=== PATIENT | female | born 1980 | race Caucasian/White ===

== ENCOUNTER 2017-10-10 15:44 | Emergency (ER) | payer MEDICAID, SELFPAY ==
[2017-10-10 15:44] VITALS: BP 142/87; PULSE 96; RESP 15; TEMP 36.3; O2SAT 99; BMI 31.6
--- NOTE | 2017-10-10 16:11 | CT_ITS ---
CT Head or Brain W/O Contrast INDICATION: MIGRAINE X2 WEEKS COMPARISON: None TECHNIQUE: Noncontrast axial CT examination of the brain. Radiation dose optimization applied. FINDINGS: The ventricular system is normal in size and symmetric. The cortical sulci, sylvian fissures, and basal cisterns are well seen. The crooks-white matter junction is distinct. There is no evidence of acute intracranial hemorrhage, mass effect, midline shift, or abnormal extra-axial collection. The calvarium is intact and the visualized paranasal sinuses and mastoid air cells are clear. CT/Brain/Head without Contrast IMPRESSION: No evidence of acute intracranial abnormality by noncontrast CT. at 1746 Reported and signed by: Марина Kirkland MD Electronically Signed: Марина Kirkland MD at 16:44 EST Tel , Service support ,
[2017-10-10] MEDS: 0.9% Normal Saline 1,000 ML 999 ML IV (16:36)
[2017-10-10] MEDS: Ketorolac 30 MG/ML Syringe IV (16:36)
--- NOTE | 2017-10-10 16:44 | ED.DCSUM_ITS ---
- ER Visit Summary Date of Service: 10/10/17 Chief Complaint: Headache History of Present Illness: The patient is a 36 F who goes to the [facility]. She reports that she has a headache began 2 weeks ago. Is gradually gotten worse. She describes a sharp, throbbing pain is diffuse over her entire head. Pain is 10 out of 10 at worst and 8 out of 10 currently. Is worsened by light or sound. It is relieved by being alone, sleep, and hot baths. When asked about recent trauma to her head patient relates that her cat jumped on her head approximately 1 week ago and she has a a scab on her scalp. Patient volunteers that she is dealing with a lot of stress. However, she denies any suicidal thoughts. On review of systems patient does complain of dysuria and frequency. Physical Examination: Vitals: Stable. Afebrile. Neck: Supple with no meningismus. Neuro: Cranial nerves II through XII are intact, 5 out of 5 strength throughout , normal sensation to light touch throughout. Normal gait. General: A&O x 3. NAD. Cardiovascular exam: Regular rate and rhythm, no murmur, rub or gallop. Respiratory exam: Clear to auscultation bilaterally. No wheezes or stridor. Abdominal exam: Soft, nontender, nondistended, normal bowel sounds. No peritoneal signs. Extremity: No clubbing, cyanosis, or edema. Test Results: Urinalysis was negative. test was negative. CT brain is normal. Emergency Department Course and Treatment: She had an IV placed. She was given a liter bolus of normal saline and Toradol IV. Her headache has improved, but not resolved. Treatment Plan: Patient will be discharged with Zofran. She already has Tylenol and naproxen at home. She is instructed to push fluids. Follow-up the [facility] in 1 week if not improving. Disposition: To home in improved and stable condition. Impression: 1. Cephalgia. This note was generated with [employer] dictation software. It may contain incorrect words, spelling, and punctuation that were not noted in review of the chart prior to signing ED Disposition - Plan for ED Patient: Chief Complaint: Headache Instructions: ED Cephalgia Unspecified Prescriptions: Ondansetron [Zofran Odt] 4 mg PO Q8H PRN PRN #10 tablet PRN Reason: Nausea Referrals: [facility],Daniela Alcazar [Primary Care Provider] - 1 Week if not improving
[2017-10-10 16:50] LABS: Bacteria 0 SEEN /hpf (None Seen); Mucous, Urine 0 SEEN /hpf (<or=2+); Red Blood Cells-Urine 0 SEEN /hpf (0-5); White Blood Cells 0 SEEN /hpf (0-5)
[2017-10-10 17:07] LABS: Color, Urine Yellow (Yellow); Glucose, Dipstick Normal (Normal); Ketone-Dipstick Negative (Negative); Leukocyte Esterase-Dipstick 25 /ul (Negative); Nitrite-Dipstick Negative (Negative); Occult Blood-Urine Negative /ul (Negative); Protein-Dipstick Negative (Negative); Urine Bilirubin Dipstick Negative (Negative); Urine Clarity Clear (Clear); Urine Urobilinogen Normal (Normal)
[2017-10-10 17:09] LABS: Internal QC Validated? YES +Cl - CLEAR BKGD; Pregnancy, Urine Negative Negative
[2017-10-10 17:16] LABS: Squamous Epithelial Cells - UA 0-5 SEEN /hpf (5-10)
[2017-10-10] MEDS: proCHLORPERazine 10 MG/2 ML Vial IV (17:37)
[2017-10-10] MEDS: DiphenhydrAMINE 50 MG/ML Syringe IV (17:37)
[2017-10-10 18:26] VITALS: PULSE 95; RESP 16; O2SAT 98
== END 2017-10-10 18:28 | disposition home or self-care (01) ==
LOC: ED 16:23
PROVIDERS: Emergency Provider Emergency Medicine
DX: R51 Headache (principal); R11.2 Nausea with vomiting, unspecified; R30.0 Dysuria; R05 Cough; R35.0 Frequency of micturition; F41.9 Anxiety disorder, unspecified; F32.9 Major depressive disorder, single episode, unspecified; F17.200 Nicotine dependence, unspecified, uncomplicated
CPT/HCPCS: 70450; 81001; 81025; 96361; 96374; 96375; 99283; J7030; A4216

== ENCOUNTER 2017-10-27 13:16 | Emergency (ER) | payer MEDICAID, SELFPAY ==
[2017-10-27 13:17] VITALS: BP 126/91; PULSE 69; RESP 14; TEMP 37.1; O2SAT 97; BMI 31.1
--- NOTE | 2017-10-27 13:31 | ED.RN ---
OTHER SYMPTOMS INCLUDE ACHY ABD PAIN, RUNNY NOSE, COUGH. 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 THINKS SYMPTOMS ARE RELATED. HAS BEEN TAKING ZOFRAN SINCE TUESDAY WHEN SYMPTOMS STARTED WITHOUT RELIEF.
--- NOTE | 2017-10-27 13:47 | ED.DCSUM_ITS ---
- ER Visit Summary Date of Service: 10/27/17 Chief Complaint: Nausea with bilateral flank pain and increased bowel movements but not diarrhea History of Present Illness: The patient is a 36 F history of depression and anxiety. Patient has never had any prior abdominal surgery. States that she has not felt well for last 4 days with a cough. Denies any shortness of breath. No hemoptysis. States that she is having bowel frequency but not diarrhea or melena. She denies any dysuria but thinks her urine may be cloudy. No vaginal bleeding or discharge. Her last menstrual period was within the last week. She denies any fever. She denies abdominal trauma. States that both flanks feeling comfortable. Physical Examination: Well-appearing young female. Vital signs are stable afebrile. Pulse ox 97% no hypoxia. She is in no acute distress. She does not look septic or toxic. H EENT exam unremarkable. Moist wheeze membranes. Posterior pharynx normal. Tympanic membranes normal. Neck nontender no lymphadenopathy. Trachea midline. Lungs clear to auscultation bilaterally. Heart is regular rate and rhythm no murmur. Abdomen is soft and nontender. Nondistended normal bowel sounds no peritoneal signs. The right upper right lower quadrants are unremarkable. No hernias or masses. Moving all 4 extremities. Neurovascularly intact. Calves without edema or cords. Neurologically awake alert without focal deficits. NIH is 0. Psychologically she seems depressed but not suicidal or homicidal. Test Results: Is normal no signs of infection or blood. Urine test negative. Emergency Department Course and Treatment: Patient looks well with very nondescript bilateral flank pain. Treatment Plan: Repeat exam the patient is doing very well at 1450 and will be discharged home. Patient did request a CAT scan which I explained to her she absolutely did not need it was not necessary. She can follow-up with her primary care physician. Disposition: Discharge Impression: Abdominal Pain uncertain etiology On chronic depression This note was generated with [employer] dictation software. It may contain incorrect words, spelling, and punctuation that were not noted in review of the chart prior to signing ED Disposition - Plan for ED Patient: Chief Complaint: Abd Pain Referrals: Katharina Baron,Daniela Alcazar [NON-STAFF] -
[2017-10-27 14:13] LABS: Bacteria 0 SEEN /hpf (None Seen); Mucous, Urine 0 SEEN /hpf (<or=2+); Red Blood Cells-Urine 0 SEEN /hpf (0-5); White Blood Cells 0 SEEN /hpf (0-5)
[2017-10-27] MEDS: Ondansetron ODT 4 MG Tablet PO (14:16)
[2017-10-27 14:17] LABS: Color, Urine Yellow (Yellow); Glucose, Dipstick Normal (Normal); Ketone-Dipstick Negative (Negative); Leukocyte Esterase-Dipstick Negative /ul (Negative); Nitrite-Dipstick Negative (Negative); Occult Blood-Urine Negative /ul (Negative); Protein-Dipstick Negative (Negative); Urine Bilirubin Dipstick Negative (Negative); Urine Clarity Clear (Clear); Urine Urobilinogen Normal (Normal)
[2017-10-27 14:24] LABS: Internal QC Validated? YES +Cl - CLEAR BKGD; Pregnancy, Urine Negative Negative
[2017-10-27 14:31] LABS: Squamous Epithelial Cells - UA 0-5 SEEN /hpf (5-10)
--- NOTE | 2017-10-27 14:52 | ED.DEP ---
ED Disposition - Plan for ED Patient: Disposition: Home or Assisted Living Chief Complaint: Abd Pain Instructions: ED Abdominal Pain Unkn Cause Referrals: Daniela Shields [NON-STAFF] - 3-5 Days if not improving Additional Instructions: Call and follow-up with your primary care physician.
== END 2017-10-27 15:02 | disposition home or self-care (01) ==
PROVIDERS: Emergency Provider Emergency Medicine; Family Provider Nurse Practitioner Family; PCP Nurse Practitioner Family
DX: R10.9 Unspecified abdominal pain (principal); K59.00 Constipation, unspecified; Z72.0 Tobacco use; F41.9 Anxiety disorder, unspecified
CPT/HCPCS: 81001; 81025; 99282

== ENCOUNTER 2017-12-14 15:30 | Emergency (ER) | payer MEDICAID, SELFPAY ==
[2017-12-14 15:31] VITALS: BP 127/82; PULSE 75; RESP 16; TEMP 36.8; O2SAT 97; BMI 30.6
[2017-12-14 17:17] LABS: Bacteria 0 SEEN /hpf (None Seen); Mucous, Urine 0 SEEN /hpf (<or=2+); Red Blood Cells-Urine 0 SEEN /hpf (0-5); White Blood Cells 0 SEEN /hpf (0-5)
[2017-12-14 17:22] LABS: Color, Urine Yellow (Yellow); Glucose, Dipstick Normal (Normal); Ketone-Dipstick Negative (Negative); Leukocyte Esterase-Dipstick Negative /ul (Negative); Nitrite-Dipstick Negative (Negative); Occult Blood-Urine Negative /ul (Negative); Protein-Dipstick Negative (Negative); Urine Bilirubin Dipstick Negative (Negative); Urine Clarity Sl. Cloudy (Clear); Urine Urobilinogen Normal (Normal)
--- NOTE | 2017-12-14 17:27 | CT_ITS ---
STUDY: CT MAXILLOFACIAL SINUSES REASON FOR EXAM: Female, 37 years old. Sinusitis. RADIATION DOSAGE (If Supplied By Facility): CTDIvol = ( 29.38 ) mGy, DLP = ( 385.84 ) mGycm TECHNIQUE: The patient was scanned in a multi detector CT scanner. High resolution axial imaging was performed without the administration of intravenous contrast material. Sagittal and coronal images were reconstructed. Individualized dose optimization techniques were used for this CT. COMPARISON: None. FINDINGS: FRONTAL SINUSES: Normal aeration, without mucosal inflammatory disease. ETHMOIDAL SINUSES: Normal aeration, without mucosal inflammatory disease. MAXILLARY SINUSES: Normal aeration, without mucosal inflammatory disease. SPHENOIDAL SINUSES: Normal aeration, without mucosal inflammatory disease. There is patency of the bilateral maxillary infundibuli with normal uncinate processes, ethmoid bullae, and hiatus semilunaris. Normal bilateral middle turbinates. There is hypertrophy of the bilateral inferior nasal turbinates. There is a right sided nasal septal deviation with a right sided nasal septal spur. There is narrowing of the bilateral nasal airways. The visualized osseous structures are normal. The visualized bilateral orbital contents are normal. There is enlargement of the tonsils and adenoids. CT/Sinus/Facial Bone IMPRESSION: The paranasal sinuses are clear. Mucosal hypertrophy of the turbinates. Nasal septal deviation. Narrowing of the nasal air passageway. Electronically Signed: Derrick James MD at 18:35 EDT , Service support ,
[2017-12-14 17:39] LABS: Squamous Epithelial Cells - UA 0-5 SEEN /hpf (5-10)
[2017-12-14] MEDS: Ketorolac 30 MG/ML Syringe IV (18:13)
[2017-12-14] MEDS: proCHLORPERazine 10 MG/2 ML Vial IV (18:13)
[2017-12-14] MEDS: DiphenhydrAMINE 50 MG/ML Syringe IV (18:13)
[2017-12-14] MEDS: 0.9% Normal Saline 1,000 ML 999 ML IV (18:14)
--- NOTE | 2017-12-14 18:54 | ED.DCSUM_ITS ---
- ER Visit Summary Date of Service: 12/14/17 Chief Complaint: Headache and nasal pain History of Present Illness: The patient is a 37 F who goes to the [facility]. Patient reports that she has pain to the bridge of her nose that began yesterday. Is a sharp, throbbing pain that has now spread over the frontal area of her head. Zeta 10 severity. Is worsened by touching it, light , or cold periods relieved by nothing. She denies any trauma. No fall or MVA. Patient reports that she is currently on Bactrim for a sinus infection. She began this after being seen at the urgent care on December 07. Physical Examination: Vitals: Stable. Afebrile. General: Well-nourished and well-developed. Head: Normocephalic atraumatic. Neck: Supple, no lymphadenopathy. No JVD. Nontender. Cardiovascular: Regular rate and rhythm. No murmurs. Respiratory: No respiratory distress. Clear to auscultation bilaterally. Abdominal: Soft, nontender, nondistended, normal bowel sounds. No guarding, rebound, or peritoneal signs. Back: Nontender. Extremities: Nontender, no edema. Skin: Normal color, no rash. Neurologic: Alert and oriented ?3. Cranial nerves II through XII are intact. Normal strength and sensation. Psych: Normal affect. Test Results: CT sinuses shows mucosal hypertrophy of the turbinates. Nasal septal deviation. Paranasal sinuses are clear. Emergency Department Course and Treatment: Patient had an IV placed. She is given a dose of Toradol, Compazine, and Benadryl IV. She is resting comfortably. Treatment Plan: I instructed the patient to stop her Bactrim as she does not have sinusitis. She will be placed on Flonase. Instructed to follow-up the [facility] in 1 week if not improving. Disposition: To home in improved and stable condition. Impression: 1. Cephalgia, acute. This note was generated with [employer] dictation software. It may contain incorrect words, spelling, and punctuation that were not noted in review of the chart prior to signing ED Disposition - Plan for ED Patient: Disposition: Home or Assisted Living Chief Complaint: Other, Pain/Inj Instructions: ED Cephalgia Unspecified Prescriptions: Fluticasone 0.05% [Flonase Nasal [place]] 1 spray NASAL DAILY #1 bottle Referrals: Mallorie Alexis, [employer] [Primary Care Provider] - 1 Week if not improving
[2017-12-14 19:18] VITALS: BP 142/66; PULSE 108; RESP 16; O2SAT 96
== END 2017-12-14 19:19 | disposition home or self-care (01) ==
PROVIDERS: Emergency Provider Emergency Medicine; Family Provider Nurse Practitioner Family; PCP Nurse Practitioner Family
DX: R51 Headache (principal); J34.3 Hypertrophy of nasal turbinates; J34.2 Deviated nasal septum; G47.33 Obstructive sleep apnea (adult) (pediatric); Z72.0 Tobacco use; R11.0 Nausea; J02.9 Acute pharyngitis, unspecified; R35.0 Frequency of micturition
CPT/HCPCS: 70486; 81001; 96361; 96374; 96375; 99283; J7030; A4216

== ENCOUNTER 2018-01-13 20:28 | Emergency (ER) | payer MEDICAID, SELFPAY ==
[2018-01-13 20:28] VITALS: BP 157/91; PULSE 98; RESP 20; TEMP 36.4; O2SAT 98; BMI 29.7
--- NOTE | 2018-01-13 21:18 | CT_ITS ---
STUDY: CT ABDOMEN AND PELVIS WITH CONTRAST REASON FOR EXAM: Female, 37 years old. Epigastric pain. Hiatal hernia. RADIATION DOSAGE (If Supplied By Facility): CTDIvol = ( 11.35 ) mGy, DLP = ( 936.02 ) mGycm TECHNIQUE: Transaxial images were obtained from the dome of the diaphragm to the symphysis pubis without oral contrast. 100 ml of Isovue 300 contrast was administered. Sagittal and coronal images were reconstructed. Individualized dose optimization techniques were used for this CT. COMPARISON: 10/25/2015. FINDINGS: The visualized lung bases are unremarkable. The visualized portions of the heart are within normal limits. There is decreased attenuation of the liver consistent with steatosis. There is hepatomegaly. Normal gallbladder and extrahepatic biliary system. Normal spleen. Normal pancreas. Normal bilateral adrenal glands. Normal right kidney. Normal left kidney. No definite renal or ureteral stones are seen. There is no hydronephrosis on either side. Evaluation of the GI tract is limited by absence of oral contrast. Cannot exclude stomach wall thickening. No dilated loops of bowel or evidence for obstruction. Cannot exclude segmental thickening of the gillette of the small or large bowel. Cannot exclude enteritis or colitis. Moderate diffuse fecal retention. Appendix within normal limits. Normal abdominal aorta. Normal inferior vena cava. Normal retroperitoneum. Normal urinary bladder. Normal visualized uterus. There is a 2.6 cm left ovarian cyst. Normal abdominal wall. Normal osseous structures. CT/Abdomen/Pelvis W IV Cont ONLY IMPRESSION: No definite acute abnormality. Electronically Signed: John Lincoln MD at 23:05 EDT , Service support ,
[2018-01-13 21:42] LABS: Absolute Lymphocyte Count 2.25 X10^3/ul (0.83-4.51); Absolute Neutrophil Count 5.5 X10^3/uL (2.0-7.7); Basophil# 0.03 X10^3/uL; Basophil% 0.3 % (0-1); Eosinophil# 0.24 X10^3/uL; Eosinophils% 2.8 % (0-5); Hematocrit 40.1 % (37-47); Hemoglobin 13.2 g/dl (12.0-15.0); Lymphocyte # 2.25 X10^3/ul (4.0); Mean Corp Hgb Conc 32.9 g/gl (32-36); Mean Corpuscular Hgb 28.6 pg (27.0-32.0); Mean Corpuscular Volume 86.8 fL (81-99); Mean Platelet Vol. 10.5 fl (6.2-12.0); Monocyte# 0.66 X10^3/uL; Monocyte% 7.6 % (0-10); Neutrophil # 5.48 X10^3/uL (2.7-7.7); Neutrophil % 63.2 % (47-70); Platelet Count 218 K/mm3 (150-450); RBC Distribution Width CV 12.8 % (11.6-14.6); Red Blood Count 4.62 M/mm3 (4.2-5.4); White Blood Count 8.7 K/mm3 (4.4-11.0)
[2018-01-13 21:45] LABS: POSITIVE COUNT NO; POSITIVE DIFFERENTIAL NO; POSITIVE MORPHOLOGY NO
[2018-01-13] MEDS: Ondansetron 4 MG/2 ML Vial IV (21:48)
[2018-01-13] MEDS: fentaNYL 100 MCG/2 ML Ampul 50 MCG IV (21:48)
[2018-01-13] MEDS: 0.9% Normal Saline 1,000 ML 1000 ML IV (21:48)
[2018-01-13 21:58] LABS: ALB/GLOB Ratio 1.2 RATIO (0.9-2.4); AST(SGOT) 21 U/L (15-37); Alanine Aminotransfer ALT/SGPT 26 U/L (13-56); Albumin, Serum 3.6 g/dL (3.2-5.0); Alkaline Phosphatase 63 U/L (45-117); Anion Gap 6 (5-15); BUN 15 mg/dL (7-18); BUN/Creat Ratio 20.2 RATIO (10-20); Calcium,Total 8.6 mg/dL (8.5-10.1); Chloride 111 mmol/L (98-107); Creatinine, Serum 0.74 mg/dL (0.55-1.02); EST Glomerular Filtration Rate 93 mL/min (>60); Est Glom Filt Rate - Afr Amer 112 mL/min (>60); Estimated Creatinine Clearance 99.26 ml/min; Globulin 3.1 g/dL (2.2-4.2); Glucose 77 mg/dL (74-106); Lipase 80 U/L (73-393); Potassium 3.5 mmol/L (3.5-5.1); Protein, Total 6.7 g/dL (6.4-8.2); Sodium Level 142 mmol/L (136-145)
[2018-01-13 22:13] LABS: Pregnancy, Serum, hCG Quali. NEGATIVE Negative (0-9 Nonpreg)
--- NOTE | 2018-01-13 23:10 | ED.DCSUM_ITS ---
- ER Visit Summary Date of Service: 01/13/18 Chief Complaint: [] Abdominal pain History of Present Illness: The patient is a 37 F [] complaining of abdominal pain in the epigastric area. Reports nausea denies vomiting denies loose stool. Patient has an unusual affect and has a slight delay in answering simple questions. Patient reports noncompliance with her psychiatric medications in the last 5 months. Patient reports she is being treated clinically for a hiatal hernia although she does not have a definitive diagnosis of this. Denies possibility of . Physical Examination: [] Afebrile, vital signs stable. 37-year-old female no acute distress. Cardiovascular exam is regular rate and rhythm. Lungs are clear to auscultation. Abdomen is soft with mild epigastric tenderness. No guarding or rebound. Remainder of exam is unremarkable. Test Results: [] CBC, BMP, LFTs within normal limits. Lipase normal. HCG serum negative. CT abdomen/pelvis with IV contrast was negative. Emergency Department Course and Treatment: [] Given intravenous Zofran, fentanyl, normal saline bolus. On serial exam patient had improvement of symptoms. Treatment Plan: [] Follow-up with PCP. Disposition: [] Discharge, stable. Impression: [] Abdominal pain, unknown etiology This note was generated with [employer] dictation software. It may contain incorrect words, spelling, and punctuation that were not noted in review of the chart prior to signing ED Disposition - Plan for ED Patient: Disposition: Home or Assisted Living Chief Complaint: Abd Pain Instructions: ED Abdominal Pain Unkn Cause Referrals: Katharina Baron,Daniela Alcazar [Primary Care Provider] -
--- NOTE | 2018-01-13 23:11 | ED.DEP ---
ED Disposition - Plan for ED Patient: Disposition: Home or Assisted Living Chief Complaint: Abd Pain Instructions: ED Abdominal Pain Unkn Cause Referrals: Daniela Shields [Primary Care Provider] -
[2018-01-13 23:23] VITALS: PULSE 102; RESP 16; O2SAT 99
== END 2018-01-13 23:34 | disposition home or self-care (01) ==
PROVIDERS: Emergency Provider Emergency Medicine
DX: R10.9 Unspecified abdominal pain (principal); R11.0 Nausea; F32.9 Major depressive disorder, single episode, unspecified; Z91.14 Patient's other noncompliance with medication regimen; Z72.0 Tobacco use
CPT/HCPCS: 74177; 80053; 83690; 84703; 85025; 96374; 96375; 99284; J7030; Q9967; A4216; J2405

== ENCOUNTER 2018-01-14 14:06 | Emergency (ER) | payer MEDICAID, SELFPAY ==
--- NOTE | 2018-01-14 14:07 | ED.RN ---
PT DEMANDED BATHROOM AND ADULT DIAPER BEFORE TRIAGE, ARRIVAL VIA EMS. ABD PAIN, SEEN HERE YESTERDAY, THINKS SHE'S CONSTIPATION. TOOK STOOL SOFTENER 1.5 HR AGO.
[2018-01-14 14:13] VITALS: BP 155/100; PULSE 72; RESP 16; TEMP 36.6; O2SAT 99; BMI 30.3
--- NOTE | 2018-01-14 14:46 | NURSING ---
DURING TRIAGE PT STATES I NEED A URINE SAMPLE AND A DIAPER PT ASSISTED TO THE BATHROOM, ADULT DIAPER GIVEN. PT INSISTS ON DOOR OPEN A TRASHCAN WIDTH WHILE USING BATHROOM. WHEN PT DONE IN BATHROOM, ASSISTED BACK TO HER ROOM BY JACKSON ONOFRE. TRIAGE CONTINUED. THROUGHOUT TRIAGE PT STATES I HAVE ANXIETY AND DEPRESSION AND AM EXTREMELY STRESSED PT REPEATED THAT STATEMENT MULTIPLE TIMES THROUGHOUT TRIAGE AND WHILE ATTEMPTING TO COMPLETE PT'S MEDICATION LIST. WHILE JACKSON ONOFRE IS CHECKING PT'S MEDICATION LIST, PT STATES I WENT OFF OF MY LEXAPRO COLD TURKEY 4 MONTHS AGO PT THEN ASKS TO GO TO THE BATHROOM. STATES WILL YOU STAND OUTSIDE OF THE DOOR THE WHOLE TIME I'M IN THERE JACKSON ONOFRE STATES YES PT THEN GOES TO THE BATHROOM, CONTINUES TO INSIST ON DOOR CRACKED WITH THE TRASHCAN. PT THEN WALKED BACK TO ROOM. UPON ENTERING THE ROOM, JACKSON ONOFRE STATES ARE YOU HAVING ANY THOUGHTS OR PLANS TO HURT YOURSELF OR ANYONE ELSE PT STATES CAN I BE HONEST? JACKSON ONOFRE STATES YES, PLEASE BE HONEST PT STATES YES, OTHER PEOPLE, I HAVE A LOT OF THOUGHTS, BUT I DON'T HAVE A PLAN JACKSON ONOFRE STATES WHY DID YOU TAKE YOURSELF OFF YOUR LEXAPRO? PT STATES I WAS GOING TO [facility]ENT[facility] TWICE A WEEK AND THOUGHT I COULD DO IT WITH GOD'S HELP
--- NOTE | 2018-01-14 15:13 | EKG12_ITS ---
Test Reason : ABDOMINAL PAIN Blood Pressure : / mmHG Vent. Rate : 073 BPM Atrial Rate : 073 BPM P-R Int : 140 ms QRS Dur : 082 ms QT Int : 400 ms P-R-T Axes : 059 043 -32 degrees QTc Int : 440 ms Normal sinus rhythm with sinus arrhythmia Nonspecific ST and T wave abnormality Abnormal ECG Confirmed by GABRIEL KHAN, KYM ([id number]), editor school photograph KIRBY BRAR ([id number]) on 01/17/2018 1:13:30 PM Referred By: CARY Confirmed By:KYM RIOS MD
[2018-01-14] MEDS: 0.9% Normal Saline 1,000 ML 1000 ML IV (15:44)
[2018-01-14] MEDS: Escitalopram Oxalate 20 MG Tablet PO (15:44)
[2018-01-14 15:52] VITALS: BP 152/79; BP 155/95; BP 164/102; PULSE 74; PULSE 78; PULSE 84
--- NOTE | 2018-01-14 15:56 | EKG12_ITS ---
Test Reason : ABDOMINAL PAIN Blood Pressure : / mmHG Vent. Rate : 098 BPM Atrial Rate : 098 BPM P-R Int : 140 ms QRS Dur : 084 ms QT Int : 372 ms P-R-T Axes : 049 022 013 degrees QTc Int : 474 ms Normal sinus rhythm with sinus arrhythmia Normal ECG Confirmed by GABRIEL KHAN, KYM ([id number]), editor & co founder KIRBY BRAR ([id number]) on 01/17/2018 1:13:45 PM Referred By: CARY Confirmed By:KYM RIOS MD
[2018-01-14 15:58] VITALS: PULSE 84
--- NOTE | 2018-01-14 16:04 | NURSING ---
dr levine aware that pt told this rn i walked in front of a semi the other day. I just dont care about the consequences. pt states that her mother yrs ago and mothers day is tomor. her dad 20 yrs ago this wk. pt states she is very stressed right now and is off meds. states he will consult crisis
[2018-01-14 16:11] LABS: Absolute Lymphocyte Count 1.43 X10^3/ul (0.83-4.51); Absolute Neutrophil Count 11.5 X10^3/uL (2.0-7.7); Basophil# 0.03 X10^3/uL; Basophil% 0.2 % (0-1); Eosinophil# 0.08 X10^3/uL; Eosinophils% 0.6 % (0-5); Hematocrit 42.2 % (37-47); Hemoglobin 13.9 g/dl (12.0-15.0); Lymphocyte # 1.43 X10^3/ul (4.0); Lymphocyte % 10.4 % (19-41); Mean Corp Hgb Conc 32.9 g/gl (32-36); Mean Corpuscular Hgb 28.6 pg (27.0-32.0); Mean Corpuscular Volume 86.8 fL (81-99); Monocyte# 0.66 X10^3/uL; Monocyte% 4.8 % (0-10); Neutrophil % 83.8 % (47-70); Platelet Count 259 K/mm3 (150-450); RBC Distribution Width CV 12.9 % (11.6-14.6); Red Blood Count 4.86 M/mm3 (4.2-5.4); White Blood Count 13.7 K/mm3 (4.4-11.0)
[2018-01-14 16:12] LABS: POSITIVE COUNT NO; POSITIVE DIFFERENTIAL NO; POSITIVE MORPHOLOGY NO
[2018-01-14 16:16] LABS: ALB/GLOB Ratio 1.2 RATIO (0.9-2.4); AST(SGOT) 23 U/L (15-37); Alanine Aminotransfer ALT/SGPT 32 U/L (13-56); Albumin, Serum 4.1 g/dL (3.2-5.0); Alkaline Phosphatase 71 U/L (45-117); Anion Gap 9 (5-15); BUN 8 mg/dL (7-18); BUN/Creat Ratio 10.4 RATIO (10-20); Chloride 108 mmol/L (98-107); Creatinine, Serum 0.77 mg/dL (0.55-1.02); EST Glomerular Filtration Rate 89 mL/min (>60); Est Glom Filt Rate - Afr Amer 107 mL/min (>60); Estimated Creatinine Clearance 95.39 ml/min; Globulin 3.5 g/dL (2.2-4.2); Glucose 89 mg/dL (74-106); Lipase 78 U/L (73-393); Potassium 3.8 mmol/L (3.5-5.1); Protein, Total 7.6 g/dL (6.4-8.2); Sodium Level 142 mmol/L (136-145)
[2018-01-14 16:23] LABS: Pregnancy, Serum, hCG Quali. NEGATIVE Negative (0-9 Nonpreg)
[2018-01-14 16:25] LABS: Bacteria 0 SEEN /hpf (None Seen); Color, Urine Yellow (Yellow); Glucose, Dipstick Normal (Normal); Ketone-Dipstick Negative (Negative); Leukocyte Esterase-Dipstick Negative /ul (Negative); Mucous, Urine 0 SEEN /hpf (<or=2+); Nitrite-Dipstick Negative (Negative); Occult Blood-Urine Negative /ul (Negative); Protein-Dipstick Negative (Negative); Red Blood Cells-Urine 0 SEEN /hpf (0-5); Specific Gravity, Urine 1.005 (1.002-1.030); Urine Bilirubin Dipstick Negative (Negative); Urine Clarity Clear (Clear); Urine Urobilinogen Normal (Normal); White Blood Cells 0 SEEN /hpf (0-5)
[2018-01-14 16:29] LABS: Amphetamine Urine VISTA NEGATIVE (<1000 ng/mL); Barbiturate Urine VISTA NEGATIVE (< 200 ng/mL); Benzodiazepine Urine VISTA NEGATIVE (< 200 ng/mL); Cocaine Urine VISTA NEGATIVE (< 300 ng/mL); Ecstacy Urine VISTA NEGATIVE (< 500 ng/mL); Methadone Urine VISTA NEGATIVE (< 300 ng/mL); PCP Urine VISTA NEGATIVE (< 25 ng/mL); THC Urine VISTA NEGATIVE (< 50 ng/mL); Vista UDS pH Range 5
[2018-01-14 16:32] LABS: Squamous Epithelial Cells - UA 0-5 SEEN /hpf (5-10)
[2018-01-14 16:44] LABS: Alcohol, Blood (Medical)-Serum < 3.0 mg/dL
[2018-01-14 17:02] VITALS: BP 143/80; PULSE 78; RESP 16; O2SAT 100
--- NOTE | 2018-01-14 17:30 | RAD_ITS ---
STUDY: X-RAY CHEST REASON FOR EXAM: Female, 37 years old. Abdominal pain. TECHNIQUE: Frontal and lateral views of the chest. COMPARISON: 06/26/2016. FINDINGS: The lungs are clear and expanded. There is no demonstrated pleural abnormality. Normal size heart. Normal mediastinum and jennifer. Normal visualized pulmonary arteries. Normal visualized aortic arch and descending thoracic aorta. Normal visualized thoracic spine. Normal visualized ribs, clavicles, and shoulders. There is no demonstrated abnormality of the visualized soft tissue structures of the upper abdomen. RAD/Chest PA and Lateral IMPRESSION: Normal x-ray examination of the chest. Electronically Signed: John Lincoln MD at 18:16 EDT , Service support ,
[2018-01-14] MEDS: Naproxen 500 MG Tablet PO (18:18)
--- NOTE | 2018-01-14 18:44 | ED.DCSUM_ITS ---
- ER Visit Summary Date of Service: 01/14/18 Chief Complaint: Lightheaded and dizzy History of Present Illness: The patient is a 37 F who presents with lightheadedness and dizziness. She was also seen yesterday for abdominal pain and nausea. She had laboratory studies and a CT at that time which were normal. History is difficult as the patient is very tangential. She also complains of significantly increased stress and anxiety and believes that this may be contributing to her symptoms. She complains of intermittent diarrhea and constipation. She notes that she is taking her Lexapro. She states that she was placed on treatment for a hiatal hernia recently. Physical Examination: Afebrile vitals are unremarkable Moist mucous membranes Heart regular rate and rhythm Lungs are clear Abdomen soft nondistended she has some mild diffuse tenderness Alert and oriented with no focal or lateralizing neurological deficits Patient has a bizarre affect Test Results: EKG shows sinus rhythm at a rate of 98. Chest x-ray is normal. CBC CMP lipase urinalysis notable only for white blood cell count 13.7. Alcohol negative. Drug screen negative. negative. Emergency Department Course and Treatment: Patient was exhibiting bizarre behavior. She asked for an adult diaper on arrival. When she went to the restroom with an open door to the hallway she would not allow the door to be closed completely and held this open with a trash can. She is very tangential in her history. I do believe there is a psychiatric component to her physical symptoms. The patient actually was in agreement with this and notes that she has been under significantly increased stress which she believes is contributing. She has been noncompliant with her Lexapro. She does have a leukocytosis today. However she is not febrile or tachycardic. Urinalysis was normal chest x-ray was normal. She has benign abdominal exam and had a CT of the abdomen yesterday. She also told the nurse that she was suicidal and a couple of days ago walked out in front of a semitruck. We will have crisis evaluate the patient. I do believe she will require transfer to a psychiatric facility. Treatment Plan: [] Disposition: Transfer pending crisis evaluation Impression: Dizziness Depression Suicidal ideation This note was generated with [employer] software. It may contain incorrect words, spelling, and punctuation that were not noted in review of the chart prior to signing ED Disposition - Plan for ED Patient: Chief Complaint: Abd Pain Referrals: Katharina Baron,Daniela Alcazar [Primary Care Provider] -
--- NOTE | 2018-01-14 19:00 | ED.RN ---
CALLED [facility], THE CONCRETE ANALYST STATED SHE WILL GIVE THE BOILERMAKER'S ASSISTANT STAFF A CALL.
--- NOTE | 2018-01-14 19:06 | ED.RN ---
DELLA FROM [facility] CALLED AND STATED HE WILL BE HERE SHORTLY.
--- NOTE | 2018-01-14 19:45 | ED.RN ---
CHERELLE FROM [facility] IS HERE.
--- NOTE | 2018-01-14 20:24 | ED.DEP ---
ED Disposition - Plan for ED Patient: Chief Complaint: Abd Pain Instructions: ED Depression, ED Stress React Referrals: [facility],Daniela Alcazar [Primary Care Provider] - Counseling,Center [GROUP OF PHYSICIANS] -
[2018-01-14 20:37] VITALS: BP 149/98; PULSE 77; RESP 16
== END 2018-01-14 20:38 | disposition home or self-care (01) ==
PROVIDERS: Emergency Provider Emergency Medicine
DX: R42 Dizziness and giddiness (principal); R45.851 Suicidal ideations; F32.9 Major depressive disorder, single episode, unspecified; F41.9 Anxiety disorder, unspecified; K59.00 Constipation, unspecified; R19.7 Diarrhea, unspecified; R11.0 Nausea; R10.9 Unspecified abdominal pain; Z72.0 Tobacco use; Z91.14 Patient's other noncompliance with medication regimen
CPT/HCPCS: 71046; 80053; 80307; 80320; 81001; 83690; 84703; 85025; 93005; 96360; 96361; 99285; J7030; G0480

== ENCOUNTER 2018-01-30 17:20 | Emergency (ER) | payer MEDICAID, SELFPAY ==
[2018-01-30 17:27] VITALS: BP 141/87; PULSE 91; RESP 14; TEMP 36.4; O2SAT 99; BMI 29.7
--- NOTE | 2018-01-30 17:52 | ED.VISSUMM ---
- ER Visit Summary Date of Service: 01/30/18 Chief Complaint: Heat Exhaustion History of Present Illness: The patient is a 37 F with concern for heat exhaustion. Patient states that her apartment is very very hot over the past 2 days. She states that she has been lightheaded and dizzy. She has had 3 episodes of diarrhea. She has also had some mild abdominal cramping. She does describe some mild nausea. She states she has never had symptoms like this before. She denies headache or visual change. She denies any recent change in medication. She denies any recent sick contacts. She has had no chest pain or trouble breathing. Physical Examination: Vital signs reviewed General: Well-nourished, well-developed Head: Normocephalic, atraumatic Eyes: Pupils equal and reactive, extraocular muscles intact Neck, supple, no lymphadenopathy Heart: Regular rate and rhythm Respiratory: No distress, clear bilaterally Abdomen: Soft, nontender, nondistended, no peritoneal signs Back: Nontender Extremities: Nontender, no edema, no cords Skin: Normal color no rash Neuro: Alert and oriented, no focal or lateralizing deficits Test Results: [] Emergency Department Course and Treatment: The patient had no mental status change. Patient was sent that she is not febrile here. She has a normal examination. I did obtain screening labs and she was hydrated. She declined antiemetics. Labs are unremarkable. The patient is improved after hydration. She will be discharged home. Treatment Plan: [] Disposition: Charge Impression: 1. Heat illness This note was generated with [employer] dictation software. It may contain incorrect words, spelling, and punctuation that were not noted in review of the chart prior to signing ED Disposition - Plan for ED Patient: Disposition: Home or Assisted Living Chief Complaint: Nausea/Vomiting/Diarrhea Instructions: ED Exhaustion Heat Referrals: Katharina Baron,Daniela Alcazar [NON-STAFF] -
[2018-01-30] MEDS: 0.9% Normal Saline 1,000 ML 1000 ML IV (18:24)
[2018-01-30 18:27] LABS: Absolute Lymphocyte Count 1.47 X10^3/ul (0.83-4.51); Absolute Neutrophil Count 8.1 X10^3/uL (2.0-7.7); Basophil# 0.03 X10^3/uL; Basophil% 0.3 % (0-1); Eosinophil# 0.19 X10^3/uL; Eosinophils% 1.8 % (0-5); Hematocrit 44.5 % (37-47); Lymphocyte # 1.47 X10^3/ul (4.0); Lymphocyte % 14.1 % (19-41); Mean Corp Hgb Conc 33.7 g/gl (32-36); Mean Corpuscular Hgb 29.2 pg (27.0-32.0); Mean Corpuscular Volume 86.7 fL (81-99); Monocyte# 0.59 X10^3/uL; Monocyte% 5.7 % (0-10); Neutrophil # 8.14 X10^3/uL (2.7-7.7); Platelet Count 222 K/mm3 (150-450); RBC Distribution Width SD 40.7 fl (35.1-43.9); Red Blood Count 5.13 M/mm3 (4.2-5.4); White Blood Count 10.4 K/mm3 (4.4-11.0)
[2018-01-30 18:28] LABS: POSITIVE COUNT NO; POSITIVE DIFFERENTIAL NO; POSITIVE MORPHOLOGY NO
[2018-01-30 18:45] LABS: Anion Gap 6 (5-15); BUN 9 mg/dL (7-18); BUN/Creat Ratio 10.5 RATIO (10-20); Calcium,Total 9.3 mg/dL (8.5-10.1); Chloride 107 mmol/L (98-107); Creatinine, Serum 0.85 mg/dL (0.55-1.02); EST Glomerular Filtration Rate 79 mL/min (>60); Est Glom Filt Rate - Afr Amer 95 mL/min (>60); Estimated Creatinine Clearance 86.41 ml/min; Glucose 92 mg/dL (74-106); Potassium 4.1 mmol/L (3.5-5.1); Sodium Level 138 mmol/L (136-145)
[2018-01-30 19:41] VITALS: PULSE 88; RESP 16
== END 2018-01-30 19:41 | disposition home or self-care (01) ==
LOC: ED 18:38
PROVIDERS: Emergency Provider Emergency Medicine; Family Provider Nurse Practitioner Family; PCP Nurse Practitioner Family
DX: T67.8XXA Other effects of heat and light, initial encounter (principal); Z72.0 Tobacco use; Z79.899 Other long term (current) drug therapy
CPT/HCPCS: 80048; 85025; 99285; J7030

== ENCOUNTER 2018-02-01 17:55 | Emergency (ER) | payer MEDICAID, SELFPAY ==
[2018-02-01 17:57] VITALS: BP 115/75; PULSE 83; RESP 14; TEMP 36.6; O2SAT 97; BMI 30.4
--- NOTE | 2018-02-01 18:26 | EKG12_ITS ---
Test Reason : SOB Blood Pressure : / mmHG Vent. Rate : 074 BPM Atrial Rate : 074 BPM P-R Int : 150 ms QRS Dur : 084 ms QT Int : 392 ms P-R-T Axes : 058 033 015 degrees QTc Int : 435 ms Normal sinus rhythm Normal ECG Confirmed by MESSI BELLO ([id number]), editor city KIRBY BRAR ([id number]) on 02/13/2018 5:34:34 PM Referred By: STEPHANIE Confirmed By:MESSI BELLO
--- NOTE | 2018-02-01 18:28 | ED.VISSUMM ---
- ER Visit Summary Date of Service: 02/01/18 Chief Complaint: Short of breath History of Present Illness: The patient is a 37 F with shortness of breath for several days. The patient says she also feels exhausted and lightheaded. She says she was in the ED 2 days ago for heat exhaustion and received IV fluids. She also says she stopped her antidepressants last week. She denies any suicidal or homicidal thoughts. Physical Examination: Afebrile and vital signs unremarkable. Patient has a depressed mood and blunted affect. Alert and oriented. Normal concentration and thought processes. Head and neck atraumatic. Cranial nerves grossly intact. No focal or lateralizing neurologic abnormalities grossly. Heart regular. Lungs show wheezing in all carballo. Abdomen soft. Skin appears normal. No rash. Test Results: EKG and chest x-ray pending. Emergency Department Course and Treatment: Patient had an inconsistent history and multiple complaints. She did have some wheezing and so I will check an EKG and chest x-ray. She was given a breathing treatment. I suspect that some of her symptoms may be from discontinuing her antidepressant treatment last week. She says she stopped this because she had a rash on her legs. That rash has resolved. Patient denies that her discontinuation is playing a role in her symptoms. I was subsequently notified that the patient had called the crisis counselor. They had recommended outpatient follow-up. She said that she did not want to wait for outpatient follow-up and told them that she was coming to the emergency department so that she could see someone today. She was told that this was not appropriate. I will thoroughly evaluate her, but I suspect that there is an aspect of secondary gain. EKG showed sinus rhythm at a rate of 74. No acute abnormalities. Chest x-ray showed no acute abnormalities. Patient will be treated with a course of Zyrtec for allergic rhinitis. I advised her to follow-up with her crisis counselor. Return for any suicidal or homicidal thoughts. Treatment Plan: As above Disposition: Discharge Impression: 1. Allergic rhinitis 2. Medication nonadherence This note was generated with [employer] software. It may contain incorrect words, spelling, and punctuation that were not noted in review of the chart prior to signing ED Disposition - Plan for ED Patient: Chief Complaint: Shortness of Breath Referrals: Mallorie Alexis NP-C [Primary Care Provider] -
--- NOTE | 2018-02-01 18:30 | RAD_ITS ---
STUDY: X-RAY CHEST REASON FOR EXAM: Female, 37 years old. Shortness of breath TECHNIQUE: Single frontal view COMPARISON: January 14, 2018 FINDINGS: The lungs are clear and expanded. There is no demonstrated pleural abnormality. Normal size heart. Normal mediastinum and jennifer. Normal visualized pulmonary arteries. Normal visualized aortic arch and descending thoracic aorta. Normal visualized thoracic spine. Normal visualized ribs, clavicles, and shoulders. There is no demonstrated abnormality of the visualized soft tissue structures of the upper abdomen. RAD/Chest 1 View (Portable) IMPRESSION: Normal x-ray examination of the chest. Electronically Signed: Tommie Hay DO at 19:26 EDT Tel [phone], Service support ,
[2018-02-01] MEDS: hydrOXYzine PAM 25 MG Capsule PO (18:40)
[2018-02-01 18:49] VITALS: PULSE 76; RESP 12
[2018-02-01] MEDS: Ipratropium/Albuterol Sulfate 3 ML AMPUL.NEB INHALATION (18:49)
--- NOTE | 2018-02-01 20:04 | ED.DEP ---
ED Disposition - Plan for ED Patient: Chief Complaint: Shortness of Breath Instructions: Allergy Medications Prescriptions: Cetirizine HCl [Zyrtec] 10 mg PO DAILY #30 tab Referrals: Mallorie Alexis NP-C [Primary Care Provider] - Additional Instructions: follow up with crisis counselor
[2018-02-01 20:24] VITALS: RESP 18
== END 2018-02-01 20:24 | disposition home or self-care (01) ==
LOC: ED 18:22
PROVIDERS: Emergency Provider Emergency Medicine; Family Provider Nurse Practitioner Family; PCP Nurse Practitioner Family
DX: J30.9 Allergic rhinitis, unspecified (principal); Z91.14 Patient's other noncompliance with medication regimen; F41.9 Anxiety disorder, unspecified; F32.9 Major depressive disorder, single episode, unspecified; Z72.0 Tobacco use
CPT/HCPCS: 71045; 93005; 94640; 99283

== ENCOUNTER 2018-02-03 16:22 | Emergency (ER) | payer MEDICAID, SELFPAY ==
[2018-02-03 16:23] VITALS: BP 150/92; PULSE 85; RESP 16; TEMP 36.7; O2SAT 98; BMI 31.2
--- NOTE | 2018-02-03 16:54 | EKG12_ITS ---
Test Reason : DIZZINESS Blood Pressure : / mmHG Vent. Rate : 076 BPM Atrial Rate : 076 BPM P-R Int : 156 ms QRS Dur : 084 ms QT Int : 386 ms P-R-T Axes : 059 022 004 degrees QTc Int : 434 ms Normal sinus rhythm with sinus arrhythmia Normal ECG Confirmed by MESSI BELLO ([id number]), video news editor KIRBY BRAR ([id number]) on 02/13/2018 6:13:20 PM Referred By: SHWETA Confirmed By:MESSI BELLO
[2018-02-03 17:08] LABS: Bacteria 0 SEEN /hpf (None Seen); Mucous, Urine 0 SEEN /hpf (<or=2+); White Blood Cells 0 SEEN /hpf (0-5)
[2018-02-03 17:11] LABS: Color, Urine Yellow (Yellow); Glucose, Dipstick Normal (Normal); Ketone-Dipstick Negative (Negative); Leukocyte Esterase-Dipstick Negative /ul (Negative); Nitrite-Dipstick Negative (Negative); Occult Blood-Urine 25 /ul (Negative); Protein-Dipstick Negative (Negative); Specific Gravity, Urine 1.005 (1.002-1.030); Urine Bilirubin Dipstick Negative (Negative); Urine Clarity Sl. Cloudy (Clear); Urine Urobilinogen Normal (Normal); Urine pH 6.5 (5.0 - 8.0)
[2018-02-03 17:17] VITALS: BP 118/76; BP 130/84; BP 131/88; PULSE 67; PULSE 71; PULSE 77; RESP 12; O2SAT 99
[2018-02-03] MEDS: 0.9% Normal Saline 1,000 ML 1000 ML IV (17:21)
[2018-02-03 17:22] LABS: Internal QC Validated? YES +Cl - CLEAR BKGD; Pregnancy, Urine Negative Negative
[2018-02-03 17:27] LABS: Bedside Glucose 82 mg/dL (70-110)
[2018-02-03 17:28] LABS: Red Blood Cells-Urine 0-5 SEEN /hpf (0-5); Squamous Epithelial Cells - UA 0-5 SEEN /hpf (5-10)
[2018-02-03 17:29] LABS: Amorphous Sediment 1+ URATE
[2018-02-03 17:32] LABS: Absolute Lymphocyte Count 1.66 X10^3/ul (0.83-4.51); Absolute Neutrophil Count 6.4 X10^3/uL (2.0-7.7); Basophil# 0.03 X10^3/uL; Basophil% 0.3 % (0-1); Eosinophil# 0.24 X10^3/uL; Eosinophils% 2.7 % (0-5); Hematocrit 42.1 % (37-47); Hemoglobin 13.9 g/dl (12.0-15.0); Lymphocyte # 1.66 X10^3/ul (4.0); Lymphocyte % 18.7 % (19-41); Mean Corpuscular Hgb 28.6 pg (27.0-32.0); Mean Corpuscular Volume 86.6 fL (81-99); Mean Platelet Vol. 10.7 fl (6.2-12.0); Monocyte# 0.58 X10^3/uL; Monocyte% 6.5 % (0-10); Neutrophil # 6.35 X10^3/uL (2.7-7.7); Neutrophil % 71.6 % (47-70); POSITIVE COUNT NO; POSITIVE DIFFERENTIAL NO; POSITIVE MORPHOLOGY NO; Platelet Count 222 K/mm3 (150-450); RBC Distribution Width CV 12.6 % (11.6-14.6); RBC Distribution Width SD 40.6 fl (35.1-43.9); Red Blood Count 4.86 M/mm3 (4.2-5.4); White Blood Count 8.9 K/mm3 (4.4-11.0)
[2018-02-03 17:54] LABS: AST(SGOT) 10 U/L (15-37); Alanine Aminotransfer ALT/SGPT 19 U/L (13-56); Albumin, Serum 3.8 g/dL (3.2-5.0); Alkaline Phosphatase 76 U/L (45-117); Anion Gap 8 (5-15); BUN 11 mg/dL (7-18); BUN/Creat Ratio 14.1 RATIO (10-20); Bilirubin, Direct 0.09 mg/dL (0.00-0.30); Calcium,Total 8.9 mg/dL (8.5-10.1); Chloride 108 mmol/L (98-107); Creatinine, Serum 0.78 mg/dL (0.55-1.02); EST Glomerular Filtration Rate 87 mL/min (>60); Est Glom Filt Rate - Afr Amer 105 mL/min (>60); Estimated Creatinine Clearance 94.17 ml/min; Globulin 3.5 g/dL (2.2-4.2); Glucose 83 mg/dL (74-106); Lipase 122 U/L (73-393); Potassium 3.8 mmol/L (3.5-5.1); Protein, Total 7.3 g/dL (6.4-8.2); Sodium Level 142 mmol/L (136-145)
[2018-02-03 18:54] LABS: Internal QC Validated? YES +Cl - CLEAR BKGD; Monotest Negative (Negative)
[2018-02-03 18:55] LABS: Record Kit Lot#, Mono 13171517
--- NOTE | 2018-02-03 18:58 | ED.VISSUMM ---
- ER Visit Summary Date of Service: 02/03/18 Chief Complaint: Lightheaded History of Present Illness: The patient is a 37 F who states she has been lightheaded for the past 5 days. He was initially thought to be secondary to the heat. Patient has been drinking more fluids without improvement. She is also complaining of upper abdominal pain and nausea. She has had a cough for the last 1 month with white sputum. Patient was also on Lexapro for approximately 10 days but then developed a rash. She stopped her medications 7 days ago. Patient has been seen in the ER twice in the last week with similar complaints. Laboratory evaluation was unremarkable. Physical Examination: Blood pressure is 150/92, otherwise vitals are normal. Patient is sitting upright in bed. She makes poor eye contact and has a flat affect. Heart is regular rate and rhythm. Lung sounds are clear. Abdomen is soft with focal tenderness in epigastric region. She is active bowel sounds throughout. There is no guarding or rebound. Neuro exam reveals no focal deficits with good strength and sensation on testing. Test Results: EKG is sinus at 76 with no sign of acute ischemia. CBC and chemistry studies are normal. LFTs and lipase are normal. Urine is normal. Patency test negative. Bourbon screen is negative. Emergency Department Course and Treatment: Patient was given fluids. Orthostatic vital signs were ordered. Nursing staff states that she felt lightheaded when standing, but her orthostatic vital signs are unremarkable. On repeat evaluation she is tolerating p.o. I explained to her that I am unable to explain why she is feeling lightheaded, but her vital signs and workup have been unremarkable. She is complaining of epigastric pain and states that the color of her stool has changed recently. She has been on Pepcid for quite some time. She will be treated with Prevacid instead to see if that helps her epigastric pain. She is encouraged to follow-up with her primary care physician. Treatment Plan: [] Disposition: Discharge Impression: Dizziness, uncertain etiology This note was generated with [employer] dictation software. It may contain incorrect words, spelling, and punctuation that were not noted in review of the chart prior to signing ED Disposition - Plan for ED Patient: Chief Complaint: General Illness Referrals: Mallorie Alexis NP-C [Primary Care Provider] -
--- NOTE | 2018-02-03 19:00 | ED.DEP ---
ED Disposition - Plan for ED Patient: Disposition: Home or Assisted Living Chief Complaint: General Illness Instructions: ED Dizziness [facility] Prescriptions: Lansoprazole [Prevacid] 15 mg PO DAILY #30 capsule Referrals: Mallorie Alexis NONFARM ANIMAL CARETAKER-C [Primary Care Provider] - As soon as possible
[2018-02-03 19:06] VITALS: BP 133/80; PULSE 78; RESP 16; O2SAT 100
== END 2018-02-03 19:11 | disposition home or self-care (01) ==
PROVIDERS: Emergency Provider Emergency Medicine; Family Provider Nurse Practitioner Family; PCP Nurse Practitioner Family
DX: R42 Dizziness and giddiness (principal); K21.9 Gastro-esophageal reflux disease without esophagitis; Z72.0 Tobacco use
CPT/HCPCS: 36415; 80048; 80076; 81001; 81025; 82962; 83690; 85025; 86308; 93005; 96360; 96361; 99285; J7030; A4216

== ENCOUNTER 2018-03-03 04:52 | Emergency (ER) | payer MEDICAID, SELFPAY ==
[2018-03-03 04:55] VITALS: O2SAT 98
[2018-03-03 04:56] VITALS: BP 138/85; PULSE 78; RESP 18; TEMP 36.6; O2SAT 98; BMI 32.1
--- NOTE | 2018-03-03 05:06 | RAD_ITS ---
STUDY: X-RAY CHEST REASON FOR EXAM: Female, 37 years old. Cough TECHNIQUE: Frontal and lateral views of the chest. COMPARISON: None. FINDINGS: The lungs are clear and expanded. There is no demonstrated pleural abnormality. Normal size heart. Normal mediastinum and jennifer. Normal visualized pulmonary arteries. Normal visualized aortic arch and descending thoracic aorta. Normal visualized thoracic spine. Normal visualized ribs, clavicles, and shoulders. There is no demonstrated abnormality of the visualized soft tissue structures of the upper abdomen. RAD/Chest PA and Lateral IMPRESSION: Normal x-ray examination of the chest. Electronically Signed: Cedric Hou MD at 6:44 EDT Tel , Service support ,
--- NOTE | 2018-03-03 05:11 | ED.VISSUMM ---
- ER Visit Summary Date of Service: 03/03/18 Chief Complaint: Cough History of Present Illness: The patient is a 37 F 2 week history of productive cough. No fevers. Denies sick contacts. Tobacco history. Wheezing. No history of asthma or COPD. Seasonal allergies that causes wheezing. Does have an inhaler. States symptoms not improving therefore get tired of it and came here. She is brought by EMS. Denies vomiting. This evening states drinks 3 beers earlier, around midnight took Tessalon Perles. States concern of the mixture. History of chronic back pain with sciatica. States takes naproxen. History of reflux on medications. Denies vomiting or melena. Patient ambulated into the ED from EMS. Physical Examination: General: Alert and oriented ?3, no acute distress HEENT: Normocephalic, atraumatic. Moist mucosa membranes Neck: supple, nontender. Cardiovascular: Regular rate and rhythm, no murmurs Respiratory: Mild expiratory wheeze on the right side, no distress, no rales or rhonchi. Abdomen: Soft, nontender, nondistended Extremities: Nontender, no edema, pulses intact ?4 Neuro: no focal neurological deficits. Test Results: Chest x-ray: No acute process Emergency Department Course and Treatment: Patient vitals stable. Mild wheeze on exam, DuoNeb treatment improved her symptoms. Chest x-ray negative. Discussed viral syndrome. Tobacco cessation discussed. Patient no respiratory depression on evaluation for concerns of her alcohol and Tessalon intake. She is reassured. Discussed with patient follow-up with her PCP for reevaluation. All questions were answered. Treatment Plan: [] Disposition: Discharge Impression: Viral upper respiratory infection This note was generated with [employer] dictation software. It may contain incorrect words, spelling, and punctuation that were not noted in review of the chart prior to signing ED Disposition - Plan for ED Patient: Disposition: Home or Assisted Living Chief Complaint: Cough Diagnosis: Viral upper respiratory tract infection with cough Instructions: ED Upper Resp Infec No Abx Tx Prescriptions: Albuterol Inhaler [Ventolin Hfa] 1 - 2 puff INHALATION Q4H PRN PRN #1 inhaler PRN Reason: Wheezing Referrals: Mallorie Alexis NP-C [Primary Care Provider] - 3-5 Days
[2018-03-03] MEDS: Ipratropium/Albuterol Sulfate 3 ML AMPUL.NEB INHALATION (05:13)
[2018-03-03 05:16] VITALS: PULSE 95; RESP 20
[2018-03-03 06:22] VITALS: RESP 18
== END 2018-03-03 06:23 | disposition home or self-care (01) ==
PROVIDERS: Emergency Provider Emergency Medicine; Family Provider Nurse Practitioner Family; PCP Nurse Practitioner Family
DX: J06.9 Acute upper respiratory infection, unspecified (principal); K21.9 Gastro-esophageal reflux disease without esophagitis; G47.33 Obstructive sleep apnea (adult) (pediatric); G89.29 Other chronic pain; M54.30 Sciatica, unspecified side; Z72.0 Tobacco use
CPT/HCPCS: 71046; 94640; 99284

== ENCOUNTER 2018-03-12 21:56 | Emergency (ER) | payer MEDICAID, SELFPAY ==
[2018-03-12 22:02] VITALS: BP 120/69; PULSE 75; RESP 14; TEMP 36.6; O2SAT 98; BMI 33.5
--- NOTE | 2018-03-12 22:30 | RAD_ITS ---
STUDY: X-RAY CHEST REASON FOR EXAM: Female, 37 years old. Shortness of breath TECHNIQUE: Frontal view of the chest COMPARISON: 03/03/2018 FINDINGS: The lungs are clear. There are no pleural effusions. There is no pneumothorax. The heart is normal in size. The visualized osseous structures are within normal limits. RAD/Chest 1 View (Portable) IMPRESSION: No acute thoracic pathology. Electronically Signed: Karson Vieira, at 22:39 EDT Tel , Service support ,
--- NOTE | 2018-03-12 22:45 | RAD_ITS ---
STUDY: X-RAY - PELVIS AND LEFT HIP REASON FOR EXAM: Female, 37 years old. Pain, no known injury TECHNIQUE: Radiological exam, hip, unilateral, with pelvis when performed; 2 or 3 views. COMPARISON: None. FINDINGS: There is a non-specific bowel gas pattern. Normal visualized soft tissue structures. Normal bilateral iliac wings, sacroiliac joints and visualized sacrum. Normal bilateral superior and inferior pubic rami. Normal pubic symphysis. Normal bilateral ischial tuberosities. Normal visualized femoral head. Normal acetabulum. Normal hip joint. RAD/Hip 2-3 Views with Pelvis IMPRESSION: Normal x-ray examination of the pelvis and hip. Electronically Signed: Job Cao MD at 23:23 EDT , Service support ,
[2018-03-12 22:50] VITALS: RESP 16; O2SAT 98
--- NOTE | 2018-03-12 22:54 | ED.RN ---
PT RETURNS TO WAITING ROOM FROM RADIOLOGY. PT GIVEN ICE PACK FOR HIP AND TISSUES REQUESTED. WILL CONTINUE TO MONITOR.
--- NOTE | 2018-03-13 00:15 | DCINST.ED_ITS ---
ED Disposition - Plan for ED Patient: Chief Complaint: Shortness of Breath Instructions: ED Sciatica Prescriptions: Benzonatate [Tessalon Perle] 200 mg PO TID PRN PRN #20 capsule PRN Reason: Cough Cyclobenzaprine [Flexeril] 10 mg PO TID PRN #20 tablet PRN Reason: Muscle Spasm Referrals: Mallorie Alexis, FILER METAL PATTERNS-C [Primary Care Provider] -
[2018-03-13 00:24] VITALS: BP 131/82; PULSE 75; RESP 16; O2SAT 99
--- NOTE | 2018-03-13 06:23 | ED.VISSUMM ---
- ER Visit Summary Date of Service: 03/13/18 Chief Complaint: Left hip pain History of Present Illness: The patient is a 37 F presenting with left hip pain. She states this has been ongoing for the past 2 weeks. She has seen a chiropractor and states that is not helping. She states her chiropractor told her that her hip was out of place. She has been taking naproxen at home. Pain is in her left lower back radiating to her left hip. She has had no bowel or bladder incontinence. No numbness or weakness. No fever. She states she has also had a cough for the past week. She states she is wheezing in the morning only. She has a history of seasonal allergies. She denies other complaints. Physical Examination: Vitals are stable. Patient is afebrile. Alert no acute distress. HEENT exam is unremarkable. Neck is supple. Lungs are clear and equal bilaterally. Heart is regular rate and rhythm. Extremities left lumbar paraspinal muscle tenderness, straight leg raise positive at 30? on the left Skin is warm and dry. No focal neurologic deficit. Normal strength and sensation Remainder of exam is unremarkable. Emergency Department Course and Treatment: Patient declined pain medication in the emergency department. X-ray of the chest and left hip show no acute process. She is given a prescription for Flexeril and advised to continue naproxen. She is given Tessalon. Advised to follow-up with her primary care physician. Advised return to ED if worsening complaints. Disposition: Discharge home Impression: Sciatica, viral syndrome This note was generated with [employer] dictation software. It may contain incorrect words, spelling, and punctuation that were not noted in review of the chart prior to signing ED Disposition - Plan for ED Patient: Disposition: Home or Assisted Living Chief Complaint: Shortness of Breath Instructions: ED Sciatica Prescriptions: Benzonatate [Tessalon Perle] 200 mg PO TID PRN PRN #20 capsule PRN Reason: Cough Cyclobenzaprine [Flexeril] 10 mg PO TID PRN #20 tablet PRN Reason: Muscle Spasm Referrals: Mallorie Alexis, CLERICAL WAREHOUSEMAN-C [Primary Care Provider] -
--- NOTE | 2018-03-13 06:26 | ED.DCSUM_ITS ---
- ER Visit Summary Date of Service: 03/13/18 Chief Complaint: Left hip pain History of Present Illness: The patient is a 37 F presenting with left hip pain. She states this has been ongoing for the past 2 weeks. She has seen a chiropractor and states that is not helping. She states her chiropractor told her that her hip was out of place. She has been taking naproxen at home. Pain is in her left lower back radiating to her left hip. She has had no bowel or bladder incontinence. No numbness or weakness. No fever. She states she has also had a cough for the past week. She states she is wheezing in the morning only. She has a history of seasonal allergies. She denies other complaints. Physical Examination: Vitals are stable. Patient is afebrile. Alert no acute distress. HEENT exam is unremarkable. Neck is supple. Lungs are clear and equal bilaterally. Heart is regular rate and rhythm. Extremities left lumbar paraspinal muscle tenderness, straight leg raise positive at 30? on the left Skin is warm and dry. No focal neurologic deficit. Normal strength and sensation Remainder of exam is unremarkable. Emergency Department Course and Treatment: Patient declined pain medication in the emergency department. X-ray of the chest and left hip show no acute process. She is given a prescription for Flexeril and advised to continue naproxen. She is given Tessalon. Advised to follow-up with her primary care physician. Advised return to ED if worsening complaints. Disposition: Discharge home Impression: Sciatica, viral syndrome This note was generated with [employer] dictation software. It may contain incorrect words, spelling, and punctuation that were not noted in review of the chart prior to signing ED Disposition - Plan for ED Patient: Disposition: Home or Assisted Living Chief Complaint: Shortness of Breath Instructions: ED Sciatica Prescriptions: Benzonatate [Tessalon Perle] 200 mg PO TID PRN PRN #20 capsule PRN Reason: Cough Cyclobenzaprine [Flexeril] 10 mg PO TID PRN #20 tablet PRN Reason: Muscle Spasm Referrals: Mallorie Alexis, DIRECTOR PROCESS ENGINEERING-C [Primary Care Provider] -
== END 2018-03-13 00:28 | disposition home or self-care (01) ==
LOC: ED 03-13 00:16
PROVIDERS: Emergency Provider Emergency Medicine; Family Provider Nurse Practitioner Family; PCP Nurse Practitioner Family
DX: M54.32 Sciatica, left side (principal); B34.9 Viral infection, unspecified; M41.9 Scoliosis, unspecified
CPT/HCPCS: 71045; 73502; 94760; 99282

== ENCOUNTER 2018-03-17 09:03 | Emergency (ER) | payer MEDICAID, SELFPAY ==
[2018-03-17 09:05] VITALS: BP 123/76; PULSE 79; RESP 14; TEMP 36.8; O2SAT 95; BMI 31.4
--- NOTE | 2018-03-17 09:23 | ED.VISSUMM ---
- ER Visit Summary Date of Service: 03/17/18 Chief Complaint: Lightheadedness, shortness of breath, dysuria History of Present Illness: The patient is a 37 F who presents with the above chief complaints that have been getting worse over the past 4 days. Patient states she feels like she is lightheaded when she stands up. Patient states he feels like she might pass out. Patient denies any spinning sensation. Patient denies any headaches. Patient denies any nausea or vomiting. Patient also admits to some shortness of breath. Patient admits to a cough with some clear sputum. Patient admits to subjective chills but denies any fevers. Patient denies any chest pain. Patient also admits to some dysuria. Patient states she went to an urgent care and had a urinalysis done which was normal. Patient admits to some bilateral flank pain. Physical Examination: Vital signs are stable. Patient is afebrile. Patient is in no acute distress. Oral mucosa is pink and moist. Neck is supple. Trachea is midline. There is no JVD noted. Heart was regular rate and rhythm. Lungs are clear and equal bilaterally. Abdomen is soft. There is some mild flank tenderness bilaterally. There is no CVA tenderness. There is no rebound or guarding noted. Cranial nerves II through XII are intact. There are no focal motor or sensory deficits noted. The remaining physical exam is within normal limits. Test Results: CBC, basic metabolic profile, urinalysis, and chest x-ray were obtained were all within normal limits. Emergency Department Course and Treatment: Orthostatic vital signs were within normal limits. Patient was instructed to follow-up with her [facility] physician in 5-7 days. Patient was instructed to continue her outpatient follow-up visits with her desktop publishing specialist as scheduled. Patient understood and was agreeable with the plan. All questions were answered. Disposition: Discharged home Impression: General weakness This note was generated with [employer] dictation software. It may contain incorrect words, spelling, and punctuation that were not noted in review of the chart prior to signing ED Disposition - Plan for ED Patient: Disposition: Home or Assisted Living Chief Complaint: General Illness Diagnosis: General weakness Instructions: ED Weakness [facility] Referrals: Mallorie Alexis NP-C [Primary Care Provider] -
--- NOTE | 2018-03-17 09:26 | ED.DCSUM_ITS ---
- ER Visit Summary Date of Service: 03/17/18 Chief Complaint: Lightheadedness, shortness of breath, dysuria History of Present Illness: The patient is a 37 F who presents with the above chief complaints that have been getting worse over the past 4 days. Patient states she feels like she is lightheaded when she stands up. Patient states he feels like she might pass out. Patient denies any spinning sensation. Patient denies any headaches. Patient denies any nausea or vomiting. Patient also admits to some shortness of breath. Patient admits to a cough with some clear sputum. Patient admits to subjective chills but denies any fevers. Patient denies any chest pain. Patient also admits to some dysuria. Patient states she went to an urgent care and had a urinalysis done which was normal. Patient admits to some bilateral flank pain. Physical Examination: Vital signs are stable. Patient is afebrile. Patient is in no acute distress. Oral mucosa is pink and moist. Neck is supple. Trachea is midline. There is no JVD noted. Heart was regular rate and rhythm. Lungs are clear and equal bilaterally. Abdomen is soft. There is some mild flank tenderness bilaterally. There is no CVA tenderness. There is no rebound or guarding noted. Cranial nerves II through XII are intact. There are no focal motor or sensory deficits noted. The remaining physical exam is within normal limits. Test Results: CBC, basic metabolic profile, urinalysis, and chest x-ray were obtained were all within normal limits. Emergency Department Course and Treatment: Orthostatic vital signs were within normal limits. Patient was instructed to follow-up with her [facility] physician in 5-7 days. Patient was instructed to continue her outpatient follow -up visits with her analytical manager as scheduled. Patient understood and was agreeable with the plan. All questions were answered. Disposition: Discharged home Impression: General weakness This note was generated with [employer] dictation software. It may contain incorrect words, spelling, and punctuation that were not noted in review of the chart prior to signing ED Disposition - Plan for ED Patient: Disposition: Home or Assisted Living Chief Complaint: General Illness Diagnosis: General weakness Instructions: ED Weakness [facility] Referrals: Mallorie Alexis NP-C [Primary Care Provider] -
[2018-03-17 09:39] VITALS: BP 128/60; BP 132/70; BP 135/68; PULSE 73; PULSE 74; PULSE 79
[2018-03-17] MEDS: 0.9% Normal Saline 1,000 ML 1000 ML IV (09:42)
--- NOTE | 2018-03-17 09:55 | RAD_ITS ---
STUDY: X-RAY CHEST REASON FOR EXAM: Female, 37 years old. Cough and shortness of breath. Back pain. TECHNIQUE: PA and lateral views of the chest. COMPARISON: Comparison is made with prior study dated March 12, 2018. FINDINGS: The lungs are clear and expanded. There is no demonstrated pleural abnormality. Normal size heart. Normal mediastinum and jennifer. Normal visualized pulmonary arteries. Normal visualized aortic arch and descending thoracic aorta. Normal visualized thoracic spine. Normal visualized ribs, clavicles, and shoulders. There is no demonstrated abnormality of the visualized soft tissue structures of the upper abdomen. RAD/Chest PA and Lateral IMPRESSION: Normal x-ray examination of the chest. Electronically Signed: Shree Das MD at 10:20 EDT Tel [phone], Service support ,
[2018-03-17 09:58] LABS: Absolute Lymphocyte Count 1.43 X10^3/ul (0.83-4.51); Basophil# 0.02 X10^3/uL; Basophil% 0.2 % (0-1); Eosinophil# 0.19 X10^3/uL; Eosinophils% 2.1 % (0-5); Hematocrit 42.7 % (37-47); Hemoglobin 14.3 g/dl (12.0-15.0); Lymphocyte # 1.43 X10^3/ul (4.0); Lymphocyte % 15.6 % (19-41); Mean Corp Hgb Conc 33.5 g/gl (32-36); Mean Corpuscular Hgb 28.7 pg (27.0-32.0); Mean Corpuscular Volume 85.6 fL (81-99); Mean Platelet Vol. 11.2 fl (6.2-12.0); Monocyte# 0.56 X10^3/uL; Monocyte% 6.1 % (0-10); Neutrophil # 6.98 X10^3/uL (2.7-7.7); Neutrophil % 75.9 % (47-70); POSITIVE COUNT NO; POSITIVE DIFFERENTIAL NO; POSITIVE MORPHOLOGY NO; Platelet Count 214 K/mm3 (150-450); RBC Distribution Width CV 12.9 % (11.6-14.6); RBC Distribution Width SD 39.7 fl (35.1-43.9); Red Blood Count 4.99 M/mm3 (4.2-5.4); White Blood Count 9.2 K/mm3 (4.4-11.0)
[2018-03-17 10:08] LABS: Anion Gap 8 (5-15); BUN 13 mg/dL (7-18); BUN/Creat Ratio 14.5 RATIO (10-20); Chloride 107 mmol/L (98-107); EST Glomerular Filtration Rate 74 mL/min (>60); Est Glom Filt Rate - Afr Amer 90 mL/min (>60); Estimated Creatinine Clearance 78.56 ml/min; Glucose 89 mg/dL (74-106); Potassium 3.6 mmol/L (3.5-5.1); Sodium Level 141 mmol/L (136-145)
[2018-03-17 10:43] LABS: Bacteria 0 SEEN /hpf (None Seen); Mucous, Urine 0 SEEN /hpf (<or=2+); Red Blood Cells-Urine 0 SEEN /hpf (0-5); White Blood Cells 0 SEEN /hpf (0-5)
[2018-03-17 10:47] LABS: Color, Urine Yellow (Yellow); Glucose, Dipstick Normal (Normal); Ketone-Dipstick 5 mg/dl (Negative); Leukocyte Esterase-Dipstick Negative /ul (Negative); Nitrite-Dipstick Negative (Negative); Occult Blood-Urine Negative /ul (Negative); Protein-Dipstick Negative (Negative); Specific Gravity, Urine 1.025 (1.002-1.030); Urine Bilirubin Dipstick Negative (Negative); Urine Clarity Sl. Cloudy (Clear); Urine Urobilinogen Normal (Normal)
[2018-03-17 10:48] LABS: Internal QC Validated? YES +Cl - CLEAR BKGD; Pregnancy, Urine Negative Negative
[2018-03-17 10:52] LABS: Squamous Epithelial Cells - UA 0-5 SEEN /hpf (5-10)
[2018-03-17 11:13] VITALS: BP 141/65; PULSE 76; RESP 18; O2SAT 99
[2018-03-17 12:23] VITALS: BP 139/72; PULSE 84; RESP 18; O2SAT 100
== END 2018-03-17 12:24 | disposition home or self-care (01) ==
PROVIDERS: Emergency Provider Emergency Medicine; Family Provider Nurse Practitioner Family; PCP Nurse Practitioner Family
DX: R53.1 Weakness (principal); M54.9 Dorsalgia, unspecified; R30.0 Dysuria; K59.00 Constipation, unspecified; R05 Cough; R06.00 Dyspnea, unspecified; Z87.891 Personal history of nicotine dependence
CPT/HCPCS: 71046; 80048; 81001; 81025; 85025; 96360; 99284; J7030

== ENCOUNTER 2018-03-19 05:50 | Emergency (ER) | payer MEDICAID, SELFPAY ==
[2018-03-19 05:52] VITALS: BP 127/69; PULSE 77; RESP 18; TEMP 36.6; O2SAT 96; BMI 30.4
[2018-03-19 05:58] VITALS: O2SAT 95
--- NOTE | 2018-03-19 06:26 | EKG12_ITS ---
Test Reason : Blood Pressure : / mmHG Vent. Rate : 088 BPM Atrial Rate : 088 BPM P-R Int : 140 ms QRS Dur : 082 ms QT Int : 386 ms P-R-T Axes : 057 023 -06 degrees QTc Int : 467 ms Normal sinus rhythm T wave abnormality, consider inferior ischemia Abnormal ECG Confirmed by GABRIEL KHAN, KYM ([id number]), city editor KIRBY BRAR ([id number]) on 03/21/2018 1:38:45 PM Referred By: MARELY Confirmed By:KYM RIOS MD
[2018-03-19] MEDS: Acetaminophen 500 MG Tablet 1000 MG PO (06:34)
[2018-03-19] MEDS: Ondansetron ODT 4 MG Tablet PO (06:34)
--- NOTE | 2018-03-19 06:45 | RAD_ITS ---
STUDY: X-RAY CHEST REASON FOR EXAM: Female, 37 years old. Shortness of breath, cough and diaphoresis. TECHNIQUE: Single AP portable view of the chest. COMPARISON: March 17, 2018. FINDINGS: There is hyperinflation of the lungs consistent with chronic obstructive lung disease (COPD). There is no demonstrated pleural abnormality. Normal size heart. Normal mediastinum and jennifer. Normal visualized pulmonary arteries. Normal visualized aortic arch and descending thoracic aorta. Normal visualized thoracic spine. Normal visualized ribs, clavicles, and shoulders. There is no demonstrated abnormality of the visualized soft tissue structures of the upper abdomen. RAD/Chest 1 View (Portable) IMPRESSION: No radiographic evidence of acute cardiopulmonary disease. Electronically Signed: Any Taylor MD at 8:10 EDT , Service support ,
--- NOTE | 2018-03-19 07:03 | ED.DCSUM_ITS ---
- ER Visit Summary Date of Service: 03/19/18 Chief Complaint: Cough and shortness of breath History of Present Illness: The patient is a 37 F who goes to the [facility]. She reports that an hour ago she was awakened by sleep from shortness of breath and a cough. She reports that was productive clear sputum without blood. Patient reports that she began clindamycin yesterday approximately 7 PM for bacterial vaginosis. She reports that she is having abdominal pain that is moderate at worst and mild currently. She has been nauseated without any vomiting. No diarrhea. Physical Examination: Vitals: Stable. Afebrile. General: Well-nourished and well-developed. Head: Normocephalic atraumatic. Neck: Supple, no lymphadenopathy. No JVD. Nontender. Cardiovascular: Regular rate and rhythm. No murmurs. Respiratory: No respiratory distress. Clear to auscultation bilaterally. Abdominal: Soft, nontender, nondistended, normal bowel sounds. No guarding, rebound, or peritoneal signs. Back: Nontender. Extremities: Nontender, no edema. Skin: Normal color, no rash. Neurologic: Alert and oriented ?3. Cranial nerves II through XII are intact. Normal strength and sensation. Psych: Normal affect. Test Results: EKG is sinus at 88 with no acute changes. Chest x-ray is normal. Emergency Department Course and Treatment: Patient treated Tylenol and Zofran p.o. She is resting comfortably. Treatment Plan: Had a prolonged discussion the patient that clindamycin does have GI side effects and I suspect this is the source of her discomfort. She will be discharged with Zofran. I have given a prescription for Flagyl suppositories. Instructed to follow-up the [facility] in 5 days not improving. Disposition: To home in improved and stable condition. Impression: 1. Adverse reaction to clindamycin. 2. URI. This note was generated with [employer] dictation software. It may contain incorrect words, spelling, and punctuation that were not noted in review of the chart prior to signing ED Disposition - Plan for ED Patient: Disposition: Home or Assisted Living Chief Complaint: Cough Instructions: ED Upper Resp Infec No Abx Tx Prescriptions: Ondansetron [Zofran Odt] 4 mg PO Q8H PRN PRN #10 tablet PRN Reason: Nausea Metronidazole 0.75% [Metrogel Vaginal] 0 applicatio VAGINAL QHS #5 tube Referrals: Mallorie Alexis, ENVIRONMENTAL HEALTH PHYSICIAN-C [Primary Care Provider] - 1 Week if not improving
[2018-03-19 07:24] VITALS: RESP 18
== END 2018-03-19 07:24 | disposition home or self-care (01) ==
PROVIDERS: Emergency Provider Emergency Medicine; Family Provider Nurse Practitioner Family; PCP Nurse Practitioner Family
DX: T88.7XXA Unspecified adverse effect of drug or medicament, initial encounter (principal); T36.8X5A Adverse effect of other systemic antibiotics, initial encounter; Y92.9 Unspecified place or not applicable; J06.9 Acute upper respiratory infection, unspecified; J45.909 Unspecified asthma, uncomplicated
CPT/HCPCS: 71045; 93005; 99285

== ENCOUNTER 2018-03-20 18:13 | Emergency (ER) | payer MEDICAID, SELFPAY ==
[2018-03-20 18:15] VITALS: BP 128/55; PULSE 83; RESP 16; TEMP 36.2; O2SAT 95; BMI 30.2
--- NOTE | 2018-03-20 18:54 | ED.DCSUM_ITS ---
- ER Visit Summary Date of Service: 03/20/18 Chief Complaint: Abdominal pain History of Present Illness: The patient is a 37 F patient has abdominal pain. She has been seen here multiple times for this recently. She was seen here 2 days ago and had a workup which was negative. She states that she has tried Emetrol, Zofran and Pepcid but is not helping. She denies fevers. She has not followed up with her primary care physician about this. Physical Examination: Vital signs reviewed. HEENT exam unremarkable. Heart is regular rate and rhythm without murmurs. Lungs are clear to auscultation. Abdomen is soft with diffuse tenderness. No guarding or rebound extremities reveal no edema. Skin exam normal. Neurologic exam normal. Test Results: None performed Emergency Department Course and Treatment: Patient has diffuse abdominal pain which is nonspecific. She was wondering about getting a CAT scan to check for ulcers. I told her that the only test indicated for ulcers is an upper GI endoscopy. I will give her Bentyl here and at home. She has had a workup many times for this. I do not feel labs or CAT scan are necessary at this time. She will follow-up with her PCP Treatment Plan: [] Disposition: Discharge Impression: Chronic abdominal pain This note was generated with [employer] dictation software. It may contain incorrect words, spelling, and punctuation that were not noted in review of the chart prior to signing ED Disposition - Plan for ED Patient: Chief Complaint: Abd Pain Referrals: Mallorie Alexis, WOLF-C [Primary Care Provider] -
--- NOTE | 2018-03-20 18:54 | ED.DEP ---
ED Disposition - Plan for ED Patient: Disposition: Home or Assisted Living Chief Complaint: Abd Pain Instructions: ED Abdominal Pain Unkn Cause Prescriptions: Dicyclomine HCl [Bentyl] 20 mg PO TIDAC #20 cap Referrals: Mallorie Alexis NP-C [Primary Care Provider] -
[2018-03-20] MEDS: Dicyclomine 10 MG Capsule 20 MG PO (18:59)
== END 2018-03-20 19:13 | disposition home or self-care (01) ==
LOC: ED 19:00
PROVIDERS: Emergency Provider Emergency Medicine; Family Provider Nurse Practitioner Family; PCP Nurse Practitioner Family
DX: G89.29 Other chronic pain (principal); R10.9 Unspecified abdominal pain
CPT/HCPCS: 99283

== ENCOUNTER 2018-03-24 14:53 | Emergency (ER) | payer MEDICAID, SELFPAY ==
[2018-03-24 14:54] VITALS: BP 124/83; PULSE 73; RESP 18; TEMP 36.9; O2SAT 98; BMI 29.7
--- NOTE | 2018-03-24 15:22 | ED.DCSUM_ITS ---
- ER Visit Summary Date of Service: 03/24/18 Chief Complaint: Constipation History of Present Illness: The patient is a 37 F past medical history of reflux. No prior abdominal surgery. States she had her last normal bowel movement was on Tuesday. She has had minimal hard stool since that time. Denies any diarrhea. No fever. Intermittent cramps. Denies dysuria. Currently is on her menstrual no fever. No vomiting. Mild nausea. No dysuria. Physical Examination: Well-appearing young female. Vital signs are stable. She is afebrile. She does not look septic or toxic. She is in no acute distress. H EENT exam is unremarkable. Moist wheeze membranes. Lungs clear to auscultation bilaterally. Heart regular rate and rhythm no murmur. Abdomen is soft. Nondistended normal bowel sounds no peritoneal signs. Really no significant tenderness. No hernias. No masses. No signs of obstruction. No right lower quadrant tenderness. Moving all 4 extremities. Neurovascular intact. Back nontender. Neurologically she is awake and alert with no focal motor deficits. Test Results: KUB was obtained showed increased stool consistent with constipation. No obstruction. No free air. Emergency Department Course and Treatment: Repeat exam patient is doing well at 1545 and will be discharged to home with magnesium citrate. Treatment Plan: Magnesium citrate. Fluids and fiber. Follow-up with her primary care provider at the clinic. Disposition: Discharge Impression: Acute constipation This note was generated with [employer] dictation software. It may contain incorrect words, spelling, and punctuation that were not noted in review of the chart prior to signing ED Disposition - Plan for ED Patient: Chief Complaint: Constipation Referrals: Mallorie Alexis NP-C [Primary Care Provider] -
--- NOTE | 2018-03-24 15:24 | RAD_ITS ---
STUDY: X-RAY - ABDOMEN/PELVIS REASON FOR EXAM: Female, 37 years old. Pain and distention TECHNIQUE: AP supine and upright views of the abdomen and pelvis. COMPARISON: None. FINDINGS: Normal visualized lung bases. There is a moderate amount of colonic fecal material. There is no demonstrated free abdominal air. The visualized liver, spleen and kidneys are grossly normal in size and morphology. Normal soft tissue structures. Normal visualized osseous structures. RAD/Abdomen Single View (Portable) IMPRESSION: No acute findings, retained stool Electronically Signed: Omar Almeida MD at 15:55 EDT , Service support ,
--- NOTE | 2018-03-24 15:45 | ED.DEP ---
ED Disposition - Plan for ED Patient: Disposition: Home or Assisted Living Chief Complaint: Constipation Instructions: ED Constipation Referrals: Mallorie Alexis, ECONOMETRICIAN-C [Primary Care Provider] - 3-5 Days if not improving
--- NOTE | 2018-03-24 15:46 | DCINST.ED_ITS ---
ED Disposition - Plan for ED Patient: Disposition: Home or Assisted Living Chief Complaint: Constipation Instructions: ED Constipation Referrals: Mallorie Alexis, NEWSPAPER COPY EDITOR-C [Primary Care Provider] - 3-5 Days if not improving
[2018-03-24] MEDS: Magnesium Citrate 300 ML PO (15:51)
[2018-03-24 15:53] VITALS: BP 108/67; PULSE 52; RESP 15; O2SAT 98
== END 2018-03-24 15:53 | disposition home or self-care (01) ==
LOC: ED 15:49
PROVIDERS: Emergency Provider Emergency Medicine; Family Provider Nurse Practitioner Family; PCP Nurse Practitioner Family
DX: K59.00 Constipation, unspecified (principal); K21.9 Gastro-esophageal reflux disease without esophagitis
CPT/HCPCS: 74018; 99283

== ENCOUNTER → 2018-05-01 13:10 | Outpatient (CLI) | payer MEDICAID, SELFPAY | DX: M54.5 Low back pain (principal) | CPT/HCPCS: 72100; 72220 ==

== ENCOUNTER 2018-05-12 14:11 | Emergency (ER) | payer MEDICAID, SELFPAY ==
[2018-05-12 14:11] VITALS: BP 124/75; PULSE 82; RESP 16; TEMP 36.7; O2SAT 95; BMI 29.7
[2018-05-12 14:35] LABS: Mucous, Urine 0 SEEN /hpf (<or=2+)
[2018-05-12 14:45] LABS: Color, Urine Red (Yellow); Glucose, Dipstick Normal (Normal); Ketone-Dipstick Negative (Negative); Leukocyte Esterase-Dipstick 25 /ul (Negative); Nitrite-Dipstick Negative (Negative); Occult Blood-Urine 250 /ul (Negative); Protein-Dipstick 100 mg/dl (Negative); Urine Bilirubin Dipstick Negative (Negative); Urine Clarity Sl. Cloudy (Clear); Urine Urobilinogen Normal (Normal)
[2018-05-12 14:59] LABS: White Blood Cells 0-5 SEEN /hpf (0-5)
[2018-05-12 15:00] LABS: Bacteria RARE /hpf (None Seen); Red Blood Cells-Urine 5-10 SEEN /hpf (0-5); Squamous Epithelial Cells - UA 0-5 SEEN /hpf (5-10)
[2018-05-12 15:38] VITALS: BP 113/74; PULSE 69; RESP 18; O2SAT 100
--- NOTE | 2018-05-12 15:51 | ED.DCSUM_ITS ---
- ER Visit Summary Date of Service: 05/12/18 Chief Complaint: Diarrhea History of Present Illness: The patient is a 37 F past medical history of reflux. Patient states the last week she has had intermittent episodes of diarrhea. Denies any melena. Denies any fever. Really no significant abdominal pain or some cramping with the diarrhea. She is currently on her menstrual cycle. She denies dysuria but states she is being more frequently. Denies any hematuria. Denies nausea or vomiting. Denies recent hospitalization. Physical Examination: Well-appearing middle-age female. Vital signs stable afebrile. H EENT exam driving his membranes. Neck nontender no lymphadenopathy. Lungs clear to auscultation bilaterally. Heart regular rhythm no murmur. Abdomen soft nondistended normal bowel sounds no peritoneal signs. No hernias or masses. No signs of obstruction. Pelvic girdle intact. Moving all 4 extremities. Neurovascular intact. Back nontender. Skin unremarkable. Neurologic exam no focal motor deficits. Test Results: CBC unremarkable. Electrolytes normal normal gap and creatinine. UA showed small amount of blood microscopic otherwise unremarkable no obvious signs of infection. Emergency Department Course and Treatment: Patient treated with a liter normal saline because clinically she looks dehydrated. Imodium for diarrhea. Treatment Plan: Repeat exam patient doing well at 1810. She will be discharged to home. Prescription for Imodium. Disposition: Discharge Impression: Diarrhea Mild clinical dehydration This note was generated with [employer] dictation software. It may contain incorrect words, spelling, and punctuation that were not noted in review of the chart prior to signing ED Disposition - Plan for ED Patient: Chief Complaint: Diarrhea Referrals: Daniela Shields [Primary Care Provider] -
[2018-05-12] MEDS: Loperamide 2 MG Capsule 4 MG PO (15:55)
[2018-05-12] MEDS: 0.9% Normal Saline 1,000 ML 1000 ML IV (15:55)
[2018-05-12 16:28] LABS: Absolute Lymphocyte Count 2.11 X10^3/ul (0.83-4.51); Basophil# 0.02 X10^3/uL; Basophil% 0.3 % (0-1); Eosinophil# 0.13 X10^3/uL; Eosinophils% 1.7 % (0-5); Hematocrit 46.4 % (37-47); Hemoglobin 15.4 g/dl (12.0-15.0); Lymphocyte # 2.11 X10^3/ul (4.0); Lymphocyte % 27.5 % (19-41); Mean Corp Hgb Conc 33.2 g/gl (32-36); Mean Corpuscular Hgb 28.7 pg (27.0-32.0); Mean Corpuscular Volume 86.4 fL (81-99); Mean Platelet Vol. 10.9 fl (6.2-12.0); Monocyte# 0.44 X10^3/uL; Monocyte% 5.7 % (0-10); Neutrophil # 4.96 X10^3/uL (2.7-7.7); Neutrophil % 64.8 % (47-70); Platelet Count 245 K/mm3 (150-450); RBC Distribution Width CV 12.9 % (11.6-14.6); RBC Distribution Width SD 40.9 fl (35.1-43.9); Red Blood Count 5.37 M/mm3 (4.2-5.4); White Blood Count 7.7 K/mm3 (4.4-11.0)
[2018-05-12 16:32] LABS: POSITIVE COUNT NO; POSITIVE DIFFERENTIAL NO; POSITIVE MORPHOLOGY NO
[2018-05-12 16:34] LABS: Anion Gap 8 (5-15); BUN 9 mg/dL (7-18); BUN/Creat Ratio 10.9 RATIO (10-20); Calcium,Total 9.5 mg/dL (8.5-10.1); Chloride 106 mmol/L (98-107); Creatinine, Serum 0.83 mg/dL (0.55-1.02); EST Glomerular Filtration Rate 82 mL/min (>60); Est Glom Filt Rate - Afr Amer 99 mL/min (>60); Estimated Creatinine Clearance 88.49 ml/min; Glucose 84 mg/dL (74-106); Potassium 3.9 mmol/L (3.5-5.1); Sodium Level 140 mmol/L (136-145)
[2018-05-12 17:30] VITALS: BP 119/81; PULSE 62; RESP 16; TEMP 36.8; O2SAT 100
--- NOTE | 2018-05-12 18:12 | ED.DEP ---
ED Disposition - Plan for ED Patient: Disposition: Home or Assisted Living Chief Complaint: Diarrhea Instructions: ED Diarrhea Viral Prescriptions: Loperamide [Imodium] 2 mg PO Q2H PRN PRN #10 cap PRN Reason: Diarrhea Referrals: Daniela Shields [Primary Care Provider] - 3-5 Days if not improving Additional Instructions: Imodium as needed for diarrhea. Plenty of fluids and rest. This should aggressively get better and resolve if not improving follow-up with your primary care physician.
== END 2018-05-12 18:33 | disposition home or self-care (01) ==
PROVIDERS: Emergency Provider Emergency Medicine
DX: R19.7 Diarrhea, unspecified (principal); E86.0 Dehydration; K21.9 Gastro-esophageal reflux disease without esophagitis; Z79.899 Other long term (current) drug therapy
CPT/HCPCS: 80048; 81001; 85025; 96360; 99284; J7030; A4216

== ENCOUNTER 2018-05-14 11:21 | Emergency (ER) | payer MEDICAID, SELFPAY ==
[2018-05-14 11:23] VITALS: BP 112/71; PULSE 91; RESP 18; TEMP 36.2; O2SAT 98; BMI 29.7
--- NOTE | 2018-05-14 12:33 | CT_ITS ---
STUDY: CT ABDOMEN AND PELVIS WITHOUT CONTRAST REASON FOR EXAM: Female, 37 years old. Flank and chest pain. RADIATION DOSAGE (If Supplied By Facility): CTDIvol = ( 13.88 ) mGy, DLP = ( 869.86 ) mGycm TECHNIQUE: Transaxial images were obtained from the dome of the diaphragm to the symphysis pubis without oral contrast, and without intravenous contrast. Sagittal and coronal images were reconstructed. Individualized dose optimization techniques were used for this CT. COMPARISON: None. FINDINGS: Evaluation of the abdominal viscera is limited in the absence of intravenous contrast. The visualized lung bases are clear. The visualized portions of the heart and pericardium are within normal limits. There are no calcified gallstones present. The liver demonstrates an unremarkable unenhanced appearance. The spleen is normal in size. The pancreas demonstrates an unremarkable unenhanced appearance. The adrenal glands are within normal limits. There are no renal or ureteral stones. There is no hydronephrosis. Normal visualized stomach. There is no bowel obstruction or inflammation. The appendix is visualized and appears normal. The aorta is normal in caliber. There is no abdominal or pelvic free air, free fluid, fluid collection or lymphadenopathy. There are no destructive osseous lesions. CT/Abdomen/Pelvis W IV Cont ONLY IMPRESSION: No acute abdominal or pelvic pathology demonstrated on this noncontrast CT. Electronically Signed: Karson Vieira, at 14:26 EDT Tel , Service support ,
--- NOTE | 2018-05-14 12:33 | EKG12_ITS ---
Test Reason : FLANK PAIN Blood Pressure : / mmHG Vent. Rate : 062 BPM Atrial Rate : 062 BPM P-R Int : 144 ms QRS Dur : 082 ms QT Int : 428 ms P-R-T Axes : 046 032 017 degrees QTc Int : 434 ms Normal sinus rhythm Normal ECG Confirmed by KYM RIOS MD ([id number]), slot editor KIRBY BRAR ([id number]) on 05/16/2018 1:31:40 PM Referred By: STEPHANIE Confirmed By:KYM RIOS MD
[2018-05-14 13:08] LABS: Bacteria 0 SEEN /hpf (None Seen); Mucous, Urine 0 SEEN /hpf (<or=2+); White Blood Cells 0 SEEN /hpf (0-5)
[2018-05-14 13:10] LABS: Color, Urine Amber (Yellow); Glucose, Dipstick Normal (Normal); Ketone-Dipstick 5 mg/dl (Negative); Leukocyte Esterase-Dipstick 25 /ul (Negative); Nitrite-Dipstick Negative (Negative); Occult Blood-Urine 250 /ul (Negative); Protein-Dipstick 30 mg/dl (Negative); Urine Bilirubin Dipstick Negative (Negative); Urine Clarity Cloudy (Clear); Urine Urobilinogen Normal (Normal); Urine pH 6.5 (5.0 - 8.0)
[2018-05-14 13:19] LABS: Absolute Lymphocyte Count 1.37 X10^3/ul (0.83-4.51); Absolute Neutrophil Count 5.8 X10^3/uL (2.0-7.7); Basophil# 0.02 X10^3/uL; Basophil% 0.3 % (0-1); Eosinophil# 0.09 X10^3/uL; Eosinophils% 1.2 % (0-5); Hematocrit 42.9 % (37-47); Hemoglobin 13.9 g/dl (12.0-15.0); Lymphocyte # 1.37 X10^3/ul (4.0); Lymphocyte % 17.8 % (19-41); Mean Corp Hgb Conc 32.4 g/gl (32-36); Mean Corpuscular Volume 86.3 fL (81-99); Mean Platelet Vol. 10.9 fl (6.2-12.0); Monocyte# 0.45 X10^3/uL; Monocyte% 5.8 % (0-10); Neutrophil # 5.77 X10^3/uL (2.7-7.7); Neutrophil % 74.9 % (47-70); POSITIVE COUNT NO; POSITIVE DIFFERENTIAL NO; POSITIVE MORPHOLOGY NO; Platelet Count 231 K/mm3 (150-450); RBC Distribution Width CV 12.9 % (11.6-14.6); RBC Distribution Width SD 40.8 fl (35.1-43.9); Red Blood Count 4.97 M/mm3 (4.2-5.4); White Blood Count 7.7 K/mm3 (4.4-11.0)
--- NOTE | 2018-05-14 13:19 | ED.RN ---
pt verbalizes feelings that someone may hurt her or she may accidentally eat something that will hurt her. denies feelings of intentional harm to self. high levels of anxiety and paranoia.
[2018-05-14 13:21] VITALS: BP 116/78; PULSE 76; RESP 16; O2SAT 99
[2018-05-14] MEDS: 0.9% Normal Saline 1,000 ML 1000 ML IV (13:21)
[2018-05-14 13:36] LABS: Amphetamine Urine VISTA NEGATIVE (<1000 ng/mL); Barbiturate Urine VISTA NEGATIVE (< 200 ng/mL); Benzodiazepine Urine VISTA NEGATIVE (< 200 ng/mL); Cocaine Urine VISTA NEGATIVE (< 300 ng/mL); Ecstacy Urine VISTA NEGATIVE (< 500 ng/mL); Methadone Urine VISTA NEGATIVE (< 300 ng/mL); PCP Urine VISTA NEGATIVE (< 25 ng/mL); THC Urine VISTA NEGATIVE (< 50 ng/mL); Vista UDS pH Range 6
[2018-05-14 13:38] LABS: ALB/GLOB Ratio 1.1 RATIO (0.9-2.4); AST(SGOT) 12 U/L (15-37); Alanine Aminotransfer ALT/SGPT 17 U/L (13-56); Albumin, Serum 3.7 g/dL (3.2-5.0); Alkaline Phosphatase 61 U/L (45-117); Anion Gap 10 (5-15); BUN 10 mg/dL (7-18); BUN/Creat Ratio 12.6 RATIO (10-20); Calcium,Total 8.8 mg/dL (8.5-10.1); Chloride 108 mmol/L (98-107); Creatinine, Serum 0.79 mg/dL (0.55-1.02); EST Glomerular Filtration Rate 86 mL/min (>60); Est Glom Filt Rate - Afr Amer 104 mL/min (>60); Estimated Creatinine Clearance 92.97 ml/min; Globulin 3.4 g/dL (2.2-4.2); Glucose 83 mg/dL (74-106); Lipase 102 U/L (73-393); Potassium 3.8 mmol/L (3.5-5.1); Protein, Total 7.1 g/dL (6.4-8.2); Sodium Level 144 mmol/L (136-145)
[2018-05-14 13:47] LABS: Pregnancy, Serum, hCG Quali. NEGATIVE Negative (0-9 Nonpreg)
[2018-05-14 14:01] LABS: Red Blood Cells-Urine > 100 SEEN /hpf (0-5); Squamous Epithelial Cells - UA 0-5 SEEN /hpf (5-10)
[2018-05-14 15:00] VITALS: RESP 16
--- NOTE | 2018-05-14 15:37 | ED.VISSUMM ---
- ER Visit Summary Date of Service: 05/14/18 Chief Complaint: Abdominal pain History of Present Illness: The patient is a 37 F with abdominal pain for several days. Pain is diffuse. Worse with eating. Associated with diarrhea. Patient also voices to me that she is unsure what she can eat. She feels like her food is harming her. She feels paranoid. She is not suicidal or homicidal, but she will not tell me that she feels safe at home. Denies drug use or alcohol use currently. Denies fevers. Denies any other associated symptoms. Denies any new or different medications. Physical Examination: Afebrile vital signs unremarkable. Patient alert and oriented. No acute distress. Mucous membranes moist. Heart regular rate and rhythm. Lungs clear. Abdomen soft and nontender. Skin appears normal. She is alert and oriented. Depressed mood and flat affect. Paranoid thoughts. Test Results: EKG showed sinus rhythm rate of 62. No sign of ischemia or infarction. CBC normal. CMP unremarkable. Lipase normal. Urinalysis unremarkable. Troponin normal. HCG negative. Alcohol and tox negative. CT abdomen showed no acute process. Emergency Department Course and Treatment: Patient had some medical complaints but also some associated psychological concerns. She was not overtly suicidal, but I did place precautions until evaluation was completed. Her medical workup was all unremarkable. She received morphine and Zofran and her symptoms improved. No new or different findings. Patient continues to have paranoid thoughts about what she is eating. She does not feel comfortable eating at home. I am concerned that she might not be able to take care of herself. She is not overtly suicidal or homicidal. I will have her evaluated by crisis. The oncoming doctor will follow up with their assessment. Treatment Plan: As above Disposition: Pending crisis evaluation Impression: 1. Abdominal pain 2. Psychosis This note was generated with [employer] software. It may contain incorrect words, spelling, and punctuation that were not noted in review of the chart prior to signing ED Disposition - Plan for ED Patient: Chief Complaint: Flank Pain Referrals: Katharina Baron,Daniela Alcazar [Primary Care Provider] -
--- NOTE | 2018-05-14 15:41 | ED.DCSUM_ITS ---
- ER Visit Summary Date of Service: 05/14/18 Chief Complaint: Abdominal pain History of Present Illness: The patient is a 37 F with abdominal pain for several days. Pain is diffuse. Worse with eating. Associated with diarrhea. Patient also voices to me that she is unsure what she can eat. She feels like her food is harming her. She feels paranoid. She is not suicidal or homicidal , but she will not tell me that she feels safe at home. Denies drug use or alcohol use currently. Denies fevers. Denies any other associated symptoms. Denies any new or different medications. Physical Examination: Afebrile vital signs unremarkable. Patient alert and oriented. No acute distress. Mucous membranes moist. Heart regular rate and rhythm. Lungs clear. Abdomen soft and nontender. Skin appears normal. She is alert and oriented. Depressed mood and flat affect. Paranoid thoughts. Test Results: EKG showed sinus rhythm rate of 62. No sign of ischemia or infarction. CBC normal. CMP unremarkable. Lipase normal. Urinalysis unremarkable. Troponin normal. HCG negative. Alcohol and tox negative. CT abdomen showed no acute process. Emergency Department Course and Treatment: Patient had some medical complaints but also some associated psychological concerns. She was not overtly suicidal, but I did place precautions until evaluation was completed. Her medical workup was all unremarkable. She received morphine and Zofran and her symptoms improved. No new or different findings. Patient continues to have paranoid thoughts about what she is eating. She does not feel comfortable eating at home. I am concerned that she might not be able to take care of herself. She is not overtly suicidal or homicidal. I will have her evaluated by crisis. The oncoming doctor will follow up with their assessment. Treatment Plan: As above Disposition: Pending crisis evaluation Impression: 1. Abdominal pain 2. Psychosis This note was generated with [employer] software. It may contain incorrect words, spelling, and punctuation that were not noted in review of the chart prior to signing ED Disposition - Plan for ED Patient: Chief Complaint: Flank Pain Referrals: Katharina Baron,Daniela Alcazar [Primary Care Provider] -
[2018-05-14 17:10] VITALS: BP 123/76; PULSE 91; RESP 16; O2SAT 98
--- NOTE | 2018-05-14 17:47 | ED.VISSUMM ---
- ER Visit Summary Date of Service: 05/14/18 Chief Complaint: [] History of Present Illness: The patient is a 37 F [] Physical Examination: [] Test Results: [] Emergency Department Course and Treatment: [] Treatment Plan: [] Disposition: [] Impression: [] This note was generated with [employer] dictation software. It may contain incorrect words, spelling, and punctuation that were not noted in review of the chart prior to signing ED Disposition - Plan for ED Patient: Disposition: Home or Assisted Living Chief Complaint: Flank Pain Diagnosis: Abdominal pain Instructions: ED Abdominal Pain Unkn Cause Referrals: Daniela Shields [Primary Care Provider] -
[2018-05-14 18:10] VITALS: RESP 16
--- NOTE | 2018-05-14 18:11 | ED.RN ---
REVIEWED D/C INSTRUCTIONS, FOLLOW UP CARE, AND S/S THAT WOULD WARRANT A RETURN TO THE ED WITH PT. PT VERBALIZED AN UNDERSTANDING AND DENIES FURTHER QUESTIONS FOR THIS RN. PT SKIN P/W/D, RESP EVEN AND UNLABORED, PT A&O X 3, NO DISTRESS NOTED. PT AMBULATED OUT OF ED, GAIT STEADY.
== END 2018-05-14 18:16 | disposition home or self-care (01) ==
PROVIDERS: Emergency Provider Emergency Medicine
DX: R10.9 Unspecified abdominal pain (principal); F29 Unspecified psychosis not due to a substance or known physiological condition; R19.7 Diarrhea, unspecified; F41.9 Anxiety disorder, unspecified; F32.9 Major depressive disorder, single episode, unspecified; Z79.899 Other long term (current) drug therapy
CPT/HCPCS: 74177; 80053; 80307; 80320; 81001; 83690; 84484; 84703; 85025; 93005; 96360; 96361; 99285; J7030; Q9967; A4216; G0480; J2405

== ENCOUNTER 2018-06-08 19:59 | Emergency (ER) | payer MEDICAID, SELFPAY ==
[2018-06-08 20:00] VITALS: BP 128/75; PULSE 69; RESP 20; TEMP 36.6; O2SAT 98; BMI 29.2
--- NOTE | 2018-06-08 20:24 | EKG12_ITS ---
Test Reason : GEN ILLNESS Blood Pressure : / mmHG Vent. Rate : 058 BPM Atrial Rate : 058 BPM P-R Int : 154 ms QRS Dur : 080 ms QT Int : 430 ms P-R-T Axes : 032 030 009 degrees QTc Int : 422 ms Sinus bradycardia Otherwise normal ECG Confirmed by GABRIEL KHAN, KYM ([id number]), electronic news gathering editor KIRBY BRAR ([id number]) on 06/12/2018 2:37:59 PM Referred By: Mallorie Alexis Confirmed By:KYM RIOS MD
[2018-06-08] MEDS: 0.9% Normal Saline 1,000 ML 1000 ML IV (20:38)
[2018-06-08 20:41] LABS: Bacteria 0 SEEN /hpf (None Seen); Mucous, Urine 0 SEEN /hpf (<or=2+); Red Blood Cells-Urine 0 SEEN /hpf (0-5); White Blood Cells 0 SEEN /hpf (0-5)
[2018-06-08 20:47] LABS: Absolute Lymphocyte Count 2.27 X10^3/ul (0.83-4.51); Absolute Neutrophil Count 5.4 X10^3/uL (2.0-7.7); Basophil# 0.02 X10^3/uL; Basophil% 0.2 % (0-1); Eosinophil# 0.17 X10^3/uL; Hematocrit 41.3 % (37-47); Hemoglobin 13.4 g/dl (12.0-15.0); Lymphocyte # 2.27 X10^3/ul (4.0); Lymphocyte % 26.8 % (19-41); Mean Corp Hgb Conc 32.4 g/gl (32-36); Mean Corpuscular Volume 86.4 fL (81-99); Mean Platelet Vol. 11.2 fl (6.2-12.0); Monocyte# 0.63 X10^3/uL; Monocyte% 7.4 % (0-10); Neutrophil # 5.38 X10^3/uL (2.7-7.7); Neutrophil % 63.5 % (47-70); Platelet Count 228 K/mm3 (150-450); RBC Distribution Width CV 13.2 % (11.6-14.6); Red Blood Count 4.78 M/mm3 (4.2-5.4); White Blood Count 8.5 K/mm3 (4.4-11.0)
[2018-06-08 20:48] LABS: POSITIVE COUNT NO; POSITIVE DIFFERENTIAL NO; POSITIVE MORPHOLOGY NO
[2018-06-08 20:49] LABS: Color, Urine Yellow (Yellow); Glucose, Dipstick Normal (Normal); Ketone-Dipstick Negative (Negative); Leukocyte Esterase-Dipstick Negative /ul (Negative); Nitrite-Dipstick Negative (Negative); Occult Blood-Urine Negative /ul (Negative); Protein-Dipstick Negative (Negative); Specific Gravity, Urine 1.005 (1.002-1.030); Urine Bilirubin Dipstick Negative (Negative); Urine Clarity Clear (Clear); Urine Urobilinogen Normal (Normal)
[2018-06-08 20:57] LABS: Anion Gap 7 (5-15); BUN 15 mg/dL (7-18); BUN/Creat Ratio 17.9 RATIO (10-20); Calcium,Total 8.7 mg/dL (8.5-10.1); Chloride 106 mmol/L (98-107); Creatinine, Serum 0.84 mg/dL (0.55-1.02); EST Glomerular Filtration Rate 80 mL/min (>60); Est Glom Filt Rate - Afr Amer 97 mL/min (>60); Estimated Creatinine Clearance 87.44 ml/min; Glucose 74 mg/dL (74-106); Potassium 3.4 mmol/L (3.5-5.1); Sodium Level 141 mmol/L (136-145)
[2018-06-08 21:04] LABS: Pregnancy, Serum, hCG Quali. NEGATIVE Negative (0-9 Nonpreg)
[2018-06-08 21:07] LABS: Squamous Epithelial Cells - UA 0-5 SEEN /hpf (5-10)
--- NOTE | 2018-06-08 21:57 | ED.DCSUM_ITS ---
- ER Visit Summary Date of Service: 06/08/18 Chief Complaint: Lightheaded, ringing in ear History of Present Illness: The patient is a 37 F who states he became lightheaded early this morning at work. Symptoms seem to improve, but then returned again this evening. She states she had ringing in her left ear earlier that was a very brief episode. That is resolved now. Patient denies vertigo symptoms. She states she had similar symptoms in the past with dehydration. She is also complaining of a rash to the perineal area that she thinks is from leaving a pad on for too long. Physical Examination: Vital signs unremarkable. Patient sitting upright in bed no acute distress. Head and neck examination normal. Heart is regular rate and rhythm. On lung sounds are clear. Abdomen is soft nontender. examination reveals mild skin erythema consistent with contact dermatitis. No blisters or lesions. Neuro exam is normal. Test Results: EKG is sinus bradycardia at 58 bpm with no sign of acute ischemia. CBC and chemistry studies results significant only for potassium of 3.4. Urinalysis is normal. Emergency Department Course and Treatment: Patient is given IV fluids. Repeat evaluation she does feel improved. She is up and ambulate in the ED without difficulty. She will be given 60 mg of potassium chloride here, but no prescription needed for home. She is to increase fluids over the next several days. Treatment Plan: [] Disposition: Discharge Impression: 1. Lightheadedness, improved This note was generated with [employer] dictation software. It may contain incorrect words, spelling, and punctuation that were not noted in review of the chart prior to signing ED Disposition - Plan for ED Patient: Chief Complaint: General Illness Referrals: Daniela Shields [Primary Care Provider] -
[2018-06-08 21:58] VITALS: BP 122/88; PULSE 66; RESP 16; O2SAT 100
--- NOTE | 2018-06-08 21:58 | ED.DEP ---
ED Disposition - Plan for ED Patient: Disposition: Home or Assisted Living Chief Complaint: General Illness Instructions: ED Dizziness UKO Referrals: Katharina Baron,Daniela Alcazar [Primary Care Provider] - As Needed
== END 2018-06-08 22:06 | disposition home or self-care (01) ==
PROVIDERS: Emergency Provider Emergency Medicine; Referring Provider Nurse Practitioner Family
DX: R42 Dizziness and giddiness (principal); J45.909 Unspecified asthma, uncomplicated; K21.9 Gastro-esophageal reflux disease without esophagitis; Z72.0 Tobacco use; R00.1 Bradycardia, unspecified
CPT/HCPCS: 80048; 81001; 84703; 85025; 93005; 99285; J7030

== ENCOUNTER 2018-06-10 10:49 | Emergency (ER) | payer MEDICAID, SELFPAY ==
[2018-06-10 10:50] VITALS: BP 131/77; PULSE 72; RESP 16; TEMP 36.7; O2SAT 99; BMI 29.4
--- NOTE | 2018-06-10 11:18 | ED.VISSUMM ---
- ER Visit Summary Date of Service: 06/10/18 Chief Complaint: [] Would like potassium blood test repeated History of Present Illness: The patient is a 37 F [] patient indicates she was here on in the emergency department, for nonspecific complaints of workup was unremarkable except potassium was 3.4, she was told to basically eat foods containing potassium follow with her physicians to have the potassium repeated as an outpatient, she indicates she sees outpatient providers but she went to the [facility] urgent care who she indicates refused to repeat her potassium level and told her if she wanted it done she is to come back to the emergency department Patient has no complaints other than feeling tired which is a chronic complaint for her there is no new issues no fever no cough chest pain no 6 paresthesias she is insisting that her potassium level be repeated, she does see physicians through outpatient management and through Daniela lee in clinic who are managing allergy type symptoms for her she is on no diuretics , she is not known to have any renal disease or any conditions that cause her to have a low potassium Physical Examination: [] General, no distress resting comfortably, vital signs are within normal range HEENT is generally unremarkable The neck is supple no adenopathy Cardiovascular, regular rate and rhythm Lungs, clear bilateral Abdomen, soft nontender Extremities, no clubbing cyanosis or edema Neurologic, awake alert answering questions appropriately moving all 4 extremities, she is completely in no distress again insisting that her potassium will be redrawn Test Results: [] Emergency Department Course and Treatment: [] I explained to the patient the potassium level 3.4 is typically treated with supplemental foods high in potassium she is having normal general health condition with no changes of any kind she has outpatient providers who can see her and manage his condition but she is overly concerned about the potassium and wants it repeated, she wants nothing else done Treatment Plan: [] A Chem-7 panel is obtained is unremarkable potassium 4.1 patient will follow up with her family physicians for further management of the above Disposition: [] Home stable Impression: [] Generalized fatigue, history of hypokalemia 3.4 This note was generated with [employer] software. It may contain incorrect words, spelling, and punctuation that were not noted in review of the chart prior to signing ED Disposition - Plan for ED Patient: Chief Complaint: General Illness Referrals: Daniela Shields [Primary Care Provider] -
[2018-06-10 11:44] LABS: Anion Gap 8 (5-15); BUN 9 mg/dL (7-18); BUN/Creat Ratio 11.8 RATIO (10-20); Calcium,Total 8.8 mg/dL (8.5-10.1); Chloride 107 mmol/L (98-107); Creatinine, Serum 0.76 mg/dL (0.55-1.02); EST Glomerular Filtration Rate 90 mL/min (>60); Est Glom Filt Rate - Afr Amer 108 mL/min (>60); Estimated Creatinine Clearance 96.64 ml/min; Glucose 83 mg/dL (74-106); Potassium 4.1 mmol/L (3.5-5.1); Sodium Level 141 mmol/L (136-145)
--- NOTE | 2018-06-10 11:48 | ED.DEP ---
ED Disposition - Plan for ED Patient: Chief Complaint: General Illness Instructions: ED Weakness UKO Referrals: Katharina Baron,Daniela Alcazar [Primary Care Provider] -
== END 2018-06-10 11:56 | disposition home or self-care (01) ==
LOC: ED 11:25
PROVIDERS: Emergency Provider Emergency Medicine
DX: R53.83 Other fatigue (principal)
CPT/HCPCS: 36415; 80048; 99282

== ENCOUNTER 2018-06-12 21:34 | Emergency (ER) | payer MEDICAID, SELFPAY ==
[2018-06-12 21:37] VITALS: BP 127/78; PULSE 66; RESP 18; TEMP 36.6; O2SAT 97; BMI 28.7
--- NOTE | 2018-06-12 22:29 | EKG12_ITS ---
Test Reason : CP Blood Pressure : / mmHG Vent. Rate : 077 BPM Atrial Rate : 077 BPM P-R Int : 162 ms QRS Dur : 076 ms QT Int : 382 ms P-R-T Axes : 065 039 022 degrees QTc Int : 432 ms Normal sinus rhythm Normal ECG Confirmed by CORY KHAN, THOMAS ([id number]), dictionary editor KIRBY BRAR ([id number]) on 06/15/2018 1:36:03 PM Referred By: JESIKA Confirmed By:THOMAS RAY MD
--- NOTE | 2018-06-12 22:30 | RAD_ITS ---
STUDY: X-RAY CHEST REASON FOR EXAM: Female, 37 years old. Chest pain with cough. TECHNIQUE: Portable chest. COMPARISON: 03/19/2018. FINDINGS: The lungs are clear and expanded. There is no demonstrated pleural abnormality. Normal size heart. Normal mediastinum and jennifer. Normal visualized pulmonary arteries. Normal visualized aortic arch and descending thoracic aorta. Normal visualized thoracic spine. Normal visualized ribs, clavicles, and shoulders. There is no demonstrated abnormality of the visualized soft tissue structures of the upper abdomen. RAD/Chest 1 View (Portable) IMPRESSION: Normal x-ray examination of the chest. Electronically Signed: Ayleen Edwards MD at 22:52 EDT Tel , Service support ,
--- NOTE | 2018-06-12 22:52 | ED.RN ---
attempted an IV unable to obtain IV access able to obtain blood sample. At this time patient refused further attempts and toradol medication. Discussion about different medications given at this time. Patient will be ordered motrin for pain and no further attempts at IV at this time
[2018-06-12 22:59] LABS: Absolute Lymphocyte Count 2.44 X10^3/ul (0.83-4.51); Basophil# 0.02 X10^3/uL; Basophil% 0.2 % (0-1); Eosinophil# 0.22 X10^3/uL; Eosinophils% 2.1 % (0-5); Hematocrit 40.5 % (37-47); Hemoglobin 13.4 g/dl (12.0-15.0); Lymphocyte # 2.44 X10^3/ul (4.0); Lymphocyte % 23.5 % (19-41); Mean Corp Hgb Conc 33.1 g/gl (32-36); Mean Corpuscular Hgb 28.5 pg (27.0-32.0); Mean Corpuscular Volume 86.2 fL (81-99); Monocyte% 6.8 % (0-10); Neutrophil # 6.97 X10^3/uL (2.7-7.7); Neutrophil % 67.2 % (47-70); Platelet Count 209 K/mm3 (150-450); RBC Distribution Width CV 13.1 % (11.6-14.6); RBC Distribution Width SD 41.5 fl (35.1-43.9); White Blood Count 10.4 K/mm3 (4.4-11.0)
[2018-06-12 23:01] LABS: Differential Indicated SCAN CRITERIA MET; POSITIVE COUNT NO; POSITIVE DIFFERENTIAL NO; POSITIVE MORPHOLOGY YES
[2018-06-12 23:03] LABS: Erythrocyte Sedimentation Rate 8 mm/hr (0-20)
[2018-06-12 23:09] LABS: D-Dimer Quantitative (DVT/PE) 0.29 FEU/ug/m (0.27-0.49)
[2018-06-12 23:10] LABS: Anion Gap 7 (5-15); BUN 18 mg/dL (7-18); BUN/Creat Ratio 20.3 RATIO (10-20); Calcium,Total 8.5 mg/dL (8.5-10.1); Chloride 107 mmol/L (98-107); Creatinine, Serum 0.89 mg/dL (0.55-1.02); EST Glomerular Filtration Rate 75 mL/min (>60); Est Glom Filt Rate - Afr Amer 91 mL/min (>60); Estimated Creatinine Clearance 82.53 ml/min; Glucose 82 mg/dL (74-106); Potassium 3.9 mmol/L (3.5-5.1); Sodium Level 140 mmol/L (136-145)
[2018-06-12 23:17] LABS: Platelet Estimate ADEQUATE (ADEQ); Red Cell Morphology NORM C+C NORMAL (NORM C&C)
[2018-06-12] MEDS: Ibuprofen 600 MG Tablet PO (23:18)
--- NOTE | 2018-06-13 | ED.VISSUMM ---
- ER Visit Summary Date of Service: 06/13/18 Chief Complaint: [Chest pain] History of Present Illness: The patient is a 37 F [presents to the emergency department complaint of chest pain that started around 9:10 PM. Patient states that she had gone to bed when she developed a sharp shooting pain in her left chest. Patient states that she is currently dealing with head cold but she has had no real cough. Patient denies recent travel or surgery. Patient denies nausea or vomiting. She denies shortness of breath. Patient rates her pain an 8 out of 10 currently. Patient not had any fever.] Physical Examination: [HEENT-PERRLA, EOMI. Cranial nerves II through XII grossly intact. TMs clear. Mucous membranes moist. No adenopathy. Cardiovascular-regular rate and rhythm without murmur or ectopy Lungs-clear to auscultation, chest wall stable without crepitus or subcu emphysema. Patient does have tenderness palpation over left anterior chest wall that seems to reproduce her pain. Abdomen-normoactive bowel sounds, soft, nontender, no rebound or rigidity, no peritoneal signs. Extremities-intact ?4, normal range of motion, normal pulses, atraumatic] Test Results: [EKG obtained arrival shows sinus rhythm with no acute ST segment changes. CBC with differential is normal. Chemistries were normal. Troponin is less than 0.015. D-dimer is normal at 0.29.] Emergency Department Course and Treatment: [Patient initially was ordered Toradol which she refused and then she asked for Tylenol which she was given p.o.] Treatment Plan: [Patient will be given a prescription for naproxen as long as there is no allergy for such. Patient advised to follow-up with primary care physician within next 3-5 days.] Disposition: [Discharged home in stable condition] Impression: [Chest wall pain] This note was generated with [employer] dictation software. It may contain incorrect words, spelling, and punctuation that were not noted in review of the chart prior to signing ED Disposition - Plan for ED Patient: Chief Complaint: Chest Pain Referrals: Daniela Shields [Primary Care Provider] -
--- NOTE | 2018-06-13 00:03 | ED.DCSUM_ITS ---
- ER Visit Summary Date of Service: 06/13/18 Chief Complaint: [Chest pain] History of Present Illness: The patient is a 37 F [presents to the emergency department complaint of chest pain that started around 9:10 PM. Patient states that she had gone to bed when she developed a sharp shooting pain in her left chest. Patient states that she is currently dealing with head cold but she has had no real cough. Patient denies recent travel or surgery. Patient denies nausea or vomiting. She denies shortness of breath. Patient rates her pain an 8 out of 10 currently. Patient not had any fever.] Physical Examination: [HEENT-PERRLA, EOMI. Cranial nerves II through XII grossly intact. TMs clear. Mucous membranes moist. No adenopathy. Cardiovascular-regular rate and rhythm without murmur or ectopy Lungs-clear to auscultation, chest wall stable without crepitus or subcu emphy sema. Patient does have tenderness palpation over left anterior chest wall that seems to reproduce her pain. Abdomen-normoactive bowel sounds, soft, nontender, no rebound or rigidity, no peritoneal signs. Extremities-intact ?4, normal range of motion, normal pulses, atraumatic] Test Results: [EKG obtained arrival shows sinus rhythm with no acute ST segment changes. CBC with differential is normal. Chemistries were normal. Troponin is less than 0.015. D-dimer is normal at 0.29.] Emergency Department Course and Treatment: [Patient initially was ordered Toradol which she refused and then she asked for Tylenol which she was given p.o.] Treatment Plan: [Patient will be given a prescription for naproxen as long as there is no allergy for such. Patient advised to follow-up with primary care physician within next 3-5 days.] Disposition: [Discharged home in stable condition] Impression: [Chest wall pain] This note was generated with [employer] dictation software. It may contain incorrect words, spelling, and punctuation that were not noted in review of the chart prior to signing ED Disposition - Plan for ED Patient: Chief Complaint: Chest Pain Referrals: Daniela Shields [Primary Care Provider] -
--- NOTE | 2018-06-13 00:03 | ED.DEP ---
ED Disposition - Plan for ED Patient: Chief Complaint: Chest Pain Instructions: ED Chest Pain [facility], ED Chest Pain Costochondritis Prescriptions: Naproxen [Naprosyn] 500 mg PO BID PRN #20 tab Referrals: Daniela Shields [Primary Care Provider] - 3-5 Days
[2018-06-13 00:15] VITALS: BP 114/64; PULSE 64; RESP 18; O2SAT 99
== END 2018-06-13 00:16 | disposition home or self-care (01) ==
PROVIDERS: Emergency Provider Emergency Medicine
DX: R07.89 Other chest pain (principal); J45.909 Unspecified asthma, uncomplicated
CPT/HCPCS: 71045; 80048; 84484; 85025; 85379; 85652; 93005; 96361; 96374; 99285; A4216

== ENCOUNTER 2018-06-17 09:20 | Emergency (ER) | payer MEDICAID, SELFPAY ==
[2018-06-17 09:21] VITALS: BP 121/85; PULSE 90; RESP 18; TEMP 36.6; O2SAT 98; BMI 28.8
--- NOTE | 2018-06-17 09:47 | ED.VISSUMM ---
- ER Visit Summary Date of Service: 06/17/18 Chief Complaint: Insomnia and abdominal pain History of Present Illness: The patient is a 37 F who presents for 24 hours of insomnia and abdominal pain today. Patient states her chief complaint is the insomnia. She has not slept since yesterday morning at 7:30 AM. She has had some stress in her life and thinks this is contributing. She did not try any medications to help with sleep that she does not like to take medicine. She is also complaining of abdominal pain for the last several hours, and has had 4-6 normal to loose bowel movements. No overt diarrhea, nausea, vomiting. Abdominal pain is mid to lower. She denies . She is having dysuria and frequency. History of anxiety. Patient denies any medication use. Patient states she drinks hand soap around midnight last night. She was washing her hands and was thirsty, so she used her hands to cup water under the faucet and drank it. She states she tasted soap in her mouth. She is concerned that she has ingested the liquid soap. She denies intentionally drinking straight out of the bottle. Physical Examination: Vital signs: afebrile, hemodynamically stable, no hypoxia on room air General: well nourished, well developed, in no distress Skin: warm, dry, no rash, no pallor HEENT: normocephalic and atraumatic; PERRL, EOMI, moist mucous membranes, oropharynx is clear without lesions Cardiovascular: regular rate and rhythm without murmurs, no peripheral edema, 2+ pulses all distal extremities Respiratory: No increased work of breathing, lungs are clear to auscultation bilaterally, no rales, rhonchi or wheezing Abdominal: Abdomen is soft, nontender to deep palpation with normoactive bowel sounds, no guarding or rebound, no masses MSK: Moves all extremities, no deformities, normal strength Neuro: Awake and alert, oriented ?4. No facial droop, sensation and motor function intact and symmetric Test Results: Abnormal Lab Results 06/17/18 09:55 Urine Color Yellow Urine Clarity Clear Urine pH 6.0 Ur Specific [place] 1.015 Urine Protein Negative Urine Glucose (UA) Normal Urine Ketones Negative Urine Occult Blood 10 H Urine Nitrite Negative Urine Bilirubin Negative Urine Urobilinogen Normal Ur Leukocyte Esterase Negative Urine RBC 0 SEEN Urine WBC 0 SEEN Ur Squamous Epith Cells 0-5 SEEN Urine Bacteria RARE Urine Mucus 0 SEEN Urine Test Negative Emergency Department Course and Treatment: Patient's complaint of drinking hand soap is actually her drinking water out of freshly wash hands, and does not sound consistent with actual ingestion of hand soap. Patient was reassured that this is not dangerous. We discussed her insomnia, and I recommended she try Benadryl or another [id number] antihistamine. She stated that she did not like taking medications and thus did not want to try them. Urine was checked given the patient is complaining of lower abdominal pain and urinary symptoms. It was negative for infection. Patient was instructed to follow-up with her primary care doctor regarding the insomnia, especially if she does not want to take any medications, prescription or otherwise. Prior to discharge, patient began complaining that she has recently had a headache and neck pain, with a being the worst headache of her life yesterday but currently resolved. I encouraged patient to follow-up with her doctor regarding this, and that no further workup was necessary at this time as she is currently not having a headache or neck pain. Patient also was informed she can return to the emergency department immediately if she has the worst headache of her life. Discharged home. Treatment Plan: [] Disposition: [] Impression: Insomnia, nonspecific abdominal pain, multiple unrelated complaints This note was generated with [employer] dictation software. It may contain incorrect words, spelling, and punctuation that were not noted in review of the chart prior to signing ED Disposition - Plan for ED Patient: Disposition: Home or Assisted Living Chief Complaint: Abd Pain Instructions: ED Abdominal Pain Unkn Cause, ED Insomnia Referrals: Daniela Shields [Primary Care Provider] - As soon as possible Additional Instructions: Please follow-up with your doctor within the week to discuss your multiple complaints. Your urine was negative for infection. Please discuss your recurring neck pain and headaches with your doctor. Use [id number] pain medication as needed for aches and pains. You may try Benadryl to help you sleep. If you have any worsening of your condition or any new concerning symptoms, please return immediately to the emergency department for another evaluation.
[2018-06-17 10:09] LABS: Mucous, Urine 0 SEEN /hpf (<or=2+); Red Blood Cells-Urine 0 SEEN /hpf (0-5); White Blood Cells 0 SEEN /hpf (0-5)
[2018-06-17 10:12] LABS: Color, Urine Yellow (Yellow); Glucose, Dipstick Normal (Normal); Ketone-Dipstick Negative (Negative); Leukocyte Esterase-Dipstick Negative /ul (Negative); Nitrite-Dipstick Negative (Negative); Occult Blood-Urine 10 /ul (Negative); Protein-Dipstick Negative (Negative); Specific Gravity, Urine 1.015 (1.002-1.030); Urine Bilirubin Dipstick Negative (Negative); Urine Clarity Clear (Clear); Urine Urobilinogen Normal (Normal)
[2018-06-17 10:20] LABS: Bacteria RARE /hpf (None Seen); Internal QC Validated? YES +Cl - CLEAR BKGD; Pregnancy, Urine Negative Negative; Squamous Epithelial Cells - UA 0-5 SEEN /hpf (5-10)
--- NOTE | 2018-06-17 11:48 | DCINST.ED_ITS ---
ED Disposition - Plan for ED Patient: Disposition: Home or Assisted Living Chief Complaint: Abd Pain Instructions: ED Abdominal Pain Unkn Cause, ED Insomnia Referrals: Daniela Shields [Primary Care Provider] - As soon as possible Additional Instructions: Please follow-up with your doctor within the week to discuss your multiple complaints. Your urine was negative for infection. Please discuss your rec urring neck pain and headaches with your doctor. Use [id number]-[id number] pain medication as needed for aches and pains. You may try Benadryl to help you sleep. If you have any worsening of your condition or any new concerning symptoms, please return immediately to the emergency department for another evaluation.
[2018-06-17 12:32] VITALS: BP 135/86; PULSE 73; RESP 17
== END 2018-06-17 12:33 | disposition home or self-care (01) ==
PROVIDERS: Emergency Provider Emergency Medicine
DX: G47.00 Insomnia, unspecified (principal); R10.9 Unspecified abdominal pain; R30.0 Dysuria; R35.0 Frequency of micturition
CPT/HCPCS: 81001; 81025; 87086

== ENCOUNTER 2018-06-17 15:12 | Emergency (ER) | payer MEDICAID, SELFPAY ==
[2018-06-17 15:13] VITALS: BP 131/78; PULSE 80; RESP 18; TEMP 36.6; O2SAT 97; BMI 28.1
--- NOTE | 2018-06-17 16:35 | ED.DCSUM_ITS ---
- ER Visit Summary Date of Service: 06/17/18 Chief Complaint: [] History of Present Illness: The patient is a 37 F [anxiety presents the emergency department complaint of. 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 Patient currently on no medications for anxiety. Patient used to be on Lexapro but has been off of it for about 4 months because she did not like the way it made her feel. Patient states she has been more irritable and has had off-and-on headaches and has been hungry and thirsty for about 3 months. Patient denies feeling suicidal. Patient denies feeling homicidal. She denies any hallucinations.] Physical Examination: [HEENT-PERRLA, EOMI. Cranial nerves II through XII grossly intact. TMs clear. Mucous membranes moist. No adenopathy. Cardiovascular-regular rate and rhythm without murmur or ectopy Lungs-clear to auscultation, chest wall stable without crepitus or subcu emphysema Abdomen-normoactive bowel sounds, soft, nontender, no rebound or rigidity, no peritoneal signs. Extremities-intact ?4, normal range of motion, normal pulses, atraumatic] Test Results: [CBC with differential is normal. Chemistries were normal. Toxicology screen was negative. Alcohol was negative.] Emergency Department Course and Treatment: [Patient was seen by crisis at her request. Patient is not suicidal and does not meet any type of admission criteria. Patient refused Ativan in the emergency department. ] Treatment Plan: [Patient will be given a prescription for Vistaril] Disposition: [Discharged home in stable condition] Impression: [Anxiety Depression] This note was generated with [employer] dictation software. It may contain incorrect words, spelling, and punctuation that were not noted in review of the chart prior to signing ED Disposition - Plan for ED Patient: Chief Complaint: Anxiety Referrals: Daniela Shields [Primary Care Provider] -
[2018-06-17 17:37] LABS: Amphetamine Urine VISTA NEGATIVE (<1000 ng/mL); Barbiturate Urine VISTA NEGATIVE (< 200 ng/mL); Benzodiazepine Urine VISTA NEGATIVE (< 200 ng/mL); Cocaine Urine VISTA NEGATIVE (< 300 ng/mL); Ecstacy Urine VISTA NEGATIVE (< 500 ng/mL); Methadone Urine VISTA NEGATIVE (< 300 ng/mL); PCP Urine VISTA NEGATIVE (< 25 ng/mL); THC Urine VISTA NEGATIVE (< 50 ng/mL); Vista UDS pH Range 6
[2018-06-17 17:52] LABS: Absolute Lymphocyte Count 2.16 X10^3/ul (0.83-4.51); Absolute Neutrophil Count 5.7 X10^3/uL (2.0-7.7); Basophil# 0.01 X10^3/uL; Basophil% 0.1 % (0-1); Eosinophil# 0.11 X10^3/uL; Eosinophils% 1.3 % (0-5); Hematocrit 42.9 % (37-47); Hemoglobin 14.3 g/dl (12.0-15.0); Lymphocyte # 2.16 X10^3/ul (4.0); Lymphocyte % 25.1 % (19-41); Mean Corp Hgb Conc 33.3 g/gl (32-36); Mean Corpuscular Hgb 28.5 pg (27.0-32.0); Mean Corpuscular Volume 85.6 fL (81-99); Mean Platelet Vol. 11.2 fl (6.2-12.0); Monocyte# 0.61 X10^3/uL; Monocyte% 7.1 % (0-10); Neutrophil % 66.3 % (47-70); Platelet Count 231 K/mm3 (150-450); RBC Distribution Width CV 13.1 % (11.6-14.6); RBC Distribution Width SD 41.2 fl (35.1-43.9); Red Blood Count 5.01 M/mm3 (4.2-5.4); White Blood Count 8.6 K/mm3 (4.4-11.0)
[2018-06-17 17:56] LABS: POSITIVE COUNT NO; POSITIVE DIFFERENTIAL NO; POSITIVE MORPHOLOGY NO
[2018-06-17 18:05] LABS: Anion Gap 6 (5-15); BUN 10 mg/dL (7-18); BUN/Creat Ratio 12.8 RATIO (10-20); Chloride 108 mmol/L (98-107); Creatinine, Serum 0.78 mg/dL (0.55-1.02); EST Glomerular Filtration Rate 87 mL/min (>60); Est Glom Filt Rate - Afr Amer 105 mL/min (>60); Estimated Creatinine Clearance 94.17 ml/min; Glucose 84 mg/dL (74-106); Potassium 3.6 mmol/L (3.5-5.1); Sodium Level 140 mmol/L (136-145)
[2018-06-17 18:14] LABS: Alcohol, Blood (Medical)-Serum < 3.0 mg/dL
[2018-06-17 18:17] LABS: Pregnancy, Serum, hCG Quali. NEGATIVE Negative (0-9 Nonpreg)
--- NOTE | 2018-06-17 19:41 | ED.DEP ---
ED Disposition - Plan for ED Patient: Chief Complaint: Anxiety Instructions: ED Stress React, ED Depression Prescriptions: Hydroxyzine Pamoate [Vistaril] 50 mg PO TID PRN PRN #20 cap PRN Reason: Anxiety Referrals: Daniela Shields [Primary Care Provider] - 3-5 Days
--- NOTE | 2018-06-17 19:42 | ED.DEP ---
ED Disposition - Plan for ED Patient: Chief Complaint: Anxiety Instructions: ED Stress React, ED Depression, Treating Insomnia Prescriptions: Hydroxyzine Pamoate [Vistaril] 50 mg PO TID PRN PRN #20 cap PRN Reason: Anxiety Referrals: Daniela Shields [Primary Care Provider] - 3-5 Days
[2018-06-17 19:58] VITALS: BP 131/78; PULSE 80; RESP 15; O2SAT 97
== END 2018-06-17 20:10 | disposition home or self-care (01) ==
LOC: ED 17:41
PROVIDERS: Emergency Provider Emergency Medicine
DX: F41.9 Anxiety disorder, unspecified (principal); R10.9 Unspecified abdominal pain; Z72.0 Tobacco use
CPT/HCPCS: 80048; 80307; 80320; 81001; 81025; 84703; 85025; 87086; 99282; 99285; G0480

== ENCOUNTER 2018-06-19 07:15 | Emergency (ER) | payer MEDICAID, SELFPAY ==
[2018-06-19] VITALS (8 sets, daily range): BP systolic 122–135; BP diastolic 80–99; PULSE 71–78; RESP 12–16; TEMP 36.8; O2SAT 96–99; BMI 26.6
--- NOTE | 2018-06-19 07:28 | ED.DCSUM_ITS ---
- ER Visit Summary Date of Service: 06/19/18 Chief Complaint: Paranoia, insomnia History of Present Illness: The patient is a 37 F who states that she has been feeling paranoid over the past 3 months. She states that when I wake up in the morning and I put something in my hand I feel like I am not using it for its exact purpose. When asked her to clarify this for me she was unable to. She states that she was telling this to the counseling center staff on the phone and they told her to come in to get evaluated. She states that she has no suicidal ideation at this time but feels like if I am at home I could hurt myself. She says she does feel anxious. According to her records, the patient has been here multiple times this month for a variety of complaints including anxiety and insomnia. Physical Examination: Vital signs reviewed. HEENT exam unremarkable. Heart is regular rate and rhythm without murmurs. Lungs are clear to auscultation. Abdomen is soft and nontender. Extremities reveal no edema. Skin exam normal. Neurologic exam normal. The patient is a flat affect. She does voice some paranoid ideation. She has had some passive suicidal thoughts, but does not have any currently. She has poor judgment. She does not appear to be internally stimulated. Test Results: [] Emergency Department Course and Treatment: At this point, the patient does not voice any suicidal thoughts. Therefore, I do not feel she needs 1:1 close observation at this time. Screening labs were negative. Tox and alcohol are negative. Patient was evaluated by crisis and they feel she needs transfer to a facility. We are awaiting acceptance from a psychiatric facility. Treatment Plan: [] Disposition: Transfer Impression: Acute psychosis This note was generated with [employer] dictation software. It may contain incorrect words, spelling, and punctuation that were not noted in review of the chart prior to signing ED Disposition - Plan for ED Patient: Chief Complaint: Mental Health Referrals: Daniela Shields [Primary Care Provider] -
--- NOTE | 2018-06-19 07:54 | ED.RN ---
PT IS RUDE TO STAFF. REFUSES LABS AT THIS TIME.
--- NOTE | 2018-06-19 07:56 | ED.RN ---
DISCUSSED 1:[address] BRYAN DOES NOT FEEL THAT PT NEEDS TO HAVE 1:1 OBSERVATION AT THIS TIME.
[2018-06-19 08:31] LABS: Amphetamine Urine VISTA NEGATIVE (<1000 ng/mL); Barbiturate Urine VISTA NEGATIVE (< 200 ng/mL); Benzodiazepine Urine VISTA NEGATIVE (< 200 ng/mL); Cocaine Urine VISTA NEGATIVE (< 300 ng/mL); Ecstacy Urine VISTA NEGATIVE (< 500 ng/mL); Methadone Urine VISTA NEGATIVE (< 300 ng/mL); PCP Urine VISTA NEGATIVE (< 25 ng/mL); THC Urine VISTA NEGATIVE (< 50 ng/mL); Vista UDS pH Range 5
[2018-06-19 08:43] LABS: Absolute Lymphocyte Count 1.65 X10^3/ul (0.83-4.51); Absolute Neutrophil Count 4.8 X10^3/uL (2.0-7.7); Basophil# 0.02 X10^3/uL; Basophil% 0.3 % (0-1); Eosinophil# 0.12 X10^3/uL; Eosinophils% 1.7 % (0-5); Hematocrit 43.4 % (37-47); Hemoglobin 14.4 g/dl (12.0-15.0); Lymphocyte # 1.65 X10^3/ul (4.0); Mean Corp Hgb Conc 33.2 g/gl (32-36); Mean Corpuscular Hgb 28.5 pg (27.0-32.0); Mean Corpuscular Volume 85.8 fL (81-99); Mean Platelet Vol. 11.2 fl (6.2-12.0); Monocyte# 0.55 X10^3/uL; Monocyte% 7.7 % (0-10); Neutrophil # 4.83 X10^3/uL (2.7-7.7); Neutrophil % 67.2 % (47-70); POSITIVE COUNT NO; POSITIVE DIFFERENTIAL NO; POSITIVE MORPHOLOGY NO; Platelet Count 219 K/mm3 (150-450); RBC Distribution Width CV 13.2 % (11.6-14.6); Red Blood Count 5.06 M/mm3 (4.2-5.4); White Blood Count 7.2 K/mm3 (4.4-11.0)
--- NOTE | 2018-06-19 08:43 | ED.RN ---
PER PT REQUEST BEDDING CHANGED. PT HAD TO EXAMINE ALL LABS TUBES PRIOR TO LABS BEING DRAWN.
[2018-06-19 08:58] LABS: Anion Gap 8 (5-15); BUN 12 mg/dL (7-18); Calcium,Total 8.9 mg/dL (8.5-10.1); Chloride 105 mmol/L (98-107); EST Glomerular Filtration Rate 85 mL/min (>60); Est Glom Filt Rate - Afr Amer 103 mL/min (>60); Estimated Creatinine Clearance 91.81 ml/min; Glucose 86 mg/dL (74-106); Potassium 3.8 mmol/L (3.5-5.1); Sodium Level 139 mmol/L (136-145)
[2018-06-19 09:07] LABS: Pregnancy, Serum, hCG Quali. NEGATIVE Negative (0-9 Nonpreg)
[2018-06-19 09:08] LABS: Alcohol, Blood (Medical)-Serum < 3.0 mg/dL
--- NOTE | 2018-06-19 09:18 | ED.RN ---
CALLED [facility] TO HAVE THEM COME SEE PATIENT. DATE NIGHT SITTER STATED THAT SHE WOULD LET THEM KNOW.
--- NOTE | 2018-06-19 10:36 | ED.RN ---
[facility] WILL BE OVER TO EVALUATE PATIENT SOMETIME AFTER 11.
--- NOTE | 2018-06-19 11:12 | ED.RN ---
PT HAS COME TO RN DESK AND/OR CALLED NURSES INTO ROOM SEVERAL TIMES. PT REQUESTED SOMETHING ELSE TO EAT. HAM SANDWHICH PLAIN, WITH CONDIMENTS ON SIDE. PT REQUESTS SOMETHING TO DRINK, NOTHING BLUE OR PURPLE COLORED OR TEXTURE OF GRAPE JUICE. PT QUESTIONING IF BREAD IS ONLY WHEAT BREAD. PT REASSURED THAT IT WAS WHEAT BREAD ONLY REQUESTED.
--- NOTE | 2018-06-19 11:47 | ED.RN ---
BENY WILL BE HERE IN ABOUT 30 MINUTES TO SEE PATIENT.
--- NOTE | 2018-06-19 16:01 | ED.RN ---
PATIENT WAS ACCEPTED AT [facility]. ACCEPTING INFORMATION GIVEN. NURSE WILL CALL REPORT.
== END 2018-06-19 17:14 | disposition short-term general hospital (02) ==
LOC: ED 07:41
PROVIDERS: Emergency Provider Emergency Medicine
DX: F23 Brief psychotic disorder (principal); F41.9 Anxiety disorder, unspecified; Z72.0 Tobacco use
CPT/HCPCS: 36415; 80048; 80307; 80320; 84703; 85025; 99285; G0480

== ENCOUNTER 2018-07-13 00:31 | Emergency (ER) | payer MEDICAID, SELFPAY ==
[2018-07-13 00:33] VITALS: BP 139/90; PULSE 100; RESP 20; TEMP 36.8; O2SAT 97; BMI 29.9
--- NOTE | 2018-07-13 00:54 | ED.DCSUM_ITS ---
- ER Visit Summary Date of Service: 07/13/18 Chief Complaint: Cannot sleep History of Present Illness: The patient is a 37 F who cannot sleep. She called a cab to try to get to the emergency department since she was in her bed and could not sleep, however she could not get a cab therefore she called an amb ulance. She also claims she was cold but that is gone. No fevers. She is asking me why she was cold and chills. Physical Examination: Not appear in acute distress. Moist mucous membranes, no obvious facial deformity No C-spine tenderness supple neck. Regular rate and rhythm without any obvious murmurs Clear lungs bilaterally speaking in full sentences without any obvious respiratory distress Abdomen soft and nontender no guarding or rebound Moves all extremities without any difficulty or pain. Skin does not show any obvious rashes or lesions, no trauma. Alert oriented ?3 with no gross focal deficit Emergency Department Course and Treatment: I saw the patient at 1245, per hospital policy I am not able to give any sleep aids, I will give her Benadryl and she will take a cab back home. Again she asked me why she was having chills, she has a normal exam without fever I cannot answer that question. Regardless she is medically stable and based on my history and physical exam I do not see any signs of impending doom Disposition: Discharge stable condition Impression: Insomnia This note was generated with [employer] dictation software. It may contain incorrect words, spelling, and punctuation that were not noted in review of the chart prior to signing ED Disposition - Plan for ED Patient: Disposition: Home or Assisted Living Chief Complaint: General Illness Instructions: Treating Insomnia Referrals: Daniela Shields [Primary Care Provider] - 3-5 Days
[2018-07-13 01:09] VITALS: BP 139/90; PULSE 100; RESP 20; O2SAT 98
--- NOTE | 2018-07-13 01:14 | ED.RN ---
MD AWARE THAT THE PT CAN NOT TAKE BENADRYL BECAUSE SHE HAS ANXIETY,MD AWARE.
== END 2018-07-13 02:46 | disposition home or self-care (01) ==
LOC: ED 00:58
PROVIDERS: Emergency Provider Emergency Medicine
DX: G47.00 Insomnia, unspecified (principal)
CPT/HCPCS: 99284

== ENCOUNTER 2018-07-24 13:38 | Emergency (ER) | payer MEDICAID, SELFPAY ==
[2018-07-19 15:24] VITALS: BMI 31.6
[2018-07-24 13:40] VITALS: BP 120/76; PULSE 81; RESP 16; TEMP 36.8; O2SAT 97; BMI 29.9
--- NOTE | 2018-07-24 13:56 | ED.VISSUMM ---
- ER Visit Summary Date of Service: 07/24/18 Chief Complaint: Rash History of Present Illness: The patient is a 37 F presents to the emergency department with rash in her suprapubic area. The patient states that she has had it for almost a week. She states that [facility] She had negative testing for yeast and bacterial vaginosis. She states is involving mostly around the pubic hair. She does describe it is mildly itching. She has not taken anything for it. She denies any fevers or chills. She denies any vaginal discharge. Physical Examination: Exam is relatively unremarkable. 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 She does have an examination is consistent with folliculitis. There is no cellulitis or streaking. There is no abscess. Test Results: [] Emergency Department Course and Treatment: The patient does have allergy to clindamycin, but it is nausea and vomiting to the oral medication. She will be placed on topical clindamycin for folliculitis. She was counseled on local hygiene. She will be discharged home. Treatment Plan: [] Disposition: Discharge Impression: Folliculitis This note was generated with [employer] dictation software. It may contain incorrect words, spelling, and punctuation that were not noted in review of the chart prior to signing ED Disposition - Plan for ED Patient: Chief Complaint: Rash Instructions: ED Folliculitis Prescriptions: Clindamycin Phosphate [Cleocin T] 60 ml TP TID #1 lotion Referrals: [facility] Loraine,Daniela Alcazar [Primary Care Provider] -
[2018-07-24 14:25] VITALS: BP 124/67; PULSE 71; RESP 15; O2SAT 98
== END 2018-07-24 14:26 | disposition home or self-care (01) ==
LOC: ED 14:13
PROVIDERS: Emergency Provider Emergency Medicine
DX: L73.9 Follicular disorder, unspecified (principal)
CPT/HCPCS: 99282

== ENCOUNTER → 2018-07-24 14:26 | Outpatient (CLI) | payer MEDICAID, SELFPAY ==
[2018-07-19 15:24] VITALS: BMI 31.6
[2018-07-24 13:40] VITALS: BMI 29.9
--- NOTE | 2018-07-24 14:30 | CT_ITS ---
STUDY: CT MAXILLOFACIAL SINUSES REASON FOR EXAM: Female, 37 years old. Sinusitis RADIATION DOSAGE (If Supplied By Facility): CTDIvol = ( 33.45 ) mGy, DLP = ( 889.26 ) mGycm TECHNIQUE: The patient was scanned in a multi detector CT scanner. High resolution axial imaging was performed without the administration of intravenous contrast material. Sagittal and coronal images were reconstructed. Individualized dose optimization techniques were used for this CT. COMPARISON: December 14, 2017 FINDINGS: FRONTAL SINUSES: Normal aeration, without mucosal inflammatory disease. ETHMOIDAL SINUSES: Normal aeration, without mucosal inflammatory disease. MAXILLARY SINUSES: Normal aeration, without mucosal inflammatory disease. SPHENOIDAL SINUSES: Normal aeration, without mucosal inflammatory disease. There is patency of the bilateral maxillary infundibuli with normal uncinate processes, ethmoid bullae, and hiatus semilunaris. Normal bilateral middle turbinates. Normal bilateral inferior turbinates. There is a rightward nasal spur causing slight narrowing of the right-sided nasal canal the level of the right-sided middle turbinate. There is patency of the bilateral nasal airways. The visualized osseous structures are normal. The visualized bilateral orbital contents are normal. CT/Sinus/Facial Bone IMPRESSION: Normal CT examination of the maxillofacial sinuses. Electronically Signed: Danielle Camargo MD at 21:57 EST Tel , Service support ,
== END ==
PROVIDERS: Referring Provider Otolaryngology; Visit Provider Otolaryngology
DX: J32.9 Chronic sinusitis, unspecified (principal)
CPT/HCPCS: 70486

== ENCOUNTER 2018-07-24 19:29 | Emergency (ER) | payer MEDICAID, SELFPAY ==
[2018-07-24 13:40] VITALS: BMI 29.9
[2018-07-24 19:30] VITALS: BP 151/102; PULSE 102; RESP 16; TEMP 36.4; O2SAT 98; BMI 31.0
--- NOTE | 2018-07-24 19:39 | ED.VISSUMM ---
- ER Visit Summary Date of Service: 07/24/18 Chief Complaint: Anxiety History of Present Illness: The patient is a 37 F who states that for the past 2 hours she has been extremely anxious. She states that it has to do with life stressors but does not elaborate any further. Since being picked up by EMS and transported here she is feeling better. She denies any suicidal or homicidal ideation. The patient states that she is treated for a psychiatric condition with Wiggins and Trileptal but will not allow further. Physical Examination: Afebrile vital signs are stable Gen: Well-nourished well-developed Head: Normocephalic atraumatic Eyes: Perrl EOMI ENT: TMs clear no rhinorrhea moist mucous membranes Neck: Supple no lymphadenopathy no JVD nontender CVS: Regular rate rhythm no murmurs normal S1-S2 Respiratory: No distress clear to auscultation bilaterally chest nontender Abdomen: Soft nontender nondistended normal bowel sounds no masses Back: Nontender Extremity: Nontender no edema Skin: Normal color no rash Neuro: alert orientated ?3 CN II-XII intact normal strength sensation reflexes gait cerebellar Psych: Patient has a very flat affect. No suicidal homicidal ideation. The patient has a very monotone voice. She does not appear manic. Test Results: Not indicated Emergency Department Course and Treatment: Patient was seen earlier in the emergency department today. She returned again for an outpatient CT. Now she is back. She has no focal findings. Patient has been extremely demanding of staff requesting a wash cloth and then the washcloth was too warm and then to cold. I do not see any medical emergency here tonight that I assist the patient on. Impression: 1. Anxiety This note was generated with [employer] dictation software. It may contain incorrect words, spelling, and punctuation that were not noted in review of the chart prior to signing ED Disposition - Plan for ED Patient: Disposition: Home or Assisted Living Chief Complaint: Anxiety Instructions: ED Stress React Referrals: Daniela Shields [Primary Care Provider] - 1 Week
[2018-07-24 20:27] VITALS: BP 156/108
[2018-07-24] MEDS: hydrOXYzine PAM 25 MG Capsule PO (20:50)
[2018-07-24 21:25] VITALS: RESP 16
--- NOTE | 2018-07-24 21:38 | ED.RN ---
REVIEWED D/C INSTRUCTIONS, FOLLOW UP CARE, AND S/S THAT WOULD WARRANT A RETURN TO THE ED WITH PT. PT VERBALIZED AN UNDERSTANDING. PT SKIN P/W/D, RESP EVEN AND UNLABORED, PT A&O X 3, NO DISTRESS NOTED. PT AMBULATED OUT OF ED, GAIT STEADY.
== END 2018-07-24 21:39 | disposition home or self-care (01) ==
PROVIDERS: Emergency Provider Emergency Medicine
DX: F41.9 Anxiety disorder, unspecified (principal); J45.909 Unspecified asthma, uncomplicated; F32.9 Major depressive disorder, single episode, unspecified
CPT/HCPCS: 70486; 99282; 99284

== ENCOUNTER 2018-07-25 09:10 | Emergency (ER) | payer MEDICAID, SELFPAY ==
[2018-07-24 19:30] VITALS: BMI 31.0
[2018-07-25 09:11] VITALS: BP 128/79; BP 137/79; PULSE 80; PULSE 84; RESP 16; TEMP 36.4; O2SAT 95; O2SAT 98; BMI 29.6
--- NOTE | 2018-07-25 09:34 | ED.VISSUMM ---
- ER Visit Summary Date of Service: 07/25/18 Chief Complaint: Neck pain shoulder pain History of Present Illness: The patient is a 37 F awake and left-sided neck pain shoulder pain this morning. Symptoms worse with movement. No falls or injuries. No chest pains or shortness of breath. States she is out of her naproxen. No gastric ulcers. Reports numbness at the shoulder region. Patient unclear if she slept on her left side. Physical Examination: General: Alert and oriented ?3, no acute distress HEENT: Normocephalic, atraumatic. Moist mucosa membranes Neck: supple, no midline tenderness, reproducible tenderness left cervical with tension palpated. Cardiovascular: Regular rate and rhythm, no murmurs Respiratory: Normal breath sounds, symmetric, no distress Abdomen: Soft, nontender, nondistended Extremities: Left upper shoulder: Tender palpation proximal shoulder with no deformities. Active full range of motion. Sensation was intact. Pulses intact distally. Neuro: no focal neurological deficits. Test Results: [] Emergency Department Course and Treatment: Patient reproducible muscle tenderness. Did perform a facilitated positional release left side of the neck with some improvement of symptoms. Started on naproxen for which she is tolerated in the past. She is concerned of interactions with her Invega, however no interactions on medication evaluation. She has no chest pains, clinically stable, no concerns for ACS. Reported paresthesia, however sensation intact. She will continue naproxen's at this time and follow-up with her PCP. Patient requested neck exercises instructions which was printed. Treatment Plan: [] Disposition: Discharge Impression: 1. Muscle strain 2. Somatic dysfunction cervical spine This note was generated with [employer] dictation software. It may contain incorrect words, spelling, and punctuation that were not noted in review of the chart prior to signing ED Disposition - Plan for ED Patient: Disposition: Home or Assisted Living Chief Complaint: Upper Extremity Injury Diagnosis: Muscle strain, Cervical (neck) region somatic dysfunction Instructions: ED Strain Muscle Ext, ED Sprain Strain Neck, Neck Problems: Relieving Your Symptoms Prescriptions: Naproxen [Naprosyn] 500 mg PO BID #20 tablet Referrals: Katharina Baron,Daniela Alcazar [Primary Care Provider] - 3-5 Days
[2018-07-25] MEDS: Acetaminophen 325 MG Tablet 650 MG PO (09:47)
--- NOTE | 2018-07-26 09:20 | CM.ED ---
Social Work Note Placed call to Angelica Hickman (pronounced Vangie). Introduced self and role at [facility]. The pt reports that she has stable housing. Explain that she has had a significant number of visits to the ED for what appear to be chronic conditions that may be better served with a consistent physician to follow her care as the ED is not for the purpose of chronic concerns, but rather acute emergencies. She reports that she sees TYLER Gibbs, when she is available, but emphasizes that if she is not then she comes to the ED. Reemphasize that the ED is not the appropriate resource and recommend she establish care with a PCP and utilize other resources such as urgent care or the nurse's line through her insurance. She reports she does have a industrial trainer and has seen Dr. Ferrara in the past here at [facility]. States that she saw him a few weeks ago but is unable to clarify the date. Confirms a hx of anxiety/depression and stress which is consistent with her past records. She does see a counselor once/week at [facility] and reports to have a skilled nursing case manager, Darion. She went to counselor yesterday she states. She also claims to see a counselor, Yecenia, at [facility] and a psychiatrist 1x/month. She is prescribed medications and reports to presently be compliant with them. Also claims to have a skilled nursing case manager through [facility] named Alistair. She requests that PHYLLIS get someone who can come out to her apartment to talk to her. Inform that her pillowcase maker would likely be the best resource for this, but that SW will look into establishing a PCP. Understanding expressed, and inform that SW will be in contact within the next 5 business days. PLAN: Continue to monitor and review for EDCP. If visits continue after implementation of interventions EDCP will be presented to physicians for review. Shara Gasca, CUPROUS CHLORIDE HELPER, [facility]
== END 2018-07-25 09:55 | disposition home or self-care (01) ==
PROVIDERS: Emergency Provider Emergency Medicine
DX: S16.1XXA Strain of muscle, fascia and tendon at neck level, initial encounter (principal); M99.09 Segmental and somatic dysfunction of abdomen and other regions; X58.XXXA Exposure to other specified factors, initial encounter; Y93.9 Activity, unspecified; Y92.89 Other specified places as the place of occurrence of the external cause; Y99.9 Unspecified external cause status
CPT/HCPCS: 99284

== ENCOUNTER 2018-07-29 15:42 | Emergency (ER) | payer MEDICAID, SELFPAY ==
[2018-07-29 15:42] VITALS: BP 134/86; PULSE 91; RESP 16; TEMP 36.4; O2SAT 97; BMI 29.7
--- NOTE | 2018-07-29 16:02 | ED.RN ---
Pt repeating asking for food in waiting room. Explained to patient that I will get her a snack as soon as i can, as i am busy triaging other patients. PT states well i will give you my order then. I like ham not turkey, i don't do oranges, i like unsweetened apple sauce. or chip doone cookies.
--- NOTE | 2018-07-29 16:46 | ED.RN ---
WITHIN 5 MINUTES OF PATIENT BEING IN HER EXAM ROOM PATIENT PUT HER CALL LIGHT ON REQUESTING FOOD. PATIENT IS ALSO HE AND STATED SHE HAS NOT BEEN SLEEPING WELL BUT IS IN THE ROOM FALLING ASLEEP. CONSULT FOR CASE MANAGEMENT IS PUT IN BECAUSE OF THE 4 VISITS IN 5 DAYS. WHEN ASSESSING THE PATIENT SHE COULDN'T GIVE AN REASON FOR BEING SEEN SHE THEN STATED MOH I HAVE ONE! WHEN ASKED WHAT SHE HAD SHE STATED SHE HASN'T BEEN SLEEPING WELL, THAT'S WHAT SHE WANTED SEEN FOR
--- NOTE | 2018-07-29 17:07 | ED.VISSUMM ---
- ER Visit Summary Date of Service: 07/29/18 Chief Complaint: anxiety and left hip pain History of Present Illness: The patient is a 37 F who presents complaining of anxiety, insomnia and ongoing left hip pain. Patient has had multiple visits this month for similar complaints. Patient is on medications for anxiety, and is not followed up with her doctor regarding her continued complaint of ongoing anxiety. Her left hip pain is more chronic in nature, and she is not been taking any medication for it. She also complains of insomnia and continually asks if she looks tired. She has melatonin at home but is not been taking it either. Physical Examination: Vital signs: afebrile, hemodynamically stable, no hypoxia on room air General: well nourished, well developed, in no distress Skin: warm, dry, no rash, no pallor HEENT: normocephalic and atraumatic; PERRL, EOMI, moist mucous membranes Cardiovascular: regular rate and rhythm without murmurs, no peripheral edema, 2+ pulses all distal extremities Respiratory: No increased work of breathing, lungs are clear to auscultation bilaterally, no rales, rhonchi or wheezing Abdominal: Abdomen is soft, nontender with normoactive bowel sounds, no guarding or rebound, no masses MSK: Moves all extremities, no deformities, normal strength, gait is normal Neuro: Awake and alert, oriented ?4. No facial droop, sensation and motor function intact and symmetric Test Results: [] Emergency Department Course and Treatment: Patient presents with complaints for which she is already been evaluated. She is not taking any medication for her hip pain, and is walking without any difficulty. Thus no further workup for the hip was performed and she was told she needs to follow-up with her primary care doctor if it continues to bother her. Patient asked multiple times if she looked tired, and states her main issue is she cannot sleep. I encouraged her to take her melatonin. For her anxiety she is to continue medication follow-up with her doctor that prescribes it. Medical screening exam was completed and showed no emergent conditions that would require further workup. Patient was discharged home. Treatment Plan: [] Disposition: [] Impression: chronic anxiety, chronic left hip pain, insomnia This note was generated with [employer] software. It may contain incorrect words, spelling, and punctuation that were not noted in review of the chart prior to signing ED Disposition - Plan for ED Patient: Disposition: Home or Assisted Living Chief Complaint: Anxiety Instructions: ED Insomnia Referrals: Daniela Shields [Primary Care Provider] - Additional Instructions: You may use her melatonin to help with sleep. Use Tylenol or ibuprofen for your hip pain. Follow-up with your doctor who manages your anxiety medications as soon as possible to discuss whether you need any adjustments. Follow-up with your family doctor to discuss her ongoing left hip pain. If you have any worsening of your condition or any new concerning symptoms, please return immediately to the emergency department for another evaluation.
[2018-07-29 17:15] VITALS: BP 115/67; PULSE 72; RESP 15; O2SAT 97
[2018-07-29] MEDS: Acetaminophen 500 MG Tablet 1000 MG PO (17:16)
== END 2018-07-29 17:17 | disposition home or self-care (01) ==
PROVIDERS: Emergency Provider Emergency Medicine
DX: F41.9 Anxiety disorder, unspecified (principal); G89.29 Other chronic pain; M25.552 Pain in left hip; G47.00 Insomnia, unspecified
CPT/HCPCS: 99283

== ENCOUNTER 2018-07-29 20:55 | Emergency (ER) | payer MEDICAID, SELFPAY ==
[2018-07-29 15:42] VITALS: BMI 29.7
[2018-07-29 20:59] VITALS: BP 156/94; PULSE 111; RESP 16; TEMP 36.6; O2SAT 96; BMI 29.9
--- NOTE | 2018-07-29 21:19 | ED.RN ---
PT STATES SHE DOESN'T LIKE BEING ALONE AND THATS WHY SHE CAME IN. STATES SHE ALREADY TOOK HER NIGHT TIME MEDS AND IS GOING TO BE SLEEPY SOON. SHE ALSO STATED THAT THE SQUAD TOLD HER WE WOULD GIVE HER A CAB VOUCHER AND EXPLAINED THAT WAS NOT A OPTION ANYMORE. PT IS CALM AND NO DISTRESS NOTED. PT HAS NO VISIBLE SHAKING AT THIS TIME. PT IS ASSKING FOR FOOD AND 3 WARM BLANKETS. BLANKETS WERE GIVEN BUT EXPLAINED SHE COULD HAVE WATER AND THE DR WOULD BE IN SHORTLY.
--- NOTE | 2018-07-29 22:25 | ED.VISSUMM ---
- ER Visit Summary Date of Service: 07/29/18 Chief Complaint: Anxiety History of Present Illness: The patient is a 37 F who returns to the ED [facility] via EMS with complaint of anxiety. Patient was seen in the ED earlier today for the same. She is been in multiple times over the past week with similar complaints. Patient reports having increased stress about being alone at home. She denies suicidal ideation. She did take her evening medications prior to arrival. Patient states she is active with the counseling center but does not know when her next appointment is scheduled. Physical Examination: Blood pressure is 156/94, temperature 98, heart rate 111, respiratory rate 16, pulse ox 96% on room air. Patient is lying in bed with the lights turned down. She is staring at the ceiling. She speaks in a monotone voice. Head neck examination is unremarkable. Heart is regular rate and rhythm. Lung sounds are clear. Abdomen is soft and nontender. Patient does admit to feeling anxious. She denies suicidal or homicidal ideation. Test Results: [] Emergency Department Course and Treatment: Patient was discussed with Nancy from the counseling center. She will have someone make a call to her tomorrow and will try to arrange close follow-up next week. Treatment Plan: [] Disposition: Discharge Impression: Anxiety This note was generated with [employer] dictation software. It may contain incorrect words, spelling, and punctuation that were not noted in review of the chart prior to signing ED Disposition - Plan for ED Patient: Disposition: Home or Assisted Living Chief Complaint: Anxiety Instructions: ED Stress React Referrals: Counseling,Center [GROUP OF PHYSICIANS] - As soon as possible Additional Instructions: I will speak to staff from the Counseling [facility] to help arrange phone call checks and close follow-up.
[2018-07-29 22:35] VITALS: BP 129/64; PULSE 72; RESP 15; O2SAT 98
--- NOTE | 2018-07-29 22:36 | ED.RN ---
PT KEEPS REQUESTING COGENTIN. INFORMED SHE IS NOT PERSCRIBED IT AND WE WILL NOT BE GIVING IT TO HER. GIVEN DISCHARGE INSTRUCTIONS AND SHE KEEPS TURNING THE LIGHT OFF AND TRYING TO CLIMB BACK INTO THE BED. PT INFORMED SHE CAN WAIT FOR HER TAXI IN THE WAITING ROOM.
== END 2018-07-29 22:37 | disposition home or self-care (01) ==
PROVIDERS: Emergency Provider Emergency Medicine; Referring Provider Nurse Practitioner Family
DX: F41.9 Anxiety disorder, unspecified (principal); K21.9 Gastro-esophageal reflux disease without esophagitis; J45.909 Unspecified asthma, uncomplicated
CPT/HCPCS: 99282; 99283

== ENCOUNTER 2018-08-06 23:53 | Emergency (ER) | payer MEDICAID, SELFPAY ==
[2018-08-06 23:54] VITALS: BP 147/99; PULSE 100; RESP 17; TEMP 36.6; O2SAT 97
--- NOTE | 2018-08-07 00:31 | ED.VIS.GEN ---
History of Present Illness Chief Complaint: General Illness Informant: Patient Onset: Today Context: Gradual Onset Timing: Intermittent - x1, Lasts - 2 hrs Quality: chills Location: upper ext's Current Severity: gone Maximum Severity: Moderate Worsened by: nothing Relieved by: nothing - spontaneously resolved Associated Symptoms: tingling in both feet, also gone now. Narrative: Patient states this occurred about 45 minutes after taking her nighttime dose of Trileptal, she took 600 instead of her usual nightly 900 at the advice of a nurse when she called for advice on what to do. She has been on 600 mg every morning, and 900 mg nightly. She states earlier this morning, she was in anabaptist when she took her dose and is not sure if she took the 600 mg pill or the 300 mg pill. At this time she is asymptomatic. She takes the medication for mood stabilization, she has no history of seizures. - Past Medical History (1) Anxiety Status: Chronic (2) Asthma Status: Chronic Past Medical History - Allergies and Home Meds Allergies/Adverse Reactions: Allergies clindamycin Allergy (Verified 08/07/18 00:09) Nausea/Vom/Diarrhea influenza virus vaccine, specific [influenza virus vacc,specific] Allergy (Verified 08/07/18 00:09) Other Latex, Natural Rubber Allergy (Verified 08/07/18 00:09) Rash meloxicam Allergy (Verified 08/07/18 00:09) Other metronidazole [From Flagyl] Allergy (Verified 08/07/18 00:09) Hives montelukast [From Singulair] Allergy (Verified 08/07/18 00:09) Rash morphine Allergy (Verified 08/07/18 00:09) Other Penicillins [PCN] Allergy (Verified 08/07/18 00:09) Unknown prednisone Adverse Reaction (Verified 08/07/18 00:09) Other ANTIBACTERIAL SOAP Allergy (Uncoded 08/07/18 00:09) Hives HAND VICE PRESIDENT OF DEVELOPMENT Allergy (Uncoded 08/07/18 00:09) Hives SEASONAL ALLERGIES Allergy (Uncoded 08/07/18 00:09) Other Primary Care Physician: Daniela Shields [Primary Care Provider] - As Needed Smoking Status: Current some day smoker Review of Systems General: Reports: Chills - gone. Denies: Fever, Sweats Cardiovascular: Denies: Chest pain, Palpitations Respiratory: Reports: Cough - chronic, intermittent. Denies: Dyspnea, Dyspnea on exertion Gastrointestinal: Denies: Abdominal pain, Nausea, Vomiting, Diarrhea, Melena, Hematochezia Genitourinary: Denies: Dysuria, Hematuria, Frequency Skin: Denies: Rash Neurological: Reports: Parasthesia. Denies: Headache, Weakness Psych: Reports: Anxiety - better now Physical Exam Vital Signs/Narrative: Vital Signs Temp Pulse Resp BP Pulse Ox 08/06/18 23:54 98 F 100 17 147/99 H 97 Inital Vital Signs reviewed: Yes General: Well nourished, Well developed Head: Normocephalic, Atraumatic Eyes: Perrl, EOMI ENT: Moist mucous membranes, No rhinorrhea Neck: Supple, Nontender Cardiovascular: Regular rate, Regular rhythm, No murmurs Respiratory: No distress, CTA bilaterally, Chest nontender Abdomen: Soft, Nontender, Nondistended, Normal bowel sounds Back: Nontender, Normal Inspection Extremities: Nontender, No edema Skin: Normal color, No rash Neurological: Alert, Oriented x3, Cranial nerves II-XII grossly intact, Normal Strength, Normal Sensation Psychological: - - flat affect, a little anxious at times. Diagnostic/Tx/Re-eval - Medical Decision Making No further workup necessary. Patient is reassured. Her exam is unremarkable. She was advised to continue her wean as instructed tomorrow. Instead of the 600 mg every morning she is supposed to take 300. She wants to know if she should take the additional 300 tonight like she used to, before a nurse told her otherwise for this 1 dose. I told her it basically does not make a difference. She prefers to take it. She went back and forth about 5 times but in the and wanted us to give her a 300 mg pill from our pharmacy which we did. ED Disposition - Plan for ED Patient: Disposition: Home or Assisted Living Chief Complaint: General Illness Diagnosis: Anxiety, Paresthesias Instructions: ED Stress React Referrals: Daniela Shields [Primary Care Provider] - As Needed Additional Instructions: Continue your medication wean tomorrow as previously directed by your psychiatrist.
[2018-08-07] MEDS: OXcarbazepine 300 MG Tablet PO (00:38)
[2018-08-07 00:52] VITALS: BP 146/99; PULSE 115; RESP 16; O2SAT 96
--- OUTSIDE RECORDS SUMMARY | 2018-09-30 02:17 | XMS RPT_ITS ---
:1980 Author Organization OHIP Support Name Relationship Address Phone LINZ, Unavailable [address] + [place] [address] UE Unavailable Unavailable Unavailable LINZ, Unavailable [address] + [place] [address] UE Unavailable Unavailable Unavailable LINZ, Unavailable [address] + [place] [address] UE Unavailable Unavailable Unavailable LINZ, Unavailable [address] + [place] [address] UE Unavailable Unavailable Unavailable LINZ, Unavailable [address] + [place] [address] UE Unavailable Unavailable Unavailable LINZ, Unavailable [address] + [place] [address] UE Unavailable Unavailable Unavailable LINZ, Unavailable [address] + [place] [address] UE Unavailable Unavailable Unavailable LINZ, Unavailable [address] + [place] [address] UE Unavailable Unavailable Unavailable LINZ, Unavailable [address] + [place] [address] UE Unavailable Unavailable Unavailable LINZ, Unavailable [address] + [place] [address] UE Unavailable Unavailable Unavailable LINZ, Unavailable [address] + [place] [address] UE Unavailable Unavailable Unavailable LINZ, Unavailable [address] + [place] [address] UE Unavailable Unavailable Unavailable LINZ, Unavailable [address] + [place] [address] UE Unavailable Unavailable Unavailable LINZ, Unavailable [address] + [place] [address] UE Unavailable Unavailable Unavailable LINZ, Unavailable [address] + [place] [address] UE Unavailable Unavailable Unavailable LINZ, Unavailable [address] + [place] [address] UE Unavailable Unavailable Unavailable LINZ, Unavailable [address] + [place] [address] UE Unavailable Unavailable Unavailable LINZ, Unavailable [address] + [place] [address] UE Unavailable Unavailable Unavailable LINZ, Unavailable [address] + [place] [address] UE Unavailable Unavailable Unavailable LINZ, Unavailable [address] + [place] [address] UE Unavailable Unavailable Unavailable LINZ, Unavailable [address] + [place] [address] UE Unavailable Unavailable Unavailable LINZ, Unavailable [address] + [place] [address] UE Unavailable Unavailable Unavailable LINZ, BROKOE Unavailable [address] + [place] [address] UE Unavailable Unavailable Unavailable LINZ, Unavailable [address] + [place] [address] UE Unavailable Unavailable Unavailable LINZ, Unavailable [address] + [place] [address] UE Unavailable Unavailable Unavailable LINZ, Unavailable [address] + [place] [address] UE Unavailable Unavailable Unavailable LINZ, Unavailable [address] + [place] [address] UE Unavailable Unavailable Unavailable LINZ, Unavailable [address] + [place] [address] UE Unavailable Unavailable Unavailable LINZ, Unavailable [address] + [place] [address] UE Unavailable Unavailable Unavailable LINZ, Unavailable [address] + [place] [address] UE Unavailable Unavailable Unavailable LINZ, Unavailable [address] + [place] [address] UE Unavailable Unavailable Unavailable LINZ, Unavailable [address] + [place] [address] UE Unavailable Unavailable Unavailable LINZ, Unavailable [address] + [place] [address] UE Unavailable Unavailable Unavailable LINZ, Unavailable [address] + [place] [address] UE Unavailable Unavailable Unavailable LINZ, Unavailable [address] + [place] [address] UE Unavailable Unavailable Unavailable LINZ, Unavailable [address] + [place] [address] UE Unavailable Unavailable Unavailable Care Team Providers Name Role Phone WIN MEJIA Attending Unavailable PEDRO LUIS MOSER Attending Unavailable NANCIE DOVER Attending Unavailable PEDRO LUIS MOSER Referring Unavailable WIN MEJIA Referring Unavailable YOGI AMOS Attending Unavailable YOGI AMOS Attending Unavailable YOGI AMOS Referring Unavailable MAUREEN ZELAYA (PA) Attending Unavailable VERONICA GAMEZ (MOBILE EQUIPMENT SERVICER) Attending Unavailable VERONICA GAMEZ (MOBILE EQUIPMENT SERVICER) Attending Unavailable VERONICA GAMEZ (MOBILE EQUIPMENT SERVICER) Attending Unavailable VERONICA GAMEZ (MOBILE EQUIPMENT SERVICER) Referring Unavailable CHAYITO TAN (MOBILE EQUIPMENT SERVICER) Attending Unavailable PATRICIO KINGSTON (PT) Attending Unavailable DUNCAN NORTON Referring Unavailable FRANCISCA WEN Attending Unavailable FRANCISCA WEN Attending Unavailable Corin Harrison MD Attending Unavailable PHYSICIAN, NOT RECORDED Primary Care Unavailable [facility] Primary Care Unavailable Kasandra Cooper Attending Unavailable [facility] Primary Care Unavailable Jose G Iqbal Attending Unavailable [place] Attending Unavailable [place] POWER TRANSFORMER REPAIRER, Mallorie Primary Care Unavailable [place] POWER TRANSFORMER REPAIRER, Mallorie Primary Care Unavailable Jose G Iqbal Attending Unavailable Tameka Beckman Attending Unavailable [facility] Primary [facility] Primary Care Unavailable Raulito Muhammad Attending Unavailable Yariel Hilton Attending Unavailable [place] POWER TRANSFORMER REPAIRER, Mallorie Primary Care Unavailable [place] POWER TRANSFORMER REPAIRER, Mallorie Primary Care Unavailable Stephan Witt Attending Unavailable [place] POWER TRANSFORMER REPAIRER, Mallorie Primary Care Unavailable Juana Christopher Attending Unavailable [place] POWER TRANSFORMER REPAIRER, Mallorie Primary Care Unavailable Ronald Gonzalez Attending Unavailable [place] POWER TRANSFORMER REPAIRER, Mallorie Primary Care Unavailable Lucero Floyd Attending Unavailable [place] POWER TRANSFORMER REPAIRER, Mallorie Primary Care Unavailable Ho Kathleen Attending Unavailable [place] POWER TRANSFORMER REPAIRER, Mallorie Primary Care Unavailable Jose G Iqbal Attending Unavailable [place] POWER TRANSFORMER REPAIRER, Malolrie Primary Care Unavailable Blue Garcia Attending Unavailable [place] POWER TRANSFORMER REPAIRER, Mallorie Primary Care Unavailable [place] Attending Unavailable [facility] Attending Unavailable [place] POWER TRANSFORMER REPAIRER, Mallorie Referring Unavailable [facility] Primary Care Unavailable Hans Ramos Attending Unavailable [place] POWER TRANSFORMER REPAIRER, Mallorie Referring Unavailable [facility] Primary Care Unavailable [place] Attending Unavailable [facility] Primary Care Unavailable Stephan Witt Attending Unavailable [facility] Primary Care Unavailable Juana Christopher Attending Unavailable [place]art POWER TRANSFORMER REPAIRER, Mallorie Referring Unavailable [facility] Primary Care Unavailable Elvi Wick Attending Unavailable [facility] Primary Care Unavailable Ganga Chambers Attending Unavailable Vik Gibbons Attending Unavailable [facility] Referring Unavailable [facility] Primary Care Unavailable Kasandra Cooper Attending Unavailable [facility] Primary Care Unavailable Ganga Chambers Attending Unavailable [facility] Primary Care Unavailable Blue Garcia Attending Unavailable Hans Ramos Attending Unavailable [facility] Referring Unavailable [facility] Primary Care Unavailable Duncan Velásquez Attending Unavailable Frank Knight Attending Unavailable [facility] Primary Care Unavailable Frank Knight Referring Unavailable [facility] Primary Care Unavailable Yariel Hilton Attending Unavailable [facility] Primary Care Unavailable Stephan Madison Attending Unavailable [facility] Primary Care Unavailable Ronald Gonzalez Attending Unavailable [facility] Primary Care Unavailable Kasandra Cooper Attending Unavailable [facility] Primary Care Unavailable Juana Christopher Attending Unavailable Mallorie Juares Referring Unavailable [facility] Primary Care Unavailable DERRICK VALDERRAMA Attending Unavailable [facility] Primary Care Unavailable Elvi Wick Attending Unavailable PROBLEMS PROBLEMS DATE TYPE CONDITION / CODE ATTENDING STATUS SOURCE 07/12/2018 Unknown J45.909 - Hans Ramos Active [facility] Unspecified asthma, Community uncomplicated / Hospital J45.909(ICD-10) Repository 06/01/2018 Active Encounter for Active [facility] screening for [place] infections with a Repository predominantly sexual mode of transmission / Z11.3(ICD-10) 06/01/2018 Active High risk NA Active [facility] heterosexual [place] behavior / Repository Z72.51(ICD-10) 03/30/2018 Active Unknown / VERONICA GAMEZ Active [facility] UNK(Unknown) (MOBILE EQUIPMENT SERVICER) [place] Repository 05/03/2018 Unknown K59.00 - [place] Active [facility] Constipation, Community unspecified / Hospital K59.00(ICD-10) Repository 03/24/2018 Active Pain in left foot / NA Active [facility] M79.672(ICD-10) [place] Repository 05/03/2018 Unknown R10.9 - Unspecified Blue Garcia Active [facility] abdominal pain / Community R10.9(ICD-10) Hospital Repository 05/03/2018 Unknown M25.552 - Pain in [place], Active [facility] left hip / [place] Community M25.552(ICD-10) Hospital Repository 05/03/2018 Unknown R05 - Cough / Ronald Gonzalez Active [facility] R05(ICD-10) [facility] Hospital Repository 02/15/2018 Active Encounter for NA Active [facility] screening mammogram [place] for malignant Repository neoplasm of breast / Z12.31(ICD-10) 05/03/2018 Unknown R06.02 - Shortness Stephan Witt Active [facility] of breath / Community R06.02(ICD-10) Hospital Repository 05/03/2018 Unknown T67.5XXA - Yariel Mayberry Active [facility] exhaustion, Community unspecified, Hospital initial encounter / Repository T67.5XXA(ICD-10) 05/03/2018 Unknown R42 - Dizziness and Raulito Muhammad Active [facility] giddiness / Community R42(ICD-10) Hospital Repository 05/03/2018 Unknown R10.13 - Epigastric AhmedTameka Active [facility] pain / Community R10.13(ICD-10) Hospital Repository 05/03/2018 Unknown R51 - Headache / MarelyJose G Active [facility] R51(ICD-10) [facility] Hospital Repository PROCEDURES PROCEDURES No Procedure Records FoundRESULTS RESULTS PROGRESS Observed: 08/14/2018 Status: COMPLETED Source: [facility] 9:29 AM [facility] REPOSITORY HNO ID: [id number] Author: Shara Llamas Service: (none) Author Type: (none) Type: Progress Notes Filed: 08/14/2018 9:30 AM Note Text: Pap logged and normal pap letter sent to patient. Shara Llamas EMERGENCY DEPARTMENT Observed: 08/09/2018 Status: F Source: [facility] 11:33 PM [facility] [place] REPOSITORY [facility] Medical Records Department [address] [place] [address] Emergency Department Summary 08/09/18 1550 MR#: [id number] Acct: [id number] Name: ANGELICA ANDUJAR Rep #: [id number] : 1980 37 From: Elvi Wick MD PCP: SAMANTHA [facility] Status: DEP ER - ER Visit Summary Date of Service: 08/09/18 Chief Complaint: [] Would like a liter of IV fluid History of Present Illness: The patient is a 37 F [] reports she feels that she is dehydrated she is asked to be given 1 L of IV fluid,. She indicates she has had normal p.o. intake today she ate a full breakfast full lunch drink liquids had normal bowel and urinary habits no fever no cough no diarrhea no numbness weakness or paresthesias, she apparently had some dispute by staff with her boyfriend and then came to the emergency department. She has no complaints of suicidal homicidal ideation she cannot explained me why she would need IV fluids. She has no specific complaints sitting in the bed other than saying she feels slightly tired, she does have a history of psychological psychiatric disorders that include at least anxiety she takes she states she is taking all of her meds Physical Examination: [] Pressure is 140/80, heart rate is about 90 General, no distress resting comfortably HEENT is generally unremarkable very moist mucous membranes The neck is supple no adenopathy Cardiovascular, regular rate and rhythm rate about 90 Lungs, clear bilateral Abdomen, soft nontender Extremities, no clubbing cyanosis or edema Neurologic, awake alert answering questions appropriately moving all 4 extremities she is walking around the room in no distress clinically she looks well Test Results: [] Emergency Department Course and Treatment: [] Patient has no physical complaints other than possibly fatigue she has been eating and drinking well by her reports her bowel and urinary habits of normal given all the above she needs hydration it is better to hydrate her orally based on recommendations, will check urinalysis and proceed from there Treatment Plan: [] The patient's UA is unremarkable and in fact has a very dilute urine suggesting appropriate hydration of 1005, she will be instructed to continue all of her management all of her medications and follow-up with all of her outpatient providers Disposition: [] Stable home Impression: [] Concern for dehydration This note was generated with [employer] dictation software. It may contain incorrect words, spelling, and punctuation that were not noted in review of the chart prior to signing ED Disposition - Plan for ED Patient: Chief Complaint: General Illness Referrals: Samantha Shields [Primary Care Provider] - What to do if you have Problems For any increased pain, shortness of breath, bleeding, nausea or vomiting, chest pain, or any unexpected problems, contact your Primary Care Provider. Call [facility] ([phone]) or report to the closest Emergency Room. Call 911 if necessary. 08/09/18 5789 <Electronically signed by Elvi Wick MD> Date Elvi Wick MD Cosigner Signature (If Indicated): Date CC: [facility] DISCHARGE INSTRUCTION Observed: 08/09/2018 Status: F Source: [place] 5:38 PM [facility] REPOSITORY [facility] Medical Records Department [address] [place] [address] Discharge Instruction 08/09/18 1738 MR#: [id number] Acct: [id number] Name: ANGELICA ANDUJAR Rep #: [id number] : 1980 37 From: Elvi Wick MD PCP: SAMANTHA BEJARANO Status: REG ER ED Disposition - Plan for ED Patient: Chief Complaint: General Illness Instructions: Dehydration, ED Dehydration Referrals: Samantha Shields [Primary Care Provider] - Additional Instructions: Continue all of your medications and follow-up with all of your outpatient providers What to do if you have Problems For any increased pain, shortness of breath, bleeding, nausea or vomiting, chest pain, or any unexpected problems, contact your Primary Care Provider. Call [facility] ([phone]) or report to the closest Emergency Room. Call 911 if necessary. 08/09/188 <Electronically signed by Elvi Wick MD> Date Elvi Wick MD Cosigner Signature (If Indicated): Date CC: SAMANTHA BEJARANO URINALYSIS, COMPLETE Collected: 08/09/2018 Status: F Source: [place] 4:05 PM [facility] REPOSITORY Order Comment: Order Date: 08/09/18 How was Urine Obtained? DOOR CLOSER TO SPECIFY TYPE CODE TESTS RESULT OUT OF RANGE REFERENCE UNITS LAB L400.3000 Yellow COLOR Normal Yellow LAB L400.3050 Clear Normal CLARITY Clear LAB L400.3200 Normal mg/dl Normal GLUCOSE, UR Normal LAB L400.3300 Negative mg/dL Normal BILIRUBIN URINE Negative LAB L400.3400 Negative mg/dl Normal KETONE UR Negative LAB L400.3465 1.002-1.030 Normal SP.GR. DIPSTX 1.005 LAB L400.3550 5.0 - 8.0 pH UR Normal 7.0 LAB L400.3600 Negative mg/dl PROT Normal DIPSTX Negative LAB L400.3700 Normal mg/dl Normal UROBILI Normal LAB L400.3750 Negative Normal NITRITE UR Negative LAB L400.3780 Negative /ul Normal OCCULT BLOOD-UR Negative LAB L400.3800 Negative /ul LEUK Normal ESTERASE Negative LAB L400.4050 0-5 /hpf WBC 0 Normal SEEN LAB L400.4100 0-5 /hpf 0 Normal RBC-UA SEEN LAB L400.4150 5-10 /hpf SQUAM 0 Normal EPI SEEN LAB L400.4300 None Seen /hpf 0 Normal BACTERIA SEEN LAB L400.4350 <or=2+ /hpf 0 Normal MUCUS, URINE SEEN Performed By: #### L400.0001 #### [facility] [address] [facility] [place], [address] EMERGENCY DEPARTMENT Observed: 08/07/2018 Status: F Source: [place] SUMMARY 2:46 AM [facility] REPOSITORY [facility] Medical Records Department [address] [place] [address] Emergency Department Summary 08/07/18 0031 MR#: [id number] Acct: [id number] Name: ANGELICA ANDUJAR Rep #: [id number] : 1980 37 From: Derrick Valderrama MD PCP: [facility] Status: DEP ER History of Present Illness Chief Complaint: General Illness Informant: Patient Onset: Today Context: Gradual Onset Timing: Intermittent - x1, Lasts - 2 hrs Quality: chills Location: upper ext's Current Severity: gone Maximum Severity: Moderate Worsened by: nothing Relieved by: nothing - spontaneously resolved Associated Symptoms: tingling in both feet, also gone now. Narrative: Patient states this occurred about 45 minutes after taking her nighttime dose of Trileptal, she took 600 instead of her usual nightly 900 at the advice of a nurse when she called for advice on what to do. She has been on 600 mg every morning, and 900 mg nightly. She states earlier this morning, she was in [facility] when she took her dose and is not sure if she took the 600 mg pill or the 300 mg pill. At this time she is asymptomatic. She takes the medication for mood stabilization, she has no history of seizures. - Past Medical History (1) Anxiety Status: Chronic (2) Asthma Status: Chronic Past Medical History - Allergies and Home Meds Allergies/Adverse Reactions: Allergies clindamycin Allergy (Verified 08/07/18 00:09) Nausea/Vom/Diarrhea influenza virus vaccine, specific [influenza virus vacc,specific] Allergy (Verified 08/07/18 00:09) Other Latex, Natural Rubber Allergy (Verified 08/07/18 00:09) Rash meloxicam Allergy (Verified 08/07/18 00:09) Other metronidazole [From Flagyl] Allergy (Verified 08/07/18 00:09) Hives montelukast [From Singulair] Allergy (Verified 08/07/18 00:09) Rash morphine Allergy (Verified 08/07/18 00:09) Other Penicillins [PCN] Allergy (Verified 08/07/18 00:09) Unknown prednisone Adverse Reaction (Verified 08/07/18 00:09) Other ANTIBACTERIAL SOAP Allergy (Uncoded 08/07/18 00:09) Hives HAND LAWN CARE SPECIALIST Allergy (Uncoded 08/07/18 00:09) Hives SEASONAL ALLERGIES Allergy (Uncoded 08/07/18 00:09) Other Primary Care Physician: [facility] Samantha Bejarano [Primary Care Provider] - As Needed Smoking Status: Current some day smoker Review of Systems General: Reports: Chills - gone. Denies: Fever, Sweats Cardiovascular: Denies: Chest pain, Palpitations Respiratory: Reports: Cough - chronic, intermittent. Denies: Dyspnea, Dyspnea on exertion Gastrointestinal: Denies: Abdominal pain, Nausea, Vomiting, Diarrhea, Melena, Hematochezia Genitourinary: Denies: Dysuria, Hematuria, Frequency Skin: Denies: Rash Neurological: Reports: Parasthesia. Denies: Headache, Weakness Psych: Reports: Anxiety - better now Physical Exam Vital Signs/Narrative: Vital Signs 08/06/18 23:54 98 F 100 17 147/99 H 97 Inital Vital Signs reviewed: Yes General: Well nourished, Well developed Head: Normocephalic, Atraumatic Eyes: Perrl, EOMI ENT: Moist mucous membranes, No rhinorrhea Neck: Supple, Nontender Cardiovascular: Regular rate, Regular rhythm, No murmurs Respiratory: No distress, CTA bilaterally, Chest nontender Abdomen: Soft, Nontender, Nondistended, Normal bowel sounds Back: Nontender, Normal Inspection Extremities: Nontender, No edema Skin: Normal color, No rash Neurological: Alert, Oriented x3, Cranial nerves II-XII grossly intact, Normal Strength, Normal Sensation Psychological: - - flat affect, a little anxious at times. Diagnostic/Tx/Re-eval - Medical Decision Making No further workup necessary. Patient is reassured. Her exam is unremarkable. She was advised to continue her wean as instructed tomorrow. Instead of the 600 mg every morning she is supposed to take 300. She wants to know if she should take the additional 300 tonight like she used to, before a nurse told her otherwise for this 1 dose. I told her it basically does not make a difference. She prefers to take it. She went back and forth about 5 times but in the and wanted us to give her a 300 mg pill from our pharmacy which we did. ED Disposition - Plan for ED Patient: Disposition: Home or Assisted Living Chief Complaint: General Illness Diagnosis: Anxiety, Paresthesias Instructions: ED Stress React [facility]errals: [facility] [Primary Care Provider] - As Needed Additional Instructions: Continue your medication wean tomorrow as previously directed by your psychiatrist. What to do if you have Problems For any increased pain, shortness of breath, bleeding, nausea or vomiting, chest pain, or any unexpected problems, contact your Primary Care Provider. Call [facility] ([phone]) or report to the closest Emergency Room. Call 911 if necessary. 08/07/18 0246 <Electronically signed by Derrick Valderrama MD> Date Derrick Valderrama MD Cosigner Signature (If Indicated): Date CC: [facility] CNOV Observed: 08/04/2018 Status: COMPLETED Source: [place] 1:15 PM [facility] [place] REPOSITORY Office Visit (WOOB) ANGELICA ANDUJAR ([id number]) 1980 F Date Time Provider Department 08/04/18 1:15 PM FRANCISCA WEN During your visit today, we recorded the following information about you: Blood pressure Weight Height 94/66 87.8 kg 1.702 m Francisca Wen MD 08/04/2018 1:19 PM Signed Angelica Bermudez Andujar is a 37 year old who presents for her annual gynecologic exam with complaints, vaginal itching, vulvar irritation and vulvar discomfort. She states she is very anxious today, and has had a lot of stress in her life. Saw her counselor and psychiatrist this week. Menses: Regular, monthly cycles with bleeding for 3-5 days. LMP sometime in June. She is concerned that she has not had her period this month, but she is unsure of her cycles lengths and when she is supposed to be getting her period Contraception: none Last Pap: 2012 normal HPV: negative History of abnormal pap: No Last mammogram: 2017 normal Sexually active: No Patient concerns for STD exposure: No but does want tested Last sexual contact: 3 months Obstetric History T0 L0 SAB0 TAB1 Ectopic0 Multiple0 Live Births0 PAST MEDICAL HISTORY Diagnosis Date - 11/2009 - Anxiety - Asthma - Depression - Recurrent UTI - Seasonal allergies - STD (sexually transmitted disease) PAST SURGICAL HISTORY Procedure Laterality Date - COLONOSCOPY W/BX 03/02/11 - EGD W/O OR W/BRUSH/WASH 11/14/2012 EGD - MED INC ALL EX DRUG 11/2009 - PAST SURGICAL HISTORY OF WISDOM TEETH FAMILY HISTORY Problem Relation Age of Onset - Alcohol/Drug Mother - Arthritis Mother - Asthma Mother - Cancer Mother CANCER - Hypertension Mother - Stroke Mother - Cancer Father LUNG CANCER - Emphysema Father - Asthma Brother - Breast Cancer Maternal Aunt - Hypertension Brother SOCIAL HISTORY Social History Substance Use Topics - Smoking status: Former Smoker Years: 3.00 Types: Cigarettes Quit date: 03/03/2018 - Smokeless tobacco: Never Used Comment: 2 weeks no cigarettes - Alcohol use Yes Comment: Seldom REVIEW OF SYSTEMS Abdomen: No abdominal pain, nausea, vomiting, diarrhea, or constipation. Bladder: No dysuria, gross hematuria, urinary frequency, urinary urgency, or incontinence. Breast: No breast lumps, nipple d/c, overlying skin changes, redness or skin retraction. Allergies and current medication updated:Yes EXAM: BP 94/66 Ht 5' 7 (1.70m) Wt 193 lb 9.6 oz (87.8kg) BMI 30.31 kg/(m2). GENERAL: Flat affect, female in no apparent distress HEENT: Normocephalic and atraumatic NECK: Supple, full range of motion, no adenopathy and thyroid normal DERMATOLOGY: Normal and without lesions BREAST: soft, non-tender, symmetric, no dominant mass, normal nipple-areolar complex, no lymphadenopathy and no nipple discharge CHEST: Normal inspiratory effort ABDOMEN: soft, non-tender and no masses PELVIC: external genitalia normal, normal Bartholin's glands, urethra, Zoar's glands, no vulvar lesions, no cervical lesions, good vaginal support, physiologic discharge present, normal appearing perineal body and perianal region BIMANUAL: uterus normal size, shape and consistency, no adnexal masses and non-tender NEURO: exam grossly non-focal EXTREMITIES: normal ASSESSMENT/PLAN: 1) Health maintenance: Pap done with HPV. Mammogram starting age 40, discussed this with patient and order placed. Nutrition, exercise and routine health maintenance exams reviewed. 2) Contraception: none. Contraceptive options reviewed and information provided. 3) STD screening: Accepts full STD screeening including HIV, Syphilis and Hepatitis. 4) Unknown bleeding profile: Discussed with patient to track her cycles for the next 3 months and call if irregular. Urine preg test today negative 5) Chronic vulvovaginitis: Normal exam today. Discussed with her she can see a laboratory technical specialist for another option. Also discussed using 1/2 NS and 1/2 hydrogen peroxide, to spray over vulvar area prn after using restroom. Discussed oral medications for pruritis RTO 1 year for annual exam DO Francisca Salguero MD 08/04/2018 11:42 AM Signed MENSTRUAL FLOW CHART # of days from start of period to beginning of next Breast Exam Done Month 1 2 3 4 5 6 7 8 9 10 11 12 13 14 15 16 17 18 19 20 21 22 23 24 25 26 27 28 29 30 31 Sep. Oct. November. May. Jun. Jul. Aug. Don't forget to have this chart with you when you call or visit the doctor TYPE OF FLOW Normal = N Light = L Heavy = H Shara Llamas 08/14/2018 9:30 AM Signed Pap logged and normal pap letter sent to patient. Shara Llamas Referring Provider: SELF [[id number]] Allergies As of Date: 08/04/2018 Noted Allergy Reaction ANTI-BACTERIAL CLEANSING (BENZETH*10/26/2012 2 - Rash BEES 07/16/2010 16 - Unknown Comments: Listed on records from Samantha Ottoniel BENZALKONIUM CHLORIDE 09/08/2012 14 - Other: See Comments Comments: Skin irritations CLINDAMYCIN 03/27/2018 8 - GI Upset DOXYCYCLINE 12/13/2012 8 - GI Upset Comments: stomach cramps DUST MITES 04/26/2012 16 - Unknown Comments: Dust mites and cockroaches FLAGYL (METRONIDAZOLE HCL) 06/20/2012 4 - Hives HAND LAWN CARE SPECIALIST (ETHYL ALCOHOL (SK*11/04/2009 2 - Rash Comments: PT HAS SENSITIVE SKIN. O.K. FOR MEDICAL PROFESSIONAL TO USE HAND LAWN CARE SPECIALIST AND THEN TOUCH HER, BUT SHE HERSELF DOES NOT USE IT. IODINE 02/18/2011 2 - Rash LACTOSE INTOLERANCE (LACTASE) 11/04/2009 LATEX, NATURAL RUBBER 03/17/2018 2 - Rash SAUK-SUIATTLE 12/07/2017 10 - Anaphylaxis MELOXICAM 06/12/2018 16 - Unknown METRONIDAZOLE 04/11/2018 4 - Hives MOLD 04/26/2012 16 - Unknown MORPHINE 03/02/2011 9 - Itching PENICILLIN 06/18/2016 16 - Unknown pet dander [Other] 10/20/2011 16 - Unknown Comments: Cat, Dog, Horse PREDNISONE 08/26/2012 14 - Other: See Comments Comments: Moodiness, restlessness, states feels like crap all over. SEASONAL ALLERGIES 11/04/2009 16 - Unknown Comments: Trees, grasses, weeds, ragweed. SINGULAIR (MONTELUKAST) 12/07/2017 16 - Unknown Comments: Possible rash SODIUM LAURYL SULFATE 09/30/2010 2 - Rash Comments: Skin irritation to scalp TREES 05/11/2012 14 - Other: See Comments ZOFRAN (ONDANSETRON HCL (PF)) 03/02/2011 14 - Other: See Comments Comments: Zofran causes cramping and constipation Date Reviewed: 08/04/2018 Reviewed by: Francisca Wen - Fully Assessed Reason for Visit: Well Woman [1463] Primary Visit Diagnosis:Encounter for gynecological examination (general) (routine) without abnormal findings [Z01.419] Other Visit Diagnoses:Screening for cervical cancer [Z12.4] Encounter for screening for human papillomavirus (HPV) [Z11.51] Screening for STD (sexually transmitted disease) [Z11.3] Encounter for screening mammogram for malignant neoplasm of breast [Z12.31] Vulvovaginitis [N76.0] Order(s):PAP FLUID CERVICAL SCREENING [2834131] Order #: [id number] #[id number] GC/CHLAMYDIA DNA DET [SQGCCAMP] Order #: [id number]. #:[id number] HIV 1,2 COMBO (AG/AB) [SQHIV12] Order #: [id number] FUTURE HEP B SURF AG SCRN [SQHBSAG] Order #: [id number] FUTURE SYPHILIS IGG WITH CONF [SQSYPHGX] Order #: [id number] FUTURE HEP C AB IA W/CONF SCRN [HTYHSJ2O] Order #: [id number] FUTURE MARGUERITE SCREENING [1315945] Order #: [id number] FUTURE HCG QUAL UR B/O [1261292] Order #: [id number] sodium chloride 0.9 % IRRIGATIONCombine 5 mL of the irrigation with 5 mL of hydrogen peroxide. [place] over vulvar area as needed after using restroom.Disp: 500 mLRfl: 0 HPV W/GENOTYPE [SQHPVHRR] Order #: [id number]. #:[id number] Prescriptions as of 08/04/2018 Sig: BENZTROPINE 0.5 MG TABLET Take 0.5 mg by mouth twice da* BECLOMETHASONE DIPROPIONATE 8* Inhale 2 Puffs as instructed * OXCARBAZEPINE 600 MG TABLET Take 600 mg by mouth twice da* MELATONIN ORAL Take by mouth. 6mg PALIPERIDONE ER 9 MG TABLET,E* Take 9 mg by mouth once daily. SODIUM CHLORIDE 0.65 % NASAL * Use 1 [place] in the nose as ne* TYLENOL ORAL Take 325 mg by mouth. ALBUTEROL SULFATE HFA 90 MCG/* Inhale 2 Puffs as instructed * FAMOTIDINE 20 MG TABLET Take 1 tablet by mouth at bed* LORATADINE 10 MG TABLET Take 1 tablet by mouth once d* MULTIVITAMIN CAPSULE Take 1 capsule by mouth once * SODIUM CHLORIDE 0.9 % IRRIGAT* Combine 5 mL of the irrigatio* PSEUDOEPHEDRINE ER 120 MG TAB* Take 1 tablet by mouth every * Patient not taking: Reported on 07/19/2018 FLUTICASONE 50 MCG/ACTUATION * Use 2 Sprays in each nostril * Patient not taking: Reported on 07/19/2018 Problem List As Of Date 08/04/2018 Noted Resolved Frequency of urination [R35.0] INVALID FOR*10/20/2011 Pelvic pain in female [R10.2] INVALID FOR*10/20/2011 Microscopic hematuria [R31.29] INVALID FOR*09/15/2016 Other hammer toe (acquired) [M20.40] INVALID FOR*10/20/2011 Hallux valgus (acquired) [M20.10] INVALID FOR* Internal hemorrhoids without mention of complic*INVALID FOR*10/20/2011 Diarrhea [R19.7] INVALID FOR*10/20/2011 Abdominal pain, generalized [R10.84] INVALID FOR*10/20/2011 Low back pain [M54.5] INVALID FOR* Closed fracture of metatarsal bone(s) [S92.309A]INVALID FOR*09/15/2016 Tendonitis [M77.9] INVALID FOR*09/15/2016 Acne Vulgaris: Grade III Inflammatory and Comed*INVALID FOR*09/15/2016 Other seborrheic dermatitis [L21.8] INVALID FOR*09/15/2016 History of cold-induced urticaria [Z87.2] INVALID FOR* Seborrhea [L21.9] INVALID FOR*09/15/2016 Eczematous dermatitis [L30.9] INVALID FOR*09/15/2016 Xerosis cutis [L85.3] INVALID FOR*09/15/2016 Backache, unspecified [M54.9] INVALID FOR*09/15/2016 Asthma [J45.909] INVALID FOR* Attention-deficit hyperactivity disorder, predo*INVALID FOR* Pain disorder with psychological component [F45*INVALID FOR* Adjustment disorder with mixed anxiety and depr*INVALID FOR* Chronic midline low back pain without sciatica *INVALID FOR* Cervicalgia [M54.2] INVALID FOR* Degeneration of cervical intervertebral disc [M*INVALID FOR* Allergic rhinitis [J30.9] INVALID FOR* Other instructions from your clinician: MENSTRUAL FLOW CHART # of days from start of period to beginning of next Breast Exam Done Month 1 2 3 4 5 6 7 8 9 10 11 12 13 14 15 16 17 18 19 20 21 22 23 24 25 26 27 28 29 30 31 Sep. Oct. November. May. Jun. Jul. Aug. Don't forget to have this chart with you when you call or visit the doctor TYPE OF FLOW Normal = N Light = L Heavy = H Prescriptions ordered this encounter Disp Refills Start End SODIUM CHLORIDE 0.9 % IRRIGATION RAY* 500 * 0 08/04/2018 Sig: Combine 5 mL of the irrigation with 5 mL of hydrogen peroxide. [place] over vulvar area as needed after using restroom. Level of Service: WELLNESS EXAMS EST 18-39 YRS [08043] Disposition: Return in 1 year (on 08/04/2019) for Annual Exam. Follow-up and Disposition History Recorded Letter Text Francisca Wen DO [facility] [address], [place] [address] Angelica Andujar [facility] [address] [address] 08/14/2018 [facility]: [id number] Dear Angelica, We are pleased to inform you that your recent Pap Test was within normal limits. Because Pap tests are so effective in the early detection of cervical cancer, you are encouraged to continue having the test at regular intervals. You will be due for a 1 year Gynecological Exam after this date 08/04/2019. If you have any questions regarding the above information, do not hesitate to call our office at between the hours of 8:00 a.m. and 5:00 p.m. Sincerely, Francisca Wen DO Encounter Status:Closed by FRANCISCA WEN MD on 08/04/18 GC/CHLAMYDIA AMPLIF Collected: 08/04/2018 Status: F Source: [place] 12:00 [facility] REPOSITORY TYPE CODE TESTS RESULT OUT OF REFERENCE UNITS RANGE LAB GCCTSR GC/Chlam Amp Cervix Source LAB GCAMPL GC Negative Amplification for Neisseria gonorrhoeae by amplification. LAB CLAMPL Chlamydia Negative Amplif for Chlamydia trachomatis by amplification. Performed By: #### GCCT #### [facility] [address] [id number] HPV W/GENOTYPE Collected: 08/04/2018 Status: F Source: [place] 12:00 [facility] REPOSITORY TYPE CODE TESTS RESULT OUT OF REFERENCE UNITS RANGE LAB HPVT16 HPV HighRisk Negative for Type 16 HPV DNA high risk type 16 by PCR. LAB HPVT18 HPV HighRisk Negative for Type 18 HPV DNA high risk type 18 by PCR. LAB HPVHRO HPV HighRisk Negative for Other HPV DNA high risk types: 31,33,35,39,45 ,51,52,56,58,5 9,66,68 by PCR. Result Comment: This test was developed and its performance characteristics determined by [facility] Ashok Serrano [facility] [place] ([facility]). It has not been cleared or approved by the FDA. -[facility] is regulated under CLIA as qualified to perform high-complexity testing. This test is used for clinical purposes. It should not be regarded as inv estigational or for research. Performed By: #### HPVHRR #### [facility] [address] [place], [place] [address] CYTOLOGY Observed: 08/04/2018 Status: C Source: [place] 12:00 [facility] REPOSITORY ADDITIONAL PROCEDURES PRESENT Specimen originated from [facility] Specimen #: [id number] Submitting Physician: FRANCISCA WEN DO SPECIMEN SUBMITTED A: CERVICAL, SCREENING, FLUID FINAL DIAGNOSIS A. CERVICAL, SCREENING, FLUID Satisfactory for interpretation. Lack of menstrual history. Negative for intraepithelial lesion or malignancy. This specimen has been analyzed by the ThinPrep Imaging System, an automated imaging and review system, which assists the laboratory in evaluating cells on ThinPrep Pap tests. Following automated imaging, selected carballo from every slide are reviewed by a extension educator. FLOWER Tolliver(ASCP) (Electronic Signature) ADDITIONAL PROCEDURE(S) HUMAN PAPILLOMA VIRUS Date Ordered: 08/07/2018 Date Reported: 08/08/2018 Procedure Results and Interpretation Negative for HPV DNA high risk type 16 by PCR. Negative for HPV DNA high risk type 18 by PCR. Negative for HPV DNA high risk types: 31,33,35,39,45,51,52,56,58,59,66,68 by PCR. This test was developed and its performance characteristics determined by [facility] Ashok Serrano [facility] [place] ([facility]). It has not been cleared or approved by the FDA. [facility] is regulated under CLIA as qualified to perform high-complexity testing. This test is used for clinical purposes. It should not be regarded as investigational or for research. CLINICAL DATA ROUTINE EXAM, HPV Testing: Yes, automatic HPV patients over 30 Date of Last Menstrual Period: unknown STAINS A: CERVICAL, SCREENING, FLUID THIN PREP LINUX ENGINEER Juana Durán M.D., Manager Trading Date of Report: 08/11/2018 Date of Procedure: 08/04/2018 Date of Receipt: 08/07/2018 Submitted by: FRANCISCA WEN DO Location: [facility] Diagnostic interpretation performed at [facility], [address] [place] [address]. The Pap Smear is a screening test for cervical cancer. False negative results occur with all screening tests, emphasizing the need for rescreening at recommended intervals, and clinical correlation. PROGRESS Observed: 08/04/2018 Status: COMPLETED Source: [place] 11:26 AM [facility] REPOSITORY HNO ID: [id number] Author: Francisca Wen Service: (none) Author Type: Physician Type: Progress Notes Filed: 08/04/2018 1:19 PM Note Text: Angelica Andujar is a 37 year old who presents for her annual gynecologic exam with complaints, vaginal itching, vulvar irritation and vulvar discomfort. She states she is very anxious today, and has had a lot of stress in her life. Saw her counselor and psychiatrist this week. Menses: Regular, monthly cycles with bleeding for 3-5 days. LMP sometime in June. She is concerned that she has not had her period this month, but she is unsure of her cycles lengths and when she is supposed to be getting her period Contraception: none Last Pap: 2012 normal HPV: negative History of abnormal pap: No Last mammogram: 2017 normal Sexually active: No Patient concerns for STD exposure: No but does want tested Last sexual contact: 3 months Obstetric History T0 L0 SAB0 TAB1 Ectopic0 Multiple0 Live Births0 PAST MEDICAL HISTORY Diagnosis Date - 11/2009 - Anxiety - Asthma - Depression - Recurrent UTI - Seasonal allergies - STD (sexually transmitted disease) PAST SURGICAL HISTORY Procedure Laterality Date - COLONOSCOPY W/BX 03/02/11 - EGD W/O OR W/BRUSH/WASH 11/14/2012 EGD - MED INC ALL EX DRUG 11/2009 - PAST SURGICAL HISTORY OF WISDOM TEETH FAMILY HISTORY Problem Relation Age of Onset - Alcohol/Drug Mother - Arthritis Mother - Asthma Mother - Cancer Mother CANCER - Hypertension Mother - Stroke Mother - Cancer Father LUNG CANCER - Emphysema Father - Asthma Brother - Breast Cancer Maternal Aunt - Hypertension Brother SOCIAL HISTORY Social History Substance Use Topics - Smoking status: Former Smoker Years: 3.00 Types: Cigarettes Quit date: 03/03/2018 - Smokeless tobacco: Never Used Comment: 2 weeks no cigarettes - Alcohol use Yes Comment: Seldom REVIEW OF SYSTEMS Abdomen: No abdominal pain, nausea, vomiting, diarrhea, or constipation. Bladder: No dysuria, gross hematuria, urinary frequency, urinary urgency, or incontinence. Breast: No breast lumps, nipple d/c, overlying skin changes, redness or skin retraction. Allergies and current medication updated:Yes EXAM: BP 94/66 Ht 5' 7 (1.70m) Wt 193 lb 9.6 oz (87.8kg) BMI 30.31 kg/(m2). GENERAL: Flat affect, female in no apparent distress HEENT: Normocephalic and atraumatic NECK: Supple, full range of motion, no adenopathy and thyroid normal DERMATOLOGY: Normal and without lesions BREAST: soft, non-tender, symmetric, no dominant mass, normal nipple-areolar complex, no lymphadenopathy and no nipple discharge CHEST: Normal inspiratory effort ABDOMEN: soft, non-tender and no masses PELVIC: external genitalia normal, normal Bartholin's glands, urethra, Zoar's glands, no vulvar lesions, no cervical lesions, good vaginal support, physiologic discharge present, normal appearing perineal body and perianal region BIMANUAL: uterus normal size, shape and consistency, no adnexal masses and non-tender NEURO: exam grossly non-focal EXTREMITIES: normal ASSESSMENT/PLAN: 1) Health maintenance: Pap done with HPV. Mammogram starting age 40, discussed this with patient and order placed. Nutrition, exercise and routine health maintenance exams reviewed. 2) Contraception: none. Contraceptive options reviewed and information provided. 3) STD screening: Accepts full STD screeening including HIV, Syphilis and Hepatitis. 4) Unknown bleeding profile: Discussed with patient to track her cycles for the next 3 months and call if irregular. Urine preg test today negative 5) Chronic vulvovaginitis: Normal exam today. Discussed with her she can see a laboratory technical specialist for another option. Also discussed using 1/2 NS and 1/2 hydrogen peroxide, to spray over vulvar area prn after using restroom. Discussed oral medications for pruritis RTO 1 year for annual exam Francisca Wen DO EMERGENCY DEPARTMENT Observed: 07/30/2018 Status: F Source: [place] SUMMARY 2:14 AM [facility] REPOSITORY [facility] Medical Records Department [address] [place] [address] Emergency Department Summary 07/29/18 1707 MR#: [id number] Acct: [id number] Name: ANGELICA ANDUJAR Rep #: [id number] : 1980 37 From: Kasandra Cooper MD PCP: [facility] Status: DEP ER - ER Visit Summary Date of Service: 07/29/18 Chief Complaint: anxiety and left hip pain History of Present Illness: The patient is a 37 F who presents complaining of anxiety, insomnia and ongoing left hip pain. Patient has had multiple visits this month for similar complaints. Patient is on medications for anxiety, and is not followed up with her doctor regarding her continued complaint of ongoing anxiety. Her left hip pain is more chronic in nature, and she is not been taking any medication for it. She also complains of insomnia and continually asks if she looks tired. She has melatonin at home but is not been taking it either. Physical Examination: Vital signs: afebrile, hemodynamically stable, no hypoxia on room air General: well nourished, well developed, in no distress Skin: warm, dry, no rash, no pallor HEENT: normocephalic and atraumatic; PERRL, EOMI, moist mucous membranes Cardiovascular: regular rate and rhythm without murmurs, no peripheral edema, 2+ pulses all distal extremities Respiratory: No increased work of breathing, lungs are clear to auscultation bilaterally, no rales, rhonchi or wheezing Abdominal: Abdomen is soft, nontender with normoactive bowel sounds, no guarding or rebound, no masses MSK: Moves all extremities, no deformities, normal strength, gait is normal Neuro: Awake and alert, oriented 4. No facial droop, sensation and motor function intact and symmetric Test Results: [] Emergency Department Course and Treatment: Patient presents with complaints for which she is already been evaluated. She is not taking any medication for her hip pain, and is walking without any difficulty. Thus no further workup for the hip was performed and she was told she needs to follow-up with her primary care doctor if it continues to bother her. Patient asked multiple times if she looked tired, and states her main issue is she cannot sleep. I encouraged her to take her melatonin. For her anxiety she is to continue medication follow-up with her doctor that prescribes it. Medical screening exam was completed and showed no emergent conditions that would require further workup. Patient was discharged home. Treatment Plan: [] Disposition: [] Impression: chronic anxiety, chronic left hip pain, insomnia This note was generated with Bedloo dictation software. It may contain incorrect words, spelling, and punctuation that were not noted in review of the chart prior to signing ED Disposition - Plan for ED Patient: Disposition: Home or Assisted Living Chief Complaint: Anxiety Instructions: ED Insomnia Referrals: Katharina Bejarano,Samantha Hood [Primary Care Provider] - Additional Instructions: You may use her melatonin to help with sleep. Use Tylenol or ibuprofen for your hip pain. Follow-up with your doctor who manages your anxiety medications as soon as possible to discuss whether you need any adjustments. Follow-up with your family doctor to discuss her ongoing left hip pain. If you have any worsening of your condition or any new concerning symptoms, please return immediately to the emergency department for another evaluation. What to do if you have Problems For any increased pain, shortness of breath, bleeding, nausea or vomiting, chest pain, or any unexpected problems, contact your Primary Care Provider. Call [facility] ([phone]) or report to the closest Emergency Room. Call 911 if necessary. 07/30/18 0214 <Electronically signed by Kasandra Cooper MD> Date Kasandra Cooper MD Cosigner Signature (If Indicated): Date CC: [facility] Observed: 07/30/2018 Status: F Source: [place] SUMMARY 1:47 AM [facility] REPOSITORY [facility] Medical Records Department [address] [place] [address] Emergency Department Summary 07/29/18 2225 MR#: [id number] Acct: [id number] Name: ANGELICA ANDUJAR Rep #: [id number] : 1980 37 From: Juana Christopher MD PCP: SAMANTHA HOOD [facility] Status: DEP ER - ER Visit Summary Date of Service: 07/29/18 Chief Complaint: Anxiety History of Present Illness: The patient is a 37 F who returns to the ED tonight via EMS with complaint of anxiety. Patient was seen in the ED earlier today for the same. She is been in multiple times over the past week with similar complaints. Patient reports having increased stress about being alone at home. She denies suicidal ideation. She did take her evening medications prior to arrival. Patient states she is active with the counseling center but does not know when her next appointment is scheduled. Physical Examination: Blood pressure is 156/94, temperature 98, heart rate 111, respiratory rate 16, pulse ox 96% on room air. Patient is lying in bed with the lights turned down. She is staring at the ceiling. She speaks in a monotone voice. Head neck examination is unremarkable. Heart is regular rate and rhythm. Lung sounds are clear. Abdomen is soft and nontender. Patient does admit to feeling anxious. She denies suicidal or homicidal ideation. Test Results: [] Emergency Department Course and Treatment: Patient was discussed with Nancy from the counseling center. She will have someone make a call to her tomorrow and will try to arrange close follow-up next week. Treatment Plan: [] Disposition: Discharge Impression: Anxiety This note was generated with Bedloo dictation software. It may contain incorrect words, spelling, and punctuation that were not noted in review of the chart prior to signing ED Disposition - Plan for ED Patient: Disposition: Home or Assisted Living Chief Complaint: Anxiety Instructions: ED Stress React Referrals: Counseling,Center [GROUP OF PHYSICIANS] - As soon as possible Additional Instructions: I will speak to staff from the Counseling Center [facility] to help arrange phone call checks and close follow-up. What to do if you have Problems For any increased pain, shortness of breath, bleeding, nausea or vomiting, chest pain, or any unexpected problems, contact your Primary Care Provider. Call [facility] ([phone]) or report to the closest Emergency Room. Call 911 if necessary. 07/30/18 0147 <Electronically signed by Juana Christopher MD> Date Juana Christopher MD Cosigner Signature (If Indicated): Date CC: SAMANTHA MENON [facility] DISCHARGE INSTRUCTION Observed: 07/30/2018 Status: F Source: [place] 1:05 AM [facility] REPOSITORY [facility] Medical Records Department [address] [place] [id number] Discharge Instruction 07/29/18 1708 MR#: [id number] Acct: [id number] Name: ANGELICA ANDUJAR Rep #: [id number] : 1980 37 From: Kasandra Cooper MD PCP: SAMANTHA BEJARANO Status: [facility] ER ED Disposition - Plan for ED Patient: Disposition: Home or Assisted Living Chief Complaint: Anxiety Instructions: ED Insomnia Referrals: Samantha Shields [Primary Care Provider] - Additional Instructions: You may use her melatonin to help with sleep. Use Tylenol or ibuprofen for your hip pain. Follow-up with your doctor who manages your anxiety medications as soon as possible to discuss whether you need any adjustments. Follow-up with your family doctor to discuss her ongoing left hip pain. If you have any worsening of your condition or any new concerning symptoms, please return immediately to the emergency department for another evaluation. What to do if you have Problems For any increased pain, shortness of breath, bleeding, nausea or vomiting, chest pain, or any unexpected problems, contact your Primary Care Provider. Call [facility] ([phone]) or report to the closest Emergency Room. Call 911 if necessary. 07/30/185 <Electronically signed by Kasandra Cooper MD> Date Kasandra Campos Signature (If Indicated): Date CC: SAMANTHA HOOD [facility] DISCHARGE INSTRUCTION Observed: 07/29/2018 Status: F Source: [place] 10:26 PM [facility] REPOSITORY [facility] Medical Records Department [address] [place] [address] Discharge Instruction 07/29/182224 MR#: [id number] Acct: [id number] Name: ANGELICA ANDUJAR Rep #: [id number] : 1980 37 From: Juana Christopher MD PCP: [facility] Status: REG ER ED Disposition - Plan for ED Patient: Disposition: Home or Assisted Living Chief Complaint: Anxiety Instructions: ED Stress React Referrals: Counseling,Center [GROUP OF PHYSICIANS] - As soon as possible Additional Instructions: I will speak to staff from the Counseling Center [facility] to help arrange phone call checks and close follow-up. What to do if you have Problems For any increased pain, shortness of breath, bleeding, nausea or vomiting, chest pain, or any unexpected problems, contact your Primary Care Provider. Call [facility] ([phone]) or report to the closest Emergency Room. Call 911 if necessary. 07/29/182225 <Electronically signed by Juana Christopher MD> Date Juana Campos Signature (If Indicated): Date CC: [facility] EMERGENCY DEPARTMENT Observed: 07/26/2018 Status: F Source: [place] SUMMARY 6:51 AM [facility] REPOSITORY [facility] Medical Records Department [address] [place] [address] Emergency Department Summary 07/24/181938 MR#: [id number] Acct: [id number] Name: ANGELICA ANDUJAR Rep #: [id number] : 1980 37 From: Stephan Madison DO PCP: [facility] Status: DEP ER - ER Visit Summary Date of Service: 07/24/18 Chief Complaint: Anxiety History of Present Illness: The patient is a 37 F who states that for the past 2 hours she has been extremely anxious. She states that it has to do with life stressors but does not elaborate any further. Since being picked up by EMS and transported here she is feeling better. She denies any suicidal or homicidal ideation. The patient states that she is treated for a psychiatric condition with Wiggins and Trileptal but will not allow further. Physical Examination: Afebrile vital signs are stable Gen: Well-nourished well-developed Head: Normocephalic atraumatic Eyes: Perrl EOMI ENT: TMs clear no rhinorrhea moist mucous membranes Neck: Supple no lymphadenopathy no JVD nontender CVS: Regular rate rhythm no murmurs normal S1-S2 Respiratory: No distress clear to auscultation bilaterally chest nontender Abdomen: Soft nontender nondistended normal bowel sounds no masses Back: Nontender Extremity: Nontender no edema Skin: Normal color no rash Neuro: alert orientated 3 CN II-XII intact normal strength sensation reflexes gait cerebellar Psych: Patient has a very flat affect. No suicidal homicidal ideation. The patient has a very monotone voice. She does not appear manic. Test Results: Not indicated Emergency Department Course and Treatment: Patient was seen earlier in the emergency department today. She returned again for an outpatient CT. Now she is back. She has no focal findings. Patient has been extremely demanding of staff requesting a wash cloth and then the washcloth was too warm and then to cold. I do not see any medical emergency here tonight that I assist the patient on. Impression: 1. Anxiety This note was generated with Bedloo dictation software. It may contain incorrect words, spelling, and punctuation that were not noted in review of the chart prior to signing ED Disposition - Plan for ED Patient: Disposition: Home or Assisted Living Chief Complaint: Anxiety Instructions: ED Stress React Referrals: Samantha Shields [Primary Care Provider] - 1 Week What to do if you have Problems For any increased pain, shortness of breath, bleeding, nausea or vomiting, chest pain, or any unexpected problems, contact your Primary Care Provider. Call [facility] ([phone]) or report to the closest Emergency Room. Call 911 if necessary. 07/26/18 0651 <Electronically signed by Stephan Madison DO> Date Stephan Madison DO Cosigner Signature (If Indicated): Date CC: SAMANTHA [facility]ARANO EMERGENCY DEPARTMENT Observed: 07/25/2018 Status: F Source: [place] SUMMARY 9:40 AM [facility] REPOSITORY [facility] Medical Records Department [address] [place] [address] Emergency Department Summary 07/25/18 0934 MR#: [id number] Acct: [id number] Name: ANGELICA ANDUJAR Rep #: [id number] : 1980 37 From: Ronald Mcqueen PCP: SAMANTHA BEJARANO Status: REG ER - ER Visit Summary Date of Service: 07/25/18 Chief Complaint: Neck pain shoulder pain History of Present Illness: The patient is a 37 F awake and left-sided neck pain shoulder pain this morning. Symptoms worse with movement. No falls or injuries. No chest pains or shortness of breath. States she is out of her naproxen. No gastric ulcers. Reports numbness at the shoulder region. Patient unclear if she slept on her left side. Physical Examination: General: Alert and oriented 3, no acute distress HEENT: Normocephalic, atraumatic. Moist mucosa membranes Neck: supple, no midline tenderness, reproducible tenderness left cervical with tension palpated. Cardiovascular: Regular rate and rhythm, no murmurs Respiratory: Normal breath sounds, symmetric, no distress Abdomen: Soft, nontender, nondistended Extremities: Left upper shoulder: Tender palpation proximal shoulder with no deformities. Active full range of motion. Sensation was intact. Pulses intact distally. Neuro: no focal neurological deficits. Test Results: [] Emergency Department Course and Treatment: Patient reproducible muscle tenderness. Did perform a facilitated positional release left side of the neck with some improvement of symptoms. Started on naproxen for which she is tolerated in the past. She is concerned of interactions with her Invega, however no interactions on medication evaluation. She has no chest pains, clinically stable, no concerns for ACS. Reported paresthesia, however sensation intact. She will continue naproxen's at this time and follow-up with her PCP. Patient requested neck exercises instructions which was printed. Treatment Plan: [] Disposition: Discharge Impression: 1. Muscle strain 2. Somatic dysfunction cervical spine This note was generated with Bedloo dictation software. It may contain incorrect words, spelling, and punctuation that were not noted in review of the chart prior to signing ED Disposition - Plan for ED Patient: Disposition: Home or Assisted Living Chief Complaint: Upper Extremity Injury Diagnosis: Muscle strain, Cervical (neck) region somatic dysfunction Instructions: ED Strain Muscle Ext, ED Sprain Strain Neck, Neck Problems: Relieving Your Symptoms Prescriptions: Naproxen [Naprosyn] 500 mg PO BID #20 tablet Referrals: [facility],Samantha Hood [Primary Care Provider] - 3-5 Days What to do if you have Problems For any increased pain, shortness of breath, bleeding, nausea or vomiting, chest pain, or any unexpected problems, contact your Primary Care Provider. Call [facility] ([phone]) or report to the closest Emergency Room. Call 911 if necessary. 07/25/18 0940 <Electronically signed by Ronald Mcqueen> Date Ronald Mcqueen Cosigner Signature (If Indicated): Date CC: [facility] SINUS/FACIAL BONE Observed: 07/24/2018 Status: F Source: [place] 2:30 PM [facility] REPOSITORY [facility] Imaging Services [address] [address] Sinus/Facial Bone MR#: [id number] Acct: [id number] Name: ANGELICA ANDUJAR Rep #: [id number] : 1980 F 37 From: Danielle Camargo MD [facility] Status: REG CLI Study: Sinus/Facial Bone Date of Exam: 07/24/18 Exam# [id number] Ordering Dr: Frank Knight MD STUDY: CT MAXILLOFACIAL SINUSES REASON FOR EXAM: Female, 37 years old. Sinusitis RADIATION DOSAGE (If Supplied By Facility): CTDIvol = ( 33.45 ) mGy, DLP = ( 889.26 ) mGycm TECHNIQUE: The patient was scanned in a multi detector CT scanner. High resolution axial imaging was performed without the administration of intravenous contrast material. Sagittal and coronal images were reconstructed. Individualized dose optimization techniques were used for this CT. COMPARISON: December 14, 2017 FINDINGS: FRONTAL SINUSES: Normal aeration, without mucosal inflammatory disease. ETHMOIDAL SINUSES: Normal aeration, without mucosal inflammatory disease. MAXILLARY SINUSES: Normal aeration, without mucosal inflammatory disease. SPHENOIDAL SINUSES: Normal aeration, without mucosal inflammatory disease. There is patency of the bilateral maxillary infundibuli with normal uncinate processes, ethmoid bullae, and hiatus semilunaris. Normal bilateral middle turbinates. Normal bilateral inferior turbinates. There is a rightward nasal spur causing slight narrowing of the right-sided nasal canal the level of the right-sided middle turbinate. There is patency of the bilateral nasal airways. The visualized osseous structures are normal. The visualized bilateral orbital contents are normal. CT/Sinus/Facial Bone IMPRESSION: Normal CT examination of the maxillofacial sinuses. Electronically Signed: Danielle Camargo MD at 21:57 EST Tel , Service support , CC: Jose Carlos Knight MD; SAMANTHA BEJARANO Vault Mechanic: Signed EMERGENCY DEPARTMENT Observed: 07/24/2018 Status: F Source: [place] SUMMARY 2:22 PM [facility] REPOSITORY [facility] Medical Records Department [address] [place] [address] Emergency Department Summary 07/24/18 1356 MR#: [id number] Acct: [id number] Name: ANGELICA ANDUJAR Rep #: [id number] : 1980 37 From: Yariel Hilton MD PCP: SAMANTHA BE[facility]ARANO Status: REG ER - ER Visit Summary Date of Service: 07/24/18 Chief Complaint: Rash History of Present Illness: The patient is a 37 F presents to the emergency department with rash in her suprapubic area. The patient states that she has had it for almost a week. She states that [facility] She had negative testing for yeast and bacterial vaginosis. She states is involving mostly around the pubic hair. She does describe it is mildly itching. She has not taken anything for it. She denies any fevers or chills. She denies any vaginal discharge. Physical Examination: Exam is relatively unremarkable. Examination was done with female nurse audiometric technician. She does have an examination is consistent with folliculitis. There is no cellulitis or streaking. There is no abscess. Test Results: [] Emergency Department Course and Treatment: The patient does have allergy to clindamycin, but it is nausea and vomiting to the oral medication. She will be placed on topical clindamycin for folliculitis. She was counseled on local hygiene. She will be discharged home. Treatment Plan: [] Disposition: Discharge Impression: Folliculitis This note was generated with ImpactMediaation software. It may contain incorrect words, spelling, and punctuation that were not noted in review of the chart prior to signing ED Disposition - Plan for ED Patient: Chief Complaint: Rash Instructions: ED Folliculitis Prescriptions: Clindamycin Phosphate [Cleocin T] 60 ml TP TID #1 lotion Referrals: [facility],Samantha Hood [Primary Care Provider] - What to do if you have Problems For any increased pain, shortness of breath, bleeding, nausea or vomiting, chest pain, or any unexpected problems, contact your Primary Care Provider. Call [facility] ([phone]) or report to the closest Emergency Room. Call 911 if necessary. 07/24/18 1422 <Electronically signed by Yariel Hilton MD> Date Yariel Hilton MD Cosigner Signature (If Indicated): Date CC: [facility] PROGRESS Observed: 07/21/2018 Status: COMPLETED Source: [place] 10:31 AM [facility] REPOSITORY HNO ID: [id number] Author: Francisca Wen Service: (none) Author Type: Physician Type: Progress Notes Filed: 07/21/2018 10:31 AM Note Text: Can you let the patient know her culture was negative for a bacterial and yeast infection. She should continue perineal hygiene and care that was discussed at her visit. Thanks Observed: 07/19/2018 Status: F Source: [place] BACT/CAND VAG GR[facility] 2:25 PM [facility] REPOSITORY Sp. Request/Comment: - Swab Smear Result - BACTERIAL VAGINOSIS RESULT: Stain results consistent with normal vaginal keisha. No Yeast observed No Polymorphonuclear Leukocytes Performed By: #### BVCNSM #### [facility] [address] [address] PROGRESS Observed: 07/19/2018 Status: COMPLETED Source: [place] 2:17 PM [facility] REPOSITORY HNO ID: [id number] Author: Francisca Wen Service: (none) Author Type: Physician Type: Progress Notes Filed: 07/19/2018 2:59 PM Note Text: Angelica Andujar is a 37 year old female who presents for problem visit for vaginal pruritis, vaginal pain, urinary frequency. HPI: External and internal pruritis x 6 days. Shooting vaginal pain as well. No vaginal discharge. Using Nystatin cream for 3 days without relief. Feels similar to when she presented in April. No new soaps or laundry detergents. Using new pads, unscented, stopped using them 2 weeks. Denies fevers or vomiting. +Nausea. Last sexually active 2.5 months ago. No concern for STI's. PAST MEDICAL HISTORY Diagnosis Date - 11/2009 - Anxiety - Asthma - Depression - Recurrent UTI - Seasonal allergies - STD (sexually transmitted disease) Current Outpatient Prescriptions: beclomethasone (QVAR) 80 mcg/actuation inhaler Inhale 2 Puffs as instructed twice daily. OXcarbazepine (TRILEPTAL) 600 mg tablet Take 600 mg by mouth twice daily. Taking 900mg MELATONIN ORAL Take by mouth. 6mg paliperidone ER (INVEGA) 9 mg 24 hr tablet Take 9 mg by mouth once daily. sodium chloride (AYR, OCEAN) 0.65 % nasal spray Use 1 [place] in the nose as needed for Cold/Allergy Symptoms. albuterol HFA (PROAIR HFA) 90 mcg/actuation inhaler Inhale 2 Puffs as instructed every 4 hours as needed for Wheezing/Shortness of Breath. famotidine (PEPCID) 20 mg tablet Take 1 tablet by mouth at bedtime as needed. loratadine (CLARITIN) 10 mg tablet Take 1 tablet by mouth once daily. Multivitamin capsule Take 1 capsule by mouth once daily. Pseudoephedrine HCl (SUDAFED 12 HOUR) 120 mg TbER Take 1 tablet by mouth every 12 hours as needed. (Patient not taking: Reported on 07/19/2018 ) acetaminophen (TYLENOL ORAL) Take 325 mg by mouth. fluticasone (FLONASE) 50 mcg/actuation nasal spray Use 2 Sprays in each nostril once daily. (Patient not taking: Reported on 07/19/2018 ) No current facility-administered medications for this visit. Allergies As of Date: 07/19/2018 Allergen Noted Reaction ANTI-BACTERIAL CLEANSING [BENZETH*10/26/2012 Rash BEES 07/16/2010 Unknown BENZALKONIUM CHLORIDE 09/08/2012 Other: See Comments CLINDAMYCIN 03/27/2018 GI Upset DOXYCYCLINE 12/13/2012 GI Upset DUST MITES 04/26/2012 Unknown FLAGYL [METRONIDAZOLE HCL] 06/20/2012 Hives HAND LAWN CARE SPECIALIST [ETHYL ALCOHOL (SK*11/04/2009 Rash IODINE 02/18/2011 Rash LACTOSE INTOLERANCE [LACTASE] 11/04/2009 LATEX, NATURAL RUBBER 03/17/2018 Rash SAUK-SUIATTLE 12/07/2017 Anaphylaxis MELOXICAM 06/12/2018 Unknown METRONIDAZOLE 04/11/2018 Hives MOLD 04/26/2012 Unknown MORPHINE 03/02/2011 Itching PENICILLIN 06/18/2016 Unknown PET DANDER [OTHER] 10/20/2011 Unknown PREDNISONE 08/26/2012 Other: See Comments SEASONAL ALLERGIES 11/04/2009 Unknown SINGULAIR [MONTELUKAST] 12/07/2017 Unknown SODIUM LAURYL SULFATE 09/30/2010 Rash TREES 05/11/2012 Other: See Comments ZOFRAN [ONDANSETRON HCL (PF)] 03/02/2011 Other: See Comments Fully Assessed 07/19/2018 REVIEW OF SYSTEMS Abdomen: No abdominal pain, vomiting, diarrhea, or constipation. +Nausea Bladder: No dysuria, gross hematuria. +Urinary frequency. Expanded ROS: N/A Allergies and current medication updated:Yes EXAM: BP 120/80 Temp 98.2 Wt 194 lb 12.8 oz (88.4kg) GENERAL: pleasant, female in no apparent distress HEENT: Normocephalic and atraumatic NECK: full range of motion DERMATOLOGY: Normal and without lesions CHEST: Normal inspiratory effort ABDOMEN: soft, non-tender and no masses PELVIC: external genitalia normal, normal Bartholin's glands, urethra, Zoar's glands, no vulvar lesions, no cervical lesions, good vaginal support, physiologic discharge present, normal appearing perineal body and perianal region NEURO: alert and oriented x3,exam grossly non-focal EXTREMITIES: normal ASSESSMENT AND PLAN: Encounter Diagnosis ICD-10-CM 1. Vaginal itching N89.8 BACT/MISTY VAG GRAM STAIN 2. Vaginal pain R10.2 3. Urinary frequency R35.0 Vaginal burning and pain: ? Pt has no concern for STI's ? Vaginitis cx sent ? She is currently using Nystatin cream without relief ? Normal exam today ? Discussed perineal care and hygiene measures Urinary frequency: ? Urine dip negative for blood or signs on infection Francisca Wen DO CNJESÚS Observed: 07/19/2018 Status: COMPLETED Source: [place] 2:15 PM [facility] REPOSITORY Office Visit (WOOB) ANGELICA ANDUJAR ([id number]) 1980 F Date Time Provider Department 07/19/18 2:15 PM FRANCISCA WEN During your visit today, we recorded the following information about you: Temperature Blood pressure Weight 98.2 degrees 120/80 88.4 kg Francisca Wen MD 07/19/2018 2:59 PM Signed Angelica Andujar is a 37 year old female who presents for problem visit for vaginal pruritis, vaginal pain, urinary frequency. HPI: External and internal pruritis x 6 days. Shooting vaginal pain as well. No vaginal discharge. Using Nystatin cream for 3 days without relief. Feels similar to when she presented in April. No new soaps or laundry detergents. Using new pads, unscented, stopped using them 2 weeks. Denies fevers or vomiting. +Nausea. Last sexually active 2.5 months ago. No concern for STI's. PAST MEDICAL HISTORY Diagnosis Date - 11/2009 - Anxiety - Asthma - Depression - Recurrent UTI - Seasonal allergies - STD (sexually transmitted disease) Current Outpatient Prescriptions: beclomethasone (QVAR) 80 mcg/actuation inhaler Inhale 2 Puffs as instructed twice daily. OXcarbazepine (TRILEPTAL) 600 mg tablet Take 600 mg by mouth twice daily. Taking 900mg MELATONIN ORAL Take by mouth. 6mg paliperidone ER (INVEGA) 9 mg 24 hr tablet Take 9 mg by mouth once daily. sodium chloride (AYR, OCEAN) 0.65 % nasal spray Use 1 [place] in the nose as needed for Cold/Allergy Symptoms. albuterol HFA (PROAIR HFA) 90 mcg/actuation inhaler Inhale 2 Puffs as instructed every 4 hours as needed for Wheezing/Shortness of Breath. famotidine (PEPCID) 20 mg tablet Take 1 tablet by mouth at bedtime as needed. loratadine (CLARITIN) 10 mg tablet Take 1 tablet by mouth once daily. Multivitamin capsule Take 1 capsule by mouth once daily. Pseudoephedrine HCl (SUDAFED 12 HOUR) 120 mg TbER Take 1 tablet by mouth every 12 hours as needed. (Patient not taking: Reported on 07/19/2018 ) acetaminophen (TYLENOL ORAL) Take 325 mg by mouth. fluticasone (FLONASE) 50 mcg/actuation nasal spray Use 2 Sprays in each nostril once daily. (Patient not taking: Reported on 07/19/2018 ) No current facility-administered medications for this visit. Allergies As of Date: 07/19/2018 Allergen Noted Reaction ANTI-BACTERIAL CLEANSING [BENZETH*10/26/2012 Rash BEES 07/16/2010 Unknown BENZALKONIUM CHLORIDE 09/08/2012 Other: See Comments CLINDAMYCIN 03/27/2018 GI Upset DOXYCYCLINE 12/13/2012 GI Upset DUST MITES 04/26/2012 Unknown FLAGYL [METRONIDAZOLE HCL] 06/20/2012 Hives HAND LAWN CARE SPECIALIST [ETHYL ALCOHOL (SK*11/04/2009 Rash IODINE 02/18/2011 Rash LACTOSE INTOLERANCE [LACTASE] 11/04/2009 LATEX, NATURAL RUBBER 03/17/2018 Rash SAUK-SUIATTLE 12/07/2017 Anaphylaxis MELOXICAM 06/12/2018 Unknown METRONIDAZOLE 04/11/2018 Hives MOLD 04/26/2012 Unknown MORPHINE 03/02/2011 Itching PENICILLIN 06/18/2016 Unknown PET DANDER [OTHER] 10/20/2011 Unknown PREDNISONE 08/26/2012 Other: See Comments SEASONAL ALLERGIES 11/04/2009 Unknown SINGULAIR [MONTELUKAST] 12/07/2017 Unknown SODIUM LAURYL SULFATE 09/30/2010 Rash TREES 05/11/2012 Other: See Comments ZOFRAN [ONDANSETRON HCL (PF)] 03/02/2011 Other: See Comments Fully Assessed 07/19/2018 REVIEW OF SYSTEMS Abdomen: No abdominal pain, vomiting, diarrhea, or constipation. +Nausea Bladder: No dysuria, gross hematuria. +Urinary frequency. Expanded ROS: N/A Allergies and current medication updated:Yes EXAM: BP 120/80 Temp 98.2 Wt 194 lb 12.8 oz (88.4kg) GENERAL: pleasant, female in no apparent distress HEENT: Normocephalic and atraumatic NECK: full range of motion DERMATOLOGY: Normal and without lesions CHEST: Normal inspiratory effort ABDOMEN: soft, non-tender and no masses PELVIC: external genitalia normal, normal Bartholin's glands, urethra, Zoar's glands, no vulvar lesions, no cervical lesions, good vaginal support, physiologic discharge present, normal appearing perineal body and perianal region NEURO: alert and oriented x3,exam grossly non-focal EXTREMITIES: normal ASSESSMENT AND PLAN: Encounter Diagnosis ICD-10-CM 1. Vaginal itching N89.8 BACT/MISTY VAG GRAM STAIN 2. Vaginal pain R10.2 3. Urinary frequency R35.0 Vaginal burning and pain: ? Pt has no concern for STI's ? Vaginitis cx sent ? She is currently using Nystatin cream without relief ? Normal exam today ? Discussed perineal care and hygiene measures Urinary frequency: ? Urine dip negative for blood or signs on infection Francisca Wen, Referring Provider: SELF [200] Allergies As of Date: 07/19/2018 Noted Allergy Reaction ANTI-BACTERIAL CLEANSING (BENZETH*10/26/2012 2 - Rash BEES 07/16/2010 16 - Unknown Comments: [place] [facility] [place] BENZALKONIUM CHLORIDE 09/08/2012 14 - Other: See Comments Comments: Skin irritations CLINDAMYCIN 03/27/2018 8 - GI Upset DOXYCYCLINE 12/13/2012 8 - GI Upset Comments: stomach cramps DUST MITES 04/26/2012 16 - Unknown Comments: Dust mites and cockroaches FLAGYL (METRONIDAZOLE HCL) 06/20/2012 4 - Hives HAND LAWN CARE SPECIALIST (ETHYL ALCOHOL (SK*11/04/2009 2 - Rash Comments: PT HAS SENSITIVE SKIN. O.K. FOR MEDICAL PROFESSIONAL TO USE HAND LAWN CARE SPECIALIST AND THEN TOUCH HER, BUT SHE HERSELF DOES NOT USE IT. IODINE 02/18/2011 2 - Rash LACTOSE INTOLERANCE (LACTASE) 11/04/2009 LATEX, NATURAL RUBBER 03/17/2018 2 - Rash SAUK-SUIATTLE 12/07/2017 10 - Anaphylaxis MELOXICAM 06/12/2018 16 - Unknown METRONIDAZOLE 04/11/2018 4 - Hives MOLD 04/26/2012 16 - Unknown MORPHINE 03/02/2011 9 - Itching PENICILLIN 06/18/2016 16 - Unknown pet dander [Other] 10/20/2011 16 - Unknown Comments: Cat, Dog, Horse PREDNISONE 08/26/2012 14 - Other: See Comments Comments: Moodiness, restlessness, states feels like crap all over. SEASONAL ALLERGIES 11/04/2009 16 - Unknown Comments: Trees, grasses, weeds, ragweed. SINGULAIR (MONTELUKAST) 12/07/2017 16 - Unknown Comments: Possible rash SODIUM LAURYL SULFATE 09/30/2010 2 - Rash Comments: Skin irritation to scalp TREES 05/11/2012 14 - Other: See Comments ZOFRAN (ONDANSETRON HCL (PF)) 03/02/2011 14 - Other: See Comments Comments: Zofran causes cramping and constipation Date Reviewed: 07/19/2018 Reviewed by: Francisca Wen - Fully Assessed Reason for Visit: Vaginal Problem [117] Primary Visit Diagnosis:Vaginal itching [N89.8] Other Visit Diagnoses:Vaginal pain [R10.2] Urinary frequency [R35.0] Order(s):BACT/MISTY VAG GRAM STAIN [SQBVCNSM] Order #: [id number] UA DIP, URINE (POC) [[id number]] Order #: [id number]. #:[id number] Prescriptions as of 07/19/2018 Sig: BECLOMETHASONE DIPROPIONATE 8* Inhale 2 Puffs as instructed * OXCARBAZEPINE 600 MG TABLET Take 600 mg by mouth twice da* MELATONIN ORAL Take by mouth. 6mg PALIPERIDONE ER 9 MG TABLET,E* Take 9 mg by mouth once daily. SODIUM CHLORIDE 0.65 % NASAL * Use 1 [place] in the nose as ne* ALBUTEROL SULFATE HFA 90 MCG/* Inhale 2 Puffs as instructed * FAMOTIDINE 20 MG TABLET Take 1 tablet by mouth at bed* LORATADINE 10 MG TABLET Take 1 tablet by mouth once d* MULTIVITAMIN CAPSULE Take 1 capsule by mouth once * PSEUDOEPHEDRINE ER 120 MG TAB* Take 1 tablet by mouth every * Patient not taking: Reported on 07/19/2018 TYLENOL ORAL Take 325 mg by mouth. FLUTICASONE 50 MCG/ACTUATION * Use 2 Sprays in each nostril * Patient not taking: Reported on 07/19/2018 Problem List As Of Date 07/19/2018 Noted Resolved Frequency of urination [R35.0] INVALID FOR*10/20/2011 Pelvic pain in female [R10.2] INVALID FOR*10/20/2011 Microscopic hematuria [R31.29] INVALID FOR*09/15/2016 Other hammer toe (acquired) [M20.40] INVALID FOR*10/20/2011 Hallux valgus (acquired) [M20.10] INVALID FOR* Internal hemorrhoids without mention of complic*INVALID FOR*10/20/2011 Diarrhea [R19.7] INVALID FOR*10/20/2011 Abdominal pain, generalized [R10.84] INVALID FOR*10/20/2011 Low back pain [M54.5] INVALID FOR* Closed fracture of metatarsal bone(s) [S92.309A]INVALID FOR*09/15/2016 Tendonitis [M77.9] INVALID FOR*09/15/2016 Acne Vulgaris: Grade III Inflammatory and Comed*INVALID FOR*09/15/2016 Other seborrheic dermatitis [L21.8] INVALID FOR*09/15/2016 History of cold-induced urticaria [Z87.2] INVALID FOR* Seborrhea [L21.9] INVALID FOR*09/15/2016 Eczematous dermatitis [L30.9] INVALID FOR*09/15/2016 Xerosis cutis [L85.3] INVALID FOR*09/15/2016 Backache, unspecified [M54.9] INVALID FOR*09/15/2016 Asthma [J45.909] INVALID FOR* Attention-deficit hyperactivity disorder, predo*INVALID FOR* 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 Follow-up and Disposition History Recorded Encounter Status:Closed by FRANCISCA WEN MD on 07/19/18 PROGRESS Observed: 07/13/2018 Status: COMPLETED Source: [place] 8:39 AM [facility] REPOSITORY HNO ID: [id number] Author: Souleymane Mclaughlin (Pa) Service: (none) Author Type: Physician Cinder Pit Crane Operator Type: Progress Notes Filed: 07/13/2018 8:43 AM Note Text: Subjective HPI Patient presents with the chief complaint of chronic nasal congestion. She denies any sinus pressure or pain. She had been seen here about a month ago and also followed up with her PCP. She has been using antihistamines but would prefer not to use Flonase as she states she has an allergy to prednisone dose on a use an inhaled steroid. She denies fevers or chills. No significant cough. She does follow pulmonology for asthma. She is requesting a referral to ENT and some saline nasal spray. She does have some seasonal allergies as well. No animals in her home. Review of Systems Constitutional: Negative. HENT: Positive for congestion. Negative for ear pain, sinus pain and sore throat. Eyes: Negative. Respiratory: Negative. Negative for cough. Cardiovascular: Negative. All other systems reviewed and are negative. PAST MEDICAL HISTORY Diagnosis Date - 11/2009 - Anxiety - Asthma - Depression - Recurrent UTI - Seasonal allergies - STD (sexually transmitted disease) Current Outpatient Prescriptions: paliperidone ER (INVEGA) 9 mg 24 hr tablet Take 9 mg by mouth once daily. Disp: Rfl: sodium chloride (AYR, OCEAN) 0.65 % nasal spray Use 1 [place] in the nose as needed for Cold/Allergy Symptoms. Disp: 1 Bottle Rfl: 0 Pseudoephedrine HCl (SUDAFED 12 HOUR) 120 mg TbER Take 1 tablet by mouth every 12 hours as needed. Disp: 10 tablet Rfl: 0 acetaminophen (TYLENOL ORAL) Take 325 mg by mouth. Disp: Rfl: albuterol HFA (PROAIR HFA) 90 mcg/actuation inhaler Inhale 2 Puffs as instructed every 4 hours as needed for Wheezing/Shortness of Breath. Disp: 1 Inhaler Rfl: 0 famotidine (PEPCID) 20 mg tablet Take 1 tablet by mouth at bedtime as needed. Disp: Rfl: 0 fluticasone (FLONASE) 50 mcg/actuation nasal spray Use 2 Sprays in each nostril once daily. Disp: 1 Bottle Rfl: 11 loratadine (CLARITIN) 10 mg tablet Take 1 tablet by mouth once daily. Disp: 30 tablet Rfl: 11 Multivitamin capsule Take 1 capsule by mouth once daily. Disp: Rfl: No current facility-administered medications for this visit. PAST SURGICAL HISTORY Procedure Laterality Date - COLONOSCOPY W/BX 03/02/11 - EGD W/O OR W/BRUSH/WASH 11/14/2012 EGD - MED INC ALL EX DRUG 11/2009 - PAST SURGICAL HISTORY OF WISDOM TEETH FAMILY HISTORY Problem Relation Age of Onset - Alcohol/Drug Mother - Arthritis Mother - Asthma Mother - Cancer Mother CANCER - Hypertension Mother - Stroke Mother - Cancer Father LUNG CANCER - Emphysema Father - Asthma Brother - Breast Cancer Maternal Aunt - Hypertension Brother Social History Substance Use Topics - Smoking status: Former Smoker Years: 3.00 Types: Cigarettes Quit date: 03/03/2018 - Smokeless tobacco: Never Used Comment: 2 weeks no cigarettes - Alcohol use Yes Comment: Seldom BP 120/78 Pulse 97 Temp 37.2 ?C (98.9 ?F) (Tympanic) Wt 86.6 kg (191 lb) SpO2 97% BMI 29.91 kg/m? Objective Physical Exam Constitutional: She is oriented to person, place, and time and well-developed, well-nourished, and in no distress. HENT: Head: Normocephalic and atraumatic. Right Ear: Tympanic membrane, external ear and ear canal normal. Left Ear: Tympanic membrane, external ear and ear canal normal. Nose: Mucosal edema present. Mouth/Throat: Uvula is midline, oropharynx is clear and moist and mucous membranes are normal. Cardiovascular: Normal rate, regular rhythm and normal heart sounds. Pulmonary/Chest: Effort normal and breath sounds normal. Neurological: She is alert and oriented to person, place, and time. Skin: Skin is warm and dry. No rash noted. Psychiatric: Affect and judgment normal. Nursing note and vitals reviewed. ASSESSMENT/PLAN: 1. Chronic nasal congestion - ICD9: 478.19, ICD10: R09.81 I did give her some Ina saline nasal spray. Also to give her some Sudafed. She does not have this listed as an allergy. This is just for short-term over the next few days as needed. I did refer her to [facility] to Dr. Busch. Patient does not have any sinus pressure or pain or indication for antibiotic at this time. Likely allergy related. Instructed to continue the antihistamines as well. RAYMUNDO Yousif Observed: 07/13/2018 Status: COMPLETED Source: [place] 8:00 AM [facility] REPOSITORY Office Visit (WSTR) ANGELICA ANDUJAR ([id number]) 1980 F Date Time Provider Department 07/13/18 8:00 AM SOULEYMANE MCLAUGHLIN) [facility] During your visit today, we recorded the following information about you: Temperature Pulse Blood pressure Weight 98.9 degrees 97/minute 120/78 86.6 kg Souleymane Mclaughlin PA-C 07/13/2018 8:43 AM Signed Subjective HPI Patient presents with the chief complaint of chronic nasal congestion. She denies any sinus pressure or pain. She had been seen here about a month ago and also followed up with her PCP. She has been using antihistamines but would prefer not to use Flonase as she states she has an allergy to prednisone dose on a use an inhaled steroid. She denies fevers or chills. No significant cough. She does follow pulmonology for asthma. She is requesting a referral to ENT and some saline nasal spray. She does have some seasonal allergies as well. No animals in her home. Review of Systems Constitutional: Negative. HENT: Positive for congestion. Negative for ear pain, sinus pain and sore throat. Eyes: Negative. Respiratory: Negative. Negative for cough. Cardiovascular: Negative. All other systems reviewed and are negative. PAST MEDICAL HISTORY Diagnosis Date - 11/2009 - Anxiety - Asthma - Depression - Recurrent UTI - Seasonal allergies - STD (sexually transmitted disease) Current Outpatient Prescriptions: paliperidone ER (INVEGA) 9 mg 24 hr tablet Take 9 mg by mouth once daily. Disp: Rfl: sodium chloride (AYR, OCEAN) 0.65 % nasal spray Use 1 [place] in the nose as needed for Cold/Allergy Symptoms. Disp: 1 Bottle Rfl: 0 Pseudoephedrine HCl (SUDAFED 12 HOUR) 120 mg TbER Take 1 tablet by mouth every 12 hours as needed. Disp: 10 tablet Rfl: 0 acetaminophen (TYLENOL ORAL) Take 325 mg by mouth. Disp: Rfl: albuterol HFA (PROAIR HFA) 90 mcg/actuation inhaler Inhale 2 Puffs as instructed every 4 hours as needed for Wheezing/Shortness of Breath. Disp: 1 Inhaler Rfl: 0 famotidine (PEPCID) 20 mg tablet Take 1 tablet by mouth at bedtime as needed. Disp: Rfl: 0 fluticasone (FLONASE) 50 mcg/actuation nasal spray Use 2 Sprays in each nostril once daily. Disp: 1 Bottle Rfl: 11 loratadine (CLARITIN) 10 mg tablet Take 1 tablet by mouth once daily. Disp: 30 tablet Rfl: 11 Multivitamin capsule Take 1 capsule by mouth once daily. Disp: Rfl: No current facility-administered medications for this visit. PAST SURGICAL HISTORY Procedure Laterality Date - COLONOSCOPY W/BX 03/02/11 - EGD W/O OR W/BRUSH/WASH 11/14/2012 EGD - MED INC ALL EX DRUG 11/2009 - PAST SURGICAL HISTORY OF WISDOM TEETH FAMILY HISTORY Problem Relation Age of Onset - Alcohol/Drug Mother - Arthritis Mother - Asthma Mother - Cancer Mother CANCER - Hypertension Mother - Stroke Mother - Cancer Father LUNG CANCER - Emphysema Father - Asthma Brother - Breast Cancer Maternal Aunt - Hypertension Brother Social History Substance Use Topics - Smoking status: Former Smoker Years: 3.00 Types: Cigarettes Quit date: 03/03/2018 - Smokeless tobacco: Never Used Comment: 2 weeks no cigarettes - Alcohol use Yes Comment: Seldom BP 120/78 Pulse 97 Temp 37.2 ?C (98.9 ?F) (Tympanic) Wt 86.6 kg (191 lb) SpO2 97% BMI 29.91 kg/m? Objective Physical Exam Constitutional: She is oriented to person, place, and time and well-developed, well-nourished, and in no distress. HENT: Head: Normocephalic and atraumatic. Right Ear: Tympanic membrane, external ear and ear canal normal. Left Ear: Tympanic membrane, external ear and ear canal normal. Nose: Mucosal edema present. Mouth/Throat: Uvula is midline, oropharynx is clear and moist and mucous membranes are normal. Cardiovascular: Normal rate, regular rhythm and normal heart sounds. Pulmonary/Chest: Effort normal and breath sounds normal. Neurological: She is alert and oriented to person, place, and time. Skin: Skin is warm and dry. No rash noted. Psychiatric: Affect and judgment normal. Nursing note and vitals reviewed. ASSESSMENT/PLAN: 1. Chronic nasal congestion - ICD9: 478.19, ICD10: R09.81 I did give her some Ina saline nasal spray. Also to give her some Sudafed. She does not have this listed as an allergy. This is just for short-term over the next few days as needed. I did refer her to [facility] to Dr. Busch. Patient does not have any sinus pressure or pain or indication for antibiotic at this time. Likely allergy related. Instructed to continue the antihistamines as well. Souleymane Mclaughlin PA-C Referring Provider: SELF [200] Allergies As of Date: 07/13/2018 Noted Allergy Reaction ANTI-BACTERIAL CLEANSING (BENZETH*10/26/2012 2 - Rash BEES 07/16/2010 16 - Unknown Comments: Listed on records from Samantha Hood BENZALKONIUM CHLORIDE 09/08/2012 14 - Other: See Comments Comments: Skin irritations CLINDAMYCIN 03/27/2018 8 - GI Upset DOXYCYCLINE 12/13/2012 8 - GI Upset Comments: stomach cramps DUST MITES 04/26/2012 16 - Unknown Comments: Dust mites and cockroaches FLAGYL (METRONIDAZOLE HCL) 06/20/2012 4 - Hives HAND LAWN CARE SPECIALIST (ETHYL ALCOHOL (SK*11/04/2009 2 - Rash Comments: PT HAS SENSITIVE SKIN. O.K. FOR MEDICAL PROFESSIONAL TO USE HAND LAWN CARE SPECIALIST AND THEN TOUCH HER, BUT SHE HERSELF DOES NOT USE IT. IODINE 02/18/2011 2 - Rash LACTOSE INTOLERANCE (LACTASE) 11/04/2009 LATEX, NATURAL RUBBER 03/17/2018 2 - Rash SAUK-SUIATTLE 12/07/2017 10 - Anaphylaxis MELOXICAM 06/12/2018 16 - Unknown METRONIDAZOLE 04/11/2018 4 - Hives MOLD 04/26/2012 16 - Unknown MORPHINE 03/02/2011 9 - Itching PENICILLIN 06/18/2016 16 - Unknown pet dander [Other] 10/20/2011 16 - Unknown Comments: Cat, Dog, Horse PREDNISONE 08/26/2012 14 - Other: See Comments Comments: Moodiness, restlessness, states feels like crap all over. SEASONAL ALLERGIES 11/04/2009 16 - Unknown Comments: Trees, grasses, weeds, ragweed. SINGULAIR (MONTELUKAST) 12/07/2017 16 - Unknown Comments: Possible rash SODIUM LAURYL SULFATE 09/30/2010 2 - Rash Comments: Skin irritation to scalp TREES 05/11/2012 14 - Other: See Comments ZOFRAN (ONDANSETRON HCL (PF)) 03/02/2011 14 - Other: See Comments Comments: Zofran causes cramping and constipation Date Reviewed: 07/13/2018 Reviewed by: Ena Conn Ma - Fully Assessed Reason for Visit: Nasal Congestion [235] Cmt: x2 months Sinus Problem [99] Cmt: x2 months Primary Visit Diagnosis:Chronic nasal congestion [R09.81] Order(s):sodium chloride (AYR, OCEAN) 0.65 % nasal sprayUse 1 [place] in the nose as needed for Cold/Allergy Symptoms.Disp: 1 BottleRfl: 0 Pseudoephedrine HCl (SUDAFED 12 HOUR) 120 mg TbERTake 1 tablet by mouth every 12 hours as needed.Disp: 10 tabletRfl: 0 Prescriptions as of 07/13/2018 Sig: PALIPERIDONE ER 9 MG TABLET,E* Take 9 mg by mouth once daily. SODIUM CHLORIDE 0.65 % NASAL * Use 1 [place] in the nose as ne* PSEUDOEPHEDRINE ER 120 MG TAB* Take 1 tablet by mouth every * TYLENOL ORAL Take 325 mg by mouth. ALBUTEROL SULFATE HFA 90 MCG/* Inhale 2 Puffs as instructed * FAMOTIDINE 20 MG TABLET Take 1 tablet by mouth at bed* FLUTICASONE 50 MCG/ACTUATION * Use 2 Sprays in each nostril * LORATADINE 10 MG TABLET Take 1 tablet by mouth once d* MULTIVITAMIN CAPSULE Take 1 capsule by mouth once * Problem List As Of Date 07/13/2018 Noted Resolved Frequency of urination [R35.0] INVALID FOR*10/20/2011 Pelvic pain in female [R10.2] INVALID FOR*10/20/2011 Microscopic hematuria [R31.29] INVALID FOR*09/15/2016 Other hammer toe (acquired) [M20.40] INVALID FOR*10/20/2011 Hallux valgus (acquired) [M20.10] INVALID FOR* Internal hemorrhoids without mention of complic*INVALID FOR*10/20/2011 Diarrhea [R19.7] INVALID FOR*10/20/2011 Abdominal pain, generalized [R10.84] INVALID FOR*10/20/2011 Low back pain [M54.5] INVALID FOR* Closed fracture of metatarsal bone(s) [S92.309A]INVALID FOR*09/15/2016 Tendonitis [M77.9] INVALID FOR*09/15/2016 Acne Vulgaris: Grade III Inflammatory and Comed*INVALID FOR*09/15/2016 Other seborrheic dermatitis [L21.8] INVALID FOR*09/15/2016 History of cold-induced urticaria [Z87.2] INVALID FOR* Seborrhea [L21.9] INVALID FOR*09/15/2016 Eczematous dermatitis [L30.9] INVALID FOR*09/15/2016 Xerosis cutis [L85.3] INVALID FOR*09/15/2016 Backache, unspecified [M54.9] INVALID FOR*09/15/2016 Asthma [J45.909] INVALID FOR* Attention-deficit hyperactivity disorder, predo*INVALID FOR* Pain disorder with psychological component [F45*INVALID FOR* Adjustment disorder with mixed anxiety and depr*INVALID FOR* Chronic midline low back pain without sciatica *INVALID FOR* Cervicalgia [M54.2] INVALID FOR* Degeneration of cervical intervertebral disc [M*INVALID FOR* Allergic rhinitis [J30.9] INVALID FOR* Prescriptions ordered this encounter Disp Refills Start End SODIUM CHLORIDE 0.65 % NASAL SPRAY A* 1 Diogenes* 0 07/13/2018 Route: NASAL Sig: Use 1 [place] in the nose as needed for Cold/Allergy Symptoms. PSEUDOEPHEDRINE ER 120 MG TABLET,EXT* 10 t* 0 07/13/2018 Route: ORAL Sig: Take 1 tablet by mouth every 12 hours as needed. Encounter Status:Closed by SOULEYMANE MCLAUGHLIN PA-C on 07/13/18 EMERGENCY DEPARTMENT Observed: 07/13/2018 Status: F Source: [place] SUMMARY 12:54 AM [facility] REPOSITORY [facility] Medical Records Department [address] [place] [address] Emergency Department Summary 07/13/18 0052 MR#: [id number] Acct: [id number] Name: ANGELICA ANDUJAR C Rep #: [id number] : 1980 37 From: Duncan Velásquez MD PCP: SAMANTHA HOOD [facility] Status: PRE ER - ER Visit Summary Date of Service: 07/13/18 Chief Complaint: Cannot sleep History of Present Illness: The patient is a 37 F who cannot sleep. She called a cab to try to get to the emergency department since she was in her bed and could not sleep, however she could not get a cab therefore she called an ambulance. She also claims she was cold but that is gone. No fevers. She is asking me why she was cold and chills. Physical Examination: Not appear in acute distress. Moist mucous membranes, no obvious facial deformity No C-spine tenderness supple neck. Regular rate and rhythm without any obvious murmurs Clear lungs bilaterally speaking in full sentences without any obvious respiratory distress Abdomen soft and nontender no guarding or rebound Moves all extremities without any difficulty or pain. Skin does not show any obvious rashes or lesions, no trauma. Alert oriented 3 with no gross focal deficit Emergency Department Course and Treatment: I saw the patient at 1245, per hospital policy I am not able to give any sleep aids, I will give her Benadryl and she will take a cab back home. Again she asked me why she was having chills, she has a normal exam without fever I cannot answer that question. Regardless she is medically stable and based on my history and physical exam I do not see any signs of impending doom Disposition: Discharge stable condition Impression: Insomnia This note was generated with [employer] dictation software. It may contain incorrect words, spelling, and punctuation that were not noted in review of the chart prior to signing ED Disposition - Plan for ED Patient: Disposition: Home or Assisted Living Chief Complaint: General Illness Instructions: Treating Insomnia Referrals: Samantha Shields [Primary Care Provider] - 3-5 Days What to do if you have Problems For any increased pain, shortness of breath, bleeding, nausea or vomiting, chest pain, or any unexpected problems, contact your Primary Care Provider. Call [facility] ([phone]) or report to the closest Emergency Room. Call 911 if necessary. 07/13/18 0054 <Electronically signed by Duncan Velásquez MD> Date Duncan Velásquez MD Cosigner Signature (If Indicated): Date CC: [facility] PULMONARY VISIT REPORT Observed: 07/12/2018 Status: F Source: [place] 2:11 PM [facility] REPOSITORY [facility] [address] [place] [address] OFFICE VISIT Date of Service: 07/12/18 MR#: [id number] Acct: [id number] Name: ANGELICA ANDUJAR Rep #: [id number] : 1980 Provider: Hans Ramos MD Age/Sex: 37/F Location: [facility] Status: Signed Assessment AND Plan Problems 1. Moderate persistent asthma without complication J45.40 Plan Patient with a reported history of asthma. At least in patient's current mental status, performing pulmonary function tests for verification would be very difficult. Doubt patient would be able to tolerate plethysmography. However, if patient has asthma, the use of albuterol is excessive and would indicate uncontrolled asthma. Will attempt to increase/step up patient's therapy to a combination inhaler. Signs and symptoms of exacerbation were reviewed in detail. Sick policy was reviewed. Patient voiced understanding. Discontinue Qvar. Add Symbicort. Potential pulmonary function test in the future Medications New: albuterol sulfate HFA 90 mcg/actuation (Vent2 puffs Inhalation Q4H PRN ashwin HFA) budesonide-formoterol 160-4.5 mcg/actuation 2 puffs Inhalation BID 10.2 grams 5RF J45.909 (Symbicort) Discontinued: beclomethasone dipropionate 80 mcg/actuation Discontinued Reason: OInhalation 0RF rder Changed HPI Evaluation of Asthma : Chief Complaint: Shortness of breath, multiple ER visits Details: Patient is a 37-year-old female, currently under the care of the [facility], who presents as a new consultation secondary to reported asthma. Patient reports that she has had multiple ER visits in the past secondary to shortness of breath. Patient is currently on Qvar therapy and reports that she is been using her albuterol twice a day recently. Patient states that she has very bad seasonal allergies, but management is highly difficult secondary to previous allergies. Patient is on Claritin therapy. Patient reports she gets her rest of Singulair therapy. Patient has had Flonase in the past, but reports burning limits her compliance. Patient is not able to provide much information on her trigger symptoms. Patient was very restless during the office visit and spent most of the time staring out the window. Patient denies any pain. Patient reports that she was recently hospitalized for 3 weeks, but did not go into any detail. Patient reports she has had pulmonary function tests in the past that she states was normal. Documentation personally reviewed 8 pages of documentation were reviewed from patient's primary care physician. Patient with multiple allergies listed including prednisone therapy, but is currently on Qvar and Ventolin for reported asthma. Patient does smoke 2-3 cigarettes/day per documentation. Patient has presented to the ER complaining of back pain that she is associated with uncontrolled cough. HPI Comments Details: Please note patients behavior during intake is very manic like. Patient asked to moved rooms twice. Intake Vital Signs07/12/18 Height 5 ft 7 in 07/12/18 Weight: 86.636 kg Intake Visit Reasons: Evaluation of Asthma Accompanied by: Self Allergies clindamycin Allergy (Verified 07/12/18 13:36) Nausea/Vom/Diarrhea influenza virus vaccine, specific [influenza virus vacc,specific] Allergy (Verified 07/12/18 13:36) Other Latex, Natural Rubber Allergy (Verified 07/12/18 13:36) Rash meloxicam Allergy (Verified 07/12/18 13:36) Other metronidazole [From Flagyl] Allergy (Verified 07/12/18 13:36) Hives montelukast [From Singulair] Allergy (Verified 07/12/18 13:36) Rash morphine Allergy (Verified 07/12/18 13:36) Other Penicillins [PCN] Allergy (Verified 07/12/18 13:36) Unknown prednisone Adverse Reaction (Verified 07/12/18 13:36) Other ANTIBACTERIAL SOAP Allergy (Uncoded 07/12/18 13:36) Hives HAND LAWN CARE SPECIALIST Allergy (Uncoded 07/12/18 13:36) Hives SEASONAL ALLERGIES Allergy (Uncoded 07/12/18 13:36) Other Medications Loratadine 10 mg PO DAILY 05/12/18 [History Confirmed 07/12/18] Cholecalciferol (Vitamin D3) [Vitamin D3] 1,000 unit PO DAILY 06/10/18 [History Confirmed 07/12/18] Famotidine [Pepcid] 20 mg PO DAILY 06/10/18 [History Confirmed 07/12/18] Naproxen [Naprosyn] 500 mg PO BID PRN #20 tab 06/13/18 [Rx Confirmed 07/12/18] Hydroxyzine Pamoate [Vistaril] 50 mg PO TID PRN PRN #20 cap 06/17/18 [Rx Confirmed 07/12/18] albuterol sulfate HFA 90 mcg/actuation aerosol inhaler 2 puff INHALATION Q4H PRN g 07/12/18 [History Confirmed 07/12/18] budesonide-formoterol HFA 160 mcg-4.5 mcg/actuation aerosol inhaler 2 puff INHALATION BID #10.2 g 07/12/18 [Rx Confirmed 07/12/18] PFSH Medical History Chronic cough (Chronic) ASTHMA (Acute) Anemia (Acute) Anxiety (Acute) Arthritis (Acute) Chest pain (Acute) Depression (Acute) Difficulty balancing (Acute) Fatigue (Acute) NECK/BACK PAIN (Acute) Severe headache (Acute) Shoulder pain (Acute) Stomach ulcer (Acute) Social History Smoking Status: Former smoker how long ago did patient quit smokin second hand exposure: Yes alcohol intake: never Review of Systems Const CONSTITUTIONAL: Negative anorexia, body ache, chills, daytime sleepiness, fever(s), night sweats, oral thrush, stops breathing during sleep, weight loss, sleeping in chair, fatigue, weight loss, weight gain, frequent colds, seasonal allergies, other, headache(s) or orthopnea EETM Ear Nose Throat Mouth: Positive hearing normal, nasal congestion and nasal discharge; negative hard of hearing, hoarseness, dry mouth in morning, change in vision, itchy eyes, eye pain, swallowing Difficulty, ear pain, nose bleed, headache(s), mouth pain, post nasal drip, sinus pain, sinus pressure, sore throat or other Cardio Cardiovascular: Negative chest pain, chest pain at rest, chest pain with activity, irregular heart rhythm, edema, shortness of breath when lying down, palpitations, murmur or other Resp Respiratory: Positive as per HPI, wheezing, cough cough: Positive non-productive and inhalers; negative shortness of breath, pain with cough, chest congestion, chest tightness, pain on inspiration, increase use of rescue inhalers, snoring, apnea or other Gastro Gastrointestional: Negative bloody stools, change in appetite, difficulty swallowing, reflux, hematemesis, melena stool, loose stool, constipation or other Genitourinary: Negative blood in urine, nocturia, pain with urination or other Musc Musculoskeletal: Negative body pain, back pain, neck pain or other Skin/Breast Skin/Breast: Negative dry skin, itching, rash, unusual bruising, breast lump or other Neuro Neurological: Negative restless legs, confusion, weakness or other Psych Psychocological: Negative abnormal sleep pattern, anxiety, thoughts of hurting self/others, hopelessness or other Lymph Lymphatic: Negative easy bleeding, easy bruising, swollen lymph nodes or other Exam Const Constitutional: Positive conversant, cooperative, in no acute respiratory distress, healthy appearing, well developed, well nourished, good hygiene, appears older than stated age and obese Head Head: Positive normocephalic and atraumatic; negative cyanosis of lips/distal nose, frontal sinus tenderness or maxillary sinus tenderness Eyes Eye: Positive clear conjunctiva; negative nystagmus, scleral abnormality or cataract present Ears Ear: Positive hearing normal and external ears normal; negative hard of hearing Nose Nose: Positive external nose normal, septum normal and no nasal discharge; negative epistaxis or nasal polyp Mouth Mouth: Positive oral mucosae normal, no lesions, poor dentition and posterior oropharynx is adequate; negative post nasal drip, malodorous breath or oral thrush present Mallampati Score: II: Mallampati Score Neck Neck: Positive normal visual inspection, full ROM and trachea midline; negative lymphadenopathy or JVD Chest Wall Chest: Positive normal inspection of the chest and symmetric chest movement; negative crepitus or tenderness Resp lung sounds: Positive clear to auscultation, good air exchange, normal expiratory time and normal respiratory effort; negative wheezes, rhonchi, rales, use of accessory muscles, wheeze present on forced exhalation or dullness to percussion Cardio Cardiac: Positive regular rate, S1 normal, regular rhythm and S2 normal; negative murmur, rub or gallop GI GI: Positive normal to inspection, normal bowel sounds and obese; negative distended, ascites or epigastric tenderness Genitourinary: Positive deferred Musc Musculoskeletal: Positive steady gait; negative using an assistive device for ambulation, kyphosis or scoliosis Skin Pulmonary Skin Exam: Positive intact; negative rash, lesion, ulcers, erythema or dermal atrophy Pulses Pulse: Yes radial pulses present Extremities Extremities: Yes capillary refill normal, No clubbing, No cyanosis, No edema Neuro Neurologic: Yes conversant, Yes no focal neuro deficits, Yes normal concentration, Yes understands questions, Yes cooperative, Yes normal cognition, Yes normal coordination Lymph Lymphatic: No lymphadenopathy Psych Appearance: Positive disheveled; negative grossly normal or eye contact Mental Status: Positive other (Manic) Mood: Positive paranoid and manic mood Affect: Positive blunted and anxious affect Coding Level of Care Code Off vis,new,level 3 Diagnoses Moderate persistent asthma without complication J45.40 Asthma severity: moderate Asthma persistence: persistent Asthma complication type: uncomplicated 07/12/18 1411 <Electronically signed by Hans Ramos MD> Date Hans Ramos MD Cosigner Signature: Date (if applicable) CC: [facility] EMERGENCY DEPARTMENT Observed: 06/19/2018 Status: F Source: [place] SUMMARY 2:41 PM [facility] REPOSITORY [facility] Medical Records Department [address] [place] [address] Emergency Department Summary 06/19/18 0726 MR#: [id number] Acct: [id number] Name: ANGELICA ANDUJAR Rep #: [id number] : 1980 37 From: Blue Garcia MD PCP: SAMANTHA BEJARANO Status: REG ER - ER Visit Summary Date of Service: 06/19/18 Chief Complaint: Paranoia, insomnia History of Present Illness: The patient is a 37 F who states that she has been feeling paranoid over the past 3 months. She states that when I wake up in the morning and I put something in my hand I feel like I am not using it for its exact purpose. When asked her to clarify this for me she was unable to. She states that she was telling this to the counseling center staff on the phone and they told her to come in to get evaluated. She states that she has no suicidal ideation at this time but feels like if I am at home I could hurt myself. She says she does feel anxious. According to her records, the patient has been here multiple times this month for a variety of complaints including anxiety and insomnia. Physical Examination: Vital signs reviewed. HEENT exam unremarkable. Heart is regular rate and rhythm without murmurs. Lungs are clear to auscultation. Abdomen is soft and nontender. Extremities reveal no edema. Skin exam normal. Neurologic exam normal. The patient is a flat affect. She does voice some paranoid ideation. She has had some passive suicidal thoughts, but does not have any currently. She has poor judgment. She does not appear to be internally stimulated. Test Results: [] Emergency Department Course and Treatment: At this point, the patient does not voice any suicidal thoughts. Therefore, I do not feel she needs 1:1 close observation at this time. Screening labs were negative. Tox and alcohol are negative. Patient was evaluated by crisis and they feel she needs transfer to a facility. We are awaiting acceptance from a psychiatric facility. Treatment Plan: [] Disposition: Transfer Impression: Acute psychosis This note was generated with Bedloo dictation software. It may contain incorrect words, spelling, and punctuation that were not noted in review of the chart prior to signing ED Disposition - Plan for ED Patient: Chief Complaint: Mental Health Referrals: Samantha Shields [Primary Care Provider] - What to do if you have Problems For any increased pain, shortness of breath, bleeding, nausea or vomiting, chest pain, or any unexpected problems, contact your Primary Care Provider. Call [facility] ([phone]) or report to the closest Emergency Room. Call 911 if necessary. 06/19/18 1441 <Electronically signed by Blue Garcia MD> Date Blue Garcia MD Cosigner Signature (If Indicated): Date CC: [facility] CBC W/DIFF, AUTOMATED Collected: 06/19/2018 Status: F Source: [place] 8:35 AM [facility] REPOSITORY TYPE CODE TESTS RESULT OUT OF RANGE REFERENCE UNITS LAB L100.1000 4.4-11.0 K/mm3 Normal WBC 7.2 LAB L100.1200 4.2-5.4 M/mm3 Normal RBC 5.06 LAB L100.1300 12.0-15.0 g/dl Normal HGB 14.4 LAB L100.1400 37-47 % Normal HCT 43.4 LAB L100.1500 81-99 fL Normal MCV 85.8 LAB L100.1600 27.0-32.0 pg Normal MCH 28.5 LAB L100.1700 32-36 g/gl Normal MCHC 33.2 LAB L100.1810 11.6-14.6 % Normal RDW CV 13.2 LAB L100.1820 35.1-43.9 fl Normal RDW SD 41.0 LAB L100.1900 150-450 K/mm3 Normal PLT 219 LAB L100.2000 6.2-12.0 fl Normal MPV 11.2 LAB L100.2100 47-70 % Normal NEUT% 67.2 LAB L100.2200 19-41 % Normal LY% 23.0 LAB L100.2300 0-10 % Normal MONO% 7.7 LAB L100.2400 0-5 % Normal EO% 1.7 LAB L100.2500 0-1 % Normal BASO% 0.3 LAB L100.2550 0.0-0.9 % Normal IM GRAN % 0.100 Result Comment: IG% - Immature Granulocytes (promyelocytes, myelocytes and metamyelocytes) > 1% indicates that a LEFT SHIFT is Present. LAB L100.2620 2.0-7.7 X10 3/uL Normal Absolute Neut 4.8 LAB L100.2720 0.83-4.51 X10 3/ul Normal Absolute Lymph 1.65 Performed By: #### L100.0100 #### [facility] [address] [facility]. [place], [place], [id number] BASIC METABOLIC Collected: 06/19/2018 Status: F Source: [place] PROFILE (BMP) 8:35 AM [facility] REPOSITORY TYPE CODE TESTS RESULT OUT OF RANGE REFERENCE UNITS LAB L501.0100 74-106 mg/dL Normal GLU 86 Result Comment: Please note revised GLUCOSE reference range effective 2017. LAB L501.1000 7-18 mg/dL Normal BUN 12 LAB L501.1100 0.55-1.02 mg/dL Normal CREAT,SERUM 0.80 Result Comment: The validity of the calculated GFR AND GFRAA in patients over 70 years has not been determined. Clinical correlation is essential. LAB L501.1110 >60 mL/min Normal EST GFR 85 Result Comment: Non- GFR Calc LAB L501.1115 >60 mL/min Normal EST GFR - AA 103 Result Comment: GFR Calc LAB L501.1255 ml/min Normal Estimated CRCL 91.81 LAB L501.1300 10-20 RATIO Normal BUN/CRE 15.0 LAB L501.2200 8.5-10 mg/dL Normal .1 CA 8.9 LAB L501.5300 136-14 mmol/L Normal 5 NA 139 LAB L501.5600 3.5-5. mmol/L Normal 1 K 3.8 LAB L501.5900 98-107 mmol/L Normal CL 105 LAB L501.6100 21.0-3 mmol/L Normal 2.0 CO2 26.0 LAB L501.6200 5-15 Normal GAP 8 Performed By: #### L500.2500 #### [facility] [address] [facility] [place], [address] ,SERUM,HCG QUALI. Collected: Status: F Source: [place] 06/19/2018 8:35 AM [facility] REPOSITORY TYPE CODE TESTS RESULT OUT OF REFERENCE UNITS RANGE LAB L700.6700 =>Qualitative mIU/mL Normal HCG Qual < 1 triggr LAB L700.7000 0-9 Nonpreg Negative Normal HCGSQUAL NEGATIVE Performed By: #### L700.6800 #### [facility] [address] [facility] [place], [address] ALCOHOL, BLOOD Collected: 06/19/2018 Status: F Source: [place] (MEDICAL)-SERUM 8:35 AM [facility] REPOSITORY TYPE CODE TESTS RESULT OUT OF RANGE REFERENCE UNITS LAB L501.9100 mg/dL Normal SERUM < 3.0 ETOH Result Comment: The serum:whole blood ethanol ratio is approximately 1.14 and varies slightly with hematocrit. Medical Alcohol reference interval and critical value in non-tolerant individuals; 50 - 100 Impairment 100 Intoxication 100 - 250 Severe Poisoning 250 - 400 Deep/possible fatal coma Performed By: #### L501.9100 #### [facility] [address] [facility] [facility] [place], [address] URINE DRUG SCREEN Collected: 06/19/2018 Status: F Source: [place] (VISTA) 8:08 AM [facility] REPOSITORY TYPE CODE TESTS RESULT OUT OF RANGE REFERENCE UNITS LAB L505.0075 TO BE Normal CONFIRMED Result Comment: CONFIRMATORY TESTING FOR ALL POSITIVE URINE DRUG SCREEN RESULTS WILL ONLY BE SENT OUT UPON PHYSICIAN ORDER. VISTA Urine Drug Screen methods provide only preliminary analytical test results. A more specific alternate chemical method must be used in order to obtain a confirmed analytical result. Gas chromatography/mass spectrometery (GC/MS) is the preferred confirmatory method. Clinical consideration and professional judgement should be applied to any drug of abuse test result, particularly when preliminary positive results are used. URINE TCA TESTING MUST BE ORDERED SEPARATELY. USE TEST MNEMONIC: [facility] LAB L505.5005 VISTA UDS PH 5 Normal LAB L505.5015 <1000 ng/mL AMPHETAMINES Normal NEGATIVE LAB L505.5025 < 200 ng/mL BARBITIURATES Normal NEGATIVE LAB L505.5035 < 200 ng/mL BENZODIAZIPINE Normal NEGATIVE LAB L505.5045 < 300 ng/mL COCAINE Normal NEGATIVE LAB L505.5055 < 500 ng/mL ECSTACY Normal NEGATIVE LAB L505.5065 < 300 ng/mL METHADONE Normal NEGATIVE LAB L505.5075 < 300 ng/mL OPIATES Normal NEGATIVE LAB L505.5085 < 25 ng/mL PCP Normal NEGATIVE LAB L505.5095 < 50 ng/mL THC Normal NEGATIVE Performed By: #### L505.5000 #### [facility] [address] [place], [address] EMERGENCY DEPARTMENT Observed: 06/18/2018 Status: F Source: [place] SUMMARY 3:20 PM [facility] REPOSITORY [facility] Medical Records Department [address] [place] [address] Emergency Department Summary 06/17/18 1634 MR#: [id number] Acct: [id number] Name: ANGELICA ANDUJAR Rep #: [id number] : 1980 37 From: Ganga Chambers DO PCP: [facility]THA [facility] Status: DEP ER - ER Visit Summary Date of Service: 06/17/18 Chief Complaint: [] History of Present Illness: The patient is a 37 F [anxiety presents the emergency department complaint of. 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 Patient currently on no medications for anxiety. Patient used to be on Lexapro but has been off of it for about 4 months because she did not like the way it made her feel. Patient states she has been more irritable and has had off-and-on headaches and has been hungry and thirsty for about 3 months. Patient denies feeling suicidal. Patient denies feeling homicidal. She denies any hallucinations.] Physical Examination: [HEENT-PERRLA, EOMI. Cranial nerves II through XII grossly intact. TMs clear. Mucous membranes moist. No adenopathy. Cardiovascular-regular rate and rhythm without murmur or ectopy Lungs-clear to auscultation, chest wall stable without crepitus or subcu emphysema Abdomen-normoactive bowel sounds, soft, nontender, no rebound or rigidity, no peritoneal signs. Extremities-intact 4, normal range of motion, normal pulses, atraumatic] Test Results: [CBC with differential is normal. Chemistries were normal. Toxicology screen was negative. Alcohol was negative.] Emergency Department Course and Treatment: [Patient was seen by crisis at her request. Patient is not suicidal and does not meet any type of admission criteria. Patient refused Ativan in the emergency department. ] Treatment Plan: [Patient will be given a prescription for Vistaril] Disposition: [Discharged home in stable condition] Impression: [Anxiety Depression] This note was generated with ImpactMediaation software. It may contain incorrect words, spelling, and punctuation that were not noted in review of the chart prior to signing ED Disposition - Plan for ED Patient: Chief Complaint: Anxiety Referrals: Samantha Shields [Primary Care Provider] - What to do if you have Problems For any increased pain, shortness of breath, bleeding, nausea or vomiting, chest pain, or any unexpected problems, contact your Primary Care Provider. Call [facility] ([phone]) or report to the closest Emergency Room. Call 911 if necessary. 06/18/18 1520 <Electronically signed by Ganga Chambers DO> Date Ganga Chambers DO Cosigner Signature (If Indicated): Date CC: [facility] DISCHARGE INSTRUCTION Observed: 06/17/2018 Status: F Source: [place] 7:43 PM [facility] REPOSITORY [facility] Medical Records Department [address] [place] [address] Discharge Instruction 06/17/181941 MR#: [id number] Acct: [id number] Name: ANGELICA ANDUJAR Rep #: [id number] : 1980 37 From: Ganga Chambers DO PCP: SAMANTHA BEJARANO Status: REG ER ED Disposition - Plan for ED Patient: Chief Complaint: Anxiety Instructions: ED Stress React, ED Depression, Treating Insomnia Prescriptions: Hydroxyzine Pamoate [Vistaril] 50 mg PO TID PRN PRN #20 cap PRN Reason: Anxiety Referrals: Samantha Shields [Primary Care Provider] - 3-5 Days What to do if you have Problems For any increased pain, shortness of breath, bleeding, nausea or vomiting, chest pain, or any unexpected problems, contact your Primary Care Provider. Call [facility] ([phone]) or report to the closest Emergency Room. Call 911 if necessary. 06/17/181942 <Electronically signed by Ganga Chambers DO> Date Ganga Chambers DO Cosigner Signature (If Indicated): Date CC: [facility] DISCHARGE INSTRUCTION Observed: 06/17/2018 Status: F Source: [place] 7:42 PM [facility] REPOSITORY [facility] Medical Records Department [address] [place] [address] Discharge Instruction 06/17/181940 MR#: [id number] Acct: [id number] Name: ANGELICA ANDUJAR C Rep #: [id number] : 1980 37 From: Ganga Chambers DO PCP: [facility]THA [facility] Status: REG ER ED Disposition - Plan for ED Patient: Chief Complaint: Anxiety Instructions: ED Stress React, ED Depression Prescriptions: Hydroxyzine Pamoate [Vistaril] 50 mg PO TID PRN PRN #20 cap PRN Reason: Anxiety Referrals: Katharina Bejarano,Samantha Hood [Primary Care Provider] - 3-5 Days What to do if you have Problems For any increased pain, shortness of breath, bleeding, nausea or vomiting, chest pain, or any unexpected problems, contact your Primary Care Provider. Call [facility] ([phone]) or report to the closest Emergency Room. Call 911 if necessary. 06/17/181941 <Electronically signed by Ganga Chambers DO> Date Ganga Chambers DO Cosigner Signature (If Indicated): Date CC: [facility] Observed: 06/17/2018 Status: F Source: [place] SUMMARY 6:21 PM [facility] REPOSITORY [facility] Medical Records Department [address] [place] [address] Emergency Department Summary 06/17/18 0947 MR#: [id number] Acct: [id number] Name: ANGELICA ANDUJAR Rep #: [id number] : 1980 37 From: Kasandra Cooper MD [facility] Status: DEP ER - ER Visit Summary Date of Service: 06/17/18 Chief Complaint: Insomnia and abdominal pain History of Present Illness: The patient is a 37 F who presents for 24 hours of insomnia and abdominal pain today. Patient states her chief complaint is the insomnia. She has not slept since yesterday morning at 7:30 AM. She has had some stress in her life and thinks this is contributing. She did not try any medications to help with sleep that she does not like to take medicine. She is also complaining of abdominal pain for the last several hours, and has had 4-6 normal to loose bowel movements. No overt diarrhea, nausea, vomiting. Abdominal pain is mid to lower. She denies . She is having dysuria and frequency. History of anxiety. Patient denies any medication use. Patient states she drinks hand soap around midnight last night. She was washing her hands and was thirsty, so she used her hands to cup water under the faucet and drank it. She states she tasted soap in her mouth. She is concerned that she has ingested the liquid soap. She denies intentionally drinking straight out of the bottle. Physical Examination: Vital signs: afebrile, hemodynamically stable, no hypoxia on room air General: well nourished, well developed, in no distress Skin: warm, dry, no rash, no pallor HEENT: normocephalic and atraumatic; PERRL, EOMI, moist mucous membranes, oropharynx is clear without lesions Cardiovascular: regular rate and rhythm without murmurs, no peripheral edema, 2+ pulses all distal extremities Respiratory: No increased work of breathing, lungs are clear to auscultation bilaterally, no rales, rhonchi or wheezing Abdominal: Abdomen is soft, nontender to deep palpation with normoactive bowel sounds, no guarding or rebound, no masses MSK: Moves all extremities, no deformities, normal strength Neuro: Awake and alert, oriented 4. No facial droop, sensation and motor function intact and symmetric Test Results: Abnormal Lab Results Urine Color Yellow Urine Clarity Clear Urine pH 6.0 Ur Specific Cotton 1.015 Emergency Department Course and Treatment: Patient's complaint of drinking hand soap is actually her drinking water out of freshly wash hands, and does not sound consistent with actual ingestion of hand soap. Patient was reassured that this is not dangerous. We discussed her insomnia, and I recommended she try Benadryl or another dddk-vmz-klouoau antihistamine. She stated that she did not like taking medications and thus did not want to try them. Urine was checked given the patient is complaining of lower abdominal pain and urinary symptoms. It was negative for infection. Patient was instructed to follow- up with her primary care doctor regarding the insomnia, especially if she does not want to take any medications, prescription or otherwise. Prior to discharge, patient began complaining that she has recently had a headache and neck pain, with a being the worst headache of her life yesterday but currently resolved. I encouraged patient to follow-up with her doctor regarding this, and that no further workup was necessary at this time as she is currently not having a headache or neck pain. Patient also was informed she can return to the emergency department immediately if she has the worst headache of her life. Discharged home. Treatment Plan: [] Disposition: [] Impression: Insomnia, nonspecific abdominal pain, multiple unrelated complaints This note was generated with Bedloo dictation software. It may contain incorrect words, spelling, and punctuation that were not noted in review of the chart prior to signing ED Disposition - Plan for ED Patient: Disposition: Home or Assisted Living Chief Complaint: Abd Pain Instructions: ED Abdominal Pain Unkn Cause, ED Insomnia Referrals: Samantha Shields [Primary Care Provider] - As soon as possible Additional Instructions: Please follow-up with your doctor within the week to discuss your multiple complaints. Your urine was negative for infection. Please discuss your recurring neck pain and headaches with your doctor. Use jogx-upo-peztrim pain medication as needed for aches and pains. You may try Benadryl to help you sleep. If you have any worsening of your condition or any new concerning symptoms, please return immediately to the emergency department for another evaluation. What to do if you have Problems For any increased pain, shortness of breath, bleeding, nausea or vomiting, chest pain, or any unexpected problems, contact your Primary Care Provider. Call [facility] ([phone]) or report to the closest Emergency Room. Call 911 if necessary. 06/17/18 1821 <Electronically signed by Kasandra Cooper MD> Date Kasandra Cooper MD Cosigner Signature (If Indicated): Date CC: SAMANTHA BEJARANO DISCHARGE INSTRUCTION Observed: 06/17/2018 Status: F Source: [place] 5:52 PM [facility] REPOSITORY [facility] Medical Records Department [address] [place] [address] Discharge Instruction 06/17/18 1146 MR#: [id number] Acct: [id number] Name: ANGELICA ANDUJAR C Rep #: [id number] : 1980 37 From: Kasandra Cooper MD PCP: SAMANTHA BEJARANO Status: DEP ER ED Disposition - Plan for ED Patient: Disposition: Home or Assisted Living Chief Complaint: Abd Pain Instructions: ED Abdominal Pain Unkn Cause, ED Insomnia Referrals: Samantha Shields [Primary Care Provider] - As soon as possible Additional Instructions: Please follow-up with your doctor within the week to discuss your multiple complaints. Your urine was negative for infection. Please discuss your recurring neck pain and headaches with your doctor. Use [id number]-qznmxvh pain medication as needed for aches and pains. You may try Benadryl to help you sleep. If you have any worsening of your condition or any new concerning symptoms, please return immediately to the emergency department for another evaluation. What to do if you have Problems For any increased pain, shortness of breath, bleeding, nausea or vomiting, chest pain, or any unexpected problems, contact your Primary Care Provider. Call [facility] ([phone]) or report to the closest Emergency Room. Call 911 if necessary. 06/17/18 1752 <Electronically signed by Kasandra Cooper MD> Date Kasandra Cooper MD Cosigner Signature (If Indicated): Date CC: [facility] CBC W/DIFF, AUTOMATED Collected: 06/17/2018 Status: F Source: [place] 5:30 PM [facility] REPOSITORY TYPE CODE TESTS RESULT OUT OF RANGE REFERENCE UNITS LAB L100.1000 4.4-11.0 K/mm3 Normal WBC 8.6 LAB L100.1200 4.2-5.4 M/mm3 Normal RBC 5.01 LAB L100.1300 12.0-15.0 g/dl Normal HGB 14.3 LAB L100.1400 37-47 % Normal HCT 42.9 LAB L100.1500 81-99 fL Normal MCV 85.6 LAB L100.1600 27.0-32.0 pg Normal MCH 28.5 LAB L100.1700 32-36 g/gl Normal MCHC 33.3 LAB L100.1810 11.6-14.6 % Normal RDW CV 13.1 LAB L100.1820 35.1-43.9 fl Normal RDW SD 41.2 LAB L100.1900 150-450 K/mm3 Normal PLT 231 LAB L100.2000 6.2-12.0 fl Normal MPV 11.2 LAB L100.2100 47-70 % Normal NEUT% 66.3 LAB L100.2200 19-41 % Normal LY% 25.1 LAB L100.2300 0-10 % Normal MONO% 7.1 LAB L100.2400 0-5 % Normal EO% 1.3 LAB L100.2500 0-1 % Normal BASO% 0.1 LAB L100.2550 0.0-0.9 % Normal IM GRAN % 0.100 Result Comment: IG% - Immature Granulocytes (promyelocytes, myelocytes and metamyelocytes) > 1% indicates that a LEFT SHIFT is Present. LAB L100.2620 2.0-7.7 X10 3/uL Normal Absolute Neut 5.7 LAB L100.2720 0.83-4.51 X10 3/ul Normal Absolute Lymph 2.16 Performed By: #### L100.0100 #### [facility] [address] [place], [place], [address] BASIC METABOLIC Collected: 06/17/2018 Status: F Source: [place] PROFILE (BMP) 5:30 PM [facility] REPOSITORY TYPE CODE TESTS RESULT OUT OF RANGE REFERENCE UNITS LAB L501.0100 74-106 mg/dL Normal GLU 84 Result Comment: Please note revised GLUCOSE reference range effective 2017. LAB L501.1000 7-18 mg/dL Normal BUN 10 LAB L501.1100 0.55-1.02 mg/dL Normal CREAT,SERUM 0.78 Result Comment: The validity of the calculated GFR AND GFRAA in patients over 70 years has not been determined. Clinical correlation is essential. LAB L501.1110 >60 mL/min Normal EST GFR 87 Result Comment: Non- GFR Calc LAB L501.1115 >60 mL/min Normal EST GFR - AA 105 Result Comment: GFR Calc LAB L501.1255 ml/min Normal Estimated CRCL 94.17 LAB L501.1300 10-20 RATIO Normal BUN/CRE 12.8 LAB L501.2200 8.5-10 mg/dL Normal .1 CA 9.0 LAB L501.5300 136-14 mmol/L Normal 5 NA 140 LAB L501.5600 3.5-5. mmol/L Normal 1 K 3.6 LAB L501.5900 98-107 mmol/L High CL 108 LAB L501.6100 21.0-3 mmol/L Normal 2.0 CO2 26.0 LAB L501.6200 5-15 Normal GAP 6 Performed By: #### L500.2500 #### [facility] [address] [place], [address] ALCOHOL, BLOOD Collected: 06/17/2018 Status: F Source: LANI (MEDICAL)-SERUM 5:30 PM [facility] REPOSITORY TYPE CODE TESTS RESULT OUT OF RANGE REFERENCE UNITS LAB L501.9100 mg/dL Normal SERUM < 3.0 ETOH Result Comment: The serum:whole blood ethanol ratio is approximately 1.14 and varies slightly with hematocrit. Medical Alcohol reference interval and critical value in non-tolerant individuals; 50 - 100 Impairment 100 Intoxication 100 - 250 Severe Poisoning 250 - 400 Deep/possible fatal coma Performed By: #### L501.9100 #### [facility] [address] [place], [address] ,SERUM,HCG QUALI. Collected: Status: F Source: [place] 06/17/2018 5:30 PM [facility] REPOSITORY TYPE CODE TESTS RESULT OUT OF REFERENCE UNITS RANGE LAB L700.6700 =>Qualitative mIU/mL Normal HCG Qual < 1 triggr LAB L700.7000 0-9 Nonpreg Negative Normal HCGSQUAL NEGATIVE Performed By: #### L700.6800 #### [facility] [address] [place], [address] URINE DRUG SCREEN Collected: 06/17/2018 Status: F Source: LANI (VISTA) 5:00 PM [facility] REPOSITORY TYPE CODE TESTS RESULT OUT OF RANGE REFERENCE UNITS LAB L505.0075 TO BE Normal CONFIRMED Result Comment: CONFIRMATORY TESTING FOR ALL POSITIVE URINE DRUG SCREEN RESULTS WILL ONLY BE SENT OUT UPON PHYSICIAN ORDER. VISTA Urine Drug Screen methods provide only preliminary analytical test results. A more specific alternate chemical method must be used in order to obtain a confirmed analytical result. Gas chromatography/mass spectrometery (GC/MS) is the preferred confirmatory method. Clinical consideration and professional judgement should be applied to any drug of abuse test result, particularly when preliminary positive results are used. URINE TCA TESTING MUST BE ORDERED SEPARATELY. USE TEST MNEMONIC: [facility] LAB L505.5005 VISTA UDS PH 6 Normal LAB L505.5015 <1000 ng/mL AMPHETAMINES Normal NEGATIVE LAB L505.5025 < 200 ng/mL BARBITIURATES Normal NEGATIVE LAB L505.5035 < 200 ng/mL BENZODIAZIPINE Normal NEGATIVE LAB L505.5045 < 300 ng/mL COCAINE Normal NEGATIVE LAB L505.5055 < 500 ng/mL ECSTACY Normal NEGATIVE LAB L505.5065 < 300 ng/mL METHADONE Normal NEGATIVE LAB L505.5075 < 300 ng/mL OPIATES Normal NEGATIVE LAB L505.5085 < 25 ng/mL PCP Normal NEGATIVE LAB L505.5095 < 50 ng/mL THC Normal NEGATIVE Performed By: #### L505.5000 #### [facility] [address] [place], [place], [address] URINALYSIS, COMPLETE Collected: 06/17/2018 Status: F Source: [place] 9:55 AM [facility] REPOSITORY Order Comment: Order Date: 06/17/18 Has pt arrived? Y Order Date: 06/17/18 Has pt arrived? Y How was Urine Obtained? DOOR CLOSER TO SPECIFY TYPE CODE TESTS RESULT OUT OF RANGE REFERENCE UNITS LAB L400.3000 Yellow COLOR Normal Yellow LAB L400.3050 Clear Normal CLARITY Clear LAB L400.3200 Normal mg/dl Normal GLUCOSE, UR Normal LAB L400.3300 Negative mg/dL Normal BILIRUBIN URINE Negative LAB L400.3400 Negative mg/dl Normal KETONE UR Negative LAB L400.3465 1.002-1.030 Normal SP.GR. DIPSTX 1.015 LAB L400.3550 5.0 - 8.0 pH UR Normal 6.0 LAB L400.3600 Negative mg/dl PROT Normal DIPSTX Negative LAB L400.3700 Normal mg/dl Normal UROBILI Normal LAB L400.3750 Negative Normal NITRITE UR Negative LAB L400.3780 Negative /ul High 10 OCCULT BLOOD-UR LAB L400.3800 Negative /ul LEUK Normal ESTERASE Negative LAB L400.4050 0-5 /hpf WBC 0 Normal SEEN LAB L400.4100 0-5 /hpf 0 Normal RBC-UA SEEN LAB L400.4150 5-10 /hpf SQUAM Normal EPI 0-5 SEEN LAB L400.4300 None Seen /hpf Normal BACTERIA RARE LAB L400.4350 <or=2+ /hpf 0 Normal MUCUS, URINE SEEN Performed By: #### L400.0001, L400.7600 #### [facility] [address] [place], [address] ,URINE Collected: 06/17/2018 Status: F Source: [place] 9:55 AM [facility] REPOSITORY Order Comment: Order Date: 06/17/18 Has pt arrived? Y Order Date: 06/17/18 Has pt arrived? Y How was Urine Obtained? DOOR CLOSER TO SPECIFY TYPE CODE TESTS RESULT OUT OF REFERENCE UNITS RANGE LAB L400.8000 Negative Normal HCGUQUAL Negative Result Comment: Very dilute urine specimens, as indicated by a low specific gravity, may not contain credit and collections representative levels of hCG. If is still suspected, a first morning urine specimen should be collected 48 hours later and tested. Performed By: #### L400.0001, L400.7600 #### [facility] [address] [place], [address] Observed: 06/17/2018 Status: F Source: LANI CULTURE, URINE 9:55 AM [facility] REPOSITORY Order Date: 06/17/18 Has pt arrived? Y Urine Culture Culture exhibits no growth. Performed By: #### M100.0650 #### [facility] [address] [place], [address] 12 LEAD ELECTROCARDIOGRAM Observed: 06/15/2018 Status: F Source: LANI 1:36 PM [facility] REPOSITORY [facility] Cardiovascular Services [address] [place] [address] 12 Lead EKG 06/12/18 2143 MR#: [id number] Acct: [id number] Name: ANGELICA ANDUJAR Rep #: [id number] : 1980 37 From: Duncan Rubi MD Attending Dr: Status: DEP ER Ordering Dr: Ganga Chambers DO Date: 06/12/18 Location: ED Sex: F C Admitted: Test Reason : CP Blood Pressure : / mmHG Vent. Rate : 077 BPM Atrial Rate : 077 BPM P-R Int : 162 ms QRS Dur : 076 ms QT Int : 382 ms P-R-T Axes : 065 039 022 degrees QTc Int : 432 ms Normal sinus rhythm Normal ECG Confirmed by CORY KHAN, DUNACN ([id number]), editor & co founder МАРИНА BRAR ([id number]) on 06/15/2018 1:36:03 PM Referred By: JESIKA Confirmed By:DUNCAN RUBI MD 06/15/18 1334 Date Duncan Rubi MD CC: Ganga Chambers DO; SAMANTHA HOOD [facility] Signed Observed: 06/14/2018 Status: F Source: [place] THROAT CULT/ROUTINE 2:30 PM [facility] REPOSITORY Sp. Request/Comment: - Swab Culture Result - No beta hemolytic streptococci isolated. Performed By: #### THRCUL #### [facility] [address] [place], [place] [address] PROGRESS Observed: 06/14/2018 Status: COMPLETED Source: [place] 1:01 PM [facility] REPOSITORY HNO ID: [id number] Author: Chayito Huffman) Podlogar Service: (none) Author Type: Nurse Practitioner Type: Progress Notes Filed: 06/14/2018 2:31 PM Note Text: 06/14/2018 Patient presents with: Sinus Problem: 6 days now,, chills no fever .Fatigue. headaches and pressure. SUBJECTIVE: This is a 37 year old that is here today for Above Complaints. Seen in on 06/10/2018 for fatigue and again on 06/12/2018 for nasal congestion was instructed to continue Flonase and restart Claritin. Returns to office today for six days of fatigue, chills, headaches, sinus pressure, cough, nasal congestion with green boogers, and nausea.Denies known sick contacts, skin rashes, weight loss, fevers, headaches, ear pain, SOB, dyspnea, wheezing, chest pain, palpitations, abdominal pain, vomiting or diarrhea. Has used Flonase, humidifier, warm and cold compresses, motrin, and tyelonl with minimal relief. Has not restarted Claritin as recommended. PAST MEDICAL HISTORY Diagnosis Date - 11/2009 - Anxiety - Asthma - Depression - Recurrent UTI - Seasonal allergies - STD (sexually transmitted disease) ALLERGIES Anti-Bacterial Cleansing [Benzethonium Chloride]; Bees; Benzalkonium Chloride; Clindamycin; Doxycycline; Dust Mites; Flagyl [Metronidazole Hcl]; Hand Loan Servicing Officer [Ethyl Alcohol (Skin Cleanser)]; Iodine; Lactose Intolerance [Lactase]; Latex, Natural Rubber; Nisqually; Meloxicam; Metronidazole; Mold; Morphine; Penicillin; Pet Dander [Other]; Prednisone; Seasonal Allergies; Singulair [Montelukast]; Sodium Lauryl Sulfate; Trees; Zofran [Ondansetron Hcl (Pf)] MEDICATIONS Current Outpatient Prescriptions: acetaminophen (TYLENOL ORAL) Take 325 mg by mouth. nystatin (MYCOSTATIN) cream Apply 1 application to affected area twice daily. triamcinolone acetonide (KENALOG) 0.1 % cream Apply 1 application to affected area three times daily. Apply sparingly to area for rash/itching. lactobacillus rhamnosus (CULTURELLE) 10 billion cell capsule Take 1 capsule by mouth once daily. (Patient not taking: Reported on 04/11/2018 ) methylcellulose, with sugar, (CITRUCEL, SUCROSE,) oral powder Mix 1 heaping teaspoon into 8 ox of water and take by mouth once a day (Patient not taking: Reported on 04/08/2018 ) naproxen (NAPROSYN) 500 mg tablet Take 1 tablet by mouth twice daily with meals. FOR PAIN. TAKE WITH FOOD. (Patient not taking: Reported on 04/08/2018 ) folic acid 400 mcg tablet Take 400 mcg by mouth once daily. benzonatate (TESSALON PERLE) 100 mg capsule Take 1 capsule by mouth every 8 hours as needed for Cough. (Patient not taking: Reported on 03/16/2018 ) albuterol HFA (PROAIR HFA) 90 mcg/actuation inhaler Inhale 2 Puffs as instructed every 4 hours as needed for Wheezing/Shortness of Breath. CALCIUM CARBONATE/VITAMIN D3 (VITAMIN D-3 ORAL) Take by mouth. VITAMIN D-3 2,000 unit cap beclomethasone (QVAR) 80 mcg/actuation inhaler Inhale 2 Puffs as instructed twice daily. famotidine (PEPCID) 20 mg tablet Take 1 tablet by mouth at bedtime as needed. naproxen (NAPROSYN) 500 mg tablet Take 1 tablet by mouth twice daily as needed (for pain/inflammation). Take with food. (Patient not taking: Reported on 04/08/2018 ) ketotifen fumarate (ZADITOR) 0.025 % (0.035 %) ophthalmic solution Use 1 Drop in both eyes twice daily. As needed. (Patient not taking: Reported on 04/08/2018 ) escitalopram oxalate (LEXAPRO) 20 mg tablet Take 1 tablet by mouth once daily. (Patient not taking: Reported on 03/16/2018 ) fluticasone (FLONASE) 50 mcg/actuation nasal spray Use 2 Sprays in each nostril once daily. loratadine (CLARITIN) 10 mg tablet Take 1 tablet by mouth once daily. Hydrocortisone Acetate 1 % crea Apply 1 application to affected area twice daily. (Patient not taking: Reported on 04/11/2018 ) Multivitamin capsule Take 1 capsule by mouth once daily. No current facility-administered medications for this visit. Medications and allergies reviewed by this provider. SOCIAL HISTORY Social History Marital status: Single Spouse name: Years of education: GED Number of children: 0 Occupational History Occupation Employer Comment Unemployed Social History Main Topics Smoking status: Former Smoker Packs/day: 0.00 Years: 3.00 Types: Cigarettes Quit date: 03/03/2018 Smokeless tobacco: Never Used Comment: 2 weeks no cigarettes Alcohol use: Yes Comment: Seldom Drug use: No Sexual activity: Yes Partners with: Male control/protection: None REVIEW OF SYSTEMS All other reviewed and negative other than HPI. OBJECTIVE: BP 110/60 (BP Site: Right Arm, BP Position: Sitting, BP Cuff Size: Regular Adult) Pulse 74 Temp 37.1 ?C (98.8 ?F) Resp 18 Wt 84.4 kg (186 lb 0.6 oz) SpO2 97% BMI 29.14 kg/m? . Vital signs reviewed by this provider. APPEARANCE Well appearing, alert, in no acute distress, well-hydrated, well nourished. EARS External ears normal, canals clear NOSE/SINUS Nares normal. Septum midline. Mucosa reddened. Small area to left lateral nares of dried blood. No drainage or sinus tenderness., positive findings: sinus tenderness frontal bilateral, maxillary bilateral THROAT normal, no erythema NECK Supple, no adenopathy; thyroid symmetric, normal size, no bruits HEART RRR with normal S1 and S2, no murmurs, no gallops, no JVD appreciated LUNG clear to auscultation SKIN Skin color, texture, turgor normal, no suspicious rashes or lesions ASSESSMENT/PLAN: 1. Sore throat - ICD9: 462, ICD10: J02.9 (primary diagnosis) - suspect viral - Discussed supportive care treatment with fluids, rest and analgesia. - The patient may also use OTC cough and cold meds as needed, warm salt water gargles, throat lozenges and/or OTC throat spray as needed and nasal saline gtts and suction prn. - The patient should follow up in 3-5 days if symptoms persist or worsen - Call back if drooling, increased temperature, symptoms of dehydration and/or still sick in one week - RAPID STREP TEST B/O 2. Sinus pressure - ICD9: 478.19, ICD10: J34.89 - patient reports has Zithromax at home she was [facility]- - discussed watchful waiting for a couple more days before starting zihtromax - Supportive care with plenty of fluids, rest, and analgesia prn. - Follow up in 3-5 days if symptoms persist or worsen. 3. URI, acute - ICD9: 465.9, ICD10: J06.9 - Discussed viral etiology and rationale for treatment. - Rapid strep negative in office today - Symptomatic treatment with prn analgesia - Supportive care with fluids and rest - The patient may also use OTC cough and cold meds as needed, warm salt water gargles, throat lozenges and/or OTC throat spray as needed and nasal saline gtts and suction prn. - Follow up in 3-5 days if symptoms persist or sooner if worsening of symptoms Chayito Tan, LEGAL RECRUITER.MOBILE EQUIPMENT SERVICER Prescription instructions reviewed with patient as applicable. Patient advised if symptoms do not improve or if symptoms worsen sooner, to contact their primary care physician. Potential red flag symptoms discussed with the patient. Reviewed appropriate action plan to take if red flag symptoms occur. Patient agreeable to treatment plan. CNOV Observed: 06/14/2018 Status: COMPLETED Source: [place] 1:00 PM [facility] REPOSITORY Office Visit (FAMPWS) ANGELICA ANDUJAR ([id number]) 1980 F Date Time Provider Department 06/14/18 1:00 PM CHAYITO TAN CNP During your visit today, we recorded the following information about you: Temperature Pulse Respiration Blood pressure 98.8 degrees 74/minute 18/minute 110/60 Weight 84.4 kg Chayito Tan APRN.CNP 06/14/2018 2:31 PM Signed 06/14/2018 Patient presents with: Sinus Problem: 6 days now,, chills no fever .Fatigue. headaches and pressure. SUBJECTIVE: This is a 37 year old that is here today for Above Complaints. Seen in on 06/10/2018 for fatigue and again on 06/12/2018 for nasal congestion was instructed to continue Flonase and restart Claritin. Returns to office today for six days of fatigue, chills, headaches, sinus pressure, cough, nasal congestion with green boogers, and nausea.Denies known sick contacts, skin rashes, weight loss, fevers, headaches, ear pain, SOB, dyspnea, wheezing, chest pain, palpitations, abdominal pain, vomiting or diarrhea. Has used Flonase, humidifier, warm and cold compresses, motrin, and tyelonl with minimal relief. Has not restarted Claritin as recommended. PAST MEDICAL HISTORY Diagnosis Date - 11/2009 - Anxiety - Asthma - Depression - Recurrent UTI - Seasonal allergies - STD (sexually transmitted disease) ALLERGIES Anti-Bacterial Cleansing [Benzethonium Chloride]; Bees; Benzalkonium Chloride; Clindamycin; Doxycycline; Dust Mites; Flagyl [Metronidazole Hcl]; Hand Loan Servicing Officer [Ethyl Alcohol (Skin Cleanser)]; Iodine; Lactose Intolerance [Lactase]; Latex, Natural Rubber; Nisqually; Meloxicam; Metronidazole; Mold; Morphine; Penicillin; Pet Dander [Other]; Prednisone; Seasonal Allergies; Singulair [Montelukast]; Sodium Lauryl Sulfate; Trees; Zofran [Ondansetron Hcl (Pf)] MEDICATIONS Current Outpatient Prescriptions: acetaminophen (TYLENOL ORAL) Take 325 mg by mouth. nystatin (MYCOSTATIN) cream Apply 1 application to affected area twice daily. triamcinolone acetonide (KENALOG) 0.1 % cream Apply 1 application to affected area three times daily. Apply sparingly to area for rash/itching. lactobacillus rhamnosus (CULTURELLE) 10 billion cell capsule Take 1 capsule by mouth once daily. (Patient not taking: Reported on 04/11/2018 ) methylcellulose, with sugar, (CITRUCEL, SUCROSE,) oral powder Mix 1 heaping teaspoon into 8 ox of water and take by mouth once a day (Patient not taking: Reported on 04/08/2018 ) naproxen (NAPROSYN) 500 mg tablet Take 1 tablet by mouth twice daily with meals. FOR PAIN. TAKE WITH FOOD. (Patient not taking: Reported on 04/08/2018 ) folic acid 400 mcg tablet Take 400 mcg by mouth once daily. benzonatate (TESSALON PERLE) 100 mg capsule Take 1 capsule by mouth every 8 hours as needed for Cough. (Patient not taking: Reported on 03/16/2018 ) albuterol HFA (PROAIR HFA) 90 mcg/actuation inhaler Inhale 2 Puffs as instructed every 4 hours as needed for Wheezing/Shortness of Breath. CALCIUM CARBONATE/VITAMIN D3 (VITAMIN D-3 ORAL) Take by mouth. VITAMIN D-3 2,000 unit cap beclomethasone (QVAR) 80 mcg/actuation inhaler Inhale 2 Puffs as instructed twice daily. famotidine (PEPCID) 20 mg tablet Take 1 tablet by mouth at bedtime as needed. naproxen (NAPROSYN) 500 mg tablet Take 1 tablet by mouth twice daily as needed (for pain/inflammation). Take with food. (Patient not taking: Reported on 04/08/2018 ) ketotifen fumarate (ZADITOR) 0.025 % (0.035 %) ophthalmic solution Use 1 Drop in both eyes twice daily. As needed. (Patient not taking: Reported on 04/08/2018 ) escitalopram oxalate (LEXAPRO) 20 mg tablet Take 1 tablet by mouth once daily. (Patient not taking: Reported on 03/16/2018 ) fluticasone (FLONASE) 50 mcg/actuation nasal spray Use 2 Sprays in each nostril once daily. loratadine (CLARITIN) 10 mg tablet Take 1 tablet by mouth once daily. Hydrocortisone Acetate 1 % crea Apply 1 application to affected area twice daily. (Patient not taking: Reported on 04/11/2018 ) Multivitamin capsule Take 1 capsule by mouth once daily. No current facility-administered medications for this visit. Medications and allergies reviewed by this provider. SOCIAL HISTORY Social History Marital status: Single Spouse name: Years of education: GED Number of children: 0 Occupational History Occupation Employer Comment Unemployed Social History Main Topics Smoking status: Former Smoker Packs/day: 0.00 Years: 3.00 Types: Cigarettes Quit date: 03/03/2018 Smokeless tobacco: Never Used Comment: 2 weeks no cigarettes Alcohol use: Yes Comment: Seldom Drug use: No Sexual activity: Yes Partners with: Male control/protection: None REVIEW OF SYSTEMS All other reviewed and negative other than HPI. OBJECTIVE: BP 110/60 (BP Site: Right Arm, BP Position: Sitting, BP Cuff Size: Regular Adult) Pulse 74 Temp 37.1 ?C (98.8 ?F) Resp 18 Wt 84.4 kg (186 lb 0.6 oz) SpO2 97% BMI 29.14 kg/m? . Vital signs reviewed by this provider. APPEARANCE Well appearing, alert, in no acute distress, well- hydrated, well nourished. EARS External ears normal, canals clear NOSE/SINUS Nares normal. Septum midline. Mucosa reddened. Small area to left lateral nares of dried blood. No drainage or sinus tenderness., positive findings: sinus tenderness frontal bilateral, maxillary bilateral THROAT normal, no erythema NECK Supple, no adenopathy; thyroid symmetric, normal size, no bruits HEART RRR with normal S1 and S2, no murmurs, no gallops, no JVD appreciated LUNG clear to auscultation SKIN Skin color, texture, turgor normal, no suspicious rashes or lesions ASSESSMENT/PLAN: 1. Sore throat - ICD9: 462, ICD10: J02.9 (primary diagnosis) - suspect viral - Discussed supportive care treatment with fluids, rest and analgesia. - The patient may also use OTC cough and cold meds as needed, warm salt water gargles, throat lozenges and/or OTC throat spray as needed and nasal saline gtts and suction prn. - The patient should follow up in 3-5 days if symptoms persist or worsen - Call back if drooling, increased temperature, symptoms of dehydration and/or still sick in one week - RAPID STREP TEST B/O 2. Sinus pressure - ICD9: 478.19, ICD10: J34.89 - patient reports has Zithromax at home she was [facility]- - discussed watchful waiting for a couple more days before starting zihtromax - Supportive care with plenty of fluids, rest, and analgesia prn. - Follow up in 3-5 days if symptoms persist or worsen. 3. URI, acute - ICD9: 465.9, ICD10: J06.9 - Discussed viral etiology and rationale for treatment. - Rapid strep negative in office today - Symptomatic treatment with prn analgesia - Supportive care with fluids and rest - The patient may also use OTC cough and cold meds as needed, warm salt water gargles, throat lozenges and/or OTC throat spray as needed and nasal saline gtts and suction prn. - Follow up in 3-5 days if symptoms persist or sooner if worsening of symptoms Chayito Podlogar, LEGAL RECRUITER.MOBILE EQUIPMENT SERVICER Prescription instructions reviewed with patient as applicable. Patient advised if symptoms do not improve or if symptoms worsen sooner, to contact their primary care physician. Potential red flag symptoms discussed with the patient. Reviewed appropriate action plan to take if red flag symptoms occur. Patient agreeable to treatment plan. Chayito Cadelogronal, OSVALDO 06/14/2018 1:47 PM Signed If you develop fevers, vomiting, unable to keep fluids or food down, severe abdominal pain, or worst headache of your life. Referring Provider: SELF [[id number]] Allergies As of Date: 06/14/2018 Noted Allergy Reaction ANTI-BACTERIAL CLEANSING (BENZETH*10/26/2012 2 - Rash BEES 07/16/2010 16 - Unknown Comments: Listed on records from [facility] BENZALKONIUM CHLORIDE 09/08/2012 14 - Other: See Comments Comments: Skin irritations CLINDAMYCIN 03/27/2018 8 - GI Upset DOXYCYCLINE 12/13/2012 8 - GI Upset Comments: stomach cramps DUST MITES 04/26/2012 16 - Unknown Comments: Dust mites and cockroaches FLAGYL (METRONIDAZOLE HCL) 06/20/2012 4 - Hives HAND LAWN CARE SPECIALIST (ETHYL ALCOHOL (SK*11/04/2009 2 - Rash Comments: PT HAS SENSITIVE SKIN. O.K. FOR MEDICAL PROFESSIONAL TO USE HAND LAWN CARE SPECIALIST AND THEN TOUCH HER, BUT SHE HERSELF DOES NOT USE IT. IODINE 02/18/2011 2 - Rash LACTOSE INTOLERANCE (LACTASE) 11/04/2009 LATEX, NATURAL RUBBER 03/17/2018 2 - Rash SAUK-SUIATTLE 12/07/2017 10 - Anaphylaxis MELOXICAM 06/12/2018 16 - Unknown METRONIDAZOLE 04/11/2018 4 - Hives MOLD 04/26/2012 16 - Unknown MORPHINE 03/02/2011 9 - Itching PENICILLIN 06/18/2016 16 - Unknown pet dander [Other] 10/20/2011 16 - Unknown Comments: Cat, Dog, Horse PREDNISONE 08/26/2012 14 - Other: See Comments Comments: Moodiness, restlessness, states feels like crap all over. SEASONAL ALLERGIES 11/04/2009 16 - Unknown Comments: Trees, grasses, weeds, ragweed. SINGULAIR ([place]) 12/07/2017 16 - Unknown Comments: Possible rash SODIUM LAURYL SULFATE 09/30/2010 2 - Rash Comments: Skin irritation to scalp TREES 05/11/2012 14 - Other: See Comments ZOFRAN (ONDANSETRON HCL (PF)) 03/02/2011 14 - Other: See Comments Comments: Zofran causes cramping and constipation Date Reviewed: 06/14/2018 Reviewed by: Lacy Caicedo ([facility]) GABRIELLA Wilder - Fully Assessed Reason for Visit: Sinus Problem [99] Cmt: 6 days now,, chills no fever .Fatigue. headaches and pressure. Primary Visit Diagnosis:Sore throat [J02.9] Other Visit Diagnoses:Sinus pressure [J34.89] URI, acute [J06.9] Order(s):RAPID STREP TEST B/O [1551478] Order #: [id number] THROAT CULTURE [SQTHRCUL] Order #: [id number] Prescriptions as of 06/14/2018 Sig: TYLENOL ORAL Take 325 mg by mouth. ALBUTEROL SULFATE HFA 90 MCG/* Inhale 2 Puffs as instructed * FAMOTIDINE 20 MG TABLET Take 1 tablet by mouth at bed* FLUTICASONE 50 MCG/ACTUATION * Use 2 Sprays in each nostril * LORATADINE 10 MG TABLET Take 1 tablet by mouth once d* MULTIVITAMIN CAPSULE Take 1 capsule by mouth once * Problem List As Of Date 06/14/2018 Noted Resolved Frequency of urination [R35.0] INVALID FOR*10/20/2011 Pelvic pain in female [R10.2] INVALID FOR*10/20/2011 Microscopic hematuria [R31.29] INVALID FOR*09/15/2016 Other hammer toe (acquired) [M20.40] INVALID FOR*10/20/2011 Hallux valgus (acquired) [M20.10] INVALID FOR* Internal hemorrhoids without mention of complic*INVALID FOR*10/20/2011 Diarrhea [R19.7] INVALID FOR*10/20/2011 Abdominal pain, generalized [R10.84] INVALID FOR*10/20/2011 Low back pain [M54.5] INVALID FOR* Closed fracture of metatarsal bone(s) [S92.309A]INVALID FOR*09/15/2016 Tendonitis [M77.9] INVALID FOR*09/15/2016 Acne Vulgaris: Grade III Inflammatory and Comed*INVALID FOR*09/15/2016 Other seborrheic dermatitis [L21.8] INVALID FOR*09/15/2016 History of cold-induced urticaria [Z87.2] INVALID FOR* Seborrhea [L21.9] INVALID FOR*09/15/2016 Eczematous dermatitis [L30.9] INVALID FOR*09/15/2016 Xerosis cutis [L85.3] INVALID FOR*09/15/2016 Backache, unspecified [M54.9] INVALID FOR*09/15/2016 Asthma [J45.909] INVALID FOR* Attention-deficit hyperactivity disorder, predo*INVALID FOR* Pain disorder with psychological component [F45*INVALID FOR* Adjustment disorder with mixed anxiety and depr*INVALID FOR* Chronic midline low back pain without sciatica *INVALID FOR* Cervicalgia [M54.2] INVALID FOR* Degeneration of cervical intervertebral disc [M*INVALID FOR* Allergic rhinitis [J30.9] INVALID FOR* Other instructions from your clinician: If you develop fevers, vomiting, unable to keep fluids or food down, severe abdominal pain, or worst headache of your life. Medications Discontinued During This Encounter Hydrocortisone Acetate 1 % crea 30 g 2 12/17/2014 06/14/2018 Route: TOPICAL Sig: Apply 1 application to affected area twice daily. Patient not taking: Reported on 04/11/2018 Disc: Discontinued by Patient escitalopram oxalate (LEXAPRO) 20 mg* 0 09/15/2016 06/14/2018 Class: Med Update Route: ORAL Sig: Take 1 tablet by mouth once daily. Patient not taking: Reported on 03/16/2018 Disc: Discontinued by Patient ketotifen fumarate (ZADITOR) 0.025 %* 1 Diogenes* 5 10/06/2016 06/14/2018 Route: BOTH EYES Sig: Use 1 Drop in both eyes twice daily. As needed. Patient not taking: Reported on 04/08/2018 Disc: Discontinued by Patient naproxen (NAPROSYN) 500 mg tablet 60 t* 1 10/29/2016 06/14/2018 Route: ORAL Sig: Take 1 tablet by mouth twice daily as needed (for pain/inflammation). Take with food. Patient not taking: Reported on 04/08/2018 Disc: Discontinued by Patient beclomethasone (QVAR) 80 mcg/actuati* 1 In* 0 12/22/2016 06/14/2018 Route: INHALATION Sig: Inhale 2 Puffs as instructed twice daily. Disc: Discontinued by Patient VITAMIN D-3 2,000 unit cap 0 03/11/2017 06/14/2018 Class: Historical Med Sig: Disc: Discontinued by Patient CALCIUM CARBONATE/VITAMIN D3 (VITAMI* 06/14/2018 Class: Historical Med Route: ORAL Sig: Take by mouth. Disc: Discontinued by Patient benzonatate (TESSALON PERLE) 100 mg * 30 c* 0 01/19/2018 06/14/2018 Route: ORAL Sig: Take 1 capsule by mouth every 8 hours as needed for Cough. Patient not taking: Reported on 03/16/2018 Disc: Discontinued by Patient folic acid 400 mcg tablet 06/14/2018 Class: Historical Med Route: ORAL Sig: Take 400 mcg by mouth once daily. Disc: Discontinued by Patient naproxen (NAPROSYN) 500 mg tablet 30 t* 0 02/21/2018 06/14/2018 Route: ORAL Sig: Take 1 tablet by mouth twice daily with meals. FOR PAIN. TAKE WITH FOOD. Patient not taking: Reported on 04/08/2018 Disc: Course of therapy completed methylcellulose, with sugar, (CITRUC* 454 g 0 03/27/2018 06/14/2018 Sig: Mix 1 heaping teaspoon into 8 ox of water and take by mouth once a day Patient not taking: Reported on 04/08/2018 Disc: Discontinued by Patient lactobacillus rhamnosus (CULTURELLE)* 30 c* 0 03/27/2018 06/14/2018 Route: ORAL Sig: Take 1 capsule by mouth once daily. Patient not taking: Reported on 04/11/2018 Disc: Discontinued by Patient nystatin (MYCOSTATIN) cream 1 Tu* 1 05/05/2018 06/14/2018 Route: TOPICAL Sig: Apply 1 application to affected area twice daily. Disc: Course of therapy completed triamcinolone acetonide (KENALOG) 0.* 80 g 1 04/05/2018 06/14/2018 Route: TOPICAL Sig: Apply 1 application to affected area three times daily. Apply sparingly to area for rash/itching. Disc: Discontinued by Patient Letter Text Department of Internal Medicine [address] [address] 06/14/2018 Angelica Andujar [facility]# [id number] [address] [facility] [address] [address] TO WHOM IT MAY CONCERN: This is to certify that Ms. Angelica Andujar has been under my care for illness and was unable to work today on 06/14/2018. Sincerely yours, Chayito Tan APRN.CNP Encounter Status:Closed by CHAYITO TAN CNP on 06/14/18 URGENT CARE VISIT Observed: 06/13/2018 Status: F Source: [place] REPORT 1:28 PM [facility] REPOSITORY [facility] [address] [place] [address] OFFICE VISIT Date of Service: 06/13/18 MR#: [id number] Acct: [id number] Name: ANGELICA ANDUJAR Rep #: [id number] : 1980 Provider: Vik CARRILLO Age/Sex: 37/F Location: [facility] Status: Signed Intake Vital Signs06/13/18 Height 5 ft 7 in 06/13/18 Weight: 183 lb 06/13/18 Body Mass Index (BMI) 28.6 06/13/18 Blood Pressure 126/82 H Intake Visit Reasons: SINUS ISSUES, TROUBLE SLEEPING Machine Hostler Required: No Accompanied by: SELF Is patient in pain?: No Allergies clindamycin Allergy (Verified 06/13/18 13:08) Nausea/Vom/Diarrhea influenza virus vaccine, specific [influenza virus vacc,specific] Allergy (Verified 06/13/18 13:08) Other Latex, Natural Rubber Allergy (Verified 06/13/18 13:08) Rash metronidazole [From Flagyl] Allergy (Verified 06/13/18 13:08) Hives montelukast [From Singulair] Allergy (Verified 06/13/18 13:08) Rash morphine Allergy (Verified 06/13/18 13:08) Other Penicillins [PCN] Allergy (Verified 06/13/18 13:08) Unknown prednisone Adverse Reaction (Verified 06/13/18 13:08) Other ANTIBACTERIAL SOAP Allergy (Uncoded 06/13/18 13:08) Hives HAND LAWN CARE SPECIALIST Allergy (Uncoded 06/13/18 13:08) Hives SEASONAL ALLERGIES Allergy (Uncoded 06/13/18 13:08) Other Medications Loratadine 10 mg PO DAILY 05/12/18 [History Confirmed 06/13/18] Cholecalciferol (Vitamin D3) [Vitamin D3] 1,000 unit PO DAILY 06/10/18 [History Confirmed 06/13/18] Famotidine [Pepcid] 20 mg PO DAILY 06/10/18 [History Confirmed 06/13/18] Naproxen [Naprosyn] 500 mg PO BID PRN #20 tab 06/13/18 [Rx Confirmed 06/13/18] azithromycin 250 mg tablet See Rx Instructions PO .COMPLEX #6 tab 06/13/18 [Rx Confirmed 06/13/18] PFSH Medical History Chronic cough (Chronic) ASTHMA (Acute) Anemia (Acute) Anxiety (Acute) Arthritis (Acute) Chest pain (Acute) Depression (Acute) Difficulty balancing (Acute) Fatigue (Acute) NECK/BACK PAIN (Acute) Severe headache (Acute) Shoulder pain (Acute) Stomach ulcer (Acute) Social History Smoking Status: Former smoker second hand exposure: Yes alcohol intake: never HPI HPI Details: ANGELICA ANDUJAR, is a 37 F who presents to the office today for complaint of nasal congestion and sinus pressure/pain for the past 7 days. Patient states she has had increasing sinus pressure and headache over the past 4-5 days made slightly better with ibuprofen and naproxen. Patient denies any fever, chills, sweats. No nausea, vomiting, diarrhea. No other associated symptoms or alleviating/aggravating factors. ROS Const Constitutional: Positive for headache(s); no fever(s), chills, night sweats or abnormal sleep pattern ENT ENT: Positive for headache(s), nasal congestion, sinus pressure, sinus pain and nasal discharge; no ear pain Resp Respiratory: No cough or shortness of breath Cardio Cardiology: No shortness of breath, irregular heart rhythm or fast heart rate Neuro Neurology: Positive for headache(s); no confusion Psych Psychiatric: No abnormal sleep pattern, No confusion Exam Const General: cooperative, healthy appearing HENMT Head: normal to inspection Ears: hearing grossly normal bilaterally, TM's normal bilaterally, EAC's normal Nose: nasal discharge purulent Face and sinus: sinus tenderness frontal and maxillary Mouth: oral mucosae normal Throat: abnormal tonsil bilaterally, postnasal drainage Resp Effort AND Inspection: normal respiratory effort Auscultation: Bilateral: Clear to Auscultation Cardio Palpation: normal PMI Rate: regular rate Rhythm: regular rhythm Neuro General: alert, CN's II-XI intact bilaterally Psych Appearance: grossly normal Mental Status: mental status grossly normal Assessment AND Plan Problems 1. Acute non-recurrent pansinusitis J01.40 Status Acute Plan Azithromycin as prescribed today. Encouraged to get plenty of rest, drink lots of clear liquids, and use Tylenol or Ibuprofen (unless contraindicated) for fever and comfort. Patient also educated on other symptomatic management techniques. To be seen in 7-10 days if no improvement; sooner if worsening of symptoms. Patient advised of potential red flags and when appropriate report to the ED. Patient verbalized understanding of all the above. Medications New: Coding Level of Care Code Off vis,est,level 3 Diagnoses Acute non-recurrent pansinusitis J01.40 Sinusitis location: pansinusitis Recurrence: non-recurrent 06/13/18 1328 <Electronically signed by Vik CARRILLO> Date Vik CARRILLO Cosigner Signature: Date (if applicable) CC: DISCHARGE INSTRUCTION Observed: 06/13/2018 Status: F Source: [place] 12:05 AM [facility] REPOSITORY [facility] Medical Records Department [address] [place] [address] [place] [address] Discharge Instruction 06/13/18 0003 MR#: [id number] Acct: [id number] Name: ANGELICA ANDUJAR Rep #: [id number] : 1980 37 From: Ganga Chambers DO PCP: SAMANTHA BEJARANO Status: REG ER ED Disposition - Plan for ED Patient: Chief Complaint: Chest Pain Instructions: ED Chest Pain UKO Ch, ED Chest Pain Costochondritis Prescriptions: Naproxen [Naprosyn] 500 mg PO BID PRN #20 tab Referrals: Samantha Shields [Primary Care Provider] - 3-5 Days What to do if you have Problems For any increased pain, shortness of breath, bleeding, nausea or vomiting, chest pain, or any unexpected problems, contact your Primary Care Provider. Call [facility] ([phone]) or report to the closest Emergency Room. Call 911 if necessary. 06/13/18 0005 <Electronically signed by Ganga Chambers DO> Date Ganga Chambers DO Cosigner Signature (If Indicated): Date CC: SAMANTHA BEJARANO EMERGENCY DEPARTMENT Observed: 06/13/2018 Status: F Source: [place] SUMMARY 12:03 AM [facility] REPOSITORY [facility] Medical Records Department [address] [place] [address] Emergency Department Summary 06/13/18 0000 MR#: [id number] Acct: [id number] Name: ANGELICA ANDUJAR Rep #: [id number] : 1980 37 From: Ganga Chambers DO PCP: SAMANTHA BEJARANO Status: REG ER - ER Visit Summary Date of Service: 06/13/18 Chief Complaint: [Chest pain] History of Present Illness: The patient is a 37 F [presents to the emergency department complaint of chest pain that started around 9:10 PM. Patient states that she had gone to bed when she developed a sharp shooting pain in her left chest. Patient states that she is currently dealing with head cold but she has had no real cough. Patient denies recent travel or surgery. Patient denies nausea or vomiting. She denies shortness of breath. Patient rates her pain an 8 out of 10 currently. Patient not had any fever.] Physical Examination: [HEENT-PERRLA, EOMI. Cranial nerves II through XII grossly intact. TMs clear. Mucous membranes moist. No adenopathy. Cardiovascular-regular rate and rhythm without murmur or ectopy Lungs-clear to auscultation, chest wall stable without crepitus or subcu emphysema. Patient does have tenderness palpation over left anterior chest wall that seems to reproduce her pain. Abdomen-normoactive bowel sounds, soft, nontender, no rebound or rigidity, no peritoneal signs. Extremities-intact 4, normal range of motion, normal pulses, atraumatic] Test Results: [EKG obtained arrival shows sinus rhythm with no acute ST segment changes. CBC with differential is normal. Chemistries were normal. Troponin is less than 0.015. D-dimer is normal at 0.29.] Emergency Department Course and Treatment: [Patient initially was ordered Toradol which she refused and then she asked for Tylenol which she was given p.o.] Treatment Plan: [Patient will be given a prescription for naproxen as long as there is no allergy for such. Patient advised to follow-up with primary care physician within next 3-5 days.] Disposition: [Discharged home in stable condition] Impression: [Chest wall pain] This note was generated with [employer] dictation software. It may contain incorrect words, spelling, and punctuation that were not noted in review of the chart prior to signing ED Disposition - Plan for ED Patient: Chief Complaint: Chest Pain Referrals: Samantha Shields [Primary Care Provider] - What to do if you have Problems For any increased pain, shortness of breath, bleeding, nausea or vomiting, chest pain, or any unexpected problems, contact your Primary Care Provider. Call [facility] ([phone]) or report to the closest Emergency Room. Call 911 if necessary. 06/13/18 0003 <Electronically signed by Ganga Chambers DO> Date Remus Ungur DO Cosigner Signature (If Indicated): Date CC: SAMANTHA [facility] CBC W/DIFF, AUTOMATED Collected: 06/12/2018 Status: F Source: [place] 10:44 PM [facility] REPOSITORY TYPE CODE TESTS RESULT OUT OF RANGE REFERENCE UNITS LAB L100.1000 4.4-11.0 K/mm3 Normal WBC 10.4 LAB L100.1200 4.2-5.4 M/mm3 Normal RBC 4.70 LAB L100.1300 12.0-15.0 g/dl Normal HGB 13.4 LAB L100.1400 37-47 % Normal HCT 40.5 LAB L100.1500 81-99 fL Normal MCV 86.2 LAB L100.1600 27.0-32.0 pg Normal MCH 28.5 LAB L100.1700 32-36 g/gl Normal MCHC 33.1 LAB L100.1810 11.6-14.6 % Normal RDW CV 13.1 LAB L100.1820 35.1-43.9 fl Normal RDW SD 41.5 LAB L100.1900 150-450 K/mm3 Normal PLT 209 LAB L100.2000 6.2-12.0 fl Normal MPV 11.0 LAB L100.2100 47-70 % Normal NEUT% 67.2 LAB L100.2200 19-41 % Normal LY% 23.5 LAB L100.2300 0-10 % Normal MONO% 6.8 LAB L100.2400 0-5 % Normal EO% 2.1 LAB L100.2500 0-1 % Normal BASO% 0.2 LAB L100.2550 0.0-0.9 % Normal IM GRAN % 0.200 Result Comment: IG% - Immature Granulocytes (promyelocytes, myelocytes and metamyelocytes) > 1% indicates that a LEFT SHIFT is Present. LAB L100.2620 2.0-7.7 X10 3/uL Normal Absolute Neut 7.0 LAB L100.2720 0.83-4.51 X10 3/ul Normal Absolute Lymph 2.44 LAB L100.5500 ADEQ Normal PLT EST ADEQUATE LAB L100.7000 NORM C AND C NORMAL Normal RED CELL MORPH NORM C+C Performed By: #### L100.0100, L101.9900 #### [facility] [address] [place], [address] ERYTHROCYTE SED RATE Collected: 06/12/2018 Status: F Source: [place] 10:44 PM [facility] REPOSITORY TYPE CODE TESTS RESULT OUT OF RANGE REFERENCE UNITS LAB L102.0000 0-20 mm/hr Normal SED RATE 8 Performed By: #### L100.0100, L101.9900 #### [facility] [address] [place], [address] D-DIMER QUANTITATIVE Collected: 06/12/2018 Status: F Source: [place] (DVT/PE) 10:44 PM [facility] REPOSITORY TYPE CODE TESTS RESULT OUT OF RANGE REFERENCE UNITS LAB L300.8000 0.27-0.49 FEU/ug/m Normal D-DIMER 0.29 QUANT Result Comment: NORMAL D-Dimer level (<0.50) indicates no DVT or PE. Performed By: #### L300.8000 #### [facility] [address] [facility] [place], [place], [address] BASIC METABOLIC Collected: 06/12/2018 Status: F Source: [place] PROFILE (BMP) 10:44 PM [facility] REPOSITORY TYPE CODE TESTS RESULT OUT OF RANGE REFERENCE UNITS LAB L501.0100 74-106 mg/dL Normal GLU 82 Result Comment: Please note revised GLUCOSE reference range effective 2017. LAB L501.1000 7-18 mg/dL Normal BUN 18 LAB L501.1100 0.55-1.02 mg/dL Normal CREAT,SERUM 0.89 Result Comment: The validity of the calculated GFR AND GFRAA in patients over 70 years has not been determined. Clinical correlation is essential. LAB L501.1110 >60 mL/min Normal EST GFR 75 Result Comment: Non- GFR Calc LAB L501.1115 >60 mL/min Normal EST GFR - AA 91 Result Comment: GFR Calc LAB L501.1255 ml/min Normal Estimated CRCL 82.53 LAB L501.1300 10-20 RATIO High BUN/CRE 20.3 LAB L501.2200 8.5-10 mg/dL Normal .1 CA 8.5 LAB L501.5300 136-14 mmol/L Normal 5 NA 140 LAB L501.5600 3.5-5. mmol/L Normal 1 K 3.9 LAB L501.5900 98-107 mmol/L Normal CL 107 LAB L501.6100 21.0-3 mmol/L Normal 2.0 CO2 26.0 LAB L501.6200 5-15 Normal GAP 7 Performed By: #### L500.2500, L501.4010 #### [facility] [address] [facility] [place], [address] TROPONIN-I Collected: 06/12/2018 Status: F Source: [place] 10:44 PM [facility] REPOSITORY TYPE CODE TESTS RESULT OUT OF RANGE REFERENCE UNITS LAB L501.4010 <0.045 ng/mL Normal < 0.015 TROPONIN-I Result Comment: TROPONIN-I EXPECTED VALUES <0.045 Negative 0.045 - 0.590 Consistent with Cardiac Damage > OR = 0.600 Critical Value Not every elevated troponin is indicative of VT. These values should be used with clinical judgement in examining the patient's clinical picture for diagnosis. To establish a diagnosis of VT versus myocardial injury, there must be a demonstrated rise and/or fall in the troponin values, in addition to ischemic symptoms, EKG changes, new regional wall motion abnormality, and/or angiographical evidence. PLEASE NOTE: REFERENCE RANGES EDITED 18 Performed By: #### L500.2500, L501.4010 #### [facility] [address] [place], [address] CHEST 1 VIEW Observed: 06/12/2018 Status: F Source: [place] (PORTABLE) 10:31 PM [facility] REPOSITORY [facility] Imaging Services [address] [place] [address] Chest 1 View (Portable) MR#: [id number] Acct: [id number] Name: ANGELICA ANDUJAR Rep #: [id number] : 1980 F 37 From: Ayleen Edwards MD PCP: SAMANTHA [facility]OD [facility] Status: PRE ER Study: Chest 1 View (Portable) Date of Exam: 06/12/18 Exam# [id number] Ordering Dr: Ganga Chambers DO STUDY: X-RAY CHEST REASON FOR EXAM: Female, 37 years old. Chest pain with cough. TECHNIQUE: Portable chest. COMPARISON: 03/19/2018. FINDINGS: The lungs are clear and expanded. There is no demonstrated pleural abnormality. Normal size heart. Normal mediastinum and jennifer. Normal visualized pulmonary arteries. Normal visualized aortic arch and descending thoracic aorta. Normal visualized thoracic spine. Normal visualized ribs, clavicles, and shoulders. There is no demonstrated abnormality of the visualized soft tissue structures of the upper abdomen. RAD/Chest 1 View (Portable) IMPRESSION: Normal x-ray examination of the chest. Electronically Signed: Ayleen Edwards MD at 22:52 EDT Tel , Service support , CC: Ganga Chamebrs DO; SAMANTHA [facility] Vault Mechanic: Signed 12 LEAD ELECTROCARDIOGRAM Observed: 06/12/2018 Status: F Source: [place] 2:38 PM [facility] REPOSITORY [facility] Cardiovascular Services [address] [place] [address] 12 Lead EKG 06/08/182035 MR#: [id number] Acct: [id number] Name: ANGELICA ANDUJAR Rep #: [id number] : 1980 37 From: Vidal Lepe MD Attending Dr: Status: DEP ER Ordering Dr: Juana Christopher MD Date: 06/08/18 Location: ED Sex: F C Admitted: Test Reason : GEN ILLNESS Blood Pressure : / mmHG Vent. Rate : 058 BPM Atrial Rate : 058 BPM P-R Int : 154 ms QRS Dur : 080 ms QT Int : 430 ms P-R-T Axes : 032 030 009 degrees QTc Int : 422 ms Sinus bradycardia Otherwise normal ECG Confirmed by VIDAL LEPE MD ([id number]), editor & co founder МАРИНА BRAR ([id number]) on 06/12/2018 2:37:59 PM Referred By: Mallorie Alexis Confirmed By:VIDAL LEPE MD 06/12/18 1438 Date Vidal Lepe MD CC: Juana Christopher MD; Mallorie DE LA TORRE; SAMANTHA [facility] Signed PROGRESS Observed: 06/12/2018 Status: COMPLETED Source: [place] 12:16 PM [facility] REPOSITORY HNO ID: [id number] Author: Ian Ying Service: (none) Author Type: Physician Type: Progress Notes Filed: 06/12/2018 12:32 PM Note Text: Patient presents with: Sinus Problem: sinus pressure and green drainage x 5 days HPI: Feeling sick for ~5 days. Seen 2 days ago for fatigue. She has also been to the ER for fatigue. VS clinic is closed today. Positive symptoms: Sinus pressure between the eyes, Rhinorrhea, Nasal Congestion, Post nasal drainage, unrelenting hunger for a couple months, Chills Negative symptoms: Fever, OTC: flonase, hot shower. Not taking loratidine MEDICATIONS: Current Outpatient Prescriptions: acetaminophen (TYLENOL ORAL) Take 325 mg by mouth. albuterol HFA (PROAIR HFA) 90 mcg/actuation inhaler Inhale 2 Puffs as instructed every 4 hours as needed for Wheezing/Shortness of Breath. VITAMIN D-3 2,000 unit cap beclomethasone (QVAR) 80 mcg/actuation inhaler Inhale 2 Puffs as instructed twice daily. famotidine (PEPCID) 20 mg tablet Take 1 tablet by mouth at bedtime as needed. fluticasone (FLONASE) 50 mcg/actuation nasal spray Use 2 Sprays in each nostril once daily. loratadine (CLARITIN) 10 mg tablet Take 1 tablet by mouth once daily. Multivitamin capsule Take 1 capsule by mouth once daily. nystatin (MYCOSTATIN) cream Apply 1 application to affected area twice daily. (Patient not taking: Reported on 06/12/2018 ) triamcinolone acetonide (KENALOG) 0.1 % cream Apply 1 application to affected area three times daily. Apply sparingly to area for rash/itching. (Patient not taking: Reported on 04/11/2018 ) lactobacillus rhamnosus (CULTURELLE) 10 billion cell capsule Take 1 capsule by mouth once daily. (Patient not taking: Reported on 04/11/2018 ) methylcellulose, with sugar, (CITRUCEL, SUCROSE,) oral powder Mix 1 heaping teaspoon into 8 ox of water and take by mouth once a day (Patient not taking: Reported on 04/08/2018 ) naproxen (NAPROSYN) 500 mg tablet Take 1 tablet by mouth twice daily with meals. FOR PAIN. TAKE WITH FOOD. (Patient not taking: Reported on 04/08/2018 ) folic acid 400 mcg tablet Take 400 mcg by mouth once daily. benzonatate (TESSALON PERLE) 100 mg capsule Take 1 capsule by mouth every 8 hours as needed for Cough. (Patient not taking: Reported on 03/16/2018 ) CALCIUM CARBONATE/VITAMIN D3 (VITAMIN D-3 ORAL) Take by mouth. naproxen (NAPROSYN) 500 mg tablet Take 1 tablet by mouth twice daily as needed (for pain/inflammation). Take with food. (Patient not taking: Reported on 04/08/2018 ) ketotifen fumarate (ZADITOR) 0.025 % (0.035 %) ophthalmic solution Use 1 Drop in both eyes twice daily. As needed. (Patient not taking: Reported on 04/08/2018 ) escitalopram oxalate (LEXAPRO) 20 mg tablet Take 1 tablet by mouth once daily. (Patient not taking: Reported on 03/16/2018 ) Hydrocortisone Acetate 1 % crea Apply 1 application to affected area twice daily. (Patient not taking: Reported on 04/11/2018 ) No current facility-administered medications for this visit. ALLERGIES: ALLERGIES Allergen Reactions - Anti-Bacterial Jennifer* Rash - Bees Unknown Listed on records from [facility] - Benzalkonium Chlori* Other: See Comments Skin irritations - Clindamycin GI Upset - Doxycycline GI Upset stomach cramps - Dust Mites Unknown Dust mites and cockroaches - Flagyl [Metronidazo* Hives - Hand Loan Servicing Officer [Eth* Rash PT HAS SENSITIVE SKIN. O.K. FOR MEDICAL PROFESSIONAL TO USE HAND LAWN CARE SPECIALIST AND THEN TOUCH HER, BUT SHE HERSELF DOES NOT USE IT. - Iodine Rash - Lactose Intolerance* - Latex, Natural Rubb* Rash - Nisqually Anaphylaxis - Meloxicam Unknown - Metronidazole Hives - Mold Unknown - Morphine Itching - Penicillin Unknown - Pet Dander [Other] Unknown Cat, Dog, Horse - Prednisone Other: See Comments Moodiness, restlessness, states feels like crap all over. - Seasonal Allergies Unknown Trees, grasses, weeds, ragweed. - Singulair [Monteluk* Unknown Possible rash - Sodium Lauryl Sulfa* Rash Skin irritation to scalp - Trees Other: See Comments - Zofran [Ondansetron* Other: See Comments Zofran causes cramping and constipation VITALS: BP 122/72 Pulse 74 Temp 36.3 ?C (97.4 ?F) (Tympanic) Resp 16 Wt 85.3 kg (188 lb) BMI 29.44 kg/m? PHYSICAL EXAM: GEN: mildly ill appearing HEENT: PERRL, EOMI, conjunctiva clear Ears: canals clear, TMs with remote scars but without erythema, bulge, or effusion Sinuses: non-tender frontal sinus, non-tender maxillary sinuses (points to between the eyes as location of discomfort) Throat: moist mucous membranes, mild erythema, no exudate Neck: supple, no thyromegaly, no lymphadenopathy HEART: regular rate and rhythm, no murmurs LUNGS: clear to auscultation, no wheezes or crackles, no increased WOB ASSESSMENT/PLAN: 1. Nasal congestion - ICD9: 478.19, ICD10: R09.81 Acute URI vs allergies. Continue flonase. Add claritin. Planning primary care f/u for fatigue and ER lab review. Ian Ying MD CNOV Observed: 06/12/2018 Status: COMPLETED Source: [place] 11:45 AM [facility] REPOSITORY Office Visit (WSTR) ANGEILCA ANDUJAR ([id number]) 1980 F Date Time Provider Department 06/12/18 11:45 AM IAN YING During your visit today, we recorded the following information about you: Temperature Pulse Respiration Blood pressure 97.4 degrees 74/minute 16/minute 122/72 Weight 85.3 kg Ian Ying MD 06/12/2018 12:32 PM Signed Patient presents with: Sinus Problem: sinus pressure and green drainage x 5 days HPI: Feeling sick for ~5 days. Seen 2 days ago for fatigue. She has also been to the ER for fatigue. VS clinic is closed today. Positive symptoms: Sinus pressure between the eyes, Rhinorrhea, Nasal Congestion, Post nasal drainage, unrelenting hunger for a couple months, Chills Negative symptoms: Fever, OTC: flonase, hot shower. Not taking loratidine MEDICATIONS: Current Outpatient Prescriptions: acetaminophen (TYLENOL ORAL) Take 325 mg by mouth. albuterol HFA (PROAIR HFA) 90 mcg/actuation inhaler Inhale 2 Puffs as instructed every 4 hours as needed for Wheezing/Shortness of Breath. VITAMIN D-3 2,000 unit cap beclomethasone (QVAR) 80 mcg/actuation inhaler Inhale 2 Puffs as instructed twice daily. famotidine (PEPCID) 20 mg tablet Take 1 tablet by mouth at bedtime as needed. fluticasone (FLONASE) 50 mcg/actuation nasal spray Use 2 Sprays in each nostril once daily. loratadine (CLARITIN) 10 mg tablet Take 1 tablet by mouth once daily. Multivitamin capsule Take 1 capsule by mouth once daily. nystatin (MYCOSTATIN) cream Apply 1 application to affected area twice daily. (Patient not taking: Reported on 06/12/2018 ) triamcinolone acetonide (KENALOG) 0.1 % cream Apply 1 application to affected area three times daily. Apply sparingly to area for rash/itching. (Patient not taking: Reported on 04/11/2018 ) lactobacillus rhamnosus (CULTURELLE) 10 billion cell capsule Take 1 capsule by mouth once daily. (Patient not taking: Reported on 04/11/2018 ) methylcellulose, with sugar, (CITRUCEL, SUCROSE,) oral powder Mix 1 heaping teaspoon into 8 ox of water and take by mouth once a day (Patient not taking: Reported on 04/08/2018 ) naproxen (NAPROSYN) 500 mg tablet Take 1 tablet by mouth twice daily with meals. FOR PAIN. TAKE WITH FOOD. (Patient not taking: Reported on 04/08/2018 ) folic acid 400 mcg tablet Take 400 mcg by mouth once daily. benzonatate (TESSALON PERLE) 100 mg capsule Take 1 capsule by mouth every 8 hours as needed for Cough. (Patient not taking: Reported on 03/16/2018 ) CALCIUM CARBONATE/VITAMIN D3 (VITAMIN D-3 ORAL) Take by mouth. naproxen (NAPROSYN) 500 mg tablet Take 1 tablet by mouth twice daily as needed (for pain/inflammation). Take with food. (Patient not taking: Reported on 04/08/2018 ) ketotifen fumarate (ZADITOR) 0.025 % (0.035 %) ophthalmic solution Use 1 Drop in both eyes twice daily. As needed. (Patient not taking: Reported on 04/08/2018 ) escitalopram oxalate (LEXAPRO) 20 mg tablet Take 1 tablet by mouth once daily. (Patient not taking: Reported on 03/16/2018 ) Hydrocortisone Acetate 1 % crea Apply 1 application to affected area twice daily. (Patient not taking: Reported on 04/11/2018 ) No current facility-administered medications for this visit. ALLERGIES: ALLERGIES Allergen Reactions - Anti-Bacterial Jennifer* Rash - Bees Unknown Listed on records from [facility] - Benzalkonium Chlori* Other: See Comments Skin irritations - Clindamycin GI Upset - Doxycycline GI Upset stomach cramps - Dust Mites Unknown Dust mites and cockroaches - Flagyl [Metronidazo* Hives - Hand Loan Servicing Officer [Eth* Rash PT HAS SENSITIVE SKIN. O.K. FOR MEDICAL PROFESSIONAL TO USE HAND LAWN CARE SPECIALIST AND THEN TOUCH HER, BUT SHE HERSELF DOES NOT USE IT. - Iodine Rash - Lactose Intolerance* - Latex, Natural Rubb* Rash - Nisqually Anaphylaxis - Meloxicam Unknown - Metronidazole Hives - Mold Unknown - Morphine Itching - Penicillin Unknown - Pet Dander [Other] Unknown Cat, Dog, Horse - Prednisone Other: See Comments Moodiness, restlessness, states feels like crap all over. - Seasonal Allergies Unknown Trees, grasses, weeds, ragweed. - Singulair [Monteluk* Unknown Possible rash - Sodium Lauryl Sulfa* Rash Skin irritation to scalp - Trees Other: See Comments - Zofran [Ondansetron* Other: See Comments Zofran causes cramping and constipation VITALS: BP 122/72 Pulse 74 Temp 36.3 ?C (97.4 ?F) (Tympanic) Resp 16 Wt 85.3 kg (188 lb) BMI 29.44 kg/m? PHYSICAL EXAM: GEN: mildly ill appearing HEENT: PERRL, EOMI, conjunctiva clear Ears: canals clear, TMs with remote scars but without erythema, bulge, or effusion Sinuses: non-tender frontal sinus, non-tender maxillary sinuses (points to between the eyes as location of discomfort) Throat: moist mucous membranes, mild erythema, no exudate Neck: supple, no thyromegaly, no lymphadenopathy HEART: regular rate and rhythm, no murmurs LUNGS: clear to auscultation, no wheezes or crackles, no increased WOB ASSESSMENT/PLAN: 1. Nasal congestion - ICD9: 478.19, ICD10: R09.81 Acute URI vs allergies. Continue flonase. Add claritin. Planning primary care f/u for fatigue and ER lab review. Ian Ying MD Referring Provider: SELF [200] Allergies As of Date: 06/12/2018 Noted Allergy Reaction ANTI-BACTERIAL CLEANSING (BENZETH*10/26/2012 2 - Rash BEES 07/16/2010 16 - Unknown Comments: [facility] BENZALKONIUM CHLORIDE 09/08/2012 14 - Other: See Comments Comments: Skin irritations CLINDAMYCIN 03/27/2018 8 - GI Upset DOXYCYCLINE 12/13/2012 8 - GI Upset Comments: stomach cramps DUST MITES 04/26/2012 16 - Unknown Comments: Dust mites and cockroaches FLAGYL (METRONIDAZOLE HCL) 06/20/2012 4 - Hives HAND LAWN CARE SPECIALIST (ETHYL ALCOHOL (SK*11/04/2009 2 - Rash Comments: PT HAS SENSITIVE SKIN. O.K. FOR MEDICAL PROFESSIONAL TO USE HAND LAWN CARE SPECIALIST AND THEN TOUCH HER, BUT SHE HERSELF DOES NOT USE IT. IODINE 02/18/2011 2 - Rash LACTOSE INTOLERANCE (LACTASE) 11/04/2009 LATEX, NATURAL RUBBER 03/17/2018 2 - Rash SAUK-SUIATTLE 12/07/2017 10 - Anaphylaxis MELOXICAM 06/12/2018 16 - Unknown METRONIDAZOLE 04/11/2018 4 - Hives MOLD 04/26/2012 16 - Unknown MORPHINE 03/02/2011 9 - Itching PENICILLIN 06/18/2016 16 - Unknown pet dander [Other] 10/20/2011 16 - Unknown Comments: Cat, Dog, Horse PREDNISONE 08/26/2012 14 - Other: See Comments Comments: Moodiness, restlessness, states feels like crap all over. SEASONAL ALLERGIES 11/04/2009 16 - Unknown Comments: Trees, grasses, weeds, ragweed. SINGULAIR (MONTELUKAST) 12/07/2017 16 - Unknown Comments: Possible rash SODIUM LAURYL SULFATE 09/30/2010 2 - Rash Comments: Skin irritation to scalp TREES 05/11/2012 14 - Other: See Comments ZOFRAN (ONDANSETRON HCL (PF)) 03/02/2011 14 - Other: See Comments Comments: Zofran causes cramping and constipation Date Reviewed: 06/12/2018 Reviewed by: Bernadine Reeves Ma - Fully Assessed Reason for Visit: Sinus Problem [99] Cmt: sinus pressure and green drainage x 5 days Reason For Visit History Recorded Primary Visit Diagnosis:Nasal congestion [R09.81] Prescriptions as of 06/12/2018 Sig: TYLENOL ORAL Take 325 mg by mouth. ALBUTEROL SULFATE HFA 90 MCG/* Inhale 2 Puffs as instructed * VITAMIN D3 2,000 UNIT CAPSULE BECLOMETHASONE DIPROPIONATE 8* Inhale 2 Puffs as instructed * FAMOTIDINE 20 MG TABLET Take 1 tablet by mouth at bed* FLUTICASONE 50 MCG/ACTUATION * Use 2 Sprays in each nostril * LORATADINE 10 MG TABLET Take 1 tablet by mouth once d* MULTIVITAMIN CAPSULE Take 1 capsule by mouth once * NYSTATIN 100,000 UNIT/GRAM TO* Apply 1 application to affect* Patient not taking: Reported on 06/12/2018 TRIAMCINOLONE ACETONIDE 0.1 %* Apply 1 application to affect* Patient not taking: Reported on 04/11/2018 LACTOBACILLUS RHAMNOSUS GG 10* Take 1 capsule by mouth once * Patient not taking: Reported on 04/11/2018 METHYLCELLULOSE (WITH SUGAR) * Mix 1 heaping teaspoon into 8* Patient not taking: Reported on 04/08/2018 NAPROXEN 500 MG TABLET Take 1 tablet by mouth twice * Patient not taking: Reported on 04/08/2018 FOLIC ACID 400 MCG TABLET Take 400 mcg by mouth once da* BENZONATATE 100 MG CAPSULE Take 1 capsule by mouth every* Patient not taking: Reported on 03/16/2018 VITAMIN D-3 ORAL Take by mouth. NAPROXEN 500 MG TABLET Take 1 tablet by mouth twice * Patient not taking: Reported on 04/08/2018 KETOTIFEN 0.025 % (0.035 %) E* Use 1 Drop in both eyes twice* Patient not taking: Reported on 04/08/2018 ESCITALOPRAM 20 MG TABLET Take 1 tablet by mouth once d* Patient not taking: Reported on 03/16/2018 HYDROCORTISONE ACETATE 1 % TO* Apply 1 application to affect* Patient not taking: Reported on 04/11/2018 Problem List As Of Date 06/12/2018 Noted Resolved Frequency of urination [R35.0] INVALID FOR*10/20/2011 Pelvic pain in female [R10.2] INVALID FOR*10/20/2011 Microscopic hematuria [R31.29] INVALID FOR*09/15/2016 Other hammer toe (acquired) [M20.40] INVALID FOR*10/20/2011 Hallux valgus (acquired) [M20.10] INVALID FOR* Internal hemorrhoids without mention of complic*INVALID FOR*10/20/2011 Diarrhea [R19.7] INVALID FOR*10/20/2011 Abdominal pain, generalized [R10.84] INVALID FOR*10/20/2011 Low back pain [M54.5] INVALID FOR* Closed fracture of metatarsal bone(s) [S92.309A]INVALID FOR*09/15/2016 Tendonitis [M77.9] INVALID FOR*09/15/2016 Acne Vulgaris: Grade III Inflammatory and Comed*INVALID FOR*09/15/2016 Other seborrheic dermatitis [L21.8] INVALID FOR*09/15/2016 History of cold-induced urticaria [Z87.2] INVALID FOR* Seborrhea [L21.9] INVALID FOR*09/15/2016 Eczematous dermatitis [L30.9] INVALID FOR*09/15/2016 Xerosis cutis [L85.3] INVALID FOR*09/15/2016 Backache, unspecified [M54.9] INVALID FOR*09/15/2016 Asthma [J45.909] INVALID FOR* Attention-deficit hyperactivity disorder, predo*INVALID FOR* Pain disorder with psychological component [F45*INVALID FOR* Adjustment disorder with mixed anxiety and depr*INVALID FOR* Chronic midline low back pain without sciatica *INVALID FOR* Cervicalgia [M54.2] INVALID FOR* Degeneration of cervical intervertebral disc [M*INVALID FOR* Allergic rhinitis [J30.9] INVALID FOR* Letter Text . [place] [facility] [address], [place] [address] 06/12/2018 Angelica Andujar C[facility]# [id number] [address] [address] TO WHOM IT MAY CONCERN: This is to confirm that Angelica Andujar had an appointment and was seen at the [facility] in the Department of Urgent Care by Ian Ying MD on 06/12/2018 for illness. Sincerely , Ian Ying MD Encounter Status:Closed by IAN YING MD on 06/12/18 EMERGENCY DEPARTMENT Observed: 06/10/2018 Status: F Source: [place] SUMMARY 4:01 PM [facility] REPOSITORY [facility] Medical Records Department [address] [place] [address] Emergency Department Summary 06/10/18 1118 MR#: [id number] Acct: [id number] Name: ANGELICA ANDUJAR Rep #: [id number] : 1980 37 From: Elvi Wick MD PCP: SAMANTHA HOOD [facility] Status: DEP ER - ER Visit Summary Date of Service: 06/10/18 Chief Complaint: [] Would like potassium blood test repeated History of Present Illness: The patient is a 37 F [] patient indicates she was here on in the emergency department, for nonspecific complaints of workup was unremarkable except potassium was 3.4, she was told to basically eat foods containing potassium follow with her physicians to have the potassium repeated as an outpatient, she indicates she sees outpatient providers but she went to the [facility] urgent care who she indicates refused to repeat her potassium level and told her if she wanted it done she is to come back to the emergency department Patient has no complaints other than feeling tired which is a chronic complaint for her there is no new issues no fever no cough chest pain no 6 paresthesias she is insisting that her potassium level be repeated, she does see physicians through outpatient management and through Samantha lee in clinic who are managing allergy type symptoms for her she is on no diuretics , she is not known to have any renal disease or any conditions that cause her to have a low potassium Physical Examination: [] General, no distress resting comfortably, vital signs are within normal range HEENT is generally unremarkable The neck is supple no adenopathy Cardiovascular, regular rate and rhythm Lungs, clear bilateral Abdomen, soft nontender Extremities, no clubbing cyanosis or edema Neurologic, awake alert answering questions appropriately moving all 4 extremities, she is completely in no distress again insisting that her potassium will be redrawn Test Results: [] Emergency Department Course and Treatment: [] I explained to the patient the potassium level 3.4 is typically treated with supplemental foods high in potassium she is having normal general health condition with no changes of any kind she has outpatient providers who can see her and manage his condition but she is overly concerned about the potassium and wants it repeated, she wants nothing else done Treatment Plan: [] A Chem-7 panel is obtained is unremarkable potassium 4.1 patient will follow up with her family physicians for further management of the above Disposition: [] Home stable Impression: [] Generalized fatigue, history of hypokalemia 3.4 This note was generated with [employer] dictation software. It may contain incorrect words, spelling, and punctuation that were not noted in review of the chart prior to signing ED Disposition - Plan for ED Patient: Chief Complaint: General Illness Referrals: Katharina Bejarano,Samantha Hood [Primary Care Provider] - What to do if you have Problems For any increased pain, shortness of breath, bleeding, nausea or vomiting, chest pain, or any unexpected problems, contact your Primary Care Provider. Call [facility] ([phone]) or report to the closest Emergency Room. Call 911 if necessary. 06/10/18 1601 <Electronically signed by Elvi Wick MD> Date Elvi Wick MD Cosigner Signature (If Indicated): Date CC: [facility] DISCHARGE INSTRUCTION Observed: 06/10/2018 Status: F Source: [place] 11:49 AM [facility] REPOSITORY [facility] Medical Records Department [address] [place] [address] Discharge Instruction 06/10/18 1148 MR#: [id number] Acct: [id number] Name: ANGELICA ANDUJAR Rep #: [id number] : 1980 37 From: Elvi Wick MD PCP: SAMANTHA BEJARANO Status: REG ER ED Disposition - Plan for ED Patient: Chief Complaint: General Illness Instructions: ED Weakness [facility] Referrals: Katharina Bejarano,Samantha Hood [Primary Care Provider] - What to do if you have Problems For any increased pain, shortness of breath, bleeding, nausea or vomiting, chest pain, or any unexpected problems, contact your Primary Care Provider. Call [facility] ([phone]) or report to the closest Emergency Room. Call 911 if necessary. 06/10/18 1149 <Electronically signed by Elvi Wick MD> Date Elvi Reyeser Signature (If Indicated): Date CC: SAMANTHA BEJARANO BASIC METABOLIC Collected: 06/10/2018 Status: F Source: [place] PROFILE (BMP) 11:20 AM [facility] REPOSITORY TYPE CODE TESTS RESULT OUT OF RANGE REFERENCE UNITS LAB L501.0100 74-106 mg/dL Normal GLU 83 Result Comment: Please note revised GLUCOSE reference range effective 2017. LAB L501.1000 7-18 mg/dL Normal BUN 9 LAB L501.1100 0.55-1.02 mg/dL Normal CREAT,SERUM 0.76 Result Comment: The validity of the calculated GFR AND GFRAA in patients over 70 years has not been determined. Clinical correlation is essential. LAB L501.1110 >60 mL/min Normal EST GFR 90 Result Comment: Non- GFR Calc LAB L501.1115 >60 mL/min Normal EST GFR - AA 108 Result Comment: GFR Calc LAB L501.1255 ml/min Normal Estimated CRCL 96.64 LAB L501.1300 10-20 RATIO Normal BUN/CRE 11.8 LAB L501.2200 8.5-10 mg/dL Normal .1 CA 8.8 LAB L501.5300 136-14 mmol/L Normal 5 NA 141 LAB L501.5600 3.5-5. mmol/L Normal 1 K 4.1 LAB L501.5900 98-107 mmol/L Normal CL 107 LAB L501.6100 21.0-3 mmol/L Normal 2.0 CO2 26.0 LAB L501.6200 5-15 Normal GAP 8 Performed By: #### L500.2500 #### [facility] [address] [place], [address] PROGRESS Observed: 06/10/2018 Status: COMPLETED Source: [place] 9:46 AM [facility] REPOSITORY [facility] ID: [id number] Author: Lennox Belcher Service: (none) Author Type: Physician Cinder Pit Crane Operator Type: Progress Notes Filed: 06/10/2018 10:49 AM Note Text: 06/10/2018 Patient presents with: Fatigue SUBJECTIVE: This is a 37 year old that is here today for Complaint(s) of fatigue and overall feeling weak. hse was seen in ER 2 days ago and dx with mild hypokalemia, prescribed outpatient potassium supplements but did not start yet. She was having some ringing int he left ear and some right ear pain, intermittent. She missed work today and needs an excuse today. Denies fever/chills, diarrhea, vomiting, abdominal pain, muscle spasms, chest pain, SOB, URI sx. PAST MEDICAL HISTORY Diagnosis Date - 11/2009 - Anxiety - Asthma - Depression - Recurrent UTI - Seasonal allergies - STD (sexually transmitted disease) ALLERGIES Anti-Bacterial Cleansing [Benzethonium Chloride]; Bees; Benzalkonium Chloride; Clindamycin; Doxycycline; Dust Mites; Flagyl [Metronidazole Hcl]; Hand Loan Servicing Officer [Ethyl Alcohol (Skin Cleanser)]; Iodine; Lactose Intolerance [Lactase]; Latex, Natural Rubber; Nisqually; Metronidazole; Mold; Morphine; Penicillin; Pet Dander [Other]; Prednisone; Seasonal Allergies; Singulair [Montelukast]; Sodium Lauryl Sulfate; Trees; Zofran [Ondansetron Hcl (Pf)] MEDICATIONS Current Outpatient Prescriptions: nystatin (MYCOSTATIN) cream Apply 1 application to affected area twice daily. triamcinolone acetonide (KENALOG) 0.1 % cream Apply 1 application to affected area three times daily. Apply sparingly to area for rash/itching. (Patient not taking: Reported on 04/11/2018 ) lactobacillus rhamnosus (CULTURELLE) 10 billion cell capsule Take 1 capsule by mouth once daily. (Patient not taking: Reported on 04/11/2018 ) methylcellulose, with sugar, (CITRUCEL, SUCROSE,) oral powder Mix 1 heaping teaspoon into 8 ox of water and take by mouth once a day (Patient not taking: Reported on 04/08/2018 ) naproxen (NAPROSYN) 500 mg tablet Take 1 tablet by mouth twice daily with meals. FOR PAIN. TAKE WITH FOOD. (Patient not taking: Reported on 04/08/2018 ) folic acid 400 mcg tablet Take 400 mcg by mouth once daily. benzonatate (TESSALON PERLE) 100 mg capsule Take 1 capsule by mouth every 8 hours as needed for Cough. (Patient not taking: Reported on 03/16/2018 ) albuterol HFA (PROAIR HFA) 90 mcg/actuation inhaler Inhale 2 Puffs as instructed every 4 hours as needed for Wheezing/Shortness of Breath. CALCIUM CARBONATE/VITAMIN D3 (VITAMIN D-3 ORAL) Take by mouth. VITAMIN D-3 2,000 unit cap beclomethasone (QVAR) 80 mcg/actuation inhaler Inhale 2 Puffs as instructed twice daily. famotidine (PEPCID) 20 mg tablet Take 1 tablet by mouth at bedtime as needed. (Patient not taking: Reported on 05/05/2018 ) naproxen (NAPROSYN) 500 mg tablet Take 1 tablet by mouth twice daily as needed (for pain/inflammation). Take with food. (Patient not taking: Reported on 04/08/2018 ) ketotifen fumarate (ZADITOR) 0.025 % (0.035 %) ophthalmic solution Use 1 Drop in both eyes twice daily. As needed. (Patient not taking: Reported on 04/08/2018 ) escitalopram oxalate (LEXAPRO) 20 mg tablet Take 1 tablet by mouth once daily. (Patient not taking: Reported on 03/16/2018 ) fluticasone (FLONASE) 50 mcg/actuation nasal spray Use 2 Sprays in each nostril once daily. loratadine (CLARITIN) 10 mg tablet Take 1 tablet by mouth once daily. Hydrocortisone Acetate 1 % crea Apply 1 application to affected area twice daily. (Patient not taking: Reported on 04/11/2018 ) Multivitamin capsule Take 1 capsule by mouth once daily. No current facility-administered medications for this visit. SOCIAL HISTORY Social History Marital status: Single Spouse name: Years of education: GED Number of children: 0 Occupational History Occupation Employer Comment Unemployed Social History Main Topics Smoking status: Former Smoker Packs/day: 0.00 Years: 3.00 Types: Cigarettes Quit date: 03/03/2018 Smokeless tobacco: Never Used Comment: 2 weeks no cigarettes Alcohol use: Yes Comment: Seldom Drug use: No Sexual activity: Yes Partners with: Male control/protection: None REVIEW OF SYSTEMS All other reviewed and negative other than HPI. OBJECTIVE: BP 120/80 Pulse 78 Temp 37.1 ?C (98.7 ?F) (Left Tympanic) Resp 16 Wt 86.6 kg (191 lb) BMI 29.91 kg/m? APPEARANCE Well appearing, alert, in no acute distress, well-hydrated, well nourished. EYES PERRLA, conjunctiva and sclera normal. EARS External ears normal, canals clear NOSE/SINUS Nares normal. Septum midline. Mucosa normal. No drainage or sinus tenderness. THROAT normal, no erythema NECK Supple, no adenopathy; thyroid symmetric, normal size, no bruits HEART RRR with normal S1 and S2, no murmurs, no gallops, no JVD appreciated LUNG clear to auscultation ABDOMEN bowel sounds normoactive, no bruits, soft, non-tender, non-distended, without organomegaly or palpable masses, no tenderness to palpation ASSESSMENT/PLAN: 1. Fatigue, unspecified type - ICD9: 780.79, ICD10: R53.83 Advise picking up potassium prescription and following instructions from ER discharge Reviewed red flags and when to seek care sooner in ER F/u with PCP as scheduled The patient indicates understanding of these issues and agrees with the plan. Reviewed red flags and when to seek care sooner. Lennox Belcher PA-C CNOV Observed: 06/10/2018 Status: COMPLETED Source: [place] 9:45 AM [facility] REPOSITORY Office Visit (WSTR) ANGELICA ANDUJAR ([id number]) 1980 F Date Time Provider Department 06/10/18 9:45 AM [facility] During your visit today, we recorded the following information about you: Temperature Pulse Respiration Blood pressure 98.7 degrees 78/minute 16/minute 120/80 Weight 86.6 kg Lennox Belcher PA-C 06/10/2018 10:49 AM Signed 06/10/2018 Patient presents with: Fatigue SUBJECTIVE: This is a 37 year old that is here today for Complaint(s) of fatigue and overall feeling weak. hse was seen in ER 2 days ago and dx with mild hypokalemia, prescribed outpatient potassium supplements but did not start yet. She was having some ringing int he left ear and some right ear pain, intermittent. She missed work today and needs an excuse today. Denies fever/chills, diarrhea, vomiting, abdominal pain, muscle spasms, chest pain, SOB, URI sx. PAST MEDICAL HISTORY Diagnosis Date - 11/2009 - Anxiety - Asthma - Depression - Recurrent UTI - Seasonal allergies - STD (sexually transmitted disease) ALLERGIES Anti-Bacterial Cleansing [Benzethonium Chloride]; Bees; Benzalkonium Chloride; Clindamycin; Doxycycline; Dust Mites; Flagyl [Metronidazole Hcl]; Hand Loan Servicing Officer [Ethyl Alcohol (Skin Cleanser)]; Iodine; Lactose Intolerance [Lactase]; Latex, Natural Rubber; Nisqually; Metronidazole; Mold; Morphine; Penicillin; Pet Dander [Other]; Prednisone; Seasonal Allergies; Singulair [Montelukast]; Sodium Lauryl Sulfate; Trees; Zofran [Ondansetron Hcl (Pf)] MEDICATIONS Current Outpatient Prescriptions: nystatin (MYCOSTATIN) cream Apply 1 application to affected area twice daily. triamcinolone acetonide (KENALOG) 0.1 % cream Apply 1 application to affected area three times daily. Apply sparingly to area for rash/itching. (Patient not taking: Reported on 04/11/2018 ) lactobacillus rhamnosus (CULTURELLE) 10 billion cell capsule Take 1 capsule by mouth once daily. (Patient not taking: Reported on 04/11/2018 ) methylcellulose, with sugar, (CITRUCEL, SUCROSE,) oral powder Mix 1 heaping teaspoon into 8 ox of water and take by mouth once a day (Patient not taking: Reported on 04/08/2018 ) naproxen (NAPROSYN) 500 mg tablet Take 1 tablet by mouth twice daily with meals. FOR PAIN. TAKE WITH FOOD. (Patient not taking: Reported on 04/08/2018 ) folic acid 400 mcg tablet Take 400 mcg by mouth once daily. benzonatate (TESSALON PERLE) 100 mg capsule Take 1 capsule by mouth every 8 hours as needed for Cough. (Patient not taking: Reported on 03/16/2018 ) albuterol HFA (PROAIR HFA) 90 mcg/actuation inhaler Inhale 2 Puffs as instructed every 4 hours as needed for Wheezing/Shortness of Breath. CALCIUM CARBONATE/VITAMIN D3 (VITAMIN D-3 ORAL) Take by mouth. VITAMIN D-3 2,000 unit cap beclomethasone (QVAR) 80 mcg/actuation inhaler Inhale 2 Puffs as instructed twice daily. famotidine (PEPCID) 20 mg tablet Take 1 tablet by mouth at bedtime as needed. (Patient not taking: Reported on 05/05/2018 ) naproxen (NAPROSYN) 500 mg tablet Take 1 tablet by mouth twice daily as needed (for pain/inflammation). Take with food. (Patient not taking: Reported on 04/08/2018 ) ketotifen fumarate (ZADITOR) 0.025 % (0.035 %) ophthalmic solution Use 1 Drop in both eyes twice daily. As needed. (Patient not taking: Reported on 04/08/2018 ) escitalopram oxalate (LEXAPRO) 20 mg tablet Take 1 tablet by mouth once daily. (Patient not taking: Reported on 03/16/2018 ) fluticasone (FLONASE) 50 mcg/actuation nasal spray Use 2 Sprays in each nostril once daily. loratadine (CLARITIN) 10 mg tablet Take 1 tablet by mouth once daily. Hydrocortisone Acetate 1 % crea Apply 1 application to affected area twice daily. (Patient not taking: Reported on 04/11/2018 ) Multivitamin capsule Take 1 capsule by mouth once daily. No current facility-administered medications for this visit. SOCIAL HISTORY Social History Marital status: Single Spouse name: Years of education: GED Number of children: 0 Occupational History Occupation Employer Comment Unemployed Social History Main Topics Smoking status: Former Smoker Packs/day: 0.00 Years: 3.00 Types: Cigarettes Quit date: 03/03/2018 Smokeless tobacco: Never Used Comment: 2 weeks no cigarettes Alcohol use: Yes Comment: Seldom Drug use: No Sexual activity: Yes Partners with: Male control/protection: None REVIEW OF SYSTEMS All other reviewed and negative other than HPI. OBJECTIVE: BP 120/80 Pulse 78 Temp 37.1 ?C (98.7 ?F) (Left Tympanic) Resp 16 Wt 86.6 kg (191 lb) BMI 29.91 kg/m? APPEARANCE Well appearing, alert, in no acute distress, well- hydrated, well nourished. EYES PERRLA, conjunctiva and sclera normal. EARS External ears normal, canals clear NOSE/SINUS Nares normal. Septum midline. Mucosa normal. No drainage or sinus tenderness. THROAT normal, no erythema NECK Supple, no adenopathy; thyroid symmetric, normal size, no bruits HEART RRR with normal S1 and S2, no murmurs, no gallops, no JVD appreciated LUNG clear to auscultation ABDOMEN bowel sounds normoactive, no bruits, soft, non-tender, non-distended, without organomegaly or palpable masses, no tenderness to palpation ASSESSMENT/PLAN: 1. Fatigue, unspecified type - ICD9: 780.79, ICD10: R53.83 Advise picking up potassium prescription and following instructions from ER discharge Reviewed red flags and when to seek care sooner in ER F/u with PCP as scheduled The patient indicates understanding of these issues and agrees with the plan. Reviewed red flags and when to seek care sooner. Lennox Belcher PA-C Referring Provider: SELF [[id number]] Allergies As of Date: 06/10/2018 Noted Allergy Reaction ANTI-BACTERIAL CLEANSING (BENZETH*10/26/2012 2 - Rash BEES 07/16/2010 16 - Unknown Comments: Listed on records from Samantha Hood BENZALKONIUM CHLORIDE 09/08/2012 14 - Other: See Comments Comments: Skin irritations CLINDAMYCIN 03/27/2018 8 - GI Upset DOXYCYCLINE 12/13/2012 8 - GI Upset Comments: stomach cramps DUST MITES 04/26/2012 16 - Unknown Comments: Dust mites and cockroaches FLAGYL (METRONIDAZOLE HCL) 06/20/2012 4 - Hives HAND LAWN CARE SPECIALIST (ETHYL ALCOHOL (SK*11/04/2009 2 - Rash Comments: PT HAS SENSITIVE SKIN. O.K. FOR MEDICAL PROFESSIONAL TO USE HAND LAWN CARE SPECIALIST AND THEN TOUCH HER, BUT SHE HERSELF DOES NOT USE IT. IODINE 02/18/2011 2 - Rash LACTOSE INTOLERANCE (LACTASE) 11/04/2009 LATEX, NATURAL RUBBER 03/17/2018 2 - Rash SAUK-SUIATTLE 12/07/2017 10 - Anaphylaxis METRONIDAZOLE 04/11/2018 4 - Hives MOLD 04/26/2012 16 - Unknown MORPHINE 03/02/2011 9 - Itching PENICILLIN 06/18/2016 16 - Unknown pet dander [Other] 10/20/2011 16 - Unknown Comments: Cat, Dog, Horse PREDNISONE 08/26/2012 14 - Other: See Comments Comments: Moodiness, restlessness, states feels like crap all over. SEASONAL ALLERGIES 11/04/2009 16 - Unknown Comments: Trees, grasses, weeds, ragweed. SINGULAIR (MONTELUKAST) 12/07/2017 16 - Unknown Comments: Possible rash SODIUM LAURYL SULFATE 09/30/2010 2 - Rash Comments: Skin irritation to scalp TREES 05/11/2012 14 - Other: See Comments ZOFRAN (ONDANSETRON HCL (PF)) 03/02/2011 14 - Other: See Comments Comments: Zofran causes cramping and constipation Date Reviewed: 06/10/2018 Reviewed by: Geni Swift Ma - Fully Assessed Reason for Visit: Fatigue [46] Reason For Visit History Recorded Primary Visit Diagnosis:Fatigue, unspecified type [R53.83] Prescriptions as of 06/10/2018 Sig: NYSTATIN 100,000 UNIT/GRAM TO* Apply 1 application to affect* TRIAMCINOLONE ACETONIDE 0.1 %* Apply 1 application to affect* Patient not taking: Reported on 04/11/2018 LACTOBACILLUS RHAMNOSUS GG 10* Take 1 capsule by mouth once * Patient not taking: Reported on 04/11/2018 METHYLCELLULOSE (WITH SUGAR) * Mix 1 heaping teaspoon into 8* Patient not taking: Reported on 04/08/2018 NAPROXEN 500 MG TABLET Take 1 tablet by mouth twice * Patient not taking: Reported on 04/08/2018 FOLIC ACID 400 MCG TABLET Take 400 mcg by mouth once da* BENZONATATE 100 MG CAPSULE Take 1 capsule by mouth every* Patient not taking: Reported on 03/16/2018 ALBUTEROL SULFATE HFA 90 MCG/* Inhale 2 Puffs as instructed * VITAMIN D-3 ORAL Take by mouth. VITAMIN D3 2,000 UNIT CAPSULE BECLOMETHASONE DIPROPIONATE 8* Inhale 2 Puffs as instructed * FAMOTIDINE 20 MG TABLET Take 1 tablet by mouth at bed* Patient not taking: Reported on 05/05/2018 NAPROXEN 500 MG TABLET Take 1 tablet by mouth twice * Patient not taking: Reported on 04/08/2018 KETOTIFEN 0.025 % (0.035 %) E* Use 1 Drop in both eyes twice* Patient not taking: Reported on 04/08/2018 ESCITALOPRAM 20 MG TABLET Take 1 tablet by mouth once d* Patient not taking: Reported on 03/16/2018 FLUTICASONE 50 MCG/ACTUATION * Use 2 Sprays in each nostril * LORATADINE 10 MG TABLET Take 1 tablet by mouth once d* HYDROCORTISONE ACETATE 1 % TO* Apply 1 application to affect* Patient not taking: Reported on 04/11/2018 MULTIVITAMIN CAPSULE Take 1 capsule by mouth once * Problem List As Of Date 06/10/2018 Noted Resolved Frequency of urination [R35.0] INVALID FOR*10/20/2011 Pelvic pain in female [R10.2] INVALID FOR*10/20/2011 Microscopic hematuria [R31.29] INVALID FOR*09/15/2016 Other hammer toe (acquired) [M20.40] INVALID FOR*10/20/2011 Hallux valgus (acquired) [M20.10] INVALID FOR* Internal hemorrhoids without mention of complic*INVALID FOR*10/20/2011 Diarrhea [R19.7] INVALID FOR*10/20/2011 Abdominal pain, generalized [R10.84] INVALID FOR*10/20/2011 Low back pain [M54.5] INVALID FOR* Closed fracture of metatarsal bone(s) [S92.309A]INVALID FOR*09/15/2016 Tendonitis [M77.9] INVALID FOR*09/15/2016 Acne Vulgaris: Grade III Inflammatory and Comed*INVALID FOR*09/15/2016 Other seborrheic dermatitis [L21.8] INVALID FOR*09/15/2016 History of cold-induced urticaria [Z87.2] INVALID FOR* Seborrhea [L21.9] INVALID FOR*09/15/2016 Eczematous dermatitis [L30.9] INVALID FOR*09/15/2016 Xerosis cutis [L85.3] INVALID FOR*09/15/2016 Backache, unspecified [M54.9] INVALID FOR*09/15/2016 Asthma [J45.909] INVALID FOR* Attention-deficit hyperactivity disorder, predo*INVALID FOR* Pain disorder with psychological component [F45*INVALID FOR* Adjustment disorder with mixed anxiety and depr*INVALID FOR* Chronic midline low back pain without sciatica *INVALID FOR* Cervicalgia [M54.2] INVALID FOR* Degeneration of cervical intervertebral disc [M*INVALID FOR* Allergic rhinitis [J30.9] INVALID FOR* Letter Text Lennox Belcher PA-C Urgent Care [address] [facility] [address] Dept: [phone] 06/10/2018 Angelica Andujar [address] [facility] [address] [facility] [address] To Whom it May Concern: This is to certify that Angelica Andujar was seen at our office for medical care. If you have any questions please feel free to call. Sincerely: Lennox Belcher PA-C Encounter Status:Closed by LENNOX BELCHER PA-C on 06/10/18 EMERGENCY DEPARTMENT Observed: 06/08/2018 Status: F Source: [place] SUMMARY 11:38 PM [facility] REPOSITORY [facility] Medical Records Department [address] [place] [address] Emergency Department Summary 06/08/18 2156 MR#: [id number] Acct: [id number] Name: ANGELICA ANDUJAR Rep #: [id number] : 1980 37 From: Juana Christopher MD PCP: SAMANTHA MENON [facility] Status: DEP ER - ER Visit Summary Date of Service: 06/08/18 Chief Complaint: Lightheaded, ringing in ear History of Present Illness: The patient is a 37 F who states he became lightheaded early this morning at work. Symptoms seem to improve, but then returned again this evening. She states she had ringing in her left ear earlier that was a very brief episode. That is resolved now. Patient denies vertigo symptoms. She states she had similar symptoms in the past with dehydration. She is also complaining of a rash to the perineal area that she thinks is from leaving a pad on for too long. Physical Examination: Vital signs unremarkable. Patient sitting upright in bed no acute distress. Head and neck examination normal. Heart is regular rate and rhythm. On lung sounds are clear. Abdomen is soft nontender. examination reveals mild skin erythema consistent with contact dermatitis. No blisters or lesions. Neuro exam is normal. Test Results: EKG is sinus bradycardia at 58 bpm with no sign of acute ischemia. CBC and chemistry studies results significant only for potassium of 3.4. Urinalysis is normal. Emergency Department Course and Treatment: Patient is given IV fluids. Repeat evaluation she does feel improved. She is up and ambulate in the ED without difficulty. She will be given 60 mg of potassium chloride here, but no prescription needed for home. She is to increase fluids over the next several days. Treatment Plan: [] Disposition: Discharge Impression: 1. Lightheadedness, improved This note was generated with [employer] dictation software. It may contain incorrect words, spelling, and punctuation that were not noted in review of the chart prior to signing ED Disposition - Plan for ED Patient: Chief Complaint: General Illness Referrals: Katharina Bejarano,Samantha Hood [Primary Care Provider] - What to do if you have Problems For any increased pain, shortness of breath, bleeding, nausea or vomiting, chest pain, or any unexpected problems, contact your Primary Care Provider. Call [facility] ([phone]) or report to the closest Emergency Room. Call 911 if necessary. 06/08/182337 <Electronically signed by Juana Christopher MD> Date Juana Christopher MD Cosigner Signature (If Indicated): Date CC: SAMANTHA BEJARANO DISCHARGE INSTRUCTION Observed: 06/08/2018 Status: F Source: [place] 9:58 PM [facility] REPOSITORY [facility] Medical Records Department [address] [place] [address] Discharge Instruction 06/08/182157 MR#: [id number] Acct: [id number] Name: ANGELICA ANDUJAR Rep #: [id number] : 1980 37 From: Juana Christopher MD PCP: SAMANTHA BEJARANO Status: REG ER ED Disposition - Plan for ED Patient: Disposition: Home or Assisted Living Chief Complaint: General Illness Instructions: ED Dizziness [facility] Referrals: Katharina Bejarano,Samantha Hood [Primary Care Provider] - As Needed What to do if you have Problems For any increased pain, shortness of breath, bleeding, nausea or vomiting, chest pain, or any unexpected problems, contact your Primary Care Provider. Call [facility] ([phone]) or report to the closest Emergency Room. Call 911 if necessary. 06/08/182157 <Electronically signed by Juana Christopher MD> Date Juana Christopher MD Cosigner Signature (If Indicated): Date CC: SAMANTHA HOOD [facility] CBC W/DIFF, AUTOMATED Collected: 06/08/2018 Status: F Source: [place] 8:34 PM [facility] REPOSITORY TYPE CODE TESTS RESULT OUT OF RANGE REFERENCE UNITS LAB L100.1000 4.4-11.0 K/mm3 Normal WBC 8.5 LAB L100.1200 4.2-5.4 M/mm3 Normal RBC 4.78 LAB L100.1300 12.0-15.0 g/dl Normal HGB 13.4 LAB L100.1400 37-47 % Normal HCT 41.3 LAB L100.1500 81-99 fL Normal MCV 86.4 LAB L100.1600 27.0-32.0 pg Normal MCH 28.0 LAB L100.1700 32-36 g/gl Normal MCHC 32.4 LAB L100.1810 11.6-14.6 % Normal RDW CV 13.2 LAB L100.1820 35.1-43.9 fl Normal RDW SD 42.0 LAB L100.1900 150-450 K/mm3 Normal PLT 228 LAB L100.2000 6.2-12.0 fl Normal MPV 11.2 LAB L100.2100 47-70 % Normal NEUT% 63.5 LAB L100.2200 19-41 % Normal LY% 26.8 LAB L100.2300 0-10 % Normal MONO% 7.4 LAB L100.2400 0-5 % Normal EO% 2.0 LAB L100.2500 0-1 % Normal BASO% 0.2 LAB L100.2550 0.0-0.9 % Normal IM GRAN % 0.100 Result Comment: IG% - Immature Granulocytes (promyelocytes, myelocytes and metamyelocytes) > 1% indicates that a LEFT SHIFT is Present. LAB L100.2620 2.0-7.7 X10 3/uL Normal Absolute Neut 5.4 LAB L100.2720 0.83-4.51 X10 3/ul Normal Absolute Lymph 2.27 Performed By: #### L100.0100 #### [facility] [place], [address] BASIC METABOLIC Collected: 06/08/2018 Status: F Source: ALNI PROFILE (BMP) 8:34 PM [facility] REPOSITORY TYPE CODE TESTS RESULT OUT OF RANGE REFERENCE UNITS LAB L501.0100 74-106 mg/dL Normal GLU 74 Result Comment: Please note revised GLUCOSE reference range effective 2017. LAB L501.1000 7-18 mg/dL Normal BUN 15 LAB L501.1100 0.55-1.02 mg/dL Normal CREAT,SERUM 0.84 Result Comment: The validity of the calculated GFR AND GFRAA in patients over 70 years has not been determined. Clinical correlation is essential. LAB L501.1110 >60 mL/min Normal EST GFR 80 Result Comment: Non- GFR Calc LAB L501.1115 >60 mL/min Normal EST GFR - AA 97 Result Comment: GFR Calc LAB L501.1255 ml/min Normal Estimated CRCL 87.44 LAB L501.1300 10-20 RATIO Normal BUN/CRE 17.9 LAB L501.2200 8.5-10 mg/dL Normal .1 CA 8.7 LAB L501.5300 136-14 mmol/L Normal 5 NA 141 LAB L501.5600 3.5-5. mmol/L Low 1 K 3.4 LAB L501.5900 98-107 mmol/L Normal CL 106 LAB L501.6100 21.0-3 mmol/L Normal 2.0 CO2 28.0 LAB L501.6200 5-15 Normal GAP 7 Performed By: #### L500.2500 #### [facility] [address] [place], [place], [id number] ,SERUM,HCG QUALI. Collected: Status: F Source: [place]I 06/08/2018 8:34 PM [facility] REPOSITORY TYPE CODE TESTS RESULT OUT OF REFERENCE UNITS RANGE LAB L700.6700 =>Qualitative mIU/mL Normal HCG Qual < 1 triggr LAB L700.7000 0-9 Nonpreg Negative Normal HCGSQUAL NEGATIVE Performed By: #### L700.6800 #### [facility] [address] [place], [place], [address] URINALYSIS, COMPLETE Collected: 06/08/2018 Status: F Source: [place]I 8:05 PM [facility] REPOSITORY Order Comment: Order Date: 10/04/18 How was Urine Obtained? CLEAN CATCH TYPE CODE TESTS RESULT OUT OF RANGE REFERENCE UNITS LAB L400.3000 Yellow COLOR Normal Yellow LAB L400.3050 Clear Normal CLARITY Clear LAB L400.3200 Normal mg/dl Normal GLUCOSE, UR Normal LAB L400.3300 Negative mg/dL Normal BILIRUBIN URINE Negative LAB L400.3400 Negative mg/dl Normal KETONE UR Negative LAB L400.3465 1.002-1.030 Normal SP.GR. DIPSTX 1.005 LAB L400.3550 5.0 - 8.0 pH UR Normal 7.0 LAB L400.3600 Negative mg/dl PROT Normal DIPSTX Negative LAB L400.3700 Normal mg/dl Normal UROBILI Normal LAB L400.3750 Negative Normal NITRITE UR Negative LAB L400.3780 Negative /ul Normal OCCULT BLOOD-UR Negative LAB L400.3800 Negative /ul LEUK Normal ESTERASE Negative LAB L400.4050 0-5 /hpf WBC 0 Normal SEEN LAB L400.4100 0-5 /hpf 0 Normal RBC-UA SEEN LAB L400.4150 5-10 /hpf SQUAM Normal EPI 0-5 SEEN LAB L400.4300 None Seen /hpf 0 Normal BACTERIA SEEN LAB L400.4350 <or=2+ /hpf 0 Normal MUCUS, URINE SEEN Performed By: #### L400.0001 #### [facility] [address] [facility] [facility] [place], [address] SYPHILIS IGG WITH Collected: 06/01/2018 Status: F Source: [facility] 12:10 PM [facility] REPOSITORY TYPE CODE TESTS RESULT OUT OF REFERENCE UNITS RANGE LAB SYPHQL Nonreactive Syphilis IgG, Nonreactive Qual Result Comment: No serological evidence of infection with T. pallidum. LAB SYPHLG AI Syphilis IgG <0.2 Result Comment: Antibody index is interpreted as follows: Non reactive SPECIMENS <=0.8 Weak reactive SPECIMENS 0.9 to 5.9 Reactive SPECIMENS >=6.0 Performed By: #### SYPHGX, HBSAG, HIV12C, HCQPCR #### [facility] [address] [place], [place] [address] HEPATITIS B SURF. AG Collected: 06/01/2018 Status: F Source: [place] 12:10 PM [facility] REPOSITORY TYPE CODE TESTS RESULT OUT OF REFERENCE UNITS RANGE LAB HBSAG Negative Hepatitis B Negative Surf. Ag Performed By: #### SYPHGX, HBSAG, HIV12C, HCQPCR #### [place] [address] [place] [address] HIV 12 COMBO (AG/AB) Collected: 06/01/2018 Status: F Source: [place] 12:10 PM [facility] REPOSITORY TYPE CODE TESTS RESULT OUT OF REFERENCE UNITS RANGE LAB HVAGAB Non Reactive HIV Non Reactive 12 Ag/Ab Result Comment: (NOTE) HIV Information: [place] Rev. Code 3701.243(E): This information has been disclosed to you from confidential records protected from disclosure by state law. You shall make no further disclosure of this information without the specific, written, and informed release of the individual to whom it pertains, or as otherwise permitted by state law. A general authorization for the release of medical or other information is not sufficient for the purpose of the release of HIV test results or diagnoses. Performed By: #### SYPHGX, HBSAG, HIV12C, HCQPCR #### [place] [address] [place] [address] HEPATITIS C RNA Collected: 06/01/2018 Status: F Source: [place] 12:10 [facility] REPOSITORY TYPE CODE TESTS RESULT OUT OF REFERENCE UNITS RANGE LAB HCQPCR IU/mL Hepatitis C RNA HCV RNA not detected by PCR. Result Comment: Reference Range: Negative for HCV RNA The Linear Range of this assay is 15 IU/mL to 100,000,000 IU/mL. 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 She has had some vaginal discharge as well. Pt has chronic vaginitis. She has intermittent abdominal cramping. LMP sometime in may she isn't sure. She doesn't think she is . Review of Systems Genitourinary: Positive for dysuria and frequency. All other systems reviewed and are negative. PAST MEDICAL HISTORY Diagnosis Date - 11/2009 - Anxiety - Asthma - Depression - Recurrent UTI - Seasonal allergies - STD (sexually transmitted disease) Current Outpatient Prescriptions: nystatin (MYCOSTATIN) cream Apply 1 application to affected area twice daily. Disp: 1 Tube Rfl: 1 VITAMIN D-3 2,000 unit cap Disp: Rfl: 0 fluticasone (FLONASE) 50 mcg/actuation nasal spray Use 2 Sprays in each nostril once daily. Disp: 1 Bottle Rfl: 11 Multivitamin capsule Take 1 capsule by mouth once daily. Disp: Rfl: triamcinolone acetonide (KENALOG) 0.1 % cream Apply 1 application to affected area three times daily. Apply sparingly to area for rash/itching. (Patient not taking: Reported on 04/11/2018 ) Disp: 80 g Rfl: 1 lactobacillus rhamnosus (CULTURELLE) 10 billion cell capsule Take 1 capsule by mouth once daily. (Patient not taking: Reported on 04/11/2018 ) Disp: 30 capsule Rfl: 0 methylcellulose, with sugar, (CITRUCEL, SUCROSE,) oral powder Mix 1 heaping teaspoon into 8 ox of water and take by mouth once a day (Patient not taking: Reported on 04/08/2018 ) Disp: 454 g Rfl: 0 naproxen (NAPROSYN) 500 mg tablet Take 1 tablet by mouth twice daily with meals. FOR PAIN. TAKE WITH FOOD. (Patient not taking: Reported on 04/08/2018 ) Disp: 30 tablet Rfl: 0 folic acid 400 mcg tablet Take 400 mcg by mouth once daily. Disp: Rfl: benzonatate (TESSALON PERLE) 100 mg capsule Take 1 capsule by mouth every 8 hours as needed for Cough. (Patient not taking: Reported on 03/16/2018 ) Disp: 30 capsule Rfl: 0 albuterol HFA (PROAIR HFA) 90 mcg/actuation inhaler Inhale 2 Puffs as instructed every 4 hours as needed for Wheezing/Shortness of Breath. Disp: 1 Inhaler Rfl: 0 CALCIUM CARBONATE/VITAMIN D3 (VITAMIN D-3 ORAL) Take by mouth. Disp: Rfl: beclomethasone (QVAR) 80 mcg/actuation inhaler Inhale 2 Puffs as instructed twice daily. Disp: 1 Inhaler Rfl: 0 famotidine (PEPCID) 20 mg tablet Take 1 tablet by mouth at bedtime as needed. (Patient not taking: Reported on 05/05/2018 ) Disp: Rfl: 0 naproxen (NAPROSYN) 500 mg tablet Take 1 tablet by mouth twice daily as needed (for pain/inflammation). Take with food. (Patient not taking: Reported on 04/08/2018 ) Disp: 60 tablet Rfl: 1 ketotifen fumarate (ZADITOR) 0.025 % (0.035 %) ophthalmic solution Use 1 Drop in both eyes twice daily. As needed. (Patient not taking: Reported on 04/08/2018 ) Disp: 1 Bottle Rfl: 5 escitalopram oxalate (LEXAPRO) 20 mg tablet Take 1 tablet by mouth once daily. (Patient not taking: Reported on 03/16/2018 ) Disp: Rfl: 0 loratadine (CLARITIN) 10 mg tablet Take 1 tablet by mouth once daily. Disp: 30 tablet Rfl: 11 Hydrocortisone Acetate 1 % crea Apply 1 application to affected area twice daily. (Patient not taking: Reported on 04/11/2018 ) Disp: 30 g Rfl: 2 No current facility-administered medications for this visit. PAST SURGICAL HISTORY Procedure Laterality Date - COLONOSCOPY W/BX 03/02/11 - EGD W/O OR W/BRUSH/WASH 11/14/2012 EGD - MED INC ALL EX DRUG 11/2009 - PAST SURGICAL HISTORY OF WISDOM TEETH FAMILY HISTORY Problem Relation Age of Onset - Alcohol/Drug Mother - Arthritis Mother - Asthma Mother - Cancer Mother CANCER - Hypertension Mother - Stroke Mother - Cancer Father LUNG CANCER - Emphysema Father - Asthma Brother - Breast Cancer Maternal Aunt - Hypertension Brother Social History Substance Use Topics - Smoking status: Former Smoker Years: 3.00 Types: Cigarettes Quit date: 03/03/2018 - Smokeless tobacco: Never Used Comment: 2 weeks no cigarettes - Alcohol use Yes Comment: Seldom BP 108/80 Pulse 80 Temp 36.9 ?C (98.5 ?F) (Left Tympanic) Resp 16 Wt 84.9 kg (187 lb 3.2 oz) SpO2 98% BMI 29.32 kg/m? Objective Physical Exam Constitutional: She is oriented to person, place, and time and well-developed, well-nourished, and in no distress. HENT: Head: Normocephalic and atraumatic. Cardiovascular: Normal rate, regular rhythm and normal heart sounds. Pulmonary/Chest: Effort normal and breath sounds normal. Genitourinary: Vagina normal, uterus normal, cervix normal, right adnexa normal, left adnexa normal and vulva normal. Vagina exhibits normal mucosa, no exudate and no lesion. No vaginal discharge found. Neurological: She is alert and oriented to person, place, and time. Skin: Skin is warm and dry. Psychiatric: Affect normal. Nursing note and vitals reviewed. ASSESSMENT/PLAN: 1. Dysuria - ICD9: 788.1, ICD10: R30.0 Urine dip negative. Pt requested a pelvic exam. I told her that everytime she comes to urgent care she does request a pelvic exam, which should be done by her obgyn since this is a chronic issue for her. I did do one today but told her she should not have chronic pelvic exams done here. Normal exam, will wait for cultures. - UA DIP, URINE (POC) - URINE CULTURE - VAGINAL PATHOGENS DNA PROBES - GC/CHLAMYDIA DNA DET Souleymane Mclaughlin PA-C VAG PATHOGENS DNA Collected: 05/25/2018 Status: F Source: [place] 6:58 PM [facility] REPOSITORY TYPE CODE TESTS RESULT OUT OF REFERENCE UNITS RANGE LAB TVDNA Negative for Trichomonas Negative vaginalis by DNA Trich vag for Trichomonas Probe DNA Probe vaginalis by DNA Probe LAB GVDNA Negative for Gardnerella Negative vaginalis by DNA Gigi vag for Gardnerella Probe DNA Probe vaginalis by DNA Probe LAB CANDNA Negative for Misty species Negative by DNA Probe Misty for Misty sp DNA Probe species by DNA Probe Performed By: #### VAGDNA #### [facility] [address] [place], [place] [address] Observed: 05/25/2018 Status: F Source: [place] URINE CULTURE 6:58 PM [facility] REPOSITORY Sp. Request/Comment: - Specimen received in preservative Culture Result - <10,000 CFU/ml Normal urogenital keisha Performed By: #### URCUL #### [facility] [address] [place], [place] [address] GC/CHLAMYDIA AMPLIF Collected: 05/25/2018 Status: F Source: [place] 6:58 PM [facility] REPOSITORY TYPE CODE TESTS RESULT OUT OF REFERENCE UNITS RANGE LAB GCCTSR GC/Chlam Amp Cervix Source LAB GCAMPL GC Negative Amplification for Neisseria gonorrhoeae by amplification. LAB CLAMPL Chlamydia Negative Amplif for Chlamydia trachomatis by amplification. Performed By: #### GCCT #### [facility] [address] [place], [place] [address] CNOV Observed: 05/25/2018 Status: COMPLETED Source: [place] 6:30 PM [facility] REPOSITORY Office Visit (WSTR) ANGELICA ANDUJAR ([id number]) 1980 F Date Time Provider Department 05/25/18 6:30 PM SOULEYMANE MCLAUGHLIN) WSTR During your visit today, we recorded the following information about you: Temperature Pulse Respiration Blood pressure 98.5 degrees 80/minute 16/minute 108/80 Weight 84.9 kg Souleymane Mclaughlin PA-C 05/25/2018 7:21 PM Signed Subjective HPI Pt presents with urinary frequency and burning for 2 days. She has had some vaginal discharge as well. Pt has chronic vaginitis. She has intermittent abdominal cramping. LMP sometime in may she isn't sure. She doesn't think she is . Review of Systems Genitourinary: Positive for dysuria and frequency. All other systems reviewed and are negative. PAST MEDICAL HISTORY Diagnosis Date - 11/2009 - Anxiety - Asthma - Depression - Recurrent UTI - Seasonal allergies - STD (sexually transmitted disease) Current Outpatient Prescriptions: nystatin (MYCOSTATIN) cream Apply 1 application to affected area twice daily. Disp: 1 Tube Rfl: 1 VITAMIN D-3 2,000 unit cap Disp: Rfl: 0 fluticasone (FLONASE) 50 mcg/actuation nasal spray Use 2 Sprays in each nostril once daily. Disp: 1 Bottle Rfl: 11 Multivitamin capsule Take 1 capsule by mouth once daily. Disp: Rfl: triamcinolone acetonide (KENALOG) 0.1 % cream Apply 1 application to affected area three times daily. Apply sparingly to area for rash/itching. (Patient not taking: Reported on 04/11/2018 ) Disp: 80 g Rfl: 1 lactobacillus rhamnosus (CULTURELLE) 10 billion cell capsule Take 1 capsule by mouth once daily. (Patient not taking: Reported on 04/11/2018 ) Disp: 30 capsule Rfl: 0 methylcellulose, with sugar, (CITRUCEL, SUCROSE,) oral powder Mix 1 heaping teaspoon into 8 ox of water and take by mouth once a day (Patient not taking: Reported on 04/08/2018 ) Disp: 454 g Rfl: 0 naproxen (NAPROSYN) 500 mg tablet Take 1 tablet by mouth twice daily with meals. FOR PAIN. TAKE WITH FOOD. (Patient not taking: Reported on 04/08/2018 ) Disp: 30 tablet Rfl: 0 folic acid 400 mcg tablet Take 400 mcg by mouth once daily. Disp: Rfl: benzonatate (TESSALON PERLE) 100 mg capsule Take 1 capsule by mouth every 8 hours as needed for Cough. (Patient not taking: Reported on 03/16/2018 ) Disp: 30 capsule Rfl: 0 albuterol HFA (PROAIR HFA) 90 mcg/actuation inhaler Inhale 2 Puffs as instructed every 4 hours as needed for Wheezing/Shortness of Breath. Disp: 1 Inhaler Rfl: 0 CALCIUM CARBONATE/VITAMIN D3 (VITAMIN D-3 ORAL) Take by mouth. Disp: Rfl: beclomethasone (QVAR) 80 mcg/actuation inhaler Inhale 2 Puffs as instructed twice daily. Disp: 1 Inhaler Rfl: 0 famotidine (PEPCID) 20 mg tablet Take 1 tablet by mouth at bedtime as needed. (Patient not taking: Reported on 05/05/2018 ) Disp: Rfl: 0 naproxen (NAPROSYN) 500 mg tablet Take 1 tablet by mouth twice daily as needed (for pain/inflammation). Take with food. (Patient not taking: Reported on 04/08/2018 ) Disp: 60 tablet Rfl: 1 ketotifen fumarate (ZADITOR) 0.025 % (0.035 %) ophthalmic solution Use 1 Drop in both eyes twice daily. As needed. (Patient not taking: Reported on 04/08/2018 ) Disp: 1 Bottle Rfl: 5 escitalopram oxalate (LEXAPRO) 20 mg tablet Take 1 tablet by mouth once daily. (Patient not taking: Reported on 03/16/2018 ) Disp: Rfl: 0 loratadine (CLARITIN) 10 mg tablet Take 1 tablet by mouth once daily. Disp: 30 tablet Rfl: 11 Hydrocortisone Acetate 1 % crea Apply 1 application to affected area twice daily. (Patient not taking: Reported on 04/11/2018 ) Disp: 30 g Rfl: 2 No current facility-administered medications for this visit. PAST SURGICAL HISTORY Procedure Laterality Date - COLONOSCOPY W/BX 03/02/11 - EGD W/O OR W/BRUSH/WASH 11/14/2012 EGD - MED INC ALL EX DRUG 11/2009 - PAST SURGICAL HISTORY OF WISDOM TEETH FAMILY HISTORY Problem Relation Age of Onset - Alcohol/Drug Mother - Arthritis Mother - Asthma Mother - Cancer Mother CANCER - Hypertension Mother - Stroke Mother - Cancer Father LUNG CANCER - Emphysema Father - Asthma Brother - Breast Cancer Maternal Aunt - Hypertension Brother Social History Substance Use Topics - Smoking status: Former Smoker Years: 3.00 Types: Cigarettes Quit date: 03/03/2018 - Smokeless tobacco: Never Used Comment: 2 weeks no cigarettes - Alcohol use Yes Comment: Seldom BP 108/80 Pulse 80 Temp 36.9 ?C (98.5 ?F) (Left Tympanic) Resp 16 Wt 84.9 kg (187 lb 3.2 oz) SpO2 98% BMI 29.32 kg/m? Objective Physical Exam Constitutional: She is oriented to person, place, and time and well-developed, well-nourished, and in no distress. HENT: Head: Normocephalic and atraumatic. Cardiovascular: Normal rate, regular rhythm and normal heart sounds. Pulmonary/Chest: Effort normal and breath sounds normal. Genitourinary: Vagina normal, uterus normal, cervix normal, right adnexa normal, left adnexa normal and vulva normal. Vagina exhibits normal mucosa, no exudate and no lesion. No vaginal discharge found. Neurological: She is alert and oriented to person, place, and time. Skin: Skin is warm and dry. Psychiatric: Affect normal. Nursing note and vitals reviewed. ASSESSMENT/PLAN: 1. Dysuria - ICD9: 788.1, ICD10: R30.0 Urine dip negative. Pt requested a pelvic exam. I told her that everytime she comes to urgent care she does request a pelvic exam, which should be done by her obgyn since this is a chronic issue for her. I did do one today but told her she should not have chronic pelvic exams done here. Normal exam, will wait for cultures. - UA DIP, URINE (POC) - URINE CULTURE - VAGINAL PATHOGENS DNA PROBES - GC/CHLAMYDIA DNA DET Souleymane Mclaughlin PA-C Referring Provider: SELF [[id number]] Allergies As of Date: 05/25/2018 Noted Allergy Reaction ANTI-BACTERIAL CLEANSING (BENZETH*10/26/2012 2 - Rash BEES 07/16/2010 16 - Unknown Comments: Listed on records from Samantha Hood BENZALKONIUM CHLORIDE 09/08/2012 14 - Other: See Comments Comments: Skin irritations CLINDAMYCIN 03/27/2018 8 - GI Upset DOXYCYCLINE 12/13/2012 8 - GI Upset Comments: stomach cramps DUST MITES 04/26/2012 16 - Unknown Comments: Dust mites and cockroaches FLAGYL (METRONIDAZOLE HCL) 06/20/2012 4 - Hives HAND LAWN CARE SPECIALIST (ETHYL ALCOHOL (SK*11/04/2009 2 - Rash Comments: PT HAS SENSITIVE SKIN. O.K. FOR MEDICAL PROFESSIONAL TO USE HAND LAWN CARE SPECIALIST AND THEN TOUCH HER, BUT SHE HERSELF DOES NOT USE IT. IODINE 02/18/2011 2 - Rash LACTOSE INTOLERANCE (LACTASE) 11/04/2009 LATEX, NATURAL RUBBER 03/17/2018 2 - Rash SAUK-SUIATTLE 12/07/2017 10 - Anaphylaxis METRONIDAZOLE 04/11/2018 4 - Hives MOLD 04/26/2012 16 - Unknown MORPHINE 03/02/2011 9 - Itching PENICILLIN 06/18/2016 16 - Unknown pet dander [Other] 10/20/2011 16 - Unknown Comments: Cat, Dog, Horse PREDNISONE 08/26/2012 14 - Other: See Comments Comments: Moodiness, restlessness, states feels like crap all over. SEASONAL ALLERGIES 11/04/2009 16 - Unknown Comments: Trees, grasses, weeds, ragweed. SINGULAIR (MONTELUKAST) 12/07/2017 16 - Unknown Comments: Possible rash SODIUM LAURYL SULFATE 09/30/2010 2 - Rash Comments: Skin irritation to scalp TREES 05/11/2012 14 - Other: See Comments ZOFRAN (ONDANSETRON HCL (PF)) 03/02/2011 14 - Other: See Comments Comments: Zofran causes cramping and constipation Date Reviewed: 05/25/2018 Reviewed by: Geni Swift Ma - Fully Assessed Reason for Visit: UTI [116] Primary Visit Diagnosis:Dysuria [R30.0] Order(s):UA DIP, URINE (POC) [2105138] Order #: [id number] #:[id number] URINE CULTURE [SQURCUL] Order #: [id number] VAGINAL PATHOGENS DNA PROBES [SQVAGDNA] Order #: [id number] GC/CHLAMYDIA DNA DET [SQGCCAMP] Order #: [id number] Prescriptions as of 05/25/2018 Sig: NYSTATIN 100,000 UNIT/GRAM TO* Apply 1 application to affect* VITAMIN D3 2,000 UNIT CAPSULE FLUTICASONE 50 MCG/ACTUATION * Use 2 Sprays in each nostril * MULTIVITAMIN CAPSULE Take 1 capsule by mouth once * TRIAMCINOLONE ACETONIDE 0.1 %* Apply 1 application to affect* Patient not taking: Reported on 04/11/2018 LACTOBACILLUS RHAMNOSUS GG 10* Take 1 capsule by mouth once * Patient not taking: Reported on 04/11/2018 METHYLCELLULOSE (WITH SUGAR) * Mix 1 heaping teaspoon into 8* Patient not taking: Reported on 04/08/2018 NAPROXEN 500 MG TABLET Take 1 tablet by mouth twice * Patient not taking: Reported on 04/08/2018 FOLIC ACID 400 MCG TABLET Take 400 mcg by mouth once da* BENZONATATE 100 MG CAPSULE Take 1 capsule by mouth every* Patient not taking: Reported on 03/16/2018 ALBUTEROL SULFATE HFA 90 MCG/* Inhale 2 Puffs as instructed * VITAMIN D-3 ORAL Take by mouth. BECLOMETHASONE DIPROPIONATE 8* Inhale 2 Puffs as instructed * FAMOTIDINE 20 MG TABLET Take 1 tablet by mouth at bed* Patient not taking: Reported on 05/05/2018 NAPROXEN 500 MG TABLET Take 1 tablet by mouth twice * Patient not taking: Reported on 04/08/2018 KETOTIFEN 0.025 % (0.035 %) E* Use 1 Drop in both eyes twice* Patient not taking: Reported on 04/08/2018 ESCITALOPRAM 20 MG TABLET Take 1 tablet by mouth once d* Patient not taking: Reported on 03/16/2018 LORATADINE 10 MG TABLET Take 1 tablet by mouth once d* HYDROCORTISONE ACETATE 1 % TO* Apply 1 application to affect* Patient not taking: Reported on 04/11/2018 Problem List As Of Date 05/25/2018 Noted Resolved Frequency of urination [R35.0] INVALID FOR*10/20/2011 Pelvic pain in female [R10.2] INVALID FOR*10/20/2011 Microscopic hematuria [R31.29] INVALID FOR*09/15/2016 Other hammer toe (acquired) [M20.40] INVALID FOR*10/20/2011 Hallux valgus (acquired) [M20.10] INVALID FOR* Internal hemorrhoids without mention of complic*INVALID FOR*10/20/2011 Diarrhea [R19.7] INVALID FOR*10/20/2011 Abdominal pain, generalized [R10.84] INVALID FOR*10/20/2011 Low back pain [M54.5] INVALID FOR* Closed fracture of metatarsal bone(s) [S92.309A]INVALID FOR*09/15/2016 Tendonitis [M77.9] INVALID FOR*09/15/2016 Acne Vulgaris: Grade III Inflammatory and Comed*INVALID FOR*09/15/2016 Other seborrheic dermatitis [L21.8] INVALID FOR*09/15/2016 History of cold-induced urticaria [Z87.2] INVALID FOR* Seborrhea [L21.9] INVALID FOR*09/15/2016 Eczematous dermatitis [L30.9] INVALID FOR*09/15/2016 Xerosis cutis [L85.3] INVALID FOR*09/15/2016 Backache, unspecified [M54.9] INVALID FOR*09/15/2016 Asthma [J45.909] INVALID FOR* Attention-deficit hyperactivity disorder, predo*INVALID FOR* Pain disorder with psychological component [F45*INVALID FOR* Adjustment disorder with mixed anxiety and depr*INVALID FOR* Chronic midline low back pain without sciatica *INVALID FOR* Cervicalgia [M54.2] INVALID FOR* Degeneration of cervical intervertebral disc [M*INVALID FOR* Allergic rhinitis [J30.9] INVALID FOR* Encounter Status:Closed by SOULEYMANE MCLAUGHLIN PA-C on 05/25/18 12 LEAD ELECTROCARDIOGRAM Observed: 05/16/2018 Status: F Source: [place] 1:31 PM [facility] Cardiovascular Services [address] [place] [address] 12 Lead EKG 05/14/18 1302 MR#: [id number] Acct: [id number] Name: ANGELICA ANDUJAR Rep #: [id number] : 1980 37 From: Vidal Lepe MD Attending Dr: Status: DEP ER Ordering Dr: Stephan Witt MD Date: 05/14/18 Location: ED Sex: F C Admitted: Test Reason : FLANK PAIN Blood Pressure : / mmHG Vent. Rate : 062 BPM Atrial Rate : 062 BPM P-R Int : 144 ms QRS Dur : 082 ms QT Int : 428 ms P-R-T Axes : 046 032 017 degrees QTc Int : 434 ms Normal sinus rhythm Normal ECG Confirmed by VIDAL LEPE MD ([id number]), editor & co founder МАРИНА BRAR ([id number]) on 05/16/2018 1:31:40 PM Referred By: STEPHANIE Confirmed By:VIDAL LEPE MD 05/16/18 1331 Date Vidal Lepe MD CC: Stephan Witt MD; SAMANTHA HOOD [facility] Signed EMERGENCY DEPARTMENT Observed: 05/14/2018 Status: F Source: [place] SUMMARY 5:54 PM [facility] REPOSITORY [facility] Medical Records Department [address] [place] [address] Emergency Department Summary 05/14/18 1747 MR#: [id number] Acct: [id number] Name: ANGELICA ANDUJAR Rep #: [id number] : 1980 37 From: Ho Kathleen DO PCP: SAMANTHA HOOD [facility] Status: REG ER - ER Visit Summary Date of Service: 05/14/18 Chief Complaint: [] History of Present Illness: The patient is a 37 F [] Physical Examination: [] Test Results: [] Emergency Department Course and Treatment: [] Treatment Plan: [] Disposition: [] Impression: [] This note was generated with Bedloo dictation software. It may contain incorrect words, spelling, and punctuation that were not noted in review of the chart prior to signing ED Disposition - Plan for ED Patient: Disposition: Home or Assisted Living Chief Complaint: Flank Pain Diagnosis: Abdominal pain Instructions: ED Abdominal Pain Unkn Cause Referrals: Katharina Bejarano,Samantha Hood [Primary Care Provider] - What to do if you have Problems For any increased pain, shortness of breath, bleeding, nausea or vomiting, chest pain, or any unexpected problems, contact your Primary Care Provider. Call [facility] ([phone]) or report to the closest Emergency Room. Call 911 if necessary. 05/14/18 1754 <Electronically signed by Ho Kathleen DO> Date Ho Kathleen DO Cosigner Signature (If Indicated): Date CC: [facility] EMERGENCY DEPARTMENT Observed: 05/14/2018 Status: F Source: [place] SUMMARY 4:04 PM [facility] REPOSITORY [facility] Medical Records Department [address] [facility] [facility] [place] [address] Emergency Department Summary 05/14/18 1537 MR#: [id number] Acct: [id number] Name: ANGELICA ANDUJAR Rep #: [id number] : 1980 37 From: Stephan Witt MD PCP: SAMANTHA BEJARANO Status: REG ER - ER Visit Summary Date of Service: 05/14/18 Chief Complaint: Abdominal pain History of Present Illness: The patient is a 37 F with abdominal pain for several days. Pain is diffuse. Worse with eating. Associated with diarrhea. Patient also voices to me that she is unsure what she can eat. She feels like her food is harming her. She feels paranoid. She is not suicidal or homicidal, but she will not tell me that she feels safe at home. Denies drug use or alcohol use currently. Denies fevers. Denies any other associated symptoms. Denies any new or different medications. Physical Examination: Afebrile vital signs unremarkable. Patient alert and oriented. No acute distress. Mucous membranes moist. Heart regular rate and rhythm. Lungs clear. Abdomen soft and nontender. Skin appears normal. She is alert and oriented. Depressed mood and flat affect. Paranoid thoughts. Test Results: EKG showed sinus rhythm rate of 62. No sign of ischemia or infarction. CBC normal. CMP unremarkable. Lipase normal. Urinalysis unremarkable. Troponin normal. HCG negative. Alcohol and tox negative. CT abdomen showed no acute process. Emergency Department Course and Treatment: Patient had some medical complaints but also some associated psychological concerns. She was not overtly suicidal, but I did place precautions until evaluation was completed. Her medical workup was all unremarkable. She received morphine and Zofran and her symptoms improved. No new or different findings. Patient continues to have paranoid thoughts about what she is eating. She does not feel comfortable eating at home. I am concerned that she might not be able to take care of herself. She is not overtly suicidal or homicidal. I will have her evaluated by crisis. The oncoming doctor will follow up with their assessment. Treatment Plan: As above Disposition: Pending crisis evaluation Impression: 1. Abdominal pain 2. Psychosis This note was generated with Bedloo dictation software. It may contain incorrect words, spelling, and punctuation that were not noted in review of the chart prior to signing ED Disposition - Plan for ED Patient: Chief Complaint: Flank Pain Referrals: Katharina Bejarano,Samantha Hood [Primary Care Provider] - What to do if you have Problems For any increased pain, shortness of breath, bleeding, nausea or vomiting, chest pain, or any unexpected problems, contact your Primary Care Provider. Call [facility] ([phone]) or report to the closest Emergency Room. Call 911 if necessary. 05/14/18 1604 <Electronically signed by Stephan Witt MD> Date Stephan Witt MD Cosigner Signature (If Indicated): Date CC: [facility] CBC W/DIFF, AUTOMATED Collected: 05/14/2018 Status: F Source: [place] 1:10 PM [facility] REPOSITORY TYPE CODE TESTS RESULT OUT OF RANGE REFERENCE UNITS LAB L100.1000 4.4-11.0 K/mm3 Normal WBC 7.7 LAB L100.1200 4.2-5.4 M/mm3 Normal RBC 4.97 LAB L100.1300 12.0-15.0 g/dl Normal HGB 13.9 LAB L100.1400 37-47 % Normal HCT 42.9 LAB L100.1500 81-99 fL Normal MCV 86.3 LAB L100.1600 27.0-32.0 pg Normal MCH 28.0 LAB L100.1700 32-36 g/gl Normal MCHC 32.4 LAB L100.1810 11.6-14.6 % Normal RDW CV 12.9 LAB L100.1820 35.1-43.9 fl Normal RDW SD 40.8 LAB L100.1900 150-450 K/mm3 Normal PLT 231 LAB L100.2000 6.2-12.0 fl Normal MPV 10.9 LAB L100.2100 47-70 % High NEUT% 74.9 LAB L100.2200 19-41 % Low LY% 17.8 LAB L100.2300 0-10 % Normal MONO% 5.8 LAB L100.2400 0-5 % Normal EO% 1.2 LAB L100.2500 0-1 % Normal BASO% 0.3 LAB L100.2550 0.0-0.9 % Normal IM GRAN % 0.000 Result Comment: IG% - Immature Granulocytes (promyelocytes, myelocytes and metamyelocytes) > 1% indicates that a LEFT SHIFT is Present. LAB L100.2620 2.0-7.7 X10 3/uL Normal Absolute Neut 5.8 LAB L100.2720 0.83-4.51 X10 3/ul Normal Absolute Lymph 1.37 Performed By: #### L100.0100 #### [facility] [address] [place], [address] COMPREHENSIVE METABOLIC Collected: 05/14/2018 Status: F Source: [place] 1:10 PM [facility] REPOSITORY TYPE CODE TESTS RESULT OUT OF RANGE REFERENCE UNITS LAB L501.0100 74-106 mg/dL Normal GLU 83 Result Comment: Please note revised GLUCOSE reference range effective 2017. LAB L501.1000 7-18 mg/dL Normal BUN 10 LAB L501.1100 0.55-1.02 mg/dL Normal CREAT,SERUM 0.79 Result Comment: The validity of the calculated GFR AND GFRAA in patients over 70 years has not been determined. Clinical correlation is essential. LAB L501.1110 >60 mL/min Normal EST GFR 86 Result Comment: Non- GFR Calc LAB L501.1115 >60 mL/min Normal EST GFR - AA 104 Result Comment: GFR Calc LAB L501.1255 ml/min Normal Estimated CRCL 92.97 LAB L501.1300 10-20 RATIO Normal BUN/CRE 12.6 LAB L501.1500 6.4-8. g/dL Normal 2 T PROT 7.1 LAB L501.1800 3.2-5. g/dL Normal 0 ALB 3.7 LAB L501.1950 2.2-4. g/dL Normal 2 GLOB 3.4 LAB L501.2000 0.9-2. RATIO Normal 4 A/G 1.1 LAB L501.2200 8.5-10 mg/dL Normal .1 CA 8.8 LAB L501.4100 15-37 U/L Low AST 12 LAB L501.4305 45-117 U/L Normal ALK P 61 LAB L501.4405 13-56 U/L Normal ALT 17 LAB L501.4600 0.20-1 mg/dL Normal .00 T BILI 0.50 LAB L501.5300 136-14 mmol/L Normal 5 NA 144 LAB L501.5600 3.5-5. mmol/L Normal 1 K 3.8 LAB L501.5900 98-107 mmol/L High CL 108 LAB L501.6100 21.0-3 mmol/L Normal 2.0 CO2 26.0 LAB L501.6200 5-15 Normal GAP 10 Performed By: #### L500.4050, L501.2450, L501.4010 #### [facility] [address] [place], [address] LIPASE Collected: 05/14/2018 Status: F Source: [place] 1:10 PM [facility] REPOSITORY TYPE CODE TESTS RESULT OUT OF RANGE REFERENCE UNITS LAB L501.2450 73-393 U/L Normal LIPASE 102 Performed By: #### L500.4050, L501.2450, L501.4010 #### [facility] [address] [place], [address] TROPONIN-I Collected: 05/14/2018 Status: F Source: [place] 1:10 PM [facility] REPOSITORY TYPE CODE TESTS RESULT OUT OF RANGE REFERENCE UNITS LAB L501.4010 <0.045 ng/mL Normal < 0.015 TROPONIN-I Result Comment: TROPONIN-I EXPECTED VALUES <0.045 Negative 0.045 - 0.590 Consistent with Cardiac Damage > OR = 0.600 Critical Value Not every elevated troponin is indicative of VT. These values should be used with clinical judgement in examining the patient's clinical picture for diagnosis. To establish a diagnosis of VT versus myocardial injury, there must be a demonstrated rise and/or fall in the troponin values, in addition to ischemic symptoms, EKG changes, new regional wall motion abnormality, and/or angiographical evidence. PLEASE NOTE: REFERENCE RANGES EDITED 18 Performed By: #### L500.4050, L501.2450, L501.4010 #### [facility] [address] [place], [address] ,SERUM,HCG QUALI. Collected: Status: F Source: [place] 05/14/2018 1:10 PM [facility] REPOSITORY TYPE CODE TESTS RESULT OUT OF REFERENCE UNITS RANGE LAB L700.7000 0-9 Nonpreg Negative Normal HCGSQUAL NEGATIVE LAB L700.6700 =>Qualitative mIU/mL Normal HCG Qual < 1 triggr Performed By: #### L700.6800 #### [facility] [facility] [address] [place], [address] ALCOHOL, BLOOD Collected: 05/14/2018 Status: F Source: [place] (MEDICAL)-SERUM 1:10 PM [facility] REPOSITORY TYPE CODE TESTS RESULT OUT OF RANGE REFERENCE UNITS LAB L501.9100 mg/dL Normal SERUM 3.0 ETOH Result Comment: The serum:whole blood ethanol ratio is approximately 1.14 and varies slightly with hematocrit. Medical Alcohol reference interval and critical value in non-tolerant individuals; 50 - 100 Impairment 100 Intoxication 100 - 250 Severe Poisoning 250 - 400 Deep/possible fatal coma Performed By: #### L501.9100 #### [facility] [address] [place], [place], [id number] URINE DRUG SCREEN Collected: 05/14/2018 Status: F Source: LANI (VISTA) 1:00 PM [facility] REPOSITORY TYPE CODE TESTS RESULT OUT OF RANGE REFERENCE UNITS LAB L505.0075 TO BE Normal CONFIRMED Result Comment: CONFIRMATORY TESTING FOR ALL POSITIVE URINE DRUG SCREEN RESULTS WILL ONLY BE SENT OUT UPON PHYSICIAN ORDER. VISTA Urine Drug Screen methods provide only preliminary analytical test results. A more specific alternate chemical method must be used in order to obtain a confirmed analytical result. Gas chromatography/mass spectrometery (GC/MS) is the preferred confirmatory method. Clinical consideration and professional judgement should be applied to any drug of abuse test result, particularly when preliminary positive results are used. URINE TCA TESTING MUST BE ORDERED SEPARATELY. USE TEST MNEMONIC: UTCA LAB L505.5005 VISTA UDS PH 6 Normal LAB L505.5015 <1000 ng/mL AMPHETAMINES Normal NEGATIVE LAB L505.5025 < 200 ng/mL BARBITIURATES Normal NEGATIVE LAB L505.5035 < 200 ng/mL BENZODIAZIPINE Normal NEGATIVE LAB L505.5045 < 300 ng/mL COCAINE Normal NEGATIVE LAB L505.5055 < 500 ng/mL ECSTACY Normal NEGATIVE LAB L505.5065 < 300 ng/mL METHADONE Normal NEGATIVE LAB L505.5075 < 300 ng/mL OPIATES Normal NEGATIVE LAB L505.5085 < 25 ng/mL PCP Normal NEGATIVE LAB L505.5095 < 50 ng/mL THC Normal NEGATIVE Performed By: #### L505.5000 #### [facility] [address] [place], [place], [address] URINALYSIS, COMPLETE Collected: 05/14/2018 Status: F Source: LANI 1:00 PM [facility] REPOSITORY Order Comment: Order Date: 05/14/18 COLOR OF URINE MAY AFFECT DIPSTICK RESULTS. How was Urine Obtained? CLEAN CATCH TYPE CODE TESTS RESULT OUT OF RANGE REFERENCE UNITS LAB L400.3000 Yellow COLOR Normal Roxy LAB L400.3050 Clear Normal CLARITY Cloudy LAB L400.3200 Normal mg/dl Normal GLUCOSE, UR Normal LAB L400.3300 Negative mg/dL Normal BILIRUBIN URINE Negative LAB L400.3400 Negative mg/dl High 5 KETONE UR LAB L400.3465 1.002-1.030 Normal SP.GR. DIPSTX 1.010 LAB L400.3550 5.0 - 8.0 pH UR Normal 6.5 LAB L400.3600 Negative mg/dl High PROT 30 DIPSTX LAB L400.3700 Normal mg/dl Normal UROBILI Normal LAB L400.3750 Negative Normal NITRITE UR Negative LAB L400.3780 Negative /ul High OCCULT BLOOD-UR 250 LAB L400.3800 Negative /ul High LEUK 25 ESTERASE LAB L400.4050 0-5 /hpf WBC 0 Normal SEEN LAB L400.4100 0-5 /hpf > Normal RBC-UA 100 SEEN LAB L400.4150 5-10 /hpf SQUAM Normal EPI 0-5 SEEN LAB L400.4300 None Seen /hpf 0 Normal BACTERIA SEEN LAB L400.4350 <or=2+ /hpf 0 Normal MUCUS, URINE SEEN Performed By: #### L400.0001 #### [facility] [address] [facility] [place], [address] ABDOMEN/PELVIS W IV CONT Observed: 05/14/2018 Status: F Source: LANI ONLY 12:34 PM [facility] REPOSITORY [facility] Imaging Services [address] [place] [address] Abdomen/Pelvis W IV Cont ONLY MR#: [id number] Acct: [id number] Name: ANGELICA ANDUJAR C Rep #: [id number] : 1980 F 37 From: Karson Vieira MD PCP: SAMANTHA HOOD [facility] Status: REG ER Study: Abdomen/Pelvis W IV Cont ONLY Date of Exam: 05/14/18 Exam# [id number] Ordering Dr: Stephan Witt MD ADDENDUM by Karson Vieira MD on 05/14/[address]/Abdomen/Pelvis W IV Cont ONLY 05/14/18 1730 Date cc: Stephan Witt MD; [facility] * Signed ADDENDUM by Karson Vieira MD on 05/14/18 at 1723 ADDENDUM Correction: The study was performed with intravenous contrast. 100 cc of Isovue-300 was administered. Electronically Signed: Karson Vieira, at 17:23 EDT Tel , Service support , 05/14/18 1723 Date cc: Stephan Witt MD; [facility] * Signed STUDY: CT ABDOMEN AND PELVIS WITHOUT CONTRAST REASON FOR EXAM: Female, 37 years old. Flank and chest pain. RADIATION DOSAGE (If Supplied By Facility): CTDIvol = ( 13.88 ) mGy, DLP = ( 869.86 ) mGycm TECHNIQUE: Transaxial images were obtained from the dome of the diaphragm to the symphysis pubis without oral contrast, and without intravenous contrast. Sagittal and coronal images were reconstructed. Individualized dose optimization techniques were used for this CT. COMPARISON: None. FINDINGS: Evaluation of the abdominal viscera is limited in the absence of intravenous contrast. The visualized lung bases are clear. The visualized portions of the heart and pericardium are within normal limits. There are no calcified gallstones present. The liver demonstrates an unremarkable unenhanced appearance. The spleen is normal in size. The pancreas demonstrates an unremarkable unenhanced appearance. The adrenal glands are within normal limits. There are no renal or ureteral stones. There is no hydronephrosis. Normal visualized stomach. There is no bowel obstruction or inflammation. The appendix is visualized and appears normal. The aorta is normal in caliber. There is no abdominal or pelvic free air, free fluid, fluid collection or lymphadenopathy. There are no destructive osseous lesions. CT/Abdomen/Pelvis W IV Cont ONLY IMPRESSION: No acute abdominal or pelvic pathology demonstrated on this noncontrast CT. Electronically Signed: Karson Vieira, at 14:26 EDT Tel , Service support , CC: Stephan Witt MD; SAMANTHA BEJARANO Vault Mechanic: Signed EMERGENCY DEPARTMENT Observed: 05/13/2018 Status: F Source: [place] SUMMARY 12:28 AM [facility] REPOSITORY [facility] Medical Records Department [address] [place] [address] Emergency Department Summary 05/12/18 1549 MR#: [id number] Acct: [id number] Name: ANGELICA ANDUJAR Rep #: [id number] : 1980 37 From: Main Bledsoe MD PCP: SAMANTHA BEJARANO Status: DEP ER - ER Visit Summary Date of Service: 05/12/18 Chief Complaint: Diarrhea History of Present Illness: The patient is a 37 F past medical history of reflux. Patient states the last week she has had intermittent episodes of diarrhea. Denies any melena. Denies any fever. Really no significant abdominal pain or some cramping with the diarrhea. She is currently on her menstrual cycle. She denies dysuria but states she is being more frequently. Denies any hematuria. Denies nausea or vomiting. Denies recent hospitalization. Physical Examination: Well-appearing middle-age female. Vital signs stable afebrile. H EENT exam driving his membranes. Neck nontender no lymphadenopathy. Lungs clear to auscultation bilaterally. Heart regular rhythm no murmur. Abdomen soft nondistended normal bowel sounds no peritoneal signs. No hernias or masses. No signs of obstruction. Pelvic girdle intact. Moving all 4 extremities. Neurovascular intact. Back nontender. Skin unremarkable. Neurologic exam no focal motor deficits. Test Results: CBC unremarkable. Electrolytes normal normal gap and creatinine. UA showed small amount of blood microscopic otherwise unremarkable no obvious signs of infection. Emergency Department Course and Treatment: Patient treated with a liter normal saline because clinically she looks dehydrated. Imodium for diarrhea. Treatment Plan: Repeat exam patient doing well at 1810. She will be discharged to home. Prescription for Imodium. Disposition: Discharge Impression: Diarrhea Mild clinical dehydration This note was generated with Bedloo dictation software. It may contain incorrect words, spelling, and punctuation that were not noted in review of the chart prior to signing ED Disposition - Plan for ED Patient: Chief Complaint: Diarrhea Referrals: Katharina Bejarano,Samantha Hood [Primary Care Provider] - What to do if you have Problems For any increased pain, shortness of breath, bleeding, nausea or vomiting, chest pain, or any unexpected problems, contact your Primary Care Provider. Call [facility] ([phone]) or report to the closest Emergency Room. Call 911 if necessary. 05/13/18 0028 <Electronically signed by Main lBedsoe MD> Date Main Bledsoe MD Cosigner Signature (If Indicated): Date CC: SAMANTHA [facility] DISCHARGE INSTRUCTION Observed: 05/13/2018 Status: F Source: [place] 12:28 AM [facility] REPOSITORY [facility] Medical Records Department [address] [place] [address] Discharge Instruction 05/12/18 181 MR#: [id number] Acct: [id number] Name: ANGELICA ANDUJAR Rep #: [id number] : 1980 37 From: Main Bledsoe MD PCP: SAM[facility]A [facility] Status: DEP ER ED Disposition - Plan for ED Patient: Disposition: Home or Assisted Living Chief Complaint: Diarrhea Instructions: ED Diarrhea Viral Prescriptions: Loperamide [Imodium] 2 mg PO Q2H PRN PRN #10 cap PRN Reason: Diarrhea Referrals: Katharina Bejarano,Samantha Hood [Primary Care Provider] - 3-5 Days if not improving Additional Instructions: Imodium as needed for diarrhea. Plenty of fluids and rest. This should aggressively get better and resolve if not improving follow-up with your primary care physician. What to do if you have Problems For any increased pain, shortness of breath, bleeding, nausea or vomiting, chest pain, or any unexpected problems, contact your Primary Care Provider. Call [facility] ([phone]) or report to the closest Emergency Room. Call 911 if necessary. 05/13/18 0028 <Electronically signed by Main Bledsoe MD> Date Main Bledsoe MD Cosigner Signature (If Indicated): Date CC: [facility] CBC W/DIFF, AUTOMATED Collected: 05/12/2018 Status: F Source: [place] 4:10 PM [facility] REPOSITORY TYPE CODE TESTS RESULT OUT OF RANGE REFERENCE UNITS LAB L100.1000 4.4-11.0 K/mm3 Normal WBC 7.7 LAB L100.1200 4.2-5.4 M/mm3 Normal RBC 5.37 LAB L100.1300 12.0-15.0 g/dl High HGB 15.4 LAB L100.1400 37-47 % Normal HCT 46.4 LAB L100.1500 81-99 fL Normal MCV 86.4 LAB L100.1600 27.0-32.0 pg Normal MCH 28.7 LAB L100.1700 32-36 g/gl Normal MCHC 33.2 LAB L100.1810 11.6-14.6 % Normal RDW CV 12.9 LAB L100.1820 35.1-43.9 fl Normal RDW SD 40.9 LAB L100.1900 150-450 K/mm3 Normal PLT 245 LAB L100.2000 6.2-12.0 fl Normal MPV 10.9 LAB L100.2100 47-70 % Normal NEUT% 64.8 LAB L100.2200 19-41 % Normal LY% 27.5 LAB L100.2300 0-10 % Normal MONO% 5.7 LAB L100.2400 0-5 % Normal EO% 1.7 LAB L100.2500 0-1 % Normal BASO% 0.3 LAB L100.2550 0.0-0.9 % Normal IM GRAN % 0.000 Result Comment: IG% - Immature Granulocytes (promyelocytes, myelocytes and metamyelocytes) > 1% indicates that a LEFT SHIFT is Present. LAB L100.2620 2.0-7.7 X10 3/uL Normal Absolute Neut 5.0 LAB L100.2720 0.83-4.51 X10 3/ul Normal Absolute Lymph 2.11 Performed By: #### L100.0100 #### [facility] [address] [place], [address] BASIC METABOLIC Collected: 05/12/2018 Status: F Source: [place] PROFILE ([facility]) 4:10 PM [facility] REPOSITORY TYPE CODE TESTS RESULT OUT OF RANGE REFERENCE UNITS LAB L501.0100 74-106 mg/dL Normal GLU 84 Result Comment: Please note revised GLUCOSE reference range effective 2017. LAB L501.1000 7-18 mg/dL Normal BUN 9 LAB L501.1100 0.55-1.02 mg/dL Normal CREAT,SERUM 0.83 Result Comment: The validity of the calculated GFR AND GFRAA in patients over 70 years has not been determined. Clinical correlation is essential. LAB L501.1110 >60 mL/min Normal EST GFR 82 Result Comment: Non- GFR Calc LAB L501.1115 >60 mL/min Normal EST GFR - AA 99 Result Comment: GFR Calc LAB L501.1255 ml/min Normal Estimated CRCL 88.49 LAB L501.1300 10-20 RATIO Normal BUN/CRE 10.9 LAB L501.2200 8.5-10 mg/dL Normal .1 CA 9.5 LAB L501.5300 136-14 mmol/L Normal 5 NA 140 LAB L501.5600 3.5-5. mmol/L Normal 1 K 3.9 LAB L501.5900 98-107 mmol/L Normal CL 106 LAB L501.6100 21.0-3 mmol/L Normal 2.0 CO2 26.0 LAB L501.6200 5-15 Normal GAP 8 Performed By: #### L500.2500 #### [facility] [address] [facility] [place], [address] URINALYSIS, COMPLETE Collected: 05/12/2018 Status: F Source: [place] 2:30 PM [facility] REPOSITORY Order Comment: Order Date: 05/12/18 COLOR OF URINE MAY AFFECT DIPSTICK RESULTS. Comments: PT ON MENSES How was Urine Obtained? CLEAN CATCH TYPE CODE TESTS RESULT OUT OF RANGE REFERENCE UNITS LAB L400.3000 Yellow COLOR Normal Red LAB L400.3050 Clear Normal CLARITY Sl. Cloudy LAB L400.3200 Normal mg/dl Normal GLUCOSE, UR Normal LAB L400.3300 Negative mg/dL Normal BILIRUBIN URINE Negative LAB L400.3400 Negative mg/dl Normal KETONE UR Negative LAB L400.3465 1.002-1.030 Normal SP.GR. DIPSTX 1.010 LAB L400.3550 5.0 - 8.0 pH UR Normal 7.0 LAB L400.3600 Negative mg/dl High PROT DIPSTX 100 LAB L400.3700 Normal mg/dl Normal UROBILI Normal LAB L400.3750 Negative Normal NITRITE UR Negative LAB L400.3780 Negative /ul High OCCULT BLOOD-UR 250 LAB L400.3800 Negative /ul High LEUK 25 ESTERASE LAB L400.4050 0-5 /hpf WBC Normal 0-5 SEEN LAB L400.4100 0-5 /hpf Normal RBC-UA 5-10 SEEN LAB L400.4150 5-10 /hpf SQUAM Normal EPI 0-5 SEEN LAB L400.4300 None Seen /hpf Normal BACTERIA RARE LAB L400.4350 <or=2+ /hpf 0 Normal MUCUS, URINE SEEN Performed By: #### L400.0001 #### [facility] [address] [facility] [place], [address] Observed: 05/05/2018 Status: F Source: [place] BACT/CAND VAG [facility] 11:03 [facility] REPOSITORY Sp. Request/Comment: - Swab Smear Result - BACTERIAL VAGINOSIS RESULT: Stain results indicate mixed morphotypes consistent with transition from normal vaginal keisha. Rare Polymorphonuclear leukocytes Moderate Epithelial cells No Yeast observed Performed By: #### BVCNSM #### [place] [address] Observed: 05/05/2018 Status: F Source: [place] TRICHOMONAS PREP 11:03 AM [facility] REPOSITORY Sp. Request/Comment: - Swab Smear Result - Negative for Trichomonas vaginalis antigen This test was developed and its performance characteristics determined by [facility] [place] ([facility] It has not been cleared or approved by the FDA. [facility] is regulated under CLIA as qualified to perform high-complexity testing. This test is used for clinical purposes. It should not be regarded as investigational or for research. Performed By: #### TRICHO #### [place] [address] GC/CHLAMYDIA AMPLIF Collected: 05/05/2018 Status: F Source: [place] 11:01 [facility] REPOSITORY TYPE CODE TESTS RESULT OUT OF REFERENCE UNITS RANGE LAB GCCTSR GC/Chlam Amp [facility] Source LAB GCAMPL GC Negative Amplification for Neisseria gonorrhoeae by amplification. LAB CLAMPL Chlamydia Negative Amplif for Chlamydia trachomatis by amplification. Performed By: #### GCCT #### [place] [address] PROGRESS Observed: 05/05/2018 Status: COMPLETED Source: [place] 10:36 AM [facility] REPOSITORY HNO ID: [id number] Author: Veronica Gamez Service: (none) Author Type: Nurse Practitioner Type: Progress Notes Filed: 05/05/2018 11:07 AM Note Text: Angelica Andujar is a 37 year old female who presents for vaginal itching on the outside and cramping. Nystatin cream used few weeks ago. Concerned that she has a vaginal infection of some sort. Vaginal discharge: white discharge in the toilet, has not noticed any on toilet paper. Noticed over the past few days. Itching: YES Dyspareunia: No Fever/chills: No Abdominal pain: No but has cramping Bladder: Negative for dysuria or frequency Bowel: No blood in stool, pain with BM, tarry stool, persistent diarrhea or constipation Any new sexual partners or concern for STD exposure: Yes: one new partner within the past month Any history of STDs:chlamydia 2005, trichomonas 2010 Does your partner have any new complaints: No Are you currently taking any medications to treat vaginitis: Yes, nystatin cream Do you use feminine sprays, douches or deodorants: No Contraception: none Past medical, surgical, social history, medications and allergies reviewed and updated. OBJECTIVE: Wt 190 lb 12.8 oz (86.5kg) LMP 04/21/2018 GENERAL: Well developed, well nourished in no apparent distress ABDOMEN: soft, non-tender and no masses PELVIC: external genitalia normal, normal Bartholin's glands, urethra, Zoar's glands, no vulvar lesions, no cervical lesions, good vaginal support, normal appearing perineal body and perianal region, abnormal discharge thick white adherent BIMANUAL: uterus normal size, shape and consistency, no adnexal masses and non-tender. ASSESSMENT/PLAN: 1. Acute vaginitis - ICD9: 616.10, ICD10: N76.0 (primary diagnosis) - Suspect vaginal yeast - GC/CHLAMYDIA DNA DET - TRICHOMONAS PREP - BACT/MISTY VAG GRAM STAIN - FLUCONAZOLE 150 MG TABLET - 2 doses 3 days apart - NYSTATIN 100,000 UNIT/GRAM TOPICAL CREAM 2. High risk sexual behavior, unspecified type - ICD9: V69.2, ICD10: Z72.51 - HEP B SURF AG SCRN - HCV QUANT RNA BY PCR - HIV 1,2 COMBO (AG/AB) - GC/CHLAMYDIA DNA DET - SYPHILIS IGG WITH CONF - TRICHOMONAS PREP 3. Screen for STD (sexually transmitted disease) - ICD9: V74.5, ICD10: Z11.3 - HEP B SURF AG SCRN - HCV QUANT RNA BY PCR - HIV 1,2 COMBO (AG/AB) - GC/CHLAMYDIA DNA DET - SYPHILIS IGG WITH CONF - TRICHOMONAS PREP Any new medications given to the patient have been explained as to directions, reasons for prescribing and side effects. Perineal hygeine and safe sex were discussed with the patient. Will notify of lab results. Follow-up as needed. Veronica Gamez APRN.JOSE [place] CNOV Observed: 05/05/2018 Status: COMPLETED Source: [place] 9:45 AM [facility] REPOSITORY Office Visit (WOOB) ANGELICA ANDUJAR ([id number]) 1980 F Date Time Provider Department 05/05/18 9:45 AM VERONICA GAMEZ (MOBILE EQUIPMENT SERVICER) WOOB During your visit today, we recorded the following information about you: Blood pressure Weight Last Period 100/58 86.5 kg 04/21/18 Veronica Gamez APRN.MOBILE EQUIPMENT SERVICER 05/05/2018 11:07 AM Signed Angelica Bermudez Andujar is a 37 year old female who presents for vaginal itching on the outside and cramping. Nystatin cream used few weeks ago. Concerned that she has a vaginal infection of some sort. Vaginal discharge: white discharge in the toilet, has not noticed any on toilet paper. Noticed over the past few days. Itching: YES Dyspareunia: No Fever/chills: No Abdominal pain: No but has cramping Bladder: Negative for dysuria or frequency Bowel: No blood in stool, pain with BM, tarry stool, persistent diarrhea or constipation Any new sexual partners or concern for STD exposure: Yes: one new partner within the past month Any history of STDs:chlamydia 2005, trichomonas 2010 Does your partner have any new complaints: No Are you currently taking any medications to treat vaginitis: Yes, nystatin cream Do you use feminine sprays, douches or deodorants: No Contraception: none Past medical, surgical, social history, medications and allergies reviewed and updated. OBJECTIVE: Wt 190 lb 12.8 oz (86.5kg) LMP 04/21/2018 GENERAL: Well developed, well nourished in no apparent distress ABDOMEN: soft, non-tender and no masses PELVIC: external genitalia normal, normal Bartholin's glands, urethra, Zoar's glands, no vulvar lesions, no cervical lesions, good vaginal support, normal appearing perineal body and perianal region, abnormal discharge thick white adherent BIMANUAL: uterus normal size, shape and consistency, no adnexal masses and non-tender. ASSESSMENT/PLAN: 1. Acute vaginitis - ICD9: 616.10, ICD10: N76.0 (primary diagnosis) - Suspect vaginal yeast - GC/CHLAMYDIA DNA DET - TRICHOMONAS PREP - BACT/MISTY VAG GRAM STAIN - FLUCONAZOLE 150 MG TABLET - 2 doses 3 days apart - NYSTATIN 100,000 UNIT/GRAM TOPICAL CREAM 2. High risk sexual behavior, unspecified type - ICD9: V69.2, ICD10: Z72.51 - HEP B SURF AG SCRN - HCV QUANT RNA BY PCR - HIV 1,2 COMBO (AG/AB) - GC/CHLAMYDIA DNA DET - SYPHILIS IGG WITH CONF - TRICHOMONAS PREP 3. Screen for STD (sexually transmitted disease) - ICD9: V74.5, ICD10: Z11.3 - HEP B SURF AG SCRN - HCV QUANT RNA BY PCR - HIV 1,2 COMBO (AG/AB) - GC/CHLAMYDIA DNA DET - SYPHILIS IGG WITH CONF - TRICHOMONAS PREP Any new medications given to the patient have been explained as to directions, reasons for prescribing and side effects. Perineal hygeine and safe sex were discussed with the patient. Will notify of lab results. Follow-up as needed. Veronica Gamez, LEGAL RECRUITER.MOBILE EQUIPMENT SERVICER Referring Provider: SELF [[id number]] Allergies As of Date: 05/05/2018 Noted Allergy Reaction ANTI-BACTERIAL CLEANSING (BENZETH*10/26/2012 2 - Rash BEES 07/16/2010 16 - Unknown Comments: Listed on records from Samantha Hood BENZALKONIUM CHLORIDE 09/08/2012 14 - Other: See Comments Comments: Skin irritations CLINDAMYCIN 03/27/2018 8 - GI Upset DOXYCYCLINE 12/13/2012 8 - GI Upset Comments: stomach cramps DUST MITES 04/26/2012 16 - Unknown Comments: Dust mites and cockroaches FLAGYL (METRONIDAZOLE HCL) 06/20/2012 4 - Hives HAND LAWN CARE SPECIALIST (ETHYL ALCOHOL (SK*11/04/2009 2 - Rash Comments: PT HAS SENSITIVE SKIN. O.K. FOR MEDICAL PROFESSIONAL TO USE HAND LAWN CARE SPECIALIST AND THEN TOUCH HER, BUT SHE HERSELF DOES NOT USE IT. IODINE 02/18/2011 2 - Rash LACTOSE INTOLERANCE (LACTASE) 11/04/2009 LATEX, NATURAL RUBBER 03/17/2018 2 - Rash SAUK-SUIATTLE 12/07/2017 10 - Anaphylaxis METRONIDAZOLE 04/11/2018 4 - Hives MOLD 04/26/2012 16 - Unknown MORPHINE 03/02/2011 9 - Itching PENICILLIN 06/18/2016 16 - Unknown pet dander [Other] 10/20/2011 16 - Unknown Comments: Cat, Dog, Horse PREDNISONE 08/26/2012 14 - Other: See Comments Comments: Moodiness, restlessness, states feels like crap all over. SEASONAL ALLERGIES 11/04/2009 16 - Unknown Comments: Trees, grasses, weeds, ragweed. SINGULAIR (MONTELUKAST) 12/07/2017 16 - Unknown Comments: Possible rash SODIUM LAURYL SULFATE 09/30/2010 2 - Rash Comments: Skin irritation to scalp TREES 05/11/2012 14 - Other: See Comments ZOFRAN (ONDANSETRON HCL (PF)) 03/02/2011 14 - Other: See Comments Comments: Zofran causes cramping and constipation Date Reviewed: 05/05/2018 Reviewed by: Veronica [facility] Hospital[facility]arlyn Gamez - Fully Assessed Reason for Visit: follow up yeast infection [Other] Cmt: STD testing Primary Visit Diagnosis:Acute vaginitis [N76.0] Other Visit Diagnoses:High risk sexual behavior, unspecified type [Z72.51] Screen for STD (sexually transmitted disease) [Z11.3] Order(s):HEP B SURF AG SCRN [SQHBSAG] Order #: [id number] FUTURE HCV QUANT RNA BY PCR [SQHCQPCR] Order #: [id number] FUTURE HIV 1,2 COMBO (AG/AB) [SQHIV12] Order #: [id number] FUTURE GC/CHLAMYDIA DNA DET [SQGCCAMP] Order #: [id number] SYPHILIS IGG WITH CONF [SQSYPHGX] Order #: [id number] FUTURE TRICHOMONAS PREP [SQTRICHO] Order #: [id number] BACT/MISTY VAG GRAM STAIN [SQBVCNSM] Order #: [id number] FUTURE fluconazole (DIFLUCAN) 150 mg tabletTake 1 tablet by mouth one time only for 1 dose. Take second dose 3 days after first dose.Disp: 2 tabletRfl: 0 nystatin (MYCOSTATIN) creamApply 1 application to affected area twice daily.Disp: 1 TubeRfl: 1 Prescriptions as of 05/05/2018 Sig: FLUCONAZOLE 150 MG TABLET Take 1 tablet by mouth one ti* NYSTATIN 100,000 UNIT/GRAM TO* Apply 1 application to affect* TRIAMCINOLONE ACETONIDE 0.1 %* Apply 1 application to affect* Patient not taking: Reported on 04/11/2018 LACTOBACILLUS RHAMNOSUS GG 10* Take 1 capsule by mouth once * Patient not taking: Reported on 04/11/2018 METHYLCELLULOSE (WITH SUGAR) * Mix 1 heaping teaspoon into 8* Patient not taking: Reported on 04/08/2018 NAPROXEN 500 MG TABLET Take 1 tablet by mouth twice * Patient not taking: Reported on 04/08/2018 FOLIC ACID 400 MCG TABLET Take 400 mcg by mouth once da* BENZONATATE 100 MG CAPSULE Take 1 capsule by mouth every* Patient not taking: Reported on 03/16/2018 ALBUTEROL SULFATE HFA 90 MCG/* Inhale 2 Puffs as instructed * VITAMIN D-3 ORAL Take by mouth. VITAMIN D3 2,000 UNIT CAPSULE BECLOMETHASONE DIPROPIONATE 8* Inhale 2 Puffs as instructed * FAMOTIDINE 20 MG TABLET Take 1 tablet by mouth at bed* Patient not taking: Reported on 05/05/2018 NAPROXEN 500 MG TABLET Take 1 tablet by mouth twice * Patient not taking: Reported on 04/08/2018 KETOTIFEN 0.025 % (0.035 %) E* Use 1 Drop in both eyes twice* Patient not taking: Reported on 04/08/2018 ESCITALOPRAM 20 MG TABLET Take 1 tablet by mouth once d* Patient not taking: Reported on 03/16/2018 FLUTICASONE 50 MCG/ACTUATION * Use 2 Sprays in each nostril * LORATADINE 10 MG TABLET Take 1 tablet by mouth once d* HYDROCORTISONE ACETATE 1 % TO* Apply 1 application to affect* Patient not taking: Reported on 04/11/2018 MULTIVITAMIN CAPSULE Take 1 capsule by mouth once * Problem List As Of Date 05/05/2018 Noted Resolved Frequency of urination [R35.0] INVALID FOR*10/20/2011 Pelvic pain in female [R10.2] INVALID FOR*10/20/2011 Microscopic hematuria [R31.29] INVALID FOR*09/15/2016 Other hammer toe (acquired) [M20.40] INVALID FOR*10/20/2011 Hallux valgus (acquired) [M20.10] INVALID FOR* Internal hemorrhoids without mention of complic*INVALID FOR*10/20/2011 Diarrhea [R19.7] INVALID FOR*10/20/2011 Abdominal pain, generalized [R10.84] INVALID FOR*10/20/2011 Low back pain [M54.5] INVALID FOR* Closed fracture of metatarsal bone(s) [S92.309A]INVALID FOR*09/15/2016 Tendonitis [M77.9] INVALID FOR*09/15/2016 Acne Vulgaris: Grade III Inflammatory and Comed*INVALID FOR*09/15/2016 Other seborrheic dermatitis [L21.8] INVALID FOR*09/15/2016 History of cold-induced urticaria [Z87.2] INVALID FOR* Seborrhea [L21.9] INVALID FOR*09/15/2016 Eczematous dermatitis [L30.9] INVALID FOR*09/15/2016 Xerosis cutis [L85.3] INVALID FOR*09/15/2016 Backache, unspecified [M54.9] INVALID FOR*09/15/2016 Asthma [J45.909] INVALID FOR* Attention-deficit hyperactivity disorder, predo*INVALID FOR* 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 Take second dose 3 days after first dose. NYSTATIN 100,000 UNIT/GRAM TOPICAL C* 1 Tu* 1 05/05/2018 Route: TOPICAL Sig: Apply 1 application to affected area twice daily. Medications Discontinued During This Encounter nystatin (MYCOSTATIN) cream 1 Tu* 1 04/11/2018 05/05/2018 Route: TOPICAL Sig: Apply 1 application to affected area twice daily. Disc: Reason for discontinue is not on file. Encounter Status:Closed by VERONICA GAMEZ on 05/05/18 SACRUM-COCCYX MIN 2 VIEWS Observed: 05/01/2018 Status: F Source: [facility] 1:14 PM [facility] REPOSITORY [facility] Imaging Services [address] [place] [address] Sacrum-Coccyx min 2 Views MR#: [id number] Acct: [id number] Name: ANGELICA ANDUJAR Rep #: [id number] : 1980 F 37 From: Khoi Middleton MD PCP: SAMANTHA BEJARANO Status: REG CLI Study: Sacrum-Coccyx min 2 Views Date of Exam: 05/01/18 Exam# [id number] Ordering Dr: Samantha Shields STUDY: X-RAY - SACRUM/COCCYX REASON FOR EXAM: Female, 37 years old. Pain. TECHNIQUE: 3 view(s) of the sacrum and coccyx were obtained on 4 films. COMPARISON: CT abdomen and pelvis January 13, 2018 FINDINGS: Normal bilateral sacroiliac joints. Normal visualized sacral ala and fused sacral bodies. Normal sacrococcygeal junction with a normal angulation. Normal coccygeal segments. The presacral soft tissue structures are unremarkable. There is no demonstrated destructive osseous process. There is no demonstrated fracture. RAD/Sacrum-Coccyx min 2 Views IMPRESSION: Normal x-rays of the sacrum and coccyx. Electronically Signed: Yeny Middleton MD at 14:01 EDT , Service support , CC: SAMANTHA BEJARANO Vault Mechanic: Signed LUMBAR SPINE 2 OR 3 Observed: 05/01/2018 Status: F Source: LANI VIEWS 1:14 PM [facility] REPOSITORY [facility] Imaging Services [address] [place] [address] Lumbar Spine 2 or 3 Views MR#: [id number] Acct: [id number] Name: ANGELICA ANDUJAR Rep #: [id number] : 1980 F 37 From: Khoi Middleton MD PCP: SAMANTHA HOOD [facility] Status: REG CLI Study: Lumbar Spine 2 or 3 Views Date of Exam: 05/01/18 Exam# [id number] Ordering Dr: Samantha Shields STUDY: X-RAY - LUMBAR SPINE REASON FOR EXAM: Female, 37 years old. Pain. TECHNIQUE: 3 view(s) of the lumbar spine were obtained. COMPARISON: 3 views of the lumbar spine as well as CT abdomen and pelvis October 25, 2015 FINDINGS: Normal lumbar lordosis. There is no substantial scoliosis. There is a normal alignment of the vertebrae. There is early degenerative anterior endplate spurring at L4-5. Moderate narrowing of the L4-5 intervertebral disc height. There is no demonstrated osseous destructive lesion or fracture. Degenerative arthroses suggested in the L4-5 and L5-S1 facet articulations. There are also early degenerative changes of the bilateral sacroiliac joints. The soft tissue structures are unremarkable. RAD/Lumbar Spine 2 or 3 Views IMPRESSION: Degenerative changes at L4-5, as noted, which have progressed since October 2015. Electronically Signed: Yeny Middleton MD at 15:55 EDT , Service support , CC: SAMANTHA HOOD [facility] Vault Mechanic: Signed Observed: 04/12/2018 Status: F Source: [place] TRICHOMONAS PREP 12:06 PM [facility] REPOSITORY Smear Result - Negative for Trichomonas vaginalis antigen This test was developed and its performance characteristics determined by [facility] Ashok Serrano [facility] [place] [facility] It has not been cleared or approved by the FDA. -[facility] is regulated under CLIA as qualified to perform high-complexity testing. This test is used for clinical purposes. It should not be regarded as investigational or for research. Performed By: #### TRICHO #### [place] [address] [place] [address] Observed: 04/12/2018 Status: F Source: [place] BACT/CAND VAG GRM ST 12:06 PM [facility] REPOSITORY Smear Result - BACTERIAL VAGINOSIS RESULT: Stain results consistent with normal vaginal keisha. Many --> ABNORMAL ALERT Yeast --> ABNORMAL ALERT Many Polymorphonuclear leukocytes Performed By: #### BVCNSM #### [place] [address] GC/CHLAMYDIA AMPLIF Collected: 04/11/2018 Status: F Source: [place] 12:06 PM [facility] REPOSITORY TYPE CODE TESTS RESULT OUT OF REFERENCE UNITS RANGE LAB GCCTSR GC/Chlam Amp Cervix Source LAB GCAMPL GC Negative Amplification for Neisseria gonorrhoeae by amplification. LAB CLAMPL Chlamydia Negative Amplif for Chlamydia trachomatis by amplification. Performed By: #### GCCT #### [place] [address] CNOV Observed: 04/11/2018 Status: COMPLETED Source: [place] 11:45 AM [facility] REPOSITORY Office Visit (WOOB) ANGELICA ANDUJAR ([id number]) 1980 F Date Time Provider Department 04/11/18 11:45 AM VERONICA GAMEZ (JOSE ROBERTO) WOOB During your visit today, we recorded the following information about you: Blood pressure Weight 104/62 87.1 kg Veronica Gamez APRN.CNP 04/11/2018 12:39 PM Signed Adhesive Bonding Machine Operator offered: Patient declines. Angelica Andujar is a 37 year old female who presents for vaginal pruritis and burning for 3 days. Began after completing Flagyl for BV. Vaginal discharge: moderate amount, yellowish white, thick Itching: YES Dyspareunia: N/A, no SA since onset of symptoms Fever/chills: No Abdominal pain: Yes, mild lower abdomen Bladder: Negative for dysuria or frequency Bowel: No blood in stool, pain with BM, tarry stool, persistent diarrhea or constipation Any new sexual partners or concern for STD exposure: New partner 1 week ago, unprotected Any history of STDs: chlamydia 2005, trichomonas 2010 Does your partner have any new complaints: No Are you currently taking any medications to treat vaginitis: No Do you use feminine sprays, douches or deodorants: No Menstrual cycle: every 28-30 with 5 days of light flow Contraception: none Last pap: 2012, normal Past medical, surgical, social history, medications and allergies reviewed and updated. OBJECTIVE: BP 104/62 Wt 192 lb (87.1kg) LMP 03/12/2018 GENERAL: Well developed, well nourished in no apparent distress ABDOMEN: soft, non-tender and no masses PELVIC: labia excoriated, normal Bartholin's glands, urethra, Zoar's glands, no vulvar lesions, no cervical lesions, good vaginal support, normal appearing perineal body and perianal region, abnormal discharge thick, white BIMANUAL: uterus normal size, shape and consistency, no adnexal masses and non-tender. RECTOVAGINAL: deferred. ASSESSMENT/PLAN: 1. Acute vaginitis - ICD9: 616.10, ICD10: N76.0 (primary diagnosis) - suspect yeast - GC/CHLAMYDIA DNA DET - BACT/MISTY VAG GRAM STAIN - TRICHOMONAS PREP - FLUCONAZOLE 150 MG TABLET - RAPID BV B/O - negative 2. Screen for STD (sexually transmitted disease) - ICD9: V74.5, ICD10: Z11.3 - unprotected intercourse with new partner one week ago - GC/CHLAMYDIA DNA DET - BACT/MISTY VAG GRAM STAIN - TRICHOMONAS PREP Follow-up as needed. OSVALDO Colon APRN.CNP 04/11/2018 12:12 PM Signed Florajen-3 probiotic Condoms RepHresh Minimizing irritation of the vulva (area around the vagina) Wear white cotton underwear. Avoid synthetic fabrics and tight clothing. Sleep wearing shorts or pajama bottoms without underwear. Shower as soon as possible after exercise. Avoid clothing detergents and soaps with perfumes or dyes. Use warm (not hot) water to wash the vulva and if you use soap use a product designed for sensitive skin (like Dove or Cetaphil). Dove unscented bar soap only. Do not douche or use creams/powders in the vulvar area unless instructed by your physician. If you must douche, use only plain warm water. Make sure the vulva is dry before dressing by patting dry with a towel. Avoid vigorous rubbing with the towel. You may want to use the blow dryer (on the cool setting only!) on the vulva. The most important way to let your body heal is by avoiding scratching. Many patients find it difficult to avoid scratching at night when they are most aware of the itchiness. You can try taking Benadryl just before bedtime. Some women find it helpful to wear cotton gloves to bed to avoid scratching at night. Bacterial Vaginosis What is bacterial vaginosis? Bacterial vaginosis (BV) is a common infection that occurs in a woman's vagina. Bacterial vaginosis does not usually cause serious health problems, except in women. What causes BV? Health care providers do not yet fully understand what causes BV. Bacteria are a natural part of the vagina. For some reason, something upsets the normal balance of bacteria. Some of the bacteria grow too rapidly and cause infection. What are the symptoms of BV? Unfortunately, almost 50 percent of the women who have bacterial vaginosis do not have any symptoms. Common symptoms of BV include: White or discolored discharge Discharge that smells fishy Fishy smell that is strongest after sex Other symptoms can include: Itchy vagina Sore vagina Because BV has symptoms that are similar to other infections, it is important that you visit your health care provider if you think you have an infection in your vagina. Who can get BV? Any woman can get BV. The infection is most common in women between the ages of 18 and 44. BV is most common in sexually active women, although sexual transmission of BV has never been proven. Women who are not engaging in sex can also get BV. You may have a higher risk of getting BV if you: Have many sex partners Have a sexually transmitted infection (STI) How can I know if I have BV? Your health care provider can tell you if you have BV. He or she will examine you and will take a sample of fluid from your vagina. The fluid is viewed under a microscope. In most cases, your health care provider can tell right away if you have BV. How is BV treated? Bacterial vaginosis is treated using medicines that kill the infection. The most common medicine ordered for BV is called metronidazole. Common product names for this medicine are Flagyl? and Protostat?. Metronidazole may be given as a pill that is taken by mouth. It may also be given as a vaginal gel. Does the medication have side effects? Yes. You may have: Upset stomach Metal taste in your mouth Heartburn Don't drink alcohol while you are taking metronidazole. You can become very sick to your stomach. Call your health care provider if you have these or any other side effects. Can I treat myself for BV? No. Bacterial vaginosis can only be treated with medicines ordered by your health care provider. You cannot purchase [id number] products to treat BV. Products for douching and treating yeast infections will not cure BV. Should I be treated for BV if I am ? Yes, but not during the first three months of . Some studies have shown that having the infection during may cause early labor and premature . Tell your health care provider if you are . Also let your health care provider know if you think that you might be . You and your health care provider should discuss whether or not the infection should be treated. How can I protect myself from BV? Ways to prevent BV are not yet known. Female hygiene products like douches and deodorants will not cure the infection. These products may make the infection worse. To maintain your overall good health: Eat a well-balanced diet Exercise Manage stress levels Get a pelvic exam as directed by your provider When should I call my doctor? You should call your health care provider any time if: Your vaginal discharge changes color, becomes heavier, or smells different You notice itching, burning, swelling, or soreness around the vagina ?Copyright 8654-6842 The [facility]. All rights reserved. This information is provided by the [facility] and is not intended to replace the medical advice of your doctor or health care provider. Please consult your health care provider for advice about a specific medical condition. For additional written health information, please contact the Health Information Center at the [facility] or toll-free extension [phone] or visit [email or web address] This document was last reviewed on: 2010 VAGINAL YEAST INFECTION What causes a yeast infection? A yeast infection is caused by several different fungi that normally grow in the body. (Yeast is a kind of fungus). A change in the chemical balance in the vagina allows the fungus to grow too rapidly and cause symptoms. Yeast infections most often occur in a woman's vagina. Yeast infections can occur in other parts of the body and in men. Though uncomfortable, yeast infections are not serious and can be cured. What are the symptoms of a yeast infection? Common symptoms: Intense vaginal itching Thick, odorless discharge (might resemble cottage cheese) Less common symptoms: Sore vagina Lower abdominal pain Vaginal rash Burning during urination Painful sex Why do yeast infections occur? All of the reasons why yeast infections occur are not yet understood. What is known is that conditions that usually control fungus can change, allowing the fungus to grow rapidly. Some factors that might cause yeast infections include: control pills Poor nutrition Antibiotic treatment Lack of sleep Diabetes Stress HIVAIDS Can yeast infections recur? Yes. Yeast infections often recur. Some women find that they get yeast infections frequently. Do I need to see a doctor if I think I have a yeast infection? Vaginal discharges have several different causes. If you are fairly certain that you have a yeast infection, you can treat yourself. See your health care provider promptly if the symptoms do not improve. Creams and suppositories can be purchased from a drugstore and used to treat the infection. It's important to follow all of the directions on the product label. Sometimes yeast infections are treated with medicines taken by the mouth. These must be ordered by your health care provider. How can I help prevent yeast infections? Wear loose clothing made from natural fibers (cotton, linen, silk). Avoid wearing pantyhose, tights, or leggings. Avoid wearing tight pants. Don't douche. (Douching can kill bacteria that control fungus.) Limit use of feminine deodorant. Limit use of deodorant tampons or pads. Change out of wet clothing, especially bathing suits, as soon as you can. Avoid frequent hot tub baths. Wash underwear in hot water. Eat a well-balanced diet. Eat yogurt. Use acidophilus tablets. If you have diabetes, keep your blood sugar level as close to normal as possible. What if I have frequent yeast infections? See your health care provider and: Get a blood sugar test for diabetes Get tested for HIV/AIDS ? Copyright 7675-0972 The [facility]. All rights reserved. This information is provided by the [facility] and is not intended to replace the medical advice of your doctor or health care provider. Please consult your health care provider for advice about a specific medical condition. For additional written health information, please contact the Health Information Center at the [facility] or toll-free extension [phone]. This document was last reviewed on: 2004 index#5010 Referring Provider: SELF [200] Allergies As of Date: 04/11/2018 Noted Allergy Reaction ANTI-BACTERIAL CLEANSING (BENZETH*10/26/2012 2 - Rash BEES 07/16/2010 16 - Unknown Comments: Listed on records from Samantha Hood BENZALKONIUM CHLORIDE 09/08/2012 14 - Other: See Comments Comments: Skin irritations CLINDAMYCIN 03/27/2018 8 - GI Upset DOXYCYCLINE 12/13/2012 8 - GI Upset Comments: stomach cramps DUST MITES 04/26/2012 16 - Unknown Comments: Dust mites and cockroaches HAND LAWN CARE SPECIALIST (ETHYL ALCOHOL (SK*11/04/2009 2 - Rash Comments: PT HAS SENSITIVE SKIN. O.K. FOR MEDICAL PROFESSIONAL TO USE HAND LAWN CARE SPECIALIST AND THEN TOUCH HER, BUT SHE HERSELF DOES NOT USE IT. IODINE 02/18/2011 2 - Rash LACTOSE INTOLERANCE (LACTASE) 11/04/2009 LATEX, NATURAL RUBBER 03/17/2018 2 - Rash SAUK-SUIATTLE 12/07/2017 10 - Anaphylaxis METRONIDAZOLE 04/11/2018 4 - Hives MOLD 04/26/2012 16 - Unknown MORPHINE 03/02/2011 9 - Itching PENICILLIN 06/18/2016 16 - Unknown pet dander [Other] 10/20/2011 16 - Unknown Comments: Cat, Dog, Horse PREDNISONE 08/26/2012 14 - Other: See Comments Comments: Moodiness, restlessness, states feels like crap all over. SEASONAL ALLERGIES 11/04/2009 16 - Unknown Comments: Trees, grasses, weeds, ragweed. SINGULAIR (MONTELUKAST) 12/07/2017 16 - Unknown Comments: Possible rash SODIUM LAURYL SULFATE 09/30/2010 2 - Rash Comments: Skin irritation to scalp TREES 05/11/2012 14 - Other: See Comments ZOFRAN (ONDANSETRON HCL (PF)) 03/02/2011 14 - Other: See Comments Comments: Zofran causes cramping and constipation Date Reviewed: 04/11/2018 Reviewed by: Veronica WardSenior Software Development EngineerCarlyn Gamez - Fully Assessed Reason for Visit: Vaginal Problem [117] Cmt: Itching, burning, discharge Primary Visit Diagnosis:Acute vaginitis [N76.0] Other Visit Diagnosis:Screen for STD (sexually transmitted disease) [Z11.3] Order(s):GC/CHLAMYDIA DNA DET [SQGCCAMP] Order #: [id number] BACT/MISTY VAG GRAM STAIN [SQBVCNSM] Order #: [id number] FUTURE TRICHOMONAS PREP [SQTRICHO] Order #: [id number] fluconazole (DIFLUCAN) 150 mg tabletTake 1 tablet by mouth one time only for 1 dose.Disp: 1 tabletRfl: 0 nystatin (MYCOSTATIN) creamApply 1 application to affected area twice daily.Disp: 1 TubeRfl: 1 RAPID BV B/O [[id number]] Order #: [id number] Prescriptions as of 04/11/2018 Sig: ALBUTEROL SULFATE HFA 90 MCG/* Inhale 2 Puffs as instructed * VITAMIN D3 2,000 UNIT CAPSULE BECLOMETHASONE DIPROPIONATE 8* Inhale 2 Puffs as instructed * FAMOTIDINE 20 MG TABLET Take 1 tablet by mouth at bed* FLUTICASONE 50 MCG/ACTUATION * Use 2 Sprays in each nostril * LORATADINE 10 MG TABLET Take 1 tablet by mouth once d* MULTIVITAMIN CAPSULE Take 1 capsule by mouth once * FLUCONAZOLE 150 MG TABLET Take 1 tablet by mouth one ti* NYSTATIN 100,000 UNIT/GRAM TO* Apply 1 application to affect* TRIAMCINOLONE ACETONIDE 0.1 %* Apply 1 application to affect* Patient not taking: Reported on 04/11/2018 LACTOBACILLUS RHAMNOSUS GG 10* Take 1 capsule by mouth once * Patient not taking: Reported on 04/11/2018 METHYLCELLULOSE (WITH SUGAR) * Mix 1 heaping teaspoon into 8* Patient not taking: Reported on 04/08/2018 NAPROXEN 500 MG TABLET Take 1 tablet by mouth twice * Patient not taking: Reported on 04/08/2018 FOLIC ACID 400 MCG TABLET Take 400 mcg by mouth once da* BENZONATATE 100 MG CAPSULE Take 1 capsule by mouth every* Patient not taking: Reported on 03/16/2018 VITAMIN D-3 ORAL Take by mouth. NAPROXEN 500 MG TABLET Take 1 tablet by mouth twice * Patient not taking: Reported on 04/08/2018 KETOTIFEN 0.025 % (0.035 %) E* Use 1 Drop in both eyes twice* Patient not taking: Reported on 04/08/2018 ESCITALOPRAM 20 MG TABLET Take 1 tablet by mouth once d* Patient not taking: Reported on 03/16/2018 HYDROCORTISONE ACETATE 1 % TO* Apply 1 application to affect* Patient not taking: Reported on 04/11/2018 Problem List As Of Date 04/11/2018 Noted Resolved Frequency of urination [R35.0] INVALID FOR*10/20/2011 Pelvic pain in female [R10.2] INVALID FOR*10/20/2011 Microscopic hematuria [R31.29] INVALID FOR*09/15/2016 Other hammer toe (acquired) [M20.40] INVALID FOR*10/20/2011 Hallux valgus (acquired) [M20.10] INVALID FOR* Internal hemorrhoids without mention of complic*INVALID FOR*10/20/2011 Diarrhea [R19.7] INVALID FOR*10/20/2011 Abdominal pain, generalized [R10.84] INVALID FOR*10/20/2011 Low back pain [M54.5] INVALID FOR* Closed fracture of metatarsal bone(s) [S92.309A]INVALID FOR*09/15/2016 Tendonitis [M77.9] INVALID FOR*09/15/2016 Acne Vulgaris: Grade III Inflammatory and Comed*INVALID FOR*09/15/2016 Other seborrheic dermatitis [L21.8] INVALID FOR*09/15/2016 History of cold-induced urticaria [Z87.2] INVALID FOR* Seborrhea [L21.9] INVALID FOR*09/15/2016 Eczematous dermatitis [L30.9] INVALID FOR*09/15/2016 Xerosis cutis [L85.3] INVALID FOR*09/15/2016 Backache, unspecified [M54.9] INVALID FOR*09/15/2016 Asthma [J45.909] INVALID FOR* Attention-deficit hyperactivity disorder, predo*INVALID FOR* 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 Avoid synthetic fabrics and tight clothing. Sleep wearing shorts or pajama bottoms without underwear. Shower as soon as possible after exercise. Avoid clothing detergents and soaps with perfumes or dyes. Use warm (not hot) water to wash the vulva and if you use soap use a product designed for sensitive skin (like Dove or Cetaphil). Dove unscented bar soap only. Do not douche or use creams/powders in the vulvar area unless instructed by your physician. If you must douche, use only plain warm water. Make sure the vulva is dry before dressing by patting dry with a towel. Avoid vigorous rubbing with the towel. You may want to use the blow dryer (on the cool setting only!) on the vulva. The most important way to let your body heal is by avoiding scratching. Many patients find it difficult to avoid scratching at night when they are most aware of the itchiness. You can try taking Benadryl just before bedtime. Some women find it helpful to wear cotton gloves to bed to avoid scratching at night. Bacterial Vaginosis What is bacterial vaginosis? Bacterial vaginosis (BV) is a common infection that occurs in a woman's vagina. Bacterial vaginosis does not usually cause serious health problems, except in women. What causes BV? Health care providers do not yet fully understand what causes BV. Bacteria are a natural part of the vagina. For some reason, something upsets the normal balance of bacteria. Some of the bacteria grow too rapidly and cause infection. What are the symptoms of BV? Unfortunately, almost 50 percent of the women who have bacterial vaginosis do not have any symptoms. Common symptoms of BV include: White or discolored discharge Discharge that smells fishy Fishy smell that is strongest after sex Other symptoms can include: Itchy vagina Sore vagina Because BV has symptoms that are similar to other infections, it is important that you visit your health care provider if you think you have an infection in your vagina. Who can get BV? Any woman can get BV. The infection is most common in women between the ages of 18 and 44. BV is most common in sexually active women, although sexual transmission of BV has never been proven. Women who are not engaging in sex can also get BV. You may have a higher risk of getting BV if you: Have many sex partners Have a sexually transmitted infection (STI) How can I know if I have BV? Your health care provider can tell you if you have BV. He or she will examine you and will take a sample of fluid from your vagina. The fluid is viewed under a microscope. In most cases, your health care provider can tell right away if you have BV. How is BV treated? Bacterial vaginosis is treated using medicines that kill the infection. The most common medicine ordered for BV is called metronidazole. Common product names for this medicine are Flagyl? and Protostat?. Metronidazole may be given as a pill that is taken by mouth. It may also be given as a vaginal gel. Does the medication have side effects? Yes. You may have: Upset stomach Metal taste in your mouth Heartburn Don't drink alcohol while you are taking metronidazole. You can become very sick to your stomach. Call your health care provider if you have these or any other side effects. Can I treat myself for BV? No. Bacterial vaginosis can only be treated with medicines ordered by your health care provider. You cannot purchase [id number] products to treat BV. Products for douching and treating yeast infections will not cure BV. Should I be treated for BV if I am ? Yes, but not during the first three months of . Some studies have shown that having the infection during may cause early labor and premature . Tell your health care provider if you are . Also let your health care provider know if you think that you might be . You and your health care provider should discuss whether or not the infection should be treated. How can I protect myself from BV? Ways to prevent BV are not yet known. Female hygiene products like douches and deodorants will not cure the infection. These products may make the infection worse. To maintain your overall good health: Eat a well-balanced diet Exercise Manage stress levels Get a pelvic exam as directed by your provider When should I call my doctor? You should call your health care provider any time if: Your vaginal discharge changes color, becomes heavier, or smells different You notice itching, burning, swelling, or soreness around the vagina ?Copyright 3636-6815 The [facility]. All rights reserved. This information is provided by the [facility] and is not intended to replace the medical advice of your doctor or health care provider. Please consult your health care provider for advice about a specific medical condition. For additional written health information, please contact the Health Information Center at the [facility] or toll-free extension [phone] or visit [email or web address] This document was last reviewed on: 2010 VAGINAL YEAST INFECTION What causes a yeast infection? A yeast infection is caused by several different fungi that normally grow in the body. (Yeast is a kind of fungus). A change in the chemical balance in the vagina allows the fungus to grow too rapidly and cause symptoms. Yeast infections most often occur in a woman's vagina. Yeast infections can occur in other parts of the body and in men. Though uncomfortable, yeast infections are not serious and can be cured. What are the symptoms of a yeast infection? Common symptoms: Intense vaginal itching Thick, odorless discharge (might resemble cottage cheese) Less common symptoms: Sore vagina Lower abdominal pain Vaginal rash Burning during urination Painful sex Why do yeast infections occur? All of the reasons why yeast infections occur are not yet understood. What is known is that conditions that usually control fungus can change, allowing the fungus to grow rapidly. Some factors that might cause yeast infections include: control pills Poor nutrition Antibiotic treatment Lack of sleep Diabetes Stress HIVAIDS Can yeast infections recur? Yes. Yeast infections often recur. Some women find that they get yeast infections frequently. Do I need to see a doctor if I think I have a yeast infection? Vaginal discharges have several different causes. If you are fairly certain that you have a yeast infection, you can treat yourself. See your health care provider promptly if the symptoms do not improve. Creams and suppositories can be purchased from a drugstore and used to treat the infection. It's important to follow all of the directions on the product label. Sometimes yeast infections are treated with medicines taken by the mouth. These must be ordered by your health care provider. How can I help prevent yeast infections? Wear loose clothing made from natural fibers (cotton, linen, silk). Avoid wearing pantyhose, tights, or leggings. Avoid wearing tight pants. Don't douche. (Douching can kill bacteria that control fungus.) Limit use of feminine deodorant. Limit use of deodorant tampons or pads. Change out of wet clothing, especially bathing suits, as soon as you can. Avoid frequent hot tub baths. Wash underwear in hot water. Eat a well-balanced diet. Eat yogurt. Use acidophilus tablets. If you have diabetes, keep your blood sugar level as close to normal as possible. What if I have frequent yeast infections? See your health care provider and: Get a blood sugar test for diabetes Get tested for HIV/AIDS ? Copyright 8517-6923 The [facility]. All rights reserved. This information is provided by the [facility] and is not intended to replace the medical advice of your doctor or health care provider. Please consult your health care provider for advice about a specific medical condition. For additional written health information, please contact the Health Information Center at the [facility] or toll-free extension [phone]. This document was last reviewed on: 2004 index#5018 Prescriptions ordered this encounter Disp Refills Start End FLUCONAZOLE 150 MG TABLET 1 ta* 0 04/11/2018 04/11/2018 Route: ORAL Sig: Take 1 tablet by mouth one time only for 1 dose. NYSTATIN 100,000 UNIT/GRAM TOPICAL C* 1 Tu* 1 04/11/2018 Route: TOPICAL Sig: Apply 1 application to affected area twice daily. 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 Angelica Andujar is a 37 year old female who presents for vaginal pruritis and burning for 3 days. Began after completing Flagyl for BV. Vaginal discharge: moderate amount, yellowish white, thick Itching: YES Dyspareunia: N/A, no SA since onset of symptoms Fever/chills: No Abdominal pain: Yes, mild lower abdomen Bladder: Negative for dysuria or frequency Bowel: No blood in stool, pain with BM, tarry stool, persistent diarrhea or constipation Any new sexual partners or concern for STD exposure: New partner 1 week ago, unprotected Any history of STDs: chlamydia 2005, trichomonas 2010 Does your partner have any new complaints: No Are you currently taking any medications to treat vaginitis: No Do you use feminine sprays, douches or deodorants: No Menstrual cycle: every 28-30 with 5 days of light flow Contraception: none Last pap: 2012, normal Past medical, surgical, social history, medications and allergies reviewed and updated. OBJECTIVE: BP 104/62 Wt 192 lb (87.1kg) LMP 03/12/2018 GENERAL: Well developed, well nourished in no apparent distress ABDOMEN: soft, non-tender and no masses PELVIC: labia excoriated, normal Bartholin's glands, urethra, Zoar's glands, no vulvar lesions, no cervical lesions, good vaginal support, normal appearing perineal body and perianal region, abnormal discharge thick, white BIMANUAL: uterus normal size, shape and consistency, no adnexal masses and non-tender. RECTOVAGINAL: deferred. ASSESSMENT/PLAN: 1. Acute vaginitis - ICD9: 616.10, ICD10: N76.0 (primary diagnosis) - suspect yeast - GC/CHLAMYDIA DNA DET - BACT/MISTY VAG GRAM STAIN - TRICHOMONAS PREP - FLUCONAZOLE 150 MG TABLET - RAPID BV B/O - negative 2. Screen for STD (sexually transmitted disease) - ICD9: V74.5, ICD10: Z11.3 - unprotected intercourse with new partner one week ago - GC/CHLAMYDIA DNA DET - BACT/MISTY VAG GRAM STAIN - TRICHOMONAS PREP Follow-up as needed. Veronica Gamez APRN.CNP PROGRESS Observed: 04/08/2018 Status: COMPLETED Source: [place] 2:59 PM [facility] REPOSITORY HNO ID: [id number] Author: Ian Ying Service: (none) Author Type: Physician Type: Progress Notes Filed: 04/08/2018 3:22 PM Note Text: Patient presents with: Rash: Flare up x 3 hours HPI: Rash: Location: arms, abdomen, back at the waist, backs of the knees Duration: Since this morning, Pruritis: Yes Pain: Change: it was more bright red earlier today Bleeding/ulceration/blister/pustule: Small red dots Contacts with rash: Concerned about a classmate who she had been around who was treated for scabies Exposure: Treated 3 days ago for rash, possibly from new shampoo. Treatment: Almost out of triamcinolone cream. Takes claritin daily. MEDICATIONS: triamcinolone acetonide (KENALOG) 0.1 % cream Apply 1 application to affected area three times daily. Apply sparingly to area for rash/itching. lactobacillus rhamnosus (CULTURELLE) 10 billion cell capsule Take 1 capsule by mouth once daily. albuterol HFA (PROAIR HFA) 90 mcg/actuation inhaler Inhale 2 Puffs as instructed every 4 hours as needed for Wheezing/Shortness of Breath. VITAMIN D-3 2,000 unit cap beclomethasone (QVAR) 80 mcg/actuation inhaler Inhale 2 Puffs as instructed twice daily. famotidine (PEPCID) 20 mg tablet Take 1 tablet by mouth at bedtime as needed. fluticasone (FLONASE) 50 mcg/actuation nasal spray Use 2 Sprays in each nostril once daily. loratadine (CLARITIN) 10 mg tablet Take 1 tablet by mouth once daily. methylcellulose, with sugar, (CITRUCEL, SUCROSE,) oral powder Mix 1 heaping teaspoon into 8 ox of water and take by mouth once a day naproxen (NAPROSYN) 500 mg tablet Take 1 tablet by mouth twice daily with meals. FOR PAIN. TAKE WITH FOOD. folic acid 400 mcg tablet Take 400 mcg by mouth once daily. benzonatate (TESSALON PERLE) 100 mg capsule Take 1 capsule by mouth every 8 hours as needed for Cough. CALCIUM CARBONATE/VITAMIN D3 (VITAMIN D-3 ORAL) Take by mouth. naproxen (NAPROSYN) 500 mg tablet Take 1 tablet by mouth twice daily as needed (for pain/inflammation). Take with food. ketotifen fumarate (ZADITOR) 0.025 % (0.035 %) ophthalmic solution Use 1 Drop in both eyes twice daily. As needed. escitalopram oxalate (LEXAPRO) 20 mg tablet Take 1 tablet by mouth once daily. Hydrocortisone Acetate 1 % crea Apply 1 application to affected area twice daily. Multivitamin capsule Take 1 capsule by mouth once daily. ALLERGIES: ALLERGIES Allergen Reactions - Anti-Bacterial Jennifer* Rash - Bees Unknown Listed on records from [facility] - Benzalkonium Chlori* Other: See Comments Skin irritations - Clindamycin GI Upset - Doxycycline GI Upset stomach cramps - Dust Mites Unknown Dust mites and cockroaches - Hand Loan Servicing Officer [Eth* Rash PT HAS SENSITIVE SKIN. O.K. FOR MEDICAL PROFESSIONAL TO USE HAND LAWN CARE SPECIALIST AND THEN TOUCH HER, BUT SHE HERSELF DOES NOT USE IT. - Iodine Rash - Lactose Intolerance* - Nisqually Anaphylaxis - Mold Unknown - Morphine Itching - Penicillin Unknown - Pet Dander [Other] Unknown Cat, Dog, Horse - Prednisone Other: See Comments Moodiness, restlessness, states feels like crap all over. - Seasonal Allergies Unknown Trees, grasses, weeds, ragweed. - Singulair [[place]el[place]* Unknown Possible rash - Sodium Lauryl Sulfa* Rash Skin irritation to scalp - Trees Other: See Comments - Zofran [Ondansetron* Other: See Comments Zofran causes cramping and constipation VITALS: BP 116/68 Pulse 88 Temp 36.4 ?C (97.6 ?F) Resp 16 Wt 88.5 kg (195 lb) LMP 03/12/2018 BMI 30.54 kg/m? PHYSICAL EXAM: GEN: alert, no acute distress, alert SKIN: Faint reddish macules, mostly 2-6mm sparsely on the arms and abdomen. No visible rash on the back. ASSESSMENT/PLAN: 1. Rash - ICD9: 782.1, ICD10: R21 Fading reddish rash, possible hives earlier today. Antihistamine recommended. Continue claritin. She does not like the drowsiness she has with benadryl. She may add zantac to claritin. - PERMETHRIN 5 % TOPICAL CREAM printed to use if she continues to have concerns about scabies rash. Ian Ying MD CNOV Observed: 04/08/2018 Status: COMPLETED Source: [place] 2:30 PM [facility] REPOSITORY Office Visit (WSTR) ANGELICA ANDUJAR ([id number]) 1980 F Date Time Provider Department 04/08/18 2:30 PM IAN YING [facility] During your visit today, we recorded the following information about you: Temperature Pulse Respiration Blood pressure 97.6 degrees 88/minute 16/minute 116/68 Weight 88.5 kg Ian Ying MD 04/08/2018 3:22 PM Signed Patient presents with: Rash: Flare up x 3 hours HPI: Rash: Location: arms, abdomen, back at the waist, backs of the knees Duration: Since this morning, Pruritis: Yes Pain: Change: it was more bright red earlier today Bleeding/ulceration/blister/pustule: Small red dots Contacts with rash: Concerned about a classmate who she had been around who was treated for scabies Exposure: Treated 3 days ago for rash, possibly from new shampoo. Treatment: Almost out of triamcinolone cream. Takes claritin daily. MEDICATIONS: triamcinolone acetonide (KENALOG) 0.1 % cream Apply 1 application to affected area three times daily. Apply sparingly to area for rash/itching. lactobacillus rhamnosus (CULTURELLE) 10 billion cell capsule Take 1 capsule by mouth once daily. albuterol HFA (PROAIR HFA) 90 mcg/actuation inhaler Inhale 2 Puffs as instructed every 4 hours as needed for Wheezing/Shortness of Breath. VITAMIN D-3 2,000 unit cap beclomethasone (QVAR) 80 mcg/actuation inhaler Inhale 2 Puffs as instructed twice daily. famotidine (PEPCID) 20 mg tablet Take 1 tablet by mouth at bedtime as needed. fluticasone (FLONASE) 50 mcg/actuation nasal spray Use 2 Sprays in each nostril once daily. loratadine (CLARITIN) 10 mg tablet Take 1 tablet by mouth once daily. methylcellulose, with sugar, (CITRUCEL, SUCROSE,) oral powder Mix 1 heaping teaspoon into 8 ox of water and take by mouth once a day naproxen (NAPROSYN) 500 mg tablet Take 1 tablet by mouth twice daily with meals. FOR PAIN. TAKE WITH FOOD. folic acid 400 mcg tablet Take 400 mcg by mouth once daily. benzonatate (TESSALON PERLE) 100 mg capsule Take 1 capsule by mouth every 8 hours as needed for Cough. CALCIUM CARBONATE/VITAMIN D3 (VITAMIN D-3 ORAL) Take by mouth. naproxen (NAPROSYN) 500 mg tablet Take 1 tablet by mouth twice daily as needed (for pain/inflammation). Take with food. ketotifen fumarate (ZADITOR) 0.025 % (0.035 %) ophthalmic solution Use 1 Drop in both eyes twice daily. As needed. escitalopram oxalate (LEXAPRO) 20 mg tablet Take 1 tablet by mouth once daily. Hydrocortisone Acetate 1 % crea Apply 1 application to affected area twice daily. Multivitamin capsule Take 1 capsule by mouth once daily. ALLERGIES: ALLERGIES Allergen Reactions - Anti-Bacterial Jennifer* Rash - Bees Unknown Listed on records from [facility] - Benzalkonium Chlori* Other: See Comments Skin irritations - Clindamycin GI Upset - Doxycycline GI Upset stomach cramps - Dust Mites Unknown Dust mites and cockroaches - Hand Loan Servicing Officer [Eth* Rash PT HAS SENSITIVE SKIN. O.K. FOR MEDICAL PROFESSIONAL TO USE HAND LAWN CARE SPECIALIST AND THEN TOUCH HER, BUT SHE HERSELF DOES NOT USE IT. - Iodine Rash - Lactose Intolerance* - Nisqually Anaphylaxis - Mold Unknown - Morphine Itching - Penicillin Unknown - Pet Dander [Other] Unknown Cat, Dog, Horse - Prednisone Other: See Comments Moodiness, restlessness, states feels like crap all over. - Seasonal Allergies Unknown Trees, grasses, weeds, ragweed. - Singulair [[place]el[place]* Unknown Possible rash - Sodium Lauryl Sulfa* Rash Skin irritation to scalp - Trees Other: See Comments - Zofran [Ondansetron* Other: See Comments Zofran causes cramping and constipation VITALS: BP 116/68 Pulse 88 Temp 36.4 ?C (97.6 ?F) Resp 16 Wt 88.5 kg (195 lb) LMP 03/12/2018 BMI 30.54 kg/m? PHYSICAL EXAM: GEN: alert, no acute distress, alert SKIN: Faint reddish macules, mostly 2-6mm sparsely on the arms and abdomen. No visible rash on the back. ASSESSMENT/PLAN: 1. Rash - ICD9: 782.1, ICD10: R21 Fading reddish rash, possible hives earlier today. Antihistamine recommended. Continue claritin. She does not like the drowsiness she has with benadryl. She may add zantac to claritin. - PERMETHRIN 5 % TOPICAL CREAM printed to use if she continues to have concerns about scabies rash. Ian Ying MD Referring Provider: SELF [200] Allergies As of Date: 04/08/2018 Noted Allergy Reaction ANTI-BACTERIAL CLEANSING (BENZETH*10/26/2012 2 - Rash BEES 07/16/2010 16 - Unknown Comments: Listed on records from [facility] BENZALKONIUM CHLORIDE 09/08/2012 14 - Other: See Comments Comments: Skin irritations CLINDAMYCIN 03/27/2018 8 - GI Upset DOXYCYCLINE 12/13/2012 8 - GI Upset Comments: stomach cramps DUST MITES 04/26/2012 16 - Unknown Comments: Dust mites and cockroaches HAND LAWN CARE SPECIALIST (ETHYL ALCOHOL (SK*11/04/2009 2 - Rash Comments: PT HAS SENSITIVE SKIN. O.K. FOR MEDICAL PROFESSIONAL TO USE HAND LAWN CARE SPECIALIST AND THEN TOUCH HER, BUT SHE HERSELF DOES NOT USE IT. IODINE 02/18/2011 2 - Rash LACTOSE INTOLERANCE (LACTASE) 11/04/2009 SAUK-SUIATTLE 12/07/2017 10 - Anaphylaxis MOLD 04/26/2012 16 - Unknown MORPHINE 03/02/2011 9 - Itching PENICILLIN 06/18/2016 16 - Unknown pet dander [Other] 10/20/2011 16 - Unknown Comments: Cat, Dog, Horse PREDNISONE 08/26/2012 14 - Other: See Comments Comments: Moodiness, restlessness, states feels like crap all over. SEASONAL ALLERGIES 11/04/2009 16 - Unknown Comments: Trees, grasses, weeds, ragweed. SINGULAIR (MONTELUKAST) 12/07/2017 16 - Unknown Comments: Possible rash SODIUM LAURYL SULFATE 09/30/2010 2 - Rash Comments: Skin irritation to scalp TREES 05/11/2012 14 - Other: See Comments ZOFRAN (ONDANSETRON HCL (PF)) 03/02/2011 14 - Other: See Comments Comments: Zofran causes cramping and constipation Date Reviewed: 03/30/2018 Reviewed by: [facility] HospitalCarlyn Gamez - Fully Assessed Reason for Visit: Rash [1087] Cmt: Flare up x 3 hours Primary Visit Diagnosis:Rash [R21] Order(s):permethrin (ELIMITE) 5 % creamApply 1 application to affected area one time only for 1 dose. massage into skin from neck to feet, leave on 8-12hrs, wash off; Info: repeat 2wks if live mites persist. Itching may persist after effective treatment.Disp: 1 BottleRfl: 1 Prescriptions as of 04/08/2018 Sig: TRIAMCINOLONE ACETONIDE 0.1 %* Apply 1 application to affect* LACTOBACILLUS RHAMNOSUS GG 10* Take 1 capsule by mouth once * ALBUTEROL SULFATE HFA 90 MCG/* Inhale 2 Puffs as instructed * VITAMIN D3 2,000 UNIT CAPSULE BECLOMETHASONE DIPROPIONATE 8* Inhale 2 Puffs as instructed * FAMOTIDINE 20 MG TABLET Take 1 tablet by mouth at bed* FLUTICASONE 50 MCG/ACTUATION * Use 2 Sprays in each nostril * LORATADINE 10 MG TABLET Take 1 tablet by mouth once d* PERMETHRIN 5 % TOPICAL CREAM Apply 1 application to affect* METHYLCELLULOSE (WITH SUGAR) * Mix 1 heaping teaspoon into 8* Patient not taking: Reported on 04/08/2018 NAPROXEN 500 MG TABLET Take 1 tablet by mouth twice * Patient not taking: Reported on 04/08/2018 FOLIC ACID 400 MCG TABLET Take 400 mcg by mouth once da* BENZONATATE 100 MG CAPSULE Take 1 capsule by mouth every* Patient not taking: Reported on 03/16/2018 VITAMIN D-3 ORAL Take by mouth. NAPROXEN 500 MG TABLET Take 1 tablet by mouth twice * Patient not taking: Reported on 04/08/2018 KETOTIFEN 0.025 % (0.035 %) E* Use 1 Drop in both eyes twice* Patient not taking: Reported on 04/08/2018 ESCITALOPRAM 20 MG TABLET Take 1 tablet by mouth once d* Patient not taking: Reported on 03/16/2018 HYDROCORTISONE ACETATE 1 % TO* Apply 1 application to affect* Patient taking differently: Apply 1 application to affect* MULTIVITAMIN CAPSULE Take 1 capsule by mouth once * Problem List As Of Date 04/08/2018 Noted Resolved Frequency of urination [R35.0] INVALID FOR*10/20/2011 Pelvic pain in female [R10.2] INVALID FOR*10/20/2011 Microscopic hematuria [R31.29] INVALID FOR*09/15/2016 Other hammer toe (acquired) [M20.40] INVALID FOR*10/20/2011 Hallux valgus (acquired) [M20.10] INVALID FOR* Internal hemorrhoids without mention of complic*INVALID FOR*10/20/2011 Diarrhea [R19.7] INVALID FOR*10/20/2011 Abdominal pain, generalized [R10.84] INVALID FOR*10/20/2011 Low back pain [M54.5] INVALID FOR* Closed fracture of metatarsal bone(s) [S92.309A]INVALID FOR*09/15/2016 Tendonitis [M77.9] INVALID FOR*09/15/2016 Acne Vulgaris: Grade III Inflammatory and Comed*INVALID FOR*09/15/2016 Other seborrheic dermatitis [L21.8] INVALID FOR*09/15/2016 History of cold-induced urticaria [Z87.2] INVALID FOR* Seborrhea [L21.9] INVALID FOR*09/15/2016 Eczematous dermatitis [L30.9] INVALID FOR*09/15/2016 Xerosis cutis [L85.3] INVALID FOR*09/15/2016 Backache, unspecified [M54.9] INVALID FOR*09/15/2016 Asthma [J45.909] INVALID FOR* Attention-deficit hyperactivity disorder, predo*INVALID FOR* Pain disorder with psychological component [F45*INVALID FOR* Adjustment disorder with mixed anxiety and depr*INVALID FOR* Chronic midline low back pain without sciatica *INVALID FOR* Cervicalgia [M54.2] INVALID FOR* Degeneration of cervical intervertebral disc [M*INVALID FOR* Allergic rhinitis [J30.9] INVALID FOR* Prescriptions ordered this encounter Disp Refills Start End PERMETHRIN 5 % TOPICAL CREAM 1 Diogenes* 1 04/08/2018 04/08/2018 Class: Print RX Route: TOPICAL Sig: Apply 1 application to affected area one time only for 1 dose. massage into skin from neck to feet, leave on 8-12hrs, wash off; Info: repeat 2wks if live mites persist. Itching may persist after effective treatment. Encounter Status:Closed by IAN YING MD on 04/08/18 PROGRESS Observed: 04/05/2018 Status: COMPLETED Source: [place] 11:31 AM [facility] REPOSITORY HNO ID: [id number] Author: Keshia Carranza Service: (none) Author Type: Nurse Practitioner Type: Progress Notes Filed: 04/05/2018 11:34 AM Note Text: Subjective HPI Pt presents with itchy rash to bilateral ear, arms and inner thighs x 3 hours. Only change in products/exposures was shampoo and conditioner 3 days ago. Has not applied any OTC medications or taken any oral medications. Denies lip/tongue swelling, difficulty swallowing/breathing. No hx atopic dermatitis. Review of Systems Constitutional: Negative for chills and fever. Respiratory: Negative for shortness of breath, wheezing and stridor. Skin: Positive for itching and rash. Objective Physical Exam Constitutional: She is oriented to person, place, and time and well-developed, well-nourished, and in no distress. No distress. Neurological: She is alert and oriented to person, place, and time. Skin: Skin is warm and dry. Rash noted. Rash is maculopapular and urticarial. She is not diaphoretic. [place], Maculopapular lesions scattered to areas noted. Several lesions to bilateral inner thighs urticarial. No burrows, no signs of secondary infection. No drainage, heat, edema. +blanching. BP 122/72 Pulse 76 Temp 36.7 ?C (98 ?F) (Tympanic) Resp 16 Wt 88.5 kg (195 lb) LMP 03/12/2018 BMI 30.54 kg/m? .Patient presents with: Rash: itching all over x 3 hours PAST MEDICAL HISTORY Diagnosis Date - 11/2009 - Anxiety - Asthma - Depression - Recurrent UTI - Seasonal allergies - STD (sexually transmitted disease) PAST SURGICAL HISTORY Procedure Laterality Date - COLONOSCOPY W/BX 03/02/11 - EGD W/O OR W/BRUSH/WASH 11/14/2012 EGD - MED INC ALL EX DRUG 11/2009 - PAST SURGICAL HISTORY OF WISDOM TEETH ALLERGIES Anti-Bacterial Cleansing [Benzethonium Chloride]; Bees; Benzalkonium Chloride; Clindamycin; Doxycycline; Dust Mites; Hand Loan Servicing Officer [Ethyl Alcohol (Skin Cleanser)]; Iodine; Lactose Intolerance [Lactase]; Nisqually; Mold; Morphine; Penicillin; Pet Dander [Other]; Prednisone; Seasonal Allergies; Singulair [Montelukast]; Sodium Lauryl Sulfate; Trees; Zofran [Ondansetron Hcl (Pf)] MEDICATIONS triamcinolone acetonide (KENALOG) 0.1 % cream Apply 1 application to affected area three times daily. Apply sparingly to area for rash/itching. metroNIDAZOLE (FLAGYL) 500 mg tablet Take 1 tablet by mouth twice daily for 7 days. lactobacillus rhamnosus (CULTURELLE) 10 billion cell capsule Take 1 capsule by mouth once daily. methylcellulose, with sugar, (CITRUCEL, SUCROSE,) oral powder Mix 1 heaping teaspoon into 8 ox of water and take by mouth once a day naproxen (NAPROSYN) 500 mg tablet Take 1 tablet by mouth twice daily with meals. FOR PAIN. TAKE WITH FOOD. folic acid 400 mcg tablet Take 400 mcg by mouth once daily. benzonatate (TESSALON PERLE) 100 mg capsule Take 1 capsule by mouth every 8 hours as needed for Cough. albuterol HFA (PROAIR HFA) 90 mcg/actuation inhaler Inhale 2 Puffs as instructed every 4 hours as needed for Wheezing/Shortness of Breath. CALCIUM CARBONATE/VITAMIN D3 (VITAMIN D-3 ORAL) Take by mouth. VITAMIN D-3 2,000 unit cap beclomethasone (QVAR) 80 mcg/actuation inhaler Inhale 2 Puffs as instructed twice daily. famotidine (PEPCID) 20 mg tablet Take 1 tablet by mouth at bedtime as needed. naproxen (NAPROSYN) 500 mg tablet Take 1 tablet by mouth twice daily as needed (for pain/inflammation). Take with food. ketotifen fumarate (ZADITOR) 0.025 % (0.035 %) ophthalmic solution Use 1 Drop in both eyes twice daily. As needed. escitalopram oxalate (LEXAPRO) 20 mg tablet Take 1 tablet by mouth once daily. fluticasone (FLONASE) 50 mcg/actuation nasal spray Use 2 Sprays in each nostril once daily. loratadine (CLARITIN) 10 mg tablet Take 1 tablet by mouth once daily. Hydrocortisone Acetate 1 % crea Apply 1 application to affected area twice daily. Multivitamin capsule Take 1 capsule by mouth once daily. FAMILY HISTORY Problem Relation Age of Onset - Alcohol/Drug Mother - Arthritis Mother - Asthma Mother - Cancer Mother CANCER - Hypertension Mother - Stroke Mother - Cancer Father LUNG CANCER - Emphysema Father - Asthma Brother - Breast Cancer Maternal Aunt - Hypertension Brother Social History Substance Use Topics - Smoking status: Former Smoker Years: 3.00 Types: Cigarettes Quit date: 03/03/2018 - Smokeless tobacco: Never Used Comment: 2 weeks no cigarettes - Alcohol use Yes Comment: Seldom ASSESSMENT/PLAN: 1. Rash - ICD9: 782.1, ICD10: R21 - TRIAMCINOLONE ACETONIDE 0.1 % TOPICAL CREAM The patient is instructed to return or seek emergency treatment if symptoms become worse or with any acute change in condition. The patient verbalizes understanding and is in agreement with plan of care. Keshia Carranza CNP CNOV Observed: 04/05/2018 Status: COMPLETED Source: [place] 10:00 AM [facility] REPOSITORY Office Visit (WSTR) ANGELICA ANDUJAR ([id number]) 1980 F Date Time Provider Department 04/05/18 10:00 AM KESHIA CARRANZA [facility] During your visit today, we recorded the following information about you: Temperature Pulse Respiration Blood pressure 98 degrees 76/minute 16/minute 122/72 Weight 88.5 kg Keshia ValderramaCHACHO pham.MOBILE EQUIPMENT SERVICER 04/05/2018 11:34 AM Signed Subjective HPI Pt presents with itchy rash to bilateral ear, arms and inner thighs x 3 hours. Only change in products/exposures was shampoo and conditioner 3 days ago. Has not applied any OTC medications or taken any oral medications. Denies lip/tongue swelling, difficulty swallowing/breathing. No hx atopic dermatitis. Review of Systems Constitutional: Negative for chills and fever. Respiratory: Negative for shortness of breath, wheezing and stridor. Skin: Positive for itching and rash. Objective Physical Exam Constitutional: She is oriented to person, place, and time and well-developed, well-nourished, and in no distress. No distress. Neurological: She is alert and oriented to person, place, and time. Skin: Skin is warm and dry. Rash noted. Rash is maculopapular and urticarial. She is not diaphoretic. [place], Maculopapular lesions scattered to areas noted. Several lesions to bilateral inner thighs urticarial. No burrows, no signs of secondary infection. No drainage, heat, edema. +blanching. BP 122/72 Pulse 76 Temp 36.7 ?C (98 ?F) (Tympanic) Resp 16 Wt 88.5 kg (195 lb) LMP 03/12/2018 BMI 30.54 kg/m? .Patient presents with: Rash: itching all over x 3 hours PAST MEDICAL HISTORY Diagnosis Date - 11/2009 - Anxiety - Asthma - Depression - Recurrent UTI - Seasonal allergies - STD (sexually transmitted disease) PAST SURGICAL HISTORY Procedure Laterality Date - COLONOSCOPY W/BX 03/02/11 - EGD W/O OR W/BRUSH/WASH 11/14/2012 EGD - MED INC ALL EX DRUG 11/2009 - PAST SURGICAL HISTORY OF WISDOM TEETH ALLERGIES Anti-Bacterial Cleansing [Benzethonium Chloride]; Bees; Benzalkonium Chloride; Clindamycin; Doxycycline; Dust Mites; Hand Loan Servicing Officer [Ethyl Alcohol (Skin Cleanser)]; Iodine; Lactose Intolerance [Lactase]; Nisqually; Mold; Morphine; Penicillin; Pet Dander [Other]; Prednisone; Seasonal Allergies; Singulair [Montelukast]; Sodium Lauryl Sulfate; Trees; Zofran [Ondansetron Hcl (Pf)] MEDICATIONS triamcinolone acetonide (KENALOG) 0.1 % cream Apply 1 application to affected area three times daily. Apply sparingly to area for rash/itching. metroNIDAZOLE (FLAGYL) 500 mg tablet Take 1 tablet by mouth twice daily for 7 days. lactobacillus rhamnosus (CULTURELLE) 10 billion cell capsule Take 1 capsule by mouth once daily. methylcellulose, with sugar, (CITRUCEL, SUCROSE,) oral powder Mix 1 heaping teaspoon into 8 ox of water and take by mouth once a day naproxen (NAPROSYN) 500 mg tablet Take 1 tablet by mouth twice daily with meals. FOR PAIN. TAKE WITH FOOD. folic acid 400 mcg tablet Take 400 mcg by mouth once daily. benzonatate (TESSALON PERLE) 100 mg capsule Take 1 capsule by mouth every 8 hours as needed for Cough. albuterol HFA (PROAIR HFA) 90 mcg/actuation inhaler Inhale 2 Puffs as instructed every 4 hours as needed for Wheezing/Shortness of Breath. CALCIUM CARBONATE/VITAMIN D3 (VITAMIN D-3 ORAL) Take by mouth. VITAMIN D-3 2,000 unit cap beclomethasone (QVAR) 80 mcg/actuation inhaler Inhale 2 Puffs as instructed twice daily. famotidine (PEPCID) 20 mg tablet Take 1 tablet by mouth at bedtime as needed. naproxen (NAPROSYN) 500 mg tablet Take 1 tablet by mouth twice daily as needed (for pain/inflammation). Take with food. ketotifen fumarate (ZADITOR) 0.025 % (0.035 %) ophthalmic solution Use 1 Drop in both eyes twice daily. As needed. escitalopram oxalate (LEXAPRO) 20 mg tablet Take 1 tablet by mouth once daily. fluticasone (FLONASE) 50 mcg/actuation nasal spray Use 2 Sprays in each nostril once daily. loratadine (CLARITIN) 10 mg tablet Take 1 tablet by mouth once daily. Hydrocortisone Acetate 1 % crea Apply 1 application to affected area twice daily. Multivitamin capsule Take 1 capsule by mouth once daily. FAMILY HISTORY Problem Relation Age of Onset - Alcohol/Drug Mother - Arthritis Mother - Asthma Mother - Cancer Mother CANCER - Hypertension Mother - Stroke Mother - Cancer Father LUNG CANCER - Emphysema Father - Asthma Brother - Breast Cancer Maternal Aunt - Hypertension Brother Social History Substance Use Topics - Smoking status: Former Smoker Years: 3.00 Types: Cigarettes Quit date: 03/03/2018 - Smokeless tobacco: Never Used Comment: 2 weeks no cigarettes - Alcohol use Yes Comment: Seldom ASSESSMENT/PLAN: 1. Rash - ICD9: 782.1, ICD10: R21 - TRIAMCINOLONE ACETONIDE 0.1 % TOPICAL CREAM The patient is instructed to return or seek emergency treatment if symptoms become worse or with any acute change in condition. The patient verbalizes understanding and is in agreement with plan of care. Keshia Carranza CNP Referring Provider: SELF [[id number]] Allergies As of Date: 04/05/2018 Noted Allergy Reaction ANTI-BACTERIAL CLEANSING (BENZETH*10/26/2012 2 - Rash BEES 07/16/2010 16 - Unknown Comments: Listed on records from [facility] BENZALKONIUM CHLORIDE 09/08/2012 14 - Other: See Comments Comments: Skin irritations CLINDAMYCIN 03/27/2018 8 - GI Upset DOXYCYCLINE 12/13/2012 8 - GI Upset Comments: stomach cramps DUST MITES 04/26/2012 16 - Unknown Comments: Dust mites and cockroaches HAND LAWN CARE SPECIALIST (ETHYL ALCOHOL (SK*11/04/2009 2 - Rash Comments: PT HAS SENSITIVE SKIN. O.K. FOR MEDICAL PROFESSIONAL TO USE HAND LAWN CARE SPECIALIST AND THEN TOUCH HER, BUT SHE HERSELF DOES NOT USE IT. IODINE 02/18/2011 2 - Rash LACTOSE INTOLERANCE (LACTASE) 11/04/2009 SAUK-SUIATTLE 12/07/2017 10 - Anaphylaxis MOLD 04/26/2012 16 - Unknown MORPHINE 03/02/2011 9 - Itching PENICILLIN 06/18/2016 16 - Unknown pet dander [Other] 10/20/2011 16 - Unknown Comments: Cat, Dog, Horse PREDNISONE 08/26/2012 14 - Other: See Comments Comments: Moodiness, restlessness, states feels like crap all over. SEASONAL ALLERGIES 11/04/2009 16 - Unknown Comments: Trees, grasses, weeds, ragweed. SINGULAIR (MONTELUKAST) 12/07/2017 16 - Unknown Comments: Possible rash SODIUM LAURYL SULFATE 09/30/2010 2 - Rash Comments: Skin irritation to scalp TREES 05/11/2012 14 - Other: See Comments ZOFRAN (ONDANSETRON HCL (PF)) 03/02/2011 14 - Other: See Comments Comments: Zofran causes cramping and constipation Date Reviewed: 03/30/2018 Reviewed by: Veronica Gamez - Fully Assessed Reason for Visit: Rash [1087] Cmt: itching all over x 3 hours Primary Visit Diagnosis:Rash [R21] Order(s):triamcinolone acetonide (KENALOG) 0.1 % creamApply 1 application to affected area three times daily. Apply sparingly to area for rash/itching.Disp: 80 gRfl: 1 Prescriptions as of 04/05/2018 Sig: TRIAMCINOLONE ACETONIDE 0.1 %* Apply 1 application to affect* METRONIDAZOLE 500 MG TABLET Take 1 tablet by mouth twice * LACTOBACILLUS RHAMNOSUS GG 10* Take 1 capsule by mouth once * METHYLCELLULOSE (WITH SUGAR) * Mix 1 heaping teaspoon into 8* NAPROXEN 500 MG TABLET Take 1 tablet by mouth twice * FOLIC ACID 400 MCG TABLET Take 400 mcg by mouth once da* BENZONATATE 100 MG CAPSULE Take 1 capsule by mouth every* Patient not taking: Reported on 03/16/2018 ALBUTEROL SULFATE HFA 90 MCG/* Inhale 2 Puffs as instructed * VITAMIN D-3 ORAL Take by mouth. VITAMIN D3 2,000 UNIT CAPSULE BECLOMETHASONE DIPROPIONATE 8* Inhale 2 Puffs as instructed * FAMOTIDINE 20 MG TABLET Take 1 tablet by mouth at bed* NAPROXEN 500 MG TABLET Take 1 tablet by mouth twice * Patient taking differently: Take 250 mg by mouth twice da* KETOTIFEN 0.025 % (0.035 %) E* Use 1 Drop in both eyes twice* ESCITALOPRAM 20 MG TABLET Take 1 tablet by mouth once d* Patient not taking: Reported on 03/16/2018 FLUTICASONE 50 MCG/ACTUATION * Use 2 Sprays in each nostril * LORATADINE 10 MG TABLET Take 1 tablet by mouth once d* HYDROCORTISONE ACETATE 1 % TO* Apply 1 application to affect* Patient taking differently: Apply 1 application to affect* MULTIVITAMIN CAPSULE Take 1 capsule by mouth once * Problem List As Of Date 04/05/2018 Noted Resolved Frequency of urination [R35.0] INVALID FOR*10/20/2011 Pelvic pain in female [R10.2] INVALID FOR*10/20/2011 Microscopic hematuria [R31.29] INVALID FOR*09/15/2016 Other hammer toe (acquired) [M20.40] INVALID FOR*10/20/2011 Hallux valgus (acquired) [M20.10] INVALID FOR* Internal hemorrhoids without mention of complic*INVALID FOR*10/20/2011 Diarrhea [R19.7] INVALID FOR*10/20/2011 Abdominal pain, generalized [R10.84] INVALID FOR*10/20/2011 Low back pain [M54.5] INVALID FOR* Closed fracture of metatarsal bone(s) [S92.309A]INVALID FOR*09/15/2016 Tendonitis [M77.9] INVALID FOR*09/15/2016 Acne Vulgaris: Grade III Inflammatory and Comed*INVALID FOR*09/15/2016 Other seborrheic dermatitis [L21.8] INVALID FOR*09/15/2016 History of cold-induced urticaria [Z87.2] INVALID FOR* Seborrhea [L21.9] INVALID FOR*09/15/2016 Eczematous dermatitis [L30.9] INVALID FOR*09/15/2016 Xerosis cutis [L85.3] INVALID FOR*09/15/2016 Backache, unspecified [M54.9] INVALID FOR*09/15/2016 Asthma [J45.909] INVALID FOR* Attention-deficit hyperactivity disorder, predo*INVALID FOR* Pain disorder with psychological component [F45*INVALID FOR* Adjustment disorder with mixed anxiety and depr*INVALID FOR* Chronic midline low back pain without sciatica *INVALID FOR* Cervicalgia [M54.2] INVALID FOR* Degeneration of cervical intervertebral disc [M*INVALID FOR* Allergic rhinitis [J30.9] INVALID FOR* Prescriptions ordered this encounter Disp Refills Start End TRIAMCINOLONE ACETONIDE 0.1 % TOPICA* 80 g 1 04/05/2018 Route: TOPICAL Sig: Apply 1 application to affected area three times daily. Apply sparingly to area for rash/itching. Letter Text Keshia Carranza, LEGAL RECRUITER.[facility] Urgent Care [address] [facility] [address] Dept: [phone] 04/05/2018 Angelica Andujar [address] [facility] [address] [facility] [address] To Whom it May Concern: This is to certify that Angelica Andujar was seen at our office for medical care. Angelica may return to school on 04/05/2018, non contagious. If you have any questions please feel free to call. Sincerely: Keshia Carranza APRN.CNP Encounter Status:Closed by KESHIA CARRANZA CNP on 04/05/18 Observed: 03/30/2018 Status: F Source: [facility] BACT/CAND VAG [facility] 11:50 AM [facility] REPOSITORY Sp. Request/Comment: - Swab Smear Result - Stain results consistent with normal vaginal keisha. No Yeast observed Performed By: #### BVCNSM #### [facility] [address] [place] [address] CNOV Observed: 03/30/2018 Status: COMPLETED Source: [place] 11:45 AM [facility] REPOSITORY Office Visit (WOOB) ANGELICA ANDUJAR ([id number]) 1980 F Date Time Provider Department 03/30/18 11:45 AM VERONICA GAMEZ ([facility]) WOO[facility] During your visit today, we recorded the following information about you: Blood pressure Weight Last Period 112/70 87.5 kg 03/12/18 Veronica Gamez APRN.CNP 03/30/2018 12:15 PM Signed Adhesive Bonding Machine Operator offered: Patient declines. Angelica Andujar is a 37 year old female who presents for problem visit bacterial vaginosis. HPI: Treated for BV 2.5 weeks ago - clindamycin gel caused upset stomach, cold chills so she used only one dose. Continues to have symptoms - low abdominal pain and vaginal irritation. No odor or itching. Vaginal discharge whitish and thin. Has history of BV. Is not currently sexually active for past 2 months. Is also having urinary frequency and back pain - thinks she may have a UTI from having catheter inserted one week ago at the hospital. GC/chlamydia negative 03/16/18. PAST MEDICAL HISTORY Diagnosis Date - 11/2009 - Anxiety - Asthma - Depression - Recurrent UTI - Seasonal allergies - STD (sexually transmitted disease) PAST SURGICAL HISTORY Procedure Laterality Date - COLONOSCOPY W/BX 03/02/11 - EGD W/O OR W/BRUSH/WASH 11/14/2012 EGD - MED INC ALL EX DRUG 11/2009 - PAST SURGICAL HISTORY OF WISDOM TEETH FAMILY HISTORY Problem Relation Age of Onset - Alcohol/Drug Mother - Arthritis Mother - Asthma Mother - Cancer Mother CANCER - Hypertension Mother - Stroke Mother - Cancer Father LUNG CANCER - Emphysema Father - Asthma Brother - Breast Cancer Maternal Aunt - Hypertension Brother Social History Marital status: Single Spouse name: Years of education: GED Number of children: 0 Occupational History Occupation Employer Comment Unemployed Social History Main Topics Smoking status: Former Smoker Packs/day: 0.00 Years: 3.00 Types: Cigarettes Quit date: 03/03/2018 Smokeless tobacco: Never Used Comment: 2 weeks no cigarettes Alcohol use: Yes Comment: Seldom Drug use: No Sexual activity: Yes Partners with: Male control/protection: None Current Outpatient Prescriptions: lactobacillus rhamnosus (CULTURELLE) 10 billion cell capsule Take 1 capsule by mouth once daily. albuterol HFA (PROAIR HFA) 90 mcg/actuation inhaler Inhale 2 Puffs as instructed every 4 hours as needed for Wheezing/Shortness of Breath. VITAMIN D-3 2,000 unit cap beclomethasone (QVAR) 80 mcg/actuation inhaler Inhale 2 Puffs as instructed twice daily. famotidine (PEPCID) 20 mg tablet Take 1 tablet by mouth at bedtime as needed. ketotifen fumarate (ZADITOR) 0.025 % (0.035 %) ophthalmic solution Use 1 Drop in both eyes twice daily. As needed. fluticasone (FLONASE) 50 mcg/actuation nasal spray Use 2 Sprays in each nostril once daily. loratadine (CLARITIN) 10 mg tablet Take 1 tablet by mouth once daily. Multivitamin capsule Take 1 capsule by mouth once daily. methylcellulose, with sugar, (CITRUCEL, SUCROSE,) oral powder Mix 1 heaping teaspoon into 8 ox of water and take by mouth once a day naproxen (NAPROSYN) 500 mg tablet Take 1 tablet by mouth twice daily with meals. FOR PAIN. TAKE WITH FOOD. folic acid 400 mcg tablet Take 400 mcg by mouth once daily. benzonatate (TESSALON PERLE) 100 mg capsule Take 1 capsule by mouth every 8 hours as needed for Cough. (Patient not taking: Reported on 03/16/2018 ) CALCIUM CARBONATE/VITAMIN D3 (VITAMIN D-3 ORAL) Take by mouth. naproxen (NAPROSYN) 500 mg tablet Take 1 tablet by mouth twice daily as needed (for pain/inflammation). Take with food. (Patient taking differently: Take 250 mg by mouth twice daily as needed (for pain/inflammation). Take with food.) escitalopram oxalate (LEXAPRO) 20 mg tablet Take 1 tablet by mouth once daily. (Patient not taking: Reported on 03/16/2018 ) Hydrocortisone Acetate 1 % crea Apply 1 application to affected area twice daily. (Patient taking differently: Apply 1 application to affected area as needed.) No current facility-administered medications for this visit. Allergies As of Date: 03/30/2018 Allergen Noted Reaction ANTI-BACTERIAL CLEANSING [BENZETH*10/26/2012 Rash BEES 07/16/2010 Unknown BENZALKONIUM CHLORIDE 09/08/2012 Other: See Comments CLINDAMYCIN 03/27/2018 GI Upset DOXYCYCLINE 12/13/2012 GI Upset DUST MITES 04/26/2012 Unknown FLAGYL [METRONIDAZOLE HCL] 06/20/2012 Hives HAND LAWN CARE SPECIALIST [ETHYL ALCOHOL (SK*11/04/2009 Rash IODINE 02/18/2011 Rash LACTOSE INTOLERANCE [LACTASE] 11/04/2009 SAUK-SUIATTLE 12/07/2017 Anaphylaxis MOLD 04/26/2012 Unknown MORPHINE 03/02/2011 Itching PENICILLIN 06/18/2016 Unknown PET DANDER [OTHER] 10/20/2011 Unknown PREDNISONE 08/26/2012 Other: See Comments SEASONAL ALLERGIES 11/04/2009 Unknown SINGULAIR [MONTELUKAST] 12/07/2017 Unknown SODIUM LAURYL SULFATE 09/30/2010 Rash TREES 05/11/2012 Other: See Comments ZOFRAN [ONDANSETRON HCL (PF)] 03/02/2011 Other: See Comments Fully Assessed 03/30/2018 REVIEW OF SYSTEMS Abdomen:See HPI. Bladder:See HPI.. Allergies and current medication updated:Yes EXAM: BP 112/70 Wt 193 lb (87.5kg) LMP 03/12/2018 GENERAL: pleasant, female in no apparent distress CHEST: Normal inspiratory effort ABDOMEN: soft, non-tender and no masses PELVIC: external genitalia normal, normal Bartholin's glands, urethra, Zoar's glands, no vulvar lesions, no cervical lesions, good vaginal support, normal appearing perineal body and perianal region, abnormal discharge small amount white BIMANUAL: uterus normal size, shape and consistency, no adnexal masses and non-tender NEURO: alert and oriented x3,exam grossly non-focal ASSESSMENT/PLAN: 1. Acute vaginitis - ICD9: 616.10, ICD10: N76.0 (primary diagnosis) - BV culture positive for Gardnerella 03/16/18. Used only one dose of clindamycin gel due to side effects. Continues to be symptomatic. - RAPID BV B/O neg - METRONIDAZOLE 500 MG TABLET 2. Urinary frequency - ICD9: 788.41, ICD10: R35.0 acute - UA DIP B/O negative Follow-up as needed. Veronica Gamez APRN.JOSE ROBERTO Gamez APRN.JOSE ROBERTO 03/30/2018 12:55 PM Signed Addended by: VERONICA GAMEZ on: 03/30/2018 12:55 PM Modules accepted: Orders Referring Provider: SELF [200] Allergies As of Date: 03/30/2018 Noted Allergy Reaction ANTI-BACTERIAL CLEANSING (BENZETH*10/26/2012 2 - Rash BEES 07/16/2010 16 - Unknown Comments: Listed on records from Samantha Hood BENZALKONIUM CHLORIDE 09/08/2012 14 - Other: See Comments Comments: Skin irritations CLINDAMYCIN 03/27/2018 8 - GI Upset DOXYCYCLINE 12/13/2012 8 - GI Upset Comments: stomach cramps DUST MITES 04/26/2012 16 - Unknown Comments: Dust mites and cockroaches HAND LAWN CARE SPECIALIST (ETHYL ALCOHOL (SK*11/04/2009 2 - Rash Comments: PT HAS SENSITIVE SKIN. O.K. FOR MEDICAL PROFESSIONAL TO USE HAND LAWN CARE SPECIALIST AND THEN TOUCH HER, BUT SHE HERSELF DOES NOT USE IT. IODINE 02/18/2011 2 - Rash LACTOSE INTOLERANCE (LACTASE) 11/04/2009 SAUK-SUIATTLE 12/07/2017 10 - Anaphylaxis MOLD 04/26/2012 16 - Unknown MORPHINE 03/02/2011 9 - Itching PENICILLIN 06/18/2016 16 - Unknown pet dander [Other] 10/20/2011 16 - Unknown Comments: Cat, Dog, Horse PREDNISONE 08/26/2012 14 - Other: See Comments Comments: Moodiness, restlessness, states feels like crap all over. SEASONAL ALLERGIES 11/04/2009 16 - Unknown Comments: Trees, grasses, weeds, ragweed. SINGULAIR (MONTELUKAST) 12/07/2017 16 - Unknown Comments: Possible rash SODIUM LAURYL SULFATE 09/30/2010 2 - Rash Comments: Skin irritation to scalp TREES 05/11/2012 14 - Other: See Comments ZOFRAN (ONDANSETRON HCL (PF)) 03/02/2011 14 - Other: See Comments Comments: Zofran causes cramping and constipation Date Reviewed: 03/30/2018 Reviewed by: Veronica Gamez - Fully Assessed Reason for Visit: Vaginal Problem [117] Primary Visit Diagnosis:Acute vaginitis [N76.0] Other Visit Diagnosis:Urinary frequency [R35.0] Order(s):UA DIP B/O [2250379] Order #: [id number] RAPID BV B/O [[id number]] Order #: [id number] metroNIDAZOLE (FLAGYL) 500 mg tabletTake 1 tablet by mouth twice daily for 7 days.Disp: 14 tabletRfl: 0 BACT/MISTY VAG GRAM STAIN [SQBVCNSM] Order #: [id number] FUTURE Prescriptions as of 03/30/2018 Sig: LACTOBACILLUS RHAMNOSUS GG 10* Take 1 capsule by mouth once * ALBUTEROL SULFATE HFA 90 MCG/* Inhale 2 Puffs as instructed * VITAMIN D3 2,000 UNIT CAPSULE BECLOMETHASONE DIPROPIONATE 8* Inhale 2 Puffs as instructed * FAMOTIDINE 20 MG TABLET Take 1 tablet by mouth at bed* KETOTIFEN 0.025 % (0.035 %) E* Use 1 Drop in both eyes twice* FLUTICASONE 50 MCG/ACTUATION * Use 2 Sprays in each nostril * LORATADINE 10 MG TABLET Take 1 tablet by mouth once d* MULTIVITAMIN CAPSULE Take 1 capsule by mouth once * METRONIDAZOLE 500 MG TABLET Take 1 tablet by mouth twice * METHYLCELLULOSE (WITH SUGAR) * Mix 1 heaping teaspoon into 8* NAPROXEN 500 MG TABLET Take 1 tablet by mouth twice * FOLIC ACID 400 MCG TABLET Take 400 mcg by mouth once da* BENZONATATE 100 MG CAPSULE Take 1 capsule by mouth every* Patient not taking: Reported on 03/16/2018 VITAMIN D-3 ORAL Take by mouth. NAPROXEN 500 MG TABLET Take 1 tablet by mouth twice * Patient taking differently: Take 250 mg by mouth twice da* ESCITALOPRAM 20 MG TABLET Take 1 tablet by mouth once d* Patient not taking: Reported on 03/16/2018 HYDROCORTISONE ACETATE 1 % TO* Apply 1 application to affect* Patient taking differently: Apply 1 application to affect* Problem List As Of Date 03/30/2018 Noted Resolved Frequency of urination [R35.0] INVALID FOR*10/20/2011 Pelvic pain in female [R10.2] INVALID FOR*10/20/2011 Microscopic hematuria [R31.29] INVALID FOR*09/15/2016 Other hammer toe (acquired) [M20.40] INVALID FOR*10/20/2011 Hallux valgus (acquired) [M20.10] INVALID FOR* Internal hemorrhoids without mention of complic*INVALID FOR*10/20/2011 Diarrhea [R19.7] INVALID FOR*10/20/2011 Abdominal pain, generalized [R10.84] INVALID FOR*10/20/2011 Low back pain [M54.5] INVALID FOR* Closed fracture of metatarsal bone(s) [S92.309A]INVALID FOR*09/15/2016 Tendonitis [M77.9] INVALID FOR*09/15/2016 Acne Vulgaris: Grade III Inflammatory and Comed*INVALID FOR*09/15/2016 Other seborrheic dermatitis [L21.8] INVALID FOR*09/15/2016 History of cold-induced urticaria [Z87.2] INVALID FOR* Seborrhea [L21.9] INVALID FOR*09/15/2016 Eczematous dermatitis [L30.9] INVALID FOR*09/15/2016 Xerosis cutis [L85.3] INVALID FOR*09/15/2016 Backache, unspecified [M54.9] INVALID FOR*09/15/2016 Asthma [J45.909] INVALID FOR* Attention-deficit hyperactivity disorder, predo*INVALID FOR* Pain disorder with psychological component [F45*INVALID FOR* Adjustment disorder with mixed anxiety and depr*INVALID FOR* Chronic midline low back pain without sciatica *INVALID FOR* Cervicalgia [M54.2] INVALID FOR* Degeneration of cervical intervertebral disc [M*INVALID FOR* Allergic rhinitis [J30.9] INVALID FOR* Prescriptions ordered this encounter Disp Refills Start End METRONIDAZOLE 500 MG TABLET 14 t* 0 03/30/2018 04/06/2018 Route: ORAL Sig: Take 1 tablet by mouth twice daily for 7 days. Encounter Status:Closed by VERONICA GAMEZ on 03/30/18 PROGRESS Observed: 03/30/2018 Status: COMPLETED Source: [place] 11:38 AM [facility] REPOSITORY [facility] ID: [id number] Author: Veronica (Senior Software Development Engineer) Federico Service: (none) Author Type: Nurse Practitioner Type: Progress Notes Filed: 03/30/2018 12:15 PM Note Text: Adhesive Bonding Machine Operator offered: Patient declines. Angelica Andujar is a 37 year old female who presents for problem visit bacterial vaginosis. HPI: Treated for BV 2.5 weeks ago - clindamycin gel caused upset stomach, cold chills so she used only one dose. Continues to have symptoms - low abdominal pain and vaginal irritation. No odor or itching. Vaginal discharge whitish and thin. Has history of BV. Is not currently sexually active for past 2 months. Is also having urinary frequency and back pain - thinks she may have a UTI from having catheter inserted one week ago at the hospital. GC/chlamydia negative 03/16/18. PAST MEDICAL HISTORY Diagnosis Date - 11/2009 - Anxiety - Asthma - Depression - Recurrent UTI - Seasonal allergies - STD (sexually transmitted disease) PAST SURGICAL HISTORY Procedure Laterality Date - COLONOSCOPY W/BX 03/02/11 - EGD W/O OR W/BRUSH/WASH 11/14/2012 EGD - MED INC ALL EX DRUG 11/2009 - PAST SURGICAL HISTORY OF WISDOM TEETH FAMILY HISTORY Problem Relation Age of Onset - Alcohol/Drug Mother - Arthritis Mother - Asthma Mother - Cancer Mother CANCER - Hypertension Mother - Stroke Mother - Cancer Father LUNG CANCER - Emphysema Father - Asthma Brother - Breast Cancer Maternal Aunt - Hypertension Brother Social History Marital status: Single Spouse name: Years of education: GED Number of children: 0 Occupational History Occupation Employer Comment Unemployed Social History Main Topics Smoking status: Former Smoker Packs/day: 0.00 Years: 3.00 Types: Cigarettes Quit date: 03/03/2018 Smokeless tobacco: Never Used Comment: 2 weeks no cigarettes Alcohol use: Yes Comment: Seldom Drug use: No Sexual activity: Yes Partners with: Male control/protection: None Current Outpatient Prescriptions: lactobacillus rhamnosus (CULTURELLE) 10 billion cell capsule Take 1 capsule by mouth once daily. albuterol HFA (PROAIR HFA) 90 mcg/actuation inhaler Inhale 2 Puffs as instructed every 4 hours as needed for Wheezing/Shortness of Breath. VITAMIN D-3 2,000 unit cap beclomethasone (QVAR) 80 mcg/actuation inhaler Inhale 2 Puffs as instructed twice daily. famotidine (PEPCID) 20 mg tablet Take 1 tablet by mouth at bedtime as needed. ketotifen fumarate (ZADITOR) 0.025 % (0.035 %) ophthalmic solution Use 1 Drop in both eyes twice daily. As needed. fluticasone (FLONASE) 50 mcg/actuation nasal spray Use 2 Sprays in each nostril once daily. loratadine (CLARITIN) 10 mg tablet Take 1 tablet by mouth once daily. Multivitamin capsule Take 1 capsule by mouth once daily. methylcellulose, with sugar, (CITRUCEL, SUCROSE,) oral powder Mix 1 heaping teaspoon into 8 ox of water and take by mouth once a day naproxen (NAPROSYN) 500 mg tablet Take 1 tablet by mouth twice daily with meals. FOR PAIN. TAKE WITH FOOD. folic acid 400 mcg tablet Take 400 mcg by mouth once daily. benzonatate (TESSALON PERLE) 100 mg capsule Take 1 capsule by mouth every 8 hours as needed for Cough. (Patient not taking: Reported on 03/16/2018 ) CALCIUM CARBONATE/VITAMIN D3 (VITAMIN D-3 ORAL) Take by mouth. naproxen (NAPROSYN) 500 mg tablet Take 1 tablet by mouth twice daily as needed (for pain/inflammation). Take with food. (Patient taking differently: Take 250 mg by mouth twice daily as needed (for pain/inflammation). Take with food.) escitalopram oxalate (LEXAPRO) 20 mg tablet Take 1 tablet by mouth once daily. (Patient not taking: Reported on 03/16/2018 ) Hydrocortisone Acetate 1 % crea Apply 1 application to affected area twice daily. (Patient taking differently: Apply 1 application to affected area as needed.) No current facility-administered medications for this visit. Allergies As of Date: 03/30/2018 Allergen Noted Reaction ANTI-BACTERIAL CLEANSING [BENZETH*10/26/2012 Rash BEES 07/16/2010 Unknown BENZALKONIUM CHLORIDE 09/08/2012 Other: See Comments CLINDAMYCIN 03/27/2018 GI Upset DOXYCYCLINE 12/13/2012 GI Upset DUST MITES 04/26/2012 Unknown FLAGYL [METRONIDAZOLE HCL] 06/20/2012 Hives HAND LAWN CARE SPECIALIST [ETHYL ALCOHOL (SK*11/04/2009 Rash IODINE 02/18/2011 Rash LACTOSE INTOLERANCE [LACTASE] 11/04/2009 SAUK-SUIATTLE 12/07/2017 Anaphylaxis MOLD 04/26/2012 Unknown MORPHINE 03/02/2011 Itching PENICILLIN 06/18/2016 Unknown PET DANDER [OTHER] 10/20/2011 Unknown PREDNISONE 08/26/2012 Other: See Comments SEASONAL ALLERGIES 11/04/2009 Unknown SINGULAIR [MONTELUKAST] 12/07/2017 Unknown SODIUM LAURYL SULFATE 09/30/2010 Rash TREES 05/11/2012 Other: See Comments ZOFRAN [ONDANSETRON HCL (PF)] 03/02/2011 Other: See Comments Fully Assessed 03/30/2018 REVIEW OF SYSTEMS Abdomen:See HPI. Bladder:See HPI.. Allergies and current medication updated:Yes EXAM: BP 112/70 Wt 193 lb (87.5kg) LMP 03/12/2018 GENERAL: pleasant, female in no apparent distress CHEST: Normal inspiratory effort ABDOMEN: soft, non-tender and no masses PELVIC: external genitalia normal, normal Bartholin's glands, urethra, Zoar's glands, no vulvar lesions, no cervical lesions, good vaginal support, normal appearing perineal body and perianal region, abnormal discharge small amount white BIMANUAL: uterus normal size, shape and consistency, no adnexal masses and non-tender NEURO: alert and oriented x3,exam grossly non-focal ASSESSMENT/PLAN: 1. Acute vaginitis - ICD9: 616.10, ICD10: N76.0 (primary diagnosis) - BV culture positive for Gardnerella 03/16/18. Used only one dose of clindamycin gel due to side effects. Continues to be symptomatic. - RAPID BV B/O neg - METRONIDAZOLE 500 MG TABLET 2. Urinary frequency - ICD9: 788.41, ICD10: R35.0 acute - UA DIP B/O negative Follow-up as needed. Veronica Gamez APRN.MOBILE EQUIPMENT SERVICER PROGRESS Observed: 03/27/2018 Status: COMPLETED Source: [place] 1:39 PM [facility] REPOSITORY [facility] ID: [id number] Author: Maureen Zelaya (Pa) Service: (none) Author Type: Physician Cinder Pit Crane Operator Type: Progress Notes Filed: 03/29/2018 2:54 PM Note Text: HISTORY AND PHYSICAL Angelica Andujar 1980 REFERRING PHYSICIAN: Self CHIEF COMPLAINT: Consult (Consult GERD/ Constipation) HPI: The patient is a 37 year old female who presents with abdominal complaints. Appointment notes state that the patient was referred to surgery for GERD and need for EGD. The patient however tells me that she is actually here today for long-standing constipation issues, states these have been going on at least 6 months. Patient was seen in the emergency department at [facility] on 03/24/18 for constipation, those records have been reviewed. She had a KUB done in the emergency department which showed increased stool consistent with constipation, no obstruction or free air. She was discharged and advised to use magnesium citrate, fluids and fiber and follow up with her primary care provider. The patient states she is still having issues with constipation, though less severe than when she presented to the emergency department. She denies any blood in stools or black tarry stools. Denies weight changes. Denies any change in stool caliber. Denies family history of colon cancer. She had recently had an episode of acid reflux with some associated nausea, states she tried pepcid at that time without much relief. Denies any nausea currently. Patient notes she will have some vague, occasionally sharp mid and upper abdominal discomfort when she is very constipated. Patient has multiple questions regarding dietary recommendations that she states she was given with her ED discharge paperwork, specifically avoidance of processed foods. Patient also states I really just need someone to write me for a medication for my bowels. Patient tells me she was instructed previously to use miralax but states she had issues with this thickening as she was not able to drink it fast enough, and wants an alternative. She notes also that she previously used to take a probiotic and would like another prescription for a probiotic. Angelica has been evaluated by GI previously for long history of abdominal complaints. She had undergone prior E[place] [address] Julio and lower endoscopy in [address] Pantoja. Upper endoscopy showed chronic inactive gastritis and her colonoscopy in 2010 was unremarkable. Prior to those studies patient had UGI-Small bowel follow through in 2009 which was unremarkable, and a HIDA scan that was unremarkable. She had been given a diagnosis of IBS in the past. Denies prior abdominal surgeries. PAST MEDICAL HISTORY Diagnosis Date - 11/2009 - Anxiety - Asthma - Depression - Recurrent UTI - Seasonal allergies - STD (sexually transmitted disease) PAST SURGICAL HISTORY Procedure Laterality Date - COLONOSCOPY W/BX 03/02/11 - EGD W/O OR W/BRUSH/WASH 11/14/2012 EGD - MED INC ALL EX DRUG 11/2009 - PAST SURGICAL HISTORY OF WISDOM TEETH Current Outpatient Prescriptions: albuterol HFA (PROAIR HFA) 90 mcg/actuation inhaler Inhale 2 Puffs as instructed every 4 hours as needed for Wheezing/Shortness of Breath. VITAMIN D-3 2,000 unit cap beclomethasone (QVAR) 80 mcg/actuation inhaler Inhale 2 Puffs as instructed twice daily. famotidine (PEPCID) 20 mg tablet Take 1 tablet by mouth at bedtime as needed. fluticasone (FLONASE) 50 mcg/actuation nasal spray Use 2 Sprays in each nostril once daily. Multivitamin capsule Take 1 capsule by mouth once daily. docusate sodium (COLACE) 100 mg capsule Take 1 capsule by mouth twice daily as needed for Constipation. naproxen (NAPROSYN) 500 mg tablet Take 1 tablet by mouth twice daily with meals. FOR PAIN. TAKE WITH FOOD. folic acid 400 mcg tablet Take 400 mcg by mouth once daily. benzonatate (TESSALON PERLE) 100 mg capsule Take 1 capsule by mouth every 8 hours as needed for Cough. (Patient not taking: Reported on 03/16/2018 ) CALCIUM CARBONATE/VITAMIN D3 (VITAMIN D-3 ORAL) Take by mouth. naproxen (NAPROSYN) 500 mg tablet Take 1 tablet by mouth twice daily as needed (for pain/inflammation). Take with food. (Patient taking differently: Take 250 mg by mouth twice daily as needed (for pain/inflammation). Take with food.) ketotifen fumarate (ZADITOR) 0.025 % (0.035 %) ophthalmic solution Use 1 Drop in both eyes twice daily. As needed. escitalopram oxalate (LEXAPRO) 20 mg tablet Take 1 tablet by mouth once daily. (Patient not taking: Reported on 03/16/2018 ) loratadine (CLARITIN) 10 mg tablet Take 1 tablet by mouth once daily. L.ACID/L.CASEI/B.BIF/B.FLOR/FOS (PROBIOTIC BLEND ORAL) Take by mouth. Hydrocortisone Acetate 1 % crea Apply 1 application to affected area twice daily. (Patient taking differently: Apply 1 application to affected area as needed.) No current facility-administered medications for this visit. ALLERGIES: Anti-Bacterial Cleansing [Benzethonium Chloride]; Bees; Benzalkonium Chloride; Clindamycin; Doxycycline; Dust Mites; Flagyl [Metronidazole Hcl]; Hand Loan Servicing Officer [Ethyl Alcohol (Skin Cleanser)]; Iodine; Lactose Intolerance [Lactase]; [place]; Mold; Morphine; Penicillin; Pet Dander [Other]; Prednisone; Seasonal Allergies; Singulair [Montelukast]; Sodium Lauryl Sulfate; Trees; Zofran [Ondansetron Hcl (Pf)] PERSONAL HISTORY: Social History Marital status: Single Spouse name: Years of education: GED Number of children: 0 Occupational History Occupation Employer Comment Unemployed Social History Main Topics Smoking status: Former Smoker Packs/day: 0.00 Years: 3.00 Types: Cigarettes Quit date: 03/03/2018 Smokeless tobacco: Never Used Comment: 2 weeks no cigarettes Alcohol use: Yes Comment: Seldom Drug use: No Sexual activity: Yes Partners with: Male control/protection: None FAMILY HISTORY: FAMILY HISTORY Problem Relation Age of Onset - Alcohol/Drug Mother - Arthritis Mother - Asthma Mother - Cancer Mother CANCER - Hypertension Mother - Stroke Mother - Cancer Father LUNG CANCER - Emphysema Father - Asthma Brother - Breast Cancer Maternal Aunt - Hypertension Brother REVIEW OF SYMPTOMS: The review of systems data was entered by the nurse and reviewed by il Nursing Notes: Dariusz Cali LPN 03/27/2018 1:15 PM Signed REVIEW OF SYSTEMS: General: The patient NOTES fatigue, denies weight loss, NOTES weight gain, denies feeling hot, and denies feelings of cold. Eyes: The patient denies glaucoma, denies eye injury/surgery, wears glasses or contacts. Ear/Nose/Throat: The patient NOTES allergies, denies hayfever, denies ear infections, and denies bloody noses. Cardiovascular: The patient denies chest pain, denies heart disease, denies high blood pressure,denies cardiac stent, denies prior heart attack, denies irregular heart beat, denies high cholesterol, denies poor circulation, denies heart failure, other cardiac issues, NOTES claudication, denies cold feet, denies peripheral arterial stent. Respiratory: The patient denies tuberculosis, denies pneumonia, NOTES frequent cough, denies pulmonary embolism, NOTES shortness of breath, and denies coughing up blood. Gastrointestinal: The patient denies difficulty swallowing, NOTES acid reflux, denies ulcers, denies vomiting, denies jaundice/hepatitis, denies gallbladder problems, denies black or tarry stools, NOTES hemorrhoids, denies bleeding from rectum, denies diverticulitis, NOTES constipation, denies diarrhea, denies loss of stool control, and denies hernias. Kidney/Bladder: The patient denies kidney stones, denies urine infections, and denies bloody urine. Skin: The patient denies a history of skin cancer, denies bleeding/changing moles, and denies a history of skin rash. Neurologic: The patient denies a history of epilepsy/convulsions, denies headaches, denies head/spinal injuries, and denies stroke/TIA. Psychiatric: The patient denies psychiatric medications, NOTES depression, and denies voices, denies substance abuse. Endocrine: The patient denies thyroid disorders, denies diabetes, and denies hormonal problems. Hematologic: The patient denies a history of bruising, denies bleeding, and denies anemia, denies blood clots. Infections: The patient denies a history of measles and mumps, denies rheumatic fever, and NOTES sexually transmitted diseases. Musculoskeletal: The patient NOTES back pain/injury, denies back problems,NOTES sciatica, NOTES knee/foot trouble, NOTES arthritis, or denies gout. When was patient's last Mammogram screening? 01/20 Last Colonoscopy: 02/13 Dariusz Cali LPN I have confirmed and edited as necessary, the PFSH and ROS obtained by others. PHYSICAL EXAMINATION: General: The patient is 37 year old female, well nourished, well hydrated in no acute distress. The patient is oriented to time, place, and person. VITALS: Blood pressure 118/78, pulse 84, weight 86.6 kg (191 lb). Body mass index is 29.91 kg/m?. Respiratory: Clear to auscultation and percussion. Normal respiratory excursion and pattern. Cardiac: Examination is regular rate and rhythm. Abdominal exam: Soft, nontender, with no palpable masses. No hepatosplenomegaly. No palpable hernias. Rectal exam: exam deferred Extremities: no clubbing, cyanosis or edema. No adenopathy. Other: LABORATORY VALUES: As Noted RADIOLOGIC STUDIES: As Noted Assessment IMPRESSION: constipation, intermittent upper abdominal discomfort and history of GERD. History of IBS PLAN: Discussed possible endoscopy for further evaluation of the chronic constipation as well as the acid reflux and epigastric discomfort. Patient is declining any procedures at this time. Patient states I really just think I need something I can take for something for my bowels. Reviewed recommendations for high-fiber diet, daily fiber supplement, probiotic. Patient requested Rx for the fiber and probiotic which was e-filed to [facility] Patient was also provided with printed patient information regarding constipation and dietary recommendations to help alleviate and prevent constipation, which we also discussed in the office. Patient instructed to follow up if symptoms worsen or persist despite these measures for further evaluation at that time Patient was given the opportunity to ask questions and have questions answered. Patient verbalized understanding of all above and agreed with the plan Diagnoses: (K59.00) Constipation, unspecified constipation type (primary encounter diagnosis) (R10.13) Epigastric pain I spent 50 minutes in the visit, with more than 50% of the total [id number] time of the visit in counseling / coordination of care. RAYMUNDO PrinceOV Observed: 03/27/2018 Status: COMPLETED Source: [place] 1:00 PM [facility] REPOSITORY Office Visit (GENSWS) ANGELICA ANDUJAR ([id number]) 1980 F Date Time Provider Department 03/27/18 1:00 PM MAUREEN ZELAYA) GENPHYLLISS During your visit today, we recorded the following information about you: Pulse Blood pressure Weight 84/minute 118/78 86.6 kg Dariusz Cali KELP CUTTER 03/27/2018 1:15 PM Signed REVIEW OF SYSTEMS: General: The patient NOTES fatigue, denies weight loss, NOTES weight gain, denies feeling hot, and denies feelings of cold. Eyes: The patient denies glaucoma, denies eye injury/surgery, wears glasses or contacts. Ear/Nose/Throat: The patient NOTES allergies, denies hayfever, denies ear infections, and denies bloody noses. Cardiovascular: The patient denies chest pain, denies heart disease, denies high blood pressure,denies cardiac stent, denies prior heart attack, denies irregular heart beat, denies high cholesterol, denies poor circulation, denies heart failure, other cardiac issues, NOTES claudication, denies cold feet, denies peripheral arterial stent. Respiratory: The patient denies tuberculosis, denies pneumonia, NOTES frequent cough, denies pulmonary embolism, NOTES shortness of breath, and denies coughing up blood. Gastrointestinal: The patient denies difficulty swallowing, NOTES acid reflux, denies ulcers, denies vomiting, denies jaundice/hepatitis, denies gallbladder problems, denies black or tarry stools, NOTES hemorrhoids, denies bleeding from rectum, denies diverticulitis, NOTES constipation, denies diarrhea, denies loss of stool control, and denies hernias. Kidney/Bladder: The patient denies kidney stones, denies urine infections, and denies bloody urine. Skin: The patient denies a history of skin cancer, denies bleeding/changing moles, and denies a history of skin rash. Neurologic: The patient denies a history of epilepsy/convulsions, denies headaches, denies head/spinal injuries, and denies stroke/TIA. Psychiatric: The patient denies psychiatric medications, NOTES depression, and denies voices, denies substance abuse. Endocrine: The patient denies thyroid disorders, denies diabetes, and denies hormonal problems. Hematologic: The patient denies a history of bruising, denies bleeding, and denies anemia, denies blood clots. Infections: The patient denies a history of measles and mumps, denies rheumatic fever, and NOTES sexually transmitted diseases. Musculoskeletal: The patient NOTES back pain/injury, denies back problems,NOTES sciatica, NOTES knee/foot trouble, NOTES arthritis, or denies gout. When was patient's last Mammogram screening? 01/20 Last Colonoscopy: 02/13 Dariusz Zelaya PA-C 03/29/2018 2:54 PM Signed HISTORY AND PHYSICAL Angelica Andujar 1980 REFERRING PHYSICIAN: Self CHIEF COMPLAINT: Consult (Consult GERD/ Constipation) HPI: The patient is a 37 year old female who presents with abdominal complaints. Appointment notes state that the patient was referred to surgery for GERD and need for EGD. The patient however tells me that she is actually here today for long-standing constipation issues, states these have been going on at least 6 months. Patient was seen in the emergency department at [facility] on 03/24/18 for constipation, those records have been reviewed. She had a KUB done in the emergency department which showed increased stool consistent with constipation, no obstruction or free air. She was discharged and advised to use magnesium citrate, fluids and fiber and follow up with her primary care provider. The patient states she is still having issues with constipation, though less severe than when she presented to the emergency department. She denies any blood in stools or black tarry stools. Denies weight changes. Denies any change in stool caliber. Denies family history of colon cancer. She had recently had an episode of acid reflux with some associated nausea, states she tried pepcid at that time without much relief. Denies any nausea currently. Patient notes she will have some vague, occasionally sharp mid and upper abdominal discomfort when she is very constipated. Patient has multiple questions regarding dietary recommendations that she states she was given with her ED discharge paperwork, specifically avoidance of processed foods. Patient also states I really just need someone to write me for a medication for my bowels. Patient tells me she was instructed previously to use miralax but states she had issues with this thickening as she was not able to drink it fast enough, and wants an alternative. She notes also that she previously used to take a probiotic and would like another prescription for a probiotic. Angelica has been evaluated by GI previously for long history of abdominal complaints. She had undergone prior EGD [place] [address] Julio and lower endoscopy in [address] Pantoja. Upper endoscopy showed chronic inactive gastritis and her colonoscopy in 2010 was unremarkable. Prior to those studies patient had UGI-Small bowel follow through in 2009 which was unremarkable, and a HIDA scan that was unremarkable. She had been given a diagnosis of IBS in the past. Denies prior abdominal surgeries. PAST MEDICAL HISTORY Diagnosis Date - 11/2009 - Anxiety - Asthma - Depression - Recurrent UTI - Seasonal allergies - STD (sexually transmitted disease) PAST SURGICAL HISTORY Procedure Laterality Date - COLONOSCOPY W/BX 03/02/11 - EGD W/O OR W/BRUSH/WASH 11/14/2012 EGD - MED INC ALL EX DRUG 11/2009 - PAST SURGICAL HISTORY OF WISDOM TEETH Current Outpatient Prescriptions: albuterol HFA (PROAIR HFA) 90 mcg/actuation inhaler Inhale 2 Puffs as instructed every 4 hours as needed for Wheezing/Shortness of Breath. VITAMIN D-3 2,000 unit cap beclomethasone (QVAR) 80 mcg/actuation inhaler Inhale 2 Puffs as instructed twice daily. famotidine (PEPCID) 20 mg tablet Take 1 tablet by mouth at bedtime as needed. fluticasone (FLONASE) 50 mcg/actuation nasal spray Use 2 Sprays in each nostril once daily. Multivitamin capsule Take 1 capsule by mouth once daily. docusate sodium (COLACE) 100 mg capsule Take 1 capsule by mouth twice daily as needed for Constipation. naproxen (NAPROSYN) 500 mg tablet Take 1 tablet by mouth twice daily with meals. FOR PAIN. TAKE WITH FOOD. folic acid 400 mcg tablet Take 400 mcg by mouth once daily. benzonatate (TESSALON PERLE) 100 mg capsule Take 1 capsule by mouth every 8 hours as needed for Cough. (Patient not taking: Reported on 03/16/2018 ) CALCIUM CARBONATE/VITAMIN D3 (VITAMIN D-3 ORAL) Take by mouth. naproxen (NAPROSYN) 500 mg tablet Take 1 tablet by mouth twice daily as needed (for pain/inflammation). Take with food. (Patient taking differently: Take 250 mg by mouth twice daily as needed (for pain/inflammation). Take with food.) ketotifen fumarate (ZADITOR) 0.025 % (0.035 %) ophthalmic solution Use 1 Drop in both eyes twice daily. As needed. escitalopram oxalate (LEXAPRO) 20 mg tablet Take 1 tablet by mouth once daily. (Patient not taking: Reported on 03/16/2018 ) loratadine (CLARITIN) 10 mg tablet Take 1 tablet by mouth once daily. L.ACID/L.CASEI/B.BIF/B.FLOR/FOS (PROBIOTIC BLEND ORAL) Take by mouth. Hydrocortisone Acetate 1 % crea Apply 1 application to affected area twice daily. (Patient taking differently: Apply 1 application to affected area as needed.) No current facility-administered medications for this visit. ALLERGIES: Anti-Bacterial Cleansing [Benzethonium Chloride]; Bees; Benzalkonium Chloride; Clindamycin; Doxycycline; Dust Mites; Flagyl [Metronidazole Hcl]; Hand Loan Servicing Officer [Ethyl Alcohol (Skin Cleanser)]; Iodine; Lactose Intolerance [Lactase]; Nisqually; Mold; Morphine; Penicillin; Pet Dander [Other]; Prednisone; Seasonal Allergies; Singulair [Montelukast]; Sodium Lauryl Sulfate; Trees; Zofran [Ondansetron Hcl (Pf)] PERSONAL HISTORY: Social History Marital status: Single Spouse name: Years of education: GED Number of children: 0 Occupational History Occupation Employer Comment Unemployed Social History Main Topics Smoking status: Former Smoker Packs/day: 0.00 Years: 3.00 Types: Cigarettes Quit date: 03/03/2018 Smokeless tobacco: Never Used Comment: 2 weeks no cigarettes Alcohol use: Yes Comment: Seldom Drug use: No Sexual activity: Yes Partners with: Male control/protection: None FAMILY HISTORY: FAMILY HISTORY Problem Relation Age of Onset - Alcohol/Drug Mother - Arthritis Mother - Asthma Mother - Cancer Mother CANCER - Hypertension Mother - Stroke Mother - Cancer Father LUNG CANCER - Emphysema Father - Asthma Brother - Breast Cancer Maternal Aunt - Hypertension Brother REVIEW OF SYMPTOMS: The review of systems data was entered by the nurse and reviewed by il Nursing Notes: Dariusz Cali LPN 03/27/2018 1:15 PM Signed REVIEW OF SYSTEMS: General: The patient NOTES fatigue, denies weight loss, NOTES weight gain, denies feeling hot, and denies feelings of cold. Eyes: The patient denies glaucoma, denies eye injury/surgery, wears glasses or contacts. Ear/Nose/Throat: The patient NOTES allergies, denies hayfever, denies ear infections, and denies bloody noses. Cardiovascular: The patient denies chest pain, denies heart disease, denies high blood pressure,denies cardiac stent, denies prior heart attack, denies irregular heart beat, denies high cholesterol, denies poor circulation, denies heart failure, other cardiac issues, NOTES claudication, denies cold feet, denies peripheral arterial stent. Respiratory: The patient denies tuberculosis, denies pneumonia, NOTES frequent cough, denies pulmonary embolism, NOTES shortness of breath, and denies coughing up blood. Gastrointestinal: The patient denies difficulty swallowing, NOTES acid reflux, denies ulcers, denies vomiting, denies jaundice/hepatitis, denies gallbladder problems, denies black or tarry stools, NOTES hemorrhoids, denies bleeding from rectum, denies diverticulitis, NOTES constipation, denies diarrhea, denies loss of stool control, and denies hernias. Kidney/Bladder: The patient denies kidney stones, denies urine infections, and denies bloody urine. Skin: The patient denies a history of skin cancer, denies bleeding/changing moles, and denies a history of skin rash. Neurologic: The patient denies a history of epilepsy/convulsions, denies headaches, denies head/spinal injuries, and denies stroke/TIA. Psychiatric: The patient denies psychiatric medications, NOTES depression, and denies voices, denies substance abuse. Endocrine: The patient denies thyroid disorders, denies diabetes, and denies hormonal problems. Hematologic: The patient denies a history of bruising, denies bleeding, and denies anemia, denies blood clots. Infections: The patient denies a history of measles and mumps, denies rheumatic fever, and NOTES sexually transmitted diseases. Musculoskeletal: The patient NOTES back pain/injury, denies back problems,NOTES sciatica, NOTES knee/foot trouble, NOTES arthritis, or denies gout. When was patient's last Mammogram screening? 01/20 Last Colonoscopy: 02/13 Dariusz Cali LPN I have confirmed and edited as necessary, the PFSH and ROS obtained by others. PHYSICAL EXAMINATION: General: The patient is 37 year old female, well nourished, well hydrated in no acute distress. The patient is oriented to time, place, and person. VITALS: Blood pressure 118/78, pulse 84, weight 86.6 kg (191 lb). Body mass index is 29.91 kg/m?. Respiratory: Clear to auscultation and percussion. Normal respiratory excursion and pattern. Cardiac: Examination is regular rate and rhythm. Abdominal exam: Soft, nontender, with no palpable masses. No hepatosplenomegaly. No palpable hernias. Rectal exam: exam deferred Extremities: no clubbing, cyanosis or edema. No adenopathy. Other: LABORATORY VALUES: As Noted RADIOLOGIC STUDIES: As Noted Assessment IMPRESSION: constipation, intermittent upper abdominal discomfort and history of GERD. History of IBS PLAN: Discussed possible endoscopy for further evaluation of the chronic constipation as well as the acid reflux and epigastric discomfort. Patient is declining any procedures at this time. Patient states I really just think I need something I can take for something for my bowels. Reviewed recommendations for high-fiber diet, daily fiber supplement, probiotic. Patient requested Rx for the fiber and probiotic which was e-filed to [facility] Patient was also provided with printed patient information regarding constipation and dietary recommendations to help alleviate and prevent constipation, which we also discussed in the office. Patient instructed to follow up if symptoms worsen or persist despite these measures for further evaluation at that time Patient was given the opportunity to ask questions and have questions answered. Patient verbalized understanding of all above and agreed with the plan Diagnoses: (K59.00) Constipation, unspecified constipation type (primary encounter diagnosis) (R10.13) Epigastric pain I spent 50 minutes in the visit, with more than 50% of the total [id number] time of the visit in counseling / coordination of care. RAYMUNDO Prince PA-C 03/27/2018 2:00 PM Signed -Trial of probiotic and daily fiber supplement -Drink plenty of fluids -Refer to handout for dietary recommendations -If symptoms persist despite these measures, follow up to discuss possible endoscopy Referring Provider: SELF [[id number]] Allergies As of Date: 03/27/2018 Noted Allergy Reaction ANTI-BACTERIAL CLEANSING (BENZETH*10/26/2012 2 - Rash BEES 07/16/2010 16 - Unknown Comments: Listed on records from [facility] BENZALKONIUM CHLORIDE 09/08/2012 14 - Other: See Comments Comments: Skin irritations CLINDAMYCIN 03/27/2018 8 - GI Upset DOXYCYCLINE 12/13/2012 8 - GI Upset Comments: stomach cramps DUST MITES 04/26/2012 16 - Unknown Comments: Dust mites and cockroaches FLAGYL (METRONIDAZOLE HCL) 06/20/2012 4 - Hives HAND LAWN CARE SPECIALIST (ETHYL ALCOHOL (SK*11/04/2009 2 - Rash Comments: PT HAS SENSITIVE SKIN. O.K. FOR MEDICAL PROFESSIONAL TO USE HAND LAWN CARE SPECIALIST AND THEN TOUCH HER, BUT SHE HERSELF DOES NOT USE IT. IODINE 02/18/2011 2 - Rash LACTOSE INTOLERANCE (LACTASE) 11/04/2009 SAUK-SUIATTLE 12/07/2017 10 - Anaphylaxis MOLD 04/26/2012 16 - Unknown MORPHINE 03/02/2011 9 - Itching PENICILLIN 06/18/2016 16 - Unknown pet dander [Other] 10/20/2011 16 - Unknown Comments: Cat, Dog, Horse PREDNISONE 08/26/2012 14 - Other: See Comments Comments: Moodiness, restlessness, states feels like crap all over. SEASONAL ALLERGIES 11/04/2009 16 - Unknown Comments: Trees, grasses, weeds, ragweed. SINGULAIR (MONTELUKAST) 12/07/2017 16 - Unknown Comments: Possible rash SODIUM LAURYL SULFATE 09/30/2010 2 - Rash Comments: Skin irritation to scalp TREES 05/11/2012 14 - Other: See Comments ZOFRAN (ONDANSETRON HCL (PF)) 03/02/2011 14 - Other: See Comments Comments: Zofran causes cramping and constipation Date Reviewed: 03/24/2018 Reviewed by: Yohana Shaw RN - Fully Assessed Reason for Visit: Consult [173] Cmt: Consult GERD/ Constipation Primary Visit Diagnosis:Constipation, unspecified constipation type [K59.00] Other Visit Diagnosis:Epigastric pain [R10.13] Order(s):lactobacillus rhamnosus (CULTURELLE) 10 billion cell capsuleTake 1 capsule by mouth once daily.Disp: 30 capsuleRfl: 0 methylcellulose, with sugar, (CITRUCEL, SUCROSE,) oral powderMix 1 heaping teaspoon into 8 ox of water and take by mouth once a dayDisp: 454 gRfl: 0 Prescriptions as of 03/27/2018 Sig: ALBUTEROL SULFATE HFA 90 MCG/* Inhale 2 Puffs as instructed * VITAMIN D3 2,000 UNIT CAPSULE BECLOMETHASONE DIPROPIONATE 8* Inhale 2 Puffs as instructed * FAMOTIDINE 20 MG TABLET Take 1 tablet by mouth at bed* FLUTICASONE 50 MCG/ACTUATION * Use 2 Sprays in each nostril * MULTIVITAMIN CAPSULE Take 1 capsule by mouth once * LACTOBACILLUS RHAMNOSUS GG 10* Take 1 capsule by mouth once * METHYLCELLULOSE (WITH SUGAR) * Mix 1 heaping teaspoon into 8* NAPROXEN 500 MG TABLET Take 1 tablet by mouth twice * FOLIC ACID 400 MCG TABLET Take 400 mcg by mouth once da* BENZONATATE 100 MG CAPSULE Take 1 capsule by mouth every* Patient not taking: Reported on 03/16/2018 VITAMIN D-3 ORAL Take by mouth. NAPROXEN 500 MG TABLET Take 1 tablet by mouth twice * Patient taking differently: Take 250 mg by mouth twice da* KETOTIFEN 0.025 % (0.035 %) E* Use 1 Drop in both eyes twice* ESCITALOPRAM 20 MG TABLET Take 1 tablet by mouth once d* Patient not taking: Reported on 03/16/2018 LORATADINE 10 MG TABLET Take 1 tablet by mouth once d* HYDROCORTISONE ACETATE 1 % TO* Apply 1 application to affect* Patient taking differently: Apply 1 application to affect* Medication notes this encounter DOCUSATE SODIUM 100 MG CAPSULE >> Dariusz Cali LPN 03/27/2018 1:07 PM >> DARIUSZ CALI LPN TueMar 27, 2018 1:07 PM Please D/c NAPROXEN 500 MG TABLET >> Dariusz Cali LPN 03/27/2018 1:08 PM >> DARIUSZ CALI LPN TueMar 27, 2018 1:08 PM Plesae d/c FOLIC ACID 400 MCG TABLET >> Dariusz Cali LPN 03/27/2018 1:07 PM >> DARIUSZ CALI LPN TueMar 27, 2018 1:07 PM Please D/c VITAMIN D-3 ORAL >> Dariusz Cali LPN 03/27/2018 1:06 PM >> DARIUSZ CALI LPN TueMar 27, 2018 1:06 PM Please D/c PROBIOTIC BLEND ORAL >> Daruisz Cali LPN 03/27/2018 1:08 PM >> DARIUSZ CALI LPN TueMar 27, 2018 1:08 PM Please D/c Problem List As Of Date 03/27/2018 Noted Resolved Frequency of urination [R35.0] INVALID FOR*10/20/2011 Pelvic pain in female [R10.2] INVALID FOR*10/20/2011 Microscopic hematuria [R31.29] INVALID FOR*09/15/2016 Other hammer toe (acquired) [M20.40] INVALID FOR*10/20/2011 Hallux valgus (acquired) [M20.10] INVALID FOR* Internal hemorrhoids without mention of complic*INVALID FOR*10/20/2011 Diarrhea [R19.7] INVALID FOR*10/20/2011 Abdominal pain, generalized [R10.84] INVALID FOR*10/20/2011 Low back pain [M54.5] INVALID FOR* Closed fracture of metatarsal bone(s) [S92.309A]INVALID FOR*09/15/2016 Tendonitis [M77.9] INVALID FOR*09/15/2016 Acne Vulgaris: Grade III Inflammatory and Comed*INVALID FOR*09/15/2016 Other seborrheic dermatitis [L21.8] INVALID FOR*09/15/2016 History of cold-induced urticaria [Z87.2] INVALID FOR* Seborrhea [L21.9] INVALID FOR*09/15/2016 Eczematous dermatitis [L30.9] INVALID FOR*09/15/2016 Xerosis cutis [L85.3] INVALID FOR*09/15/2016 Backache, unspecified [M54.9] INVALID FOR*09/15/2016 Asthma [J45.909] INVALID FOR* Attention-deficit hyperactivity disorder, predo*INVALID FOR* Pain disorder with psychological component [F45*INVALID FOR* Adjustment disorder with mixed anxiety and depr*INVALID FOR* Chronic midline low back pain without sciatica *INVALID FOR* Cervicalgia [M54.2] INVALID FOR* Degeneration of cervical intervertebral disc [M*INVALID FOR* Allergic rhinitis [J30.9] INVALID FOR* Other instructions from your clinician: -Trial of probiotic and daily fiber supplement -Drink plenty of fluids -Refer to handout for dietary recommendations -If symptoms persist despite these measures, follow up to discuss possible endoscopy Visit Notes: >> Dariusz Cali LPN Mon Mar 27, 2018 1:12 PM Status: Signed REVIEW OF SYSTEMS: General: The patient NOTES fatigue, denies weight loss, NOTES weight gain, denies feeling hot, and denies feelings of cold. Eyes: The patient denies glaucoma, denies eye injury/surgery, wears glasses or contacts. Ear/Nose/Throat: The patient NOTES allergies, denies hayfever, denies ear infections, and denies bloody noses. Cardiovascular: The patient denies chest pain, denies heart disease, denies high blood pressure,denies cardiac stent, denies prior heart attack, denies irregular heart beat, denies high cholesterol, denies poor circulation, denies heart failure, other cardiac issues, NOTES claudication, denies cold feet, denies peripheral arterial stent. Respiratory: The patient denies tuberculosis, denies pneumonia, NOTES frequent cough, denies pulmonary embolism, NOTES shortness of breath, and denies coughing up blood. Gastrointestinal: The patient denies difficulty swallowing, NOTES acid reflux, denies ulcers, denies vomiting, denies jaundice/hepatitis, denies gallbladder problems, denies black or tarry stools, NOTES hemorrhoids, denies bleeding from rectum, denies diverticulitis, NOTES constipation, denies diarrhea, denies loss of stool control, and denies hernias. Kidney/Bladder: The patient denies kidney stones, denies urine infections, and denies bloody urine. Skin: The patient denies a history of skin cancer, denies bleeding/changing moles, and denies a history of skin rash. Neurologic: The patient denies a history of epilepsy/convulsions, denies headaches, denies head/spinal injuries, and denies stroke/TIA. Psychiatric: The patient denies psychiatric medications, NOTES depression, and denies voices, denies substance abuse. Endocrine: The patient denies thyroid disorders, denies diabetes, and denies hormonal problems. Hematologic: The patient denies a history of bruising, denies bleeding, and denies anemia, denies blood clots. Infections: The patient denies a history of measles and mumps, denies rheumatic fever, and NOTES sexually transmitted diseases. Musculoskeletal: The patient NOTES back pain/injury, denies back problems,NOTES sciatica, NOTES knee/foot trouble, NOTES arthritis, or denies gout. When was patient's last Mammogram screening? 01/20 Last Colonoscopy: 02/13 Dariusz Cali LPN Prescriptions ordered this encounter Disp Refills Start End LACTOBACILLUS RHAMNOSUS GG 10 BILLIO* 30 c* 0 03/27/2018 Route: ORAL Sig: Take 1 capsule by mouth once daily. METHYLCELLULOSE (WITH SUGAR) ORAL PO* 454 g 0 03/27/2018 Sig: Mix 1 heaping teaspoon into 8 ox of water and take by mouth once a day Medications Discontinued During This Encounter docusate sodium (COLACE) 100 mg caps* 30 c* 0 03/16/2018 03/27/2018 Route: ORAL Sig: Take 1 capsule by mouth twice daily as needed for Constipation. Disc: Reason for discontinue is not on file. L.ACID/L.CASEI/B.BIF/B.FLOR/FOS (PROB* 03/27/2018 Class: Historical Med Route: ORAL Sig: Take by mouth. Disc: Reason for discontinue is not on file. Encounter Status:Closed by MAUREEN ZELAYA PA-C on 03/29/18 EMERGENCY DEPARTMENT Observed: 03/25/2018 Status: F Source: [place] SUMMARY 12:06 AM [facility] [place] REPOSITORY [facility] Medical Records Department [address] [place] [address] Emergency Department Summary 03/24/18 1520 MR#: [id number] Acct: [id number] Name: ANGELICA ANDUJAR Rep #: [id number] : 1980 37 From: Main Bledsoe MD PCP: Mallorie Juares Status: DEP ER - ER Visit Summary Date of Service: 03/24/18 Chief Complaint: Constipation History of Present Illness: The patient is a 37 F past medical history of reflux. No prior abdominal surgery. States she had her last normal bowel movement was on Tuesday. She has had minimal hard stool since that time. Denies any diarrhea. No fever. Intermittent cramps. Denies dysuria. Currently is on her menstrual no fever. No vomiting. Mild nausea. No dysuria. Physical Examination: Well-appearing young female. Vital signs are stable. She is afebrile. She does not look septic or toxic. She is in no acute distress. H EENT exam is unremarkable. Moist wheeze membranes. Lungs clear to auscultation bilaterally. Heart regular rate and rhythm no murmur. Abdomen is soft. Nondistended normal bowel sounds no peritoneal signs. Really no significant tenderness. No hernias. No masses. No signs of obstruction. No right lower quadrant tenderness. Moving all 4 extremities. Neurovascular intact. Back nontender. Neurologically she is awake and alert with no focal motor deficits. Test Results: KUB was obtained showed increased stool consistent with constipation. No obstruction. No free air. Emergency Department Course and Treatment: Repeat exam patient is doing well at 1545 and will be discharged to home with magnesium citrate. Treatment Plan: Magnesium citrate. Fluids and fiber. Follow- up with her primary care provider at the clinic. Disposition: Discharge Impression: Acute constipation This note was generated with [employer] dictation software. It may contain incorrect words, spelling, and punctuation that were not noted in review of the chart prior to signing ED Disposition - Plan for ED Patient: Chief Complaint: Constipation Referrals: Mallorie Alexis NP-C [Primary Care Provider] - What to do if you have Problems For any increased pain, shortness of breath, bleeding, nausea or vomiting, chest pain, or any unexpected problems, contact your Primary Care Provider. Call [facility] ([phone]) or report to the closest Emergency Room. Call 911 if necessary. 03/25/18 0006 <Electronically signed by Main Bledsoe MD> Date Main Bledsoe MD Cosigner Signature (If Indicated): Date CC: Mallorie DE LA TORRE DISCHARGE INSTRUCTION Observed: 03/25/2018 Status: F Source: [place] 12:06 AM [facility] Medical Records Department [address] [place] [address] Discharge Instruction 03/24/18 1545 MR#: [id number] Acct: [id number] Name: ANGELICA ANDUJAR C Rep #: [id number] : 1980 37 From: Main Bledsoe MD PCP: Mallorie Juares Status: [facility] ER ED Disposition - Plan for ED Patient: Disposition: Home or Assisted Living Chief Complaint: Constipation Instructions: ED Constipation Referrals: Mallorie Alexis NP-C [Primary Care Provider] - 3-5 Days if not improving What to do if you have Problems For any increased pain, shortness of breath, bleeding, nausea or vomiting, chest pain, or any unexpected problems, contact your Primary Care Provider. Call [facility] ([phone]) or report to the closest Emergency Room. Call 911 if necessary. 03/25/18 0006 <Electronically signed by Main Bledsoe MD> Date Main Bledsoe MD Cosigner Signature (If Indicated): Date CC: Mallorie DE LA TORRE ABDOMEN SINGLE VIEW Observed: 03/24/2018 Status: F Source: [place] (PORTABLE) 3:18 PM [facility] REPOSITORY [facility] Imaging Services [address] [place] [address] Abdomen Single View (Portable) MR#: [id number] Acct: [id number] Name: ANGELICA ANDUJAR Rep #: [id number] : 1980 F 37 From: Khoi Almeida MD PCP: Mallorie Juares Status: DEP ER Study: Abdomen Single View (Portable) Date of Exam: 03/24/18 Exam# [id number] Ordering Dr: Main Bledsoe MD STUDY: X-RAY - ABDOMEN/PELVIS REASON FOR EXAM: Female, 37 years old. Pain and distention TECHNIQUE: AP supine and upright views of the abdomen and pelvis. COMPARISON: None. FINDINGS: Normal visualized lung bases. There is a moderate amount of colonic fecal material. There is no demonstrated free abdominal air. The visualized liver, spleen and kidneys are grossly normal in size and morphology. Normal soft tissue structures. Normal visualized osseous structures. RAD/Abdomen Single View (Portable) IMPRESSION: No acute findings, retained stool Electronically Signed: Yeny Almeida MD at 15:55 EDT , Service support , CC: Main Bledsoe MD; Mallorie DE LA TORRE Vault Mechanic: Signed CELSO Observed: 03/24/2018 Status: COMPLETED Source: [place] 11:25 AM [facility] REPOSITORY Office Visit (PODIWS) ANGELICA ANDUJAR ([id number]) 1980 F Date Time Provider Department 03/24/18 11:25 AM YOGI AMOS During your visit today, we recorded the following information about you: Yogi Amos DPM 03/24/2018 5:19 PM Signed ? Yogi Amos DPM Department of Podiatry [address] [facility] [address] Dept: [phone] Dept 03/24/2018 Follow Up Podiatric Office Visit: HPI: Angelica Andujar is a 37 year old female. Patient presents for follow up for the following issues: Plantar Fasciitis, L - Pain is about the same. She rates it at a 3-7/10 and describes it as numb and tingling. Pain worsens depending on activity. She did not try icing her foot because she states she has an intolerance to anything cold. She did not do any stretching, she states she does not remember going over any stretching at her last appointment. She is not wearing a boot because she states she can't wear one since her house has stairs and she also does not feel like her pain is bad enough to warrant use of boot. Bunion, R - Naproxen prescribed at last office visit. She states it is helping some. She feels like she needs something to help prevent rubbing when she wears shoes. Callus, bilateral medial hallux - Pt states they are back and need filed down again today. PAST MEDICAL HISTORY Diagnosis Date - 11/2009 - Anxiety - Asthma - Depression - Recurrent UTI - Seasonal allergies - STD (sexually transmitted disease) Family History Problem Relation Age of Onset - Alcohol/Drug Mother - Arthritis Mother - Asthma Mother - Cancer Mother CANCER - Hypertension Mother - Stroke Mother - Cancer Father LUNG CANCER - Emphysema Father - Asthma Brother - Breast Cancer Maternal Aunt - Hypertension Brother REVIEW OF SYSTEMS: CONSTITUTIONAL: No fevers, chills, nightsweats, unintended weight loss HEENT: Denies frequent or severe heaches, nasal congestion/sinus symptoms, problematic allergy problems. EYES: No diplopia or blurry vision. CARDIOVASCULAR: No chest pain, dyspnea, palpitations, orthopnea, PND, ankle edema. PULM: No dyspnea, unexplained cough. GI: No dysphagia/odynophagia, problematic reflux, constipation, diarrhea, changes in stool habits, hematochezia, melena. : No new urinary complaints, including dysuria, gross hematuria or pyuria. NEURO: No new balance problems, peripheral weakness/paresthesias or numbness of concern. MUSC-SKEL: Pain of left foot PSY: No concerns regarding depression, anxiety or panic. INTEGUMENTARY: Callus of b/l hallux Physical Exam: Constitutional: Pt is a well developed 37 year old female who is alert, oriented and cooperative Eyes: Following during examination. No redness or drainage. Respiratory: RR normal and nonlabored. Even breathing. No evidence of distress or shortness of breath. Psychology: Patient is engaged during conversation. Normal affect and mood. Does not appear depressed or anxious during encounter. Vascular: Dorsalis pedis and posterior tibial pulses palpable as b/l Capillary Fill time < 5 seconds to digits 1-5 b/l Skin temperature warm to warm proximal to distal b/l Hair growth present to digits Neurological: intact light touch/epicritic sensation Dermatological: Skin appears well hydrated and supple. good color, texture, turgor. Callosities present b/l hallux.Open lesions absent. Wound: Not present. Musculoskeletal/Orthopaedic: Patient has pain to palpation of left 2nd and 3rd metatarsal shaft Foot type is pronated structurally AJ ROM is full with knee extended and flexed 1st MPJ is full when loaded and no pain or crepitus are noted with ROM. MTJ, STJ are full and free of pain and crepitus. +5/5 muscle strength dorsiflexion, plantarflexion, inversion, eversion b/l Large bunion is present b/l Radiographs: 3 views of left foot reviewed. There is moderate bunion deformity of b/l feet. No acute fracture noted. ASSESSMENT: (L85.9) Hyperkeratosis (primary encounter diagnosis) (M20.11) Hallux valgus (acquired), right foot (M79.672) Pain in left foot (M76.829) Posterior tibial tendon dysfunction PLAN: 1. History and physical examination performed. 2. Patient was examined and informed of current findings 3. Discussed pain of left foot. No evidence of fracture on xray. If she has pain, I would recommend boot and rest. She declined boot 4. She does have moderate flat foot deformity. Flat foot is likely cause for hypermobile first ray which is causing bunion and possible midfoot pain. Recommend she get the inserts that were prescribed. 5. Discussed bunion. She can continue with wider shoes vs surgical options. She is not interested in surgery as she does not think she can stay off her foot post-op. 6. Callus present to b/l feet. Callus debrided with sanding disk as courtesy. She can file as needed at home. 7. f/u in 3 weeks or prn. Yogi Amos DPM Referring Provider: SELF [200] Allergies As of Date: 03/24/2018 Noted Allergy Reaction ANTI-BACTERIAL CLEANSING (BENZETH*10/26/2012 2 - Rash BEES 07/16/2010 16 - Unknown Comments: Listed on records from Samantha Hood BENZALKONIUM CHLORIDE 09/08/2012 14 - Other: See Comments Comments: Skin irritations DOXYCYCLINE 12/13/2012 8 - GI Upset Comments: stomach cramps DUST MITES 04/26/2012 16 - Unknown Comments: Dust mites and cockroaches FLAGYL (METRONIDAZOLE HCL) 06/20/2012 4 - Hives HAND LAWN CARE SPECIALIST (ETHYL ALCOHOL (SK*11/04/2009 2 - Rash Comments: PT HAS SENSITIVE SKIN. O.K. FOR MEDICAL PROFESSIONAL TO USE HAND LAWN CARE SPECIALIST AND THEN TOUCH HER, BUT SHE HERSELF DOES NOT USE IT. IODINE 02/18/2011 2 - Rash LACTOSE INTOLERANCE (LACTASE) 11/04/2009 SAUK-SUIATTLE 12/07/2017 10 - Anaphylaxis MOLD 04/26/2012 16 - Unknown MORPHINE 03/02/2011 9 - Itching PENICILLIN 06/18/2016 16 - Unknown pet dander [Other] 10/20/2011 16 - Unknown Comments: Cat, Dog, Horse PREDNISONE 08/26/2012 14 - Other: See Comments Comments: Moodiness, restlessness, states feels like crap all over. SEASONAL ALLERGIES 11/04/2009 16 - Unknown Comments: Trees, grasses, weeds, ragweed. SINGULAIR (MONTELUKAST) 12/07/2017 16 - Unknown Comments: Possible rash SODIUM LAURYL SULFATE 09/30/2010 2 - Rash Comments: Skin irritation to scalp TREES 05/11/2012 14 - Other: See Comments ZOFRAN (ONDANSETRON HCL (PF)) 03/02/2011 14 - Other: See Comments Comments: Zofran causes cramping and constipation Date Reviewed: 03/24/2018 Reviewed by: Yohana Shaw RN - Fully Assessed Reason for Visit: Recheck [92] Primary Visit Diagnosis:Hyperkeratosis [L85.9] Other Visit Diagnoses:Hallux valgus (acquired), right foot [M20.11] Pain in left foot [M79.672] Posterior tibial tendon dysfunction [M76.829] Prescriptions as of 03/24/2018 Sig: CLINDAMYCIN 2 % VAGINAL CREAM Use 1 Applicatorful vaginally* DOCUSATE SODIUM 100 MG CAPSULE Take 1 capsule by mouth twice* NAPROXEN 500 MG TABLET Take 1 tablet by mouth twice * FOLIC ACID 400 MCG TABLET Take 400 mcg by mouth once da* ALBUTEROL SULFATE HFA 90 MCG/* Inhale 2 Puffs as instructed * VITAMIN D-3 ORAL Take by mouth. VITAMIN D3 2,000 UNIT CAPSULE BECLOMETHASONE DIPROPIONATE 8* Inhale 2 Puffs as instructed * FAMOTIDINE 20 MG TABLET Take 1 tablet by mouth at bed* NAPROXEN 500 MG TABLET Take 1 tablet by mouth twice * Patient taking differently: Take 250 mg by mouth twice da* KETOTIFEN 0.025 % (0.035 %) E* Use 1 Drop in both eyes twice* FLUTICASONE 50 MCG/ACTUATION * Use 2 Sprays in each nostril * LORATADINE 10 MG TABLET Take 1 tablet by mouth once d* PROBIOTIC BLEND ORAL Take by mouth. HYDROCORTISONE ACETATE 1 % TO* Apply 1 application to affect* Patient taking differently: Apply 1 application to affect* MULTIVITAMIN CAPSULE Take 1 capsule by mouth once * BENZONATATE 100 MG CAPSULE Take 1 capsule by mouth every* Patient not taking: Reported on 03/16/2018 ESCITALOPRAM 20 MG TABLET Take 1 tablet by mouth once d* Patient not taking: Reported on 03/16/2018 Problem List As Of Date 03/24/2018 Noted Resolved Frequency of urination [R35.0] INVALID FOR*10/20/2011 Pelvic pain in female [R10.2] INVALID FOR*10/20/2011 Microscopic hematuria [R31.29] INVALID FOR*09/15/2016 Other hammer toe (acquired) [M20.40] INVALID FOR*10/20/2011 Hallux valgus (acquired) [M20.10] INVALID FOR* Internal hemorrhoids without mention of complic*INVALID FOR*10/20/2011 Diarrhea [R19.7] INVALID FOR*10/20/2011 Abdominal pain, generalized [R10.84] INVALID FOR*10/20/2011 Low back pain [M54.5] INVALID FOR* Closed fracture of metatarsal bone(s) [S92.309A]INVALID FOR*09/15/2016 Tendonitis [M77.9] INVALID FOR*09/15/2016 Acne Vulgaris: Grade III Inflammatory and Comed*INVALID FOR*09/15/2016 Other seborrheic dermatitis [L21.8] INVALID FOR*09/15/2016 History of cold-induced urticaria [Z87.2] INVALID FOR* Seborrhea [L21.9] INVALID FOR*09/15/2016 Eczematous dermatitis [L30.9] INVALID FOR*09/15/2016 Xerosis cutis [L85.3] INVALID FOR*09/15/2016 Backache, unspecified [M54.9] INVALID FOR*09/15/2016 Asthma [J45.909] INVALID FOR* Attention-deficit hyperactivity disorder, predo*INVALID FOR* Pain disorder with psychological component [F45*INVALID FOR* Adjustment disorder with mixed anxiety and depr*INVALID FOR* Chronic midline low back pain without sciatica *INVALID FOR* Cervicalgia [M54.2] INVALID FOR* Degeneration of cervical intervertebral disc [M*INVALID FOR* Allergic rhinitis [J30.9] INVALID FOR* Disposition: Return if symptoms worsen or fail to improve. Follow-up and Disposition History Recorded Encounter Status:Closed by YOGI AMOS DPM on 03/24/18 PROGRESS Observed: 03/24/2018 Status: COMPLETED Source: [place] 11:19 AM [facility] REPOSITORY HNO ID: [id number] Author: Yogi Amos Service: (none) Author Type: Physician Type: Progress Notes Filed: 03/24/2018 5:19 PM Note Text: ? Yogi Amos DPM Department of Podiatry [address] [facility] [address] Dept: [phone] Dept 03/24/2018 Follow Up Podiatric Office Visit: HPI: Angelica Andujar is a 37 year old female. Patient presents for follow up for the following issues: Plantar Fasciitis, L - Pain is about the same. She rates it at a 3-7/10 and describes it as numb and tingling. Pain worsens depending on activity. She did not try icing her foot because she states she has an intolerance to anything cold. She did not do any stretching, she states she does not remember going over any stretching at her last appointment. She is not wearing a boot because she states she can't wear one since her house has stairs and she also does not feel like her pain is bad enough to warrant use of boot. Bunion, R - Naproxen prescribed at last office visit. She states it is helping some. She feels like she needs something to help prevent rubbing when she wears shoes. Callus, bilateral medial hallux - Pt states they are back and need filed down again today. PAST MEDICAL HISTORY Diagnosis Date - 11/2009 - Anxiety - Asthma - Depression - Recurrent UTI - Seasonal allergies - STD (sexually transmitted disease) Family History Problem Relation Age of Onset - Alcohol/Drug Mother - Arthritis Mother - Asthma Mother - Cancer Mother CANCER - Hypertension Mother - Stroke Mother - Cancer Father LUNG CANCER - Emphysema Father - Asthma Brother - Breast Cancer Maternal Aunt - Hypertension Brother REVIEW OF SYSTEMS: CONSTITUTIONAL: No fevers, chills, nightsweats, unintended weight loss HEENT: Denies frequent or severe heaches, nasal congestion/sinus symptoms, problematic allergy problems. EYES: No diplopia or blurry vision. CARDIOVASCULAR: No chest pain, dyspnea, palpitations, orthopnea, PND, ankle edema. PULM: No dyspnea, unexplained cough. GI: No dysphagia/odynophagia, problematic reflux, constipation, diarrhea, changes in stool habits, hematochezia, melena. : No new urinary complaints, including dysuria, gross hematuria or pyuria. NEURO: No new balance problems, peripheral weakness/paresthesias or numbness of concern. MUSC-SKEL: Pain of left foot PSY: No concerns regarding depression, anxiety or panic. INTEGUMENTARY: Callus of b/l hallux Physical Exam: Constitutional: Pt is a well developed 37 year old female who is alert, oriented and cooperative Eyes: Following during examination. No redness or drainage. Respiratory: RR normal and nonlabored. Even breathing. No evidence of distress or shortness of breath. Psychology: Patient is engaged during conversation. Normal affect and mood. Does not appear depressed or anxious during encounter. Vascular: Dorsalis pedis and posterior tibial pulses palpable as b/l Capillary Fill time < 5 seconds to digits 1-5 b/l Skin temperature warm to warm proximal to distal b/l Hair growth present to digits Neurological: intact light touch/epicritic sensation Dermatological: Skin appears well hydrated and supple. good color, texture, turgor. Callosities present b/l hallux.Open lesions absent. Wound: Not present. Musculoskeletal/Orthopaedic: Patient has pain to palpation of left 2nd and 3rd metatarsal shaft Foot type is pronated structurally AJ ROM is full with knee extended and flexed 1st MPJ is full when loaded and no pain or crepitus are noted with ROM. MTJ, STJ are full and free of pain and crepitus. +5/5 muscle strength dorsiflexion, plantarflexion, inversion, eversion b/l Large bunion is present b/l Radiographs: 3 views of left foot reviewed. There is moderate bunion deformity of b/l feet. No acute fracture noted. ASSESSMENT: (L85.9) Hyperkeratosis (primary encounter diagnosis) (M20.11) Hallux valgus (acquired), right foot (M79.672) Pain in left foot (M76.829) Posterior tibial tendon dysfunction PLAN: 1. History and physical examination performed. 2. Patient was examined and informed of current findings 3. Discussed pain of left foot. No evidence of fracture on xray. If she has pain, I would recommend boot and rest. She declined boot 4. She does have moderate flat foot deformity. Flat foot is likely cause for hypermobile first ray which is causing bunion and possible midfoot pain. Recommend she get the inserts that were prescribed. 5. Discussed bunion. She can continue with wider shoes vs surgical options. She is not interested in surgery as she does not think she can stay off her foot post-op. 6. Callus present to b/l feet. Callus debrided with sanding disk as courtesy. She can file as needed at home. 7. f/u in 3 weeks or prn. Yogi Amos DPM XR FOOT 3V AP/LAT/OBL Observed: 03/24/2018 Status: F Source: [facility] 11:12 AM [facility] REPOSITORY * * *Final Report* * * DATE OF EXAM: Mar 24 2018 11:12AM [id number] [id number] - XR FOOT 3V AP/LAT/OBL LT / PROCEDURE REASON: Pain in left foot * * * * Physician Interpretation * * * * HISTORY: 37-YEAR-OLD FEMALE WITH Pain in left foot . left dorsal stinging between 1, 2nd distal metatarsals no injury TECHNIQUE: XR FOOT 3V AP/LAT/OBL LT Laterality: LEFT Number of different views (projections): 3 COMPARISON: 11/26/2015 RESULT: Hallux valgus and bunion deformity. Lateral subluxation sesamoids and first metatarsal. Stress related cortical thickening of the second through fourth metatarsal diaphyses medially. Mild pes cavus. Small enthesophyte on the calcaneus at the insertion of the Achilles tendon. No acute fracture. Bones and joints otherwise intact. IMPRESSION: HALLUX VALGUS WITH BUNION. MILD PES CAVUS. NO CHANGE COMPARED TO PREVIOUS EXAM. Vault Mechanic: PSCB Transcribe Date/Time: Mar 24 2018 2:14P Dictated by : YENY DE ANDA MD This examination was interpreted and the report reviewed and electronically signed by: YENY DE ANDA MD on Mar 24 2018 2:16PM EST [id number] PROGRESS Observed: 03/24/2018 Status: COMPLETED Source: [place] 11:02 AM [facility] REPOSITORY HNO ID: [id number] Author: Vonnie Patterson Rt Service: (none) Author Type: (none) Type: Progress Notes Filed: 03/24/2018 11:12 AM Note Text: Radiology Service Progress Note PATIENT NAME: Angelica Andujar DATE OF SERVICE: March 24, 2018 TIME: 11:02 AM PATIENT IDENTITY VERIFICATION COMPLETED USING TWO (2) METHODS: Patient confirmed name verbally and Date of . PATIENT GENDER DATA: Female. status: : No status: NO. PATIENT RELEVANT IMPLANT DATA REVIEWED: Not Applicable RADIOLOGY DEPARTMENT: General X-ray: Exam(s) Completed: Lower Extremity X-Ray(s): Foot, Left and Wt. Bearing: PERIPHERAL IV DATA: Not applicable SIGNED BY: Vonnie Chan March 24, 2018 11:02 AM 12 LEAD ELECTROCARDIOGRAM Observed: 03/21/2018 Status: F Source: [place] 1:38 PM [facility] REPOSITORY [facility] Cardiovascular Services [address] [place] [id number] 12 Lead EKG 03/19/18 0639 MR#: [id number] Acct: [id number] Name: ANGELICA ANDUJAR Rep #: [id number] : 1980 37 From: Vidal Lepe MD Attending Dr: Status: DEP ER Ordering Dr: Jose G Iqbal MD Date: 03/19/18 Location: ED Sex: F C Admitted: Test Reason : Blood Pressure : / mmHG Vent. Rate : 088 BPM Atrial Rate : 088 BPM P-R Int : 140 ms QRS Dur : 082 ms QT Int : 386 ms P-R-T Axes : 057 023 -06 degrees QTc Int : 467 ms Normal sinus rhythm T wave abnormality, consider inferior ischemia Abnormal ECG Confirmed by VIDAL LEPE MD ([id number]), editor & co founder МАРИНА BRAR ([id number]) on 03/21/2018 1:38:45 PM Referred By: MARELY Confirmed By:VIDAL LEPE MD 03/21/18 1338 Date Vidal Lepe MD CC: Mallorie DE LA TORRE; Jose G Iqbal MD Signed EMERGENCY DEPARTMENT Observed: 03/20/2018 Status: F Source: [place] SUMMARY 6:54 PM [facility] REPOSITORY [facility] Medical Records Department [address] [place] [address] Emergency Department Summary 03/20/181851 MR#: [id number] Acct: [id number] Name: LAKSHMI ANDUJAR Rep #: [id number] : 1980 37 From: Blue Garcia MD PCP: Mallorie Juares Status: PRE ER - ER Visit Summary Date of Service: 03/20/18 Chief Complaint: Abdominal pain History of Present Illness: The patient is a 37 F patient has abdominal pain. She has been seen here multiple times for this recently. She was seen here 2 days ago and had a workup which was negative. She states that she has tried Emetrol, Zofran and Pepcid but is not helping. She denies fevers. She has not followed up with her primary care physician about this. Physical Examination: Vital signs reviewed. HEENT exam unremarkable. Heart is regular rate and rhythm without murmurs. Lungs are clear to auscultation. Abdomen is soft with diffuse tenderness. No guarding or rebound extremities reveal no edema. Skin exam normal. Neurologic exam normal. Test Results: None performed Emergency Department Course and Treatment: Patient has diffuse abdominal pain which is nonspecific. She was wondering about getting a CAT scan to check for ulcers. I told her that the only test indicated for ulcers is an upper GI endoscopy. I will give her Bentyl here and at home. She has had a workup many times for this. I do not feel labs or CAT scan are necessary at this time. She will follow-up with her PCP Treatment Plan: [] Disposition: Discharge Impression: Chronic abdominal pain This note was generated with Bedloo dictation software. It may contain incorrect words, spelling, and punctuation that were not noted in review of the chart prior to signing ED Disposition - Plan for ED Patient: Chief Complaint: Abd Pain Referrals: Mallorie Alexis NP-C [Primary Care Provider] - What to do if you have Problems For any increased pain, shortness of breath, bleeding, nausea or vomiting, chest pain, or any unexpected problems, contact your Primary Care Provider. Call [facility] ([phone]) or report to the closest Emergency Room. Call 911 if necessary. 07/16/18 1854 <Electronically signed by Blue Garcia MD> Date Blue Garcia MD Cosigner Signature (If Indicated): Date CC: Mallorie DE LA TORRE DISCHARGE INSTRUCTION Observed: 03/20/2018 Status: F Source: [place] 6:54 PM [facility] REPOSITORY [facility] Medical Records Department [address] [place] [address] Discharge Instruction 03/20/181853 MR#: [id number] Acct: [id number] Name: LAKSHMI ANDUJAR Rep #: [id number] : 1980 37 From: Blue Garcia MD PCP: Mallorie Juares Status: PRE ER ED Disposition - Plan for ED Patient: Disposition: Home or Assisted Living Chief Complaint: Abd Pain Instructions: ED Abdominal Pain Unkn Cause Prescriptions: Dicyclomine HCl [Bentyl] 20 mg PO TIDAC #20 cap Referrals: Mallorie Alexis NP-C [Primary Care Provider] - What to do if you have Problems For any increased pain, shortness of breath, bleeding, nausea or vomiting, chest pain, or any unexpected problems, contact your Primary Care Provider. Call [facility] ([phone]) or report to the closest Emergency Room. Call 911 if necessary. 03/20/181853 <Electronically signed by Blue Garcia MD> Date Blue Garcia MD Cosigner Signature (If Indicated): Date CC: Mallorie DE LA TORRE EMERGENCY DEPARTMENT Observed: 03/19/2018 Status: F Source: [place] SUMMARY 8:05 AM [facility] REPOSITORY [facility] Medical Records Department [address] [place] [address] Emergency Department Summary 03/19/18 0701 MR#: [id number] Acct: [id number] Name: ANGELICA ANDUJAR Rep #: [id number] : 1980 37 From: Jose G Iqbal MD PCP: Mallorie Juares Status: DEP ER - ER Visit Summary Date of Service: 03/19/18 Chief Complaint: Cough and shortness of breath History of Present Illness: The patient is a 37 F who goes to the [facility]. She reports that an hour ago she was awakened by sleep from shortness of breath and a cough. She reports that was productive clear sputum without blood. Patient reports that she began clindamycin yesterday approximately 7 PM for bacterial vaginosis. She reports that she is having abdominal pain that is moderate at worst and mild currently. She has been nauseated without any vomiting. No diarrhea. Physical Examination: Vitals: Stable. Afebrile. General: Well-nourished and well-developed. Head: Normocephalic atraumatic. Neck: Supple, no lymphadenopathy. No JVD. Nontender. Cardiovascular: Regular rate and rhythm. No murmurs. Respiratory: No respiratory distress. Clear to auscultation bilaterally. Abdominal: Soft, nontender, nondistended, normal bowel sounds. No guarding, rebound, or peritoneal signs. Back: Nontender. Extremities: Nontender, no edema. Skin: Normal color, no rash. Neurologic: Alert and oriented 3. Cranial nerves II through XII are intact. Normal strength and sensation. Psych: Normal affect. Test Results: EKG is sinus at 88 with no acute changes. Chest x-ray is normal. Emergency Department Course and Treatment: Patient treated Tylenol and Zofran p.o. She is resting comfortably. Treatment Plan: Had a prolonged discussion the patient that clindamycin does have GI side effects and I suspect this is the source of her discomfort. She will be discharged with Zofran. I have given a prescription for Flagyl suppositories. Instructed to follow-up the [facility] in 5 days not improving. Disposition: To home in improved and stable condition. Impression: 1. Adverse reaction to clindamycin. 2. URI. This note was generated with Bedloo dictation software. It may contain incorrect words, spelling, and punctuation that were not noted in review of the chart prior to signing ED Disposition - Plan for ED Patient: Disposition: Home or Assisted Living Chief Complaint: Cough Instructions: ED Upper Resp Infec No Abx Tx Prescriptions: Ondansetron [Zofran Odt] 4 mg PO Q8H PRN PRN #10 tablet PRN Reason: Nausea Metronidazole 0.75% [Metrogel Vaginal] 0 applicatio VAGINAL QHS #5 tube Referrals: Mallorie Alexis, PROGRESS CLERK-C [Primary Care Provider] - 1 Week if not improving What to do if you have Problems For any increased pain, shortness of breath, bleeding, nausea or vomiting, chest pain, or any unexpected problems, contact your Primary Care Provider. Call [facility] ([phone]) or report to the closest Emergency Room. Call 911 if necessary. 03/19/18 0805 <Electronically signed by Jose G Iqbal MD> Date Jose G Iqbal MD Cosigner Signature (If Indicated): Date CC: Mallorie DE LA TORRE CHEST 1 VIEW Observed: 03/19/2018 Status: F Source: [place] (PORTABLE) 6:27 AM [facility] REPOSITORY [facility] Imaging Services [address] [address] Chest 1 View (Portable) MR#: [id number] Acct: [id number] Name: ANGELICA ANDUJAR Rep #: [id number] : 1980 F 37 From: Any Brar MD PCP: Mallorie Juares Status: DEP ER Study: Chest 1 View (Portable) Date of Exam: 03/19/18 Exam# [id number] Ordering Dr: Jose G Iqbal MD STUDY: X-RAY CHEST REASON FOR EXAM: Female, 37 years old. Shortness of breath, cough and diaphoresis. TECHNIQUE: Single AP portable view of the chest. COMPARISON: March 17, 2018. FINDINGS: There is hyperinflation of the lungs consistent with chronic obstructive lung disease (COPD). There is no demonstrated pleural abnormality. Normal size heart. Normal mediastinum and jennifer. Normal visualized pulmonary arteries. Normal visualized aortic arch and descending thoracic aorta. Normal visualized thoracic spine. Normal visualized ribs, clavicles, and shoulders. There is no demonstrated abnormality of the visualized soft tissue structures of the upper abdomen. RAD/Chest 1 View (Portable) IMPRESSION: No radiographic evidence of acute cardiopulmonary disease. Electronically Signed: Any Brar MD at 8:10 EDT , Service support , CC: Mallorie DE LA TORRE; Jose G Iqbal MD Vault Mechanic: Signed PROGRESS Observed: 03/18/2018 Status: COMPLETED Source: [place] 3:10 PM [facility] REPOSITORY HNO ID: [id number] Author: Ian Ying Service: (none) Author Type: Physician Type: Progress Notes Filed: 03/18/2018 4:16 PM Note Text: Patient presents with: Rash: rash vaginal area X this morning HPI: Evaluated for urinary frequency at the hospital yesterday. She had iodine for catheterization. Today she has itching and a couple bumps on the genital area. No treatment yet. Dx with BV here 2 days ago. She has not started clindamycin topical yet (it was not in stock). She is planning to diamond picker the Rx at another pharmacy today. She has not been getting much sleep and has had a mild to moderate headache for the last week. MEDICATIONS: clindamycin phosphate 2 % vaginal cream Use 1 Applicatorful vaginally daily at bedtime for 7 days. docusate sodium (COLACE) 100 mg capsule Take 1 capsule by mouth twice daily as needed for Constipation. naproxen (NAPROSYN) 500 mg tablet Take 1 tablet by mouth twice daily with meals. FOR PAIN. TAKE WITH FOOD. folic acid 400 mcg tablet Take 400 mcg by mouth once daily. albuterol HFA (PROAIR HFA) 90 mcg/actuation inhaler Inhale 2 Puffs as instructed every 4 hours as needed for Wheezing/Shortness of Breath. CALCIUM CARBONATE/VITAMIN D3 (VITAMIN D-3 ORAL) Take by mouth. VITAMIN D-3 2,000 unit cap beclomethasone (QVAR) 80 mcg/actuation inhaler Inhale 2 Puffs as instructed twice daily. famotidine (PEPCID) 20 mg tablet Take 1 tablet by mouth at bedtime as needed. naproxen (NAPROSYN) 500 mg tablet Take 1 tablet by mouth twice daily as needed (for pain/inflammation). Take with food. ketotifen fumarate (ZADITOR) 0.025 % (0.035 %) ophthalmic solution Use 1 Drop in both eyes twice daily. As needed. fluticasone (FLONASE) 50 mcg/actuation nasal spray Use 2 Sprays in each nostril once daily. loratadine (CLARITIN) 10 mg tablet Take 1 tablet by mouth once daily. L.ACID/L.CASEI/B.BIF/B.FLOR/FOS (PROBIOTIC BLEND ORAL) Take by mouth. Multivitamin capsule Take 1 capsule by mouth once daily. benzonatate (TESSALON PERLE) 100 mg capsule Take 1 capsule by mouth every 8 hours as needed for Cough. escitalopram oxalate (LEXAPRO) 20 mg tablet Take 1 tablet by mouth once daily. Hydrocortisone Acetate 1 % crea Apply 1 application to affected area twice daily. ALLERGIES: ALLERGIES Allergen Reactions - Anti-Bacterial Jennifer* Rash - Bees Unknown Listed on records from Samantha Hood - Benzalkonium Chlori* Other: See Comments Skin irritations - Doxycycline GI Upset stomach cramps - Dust Mites Unknown Dust mites and cockroaches - Flagyl [Metronidazo* Hives - Hand Loan Servicing Officer [Eth* Rash PT HAS SENSITIVE SKIN. O.K. FOR MEDICAL PROFESSIONAL TO USE HAND LAWN CARE SPECIALIST AND THEN TOUCH HER, BUT SHE HERSELF DOES NOT USE IT. - Iodine Rash - Lactose Intolerance* - Nisqually Anaphylaxis - Mold Unknown - Morphine Itching - Penicillin Unknown - Pet Dander [Other] Unknown Cat, Dog, Horse - Prednisone Other: See Comments Moodiness, restlessness, states feels like crap all over. - Seasonal Allergies Unknown Trees, grasses, weeds, ragweed. - Singulair [Monteluk* Unknown Possible rash - Sodium Lauryl Sulfa* Rash Skin irritation to scalp - Trees Other: See Comments - Zofran [Ondansetron* Other: See Comments Zofran causes cramping and constipation VITALS: BP 122/80 Pulse 76 Temp 36.6 ?C (97.8 ?F) (Tympanic) Wt 88 kg (194 lb) LMP (Approximate) BMI 30.38 kg/m? PE: Pleasant, in no acute distress. : Normal external female genitalia and vulva. No erythema, pustules, vesicles, or discharge. ASSESSMENT/PLAN: 1. Vulvar burning - ICD9: 625.9, ICD10: N94.89 (primary diagnosis) 2. Bacterial vaginosis - ICD9: 616.10, 041.9, ICD10: N76.0, B96.89 No significant visible allergic reaction to iodine prep. Start clindamycin QHS. Follow up with LINUX ENGINEER if not improving. Ian Ying MD CNOV Observed: 03/18/2018 Status: COMPLETED Source: [place] 3:00 PM [facility] REPOSITORY Office Visit (WSTR) ANGELICA ANDUJAR ([id number]) 1980 F Date Time Provider Department 03/18/18 3:00 PM IAN YING During your visit today, we recorded the following information about you: Temperature Pulse Blood pressure Weight 97.8 degrees 76/minute 122/80 88 kg Ian Ying MD 03/18/2018 4:16 PM Signed Patient presents with: Rash: rash vaginal area X this morning HPI: Evaluated for urinary frequency at the hospital yesterday. She had iodine for catheterization. Today she has itching and a couple bumps on the genital area. No treatment yet. Dx with BV here 2 days ago. She has not started clindamycin topical yet (it was not in stock). She is planning to diamond picker the Rx at another pharmacy today. She has not been getting much sleep and has had a mild to moderate headache for the last week. MEDICATIONS: clindamycin phosphate 2 % vaginal cream Use 1 Applicatorful vaginally daily at bedtime for 7 days. docusate sodium (COLACE) 100 mg capsule Take 1 capsule by mouth twice daily as needed for Constipation. naproxen (NAPROSYN) 500 mg tablet Take 1 tablet by mouth twice daily with meals. FOR PAIN. TAKE WITH FOOD. folic acid 400 mcg tablet Take 400 mcg by mouth once daily. albuterol HFA (PROAIR HFA) 90 mcg/actuation inhaler Inhale 2 Puffs as instructed every 4 hours as needed for Wheezing/Shortness of Breath. CALCIUM CARBONATE/VITAMIN D3 (VITAMIN D-3 ORAL) Take by mouth. VITAMIN D-3 2,000 unit cap beclomethasone (QVAR) 80 mcg/actuation inhaler Inhale 2 Puffs as instructed twice daily. famotidine (PEPCID) 20 mg tablet Take 1 tablet by mouth at bedtime as needed. naproxen (NAPROSYN) 500 mg tablet Take 1 tablet by mouth twice daily as needed (for pain/inflammation). Take with food. ketotifen fumarate (ZADITOR) 0.025 % (0.035 %) ophthalmic solution Use 1 Drop in both eyes twice daily. As needed. fluticasone (FLONASE) 50 mcg/actuation nasal spray Use 2 Sprays in each nostril once daily. loratadine (CLARITIN) 10 mg tablet Take 1 tablet by mouth once daily. L.ACID/L.CASEI/B.BIF/B.FLOR/FOS (PROBIOTIC BLEND ORAL) Take by mouth. Multivitamin capsule Take 1 capsule by mouth once daily. benzonatate (TESSALON PERLE) 100 mg capsule Take 1 capsule by mouth every 8 hours as needed for Cough. escitalopram oxalate (LEXAPRO) 20 mg tablet Take 1 tablet by mouth once daily. Hydrocortisone Acetate 1 % crea Apply 1 application to affected area twice daily. ALLERGIES: ALLERGIES Allergen Reactions - Anti-Bacterial Jennifer* Rash - Bees Unknown Listed on records from [facility] - Benzalkonium Chlori* Other: See Comments Skin irritations - Doxycycline GI Upset stomach cramps - Dust Mites Unknown Dust mites and cockroaches - Flagyl [Metronidazo* Hives - Hand Loan Servicing Officer [Eth* Rash PT HAS SENSITIVE SKIN. O.K. FOR MEDICAL PROFESSIONAL TO USE HAND LAWN CARE SPECIALIST AND THEN TOUCH HER, BUT SHE HERSELF DOES NOT USE IT. - Iodine Rash - Lactose Intolerance* - Nisqually Anaphylaxis - Mold Unknown - Morphine Itching - Penicillin Unknown - Pet Dander [Other] Unknown Cat, Dog, Horse - Prednisone Other: See Comments Moodiness, restlessness, states feels like crap all over. - Seasonal Allergies Unknown Trees, grasses, weeds, ragweed. - Singulair [Monteluk* Unknown Possible rash - Sodium Lauryl Sulfa* Rash Skin irritation to scalp - Trees Other: See Comments - Zofran [Ondansetron* Other: See Comments Zofran causes cramping and constipation VITALS: BP 122/80 Pulse 76 Temp 36.6 ?C (97.8 ?F) (Tympanic) Wt 88 kg (194 lb) LMP (Approximate) BMI 30.38 kg/m? PE: Pleasant, in no acute distress. : Normal external female genitalia and vulva. No erythema, pustules, vesicles, or discharge. ASSESSMENT/PLAN: 1. Vulvar burning - ICD9: 625.9, ICD10: N94.89 (primary diagnosis) 2. Bacterial vaginosis - ICD9: 616.10, 041.9, ICD10: N76.0, B96.89 No significant visible allergic reaction to iodine prep. Start clindamycin QHS. Follow up with LINUX ENGINEER if not improving. MD Leah Chery Ma 03/18/2018 3:42 PM Signed I was present for the physical exam with the provider for exam. Leah Mason Ma Referring Provider: SELF [[id number]] Allergies As of Date: 03/18/2018 Noted Allergy Reaction ANTI-BACTERIAL CLEANSING (BENZETH*10/26/2012 2 - Rash BEES 07/16/2010 16 - Unknown Comments: Listed on records from Sam[facility] BENZALKONIUM CHLORIDE 09/08/2012 14 - Other: See Comments Comments: Skin irritations DOXYCYCLINE 12/13/2012 8 - GI Upset Comments: stomach cramps DUST MITES 04/26/2012 16 - Unknown Comments: Dust mites and cockroaches FLAGYL (METRONIDAZOLE HCL) 06/20/2012 4 - Hives HAND LAWN CARE SPECIALIST (ETHYL ALCOHOL (SK*11/04/2009 2 - Rash Comments: PT HAS SENSITIVE SKIN. O.K. FOR MEDICAL PROFESSIONAL TO USE HAND LAWN CARE SPECIALIST AND THEN TOUCH HER, BUT SHE HERSELF DOES NOT USE IT. IODINE 02/18/2011 2 - Rash LACTOSE INTOLERANCE (LACTASE) 11/04/2009 SAUK-SUIATTLE 12/07/2017 10 - Anaphylaxis MOLD 04/26/2012 16 - Unknown MORPHINE 03/02/2011 9 - Itching PENICILLIN 06/18/2016 16 - Unknown pet dander [Other] 10/20/2011 16 - Unknown Comments: Cat, Dog, Horse PREDNISONE 08/26/2012 14 - Other: See Comments Comments: Moodiness, restlessness, states feels like crap all over. SEASONAL ALLERGIES 11/04/2009 16 - Unknown Comments: Trees, grasses, weeds, ragweed. SINGULAIR (MONTELUKAST) 12/07/2017 16 - Unknown Comments: Possible rash SODIUM LAURYL SULFATE 09/30/2010 2 - Rash Comments: Skin irritation to scalp TREES 05/11/2012 14 - Other: See Comments ZOFRAN (ONDANSETRON HCL (PF)) 03/02/2011 14 - Other: See Comments Comments: Zofran causes cramping and constipation Date Reviewed: 03/18/2018 Reviewed by: Leah Mason Ma - Fully Assessed Reason for Visit: Rash [1087] Cmt: rash vaginal area X this morning Primary Visit Diagnosis:Vulvar burning [N94.89] Other Visit Diagnosis:Bacterial vaginosis [N76.0, B96.89] Prescriptions as of 03/18/2018 Sig: CLINDAMYCIN 2 % VAGINAL CREAM Use 1 Applicatorful vaginally* DOCUSATE SODIUM 100 MG CAPSULE Take 1 capsule by mouth twice* NAPROXEN 500 MG TABLET Take 1 tablet by mouth twice * FOLIC ACID 400 MCG TABLET Take 400 mcg by mouth once da* ALBUTEROL SULFATE HFA 90 MCG/* Inhale 2 Puffs as instructed * VITAMIN D-3 ORAL Take by mouth. VITAMIN D3 2,000 UNIT CAPSULE BECLOMETHASONE DIPROPIONATE 8* Inhale 2 Puffs as instructed * FAMOTIDINE 20 MG TABLET Take 1 tablet by mouth at bed* NAPROXEN 500 MG TABLET Take 1 tablet by mouth twice * Patient taking differently: Take 250 mg by mouth twice da* KETOTIFEN 0.025 % (0.035 %) E* Use 1 Drop in both eyes twice* FLUTICASONE 50 MCG/ACTUATION * Use 2 Sprays in each nostril * LORATADINE 10 MG TABLET Take 1 tablet by mouth once d* PROBIOTIC BLEND ORAL Take by mouth. MULTIVITAMIN CAPSULE Take 1 capsule by mouth once * BENZONATATE 100 MG CAPSULE Take 1 capsule by mouth every* Patient not taking: Reported on 03/16/2018 ESCITALOPRAM 20 MG TABLET Take 1 tablet by mouth once d* Patient not taking: Reported on 03/16/2018 HYDROCORTISONE ACETATE 1 % TO* Apply 1 application to affect* Patient taking differently: Apply 1 application to affect* Problem List As Of Date 03/18/2018 Noted Resolved Frequency of urination [R35.0] INVALID FOR*10/20/2011 Pelvic pain in female [R10.2] INVALID FOR*10/20/2011 Microscopic hematuria [R31.29] INVALID FOR*09/15/2016 Other hammer toe (acquired) [M20.40] INVALID FOR*10/20/2011 Hallux valgus (acquired) [M20.10] INVALID FOR* Internal hemorrhoids without mention of complic*INVALID FOR*10/20/2011 Diarrhea [R19.7] INVALID FOR*10/20/2011 Abdominal pain, generalized [R10.84] INVALID FOR*10/20/2011 Low back pain [M54.5] INVALID FOR* Closed fracture of metatarsal bone(s) [S92.309A]INVALID FOR*09/15/2016 Tendonitis [M77.9] INVALID FOR*09/15/2016 Acne Vulgaris: Grade III Inflammatory and Comed*INVALID FOR*09/15/2016 Other seborrheic dermatitis [L21.8] INVALID FOR*09/15/2016 History of cold-induced urticaria [Z87.2] INVALID FOR* Seborrhea [L21.9] INVALID FOR*09/15/2016 Eczematous dermatitis [L30.9] INVALID FOR*09/15/2016 Xerosis cutis [L85.3] INVALID FOR*09/15/2016 Backache, unspecified [M54.9] INVALID FOR*09/15/2016 Asthma [J45.909] INVALID FOR* Attention-deficit hyperactivity disorder, predo*INVALID FOR* 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 Leah Mason Ma Encounter Status:Closed by IAN YING MD on 03/18/18 EMERGENCY DEPARTMENT Observed: 03/17/2018 Status: F Source: [place] SUMMARY 12:16 PM [facility] REPOSITORY [facility] Medical Records Department [address] [place] [address] Emergency Department Summary 03/17/18 0923 MR#: [id number] Acct: [id number] Name: ANGELICA ANDUJAR Rep #: [id number] : 1980 37 From: Ho Kathleen DO PCP: Mallorie Juares Status: REG ER - ER Visit Summary Date of Service: 03/17/18 Chief Complaint: Lightheadedness, shortness of breath, dysuria History of Present Illness: The patient is a 37 F who presents with the above chief complaints that have been getting worse over the past 4 days. Patient states she feels like she is lightheaded when she stands up. Patient states he feels like she might pass out. Patient denies any spinning sensation. Patient denies any headaches. Patient denies any nausea or vomiting. Patient also admits to some shortness of breath. Patient admits to a cough with some clear sputum. Patient admits to subjective chills but denies any fevers. Patient denies any chest pain. Patient also admits to some dysuria. Patient states she went to an urgent care and had a urinalysis done which was normal. Patient admits to some bilateral flank pain. Physical Examination: Vital signs are stable. Patient is afebrile. Patient is in no acute distress. Oral mucosa is pink and moist. Neck is supple. Trachea is midline. There is no JVD noted. Heart was regular rate and rhythm. Lungs are clear and equal bilaterally. Abdomen is soft. There is some mild flank tenderness bilaterally. There is no CVA tenderness. There is no rebound or guarding noted. Cranial nerves II through XII are intact. There are no focal motor or sensory deficits noted. The remaining physical exam is within normal limits. Test Results: CBC, basic metabolic profile, urinalysis, and chest x-ray were obtained were all within normal limits. Emergency Department Course and Treatment: Orthostatic vital signs were within normal limits. Patient was instructed to follow-up with her [facility] physician in 5-7 days. 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 Patient understood and was agreeable with the plan. All questions were answered. Disposition: Discharged home Impression: General weakness This note was generated with Bed[employer] dictation software. It may contain incorrect words, spelling, and punctuation that were not noted in review of the chart prior to signing ED Disposition - Plan for ED Patient: Disposition: Home or Assisted Living Chief Complaint: General Illness Diagnosis: General weakness Instructions: ED Weakness [facility] Referrals: Mallorie Alexis, PROGRESS CLERK-C [Primary Care Provider] - What to do if you have Problems For any increased pain, shortness of breath, bleeding, nausea or vomiting, chest pain, or any unexpected problems, contact your Primary Care Provider. Call [facility] ([phone]) or report to the closest Emergency Room. Call 911 if necessary. 03/17/18 1216 <Electronically signed by Ho Kathleen DO> Date Ho Kathleen DO Cosigner Signature (If Indicated): Date CC: Mallorie DE LA TORRE URINALYSIS, COMPLETE Collected: 03/17/2018 Status: F Source: [place] 10:40 AM [facility] REPOSITORY Order Comment: How was Urine Obtained? CLEAN CATCH TYPE CODE TESTS RESULT OUT OF RANGE REFERENCE UNITS LAB L400.3000 Yellow COLOR Normal Yellow LAB L400.3050 Clear Normal CLARITY Sl. Cloudy LAB L400.3200 Normal mg/dl Normal GLUCOSE, UR Normal LAB L400.3300 Negative mg/dL Normal BILIRUBIN URINE Negative LAB L400.3400 Negative mg/dl High 5 KETONE UR LAB L400.3465 1.002-1.030 Normal SP.GR. DIPSTX 1.025 LAB L400.3550 5.0 - 8.0 pH UR Normal 5.0 LAB L400.3600 Negative mg/dl PROT Normal DIPSTX Negative LAB L400.3700 Normal mg/dl Normal UROBILI Normal LAB L400.3750 Negative Normal NITRITE UR Negative LAB L400.3780 Negative /ul Normal OCCULT BLOOD-UR Negative LAB L400.3800 Negative /ul LEUK Normal ESTERASE Negative LAB L400.4050 0-5 /hpf WBC 0 Normal SEEN LAB L400.4100 0-5 /hpf 0 Normal RBC-UA SEEN LAB L400.4150 5-10 /hpf SQUAM Normal EPI 0-5 SEEN LAB L400.4300 None Seen /hpf 0 Normal BACTERIA SEEN LAB L400.4350 <or=2+ /hpf 0 Normal MUCUS, URINE SEEN Performed By: #### L400.0001 #### [facility] [address] [facility]. [place], [place], [address] ,URINE Collected: 03/17/2018 Status: F Source: [place] 10:40 AM [facility] REPOSITORY Order Comment: Has pt arrived? Y TYPE CODE TESTS RESULT OUT OF REFERENCE UNITS RANGE LAB L400.8000 Negative Normal HCGUQUAL Negative Result Comment: Very dilute urine specimens, as indicated by a low specific gravity, may not contain credit and collections representative levels of hCG. If is still suspected, a first morning urine specimen should be collected 48 hours later and tested. Performed By: #### L400.7600 #### [facility] [address] [place], [address] CBC W/DIFF, AUTOMATED Collected: 03/17/2018 Status: F Source: [place] 9:40 AM [facility] REPOSITORY TYPE CODE TESTS RESULT OUT OF RANGE REFERENCE UNITS LAB L100.1000 4.4-11.0 K/mm3 Normal WBC 9.2 LAB L100.1200 4.2-5.4 M/mm3 Normal RBC 4.99 LAB L100.1300 12.0-15.0 g/dl Normal HGB 14.3 LAB L100.1400 37-47 % Normal HCT 42.7 LAB L100.1500 81-99 fL Normal MCV 85.6 LAB L100.1600 27.0-32.0 pg Normal MCH 28.7 LAB L100.1700 32-36 g/gl Normal MCHC 33.5 LAB L100.1810 11.6-14.6 % Normal RDW CV 12.9 LAB L100.1820 35.1-43.9 fl Normal RDW SD 39.7 LAB L100.1900 150-450 K/mm3 Normal PLT 214 LAB L100.2000 6.2-12.0 fl Normal MPV 11.2 LAB L100.2100 47-70 % High NEUT% 75.9 LAB L100.2200 19-41 % Low LY% 15.6 LAB L100.2300 0-10 % Normal MONO% 6.1 LAB L100.2400 0-5 % Normal EO% 2.1 LAB L100.2500 0-1 % Normal BASO% 0.2 LAB L100.2550 0.0-0.9 % Normal IM GRAN % 0.100 Result Comment: IG% - Immature Granulocytes (promyelocytes, myelocytes and metamyelocytes) > 1% indicates that a LEFT SHIFT is Present. LAB L100.2620 2.0-7.7 X10 3/uL Normal Absolute Neut 7.0 LAB L100.2720 0.83-4.51 X10 3/ul Normal Absolute Lymph 1.43 Performed By: #### L100.0100 #### [facility] [address] [place], [place], [address] BASIC METABOLIC Collected: 03/17/2018 Status: F Source: [place] PROFILE (BMP) 9:40 AM [facility] REPOSITORY TYPE CODE TESTS RESULT OUT OF RANGE REFERENCE UNITS LAB L501.0100 74-106 mg/dL Normal GLU 89 Result Comment: Please note revised GLUCOSE reference range effective 2017. LAB L501.1000 7-18 mg/dL Normal BUN 13 LAB L501.1100 0.55-1.02 mg/dL Normal CREAT,SERUM 0.90 Result Comment: The validity of the calculated GFR AND GFRAA in patients over 70 years has not been determined. Clinical correlation is essential. LAB L501.1110 >60 mL/min Normal EST GFR 74 Result Comment: Non- GFR Calc LAB L501.1115 >60 mL/min Normal EST GFR - AA 90 Result Comment: GFR Calc LAB L501.1255 ml/min Normal Estimated CRCL 78.56 LAB L501.1300 10-20 RATIO Normal BUN/CRE 14.5 LAB L501.2200 8.5-10 mg/dL Normal .1 CA 9.0 LAB L501.5300 136-14 mmol/L Normal 5 NA 141 LAB L501.5600 3.5-5. mmol/L Normal 1 K 3.6 LAB L501.5900 98-107 mmol/L Normal CL 107 LAB L501.6100 21.0-3 mmol/L Normal 2.0 CO2 26.0 LAB L501.6200 5-15 Normal GAP 8 Performed By: #### L500.2500 #### [facility] [address] [place], [address] CHEST PA AND LATERAL Observed: 03/17/2018 Status: F Source: [place] 9:24 AM [facility] REPOSITORY [facility] Imaging Services [address] [place] [address] Chest PA and Lateral MR#: [id number] Acct: [id number] Name: ANGELICA ANDUJAR Rep #: [id number] : 1980 F 37 From: Shree Das MD PCP: Mallorie Juares Status: REG ER Study: Chest PA and Lateral Date of Exam: 03/17/18 Exam# [id number] Ordering Dr: Ho Kathleen DO STUDY: X-RAY CHEST REASON FOR EXAM: Female, 37 years old. Cough and shortness of breath. Back pain. TECHNIQUE: PA and lateral views of the chest. COMPARISON: Comparison is made with prior study dated March 12, 2018. FINDINGS: The lungs are clear and expanded. There is no demonstrated pleural abnormality. Normal size heart. Normal mediastinum and jennifer. Normal visualized pulmonary arteries. Normal visualized aortic arch and descending thoracic aorta. Normal visualized thoracic spine. Normal visualized ribs, clavicles, and shoulders. There is no demonstrated abnormality of the visualized soft tissue structures of the upper abdomen. RAD/Chest PA and Lateral IMPRESSION: Normal x-ray examination of the chest. Electronically Signed: Shree Das MD at 10:20 EDT Tel [phone], Service support , CC: Ho Kathleen DO; Mallorie DE LA TORRE Vault Mechanic: Signed VAG PATHOGENS DNA Collected: 03/16/2018 Status: F Source: [place] 11:04 PM [facility] REPOSITORY TYPE CODE TESTS RESULT OUT OF RANGE REFERENCE UNITS LAB TVDNA Negative for Trichomonas Negative vaginalis by DNA for Trichomonas Probe Trich vag vaginalis by DNA DNA Probe Probe LAB GVDNA Negative for Gardnerella Positive Abnormal vaginalis by DNA for Gardnerella Alert Probe Gigi vag vaginalis by DNA DNA Probe probe. Result Comment: This is suggestive, but not diagnostic of bacterial vaginosis, results should be interpreted in conjunction with other data such as pH, amine odor, clue cells and vaginal discharge characteristics. LAB CANDNA Negative for Misty species Negative by DNA Probe Misty sp DNA for Misty Probe species by DNA Probe Performed By: #### VAGDNA #### [facility] [address] [place], [place] [address] Observed: 03/16/2018 Status: F Source: [place] URINE CULTURE 9:07 PM [facility] REPOSITORY Sp. Request/Comment: - Specimen received in preservative Culture Result - No growth (<1,000 CFU/ml) Performed By: #### URCUL #### [facility] [address] [place] [address] PROGRESS Observed: 03/16/2018 Status: COMPLETED Source: [place] 1:51 PM [facility] REPOSITORY HNO ID: [id number] Author: Dorys Huffman) Lakshmi Service: (none) Author Type: Nurse Practitioner Type: Progress Notes Filed: 03/16/2018 2:38 PM Note Text: Subjective HPI Angelica Andujar is a 37 year old female who presents with urinary frequency, lower back pain, and vaginal cramping for the past 2 days. She states she feels the need to urinate 10-15 times a day. She has not taken anything at home for her symptoms. She admits to constipation. She has not taken anything for the constipation. She has been drinking increased water. She had a vaginal exam on 02/10/2018. She also had a pelvic ultrasound on 02/15/2018. Results of those tests are reviewed at today's visit. Despite the normal results, she is requesting an internal exam today because she did not have these symptoms when she had her last vaginal exam. She saw her PCP yesterday at the [facility] for wheezing. She did not mention the vaginal cramping, or constipation at that appointment. Review of Systems Constitutional: Negative. Negative for fever. Respiratory: Negative. Cardiovascular: Negative. Gastrointestinal: Positive for abdominal pain. Negative for constipation, diarrhea, nausea and vomiting. Genitourinary: Positive for frequency. Negative for dysuria and hematuria. Musculoskeletal: Positive for back pain (chronic per patient). BP 110/70 Pulse 76 Temp 36.3 ?C (97.3 ?F) (Tympanic) Resp 16 Wt 87.5 kg (193 lb) BMI 30.23 kg/m? PAST MEDICAL HISTORY Diagnosis Date - 11/2009 - Anxiety - Asthma - Depression - Recurrent UTI - Seasonal allergies - STD (sexually transmitted disease) PAST SURGICAL HISTORY Procedure Laterality Date - COLONOSCOPY W/BX 03/02/11 - EGD W/O OR W/BRUSH/WASH 11/14/2012 EGD - MED INC ALL EX DRUG 11/2009 - PAST SURGICAL HISTORY OF WISDOM TEETH ALLERGIES Anti-Bacterial Cleansing [Benzethonium Chloride]; Bees; Benzalkonium Chloride; Doxycycline; Dust Mites; Flagyl [Metronidazole Hcl]; Hand Loan Servicing Officer [Ethyl Alcohol (Skin Cleanser)]; Iodine; Lactose Intolerance [Lactase]; Nisqually; Mold; Morphine; Penicillin; Pet Dander [Other]; Prednisone; Seasonal Allergies; Singulair [Montelukast]; Sodium Lauryl Sulfate; Trees; Zofran [Ondansetron Hcl (Pf)] MEDICATIONS naproxen (NAPROSYN) 500 mg tablet Take 1 tablet by mouth twice daily with meals. FOR PAIN. TAKE WITH FOOD. folic acid 400 mcg tablet Take 400 mcg by mouth once daily. albuterol HFA (PROAIR HFA) 90 mcg/actuation inhaler Inhale 2 Puffs as instructed every 4 hours as needed for Wheezing/Shortness of Breath. CALCIUM CARBONATE/VITAMIN D3 (VITAMIN D-3 ORAL) Take by mouth. beclomethasone (QVAR) 80 mcg/actuation inhaler Inhale 2 Puffs as instructed twice daily. famotidine (PEPCID) 20 mg tablet Take 1 tablet by mouth at bedtime as needed. naproxen (NAPROSYN) 500 mg tablet Take 1 tablet by mouth twice daily as needed (for pain/inflammation). Take with food. ketotifen fumarate (ZADITOR) 0.025 % (0.035 %) ophthalmic solution Use 1 Drop in both eyes twice daily. As needed. fluticasone (FLONASE) 50 mcg/actuation nasal spray Use 2 Sprays in each nostril once daily. loratadine (CLARITIN) 10 mg tablet Take 1 tablet by mouth once daily. Hydrocortisone Acetate 1 % crea Apply 1 application to affected area twice daily. Multivitamin capsule Take 1 capsule by mouth once daily. docusate sodium (COLACE) 100 mg capsule Take 1 capsule by mouth twice daily as needed for Constipation. benzonatate (TESSALON PERLE) 100 mg capsule Take 1 capsule by mouth every 8 hours as needed for Cough. VITAMIN D-3 2,000 unit cap escitalopram oxalate (LEXAPRO) 20 mg tablet Take 1 tablet by mouth once daily. L.ACID/L.CASEI/B.BIF/B.FLOR/FOS (PROBIOTIC BLEND ORAL) Take by mouth. FAMILY HISTORY Problem Relation Age of Onset - Alcohol/Drug Mother - Arthritis Mother - Asthma Mother - Cancer Mother CANCER - Hypertension Mother - Stroke Mother - Cancer Father LUNG CANCER - Emphysema Father - Asthma Brother - Breast Cancer Maternal Aunt - Hypertension Brother Social History Substance Use Topics - Smoking status: Former Smoker Years: 3.00 Types: Cigarettes Quit date: 03/03/2018 - Smokeless tobacco: Never Used Comment: 2 weeks no cigarettes - Alcohol use Yes Comment: Seldom Objective Physical Exam Constitutional: She is well-developed, well-nourished, and in no distress. Cardiovascular: Normal rate. Pulmonary/Chest: Effort normal. Abdominal: Soft. There is tenderness in the suprapubic area. Genitourinary: Vulva normal. Vulva exhibits no erythema, no exudate, no lesion, no rash and no tenderness. Vagina exhibits normal mucosa, no exudate and no lesion. No vaginal discharge found. Neurological: She is alert. Skin: Skin is warm and dry. Nursing note and vitals reviewed. ASSESSMENT/PLAN: 1. Urinary frequency - ICD9: 788.41, ICD10: R35.0 (primary diagnosis) acute - UA positive for trace ketones - Patient education for prevention given - UA DIP B/O - URINE CULTURE - GC/CHLAMYDIA DNA DET - VAGINAL PATHOGENS DNA PROBES 2. Vaginal cramping - ICD9: 625.8, ICD10: N94.9 - GC/CHLAMYDIA DNA DET - VAGINAL PATHOGENS DNA PROBES - vaginal exam done with a audiometric technician present, Zenobia Reeves. Patient tolerated exam well. Patient states that my facial expression makes her think that you are drunk or buzzed. I advised patient that this is an inappropriate comment to make, and if she continues to make such accusations, I will refuse to see her in the future. She did offer an apology and states I was just trying to have a sense of humor. The MA who roomed the patient, Zenobia Reeves, states that the patient made the same accusation about her (drunk or buzzed) during the rooming intake. 3. Acute constipation - ICD9: 564.00, ICD10: K59.00 - DOCUSATE SODIUM 100 MG CAPSULE Reviewed plan of care with patient which includes colace for constipation, STD swabs sent to lab, urine culture pending. She will be notified of any positive results. At end of visit, patient complained of chronic headache and chronic back pain for which she is starting PT for next week. She is advised to make appointment with PCP for management of these issues since they are ongoing. Express care is for management of acute illnesses. During this patient visit I have spent approximately 25 minutes in counseling regarding treatment options, medications and test results and coordinating care. - Follow-up with your PCP in 3-5 days if symptoms have not improved or sooner if symptoms worsen - Discussed red flags and need for immediate medical evaluation if any occur. - Discussed supportive care treatment with fluids, rest and analgesia. - Discussed expected course of illness Dorys Short APRN.CNP CNOV Observed: 03/16/2018 Status: COMPLETED Source: [place] 1:30 PM [facility] REPOSITORY Office Visit ([facility]) ANGELICA ANDUJAR ([id number]) 1980 F Date Time Provider Department 03/16/18 1:30 PM DORYS SHORT (JOSE ROBERTO) WSTR During your visit today, we recorded the following information about you: Temperature Pulse Respiration Blood pressure 97.3 degrees 76/minute 16/minute 110/70 Weight 87.5 kg Dorys Short APRN.CNP 03/16/2018 2:38 PM Addendum Subjective HPI Angelica Andujar is a 37 year old female who presents with urinary frequency, lower back pain, and vaginal cramping for the past 2 days. She states she feels the need to urinate 10-15 times a day. She has not taken anything at home for her symptoms. She admits to constipation. She has not taken anything for the constipation. She has been drinking increased water. She had a vaginal exam on 02/10/2018. She also had a pelvic ultrasound on 02/15/2018. Results of those tests are reviewed at today's visit. Despite the normal results, she is requesting an internal exam today because she did not have these symptoms when she had her last vaginal exam. She saw her PCP yesterday at the [facility] for wheezing. She did not mention the vaginal cramping, or constipation at that appointment. Review of Systems Constitutional: Negative. Negative for fever. Respiratory: Negative. Cardiovascular: Negative. Gastrointestinal: Positive for abdominal pain. Negative for constipation, diarrhea, nausea and vomiting. Genitourinary: Positive for frequency. Negative for dysuria and hematuria. Musculoskeletal: Positive for back pain (chronic per patient). BP 110/70 Pulse 76 Temp 36.3 ?C (97.3 ?F) (Tympanic) Resp 16 Wt 87.5 kg (193 lb) BMI 30.23 kg/m? PAST MEDICAL HISTORY Diagnosis Date - 11/2009 - Anxiety - Asthma - Depression - Recurrent UTI - Seasonal allergies - STD (sexually transmitted disease) PAST SURGICAL HISTORY Procedure Laterality Date - COLONOSCOPY W/BX 03/02/11 - EGD W/O OR W/BRUSH/WASH 11/14/2012 EGD - MED INC ALL EX DRUG 11/2009 - PAST SURGICAL HISTORY OF WISDOM TEETH ALLERGIES Anti-Bacterial Cleansing [Benzethonium Chloride]; Bees; Benzalkonium Chloride; Doxycycline; Dust Mites; Flagyl [Metronidazole Hcl]; Hand Loan Servicing Officer [Ethyl Alcohol (Skin Cleanser)]; Iodine; Lactose Intolerance [Lactase]; Nisqually; Mold; Morphine; Penicillin; Pet Dander [Other]; Prednisone; Seasonal Allergies; Singulair [Montelukast]; Sodium Lauryl Sulfate; Trees; Zofran [Ondansetron Hcl (Pf)] MEDICATIONS naproxen (NAPROSYN) 500 mg tablet Take 1 tablet by mouth twice daily with meals. FOR PAIN. TAKE WITH FOOD. folic acid 400 mcg tablet Take 400 mcg by mouth once daily. albuterol HFA (PROAIR HFA) 90 mcg/actuation inhaler Inhale 2 Puffs as instructed every 4 hours as needed for Wheezing/Shortness of Breath. CALCIUM CARBONATE/VITAMIN D3 (VITAMIN D-3 ORAL) Take by mouth. beclomethasone (QVAR) 80 mcg/actuation inhaler Inhale 2 Puffs as instructed twice daily. famotidine (PEPCID) 20 mg tablet Take 1 tablet by mouth at bedtime as needed. naproxen (NAPROSYN) 500 mg tablet Take 1 tablet by mouth twice daily as needed (for pain/inflammation). Take with food. ketotifen fumarate (ZADITOR) 0.025 % (0.035 %) ophthalmic solution Use 1 Drop in both eyes twice daily. As needed. fluticasone (FLONASE) 50 mcg/actuation nasal spray Use 2 Sprays in each nostril once daily. loratadine (CLARITIN) 10 mg tablet Take 1 tablet by mouth once daily. Hydrocortisone Acetate 1 % crea Apply 1 application to affected area twice daily. Multivitamin capsule Take 1 capsule by mouth once daily. docusate sodium (COLACE) 100 mg capsule Take 1 capsule by mouth twice daily as needed for Constipation. benzonatate (TESSALON PERLE) 100 mg capsule Take 1 capsule by mouth every 8 hours as needed for Cough. VITAMIN D-3 2,000 unit cap escitalopram oxalate (LEXAPRO) 20 mg tablet Take 1 tablet by mouth once daily. L.ACID/L.CASEI/B.BIF/B.FLOR/FOS (PROBIOTIC BLEND ORAL) Take by mouth. FAMILY HISTORY Problem Relation Age of Onset - Alcohol/Drug Mother - Arthritis Mother - Asthma Mother - Cancer Mother CANCER - Hypertension Mother - Stroke Mother - Cancer Father LUNG CANCER - Emphysema Father - Asthma Brother - Breast Cancer Maternal Aunt - Hypertension Brother Social History Substance Use Topics - Smoking status: Former Smoker Years: 3.00 Types: Cigarettes Quit date: 03/03/2018 - Smokeless tobacco: Never Used Comment: 2 weeks no cigarettes - Alcohol use Yes Comment: Seldom Objective Physical Exam Constitutional: She is well-developed, well-nourished, and in no distress. Cardiovascular: Normal rate. Pulmonary/Chest: Effort normal. Abdominal: Soft. There is tenderness in the suprapubic area. Genitourinary: Vulva normal. Vulva exhibits no erythema, no exudate, no lesion, no rash and no tenderness. Vagina exhibits normal mucosa, no exudate and no lesion. No vaginal discharge found. Neurological: She is alert. Skin: Skin is warm and dry. Nursing note and vitals reviewed. ASSESSMENT/PLAN: 1. Urinary frequency - ICD9: 788.41, ICD10: R35.0 (primary diagnosis) acute - UA positive for trace ketones - Patient education for prevention given - UA DIP B/O - URINE CULTURE - GC/CHLAMYDIA DNA DET - VAGINAL PATHOGENS DNA PROBES 2. Vaginal cramping - ICD9: 625.8, ICD10: N94.9 - GC/CHLAMYDIA DNA DET - VAGINAL PATHOGENS DNA PROBES - vaginal exam done with a audiometric technician present, Zenobia Reeves. Patient tolerated exam well. Patient states that my facial expression makes her think that you are drunk or buzzed. I advised patient that this is an inappropriate comment to make, and if she continues to make such accusations, I will refuse to see her in the future. She did offer an apology and states I was just trying to have a sense of humor. The MA who roomed the patient, Zenobia Reeves, states that the patient made the same accusation about her (drunk or buzzed) during the rooming intake. 3. Acute constipation - ICD9: 564.00, ICD10: K59.00 - DOCUSATE SODIUM 100 MG CAPSULE Reviewed plan of care with patient which includes colace for constipation, STD swabs sent to lab, urine culture pending. She will be notified of any positive results. At end of visit, patient complained of chronic headache and chronic back pain for which she is starting PT for next week. She is advised to make appointment with PCP for management of these issues since they are ongoing. Express care is for management of acute illnesses. During this patient visit I have spent approximately 25 minutes in counseling regarding treatment options, medications and test results and coordinating care. - Follow-up with your PCP in 3-5 days if symptoms have not improved or sooner if symptoms worsen - Discussed red flags and need for immediate medical evaluation if any occur. - Discussed supportive care treatment with fluids, rest and analgesia. - Discussed expected course of illness Dorys Short APRN.JOSE ROBERTO Short APRN.CNP 03/16/2018 2:15 PM Signed Take medications as prescribed. If not improving in 3-5 days, or you have worsening symptoms, see your primary care provider for recheck. We will only call if the vaginal swabs show signs of infection. Referring Provider: SELF [[id number]] Allergies As of Date: 03/16/2018 Noted Allergy Reaction ANTI-BACTERIAL CLEANSING (BENZETH*10/26/2012 2 - Rash BEES 07/16/2010 16 - Unknown Comments: Listed on records from Samantha Hood BENZALKONIUM CHLORIDE 09/08/2012 14 - Other: See Comments Comments: Skin irritations DOXYCYCLINE 12/13/2012 8 - GI Upset Comments: stomach cramps DUST MITES 04/26/2012 16 - Unknown Comments: Dust mites and cockroaches FLAGYL (METRONIDAZOLE HCL) 06/20/2012 4 - Hives HAND LAWN CARE SPECIALIST (ETHYL ALCOHOL (SK*11/04/2009 2 - Rash Comments: PT HAS SENSITIVE SKIN. O.K. FOR MEDICAL PROFESSIONAL TO USE HAND LAWN CARE SPECIALIST AND THEN TOUCH HER, BUT SHE HERSELF DOES NOT USE IT. IODINE 02/18/2011 2 - Rash LACTOSE INTOLERANCE (LACTASE) 11/04/2009 SAUK-SUIATTLE 12/07/2017 10 - Anaphylaxis MOLD 04/26/2012 16 - Unknown MORPHINE 03/02/2011 9 - Itching PENICILLIN 06/18/2016 16 - Unknown pet dander [Other] 10/20/2011 16 - Unknown Comments: Cat, Dog, Horse PREDNISONE 08/26/2012 14 - Other: See Comments Comments: Moodiness, restlessness, states feels like crap all over. SEASONAL ALLERGIES 11/04/2009 16 - Unknown Comments: Trees, grasses, weeds, ragweed. SINGULAIR (MONTELUKAST) 12/07/2017 16 - Unknown Comments: Possible rash SODIUM LAURYL SULFATE 09/30/2010 2 - Rash Comments: Skin irritation to scalp TREES 05/11/2012 14 - Other: See Comments ZOFRAN (ONDANSETRON HCL (PF)) 03/02/2011 14 - Other: See Comments Comments: Zofran causes cramping and constipation Date Reviewed: 03/16/2018 Reviewed by: Bernadine Reeves Ma - Fully Assessed Reason for Visit: Urinary Frequency [1086] Cmt: lower back pain, lower abdominal cramping x 2 days Primary Visit Diagnosis:Urinary frequency [R35.0] Other Visit Diagnoses:Vaginal cramping [N94.9] Acute constipation [K59.00] Order(s):UA DIP B/O [4997777] Order #: [id number] URINE CULTURE [SQURCUL] Order #: [id number] docusate sodium (COLACE) 100 mg capsuleTake 1 capsule by mouth twice daily as needed for Constipation.Disp: 30 capsuleRfl: 0 GC/CHLAMYDIA DNA DET [SQGCCAMP] Order #: [id number] VAGINAL PATHOGENS DNA PROBES [SQVAGDNA] Order #: [id number] Prescriptions as of 03/16/2018 Sig: NAPROXEN 500 MG TABLET Take 1 tablet by mouth twice * FOLIC ACID 400 MCG TABLET Take 400 mcg by mouth once da* ALBUTEROL SULFATE HFA 90 MCG/* Inhale 2 Puffs as instructed * VITAMIN D-3 ORAL Take by mouth. BECLOMETHASONE DIPROPIONATE 8* Inhale 2 Puffs as instructed * FAMOTIDINE 20 MG TABLET Take 1 tablet by mouth at bed* NAPROXEN 500 MG TABLET Take 1 tablet by mouth twice * Patient taking differently: Take 250 mg by mouth twice da* KETOTIFEN 0.025 % (0.035 %) E* Use 1 Drop in both eyes twice* FLUTICASONE 50 MCG/ACTUATION * Use 2 Sprays in each nostril * LORATADINE 10 MG TABLET Take 1 tablet by mouth once d* HYDROCORTISONE ACETATE 1 % TO* Apply 1 application to affect* Patient taking differently: Apply 1 application to affect* MULTIVITAMIN CAPSULE Take 1 capsule by mouth once * DOCUSATE SODIUM 100 MG CAPSULE Take 1 capsule by mouth twice* BENZONATATE 100 MG CAPSULE Take 1 capsule by mouth every* Patient not taking: Reported on 03/16/2018 VITAMIN D3 2,000 UNIT CAPSULE ESCITALOPRAM 20 MG TABLET Take 1 tablet by mouth once d* Patient not taking: Reported on 03/16/2018 PROBIOTIC BLEND ORAL Take by mouth. Medication notes this encounter FAMOTIDINE 20 MG TABLET >> Bernadine Reeves Ma 03/16/2018 1:32 PM >> BERNADINE REEVES MA [facility] Mar 16, 2018 1:32 PM LORATADINE 10 MG TABLET >> Bernadine Reeves Ma 03/16/2018 1:32 PM >> BERNADINE REEVES MA [facility] Mar 16, 2018 1:32 PM Problem List As Of Date 03/16/2018 Noted Resolved Frequency of urination [R35.0] INVALID FOR*10/20/2011 Pelvic pain in female [R10.2] INVALID FOR*10/20/2011 Microscopic hematuria [R31.29] INVALID FOR*09/15/2016 Other hammer toe (acquired) [M20.40] INVALID FOR*10/20/2011 Hallux valgus (acquired) [M20.10] INVALID FOR* Internal hemorrhoids without mention of complic*INVALID FOR*10/20/2011 Diarrhea [R19.7] INVALID FOR*10/20/2011 Abdominal pain, generalized [R10.84] INVALID FOR*10/20/2011 Low back pain [M54.5] INVALID FOR* Closed fracture of metatarsal bone(s) [S92.309A]INVALID FOR*09/15/2016 Tendonitis [M77.9] INVALID FOR*09/15/2016 Acne Vulgaris: Grade III Inflammatory and Comed*INVALID FOR*09/15/2016 Other seborrheic dermatitis [L21.8] INVALID FOR*09/15/2016 History of cold-induced urticaria [Z87.2] INVALID FOR* Seborrhea [L21.9] INVALID FOR*09/15/2016 Eczematous dermatitis [L30.9] INVALID FOR*09/15/2016 Xerosis cutis [L85.3] INVALID FOR*09/15/2016 Backache, unspecified [M54.9] INVALID FOR*09/15/2016 Asthma [J45.909] INVALID FOR* Attention-deficit hyperactivity disorder, predo*INVALID FOR* Pain disorder with psychological component [F45*INVALID FOR* Adjustment disorder with mixed anxiety and depr*INVALID FOR* Chronic midline low back pain without sciatica *INVALID FOR* Cervicalgia [M54.2] INVALID FOR* Degeneration of cervical intervertebral disc [M*INVALID FOR* Allergic rhinitis [J30.9] INVALID FOR* Other instructions from your clinician: Take medications as prescribed. If not improving in 3- 5 days, or you have worsening symptoms, see your primary care provider for recheck. We will only call if the vaginal swabs show signs of infection. Prescriptions ordered this encounter Disp Refills Start End DOCUSATE SODIUM 100 MG CAPSULE 30 c* 0 03/16/2018 Route: ORAL Sig: Take 1 capsule by mouth twice daily as needed for Constipation. Encounter Status:Closed by DORYS SHORT on 03/16/18 GC/CHLAMYDIA AMPLIF Collected: 03/16/2018 Status: F Source: [place] 2:51 AM [facility] REPOSITORY TYPE CODE TESTS RESULT OUT OF REFERENCE UNITS RANGE LAB GCCTSR GC/Chlam Amp [facility] Source LAB GCAMPL GC Negative Amplification for Neisseria gonorrhoeae by amplification. LAB CLAMPL Chlamydia Negative Amplif for Chlamydia trachomatis by amplification. Performed By: #### GCCT #### [facility] [address] [place], [place] [address] EMERGENCY DEPARTMENT Observed: 03/13/2018 Status: F Source: [place] SUMMARY 6:26 AM [facility] REPOSITORY [facility] Medical Records Department [address] [place] [address] Emergency Department Summary 03/13/18 0623 MR#: [id number] Acct: [id number] Name: ANGELICA ANDUJAR Rep #: [id number] : 1980 37 From: Lucero Floyd MD PCP: Mallorie Juares Status: DEP ER - ER Visit Summary Date of Service: 03/13/18 Chief Complaint: Left hip pain History of Present Illness: The patient is a 37 F presenting with left hip pain. She states this has been ongoing for the past 2 weeks. She has seen a chiropractor and states that is not helping. She states her chiropractor told her that her hip was out of place. She has been taking naproxen at home. Pain is in her left lower back radiating to her left hip. She has had no bowel or bladder incontinence. No numbness or weakness. No fever. She states she has also had a cough for the past week. She states she is wheezing in the morning only. She has a history of seasonal allergies. She denies other complaints. Physical Examination: Vitals are stable. Patient is afebrile. Alert no acute distress. HEENT exam is unremarkable. Neck is supple. Lungs are clear and equal bilaterally. Heart is regular rate and rhythm. Extremities left lumbar paraspinal muscle tenderness, straight leg raise positive at 30 on the left Skin is warm and dry. No focal neurologic deficit. Normal strength and sensation Remainder of exam is unremarkable. Emergency Department Course and Treatment: Patient declined pain medication in the emergency department. X-ray of the chest and left hip show no acute process. She is given a prescription for Flexeril and advised to continue naproxen. She is given Tessalon. Advised to follow-up with her primary care physician. Advised return to ED if worsening complaints. Disposition: Discharge home Impression: Sciatica, viral syndrome This note was generated with [employer] dictation software. It may contain incorrect words, spelling, and punctuation that were not noted in review of the chart prior to signing ED Disposition - Plan for ED Patient: Disposition: Home or Assisted Living Chief Complaint: Shortness of Breath Instructions: ED Sciatica Prescriptions: Benzonatate [Tessalon Perle] 200 mg PO TID PRN PRN #20 capsule PRN Reason: Cough Cyclobenzaprine [Flexeril] 10 mg PO TID PRN #20 tablet PRN Reason: Muscle Spasm Referrals: Mallorie Alexis NP-C [Primary Care Provider] - What to do if you have Problems For any increased pain, shortness of breath, bleeding, nausea or vomiting, chest pain, or any unexpected problems, contact your Primary Care Provider. Call [facility] ([phone]) or report to the closest Emergency Room. Call 911 if necessary. 03/13/18625 <Electronically signed by Lucero Floyd MD> Date Lucero Floyd MD Cosigner Signature (If Indicated): Date CC: Mallorie DE LA TORRE DISCHARGE INSTRUCTION Observed: 03/13/2018 Status: F Source: [place] 12:15 AM [facility] REPOSITORY [facility] Medical Records Department [address] [place] [address] Discharge Instruction 03/13/18 0014 MR#: [id number] Acct: [id number] Name: ANDUJARJOSEFINA Rep #: [id number] : 1980 37 From: Lucero Floyd MD PCP: Mallorie Juares Status: PRE ER ED Disposition - Plan for ED Patient: Chief Complaint: Shortness of Breath Instructions: ED Sciatica Prescriptions: Benzonatate [Tessalon Perle] 200 mg PO TID PRN PRN #20 capsule PRN Reason: Cough Cyclobenzaprine [Flexeril] 10 mg PO TID PRN #20 tablet PRN Reason: Muscle Spasm Referrals: Mallorie Alexis NP-C [Primary Care Provider] - What to do if you have Problems For any increased pain, shortness of breath, bleeding, nausea or vomiting, chest pain, or any unexpected problems, contact your Primary Care Provider. Call [facility] ([phone]) or report to the closest Emergency Room. Call 911 if necessary. 03/13/18 0015 <Electronically signed by Lucreo Floyd MD> Date Lucero Floyd MD Cosigner Signature (If Indicated): Date CC: Mallorie DE LA TORRE HIP 2-3 VIEWS WITH Observed: 03/12/2018 Status: F Source: [place] PELVIS 10:44 PM [facility] REPOSITORY [facility] Imaging Services [address] [place] [address] Hip 2-3 Views with Pelvis MR#: [id number] Acct: [id number] Name: ANGELICA ANDUJAR Rep #: [id number] : 1980 F 37 From: Job Cao MD PCP: Mallorie Juares Status: PRE ER Study: Hip 2-3 Views with Pelvis Date of Exam: 03/12/18 Exam# [id number] Ordering Dr: Lucero Floyd MD STUDY: X-RAY - PELVIS AND LEFT HIP REASON FOR EXAM: Female, 37 years old. Pain, no known injury TECHNIQUE: Radiological exam, hip, unilateral, with pelvis when performed; 2 or 3 views. COMPARISON: None. FINDINGS: There is a non-specific bowel gas pattern. Normal visualized soft tissue structures. Normal bilateral iliac wings, sacroiliac joints and visualized sacrum. Normal bilateral superior and inferior pubic rami. Normal pubic symphysis. Normal bilateral ischial tuberosities. Normal visualized femoral head. Normal acetabulum. Normal hip joint. RAD/Hip 2-3 Views with Pelvis IMPRESSION: Normal x-ray examination of the pelvis and hip. Electronically Signed: Job Cao MD at 23:23 EDT , Service support , CC: Lucero Floyd MD; Mallorie DE LA TORRE Vault Mechanic: Signed CHEST 1 VIEW Observed: 03/12/2018 Status: F Source: [place] (PORTABLE) 10:23 PM [facility] REPOSITORY [facility] Imaging Services [address] [place] [address] Chest 1 View (Portable) MR#: [id number] Acct: [id number] Name: ANGELICA ANDUJAR Rep #: [id number] : 1980 F 37 From: Karson Vieira MD PCP: Mallorie Juares Status: PRE ER Study: Chest 1 View (Portable) Date of Exam: 03/12/18 Exam# [id number] Ordering Dr: Provider, Ed P. STUDY: X-RAY CHEST REASON FOR EXAM: Female, 37 years old. Shortness of breath TECHNIQUE: Frontal view of the chest COMPARISON: 03/03/2018 FINDINGS: The lungs are clear. There are no pleural effusions. There is no pneumothorax. The heart is normal in size. The visualized osseous structures are within normal limits. RAD/Chest 1 View (Portable) IMPRESSION: No acute thoracic pathology. Electronically Signed: Karson Vieira, at 22:39 EDT Tel , Service support , CC: ED PHYSICIAN PROVIDER; Mallorie DE LA TORRE Vault Mechanic: Signed PROGRESS Observed: 03/06/2018 Status: COMPLETED Source: [place] 10:22 AM [facility] REPOSITORY HNO ID: [id number] Author: Ian Ying Service: (none) Author Type: Physician Type: Progress Notes Filed: 03/06/2018 11:49 AM Note Text: Patient presents with: Cough HPI: Feeling sick for 1 1/2 weeks with cough. She was taken to the ER by EMS 3 days ago for difficulty breathing. She continues to have shortness of breath but reports the ER instructed her to f/u with her PCP rather than have re-evaluation there. Her PCP's office is closed today. Positive symptoms: shortness of breath, chest soreness, back pain, mild rhinorrhea, chills the night she went to the ER, Negative symptoms: Fever, OTC: tessalon was not helping enough, albuterol, cough DM medicine, lozenges, flonase, loratadine today(out of loratadine x 4 day), naproxen. Has no asthma controller medicine currently. Had CXR in the ER. PAST MEDICAL HISTORY Diagnosis Date - 11/2009 - Anxiety - Asthma - Depression - Recurrent UTI - Seasonal allergies - STD (sexually transmitted disease) MEDICATIONS: Current Outpatient Prescriptions: naproxen (NAPROSYN) 500 mg tablet Take 1 tablet by mouth twice daily with meals. FOR PAIN. TAKE WITH FOOD. albuterol HFA (PROAIR HFA) 90 mcg/actuation inhaler Inhale 2 Puffs as instructed every 4 hours as needed for Wheezing/Shortness of Breath. CALCIUM CARBONATE/VITAMIN D3 (VITAMIN D-3 ORAL) Take by mouth. VITAMIN D-3 2,000 unit cap naproxen (NAPROSYN) 500 mg tablet Take 1 tablet by mouth twice daily as needed (for pain/inflammation). Take with food. (Patient taking differently: Take 250 mg by mouth twice daily as needed (for pain/inflammation). Take with food.) ketotifen fumarate (ZADITOR) 0.025 % (0.035 %) ophthalmic solution Use 1 Drop in both eyes twice daily. As needed. fluticasone (FLONASE) 50 mcg/actuation nasal spray Use 2 Sprays in each nostril once daily. Multivitamin capsule Take 1 capsule by mouth once daily. folic acid 400 mcg tablet Take 400 mcg by mouth once daily. benzonatate (TESSALON PERLE) 100 mg capsule Take 1 capsule by mouth every 8 hours as needed for Cough. beclomethasone (QVAR) 80 mcg/actuation inhaler Inhale 2 Puffs as instructed twice daily. famotidine (PEPCID) 20 mg tablet Take 1 tablet by mouth at bedtime as needed. escitalopram oxalate (LEXAPRO) 20 mg tablet Take 1 tablet by mouth once daily. loratadine (CLARITIN) 10 mg tablet Take 1 tablet by mouth once daily. L.ACID/L.CASEI/B.BIF/B.FLOR/FOS (PROBIOTIC BLEND ORAL) Take by mouth. Hydrocortisone Acetate 1 % crea Apply 1 application to affected area twice daily. (Patient taking differently: Apply 1 application to affected area as needed.) No current facility-administered medications for this visit. ALLERGIES: ALLERGIES Allergen Reactions - Anti-Bacterial Jennifer* Rash - Bees Unknown Listed on records from Samantha Hood - Benzalkonium Chlori* Other: See Comments Skin irritations - Doxycycline GI Upset stomach cramps - Dust Mites Unknown Dust mites and cockroaches - Flagyl [Metronidazo* Hives - Hand Loan Servicing Officer [Eth* Rash PT HAS SENSITIVE SKIN. O.K. FOR MEDICAL PROFESSIONAL TO USE HAND LAWN CARE SPECIALIST AND THEN TOUCH HER, BUT SHE HERSELF DOES NOT USE IT. - Iodine Rash - Lactose Intolerance* - Nisqually Anaphylaxis - Mold Unknown - Morphine Itching - Penicillin Unknown - Pet Dander [Other] Unknown Cat, Dog, Horse - Prednisone Other: See Comments Moodiness, restlessness, states feels like crap all over. - Seasonal Allergies Unknown Trees, grasses, weeds, ragweed. - Singulair [Monteluk* Unknown Possible rash - Sodium Lauryl Sulfa* Rash Skin irritation to scalp - Trees Other: See Comments - Zofran [Ondansetron* Other: See Comments Zofran causes cramping and constipation VITALS: BP 104/60 Pulse 79 Temp 36.2 ?C (97.1 ?F) (Left Tympanic) Resp 16 SpO2 96% PHYSICAL EXAM: GEN: Alert, in no distress, HEENT: PERRL, EOMI, conjunctiva clear Ears: canals clear, TMs without erythema, bulge, or effusion Sinuses: non-tender frontal sinus, non-tender maxillary sinuses Throat: moist mucous membranes, mild erythema, no exudate Neck: supple, no thyromegaly, no lymphadenopathy HEART: regular rate and rhythm, no murmurs LUNGS: clear to auscultation, no wheezes or crackles, no increased WOB BACK: Points to mid lumbar spine as location of pain. No paraspinal tenderness. PSYCH: Full range of affect including tearful, mood is somewhat depressed. Refused triage recommendation to f/u with PCP and closed the exam door on PROGRESS CLERK. ASSESSMENT/PLAN: 1. Cough - ICD9: 786.2, ICD10: R05 (primary diagnosis) 2. Uncomplicated asthma, unspecified asthma severity, unspecified whether persistent - ICD9: 493.90, ICD10: J45.909 Suspect flare of breathing from recent URI and allergies. Resume claritin. Witnessed albuterol inhaler use revealed medication visibly exhaled through her nose rather than inhaled on 2 of 3 attempts. - INHALATIONAL SPACING DEVICE Controller asthma medication may be needed. She thinks insurance issues are why she is not taking qvar. Follow up with PCP. She mentions in the hallway a pulmonology test with PFT did not show asthma. Quick chart review after the visit revealed - Spirometry completed on 04/26/2012: Mild obstruction without a significant bronchodilator response. Candie Elliott MD 3. Sore throat - ICD9: 462, ICD10: J02.9 - RAPID STREP TEST B/O negative. Ian Ying MD CNOV Observed: 03/06/2018 Status: COMPLETED Source: [place] 9:45 AM [facility] REPOSITORY Office Visit (WSTR) ANGELICA ANDUJAR ([id number]) 1980 F Date Time Provider Department 03/06/18 9:45 AM I[facility] YING [facility] During your visit today, we recorded the following information about you: Temperature Pulse Respiration Blood pressure 97.1 degrees 79/minute 16/minute 104/60 Ian Ying MD 03/06/2018 11:49 AM Signed Patient presents with: Cough HPI: Feeling sick for 1 1/2 weeks with cough. She was taken to the ER by EMS 3 days ago for difficulty breathing. She continues to have shortness of breath but reports the ER instructed her to f/u with her PCP rather than have re-evaluation there. Her PCP's office is closed today. Positive symptoms: shortness of breath, chest soreness, back pain, mild rhinorrhea, chills the night she went to the ER, Negative symptoms: Fever, OTC: tessalon was not helping enough, albuterol, cough DM medicine, lozenges, flonase, loratadine today(out of loratadine x 4 day), naproxen. Has no asthma controller medicine currently. Had CXR in the ER. PAST MEDICAL HISTORY Diagnosis Date - 11/2009 - Anxiety - Asthma - Depression - Recurrent UTI - Seasonal allergies - STD (sexually transmitted disease) MEDICATIONS: Current Outpatient Prescriptions: naproxen (NAPROSYN) 500 mg tablet Take 1 tablet by mouth twice daily with meals. FOR PAIN. TAKE WITH FOOD. albuterol HFA (PROAIR HFA) 90 mcg/actuation inhaler Inhale 2 Puffs as instructed every 4 hours as needed for Wheezing/Shortness of Breath. CALCIUM CARBONATE/VITAMIN D3 (VITAMIN D-3 ORAL) Take by mouth. VITAMIN D-3 2,000 unit cap naproxen (NAPROSYN) 500 mg tablet Take 1 tablet by mouth twice daily as needed (for pain/inflammation). Take with food. (Patient taking differently: Take 250 mg by mouth twice daily as needed (for pain/inflammation). Take with food.) ketotifen fumarate (ZADITOR) 0.025 % (0.035 %) ophthalmic solution Use 1 Drop in both eyes twice daily. As needed. fluticasone (FLONASE) 50 mcg/actuation nasal spray Use 2 Sprays in each nostril once daily. Multivitamin capsule Take 1 capsule by mouth once daily. folic acid 400 mcg tablet Take 400 mcg by mouth once daily. benzonatate (TESSALON PERLE) 100 mg capsule Take 1 capsule by mouth every 8 hours as needed for Cough. beclomethasone (QVAR) 80 mcg/actuation inhaler Inhale 2 Puffs as instructed twice daily. famotidine (PEPCID) 20 mg tablet Take 1 tablet by mouth at bedtime as needed. escitalopram oxalate (LEXAPRO) 20 mg tablet Take 1 tablet by mouth once daily. loratadine (CLARITIN) 10 mg tablet Take 1 tablet by mouth once daily. L.ACID/L.CASEI/B.BIF/B.FLOR/FOS (PROBIOTIC BLEND ORAL) Take by mouth. Hydrocortisone Acetate 1 % crea Apply 1 application to affected area twice daily. (Patient taking differently: Apply 1 application to affected area as needed.) No current facility-administered medications for this visit. ALLERGIES: ALLERGIES Allergen Reactions - Anti-Bacterial Jennifer* Rash - Bees Unknown Listed on records from Samantha Hood - Benzalkonium Chlori* Other: See Comments Skin irritations - Doxycycline GI Upset stomach cramps - Dust Mites Unknown Dust mites and cockroaches - Flagyl [Metronidazo* Hives - Hand Loan Servicing Officer [Eth* Rash PT HAS SENSITIVE SKIN. O.K. FOR MEDICAL PROFESSIONAL TO USE HAND LAWN CARE SPECIALIST AND THEN TOUCH HER, BUT SHE HERSELF DOES NOT USE IT. - Iodine Rash - Lactose Intolerance* - Nisqually Anaphylaxis - Mold Unknown - Morphine Itching - Penicillin Unknown - Pet Dander [Other] Unknown Cat, Dog, Horse - Prednisone Other: See Comments Moodiness, restlessness, states feels like crap all over. - Seasonal Allergies Unknown Trees, grasses, weeds, ragweed. - Singulair [Monteluk* Unknown Possible rash - Sodium Lauryl Sulfa* Rash Skin irritation to scalp - Trees Other: See Comments - Zofran [Ondansetron* Other: See Comments Zofran causes cramping and constipation VITALS: BP 104/60 Pulse 79 Temp 36.2 ?C (97.1 ?F) (Left Tympanic) Resp 16 SpO2 96% PHYSICAL EXAM: GEN: Alert, in no distress, HEENT: PERRL, EOMI, conjunctiva clear Ears: canals clear, TMs without erythema, bulge, or effusion Sinuses: non-tender frontal sinus, non-tender maxillary sinuses Throat: moist mucous membranes, mild erythema, no exudate Neck: supple, no thyromegaly, no lymphadenopathy HEART: regular rate and rhythm, no murmurs LUNGS: clear to auscultation, no wheezes or crackles, no increased WOB BACK: Points to mid lumbar spine as location of pain. No paraspinal tenderness. PSYCH: Full range of affect including tearful, mood is somewhat depressed. Refused triage recommendation to f/u with PCP and closed the exam door on PROGRESS CLERK. ASSESSMENT/PLAN: 1. Cough - ICD9: 786.2, ICD10: R05 (primary diagnosis) 2. Uncomplicated asthma, unspecified asthma severity, unspecified whether persistent - ICD9: 493.90, ICD10: J45.909 Suspect flare of breathing from recent URI and allergies. Resume claritin. Witnessed albuterol inhaler use revealed medication visibly exhaled through her nose rather than inhaled on 2 of 3 attempts. - INHALATIONAL SPACING DEVICE Controller asthma medication may be needed. She thinks insurance issues are why she is not taking qvar. Follow up with PCP. She mentions in the hallway a pulmonology test with PFT did not show asthma. Quick chart review after the visit revealed - Spirometry completed on 04/26/2012: Mild obstruction without a significant bronchodilator response. Candie Elliott MD 3. Sore throat - ICD9: 462, ICD10: J02.9 - RAPID STREP TEST B/O negative. Ian Ying MD Referring Provider: SELF [200] Allergies As of Date: 03/06/2018 Noted Allergy Reaction ANTI-BACTERIAL CLEANSING (BENZETH*10/26/2012 2 - Rash BEES 07/16/2010 16 - Unknown Comments: Listed on records from Samantha Callahansarahemory BENZALKONIUM CHLORIDE 09/08/2012 14 - Other: See Comments Comments: Skin irritations DOXYCYCLINE 12/13/2012 8 - GI Upset Comments: stomach cramps DUST MITES 04/26/2012 16 - Unknown Comments: Dust mites and cockroaches FLAGYL (METRONIDAZOLE HCL) 06/20/2012 4 - Hives HAND LAWN CARE SPECIALIST (ETHYL ALCOHOL (SK*11/04/2009 2 - Rash Comments: PT HAS SENSITIVE SKIN. O.K. FOR MEDICAL PROFESSIONAL TO USE HAND LAWN CARE SPECIALIST AND THEN TOUCH HER, BUT SHE HERSELF DOES NOT USE IT. IODINE 02/18/2011 2 - Rash LACTOSE INTOLERANCE (LACTASE) 11/04/2009 SAUK-SUIATTLE 12/07/2017 10 - Anaphylaxis MOLD 04/26/2012 16 - Unknown MORPHINE 03/02/2011 9 - Itching PENICILLIN 06/18/2016 16 - Unknown pet dander [Other] 10/20/2011 16 - Unknown Comments: Cat, Dog, Horse PREDNISONE 08/26/2012 14 - Other: See Comments Comments: Moodiness, restlessness, states feels like crap all over. SEASONAL ALLERGIES 11/04/2009 16 - Unknown Comments: Trees, grasses, weeds, ragweed. SINGULAIR (MONTELUKAST) 12/07/2017 16 - Unknown Comments: Possible rash SODIUM LAURYL SULFATE 09/30/2010 2 - Rash Comments: Skin irritation to scalp TREES 05/11/2012 14 - Other: See Comments ZOFRAN (ONDANSETRON HCL (PF)) 03/02/2011 14 - Other: See Comments Comments: Zofran causes cramping and constipation Date Reviewed: 03/06/2018 Reviewed by: Geni Booker Ma - Fully Assessed Reason for Visit: Cough [28] Primary Visit Diagnosis:Cough [R05] Other Visit Diagnoses:Uncomplicated asthma, unspecified asthma severity, unspecified whether persistent [J45.909] Sore throat [J02.9] Order(s):RAPID STREP TEST B/O [5052477] Order #: [id number] Inhalational Spacing Device spcr1 Device one time only for 1 dose.Disp: 1 EachRfl: 0 Prescriptions as of 03/06/2018 Sig: NAPROXEN 500 MG TABLET Take 1 tablet by mouth twice * ALBUTEROL SULFATE HFA 90 MCG/* Inhale 2 Puffs as instructed * VITAMIN D-3 ORAL Take by mouth. VITAMIN D3 2,000 UNIT CAPSULE NAPROXEN 500 MG TABLET Take 1 tablet by mouth twice * Patient taking differently: Take 250 mg by mouth twice da* KETOTIFEN 0.025 % (0.035 %) E* Use 1 Drop in both eyes twice* FLUTICASONE 50 MCG/ACTUATION * Use 2 Sprays in each nostril * MULTIVITAMIN CAPSULE Take 1 capsule by mouth once * INHALATIONAL SPACING DEVICE 1 Device one time only for 1 * FOLIC ACID 400 MCG TABLET Take 400 mcg by mouth once da* BENZONATATE 100 MG CAPSULE Take 1 capsule by mouth every* BECLOMETHASONE DIPROPIONATE 8* Inhale 2 Puffs as instructed * FAMOTIDINE 20 MG TABLET Take 1 tablet by mouth at bed* ESCITALOPRAM 20 MG TABLET Take 1 tablet by mouth once d* LORATADINE 10 MG TABLET Take 1 tablet by mouth once d* PROBIOTIC BLEND ORAL Take by mouth. HYDROCORTISONE ACETATE 1 % TO* Apply 1 application to affect* Patient taking differently: Apply 1 application to affect* Problem List As Of Date 03/06/2018 Noted Resolved Frequency of urination [R35.0] INVALID FOR*10/20/2011 Pelvic pain in female [R10.2] INVALID FOR*10/20/2011 Microscopic hematuria [R31.29] INVALID FOR*09/15/2016 Other hammer toe (acquired) [M20.40] INVALID FOR*10/20/2011 Hallux valgus (acquired) [M20.10] INVALID FOR* Internal hemorrhoids without mention of complic*INVALID FOR*10/20/2011 Diarrhea [R19.7] INVALID FOR*10/20/2011 Abdominal pain, generalized [R10.84] INVALID FOR*10/20/2011 Low back pain [M54.5] INVALID FOR* Closed fracture of metatarsal bone(s) [S92.309A]INVALID FOR*09/15/2016 Tendonitis [M77.9] INVALID FOR*09/15/2016 Acne Vulgaris: Grade III Inflammatory and Comed*INVALID FOR*09/15/2016 Other seborrheic dermatitis [L21.8] INVALID FOR*09/15/2016 History of cold-induced urticaria [Z87.2] INVALID FOR* Seborrhea [L21.9] INVALID FOR*09/15/2016 Eczematous dermatitis [L30.9] INVALID FOR*09/15/2016 Xerosis cutis [L85.3] INVALID FOR*09/15/2016 Backache, unspecified [M54.9] INVALID FOR*09/15/2016 Asthma [J45.909] INVALID FOR* Attention-deficit hyperactivity disorder, predo*INVALID FOR* Pain disorder with psychological component [F45*INVALID FOR* Adjustment disorder with mixed anxiety and depr*INVALID FOR* Chronic midline low back pain without sciatica *INVALID FOR* Cervicalgia [M54.2] INVALID FOR* Degeneration of cervical intervertebral disc [M*INVALID FOR* Allergic rhinitis [J30.9] INVALID FOR* Prescriptions ordered this encounter Disp Refills Start End INHALATIONAL SPACING DEVICE 1 Ea* 0 03/06/2018 03/06/2018 Class: Print RX Route: Misc Si Device one time only for 1 dose. Encounter Status:Closed by IAN YING MD on 03/06/18 EMERGENCY DEPARTMENT Observed: 03/03/2018 Status: F Source: [place] SUMMARY 6:16 AM [facility] [place] REPOSITORY [facility] Medical Records Department [address] [place] [address] Emergency Department Summary 03/03/18 0511 MR#: [id number] Acct: [id number] Name: ANGELICA ANDUJAR Rep #: [id number] : 1980 37 From: Ronald Mcqueen PCP: Mallorie Juares Status: REG ER - ER Visit Summary Date of Service: 03/03/18 Chief Complaint: Cough History of Present Illness: The patient is a 37 F 2 week history of productive cough. No fevers. Denies sick contacts. Tobacco history. Wheezing. No history of asthma or COPD. Seasonal allergies that causes wheezing. Does have an inhaler. States symptoms not improving therefore get tired of it and came here. She is brought by EMS. Denies vomiting. This evening states drinks 3 beers earlier, around midnight took Tessalon Perles. States concern of the mixture. History of chronic back pain with sciatica. States takes naproxen. History of reflux on medications. Denies vomiting or melena. Patient ambulated into the ED from EMS. Physical Examination: General: Alert and oriented 3, no acute distress HEENT: Normocephalic, atraumatic. Moist mucosa membranes Neck: supple, nontender. Cardiovascular: Regular rate and rhythm, no murmurs Respiratory: Mild expiratory wheeze on the right side, no distress, no rales or rhonchi. Abdomen: Soft, nontender, nondistended Extremities: Nontender, no edema, pulses intact 4 Neuro: no focal neurological deficits. Test Results: Chest x-ray: No acute process Emergency Department Course and Treatment: Patient vitals stable. Mild wheeze on exam, DuoNeb treatment improved her symptoms. Chest x-ray negative. Discussed viral syndrome. Tobacco cessation discussed. Patient no respiratory depression on evaluation for concerns of her alcohol and Tessalon intake. She is reassured. Discussed with patient follow-up with her PCP for reevaluation. All questions were answered. Treatment Plan: [] Disposition: Discharge Impression: Viral upper respiratory infection This note was generated with ImpactMediaation software. It may contain incorrect words, spelling, and punctuation that were not noted in review of the chart prior to signing ED Disposition - Plan for ED Patient: Disposition: Home or Assisted Living Chief Complaint: Cough Diagnosis: Viral upper respiratory tract infection with cough Instructions: ED Upper Resp Infec No Abx Tx Prescriptions: Albuterol Inhaler [Ventolin Hfa] 1 - 2 puff INHALATION Q4H PRN PRN #1 inhaler PRN Reason: Wheezing Referrals: Mallorie Alexis, PROGRESS CLERK-C [Primary Care Provider] - 3-5 Days What to do if you have Problems For any increased pain, shortness of breath, bleeding, nausea or vomiting, chest pain, or any unexpected problems, contact your Primary Care Provider. Call [facility] ([phone]) or report to the closest Emergency Room. Call 911 if necessary. 03/03/18 06 <Electronically signed by Ronald Mcqueen> Date Ronald Mcqueen Cosigner Signature (If Indicated): Date CC: Mallorie DE LA TORRE CHEST PA AND LATERAL Observed: 03/03/2018 Status: F Source: [place] 5:07 AM [facility] REPOSITORY [facility] Imaging Services [address] [place] [id number] Chest PA and Lateral MR#: [id number] Acct: [id number] Name: ANGELICA ANDUJAR Rep #: [id number] : 1980 F 37 From: Cedric Hou MD PCP: Mallorie Juares Status: DEP ER Study: Chest PA and Lateral Date of Exam: 03/03/18 Exam# [id number] Ordering Dr: Ronald Gonzalez DO STUDY: X-RAY CHEST REASON FOR EXAM: Female, 37 years old. Cough TECHNIQUE: Frontal and lateral views of the chest. COMPARISON: None. FINDINGS: The lungs are clear and expanded. There is no demonstrated pleural abnormality. Normal size heart. Normal mediastinum and jennifer. Normal visualized pulmonary arteries. Normal visualized aortic arch and descending thoracic aorta. Normal visualized thoracic spine. Normal visualized ribs, clavicles, and shoulders. There is no demonstrated abnormality of the visualized soft tissue structures of the upper abdomen. RAD/Chest PA and Lateral IMPRESSION: Normal x-ray examination of the chest. Electronically Signed: Cedric Hou MD at 6:44 EDT Tel , Service support , CC: Mallorie DE LA TORRE; Ronald Gonzalez Vault Mechanic: Signed PROGRESS Observed: 02/21/2018 Status: COMPLETED Source: [place] 1:25 PM [facility] [place] REPOSITORY HNO ID: [id number] Author: Yogi Amos Service: (none) Author Type: Physician Type: Progress Notes Filed: 02/21/2018 1:51 PM Note Text: ? Yogi Amos DPM Department of Podiatry [address] [facility] [address] Dept: [phone] Dept 02/21/2018 Initial Podiatric Office Visit: HPI: Angelica Andujar is a 37 year old female. Patient presents with L foot pain. Patient reports constant L foot pain that is rated a 5-6/10 that is achy and annoying. Increased with prolonged standing and becomes sharp, stabbing and throbbing. Patient is currently seeing a chiropractor, taking naproxen, and doing hot foot baths with some relief. Patient has history of Hallux Abductovalgus b/l L>R, posterior tibial tendonitis. Patient has boot and ankle brace at home from previous encounters. Patient also c/o of R foot x1 week or so. Pain to forefoot that comes and goes, unable to describe any exacerbating factors. Patient denies being diabetic. Patient is a smoker, 3-5 cigarettes daily. Patient reports that current custom orthotics were destroyed by friends dog. Patient does have appointment with [email or web address] next week and is requesting new order for orthotics to take. PCP: Mallorie Alexis CNP PAST MEDICAL HISTORY Diagnosis Date - 11/2009 - Anxiety - Asthma - Depression - Recurrent UTI - Seasonal allergies - STD (sexually transmitted disease) Current Outpatient Prescriptions: terbinafine HCl (LAMISIL) 1 % cream Apply 1 application to affected area twice daily for 14 days. folic acid 400 mcg tablet Take 400 mcg by mouth once daily. benzonatate (TESSALON PERLE) 100 mg capsule Take 1 capsule by mouth every 8 hours as needed for Cough. albuterol HFA (PROAIR HFA) 90 mcg/actuation inhaler Inhale 2 Puffs as instructed every 4 hours as needed for Wheezing/Shortness of Breath. CALCIUM CARBONATE/VITAMIN D3 (VITAMIN D-3 ORAL) Take by mouth. VITAMIN D-3 2,000 unit cap beclomethasone (QVAR) 80 mcg/actuation inhaler Inhale 2 Puffs as instructed twice daily. famotidine (PEPCID) 20 mg tablet Take 1 tablet by mouth at bedtime as needed. naproxen (NAPROSYN) 500 mg tablet Take 1 tablet by mouth twice daily as needed (for pain/inflammation). Take with food. (Patient taking differently: Take 250 mg by mouth twice daily as needed (for pain/inflammation). Take with food.) ketotifen fumarate (ZADITOR) 0.025 % (0.035 %) ophthalmic solution Use 1 Drop in both eyes twice daily. As needed. escitalopram oxalate (LEXAPRO) 20 mg tablet Take 1 tablet by mouth once daily. fluticasone (FLONASE) 50 mcg/actuation nasal spray Use 2 Sprays in each nostril once daily. loratadine (CLARITIN) 10 mg tablet Take 1 tablet by mouth once daily. L.ACID/L.CASEI/B.BIF/B.FLOR/FOS (PROBIOTIC BLEND ORAL) Take by mouth. Hydrocortisone Acetate 1 % crea Apply 1 application to affected area twice daily. (Patient taking differently: Apply 1 application to affected area as needed.) Multivitamin capsule Take 1 capsule by mouth once daily. No current facility-administered medications for this visit. ALLERGIES Allergen Reactions - Anti-Bacterial Jennifer* Rash - Bees Unknown Listed on records from Samantha Hood - Benzalkonium Chlori* Other: See Comments Skin irritations - Doxycycline GI Upset stomach cramps - Dust Mites Unknown Dust mites and cockroaches - Flagyl [Metronidazo* Hives - Hand Loan Servicing Officer [Eth* Rash PT HAS SENSITIVE SKIN. O.K. FOR MEDICAL PROFESSIONAL TO USE HAND LAWN CARE SPECIALIST AND THEN TOUCH HER, BUT SHE HERSELF DOES NOT USE IT. - Iodine Rash - Lactose Intolerance* - Nisqually Anaphylaxis - Mold Unknown - Morphine Itching - Penicillin Unknown - Pet Dander [Other] Unknown Cat, Dog, Horse - Prednisone Other: See Comments Moodiness, restlessness, states feels like crap all over. - Seasonal Allergies Unknown Trees, grasses, weeds, ragweed. - Singulair [Monteluk* Unknown Possible rash - Sodium Lauryl Sulfa* Rash Skin irritation to scalp - Trees Other: See Comments - Zofran [Ondansetron* Other: See Comments Zofran causes cramping and constipation PAST SURGICAL HISTORY Procedure Laterality Date - COLONOSCOPY W/BX 03/02/11 - EGD W/O OR W/BRUSH/WASH 11/14/2012 EGD - MED INC ALL EX DRUG 11/2009 - PAST SURGICAL HISTORY OF WISDOM TEETH FAMILY HISTORY Problem Relation Age of Onset - Alcohol/Drug Mother - Arthritis Mother - Asthma Mother - Cancer Mother CANCER - Hypertension Mother - Stroke Mother - Cancer Father LUNG CANCER - Emphysema Father - Asthma Brother - Breast Cancer Maternal Aunt - Hypertension Brother Social History Marital status: Single Spouse name: Years of education: GED Number of children: 0 Occupational History Occupation Employer Comment Unemployed Social History Main Topics Smoking status: Current Every Day Smoker Packs/day: 0.00 Years: 3.00 Types: Cigarettes Last attempt to quit: 09/08/2015 Smokeless tobacco: Never Used Comment: 2 weeks no cigarettes Alcohol use: Yes Comment: Seldom Drug use: No Sexual activity: Yes Partners with: Male control/protection: None REVIEW OF SYSTEMS: CONSTITUTIONAL: No fevers, chills, nightsweats, unintended weight loss HEENT: Denies frequent or severe heaches, nasal congestion/sinus symptoms, problematic allergy problems. EYES: No diplopia or blurry vision. CARDIOVASCULAR: No chest pain, dyspnea, palpitations, orthopnea, PND, ankle edema. PULM: No dyspnea, unexplained cough. GI: No dysphagia/odynophagia, problematic reflux, constipation, diarrhea, changes in stool habits, hematochezia, melena. : No new urinary complaints, including dysuria, gross hematuria or pyuria. NEURO: No new balance problems, peripheral weakness/paresthesias or numbness of concern. MUSC-SKEL: No new joint pain, swelling, or erythema. PSY: No concerns regarding depression, anxiety or panic. INTEGUMENTARY: No new skin changes (rash, new or changing mole, new growth) Physical Exam: Constitutional: Pt is a well developed 37 year old female who is alert, oriented and cooperative Eyes: Following during examination. No redness or drainage. Respiratory: RR normal and nonlabored. Even breathing. No evidence of distress or shortness of breath. Psychology: Patient is engaged during conversation. Normal affect and mood. Does not appear depressed or anxious during encounter. Vascular: Dorsalis pedis and posterior tibial pulses palpable, b/l Capillary Fill time < 5 seconds to digits 1-5 b/l Skin temperature warm to warm proximal to distal b/l Hair growth present to digits Neurological: intact light touch/epicritic sensation intact protective sensation Dermatological: Nails 1-5 b/l appear Normal. Webspaces clean and dry 1-4 b/l. Skin appears well hydrated and supple. good color, texture, turgor. Callosities present to bilateral medial hallux. Open lesions absent. Musculoskeletal/Orthopaedic: Patient has pain to palpation of R 2nd and 3rd metatarsal shaft, L medial band plantar fascia Foot type is pronated structurally AJ ROM is full with knee extended and flexed 1st MPJ is full when loaded and no pain or crepitus are noted with ROM. MTJ, STJ are full and free of pain and crepitus. +5/5 muscle strength dorsiflexion, plantarflexion, inversion, eversion b/l Hypermobility of b/l 1st metatarsal cun joint. Moderate bunion is present b/l. ASSESSMENT: (M72.2) Plantar fasciitis of left foot (primary encounter diagnosis) Comment: Stretches, icing, rest, custom orthotics, oral steroid. Patient can use boot that she has at home if increased pain Plan: 1. stretches (L85.9) Hyperkeratosis Plan: 1. Hyperkeratotic lesion(s) to bilateral medial hallux debrided today utilizing sanding disc. (M20.11) Hallux valgus (acquired), right foot Comment: Discussed possible Pronation more than likely causing bunion which is causing hypermobility and overload to 2nd metatarsal shaft Plan: 1. Naproxen dispensed 2. Custom Orthotics 3. Offered boot but patient declined RTC 1 month for follow up The documentation for this note was completed by Ena Conn Ma acting as scribe for Yogi Amos DPM. February 21, 2018 1:26 PM. I agree with the Chief Complaint, ROS, and Past Histories independently gathered by the clinical biomedical equipment support specialist and the remaining scribed note accurately describes my personal service to the patient. Yogi Amos DPM CNOV Observed: 02/21/2018 Status: COMPLETED Source: [place] 1:10 PM [facility] REPOSITORY Office Visit (PODIWS) ANGELICA ANDUJAR ([id number]) 1980 F Date Time Provider Department 02/21/18 1:10 PM YOGI AMOS During your visit today, we recorded the following information about you: Yogi Amos DPM 02/21/2018 1:51 PM Signed ? Yogi Amos DPM Department of Podiatry [address] [place] [id number] Dept: [phone] Dept 02/21/2018 Initial Podiatric Office Visit: HPI: Angelica Andujar is a 37 year old female. Patient presents with L foot pain. Patient reports constant L foot pain that is rated a 5-6/10 that is achy and annoying. Increased with prolonged standing and becomes sharp, stabbing and throbbing. Patient is currently seeing a chiropractor, taking naproxen, and doing hot foot baths with some relief. Patient has history of Hallux Abductovalgus b/l L>R, posterior tibial tendonitis. Patient has boot and ankle brace at home from previous encounters. Patient also c/o of R foot x1 week or so. Pain to forefoot that comes and goes, unable to describe any exacerbating factors. Patient denies being diabetic. Patient is a smoker, 3-5 cigarettes daily. Patient reports that current custom orthotics were destroyed by friends dog. Patient does have appointment with [facility] next week and is requesting new order for orthotics to take. PCP: Mallorie Alexis CNP PAST MEDICAL HISTORY Diagnosis Date - 11/2009 - Anxiety - Asthma - Depression - Recurrent UTI - Seasonal allergies - STD (sexually transmitted disease) Current Outpatient Prescriptions: terbinafine HCl (LAMISIL) 1 % cream Apply 1 application to affected area twice daily for 14 days. folic acid 400 mcg tablet Take 400 mcg by mouth once daily. benzonatate (TESSALON PERLE) 100 mg capsule Take 1 capsule by mouth every 8 hours as needed for Cough. albuterol HFA (PROAIR HFA) 90 mcg/actuation inhaler Inhale 2 Puffs as instructed every 4 hours as needed for Wheezing/Shortness of Breath. CALCIUM CARBONATE/VITAMIN D3 (VITAMIN D-3 ORAL) Take by mouth. VITAMIN D-3 2,000 unit cap beclomethasone (QVAR) 80 mcg/actuation inhaler Inhale 2 Puffs as instructed twice daily. famotidine (PEPCID) 20 mg tablet Take 1 tablet by mouth at bedtime as needed. naproxen (NAPROSYN) 500 mg tablet Take 1 tablet by mouth twice daily as needed (for pain/inflammation). Take with food. (Patient taking differently: Take 250 mg by mouth twice daily as needed (for pain/inflammation). Take with food.) ketotifen fumarate (ZADITOR) 0.025 % (0.035 %) ophthalmic solution Use 1 Drop in both eyes twice daily. As needed. escitalopram oxalate (LEXAPRO) 20 mg tablet Take 1 tablet by mouth once daily. fluticasone (FLONASE) 50 mcg/actuation nasal spray Use 2 Sprays in each nostril once daily. loratadine (CLARITIN) 10 mg tablet Take 1 tablet by mouth once daily. L.ACID/L.CASEI/B.BIF/B.FLOR/FOS (PROBIOTIC BLEND ORAL) Take by mouth. Hydrocortisone Acetate 1 % crea Apply 1 application to affected area twice daily. (Patient taking differently: Apply 1 application to affected area as needed.) Multivitamin capsule Take 1 capsule by mouth once daily. No current facility-administered medications for this visit. ALLERGIES Allergen Reactions - Anti-Bacterial Jennifer* Rash - Bees Unknown Listed on records from [facility] - Benzalkonium Chlori* Other: See Comments Skin irritations - Doxycycline GI Upset stomach cramps - Dust Mites Unknown Dust mites and cockroaches - Flagyl [Metronidazo* Hives - Hand Loan Servicing Officer [Eth* Rash PT HAS SENSITIVE SKIN. O.K. FOR MEDICAL PROFESSIONAL TO USE HAND LAWN CARE SPECIALIST AND THEN TOUCH HER, BUT SHE HERSELF DOES NOT USE IT. - Iodine Rash - Lactose Intolerance* - [place] Anaphylaxis - Mold Unknown - Morphine Itching - Penicillin Unknown - Pet Dander [Other] Unknown Cat, Dog, Horse - Prednisone Other: See Comments Moodiness, restlessness, states feels like crap all over. - Seasonal Allergies Unknown Trees, grasses, weeds, ragweed. - Singulair [[place]* Unknown Possible rash - Sodium Lauryl Sulfa* Rash Skin irritation to scalp - Trees Other: See Comments - Zofran [Ondansetron* Other: See Comments Zofran causes cramping and constipation PAST SURGICAL HISTORY Procedure Laterality Date - COLONOSCOPY W/BX 03/02/11 - EGD W/O OR W/BRUSH/WASH 11/14/2012 EGD - MED INC ALL EX DRUG 11/2009 - PAST SURGICAL HISTORY OF WISDOM TEETH FAMILY HISTORY Problem Relation Age of Onset - Alcohol/Drug Mother - Arthritis Mother - Asthma Mother - Cancer Mother CANCER - Hypertension Mother - Stroke Mother - Cancer Father LUNG CANCER - Emphysema Father - Asthma Brother - Breast Cancer Maternal Aunt - Hypertension Brother Social History Marital status: Single Spouse name: Years of education: GED Number of children: 0 Occupational History Occupation Employer Comment Unemployed Social History Main Topics Smoking status: Current Every Day Smoker Packs/day: 0.00 Years: 3.00 Types: Cigarettes Last attempt to quit: 09/08/2015 Smokeless tobacco: Never Used Comment: 2 weeks no cigarettes Alcohol use: Yes Comment: Seldom Drug use: No Sexual activity: Yes Partners with: Male control/protection: None REVIEW OF SYSTEMS: CONSTITUTIONAL: No fevers, chills, nightsweats, unintended weight loss HEENT: Denies frequent or severe heaches, nasal congestion/sinus symptoms, problematic allergy problems. EYES: No diplopia or blurry vision. CARDIOVASCULAR: No chest pain, dyspnea, palpitations, orthopnea, PND, ankle edema. PULM: No dyspnea, unexplained cough. GI: No dysphagia/odynophagia, problematic reflux, constipation, diarrhea, changes in stool habits, hematochezia, melena. : No new urinary complaints, including dysuria, gross hematuria or pyuria. NEURO: No new balance problems, peripheral weakness/paresthesias or numbness of concern. MUSC-SKEL: No new joint pain, swelling, or erythema. PSY: No concerns regarding depression, anxiety or panic. INTEGUMENTARY: No new skin changes (rash, new or changing mole, new growth) Physical Exam: Constitutional: Pt is a well developed 37 year old female who is alert, oriented and cooperative Eyes: Following during examination. No redness or drainage. Respiratory: RR normal and nonlabored. Even breathing. No evidence of distress or shortness of breath. Psychology: Patient is engaged during conversation. Normal affect and mood. Does not appear depressed or anxious during encounter. Vascular: Dorsalis pedis and posterior tibial pulses palpable, b/l Capillary Fill time < 5 seconds to digits 1-5 b/l Skin temperature warm to warm proximal to distal b/l Hair growth present to digits Neurological: intact light touch/epicritic sensation intact protective sensation Dermatological: Nails 1-5 b/l appear Normal. Webspaces clean and dry 1-4 b/l. Skin appears well hydrated and supple. good color, texture, turgor. Callosities present to bilateral medial hallux. Open lesions absent. Musculoskeletal/Orthopaedic: Patient has pain to palpation of R 2nd and 3rd metatarsal shaft, L medial band plantar fascia Foot type is pronated structurally AJ ROM is full with knee extended and flexed 1st MPJ is full when loaded and no pain or crepitus are noted with ROM. MTJ, STJ are full and free of pain and crepitus. +5/5 muscle strength dorsiflexion, plantarflexion, inversion, eversion b/l Hypermobility of b/l 1st metatarsal cun joint. Moderate bunion is present b/l. ASSESSMENT: (M72.2) Plantar fasciitis of left foot (primary encounter diagnosis) Comment: Stretches, icing, rest, custom orthotics, oral steroid. Patient can use boot that she has at home if increased pain Plan: 1. stretches (L85.9) Hyperkeratosis Plan: 1. Hyperkeratotic lesion(s) to bilateral medial hallux debrided today utilizing sanding disc. (M20.11) Hallux valgus (acquired), right foot Comment: Discussed possible Pronation more than likely causing bunion which is causing hypermobility and overload to 2nd metatarsal shaft Plan: 1. Naproxen dispensed 2. Custom Orthotics 3. Offered boot but patient declined RTC 1 month for follow up The documentation for this note was completed by Ena Conn Ma acting as scribe for Yogi Amos DPM. February 21, 2018 1:26 PM. I agree with the Chief Complaint, ROS, and Past Histories independently gathered by the clinical biomedical equipment support specialist and the remaining scribed note accurately describes my personal service to the patient. AYE Reddy Ma 02/21/2018 1:47 PM Signed What is Plantar Fasciitis? Plantar fasciitis is the most common cause of heel pain. The pain is caused by inflammation of the plantar fascia. If you strain your plantar fascia, it becomes weak, swollen and irritated (inflamed). The resulting pain may be isolated in the heel or may appear at different points on the bottom of the foot, from time to time; it may occur in one foot or both. Some think that plantar fasciitis pain is caused by irritation of nerves from tissue swelling or inflammation, but it is debatable. Plantar fasciitis is common in middle-aged people; it also occurs in younger people who are on their feet a lot, such as athletes or soldiers. The plantar fascia is a strong band of connective tissue that extends from the base of the toes, along the bottom of the foot, to the bottom of the heel (calcaneous bone); it acts like a bowstring to maintain the arch of the foot. What are heel spurs? The inflammatory reaction of the heel bone may produce spike- like projections of new bone, called heel spurs. The spurs sometimes show on X-rays. They neither cause the initial pain nor do they cause the initial problem. However, later, having to walk on spurs may cause sharp pain. What causes plantar fasciitis? Plantar fasciitis is caused by straining the ligament that supports your arch. Repeated strain can cause tiny tears in the ligament. These lead to pain and swelling. During walking, the plantar fascia experiences tension up to twice the body weight with each step. While this is normal, those who spend much time on their feet, such as nurses, tomato pulper operator/waiters, and mail carriers, often experience plantar fasciitis. Athletes involved in tennis or other racquet sports, race walking, jogging or running also show a higher incidence of plantar fasciitis than do those participating in other activities. Thus, it's clear that plantar fasciitis is predominantly an overuse injury. In fact, any activity that results in prolonged tension and stress on the plantar fascia may cause plantar fasciitis. It is possible that changes in footwear may play a role in causing plantar fasciitis, no matter what activity is occurring. Those who are overweight are prone to plantar fasciitis. This is true even for sedentary people who get little physical activity. Abnormalities of the foot and ankle joints may predispose some individuals to development of plantar fasciitis (specifically, over pronation of the subtalar joint). Contributing Factors * Flat feet * Toe running, hill running * Sudden weight increase * High-arched, rigid feet * Soft terrain, e.g. running on sand * Obesity * Pronated feet (rolled inward) * Sudden increase in activity * Family tendency * Poor shoe support * Worn out or poorly fitted shoes * Increasing age * Walking, standing or running for long periods of time, especially on hard surfaces. How is the Injury Treated? Rest Your Feet: Limit, or if possible, stop activities that are causing your heel pain. Try to avoid running or walking on hard surfaces, such as concrete. Use pain as your guide. If your foot is too painful, rest it. Ice: Ice the sore area for 30 to 60 minutes, several times a day, to reduce inflammation and relieve pain. Apply a plastic bag of crushed ice (or a bag of frozen peas) over a towel. Ice the sore area for 15 minutes after activity/exercise. Application of heat is not generally recommended, as heat expands the bone and connective tissue, perhaps exerting greater pressure on nerves and thereby increasing pain. If heat is used, follow it with ice. Medication: If your condition developed recently, anti-inflammatory/analgesic medication, combined with heel pads (see below) may be all that is necessary to relieve pain and to reduce inflammation. If no pain relief has occurred after 2-3 weeks, however, your doctor may inject either cortisone or local anesthetic directly into the tender area. Exercises: Do simple exercises, such as calf stretches and towel stretches (see below) several times a day, especially when you first get up in the morning. These can help your ligament become more flexible and strengthen the muscles that support your arch. Shoes: Poorly fitting shoes can cause plantar fasciitis. The best type of shoe to wear is a good walking or running shoe with good shock absorption and excellent arch support. You should choose the one that fits the best. [place] with your athletic shoes to find a pair that is comfortable and causes fewer symptoms. Put your shoes on as soon as you get out of bed; going barefoot or wearing slippers may make your pain worse. Good brands include (but are not limited to): New Balance, Asics, Saucony, SAS and Merrel?s. Taping: Your doctor may tape your foot to maintain the arch. This takes some of the tension off the plantar fascia. Weight Loss: If your weight is putting extra stress on your feet, your doctor may encourage you to try a weight-loss program. Orthotics: An orthotic insole is a molded piece of rubber, plastic, or other material that you insert into your shoe. It corrects the alignment of your foot and cushions your foot from excessive pounding. These may be prescription or non-prescription. Prescription orthotics are custom-fitted and may fit better and control pain better, but are very expensive. Night Splints: A night splint holds the foot with the toes pointed up and the ankle at a 90-degree angle. This position applies a constant, gentle stretch to the plantar fascia. Corticosteroid Shots: Steroids may be injected into the tender area to reduce inflammation. REHAB Exercises to stretch the plantar fascia, the calf muscles, and the Achilles tendon. Tightness of the muscles of the calves may contribute to plantar fasciitis, so stretching the calf muscles is important to rehabilitation, as is stretching of the plantar fascia itself. Plantar fascial stretches Assisted Dorsiflexion/Plantar Fascia Stretch: Sit on the floor or ground, barefoot, with both legs outstretched. Use a towel or elastic band and wrap it around the ball (and not the toes) of the affected foot. Use the towel or elastic band to provide resistance to upward movement of the forefoot. Pull foot upward (toward your body) with the help of the elastic band or towel, and then return to the starting position. Ten repetitions are recommended. Perform the sequence at least three times a day. Alternate Plantar Fascia Stretch: Sit upright in a chair, barefoot. Place the ankle of the affected foot on your opposite knee. Using the same hand as the affected foot, reach across and grab the toes. Flex the ankle toward and pull the toes toward the norton. To test the stretch, place the thumb of your hand on the bottom of the foot. You should be able to feel the cord- like plantar fascia, running the length of the foot. Hold the stretch for a count of 10, then relax. Repeat 10 times. Do the sequence at least three times a day. Achilles/Calf Stretches Strengthening the muscles of the calves may contribute to successful rehabilitation of plantar fasciitis, as well as prevent reoccurrence. The exercises below will help strengthen the calf muscles. Calf and Achilles Tendon Stretch (Gastrocnemius Stretch): Face a wall, standing an arm's length away. Place one foot back. Place both hands on the wall. Bend the elbows and knee of your forward leg, keeping the heel of the backward foot on the floor and keeping your body straight (aligned), until your forehead nearly touches the wall, or until significant stretch is felt in the muscles of the calf of the backward leg. Hold this position for 10 to 15 seconds. Extend elbows (straighten your arms and stand upright again) and maintain this position for 10 seconds. Repeat this cycle 15 to 20 times. Switch legs and repeat the exercise. Referring Provider: SELF [200] Allergies As of Date: 02/21/2018 Noted Allergy Reaction ANTI-BACTERIAL CLEANSING (BENZETH*10/26/2012 2 - Rash BEES 07/16/2010 16 - Unknown Comments: Listed on records from [facility] BENZALKONIUM CHLORIDE 09/08/2012 14 - Other: See Comments Comments: Skin irritations DOXYCYCLINE 12/13/2012 8 - GI Upset Comments: stomach cramps DUST MITES 04/26/2012 16 - Unknown Comments: Dust mites and cockroaches FLAGYL (METRONIDAZOLE HCL) 06/20/2012 4 - Hives HAND LAWN CARE SPECIALIST (ETHYL ALCOHOL (SK*11/04/2009 2 - Rash Comments: PT HAS SENSITIVE SKIN. O.K. FOR MEDICAL PROFESSIONAL TO USE HAND LAWN CARE SPECIALIST AND THEN TOUCH HER, BUT SHE HERSELF DOES NOT USE IT. IODINE 02/18/2011 2 - Rash LACTOSE INTOLERANCE (LACTASE) 11/04/2009 SAUK-SUIATTLE 12/07/2017 10 - Anaphylaxis MOLD 04/26/2012 16 - Unknown MORPHINE 03/02/2011 9 - Itching PENICILLIN 06/18/2016 16 - Unknown pet dander [Other] 10/20/2011 16 - Unknown Comments: Cat, Dog, Horse PREDNISONE 08/26/2012 14 - Other: See Comments Comments: Moodiness, restlessness, states feels like crap all over. SEASONAL ALLERGIES 11/04/2009 16 - Unknown Comments: Trees, grasses, weeds, ragweed. SINGULAIR (MONTELUKAST) 12/07/2017 16 - Unknown Comments: Possible rash SODIUM LAURYL SULFATE 09/30/2010 2 - Rash Comments: Skin irritation to scalp TREES 05/11/2012 14 - Other: See Comments ZOFRAN (ONDANSETRON HCL (PF)) 03/02/2011 14 - Other: See Comments Comments: Zofran causes cramping and constipation Date Reviewed: 02/21/2018 Reviewed by: Ena Conn Ma - Fully Assessed Reason for Visit: Pain (foot) [760] Primary Visit Diagnosis:Plantar fasciitis of left foot [M72.2] Other Visit Diagnoses:Hyperkeratosis [L85.9] Hallux valgus (acquired), right foot [M20.11] Order(s):CONSULT TO ORTHOTIC/PROSTHETIC [19991008] Order #: [id number]: 1 naproxen (NAPROSYN) 500 mg tabletTake 1 tablet by mouth twice daily with meals. FOR PAIN. TAKE WITH FOOD.Disp: 30 tabletRfl: 0 Prescriptions as of 02/21/2018 Sig: NAPROXEN 500 MG TABLET Take 1 tablet by mouth twice * TERBINAFINE HCL 1 % TOPICAL C* Apply 1 application to affect* FOLIC ACID 400 MCG TABLET Take 400 mcg by mouth once da* BENZONATATE 100 MG CAPSULE Take 1 capsule by mouth every* ALBUTEROL SULFATE HFA 90 MCG/* Inhale 2 Puffs as instructed * VITAMIN D-3 ORAL Take by mouth. VITAMIN D3 2,000 UNIT CAPSULE BECLOMETHASONE DIPROPIONATE 8* Inhale 2 Puffs as instructed * FAMOTIDINE 20 MG TABLET Take 1 tablet by mouth at bed* NAPROXEN 500 MG TABLET Take 1 tablet by mouth twice * Patient taking differently: Take 250 mg by mouth twice da* KETOTIFEN 0.025 % (0.035 %) E* Use 1 Drop in both eyes twice* ESCITALOPRAM 20 MG TABLET Take 1 tablet by mouth once d* FLUTICASONE 50 MCG/ACTUATION * Use 2 Sprays in each nostril * LORATADINE 10 MG TABLET Take 1 tablet by mouth once d* PROBIOTIC BLEND ORAL Take by mouth. HYDROCORTISONE ACETATE 1 % TO* Apply 1 application to affect* Patient taking differently: Apply 1 application to affect* MULTIVITAMIN CAPSULE Take 1 capsule by mouth once * Medication notes this encounter FAMOTIDINE 20 MG TABLET >> Ena Conn Ma 02/21/2018 1:23 PM >> ENA CONN MA Feb 21, 2018 1:23 PM Not taking. Please d/c LORATADINE 10 MG TABLET >> Ena Conn Ma 02/21/2018 1:23 PM >> ENA CONN MA Feb 21, 2018 1:23 PM Not taking. Please d/c Problem List As Of Date 02/21/2018 Noted Resolved Frequency of urination [R35.0] INVALID FOR*10/20/2011 Pelvic pain in female [R10.2] INVALID FOR*10/20/2011 Microscopic hematuria [R31.29] INVALID FOR*09/15/2016 Other hammer toe (acquired) [M20.40] INVALID FOR*10/20/2011 Hallux valgus (acquired) [M20.10] INVALID FOR* Internal hemorrhoids without mention of complic*INVALID FOR*10/20/2011 Diarrhea [R19.7] INVALID FOR*10/20/2011 Abdominal pain, generalized [R10.84] INVALID FOR*10/20/2011 Low back pain [M54.5] INVALID FOR* Closed fracture of metatarsal bone(s) [S92.309A]INVALID FOR*09/15/2016 Tendonitis [M77.9] INVALID FOR*09/15/2016 Acne Vulgaris: Grade III Inflammatory and Comed*INVALID FOR*09/15/2016 Other seborrheic dermatitis [L21.8] INVALID FOR*09/15/2016 History of cold-induced urticaria [Z87.2] INVALID FOR* Seborrhea [L21.9] INVALID FOR*09/15/2016 Eczematous dermatitis [L30.9] INVALID FOR*09/15/2016 Xerosis cutis [L85.3] INVALID FOR*09/15/2016 Backache, unspecified [M54.9] INVALID FOR*09/15/2016 Asthma [J45.909] INVALID FOR* Attention-deficit hyperactivity disorder, predo*INVALID FOR* 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 Plantar fasciitis is the most common cause of heel pain. The pain is caused by inflammation of the plantar fascia. If you strain your plantar fascia, it becomes weak, swollen and irritated (inflamed). The resulting pain may be isolated in the heel or may appear at different points on the bottom of the foot, from time to time; it may occur in one foot or both. Some think that plantar fasciitis pain is caused by irritation of nerves from tissue swelling or inflammation, but it is debatable. Plantar fasciitis is common in middle-aged people; it also occurs in younger people who are on their feet a lot, such as athletes or soldiers. The plantar fascia is a strong band of connective tissue that extends from the base of the toes, along the bottom of the foot, to the bottom of the heel (calcaneous bone); it acts like a bowstring to maintain the arch of the foot. What are heel spurs? The inflammatory reaction of the heel bone may produce spike-like projections of new bone, called heel spurs. The spurs sometimes show on X-rays. They neither cause the initial pain nor do they cause the initial problem. However, later, having to walk on spurs may cause sharp pain. What causes plantar fasciitis? Plantar fasciitis is caused by straining the ligament that supports your arch. Repeated strain can cause tiny tears in the ligament. These lead to pain and swelling. During walking, the plantar fascia experiences tension up to twice the body weight with each step. While this is normal, those who spend much time on their feet, such as nurses, tomato pulper operator/waiters, and mail carriers, often experience plantar fasciitis. Athletes involved in tennis or other racquet sports, race walking, jogging or running also show a higher incidence of plantar fasciitis than do those participating in other activities. Thus, it's clear that plantar fasciitis is predominantly an overuse injury. In fact, any activity that results in prolonged tension and stress on the plantar fascia may cause plantar fasciitis. It is possible that changes in footwear may play a role in causing plantar fasciitis, no matter what activity is occurring. Those who are overweight are prone to plantar fasciitis. This is true even for sedentary people who get little physical activity. Abnormalities of the foot and ankle joints may predispose some individuals to development of plantar fasciitis (specifically, over pronation of the subtalar joint). Contributing Factors * Flat feet * Toe running, hill running * Sudden weight increase * High-arched, rigid feet * Soft terrain, e.g. running on sand * Obesity * Pronated feet (rolled inward) * Sudden increase in activity * Family tendency * Poor shoe support * Worn out or poorly fitted shoes * Increasing age * Walking, standing or running for long periods of time, especially on hard surfaces. How is the Injury Treated? Rest Your Feet: Limit, or if possible, stop activities that are causing your heel pain. Try to avoid running or walking on hard surfaces, such as concrete. Use pain as your guide. If your foot is too painful, rest it. Ice: Ice the sore area for 30 to 60 minutes, several times a day, to reduce inflammation and relieve pain. Apply a plastic bag of crushed ice (or a bag of frozen peas) over a towel. Ice the sore area for 15 minutes after activity/exercise. Application of heat is not generally recommended, as heat expands the bone and connective tissue, perhaps exerting greater pressure on nerves and thereby increasing pain. If heat is used, follow it with ice. Medication: If your condition developed recently, anti-inflammatory/analgesic medication, combined with heel pads (see below) may be all that is necessary to relieve pain and to reduce inflammation. If no pain relief has occurred after 2-3 weeks, however, your doctor may inject either cortisone or local anesthetic directly into the tender area. Exercises: Do simple exercises, such as calf stretches and towel stretches (see below) several times a day, especially when you first get up in the morning. These can help your ligament become more flexible and strengthen the muscles that support your arch. Shoes: Poorly fitting shoes can cause plantar fasciitis. The best type of shoe to wear is a good walking or running shoe with good shock absorption and excellent arch support. You should choose the one that fits the best. [place] with your athletic shoes to find a pair that is comfortable and causes fewer symptoms. Put your shoes on as soon as you get out of bed; going barefoot or wearing slippers may make your pain worse. Good brands include (but are not limited to): New Balance, Asics, Saucony, SAS and Merrel?s. Taping: Your doctor may tape your foot to maintain the arch. This takes some of the tension off the plantar fascia. Weight Loss: If your weight is putting extra stress on your feet, your doctor may encourage you to try a weight-loss program. Orthotics: An orthotic insole is a molded piece of rubber, plastic, or other material that you insert into your shoe. It corrects the alignment of your foot and cushions your foot from excessive pounding. These may be prescription or non-prescription. Prescription orthotics are custom-fitted and may fit better and control pain better, but are very expensive. Night Splints: A night splint holds the foot with the toes pointed up and the ankle at a 90-degree angle. This position applies a constant, gentle stretch to the plantar fascia. Corticosteroid Shots: Steroids may be injected into the tender area to reduce inflammation. REHAB Exercises to stretch the plantar fascia, the calf muscles, and the Achilles tendon. Tightness of the muscles of the calves may contribute to plantar fasciitis, so stretching the calf muscles is important to rehabilitation, as is stretching of the plantar fascia itself. Plantar fascial stretches Assisted Dorsiflexion/Plantar Fascia Stretch: Sit on the floor or ground, barefoot, with both legs outstretched. Use a towel or elastic band and wrap it around the ball (and not the toes) of the affected foot. Use the towel or elastic band to provide resistance to upward movement of the forefoot. Pull foot upward (toward your body) with the help of the elastic band or towel, and then return to the starting position. Ten repetitions are recommended. Perform the sequence at least three times a day. Alternate Plantar Fascia Stretch: Sit upright in a chair, barefoot. Place the ankle of the affected foot on your opposite knee. Using the same hand as the affected foot, reach across and grab the toes. Flex the ankle toward and pull the toes toward the norton. To test the stretch, place the thumb of your hand on the bottom of the foot. You should be able to feel the cord-like plantar fascia, running the length of the foot. Hold the stretch for a count of 10, then relax. Repeat 10 times. Do the sequence at least three times a day. Achilles/Calf Stretches Strengthening the muscles of the calves may contribute to successful rehabilitation of plantar fasciitis, as well as prevent reoccurrence. The exercises below will help strengthen the calf muscles. Calf and Achilles Tendon Stretch (Gastrocnemius Stretch): Face a wall, standing an arm's length away. Place one foot back. Place both hands on the wall. Bend the elbows and knee of your forward leg, keeping the heel of the backward foot on the floor and keeping your body straight (aligned), until your forehead nearly touches the wall, or until significant stretch is felt in the muscles of the calf of the backward leg. Hold this position for 10 to 15 seconds. Extend elbows (straighten your arms and stand upright again) and maintain this position for 10 seconds. Repeat this cycle 15 to 20 times. Switch legs and repeat the exercise. Prescriptions ordered this encounter Disp Refills Start End NAPROXEN 500 MG TABLET 30 t* 0 02/21/2018 Route: ORAL Sig: Take 1 tablet by mouth twice daily with meals. FOR PAIN. TAKE WITH FOOD. Disposition: Return in about 1 month (around 03/23/2018) for follow up. Follow-up and Disposition History Recorded Encounter Status:Closed by YOGI AMOS DPM on 02/21/18 12 LEAD ELECTROCARDIOGRAM Observed: 02/20/2018 Status: F Source: [place] 8:38 AM [facility] [place] REPOSITORY [facility] Cardiovascular Services [address] [place] [address] 12 Lead EKG 02/03/18 1702 MR#: [id number] Acct: [id number] Name: ANGELICA ANDUJAR Rep #: [id number] : 1980 37 From: Stephan Bello MD Attending Dr: Status: DEP ER Ordering Dr: Juana Christopher MD Date: 02/03/18 Location: ED Sex: F C Admitted: Test Reason : DIZZINESS Blood Pressure : / mmHG Vent. Rate : 076 BPM Atrial Rate : 076 BPM P-R Int : 156 ms QRS Dur : 084 ms QT Int : 386 ms P-R-T Axes : 059 022 004 degrees QTc Int : 434 ms Normal sinus rhythm with sinus arrhythmia Normal ECG Confirmed by STEPHAN BELLO ([id number]), editor & co founder МАРИНА BRAR ([id number]) on 02/13/2018 6:13:20 PM Referred By: SHWETA Confirmed By:STEPHAN BELLO 02/13/18 1813 Date Stephan Bello MD CC: Juana Christopher MD; Mallorie DE LA TORRE Signed 12 LEAD ELECTROCARDIOGRAM Observed: 02/20/2018 Status: F Source: [place] 8:36 AM [facility] [place] REPOSITORY [facility] Cardiovascular Services [address] [place] [id number] 12 Lead EKG 02/01/18 1843 MR#: [id number] Acct: [id number] Name: ANGELICA ANDUJAR Rep #: [id number] : 1980 37 From: Stephan Bello MD Attending Dr: Status: DEP ER Ordering Dr: Stephan Witt MD Date: 02/01/18 Location: ED Sex: F C Admitted: Test Reason : SOB Blood Pressure : / mmHG Vent. Rate : 074 BPM Atrial Rate : 074 BPM P-R Int : 150 ms QRS Dur : 084 ms QT Int : 392 ms P-R-T Axes : 058 033 015 degrees QTc Int : 435 ms Normal sinus rhythm Normal ECG Confirmed by STEPHAN BELLO ([id number]), editor & co founder МАРИНА BRAR ([id number]) on 02/13/2018 5:34:34 PM Referred By: STEPHANIE Confirmed By:STEPHAN BELLO 02/13/18 9953 Date Stephan Bello MD CC: Stephan Witt MD; Mallorie DE LA TORRE Signed CNCO Observed: 02/15/2018 Status: COMPLETED Source: [place] 4:21 PM [facility] [place] REPOSITORY HNO ID: [id number] Author: Mammography Coordinator Service: (none) Author Type: Physician Type: Letter Filed: 02/16/2018 11:32 PM Note Text: February 15, 2018 PID: [id number] Angelica Andujar [address] [facility] [address] [place] [address] Dear Ms. Andujar, We are pleased to inform you that the results of your recent breast imaging exam on 02/15/2018 are normal. Early detection of cancer is very important. We also understand recommendations regarding breast cancer screening are controversial. Please discuss with your primary care provider which strategy is best for you and whether a mammogram is right for you. Your imaging studies and report will be kept on file at [facility] as part of your permanent medical record and are available for your continuing care. Thank you for allowing us to help in meeting your health care needs. Sincerely, Dr. Wakefield Interpreting Radiologist [facility] (Normal over 40) [facility] SCREENING Observed: 02/15/2018 Status: F Source: [place] 3:33 PM [facility] REPOSITORY * * *Final Report* * * DATE OF EXAM: Feb 15 2018 3:33PM [facility] 0581 - [facility] SCREENING / PROCEDURE REASON: Encounter for screening mammogram for malignant neoplasm of breast * * * * Physician Interpretation * * * * RESULT: #[id number] - [facility] SCREENING BILATERAL DIGITAL SCREENING MAMMOGRAM WITH CAD: 02/15/2018 HISTORY: Encounter For Screening Mammogram For Malignant Neoplasm Of Breast\ /patient reports no breast symptoms / NEW baseline mammogram. RESULT: TECHNIQUE: The study was acquired using full field digital technology and interpreted from soft copy. Current study was also evaluated with a Computer Aided Detection (CAD). This is the patient's baseline examination. There are scattered fibroglandular elements in both breasts. No significant masses, calcifications, or other findings are seen in either breast. IMPRESSION: NEGATIVE There is no mammographic evidence of malignancy.A 1 year screening mammogram is recommended. Monae Wakefield M.D., ch/sindhu:02/15/2018 16:21:31 Pulverizer Feeder: Jessa CHAN (R)(Marifer), [facility] letter sent: Normal over 40 Mammogram BI-RADS: 1 Negative Vault Mechanic: Sindhu Transcribe Date/Time: Feb 15 2018 3:34P Dictated by: MONAE WAKEFIELD MD This examination was interpreted and the report reviewed and electronically signed by: MONAE WAKEFIELD MD on Feb 15 2018 4:21PM EST [id number] GC/CHLAMYDIA AMPLIF Collected: 02/10/2018 Status: F Source: [place] 3:30 PM [facility] REPOSITORY TYPE CODE TESTS RESULT OUT OF REFERENCE UNITS RANGE LAB GCCTSR GC/Chlam Amp [facility] Source LAB GCAMPL GC Negative Amplification for Neisseria gonorrhoeae by amplification. LAB CLAMPL Chlamydia Negative Amplif for Chlamydia trachomatis by amplification. Performed By: #### GCCT #### [facility] [address] [place], [place] [address] CNOV Observed: 02/10/2018 Status: COMPLETED Source: [place] 3:00 PM [facility] REPOSITORY Office Visit (WOOB) ANGELICA ANDUJAR ([id number]) 1980 F Date Time Provider Department 02/10/18 3:00 PM PEDRO LUIS MOSER WOOB During your visit today, we recorded the following information about you: Blood pressure Weight Last Period 116/74 88.9 kg 01/30/18 Pedro Luis Moser MD 02/10/2018 4:51 PM Signed Angelica Andujar is a 37 year old female who presents for vaginal discharge for 2 days. Some discomfort at vulva, sharp pain in vagina, intermittent. She has had unprotected sex with 3 partners in the past year. She denies any known contact with sexually transmitted diseases. She denies any using any contraception other than the pullout method . She has not used any vaginal medications. She's had regular periods but her last one was only 2 days and was public bath attendant than what she usually experiences. Vaginal discharge: moderate amount, clear and mucous. Itching: No Dyspareunia: No Fever/chills: No Abdominal pain: No Bladder: Negative for dysuria or frequency Bowel: No blood in stool, pain with BM, tarry stool, persistent diarrhea or constipation Any new sexual partners or concern for STD exposure: Yes: Any history of STDs: HSV Does your partner have any new complaints: No Are you currently taking any medications to treat vaginitis: No Do you use feminine sprays, douches or deodorants: No Menstrual cycle: Regular Contraception: none Last pap: 2012, normal Past medical, surgical, social history, medications and allergies reviewed and updated. OBJECTIVE: BP 116/74 Wt 196 lb (88.9kg) LMP 01/30/2018 GENERAL: Well developed, well nourished in no apparent distress ABDOMEN: soft, non-tender and no masses PELVIC: external genitalia normal, normal Bartholin's glands, urethra, Zoar's glands, no vulvar lesions, no cervical lesions, good vaginal support, physiologic discharge present, normal appearing perineal body and perianal region BIMANUAL: uterus normal size, shape and consistency, no adnexal masses and non-tender. RECTOVAGINAL: deferred. Wet prep/JAYASHREE: ASSESSMENT/PLAN: normal physiological vaginal discharge, reassured vaginal pain, uncertain etiology check pelvic US declines other STI testing HCG neg, reassured, some menses may be public bath attendant than others Office Visit on 02/10/18 -RAPID TRICH B/O -RAPID BV B/O -GC/CHLAMYDIA DNA DET -HCG QUAL UR B/O -BACTERIAL VAGINOSIS SCORED GRAM STAIN *Canceled* -VAGINAL SMEAR FOR MISTY *Canceled* -TRICHOMONAS PREP *Canceled* -PELVIC US [facility] STD screening: Declined STD check. Any new medications given to the patient have been explained as to directions, reasons for prescribing and side effects. Perineal hygeine and safe sex were discussed with the patient. Pedro Luis Moser MD Referring Provider: SELF [[id number]] Allergies As of Date: 02/10/2018 Noted Allergy Reaction ANTI-BACTERIAL CLEANSING (BENZETH*10/26/2012 2 - Rash BEES 07/16/2010 16 - Unknown Comments: Listed on records from Samantha Hood BENZALKONIUM CHLORIDE 09/08/2012 14 - Other: See Comments Comments: Skin irritations DOXYCYCLINE 12/13/2012 8 - GI Upset Comments: stomach cramps DUST MITES 04/26/2012 16 - Unknown Comments: Dust mites and cockroaches DELETED: FLAGYL (METRONIDAZOLE HC*06/20/2012 4 - Hives HAND LAWN CARE SPECIALIST (ETHYL ALCOHOL (SK*11/04/2009 2 - Rash Comments: PT HAS SENSITIVE SKIN. O.K. FOR MEDICAL PROFESSIONAL TO USE HAND LAWN CARE SPECIALIST AND THEN TOUCH HER, BUT SHE HERSELF DOES NOT USE IT. IODINE 02/18/2011 2 - Rash LACTOSE INTOLERANCE (LACTASE) 11/04/2009 SAUK-SUIATTLE 12/07/2017 10 - Anaphylaxis MOLD 04/26/2012 16 - Unknown MORPHINE 03/02/2011 9 - Itching PENICILLIN 06/18/2016 16 - Unknown pet dander [Other] 10/20/2011 16 - Unknown Comments: Cat, Dog, Horse PREDNISONE 08/26/2012 14 - Other: See Comments Comments: Moodiness, restlessness, states feels like crap all over. SEASONAL ALLERGIES 11/04/2009 16 - Unknown Comments: Trees, grasses, weeds, ragweed. SINGULAIR (MONTELUKAST) 12/07/2017 16 - Unknown Comments: Possible rash SODIUM LAURYL SULFATE 09/30/2010 2 - Rash Comments: Skin irritation to scalp TREES 05/11/2012 14 - Other: See Comments ZOFRAN (ONDANSETRON HCL (PF)) 03/02/2011 14 - Other: See Comments Comments: Zofran causes cramping and constipation Date Reviewed: 02/10/2018 Reviewed by: Pedro Luis Moser - Fully Assessed Reason for Visit: vaginal irritation [Other] Cmt: internal and external- onset 2 days ago Primary Visit Diagnosis:Vaginal irritation [N89.8] Other Visit Diagnoses:Vaginal discharge [N89.8] Screen for STD (sexually transmitted disease) [Z11.3] Irregular menstrual cycle [N92.6] Pelvic cramping [R10.2] Order(s):RAPID TRICH B/O [6375075] Order #: [id number] RAPID BV B/O [0618881] Order #: [id number] GC/CHLAMYDIA DNA DET [SQGCCAMP] Order #: [id number]. #:[id number] HCG QUAL UR B/O [[id number]] Order #: [id number] PELVIC US [facility] [1485694] Order #: [id number]. #:[id number]: 1 Prescriptions as of 02/10/2018 Sig: TERBINAFINE HCL 1 % TOPICAL C* Apply 1 application to affect* FOLIC ACID 400 MCG TABLET Take 400 mcg by mouth once da* BENZONATATE 100 MG CAPSULE Take 1 capsule by mouth every* Patient not taking: Reported on 03/16/2018 ALBUTEROL SULFATE HFA 90 MCG/* Inhale 2 Puffs as instructed * VITAMIN D-3 ORAL Take by mouth. VITAMIN D3 2,000 UNIT CAPSULE BECLOMETHASONE DIPROPIONATE 8* Inhale 2 Puffs as instructed * FAMOTIDINE 20 MG TABLET Take 1 tablet by mouth at bed* NAPROXEN 500 MG TABLET Take 1 tablet by mouth twice * Patient not taking: Reported on 04/08/2018 KETOTIFEN 0.025 % (0.035 %) E* Use 1 Drop in both eyes twice* Patient not taking: Reported on 04/08/2018 ESCITALOPRAM 20 MG TABLET Take 1 tablet by mouth once d* Patient not taking: Reported on 03/16/2018 FLUTICASONE 50 MCG/ACTUATION * Use 2 Sprays in each nostril * LORATADINE 10 MG TABLET Take 1 tablet by mouth once d* X PROBIOTIC BLEND ORAL Take by mouth. HYDROCORTISONE ACETATE 1 % TO* Apply 1 application to affect* Patient not taking: Reported on 04/11/2018 MULTIVITAMIN CAPSULE Take 1 capsule by mouth once * Problem List As Of Date 02/10/2018 Noted Resolved Frequency of urination [R35.0] INVALID FOR*10/20/2011 Pelvic pain in female [R10.2] INVALID FOR*10/20/2011 Microscopic hematuria [R31.29] INVALID FOR*09/15/2016 Other hammer toe (acquired) [M20.40] INVALID FOR*10/20/2011 Hallux valgus (acquired) [M20.10] INVALID FOR* Internal hemorrhoids without mention of complic*INVALID FOR*10/20/2011 Diarrhea [R19.7] INVALID FOR*10/20/2011 Abdominal pain, generalized [R10.84] INVALID FOR*10/20/2011 Low back pain [M54.5] INVALID FOR* Closed fracture of metatarsal bone(s) [S92.309A]INVALID FOR*09/15/2016 Tendonitis [M77.9] INVALID FOR*09/15/2016 Acne Vulgaris: Grade III Inflammatory and Comed*INVALID FOR*09/15/2016 Other seborrheic dermatitis [L21.8] INVALID FOR*09/15/2016 History of cold-induced urticaria [Z87.2] INVALID FOR* Seborrhea [L21.9] INVALID FOR*09/15/2016 Eczematous dermatitis [L30.9] INVALID FOR*09/15/2016 Xerosis cutis [L85.3] INVALID FOR*09/15/2016 Backache, unspecified [M54.9] INVALID FOR*09/15/2016 Asthma [J45.909] INVALID FOR* Attention-deficit hyperactivity disorder, predo*INVALID FOR* Pain disorder with psychological component [F45*INVALID FOR* Adjustment disorder with mixed anxiety and depr*INVALID FOR* Chronic midline low back pain without sciatica *INVALID FOR* Cervicalgia [M54.2] INVALID FOR* Degeneration of cervical intervertebral disc [M*INVALID FOR* Allergic rhinitis [J30.9] INVALID FOR* Encounter Status:Closed by PEDRO LUIS MOSER MD on 02/10/18 PROGRESS Observed: 02/10/2018 Status: COMPLETED Source: [place] 2:55 PM [facility] [place] REPOSITORY HNO ID: [id number] Author: Pedro Luis Moser Service: (none) Author Type: Physician Type: Progress Notes Filed: 02/10/2018 4:51 PM Note Text: Angelica Andujar is a 37 year old female who presents for vaginal discharge for 2 days. Some discomfort at vulva, sharp pain in vagina, intermittent. She has had unprotected sex with 3 partners in the past year. She denies any known contact with sexually transmitted diseases. She denies any using any contraception other than the pullout method . She has not used any vaginal medications. She's had regular periods but her last one was only 2 days and was public bath attendant than what she usually experiences. Vaginal discharge: moderate amount, clear and mucous. Itching: No Dyspareunia: No Fever/chills: No Abdominal pain: No Bladder: Negative for dysuria or frequency Bowel: No blood in stool, pain with BM, tarry stool, persistent diarrhea or constipation Any new sexual partners or concern for STD exposure: Yes: Any history of STDs: HSV Does your partner have any new complaints: No Are you currently taking any medications to treat vaginitis: No Do you use feminine sprays, douches or deodorants: No Menstrual cycle: Regular Contraception: none Last pap: 2013, normal Past medical, surgical, social history, medications and allergies reviewed and updated. OBJECTIVE: BP 116/74 Wt 196 lb (88.9kg) LMP 01/30/2018 GENERAL: Well developed, well nourished in no apparent distress ABDOMEN: soft, non-tender and no masses PELVIC: external genitalia normal, normal Bartholin's glands, urethra, Zoar's glands, no vulvar lesions, no cervical lesions, good vaginal support, physiologic discharge present, normal appearing perineal body and perianal region BIMANUAL: uterus normal size, shape and consistency, no adnexal masses and non-tender. RECTOVAGINAL: deferred. Wet prep/JAYASHREE: ASSESSMENT/PLAN: normal physiological vaginal discharge, reassured vaginal pain, uncertain etiology check pelvic US declines other STI testing HCG neg, reassured, some menses may be public bath attendant than others Office Visit on 02/10/18 -RAPID TRICH B/O -RAPID BV B/O -GC/CHLAMYDIA DNA DET -HCG QUAL UR B/O -BACTERIAL VAGINOSIS SCORED GRAM STAIN *Canceled* -VAGINAL SMEAR FOR MISTY *Canceled* -TRICHOMONAS PREP *Canceled* -PELVIC US [facility] STD screening: Declined STD check. Any new medications given to the patient have been explained as to directions, reasons for prescribing and side effects. Perineal hygeine and safe sex were discussed with the patient. Pedro Luis Moser MD PROGRESS Observed: 02/09/2018 Status: COMPLETED Source: [place] 5:07 PM [facility] REPOSIT[facility] HNO ID: [id number] Author: Shruthi Rodrigues Service: (none) Author Type: Nurse Practitioner Type: Progress Notes Filed: 02/09/2018 5:56 PM Note Text: Subjective HPI HPI Angelica Andujar is a 37 year old female who presents today for CC of rash on buttocks. This started 2 days ago. Has tried nothing. Symptoms are worsened by nohting. Risk factors none known, never had this before. Patient states she ran razor over top of lesion, possibly 2 times. -denies cold symptoms/malaise. Had chicken pox as a child. -person close to patient has ringworm on her leg currently .Patient presents with: Rash: burning and itching, right side buttocks x 2 days PAST MEDICAL HISTORY Diagnosis Date - 11/2009 - Anxiety - Asthma - Depression - Recurrent UTI - Seasonal allergies - STD (sexually transmitted disease) PAST SURGICAL HISTORY Procedure Laterality Date - COLONOSCOPY W/BX 03/02/11 - EGD W/O OR W/BRUSH/WASH 11/14/2012 EGD - MED INC ALL EX DRUG 11/2009 - PAST SURGICAL HISTORY OF WISDOM TEETH ALLERGIES Anti-Bacterial Cleansing [Benzethonium Chloride]; Bees; Benzalkonium Chloride; Doxycycline; Dust Mites; Flagyl [Metronidazole Hcl]; Hand Loan Servicing Officer [Ethyl Alcohol (Skin Cleanser)]; Iodine; Lactose Intolerance [Lactase]; Nisqually; Mold; Morphine; Penicillin; Pet Dander [Other]; Prednisone; Seasonal Allergies; Singulair [Montelukast]; Sodium Lauryl Sulfate; Trees; Zofran [Ondansetron Hcl (Pf)] MEDICATIONS folic acid 400 mcg tablet Take 400 mcg by mouth once daily. benzonatate (TESSALON PERLE) 100 mg capsule Take 1 capsule by mouth every 8 hours as needed for Cough. albuterol HFA (PROAIR HFA) 90 mcg/actuation inhaler Inhale 2 Puffs as instructed every 4 hours as needed for Wheezing/Shortness of Breath. CALCIUM CARBONATE/VITAMIN D3 (VITAMIN D-3 ORAL) Take by mouth. VITAMIN D-3 2,000 unit cap beclomethasone (QVAR) 80 mcg/actuation inhaler Inhale 2 Puffs as instructed twice daily. famotidine (PEPCID) 20 mg tablet Take 1 tablet by mouth at bedtime as needed. naproxen (NAPROSYN) 500 mg tablet Take 1 tablet by mouth twice daily as needed (for pain/inflammation). Take with food. ketotifen fumarate (ZADITOR) 0.025 % (0.035 %) ophthalmic solution Use 1 Drop in both eyes twice daily. As needed. escitalopram oxalate (LEXAPRO) 20 mg tablet Take 1 tablet by mouth once daily. fluticasone (FLONASE) 50 mcg/actuation nasal spray Use 2 Sprays in each nostril once daily. loratadine (CLARITIN) 10 mg tablet Take 1 tablet by mouth once daily. L.ACID/L.CASEI/B.BIF/B.FLOR/FOS (PROBIOTIC BLEND ORAL) Take by mouth. Hydrocortisone Acetate 1 % crea Apply 1 application to affected area twice daily. Multivitamin capsule Take 1 capsule by mouth once daily. FAMILY HISTORY Problem Relation Age of Onset - Alcohol/Drug Mother - Arthritis Mother - Asthma Mother - Cancer Mother CANCER - Hypertension Mother - Stroke Mother - Cancer Father LUNG CANCER - Emphysema Father - Asthma Brother - Breast Cancer Maternal Aunt - Hypertension Brother Social History Substance Use Topics - Smoking status: Current Every Day Smoker Years: 3.00 Types: Cigarettes Last attempt to quit: 09/08/2015 - Smokeless tobacco: Never Used Comment: 2 weeks no cigarettes - Alcohol use Yes Comment: Seldom ROS Objective Blood pressure 104/70, pulse 88, temperature 36.6 ?C (97.9 ?F), temperature source Tympanic, resp. rate 18, weight 88.8 kg (195 lb 12.8 oz). Physical Exam Constitutional: She is oriented to person, place, and time and well-developed, well-nourished, and in no distress. Non-toxic appearance. She does not have a sickly appearance. No distress. HENT: Head: Normocephalic and atraumatic. Cardiovascular: Normal rate, regular rhythm, S1 normal, S2 normal and normal heart sounds. Pulmonary/Chest: Effort normal and breath sounds normal. Musculoskeletal: Legs: Neurological: She is alert and oriented to person, place, and time. Gait normal. Skin: She is not diaphoretic. ASSESSMENT/PLAN: 1. Ringworm of body - ICD9: 110.5, ICD10: B35.4 -not classic presentation, but given patient manipulation with razor will treat as tinea -do not shave this area until healed. - Treat with Lamisil twice a day until rash resolves and then another week - Keep area of concern very dry. Ok to use OTC antifungal powder if area is moist - Follow up with PCP if symptoms persist or do not improved after 4-6 weeks of treatment. - TERBINAFINE HCL 1 % TOPICAL CREAM Prescription instructions reviewed with patient as applicable. Patient advised if symptoms do not improve or if symptoms worsen sooner, to contact the office for further evaluation by their primary care physician. Potential red flag symptoms discussed with the patient. Reviewed appropriate action plan to take if red flag symptoms occur. Patient agreeable to treatment plan. Shruthi Rodrigues APRN.CNP CNOV Observed: 02/09/2018 Status: COMPLETED Source: [place] 5:00 PM [facility] REPOSITORY Office Visit (WSTR) ANGELICA ANDUJAR ([id number]) 1980 F Date Time Provider Department 02/09/18 5:00 PM SHRUTHI RODRIGUES (JOSE ROBERTO) [facility] During your visit today, we recorded the following information about you: Temperature Pulse Respiration Blood pressure 97.9 degrees 88/minute 18/minute 104/70 Weight 88.8 kg Shruthi Rodrigues APRN.CNP 02/09/2018 5:56 PM Signed Subjective HPI HPI Angelica Andujar is a 37 year old female who presents today for CC of rash on buttocks. This started 2 days ago. Has tried nothing. Symptoms are worsened by nohting. Risk factors none known, never had this before. Patient states she ran razor over top of lesion, possibly 2 times. -denies cold symptoms/malaise. Had chicken pox as a child. -person close to patient has ringworm on her leg currently .Patient presents with: Rash: burning and itching, right side buttocks x 2 days PAST MEDICAL HISTORY Diagnosis Date - 11/2009 - Anxiety - Asthma - Depression - Recurrent UTI - Seasonal allergies - STD (sexually transmitted disease) PAST SURGICAL HISTORY Procedure Laterality Date - COLONOSCOPY W/BX 03/02/11 - EGD W/O OR W/BRUSH/WASH 11/14/2012 EGD - MED INC ALL EX DRUG 11/2009 - PAST SURGICAL HISTORY OF WISDOM TEETH ALLERGIES Anti-Bacterial Cleansing [Benzethonium Chloride]; Bees; Benzalkonium Chloride; Doxycycline; Dust Mites; Flagyl [Metronidazole Hcl]; Hand Loan Servicing Officer [Ethyl Alcohol (Skin Cleanser)]; Iodine; Lactose Intolerance [Lactase]; Nisqually; Mold; Morphine; Penicillin; Pet Dander [Other]; Prednisone; Seasonal Allergies; Singulair [Montelukast]; Sodium Lauryl Sulfate; Trees; Zofran [Ondansetron Hcl (Pf)] MEDICATIONS folic acid 400 mcg tablet Take 400 mcg by mouth once daily. benzonatate (TESSALON PERLE) 100 mg capsule Take 1 capsule by mouth every 8 hours as needed for Cough. albuterol HFA (PROAIR HFA) 90 mcg/actuation inhaler Inhale 2 Puffs as instructed every 4 hours as needed for Wheezing/Shortness of Breath. CALCIUM CARBONATE/VITAMIN D3 (VITAMIN D-3 ORAL) Take by mouth. VITAMIN D-3 2,000 unit cap beclomethasone (QVAR) 80 mcg/actuation inhaler Inhale 2 Puffs as instructed twice daily. famotidine (PEPCID) 20 mg tablet Take 1 tablet by mouth at bedtime as needed. naproxen (NAPROSYN) 500 mg tablet Take 1 tablet by mouth twice daily as needed (for pain/inflammation). Take with food. ketotifen fumarate (ZADITOR) 0.025 % (0.035 %) ophthalmic solution Use 1 Drop in both eyes twice daily. As needed. escitalopram oxalate (LEXAPRO) 20 mg tablet Take 1 tablet by mouth once daily. fluticasone (FLONASE) 50 mcg/actuation nasal spray Use 2 Sprays in each nostril once daily. loratadine (CLARITIN) 10 mg tablet Take 1 tablet by mouth once daily. L.ACID/L.CASEI/B.BIF/B.FLOR/FOS (PROBIOTIC BLEND ORAL) Take by mouth. Hydrocortisone Acetate 1 % crea Apply 1 application to affected area twice daily. Multivitamin capsule Take 1 capsule by mouth once daily. FAMILY HISTORY Problem Relation Age of Onset - Alcohol/Drug Mother - Arthritis Mother - Asthma Mother - Cancer Mother CANCER - Hypertension Mother - Stroke Mother - Cancer Father LUNG CANCER - Emphysema Father - Asthma Brother - Breast Cancer Maternal Aunt - Hypertension Brother Social History Substance Use Topics - Smoking status: Current Every Day Smoker Years: 3.00 Types: Cigarettes Last attempt to quit: 09/08/2015 - Smokeless tobacco: Never Used Comment: 2 weeks no cigarettes - Alcohol use Yes Comment: Seldom ROS Objective Blood pressure 104/70, pulse 88, temperature 36.6 ?C (97.9 ?F), temperature source Tympanic, resp. rate 18, weight 88.8 kg (195 lb 12.8 oz). Physical Exam Constitutional: She is oriented to person, place, and time and well-developed, well-nourished, and in no distress. Non-toxic appearance. She does not have a sickly appearance. No distress. HENT: Head: Normocephalic and atraumatic. Cardiovascular: Normal rate, regular rhythm, S1 normal, S2 normal and normal heart sounds. Pulmonary/Chest: Effort normal and breath sounds normal. Musculoskeletal: Legs: Neurological: She is alert and oriented to person, place, and time. Gait normal. Skin: She is not diaphoretic. ASSESSMENT/PLAN: 1. Ringworm of body - ICD9: 110.5, ICD10: B35.4 -not classic presentation, but given patient manipulation with razor will treat as tinea -do not shave this area until healed. - Treat with Lamisil twice a day until rash resolves and then another week - Keep area of concern very dry. Ok to use OTC antifungal powder if area is moist - Follow up with PCP if symptoms persist or do not improved after 4-6 weeks of treatment. - TERBINAFINE HCL 1 % TOPICAL CREAM Prescription instructions reviewed with patient as applicable. Patient advised if symptoms do not improve or if symptoms worsen sooner, to contact the office for further evaluation by their primary care physician. Potential red flag symptoms discussed with the patient. Reviewed appropriate action plan to take if red flag symptoms occur. Patient agreeable to treatment plan. Shruthi Rodrigues APRN.JOSE ROBERTO Elias LPN 02/09/2018 5:18 PM Signed I was present for the physical examination of this patient with provider.Azra Rodrigues APRN.JOSE ROBERTO 02/09/2018 5:21 PM Signed TINEA CORPORIS (RINGWORM): Your exam shows you have ringworm, a common fungal infection seen frequently in children. This condition causes scaly red rings to form on the skin. It is often transferred to people from puppies and kittens. While it can be transferred between children, once treatment is begun your child does not need to miss school. Use Lotrimin or Micatin lotion or cream two times daily, and continue to treat for at least two weeks after the ringworm appears to be gone. Ringworm of the scalp is the most common cause of patchy hair loss in children; it often requires treatment with an oral medicine such as griseofulvin, Nizoral, Sporonox, Lamisil, or Diflucan. See your doctor for follow- up care as recommended. Referring Provider: SELF [[id number]] Allergies As of Date: 02/09/2018 Noted Allergy Reaction ANTI-BACTERIAL CLEANSING (BENZETH*10/26/2012 2 - Rash BEES 07/16/2010 16 - Unknown Comments: Listed on records from Samantha Hood BENZALKONIUM CHLORIDE 09/08/2012 14 - Other: See Comments Comments: Skin irritations DOXYCYCLINE 12/13/2012 8 - GI Upset Comments: stomach cramps DUST MITES 04/26/2012 16 - Unknown Comments: Dust mites and cockroaches FLAGYL (METRONIDAZOLE HCL) 06/20/2012 4 - Hives HAND LAWN CARE SPECIALIST (ETHYL ALCOHOL (SK*11/04/2009 2 - Rash Comments: PT HAS SENSITIVE SKIN. O.K. FOR MEDICAL PROFESSIONAL TO USE HAND LAWN CARE SPECIALIST AND THEN TOUCH HER, BUT SHE HERSELF DOES NOT USE IT. IODINE 02/18/2011 2 - Rash LACTOSE INTOLERANCE (LACTASE) 11/04/2009 SAUK-SUIATTLE 12/07/2017 10 - Anaphylaxis MOLD 04/26/2012 16 - Unknown MORPHINE 03/02/2011 9 - Itching PENICILLIN 06/18/2016 16 - Unknown pet dander [Other] 10/20/2011 16 - Unknown Comments: Cat, Dog, Horse PREDNISONE 08/26/2012 14 - Other: See Comments Comments: Moodiness, restlessness, states feels like crap all over. SEASONAL ALLERGIES 11/04/2009 16 - Unknown Comments: Trees, grasses, weeds, ragweed. SINGULAIR (MONTELUKAST) 12/07/2017 16 - Unknown Comments: Possible rash SODIUM LAURYL SULFATE 09/30/2010 2 - Rash Comments: Skin irritation to scalp TREES 05/11/2012 14 - Other: See Comments ZOFRAN (ONDANSETRON HCL (PF)) 03/02/2011 14 - Other: See Comments Comments: Zofran causes cramping and constipation Date Reviewed: 02/09/2018 Reviewed by: Shruthi Huffman) - Fully Assessed Reason for Visit: Rash [1087] Cmt: burning and itching, right side buttocks x 2 days Primary Visit Diagnosis:Ringworm of body [B35.4] Order(s):terbinafine HCl (LAMISIL) 1 % creamApply 1 application to affected area twice daily for 14 days.Disp: 24 gRfl: 1 Prescriptions as of 02/09/2018 Sig: FOLIC ACID 400 MCG TABLET Take 400 mcg by mouth once da* BENZONATATE 100 MG CAPSULE Take 1 capsule by mouth every* ALBUTEROL SULFATE HFA 90 MCG/* Inhale 2 Puffs as instructed * VITAMIN D-3 ORAL Take by mouth. VITAMIN D3 2,000 UNIT CAPSULE BECLOMETHASONE DIPROPIONATE 8* Inhale 2 Puffs as instructed * FAMOTIDINE 20 MG TABLET Take 1 tablet by mouth at bed* NAPROXEN 500 MG TABLET Take 1 tablet by mouth twice * Patient taking differently: Take 250 mg by mouth twice da* KETOTIFEN 0.025 % (0.035 %) E* Use 1 Drop in both eyes twice* ESCITALOPRAM 20 MG TABLET Take 1 tablet by mouth once d* FLUTICASONE 50 MCG/ACTUATION * Use 2 Sprays in each nostril * LORATADINE 10 MG TABLET Take 1 tablet by mouth once d* PROBIOTIC BLEND ORAL Take by mouth. HYDROCORTISONE ACETATE 1 % TO* Apply 1 application to affect* Patient taking differently: Apply 1 application to affect* MULTIVITAMIN CAPSULE Take 1 capsule by mouth once * TERBINAFINE HCL 1 % TOPICAL C* Apply 1 application to affect* Problem List As Of Date 02/09/2018 Noted Resolved Frequency of urination [R35.0] INVALID FOR*10/20/2011 Pelvic pain in female [R10.2] INVALID FOR*10/20/2011 Microscopic hematuria [R31.29] INVALID FOR*09/15/2016 Other hammer toe (acquired) [M20.40] INVALID FOR*10/20/2011 Hallux valgus (acquired) [M20.10] INVALID FOR* Internal hemorrhoids without mention of complic*INVALID FOR*10/20/2011 Diarrhea [R19.7] INVALID FOR*10/20/2011 Abdominal pain, generalized [R10.84] INVALID FOR*10/20/2011 Low back pain [M54.5] INVALID FOR* Closed fracture of metatarsal bone(s) [S92.309A]INVALID FOR*09/15/2016 Tendonitis [M77.9] INVALID FOR*09/15/2016 Acne Vulgaris: Grade III Inflammatory and Comed*INVALID FOR*09/15/2016 Other seborrheic dermatitis [L21.8] INVALID FOR*09/15/2016 History of cold-induced urticaria [Z87.2] INVALID FOR* Seborrhea [L21.9] INVALID FOR*09/15/2016 Eczematous dermatitis [L30.9] INVALID FOR*09/15/2016 Xerosis cutis [L85.3] INVALID FOR*09/15/2016 Backache, unspecified [M54.9] INVALID FOR*09/15/2016 Asthma [J45.909] INVALID FOR* Attention-deficit hyperactivity disorder, predo*INVALID FOR* Pain disorder with psychological component [F45*INVALID FOR* Adjustment disorder with mixed anxiety and depr*INVALID FOR* Chronic midline low back pain without sciatica *INVALID FOR* Cervicalgia [M54.2] INVALID FOR* Degeneration of cervical intervertebral disc [M*INVALID FOR* Allergic rhinitis [J30.9] INVALID FOR* Other instructions from your clinician: TINEA CORPORIS (RINGWORM): Your exam shows you have ringworm, a common fungal infection seen frequently in children. This condition causes scaly red rings to form on the skin. It is often transferred to people from puppies and kittens. While it can be transferred between children, once treatment is begun your child does not need to miss school. Use Lotrimin or Micatin lotion or cream two times daily, and continue to treat for at least two weeks after the ringworm appears to be gone. Ringworm of the scalp is the most common cause of patchy hair loss in children; it often requires treatment with an oral medicine such as griseofulvin, Nizoral, Sporonox, Lamisil, or Diflucan. See your doctor for follow-up care as recommended. Visit Notes: >> Azra Elias LPN [place] Feb 09, 2018 5:17 PM Status: Signed I was present for the physical examination of this patient with provider.Azra Elias LPN Prescriptions ordered this encounter Disp Refills Start End TERBINAFINE HCL 1 % TOPICAL CREAM 24 g 1 02/09/2018 02/23/2018 Route: TOPICAL Sig: Apply 1 application to affected area twice daily for 14 days. Encounter Status:Closed by SHRUTHI RODRIGUES CNP on 02/09/18 EMERGENCY DEPARTMENT Observed: 02/03/2018 Status: F Source: [place] SUMMARY 10:53 PM [facility] REPOSITORY [facility] Medical Records Department [address] [place] [address] Emergency Department Summary 02/03/18 1858 MR#: [id number] Acct: [id number] Name: ANGELICA ANDUJAR Rep #: [id number] : 1980 37 From: Juana Christopher MD PCP: Mallorie Juares Status: DEP ER - ER Visit Summary Date of Service: 02/03/18 Chief Complaint: Lightheaded History of Present Illness: The patient is a 37 F who states she has been lightheaded for the past 5 days. He was initially thought to be secondary to the heat. Patient has been drinking more fluids without improvement. She is also complaining of upper abdominal pain and nausea. She has had a cough for the last 1 month with white sputum. Patient was also on Lexapro for approximately 10 days but then developed a rash. She stopped her medications 7 days ago. Patient has been seen in the ER twice in the last week with similar complaints. Laboratory evaluation was unremarkable. Physical Examination: Blood pressure is 150/92, otherwise vitals are normal. Patient is sitting upright in bed. She makes poor eye contact and has a flat affect. Heart is regular rate and rhythm. Lung sounds are clear. Abdomen is soft with focal tenderness in epigastric region. She is active bowel sounds throughout. There is no guarding or rebound. Neuro exam reveals no focal deficits with good strength and sensation on testing. Test Results: EKG is sinus at 76 with no sign of acute ischemia. CBC and chemistry studies are normal. LFTs and lipase are normal. Urine is normal. Patency test negative. Burnet screen is negative. Emergency Department Course and Treatment: Patient was given fluids. Orthostatic vital signs were ordered. Nursing staff states that she felt lightheaded when standing, but her orthostatic vital signs are unremarkable. On repeat evaluation she is tolerating p.o. I explained to her that I am unable to explain why she is feeling lightheaded, but her vital signs and workup have been unremarkable. She is complaining of epigastric pain and states that the color of her stool has changed recently. She has been on Pepcid for quite some time. She will be treated with Prevacid instead to see if that helps her epigastric pain. She is encouraged to follow-up with her primary care physician. Treatment Plan: [] Disposition: Discharge Impression: Dizziness, uncertain etiology This note was generated with [employer] dictation software. It may contain incorrect words, spelling, and punctuation that were not noted in review of the chart prior to signing ED Disposition - Plan for ED Patient: Chief Complaint: General Illness Referrals: Mallorie Alexis, WOLF-C [Primary Care Provider] - What to do if you have Problems For any increased pain, shortness of breath, bleeding, nausea or vomiting, chest pain, or any unexpected problems, contact your Primary Care Provider. Call [facility] ([phone]) or report to the closest Emergency Room. Call 911 if necessary. 02/03/18 1365 <Electronically signed by Juana Christopher MD> Date Juana Christopher MD Cosigner Signature (If Indicated): Date CC: Mallorie DE LA TORRE DISCHARGE INSTRUCTION Observed: 02/03/2018 Status: F Source: [place] 7:02 PM [facility] REPOSITORY [facility] Medical Records Department [address] [place] [address] Discharge Instruction 02/03/18 1900 MR#: [id number] Acct: [id number] Name: CONJOSEFINA Rep #: [id number] : 1980 37 From: Juana Christopher MD PCP: Mallorie Juares Status: REG ER ED Disposition - Plan for ED Patient: Disposition: Home or Assisted Living Chief Complaint: General Illness Instructions: ED Dizziness [facility] Prescriptions: Lansoprazole [Prevacid] 15 mg PO DAILY #30 capsule Referrals: Mallorie Alexis, PROGRESS CLERK-C [Primary Care Provider] - As soon as possible What to do if you have Problems For any increased pain, shortness of breath, bleeding, nausea or vomiting, chest pain, or any unexpected problems, contact your Primary Care Provider. Call [facility] ([phone]) or report to the closest Emergency Room. Call 911 if necessary. 02/03/18 190 <Electronically signed by Juana Christopher MD> Date Juana Christopher MD Cosigner Signature (If Indicated): Date CC: Mallorie CHAPARRO Collected: 02/03/2018 Status: F Source: [place] 6:03 PM [facility] REPOSITORY TYPE CODE TESTS RESULT OUT OF RANGE REFERENCE UNITS LAB L700.5700 Negative Normal MONO Negative Performed By: #### L700.5500 #### [facility] [address] [place], [place], [address] BEDSIDE GLUCOSE Collected: 02/03/2018 Status: F Source: [place] 5:20 PM [facility] REPOSITORY TYPE CODE TESTS RESULT OUT OF RANGE REFERENCE UNITS LAB L501.080 70-110 mg/dL Normal BEDSIDE GLU 82 Result Comment: MANAGEMENT OF PATIENT CARE PER NURSING PROTOCOL Performed By: #### L501.080 #### [facility] Point of Care [address] [place] [address] CBC W/DIFF, AUTOMATED Collected: 02/03/2018 Status: F Source: [place] 5:20 PM [facility] REPOSITORY TYPE CODE TESTS RESULT OUT OF RANGE REFERENCE UNITS LAB L100.1000 4.4-11.0 K/mm3 Normal WBC 8.9 LAB L100.1200 4.2-5.4 M/mm3 Normal RBC 4.86 LAB L100.1300 12.0-15.0 g/dl Normal HGB 13.9 LAB L100.1400 37-47 % Normal HCT 42.1 LAB L100.1500 81-99 fL Normal MCV 86.6 LAB L100.1600 27.0-32.0 pg Normal MCH 28.6 LAB L100.1700 32-36 g/gl Normal MCHC 33.0 LAB L100.1810 11.6-14.6 % Normal RDW CV 12.6 LAB L100.1820 35.1-43.9 fl Normal RDW SD 40.6 LAB L100.1900 150-450 K/mm3 Normal PLT 222 LAB L100.2000 6.2-12.0 fl Normal MPV 10.7 LAB L100.2100 47-70 % High NEUT% 71.6 LAB L100.2200 19-41 % Low LY% 18.7 LAB L100.2300 0-10 % Normal MONO% 6.5 LAB L100.2400 0-5 % Normal EO% 2.7 LAB L100.2500 0-1 % Normal BASO% 0.3 LAB L100.2550 0.0-0.9 % Normal IM GRAN % 0.200 Result Comment: IG% - Immature Granulocytes (promyelocytes, myelocytes and metamyelocytes) > 1% indicates that a LEFT SHIFT is Present. LAB L100.2620 2.0-7.7 X10 3/uL Normal Absolute Neut 6.4 LAB L100.2720 0.83-4.51 X10 3/ul Normal Absolute Lymph 1.66 Performed By: #### L100.0100 #### [facility] [address] [place], [address] BASIC METABOLIC Collected: 02/03/2018 Status: F Source: [place] PROFILE (BMP) 5:20 PM [facility] REPOSITORY TYPE CODE TESTS RESULT OUT OF RANGE REFERENCE UNITS LAB L501.0100 74-106 mg/dL Normal GLU 83 Result Comment: Please note revised GLUCOSE reference range effective 2017. LAB L501.1000 7-18 mg/dL Normal BUN 11 LAB L501.1100 0.55-1.02 mg/dL Normal CREAT,SERUM 0.78 Result Comment: The validity of the calculated GFR AND GFRAA in patients over 70 years has not been determined. Clinical correlation is essential. LAB L501.1110 >60 mL/min Normal EST GFR 87 Result Comment: Non- GFR Calc LAB L501.1115 >60 mL/min Normal EST GFR - AA 105 Result Comment: GFR Calc LAB L501.1255 ml/min Normal Estimated CRCL 94.17 LAB L501.1300 10-20 RATIO Normal BUN/CRE 14.1 LAB L501.2200 8.5-10 mg/dL Normal .1 CA 8.9 LAB L501.5300 136-14 mmol/L Normal 5 NA 142 LAB L501.5600 3.5-5. mmol/L Normal 1 K 3.8 LAB L501.5900 98-107 mmol/L High CL 108 LAB L501.6100 21.0-3 mmol/L Normal 2.0 CO2 26.0 LAB L501.6200 5-15 Normal GAP 8 Performed By: #### L500.2500, L500.3400, L501.2450 #### [facility] [address] [place], [place], [id number] LIVER PROFILE Collected: 02/03/2018 Status: F Source: [place] 5:20 PM [facility] REPOSITORY TYPE CODE TESTS RESULT OUT OF RANGE REFERENCE UNITS LAB L501.1500 6.4-8.2 g/dL Normal T PROT 7.3 LAB L501.1800 3.2-5.0 g/dL Normal ALB 3.8 LAB L501.1950 2.2-4.2 g/dL Normal GLOB 3.5 LAB L501.4100 15-37 U/L Low AST 10 LAB L501.4305 45-117 U/L Normal ALK P 76 LAB L501.4405 13-56 U/L Normal ALT 19 LAB L501.4600 0.20-1.00 mg/dL Normal T BILI 0.30 LAB L501.4700 0.00-0.30 mg/dL Normal D BILI 0.09 Performed By: #### L500.2500, L500.3400, L501.2450 #### [facility] [address] [place], [place], [address] LIPASE Collected: 02/03/2018 Status: F Source: [place] 5:20 PM [facility] REPOSITORY TYPE CODE TESTS RESULT OUT OF RANGE REFERENCE UNITS LAB L501.2450 73-393 U/L Normal LIPASE 122 Performed By: #### L500.2500, L500.3400, L501.2450 #### [facility] [address] [place], [place], [id number] URINALYSIS, COMPLETE Collected: 02/03/2018 Status: F Source: [place] 5:00 PM [facility] REPOSITORY Order Comment: How was Urine Obtained? CLEAN CATCH TYPE CODE TESTS RESULT OUT OF RANGE REFERENCE UNITS LAB L400.3000 Yellow COLOR Normal Yellow LAB L400.3050 Clear Normal CLARITY Sl. Cloudy LAB L400.3200 Normal mg/dl Normal GLUCOSE, UR Normal LAB L400.3300 Negative mg/dL Normal BILIRUBIN URINE Negative LAB L400.3400 Negative mg/dl Normal KETONE UR Negative LAB L400.3465 1.002-1.030 Normal SP.GR. DIPSTX 1.005 LAB L400.3550 5.0 - 8.0 pH UR Normal 6.5 LAB L400.3600 Negative mg/dl PROT Normal DIPSTX Negative LAB L400.3700 Normal mg/dl Normal UROBILI Normal LAB L400.3750 Negative Normal NITRITE UR Negative LAB L400.3780 Negative /ul High 25 OCCULT BLOOD-UR LAB L400.3800 Negative /ul LEUK Normal ESTERASE Negative LAB L400.4050 0-5 /hpf WBC 0 Normal SEEN LAB L400.4100 0-5 /hpf Normal RBC-UA 0-5 SEEN LAB L400.4150 5-10 /hpf SQUAM Normal EPI 0-5 SEEN LAB L400.4300 None Seen /hpf 0 Normal BACTERIA SEEN LAB L400.4350 <or=2+ /hpf 0 Normal MUCUS, URINE SEEN LAB L400.4900 1+ Normal AMORPHOUS URATE Performed By: #### L400.0001 #### [facility] [address] [place], [place], [address] ,URINE Collected: 02/03/2018 Status: F Source: [place] 5:00 PM [facility] REPOSITORY TYPE CODE TESTS RESULT OUT OF REFERENCE UNITS RANGE LAB L400.8000 Negative Normal HCGUQUAL Negative Result Comment: Very dilute urine specimens, as indicated by a low specific gravity, may not contain credit and collections representative levels of hCG. If is still suspected, a first morning urine specimen should be collected 48 hours later and tested. Performed By: #### L400.7600 #### [facility] [address] [place], [address] EMERGENCY DEPARTMENT Observed: 02/01/2018 Status: F Source: [place] SUMMARY 11:33 PM [facility] REPOSITORY [facility] Medical Records Department [address] [place] [address] Emergency Department Summary 02/01/18 1828 MR#: [id number] Acct: [id number] Name: ANGELICA ANDUJAR Rep #: [id number] : 1980 37 From: Stephan Witt MD PCP: Mallorie Juares Status: DEP ER - ER Visit Summary Date of Service: 02/01/18 Chief Complaint: Short of breath History of Present Illness: The patient is a 37 F with shortness of breath for several days. The patient says she also feels exhausted and lightheaded. She says she was in the ED 2 days ago for heat exhaustion and received IV fluids. She also says she stopped her antidepressants last week. She denies any suicidal or homicidal thoughts. Physical Examination: Afebrile and vital signs unremarkable. Patient has a depressed mood and blunted affect. Alert and oriented. Normal concentration and thought processes. Head and neck atraumatic. Cranial nerves grossly intact. No focal or lateralizing neurologic abnormalities grossly. Heart regular. Lungs show wheezing in all carballo. Abdomen soft. Skin appears normal. No rash. Test Results: EKG and chest x-ray pending. Emergency Department Course and Treatment: Patient had an inconsistent history and multiple complaints. She did have some wheezing and so I will check an EKG and chest x-ray. She was given a breathing treatment. I suspect that some of her symptoms may be from discontinuing her antidepressant treatment last week. She says she stopped this because she had a rash on her legs. That rash has resolved. Patient denies that her discontinuation is playing a role in her symptoms. I was subsequently notified that the patient had called the crisis counselor. They had recommended outpatient follow-up. She said that she did not want to wait for outpatient follow-up and told them that she was coming to the emergency department so that she could see someone today. She was told that this was not appropriate. I will thoroughly evaluate her, but I suspect that there is an aspect of secondary gain. EKG showed sinus rhythm at a rate of 74. No acute abnormalities. Chest x-ray showed no acute abnormalities. Patient will be treated with a course of Zyrtec for allergic rhinitis. I advised her to follow-up with her crisis counselor. Return for any suicidal or homicidal thoughts. Treatment Plan: As above Disposition: Discharge Impression: 1. Allergic rhinitis 2. Medication nonadherence This note was generated with Bedloo dictation software. It may contain incorrect words, spelling, and punctuation that were not noted in review of the chart prior to signing ED Disposition - Plan for ED Patient: Chief Complaint: Shortness of Breath Referrals: Mallorie Alexis, PROGRESS CLERK-C [Primary Care Provider] - What to do if you have Problems For any increased pain, shortness of breath, bleeding, nausea or vomiting, chest pain, or any unexpected problems, contact your Primary Care Provider. Call [facility] ([phone]) or report to the closest Emergency Room. Call 911 if necessary. 02/01/18 2209 <Electronically signed by Stephan Witt MD> Date Stephan Witt MD Cosigner Signature (If Indicated): Date CC: Mallorie DE LA TORRE DISCHARGE INSTRUCTION Observed: 02/01/2018 Status: F Source: [place] 11:33 PM [facility] REPOSITORY [facility] Medical Records Department [address] [place] [address] Discharge Instruction 02/01/182003 MR#: [id number] Acct: [id number] Name: ANGELICA ANDUJAR Rep #: [id number] : 1980 37 From: Stephan Witt MD PCP: Mallorie Juares Status: DEP ER ED Disposition - Plan for ED Patient: Chief Complaint: Shortness of Breath Instructions: Allergy Medications Prescriptions: Cetirizine HCl [Zyrtec] 10 mg PO DAILY #30 tab Referrals: Mallorie Alexis, PROGRESS CLERK-C [Primary Care Provider] - Additional Instructions: follow up with crisis counselor What to do if you have Problems For any increased pain, shortness of breath, bleeding, nausea or vomiting, chest pain, or any unexpected problems, contact your Primary Care Provider. Call [facility] ([phone]) or report to the closest Emergency Room. Call 911 if necessary. 02/01/18 7693 <Electronically signed by Stephan Witt MD> Date Stephan Witt MD Cosigner Signature (If Indicated): Date CC: Mallorie DE LA TORRE CHEST 1 VIEW Observed: 02/01/2018 Status: F Source: [place] (PORTABLE) 6:27 PM [facility] REPOSITORY [facility] Imaging Services [address] [place] [address] Chest 1 View (Portable) MR#: [id number] Acct: [id number] Name: ANGELICA ANDUJAR Rep #: [id number] : 1980 F 37 From: Tommie Hay DO PCP: Mallorie Juares Status: REG ER Study: Chest 1 View (Portable) Date of Exam: 02/01/18 Exam# [id number] Ordering Dr: Stephan Witt MD STUDY: X-RAY CHEST REASON FOR EXAM: Female, 37 years old. Shortness of breath TECHNIQUE: Single frontal view COMPARISON: January 14, 2018 FINDINGS: The lungs are clear and expanded. There is no demonstrated pleural abnormality. Normal size heart. Normal mediastinum and jennifer. Normal visualized pulmonary arteries. Normal visualized aortic arch and descending thoracic aorta. Normal visualized thoracic spine. Normal visualized ribs, clavicles, and shoulders. There is no demonstrated abnormality of the visualized soft tissue structures of the upper abdomen. RAD/Chest 1 View (Portable) IMPRESSION: Normal x-ray examination of the chest. Electronically Signed: Tommie Hay DO at 19:26 EDT Tel [phone], Service support , CC: Stephan Witt MD; Mallorie DE LA TORRE Vault Mechanic: Signed EMERGENCY DEPARTMENT Observed: 01/30/2018 Status: F Source: [place] SUMMARY 11:35 PM [facility] REPOSITORY [facility] Medical Records Department [address] [place] [address] Emergency Department Summary 01/30/18 1752 MR#: [id number] Acct: [id number] Name: ANGELICA ANDUJAR Rep #: [id number] : 1980 37 From: Yariel Hilton MD PCP: Mallorie Juares Status: DEP ER - ER Visit Summary Date of Service: 01/30/18 Chief Complaint: Heat Exhaustion History of Present Illness: The patient is a 37 F with concern for heat exhaustion. Patient states that her apartment is very very hot over the past 2 days. She states that she has been lightheaded and dizzy. She has had 3 episodes of diarrhea. She has also had some mild abdominal cramping. She does describe some mild nausea. She states she has never had symptoms like this before. She denies headache or visual change. She denies any recent change in medication. She denies any recent sick contacts. She has had no chest pain or trouble breathing. Physical Examination: Vital signs reviewed General: Well-nourished, well-developed Head: Normocephalic, atraumatic Eyes: Pupils equal and reactive, extraocular muscles intact Neck, supple, no lymphadenopathy Heart: Regular rate and rhythm Respiratory: No distress, clear bilaterally Abdomen: Soft, nontender, nondistended, no peritoneal signs Back: Nontender Extremities: Nontender, no edema, no cords Skin: Normal color no rash Neuro: Alert and oriented, no focal or lateralizing deficits Test Results: [] Emergency Department Course and Treatment: The patient had no mental status change. Patient was sent that she is not febrile here. She has a normal examination. I did obtain screening labs and she was hydrated. She declined antiemetics. Labs are unremarkable. The patient is improved after hydration. She will be discharged home. Treatment Plan: [] Disposition: Charge Impression: 1. Heat illness This note was generated with ImpactMediaation software. It may contain incorrect words, spelling, and punctuation that were not noted in review of the chart prior to signing ED Disposition - Plan for ED Patient: Disposition: Home or Assisted Living Chief Complaint: Nausea/Vomiting/Diarrhea Instructions: ED Exhaustion Heat Referrals: Katharina Bejarano,Samantha Hood [NON-STAFF] - What to do if you have Problems For any increased pain, shortness of breath, bleeding, nausea or vomiting, chest pain, or any unexpected problems, contact your Primary Care Provider. Call [facility] ([phone]) or report to the closest Emergency Room. Call 911 if necessary. 01/30/18 9795 <Electronically signed by Yariel Hilton MD> Date Yariel Hilton MD Cosigner Signature (If Indicated): Date CC: Mallorie DE LA TORRE CBC W/DIFF, AUTOMATED Collected: 01/30/2018 Status: F Source: [place] 6:20 PM [facility] REPOSITORY TYPE CODE TESTS RESULT OUT OF RANGE REFERENCE UNITS LAB L100.1000 4.4-11.0 K/mm3 Normal WBC 10.4 LAB L100.1200 4.2-5.4 M/mm3 Normal RBC 5.13 LAB L100.1300 12.0-15.0 g/dl Normal HGB 15.0 LAB L100.1400 37-47 % Normal HCT 44.5 LAB L100.1500 81-99 fL Normal MCV 86.7 LAB L100.1600 27.0-32.0 pg Normal MCH 29.2 LAB L100.1700 32-36 g/gl Normal MCHC 33.7 LAB L100.1810 11.6-14.6 % Normal RDW CV 13.0 LAB L100.1820 35.1-43.9 fl Normal RDW SD 40.7 LAB L100.1900 150-450 K/mm3 Normal PLT 222 LAB L100.2000 6.2-12.0 fl Normal MPV 11.0 LAB L100.2100 47-70 % High NEUT% 78.0 LAB L100.2200 19-41 % Low LY% 14.1 LAB L100.2300 0-10 % Normal MONO% 5.7 LAB L100.2400 0-5 % Normal EO% 1.8 LAB L100.2500 0-1 % Normal BASO% 0.3 LAB L100.2550 0.0-0.9 % Normal IM GRAN % 0.100 Result Comment: IG% - Immature Granulocytes (promyelocytes, myelocytes and metamyelocytes) > 1% indicates that a LEFT SHIFT is Present. LAB L100.2620 2.0-7.7 X10 3/uL High Absolute Neut 8.1 LAB L100.2720 0.83-4.51 X10 3/ul Normal Absolute Lymph 1.47 Performed By: #### L100.0100 #### [facility] [address] [place] [address]. [place], [place], [address] BASIC METABOLIC Collected: 01/30/2018 Status: F Source: [place] PROFILE (BMP) 6:20 PM [facility] REPOSITORY TYPE CODE TESTS RESULT OUT OF RANGE REFERENCE UNITS LAB L501.0100 74-106 mg/dL Normal GLU 92 Result Comment: Please note revised GLUCOSE reference range effective 2017. LAB L501.1000 7-18 mg/dL Normal BUN 9 LAB L501.1100 0.55-1.02 mg/dL Normal CREAT,SERUM 0.85 Result Comment: The validity of the calculated GFR AND GFRAA in patients over 70 years has not been determined. Clinical correlation is essential. LAB L501.1110 >60 mL/min Normal EST GFR 79 Result Comment: Non- GFR Calc LAB L501.1115 >60 mL/min Normal EST GFR - AA 95 Result Comment: GFR Calc LAB L501.1255 ml/min Normal Estimated CRCL 86.41 LAB L501.1300 10-20 RATIO Normal BUN/CRE 10.5 LAB L501.2200 8.5-10 mg/dL Normal .1 CA 9.3 LAB L501.5300 136-14 mmol/L Normal 5 NA 138 LAB L501.5600 3.5-5. mmol/L Normal 1 K 4.1 LAB L501.5900 98-107 mmol/L Normal CL 107 LAB L501.6100 21.0-3 mmol/L Normal 2.0 CO2 25.0 LAB L501.6200 5-15 Normal GAP 6 Performed By: #### L500.2500 #### [facility] [address] [facility]. [place], [place], [address] PROGRESS Observed: 01/23/2018 Status: COMPLETED Source: [place] 3:02 PM [facility] REPOSITORY HNO ID: [id number] Author: Win Mejia Service: (none) Author Type: Physician Type: Progress Notes Filed: 01/23/2018 3:25 PM Note Text: Chief Complaint No chief complaint on file. HPI Angelica Andujar is a 37 year old female who presents here today for follow up. Rib pain: pt still having right and left rib pain, pt states this might be due to her cough. She has been having a cough for 2 weeks and is concerned about this. Would like to have a chest xray and mammogram. Pt would like to go off of some medications, states she does not want to be taking more than she needs to. She was experiencing some GI issues but has been taking a stool softener and plenty of water. Past medical history, appointments, medications, allergies reviewed. Previous Medical History PAST MEDICAL HISTORY Diagnosis Date - 11/2009 - Anxiety - Asthma - Depression - Recurrent UTI - Seasonal allergies - STD (sexually transmitted disease) Previous Surgical History PAST SURGICAL HISTORY Procedure Laterality Date - COLONOSCOPY W/BX 03/02/11 - EGD W/O OR W/BRUSH/WASH 11/14/2012 EGD - MED INC ALL EX DRUG 11/2009 - PAST SURGICAL HISTORY OF WISDOM TEETH Family History FAMILY HISTORY Problem Relation Age of Onset - Alcohol/Drug Mother - Arthritis Mother - Asthma Mother - Cancer Mother CANCER - Hypertension Mother - Stroke Mother - Cancer Father LUNG CANCER - Emphysema Father - Asthma Brother - Breast Cancer Maternal Aunt - Hypertension Brother Patient Allergies ALLERGIES Allergen Reactions - Anti-Bacterial Jennifer* Rash - Bees Unknown Listed on records from Samantha Hood - Benzalkonium Chlori* Other: See Comments Skin irritations - Doxycycline GI Upset stomach cramps - Dust Mites Unknown Dust mites and cockroaches - Flagyl [Metronidazo* Hives - Hand Loan Servicing Officer [Eth* Rash PT HAS SENSITIVE SKIN. O.K. FOR MEDICAL PROFESSIONAL TO USE HAND LAWN CARE SPECIALIST AND THEN TOUCH HER, BUT SHE HERSELF DOES NOT USE IT. - Iodine Rash - Lactose Intolerance* - Nisqually Anaphylaxis - Mold Unknown - Morphine Itching - Penicillin Unknown - Pet Dander [Other] Unknown Cat, Dog, Horse - Prednisone Other: See Comments Moodiness, restlessness, states feels like crap all over. - Seasonal Allergies Unknown Trees, grasses, weeds, ragweed. - Singulair [[place]el[place]* Unknown Possible rash - Sodium Lauryl Sulfa* Rash Skin irritation to scalp - Trees Other: See Comments - Zofran [Ondansetron* Other: See Comments Zofran causes cramping and constipation Current Medications Current Outpatient Prescriptions on File Prior to Visit: folic acid 400 mcg tablet Take 400 mcg by mouth once daily. benzonatate (TESSALON PERLE) 100 mg capsule Take 1 capsule by mouth every 8 hours as needed for Cough. albuterol HFA (PROAIR HFA) 90 mcg/actuation inhaler Inhale 2 Puffs as instructed every 4 hours as needed for Wheezing/Shortness of Breath. Dextromethorphan-guaiFENesin (GUAIASORB DM) 10-100 mg/5 mL liquid Take 5 mL by mouth every 12 hours for 15 days. CALCIUM CARBONATE/VITAMIN D3 (VITAMIN D-3 ORAL) Take by mouth. VITAMIN D-3 2,000 unit cap beclomethasone (QVAR) 80 mcg/actuation inhaler Inhale 2 Puffs as instructed twice daily. famotidine (PEPCID) 20 mg tablet Take 1 tablet by mouth at bedtime as needed. naproxen (NAPROSYN) 500 mg tablet Take 1 tablet by mouth twice daily as needed (for pain/inflammation). Take with food. (Patient taking differently: Take 250 mg by mouth twice daily as needed (for pain/inflammation). Take with food.) ketotifen fumarate (ZADITOR) 0.025 % (0.035 %) ophthalmic solution Use 1 Drop in both eyes twice daily. As needed. escitalopram oxalate (LEXAPRO) 20 mg tablet Take 1 tablet by mouth once daily. fluticasone (FLONASE) 50 mcg/actuation nasal spray Use 2 Sprays in each nostril once daily. loratadine (CLARITIN) 10 mg tablet Take 1 tablet by mouth once daily. Hydrocortisone Acetate 1 % crea Apply 1 application to affected area twice daily. (Patient taking differently: Apply 1 application to affected area as needed.) Multivitamin capsule Take 1 capsule by mouth once daily. L.ACID/L.CASEI/B.BIF/B.FLOR/FOS (PROBIOTIC BLEND ORAL) Take by mouth. No current facility-administered medications on file prior to visit. Social History Social History Marital status: Single Spouse name: Years of education: GED Number of children: 0 Occupational History Occupation Employer Comment Unemployed Social History Main Topics Smoking status: Current Every Day Smoker Packs/day: 0.00 Years: 3.00 Types: Cigarettes Last attempt to quit: 09/08/2015 Smokeless tobacco: Never Used Comment: 2 weeks no cigarettes Alcohol use: Yes Comment: Seldom Drug use: No Sexual activity: Yes Partners with: Male control/protection: None EXAM: BP 128/70 Pulse 76 Temp 36.3 ?C (97.3 ?F) (Left Tympanic) Resp 10 Wt 88.9 kg (196 lb) BMI 30.70 kg/m? Ears: External ears normal, canals clear. Oropharynx: Lips, mucosa, and tongue normal, teeth and gums normal, oropharynx normal. Lungs: Lungs clear to auscultation. No wheezing, rhonchi, rales. Heart: RRR without murmur, gallop, or rubs. No ectopy. Health Maintenance List ONE PNEUMOVAX PRIOR TO AGE 65 due on 1997 PAP EVERY 5 YEARS due on 09/26/2017 HPV EVERY 5 YEARS due on 09/26/2017 INFLUENZA(Season Ended) due on 05/06/2018 DTAP,TDAP,TD(8 - Td) due on 01/22/2025 Data reviewed N/A ASSESSMENT/PLAN: 1. Allergic rhinitis, unspecified seasonality, unspecified trigger - ICD9: 477.9, ICD10: J30.9 (primary diagnosis) Continue current medications. 2. Cough - ICD9: 786.2, ICD10: R05 Check CXR; continue allergy treatment - XR CHEST 2V FRONTAL/LAT 3. Screening for breast cancer - ICD9: V76.10, ICD10: Z12.31 - MARGUERITE SCREENING 4. Adjustment disorder with mixed anxiety and depressed mood - ICD9: 309.28, ICD10: F43.23 Continue lexapro 5. Rib pain Symptomatic treatment Follow up prn Win Mejia MD The documentation for this note was completed by Loida Man Ma acting as scribe for Win Mejia MD. January 23, 2018 3:02 PM. CNOV Observed: 01/23/2018 Status: COMPLETED Source: [place] 2:40 PM [facility] REPOSITORY Office Visit (FAMPWS) ANGELICA ANDUJAR ([id number]) 1980 F Date Time Provider Department 01/23/18 2:40 PM [facility] During your visit today, we recorded the following information about you: Temperature Pulse Respiration Blood pressure 97.3 degrees 76/minute 10/minute 128/70 Weight 88.9 kg Win Mejia MD 01/23/2018 3:25 PM Signed Chief Complaint No chief complaint on file. HPI Angelica Andujar is a 37 year old female who presents here today for follow up. Rib pain: pt still having right and left rib pain, pt states this might be due to her cough. She has been having a cough for 2 weeks and is concerned about this. Would like to have a chest xray and mammogram. Pt would like to go off of some medications, states she does not want to be taking more than she needs to. She was experiencing some GI issues but has been taking a stool softener and plenty of water. Past medical history, appointments, medications, allergies reviewed. Previous Medical History PAST MEDICAL HISTORY Diagnosis Date - 11/2009 - Anxiety - Asthma - Depression - Recurrent UTI - Seasonal allergies - STD (sexually transmitted disease) Previous Surgical History PAST SURGICAL HISTORY Procedure Laterality Date - COLONOSCOPY W/BX 03/02/11 - EGD W/O OR W/BRUSH/WASH 11/14/2012 EGD - MED INC ALL EX DRUG 11/2009 - PAST SURGICAL HISTORY OF WISDOM TEETH Family History FAMILY HISTORY Problem Relation Age of Onset - Alcohol/Drug Mother - Arthritis Mother - Asthma Mother - Cancer Mother CANCER - Hypertension Mother - Stroke Mother - Cancer Father LUNG CANCER - Emphysema Father - Asthma Brother - Breast Cancer Maternal Aunt - Hypertension Brother Patient Allergies ALLERGIES Allergen Reactions - Anti-Bacterial Jennifer* Rash - Bees Unknown Listed on records from Samantha Hood - Benzalkonium Chlori* Other: See Comments Skin irritations - Doxycycline GI Upset stomach cramps - Dust Mites Unknown Dust mites and cockroaches - Flagyl [Metronidazo* Hives - Hand Loan Servicing Officer [Eth* Rash PT HAS SENSITIVE SKIN. O.K. FOR MEDICAL PROFESSIONAL TO USE HAND LAWN CARE SPECIALIST AND THEN TOUCH HER, BUT SHE HERSELF DOES NOT USE IT. - Iodine Rash - Lactose Intolerance* - Nisqually Anaphylaxis - Mold Unknown - Morphine Itching - Penicillin Unknown - Pet Dander [Other] Unknown Cat, Dog, Horse - Prednisone Other: See Comments Moodiness, restlessness, states feels like crap all over. - Seasonal Allergies Unknown Trees, grasses, weeds, ragweed. - Singulair [[place]el[place]* Unknown Possible rash - Sodium Lauryl Sulfa* Rash Skin irritation to scalp - Trees Other: See Comments - Zofran [Ondansetron* Other: See Comments Zofran causes cramping and constipation Current Medications Current Outpatient Prescriptions on File Prior to Visit: folic acid 400 mcg tablet Take 400 mcg by mouth once daily. benzonatate (TESSALON PERLE) 100 mg capsule Take 1 capsule by mouth every 8 hours as needed for Cough. albuterol HFA (PROAIR HFA) 90 mcg/actuation inhaler Inhale 2 Puffs as instructed every 4 hours as needed for Wheezing/Shortness of Breath. Dextromethorphan-guaiFENesin (GUAIASORB DM) 10-100 mg/5 mL liquid Take 5 mL by mouth every 12 hours for 15 days. CALCIUM CARBONATE/VITAMIN D3 (VITAMIN D-3 ORAL) Take by mouth. VITAMIN D-3 2,000 unit cap beclomethasone (QVAR) 80 mcg/actuation inhaler Inhale 2 Puffs as instructed twice daily. famotidine (PEPCID) 20 mg tablet Take 1 tablet by mouth at bedtime as needed. naproxen (NAPROSYN) 500 mg tablet Take 1 tablet by mouth twice daily as needed (for pain/inflammation). Take with food. (Patient taking differently: Take 250 mg by mouth twice daily as needed (for pain/inflammation). Take with food.) ketotifen fumarate (ZADITOR) 0.025 % (0.035 %) ophthalmic solution Use 1 Drop in both eyes twice daily. As needed. escitalopram oxalate (LEXAPRO) 20 mg tablet Take 1 tablet by mouth once daily. fluticasone (FLONASE) 50 mcg/actuation nasal spray Use 2 Sprays in each nostril once daily. loratadine (CLARITIN) 10 mg tablet Take 1 tablet by mouth once daily. Hydrocortisone Acetate 1 % crea Apply 1 application to affected area twice daily. (Patient taking differently: Apply 1 application to affected area as needed.) Multivitamin capsule Take 1 capsule by mouth once daily. L.ACID/L.CASEI/B.BIF/B.FLOR/FOS (PROBIOTIC BLEND ORAL) Take by mouth. No current facility-administered medications on file prior to visit. Social History Social History Marital status: Single Spouse name: Years of education: GED Number of children: 0 Occupational History Occupation Employer Comment Unemployed Social History Main Topics Smoking status: Current Every Day Smoker Packs/day: 0.00 Years: 3.00 Types: Cigarettes Last attempt to quit: 09/08/2015 Smokeless tobacco: Never Used Comment: 2 weeks no cigarettes Alcohol use: Yes Comment: Seldom Drug use: No Sexual activity: Yes Partners with: Male control/protection: None EXAM: BP 128/70 Pulse 76 Temp 36.3 ?C (97.3 ?F) (Left Tympanic) Resp 10 Wt 88.9 kg (196 lb) BMI 30.70 kg/m? Ears: External ears normal, canals clear. Oropharynx: Lips, mucosa, and tongue normal, teeth and gums normal, oropharynx normal. Lungs: Lungs clear to auscultation. No wheezing, rhonchi, rales. Heart: RRR without murmur, gallop, or rubs. No ectopy. Health Maintenance List ONE PNEUMOVAX PRIOR TO AGE 65 due on 1997 PAP EVERY 5 YEARS due on 09/26/2017 HPV EVERY 5 YEARS due on 09/26/2017 INFLUENZA(Season Ended) due on 05/06/2018 DTAP,TDAP,TD(8 - Td) due on 01/22/2025 Data reviewed N/A ASSESSMENT/PLAN: 1. Allergic rhinitis, unspecified seasonality, unspecified trigger - ICD9: 477.9, ICD10: J30.9 (primary diagnosis) Continue current medications. 2. Cough - ICD9: 786.2, ICD10: R05 Check CXR; continue allergy treatment - XR CHEST 2V FRONTAL/LAT 3. Screening for breast cancer - ICD9: V76.10, ICD10: Z12.31 - MARGUERITE SCREENING 4. Adjustment disorder with mixed anxiety and depressed mood - ICD9: 309.28, ICD10: F43.23 Continue lexapro 5. Rib pain Symptomatic treatment Follow up prn Win Mejia MD The documentation for this note was completed by Loida Man Ma acting as scribe for Win Mejia MD. January 23, 2018 3:02 PM. Referring Provider: SELF [[id number]] Allergies As of Date: 01/23/2018 Noted Allergy Reaction ANTI-BACTERIAL CLEANSING (BENZETH*10/26/2012 2 - Rash BEES 07/16/2010 16 - Unknown Comments: Listed on records from [facility] BENZALKONIUM CHLORIDE 09/08/2012 14 - Other: See Comments Comments: Skin irritations DOXYCYCLINE 12/13/2012 8 - GI Upset Comments: stomach cramps DUST MITES 04/26/2012 16 - Unknown Comments: Dust mites and cockroaches FLAGYL (METRONIDAZOLE HCL) 06/20/2012 4 - Hives HAND LAWN CARE SPECIALIST (ETHYL ALCOHOL (SK*11/04/2009 2 - Rash Comments: PT HAS SENSITIVE SKIN. O.K. FOR MEDICAL PROFESSIONAL TO USE HAND LAWN CARE SPECIALIST AND THEN TOUCH HER, BUT SHE HERSELF DOES NOT USE IT. IODINE 02/18/2011 2 - Rash LACTOSE INTOLERANCE (LACTASE) 11/04/2009 SAUK-SUIATTLE 12/07/2017 10 - Anaphylaxis MOLD 04/26/2012 16 - Unknown MORPHINE 03/02/2011 9 - Itching PENICILLIN 06/18/2016 16 - Unknown pet dander [Other] 10/20/2011 16 - Unknown Comments: Cat, Dog, Horse PREDNISONE 08/26/2012 14 - Other: See Comments Comments: Moodiness, restlessness, states feels like crap all over. SEASONAL ALLERGIES 11/04/2009 16 - Unknown Comments: Trees, grasses, weeds, ragweed. SINGULAIR (MONTELUKAST) 12/07/2017 16 - Unknown Comments: Possible rash SODIUM LAURYL SULFATE 09/30/2010 2 - Rash Comments: Skin irritation to scalp TREES 05/11/2012 14 - Other: See Comments ZOFRAN (ONDANSETRON HCL (PF)) 03/02/2011 14 - Other: See Comments Comments: Zofran causes cramping and constipation Date Reviewed: 01/23/2018 Reviewed by: Loida Man Ma - Fully Assessed Reason for Visit: Stress [103] Primary Visit Diagnosis:Allergic rhinitis, unspecified seasonality, unspecified trigger [J30.9] Other Visit Diagnoses:Cough [R05] Screening for breast cancer [Z12.31] Adjustment disorder with mixed anxiety and depressed mood [F43.23] Rib pain [R07.81] Order(s):XR CHEST 2V FRONTAL/LAT [[id number]] Order #: [id number] FUTURE MARGUERITE SCREENING [[id number]] Order #: [id number] FUTURE Prescriptions as of 01/23/2018 Sig: FOLIC ACID 400 MCG TABLET Take 400 mcg by mouth once da* BENZONATATE 100 MG CAPSULE Take 1 capsule by mouth every* ALBUTEROL SULFATE HFA 90 MCG/* Inhale 2 Puffs as instructed * DEXTROMETHORPHAN-GUAIFENESIN * Take 5 mL by mouth every 12 h* VITAMIN D-3 ORAL Take by mouth. VITAMIN D3 2,000 UNIT CAPSULE BECLOMETHASONE DIPROPIONATE 8* Inhale 2 Puffs as instructed * FAMOTIDINE 20 MG TABLET Take 1 tablet by mouth at bed* NAPROXEN 500 MG TABLET Take 1 tablet by mouth twice * Patient taking differently: Take 250 mg by mouth twice da* KETOTIFEN 0.025 % (0.035 %) E* Use 1 Drop in both eyes twice* ESCITALOPRAM 20 MG TABLET Take 1 tablet by mouth once d* FLUTICASONE 50 MCG/ACTUATION * Use 2 Sprays in each nostril * LORATADINE 10 MG TABLET Take 1 tablet by mouth once d* HYDROCORTISONE ACETATE 1 % TO* Apply 1 application to affect* Patient taking differently: Apply 1 application to affect* MULTIVITAMIN CAPSULE Take 1 capsule by mouth once * PROBIOTIC BLEND ORAL Take by mouth. Problem List As Of Date 01/23/2018 Noted Resolved Frequency of urination [R35.0] INVALID FOR*10/20/2011 Pelvic pain in female [R10.2] INVALID FOR*10/20/2011 Microscopic hematuria [R31.29] INVALID FOR*09/15/2016 Other hammer toe (acquired) [M20.40] INVALID FOR*10/20/2011 Hallux valgus (acquired) [M20.10] INVALID FOR* Internal hemorrhoids without mention of complic*INVALID FOR*10/20/2011 Diarrhea [R19.7] INVALID FOR*10/20/2011 Abdominal pain, generalized [R10.84] INVALID FOR*10/20/2011 Low back pain [M54.5] INVALID FOR* Closed fracture of metatarsal bone(s) [S92.309A]INVALID FOR*09/15/2016 Tendonitis [M77.9] INVALID FOR*09/15/2016 Acne Vulgaris: Grade III Inflammatory and Comed*INVALID FOR*09/15/2016 Other seborrheic dermatitis [L21.8] INVALID FOR*09/15/2016 History of cold-induced urticaria [Z87.2] INVALID FOR* Seborrhea [L21.9] INVALID FOR*09/15/2016 Eczematous dermatitis [L30.9] INVALID FOR*09/15/2016 Xerosis cutis [L85.3] INVALID FOR*09/15/2016 Backache, unspecified [M54.9] INVALID FOR*09/15/2016 Asthma [J45.909] INVALID FOR* Attention-deficit hyperactivity disorder, predo*INVALID FOR* Pain disorder with psychological component [F45*INVALID FOR* Adjustment disorder with mixed anxiety and depr*INVALID FOR* Chronic midline low back pain without sciatica *INVALID FOR* Cervicalgia [M54.2] INVALID FOR* Degeneration of cervical intervertebral disc [M*INVALID FOR* Allergic rhinitis [J30.9] INVALID FOR* Disposition: Return if symptoms worsen or fail to improve. Follow-up and Disposition History Recorded Encounter Status:Closed by WIN MEJIA MD on 01/23/18 PROGRESS Observed: 01/19/2018 Status: COMPLETED Source: [place] 4:31 PM [facility] REPOSITORY HNO ID: [id number] Author: Ian Ying Service: (none) Author Type: Physician Type: Progress Notes Filed: 01/19/2018 5:18 PM Note Text: Patient presents with: Cough: x 2 weeks Throat Problem: x 2 weeks throat dry, itchy, sore and irritated Eye(s) Itching: x 2 weeks Nasal Congestion: x 2 weeks Musculoskeletal Problem: x 2 weeks side and rib pain below the breast HPI: Feeling sick for 2 weeks. Seen in the free clinic and says she may have had a hiatal hernia. Seen in the ER Tuesday and Tuesday for abdominal pain and side pain. She reports CT of the chest and abdomen showed no problems. She presents to the [facility] primarily for second opinion about abdominal and pain in the side of the ribs. Seen also in the ER for left arm pain 3 weeks ago at [place]. Positive symptoms: Cough, Chest pain, irritated throat, Nasal Congestion, right ear, Wheezing, Sinus pressure, has had some diarrhea (none today, not sure about yesterday), fatigue, anxiety/depression Negative symptoms: Fever, Vomiting, OTC: heat packs, loratidine resumed today (was scheduled for allergy testing today but cancelled due to pain), has resumed taking lexapro after stopping it this winter flonase 2 sprays bid, saline spray Gas relief 80mg. PAST MEDICAL HISTORY Diagnosis Date - 11/2009 - Anxiety - Asthma - Depression - Recurrent UTI - Seasonal allergies - STD (sexually transmitted disease) MEDICATIONS: Current Outpatient Prescriptions: benzonatate (TESSALON PERLE) 100 mg capsule Take 100 mg by mouth three times daily as needed. folic acid 400 mcg tablet Take 400 mcg by mouth once daily. CALCIUM CARBONATE/VITAMIN D3 (VITAMIN D-3 ORAL) Take by mouth. VITAMIN D-3 2,000 unit cap beclomethasone (QVAR) 80 mcg/actuation inhaler Inhale 2 Puffs as instructed twice daily. famotidine (PEPCID) 20 mg tablet Take 1 tablet by mouth at bedtime as needed. naproxen (NAPROSYN) 500 mg tablet Take 1 tablet by mouth twice daily as needed (for pain/inflammation). Take with food. (Patient taking differently: Take 250 mg by mouth twice daily as needed (for pain/inflammation). Take with food.) ketotifen fumarate (ZADITOR) 0.025 % (0.035 %) ophthalmic solution Use 1 Drop in both eyes twice daily. As needed. escitalopram oxalate (LEXAPRO) 20 mg tablet Take 1 tablet by mouth once daily. fluticasone (FLONASE) 50 mcg/actuation nasal spray Use 2 Sprays in each nostril once daily. loratadine (CLARITIN) 10 mg tablet Take 1 tablet by mouth once daily. Hydrocortisone Acetate 1 % crea Apply 1 application to affected area twice daily. (Patient taking differently: Apply 1 application to affected area as needed.) Multivitamin capsule Take 1 capsule by mouth once daily. albuterol HFA (PROAIR HFA) 90 mcg/actuation inhaler Inhale 2 Puffs as instructed every 4 hours as needed for Wheezing/Shortness of Breath. (Patient not taking: Reported on 01/19/2018 ) L.ACID/L.CASEI/B.BIF/B.FLOR/FOS (PROBIOTIC BLEND ORAL) Take by mouth. No current facility-administered medications for this visit. ALLERGIES: ALLERGIES Allergen Reactions - Anti-Bacterial Jennifer* Rash - Bees Unknown Listed on records from [facility] - Benzalkonium Chlori* Other: See Comments Skin irritations - Doxycycline GI Upset stomach cramps - Dust Mites Unknown Dust mites and cockroaches - Flagyl [Metronidazo* Hives - Hand Loan Servicing Officer [Eth* Rash PT HAS SENSITIVE SKIN. O.K. FOR MEDICAL PROFESSIONAL TO USE HAND LAWN CARE SPECIALIST AND THEN TOUCH HER, BUT SHE HERSELF DOES NOT USE IT. - Iodine Rash - Lactose Intolerance* - Nisqually Anaphylaxis - Mold Unknown - Morphine Itching - Penicillin Unknown - Pet Dander [Other] Unknown Cat, Dog, Horse - Prednisone Other: See Comments Moodiness, restlessness, states feels like crap all over. - Seasonal Allergies Unknown Trees, grasses, weeds, ragweed. - Singulair [[place]* Unknown Possible rash - Sodium Lauryl Sulfa* Rash Skin irritation to scalp - Trees Other: See Comments - Zofran [Ondansetron* Other: See Comments Zofran causes cramping and constipation VITALS: BP 110/72 Pulse 71 Temp 36.5 ?C (97.7 ?F) Resp 18 Wt 87.5 kg (193 lb) SpO2 99% BMI 30.23 kg/m? PHYSICAL EXAM: GEN: mildly ill appearing HEENT: PERRL, EOMI, conjunctiva clear Ears: tender left ear exam, canals clear, remote TM scars, TMs without erythema, bulge, or effusion Sinuses: tender sinuses Throat: moist mucous membranes, no erythema, no exudate Neck: supple, no thyromegaly, tender without palpable lymphadenopathy HEART: regular rate and rhythm, no murmurs LUNGS: clear to auscultation, no wheezes or crackles, no increased WOB, right and left lower ribs tender to auscultation. ASSESSMENT/PLAN: 1. Cough - ICD9: 786.2, ICD10: R05 (primary diagnosis) 2. Rib pain - ICD9: 786.50, ICD10: R07.81 3. Epigastric pain - ICD9: 789.06, ICD10: R10.13 4. Uncomplicated asthma, unspecified asthma severity, unspecified whether persistent - ICD9: 493.90, ICD10: J45.909 Keep follow up with primary care tomorrow for ER follow up. Treat musculoskeletal rib and abdominal tenderness with cough suppression, ice packs, avoiding allergy triggers, and avoiding smoking. - BENZONATATE 100 MG CAPSULE - DEXTROMETHORPHAN-GUAIFENESIN 10 MG-100 MG/5 ML ORAL LIQUID - ALBUTEROL SULFATE HFA 90 MCG/ACTUATION AEROSOL INHALER She would like to and may discontinue gas relief pills. She does not appear to have a contagious condition. Ian Ying MD CNOV Observed: 01/19/2018 Status: COMPLETED Source: [place] 3:45 PM [facility] REPOSITORY Office Visit (WSTR) ANGELICA ANUDJAR ([id number]) 1980 F Date Time Provider Department 01/19/18 3:45 PM IAN YINGTR During your visit today, we recorded the following information about you: Temperature Pulse Respiration Blood pressure 97.7 degrees 71/minute 18/minute 110/72 Weight 87.5 kg Ian Ying MD 01/19/2018 5:18 PM Signed Patient presents with: Cough: x 2 weeks Throat Problem: x 2 weeks throat dry, itchy, sore and irritated Eye(s) Itching: x 2 weeks Nasal Congestion: x 2 weeks Musculoskeletal Problem: x 2 weeks side and rib pain below the breast HPI: Feeling sick for 2 weeks. Seen in the free clinic and says she may have had a hiatal hernia. Seen in the ER Tuesday and Tuesday for abdominal pain and side pain. She reports CT of the chest and abdomen showed no problems. She presents to the [facility] primarily for second opinion about abdominal and pain in the side of the ribs. Seen also in the ER for left arm pain 3 weeks ago at [place]. Positive symptoms: Cough, Chest pain, irritated throat, Nasal Congestion, right ear, Wheezing, Sinus pressure, has had some diarrhea (none today, not sure about yesterday), fatigue, anxiety/depression Negative symptoms: Fever, Vomiting, OTC: heat packs, loratidine resumed today (was scheduled for allergy testing today but cancelled due to pain), has resumed taking lexapro after stopping it this winter flonase 2 sprays bid, saline spray Gas relief 80mg. PAST MEDICAL HISTORY Diagnosis Date - 11/2009 - Anxiety - Asthma - Depression - Recurrent UTI - Seasonal allergies - STD (sexually transmitted disease) MEDICATIONS: Current Outpatient Prescriptions: benzonatate (TESSALON PERLE) 100 mg capsule Take 100 mg by mouth three times daily as needed. folic acid 400 mcg tablet Take 400 mcg by mouth once daily. CALCIUM CARBONATE/VITAMIN D3 (VITAMIN D-3 ORAL) Take by mouth. VITAMIN D-3 2,000 unit cap beclomethasone (QVAR) 80 mcg/actuation inhaler Inhale 2 Puffs as instructed twice daily. famotidine (PEPCID) 20 mg tablet Take 1 tablet by mouth at bedtime as needed. naproxen (NAPROSYN) 500 mg tablet Take 1 tablet by mouth twice daily as needed (for pain/inflammation). Take with food. (Patient taking differently: Take 250 mg by mouth twice daily as needed (for pain/inflammation). Take with food.) ketotifen fumarate (ZADITOR) 0.025 % (0.035 %) ophthalmic solution Use 1 Drop in both eyes twice daily. As needed. escitalopram oxalate (LEXAPRO) 20 mg tablet Take 1 tablet by mouth once daily. fluticasone (FLONASE) 50 mcg/actuation nasal spray Use 2 Sprays in each nostril once daily. loratadine (CLARITIN) 10 mg tablet Take 1 tablet by mouth once daily. Hydrocortisone Acetate 1 % crea Apply 1 application to affected area twice daily. (Patient taking differently: Apply 1 application to affected area as needed.) Multivitamin capsule Take 1 capsule by mouth once daily. albuterol HFA (PROAIR HFA) 90 mcg/actuation inhaler Inhale 2 Puffs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 Complaint: [] Abdominal pain History of Present Illness: The patient is a 37 F [] complaining of abdominal pain in the epigastric area. Reports nausea denies vomiting denies loose stool. Patient has an unusual affect and has a slight delay in answering simple questions. Patient reports noncompliance with her psychiatric medications in the last 5 months. Patient reports she is being treated clinically for a hiatal hernia although she does not have a definitive diagnosis of this. Denies possibility of . Physical Examination: [] Afebrile, vital signs stable. 37-year-old female no acute distress. Cardiovascular exam is regular rate and rhythm. Lungs are clear to auscultation. Abdomen is soft with mild epigastric tenderness. No guarding or rebound. Remainder of exam is unremarkable. Test Results: [] CBC, BMP, LFTs within normal limits. Lipase normal. HCG serum negative. CT abdomen/pelvis with IV contrast was negative. Emergency Department Course and Treatment: [] Given intravenous Zofran, fentanyl, normal saline bolus. On serial exam patient had improvement of symptoms. Treatment Plan: [] Follow-up with PCP. Disposition: [] Discharge, stable. Impression: [] Abdominal pain, unknown etiology This note was generated with Bedloo dictation software. It may contain incorrect words, spelling, and punctuation that were not noted in review of the chart prior to signing ED Disposition - Plan for ED Patient: Disposition: Home or Assisted Living Chief Complaint: Abd Pain Instructions: ED Abdominal Pain Unkn Cause Referrals: Samantha Shields [Primary Care Provider] - What to do if you have Problems For any increased pain, shortness of breath, bleeding, nausea or vomiting, chest pain, or any unexpected problems, contact your Primary Care Provider. Call [facility] ([phone]) or report to the closest Emergency Room. Call 911 if necessary. 01/13/18 5010 <Electronically signed by Tameka Beckman DO> Date Tameka Beckman DO Cosigner Signature (If Indicated): Date CC: [facility] DISCHARGE INSTRUCTION Observed: 01/13/2018 Status: F Source: [place] 11:13 PM [facility] REPOSITORY [facility] Medical Records Department [address] [place] [address] Discharge Instruction 01/13/18 2311 MR#: [id number] Acct: [id number] Name: ANGELICA ANDUJAR Rep #: [id number] : 1980 37 From: Tameka Beckman DO PCP: SAMANTHA BEJARANO Status: REG ER ED Disposition - Plan for ED Patient: Disposition: Home or Assisted Living Chief Complaint: Abd Pain Instructions: ED Abdominal Pain Unkn Cause Referrals: Katharina Bejarano,Samantha Hood [Primary Care Provider] - What to do if you have Problems For any increased pain, shortness of breath, bleeding, nausea or vomiting, chest pain, or any unexpected problems, contact your Primary Care Provider. Call [facility] ([phone]) or report to the closest Emergency Room. Call 911 if necessary. 01/13/18 5263 <Electronically signed by Tameka Beckman DO> Date Tameka Beckman DO Cosigner Signature (If Indicated): Date CC: SAMANTHA BEJARANO CBC W/DIFF, AUTOMATED Collected: 01/13/2018 Status: F Source: [place] 9:30 PM [facility] REPOSITORY TYPE CODE TESTS RESULT OUT OF RANGE REFERENCE UNITS LAB L100.1000 4.4-11.0 K/mm3 Normal WBC 8.7 LAB L100.1200 4.2-5.4 M/mm3 Normal RBC 4.62 LAB L100.1300 12.0-15.0 g/dl Normal HGB 13.2 LAB L100.1400 37-47 % Normal HCT 40.1 LAB L100.1500 81-99 fL Normal MCV 86.8 LAB L100.1600 27.0-32.0 pg Normal MCH 28.6 LAB L100.1700 32-36 g/gl Normal MCHC 32.9 LAB L100.1810 11.6-14.6 % Normal RDW CV 12.8 LAB L100.1820 35.1-43.9 fl Normal RDW SD 41.0 LAB L100.1900 150-450 K/mm3 Normal PLT 218 LAB L100.2000 6.2-12.0 fl Normal MPV 10.5 LAB L100.2100 47-70 % Normal NEUT% 63.2 LAB L100.2200 19-41 % Normal LY% 26.0 LAB L100.2300 0-10 % Normal MONO% 7.6 LAB L100.2400 0-5 % Normal EO% 2.8 LAB L100.2500 0-1 % Normal BASO% 0.3 LAB L100.2550 0.0-0.9 % Normal IM GRAN % 0.100 Result Comment: IG% - Immature Granulocytes (promyelocytes, myelocytes and metamyelocytes) > 1% indicates that a LEFT SHIFT is Present. LAB L100.2620 2.0-7.7 X10 3/uL Normal Absolute Neut 5.5 LAB L100.2720 0.83-4.51 X10 3/ul Normal Absolute Lymph 2.25 Performed By: #### L100.0100 #### [facility] [place], [place], [address] COMPREHENSIVE METABOLIC Collected: 01/13/2018 Status: F Source: [facility] 9:30 PM [facility] REPOSITORY TYPE CODE TESTS RESULT OUT OF RANGE REFERENCE UNITS LAB L501.0100 74-106 mg/dL Normal GLU 77 Result Comment: Please note revised GLUCOSE reference range effective 2017. LAB L501.1000 7-18 mg/dL Normal BUN 15 LAB L501.1100 0.55-1.02 mg/dL Normal CREAT,SERUM 0.74 Result Comment: The validity of the calculated GFR AND GFRAA in patients over 70 years has not been determined. Clinical correlation is essential. LAB L501.1110 >60 mL/min Normal EST GFR 93 Result Comment: Non- GFR Calc LAB L501.1115 >60 mL/min Normal EST GFR - AA 112 Result Comment: GFR Calc LAB L501.1255 ml/min Normal Estimated CRCL 99.26 LAB L501.1300 10-20 RATIO High BUN/CRE 20.2 LAB L501.1500 6.4-8. g/dL Normal 2 T PROT 6.7 LAB L501.1800 3.2-5. g/dL Normal 0 ALB 3.6 LAB L501.1950 2.2-4. g/dL Normal 2 GLOB 3.1 LAB L501.2000 0.9-2. RATIO Normal 4 A/G 1.2 LAB L501.2200 8.5-10 mg/dL Normal .1 CA 8.6 LAB L501.4100 15-37 U/L Normal AST 21 LAB L501.4305 45-117 U/L Normal ALK P 63 LAB L501.4405 13-56 U/L Normal ALT 26 LAB L501.4600 0.20-1 mg/dL Normal .00 T BILI 0.50 LAB L501.5300 136-14 mmol/L Normal 5 NA 142 LAB L501.5600 3.5-5. mmol/L Normal 1 K 3.5 LAB L501.5900 98-107 mmol/L High CL 111 LAB L501.6100 21.0-3 mmol/L Normal 2.0 CO2 25.0 LAB L501.6200 5-15 Normal GAP 6 Performed By: #### L500.4050, L501.2450 #### [facility] [address] [place], [address] LIPASE Collected: 01/13/2018 Status: F Source: [place] 9:30 PM [facility] REPOSITORY TYPE CODE TESTS RESULT OUT OF RANGE REFERENCE UNITS LAB L501.2450 73-393 U/L Normal LIPASE 80 Performed By: #### L500.4050, L501.2450 #### [facility] [place], [address] ,SERUM,HCG QUALI. Collected: Status: F Source: [place] 01/13/2018 9:30 PM [facility] REPOSITORY TYPE CODE TESTS RESULT OUT OF REFERENCE UNITS RANGE LAB L700.7000 0-9 Nonpreg Negative Normal HCGSQUAL NEGATIVE LAB L700.6700 =>Qualitative mIU/mL Normal HCG Qual < 1 triggr Performed By: #### L700.6800 #### [facility] [address] [place], [address] ABDOMEN/PELVIS W IV CONT Observed: 01/13/2018 Status: F Source: [place] ONLY 9:19 PM [facility] REPOSITORY [facility] Imaging Services [address] [place] [address] Abdomen/Pelvis W IV Cont ONLY MR#: [id number] Acct: [id number] Name: ANGELICA ANDUJAR Rep #: [id number] : 1980 F 37 From: John Lincoln MD PCP: [facility] Status: REG ER Study: Abdomen/Pelvis W IV Cont ONLY Date of Exam: 01/13/18 Exam# [id number] Ordering Dr: Tameka Beckman DO STUDY: CT ABDOMEN AND PELVIS WITH CONTRAST REASON FOR EXAM: Female, 37 years old. Epigastric pain. Hiatal hernia. RADIATION DOSAGE (If Supplied By Facility): CTDIvol = ( 11.35 ) mGy, DLP = ( 936.02 ) mGycm TECHNIQUE: Transaxial images were obtained from the dome of the diaphragm to the symphysis pubis without oral contrast. 100 ml of Isovue 300 contrast was administered. Sagittal and coronal images were reconstructed. Individualized dose optimization techniques were used for this CT. COMPARISON: 10/25/2015. FINDINGS: The visualized lung bases are unremarkable. The visualized portions of the heart are within normal limits. There is decreased attenuation of the liver consistent with steatosis. There is hepatomegaly. Normal gallbladder and extrahepatic biliary system. Normal spleen. Normal pancreas. Normal bilateral adrenal glands. Normal right kidney. Normal left kidney. No definite renal or ureteral stones are seen. There is no hydronephrosis on either side. Evaluation of the GI tract is limited by absence of oral contrast. Cannot exclude stomach wall thickening. No dilated loops of bowel or evidence for obstruction. Cannot exclude segmental thickening of the gillette of the small or large bowel. Cannot exclude enteritis or colitis. Moderate diffuse fecal retention. Appendix within normal limits. Normal abdominal aorta. Normal inferior vena cava. Normal retroperitoneum. Normal urinary bladder. Normal visualized uterus. There is a 2.6 cm left ovarian cyst. Normal abdominal wall. Normal osseous structures. CT/Abdomen/Pelvis W IV Cont ONLY IMPRESSION: No definite acute abnormality. Electronically Signed: John Lincoln MD at 23:05 EDT , Service support , CC: Tameka Beckman DO; SAMANTHA HOOD [facility] Vault Mechanic: Signed CNCO Observed: 01/03/2018 Status: COMPLETED Source: [place] 12:00 AM [facility] [place] REPOSITORY Letter Text Angelica Andujar Allergy AND Clinical Immunology [facility] [address] [place] [address], [address] [place] [address] January 03, 2018 Dear Angelica Andujar, Below you will find a list of CPT codes that are used for allergy testing. We recommend that you call your health insurance plan prior to your appointment date to verify that these tests are covered. When contacting your insurance to inquire about coverage at our office, please be sure that the insurance is aware that this will be billed as a Hospital Outpatient Setting. The codes are as follows: CPT 14091 - Skin Testing - Percutaneous Allergen Extracts CPT 11621 - Skin Testing - Intradermal Allergen Extracts If you are scheduled for the following breathing tests: CPT 87402 - Spirometry - Pre-bronchodilator CPT 03687 - Spirometry - Post-bronchodilator CPT 73074 - Exhaled Nitric Oxide CPT 14534 - Penicillin Testing Your health insurance plan may also request a diagnosis code. These are as follows: J30.1- Allergic Rhinitis J31.0 - Chronic Rhinitis J45.909 - Asthma The health insurance plan will inform you if you have either a co-payment due or if there is a deductible. The co-payment will be due at the time of the visit. Also, please bring your current health plan insurance card so it can be verified and updated in our system. Sincerely, Department of Allergy AND Clinical Immunology [facility] Instructions for Your Appointment If you are currently taking any of the following medications that contain antihistamines, stop taking the medication 5 days prior to your appointment: Tomeka (fexofenadine) Clarinex (desloratadine) Claritin/Alavert (loratadine) Xyzal (levocetirizine) Zyrtec (cetirizine) Patanase (olopatadine hydrochloride) Atarax (hydroxyzine) Aller-Chlor/ChlorTabs (chlorpheniramine) Astelin nasal spray Astepro nasal spray Dymista nasal spray If you are taking Silenor (doxepin) or Elavil (amitriptyline), please stop 48 hours prior to appointment if prescribing physician allows. You may use Benadryl up to 48 hours prior to your appointment. If you are taking antihistamines for hives or rash, you may continue taking the antihistamine and the doctor will consider alternative testing if necessary. Please bring a list of medications that you are taking. Your appointment may last 1-2 hours. EMERGENCY DEPARTMENT Observed: 12/15/2017 Status: F Source: [place] SUMMARY 1:41 AM [facility] [place] REPOSIT[facility] Medical Records Department [address] [place] [address] Emergency Department Summary 12/14/17 1852 MR#: [id number] Acct: [id number] Name: ANGELICA ANDUJAR Rep #: [id number] : 1980 37 From: Jose G Iqbal MD PCP: Mallorie Juares Status: DEP ER - ER Visit Summary Date of Service: 12/14/17 Chief Complaint: Headache and nasal pain History of Present Illness: The patient is a 37 F who goes to the [facility]. Patient reports that she has pain to the bridge of her nose that began yesterday. Is a sharp, throbbing pain that has now spread over the frontal area of her head. Zeta 10 severity. Is worsened by touching it, light, or cold periods relieved by nothing. She denies any trauma. No fall or MVA. Patient reports that she is currently on Bactrim for a sinus infection. She began this after being seen at the urgent care on December 07. Physical Examination: Vitals: Stable. Afebrile. General: Well-nourished and well-developed. Head: Normocephalic atraumatic. Neck: Supple, no lymphadenopathy. No JVD. Nontender. Cardiovascular: Regular rate and rhythm. No murmurs. Respiratory: No respiratory distress. Clear to auscultation bilaterally. Abdominal: Soft, nontender, nondistended, normal bowel sounds. No guarding, rebound, or peritoneal signs. Back: Nontender. Extremities: Nontender, no edema. Skin: Normal color, no rash. Neurologic: Alert and oriented 3. Cranial nerves II through XII are intact. Normal strength and sensation. Psych: Normal affect. Test Results: CT sinuses shows mucosal hypertrophy of the turbinates. Nasal septal deviation. Paranasal sinuses are clear. Emergency Department Course and Treatment: Patient had an IV placed. She is given a dose of Toradol, Compazine, and Benadryl IV. She is resting comfortably. Treatment Plan: I instructed the patient to stop her Bactrim as she does not have sinusitis. She will be placed on Flonase. Instructed to follow-up the [facility] in 1 week if not improving. Disposition: To home in improved and stable condition. Impression: 1. Cephalgia, acute. This note was generated with [employer] dictation software. It may contain incorrect words, spelling, and punctuation that were not noted in review of the chart prior to signing ED Disposition - Plan for ED Patient: Disposition: Home or Assisted Living Chief Complaint: Other, Pain/Inj Instructions: ED Cephalgia Unspecified Prescriptions: Fluticasone 0.05% [Flonase Nasal [place]] 1 spray NASAL DAILY #1 bottle Referrals: Mallorie Alexis, PROGRESS CLERK-C [Primary Care Provider] - 1 Week if not improving What to do if you have Problems For any increased pain, shortness of breath, bleeding, nausea or vomiting, chest pain, or any unexpected problems, contact your Primary Care Provider. Call [facility] ([phone]) or report to the closest Emergency Room. Call 911 if necessary. 12/15/17 0141 <Electronically signed by Jose G Iqbal MD> Date Jose G Iqbal MD Cosigner Signature (If Indicated): Date CC: Mallorie DE LA TORRE SINUS/FACIAL BONE Observed: 12/14/2017 Status: F Source: [place] 5:29 PM [facility] [place] RE[facility]IT[facility] Imaging Services [address] [place] [address] Sinus/Facial Bone MR#: [id number] Acct: [id number] Name: ANGELICA ANDUJAR Rep #: [id number] : 1980 F 37 From: Derrick James MD PCP: Mallorie Juares Status: REG ER Study: Sinus/Facial Bone Date of Exam: 12/14/17 Exam# [id number] Ordering Dr: Jose G Iqbal MD STUDY: CT MAXILLOFACIAL SINUSES REASON FOR EXAM: Female, 37 years old. Sinusitis. RADIATION DOSAGE (If Supplied By Facility): CTDIvol = ( 29.38 ) mGy, DLP = ( 385.84 ) mGycm TECHNIQUE: The patient was scanned in a multi detector CT scanner. High resolution axial imaging was performed without the administration of intravenous contrast material. Sagittal and coronal images were reconstructed. Individualized dose optimization techniques were used for this CT. COMPARISON: None. FINDINGS: FRONTAL SINUSES: Normal aeration, without mucosal inflammatory disease. ETHMOIDAL SINUSES: Normal aeration, without mucosal inflammatory disease. MAXILLARY SINUSES: Normal aeration, without mucosal inflammatory disease. SPHENOIDAL SINUSES: Normal aeration, without mucosal inflammatory disease. There is patency of the bilateral maxillary infundibuli with normal uncinate processes, ethmoid bullae, and hiatus semilunaris. Normal bilateral middle turbinates. There is hypertrophy of the bilateral inferior nasal turbinates. There is a right sided nasal septal deviation with a right sided nasal septal spur. There is narrowing of the bilateral nasal airways. The visualized osseous structures are normal. The visualized bilateral orbital contents are normal. There is enlargement of the tonsils and adenoids. CT/Sinus/Facial Bone IMPRESSION: The paranasal sinuses are clear. Mucosal hypertrophy of the turbinates. Nasal septal deviation. Narrowing of the nasal air passageway. Electronically Signed: Derrick James MD at 18:35 EDT , Service support , CC: Mallorie DE LA TORRE; Jose G Iqbal MD Vault Mechanic: Signed URINALYSIS, COMPLETE Collected: 12/14/2017 Status: F Source: [place] 4:00 PM [facility] [place] REPOSITORY Order Comment: How was Urine Obtained? CLEAN CATCH TYPE CODE TESTS RESULT OUT OF RANGE REFERENCE UNITS LAB L400.3000 Yellow COLOR Normal Yellow LAB L400.3050 Clear Normal CLARITY Sl. Cloudy LAB L400.3200 Normal mg/dl Normal GLUCOSE, UR Normal LAB L400.3300 Negative mg/dL Normal BILIRUBIN URINE Negative LAB L400.3400 Negative mg/dl Normal KETONE UR Negative LAB L400.3465 1.002-1.030 Normal SP.GR. DIPSTX 1.010 LAB L400.3550 5.0 - 8.0 pH UR Normal 6.0 LAB L400.3600 Negative mg/dl PROT Normal DIPSTX Negative LAB L400.3700 Normal mg/dl Normal UROBILI Normal LAB L400.3750 Negative Normal NITRITE UR Negative LAB L400.3780 Negative /ul Normal OCCULT BLOOD-UR Negative LAB L400.3800 Negative /ul LEUK Normal ESTERASE Negative LAB L400.4050 0-5 /hpf WBC 0 Normal SEEN LAB L400.4100 0-5 /hpf 0 Normal RBC-UA SEEN LAB L400.4150 5-10 /hpf SQUAM Normal EPI 0-5 SEEN LAB L400.4300 None Seen /hpf 0 Normal BACTERIA SEEN LAB L400.4350 <or=2+ /hpf 0 Normal MUCUS, URINE SEEN Performed By: #### L400.0001 #### [facility] [address] [place], [place], [address] PROGRESS Observed: 12/07/2017 Status: COMPLETED Source: [place] 11:56 AM [facility] REPOSITORY HNO ID: [id number] Author: Dina Patterson (Martha Cristina Service: (none) Author Type: Nurse Practitioner Type: Progress Notes Filed: 12/07/2017 12:36 PM Note Text: Subjective HPI Patient presents with: Sinus Infection,frequent/recurring x 2 weeks. Claritin and Flonase with minimal relief. Review of Systems Constitutional: Negative for chills, fever and malaise/fatigue. HENT: Positive for congestion and sinus pain. Negative for ear pain and sore throat. Eyes: Negative for discharge and redness. Respiratory: Positive for cough. Negative for hemoptysis, sputum production, shortness of breath and wheezing. Gastrointestinal: Negative for abdominal pain, diarrhea, nausea and vomiting. Skin: Negative for rash. Neurological: Positive for headaches. PAST MEDICAL HISTORY Diagnosis Date - 11/2009 - Anxiety - Asthma - Depression - Recurrent UTI - Seasonal allergies - STD (sexually transmitted disease) PAST SURGICAL HISTORY Procedure Laterality Date - COLONOSCOPY W/BX 03/02/11 - EGD W/O OR W/BRUSH/WASH 11/14/2012 EGD - MED INC ALL EX DRUG 11/2009 - PAST SURGICAL HISTORY OF WISDOM TEETH ALLERGIES Anti-Bacterial Cleansing [Benzethonium Chloride]; Bees; Benzalkonium Chloride; Doxycycline; Dust Mites; Flagyl [Metronidazole Hcl]; Hand Loan Servicing Officer [Ethyl Alcohol (Skin Cleanser)]; Iodine; Lactose Intolerance [Lactase]; Nisqually; Mold; Morphine; Penicillin; Prednisone; Seasonal Allergies; Singulair [Montelukast]; Sodium Lauryl Sulfate; Trees; Zofran [Ondansetron Hcl (Pf)]; Pet Dander [Other] MEDICATIONS CALCIUM CARBONATE/VITAMIN D3 (VITAMIN D-3 ORAL) Take by mouth. beclomethasone (QVAR) 80 mcg/actuation inhaler Inhale 2 Puffs as instructed twice daily. albuterol HFA (PROAIR HFA) 90 mcg/actuation inhaler Inhale 2 Puffs as instructed every 4 hours as needed for Wheezing/Shortness of Breath. famotidine (PEPCID) 20 mg tablet Take 1 tablet by mouth at bedtime as needed. naproxen (NAPROSYN) 500 mg tablet Take 1 tablet by mouth twice daily as needed (for pain/inflammation). Take with food. ketotifen fumarate (ZADITOR) 0.025 % (0.035 %) ophthalmic solution Use 1 Drop in both eyes twice daily. As needed. escitalopram oxalate (LEXAPRO) 20 mg tablet Take 1 tablet by mouth once daily. fluticasone (FLONASE) 50 mcg/actuation nasal spray Use 2 Sprays in each nostril once daily. loratadine (CLARITIN) 10 mg tablet Take 1 tablet by mouth once daily. olopatadine (PATANOL) 0.1 % ophthalmic solution Use 1 Drop in both eyes twice daily. Inhalational Spacing Device (BREATHERITE MDI SPACER) Spcr 1 Device one time only. Multivitamin capsule Take 1 capsule by mouth once daily. SHAROBEL 0.35 mg tablet Take 1 tablet by mouth once daily. VITAMIN D-3 2,000 unit cap benzonatate (TESSALON PERLE) 100 mg capsule Take 1 capsule by mouth three times daily as needed. sulfamethoxazole-trimethoprim (BACTRIM DS,SEPTRA DS) 800-160 mg per tablet MEDICATION, NON-DATABASE Depo-provera shot every 3 months. [facility] L.ACID/L.CASEI/B.BIF/B.FLOR/FOS (PROBIOTIC BLEND ORAL) Take by mouth. Hydrocortisone Acetate 1 % crea Apply 1 application to affected area twice daily. FAMILY HISTORY Problem Relation Age of Onset - Alcohol/Drug Mother - Arthritis Mother - Asthma Mother - Asthma Brother - Breast Cancer Maternal Aunt - Cancer Father LUNG CANCER - Cancer Mother CANCER - Emphysema Father - Hypertension Mother - Hypertension Brother - Stroke Mother Social History Substance Use Topics - Smoking status: Current Every Day Smoker Years: 3.00 Types: Cigarettes Last attempt to quit: 09/08/2015 - Smokeless tobacco: Never Used Comment: 2 weeks no cigarettes - Alcohol use Yes Comment: Seldom Objective Physical Exam Constitutional: She is well-developed, well-nourished, and in no distress. HENT: Head: Normocephalic. Right Ear: Tympanic membrane, external ear and ear canal normal. Left Ear: Tympanic membrane, external ear and ear canal normal. Nose: Rhinorrhea present. Right sinus exhibits no maxillary sinus tenderness and no frontal sinus tenderness. Left sinus exhibits no maxillary sinus tenderness and no frontal sinus tenderness. Mouth/Throat: Posterior oropharyngeal erythema (PND) present. Eyes: Conjunctivae are normal. Neck: Normal range of motion. Neck supple. Cardiovascular: Normal rate, regular rhythm and normal heart sounds. Pulmonary/Chest: Effort normal and breath sounds normal. No respiratory distress. She has no wheezes. Abdominal: Soft. She exhibits no distension. There is no tenderness. Lymphadenopathy: She has no cervical adenopathy. Skin: Skin is warm and dry. No rash noted. Nursing note and vitals reviewed. ASSESSMENT/PLAN: 1. Sinobronchitis - ICD9: 473.9, 490, ICD10: J32.9, J40 - Will begin treatment with Bactrim DS BID 10 days - The patient should also be given OTC decongestants prn, OTC cough and cold meds as needed, warm salt water gargles, throat lozenges and/or OTC throat spray as needed and nasal saline gtts and suction prn for the first 5-7 days of treatment. - Supportive care with plenty of fluids, rest, and analgesia prn. - Follow up in 3-5 days if symptoms persist or worsen. Prescription instructions reviewed with patient as applicable. Patient advised if symptoms do not improve or if symptoms worsen sooner, to contact their primary care physician. Potential red flag symptoms discussed with the patient. Reviewed appropriate action plan to take if red flag symptoms occur. Patient agreeable to treatment plan. Dina Cristina APRN.JOSE ROBERTO CNOV Observed: 12/07/2017 Status: COMPLETED Source: [place] 11:00 AM [facility] REPOSITORY Office Visit (WSTR) ANGELICA ANDUJAR ([id number]) 1980 F Date Time Provider Department 12/07/17 11:00 AM DINA CRISTINA (PROGRESS CLERK) WSTR During your visit today, we recorded the following information about you: Temperature Pulse Respiration Blood pressure 96.9 degrees 74/minute 14/minute 100/60 Weight 90.7 kg Dina Cristina APRN.MOBILE EQUIPMENT SERVICER 12/07/2017 12:36 PM Signed Subjective HPI Patient presents with: Sinus Infection,frequent/recurring x 2 weeks. Claritin and Flonase with minimal relief. Review of Systems Constitutional: Negative for chills, fever and malaise/fatigue. HENT: Positive for congestion and sinus pain. Negative for ear pain and sore throat. Eyes: Negative for discharge and redness. Respiratory: Positive for cough. Negative for hemoptysis, sputum production, shortness of breath and wheezing. Gastrointestinal: Negative for abdominal pain, diarrhea, nausea and vomiting. Skin: Negative for rash. Neurological: Positive for headaches. PAST MEDICAL HISTORY Diagnosis Date - 11/2009 - Anxiety - Asthma - Depression - Recurrent UTI - Seasonal allergies - STD (sexually transmitted disease) PAST SURGICAL HISTORY Procedure Laterality Date - COLONOSCOPY W/BX 03/02/11 - EGD W/O OR W/BRUSH/WASH 11/14/2012 EGD - MED INC ALL EX DRUG 11/2009 - PAST SURGICAL HISTORY OF WISDOM TEETH ALLERGIES Anti-Bacterial Cleansing [Benzethonium Chloride]; Bees; Benzalkonium Chloride; Doxycycline; Dust Mites; Flagyl [Metronidazole Hcl]; Hand Loan Servicing Officer [Ethyl Alcohol (Skin Cleanser)]; Iodine; Lactose Intolerance [Lactase]; Nisqually; Mold; Morphine; Penicillin; Prednisone; Seasonal Allergies; Singulair [Montelukast]; Sodium Lauryl Sulfate; Trees; Zofran [Ondansetron Hcl (Pf)]; Pet Dander [Other] MEDICATIONS CALCIUM CARBONATE/VITAMIN D3 (VITAMIN D-3 ORAL) Take by mouth. beclomethasone (QVAR) 80 mcg/actuation inhaler Inhale 2 Puffs as instructed twice daily. albuterol HFA (PROAIR HFA) 90 mcg/actuation inhaler Inhale 2 Puffs as instructed every 4 hours as needed for Wheezing/Shortness of Breath. famotidine (PEPCID) 20 mg tablet Take 1 tablet by mouth at bedtime as needed. naproxen (NAPROSYN) 500 mg tablet Take 1 tablet by mouth twice daily as needed (for pain/inflammation). Take with food. ketotifen fumarate (ZADITOR) 0.025 % (0.035 %) ophthalmic solution Use 1 Drop in both eyes twice daily. As needed. escitalopram oxalate (LEXAPRO) 20 mg tablet Take 1 tablet by mouth once daily. fluticasone (FLONASE) 50 mcg/actuation nasal spray Use 2 Sprays in each nostril once daily. loratadine (CLARITIN) 10 mg tablet Take 1 tablet by mouth once daily. olopatadine (PATANOL) 0.1 % ophthalmic solution Use 1 Drop in both eyes twice daily. Inhalational Spacing Device (BREATHERITE MDI SPACER) Spcr 1 Device one time only. Multivitamin capsule Take 1 capsule by mouth once daily. SHAROBEL 0.35 mg tablet Take 1 tablet by mouth once daily. VITAMIN D-3 2,000 unit cap benzonatate (TESSALON PERLE) 100 mg capsule Take 1 capsule by mouth three times daily as needed. sulfamethoxazole-trimethoprim (BACTRIM DS,SEPTRA DS) 800-160 mg per tablet MEDICATION, NON-DATABASE Depo-provera shot every 3 months. [facility] L.ACID/L.CASEI/B.BIF/B.FLOR/FOS (PROBIOTIC BLEND ORAL) Take by mouth. Hydrocortisone Acetate 1 % crea Apply 1 application to affected area twice daily. FAMILY HISTORY Problem Relation Age of Onset - Alcohol/Drug Mother - Arthritis Mother - Asthma Mother - Asthma Brother - Breast Cancer Maternal Aunt - Cancer Father LUNG CANCER - Cancer Mother CANCER - Emphysema Father - Hypertension Mother - Hypertension Brother - Stroke Mother Social History Substance Use Topics - Smoking status: Current Every Day Smoker Years: 3.00 Types: Cigarettes Last attempt to quit: 09/08/2015 - Smokeless tobacco: Never Used Comment: 2 weeks no cigarettes - Alcohol use Yes Comment: Seldom Objective Physical Exam Constitutional: She is well-developed, well-nourished, and in no distress. HENT: Head: Normocephalic. Right Ear: Tympanic membrane, external ear and ear canal normal. Left Ear: Tympanic membrane, external ear and ear canal normal. Nose: Rhinorrhea present. Right sinus exhibits no maxillary sinus tenderness and no frontal sinus tenderness. Left sinus exhibits no maxillary sinus tenderness and no frontal sinus tenderness. Mouth/Throat: Posterior oropharyngeal erythema (PND) present. Eyes: Conjunctivae are normal. Neck: Normal range of motion. Neck supple. Cardiovascular: Normal rate, regular rhythm and normal heart sounds. Pulmonary/Chest: Effort normal and breath sounds normal. No respiratory distress. She has no wheezes. Abdominal: Soft. She exhibits no distension. There is no tenderness. Lymphadenopathy: She has no cervical adenopathy. Skin: Skin is warm and dry. No rash noted. Nursing note and vitals reviewed. ASSESSMENT/PLAN: 1. Sinobronchitis - ICD9: 473.9, 490, ICD10: J32.9, J40 - Will begin treatment with Bactrim DS BID 10 days - The patient should also be given OTC decongestants prn, OTC cough and cold meds as needed, warm salt water gargles, throat lozenges and/or OTC throat spray as needed and nasal saline gtts and suction prn for the first 5-7 days of treatment. - Supportive care with plenty of fluids, rest, and analgesia prn. - Follow up in 3-5 days if symptoms persist or worsen. Prescription instructions reviewed with patient as applicable. Patient advised if symptoms do not improve or if symptoms worsen sooner, to contact their primary care physician. Potential red flag symptoms discussed with the patient. Reviewed appropriate action plan to take if red flag symptoms occur. Patient agreeable to treatment plan. Dina Cristina APRN.JOSE ROBERTO Cristina APRN.CNP 12/07/2017 12:06 PM Signed Each of us has four paired cavities (spaces) in our head that are connected to the nose by narrow channels. These cavities, known as sinuses, produce a thin mucus that drains out of the channels of the nose. Normally, sinuses are filled with air. But when sinuses become blocked and filled with fluid, bacteria can grow and cause an infection (sinusitis). Conditions that cause sinus blockage include the common cold, allergic rhinitis (swelling of the lining of the nose due to allergies), nasal polyps (small growths in the lining of the nose), or deviated septum (a shift in the nasal cavity). Allergies such as hay fever can also cause swelling and poor drainage of the sinuses. If you have symptoms that involve the sinuses, it may be difficult to tell if you have sinusitis, a cold, or a nasal allergy. This article will describe the symptoms, diagnosis, and treatment of sinusitis, and how to distinguish sinusitis from a cold or nasal allergy. What is sinusitis? Sinusitis is an inflammation, or swelling, of the tissue lining the sinuses. There are two types of sinusitis: Acute sinusitis: a sudden onset of cold symptoms such as runny nose, stuffy nose, and facial pain that does not go away after 7-10 days. It responds well to antibiotics and decongestants. Chronic sinusitis: characterized by nasal congestion, drainage, facial pain/pressure, and decreased sense of smell for at least 12 weeks. Who gets sinusitis? About 37 million Americans suffer from at least one episode of sinusitis each year. People who have the following conditions have a higher risk of sinusitis: Nasal mucus membrane swelling, as from a common cold Blockage of drainage ducts Structure differences that narrow the drainage ducts Conditions that result in an increased risk of infection In children, common environmental factors that contribute to sinusitis include allergies, illness from other children at day care or school, pacifiers, bottle drinking while lying on the back, and smoke in the environment. In adults, the contributing factors are most frequently infections, allergies, and smoking. What are the signs and symptoms of acute sinusitis? The primary symptoms of acute sinusitis include: Facial pain/pressure Nasal stuffiness Nasal discharge Loss of smell Cough/congestion Additional symptoms may include: Fever Bad breath Fatigue Dental pain Acute sinusitis can last four weeks or more. This condition may be diagnosed when a person has two or more symptoms and/or the presence of thick, green, or yellow nasal discharge. What are the signs and symptoms of chronic sinusitis? People with chronic sinusitis may have the following symptoms for 12 weeks or more: Facial congestion/fullness A nasal obstruction/blockage Pus in the nasal cavity Fever Nasal discharge/discolored postnasal drainage Additional symptoms may include: Headaches Bad breath Fatigue Dental pain Thick nasal discharge How is sinusitis treated? Acute sinusitis. If you have a simple sinusitis infection, your health care provider may recommend treatment with decongestants like Sudafed and steam inhalations alone, as most sinusitis is viral. Antibiotics are generally needed for more seriously ill patients. If antibiotics are administered, they are given for 10 to 14 days. With treatment, the symptoms usually disappear and antibiotics are no longer required. Oral and topical decongestants may be prescribed to alleviate the symptoms. Use of prescription intranasal steroid sprays might be effective in controlling symptoms. However, non-prescription drops or sprays should not be used beyond their recommended period--usually four to five days--or they may actually increase congestion. Chronic sinusitis. Warm moist air may alleviate sinus congestion. Using a vaporizer or inhaling steam from a beckman of boiling water (removed from heat) may also help. Warm compresses are useful to relieve pain in the nose and sinuses. Saline nose drops are also safe for home use. Nonprescription drops or sprays might be effective in controlling symptoms; however, they should not be used beyond their recommended period of time. Nasal steroid sprays that shrink swollen membranes of the nose are beneficial. Antibiotics may also be prescribed. Avoidance of triggers is important. Allergies should be controlled and irritants, such as smoke, should be avoided. Referring Provider: SELF [[id number]] Allergies As of Date: 12/07/2017 Noted Allergy Reaction ANTI-BACTERIAL CLEANSING (BENZETH*10/26/2012 2 - Rash BEES 07/16/2010 16 - Unknown Comments: Listed on records from Samantha Hood BENZALKONIUM CHLORIDE 09/08/2012 14 - Other: See Comments Comments: Skin irritations DOXYCYCLINE 12/13/2012 8 - GI Upset Comments: stomach cramps DUST MITES 04/26/2012 16 - Unknown Comments: Dust mites and cockroaches FLAGYL (METRONIDAZOLE HCL) 06/20/2012 4 - Hives HAND LAWN CARE SPECIALIST (ETHYL ALCOHOL (SK*11/04/2009 2 - Rash Comments: PT HAS SENSITIVE SKIN. O.K. FOR MEDICAL PROFESSIONAL TO USE HAND LAWN CARE SPECIALIST AND THEN TOUCH HER, BUT SHE HERSELF DOES NOT USE IT. IODINE 02/18/2011 2 - Rash LACTOSE INTOLERANCE (LACTASE) 11/04/2009 SAUK-SUIATTLE 12/07/2017 10 - Anaphylaxis MOLD 04/26/2012 16 - Unknown MORPHINE 03/02/2011 9 - Itching PENICILLIN 06/18/2016 16 - Unknown PREDNISONE 08/26/2012 14 - Other: See Comments Comments: Moodiness, restlessness, states feels like crap all over. SEASONAL ALLERGIES 11/04/2009 16 - Unknown Comments: Trees, grasses, weeds, ragweed. SINGULAIR (MONTELUKAST) 12/07/2017 16 - Unknown Comments: Possible rash SODIUM LAURYL SULFATE 09/30/2010 2 - Rash Comments: Skin irritation to scalp TREES 05/11/2012 14 - Other: See Comments ZOFRAN (ONDANSETRON HCL (PF)) 03/02/2011 14 - Other: See Comments Comments: Zofran causes cramping and constipation pet dander [Other] 10/20/2011 16 - Unknown Comments: Cat, Dog, Horse Date Reviewed: 12/07/2017 Reviewed by: Geni Booker Ma - Fully Assessed Reason for Visit: Sinus Infection,frequent/recurring [1167] Primary Visit Diagnosis:Sinobronchitis [J32.9, J40] Order(s):benzonatate (TESSALON PERLE) 100 mg capsuleTake 1 capsule by mouth three times daily as needed for up to 15 days.Disp: 30 capsuleRfl: 0 sulfamethoxazole-trimethoprim (BACTRIM DS) 800-160 mg per tabletTake 1 tablet by mouth twice daily for 10 days.Disp: 20 tabletRfl: 0 Prescriptions as of 12/07/2017 Sig: VITAMIN D-3 ORAL Take by mouth. BECLOMETHASONE DIPROPIONATE 8* Inhale 2 Puffs as instructed * ALBUTEROL SULFATE HFA 90 MCG/* Inhale 2 Puffs as instructed * FAMOTIDINE 20 MG TABLET Take 1 tablet by mouth at bed* NAPROXEN 500 MG TABLET Take 1 tablet by mouth twice * Patient taking differently: Take 250 mg by mouth twice da* KETOTIFEN 0.025 % (0.035 %) E* Use 1 Drop in both eyes twice* ESCITALOPRAM 20 MG TABLET Take 1 tablet by mouth once d* FLUTICASONE 50 MCG/ACTUATION * Use 2 Sprays in each nostril * LORATADINE 10 MG TABLET Take 1 tablet by mouth once d* OLOPATADINE 0.1 % EYE DROPS Use 1 Drop in both eyes twice* INHALATIONAL SPACING DEVICE 1 Device one time only. MULTIVITAMIN CAPSULE Take 1 capsule by mouth once * BENZONATATE 100 MG CAPSULE Take 1 capsule by mouth three* SULFAMETHOXAZOLE 800 MG-TRIME* Take 1 tablet by mouth twice * SHAROBEL 0.35 MG TABLET Take 1 tablet by mouth once d* VITAMIN D3 2,000 UNIT CAPSULE MEDICATION, NON-DATABASE Depo-provera shot every 3 mon* PROBIOTIC BLEND ORAL Take by mouth. HYDROCORTISONE ACETATE 1 % TO* Apply 1 application to affect* Patient taking differently: Apply 1 application to affect* Medication notes this encounter MEDICATION, NON-DATABASE >> Geni Booker Ma 12/07/2017 11:21 AM >> GENI BOOKER MA TueDec 07, 2017 11:21 AM done Problem List As Of Date 12/07/2017 Noted Resolved Frequency of urination [R35.0] INVALID FOR*10/20/2011 Pelvic pain in female [R10.2] INVALID FOR*10/20/2011 Microscopic hematuria [R31.29] INVALID FOR*09/15/2016 Other hammer toe (acquired) [M20.40] INVALID FOR*10/20/2011 Hallux valgus (acquired) [M20.10] INVALID FOR* Internal hemorrhoids without mention of complic*INVALID FOR*10/20/2011 Diarrhea [R19.7] INVALID FOR*10/20/2011 Abdominal pain, generalized [R10.84] INVALID FOR*10/20/2011 Low back pain [M54.5] INVALID FOR* Closed fracture of metatarsal bone(s) [S92.309A]INVALID FOR*09/15/2016 Tendonitis [M77.9] INVALID FOR*09/15/2016 Acne Vulgaris: Grade III Inflammatory and Comed*INVALID FOR*09/15/2016 Other seborrheic dermatitis [L21.8] INVALID FOR*09/15/2016 History of cold-induced urticaria [Z87.2] INVALID FOR* Seborrhea [L21.9] INVALID FOR*09/15/2016 Eczematous dermatitis [L30.9] INVALID FOR*09/15/2016 Xerosis cutis [L85.3] INVALID FOR*09/15/2016 Backache, unspecified [M54.9] INVALID FOR*09/15/2016 Asthma [J45.909] INVALID FOR* Attention-deficit hyperactivity disorder, predo*INVALID FOR* Pain disorder with psychological component [F45*INVALID FOR* Adjustment disorder with mixed anxiety and depr*INVALID FOR* Chronic midline low back pain without sciatica *INVALID FOR* Cervicalgia [M54.2] INVALID FOR* Degeneration of cervical intervertebral disc [M*INVALID FOR* Other instructions from your clinician: Each of us has four paired cavities (spaces) in our head that are connected to the nose by narrow channels. These cavities, known as sinuses, produce a thin mucus that drains out of the channels of the nose. Normally, sinuses are filled with air. But when sinuses become blocked and filled with fluid, bacteria can grow and cause an infection (sinusitis). Conditions that cause sinus blockage include the common cold, allergic rhinitis (swelling of the lining of the nose due to allergies), nasal polyps (small growths in the lining of the nose), or deviated septum (a shift in the nasal cavity). Allergies such as hay fever can also cause swelling and poor drainage of the sinuses. If you have symptoms that involve the sinuses, it may be difficult to tell if you have sinusitis, a cold, or a nasal allergy. This article will describe the symptoms, diagnosis, and treatment of sinusitis, and how to distinguish sinusitis from a cold or nasal allergy. What is sinusitis? Sinusitis is an inflammation, or swelling, of the tissue lining the sinuses. There are two types of sinusitis: Acute sinusitis: a sudden onset of cold symptoms such as runny nose, stuffy nose, and facial pain that does not go away after 7-10 days. It responds well to antibiotics and decongestants. Chronic sinusitis: characterized by nasal congestion, drainage, facial pain/pressure, and decreased sense of smell for at least 12 weeks. Who gets sinusitis? About 37 million Americans suffer from at least one episode of sinusitis each year. People who have the following conditions have a higher risk of sinusitis: Nasal mucus membrane swelling, as from a common cold Blockage of drainage ducts Structure differences that narrow the drainage ducts Conditions that result in an increased risk of infection In children, common environmental factors that contribute to sinusitis include allergies, illness from other children at day care or school, pacifiers, bottle drinking while lying on the back, and smoke in the environment. In adults, the contributing factors are most frequently infections, allergies, and smoking. What are the signs and symptoms of acute sinusitis? The primary symptoms of acute sinusitis include: Facial pain/pressure Nasal stuffiness Nasal discharge Loss of smell Cough/congestion Additional symptoms may include: Fever Bad breath Fatigue Dental pain Acute sinusitis can last four weeks or more. This condition may be diagnosed when a person has two or more symptoms and/or the presence of thick, green, or yellow nasal discharge. What are the signs and symptoms of chronic sinusitis? People with chronic sinusitis may have the following symptoms for 12 weeks or more: Facial congestion/fullness A nasal obstruction/blockage Pus in the nasal cavity Fever Nasal discharge/discolored postnasal drainage Additional symptoms may include: Headaches Bad breath Fatigue Dental pain Thick nasal discharge How is sinusitis treated? Acute sinusitis. If you have a simple sinusitis infection, your health care provider may recommend treatment with decongestants like Sudafed and steam inhalations alone, as most sinusitis is viral. Antibiotics are generally needed for more seriously ill patients. If antibiotics are administered, they are given for 10 to 14 days. With treatment, the symptoms usually disappear and antibiotics are no longer required. Oral and topical decongestants may be prescribed to alleviate the symptoms. Use of prescription intranasal steroid sprays might be effective in controlling symptoms. However, non-prescription drops or sprays should not be used beyond their recommended period--usually four to five days--or they may actually increase congestion. Chronic sinusitis. Warm moist air may alleviate sinus congestion. Using a vaporizer or inhaling steam from a beckman of boiling water (removed from heat) may also help. Warm compresses are useful to relieve pain in the nose and sinuses. Saline nose drops are also safe for home use. Nonprescription drops or sprays might be effective in controlling symptoms; however, they should not be used beyond their recommended period of time. Nasal steroid sprays that shrink swollen membranes of the nose are beneficial. Antibiotics may also be prescribed. Avoidance of triggers is important. Allergies should be controlled and irritants, such as smoke, should be avoided. Prescriptions ordered this encounter Disp Refills Start End BENZONATATE 100 MG CAPSULE 30 c* 0 12/07/2017 12/22/2017 Route: ORAL Sig: Take 1 capsule by mouth three times daily as needed for up to 15 days. SULFAMETHOXAZOLE 800 MG-TRIMETHOPRIM* 20 t* 0 12/07/2017 12/17/2017 Cmt: Ok to give generic equivalent Route: ORAL Sig: Take 1 tablet by mouth twice daily for 10 days. Medications Discontinued During This Encounter benzonatate (TESSALON PERLE) 100 mg * 30 c* 0 03/30/2017 12/07/2017 Route: ORAL Sig: Take 1 capsule by mouth three times daily as needed. Disc: Reason for discontinue is not on file. sulfamethoxazole-trimethoprim (BACTR* 12/15/2016 12/07/2017 Class: Historical Med Sig: Disc: Reason for discontinue is not on file. benzonatate (TESSALON PERLE) 100 mg * 30 c* 0 12/22/2016 12/07/2017 Route: ORAL Sig: Take 1 capsule by mouth three times daily as needed for up to 15 days. Disc: Reason for discontinue is not on file. Disposition: Return if symptoms worsen or fail to improve. Follow-up and Disposition History Recorded Letter Text Dina Cristina APRN.[facility] Urgent Care [address] [facility] [address] Dept: [phone] 12/07/2017 Angelica Andujar [address] [facility] [address] [facility] [address] To Whom it May Concern: This is to certify that Angelica Andujar was seen at our office for medical care. Angelica may return to work on 12/08/2017. If you have any questions please feel free to call. Sincerely: Dina Cristina APRN.[facility] Encounter Status:Closed by DINA CRISTINA on 12/07/17 CNCO Observed: 11/15/2017 Status: COMPLETED Source: [place] 12:00 AM [facility] REPOSITORY Letter Text Angelica Andujar Allergy AND Clinical Immunology [facility] [address] [place] [address], [address] [place] [address] November 15, 2017 Dear Angelica Andujar, Below you will find a list of CPT codes that are used for allergy testing. We recommend that you call your health insurance plan prior to your appointment date to verify that these tests are covered. When contacting your insurance to inquire about coverage at our office, please be sure that the insurance is aware that this will be billed as a Hospital Outpatient Setting. The codes are as follows: CPT 02659 - Skin Testing - Percutaneous Allergen Extracts CPT 52340 - Skin Testing - Intradermal Allergen Extracts If you are scheduled for the following breathing tests: CPT 58089 - Spirometry - Pre-bronchodilator CPT 35076 - Spirometry - Post-bronchodilator CPT 79946 - Exhaled Nitric Oxide CPT 17773 - Penicillin Testing Your health insurance plan may also request a diagnosis code. These are as follows: J30.1- Allergic Rhinitis J31.0 - Chronic Rhinitis J45.909 - Asthma The health insurance plan will inform you if you have either a co-payment due or if there is a deductible. The co-payment will be due at the time of the visit. Also, please bring your current health plan insurance card so it can be verified and updated in our system. Sincerely, Department of Allergy AND Clinical Immunology [facility] Instructions for Your Appointment If you are currently taking any of the following medications that contain antihistamines, stop taking the medication 5 days prior to your appointment: Tomeka (fexofenadine) Clarinex (desloratadine) Claritin/Alavert (loratadine) Xyzal (levocetirizine) Zyrtec (cetirizine) Patanase (olopatadine hydrochloride) Atarax (hydroxyzine) Aller-Chlor/ChlorTabs (chlorpheniramine) Astelin nasal spray Astepro nasal spray Dymista nasal spray If you are taking Silenor (doxepin) or Elavil (amitriptyline), please stop 48 hours prior to appointment if prescribing physician allows. You may use Benadryl up to 48 hours prior to your appointment. If you are taking antihistamines for hives or rash, you may continue taking the antihistamine and the doctor will consider alternative testing if necessary. Please bring a list of medications that you are taking. Your appointment may last 1-2 hours. EMERGENCY DEPARTMENT Observed: 10/27/2017 Status: F Source: [place] SUMMARY 3:46 PM [facility] REPOSITORY [facility] Medical Records Department [address] [place] [address] Emergency Department Summary 10/27/17 1341 MR#: [id number] Acct: [id number] Name: ANGELICA ANDUJAR C Rep #: [id number] : 1980 36 From: Main Bledsoe MD PCP: Mallorie Juares Status: DEP ER - ER Visit Summary Date of Service: 10/27/17 Chief Complaint: Nausea with bilateral flank pain and increased bowel movements but not diarrhea History of Present Illness: The patient is a 36 F history of depression and anxiety. Patient has never had any prior abdominal surgery. States that she has not felt well for last 4 days with a cough. Denies any shortness of breath. No hemoptysis. States that she is having bowel frequency but not diarrhea or melena. She denies any dysuria but thinks her urine may be cloudy. No vaginal bleeding or discharge. Her last menstrual period was within the last week. She denies any fever. She denies abdominal trauma. States that both flanks feeling comfortable. Physical Examination: Well-appearing young female. Vital signs are stable afebrile. Pulse ox 97% no hypoxia. She is in no acute distress. She does not look septic or toxic. H EENT exam unremarkable. Moist wheeze membranes. Posterior pharynx normal. Tympanic membranes normal. Neck nontender no lymphadenopathy. Trachea midline. Lungs clear to auscultation bilaterally. Heart is regular rate and rhythm no murmur. Abdomen is soft and nontender. Nondistended normal bowel sounds no peritoneal signs. The right upper right lower quadrants are unremarkable. No hernias or masses. Moving all 4 extremities. Neurovascularly intact. Calves without edema or cords. Neurologically awake alert without focal deficits. NIH is 0. Psychologically she seems depressed but not suicidal or homicidal. Test Results: Is normal no signs of infection or blood. Urine test negative. Emergency Department Course and Treatment: Patient looks well with very nondescript bilateral flank pain. Treatment Plan: Repeat exam the patient is doing very well at 1450 and will be discharged home. Patient did request a CAT scan which I explained to her she absolutely did not need it was not necessary. She can follow-up with her primary care physician. Disposition: Discharge Impression: Abdominal Pain uncertain etiology On chronic depression This note was generated with ImpactMediaation software. It may contain incorrect words, spelling, and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 HAS SENSITIVE SKIN. O.K. FOR MEDICAL PROFESSIONAL TO USE HAND LAWN CARE SPECIALIST AND THEN TOUCH HER, BUT SHE HERSELF DOES NOT USE IT. IODINE 02/18/2011 2 - Rash LACTOSE INTOLERANCE (LACTASE) 11/04/2009 MOLD 04/26/2012 16 - Unknown MORPHINE 03/02/2011 9 - Itching PENICILLIN 06/18/2016 16 - Unknown PREDNISONE 08/26/2012 14 - Other: See Comments Comments: Moodiness, restlessness, states feels like crap all over. SEASONAL ALLERGIES 11/04/2009 16 - Unknown Comments: Trees, grasses, weeds, ragweed. SODIUM LAURYL SULFATE 09/30/2010 2 - Rash Comments: Skin irritation to scalp TREES 05/11/2012 14 - Other: See Comments ZOFRAN (ONDANSETRON HCL (PF)) 03/02/2011 14 - Other: See Comments Comments: Zofran causes cramping and constipation pet dander [Other] 10/20/2011 16 - Unknown Comments: Cat, Dog, Horse Date Reviewed: 10/13/2016 Reviewed by: Maureen Edwards) Tristen - Fully Assessed Prescriptions as of 10/21/2016 Sig: BACLOFEN 10 MG TABLET Take 1 tablet by mouth once d* KETOTIFEN 0.025 % (0.035 %) E* Use 1 Drop in both eyes twice* ESCITALOPRAM 20 MG TABLET Take 1 tablet by mouth once d* FLUTICASONE 50 MCG/ACTUATION * Use 2 Sprays in each nostril * LORATADINE 10 MG TABLET Take 1 tablet by mouth once d* OLOPATADINE 0.1 % EYE DROPS Use 1 Drop in both eyes twice* X BECLOMETHASONE DIPROPIONATE 8* Inhale 2 Puffs as instructed * X ALBUTEROL SULFATE HFA 90 MCG/* Inhale 2 Puffs as instructed * X LORATADINE 10 MG CAPSULE Take 1 tablet by mouth once d* PROBIOTIC BLEND ORAL Take by mouth. X LACTOBACILLUS RHAMNOSUS GG 10* Take 1 capsule by mouth once * X ERYTHROMYCIN 2 % TOPICAL OINT* Apply 1 application to affect* X MEDICATION, NON-DATABASE control X ACETAMINOPHEN-DM ORAL Take by mouth. HYDROCORTISONE ACETATE 1 % TO* Apply 1 application to affect* Patient taking differently: Apply 1 application to affect* INHALATIONAL SPACING DEVICE 1 Device one time only. MULTIVITAMIN CAPSULE Take 1 capsule by mouth once * Progress Notes: Patricio Kingston PT 10/22/2016 12:14 AM Signed [facility] PHYSICAL THERAPY SPINE EVALUATION GENERAL RECORD INFORMATION CURRENT VISIT NUMBER: 1 of 12 visits per current plan of care ONSET:neck pain began 20 years ago, back pain began 15 years ago1st:10/21/16Cert Date:10/21/2016 THERAPISTS NAME: Patricio Kingston PT INSURANCE TYPE: Payor: [facility] MEDICAID / Plan: [facility] [employer] MEDICAID / Product Type: Medicaid / REFERRING PROVIDER: Duncan Norton MD PLAN OF CARE: 10/21/2016 Additional Plan of Care information: Physician certification request completed and sent to office for signature on 10/21/2016. Mechanism Of Injury: pt reports several work related incidents in the past but is unable to identify any specific cause of onset of symptoms in neck or back. Patient identified by name and date: Yes SUBJECTIVE: Angelica Andujar is a 35 year old female seen today for constant pain in neck and midline low back. She reports that onset is insidious and denies any specific cause of spine pain. She locates pain in both sides of her neck and midline from lower thoracic to lower lumbar region. She reports being seen by a PT at the [facility] and three different chiropractors without success. She requested pain management referral and was seen by Dr. Norton 10/13/2016. Dr. Norton recommended PT referral and some medication was ordered. Pain/Symptoms: Yes: Neck bilaterally; Intensity: 6/10 currently, 8/10 at worst, 6/10 at best. Pain is described as aching, stabbing, shooting. Duration of pain is constant but varies in intensity. Low back / Lumbar Spine midline; Intensity: 6/10 currently, at best and at worst. Pain is described as shooting, stabbing, throbbing. Duration of pain is constant. Pain is worse: Bending, lifting, prolonged positioning Pain is better: Sitting but changing positions frequently, sidelying Sleeping position: side lying right and side lying left Sleep affected by pain: Not affected by pain since she started medication from Dr. Norton Commenced as a result of: No apparent reason Symptoms at onset: Neck Back Cervical Specific: Dizziness: No Tinnitus: No Nausea: No Motion Sickness: No Previous Episodes: 0, just one large episode of back and neck pain for 15-20 years Year of first episode: 1996 Functional Limitations: bending, lifting, prolonged sitting, doing dishes, vacuuming and prolonged standing Patient's Prior Level of Function: Patient reported: Independent without limitations. 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 Occupation: [employer] at [employer] doing a variety of tasks assigned by job training specialist that is different each day. Social: Lives alone Patient Goals: strengthen core and make neck less stiff Patient Reported Outcome Measures: Oswestry See PT/OT Health Status below Intake Information: Prescription present. Unexplained Weight Loss: No. Bowel/Bladder Changes: No Previous treatment: Land PT for 3 visits at [facility] with exercise, Chiropractor and Pain meds [place] Assessment: No positive results upon screening. Relevant medical history/ comorbidities: asthma, depression, anxiety and pain disorder with psychological component Images/Procedures: Xrays: yes, IMPRESSION: cervical spine: No radiographic evidence of acute osseous ?pathology. Recent or major surgery: no OBJECTIVE MEASURES WITH LEVEL OF FUNCTION: Behavior: alert, oriented, cooperative and appropriate Vital Signs: Blood Pressure:120/90 mmHg Heart Rate:76 bpm SPO2: 98% POSTURE CERVICAL POSTURE Good LUMBAR POSTURE Good, Lordosis: normal Effect of sitting slouched: Worse Sitting erect: Better Function/Gait: Pt reports functional difficulties with crop pest control specialist, prolonged positioning, bending and lifting ROM: CERVICAL: Flexion: 81 degrees Extension: 33 degrees Sidebend Right: 45 degrees Sidebend Left: 36 degrees Rotation Right: 94 degrees Rotation Left: 67 degrees LUMBAR: Flexion: No limitation Extension: No limitation Sidebend Right: Normal Sidebend Left: Normal Rotation Right: Normal Rotation Left: Normal TEST MOVEMENTS: CERVICAL: pt had some generalized pain with AROM of cervical spine LUMBAR: no pain with AROM STRENGTH: The reported chronic nature of her spine symptoms, reported functional difficulties, postural deficits and diagnosis are all indications that she will benefit from increased core and especially postural strength. EXTREMITY ROM/FLEXIBILITY/JOINT MOBILITY: N/T Balance: N/T Appearance/palpation: unremarkable Reflexes: Not Tested Sensation: Not assessed Special tests: Not Tested Functional Performance Tests: None performed Education: Learning preferences: Explanation, Demonstration, Performance and Printed Materials Barriers:Desire and motivation and Emotions Learning/educational needs: Home Exercise Program Plan of care Posture Body mechanics Education provided: See Treatment Below Audience: Patient Method of education: Explanation, Demonstration, Performance and Printed Materials Response: Applied knowledge, Needs practice, Requires reinforcement and Verbalized understanding TREATMENT: Evaluation Therapeutic Exercise: *prone on elbows x3 minutes *seated cervical spine AROM for rotation 2x10 *seated B UT stretch 3x30 seconds with emphasis on proper form and intensity with stretches. *seated scapular retraction 2x10 with emphasis on postural correction and avoiding scapular elevation. Pt. was educated on the anatomy of affected area, possible source of symptoms and rationale for proposed treatment plan. Pt. was instructed on proper posture and body mechanics and their importance was emphasized. Pictures used to further clarify education provided. Handout provided on postural correction and proper body mechanics. Skilled Intervention: Patient was educated in proper exercise technique and purpose for exercises. Reviewed and educated patient on additions/changes for home exercise program as above (*) Skilled judgment was provided in selection of appropriate interventions. Provided written instruction for home exercise program to facilitate proper performance and compliance. Correct performance of therapeutic exercises was facilitated with verbal, visual and tactile cuing. Post Treatment Pain/Symptom(s): Pt reported feeling better after session. She reported that she had more energy, was more relaxed, less stiff and had less stress. PLAN OF CARE: Assessment: Angelica Andujar presents with the diagnosis of chronic spine pain in lumbar and cervical spines with degenerative changes but no osseus abnormalities have been identified. Patient presents with impairments of postural deficits, ROM deficits in cervical spine, core/postural weakness, pain and functional difficulties and will benefit from skilled therapy services to improve posture, postural strength, cervical spine AROM and decrease pain allowing for improvements with function. Clinical presentation is evolving and therefore complexity of decision making is moderate. Prognosis is Good due to current objective clinical presentation, good overall health status, within-session changes at evaluation and progress may be slow due to chronic nature of impairments and limited support system/ coping skills Goals for Episode of Care: created on 10/21/2016 through 12/02/2016. CERVICAL : Independent in a Home Exercise Program. Patient will decrease pain rating by 2 points to meet minimal clinical important difference for numeric pain rating scale. Restore pain free cervical ROM to WFL to allow for improved tolerance with crop pest control specialist. Stand with no aggravation of pain/symptoms. Sit without limitations, without pain/symptoms to allow for increased sitting tolerance. Patient will increase strength of core and postural muscles to WFL to allow for improve ability to maintain proper posture, restore normal mechanics and decrease pain. Patient will be able to tolerate bending, lifting, prolonged sitting, doing dishes, vacuuming and prolonged standing without increased symptoms. LUMBAR : Improve Modified Oswestry Pain Questionnaire (LBP) by 6 points (12%) to indicate a Minimal Clinical Important Difference. Planned Interventions, Frequency, and Duration: Follow up for two visit(s) per week for six weeks for Body Awareness Training, Body Mechanics, General Conditioning, HEP, Individual PT, Manual therapy, Neuromuscular re-education, Therapeutic activities, Therapeutic exercise and Traction Patient demonstrates good understanding of plan of care and treatment. The above goals and plan of care were discussed and agreed upon by patient/family. Billing: [facility]: Evaluation - Moderate Complexity (21821) Therapeutic Exercise (72763): 1:1 time: 20 minutes (1 unit: 8-22 mins) Total time: 50 minutes MICHEL Murray PT 09/30/2017 12:01 PM Signed [facility] PHYSICAL THERAPY DISCONTINUANCE OF CARE Plan of Care Period: No Data Recorded Last Visit Date: 10/21/16 Therapy Program: Patient did not return for follow up care as planned. Please refer to last visit note for interventions provided for this episode of care. Assessment: Unable to formally assess goal achievement due to non-compliance with therapy plan of care. Reason for Discontinuation of Care: Patient has not returned to therapy or scheduled additional follow-up appointments. Patricio Kingston, PT ALLERGIES ALLERGIES DATE TYPE / CODE NAME / CODE REACTION SEVERITY SOURCE Drug Penicillins/F0010 Unknown Unknown [place] 8 Allergy/817848432( 16063(RXNORM) [facility] SNOMED CT) Hospital Repository Drug Latex, Natural Rash Unknown [place] 8 Allergy/358890077( Rubber/[id number] [facility] SNOMED CT) (RXNORM) Hospital Repository Drug morphine/F2597310 Other Unknown [place] 8 Allergy/237352894( 45(RXNORM) [facility] SNOMED CT) Hospital Repository Drug prednisone/H37711 Other Unknown [place] 8 Allergy/369599931( 2164(RXNORM) [facility] SNOMED CT) Hospital Repository Drug influenza virus Other Unknown [place] 8 Allergy/681087895( vaccine, [facility] SNOMED CT) specific/[id number] Hospital 29(RXNORM) Repository Miscellaneous ANTIBACTERIAL Hives Unknown [place] 8 Allergy/909638012( SOAP [facility] SNOMED CT) Hospital Repository Miscellaneous HAND LAWN CARE SPECIALIST Hives Unknown [place] 8 Allergy/172367393( [facility] Hospital Repository Miscellaneous SEASONAL Other Unknown [place] 8 Allergy/236374679( ALLERGIES [facility] SNOMED CT) Hospital Repository Drug montelukast/F0060 Rash Unknown [place] 8 Allergy/507243919( 07491(RXNORM) [facility] Hospital Repository Drug clindamycin/F0060 Nausea/Vom/Diar Unknown [place] 8 Allergy/098644292( 47527(RXNORM) [facility] Hospital Repository Drug metronidazole/F00 Hives Unknown [place] 8 Allergy/457720980( 9410746(RXNORM) [facility] Hospital Repository Drug meloxicam/I194275 Other Unknown [place] 8 Allergy/416792459( 272(RXNORM) [facility] Hospital Repository DRUG MELOXICAM UNKNOWN [place] INGREDI/083292793( Clinic Main SNOMED CT) [place] Repository DRUG METRONIDAZOLE HIVES [place] 8 INGREDI/432227287( Clinic Main SNOMED CT) [place] Repository DRUG CLINDAMYCIN GI UPSET [place] INGREDI/346478164( Clinic Main SNOMED CT) [place] Repository Drug LATEX, NATURAL RASH [place] 8 Class/857179558(SN RUBBER Clinic Main OMED CT) [place] Repository DRUG SAUK-SUIATTLE ANAPHYLAXIS [place] 8 INGREDI/091273478( Clinic Main SNOMED CT) [place] Repository DRUG MONTELUKAST UNKNOWN [place] 8 INGREDI/128556101( Clinic Main SNOMED CT) [place] Repository DRUG PENICILLIN UNKNOWN [place] 6 INGREDI/472887044( Clinic Main SNOMED CT) [place] Repository DRUG DOXYCYCLINE GI UPSET [place] 3 INGREDI/847475542( Clinic Main SNOMED CT) [place] Repository DRUG BENZETHONIUM RASH [place] 3 INGREDI/235248228( CHLORIDE Clinic Main SNOMED CT) [place] Repository DRUG BENZALKONIUM OTHER: SEE C [place] 3 INGREDI/564024145( CHLORIDE Clinic Main SNOMED CT) [place] Repository DRUG PREDNISONE OTHER: SEE C [place] 2 INGREDI/600256390( Clinic Main SNOMED CT) [place] Repository DRUG METRONIDAZOLE HCL HIVES [place] 2 INGREDI/023366304( Clinic Main SNOMED CT) [place] Repository Environ/875605968( TREES OTHER: SEE C [place] [address]) Clinic Main [place] Repository Environ/155393760( DUST MITES UNKNOWN [place] [address] Clinic Main [place] Repository DRUG MOLD UNKNOWN [place] 2 INGREDI/606096296( Clinic Main SNOMED CT) [place] Repository Miscellaneous OTHER UNKNOWN [place] 2 Allergy/189223996( [facility] Main SNOMED CT) [place] Repository DRUG MORPHINE ITCHING [place] 1 INGREDI/410651430( Clinic Main SNOMED CT) [place] Repository DRUG/913684127(SNO ONDANSETRON HCL OTHER: SEE C [place] [address]) (PF) Clinic Main [place] Repository DRUG IODINE RASH [place] 1 INGREDI/903917676( [facility] Main SNOMED CT) [place] Repository DRUG SODIUM LAURYL RASH [place] 1 INGREDI/807958642( SULFATE Clinic Main SNOMED [facility]) [place] Repository Environ/949194932( BEES UNKNOWN [place] [address]) Clinic Main [place] Repository DRUG/149578864(SNO ETHYL ALCOHOL RASH [place] [address]) (SKIN CLEANSER) Clinic Main [place] Repository DRUG LACTASE [place] 0 INGREDI/814014960( [facility] Main SNOMED CT) [place] Repository Environ/367616870( SEASONAL UNKNOWN [place] [address]) ALLERGIES Clinic Main [place] Repository ENCOUNTERS ENCOUNTERS ADMIT/DISCHARGE ACCOUNT NUMBER ADMITTING ENCOUNTER LOCATION SOURCE CLASS 08/09/2018/08/09/20 [id number] Emergency [address] ding:ED Repository 08/06/2018/08/07/20 [id number] Emergency [address] ding:ED Repository 08/04/2018/08/07/20 [id number] Ambulatory [address] Main [place] Repository 07/29/2018/07/29/20 [id number] Emergency [address] ding:ED Repository 07/29/2018/07/29/20 [id number] Emergency [address] ding:ED Repository 07/25/2018/07/25/20 [id number] Emergency [place] [address] ding:ED Repository 07/24/2018/07/24/20 [id number] Emergency [place] ding:ED Repository 07/24/2018 [id number] Ambulatory [facility] ding:CT Repository 07/24/2018/07/24/20 [id number] Emergency [place] ding:ED Repository 07/19/2018/07/20/20 [id number] Ambulatory [address] Repository 07/13/2018/07/13/20 [id number] Ambulatory [address] Repository 07/13/2018/07/13/20 [id number] Emergency [place] ding:[place] Repository 07/12/2018/07/12/20 [id number] Ambulatory BMSBuilding: [place] 18 [facility] Repository 06/19/2018/06/19/20 [id number] Emergency [place] [address]ani[address] ding:ED Repository 06/17/2018/06/17/20 [id number] Emergency [place] ding:ED Repository 06/17/2018/06/17/20 [id number] Emergency [place] ding:ED Repository 06/14/2018/06/15/20 [id number] Ambulatory [address] Repository 06/13/2018/06/13/20 [id number] Ambulatory BMSBuilding: [place] 18 [facility] Repository 06/12/2018/06/13/20 [id number] Emergency [place] ding:ED Repository 06/12/2018/06/13/20 [id number] Ambulatory [address] Repository 06/10/2018/06/10/20 [id number] Emergency [place] 18 [facility] ding:ED Repository 06/10/2018/06/12/20 [id number] Ambulatory [address] Repository 06/08/2018/06/08/20 [id number] Emergency [place] ding:ED Repository 06/01/2018/06/01/20 [id number] Ambulatory [address] [place] Repository 05/25/2018/05/26/20 [id number] Ambulatory [address] Repository 05/18/2018 [id number] Ambulatory BMSBuilding: Lani BMS.[facility] Repository 05/14/2018/05/14/20 [id number] Emergency Lani Lani[address] ding:ED Repository 05/12/2018/05/12/20 [id number] Emergency [place] ding:ED Repository 05/05/2018/05/09/20 [id number] Ambulatory [address] Repository 05/01/2018 [id number] Ambulatory [facility] ding:RAD.FUT Repository URE 04/11/2018/04/12/20 [id number] Ambulatory [address] Main [place] Repository 04/08/2018/04/10/20 [id number] Ambulatory [address] Main [place] Repository 04/05/2018/04/05/20 [id number] Ambulatory [address] [place] Repository 03/30/2018/03/31/20 [id number] Ambulatory [address] [place] Repository 03/27/2018/05/23/20 [id number] Ambulatory [address] [place] Repository 03/24/2018/03/24/20 [id number] Emergency [place] ding:ED Repository 03/24/2018/03/24/20 [id number] Ambulatory [address] Main [place] Repository 03/24/2018/03/24/20 [id number] Ambulatory [address] [place] Repository 03/20/2018/03/20/20 [id number] Emergency [place] ding:ED Repository 03/19/2018/03/19/20 [id number] Emergency [place] Lani[address] ding:ED Repository 03/18/2018/03/20/20 [id number] Ambulatory [address] [place] Repository 03/17/2018/03/17/20 [id number] Emergency [place] 18 [facility] ding:ED Repository 03/16/2018/03/17/20 [id number] Ambulatory [address] [place] Repository 03/12/2018/03/13/20 [id number] Emergency [place] 18 [facility] ding:ED Repository 03/06/2018/03/07/20 [id number] Ambulatory [address] Main [place] Repository 03/03/2018/03/03/20 [id number] Emergency [place] [address] [place] [address] ding:ED Repository 02/21/2018/02/23/20 [id number] Ambulatory [address] Main [place] Repository 02/15/2018/02/16/20 [id number] Ambulatory [address] [place] Repository 02/15/2018/02/18/20 [id number] Ambulatory [address] Main [place] Repository 02/10/2018/04/26/20 [id number] Ambulatory [address] Main [place] Repository 02/09/2018/02/10/20 [id number] Ambulatory [address] Main [place] Repository 02/03/2018/02/04/20 [id number] Emergency Lani [address] ding:ED Repository 02/01/2018/02/02/20 [id number] Emergency Lani L[place] ding:ED Repository 01/30/2018/01/31/20 [id number] Emergency [place] 18 [facility] ding:ED Repository 01/23/2018/01/26/20 [id number] Ambulatory [address] Main [place] Repository 01/19/2018/01/21/20 [id number] Ambulatory [address] [place] Repository 01/14/2018/01/15/20 [id number] Emergency [place] Lani[address] ding:ED Repository 01/13/2018/01/14/20 [id number] Emergency [place] ding:ED Repository 01/06/2018/01/07/20 [id number] Emergency BBuilding:RICCARDO Escobar [address] [place] [address] Repository 12/14/2017/12/15/19 [id number] Emergency [place] 18 [facility] ding:ED Repository 12/07/2017/12/09/19 [id number] Ambulatory [address] Repository 10/27/2017/10/27/19 [id number] Emergency [place] 18 [facility] ding:ED Repository 10/10/2017/10/10/19 [id number] Emergency [place] 18 [facility] ding:ED Repository 08/28/2017/08/28/20 [id number] Emergency [place] 17 [facility] ding:ED Repository 10/21/2016/10/21/19 [id number] Ambulatory [address] Repository PAYERS PAYERS ENCOUNTER GUARANTOR PAYER SUBSCRIBER SOURCE 08/09/2018 ANGELICA [id number] Primary Insurance:[facility] AN[facility]ELICA [facility]OTO [facility] [address] Number: [id number] Hospital [address]Ebg: [phone] [id number] Repository [phone] () Date:0737-21-06MSFELLOWS, [place] [address]WP: 08/09/2018 Secondary NOT GIVENUNK [place] Insurance:SELF PAY [facility] Number: Effective Repository Date:2018-08-09 08/06/2018 ANGELICA [id number] Primary Insurance:[facility] ANGELICA SOTO [facility] BAKERDOB: [address] Number: [id number] Hospital [address]Nga: [phone] [id number] Repository [phone] () Date:5372-59-82TEFELLOWS, [place] [address]WP: 08/06/2018 Secondary NOT GIVENUNK [place] Insurance:SELF PAY [facility] Number: Effective Repository Date:2018-08-06 07/29/2018 ANGELICA [id number] Primary Insurance:[facility] ANGELICA VICTOR TRACEYKarishma [facility] [address] Number: [id number] Hospital [address]Sur: [phone] [id number] Repository [phone] () Date:4330-99-40NF [address] [address]HF: 07/29/2018 Secondary NOT GIVENUNK [place] Insurance:SELF PAY [facility] Number: Effective Repository Date:2018-07-29 07/29/2018 ANGELICA CLEMENS Primary Insurance:[facility] ANGELICA SOTO [facility] BAKERDOB: [address] [place] Number: [id number] Hospital [address]Tvk: [phone] [id number] Repository [phone] () Date:0605-80-63MB [address] [address]GN: 07/29/2018 Secondary NOT GIVENUNK [place] Insurance:SELF PAY [facility] Number: Effective Repository Date:2018-07-29 07/25/2018 ANGELICA CLEMENS Primary Insurance:[facility] JOSEFINA Lanileticia SOTO [facility] [address] [place] Number: [id number] Hospital [address]Ngv: [phone] [id number] Repository [phone] () Date:9619-30-50NZ [address] [address]AT: 07/25/2018 Secondary NOT GIVENUNK [place] Insurance:SELF PAY [facility] Number: Effective Repository Date:2018-07-25 07/24/2018 ANGELICA CLEMENS Primary Insurance:[facility] ANGELICA SOTO [facility] BAKERDOB: [address] [place] Number: [id number] Hospital [address]Qxn: [phone] [id number] Repository [phone] () Date:5729-84-68WN [address] [address]GC: 07/24/2018 Secondary NOT GIVENUNK [place] Insurance:SELF PAY [facility] Number: Effective Repository Date:2018-07-24 07/24/2018 ANGELICA CLEMENS Primary Insurance:[facility] JOSEFINA Lanileticia SOTO [facility] [address], [place] Number: [id number] Hospital [address]Cnd: 330 [id number] Repository [phone] () Date:6606-63-02GE [address] [address]NX: 07/24/2018 Secondary NOT GIVENUNK [place] Insurance:SELF PAY [facility] Number: Effective Repository Date:2018-07-19 07/24/2018 JOSEFINA [id number] Primary Insurance:[facility] ANGELICA SOTO [facility] BAKERDOB: [address], [place] Number: [id number] Hospital [address]Vjy: 330 [id number] Repository [phone] () Date:8582-18-11BI [address] [address]MJ: 07/24/2018 Secondary NOT GIVENUNK [place] Insurance:SELF PAY [facility] Number: Effective Repository Date:2018-07-24 07/13/2018 ANGELICA CLEMENS Primary Insurance:[facility] ANGELICA SOTO [facility] BAKERDOB: [address], [place] Number: [id number] Hospital [address]Qfg: 330 [id number] Repository [phone] () Date:8920-32-55RD [address] [address]WR: 07/13/2018 Secondary NOT GIVENUNK [place] Insurance:SELF PAY [facility] Number: Effective Repository Date:2018-07-13 07/12/2018 JOSEFINA [id number] Primary Insurance:[facility] ANGELICA SOTO [facility] BAKERDOB: [address], [place] Number: [id number] Hospital [address]Ijz: [phone] [id number] Repository [phone] () Date:3207-93-01EJ [address] [address]TO: 07/12/2018 Secondary NOT GIVENUNK [place] Insurance:SELF PAY [facility] Number: Effective Repository Date:2018-07-04 06/19/2018 ANGELICA CLEMENS Primary Insurance:[facility] ANGELICA SOTO [facility] [address], [place] Number: [id number] Hospital [address]Zmb: 330 [id number] Repository [phone] () Date:6897-38-78FU [address] [address]ZO: 06/19/2018 Secondary NOT GIVENUNK [place] Insurance:SELF PAY [facility] Number: Effective Repository Date:2018-06-19 06/17/2018 ANGELICA CLEMENS Primary Insurance:[facility] ANGELICA SOTO [facility] BAKERDOB: [address], [place] Number: [id number] Hospital [address]Fed: 330 [id number] Repository [phone] () Date:8543-62-16BC [address] [address]OW: 06/17/2018 Secondary NOT GIVENUNK [place] Insurance:SELF PAY [facility] Number: Effective Repository Date:2018-06-17 06/17/2018 ANGELICA CLEMENS Primary Insurance:[facility] ANGELICA SOTO [facility] [place] Number: [id number] Hospital [address]Lvv: 330 [id number] Repository [phone] () Date:8883-40-51SE [address] [address]BY: 06/17/2018 Secondary NOT GIVENUNK [place] Insurance:SELF PAY [facility] Number: Effective Repository Date:2018-06-17 06/13/2018 ANGELICA CLEMENS Primary Insurance:[facility] ANGELICA SOTO [facility] [address], [place] Number: [id number] Hospital [address]Wfp: 330 [id number] Repository [phone] () Date:4741-28-08WA [address] [address]VG: 06/13/2018 Secondary NOT GIVENUNK [place] Insurance:SELF PAY [facility] Number: Effective Repository Date:2018-06-13 06/12/2018 ANGELICA Bermudez [id number] Primary Insurance:[facility] ANGELICA SOTO [facility] [address], [place] Number: [id number] Hospital [address]Tlw: [phone] [id number] Repository [phone] () Date:8597-33-88PT [address] [address]ZS: 06/12/2018 Secondary NOT GIVENUNK L[place] Insurance:SELF PAY [facility] Number: Effective Repository Date:2018-06-12 06/10/2018 ANGELICA Bermudez JAYLEEN Primary Insurance:[facility] ANGELICA SOTO [facility] [address], [place] Number: [id number] Hospital [address]Sbw: [phone] [id number] Repository [phone] () Date:0058-24-16SQ [address] [address]MV: 06/10/2018 Secondary NOT GIVENUNK [place] Insurance:SELF PAY [facility] Number: Effective Repository Date:2018-06-10 06/08/2018 ANGELICA Bermudez [id number] Primary Insurance:[facility] ANGELICA SOTO [facility]: [address], [place] Number: [id number] [facility] [address]Mxb: [phone] [id number] Repository [phone] () Date:3374-00-36FL [address] [address]DV: 06/08/2018 Secondary NOT GIVENUNK [place] Insurance:SELF PAY [facility] Number: Effective Repository Date:2018-06-08 05/18/2018 ANGELICA Bermudez [id number] Primary Insurance:[facility] ANGELICA SOTO [facility] [address], [place] Number: [id number] Hospital [address]Tsp: [phone] [id number] Repository [phone] () Date:[id number] [address] [address]YK: 05/18/2018 Secondary NOT GIVENUNK Lani Insurance:SELF PAY [facility] Number: Effective Repository Date:2018-03-20 05/14/2018 JOSEFINA [id number] Primary Insurance:[facility] ANGELICA SOTO [facility] BAKERDOB: [address], [place] Number: [id number] Hospital [address]Qph: [phone] [id number] Repository [phone] () Date:6923-96-08OH [address] [address]FF: 05/14/2018 Secondary NOT GIVENUNK [place] Insurance:SELF PAY [facility] Number: Effective Repository Date:2018-05-14 05/12/2018 JOSEFINALara CLEMENS Primary Insurance:[facility] ANGELICA SOTO [facility] BAKERDOB: [address], [place] Number: [id number] Hospital [address]Otw: [phone] [id number] Repository [phone] () Date:[id number] [address]KY: 05/12/2018 Secondary NOT GIVENUNK [place] Insurance:SELF PAY [facility] Number: Effective Repository Date:2018-05-12 05/01/2018 JOSEFINA [id number] Primary Insurance:[facility] ANGELICA SOTO [facility] BAKERDOB: [address], [place] Number: [id number] Hospital [address]Ggz: [phone] [id number] Repository [phone] () Date:[id number] [address]HF: 05/01/2018 Secondary NOT GIVENUNK Lani Insurance:SELF PAY [facility] Number: Effective Repository Date:2018-04-25 03/24/2018 JOSEFINA [id number] Primary Insurance:[facility] ANGELICA SOTO [facility] BAKERDOB: [address], [place] Number: [id number] Hospital [address]Pvn: [phone] [id number] Repository [phone] () Date:1864-66-64ZS [address] [address]LP: 03/24/2018 Secondary NOT GIVENUNK Lani Insurance:SELF PAY [facility] Number: Effective Repository Date:2018-03-24 03/20/2018 ANGELICA CLEMENS Primary Insurance:[facility] AN[facility]ELICA [facility]OTO [facility] [address] [place] Number: [id number] Hospital [address]Qrb: 330 [id number] Repository [phone] () Date:2844-67-54AU [address] [address]QG: 03/20/2018 Secondary NOT GIVENUNK Lani Insurance:SELF PAY [facility] Number: Effective Repository Date:2018-03-20 03/19/2018 ANGELICA CLEMENS Primary Insurance:[facility] JOSEFINA [place] SOTO [facility] [address] [place] Number: [id number] Hospital [address]Wog: 330 [id number] Repository [phone] () Date:[id number] [address]LU: 03/19/2018 Secondary NOT GIVENUNK [place] Insurance:SELF PAY [facility] Number: Effective Repository Date:2018-03-19 03/17/2018 ANGELICA [id number] Primary Insurance:[facility] ANGELICA SOTO [facility] BAKERDOB: [facility] [address] Number: [id number] Hospital [address]Qst: 330 [id number] Repository [phone] () Date:[id number] [address]JM: 03/17/2018 Secondary NOT GIVENUNK [place] Insurance:SELF PAY [facility] Number: Effective Repository Date:2018-03-17 03/12/2018 ANGELICA CLEMENS Primary Insurance:[facility] JOSEFINA Lanileticia SOTO [facility] [address] [place] Number: [id number] Hospital [address]Rlx: [phone] [id number] Repository [phone] (HP) Date:4870-18-79ZK [address] [address]UF: 03/12/2018 Secondary NOT GIVENUNK Lani Insurance:SELF PAY [facility] Number: Effective Repository Date:2018-03-12 03/03/2018 ANGELICA [id number] Primary Insurance:[facility] ANGELICA SOTO [facility] BAKERDOB: [address], [place] Number: [id number] Hospital [address]Bbt: [phone] [id number] Repository [phone] () Date:6295-41-63PU [address] [address]SI: 03/03/2018 Secondary NOT GIVENUNK [place] Insurance:SELF PAY [facility] Number: Effective Repository Date:2018-03-03 02/03/2018 ANGELICA [id number] Primary Insurance:[facility] ANGELICA SOTO [facility] BAKERDOB: [address], [place] Number: [id number] Hospital [address]Whc: 330 [id number] Repository [phone] () Date:2348-87-16TE [address] [address]KZ: 02/03/2018 Secondary NOT GIVENUNK [place] Insurance:SELF PAY [facility] Number: Effective Repository Date:2018-02-03 02/01/2018 ANGELICA [id number] Primary Insurance:[facility] ANGELICA SOTO [facility] BAKERDOB: [address], [place] Number: [id number] Hospital [address]Cib: [phone] [id number] Repository [phone] () Date:0735-42-59GQ [address] [address]XF: 02/01/2018 Secondary NOT GIVENUNK [place] Insurance:SELF PAY [facility] Number: Effective Repository Date:2018-02-01 01/30/2018 ANGELICA CLEMENS Primary Insurance:[facility] ANGELICA SOTO [facility] BAKERDOB: [facility] [address] Number: [id number] Hospital [address]Zrv: 330 [id number] Repository [phone] (HP) Date:[id number] [address]SM: 01/30/2018 Secondary NOT GIVENUNK Lani Insurance:SELF PAY [facility] Number: Effective Repository Date:2018-01-30 01/14/2018 ANGELICA [id number] Primary Insurance:[facility] ANGELICA SOTO [facility] BAKERDOB: [facility] [place] Number: [id number] Hospital [address]Hdx: 330 [id number] Repository [phone] (HP) Date:6068-52-37OD [address] [address]SZ: 01/14/2018 Secondary NOT GIVENUNK Lani Insurance:SELF PAY [facility] Number: Effective Repository Date:2018-01-14 01/13/2018 ANGELICA Bermudez [id number] Primary Insurance:[facility] ANGELICA SOTO [facility] BAKERDOB: [facility] [address] Number: [id number] Hospital [address]Qea: 330 [id number] Repository [phone] () Date:5246-10-04XW [address] [address]WV: 01/13/2018 Secondary NOT GIVENUNK Lani Insurance:SELF PAY [facility] Number: Effective Repository Date:2018-01-13 01/06/2018 ANGELICA Bermudez Primary ANGELICA Bermudez [facility] BAKERDOB: Insurance:[facility] BAKERDOB: [facility] [id number] Repository [address] Number: [address], [place] [id number] [place], [place] [address]Cnf: ([phone]) Date:2018-01-0687366Bko: (HP) [id number] [phone] Name:[address] ()Tel: [phone] [place] [address] [phone] () [address]HT: 12/14/2017 ANGELICA [id number] Primary Insurance:[facility] JOSEFINA Lani [address] SOTO [facility] BAKERDOB: [address] Number: [id number] Hospital [address]Uot: [phone] [id number] Repository [phone] () Date:8452-81-48XE [address] [place] [address]ZS: 12/14/2017 Secondary NOT GIVENUNK Lani Insurance:SELF PAY [facility] Number: Effective Repository Date:2017-12-14 10/27/2017 ANGELICA OLMOS Primary Insurance:[facility] JOSEFINALara Garibay E [facility] BAKERDOB: [facility], Number: [id number] [address]Siv: [id number] Repository Date:5672-97-96TI [address] () [address] [place] [address]CM: 10/27/2017 Secondary NOT GIVENUNK [place] Insurance:SELF PAY [facility] Number: Effective Repository Date:2017-10-27 10/10/2017 Angelica Olmos E Primary Insurance:[facility] Angelica Nieves: [place] [facility] [id number] [place], [place] Number: Hospital [address]Upm: 330 [id number] Repository [phone] () Date:5896-89-11NZ [address] [place] [address]LP: 10/10/2017 Secondary NOT GIVENUNK Lani Insurance:SELF PAY [facility] Number: Effective Repository Date:2017-10-10 08/28/2017 Angelica Olmos E Primary Insurance:[facility] Angelica Nieves: [place] [address] [facility] [id number] [place] Number: Hospital [address]Puq: [phone] [id number] Repository [phone] () Date:8099-32-45IW [address] [place] [address]ID: 08/28/2017 Secondary NOT GIVENUNK Lani Insurance:SELF PAY [facility] Number: Effective Repository Date:2017-08-28
== END 2018-08-07 01:00 | disposition home or self-care (01) ==
PROVIDERS: Emergency Provider Emergency Medicine
DX: R20.2 Paresthesia of skin (principal); F41.9 Anxiety disorder, unspecified; J45.909 Unspecified asthma, uncomplicated; Z88.0 Allergy status to penicillin
CPT/HCPCS: 99283

== ENCOUNTER 2018-08-09 15:35 | Emergency (ER) | payer MEDICAID, SELFPAY ==
[2018-08-09 15:36] VITALS: BP 148/89; PULSE 114; RESP 16; TEMP 36.4; O2SAT 97; BMI 23.5
--- NOTE | 2018-08-09 15:52 | ED.DCSUM_ITS ---
- ER Visit Summary Date of Service: 08/09/18 Chief Complaint: [] Would like a liter of IV fluid History of Present Illness: The patient is a 37 F [] reports she feels that she is dehydrated she is asked to be given 1 L of IV fluid,. She indicates she has had normal p.o. intake today she ate a full breakfast full lunch drink liquids had normal bowel and urinary habits no fever no cough no diarrhea no numbness weakness or paresthesias, she apparently had some dispute by staff with her boyfriend and then came to the emergency department. She has no complaints of suicidal homicidal ideation she cannot explained me why she would need IV fluids. She has no specific complaints sitting in the bed other than saying she feels slightly tired, she does have a history of psychological psychiatric disorders that include at least anxiety she takes she states she is taking all of her meds Physical Examination: [] Pressure is 140/80, heart rate is about 90 General, no distress resting comfortably HEENT is generally unremarkable very moist mucous membranes The neck is supple no adenopathy Cardiovascular, regular rate and rhythm rate about 90 Lungs, clear bilateral Abdomen, soft nontender Extremities, no clubbing cyanosis or edema Neurologic, awake alert answering questions appropriately moving all 4 extremities she is walking around the room in no distress clinically she looks well Test Results: [] Emergency Department Course and Treatment: [] Patient has no physical complaints other than possibly fatigue she has been eating and drinking well by her reports her bowel and urinary habits of normal given all the above she needs hydration it is better to hydrate her orally based on recommendations, will check urinalysis and proceed from there Treatment Plan: [] The patient's UA is unremarkable and in fact has a very dilute urine suggesting appropriate hydration of 1005, she will be instructed to continue all of her management all of her medications and follow-up with all of her outpatient providers Disposition: [] Stable home Impression: [] Concern for dehydration This note was generated with [employer] dictation software. It may contain incorrect words, spelling, and punctuation that were not noted in review of the chart prior to signing ED Disposition - Plan for ED Patient: Chief Complaint: General Illness Referrals: [facility] Loraine,Daniela Alcazar [Primary Care Provider] -
[2018-08-09 16:19] LABS: Bacteria 0 SEEN /hpf (None Seen); Mucous, Urine 0 SEEN /hpf (<or=2+); Red Blood Cells-Urine 0 SEEN /hpf (0-5); Squamous Epithelial Cells - UA 0 SEEN /hpf (5-10); White Blood Cells 0 SEEN /hpf (0-5)
--- NOTE | 2018-08-09 16:25 | CM.ED ---
Social Work Note Referral from interior mechanic for frequent utilization of ED. This will be pt's 29th visit in 2018. Face to face with the pt. Introduced self and role at [facility]. The pt presents with flat affect as evidenced by no change in expression or tone of voice throughout conversation. She is shaking and reports anxiety. Wants the door cracked in the room. Denies SI or HI. Reports that she came in today because she has been feeling tired, groggy and out of it. Claims that she saw Mallorie Alexis NP-C at [facility] who didn't want to check for her for dehydration and she found unhelpful. Discussed that this is not an appropriate ED visit. Reviewed the importance of utilizing services such as PCP and Urgent Care as appropriate. Pt is interested in getting established with a PCP and reports difficulty with transportation. She is linked with [facility] for psychiatry and a nurse case manager she now states is Alistair. She goes to [facility] once a week with Theresa and has an appointment next week. States her counselor was sick this week and the appointment was cancelled. Unable to establish her with an appointment with [facility]. Educate to [facility] and pt is agreeable to a referral. Referral submitted to [facility] via [employer]. Placed call to [facility] as they have opportunities for transportation to appointments. Per Delfina at [facility] the pt will need to complete paperwork and submit it. At that time it will be reviewed and they will contact the pt to schedule an appointment. Assisted pt in completing paperwork, faxed to Delfina at [phone]. PLAN: Establish care with PCP, develop EDCP to be reviewed by multidisciplinary care team d/t significant amount of visits. Shara Gasca, EMPLOYEE BENEFITS SPECIALIST, [place]
[2018-08-09 16:46] LABS: Color, Urine Yellow (Yellow); Glucose, Dipstick Normal (Normal); Ketone-Dipstick Negative (Negative); Leukocyte Esterase-Dipstick Negative /ul (Negative); Nitrite-Dipstick Negative (Negative); Occult Blood-Urine Negative /ul (Negative); Protein-Dipstick Negative (Negative); Specific Gravity, Urine 1.005 (1.002-1.030); Urine Bilirubin Dipstick Negative (Negative); Urine Clarity Clear (Clear); Urine Urobilinogen Normal (Normal)
--- NOTE | 2018-08-09 17:38 | ED.DEP ---
ED Disposition - Plan for ED Patient: Chief Complaint: General Illness Instructions: Dehydration, ED Dehydration Referrals: Daniela Shields [Primary Care Provider] - Additional Instructions: Continue all of your medications and follow-up with all of your outpatient providers
[2018-08-09 17:49] VITALS: BP 166/106; PULSE 109; RESP 16; O2SAT 96
== END 2018-08-09 17:50 | disposition home or self-care (01) ==
LOC: ED 16:03
PROVIDERS: Emergency Provider Emergency Medicine
DX: R53.83 Other fatigue (principal); E86.0 Dehydration; F41.9 Anxiety disorder, unspecified
CPT/HCPCS: 81001; 99284

== ENCOUNTER 2018-09-03 14:14 | Emergency (ER) | payer MEDICAID, SELFPAY ==
[2018-09-03 14:16] VITALS: BP 132/90; PULSE 98; RESP 16; TEMP 36.4; O2SAT 97; BMI 29.0
--- NOTE | 2018-09-03 15:30 | NURSING ---
pt has exited and entered the facility to smoke multiple time. pt has called out to triage desk multiple time for minor complaints. needs have been address and pt has been informed that we will get her to a room as quickly as possible. [email or web address] rn [id number]
--- NOTE | 2018-09-03 16:20 | ED.DCSUM_ITS ---
- ER Visit Summary Date of Service: 09/03/18 Chief Complaint: Shaking, anxious History of Present Illness: The patient is a 37 F presents to the emergency department with multiple complaints. The patient has a history of anxiety and depression. She was recently placed on Trileptal. She states starting the medication, she is been very shaky. She states that she does not fully control her symptoms. She states that she does not feel safe at home. She is been seen multiple times for the same. She called the counseling center and was referred in for further evaluation. She denies being overtly suicidal, but states that she cannot live like this. She denies any fevers or chills. She denies any other systemic symptoms. Physical Examination: Vital signs reviewed General: Well-nourished, well-developed Head: Normocephalic, atraumatic Eyes: Pupils equal and reactive, extraocular muscles intact Neck, supple, no lymphadenopathy Heart: Regular rate and rhythm Respiratory: No distress, clear bilaterally Abdomen: Soft, nontender, nondistended, no peritoneal signs Back: Nontender Extremities: Nontender, no edema, no cords Skin: Normal color no rash Neuro: Alert and oriented, no focal or lateralizing deficits Test Results: [] Emergency Department Course and Treatment: The patient presents to the emergency department with multiple complaints. She complains of a tremor. However, when she was distracted, her tremor resolves. She has already discussed her care with crisis and feels like she would need psychiatric evaluation. Screening labs will be obtained. The patient will be seen and evaluated by crisis. Disposition is currently pending. Treatment Plan: [] Disposition: Pending Impression: 1. Anxiety This note was generated with [employer] dictation software. It may contain incorrect words, spelling, and punctuation that were not noted in review of the chart prior to signing ED Disposition - Plan for ED Patient: Chief Complaint: Mental Health Referrals: Mallorie Alexis NP-C [Primary Care Provider] -
[2018-09-03 16:27] LABS: Absolute Lymphocyte Count 1.77 X10^3/ul (0.83-4.51); Absolute Neutrophil Count 3.8 X10^3/uL (2.0-7.7); Basophil# 0.02 X10^3/uL; Basophil% 0.3 % (0-1); Eosinophil# 0.23 X10^3/uL; Eosinophils% 3.6 % (0-5); Hematocrit 40.6 % (37-47); Hemoglobin 13.7 g/dl (12.0-15.0); Lymphocyte # 1.77 X10^3/ul (4.0); Lymphocyte % 27.5 % (19-41); Mean Corp Hgb Conc 33.7 g/gl (32-36); Mean Corpuscular Hgb 27.8 pg (27.0-32.0); Mean Corpuscular Volume 82.5 fL (81-99); Mean Platelet Vol. 9.3 fl (6.2-12.0); Monocyte# 0.57 X10^3/uL; Monocyte% 8.9 % (0-10); Neutrophil # 3.83 X10^3/uL (2.7-7.7); Neutrophil % 59.5 % (47-70); Platelet Count 273 K/mm3 (150-450); RBC Distribution Width CV 13.2 % (11.6-14.6); RBC Distribution Width SD 39.8 fl (35.1-43.9); Red Blood Count 4.92 M/mm3 (4.2-5.4); White Blood Count 6.4 K/mm3 (4.4-11.0)
[2018-09-03 16:33] LABS: POSITIVE COUNT NO; POSITIVE DIFFERENTIAL NO; POSITIVE MORPHOLOGY NO
[2018-09-03 16:53] LABS: Anion Gap 7 (5-15); BUN 11 mg/dL (7-18); BUN/Creat Ratio 14.4 RATIO (10-20); Calcium,Total 8.6 mg/dL (8.5-10.1); Chloride 103 mmol/L (98-107); Creatinine, Serum 0.76 mg/dL (0.55-1.02); EST Glomerular Filtration Rate 89 mL/min (>60); Est Glom Filt Rate - Afr Amer 108 mL/min (>60); Estimated Creatinine Clearance 96.64 ml/min; Glucose 102 mg/dL (74-106); Potassium 4.1 mmol/L (3.5-5.1); Sodium Level 135 mmol/L (136-145)
[2018-09-03 17:05] LABS: Amphetamine Urine VISTA NEGATIVE (<1000 ng/mL); Barbiturate Urine VISTA NEGATIVE (< 200 ng/mL); Benzodiazepine Urine VISTA NEGATIVE (< 200 ng/mL); Cocaine Urine VISTA NEGATIVE (< 300 ng/mL); Ecstacy Urine VISTA NEGATIVE (< 500 ng/mL); Methadone Urine VISTA NEGATIVE (< 300 ng/mL); PCP Urine VISTA NEGATIVE (< 25 ng/mL); THC Urine VISTA NEGATIVE (< 50 ng/mL); Vista UDS pH Range 7
[2018-09-03 17:17] LABS: Alcohol, Blood (Medical)-Serum < 3.0 mg/dL
[2018-09-03 17:17] LABS: Pregnancy, Serum, hCG Quali. NEGATIVE Negative (0-9 Nonpreg)
--- NOTE | 2018-09-03 18:09 | ED.RN ---
crisis in department. will come to talk with pt.
--- NOTE | 2018-09-03 18:22 | NURSING ---
Ronnell from Crisis at BS with pt at present
[2018-09-03 18:56] VITALS: BP 135/81; PULSE 105; RESP 16; O2SAT 96
--- NOTE | 2018-09-03 19:19 | ED.DEP ---
ED Disposition - Plan for ED Patient: Chief Complaint: Mental Health Additional Instructions: follow up as directed with counseling
[2018-09-03 19:32] VITALS: BP 151/98; PULSE 88; RESP 16; O2SAT 95
[2018-09-07 15:05] LABS: Trileptal-Oxcarbazepine 23 ug/mL (10-35)
== END 2018-09-03 19:33 | disposition home or self-care (01) ==
PROVIDERS: Emergency Medicine; Emergency Provider Emergency Medicine; Family Provider Nurse Practitioner Family; PCP Nurse Practitioner Family
DX: F41.9 Anxiety disorder, unspecified (principal); F32.9 Major depressive disorder, single episode, unspecified; Z72.0 Tobacco use
CPT/HCPCS: 36415; 80048; 80307; 80320; 82542; 84703; 85025; 99283; G0480

== ENCOUNTER 2018-09-04 15:35 | Emergency (ER) | payer MEDICAID, SELFPAY ==
[2018-09-03 14:16] VITALS: BMI 29.0
[2018-09-04 15:37] VITALS: BP 144/75; PULSE 130; RESP 17; TEMP 36.7; O2SAT 100; BMI 29.1
--- NOTE | 2018-09-04 15:59 | ED.VISSUMM ---
- ER Visit Summary Date of Service: 09/04/18 Chief Complaint: Does not feel safe at home History of Present Illness: The patient is a 37 F presenting stating that she does not feel safe at home. She was seen in the ED yesterday for similar complaints. She was seen by the counseling center and was sent home to follow-up with counseling center. She states she still does not feel safe at home. She called crisis today and they advised her to come back to the ED. She is on medications for anxiety and depression. She states this causes her to shake all over. She has been shaking for the past several months. This is unchanged. She is concerned that she may accidentally overdose due to shaking while taking her medications. Physical Examination: Vitals are stable. Patient is afebrile. Alert no acute distress. HEENT exam is unremarkable. Neck is supple. Lungs are clear and equal bilaterally. Heart is regular rate and rhythm. Abdomen is soft nontender nondistended. Extremities are unremarkable. Skin is warm and dry. No focal neurologic deficit. Depressed affect Remainder of exam is unremarkable. Emergency Department Course and Treatment: CBC, chemistries unremarkable. HCG negative. Alcohol negative. Tox is negative. Will discuss with the counseling center for evaluation. Disposition: Per counseling center Impression: Depression with suicidal ideation This note was generated with [employer] dictation software. It may contain incorrect words, spelling, and punctuation that were not noted in review of the chart prior to signing ED Disposition - Plan for ED Patient: Chief Complaint: Suicidal Referrals: Mallorie Alexis, WOLF-C [Primary Care Provider] -
--- NOTE | 2018-09-04 16:02 | ED.DCSUM_ITS ---
- ER Visit Summary Date of Service: 09/04/18 Chief Complaint: Does not feel safe at home History of Present Illness: The patient is a 37 F presenting stating that she does not feel safe at home. She was seen in the ED yesterday for similar complaints. She was seen by the counseling center and was sent home to follow- up with counseling center. She states she still does not feel safe at home. She called crisis today and they advised her to come back to the ED. She is on medications for anxiety and depression. She states this causes her to shake all over. She has been shaking for the past several months. This is unchanged. She is concerned that she may accidentally overdose due to shaking while taking her medications. Physical Examination: Vitals are stable. Patient is afebrile. Alert no acute distress. HEENT exam is unremarkable. Neck is supple. Lungs are clear and equal bilaterally. Heart is regular rate and rhythm. Abdomen is soft nontender nondistended. Extremities are unremarkable. Skin is warm and dry. No focal neurologic deficit. Depressed affect Remainder of exam is unremarkable. Emergency Department Course and Treatment: CBC, chemistries unremarkable. HCG negative. Alcohol negative. Tox is negative. Will discuss with the counseling center for evaluation. Disposition: Per counseling center Impression: Depression with suicidal ideation This note was generated with [employer] dictation software. It may contain incorrect words, spelling, and punctuation that were not noted in review of the chart prior to signing ED Disposition - Plan for ED Patient: Chief Complaint: Suicidal Referrals: Mallorie Alexis, WOLF-C [Primary Care Provider] -
--- NOTE | 2018-09-04 16:02 | ED.RN ---
pt vague about suicidal plan. this rn asked pt do you want to kill yourself? pt states no. i am just afraid i will take too much medicine because my brain isn't working right
[2018-09-04 16:27] LABS: Absolute Neutrophil Count 4.5 X10^3/uL (2.0-7.7); Basophil# 0.02 X10^3/uL; Basophil% 0.3 % (0-1); Eosinophil# 0.14 X10^3/uL; Eosinophils% 1.9 % (0-5); Hematocrit 40.3 % (37-47); Hemoglobin 13.5 g/dl (12.0-15.0); Mean Corp Hgb Conc 33.5 g/gl (32-36); Mean Corpuscular Hgb 27.6 pg (27.0-32.0); Mean Corpuscular Volume 82.2 fL (81-99); Mean Platelet Vol. 9.2 fl (6.2-12.0); Monocyte# 0.51 X10^3/uL; Neutrophil # 4.46 X10^3/uL (2.7-7.7); Neutrophil % 61.7 % (47-70); Platelet Count 263 K/mm3 (150-450); RBC Distribution Width CV 13.4 % (11.6-14.6); RBC Distribution Width SD 40.2 fl (35.1-43.9); White Blood Count 7.2 K/mm3 (4.4-11.0)
[2018-09-04 16:29] LABS: POSITIVE COUNT NO; POSITIVE DIFFERENTIAL NO; POSITIVE MORPHOLOGY NO
[2018-09-04 16:39] LABS: Anion Gap 10 (5-15); BUN 11 mg/dL (7-18); BUN/Creat Ratio 14.5 RATIO (10-20); Calcium,Total 8.8 mg/dL (8.5-10.1); Chloride 100 mmol/L (98-107); Creatinine, Serum 0.76 mg/dL (0.55-1.02); EST Glomerular Filtration Rate 90 mL/min (>60); Est Glom Filt Rate - Afr Amer 109 mL/min (>60); Estimated Creatinine Clearance 96.64 ml/min; Glucose 121 mg/dL (74-106); Potassium 3.6 mmol/L (3.5-5.1); Sodium Level 135 mmol/L (136-145)
[2018-09-04 16:55] LABS: Alcohol, Blood (Medical)-Serum < 3.0 mg/dL
[2018-09-04 17:10] LABS: Pregnancy, Serum, hCG Quali. NEGATIVE Negative (0-9 Nonpreg)
--- NOTE | 2018-09-04 17:25 | CM.ED ---
SCIENTIFIC ILLUSTRATOR NOTE: PT TRIGGERED FOR MENTAL HEALTH ASSESSMENT AND PER NURSE WAS SENT IN BY CRISIS. NURSING REQUESTING THIS WORKER ASSESS PT FOR NEED FOR SITTER PROTOCOL. PT IS A 37 Y/O FEMALE WHO PRESENTS TO THE ED FOR MENTAL HEALTH EVAL. ASSESSED PT FOR SUICIDE RISK, DETERMINED THAT THE PT IS NOT A HARM TO HERSELF OR OTHERS. PT VOICES SHE DOES NOT WANT TO BE ALONE AND IS AFRAID WHEN SHE IS ALONE SHE WILL TAKE MORE PILLS THEN SHE IS PRESCRIBED. PT DENIES A PLAN TO HARM SELF. PT STATES WAS ADMITTED TO [facility] AND WISHES TO RETURN. PT STATES SHE DOES NOT FEEL THE MEDICATIONS THEY PRESCRIBED TO HER UPON LAST ADMISSION ARE WORKING. PT STATES HAS BEEN EXPERIENCING SHAKING ALL OVER. DURING CONVERSATION PT HITTING RIGHT HAD AND TELLING BODY PART TO STOP. PT WANTING TO SPEAK WITH SHEET METAL DUCT INSTALLER HELPER WHO IS PRESENT IN HOUSE TO MEET WITH PT ONCE WORKUP COMPLETED. UPDATED NURSING AND PHYSICIAN ON THE ABOVE. REGI FLORES, SUPERVISING CHEF, RADIOLOGY PHYSICIAN ASSISTANT.
[2018-09-04 18:00] VITALS: RESP 14
--- NOTE | 2018-09-04 18:57 | ED.RN ---
PT STATES SHE WILL KEEP COMING BACK TO ER AND WILL BECOME VIOLENT WITH STAFF IF SHE IS NOT PLACED IN A FACILITY.
[2018-09-04] MEDS: OXcarbazepine 300 MG Tablet 900 MG PO (20:05)
--- NOTE | 2018-09-04 20:06 | ED.RN ---
PATIENT GETTING VERY ANXIOUS. COLORING BOOK AND CRAYONS GIVEN ALONG WITH HER TRILEPTAL. A SANDWICH AND DRINK ALSO GIVEN.
[2018-09-04 20:32] LABS: Amphetamine Urine VISTA NEGATIVE (<1000 ng/mL); Barbiturate Urine VISTA NEGATIVE (< 200 ng/mL); Benzodiazepine Urine VISTA NEGATIVE (< 200 ng/mL); Cocaine Urine VISTA NEGATIVE (< 300 ng/mL); Ecstacy Urine VISTA NEGATIVE (< 500 ng/mL); Methadone Urine VISTA NEGATIVE (< 300 ng/mL); PCP Urine VISTA NEGATIVE (< 25 ng/mL); THC Urine VISTA NEGATIVE (< 50 ng/mL); Vista UDS pH Range 6
--- NOTE | 2018-09-04 20:52 | CM.ED ---
SOCIAL WORK NOTE CASE CONFERENCED WITH SALES REPRESENTATIVE PRINTING, KILEY. KILEY WORKING ON REFERRAL TO [facility] FOR INPT PSYCH PLACEMENT. REGI FLORES, ROTOR PILOT, ROAD ROLLER OPERATOR HOT MIX.
[2018-09-04 20:58] VITALS: BP 110/70; PULSE 92; RESP 18
[2018-09-04 21:43] VITALS: RESP 18
[2018-09-04] MEDS: MELATONIN 3 MG TABLET PO (22:46)
[2018-09-04 22:48] VITALS: BP 140/82; PULSE 102; RESP 18; O2SAT 97
--- NOTE | 2018-09-04 23:33 | ED.RN ---
I WAS CALLED TO THE PATIENT'S ROOM TO LOWER HER BED, AND STRAIGHTEN UP HER PILLOW ETC. A TREMOR IS NOTED IN PATIENT'S HANDS.
--- NOTE | 2018-09-04 23:34 | ED.RN ---
KILEY FROM [facility] EVALUATED THIS PT EARLIER TODAY. PT ACCEPTED AT [facility] IN [place].
[2018-09-05] VITALS: RESP 18
[2018-09-05 01:07] VITALS: RESP 16
--- NOTE | 2018-09-05 01:40 | ED.RN ---
PATIENT CAME OUT AND SAID I AM TRYING TO PATIENT, BUT I WILL BE MORE PATIENT IF I CAN SLEEP. CAN I HAVE SOME MORE MELATONIN?' A VISIBLE TREMOR THAT SHE SEEMS TO BE ABLE TO CONTROL WAS NOTED IN HER RIGHT HAND. SHE ALSO ASKED FOR MEDICATION FOR THIS. DOCTOR SUGGESTED STEPHANIE AND SHE SAID IT ISN'T THAT BAD. SO AJAYDON WAS ORDERED.
[2018-09-05] MEDS: MELATONIN 3 MG TABLET PO (02:16)
[2018-09-05 02:47] VITALS: RESP 16
[2018-09-05 03:57] VITALS: RESP 18
--- NOTE | 2018-09-05 03:59 | ED.RN ---
REPORT GIVEN TO LEANDER AT [facility]. TRANSFER FORM FILLED OUT FOR HER TO LEAVE AT 730.
[2018-09-05 04:24] VITALS: BP 142/86; PULSE 85; RESP 18; O2SAT 95
--- NOTE | 2018-09-05 04:24 | ED.RN ---
PATIENT CAME OUT TO THE DESK. STATING I HAVE NOT SLEPT EVEN THOUGH SHE SEEMED TO BE SLEEPING WHEN I WOULD CHECK ON HER. SHE WAS REQUESTING MORE FOOD SO A SANDWICH AND CHEESE STICK WAS GIVEN TO HER. HER RIGHT HAND SEEMS TO BE TREMORING WHEN I TALK TO HER, BUT SHE CAN CONTROL IT WHEN ASKED TO HOLD STILL FOR HER BP. SHE WAS CONTENT WITH HER FOOD BEFORE I LEFT THE ROOM.
[2018-09-05] MEDS: Ziprasidone IM 20 MG/ML VIAL IM (06:15)
[2018-09-05 06:19] VITALS: BP 130/90; PULSE 96; RESP 18; O2SAT 99
--- NOTE | 2018-09-05 06:38 | ED.RN ---
STEPHANIE GIVEN TO CHUN AFTER DISCUSSING HER ANXIETY OVER ALLERGIC REACTIONS FROM TAKING MEDICATIONS. I ALSO HAD TO PUT HER PHONE IN HER COAT POCKET BEFORE SHE WOULD LET ME GIVE IT TO HER. SHE WAS COOPERATIVE AFTER THIS. SHE SEEMS TO DO BETTER WHEN I AM IN THERE TALKING TO HER.
== END 2018-09-05 08:10 ==
PROVIDERS: Emergency Provider Emergency Medicine; Family Provider Nurse Practitioner Family; PCP Nurse Practitioner Family
DX: F32.9 Major depressive disorder, single episode, unspecified (principal); R45.851 Suicidal ideations; J45.909 Unspecified asthma, uncomplicated; Z72.0 Tobacco use
CPT/HCPCS: 80048; 80307; 80320; 84703; 85025; 96372; 99282; G0480

== ENCOUNTER 2018-09-12 19:55 | Emergency (ER) | payer MEDICAID, SELFPAY ==
[2018-09-12 19:57] VITALS: BP 142/87; PULSE 69; RESP 15; TEMP 36.8; O2SAT 96; BMI 29.7
--- NOTE | 2018-09-12 22:49 | CM.ED ---
Social Work Note Referral from physician as pt is requesting psychiatric medications to be changed. Face to face with the pt in and introduced self and role at [facility]. fiscal manager from [facility] present at bedside. Pt states that the psychiatrist at [facility] where she was placed on 09/04 changed her medications and she has had an increase in her tremor. Throughout conversation pt is able to control the tremor when needed while she eats her sandwich. Discuss that this appears to be chronic as it was witnessed on her last ED visit. Pt states it has worsened. Educate the pt that the ED physician is not a psychiatrist and cannot adjust her medications. States that she sees Corinne De at the [facility] on Friday 09/15 at 1530. Expresses that she does not feel safe returning home with the tremor. Request that she elaborate and the pt states that she is worried something will happen to her if she is not able to assist herself. Explain that the tremor is not going to impair her this much. Again states that she does not feel safe. Inquire what her solution would be and what her expectation at this point is. Pt states for her medications to be adjusted. Again explain this is not going to happen at the ED and she needs to discuss with her psychiatrist on Tuesday. She requests for crisis to see her. Update physician who is in agreement in the event that crisis can aid in getting the pt an appointment with the psychiatrist at their agency sooner. Crisis to be notified. EDCP on pt to be submitted to Quality Team this week for approval. SW to continue to follow and assist as needed. Shara Gasca, CONCRETE POURER, VISUAL STYLIST
--- NOTE | 2018-09-12 22:50 | ED.RN ---
CALLED CRISIS TO SEE THIS PT, ALFONSO IS REGISTERED DIETITIAN
--- NOTE | 2018-09-12 23:06 | CM.ED ---
Social Work Note Crisis was contacted and upon review state that this is not necessarily crisis appropriate as pt is not expressing SI, HI or psychosis. Marta states that if the physician is agreeable they would recommend discharge home and setup an appointment with her in the morning. Reports that the pt has called them three times tonight because she was tired and because she did not feel safe in her home. Discussed with physician who is agreeable. Face to face with pt who reports that 9am would work. Notify Marta and the pt is scheduled with Prisca for a crisis appointment on 09/13 at 0900.
--- NOTE | 2018-09-12 23:09 | CM.ED ---
Social Work Note Crisis was contacted and upon review state that this is not necessarily crisis appropriate as pt is not expressing SI, HI or psychosis. Marta states that if the physician is agreeable they would recommend discharge home and setup an appointment with her in the morning. Reports that the pt has called them three times tonight because she was tired and because she did not feel safe in her home. Discussed with physician who is agreeable. Face to face with pt who reports that 9am would work. Notify Marta and the pt is scheduled with Prisca for a crisis appointment on 09/13 at 0900. Pt again states she is scared to go home. Inquire why and she states she is worried about the side effects. Inform her she will need to request the physician's recommendation of whether she misses one dose if that will be detrimental or not. Also inform that if she is discharged and symptoms worsen to contact [facility] or ED. Understanding expressed. PLAN: Discharge home with f/u appointment at [facility] at 0900. Shara Gasca, EQUINE PHARMACOLOGY TECHNICIAN, [facility]
--- NOTE | 2018-09-12 23:10 | ED.DCSUM_ITS ---
- ER Visit Summary Date of Service: 09/12/18 Chief Complaint: Tremor History of Present Illness: The patient is a 37 F who presents with tremor to her right hand that has been constant for the past month. Patient thinks it is due to the Trileptal she was recently started on. Patient states she is having difficulty controlling her hand at times. Patient states that the tremors improve when she does not take her medication. Patient states the tremors localized to her right hand. Patient denies any headache. Patient denies any paresthesias or weakness. Patient states she wants her medications adjusted tonight. Physical Examination: Vital signs are stable. Patient is afebrile. Patient is in no acute distress. Cranial nerves II through XII are intact. Strength is 5/5 bilaterally upper and lower extremities. There are no sensory deficits noted. Oral mucosa was pink and moist. Neck is supple. Trachea is midline. There is no JVD noted. Heart was regular rate and rhythm. Lungs are clear and equal bilaterally. Abdomen is soft and nontender. The remaining physical exam is within normal limits. Emergency Department Course and Treatment: bulk intake worker was in to see the patient. She was able to arrange for the patient to have an appointment tomorrow with a counselor at crisis counseling. Patient was instructed to follow-up with his appointment. Patient was also instructed to follow-up with her psychiatrist in 3 days as previously scheduled. Patient was advised to continue her medications as prescribed. Patient understood. All questions were answered. Disposition: Discharge home Impression: Essential tremor right hand This note was generated with [employer] dictation software. It may contain incorrect words, spelling, and punctuation that were not noted in review of the chart prior to signing ED Disposition - Plan for ED Patient: Disposition: Home or Assisted Living Chief Complaint: General Illness Diagnosis: Tremor Instructions: Essential Tremor Disorder Referrals: Mallorie Alexis NP-C [Primary Care Provider] - Additional Instructions: You will be able to see a counselor at the crisis counseling center tomorrow morning. Please follow-up with that appointment.
[2018-09-12 23:38] VITALS: PULSE 75; RESP 14; O2SAT 97
--- NOTE | 2018-09-21 12:32 | CM.ED ---
Social Work Note EDCP was approved on 09/14/17. Entered into Medical chart and mailed out to pt this date (certified mail). Where to Go, When to Go, Nurse Lines, Taxi Voucher application and EDCP mailed to pt in packet. Pt was also referred to [facility] Community Plan CM Team this date [[phone]; [id number]]. EMILE Albarran, [facility]
== END 2018-09-12 23:38 | disposition home or self-care (01) ==
PROVIDERS: Emergency Provider Emergency Medicine; Family Provider Nurse Practitioner Family; PCP Nurse Practitioner Family
DX: G25.0 Essential tremor (principal); J02.9 Acute pharyngitis, unspecified; M54.9 Dorsalgia, unspecified; Z87.891 Personal history of nicotine dependence; F31.9 Bipolar disorder, unspecified; F41.9 Anxiety disorder, unspecified
CPT/HCPCS: 99282

== ENCOUNTER 2018-09-20 17:18 | Emergency (ER) | payer MEDICAID, SELFPAY ==
[2018-09-20 17:20] VITALS: BP 140/75; PULSE 89; RESP 18; TEMP 36.6; O2SAT 99; BMI 28.6
--- NOTE | 2018-09-20 17:57 | ED.VISSUMM ---
- ER Visit Summary Date of Service: 09/20/18 Chief Complaint: Medication interaction History of Present Illness: The patient is a 37 F with concerns for medication interaction. The patient takes propranolol and she is a smoker. She says that the pharmacist who gave her her medications told her that she was at risk for a stroke. The patient has no symptoms. Denies weakness, speech changes, vision changes, chest pain, shortness of breath, or any symptoms at all. She has been trying to stop smoking and she also purchased some nicotine gum. She wanted to know if the nicotine gum was safe with propranolol. Physical Examination: Afebrile and vital signs unremarkable. Patient is alert and oriented. No acute distress. HEENT exam unremarkable. Cranial nerves grossly intact. Heart regular. Lungs clear. Abdomen soft. No focal weakness or numbness. Test Results: None performed Emergency Department Course and Treatment: Patient has a psychiatric history and also takes Lamictal, invega, and Cogentin. I was initially concerned that she might be paranoid as she was telling me she was worried she was going to have a heart attack and stroke if she smoked. On further discussion, it sounds like a misunderstanding that she had with the pharmacist. I told her that smoking does increase her risk of heart attack and stroke and encouraged her to stop smoking. I felt that Nicorette gum was safer, and it would not interact with her propranolol. We went over her other medications, and she will continue them. She said that she wanted to talk to her psychiatrist about decreasing dosages. I advised her to continue her medications as prescribed and to speak with her psychiatrist. She said she was not suicidal or homicidal. She said she will continue taking her medication. She is denying any hallucinations. She feels reassured and does not seem to be paranoid. Patient will be discharged to follow-up with her doctor. Return for any new or worsening issues. Treatment Plan: As above Disposition: Discharge Impression: 1. Smoking cessation This note was generated with [employer] software. It may contain incorrect words, spelling, and punctuation that were not noted in review of the chart prior to signing ED Disposition - Plan for ED Patient: Chief Complaint: Other, Pain/Inj Referrals: Mallorie Alexis NP-C [Primary Care Provider] -
--- NOTE | 2018-09-20 18:01 | ED.DEP ---
ED Disposition - Plan for ED Patient: Chief Complaint: Other, Pain/Inj Instructions: The Benefits of Living Smoke Free Referrals: Mallorie Alexis NP-C [Primary Care Provider] -
--- OUTSIDE RECORDS SUMMARY | 2018-11-25 17:00 | XMS RPT_ITS ---
:1980 Author Organization OHIP Support Name Relationship Address Phone LINISAMAR PattersonE Unavailable [address] + [place] [address] [address] Unavailable [address] + [place] [address] LINZ, Unavailable [address] + [place] [address] [address]available [address] + [place] [address] LINZ, Unavailable [address] + [place] [address] [address]available [address] + [place] [address] LINZ, Unavailable [address] + [place] [address] [address]available [address] + [place] [address] LINZ, Unavailable [address] + [place] [address] UE Unavailable Unavailable Unavailable LINZ, Unavailable [address] + [place] [address] UE Unavailable Unavailable Unavailable LINZ, Unavailable [address] + [place] [address] UE Unavailable Unavailable Unavailable LINZ, Unavailable [address] + [place] [address] UE Unavailable Unavailable Unavailable LINZ, Unavailable [address] + [place] [address] UE Unavailable Unavailable Unavailable LINZ, Unavailable [address] + [place] [address] UE Unavailable Unavailable Unavailable LINZ, Unavailable [address] + [place] [address] UE Unavailable Unavailable Unavailable LINZ, Unavailable [address] + [place] [address] UE Unavailable Unavailable Unavailable LINZ, Unavailable [address] + [place] [address] UE Unavailable Unavailable Unavailable LINZ, Unavailable [address] + [place] [address] UE Unavailable Unavailable Unavailable LINZ, Unavailable [address] + [place] [address] UE Unavailable Unavailable Unavailable LINZ, Unavailable [address] + [place] [address] UE Unavailable Unavailable Unavailable LINZ, Unavailable [address] + [place] [address] UE Unavailable Unavailable Unavailable LINZ, Unavailable [address] + [place] [address] UE Unavailable Unavailable Unavailable LINZ, Unavailable [address] + [place] [address] UE Unavailable Unavailable Unavailable LINZ, Unavailable [address] + [place] [address] UE Unavailable Unavailable Unavailable LINZ, Unavailable [address] + [place] [address] UE Unavailable Unavailable Unavailable LINZ, Unavailable [address] + [place] [address] UE Unavailable Unavailable Unavailable LINZ, Unavailable [address] + [place] [address] UE Unavailable Unavailable Unavailable LINZ, Unavailable [address] + [place] [address] UE Unavailable Unavailable Unavailable LINZ, Unavailable [address] + [place] [address] UE Unavailable Unavailable Unavailable LINZ, Unavailable [address] + [place] [address] UE Unavailable Unavailable Unavailable LINZ, Unavailable [address] + [place] [address] UE Unavailable Unavailable Unavailable LINZ, Unavailable [address] + [place] [address] UE Unavailable Unavailable Unavailable LINZ, Unavailable [address] + [place] [address] UE Unavailable Unavailable Unavailable LINZ, Unavailable [address] + [place] [address] UE Unavailable Unavailable Unavailable LINZ, Unavailable [address] + [place] [address] UE Unavailable Unavailable Unavailable LINZ, Unavailable [address] + [place] [address] UE Unavailable Unavailable Unavailable LINZ, Unavailable [address] + [place] [address] UE Unavailable Unavailable Unavailable LINZ, Unavailable [address] + [place] [address] UE Unavailable Unavailable Unavailable LINZ, Unavailable [address] + [place] [address] UE Unavailable Unavailable Unavailable LINZ, Unavailable [address] + [place] [address] UE Unavailable Unavailable Unavailable LINZ, Unavailable [address] + [place] [address] UE Unavailable Unavailable Unavailable LINZ, Unavailable [address] + [place] [address] UE Unavailable Unavailable Unavailable LINZ, Unavailable [address] + [place] [address] UE Unavailable Unavailable Unavailable Care Team Providers Name Role Phone Corin Harrison MD Attending Unavailable PHYSICIAN, NOT RECORDED Primary Care Unavailable WIN MEJIA Attending Unavailable PEDRO LUIS MOSER Attending Unavailable NANCIE DOVER Attending Unavailable PEDRO LUIS MOSER Referring Unavailable WIN MEJIA Referring Unavailable KIRIT, YOGI Attending Unavailable TESTKETURAH, YOGI Attending Unavailable TESTRARADHA, YOGI Referring Unavailable MAUREEN ZELAYA (PA) Attending Unavailable GAMEZ, VERONICA (DISTRIBUTION CENTER ASSISTANT) Attending Unavailable GAMEZ, VERONICA (DISTRIBUTION CENTER ASSISTANT) Attending Unavailable GAMEZ, VERONICA (DISTRIBUTION CENTER ASSISTANT) Attending Unavailable GAMEZ, VERONICA (DISTRIBUTION CENTER ASSISTANT) Referring Unavailable PODLOGCHAYITO VELEZ (DISTRIBUTION CENTER ASSISTANT) Attending Unavailable WISWELL, FRANCISCA Attending Unavailable WISWELL, FRANCISCA Attending Unavailable QUIN MARTINEZ (AGRICULTURAL ENGINEER) Attending Unavailable WISWELL, FRANCISCA Referring Unavailable REDD HAMEED Attending Unavailable Swihart DIRECTOR [employer] [place], Mallorie Primary Care Unavailable Stephan Witt Attending Unavailable Swihart DIRECTOR [employer], Mallorie Primary Care Unavailable Lucero Floyd Attending Unavailable Swihart DIRECTOR [employer], Mallorie Primary Care Unavailable Ho Kathleen Attending Unavailable Swihart DIRECTOR [employer], Mallorie Primary Care Unavailable Stephan Witt Attending [facility]available [facility] Primary Care Unavailable Jose G Iqbal Attending Unavailable [place] Attending Unavailable Swihart DIRECTOR [employer], Mallorie Primary Care Unavailable Swihart DIRECTOR [employer], Mallorie Primary Care Unavailable Jose G Iqbal Attending Unavailable Tameka Beckman Attending Unavailable [facility] Primary Care Unavailable [facility] Primary Care Unavailable Raulito Muhammad Attending Unavailable Yariel Hilton Attending Unavailable Swihart DIRECTOR [employer], Mallorie Primary Care Unavailable Swihart DIRECTOR [employer], Mallorie Primary Care Unavailable Stephan Witt Attending Unavailable Swihart DIRECTOR [employer], Mallorie Primary Care Unavailable Juana Christopher Attending Unavailable Swihart DIRECTOR [employer], Mallorie Primary Care Unavailable Ronald Gonzalez Attending Unavailable Swihart DIRECTOR [employer], Mallorie Primary Care Unavailable Lucero Floyd Attending Unavailable Swihart DIRECTOR [employer], Mallorie Primary Care Unavailable Ho Kathleen Attending Unavailable Swihart DIRECTOR [employer], Mallorie Primary Care Unavailable Jose G Iqbal Attending Unavailable Swihart DIRECTOR [employer], Mallorie Primary Care Unavailable Blue Garcia Attending Unavailable Swihart DIRECTOR [employer], Mallorie Primary Care Unavailable [place] Attending Unavailable [facility] Attending Unavailable Swihart DIRECTOR [employer], Mallorie Referring Unavailable [facility] Primary Care Unavailable Hans Ramos Attending Unavailable Mallorie Juares Referring Unavailable CLINIC, [...] Primary Care Unavailable Duncan Velásquez Attending Unavailable WarFrank boyce Attending Unavailable [facility] Primary [...] TYPE CONDITION / CODE ATTENDING STATUS SOURCE 09/15/2018 Active Other fatigue / NA Active [facility] R53.83(ICD-10) [place] Repository 07/12/2018 Unknown Lisseth45.909 - Hans Ramos Active [facility] Unspecified asthma, Community uncomplicated / Hospital J45.909(ICD-10) Repository 06/01/2018 Active Encounter for NA Active [facility] screening for [facility] [place] infections with a Repository predominantly sexual mode of transmission / Z11.3(ICD-10) 06/01/2018 Active High risk NA Active [facility] heterosexual [place] behavior / Repository Z72.51(ICD-10) 03/30/2018 Active Unknown / VERONICA GAMEZ Active [facility] UNK(Unknown) (DISTRIBUTION CENTER ASSISTANT) [place] Repository 05/03/2018 Unknown K59.00 - [place] Active [facility] Constipation, Community unspecified / Hospital K59.00(ICD-10) Repository 03/24/2018 Active Pain in left foot / NA Active [facility] M79.672(ICD-10) [facility] [place] Repository 05/03/2018 Unknown R10.9 - Unspecified LowBlue olmos Active [place] abdominal pain / Community R10.9(ICD-10) Hospital Repository 05/03/2018 Unknown M25.552 - Pain in [place], Active [facility] left hip / [facility] Community M25.552(ICD-10) Hospital Repository 05/03/2018 Unknown R05 - Cough / Le, Ronald Active [facility] R05(ICD-10) [facility] Repository 02/15/2018 Active Encounter for NA Active [facility] screening mammogram [place] for malignant Repository neoplasm of breast / Z12.31(ICD-10) 05/03/2018 Unknown R06.02 - Shortness StephanieStephan Active [facility] of breath / Community R06.02(ICD-10) Hospital Repository 05/03/2018 Unknown T67.5XXA - Heat Lida Yariel Active [place] exhaustion, Community unspecified, Hospital initial encounter / Repository T67.5XXA(ICD-10) 05/03/2018 Unknown R42 - Dizziness and Raulito Muhammad Active [place] giddiness / Community R42(ICD-10) Hospital Repository 05/03/2018 Unknown R10.13 - Epigastric Ahmed, Rami Active [place] pain / Community R10.13(ICD-10) Hospital Repository 05/03/2018 Unknown R51 - Headache / Marely Jose G Active [place] R51(ICD-10) [facility] Repository PROCEDURES PROCEDURES No Procedure Records FoundRESULTS RESULTS EMERGENCY DEPARTMENT Observed: 09/20/2018 Status: F Source: [place] SUMMARY 11:50 PM [facility] REPOSITORY [facility] Medical Records Department [address] [place] [address] Emergency Department Summary 09/20/18 1757 MR#: [id number] Acct: [id number] Name: ANGELICA ANDUJAR Rep #: [id number] : 1980 37 From: Stephan Witt MD PCP: Mallorie Juares Status: DEP ER - ER Visit Summary Date of Service: 09/20/18 Chief Complaint: Medication interaction History of Present Illness: The patient is a 37 F with concerns for medication interaction. The patient takes propranolol and she is a smoker. She says that the pharmacist who gave her her medications told her that she was at risk for a stroke. The patient has no symptoms. Denies weakness, speech changes, vision changes, chest pain, shortness of breath, or any symptoms at all. She has been trying to stop smoking and she also purchased some nicotine gum. She wanted to know if the nicotine gum was safe with propranolol. Physical Examination: Afebrile and vital signs unremarkable. Patient is alert and oriented. No acute distress. HEENT exam unremarkable. Cranial nerves grossly intact. Heart regular. Lungs clear. Abdomen soft. No focal weakness or numbness. Test Results: None performed Emergency Department Course and Treatment: Patient has a psychiatric history and also takes Lamictal, invega, and Cogentin. I was initially concerned that she might be paranoid as she was telling me she was worried she was going to have a heart attack and stroke if she smoked. On further discussion, it sounds like a misunderstanding that she had with the pharmacist. I told her that smoking does increase her risk of heart attack and stroke and encouraged her to stop smoking. I felt that Nicorette gum was safer, and it would not interact with her propranolol. We went over her other medications, and she will continue them. She said that she wanted to talk to her psychiatrist about decreasing dosages. I advised her to continue her medications as prescribed and to speak with her psychiatrist. She said she was not suicidal or homicidal. She said she will continue taking her medication. She is denying any hallucinations. She feels reassured and does not seem to be paranoid. Patient will be discharged to follow-up with her doctor. Return for any new or worsening issues. Treatment Plan: As above Disposition: Discharge Impression: 1. Smoking cessation This note was generated with Declaraation software. It may contain incorrect words, spelling, and punctuation that were not noted in review of the chart prior to signing ED Disposition - Plan for ED Patient: Chief Complaint: Other, Pain/Inj Referrals: Mallorie Alexis NP-C [Primary Care Provider] - What to do if you have Problems For any increased pain, shortness of breath, bleeding, nausea or vomiting, chest pain, or any unexpected problems, contact your Primary Care Provider. Call [facility] ([phone]) or report to the closest Emergency Room. Call 911 if necessary. 09/20/182349 <Electronically signed by Stephan Witt MD> Date Stephan Witt MD Cosigner Signature (If Indicated): Date CC: Mallorie DE LA TORRE DISCHARGE INSTRUCTION Observed: 09/20/2018 Status: F Source: [place] 11:50 PM [facility] REPOSITORY [facility] Medical Records Department [address] [place] [address] Discharge Instruction 09/20/18 1801 MR#: [id number] Acct: [id number] Name: ANGELICA ANDUJAR Rep #: [id number] : 1980 37 From: Stephan Witt MD PCP: Mallorie Juares Status: DEP ER ED Disposition - Plan for ED Patient: Chief Complaint: Other, Pain/Inj Instructions: The Benefits of Living Smoke Free Referrals: Mallorie Alexis NP-C [Primary Care Provider] - What to do if you have Problems For any increased pain, shortness of breath, bleeding, nausea or vomiting, chest pain, or any unexpected problems, contact your Primary Care Provider. Call [facility] ([phone]) or report to the closest Emergency Room. Call 911 if necessary. 09/20/182349 <Electronically signed by Stephan Witt MD> Date Stephan Witt MD Cosigner Signature (If Indicated): Date CC: Mallorie DE LA TORRE PROGRESS Observed: 09/20/2018 Status: COMPLETED Source: [place] 1:51 PM [facility] REPOSITORY HNO ID: [id number] Author: Keshia Carranza Service: (none) Author Type: Nurse Practitioner Type: Progress Notes Filed: 09/20/2018 2:05 PM Note Text: Subjective HPI Pt presents with c/o 3 day hx runny nose, sneezing, coughing, wheezing. Denies fever, chills, dyspnea. Was exposed to friend with similar sx. Has not taken any OTC medications. Has albuterol inhaler, but has not used for wheezing yet. Review of Systems Constitutional: Negative for chills and fever. HENT: Positive for congestion. Negative for ear discharge, ear pain, sinus pain, sore throat and tinnitus. Respiratory: Positive for cough and wheezing. Negative for sputum production and shortness of breath. Cardiovascular: Negative for chest pain. Skin: Negative for rash. Neurological: Negative for headaches. Objective Physical Exam Constitutional: She is oriented to person, place, and time and well-developed, well-nourished, and in no distress. No distress. HENT: Head: Normocephalic. Right Ear: Hearing, tympanic membrane, external ear and ear canal normal. Left Ear: Hearing, tympanic membrane, external ear and ear canal normal. Nose: Nose normal. Right sinus exhibits no maxillary sinus tenderness and no frontal sinus tenderness. Left sinus exhibits no maxillary sinus tenderness and no frontal sinus tenderness. Mouth/Throat: Uvula is midline, oropharynx is clear and moist and mucous membranes are normal. No oropharyngeal exudate, posterior oropharyngeal edema, posterior oropharyngeal erythema or tonsillar abscesses. Eyes: Pupils are equal, round, and reactive to light. Conjunctivae are normal. Right eye exhibits no discharge. Left eye exhibits no discharge. Neck: Neck supple. Cardiovascular: Normal rate, regular rhythm and normal heart sounds. Exam reveals no gallop and no friction rub. No murmur heard. Pulmonary/Chest: Effort normal and breath sounds normal. No accessory muscle usage. No tachypnea. No respiratory distress. She has no decreased breath sounds (CTA, good air movement throughout, no cough noted during exam.). She has no wheezes. She has no rhonchi. She has no rales. Lymphadenopathy: She has no cervical adenopathy. Neurological: She is alert and oriented to person, place, and time. Skin: Skin is warm. She is not diaphoretic. BP 128/74 Pulse 76 Temp 36.9 ?C (98.5 ?F) (Tympanic) Resp 16 Wt 87.1 kg (192 lb) BMI 30.07 kg/m? .Patient presents with: Nasal Congestion: drainage, cough, wheezing, sneezing x 1 week PAST MEDICAL HISTORY Diagnosis Date - 11/2009 [...] Doxycycline; Dust Mites; Flagyl [Metronidazole Hcl]; Hand Ends Down Checker [Ethyl Alcohol (Skin Cleanser)]; Iodine; Lactose Intolerance [Lactase]; Latex, Natural Rubber; [place]; Meloxicam; Metronidazole; Mold; Morphine; Penicillin; Pet Dander [Other]; Prednisone; Seasonal Allergies; Singulair [Montelukast]; Sodium Lauryl Sulfate; Trees; Zofran [Ondansetron Hcl (Pf)] MEDICATIONS naproxen (NAPROSYN) 500 mg tablet Take 500 mg by mouth twice daily with meals. nicotine polacrilex (NICORELIEF) 2 mg gum Take 1 Each by mouth every 2 hours as needed. propranolol (INDERAL) 10 mg tablet Take 1 tablet by mouth three times daily. vitamin A and D ointment Apply 1 application to affected area as needed. benztropine (COGENTIN) 0.5 mg tablet Take 0.5 mg by mouth twice daily. sodium chloride 0.9 % IRRIGATION Combine 5 mL of the irrigation with 5 mL of hydrogen peroxide. Gray over vulvar area as needed after using restroom. beclomethasone (QVAR) 80 mcg/actuation inhaler Inhale 2 Puffs as instructed twice daily. OXcarbazepine (TRILEPTAL) 600 mg tablet Take 600 mg by mouth twice daily. Taking 900mg MELATONIN ORAL Take by mouth. 6mg paliperidone ER (INVEGA) 9 mg 24 hr tablet Take 9 mg by mouth once daily. sodium chloride (AYR, OCEAN) 0.65 % nasal spray Use 1 Gray in the nose as needed for Cold/Allergy [...] Take 1 capsule by mouth once daily. guaiFENesin (MUCINEX) 600 mg 12 hr tablet Take 2 tablets by mouth twice daily. benzonatate (TESSALON PERLES) 100 mg capsule Take 1 capsule by mouth three times daily as needed. risperiDONE (RISPERDAL) 2 mg tablet Take 2 mg by mouth twice daily. lidocaine (XYLOCAINE) 2 % jelly Apply 1 application to affected area as needed. 2 times per day. Vaginal Lubricant (REPLENS) gel Use 1 application vaginally once daily as needed. Pseudoephedrine HCl (SUDAFED 12 HOUR) 120 mg TbER Take 1 tablet by mouth every 12 hours as needed. acetaminophen (TYLENOL ORAL) Take 325 mg by mouth. fluticasone (FLONASE) 50 mcg/actuation nasal spray Use 2 Sprays in each nostril once daily. FAMILY HISTORY Problem Relation Age [...] Alcohol use Yes Comment: Seldom ASSESSMENT/PLAN: 1. Viral URI with cough - ICD9: 465.9, ICD10: J06.9, B97.89 - Discussed viral etiology and rationale for treatment. - Symptomatic treatment with prn analgesia - Supportive care with fluids and rest - Follow up in 3-5 days if symptoms persist or sooner if worsening of symptoms - GUAIFENESIN ER 600 MG TABLET, EXTENDED RELEASE 12 HR - BENZONATATE 100 MG CAPSULE The patient is instructed to return or seek emergency treatment if symptoms become worse or with any acute change in condition. The patient verbalizes understanding and is in agreement with plan of care. Keshia Carranza CNP CNOV Observed: 09/20/2018 Status: COMPLETED Source: [place] 1:15 PM [facility] REPOSITORY Office Visit ([facility] ANGELICA ANDUJAR ([id number]) 1980 F Date Time Provider Department 09/20/18 1:15 PM KESHIA CARRANZA [facility] During your visit today, we recorded the following information about you: Temperature Pulse Respiration Blood pressure 98.5 degrees 76/minute 16/minute 128/74 Weight 87.1 kg Keshia Carranza APRN.CNP 09/20/2018 1:37 PM Signed [facility] PATIENT INFO COMMON COLD OVERVIEW The common cold is one of the most frequent illnesses in the [place]. Although most colds are mild and resolve within a short time period, colds cost billions of dollars per year, mostly due to lost time at work and school. COMMON COLD CAUSES The common cold is a group of symptoms caused by one of a large number of viruses. Rhinoviruses cause the greatest number of colds; there are more than 100 different varieties of rhinovirus. Most viruses cause a person to be ill only once. However, due to the large number of viruses, a person can have a cold multiple times throughout his or her lifetime. The average adult experiences two to three colds per year, while children average 8 to 12 colds per year. Colds are transmitted from [id number]. Less often, the virus can be transmitted by touching a surface. Direct contact ? People with colds typically carry the cold virus on their hands. The virus may remain alive on the skin and capable of infecting another person for at least two hours. Thus, if a sick person shakes someone's hand and that individual then touches his eye, nose, or mouth, the virus can be transmitted and later infect that person. Infection from particles on surfaces ? Some cold viruses can live on surfaces (such as a counter top, door handle, or phone) for several hours. Inhaling viral particles ? Droplets containing viral particles can be breathed, coughed, or sneezed into the air by a person with a cold. The virus can be transmitted to others if another person is standing close (a few feet) and the droplet touches that person?s eye, nose, or mouth. Covering the mouth while coughing or sneezing greatly reduces this risk. Most cold viruses are not spread by saliva. Thus, kissing itself is not likely to transmit the common cold, but close direct contact can. Colds are not caused by cold climates or being exposed to cold air. However, some types of virus cause more colds during certain seasons (eg, fall and winter versus spring). COMMON COLD SIGNS AND SYMPTOMS The common cold usually causes nasal congestion, runny nose, and sneezing. A sore throat may be present on the first day but usually resolves quickly. If a cough occurs, it generally develops on about the fourth or fifth day of symptoms, typically when congestion and runny nose are usually resolving. COMMON COLD COMPLICATIONS In most cases, colds do not cause serious illness. Most colds last for three to seven days, although many people continue to have symptoms (coughing, sneezing, congestion) for up to two weeks. Some viruses that cause the common cold can also depress the immune system or cause swelling in the lining of the nose or airways; this can, in turn, lead to a new viral infection or bacterial infection. ? One of the more common complications is sinusitis, which is usually caused by viruses and rarely (about 2 percent of the time) by bacteria. However, it can be difficult to distinguish bacterial sinusitis from sinusitis caused by a cold because the signs and symptoms can be similar Having thick or yellow to green-colored nasal discharge does not mean that bacterial sinusitis has developed; discolored nasal discharge is a normal phase of the common cold. ? Lower respiratory infections, such as pneumonia or bronchitis, may develop following a cold. ? Infection of the middle ear, or otitis media, can accompany or follow a cold. ? The influenza virus, which causes the flu, can also cause features similar to those of a cold. However, the flu usually causes other signs and symptoms (fever, body aches) and is more serious than a cold. COMMON COLD TREATMENT There is no specific treatment for the viruses that cause the common cold. Most treatments are aimed at relieving some of the symptoms of the cold, but do not shorten or cure the cold. Antibiotics are not useful for treating the common cold; antibiotics are only used to treat illnesses caused by bacteria, not viruses. The symptoms of a cold will resolve over time, even without any treatment. The following are treatments that may reduce the symptoms caused by the common cold. People with underlying medical conditions and those who use other okrp-zmi-[id number] or prescription medications should speak with their healthcare provider or pharmacist to ensure that it is safe to use these treatments. Runny nose and nasal congestion ? Runny nose and congestion may improve with the use of decongestants. Pseudoephedrine is a decongestant that can improve nasal congestion. Most drugstores in the [place] carry pseudoephedrine behind the counter, so it must be requested from the pharmacist (a prescription is not required). Antihistamines such as diphenhydramine (Benadryl?) may also help, but can cause side effects such as drowsiness and drying of the eyes, nose, and mouth. Nasal inhalers, including ipratropium bromide (Atrovent?, available by prescription) may relieve runny nose and sneezing while cromolyn sodium (NasalCrom?, a non-prescription medicine) may relieve runny nose, cough, and sneezing. Other nasal sprays such an oxymetazoline (Afrin? and others) can also give temporary relief of nasal congestion. However, these sprays should never be used for more than two to three days; use for more than three days use can worsen congestion. Nasal irrigation and saline sprays ? Rinsing the nose with a salt-water (saline) solution is called nasal irrigation or nasal lavage. Saline is also available in a standard nasal spray, although this is not as effective as using larger amounts of water in an irrigation. Nasal irrigation is particularly useful for treating drainage down the back of the throat, sneezing, nasal dryness, and congestion. The treatment helps by rinsing out allergens and irritants from the nose. Saline rinses also clean the nasal lining and can be used before applying sprays containing medications, to get a better effect from the medication. Nasal lavage with warmed saline can be performed as needed, once per day, or twice daily for increased symptoms. Nasal lavage carries few risks when performed correctly. Saline nasal sprays and irrigation kits can be purchased [id number]. Saline mixes can also be purchased or patients can make their own solution. A variety of devices, including bulb syringes, Neti pots, and bottle sprayers, may be used to perform nasal lavage; instructions for nasal lavage are provided in the table. At least 200 mL (about 3/4 cup) of fluid is recommended for each nostril. Sore throat and headache ? Sore throat and headache are best treated with a mild pain reliever such as acetaminophen (Tylenol?) or a non-steroidal anti-inflammatory agent such as ibuprofen or naproxen (Motrin? or Aleve?). Cough ? Common cough medicine ingredients include guaifenesin and dextromethorphan; these are often combined with other medications in nqcg-ktd-dbzlqxh cold formulas. However, the benefit of cough medicines is likely to be small to non-existent. In clinical trials, cough suppressants were no more effective in reducing the duration or severity of coughing due to cold than a placebo (a non-drug substitute). Antibiotics ? Antibiotics should not be used to treat an uncomplicated common cold. As noted above, colds are caused by viruses. Antibiotics treat bacterial, not viral infections. Alternative treatments ? Heated, humidified air can improve symptoms of nasal congestion and runny nose, and causes few to no side effects. PREVENTION Hand washing is an essential and highly effective way to prevent the spread of infection. Hands should be wet with water and plain soap, and rubbed together for 15 to 30 seconds. Special attention should be paid to the fingernails, between the fingers, and the wrists. Hands should be rinsed thoroughly, and dried with a single use towel. Alcohol-based hand rubs are a good alternative for disinfecting hands if a sink is not available. Hand rubs should be spread over the entire surface of hands, fingers, and wrists until dry, and may be used several times. These rubs can be used repeatedly without skin irritation or loss of effectiveness. Hand rubs are available as a liquid or wipe in small, portable sizes that are easy to carry in a pocket or handbag. When a sink is available, visibly soiled hands should be washed with soap and water. Hands should be washed before preparing food and eating, and after coughing, blowing the nose, or sneezing. While it is not always possible to limit contact with people who may be infected with a cold, touching the eyes, nose, or mouth after direct contact should be avoided when possible. In addition, tissues should be used to cover the mouth when sneezing or coughing. These used tissues should be disposed of promptly. Sneezing/coughing into the sleeve of one's clothing (at the inner elbow) is another means of containing sprays of saliva and secretions and does not contaminate the hands. SUMMARY ? The average adult experiences two to three colds per year, while children average 8 to 12 colds per year. ? Symptoms of the common cold usually include nasal congestion, runny nose, and sneezing. They typically last for three to seven days, although many people have symptoms (coughing, sneezing, congestion) for up to two weeks. ? People with colds typically carry the cold virus on their hands, where it can infect another person for at least two hours. Some cold viruses can live on surfaces (such as a counter top, door handle, or phone) for several hours. Droplets containing viral particles can be breathed, coughed, or sneezed into the air. ? There is no specific treatment for colds. Treatment may reduce some of the symptoms of the cold, but do not shorten or cure the cold. Antibiotics are not useful for treating the common cold. Hand washing can prevent the spread of infection. Hands should be wet with water and plain soap, and rubbed together for 15 to 30 seconds. Alcohol-based hand rubs are a good alternative for disinfecting hands if a sink is not available Keshia Carranza APRN.[facility] ASSISTANT 09/20/2018 2:05 PM Signed Subjective HPI Pt presents with c/o 3 day hx runny nose, sneezing, coughing, wheezing. Denies fever, chills, dyspnea. Was exposed to friend with similar sx. Has not taken any OTC medications. Has albuterol inhaler, but has not used for wheezing yet. Review of Systems Constitutional: Negative for chills and fever. HENT: Positive for congestion. Negative for ear discharge, ear pain, sinus pain, sore throat and tinnitus. Respiratory: Positive for cough and wheezing. Negative for sputum production and shortness of breath. Cardiovascular: Negative for chest pain. Skin: Negative for rash. Neurological: Negative for headaches. Objective Physical Exam Constitutional: She is oriented to person, place, and time and well-developed, well-nourished, and in no distress. No distress. HENT: Head: Normocephalic. Right Ear: Hearing, tympanic membrane, external ear and ear canal normal. Left Ear: Hearing, tympanic membrane, external ear and ear canal normal. Nose: Nose normal. Right sinus exhibits no maxillary sinus tenderness and no frontal sinus tenderness. Left sinus exhibits no maxillary sinus tenderness and no frontal sinus tenderness. Mouth/Throat: Uvula is midline, oropharynx is clear and moist and mucous membranes are normal. No oropharyngeal exudate, posterior oropharyngeal edema, posterior oropharyngeal erythema or tonsillar abscesses. Eyes: Pupils are equal, round, and reactive to light. Conjunctivae are normal. Right eye exhibits no discharge. Left eye exhibits no discharge. Neck: Neck supple. Cardiovascular: Normal rate, regular rhythm and normal heart sounds. Exam reveals no gallop and no friction rub. No murmur heard. Pulmonary/Chest: Effort normal and breath sounds normal. No accessory muscle usage. No tachypnea. No respiratory distress. She has no decreased breath sounds (CTA, good air movement throughout, no cough noted during exam.). She has no wheezes. She has no rhonchi. She has no rales. Lymphadenopathy: She has no cervical adenopathy. Neurological: She is alert and oriented to person, place, and time. Skin: Skin is warm. She is not diaphoretic. BP 128/74 Pulse 76 Temp 36.9 ?C (98.5 ?F) (Tympanic) Resp 16 Wt 87.1 kg (192 lb) BMI 30.07 kg/m? .Patient presents with: Nasal Congestion: drainage, cough, wheezing, sneezing x 1 week PAST MEDICAL HISTORY Diagnosis Date - 11/2009 [...] Doxycycline; Dust Mites; Flagyl [Metronidazole Hcl]; Hand Ends Down Checker [Ethyl Alcohol (Skin Cleanser)]; Iodine; Lactose Intolerance [Lactase]; Latex, Natural Rubber; [place]; Meloxicam; Metronidazole; Mold; Morphine; Penicillin; Pet Dander [Other]; Prednisone; Seasonal Allergies; Singulair [Montelukast]; Sodium Lauryl Sulfate; Trees; Zofran [Ondansetron Hcl (Pf)] MEDICATIONS naproxen (NAPROSYN) 500 mg tablet Take 500 mg by mouth twice daily with meals. nicotine polacrilex (NICORELIEF) 2 mg gum Take 1 Each by mouth every 2 hours as needed. propranolol (INDERAL) 10 mg tablet Take 1 tablet by mouth three times daily. vitamin A and D ointment Apply 1 application to affected area as needed. benztropine (COGENTIN) 0.5 mg tablet Take 0.5 mg by mouth twice daily. sodium chloride 0.9 % IRRIGATION Combine 5 mL of the irrigation with 5 mL of hydrogen peroxide. Gray over vulvar area as needed after using restroom. beclomethasone (QVAR) 80 mcg/actuation inhaler Inhale 2 Puffs as instructed twice daily. OXcarbazepine (TRILEPTAL) 600 mg tablet Take 600 mg by mouth twice daily. Taking 900mg MELATONIN ORAL Take by mouth. 6mg paliperidone ER (INVEGA) 9 mg 24 hr tablet Take 9 mg by mouth once daily. sodium chloride (AYR, OCEAN) 0.65 % nasal spray Use 1 Gray in the nose as needed for Cold/Allergy [...] Take 1 capsule by mouth once daily. guaiFENesin (MUCINEX) 600 mg 12 hr tablet Take 2 tablets by mouth twice daily. benzonatate (TESSALON PERLES) 100 mg capsule Take 1 capsule by mouth three times daily as needed. risperiDONE (RISPERDAL) 2 mg tablet Take 2 mg by mouth twice daily. lidocaine (XYLOCAINE) 2 % jelly Apply 1 application to affected area as needed. 2 times per day. Vaginal Lubricant (REPLENS) gel Use 1 application vaginally once daily as needed. Pseudoephedrine HCl (SUDAFED 12 HOUR) 120 mg TbER Take 1 tablet by mouth every 12 hours as needed. acetaminophen (TYLENOL ORAL) Take 325 mg by mouth. fluticasone (FLONASE) 50 mcg/actuation nasal spray Use 2 Sprays in each nostril once daily. FAMILY HISTORY Problem Relation Age [...] Alcohol use Yes Comment: Seldom ASSESSMENT/PLAN: 1. Viral URI with cough - ICD9: 465.9, ICD10: J06.9, B97.89 - Discussed viral etiology and rationale for treatment. - Symptomatic treatment with prn analgesia - Supportive care with fluids and rest - Follow up in 3-5 days if symptoms persist or sooner if worsening of symptoms - GUAIFENESIN ER 600 MG TABLET, EXTENDED RELEASE 12 HR - BENZONATATE 100 MG CAPSULE The patient is instructed to return or seek emergency treatment if symptoms become worse or with any acute change in condition. The patient verbalizes understanding and is in agreement with plan of care. Keshia Carranza CNP Referring Provider: SELF [[id number]] Allergies As of Date: 09/20/2018 Noted Allergy Reaction ANTI-BACTERIAL CLEANSING (BENZETH*10/26/2012 2 [...] (METRONIDAZOLE HCL) 06/20/2012 4 - Hives 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 (ETHYL ALCOHOL (SK*11/04/2009 2 - Rash Comments: PT HAS SENSITIVE SKIN. O.K. FOR MEDICAL PROFESSIONAL TO USE 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 AND THEN TOUCH HER, BUT SHE HERSELF DOES NOT USE IT. IODINE 02/18/2011 2 - Rash LACTOSE INTOLERANCE (LACTASE) 11/04/2009 LATEX, NATURAL RUBBER 03/17/2018 2 - Rash [place] 12/07/2017 10 - Anaphylaxis MELOXICAM 06/12/2018 16 [...] Zofran causes cramping and constipation Date Reviewed: 09/20/2018 Reviewed by: Bernadine Reeves Ma - Fully Assessed Reason for Visit: Nasal Congestion [235] Cmt: drainage, cough, wheezing, sneezing x 1 week Primary Visit Diagnosis:Viral URI with cough [J06.9, B97.89] Order(s):guaiFENesin (MUCINEX) 600 mg 12 hr tabletTake 2 tablets by mouth twice daily.Disp: 30 tabletRfl: 0 benzonatate (TESSALON PERLES) 100 mg capsuleTake 1 capsule by mouth three times daily as needed.Disp: 40 capsuleRfl: 0 Prescriptions as of 09/20/2018 Sig: NAPROXEN 500 MG TABLET Take 500 mg by mouth twice da* NICOTINE (POLACRILEX) 2 MG GUM Take 1 Each by mouth every 2 * PROPRANOLOL 10 MG TABLET Take 1 tablet by mouth three * VITAMIN A AND D TOPICAL OINTM* Apply 1 application to affect* BENZTROPINE 0.5 MG TABLET Take 0.5 mg by mouth twice da* SODIUM CHLORIDE 0.9 % IRRIGAT* Combine 5 mL of the irrigatio* BECLOMETHASONE DIPROPIONATE 8* Inhale 2 Puffs as instructed * OXCARBAZEPINE 600 MG TABLET Take 600 mg by mouth twice da* MELATONIN ORAL Take by mouth. 6mg PALIPERIDONE ER 9 MG TABLET,E* Take 9 mg by mouth once daily. SODIUM CHLORIDE 0.65 % NASAL * Use 1 Gray in the nose as ne* ALBUTEROL SULFATE HFA 90 MCG/* Inhale 2 Puffs as instructed * FAMOTIDINE 20 MG TABLET Take 1 tablet by mouth at bed* LORATADINE 10 MG TABLET Take 1 tablet by mouth once d* MULTIVITAMIN CAPSULE Take 1 capsule by mouth once * GUAIFENESIN ER 600 MG TABLET,* Take 2 tablets by mouth twice* BENZONATATE 100 MG CAPSULE Take 1 capsule by mouth three* RISPERIDONE 2 MG TABLET Take 2 mg by mouth twice miguelina* LIDOCAINE 2 % MUCOSAL JELLY Apply 1 application to affect* Patient not taking: Reported on 09/20/2018 POLYCARBOPHIL VAGINAL GEL Use 1 application vaginally o* Patient not taking: Reported on 09/20/2018 PSEUDOEPHEDRINE ER 120 MG TAB* Take 1 tablet by mouth every * Patient not taking: Reported on 07/19/2018 TYLENOL ORAL Take 325 mg by mouth. FLUTICASONE 50 MCG/ACTUATION * Use 2 Sprays in each nostril * Patient not taking: Reported on 07/19/2018 Problem List As Of Date 09/20/2018 Noted Resolved Frequency of urination [R35.0] INVALID [...] INVALID FOR* Other instructions from your clinician: EXPRESS CARE PATIENT INFO COMMON COLD OVERVIEW The common cold is one of the most frequent illnesses in the [place]. Although most colds are mild and resolve within a short time period, colds cost billions of dollars per year, mostly due to lost time at work and school. COMMON COLD CAUSES The common cold is a group of symptoms caused by one of a large number of viruses. Rhinoviruses cause the greatest number of colds; there are more than 100 different varieties of rhinovirus. Most viruses cause a person to be ill only once. However, due to the large number of viruses, a person can have a cold multiple times throughout his or her lifetime. The average adult experiences two to three colds per year, while children average 8 to 12 colds per year. Colds are transmitted from awhanw-ob-pkzatu. Less often, the virus can be transmitted by touching a surface. Direct contact ? People with colds typically carry the cold virus on their hands. The virus may remain alive on the skin and capable of infecting another person for at least two hours. Thus, if a sick person shakes someone's hand and that individual then touches his eye, nose, or mouth, the virus can be transmitted and later infect that person. Infection from particles on surfaces ? Some cold viruses can live on surfaces (such as a counter top, door handle, or phone) for several hours. Inhaling viral particles ? Droplets containing viral particles can be breathed, coughed, or sneezed into the air by a person with a cold. The virus can be transmitted to others if another person is standing close (a few feet) and the droplet touches that person?s eye, nose, or mouth. Covering the mouth while coughing or sneezing greatly reduces this risk. Most cold viruses are not spread by saliva. Thus, kissing itself is not likely to transmit the common cold, but close direct contact can. Colds are not caused by cold climates or being exposed to cold air. However, some types of virus cause more colds during certain seasons (eg, fall and winter versus spring). COMMON COLD SIGNS AND SYMPTOMS The common cold usually causes nasal congestion, runny nose, and sneezing. A sore throat may be present on the first day but usually resolves quickly. If a cough occurs, it generally develops on about the fourth or fifth day of symptoms, typically when congestion and runny nose are usually resolving. COMMON COLD COMPLICATIONS In most cases, colds do not cause serious illness. Most colds last for three to seven days, although many people continue to have symptoms (coughing, sneezing, congestion) for up to two weeks. Some viruses that cause the common cold can also depress the immune system or cause swelling in the lining of the nose or airways; this can, in turn, lead to a new viral infection or bacterial infection. ? One of the more common complications is sinusitis, which is usually caused by viruses and rarely (about 2 percent of the time) by bacteria. However, it can be difficult to distinguish bacterial sinusitis from sinusitis caused by a cold because the signs and symptoms can be similar Having thick or yellow to green-colored nasal discharge does not mean that bacterial sinusitis has developed; discolored nasal discharge is a normal phase of the common cold. ? Lower respiratory infections, such as pneumonia or bronchitis, may develop following a cold. ? Infection of the middle ear, or otitis media, can accompany or follow a cold. ? The influenza virus, which causes the flu, can also cause features similar to those of a cold. However, the flu usually causes other signs and symptoms (fever, body aches) and is more serious than a cold. COMMON COLD TREATMENT There is no specific treatment for the viruses that cause the common cold. Most treatments are aimed at relieving some of the symptoms of the cold, but do not shorten or cure the cold. Antibiotics are not useful for treating the common cold; antibiotics are only used to treat illnesses caused by bacteria, not viruses. The symptoms of a cold will resolve over time, even without any treatment. The following are treatments that may reduce the symptoms caused by the common cold. People with underlying medical conditions and those who use other paje-dmi-ayfgafi or prescription medications should speak with their healthcare provider or pharmacist to ensure that it is safe to use these treatments. Runny nose and nasal congestion ? Runny nose and congestion may improve with the use of decongestants. Pseudoephedrine is a decongestant that can improve nasal congestion. Most drugstores in the [place] carry pseudoephedrine behind the counter, so it must be requested from the pharmacist (a prescription is not required). Antihistamines such as diphenhydramine (Benadryl?) may also help, but can cause side effects such as drowsiness and drying of the eyes, nose, and mouth. Nasal inhalers, including ipratropium bromide (Atrovent?, available by prescription) may relieve runny nose and sneezing while cromolyn sodium (NasalCrom?, a non-prescription medicine) may relieve runny nose, cough, and sneezing. Other nasal sprays such an oxymetazoline (Afrin? and others) can also give temporary relief of nasal congestion. However, these sprays should never be used for more than two to three days; use for more than three days use can worsen congestion. Nasal irrigation and saline sprays ? Rinsing the nose with a salt-water (saline) solution is called nasal irrigation or nasal lavage. Saline is also available in a standard nasal spray, although this is not as effective as using larger amounts of water in an irrigation. Nasal irrigation is particularly useful for treating drainage down the back of the throat, sneezing, nasal dryness, and congestion. The treatment helps by rinsing out allergens and irritants from the nose. Saline rinses also clean the nasal lining and can be used before applying sprays containing medications, to get a better effect from the medication. Nasal lavage with warmed saline can be performed as needed, once per day, or twice daily for increased symptoms. Nasal lavage carries few risks when performed correctly. Saline nasal sprays and irrigation kits can be purchased [id number]-[id number]. Saline mixes can also be purchased or patients can make their own solution. A variety of devices, including bulb syringes, Neti pots, and bottle sprayers, may be used to perform nasal lavage; instructions for nasal lavage are provided in the table. At least 200 mL (about 3/4 cup) of fluid is recommended for each nostril. Sore throat and headache ? Sore throat and headache are best treated with a mild pain reliever such as acetaminophen (Tylenol?) or a non-steroidal anti-inflammatory agent such as ibuprofen or naproxen (Motrin? or Aleve?). Cough ? Common cough medicine ingredients include guaifenesin and dextromethorphan; these are often combined with other medications in coaw-cdb-testmlf cold formulas. However, the benefit of cough medicines is likely to be small to non-existent. In clinical trials, cough suppressants were no more effective in reducing the duration or severity of coughing due to cold than a placebo (a non-drug substitute). Antibiotics ? Antibiotics should not be used to treat an uncomplicated common cold. As noted above, colds are caused by viruses. Antibiotics treat bacterial, not viral infections. Alternative treatments ? Heated, humidified air can improve symptoms of nasal congestion and runny nose, and causes few to no side effects. PREVENTION Hand washing is an essential and highly effective way to prevent the spread of infection. Hands should be wet with water and plain soap, and rubbed together for 15 to 30 seconds. Special attention should be paid to the fingernails, between the fingers, and the wrists. Hands should be rinsed thoroughly, and dried with a single use towel. Alcohol-based hand rubs are a good alternative for disinfecting hands if a sink is not available. Hand rubs should be spread over the entire surface of hands, fingers, and wrists until dry, and may be used several times. These rubs can be used repeatedly without skin irritation or loss of effectiveness. Hand rubs are available as a liquid or wipe in small, portable sizes that are easy to carry in a pocket or handbag. When a sink is available, visibly soiled hands should be washed with soap and water. Hands should be washed before preparing food and eating, and after coughing, blowing the nose, or sneezing. While it is not always possible to limit contact with people who may be infected with a cold, touching the eyes, nose, or mouth after direct contact should be avoided when possible. In addition, tissues should be used to cover the mouth when sneezing or coughing. These used tissues should be disposed of promptly. Sneezing/coughing into the sleeve of one's clothing (at the inner elbow) is another means of containing sprays of saliva and secretions and does not contaminate the hands. SUMMARY ? The average adult experiences two to three colds per year, while children average 8 to 12 colds per year. ? Symptoms of the common cold usually include nasal congestion, runny nose, and sneezing. They typically last for three to seven days, although many people have symptoms (coughing, sneezing, congestion) for up to two weeks. ? People with colds typically carry the cold virus on their hands, where it can infect another person for at least two hours. Some cold viruses can live on surfaces (such as a counter top, door handle, or phone) for several hours. Droplets containing viral particles can be breathed, coughed, or sneezed into the air. ? There is no specific treatment for colds. Treatment may reduce some of the symptoms of the cold, but do not shorten or cure the cold. Antibiotics are not useful for treating the common cold. Hand washing can prevent the spread of infection. Hands should be wet with water and plain soap, and rubbed together for 15 to 30 seconds. Alcohol-based hand rubs are a good alternative for disinfecting hands if a sink is not available Prescriptions ordered this encounter Disp Refills Start End GUAIFENESIN ER 600 MG TABLET, EXTEND* 30 t* 0 09/20/2018 Route: ORAL Sig: Take 2 tablets by mouth twice daily. BENZONATATE 100 MG CAPSULE 40 c* 0 09/20/2018 Route: ORAL Sig: Take 1 capsule by mouth three times daily as needed. Encounter Status:Closed by KESHIA CARRANZA CNP on 09/20/18 Observed: 09/15/2018 Status: F Source: [facility] PREP 11:11 [facility] REPOSITORY Sp. Request/Comment: - Swab Smear Result - Negative for Trichomonas vaginalis antigen This test was developed and its performance characteristics determined by [facility] [place] ([facility] It has not been cleared or approved by the FDA. [facility] is regulated under CLIA as qualified to perform high-complexity testing. This test is used for clinical purposes. It should not be regarded as investigational or for research. Performed By: #### TRICHO #### [place] [address] [place] [id number] GC/CHLAMYDIA AMPLIF Collected: 09/15/2018 Status: F Source: [place] 11:11 [facility] REPOSITORY TYPE CODE TESTS RESULT OUT OF REFERENCE UNITS RANGE LAB GCCTSR GC/Chlam Amp [facility] Source LAB GCAMPL GC Negative Amplification for Neisseria gonorrhoeae by amplification. LAB CLAMPL Chlamydia Negative Amplif for Chlamydia trachomatis by amplification. Performed By: #### GCCT #### [facility] [employer] [address] [place] [address] Observed: 09/15/2018 Status: F Source: [place] BACT/CAND VAG [facility] 11:11 [facility] REPOSITORY Sp. Request/Comment: - Swab Smear Result - BACTERIAL VAGINOSIS RESULT: Stain results consistent with normal vaginal keisha. No Yeast observed Few Polymorphonuclear leukocytes Moderate Epithelial cells Performed By: #### BVCNSM #### [place] [address] CNOV Observed: 09/15/2018 Status: COMPLETED Source: [place] 11:10 [facility] REPOSITORY Office Visit (WOOB) ANGELICA ANDUJAR ([id number]) 1980 F Date Time Provider Department 09/15/18 11:10 AM REDD HAMEED During your visit today, we recorded the following information about you: Blood pressure Weight 106/60 85.7 kg Redd Hameed MD 09/15/2018 11:24 AM Signed Angelica Andujar is a 37 year old female who presents for concerns. HPI: Patient presents with vulvovaginal concerns. She has some irritation. Also she would like checked for vaginal infections. PAST MEDICAL HISTORY Diagnosis Date - 11/2009 [...] with: Male control/protection: None Current Outpatient Prescriptions: naproxen (NAPROSYN) 500 mg tablet Take 500 mg by mouth twice daily with meals. risperiDONE (RISPERDAL) 2 mg tablet Take 2 mg by mouth twice daily. nicotine polacrilex (NICORELIEF) 2 mg gum Take 1 Each by mouth every 2 hours as needed. propranolol (INDERAL) 10 mg tablet Take 1 tablet by mouth three times daily. lidocaine (XYLOCAINE) 2 % jelly Apply 1 application to affected area as needed. 2 times per day. Vaginal Lubricant (REPLENS) gel Use 1 application vaginally once daily as needed. vitamin A and D ointment Apply 1 application to affected area as needed. benztropine (COGENTIN) 0.5 mg tablet Take 0.5 mg by mouth twice daily. sodium chloride 0.9 % IRRIGATION Combine 5 mL of the irrigation with 5 mL of hydrogen peroxide. Gray over vulvar area as needed after using restroom. beclomethasone (QVAR) 80 mcg/actuation inhaler Inhale 2 Puffs as instructed twice daily. OXcarbazepine (TRILEPTAL) 600 mg tablet Take 600 mg by mouth twice daily. Taking 900mg MELATONIN ORAL Take by mouth. 6mg paliperidone ER (INVEGA) 9 mg 24 hr tablet Take 9 mg by mouth once daily. sodium chloride (AYR, OCEAN) 0.65 % nasal spray Use 1 Gray in the nose as needed for Cold/Allergy Symptoms. Pseudoephedrine HCl (SUDAFED 12 HOUR) 120 mg [...] (Patient not taking: Reported on 07/19/2018 ) loratadine (CLARITIN) 10 mg tablet Take 1 tablet by mouth once daily. Multivitamin capsule Take 1 capsule by mouth once daily. No current facility-administered medications for this visit. Allergies As of Date: 09/15/2018 Allergen Noted Reaction ANTI-BACTERIAL CLEANSING [BENZETH*10/26/2012 Rash BEES 07/16/2010 Unknown BENZALKONIUM CHLORIDE 09/08/2012 Other: See Comments CLINDAMYCIN 03/27/2018 GI Upset DOXYCYCLINE 12/13/2012 GI Upset DUST MITES 04/26/2012 Unknown FLAGYL [METRONIDAZOLE HCL] 06/20/2012 Hives 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 [ETHYL ALCOHOL (SK*11/04/2009 Rash IODINE 02/18/2011 Rash LACTOSE INTOLERANCE [LACTASE] 11/04/2009 LATEX, NATURAL RUBBER 03/17/2018 Rash [place] 12/07/2017 Anaphylaxis MELOXICAM 06/12/2018 Unknown METRONIDAZOLE 04/11/2018 Hives MOLD 04/26/2012 Unknown MORPHINE 03/02/2011 Itching PENICILLIN 06/18/2016 Unknown PET DANDER [OTHER] 10/20/2011 Unknown PREDNISONE 08/26/2012 Other: See Comments SEASONAL ALLERGIES 11/04/2009 Unknown SINGULAIR [MONTELUKAST] 12/07/2017 Unknown SODIUM LAURYL SULFATE 09/30/2010 Rash TREES 05/11/2012 Other: See Comments ZOFRAN [ONDANSETRON HCL (PF)] 03/02/2011 Other: See Comments Fully Assessed 09/15/2018 REVIEW OF SYSTEMS Bladder: No dysuria, gross hematuria, urinary frequency, urinary urgency, or incontinence. Allergies and current medication updated:Yes EXAM: BP 106/60 Wt 189 lb (85.7kg) GENERAL: pleasant, female in no apparent distress PELVIC: external genitalia normal, normal Bartholin's glands, urethra, Furley's glands, no vulvar lesions, no cervical lesions, good vaginal support, physiologic discharge present, normal appearing perineal body and perianal region; NEURO: alert and oriented x3,exam grossly non-focal EXTREMITIES: normal ASSESSMENT AND PLAN: Encounter Diagnosis ICD-10-CM 1. Vulvovaginitis N76.0 BACTERIAL VAGINOSIS SCORED GRAM STAIN VAGINAL SMEAR FOR MISTY TRICHOMONAS PREP GC/CHLAMYDIA DNA DET Rx replens given for vaginal use while tests are pending. Lidocaine jelly given for use for discomfort - use AND risks reviewed. Vitamin AANDD ointment given for vulvar barrier cream as needed. All questions answered AND patient agrees with plan. MD Lesly Zamudio Ma 09/15/2018 11:09 AM Signed I was present during the patient's physical exam by Dr. Hameed. Lesly Miller Ma Referring Provider: SELF [[id number]] Allergies As of Date: 09/15/2018 Noted Allergy Reaction ANTI-BACTERIAL CLEANSING (BENZETH*10/26/2012 2 [...] (METRONIDAZOLE HCL) 06/20/2012 4 - Hives 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 (ETHYL ALCOHOL (SK*11/04/2009 2 - Rash Comments: PT HAS SENSITIVE SKIN. O.K. FOR MEDICAL PROFESSIONAL TO USE 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 AND THEN TOUCH HER, BUT SHE HERSELF DOES NOT USE IT. IODINE 02/18/2011 2 - Rash LACTOSE INTOLERANCE (LACTASE) 11/04/2009 LATEX, NATURAL RUBBER 03/17/2018 2 - Rash [place] 12/07/2017 10 - Anaphylaxis MELOXICAM 06/12/2018 16 [...] Zofran causes cramping and constipation Date Reviewed: 09/15/2018 Reviewed by: Redd Hameed - Fully Assessed Primary Visit Diagnosis:Vulvovaginitis [N76.0] Order(s):BACTERIAL VAGINOSIS SCORED GRAM STAIN [SQBVSTN] Order #: [id number] VAGINAL SMEAR FOR MISTY [SQCANSTN] Order #: [id number] TRICHOMONAS PREP [SQTRICHO] Order #: [id number] GC/CHLAMYDIA DNA DET [SQGCCAMP] Order #: [id number] lidocaine (XYLOCAINE) 2 % jellyApply 1 application to affected area as needed. 2 times per day.Disp: 1 TubeRfl: 1 Vaginal Lubricant (REPLENS) gelUse 1 application vaginally once daily as needed.Disp: 1 TubeRfl: 1 vitamin A and D ointmentApply 1 application to affected area as needed.Disp: 60 gRfl: 5 Prescriptions as of 09/15/2018 Sig: NAPROXEN 500 MG TABLET Take 500 mg by mouth twice da* RISPERIDONE 2 MG TABLET Take 2 mg by mouth twice miguelina* NICOTINE (POLACRILEX) 2 MG GUM Take 1 Each by mouth every 2 * PROPRANOLOL 10 MG TABLET Take 1 tablet by mouth three * LIDOCAINE 2 % MUCOSAL JELLY Apply 1 application to affect* POLYCARBOPHIL VAGINAL GEL Use 1 application vaginally o* VITAMIN A AND D TOPICAL OINTM* Apply 1 application to affect* BENZTROPINE 0.5 MG TABLET Take 0.5 mg by mouth twice da* SODIUM CHLORIDE 0.9 % IRRIGAT* Combine 5 mL of the irrigatio* BECLOMETHASONE DIPROPIONATE 8* Inhale 2 Puffs as instructed * OXCARBAZEPINE 600 MG TABLET Take 600 mg by mouth twice da* MELATONIN ORAL Take by mouth. 6mg PALIPERIDONE ER 9 MG TABLET,E* Take 9 mg by mouth once daily. SODIUM CHLORIDE 0.65 % NASAL * Use 1 Gray in the nose as ne* PSEUDOEPHEDRINE ER [...] * Patient not taking: Reported on 07/19/2018 LORATADINE 10 MG TABLET Take 1 tablet by mouth once d* MULTIVITAMIN CAPSULE Take 1 capsule by mouth once * Problem List As Of Date 09/15/2018 Noted Resolved Frequency of urination [R35.0] INVALID [...] rhinitis [J30.9] INVALID FOR* Visit Notes: >> Lesly Miller Ma TueSep 15, 2018 11:09 AM Status: Signed I was present during the patient's physical exam by Dr. Hameed. Lesly Miller Ma Prescriptions ordered this encounter Disp Refills Start End LIDOCAINE 2 % MUCOSAL JELLY 1 * 09/15/2018 Route: TOPICAL Sig: Apply 1 application to affected area as needed. 2 times per day. POLYCARBOPHIL VAGINAL GEL 1 * 09/15/2018 Route: VAGINAL Sig: Use 1 application vaginally once daily as needed. VITAMIN A AND D TOPICAL OINTMENT 60 g 5 09/15/2018 Route: TOPICAL Sig: Apply 1 application to affected area as needed. Encounter Status:Closed by REDD HAMEED MD on 09/15/18 PROGRESS Observed: 09/15/2018 Status: COMPLETED Source: [place] 11:01 AM [facility] [place] REPOSITORY HNO ID: [id number] Author: Redd Hameed Service: (none) Author Type: Physician Type: Progress Notes Filed: 09/15/2018 11:24 AM Note Text: Angelica Andujar is a 37 year old female who presents for concerns. HPI: Patient presents with vulvovaginal concerns. She has some irritation. Also she would like checked for vaginal infections. PAST MEDICAL HISTORY Diagnosis Date - 11/2009 [...] with: Male control/protection: None Current Outpatient Prescriptions: naproxen (NAPROSYN) 500 mg tablet Take 500 mg by mouth twice daily with meals. risperiDONE (RISPERDAL) 2 mg tablet Take 2 mg by mouth twice daily. nicotine polacrilex (NICORELIEF) 2 mg gum Take 1 Each by mouth every 2 hours as needed. propranolol (INDERAL) 10 mg tablet Take 1 tablet by mouth three times daily. lidocaine (XYLOCAINE) 2 % jelly Apply 1 application to affected area as needed. 2 times per day. Vaginal Lubricant (REPLENS) gel Use 1 application vaginally once daily as needed. vitamin A and D ointment Apply 1 application to affected area as needed. benztropine (COGENTIN) 0.5 mg tablet Take 0.5 mg by mouth twice daily. sodium chloride 0.9 % IRRIGATION Combine 5 mL of the irrigation with 5 mL of hydrogen peroxide. Gray over vulvar area as needed after using restroom. beclomethasone (QVAR) 80 mcg/actuation inhaler Inhale 2 Puffs as instructed twice daily. OXcarbazepine (TRILEPTAL) 600 mg tablet Take 600 mg by mouth twice daily. Taking 900mg MELATONIN ORAL Take by mouth. 6mg paliperidone ER (INVEGA) 9 mg 24 hr tablet Take 9 mg by mouth once daily. sodium chloride (AYR, OCEAN) 0.65 % nasal spray Use 1 Gray in the nose as needed for Cold/Allergy Symptoms. Pseudoephedrine HCl (SUDAFED 12 HOUR) 120 mg [...] (Patient not taking: Reported on 07/19/2018 ) loratadine (CLARITIN) 10 mg tablet Take 1 tablet by mouth once daily. Multivitamin capsule Take 1 capsule by mouth once daily. No current facility-administered medications for this visit. Allergies As of Date: 09/15/2018 Allergen Noted Reaction ANTI-BACTERIAL CLEANSING [BENZETH*10/26/2012 Rash BEES 07/16/2010 Unknown BENZALKONIUM CHLORIDE 09/08/2012 Other: See Comments CLINDAMYCIN 03/27/2018 GI Upset DOXYCYCLINE 12/13/2012 GI Upset DUST MITES 04/26/2012 Unknown FLAGYL [METRONIDAZOLE HCL] 06/20/2012 Hives 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 [ETHYL ALCOHOL (SK*11/04/2009 Rash IODINE 02/18/2011 Rash LACTOSE INTOLERANCE [LACTASE] 11/04/2009 LATEX, NATURAL RUBBER 03/17/2018 Rash [place] 12/07/2017 Anaphylaxis MELOXICAM 06/12/2018 Unknown METRONIDAZOLE 04/11/2018 Hives MOLD 04/26/2012 Unknown MORPHINE 03/02/2011 Itching PENICILLIN 06/18/2016 Unknown PET DANDER [OTHER] 10/20/2011 Unknown PREDNISONE 08/26/2012 Other: See Comments SEASONAL ALLERGIES 11/04/2009 Unknown SINGULAIR [MONTELUKAST] 12/07/2017 Unknown SODIUM LAURYL SULFATE 09/30/2010 Rash TREES 05/11/2012 Other: See Comments ZOFRAN [ONDANSETRON HCL (PF)] 03/02/2011 Other: See Comments Fully Assessed 09/15/2018 REVIEW OF SYSTEMS Bladder: No dysuria, gross hematuria, urinary frequency, urinary urgency, or incontinence. Allergies and current medication updated:Yes EXAM: BP 106/60 Wt 189 lb (85.7kg) GENERAL: pleasant, female in no apparent distress PELVIC: external genitalia normal, normal Bartholin's glands, urethra, Furley's glands, no vulvar lesions, no cervical lesions, good vaginal support, physiologic discharge present, normal appearing perineal body and perianal region; NEURO: alert and oriented x3,exam grossly non-focal EXTREMITIES: normal ASSESSMENT AND PLAN: Encounter Diagnosis ICD-10-CM 1. Vulvovaginitis N76.0 BACTERIAL VAGINOSIS SCORED GRAM STAIN VAGINAL SMEAR FOR MISTY TRICHOMONAS PREP GC/CHLAMYDIA DNA DET Rx replens given for vaginal use while tests are pending. Lidocaine jelly given for use for discomfort - use AND risks reviewed. Vitamin AANDD ointment given for vulvar barrier cream as needed. All questions answered AND patient agrees with plan. Redd Hameed MD CBC AND DIFFERENTIAL Collected: 09/15/2018 Status: F Source: [place] 10:15 AM [facility] REPOSITORY TYPE CODE TESTS RESULT OUT OF REFERENCE UNITS RANGE LAB WBC 3.70-11.00 k/uL WBC 7.60 LAB RBC 3.90-5.20 m/uL RBC 4.93 LAB HGB 11.5-15.5 g/dL Hemoglobin 13.6 LAB HCT 36.0-46.0 % Hematocrit 40.9 LAB MCV 80.0-100.0 fL MCV 83.0 LAB MCH 26.0-34.0 pG MCH 27.6 LAB MCHC 30.5-36.0 g/dL MCHC 33.3 LAB RDWCV 11.5-15.0 % RDW-CV 13.2 LAB PLTCT 150-400 k/uL Platelet Count 220 LAB MPV 9.0-12.7 fL MPV 10.8 LAB ANEUT % Neut% 70.2 LAB AANEUT 1.45-7.50 k/uL Abs Neut 5.33 LAB ALYMP % Lymph% 19.2 LAB AALYMP 1.00-4.00 k/uL Abs Lymph 1.46 LAB AMONO % [place]% 8.7 LAB AAMONO <0.87 k/uL Abs [place] 0.66 LAB AEOS % Eosin% 1.4 LAB AAEOS <0.46 k/uL Abs Eosin 0.11 LAB ABASO % Baso% 0.5 LAB AABASO <0.11 k/uL Abs Baso 0.04 LAB AUNRBC 0 /100 WBC NRBCs 0.0 LAB ABNRBC <0.01 k/uL Absolute nRBC <0.01 LAB DTYP DTYPE Auto Diff Performed By: #### CBCDIF, CMP, TSH, HBSAG, AHCV1B, HIV12C, SYPHGX, MONOLX #### [facility] [address] [place], [place] [address] COMP METABOLIC PANEL Collected: 09/15/2018 Status: F Source: [place] 10:15 AM [facility] REPOSITORY TYPE CODE TESTS RESULT OUT OF REFERENCE UNITS RANGE LAB TP 6.3-8.0 g/dL Protein, Total 6.9 LAB ALB 3.9-4.9 g/dL Albumin 4.3 LAB CA 8.5-10.2 mg/dL Calcium, Total 9.5 LAB TBIL 0.2-1.3 mg/dL Bilirubin, Total 0.3 LAB ALKP 34-123 U/L Alkaline Phosphatase 64 LAB AST 13-35 U/L AST 17 LAB GLU 74-99 mg/dL Glucose 90 Result Comment: The [place] Diabetes Association (ADA) provides guidance for cutoff values for fasting glucose and random glucose. The ADA defines fasting as no caloric intake for at least 8 hours. Fas ting plasma glucose results between 100 to 125 mg/dL indicate increased risk for diabetes (prediabetes). Fasting plasma glucose results greater than or equal to 126 mg/dL meet the criteria for diagnosis of diabetes. In the absence of unequivocal hyperglycemia, results should be confirmed by repeat testing. In a patient with classic symptoms of hyperglycemia or hyperglycemic crisis, random plasma glucose results greater than or equal to 200 mg/dL meet the criteria for diagnosis of diabetes. Reference: Standards of Medical Care in Diabetes 2016, [place] Diabetes Association. Diabetes Care. 2016.39(Suppl 1). LAB BUN 7-21 mg/dL BUN 12 LAB CRET 0.58-0.96 mg/dL Creatinine 0.73 LAB NA 136-144 mmol/L Sodium Low 128 LAB K 3.7-5.1 mmol/L Potassium 4.5 LAB CL 97-105 mmol/L Chloride Low 95 LAB CO2 22-30 mmol/L CO2 Low 21 LAB AGAP 9-18 mmol/L Anion Gap 12 LAB ALT 7-38 U/L ALT 17 LAB GFRAA eGFR- Amer. >60 LAB GFRNAA . eGFR-All Other Races >60 Result Comment: eGFR (Estimated GFR) Units of measure: mL/min/1.73 meters squared eGFR is derived from the reexpressed MDRD Study equation using the following parameters: serum creatinine, age, gender and race. The creatinine assay has been calibrated to be traceable to IDMS. An eGFR <60 mL/min/1.73m2 for >3 months is consistent with chronic kidney disease. Refer to KDOQI guidelines for clinical interpretation. In patients with unstable renal function, e.g. those with acute kidney injury, the eGFR may not accurately reflect actual GFR. Performed By: #### CBCDIF, CMP, TSH, HBSAG, AHCV1B, HIV12C, SYPHGX, MONOLX #### [facility] [address] [place] [id number] TSH Collected: 09/15/2018 Status: F Source: [place] 10:15 AM [facility] [place] REPOSITORY TYPE CODE TESTS RESULT OUT OF RANGE REFERENCE UNITS LAB TSH 0.400-5.500 uU/mL TSH 3.250 Result Comment: If the patient is , TSH reference range varies by gestational period: First Trimester 0.100-2.500 uU/mL Second Trimester 0.200-3.000 uU/mL Third Trimester 0.300-3.000 uU/mL References: 1. De Corinna L, Lilo M, Kwesi EK, et al. Management of Thyroid Dysfunction during and : An Endocrine Society Clinical Practice Guideline. J Clin Endocrinol Metab, 2012:97:3942-5813. 2. Maikel REIS. Overview of thyroid disease in . UpToDate. 2016. Accessed on February 20, 2016. Performed By: #### CBCDIF, CMP, TSH, HBSAG, AHCV1B, HIV12C, SYPHGX, MONOLX #### [place] [id number] [place] [address] HEPATITIS B SURF. AG Collected: 09/15/2018 Status: F Source: [place] 10:15 AM [facility] REPOSITORY TYPE CODE TESTS RESULT OUT OF REFERENCE UNITS RANGE LAB HBSAG Negative Hepatitis B Negative Surf. Ag Performed By: #### CBCDIF, CMP, TSH, HBSAG, AHCV1B, HIV12C, SYPHGX, MONOLX #### [place] [phone] HEP C AB IA W/CONF Collected: 09/15/2018 Status: F Source: [place] 10:15 AM [facility] REPOSITORY TYPE CODE TESTS RESULT OUT OF REFERENCE UNITS RANGE LAB AHCV Negative Hepatitis C Ab Negative IA Performed By: #### CBCDIF, CMP, TSH, HBSAG, AHCV1B, HIV12C, SYPHGX, MONOLX #### [place] [phone] HIV 12 COMBO (AG/AB) Collected: 09/15/2018 Status: F Source: [place] 10:15 AM [facility] REPOSITORY TYPE CODE TESTS RESULT OUT OF REFERENCE UNITS RANGE LAB HVAGAB Non Reactive HIV Non Reactive 12 Ag/Ab Result Comment: (NOTE) HIV Information: [place] Rev. Code 3701.243(E): This information has been [...] test results or diagnoses. Performed By: #### CBCDIF, CMP, TSH, HBSAG, AHCV1B, HIV12C, SYPHGX, MONOLX #### [place] [address] SYPHILIS IGG WITH Collected: 09/15/2018 Status: F Source: [facility] 10:15 AM [facility] REPOSITORY TYPE CODE TESTS RESULT OUT OF REFERENCE UNITS RANGE LAB SYPHQL Nonreactive Syphilis IgG, Nonreactive Qual Result Comment: No serological evidence of infection with T. pallidum. LAB SYPHLG AI Syphilis IgG <0.2 Result Comment: Antibody index is interpreted as follows: Non reactive SPECIMENS <=0.8 Weak reactive SPECIMENS 0.9 to 5.9 Reactive SPECIMENS >=6.0 Performed By: #### CBCDIF, CMP, TSH, HBSAG, AHCV1B, HIV12C, SYPHGX, MONOLX #### [facility] [address] [place], [place] [address] MONO SLIDE TEST Collected: 09/15/2018 Status: F Source: [place] 10:15 AM [facility] [place] REPOSITORY TYPE CODE TESTS RESULT OUT OF REFERENCE UNITS RANGE LAB MONOLX Negative [place] Negative Slide Test Performed By: #### CBCDIF, CMP, TSH, HBSAG, AHCV1B, HIV12C, SYPHGX, MONOLX #### [facility] [employer] [address] [place], [place] [address] PROGRESS Observed: 09/15/2018 Status: COMPLETED Source: [place] 9:34 AM [facility] [place] REPOSITORY HNO ID: [id number] Author: Quin (Interventional Radiology Technologist) Juan Service: (none) Author Type: Nurse Specialist Type: Progress Notes Filed: 09/15/2018 9:42 AM Note Text: This note was created using Zhou Heiyariter. Subjective Angelica Andujar is a 37 year old female presents for a routine visit.. HPI Mallorie Alexis CNP at [facility]. she intends to continue to follow there. Would like to see Dr. Mejia in follow up as well. Since last here she reports an ER visit to [facility]. Noted to have essential tremor. Was started on propranolol for this. She would like to see a neurologist for follow-up of this. Recent admission to psychiatric hospital, [facility] for psychiatry, for depressive disorder. Started on medications for depressive disorder during this admission. She has a follow-up with psychiatry later today. She notes feeling tired for the last 2 days. She is not sure if fatigue is related to illness or medications. Separately reports a desire to stop smoking. States was smoking 1 pack a day. Currently not smoking. Would like NicoDerm gum to help with this and referral to smoking cessation program. Review of Systems Constitutional: Negative for activity change, appetite change, chills, fever and unexpected weight change. Respiratory: Negative. Cardiovascular: Negative. Gastrointestinal: Negative. Neurological: Positive for tremors. Negative for dizziness, seizures and numbness. Psychiatric/Behavioral: Positive for dysphoric mood and sleep disturbance. Objective BP 104/62 (BP Site: Right Arm, BP Position: Sitting, BP Cuff Size: Regular Adult) Pulse 96 Resp 16 Ht 170.2 cm (5' 7) Wt 85.7 kg (189 lb) BMI 29.60 kg/m? Physical Exam Constitutional: She appears well-developed and well-nourished. HENT: Head: Normocephalic and atraumatic. Eyes: Conjunctivae are normal. Neck: No JVD present. No tracheal deviation present. No thyromegaly present. Cardiovascular: Normal rate, regular rhythm, normal heart sounds and intact distal pulses. Exam reveals no gallop and no friction rub. No murmur heard. Pulmonary/Chest: Effort normal and breath sounds normal. No respiratory distress. She has no wheezes. She has no rales. She exhibits no tenderness. Abdominal: Soft. Bowel sounds are normal. Lymphadenopathy: She has no cervical adenopathy. Neurological: She is alert. Skin: Skin is warm and dry. Nursing note and vitals reviewed. Flat affect, slow spech ALLERGIES Allergen Reactions - Anti-Bacterial Jennifer* Rash - Bees Unknown Listed on records from [facility] - Benzalkonium Chlori* Other: See Comments Skin irritations - Clindamycin GI Upset - Doxycycline GI Upset stomach cramps - Dust Mites Unknown Dust mites and cockroaches - Flagyl [Metronidazo* Hives - Hand Ends Down Checker [Eth* Rash PT HAS SENSITIVE SKIN. O.K. FOR MEDICAL PROFESSIONAL TO USE 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 AND THEN TOUCH HER, BUT SHE HERSELF DOES NOT USE IT. - Iodine Rash - Lactose Intolerance* - Latex, Natural Rubb* Rash - [place] Anaphylaxis - Meloxicam Unknown - Metronidazole Hives [...] Comments Zofran causes cramping and constipation Current Outpatient Prescriptions: naproxen (NAPROSYN) 500 mg tablet Take 500 mg by mouth twice daily with meals. risperiDONE (RISPERDAL) 2 mg tablet Take 2 mg by mouth twice daily. benztropine (COGENTIN) 0.5 mg tablet Take 0.5 mg by mouth twice daily. sodium chloride 0.9 % IRRIGATION Combine 5 mL of the irrigation with 5 mL of hydrogen peroxide. Gray over vulvar area as needed after using restroom. beclomethasone (QVAR) 80 mcg/actuation inhaler Inhale 2 Puffs as instructed twice daily. OXcarbazepine (TRILEPTAL) 600 mg tablet Take 600 mg by mouth twice daily. Taking 900mg MELATONIN ORAL Take by mouth. 6mg sodium chloride (AYR, OCEAN) 0.65 % nasal spray Use 1 Gray in the nose as needed for Cold/Allergy Symptoms. albuterol HFA (PROAIR HFA) 90 mcg/actuation inhaler Inhale 2 Puffs as instructed every 4 hours as needed for Wheezing/Shortness of Breath. loratadine (CLARITIN) 10 mg tablet Take 1 tablet by mouth once daily. Multivitamin capsule Take 1 capsule by mouth once daily. nicotine polacrilex (NICORELIEF) 2 mg gum Take 1 Each by mouth every 2 hours as needed. propranolol (INDERAL) 10 mg tablet Take 1 tablet by mouth three times daily. paliperidone ER (INVEGA) 9 mg 24 hr tablet Take 9 mg by mouth once daily. Pseudoephedrine HCl (SUDAFED 12 HOUR) 120 mg TbER Take 1 tablet by mouth every 12 hours as needed. (Patient not taking: Reported on 07/19/2018 ) acetaminophen (TYLENOL ORAL) Take 325 mg by mouth. famotidine (PEPCID) 20 mg tablet Take 1 tablet by mouth at bedtime as needed. fluticasone (FLONASE) 50 mcg/actuation nasal spray Use 2 Sprays in each nostril once daily. (Patient not taking: Reported on 07/19/2018 ) No current facility-administered medications for this visit. Social History Marital status: Single Spouse name: Years of education: GED Number of children: 0 Occupational History Occupation Employer Comment Unemployed Social History Main Topics Smoking status: Former Smoker Packs/day: 0.00 Years: 3.00 Types: Cigarettes Quit date: 03/03/2018 Smokeless tobacco: Never Used Comment: 2 weeks no cigarettes Alcohol use: Yes Comment: Seldom Drug use: No Sexual activity: Yes Partners with: Male control/protection: None PAST MEDICAL HISTORY Diagnosis Date - 11/2009 - Anxiety - Asthma - Depression - Recurrent UTI - Seasonal allergies - STD (sexually transmitted disease) PAST SURGICAL HISTORY Procedure Laterality Date - COLONOSCOPY W/BX 03/02/11 - EGD W/O OR W/BRUSH/WASH 11/14/2012 EGD - MED INC ALL EX DRUG 11/2009 - PAST SURGICAL HISTORY OF WISDOM TEETH ANNUAL PCP TEAM CHRONIC DISEASE VISIT due on 1996 ONE PNEUMOVAX PRIOR TO AGE 63 due on 1997 Assessment and Plan 1. Fatigue, unspecified type - ICD9: 780.79, ICD10: R53.83 (primary diagnosis) - TSH BLD - CBC + DIFF - COMP METABOLIC PANEL - MONOTEST, INFECTIOUS MONO 2. Essential tremor - ICD9: 333.1, ICD10: G25.0 She feels propranolol may be making her tired, reduced dose from 40 mg twice a day to 10 mg 3 times a day. - CONSULT TO NEUROLOGY - PROPRANOLOL 10 MG TABLET 3. Smoking - ICD9: 305.1, ICD10: F17.200 - CONSULT TO SMOKING CESSATION - NICOTINE (POLACRILEX) 2 MG GUM Quni Martinez APRN.CNS September 15, 2018 CNOV Observed: 09/15/2018 Status: COMPLETED Source: [place] 8:40 AM [facility] REPOSITORY Office Visit (INTMWS) ANGELICA ANDUJAR ([id number]) 1980 F Date Time Provider Department 09/15/18 8:40 AM QUIN MARTINEZ ([facility]) INTMWS During your visit today, we recorded the following information about you: Pulse Respiration Blood pressure Weight 96/minute 16/minute 104/62 85.7 kg Height 1.702 m Quin Martinez, MD ALLERGY IMMUNOLOGY.AGRICULTURAL ENGINEER 09/15/2018 9:42 AM Signed This note was created using Zhou Heiyariter. Subjective Angelica Andujar is a 37 year old female presents for a routine visit.. HPI Mallorie Aleixs CNP at [facility]. she intends to continue to follow there. Would like to see Dr. Mejia in follow up as well. Since last here she reports an ER visit to [facility]. Noted to have essential tremor. Was started on propranolol for this. She would like to see a neurologist for follow-up of this. Recent admission to psychiatric hospital, [facility] for psychiatry, for depressive disorder. Started on medications for depressive disorder during this admission. She has a follow-up with psychiatry later today. She notes feeling tired for the last 2 days. She is not sure if fatigue is related to illness or medications. Separately reports a desire to stop smoking. States was smoking 1 pack a day. Currently not smoking. Would like NicoDerm gum to help with this and referral to smoking cessation program. Review of Systems Constitutional: Negative for activity change, appetite change, chills, fever and unexpected weight change. Respiratory: Negative. Cardiovascular: Negative. Gastrointestinal: Negative. Neurological: Positive for tremors. Negative for dizziness, seizures and numbness. Psychiatric/Behavioral: Positive for dysphoric mood and sleep disturbance. Objective BP 104/62 (BP Site: Right Arm, BP Position: Sitting, BP Cuff Size: Regular Adult) Pulse 96 Resp 16 Ht 170.2 cm (5' 7) Wt 85.7 kg (189 lb) BMI 29.60 kg/m? Physical Exam Constitutional: She appears well-developed and well-nourished. HENT: Head: Normocephalic and atraumatic. Eyes: Conjunctivae are normal. Neck: No JVD present. No tracheal deviation present. No thyromegaly present. Cardiovascular: Normal rate, regular rhythm, normal heart sounds and intact distal pulses. Exam reveals no gallop and no friction rub. No murmur heard. Pulmonary/Chest: Effort normal and breath sounds normal. No respiratory distress. She has no wheezes. She has no rales. She exhibits no tenderness. Abdominal: Soft. Bowel sounds are normal. Lymphadenopathy: She has no cervical adenopathy. Neurological: She is alert. Skin: Skin is warm and dry. Nursing note and vitals reviewed. Flat affect, slow spech ALLERGIES Allergen Reactions - Anti-Bacterial Jennifer* Rash - Bees Unknown Listed on records from [facility] - Benzalkonium Chlori* Other: See Comments Skin irritations - Clindamycin GI Upset - Doxycycline GI Upset stomach cramps - Dust Mites Unknown Dust mites and cockroaches - Flagyl [Metronidazo* Hives - Hand Ends Down Checker [Eth* Rash PT HAS SENSITIVE SKIN. O.K. FOR MEDICAL PROFESSIONAL TO USE 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 AND THEN TOUCH HER, BUT SHE HERSELF DOES NOT USE IT. - Iodine Rash - Lactose Intolerance* - Latex, Natural Rubb* Rash - [place] Anaphylaxis - Meloxicam Unknown - Metronidazole Hives [...] Comments Zofran causes cramping and constipation Current Outpatient Prescriptions: naproxen (NAPROSYN) 500 mg tablet Take 500 mg by mouth twice daily with meals. risperiDONE (RISPERDAL) 2 mg tablet Take 2 mg by mouth twice daily. benztropine (COGENTIN) 0.5 mg tablet Take 0.5 mg by mouth twice daily. sodium chloride 0.9 % IRRIGATION Combine 5 mL of the irrigation with 5 mL of hydrogen peroxide. Gray over vulvar area as needed after using restroom. beclomethasone (QVAR) 80 mcg/actuation inhaler Inhale 2 Puffs as instructed twice daily. OXcarbazepine (TRILEPTAL) 600 mg tablet Take 600 mg by mouth twice daily. Taking 900mg MELATONIN ORAL Take by mouth. 6mg sodium chloride (AYR, OCEAN) 0.65 % nasal spray Use 1 Gray in the nose as needed for Cold/Allergy Symptoms. albuterol HFA (PROAIR HFA) 90 mcg/actuation inhaler Inhale 2 Puffs as instructed every 4 hours as needed for Wheezing/Shortness of Breath. loratadine (CLARITIN) 10 mg tablet Take 1 tablet by mouth once daily. Multivitamin capsule Take 1 capsule by mouth once daily. nicotine polacrilex (NICORELIEF) 2 mg gum Take 1 Each by mouth every 2 hours as needed. propranolol (INDERAL) 10 mg tablet Take 1 tablet by mouth three times daily. paliperidone ER (INVEGA) 9 mg 24 hr tablet Take 9 mg by mouth once daily. Pseudoephedrine HCl (SUDAFED 12 HOUR) 120 mg TbER Take 1 tablet by mouth every 12 hours as needed. (Patient not taking: Reported on 07/19/2018 ) acetaminophen (TYLENOL ORAL) Take 325 mg by mouth. famotidine (PEPCID) 20 mg tablet Take 1 tablet by mouth at bedtime as needed. fluticasone (FLONASE) 50 mcg/actuation nasal spray Use 2 Sprays in each nostril once daily. (Patient not taking: Reported on 07/19/2018 ) No current facility-administered medications for this visit. Social History Marital status: Single Spouse name: Years of education: GED Number of children: 0 Occupational History Occupation Employer Comment Unemployed Social History Main Topics Smoking status: Former Smoker Packs/day: 0.00 Years: 3.00 Types: Cigarettes Quit date: 03/03/2018 Smokeless tobacco: Never Used Comment: 2 weeks no cigarettes Alcohol use: Yes Comment: Seldom Drug use: No Sexual activity: Yes Partners with: Male control/protection: None PAST MEDICAL HISTORY Diagnosis Date - 11/2009 - Anxiety - Asthma - Depression - Recurrent UTI - Seasonal allergies - STD (sexually transmitted disease) PAST SURGICAL HISTORY Procedure Laterality Date - COLONOSCOPY W/BX 03/02/11 - EGD W/O OR W/BRUSH/WASH 11/14/2012 EGD - MED INC ALL EX DRUG 11/2009 - PAST SURGICAL HISTORY OF WISDOM TEETH ANNUAL PCP TEAM CHRONIC DISEASE VISIT due on 1996 ONE PNEUMOVAX PRIOR TO AGE 63 due on 1997 Assessment and Plan 1. Fatigue, unspecified type - ICD9: 780.79, ICD10: R53.83 (primary diagnosis) - TSH BLD - CBC + DIFF - COMP METABOLIC PANEL - MONOTEST, INFECTIOUS MONO 2. Essential tremor - ICD9: 333.1, ICD10: G25.0 She feels propranolol may be making her tired, reduced dose from 40 mg twice a day to 10 mg 3 times a day. - CONSULT TO NEUROLOGY - PROPRANOLOL 10 MG TABLET 3. Smoking - ICD9: 305.1, ICD10: F17.200 - CONSULT TO SMOKING CESSATION - NICOTINE (POLACRILEX) 2 MG GUM Quin MartinezCHACHO.AGRICULTURAL ENGINEER September 15, 2018 Referring Provider: SELF [200] Allergies As of Date: 09/15/2018 Noted Allergy Reaction ANTI-BACTERIAL CLEANSING (BENZETH*10/26/2012 2 - Rash BEES 07/16/2010 16 - Unknown Comments: Listed on records from [facility] BENZALKONIUM CHLORIDE 09/08/2012 14 - Other: See Comments Comments: Skin irritations CLINDAMYCIN 03/27/2018 8 - GI Upset DOXYCYCLINE 12/13/2012 8 - GI Upset Comments: stomach cramps DUST MITES 04/26/2012 16 - Unknown Comments: Dust mites and cockroaches FLAGYL (METRONIDAZOLE HCL) 06/20/2012 4 - Hives 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 (ETHYL ALCOHOL (SK*11/04/2009 2 - Rash Comments: PT HAS SENSITIVE SKIN. O.K. FOR MEDICAL PROFESSIONAL TO USE 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 AND THEN TOUCH HER, BUT SHE HERSELF DOES NOT USE IT. IODINE 02/18/2011 2 - Rash LACTOSE INTOLERANCE (LACTASE) 11/04/2009 LATEX, NATURAL RUBBER 03/17/2018 2 - Rash [place] 12/07/2017 10 - Anaphylaxis MELOXICAM 06/12/2018 16 [...] Zofran causes cramping and constipation Date Reviewed: 09/15/2018 Reviewed by: Danielle Verdugo LPN - Fully Assessed Reason for Visit: Physical [83] Primary Visit Diagnosis:Fatigue, unspecified type [R53.83] Other Visit Diagnoses:Essential tremor [G25.0] Smoking [F17.200] Order(s):TSH BLD [SQTSH] Order #: [id number] FUTURE CBC + DIFF [SQCBCDIF] Order #: [id number] FUTURE COMP METABOLIC PANEL [SQCMP] Order #: [id number] FUTURE CONSULT TO SMOKING CESSATION [5040426] Order #: [id number]: 1 nicotine polacrilex (NICORELIEF) 2 mg gumTake 1 Each by mouth every 2 hours as needed.Disp: 60 EachRfl: 1 CONSULT TO NEUROLOGY [9019] Order #: [id number]: 1 propranolol (INDERAL) 10 mg tabletTake 1 tablet by mouth three times daily.Disp: 90 tabletRfl: 2 MONOTEST, INFECTIOUS MONO [SQMONOLX] Order #: [id number] FUTURE Prescriptions as of 09/15/2018 Sig: NAPROXEN 500 MG TABLET Take 500 mg by mouth twice da* RISPERIDONE 2 MG TABLET Take 2 mg by mouth twice miguelina* BENZTROPINE 0.5 MG TABLET Take 0.5 mg by mouth twice da* SODIUM CHLORIDE 0.9 % IRRIGAT* Combine 5 mL of the irrigatio* BECLOMETHASONE DIPROPIONATE 8* Inhale 2 Puffs as instructed * OXCARBAZEPINE 600 MG TABLET Take 600 mg by mouth twice da* MELATONIN ORAL Take by mouth. 6mg SODIUM CHLORIDE 0.65 % NASAL * Use 1 Gray in the nose as ne* ALBUTEROL SULFATE HFA 90 MCG/* Inhale 2 Puffs as instructed * LORATADINE 10 MG TABLET Take 1 tablet by mouth once d* MULTIVITAMIN CAPSULE Take 1 capsule by mouth once * NICOTINE (POLACRILEX) 2 MG GUM Take 1 Each by mouth every 2 * PROPRANOLOL 10 MG TABLET Take 1 tablet by mouth three * PALIPERIDONE ER 9 MG TABLET,E* Take 9 mg by mouth once daily. PSEUDOEPHEDRINE ER 120 MG TAB* Take 1 tablet by mouth every * Patient not taking: Reported on 07/19/2018 TYLENOL ORAL Take 325 mg by mouth. FAMOTIDINE 20 MG TABLET Take 1 tablet by mouth at bed* FLUTICASONE 50 MCG/ACTUATION * Use 2 Sprays in each nostril * Patient not taking: Reported on 07/19/2018 Problem List As Of Date 09/15/2018 Noted Resolved Frequency of urination [R35.0] INVALID [...] ordered this encounter Disp Refills Start End NICOTINE (POLACRILEX) 2 MG GUM 60 E* 1 09/15/2018 Route: ORAL Sig: Take 1 Each by mouth every 2 hours as needed. PROPRANOLOL 10 MG TABLET 90 t* 2 09/15/2018 Route: ORAL Sig: Take 1 tablet by mouth three times daily. Medications Discontinued During This Encounter propranolol (INDERAL) 40 mg tablet 09/15/2018 Class: Historical Med Route: ORAL Sig: Take 40 mg by mouth three times daily. Disc: Reason for discontinue is not on file. Follow-up and Disposition History Recorded Encounter Status:Closed by QUIN ROMAN on 09/15/18 EMERGENCY DEPARTMENT Observed: 09/13/2018 Status: F Source: [place] SUMMARY 1:19 AM [facility] REPOSITORY [facility] Medical Records Department [address] [place] [address] Emergency Department Summary 09/12/18 2308 MR#: [id number] Acct: [id number] Name: ANGELICA ANDUJAR Rep #: [id number] : 1980 37 From: Ho Kathleen DO PCP: Mallorie Juares Status: DEP ER - ER Visit Summary Date of Service: 09/12/18 Chief Complaint: Tremor History of Present Illness: The patient is a 37 F who presents with tremor to her right hand that has been constant for the past month. Patient thinks it is due to the Trileptal she was recently started on. Patient states she is having difficulty controlling her hand at times. Patient states that the tremors improve when she does not take her medication. Patient states the tremors localized to her right hand. Patient denies any headache. Patient denies any paresthesias or weakness. Patient states she wants her medications adjusted tonight. Physical Examination: Vital signs are stable. Patient is afebrile. Patient is in no acute distress. Cranial nerves II through XII are intact. Strength is 5/5 bilaterally upper and lower extremities. There are no sensory deficits noted. Oral mucosa was pink and moist. Neck is supple. Trachea is midline. There is no JVD noted. Heart was regular rate and rhythm. Lungs are clear and equal bilaterally. Abdomen is soft and nontender. The remaining physical exam is within normal limits. Emergency Department Course and Treatment: tanyard worker was in to see the patient. She was able to arrange for the patient to have an appointment tomorrow with a counselor at crisis counseling. Patient was instructed to follow-up with his appointment. Patient was also instructed to follow-up with her psychiatrist in 3 days as previously scheduled. Patient was advised to continue her medications as prescribed. Patient understood. All questions were answered. Disposition: Discharge home Impression: Essential tremor right hand This note was generated with Declaraation software. It may contain incorrect words, spelling, and punctuation that were not noted in review of the chart prior to signing ED Disposition - Plan for ED Patient: Disposition: Home or Assisted Living Chief Complaint: General Illness Diagnosis: Tremor Instructions: Essential Tremor Disorder Referrals: Mallorie Alexis, FALGUNIC [Primary Care Provider] - Additional Instructions: You will be able to see a counselor at the crisis counseling center tomorrow morning. Please follow-up with that appointment. What to do if you have Problems For any increased pain, shortness of breath, bleeding, nausea or vomiting, chest pain, or any unexpected problems, contact your Primary Care Provider. Call [facility] ([phone]) or report to the closest Emergency Room. Call 911 if necessary. 09/13/18 0119 <Electronically signed by Ho Kathleen DO> Date Ho Kathleen DO Cosigner Signature (If Indicated): Date CC: Mallorie DE LA TORRE EMERGENCY DEPARTMENT Observed: 09/04/2018 Status: F Source: [place] SUMMARY 8:54 PM [facility] REPOSITORY [facility] Medical Records Department [address] [place] [address] Emergency Department Summary 09/04/18 1559 MR#: [id number] Acct: [id number] Name: ANGELICA ANDUJAR C Rep #: [id number] : 1980 37 From: Lucero Floyd MD PCP: Mallorie Juares Status: REG ER - ER Visit Summary Date of Service: 09/04/18 Chief Complaint: Does not feel safe at home History of Present Illness: The patient is a 37 F presenting stating that she does not feel safe at home. She was seen in the ED yesterday for similar complaints. She was seen by the counseling center and was sent home to follow-up with counseling center. She states she still does not feel safe at home. She called crisis today and they advised her to come back to the ED. She is on medications for anxiety and depression. She states this causes her to shake all over. She has been shaking for the past several months. This is unchanged. She is concerned that she may accidentally overdose due to shaking while taking her medications. Physical Examination: Vitals are stable. Patient is afebrile. Alert no acute distress. HEENT exam is unremarkable. Neck is supple. Lungs are clear and equal bilaterally. Heart is regular rate and rhythm. Abdomen is soft nontender nondistended. Extremities are unremarkable. Skin is warm and dry. No focal neurologic deficit. Depressed affect Remainder of exam is unremarkable. Emergency Department Course and Treatment: CBC, chemistries unremarkable. HCG negative. Alcohol negative. Tox is negative. Will discuss with the counseling center for evaluation. Disposition: Per counseling center Impression: Depression with suicidal ideation This note was generated with Edictive dictation software. It may contain incorrect words, spelling, and punctuation that were not noted in review of the chart prior to signing ED Disposition - Plan for ED Patient: Chief Complaint: Suicidal Referrals: Mallorie Alexis, CLINICAL SUPPORT NURSE-C [Primary Care Provider] - What to do if you have Problems For any increased pain, shortness of breath, bleeding, nausea or vomiting, chest pain, or any unexpected problems, contact your Primary Care Provider. Call [facility] ([phone]) or report to the closest Emergency Room. Call 911 if necessary. 09/04/182053 <Electronically signed by Lucero Floyd MD> Date Lucero Floyd MD Cosigner Signature (If Indicated): Date CC: Mallorie DE LA TORRE URINE DRUG SCREEN Collected: 09/04/2018 Status: F Source: [place] ([place]UL[place]) 6:40 PM [facility] REPOSITORY TYPE CODE TESTS RESULT OUT [...] Normal NEGATIVE Performed By: #### L505.5000 #### [facility] [place], [address] CBC W/DIFF, AUTOMATED Collected: 09/04/2018 Status: F Source: [place] 4:15 PM [facility] REPOSITORY TYPE CODE TESTS RESULT OUT OF RANGE REFERENCE UNITS LAB L100.1000 4.4-11.0 K/mm3 Normal WBC 7.2 LAB L100.1200 4.2-5.4 M/mm3 Normal RBC 4.90 LAB L100.1300 12.0-15.0 g/dl Normal HGB 13.5 LAB L100.1400 37-47 % Normal HCT 40.3 LAB L100.1500 81-99 fL Normal MCV 82.2 LAB L100.1600 27.0-32.0 pg Normal MCH 27.6 LAB L100.1700 32-36 g/gl Normal MCHC 33.5 LAB L100.1810 11.6-14.6 % Normal RDW CV 13.4 LAB L100.1820 35.1-43.9 fl Normal RDW SD 40.2 LAB L100.1900 150-450 K/mm3 Normal PLT 263 LAB L100.2000 6.2-12.0 fl Normal MPV 9.2 LAB L100.2100 47-70 % Normal NEUT% 61.7 LAB L100.2200 19-41 % Normal LY% 29.0 LAB L100.2300 0-10 % Normal MONO% 7.0 LAB L100.2400 0-5 % Normal EO% 1.9 LAB L100.2500 0-1 % Normal BASO% 0.3 LAB L100.2550 0.0-0.9 % Normal IM GRAN % 0.100 Result Comment: IG% - Immature Granulocytes (promyelocytes, myelocytes and metamyelocytes) > 1% indicates that a LEFT SHIFT is Present. LAB L100.2620 2.0-7.7 X10 3/uL Normal Absolute Neut 4.5 LAB L100.2720 0.83-4.51 X10 3/ul Normal Absolute Lymph 2.10 Performed By: #### L100.0100 #### [facility] [address] [place], [address] BASIC METABOLIC Collected: 09/04/2018 Status: F Source: [place] PROFILE ([facility]) 4:15 PM [facility] REPOSITORY TYPE CODE TESTS RESULT OUT OF RANGE REFERENCE UNITS LAB L501.0100 74-106 mg/dL High GLU 121 Result Comment: Fasting Glucose result from 100 to 125 mg/dL suggests IMPAIRED HOMEOSTASIS per A.D.A. criteria. Please note revised GLUCOSE reference range effective 2017. LAB L501.1000 7-18 mg/dL Normal BUN 11 LAB L501.1100 0.55-1.02 mg/dL Normal CREAT,SERUM 0.76 Result Comment: The validity of the calculated GFR AND GFRAA in patients over 70 years has not been determined. Clinical correlation is essential. LAB L501.1110 >60 mL/min Normal EST GFR 90 Result Comment: Non- GFR Calc LAB L501.1115 >60 mL/min Normal EST GFR - AA 109 Result Comment: GFR Calc LAB L501.1255 ml/min Normal Estimated CRCL 96.64 LAB L501.1300 10-20 RATIO Normal BUN/CRE 14.5 LAB L501.2200 8.5-10 mg/dL Normal .1 CA 8.8 LAB L501.5300 136-14 mmol/L Low 5 NA 135 LAB L501.5600 3.5-5. mmol/L Normal 1 K 3.6 LAB L501.5900 98-107 mmol/L Normal CL 100 LAB L501.6100 21.0-3 mmol/L Normal 2.0 CO2 25.0 LAB L501.6200 5-15 Normal GAP 10 Performed By: #### L500.2500 #### [facility] [address] [place], [place], [address] ALCOHOL, BLOOD Collected: 09/04/2018 Status: F Source: [place] ([facility])-SERUM 4:15 PM [facility] REPOSITORY TYPE CODE TESTS RESULT OUT [...] fatal coma Performed By: #### L501.9100 #### [facility] [address] [place], [place], [address] ,SERUM,HCG QUALI. Collected: Status: F Source: [place] 09/04/2018 4:15 PM [facility] REPOSITORY TYPE CODE TESTS RESULT OUT OF REFERENCE UNITS RANGE LAB L700.6700 =>Qualitative mIU/mL Normal HCG Qual < 1 triggr LAB L700.7000 0-9 Nonpreg Negative Normal HCGSQUAL NEGATIVE Performed By: #### L700.6800 #### [facility] [address] [facility] [place], [place], [id number] DISCHARGE INSTRUCTION Observed: 09/03/2018 Status: F Source: [place] 11:57 PM [facility] REPOSITORY [facility] Medical Records Department [address] [place] [address] Discharge Instruction 09/03/181918 MR#: [id number] Acct: [id number] Name: ANGELICA ANDUJAR Rep #: [id number] : 1980 37 From: Stephan Witt MD PCP: Mallorie Juares Status: DEP ER ED Disposition - Plan for ED Patient: Chief Complaint: Mental Health Additional Instructions: follow up as directed with counseling What to do if you have Problems For any increased pain, shortness of breath, bleeding, nausea or vomiting, chest pain, or any unexpected problems, contact your Primary Care Provider. Call [facility] ([phone]) or report to the closest Emergency Room. Call 911 if necessary. 09/03/18 2734 <Electronically signed by Stephan Witt MD> Date Stephan Witt MD Cosigner Signature (If Indicated): Date CC: Mallorie DE [place] URINE DRUG SCREEN Collected: 09/03/2018 Status: F Source: [place] (VIST[place]) 4:45 PM [facility] REPOSITORY TYPE CODE TESTS RESULT OUT [...] MNEMONIC: [facility] LAB L505.5005 VISTA UDS PH 7 Normal LAB L505.5015 <1000 ng/mL AMPHETAMINES Normal [...] Normal NEGATIVE Performed By: #### L505.5000 #### [facility] [address] [place] [place], [address] ,SERUM,HCG QUALI. Collected: Status: F Source: [place] 09/03/2018 4:45 PM [facility] REPOSITORY TYPE CODE TESTS RESULT OUT OF REFERENCE UNITS RANGE LAB L700.7000 0-9 Nonpreg Negative Normal HCGSQUAL NEGATIVE LAB L700.6700 =>Qualitative mIU/mL Normal HCG Qual < 1 triggr Performed By: #### L700.6800 #### [facility] [address] [place] [place], [address] EMERGENCY DEPARTMENT Observed: 09/03/2018 Status: F Source: [place] SUMMARY 4:44 PM [facility] REPOSITORY [facility] Medical Records Department [address] [place] [address] Emergency Department Summary 09/03/18 1619 MR#: [id number] Acct: [id number] Name: ANGELICA ANDUJAR Rep #: [id number] : 1980 37 From: Yariel Hilton MD PCP: Mallorie Juares Status: REG ER - ER Visit Summary Date of Service: 09/03/18 Chief Complaint: Shaking, anxious History of Present Illness: The patient is a 37 F presents to the emergency department with multiple complaints. The patient has a history of anxiety and depression. She was recently placed on Trileptal. She states starting the medication, she is been very shaky. She states that she does not fully control her symptoms. She states that she does not feel safe at home. She is been seen multiple times for the same. She called the counseling center and was referred in for further evaluation. She denies being overtly suicidal, but states that she cannot live like this. She denies any fevers or chills. She denies any other systemic symptoms. Physical Examination: Vital signs reviewed General: Well-nourished, [...] Emergency Department Course and Treatment: The patient presents to the emergency department with multiple complaints. She complains of a tremor. However, when she was distracted, her tremor resolves. She has already discussed her care with crisis and feels like she would need psychiatric evaluation. Screening labs will be obtained. The patient will be seen and evaluated by crisis. Disposition is currently pending. Treatment Plan: [] Disposition: Pending Impression: 1. Anxiety This note was generated with Edictive dictation software. It may contain incorrect words, spelling, and punctuation that were not noted in review of the chart prior to signing ED Disposition - Plan for ED Patient: Chief Complaint: Mental Health Referrals: Mallorie Alexis NP-C [Primary Care Provider] - What to do if you have Problems For any increased pain, shortness of breath, bleeding, nausea or vomiting, chest pain, or any unexpected problems, contact your Primary Care Provider. Call [facility] ([phone]) or report to the closest Emergency Room. Call 911 if necessary. 09/03/18 0141 <Electronically signed by Yariel Hilton MD> Date Yariel Hilton MD Cosigner Signature (If Indicated): Date CC: Mallorie Alexis WIL CBC W/DIFF, AUTOMATED Collected: 09/03/2018 Status: F Source: LANI 4:10 PM [facility] REPOSITORY TYPE CODE TESTS RESULT OUT OF RANGE REFERENCE UNITS LAB L100.1000 4.4-11.0 K/mm3 Normal WBC 6.4 LAB L100.1200 4.2-5.4 M/mm3 Normal RBC 4.92 LAB L100.1300 12.0-15.0 g/dl Normal HGB 13.7 LAB L100.1400 37-47 % Normal HCT 40.6 LAB L100.1500 81-99 fL Normal MCV 82.5 LAB L100.1600 27.0-32.0 pg Normal MCH 27.8 LAB L100.1700 32-36 g/gl Normal MCHC 33.7 LAB L100.1810 11.6-14.6 % Normal RDW CV 13.2 LAB L100.1820 35.1-43.9 fl Normal RDW SD 39.8 LAB L100.1900 150-450 K/mm3 Normal PLT 273 LAB L100.2000 6.2-12.0 fl Normal MPV 9.3 LAB L100.2100 47-70 % Normal NEUT% 59.5 LAB L100.2200 19-41 % Normal LY% 27.5 LAB L100.2300 0-10 % Normal MONO% 8.9 LAB L100.2400 0-5 % Normal EO% 3.6 LAB L100.2500 0-1 % Normal BASO% 0.3 LAB L100.2550 0.0-0.9 % Normal IM GRAN % 0.200 Result Comment: IG% - Immature Granulocytes (promyelocytes, myelocytes and metamyelocytes) > 1% indicates that a LEFT SHIFT is Present. LAB L100.2620 2.0-7.7 X10 3/uL Normal Absolute Neut 3.8 LAB L100.2720 0.83-4.51 X10 3/ul Normal Absolute Lymph 1.77 Performed By: #### L100.0100 #### [facility] [place], [place], [id number] BASIC METABOLIC Collected: 09/03/2018 Status: F Source: LANI PROFILE (BMP) 4:10 PM [facility] REPOSITORY TYPE CODE TESTS RESULT OUT OF RANGE REFERENCE UNITS LAB L501.0100 74-106 mg/dL Normal GLU 102 Result Comment: Fasting Glucose result from 100 to 125 mg/dL suggests IMPAIRED HOMEOSTASIS per A.D.A. criteria. Please note revised GLUCOSE reference range effective 2017. LAB L501.1000 7-18 mg/dL Normal BUN 11 LAB L501.1100 0.55-1.02 mg/dL Normal CREAT,SERUM 0.76 [...] 96.64 LAB L501.1300 10-20 RATIO Normal BUN/CRE 14.4 LAB L501.2200 8.5-10 mg/dL Normal .1 CA 8.6 LAB L501.5300 136-14 mmol/L Low 5 NA 135 LAB L501.5600 3.5-5. mmol/L Normal 1 K 4.1 Result Comment: Moderate Hemolysis, Result may be falsely increased. LAB L501.5900 98-107 mmol/L Normal CL 103 LAB L501.6100 21.0-32.0 mmol/L Normal CO2 25.0 LAB L501.6200 5-15 Normal 7 GAP Performed By: #### L500.2500 #### [facility] [address] [place], [address] ALCOHOL, BLOOD Collected: 09/03/2018 Status: F Source: LANI (MEDICAL)-SERUM 4:10 PM [facility] REPOSITORY TYPE CODE TESTS RESULT OUT [...] fatal coma Performed By: #### L501.9100 #### [facility] [address] [place], [address] TRILEPTAL-OXCARBAZEPINE Collected: Status: F Source: [place] 09/03/2018 4:10 PM [facility] REPOSITORY TYPE CODE TESTS RESULT OUT OF RANGE REFERENCE UNITS LAB L3800.1700 10-35 ug/mL Normal TRILEPT 23 [id number] Result Comment: Detection Limit = 1 Performed at: - [facility] [id number] Geochemical Manager: Marilee Zuleta MD, Phone: [phone] Performed By: #### L3800.1700 #### [facility] (refer to report for specific site) refer to report for address and phone number PROGRESS Observed: 08/14/2018 Status: COMPLETED Source: [place] 9:29 AM [facility] REPOSITORY HNO ID: [id number] Author: Shara Llamas Service: (none) Author Type: (none) Type: Progress Notes Filed: 08/14/2018 9:30 AM Note Text: Pap logged and normal pap letter sent to patient. Shara Llamas EMERGENCY DEPARTMENT Observed: 08/09/2018 Status: F Source: [place] SUMMARY 11:33 PM [facility] REPOSITORY [facility] Medical Records Department [address] [place] [address] Emergency Department Summary 08/09/18 1550 MR#: [id number] Acct: [id number] Name: ANGELICA ANDUJAR Rep #: [id number] : 1980 37 From: Elvi Wick MD PCP: [facility] Status: DEP ER - ER Visit [...] for dehydration This note was generated with Edictive dictation software. It may contain incorrect words, [...] your Primary Care Provider. Call [facility] ([phone]) or report to the closest Emergency Room. Call 911 if necessary. 08/09/18 2300 <Electronically signed by Elvi Wick MD> Date Elvi Wick MD Cosigner Signature (If Indicated): Date CC: SAMANTHA MENON [facility] DISCHARGE INSTRUCTION Observed: 08/09/2018 Status: F Source: LANI 5:38 PM [facility] REPOSITORY [facility] Medical Records Department [address] [place] [address] Discharge Instruction 08/09/181737 MR#: [id number] Acct: [id number] Name: ANGELICA ANDUJAR Rep #: [id number] : 1980 37 From: Elvi Wick MD [...] your Primary Care Provider. Call [facility] ([phone]) or report to the closest Emergency Room. Call 911 if necessary. 08/09/181737 <Electronically signed by Elvi Wick MD> Date Elvi Wick MD Cosigner Signature (If Indicated): Date CC: SAMANTHA BEJARANO URINALYSIS, COMPLETE Collected: 08/09/2018 Status: F Source: [place]I 4:05 PM [facility] REPOSITORY Order Comment: Order Date: 08/09/18 How was Urine Obtained? MEDIA LIAISON OFFICER TO SPECIFY TYPE CODE TESTS RESULT OUT [...] URINE SEEN Performed By: #### L400.0001 #### [facility] [address] [facility] [place], [address] EMERGENCY DEPARTMENT Observed: 08/07/2018 Status: F Source: [place] SUMMARY 2:46 AM [facility] REPOSITORY [facility] Medical Records Department [address] [place] [address] Emergency Department Summary 08/07/18 0031 MR#: [id number] Acct: [id number] Name: ANGELICA ANDUJAR Rep #: [id number] : 1980 37 From: Derrick Valderrama MD PCP: [facility] Status: DEP ER History of Present Illness [...] states earlier this morning, she was in yazdanism when she took her dose and is [...] SOAP Allergy (Uncoded 08/07/18 00:09) Hives 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 Allergy (Uncoded 08/07/18 00:09) Hives SEASONAL ALLERGIES Allergy (Uncoded 08/07/18 00:09) Other Primary Care Physician: [facility] Samantha Bejarano [Primary Care Provider] - As [...] Paresthesias Instructions: ED Stress React Referrals: Free Loraine,Samantha Hood [Primary Care Provider] - As Needed Additional Instructions: Continue your medication wean tomorrow as previously directed by your psychiatrist. What to do if you have Problems For any increased pain, shortness of breath, bleeding, nausea or vomiting, chest pain, or any unexpected problems, contact your Primary Care Provider. Call [facility] ([phone]) or report to the closest Emergency Room. Call 911 if necessary. 08/07/18 0246 <Electronically signed by Derrick Valderrama MD> Date Derrick Valderrama MD Cosigner Signature (If Indicated): Date CC: [facility] CNOV Observed: 08/04/2018 Status: COMPLETED Source: [place] 1:15 PM [facility] REPOSITORY Office Visit (WOOB) ANDUJARANGELICA ([id number]) 1980 F Date Time Provider Department 08/04/18 [...] external genitalia normal, normal Bartholin's glands, urethra, Furley's glands, no vulvar lesions, no cervical lesions, [...] Discussed with her she can see a registered dietician for another option. Also discussed using 1/2 [...] 25 26 27 28 29 30 31 Oct. November. Jun. Aug. Don't forget to have this chart [...] (METRONIDAZOLE HCL) 06/20/2012 4 - Hives 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 (ETHYL ALCOHOL (SK*11/04/2009 2 - Rash Comments: PT HAS SENSITIVE SKIN. O.K. FOR MEDICAL PROFESSIONAL TO USE 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 AND THEN TOUCH HER, BUT SHE HERSELF DOES NOT USE IT. IODINE 02/18/2011 2 - Rash LACTOSE INTOLERANCE (LACTASE) 11/04/2009 LATEX, NATURAL RUBBER 03/17/2018 2 - Rash [place] 12/07/2017 10 - Anaphylaxis MELOXICAM 06/12/2018 16 [...] [Z12.31] Vulvovaginitis [N76.0] Order(s):PAP FLUID CERVICAL SCREENING [[id number]] Order #: [id number]. #:[id number] GC/CHLAMYDIA DNA DET [SQGCCAMP] Order #: [id number]. #:[id number] HIV 1,2 COMBO (AG/AB) [SQHIV12] Order #: [id number] FUTURE HEP B SURF AG SCRN [SQHBSAG] Order #: [id number] FUTURE SYPHILIS IGG WITH CONF [SQSYPHGX] Order #: [id number] FUTURE HEP C AB IA W/CONF SCRN [DHFMUQ0U] Order #: [id number] FUTURE MARGUERITE SCREENING [1798859] Order #: [id number] FUTURE HCG QUAL UR B/O [3849677] Order #: [id number] sodium chloride 0.9 % IRRIGATIONCombine 5 mL of the irrigation with 5 mL of hydrogen peroxide. Gray over vulvar area as needed after using restroom.Disp: 500 mLRfl: 0 HPV W/GENOTYPE [SQHPVHRR] Order #: [id number]. #:[id number] Prescriptions as of 08/04/2018 Sig: BENZTROPINE 0.5 MG TABLET Take 0.5 mg by mouth twice da* BECLOMETHASONE DIPROPIONATE 8* Inhale 2 Puffs as instructed * OXCARBAZEPINE 600 MG TABLET Take 600 mg by mouth twice da* MELATONIN ORAL Take by mouth. 6mg PALIPERIDONE ER 9 MG TABLET,E* Take 9 mg by mouth once daily. SODIUM CHLORIDE 0.65 % NASAL * Use 1 Gray in the nose as ne* TYLENOL ORAL [...] irrigation with 5 mL of hydrogen peroxide. Gray over vulvar area as needed after using restroom. Level of Service: WELLNESS EXAMS EST 18-39 YRS [09771] Disposition: Return in 1 year (on 08/04/2019) for Annual Exam. Follow-up and Disposition History Recorded Letter Text Francisca Wen [facility] [address] [place], [place] [address] Angelica Andujar [facility] [address] [address] 08/14/2018 [facility]: [id number] Dear Angelica, We are pleased to inform [...] GC/CHLAMYDIA AMPLIF Collected: 08/04/2018 Status: F Source: [place] 12:00 [facility] REPOSITORY TYPE CODE TESTS RESULT OUT OF REFERENCE UNITS RANGE LAB GCCTSR GC/Chlam Amp Cervix Source LAB GCAMPL GC Negative Amplification for Neisseria gonorrhoeae by amplification. LAB CLAMPL Chlamydia Negative Amplif for Chlamydia trachomatis by amplification. Performed By: #### GCCT #### [facility] [employer] [address] [id number] HPV W/GENOTYPE Collected: 08/04/2018 Status: F Source: [place] 12:00 [facility] REPOSITORY TYPE CODE TESTS RESULT [...] developed and its performance characteristics determined by [facility]'s Ashok Serrano [facility] Pathology and Laboratory [facility] [place] ([facility]). It has not been cleared or approved by the FDA. [facility] is regulated under CLIA as qualified to perform high-complexity testing. This test is used for clinical purposes. It should not be regarded as inv estigational or for research. Performed By: #### HPVHRR #### [facility] [employer] [address] [place], [place] [address] CYTOLOGY Observed: 08/04/2018 Status: C Source: [place] 12:00 [facility] REPOSITORY ADDITIONAL PROCEDURES PRESENT Specimen originated from [facility] Specimen #: [id number] Submitting Physician: FRANCISCA WEN DO SPECIMEN SUBMITTED [...] from every slide are reviewed by a film reproducer. FLOWER Tolliver(ASCP) (Electronic Signature) ADDITIONAL PROCEDURE(S) HUMAN PAPILLOMA VIRUS Date Ordered: 08/07/2018 Date Reported: 08/08/2018 Procedure Results and Interpretation Negative for HPV DNA high risk type 16 by PCR. Negative for HPV DNA high risk type 18 by PCR. Negative for HPV DNA high risk types: 31,33,35,39,45,51,52,56,58,59,66,68 by PCR. This test was developed and its performance characteristics determined by [facility]'s Ashok Serrano [facility] [place] ([facility]). It has not been cleared or approved by the FDA. [facility] is regulated under CLIA as qualified to perform high-complexity testing. This test is used for clinical purposes. It should not be regarded as investigational or for research. CLINICAL DATA ROUTINE EXAM, HPV Testing: Yes, automatic HPV patients over 30 Date of Last Menstrual Period: unknown STAINS A: CERVICAL, SCREENING, FLUID THIN PREP [facility] PROGRAM COORDINATOR Juana Durán M.D., Clock Repairer Date of Report: 08/11/2018 Date of Procedure: 08/04/2018 Date of Receipt: 08/07/2018 Submitted by: FRANCISCA WEN DO Location: [facility] Diagnostic interpretation performed at [facility], [address] [place] [address]. The Pap Smear is a screening test for cervical cancer. False negative results occur with all screening tests, emphasizing the need for rescreening at recommended intervals, and clinical correlation. PROGRESS Observed: 08/04/2018 Status: COMPLETED Source: [place] 11:26 AM [facility] REPOSITORY HNO ID: [id number] Author: Francisca Wen Service: (none) Author Type: [...] external genitalia normal, normal Bartholin's glands, urethra, Furley's glands, no vulvar lesions, no cervical lesions, [...] Discussed with her she can see a registered dietician for another option. Also discussed using 2 NS and 1/2 hydrogen peroxide, to spray over vulvar area prn after using restroom. Discussed oral medications for pruritis RTO 1 year for annual exam Francisca Wen DO EMERGENCY DEPARTMENT Observed: 07/30/2018 Status: F Source: [place] SUMMARY 2:14 AM [facility] REPOSITORY [facility] Medical Records Department [address] [place] [address] Emergency Department Summary 07/29/18 1707 MR#: [id number] Acct: [id number] Name: ANGELICA ANDUJAR Rep #: [id number] : 1980 37 From: Kasandra Cooper MD [...] pain, insomnia This note was generated with Edictive dictation software. It may contain incorrect words, [...] your Primary Care Provider. Call [facility] ([phone]) or report to the closest Emergency Room. Call 911 if necessary. 07/30/18 0214 <Electronically signed by Kasandra Cooper MD> Date Kasandra Cooper MD Cosigner Signature (If Indicated): Date CC: [facility] EMERGENCY DEPARTMENT Observed: 07/30/2018 Status: F Source: LANI SUMMARY 1:47 AM [facility] REPOSITORY [facility] Medical Records Department [address] [place] [address] Emergency Department Summary 07/29/18 2225 MR#: [id number] Acct: [id number] Name: ANGELICA ANDUJAR Rep #: [id number] : 1980 37 From: Juana Christopher MD PCP: [facility] Status: DEP [...] Impression: Anxiety This note was generated with Edictive dictation software. It may contain incorrect words, spelling, and punctuation that were not noted in review of the chart prior to signing ED Disposition - Plan for ED Patient: Disposition: Home or Assisted Living Chief Complaint: Anxiety Instructions: ED Stress React Referrals: Counseling,Center [GROUP OF PHYSICIANS] - As soon as possible Additional Instructions: I will speak to staff from the [facility] to help arrange phone call checks and close follow-up. What to do if you have Problems For any increased pain, shortness of breath, bleeding, nausea or vomiting, chest pain, or any unexpected problems, contact your Primary Care Provider. Call [facility] ([phone]) or report to the closest Emergency Room. Call 911 if necessary. 07/30/18 014 <Electronically signed by Juana Christopher MD> Date Juana Christopher MD Cosigner Signature (If Indicated): Date CC: SAMANTHA BEJARANO DISCHARGE INSTRUCTION Observed: 07/30/2018 Status: F Source: LANI 1:05 AM [facility] REPOSITORY [facility] Medical Records Department [address] [place] [address] Discharge Instruction 07/29/18 1708 MR#: [id number] Acct: [id number] Name: ANGELICA ANDUJAR Rep #: [id number] : 1980 37 From: Kasandra Cooper MD PCP: SAMANTHA BEJARANO Status: [facility] ER ED Disposition - Plan for ED [...] your Primary Care Provider. Call [facility] ([phone]) or report to the closest Emergency Room. Call 911 if necessary. 07/30/18 0105 <Electronically signed by Kasandra Cooper MD> Date Kasandra Campos Signature (If Indicated): Date CC: [facility] DISCHARGE INSTRUCTION Observed: 07/29/2018 Status: F Source: [place]I 10:26 PM [facility] REPOSITORY [facility] Medical Records Department [address] [place] [address] Discharge Instruction 07/29/182224 MR#: [id number] Acct: [id number] Name: ANGELICA ANDUJAR Rep #: [id number] : 1980 37 From: Juana Christopher MD PCP: SAMANTHA BEJARANO Status: REG ER ED Disposition - Plan for ED Patient: Disposition: Home or Assisted Living Chief Complaint: Anxiety Instructions: ED Stress React Referrals: Counseling,Center [GROUP OF PHYSICIANS] - As soon as possible Additional Instructions: I will speak to staff from the [facility] to help arrange phone call checks and close follow-up. What to do if you have Problems For any increased pain, shortness of breath, bleeding, nausea or vomiting, chest pain, or any unexpected problems, contact your Primary Care Provider. Call [facility] ([phone]) or report to the closest Emergency Room. Call 911 if necessary. 07/29/182225 <Electronically signed by Juana Christopher MD> Date Juana Campos Signature (If Indicated): Date CC: [facility] EMERGENCY DEPARTMENT Observed: 07/26/2018 Status: F Source: [place] SUMMARY 6:51 AM [facility] REPOSITORY [facility] Medical Records Department [address] [place] [address] Emergency Department Summary 07/24/18 1939 MR#: [id number] Acct: [id number] Name: ANGELICA ANDUJAR Rep #: [id number] : 1980 37 From: Stephan Madison DO [...] 1. Anxiety This note was generated with Edictive dictation software. It may contain incorrect words, [...] your Primary Care Provider. Call [facility] ([phone]) or report to the closest Emergency Room. Call 911 if necessary. 07/26/18 0651 <Electronically signed by Stephan Madison DO> Date Stephan Madison DO Cosigner Signature (If Indicated): Date CC: SAMANTHA BEJARANO EMERGENCY DEPARTMENT Observed: 07/25/2018 Status: F Source: [place] SUMMARY 9:40 AM [facility] REPOSITORY [facility] Medical Records Department [address] [place] [address] Emergency Department Summary 07/25/18 0934 MR#: [id number] Acct: [id number] Name: ANGELICA ANDUJAR Rep #: [id number] : 1980 37 From: Ronald Mcqueen PCP: [...] cervical spine This note was generated with Edictive dictation software. It may contain incorrect words, [...] 500 mg PO BID #20 tablet Referrals: Katharina Bejarano,Samantha Hood [Primary Care Provider] - 3-5 Days What to do if you have Problems For any increased pain, shortness of breath, bleeding, nausea or vomiting, chest pain, or any unexpected problems, contact your Primary Care Provider. Call [facility] ([phone]) or report to the closest Emergency Room. Call 911 if necessary. 07/25/18 0988 <Electronically signed by Ronald Mcqueen> Date Ronald Mcqueen Cosigner Signature (If Indicated): Date CC: [facility] SINUS/FACIAL BONE Observed: 07/24/2018 Status: F Source: [place] 2:30 PM [facility] REPOSITORY [facility] Imaging Services [address] [place] [address] Sinus/Facial Bone MR#: [id number] Acct: [id number] Name: ANGELICA ANDUJAR Rep #: [id number] : 1980 F 37 From: Danielle Camargo MD PCP: [facility] Status: REG CLI Study: Sinus/Facial Bone Date of Exam: 07/24/18 Exam# [id number] Ordering Dr: Frank Knight MD STUDY: CT [...] CC: Jose Carlos Knight MD; SAMANTHA BEJARANO [employer]en Suiting Shrinker: Signed EMERGENCY DEPARTMENT Observed: 07/24/2018 Status: F Source: [place] SUMMARY 2:22 PM [facility] REPOSITORY [facility] Medical Records Department [address] [place] [address] Emergency Department Summary 07/24/18 1356 MR#: [id number] Acct: [id number] Name: ANGELICA ANDUJAR Rep #: [id number] : 1980 37 From: Yariel Hilton MD [...] unremarkable. Examination was done with female nurse internal medicine doctor. She does have an examination is consistent [...] Impression: Folliculitis This note was generated with Edictive dictation software. It may contain incorrect words, spelling, and punctuation that were not noted in review of the chart prior to signing ED Disposition - Plan for ED Patient: Chief Complaint: Rash Instructions: ED Folliculitis Prescriptions: Clindamycin Phosphate [Cleocin T] 60 ml TP TID #1 lotion Referrals: Katharina Bejarano,Samantha Hood [Primary Care Provider] - What to do if you have Problems For any increased pain, shortness of breath, bleeding, nausea or vomiting, chest pain, or any unexpected problems, contact your Primary Care Provider. Call [facility] ([phone]) or report to the closest Emergency Room. Call 911 if necessary. 07/24/18 1422 <Electronically signed by Yariel Hilton MD> Date Yariel Hilton MD Cosigner Signature (If Indicated): Date CC: [facility] PROGRESS Observed: 07/21/2018 Status: COMPLETED Source: [place] 10:31 AM [facility] REPOSITORY HNO ID: [id number] Author: Francisca Wen Service: (none) Author Type: Physician Type: Progress Notes Filed: 07/21/2018 10:31 AM Note Text: Can you let the patient know her culture was negative for a bacterial and yeast infection. She should continue perineal hygiene and care that was discussed at her visit. Thanks Observed: 07/19/2018 Status: F Source: [place] BACT/CAND VAG GRM ST 2:25 PM [facility] REPOSITORY Sp. Request/Comment: - Swab Smear Result - BACTERIAL VAGINOSIS RESULT: Stain results consistent with normal vaginal keisha. No Yeast observed No Polymorphonuclear Leukocytes Performed By: #### BVCNSM #### [facility] [address] [place], [place] [address] PROGRESS Observed: 07/19/2018 Status: COMPLETED Source: [place] 2:17 PM [facility] REPOSITORY HNO ID: [id number] Author: Francisca Wen Service: (none) Author Type: [...] OCEAN) 0.65 % nasal spray Use 1 Gray in the nose as needed for Cold/Allergy [...] Unknown FLAGYL [METRONIDAZOLE HCL] 06/20/2012 Hives 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 [ETHYL ALCOHOL (SK*11/04/2009 Rash IODINE 02/18/2011 Rash LACTOSE INTOLERANCE [LACTASE] 11/04/2009 LATEX, NATURAL RUBBER 03/17/2018 Rash [place] 12/07/2017 Anaphylaxis MELOXICAM 06/12/2018 Unknown METRONIDAZOLE 04/11/2018 [...] external genitalia normal, normal Bartholin's glands, urethra, Furley's glands, no vulvar lesions, no cervical lesions, [...] or signs on infection Francisca Wen DO CNOV Observed: 07/19/2018 Status: COMPLETED Source: [place] 2:15 PM [facility] REPOSITORY Office Visit (WOOB) ANGELICA ANDUJAR ([id number]) 1980 F Date Time Provider Department 07/19/18 [...] OCEAN) 0.65 % nasal spray Use 1 Gray in the nose as needed for Cold/Allergy [...] Unknown FLAGYL [METRONIDAZOLE HCL] 06/20/2012 Hives 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 [ETHYL ALCOHOL (SK*11/04/2009 Rash IODINE 02/18/2011 Rash LACTOSE INTOLERANCE [LACTASE] 11/04/2009 LATEX, NATURAL RUBBER 03/17/2018 Rash [place] 12/07/2017 Anaphylaxis MELOXICAM 06/12/2018 Unknown METRONIDAZOLE 04/11/2018 [...] external genitalia normal, normal Bartholin's glands, urethra, Furley's glands, no vulvar lesions, no cervical lesions, [...] (METRONIDAZOLE HCL) 06/20/2012 4 - Hives 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 (ETHYL ALCOHOL (SK*11/04/2009 2 - Rash Comments: PT HAS SENSITIVE SKIN. O.K. FOR MEDICAL PROFESSIONAL TO USE 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 AND THEN TOUCH HER, BUT SHE HERSELF DOES NOT USE IT. IODINE 02/18/2011 2 - Rash LACTOSE INTOLERANCE (LACTASE) 11/04/2009 LATEX, NATURAL RUBBER 03/17/2018 2 - Rash [place] 12/07/2017 10 - Anaphylaxis MELOXICAM 06/12/2018 16 [...] Order(s):BACT/MISTY VAG GRAM STAIN [SQBVCNSM] Order #: [id number] UA DIP, URINE (POC) [[id number]] Order #: [id number]. #:[id number] Prescriptions as of 07/19/2018 Sig: BECLOMETHASONE DIPROPIONATE 8* Inhale 2 Puffs as instructed * OXCARBAZEPINE 600 MG TABLET Take 600 mg by mouth twice da* MELATONIN ORAL Take by mouth. 6mg PALIPERIDONE ER 9 MG TABLET,E* Take 9 mg by mouth once daily. SODIUM CHLORIDE 0.65 % NASAL * Use 1 Gray in the nose as ne* ALBUTEROL SULFATE [...] rhinitis [J30.9] INVALID FOR* Level of Service: [facility] PATIENT VISIT LEVEL 3 [[id number]] Disposition: Return for Schedule annual exam soonest possible. Follow-up and Disposition History Recorded Encounter Status:Closed by FRANCISCA WEN MD on 07/19/18 PROGRESS Observed: 07/13/2018 Status: COMPLETED Source: [place] 8:39 AM [facility] [place] REPOSITORY HNO ID: [id number] Author: Souleymane Mclaughlin ([place]) Service: (none) Author Type: Physician Bilingual Social Worker Type: Progress Notes Filed: 07/13/2018 8:43 AM [...] OCEAN) 0.65 % nasal spray Use 1 Gray in the nose as needed for Cold/Allergy [...] ICD10: R09.81 I did give her some [place] saline nasal spray. Also to give her [...] RAYMUNDO Yousif Observed: 07/13/2018 Status: COMPLETED Source: [place] 8:00 AM [facility] REPOSITORY Office Visit (WSTR) ANDUJARANGELICA ([id number]) 1980 F Date Time Provider Department 07/13/18 8:00 AM SOULEYMANE MCLAUGHLIN) UCWSTR During your visit today, we recorded the [...] OCEAN) 0.65 % nasal spray Use 1 Gray in the nose as needed for Cold/Allergy [...] ICD10: R09.81 I did give her some [place] saline nasal spray. Also to give her [...] (METRONIDAZOLE HCL) 06/20/2012 4 - Hives 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 (ETHYL ALCOHOL (SK*11/04/2009 2 - Rash Comments: PT HAS SENSITIVE SKIN. O.K. FOR MEDICAL PROFESSIONAL TO USE 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 AND THEN TOUCH HER, BUT SHE HERSELF DOES NOT USE IT. IODINE 02/18/2011 2 - Rash LACTOSE INTOLERANCE (LACTASE) 11/04/2009 LATEX, NATURAL RUBBER 03/17/2018 2 - Rash [place] 12/07/2017 10 - Anaphylaxis MELOXICAM 06/12/2018 16 [...] (AYR, OCEAN) 0.65 % nasal sprayUse 1 Gray in the nose as needed for Cold/Allergy Symptoms.Disp: 1 BottleRfl: 0 Pseudoephedrine HCl (SUDAFED 12 HOUR) 120 mg TbERTake 1 tablet by mouth every 12 hours as needed.Disp: 10 tabletRfl: 0 Prescriptions as of 07/13/2018 Sig: PALIPERIDONE ER 9 MG TABLET,E* Take 9 mg by mouth once daily. SODIUM CHLORIDE 0.65 % NASAL * Use 1 Gray in the nose as ne* PSEUDOEPHEDRINE ER [...] 0 07/13/2018 Route: NASAL Sig: Use 1 Gray in the nose as needed for Cold/Allergy Symptoms. PSEUDOEPHEDRINE ER 120 MG TABLET,EXT* 10 t* 0 07/13/2018 Route: ORAL Sig: Take 1 tablet by mouth every 12 hours as needed. Encounter Status:Closed by SOULEYMANE MCLAUGHLIN PA-C on 07/13/18 EMERGENCY DEPARTMENT Observed: 07/13/2018 Status: F Source: [place] SUMMARY 12:54 AM [facility] REPOSITORY [facility] Medical Records Department [address] [place] [address] Emergency Department Summary 07/13/18 0052 MR#: [id number] Acct: [id number] Name: ANGELICA ANDUJAR C Rep #: [id number] : 1980 37 From: Duncan Velásquez MD PCP: [facility] Status: PRE ER - ER Visit Summary Date of Service: 11/08/18 Chief Complaint: Cannot sleep History of Present [...] Impression: Insomnia This note was generated with Edictive dictation software. It may contain incorrect words, [...] your Primary Care Provider. Call [facility] ([phone]) or report to the closest Emergency Room. Call 911 if necessary. 07/13/18 0054 <Electronically signed by Duncan Velásquez MD> Date Duncan Velásquez MD Cosigner Signature (If Indicated): Date CC: [facility] PULMONARY VISIT REPORT Observed: 07/12/2018 Status: F Source: [place] 2:11 PM [facility] REPOSITORY [facility] [address] [place] [address] OFFICE VISIT Date of Service: 07/12/18 MR#: [id number] Acct: [id number] Name: ANGELICA ANDUJAR Rep #: [id number] : 1980 Provider: Hans Ramos MD Age/Sex: 37/F Location: [facility] Status: Signed Assessment AND Plan Problems 1. [...] female, currently under the care of the [facility], who presents as a new consultation secondary [...] SOAP Allergy (Uncoded 07/12/18 13:36) Hives 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 Allergy (Uncoded 07/12/18 13:36) Hives SEASONAL ALLERGIES [...] Cosigner Signature: Date (if applicable) CC: [facility] EMERGENCY DEPARTMENT Observed: 06/19/2018 Status: F Source: [place] SUMMARY 2:41 PM [facility] REPOSITORY [facility] Medical Records Department [address] [place] [address] Emergency Department Summary 06/19/18 0726 MR#: [id number] Acct: [id number] Name: ANGELICA ANDUJAR Rep #: [id number] : 1980 37 From: Blue Garcia MD [...] Acute psychosis This note was generated with Edictive dictation software. It may contain incorrect words, [...] your Primary Care Provider. Call [facility] ([phone]) or report to the closest Emergency Room. Call 911 if necessary. 06/19/18 0081 <Electronically signed by Blue Garcia MD> Date Blue Garcia MD Cosigner Signature (If Indicated): Date CC: [facility] CBC W/DIFF, AUTOMATED Collected: 06/19/2018 Status: F Source: [place] 8:35 AM [facility] REPOSITORY TYPE CODE TESTS RESULT OUT [...] Lymph 1.65 Performed By: #### L100.0100 #### [facility] [address] [place], [address] BASIC METABOLIC Collected: 06/19/2018 Status: F Source: [place] PROFILE (BMP) 8:35 AM [facility] REPOSITORY TYPE CODE TESTS RESULT OUT [...] GAP 8 Performed By: #### L500.2500 #### [facility] [address] [place], [place], [address] ,SERUM,HCG QUALI. Collected: Status: F Source: [place] 06/19/2018 8:35 AM [facility] REPOSITORY TYPE CODE TESTS RESULT OUT OF REFERENCE UNITS RANGE LAB L700.6700 =>Qualitative mIU/mL Normal HCG Qual < 1 triggr LAB L700.7000 0-9 Nonpreg Negative Normal HCGSQUAL NEGATIVE Performed By: #### L700.6800 #### [facility] [address] [facility] [address] [place], [place], [address] ALCOHOL, BLOOD Collected: 06/19/2018 Status: F Source: [place] (MEDICAL)-SERUM 8:35 AM [facility] REPOSITORY TYPE CODE TESTS RESULT OUT [...] fatal coma Performed By: #### L501.9100 #### [facility] [address] [place], [place], [address] URINE DRUG SCREEN Collected: 06/19/2018 Status: F Source: [place] (VISTA) 8:08 AM [facility] REPOSITORY TYPE CODE TESTS RESULT OUT [...] Normal NEGATIVE Performed By: #### L505.5000 #### [facility] [address] [place], [place], [address] EMERGENCY DEPARTMENT Observed: 06/18/2018 Status: F Source: [place] SUMMARY 3:20 PM [facility] REPOSITORY [facility] Medical Records Department [address] [place] [address] Emergency Department Summary 06/17/18 1634 MR#: [id number] Acct: [id number] Name: ANGELICA ANDUJAR Rep #: [id number] : 1980 37 From: Ganga Chambers DO PCP: [facility] Status: DEP ER - ER Visit Summary Date of Service: 06/17/18 Chief Complaint: [] History of Present Illness: The patient is a 37 F [anxiety presents the emergency department complaint of. 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 It may contain incorrect words, spelling, [...] your Primary Care Provider. Call [facility] ([phone]) or report to the closest Emergency Room. Call 911 if necessary. 06/18/18 1520 <Electronically signed by Ganga Chambers DO> Date Ganga Chambers DO Cosigner Signature (If Indicated): Date CC: [facility] DISCHARGE INSTRUCTION Observed: 06/17/2018 Status: F Source: [place] 7:43 PM [facility] REPOSITORY [facility] Medical Records Department [address] [place] [address] Discharge Instruction 06/17/181941 MR#: [id number] Acct: [id number] Name: ANGELICA ANDUJAR Rep #: [id number] : 1980 37 From: Ganga Chambers DO [...] your Primary Care Provider. Call [facility] ([phone]) or report to the closest Emergency Room. Call 911 if necessary. 06/17/181942 <Electronically signed by Ganga Chambers DO> Date Ganga Chambers DO Cosigner Signature (If Indicated): Date CC: [facility] DISCHARGE INSTRUCTION Observed: 06/17/2018 Status: F Source: [place] 7:42 PM [facility] REPOSITORY [facility] Medical Records Department [address] [place] [address] Discharge Instruction 06/17/181940 MR#: [id number] Acct: [id number] Name: CONKATHY Rep #: [id number] : 1980 37 From: Ganga Chambers DO [...] your Primary Care Provider. Call [facility] ([phone]) or report to the closest Emergency Room. Call 911 if necessary. 06/17/181941 <Electronically signed by Ganga Chambers DO> Date Ganga Chambers DO Cosignriccardo Signature (If Indicated): Date CC: [facility] EMERGENCY DEPARTMENT Observed: 06/17/2018 Status: F Source: [place] SUMMARY 6:21 PM [facility] REPOSITORY [facility] Medical Records Department [address] [place] [address] Emergency Department Summary 06/17/18 0947 MR#: [id number] Acct: [id number] Name: ANGELICA ANDUJAR Rep #: [id number] : 1980 37 From: Kasandra Cooper MD [facility] Status: DEP ER - ER Visit [...] Clarity Clear Urine pH 6.0 Ur Specific Rubicon 1.015 Emergency Department Course and Treatment: Patient's complaint of drinking hand soap is actually her drinking water out of freshly wash hands, and does not sound consistent with actual ingestion of hand soap. Patient was reassured that this is not dangerous. We discussed her insomnia, and I recommended she try Benadryl or another guzl-osl-ujdrybj antihistamine. She stated that she did not [...] unrelated complaints This note was generated with Edictive dictation software. It may contain incorrect words, [...] pain and headaches with your doctor. Use jezf-vzf-vrribci pain medication as needed for aches and [...] your Primary Care Provider. Call [facility] ([phone]) or report to the closest Emergency Room. Call 911 if necessary. 06/17/18 1821 <Electronically signed by Kasandra Cooper MD> Date Kasandra Cooper MD Cosigner Signature (If Indicated): Date CC: ASMANTHA BEJARANO DISCHARGE INSTRUCTION Observed: 06/17/2018 Status: F Source: [place] 5:52 PM [facility] REPOSITORY [facility] Medical Records Department [address] [place] [address] [place] [address] Discharge Instruction 06/17/18 1146 MR#: [id number] Acct: [id number] Name: ANGELICA ANDUJAR Rep #: [id number] : 1980 37 From: Kasandra Cooper MD PCP: SAMANTHA BEJARANO Status: [facility] ER ED Disposition - Plan for ED Patient: Disposition: Home or Assisted Living Chief Complaint: Abd Pain Instructions: ED Abdominal Pain Unkn Cause, ED Insomnia Referrals: Katharina Bejarano,Samantha Hood [Primary Care Provider] - As soon as possible Additional Instructions: Please follow-up with your doctor within the week to discuss your multiple complaints. Your urine was negative for infection. Please discuss your recurring neck pain and headaches with your doctor. Use oelj-qaa-kcbjywe pain medication as needed for aches and [...] your Primary Care Provider. Call [facility] ([phone]) or report to the closest Emergency Room. Call 911 if necessary. 06/17/18 1752 <Electronically signed by Kasandra Cooper MD> Date Kasandra Cooper MD Cosigner Signature (If Indicated): Date CC: [facility] CBC W/DIFF, AUTOMATED Collected: 06/17/2018 Status: F Source: [place] 5:30 PM [facility] REPOSITORY TYPE CODE TESTS RESULT OUT [...] Lymph 2.16 Performed By: #### L100.0100 #### [facility] [address] [facility] [place], [place], [address] BASIC METABOLIC Collected: 06/17/2018 Status: F Source: [place] PROFILE (BMP) 5:30 PM [facility] REPOSITORY TYPE CODE TESTS RESULT OUT [...] GAP 6 Performed By: #### L500.2500 #### [facility] [address] [place] [place], [address] ALCOHOL, BLOOD Collected: 06/17/2018 Status: F Source: [place] (MEDICAL)-SERUM 5:30 PM [facility] TYPE CODE TESTS RESULT [...] fatal coma Performed By: #### L501.9100 #### [facility] [address] [facility] [place], [address] ,SERUM,HCG QUALI. Collected: Status: F Source: [place] 06/17/2018 5:30 PM [facility] REPOSITORY TYPE CODE TESTS RESULT OUT OF REFERENCE UNITS RANGE LAB L700.6700 =>Qualitative mIU/mL Normal HCG Qual < 1 triggr LAB L700.7000 0-9 Nonpreg Negative Normal HCGSQUAL NEGATIVE Performed By: #### L700.6800 #### [facility] [address] [facility] [place], [address] URINE DRUG SCREEN Collected: 06/17/2018 Status: F Source: [place] (VISTA) 5:00 PM [facility] REPOSITORY TYPE CODE TESTS RESULT OUT [...] Normal NEGATIVE Performed By: #### L505.5000 #### [facility] [address] [place], [address] URINALYSIS, COMPLETE Collected: 06/17/2018 Status: F Source: [place] 9:55 AM [facility] REPOSITORY Order Comment: Order Date: 06/17/18 Has pt arrived? Y Order Date: 06/17/18 Has pt arrived? Y How was Urine Obtained? MEDIA LIAISON OFFICER TO SPECIFY TYPE CODE TESTS RESULT OUT [...] SEEN Performed By: #### L400.0001, L400.7600 #### [facility] [address] [place], [address] ,URINE Collected: 06/17/2018 Status: F Source: [place] 9:55 AM [facility] REPOSITORY Order Comment: Order Date: 06/17/18 Has pt arrived? Y Order Date: 06/17/18 Has pt arrived? Y How was Urine Obtained? MEDIA LIAISON OFFICER TO SPECIFY TYPE CODE TESTS RESULT OUT OF REFERENCE UNITS RANGE LAB L400.8000 Negative Normal HCGUQUAL Negative Result Comment: Very dilute urine specimens, as indicated by a low specific gravity, may not contain tour sales representative levels of hCG. If is still suspected, a first morning urine specimen should be collected 48 hours later and tested. Performed By: #### L400.0001, L400.7600 #### [facility] [address] [place] [place], [address] Observed: 06/17/2018 Status: F Source: [place] CULTURE, URINE 9:55 AM [facility] REPOSITORY Order Date: 06/17/18 Has pt arrived? Y Urine Culture Culture exhibits no growth. Performed By: #### M100.0650 #### [facility] [address] [place], [address] 12 LEAD ELECTROCARDIOGRAM Observed: 06/15/2018 Status: F Source: [place] 1:36 PM [facility] REPOSITORY [facility] Cardiovascular Services [address] [place] [address] 12 Lead EKG 06/12/18 2143 MR#: [id number] Acct: [id number] Name: ANGELICA ANDUJAR Rep #: [id number] : 1980 37 From: Duncan Rubi MD [...] rhythm Normal ECG Confirmed by CORY KHAN, DUNCAN ([id number]), production editor МАРИНА BRAR ([id number]) on 06/15/2018 1:36:03 PM Referred By: JESIKA Confirmed By:DUNCAN RUBI MD 06/15/18 1336 Date Duncan Rubi MD CC: Ganga Chambers ; [facility] Signed Observed: 06/14/2018 Status: F Source: [place] THROAT CULT/ROUTINE 2:30 PM [facility] REPOSITORY Sp. Request/Comment: - Swab Culture Result - No beta hemolytic streptococci isolated. Performed By: #### THRCUL #### [facility] [address] [place], [place] [address] PROGRESS Observed: 06/14/2018 Status: COMPLETED Source: [place] 1:01 PM [facility] REPOSITORY HNO ID: [id number] Author: Chayito ([facility]) Podlogar Service: (none) Author Type: Nurse Practitioner [...] Doxycycline; Dust Mites; Flagyl [Metronidazole Hcl]; Hand Ends Down Checker [Ethyl Alcohol (Skin Cleanser)]; Iodine; Lactose Intolerance [Lactase]; Latex, Natural Rubber; [place]; Meloxicam; Metronidazole; Mold; Morphine; Penicillin; Pet Dander [...] at home she was given at a [place] [place] care- - discussed watchful waiting for a [...] or sooner if worsening of symptoms Chayito Tan APRN.LAURETN Prescription instructions reviewed with patient as applicable. Patient advised if symptoms do not improve or if symptoms worsen sooner, to contact their primary care physician. Potential red flag symptoms discussed with the patient. Reviewed appropriate action plan to take if red flag symptoms occur. Patient agreeable to treatment plan. CNOV Observed: 06/14/2018 Status: COMPLETED Source: [place] 1:00 PM [facility] REPOSITORY Office Visit (FAMPWS) ANGELICA ANDUJAR ([id number]) 1980 F Date Time Provider Department 06/14/18 1:00 PM CHAYITO TAN (LAURENT) FAMPWS During your visit today, we recorded the [...] Doxycycline; Dust Mites; Flagyl [Metronidazole Hcl]; Hand Ends Down Checker [Ethyl Alcohol (Skin Cleanser)]; Iodine; Lactose Intolerance [Lactase]; Latex, Natural Rubber; [place]; Meloxicam; Metronidazole; Mold; Morphine; Penicillin; Pet Dander [...] at home she was given at a [place] care- - discussed watchful waiting for a [...] sooner if worsening of symptoms Chayito Podlogar, MD ALLERGY IMMUNOLOGY.DISTRIBUTION CENTER ASSISTANT Prescription instructions reviewed with patient as applicable. Patient advised if symptoms do not improve or if symptoms worsen sooner, to contact their primary care physician. Potential red flag symptoms discussed with the patient. Reviewed appropriate action plan to take if red flag symptoms occur. Patient agreeable to treatment plan. Chayito Cadelogar, MD ALLERGY IMMUNOLOGY.DISTRIBUTION CENTER ASSISTANT 06/14/2018 1:47 PM Signed If you develop [...] (METRONIDAZOLE HCL) 06/20/2012 4 - Hives 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 (ETHYL ALCOHOL (SK*11/04/2009 2 - Rash Comments: PT HAS SENSITIVE SKIN. O.K. FOR MEDICAL PROFESSIONAL TO USE 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 AND THEN TOUCH HER, BUT SHE HERSELF DOES NOT USE IT. IODINE 02/18/2011 2 - Rash LACTOSE INTOLERANCE (LACTASE) 11/04/2009 LATEX, NATURAL RUBBER 03/17/2018 2 - Rash [place] 12/07/2017 10 - Anaphylaxis MELOXICAM 06/12/2018 16 [...] and constipation Date Reviewed: 06/14/2018 Reviewed by: Layc Caicedo ([facility]) GABRIELLA Wilder - Fully Assessed Reason for Visit: Sinus Problem [99] Cmt: 6 days now,, chills no fever .Fatigue. headaches and pressure. Primary Visit Diagnosis:Sore throat [J02.9] Other Visit Diagnoses:Sinus pressure [J34.89] URI, acute [J06.9] Order(s):RAPID STREP TEST B/O [3478747] Order #: [id number] THROAT CULTURE [SQTHRCUL] Order #: [id number] Prescriptions as of 06/14/2018 Sig: TYLENOL ORAL [...] Letter Text Department of Internal Medicine [address] [address] 06/14/2018 Angelica Andujar CCF# [id number] [address] [place] [address] TO WHOM IT MAY CONCERN: This is to certify that Ms. Angelica Andujar has been under my care for illness and was unable to work today on 06/14/2018. Sincerely yours, Chayito Tan APRN.CNP Encounter Status:Closed by CHAYITO TAN CNP on 06/14/18 URGENT CARE VISIT Observed: 06/13/2018 Status: F Source: [place] REPORT 1:28 PM [facility] REPOSITORY [facility] [address] [place] [address] OFFICE VISIT Date of Service: 06/13/18 MR#: [id number] Acct: [id number] Name: ANGELCIA ANDUJAR Rep #: [id number] : 1980 Provider: Vik CARRILLO Age/Sex: 37/F Location: [facility] Status: Signed Intake Vital Signs06/13/18 Height 5 ft 7 in 06/13/18 Weight: 183 lb 06/13/18 Body Mass Index (BMI) 28.6 06/13/18 Blood Pressure 126/82 H Intake Visit Reasons: SINUS ISSUES, TROUBLE SLEEPING Turn Down Attendant Required: No Accompanied by: SELF Is patient [...] SOAP Allergy (Uncoded 06/13/18 13:08) Hives 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 Allergy (Uncoded 06/13/18 13:08) Hives SEASONAL ALLERGIES [...] 06/13/2018 Status: F Source: [place] 12:05 AM [facility] REPOSITORY [facility] Medical Records Department [address] [place] [address] [place] [address] Discharge Instruction 06/13/18 0003 MR#: [id number] Acct: [id number] Name: ANGELICA ANDUJAR #: [id number] : 1980 37 From: Ganga Chambers DO [...] your Primary Care Provider. Call [facility] ([phone]) or report to the closest Emergency Room. Call 911 if necessary. 06/13/18 0005 <Electronically signed by Ganga Chambers DO> Date Ganga Chambers DO Cosigner Signature (If Indicated): Date CC: SAMANTHA BEJARANO EMERGENCY DEPARTMENT Observed: 06/13/2018 Status: F Source: [place] SUMMARY 12:03 AM [facility] REPOSITORY [facility] Medical Records Department [address] [place] [address] Emergency Department Summary 06/13/18 0000 MR#: [id number] Acct: [id number] Name: ANGELICA ANDUJAR Rep #: [id number] : 1980 37 From: Ganga Chambers DO [...] wall pain] This note was generated with Edictive dictation software. It may contain incorrect words, [...] your Primary Care Provider. Call [facility] ([phone]) or report to the closest Emergency Room. Call 911 if necessary. 06/13/18 0003 <Electronically signed by Ganga Chambers DO> Date Remus Ungur DO Cosigner Signature (If Indicated): Date CC: [facility] CBC W/DIFF, AUTOMATED Collected: 06/12/2018 Status: F Source: [place] 10:44 PM [facility] REPOSITORY TYPE CODE TESTS RESULT OUT [...] C+C Performed By: #### L100.0100, L101.9900 #### [facility] [address] [place], [place], [address] ERYTHROCYTE SED RATE Collected: 06/12/2018 Status: F Source: [place] 10:44 PM [facility] REPOSITORY TYPE CODE TESTS RESULT OUT OF RANGE REFERENCE UNITS LAB L102.0000 0-20 mm/hr Normal SED RATE 8 Performed By: #### L100.0100, L101.9900 #### [facility] [address] [place], [place], [address] D-DIMER QUANTITATIVE Collected: 06/12/2018 Status: F Source: [place] (DVT/PE) 10:44 PM [facility] REPOSITORY TYPE CODE TESTS RESULT OUT OF RANGE REFERENCE UNITS LAB L300.8000 0.27-0.49 FEU/ug/m Normal D-DIMER 0.29 QUANT Result Comment: NORMAL D-Dimer level (<0.50) indicates no DVT or PE. Performed By: #### L300.8000 #### [facility] [address] [place], [place], [address] BASIC METABOLIC Collected: 06/12/2018 Status: F Source: [place] PROFILE (BMP) 10:44 PM [facility] REPOSITORY TYPE CODE TESTS RESULT OUT [...] 7 Performed By: #### L500.2500, L501.4010 #### [facility] [address] [place], [address] TROPONIN-I Collected: 06/12/2018 Status: F Source: [place] 10:44 PM [facility] REPOSITORY TYPE CODE TESTS RESULT OUT OF RANGE REFERENCE UNITS LAB L501.4010 <0.045 ng/mL Normal < 0.015 TROPONIN-I Result Comment: TROPONIN-I EXPECTED VALUES <0.045 Negative 0.045 - 0.590 Consistent with Cardiac Damage > OR = 0.600 Critical Value Not every elevated troponin is indicative of [place]. These values should be used with clinical judgement in examining the patient's clinical picture for diagnosis. To establish a diagnosis of [place] versus myocardial injury, there must be a demonstrated rise and/or fall in the troponin values, in addition to ischemic symptoms, EKG changes, new regional wall motion abnormality, and/or angiographical evidence. PLEASE NOTE: REFERENCE RANGES EDITED 18 Performed By: #### L500.2500, L501.4010 #### [facility] [address] [place], [address] CHEST 1 VIEW Observed: 06/12/2018 Status: F Source: [place] (PORTABLE) 10:31 PM [facility] REPOSITORY [facility] Imaging Services [address] [place] [address] Chest 1 View (Portable) MR#: [id number] Acct: [id number] Name: ANGELICA ANDUJAR Rep #: [id number] : 1980 F 37 From: Ayleen Edwards MD PCP: [facility] Status: PRE ER Study: Chest 1 View (Portable) Date of Exam: 06/12/18 Exam# [id number] Ordering Dr: Ganga Chambers DO STUDY: X-RAY [...] Tel , Service support , CC: Ganga Chambers DO; [facility] [employer]en Suiting Shrinker: Signed 12 LEAD ELECTROCARDIOGRAM Observed: 06/12/2018 Status: F Source: [place] 2:38 PM [facility] REPOSITORY [facility] Cardiovascular Services [address] [place] [address] [id number] 12 Lead EKG 06/08/182035 MR#: [id number] Acct: [id number] Name: ANGELICA ANDUJAR Rep #: [id number] : 1980 37 From: Vidal eLpe MD Attending Dr: Status: DEP ER Ordering [...] ECG Confirmed by VIDAL LEPE MD ([id number]), production editor МАРИНА BRAR ([id number]) on 06/12/2018 2:37:59 PM Referred By: Mallorie Alexis Confirmed By:VIDAL LEPE MD 06/12/18 1438 Date Vidal Lepe MD CC: Juana Christopher MD; Mallorie DE LA TORRE; [facility] Signed PROGRESS Observed: 06/12/2018 Status: COMPLETED Source: [place] 12:16 PM [facility] REPOSITORY HNO ID: [id number] Author: Ian Ying Service: (none) Author Type: [...] cockroaches - Flagyl [Metronidazo* Hives - Hand Ends Down Checker [Eth* Rash PT HAS SENSITIVE SKIN. O.K. FOR MEDICAL PROFESSIONAL TO USE 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 AND THEN TOUCH HER, BUT SHE HERSELF DOES NOT USE IT. - Iodine Rash - Lactose Intolerance* - Latex, Natural Rubb* Rash - [place] Anaphylaxis - Meloxicam Unknown - Metronidazole Hives [...] MD CNOV Observed: 06/12/2018 Status: COMPLETED Source: [place] 11:45 AM [facility] REPOSITORY Office Visit ([facility] ANGELICA ANDUJAR ([id number]) 1980 F Date Time Provider Department 06/12/18 11:45 AM IAN YING [facility] During your visit today, we recorded the [...] cockroaches - Flagyl [Metronidazo* Hives - Hand Ends Down Checker [Eth* Rash PT HAS SENSITIVE SKIN. O.K. FOR MEDICAL PROFESSIONAL TO USE 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 AND THEN TOUCH HER, BUT SHE HERSELF DOES NOT USE IT. - Iodine Rash - Lactose Intolerance* - Latex, Natural Rubb* Rash - [place] Anaphylaxis - Meloxicam Unknown - Metronidazole Hives [...] (METRONIDAZOLE HCL) 06/20/2012 4 - Hives 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 (ETHYL ALCOHOL (SK*11/04/2009 2 - Rash Comments: PT HAS SENSITIVE SKIN. O.K. FOR MEDICAL PROFESSIONAL TO USE 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 AND THEN TOUCH HER, BUT SHE HERSELF DOES NOT USE IT. IODINE 02/18/2011 2 - Rash LACTOSE INTOLERANCE (LACTASE) 11/04/2009 LATEX, NATURAL RUBBER 03/17/2018 2 - Rash [place] 12/07/2017 10 - Anaphylaxis MELOXICAM 06/12/2018 16 [...] rhinitis [J30.9] INVALID FOR* Letter Text . [facility] [address] [place], [place] [address] 06/12/2018 Angelica Andujar F# [id number] [address] [place] [address] TO WHOM IT MAY CONCERN: This is to confirm that Angelica Andujar had an appointment and was seen at the [facility] in the Department of Urgent Care by Ian Ying MD on 06/12/2018 for illness. Sincerely , Ian Ying MD Encounter Status:Closed by IAN YING MD on 06/12/18 EMERGENCY DEPARTMENT Observed: 06/10/2018 Status: F Source: [place] SUMMARY 4:01 PM [facility] REPOSITORY [facility] Medical Records Department [address] [place] [address] Emergency Department Summary 06/10/18 1118 MR#: [id number] Acct: [id number] Name: ANGELICA ANDUJAR Rep #: [id number] : 1980 37 From: Elvi Wick MD PCP: [facility] Status: DEP ER - ER Visit [...] outpatient providers but she went to the [facility] urgent care who she indicates refused [...] hypokalemia 3.4 This note was generated with Edictive dictation software. It may contain incorrect words, spelling, and punctuation that were not noted in review of the chart prior to signing ED Disposition - Plan for ED Patient: Chief Complaint: General Illness Referrals: [facility] Loraine,Samantha Hood [Primary Care Provider] - What to do if you have Problems For any increased pain, shortness of breath, bleeding, nausea or vomiting, chest pain, or any unexpected problems, contact your Primary Care Provider. Call [facility] ([phone]) or report to the closest Emergency Room. Call 911 if necessary. 06/10/18 1601 <Electronically signed by Elvi Wick MD> Date Elvi Wick MD Cosigner Signature (If Indicated): Date CC: SAMANTHA MENON [facility] DISCHARGE INSTRUCTION Observed: 06/10/2018 Status: F Source: [place] 11:49 AM [facility] REPOSITORY [facility] Medical Records Department [address] [place] [address] Discharge Instruction 06/10/18 1148 MR#: [id number] Acct: [id number] Name: ANGELICA ANDUJAR Rep #: [id number] : 1980 37 From: Elvi Wick MD PCP: SAMANTHA BEJARANO Status: REG ER ED Disposition - Plan for ED Patient: Chief Complaint: General Illness Instructions: ED Weakness UKO Referrals: Katharina Bejarano,Samantha Hood [Primary Care Provider] - What to do if you have Problems For any increased pain, shortness of breath, bleeding, nausea or vomiting, chest pain, or any unexpected problems, contact your Primary Care Provider. Call [facility] ([phone]) or report to the closest Emergency Room. Call 911 if necessary. 06/10/18 1149 <Electronically signed by Elvi Wick MD> Date Elvi Wick MD Cosigner Signature (If Indicated): Date CC: SAMANTHA BEJARANO BASIC METABOLIC Collected: 06/10/2018 Status: F Source: [place] PROFILE (BMP) 11:20 AM [facility] REPOSITORY TYPE CODE TESTS RESULT OUT [...] GAP 8 Performed By: #### L500.2500 #### [facility] [address] [facility] [place], [address] PROGRESS Observed: 06/10/2018 Status: COMPLETED Source: [place] 9:46 AM [facility] REPOSITORY [facility] ID: [id number] Author: Lennox Belcher Service: (none) Author Type: Physician Bilingual Social Worker Type: Progress Notes Filed: 06/10/2018 10:49 AM [...] Doxycycline; Dust Mites; Flagyl [Metronidazole Hcl]; Hand Ends Down Checker [Ethyl Alcohol (Skin Cleanser)]; Iodine; Lactose Intolerance [Lactase]; Latex, Natural Rubber; [place]; Metronidazole; Mold; Morphine; Penicillin; Pet Dander [Other]; [...] PA-C CNOV Observed: 06/10/2018 Status: COMPLETED Source: [place] 9:45 AM [facility] REPOSITORY Office Visit ([facility]STR) ANGELICA ANDUJAR ([id number]) 1980 F Date Time Provider Department 06/10/18 9:45 AM LENNOX BELCHER) WSTR During your visit today, we recorded [...] Doxycycline; Dust Mites; Flagyl [Metronidazole Hcl]; Hand Ends Down Checker [Ethyl Alcohol (Skin Cleanser)]; Iodine; Lactose Intolerance [Lactase]; Latex, Natural Rubber; [place]; Metronidazole; Mold; Morphine; Penicillin; Pet Dander [Other]; [...] (METRONIDAZOLE HCL) 06/20/2012 4 - Hives 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 (ETHYL ALCOHOL (SK*11/04/2009 2 - Rash Comments: PT HAS SENSITIVE SKIN. O.K. FOR MEDICAL PROFESSIONAL TO USE 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 AND THEN TOUCH HER, BUT SHE HERSELF DOES NOT USE IT. IODINE 02/18/2011 2 - Rash LACTOSE INTOLERANCE (LACTASE) 11/04/2009 LATEX, NATURAL RUBBER 03/17/2018 2 - Rash [place] 12/07/2017 10 - Anaphylaxis METRONIDAZOLE 04/11/2018 4 [...] Text Lennox Belcher PA-C Urgent Care [address] [facility] [address] Dept: [phone] 06/10/2018 Kathy Baker [address] [address] To Whom it May Concern: This is to certify that Angelica Andujar was seen at our office for medical care. If you have any questions please feel free to call. Sincerely: Lennox Belcher PA-C Encounter Status:Closed by LENNOX BELCHER PA-C on 06/10/18 EMERGENCY DEPARTMENT Observed: 06/08/2018 Status: F Source: [place] SUMMARY 11:38 PM [facility] REPOSITORY [facility] Medical Records Department [address] [place] [address] Emergency Department Summary 06/08/18 2156 MR#: [id number] Acct: [id number] Name: ANGELICA ANDUJAR Rep #: [id number] : 1980 37 From: Juana Christopher MD PCP: [facility] Status: DEP ER - ER Visit [...] Lightheadedness, improved This note was generated with Edictive dictation software. It may contain incorrect words, [...] problems, contact your Primary Care Provider. Call [facility] ([phone]) or report to the closest Emergency Room. Call 911 if necessary. 06/08/182337 <Electronically signed by Juana Christopher MD> Date Juana Christophre MD Cosigner Signature (If Indicated): Date CC: SAMANTHA BEJARANO DISCHARGE INSTRUCTION Observed: 06/08/2018 Status: F Source: [place] 9:58 PM [facility] REPOSITORY [facility] Medical Records Department [address] [place] [address] Discharge Instruction 06/08/182157 MR#: [id number] Acct: [id number] Name: ANGELICA ANDUJAR Rep #: [id number] : 1980 37 From: Juana Christopher MD [...] your Primary Care Provider. Call [facility] ([phone]) or report to the closest Emergency Room. Call 911 if necessary. 06/08/182157 <Electronically signed by Juana Christopher MD> Date Juana Christopher MD Cosigner Signature (If Indicated): Date CC: [facility] CBC W/DIFF, AUTOMATED Collected: 06/08/2018 Status: F Source: [place] 8:34 PM [facility] REPOSITORY TYPE CODE TESTS RESULT OUT [...] Lymph 2.27 Performed By: #### L100.0100 #### [facility] [address] [place], [address] BASIC METABOLIC Collected: 06/08/2018 Status: F Source: [place] PROFILE (BMP) 8:34 PM [facility] REPOSITORY TYPE CODE TESTS RESULT OUT [...] GAP 7 Performed By: #### L500.2500 #### [facility] [address] [facility] [place], [place], [id number] ,SERUM,HCG QUALI. Collected: Status: F Source: [place] 06/08/2018 8:34 PM [facility] REPOSITORY TYPE CODE TESTS RESULT OUT OF REFERENCE UNITS RANGE LAB L700.6700 =>Qualitative mIU/mL Normal HCG Qual < 1 triggr LAB L700.7000 0-9 Nonpreg Negative Normal HCGSQUAL NEGATIVE Performed By: #### L700.6800 #### [facility] [address] [facility] [place], [place], [address] URINALYSIS, COMPLETE Collected: 06/08/2018 Status: F Source: [place] 8:05 PM [facility] REPOSITORY Order Comment: Order Date: 06/08/18 How was Urine Obtained? CLEAN CATCH TYPE [...] URINE SEEN Performed By: #### L400.0001 #### [facility] [address] [place], [address] SYPHILIS IGG WITH Collected: 06/01/2018 Status: F Source: [facility] 12:10 PM [facility] [place] REPOSITORY TYPE CODE TESTS RESULT OUT OF REFERENCE UNITS RANGE LAB SYPHQL Nonreactive Syphilis IgG, Nonreactive Qual Result Comment: No serological evidence of infection with T. pallidum. LAB SYPHLG AI Syphilis IgG <0.2 Result Comment: Antibody index is interpreted as follows: Non reactive SPECIMENS <=0.8 Weak reactive SPECIMENS 0.9 to 5.9 Reactive SPECIMENS >=6.0 Performed By: #### SYPHGX, HBSAG, HIV12C, HCQPCR #### [facility] [address] [place], [place] [address] HEPATITIS B SURF. AG Collected: 06/01/2018 Status: F Source: [place] 12:10 PM [facility] [place] REPOSITORY TYPE CODE TESTS RESULT OUT OF REFERENCE UNITS RANGE LAB HBSAG Negative Hepatitis B Negative Surf. Ag Performed By: #### SYPHGX, HBSAG, HIV12C, HCQPCR #### [place] [address] [place] [address] HIV 12 COMBO (AG/AB) Collected: 06/01/2018 Status: F Source: [place] 12:10 PM [facility] REPOSITORY TYPE CODE TESTS RESULT OUT OF REFERENCE UNITS RANGE LAB HVAGAB Non Reactive HIV Non Reactive 12 Ag/Ab Result Comment: (NOTE) HIV Information: [place] Rev. Code 3701.243(E): This information has been [...] By: #### SYPHGX, HBSAG, HIV12C, HCQPCR #### [place] [address] HEPATITIS C RNA Collected: 06/01/2018 Status: F Source: [place] 12:10 [facility] REPOSITORY TYPE CODE TESTS RESULT OUT OF REFERENCE UNITS RANGE LAB HCQPCR IU/mL Hepatitis C RNA HCV RNA not detected by PCR. Result Comment: Reference Range: Negative for HCV RNA The Linear Range of this assay is 15 IU/mL to 100,000,000 IU/mL. Performed By: #### SYPHGX, HBSAG, HIV12C, HCQPCR #### [place] [address] [place] [address] PROGRESS Observed: 05/25/2018 Status: COMPLETED Source: [place] 7:02 PM [facility] REPOSITORY HNO ID: [id number] Author: Souleymane Mclaughlin (Pa) Service: (none) Author Type: Physician Bilingual Social Worker Type: Progress Notes Filed: 05/25/2018 7:21 PM [...] PATHOGENS DNA Collected: 05/25/2018 Status: F Source: [place] 6:58 PM [facility] REPOSITORY TYPE CODE TESTS RESULT OUT [...] DNA Probe Performed By: #### VAGDNA #### [facility] [employer] [address] [place] [id number] Observed: 05/25/2018 Status: F Source: [place] URINE CULTURE 6:58 PM [facility] REPOSITORY Sp. Request/Comment: - Specimen received in preservative Culture Result - <10,000 CFU/ml Normal urogenital keisha Performed By: #### URCUL #### [facility] [employer] [address] [place], [place] [address] GC/CHLAMYDIA AMPLIF Collected: 05/25/2018 Status: F Source: [place] 6:58 PM [facility] REPOSITORY TYPE CODE TESTS RESULT OUT OF REFERENCE UNITS RANGE LAB GCCTSR GC/Chlam Amp [facility] LAB GCAMPL GC Negative Amplification for Neisseria gonorrhoeae by amplification. LAB CLAMPL Chlamydia Negative Amplif for Chlamydia trachomatis by amplification. 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 O.K. FOR MEDICAL PROFESSIONAL TO USE 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 AND THEN TOUCH HER, BUT SHE HERSELF DOES NOT USE IT. IODINE 02/18/2011 2 - Rash LACTOSE INTOLERANCE (LACTASE) 11/04/2009 LATEX, NATURAL RUBBER 03/17/2018 2 - Rash [place] 12/07/2017 10 - Anaphylaxis METRONIDAZOLE 04/11/2018 4 [...] Visit Diagnosis:Dysuria [R30.0] Order(s):UA DIP, URINE (POC) [3477855] Order #: [id number] #[id number] [id number] CULTURE [SQURCUL] Order #: [id number] VAGINAL PATHOGENS DNA PROBES [SQVAGDNA] Order #: [id number] GC/CHLAMYDIA DNA DET [SQGCCAMP] Order #: [id number] Prescriptions as of 05/25/2018 Sig: NYSTATIN 100,000 [...] LEAD ELECTROCARDIOGRAM Observed: 05/16/2018 Status: F Source: [place] 1:31 PM [facility] Cardiovascular Services [address] [place] [address] 12 Lead EKG 05/14/18 1302 MR#: [id number] Acct: [id number] Name: ANGELICA ANDUJAR Rep #: [id number] : 1980 37 From: Vidal Lepe MD [...] Normal sinus rhythm Normal ECG Confirmed by GABRIEL KHAN, VIDAL ([id number]), production editor МАРИНА BRAR ([id number]) on 05/16/2018 1:31:40 PM Referred By: STEPHANIE Confirmed By:VIDAL LEPE MD 05/16/18 1331 Date Vidal Lepe MD CC: Stephan Witt MD; SAMANTHA BEJARANO Signed EMERGENCY DEPARTMENT Observed: 05/14/2018 Status: F Source: [place] SUMMARY 5:54 PM [facility] Medical Records Department [address] [place] [address] Emergency Department Summary 05/14/18 1747 MR#: [id number] Acct: [id number] Name: ANGELICA ANDUJAR Rep #: [id number] : 1980 37 From: Ho Kathleen DO PCP: SAMANTHA BEJARANO Status: REG ER - ER Visit Summary Date of Service: 05/14/18 Chief Complaint: [] History of Present Illness: The patient is a 37 F [] Physical Examination: [] Test Results: [] Emergency Department Course and Treatment: [] Treatment Plan: [] Disposition: [] Impression: [] This note was generated with Dragon dictation software. It may contain incorrect words, [...] your Primary Care Provider. Call [facility] ([phone]) or report to the closest Emergency Room. Call 911 if necessary. 05/14/18 1754 <Electronically signed by Ho Kathleen DO> Date Ho Kathleen DO Cosigner Signature (If Indicated): Date CC: SAMANTHA BEJARANO EMERGENCY DEPARTMENT Observed: 05/14/2018 Status: F Source: [place] SUMMARY 4:04 PM [facility] REPOSITORY [facility] Medical Records Department [address] [facility] [place] [address] Emergency Department Summary 05/14/18 1537 MR#: [id number] Acct: [id number] Name: ANGELICA ANDUJAR Rep #: [id number] : 1980 37 From: Stephan Witt MD [...] 2. Psychosis This note was generated with Edictive dictation software. It may contain incorrect words, spelling, and punctuation that were not noted in review of the chart prior to signing ED Disposition - Plan for ED Patient: Chief Complaint: Flank Pain Referrals: [facility] Loraine,Samantha Hood [Primary Care Provider] - What to do if you have Problems For any increased pain, shortness of breath, bleeding, nausea or vomiting, chest pain, or any unexpected problems, contact your Primary Care Provider. Call [facility] ([phone]) or report to the closest Emergency Room. Call 911 if necessary. 05/14/18 4779 <Electronically signed by Stephan Witt MD> Date Stephan Witt MD Cosigner Signature (If Indicated): Date CC: [facility] CBC W/DIFF, AUTOMATED Collected: 05/14/2018 Status: F Source: [place] 1:10 PM [facility] REPOSITORY TYPE CODE TESTS RESULT OUT [...] Lymph 1.37 Performed By: #### L100.0100 #### [facility] [address] [place], [id number] COMPREHENSIVE METABOLIC Collected: 05/14/2018 Status: F Source: [place] GALDAMEZ 1:10 PM [facility] REPOSITORY TYPE CODE TESTS RESULT OUT [...] Performed By: #### L500.4050, L501.2450, L501.4010 #### [facility] [address] [place], [address] LIPASE Collected: 05/14/2018 Status: F Source: [place] 1:10 PM [facility] REPOSITORY TYPE CODE TESTS RESULT OUT OF RANGE REFERENCE UNITS LAB L501.2450 73-393 U/L Normal LIPASE 102 Performed By: #### L500.4050, L501.2450, L501.4010 #### [facility] [address] [place], [address] TROPONIN-I Collected: 05/14/2018 Status: F Source: [place] 1:10 PM [facility] REPOSITORY TYPE CODE TESTS RESULT OUT OF RANGE REFERENCE UNITS LAB L501.4010 <0.045 ng/mL Normal < 0.015 TROPONIN-I Result Comment: TROPONIN-I EXPECTED VALUES <0.045 Negative 0.045 - 0.590 Consistent with Cardiac Damage > OR = 0.600 Critical Value Not every elevated troponin is indicative of [place]. These values should be used with clinical judgement in examining the patient's clinical picture for diagnosis. To establish a diagnosis of [place] versus myocardial injury, there must be a demonstrated rise and/or fall in the troponin values, in addition to ischemic symptoms, EKG changes, new regional wall motion abnormality, and/or angiographical evidence. PLEASE NOTE: REFERENCE RANGES EDITED 18 Performed By: #### L500.4050, L501.2450, L501.4010 #### [facility] [address] [facility] [place], [address] ,SERUM,HCG QUALI. Collected: Status: F Source: [place] 05/14/2018 1:10 PM [facility] REPOSITORY TYPE CODE TESTS RESULT OUT OF REFERENCE UNITS RANGE LAB L700.7000 0-9 Nonpreg Negative Normal HCGSQUAL NEGATIVE LAB L700.6700 =>Qualitative mIU/mL Normal HCG Qual < 1 triggr Performed By: #### L700.6800 #### [facility] [address] [place], [address] ALCOHOL, BLOOD Collected: 05/14/2018 Status: F Source: [place] (MEDICAL)-SERUM 1:10 PM [facility] REPOSITORY TYPE CODE TESTS RESULT OUT [...] fatal coma Performed By: #### L501.9100 #### [facility] [address] [place], [place], [address] URINE DRUG SCREEN Collected: 05/14/2018 Status: F Source: [place] (VISTA) 1:00 PM [facility] REPOSITORY TYPE CODE TESTS RESULT OUT [...] Normal NEGATIVE Performed By: #### L505.5000 #### [facility] [address] [place], [place], [address] URINALYSIS, COMPLETE Collected: 05/14/2018 Status: F Source: [place] 1:00 PM [facility] REPOSITORY Order Comment: Order Date: 05/14/18 COLOR [...] URINE SEEN Performed By: #### L400.0001 #### [facility] [address] [place], [address] ABDOMEN/PELVIS W IV CONT Observed: 05/14/2018 Status: F Source: [place] ONLY 12:34 PM [facility] REPOSITORY [facility] Imaging Services [address] [place] [address] Abdomen/Pelvis W IV Cont ONLY MR#: [id number] Acct: [id number] Name: ANGELICA ANDUJAR Rep #: [id number] : 1980 F 37 From: Karson Vieira MD PCP: [facility] Status: REG ER Study: Abdomen/Pelvis W IV Cont ONLY Date of Exam: 05/14/18 Exam# [id number] Ordering Dr: Stephan Witt MD ADDENDUM by Karson Vieira MD on 05/14/[address]/Abdomen/Pelvis W IV Cont ONLY 05/14/18 1730 Date cc: Stephan Witt MD; [facility] * Signed ADDENDUM by Karson Vieira MD on 05/14/18 at 1723 ADDENDUM Correction: The study was performed with intravenous contrast. 100 cc of Isovue-300 was administered. Electronically Signed: Karson Vieira, at 17:23 EDT Tel , Service support , 05/14/18 1723 Date cc: Stephan Witt MD; [facility] * Signed STUDY: CT ABDOMEN AND PELVIS [...] , CC: Stephan Witt MD; SAMANTHA BEJARANO [employer]inker: Signed EMERGENCY DEPARTMENT Observed: 05/13/2018 Status: F Source: [place] SUMMARY 12:28 AM [facility] REPOSITORY [facility] Medical Records Department [address] [place] [address] Emergency Department Summary 05/12/18 1549 MR#: [id number] Acct: [id number] Name: ANGELICA ANDUJAR Rep #: [id number] : 1980 37 From: Main Bledsoe MD [...] clinical dehydration This note was generated with Edictive dictation software. It may contain incorrect words, [...] problems, contact your Primary Care Provider. Call [facility] ([phone]) or report to the closest Emergency Room. Call 911 if necessary. 05/13/18 0028 <Electronically signed by Main Bledsoe MD> Date Main Bledsoe MD Cosigner Signature (If Indicated): Date CC: SAMANTHA BEJARANO DISCHARGE INSTRUCTION Observed: 05/13/2018 Status: F Source: [place] 12:28 AM [facility] REPOSITORY [facility] Medical Records Department [address] [place] [address] Discharge Instruction 05/12/18 181 MR#: [id number] Acct: [id number] Name: ANGELICA ANDUJAR Rep #: [id number] : 1980 37 From: Main Bledsoe MD [facility] Status: DEP ER ED Disposition - Plan for ED Patient: Disposition: Home or Assisted Living Chief Complaint: Diarrhea Instructions: ED Diarrhea Viral Prescriptions: Loperamide [Imodium] 2 mg PO Q2H PRN PRN #10 cap PRN Reason: Diarrhea Referrals: Samantha Shields [Primary Care Provider] - 3-5 Days if [...] your Primary Care Provider. Call [facility] ([phone]) or report to the closest Emergency Room. Call 911 if necessary. 05/13/18 0028 <Electronically signed by Main Bledsoe MD> Date Main Bledsoe MD Cosigner Signature (If Indicated): Date CC: [facility] CBC W/DIFF, AUTOMATED Collected: 05/12/2018 Status: F Source: [place] 4:10 PM [facility] REPOSITORY TYPE CODE TESTS RESULT OUT [...] Lymph 2.11 Performed By: #### L100.0100 #### [facility] [address] [place], [address] BASIC METABOLIC Collected: 05/12/2018 Status: F Source: [place] PROFILE ([facility]) 4:10 PM [facility] REPOSITORY TYPE CODE TESTS RESULT OUT [...] GAP 8 Performed By: #### L500.2500 #### [facility] [address] [facility] [place], [place], [address] URINALYSIS, COMPLETE Collected: 05/12/2018 Status: F Source: [place] 2:30 PM [facility] REPOSITORY Order Comment: Order Date: 05/12/18 COLOR [...] URINE SEEN Performed By: #### L400.0001 #### [facility] [address] [place], [address] Observed: 05/05/2018 Status: F Source: [place] BACT/CAND VAG [facility] 11:03 [facility] REPOSITORY Sp. Request/Comment: - Swab Smear Result - BACTERIAL VAGINOSIS RESULT: Stain results indicate mixed morphotypes consistent with transition from normal vaginal keisha. Rare Polymorphonuclear leukocytes Moderate Epithelial cells No Yeast observed Performed By: #### BVCNSM #### [place] [address] Observed: 05/05/2018 Status: F Source: [place] TRICHOMONAS PREP 11:03 [facility] REPOSITORY Sp. Request/Comment: - Swab Smear Result - Negative for Trichomonas vaginalis antigen This test was developed and its performance characteristics determined by [facility] [place] ([facility] It has not been cleared or approved by the FDA. [facility] is regulated under CLIA as qualified to perform high-complexity testing. This test is used for clinical purposes. It should not be regarded as investigational or for research. Performed By: #### TRICHO #### [place] [address] [place] [address] GC/CHLAMYDIA AMPLIF Collected: 05/05/2018 Status: F Source: [place] 11:01 [facility] REPOSITORY TYPE CODE TESTS RESULT OUT OF REFERENCE UNITS RANGE LAB GCCTSR GC/Chlam Amp Cervix Source LAB GCAMPL GC Negative Amplification for Neisseria gonorrhoeae by amplification. LAB CLAMPL Chlamydia Negative Amplif for Chlamydia trachomatis by amplification. Performed By: #### GCCT #### [place] [address] PROGRESS Observed: 05/05/2018 Status: COMPLETED Source: [place] 10:36 AM [facility] REPOSITORY HNO ID: [id number] Author: Veronica Gamez Service: (none) Author Type: [...] external genitalia normal, normal Bartholin's glands, urethra, Furley's glands, no vulvar lesions, no cervical lesions, [...] lab results. Follow-up as needed. Veronica Gamez APRN.LAURENT CNOV Observed: 05/05/2018 Status: COMPLETED Source: [place] 9:45 AM [facility] REPOSITORY Office Visit (WOOB) ANGELICA ANDUJAR ([id number]) 1980 F Date Time Provider Department 05/05/18 9:45 AM VERONICA GAMEZ (LAURENT) WOOB During your visit today, we recorded the following information about you: Blood pressure Weight Last Period 100/58 86.5 kg 04/21/18 Veronica Gamez APRN.LAURENT 05/05/2018 11:07 AM Signed Angelica Andujar is a 37 year [...] external genitalia normal, normal Bartholin's glands, urethra, Furley's glands, no vulvar lesions, no cervical lesions, [...] lab results. Follow-up as needed. 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 O.K. FOR MEDICAL PROFESSIONAL TO USE 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 AND THEN TOUCH HER, BUT SHE HERSELF DOES NOT USE IT. IODINE 02/18/2011 2 - Rash LACTOSE INTOLERANCE (LACTASE) 11/04/2009 LAT[place], NATURAL RUBBER 03/17/2018 2 - Rash [place] 12/07/2017 10 - Anaphylaxis METRONIDAZOLE 04/11/2018 4 [...] constipation Date Reviewed: 05/05/2018 Reviewed by: Veronica Gamez - Fully Assessed Reason for Visit: follow up yeast infection [Other] Cmt: STD testing Primary Visit Diagnosis:Acute vaginitis [N76.0] Other Visit Diagnoses:High risk sexual behavior, unspecified type [Z72.51] Screen for STD (sexually transmitted disease) [Z11.3] Order(s):HEP B SURF AG SCRN [SQHBSAG] Order #: [id number] FUTURE HCV QUANT RNA BY PCR [SQHCQPCR] Order #: [id number] FUTURE HIV 1,2 COMBO (AG/AB) [SQHIV12] Order #: [id number] FUTURE GC/CHLAMYDIA DNA DET [SQGCCAMP] Order #: [id number] SYPHILIS IGG WITH CONF [SQSYPHGX] Order #: [id number] FUTURE TRICHOMONAS PREP [SQTRICHO] Order #: [id number] BACT/MISTY VAG GRAM STAIN [SQBVCNSM] Order #: [id number] FUTURE fluconazole (DIFLUCAN) 150 mg tabletTake 1 [...] 05/01/2018 Status: F Source: [place] 1:14 PM [facility] REPOSITORY [facility] Imaging Services [address] [place] [address] Sacrum-Coccyx min 2 Views MR#: [id number] Acct: [id number] Name: ANGELICA ANDUJAR Rep #: [id number] : 1980 F 37 From: Khoi Middleton MD PCP: SAMANTHA BEJARANO Status: REG CLI Study: Sacrum-Coccyx min 2 Views Date of Exam: 05/01/18 Exam# [id number] Ordering Dr: Samantha Shields STUDY: X-RAY - [...] , Service support , CC: [facility] Woolen Suiting Shrinker: Signed LUMBAR SPINE 2 OR 3 Observed: 05/01/2018 Status: F Source: [place] VIEWS 1:14 PM [facility] REPOSITORY [facility] Imaging Services [address] [place] [address] Lumbar Spine 2 or 3 Views MR#: [id number] Acct: [id number] Name: ANGELICA ANDUJAR Rep #: [id number] : 1980 F 37 From: Khoi Middleton MD PCP: SAMANTHA BEJARANO Status: REG CLI Study: Lumbar Spine 2 or 3 Views Date of Exam: 05/01/18 Exam# [id number] Ordering Dr: Samantha Shields STUDY: X-RAY - [...] , Service support , CC: [facility] Woolen Suiting Shrinker: Signed Observed: 04/12/2018 Status: F Source: [place] TRICHOMONAS PREP 12:06 PM [facility] REPOSITORY Smear Result - Negative for Trichomonas vaginalis antigen This test was developed and its performance characteristics determined by [facility]'s [place] [place] ([facility]). It has not been cleared or approved by the FDA. -[facility] is regulated under CLIA as qualified to perform high-complexity testing. This test is used for clinical purposes. It should not be regarded as investigational or for research. Performed By: #### TRICHO #### [place] [address] Observed: 04/12/2018 Status: F Source: [place] BACT/CAND VAG GRM ST 12:06 PM [facility] REPOSITORY Smear Result - BACTERIAL VAGINOSIS RESULT: Stain results consistent with normal vaginal keisha. Many --> ABNORMAL ALERT Yeast --> ABNORMAL ALERT Many Polymorphonuclear leukocytes Performed By: #### BVCNSM #### [place] [address] GC/CHLAMYDIA AMPLIF Collected: 04/11/2018 Status: F Source: [place] 12:06 PM [facility] REPOSITORY TYPE CODE TESTS RESULT OUT OF REFERENCE UNITS RANGE LAB GCCTSR GC/Chlam Amp Cervix Source LAB GCAMPL GC Negative Amplification for Neisseria gonorrhoeae by amplification. LAB CLAMPL Chlamydia Negative Amplif for Chlamydia trachomatis by amplification. Performed By: #### GCCT #### [place] [address] CNOV Observed: 04/11/2018 Status: COMPLETED Source: [place] 11:45 AM [facility] REPOSITORY Office Visit (WOOB) ANGELICA ANDUJAR ([id number]) 1980 F Date Time Provider Department 04/11/18 11:45 AM VERONICA GAMEZ (LAURENT) WOOB During your visit today, we recorded the following information about you: Blood pressure Weight 104/62 87.1 kg Veronica Gamez APRN.CNP 04/11/2018 12:39 PM Signed Corporate Quality Engineer offered: Patient declines. Angelica Andujar is a [...] of light flow Contraception: none Last pap: 2013, normal Past medical, surgical, social history, medications and allergies reviewed and updated. OBJECTIVE: BP 104/62 Wt 192 lb (87.1kg) LMP 03/12/2018 GENERAL: Well developed, well nourished in no apparent distress ABDOMEN: soft, non-tender and no masses PELVIC: labia excoriated, normal Bartholin's glands, urethra, Furley's glands, no vulvar lesions, no cervical lesions, [...] your health care provider. You cannot purchase jgao-lbn-wkokaqe products to treat BV. Products for douching [...] swelling, or soreness around the vagina ?Copyright 1673-6327 The [facility]. All rights reserved. This information is provided by the [facility] and is not intended to replace the medical advice of your doctor or health care provider. Please consult your health care provider for advice about a specific medical condition. For additional written health information, please contact the Health Information Center at the [facility] or toll-free extension [phone] or visit [email or web address] This document was last reviewed on: [...] diabetes Get tested for HIV/AIDS ? Copyright 2098-1257 The [facility]. All rights reserved. This information is provided by the [facility] and is not intended to replace the medical advice of your doctor or health care provider. Please consult your health care provider for advice about a specific medical condition. For additional written health information, please contact the Health Information Center at the [facility] or toll-free extension [phone]. This document was last reviewed on: 2004 index#5019 Referring Provider: SELF [200] Allergies As of [...] Unknown Comments: Dust mites and cockroaches 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 (ETHYL ALCOHOL (SK*11/04/2009 2 - Rash Comments: PT HAS SENSITIVE SKIN. O.K. FOR MEDICAL PROFESSIONAL TO USE 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 AND THEN TOUCH HER, BUT SHE HERSELF DOES NOT USE IT. IODINE 02/18/2011 2 - Rash LACTOSE INTOLERANCE (LACTASE) 11/04/2009 LATEX, NATURAL RUBBER 03/17/2018 2 - Rash [place] 12/07/2017 10 - Anaphylaxis METRONIDAZOLE 04/11/2018 4 [...] constipation Date Reviewed: 04/11/2018 Reviewed by: Veronica Gamez - Fully Assessed Reason for Visit: Vaginal Problem [117] Cmt: Itching, burning, discharge Primary Visit Diagnosis:Acute vaginitis [N76.0] Other Visit Diagnosis:Screen for STD (sexually transmitted disease) [Z11.3] Order(s):GC/CHLAMYDIA DNA DET [SQGCCAMP] Order #: [id number] BACT/MISTY VAG GRAM STAIN [SQBVCNSM] Order #: [id number] FUTURE TRICHOMONAS PREP [SQTRICHO] Order #: [id number] fluconazole (DIFLUCAN) 150 mg tabletTake 1 tablet by mouth one time only for 1 dose.Disp: 1 tabletRfl: 0 nystatin (MYCOSTATIN) creamApply 1 application to affected area twice daily.Disp: 1 TubeRfl: 1 RAPID BV B/O [[id number]] Order #: [id number] Prescriptions as of 04/11/2018 Sig: ALBUTEROL SULFATE [...] your health care provider. You cannot purchase dblo-jmd-egsztmh products to treat BV. Products for douching [...] swelling, or soreness around the vagina ?Copyright 2004-2256 The [facility]. All rights reserved. This information is provided by the [facility] and is not intended to replace the medical advice of your doctor or health care provider. Please consult your health care provider for advice about a specific medical condition. For additional written health information, please contact the Health Information Center at the [facility] or toll-free extension [phone] or visit [email or web address] This document was last reviewed on: [...] diabetes Get tested for HIV/AIDS ? Copyright 9680-9493 The [facility]. All rights reserved. This information is provided by the [facility] and is not intended to replace the medical advice of your doctor or health care provider. Please consult your health care provider for advice about a specific medical condition. For additional written health information, please contact the Health Information Center at the [facility] or toll-free extension [phone]. This document was last reviewed on: 2004 index#5019 Prescriptions ordered this encounter Disp Refills Start [...] 04/11/18 PROGRESS Observed: 04/11/2018 Status: COMPLETED Source: [place] 11:30 AM [facility] REPOSITORY O ID: [id number] Author: Veronica Gamez Service: (none) Author Type: Nurse Practitioner Type: Progress Notes Filed: 04/11/2018 12:39 PM Note Text: Corporate Quality Engineer offered: Patient declines. Angelica Andujar is a [...] PELVIC: labia excoriated, normal Bartholin's glands, urethra, Furley's glands, no vulvar lesions, no cervical lesions, [...] TRICHOMONAS PREP Follow-up as needed. Veronica Gamez APRN.LAURENT PROGRESS Observed: 04/08/2018 Status: COMPLETED Source: [place] 2:59 PM [facility] [place] REPOSITORY HNO ID: [id number] Author: Ian Ying Service: (none) Author Type: [...] Unknown Dust mites and cockroaches - Hand Ends Down Checker [Eth* Rash PT HAS SENSITIVE SKIN. O.K. FOR MEDICAL PROFESSIONAL TO USE 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 AND THEN TOUCH HER, BUT SHE HERSELF DOES NOT USE IT. - Iodine Rash - Lactose Intolerance* - [place] Anaphylaxis - Mold Unknown - Morphine Itching [...] MD CNOV Observed: 04/08/2018 Status: COMPLETED Source: [place] 2:30 PM [facility] REPOSITORY Office Visit (WSTR) ANGELICA ANDUJAR ([id number]) 1980 F Date Time Provider Department 04/08/18 2:30 PM IAN YING [facility] During your visit today, we recorded the [...] Unknown Dust mites and cockroaches - Hand Ends Down Checker [Eth* Rash PT HAS SENSITIVE SKIN. O.K. FOR MEDICAL PROFESSIONAL TO USE 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 AND THEN TOUCH HER, BUT SHE HERSELF DOES NOT USE IT. - Iodine Rash - Lactose Intolerance* - [place] Anaphylaxis - Mold Unknown - Morphine Itching [...] Unknown Comments: [facility] BENZALKONIUM CHLORIDE 09/08/2012 14 - Other: See Comments Comments: Skin irritations CLINDAMYCIN 03/27/2018 8 - GI Upset DOXYCYCLINE 12/13/2012 8 - GI Upset Comments: stomach cramps DUST MITES 04/26/2012 16 - Unknown Comments: Dust mites and cockroaches 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 (ETHYL ALCOHOL (SK*11/04/2009 2 - Rash Comments: PT HAS SENSITIVE SKIN. O.K. FOR MEDICAL PROFESSIONAL TO USE 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 AND THEN TOUCH HER, BUT SHE HERSELF DOES NOT USE IT. IODINE 02/18/2011 2 - Rash LACTOSE INTOLERANCE (LACTASE) 11/04/2009 [place] 12/07/2017 10 - Anaphylaxis MOLD 04/26/2012 16 [...] 04/08/18 PROGRESS Observed: 04/05/2018 Status: COMPLETED Source: [place] 11:31 AM [facility] REPOSITORY HNO ID: [id number] Author: Keshia Carranza Service: (none) Author Type: [...] maculopapular and urticarial. She is not diaphoretic. [place], Maculopapular lesions scattered to areas noted. Several [...] Benzalkonium Chloride; Clindamycin; Doxycycline; Dust Mites; Hand Ends Down Checker [Ethyl Alcohol (Skin Cleanser)]; Iodine; Lactose Intolerance [Lactase]; [place]; Mold; Morphine; Penicillin; Pet Dander [Other]; Prednisone; [...] CNP CNOV Observed: 04/05/2018 Status: COMPLETED Source: [place] 10:00 AM [facility] REPOSITORY Office [facility] ANGELICA ANDUJAR ([id number]) 1980 F Date Time Provider Department 04/05/18 10:00 AM KESHIA CARRANZA [facility] During your visit today, we recorded the following information about you: Temperature Pulse Respiration Blood pressure 98 degrees 76/minute 16/minute 122/72 Weight 88.5 kg Keshia Carranza, MD ALLERGY IMMUNOLOGY.DISTRIBUTION CENTER ASSISTANT 04/05/2018 11:34 AM Signed Subjective HPI Pt [...] maculopapular and urticarial. She is not diaphoretic. [place], Maculopapular lesions scattered to areas noted. Several [...] Benzalkonium Chloride; Clindamycin; Doxycycline; Dust Mites; Hand Ends Down Checker [Ethyl Alcohol (Skin Cleanser)]; Iodine; Lactose Intolerance [Lactase]; [place]; Mold; Morphine; Penicillin; Pet Dander [Other]; Prednisone; [...] Unknown Comments: Dust mites and cockroaches 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 (ETHYL ALCOHOL (SK*11/04/2009 2 - Rash Comments: PT HAS SENSITIVE SKIN. O.K. FOR MEDICAL PROFESSIONAL TO USE 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 AND THEN TOUCH HER, BUT SHE HERSELF DOES NOT USE IT. IODINE 02/18/2011 2 - Rash LACTOSE INTOLERANCE (LACTASE) 11/04/2009 [place] 12/07/2017 10 - Anaphylaxis MOLD 04/26/2012 16 [...] area for rash/itching. Letter Text Keshia Carranza, MD ALLERGY IMMUNOLOGY.[facility] [address] [facility] [address] Dept: [phone] 04/05/2018 Angelica Andujar [address] [facility] [address] To Whom it May Concern: This is to certify that Angelica Andujar was seen at our office for medical care. Angelica may return to school on 04/05/2018, non contagious. If you have any questions please feel free to call. Sincerely: Keshia Carranza APRN.CNP Encounter Status:Closed by KESHIA CARRANZA CNP on 04/05/18 Observed: 03/30/2018 Status: F Source: [place] BACT/CAND VAG GRM ST 11:50 AM [facility] REPOSITORY Sp. Request/Comment: - Swab Smear Result - Stain results consistent with normal vaginal keisha. No Yeast observed Performed By: #### BVCNSM #### [facility] [address] [place], [place] [address] CNOV Observed: 03/30/2018 Status: COMPLETED Source: [place] 11:45 AM [facility] REPOSITORY Office Visit (WOOB) ANGELICA ANDUJAR ([id number]) 1980 F Date Time Provider Department 03/30/18 11:45 AM VERONICA GAMEZ ([facility]) WOOB During your visit today, we recorded the following information about you: Blood pressure Weight Last Period 112/70 87.5 kg 03/12/18 Veronica Gamez APRN.CNP 03/30/2018 12:15 PM Signed Corporate Quality Engineer offered: Patient declines. Angelica Andujar is a [...] Unknown FLAGYL [METRONIDAZOLE HCL] 06/20/2012 Hives 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 [ETHYL ALCOHOL (SK*11/04/2009 Rash IODINE 02/18/2011 Rash LACTOSE INTOLERANCE [LACTASE] 11/04/2009 [place] 12/07/2017 Anaphylaxis MOLD 04/26/2012 Unknown MORPHINE 03/02/2011 [...] external genitalia normal, normal Bartholin's glands, urethra, Furley's glands, no vulvar lesions, no cervical lesions, [...] B/O negative Follow-up as needed. Veronica Gamez APRN.LAURENT Gamez APRN.LAURENT 03/30/2018 12:55 PM Signed Addended by: VERONICA [...] Unknown Comments: Dust mites and cockroaches 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 (ETHYL ALCOHOL (SK*11/04/2009 2 - Rash Comments: PT HAS SENSITIVE SKIN. O.K. FOR MEDICAL PROFESSIONAL TO USE 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 AND THEN TOUCH HER, BUT SHE HERSELF DOES NOT USE IT. IODINE 02/18/2011 2 - Rash LACTOSE INTOLERANCE (LACTASE) 11/04/2009 [place] 12/07/2017 10 - Anaphylaxis MOLD 04/26/2012 16 [...] constipation Date Reviewed: 03/30/2018 Reviewed by: Veronica WadrW[facility] And HospitalCarlyn Gamez - Fully Assessed Reason for Visit: Vaginal Problem [117] Primary Visit Diagnosis:Acute vaginitis [N76.0] Other Visit Diagnosis:Urinary frequency [R35.0] Order(s):UA DIP B/O [[id number]] Order #: [id number] RAPID BV B/O [[id number]] Order #: [id number] metroNIDAZOLE (FLAGYL) 500 mg tabletTake 1 tablet by mouth twice daily for 7 days.Disp: 14 tabletRfl: 0 BACT/MISTY VAG GRAM STAIN [SQBVCNSM] Order #: [id number] FUTURE Prescriptions as of 03/30/2018 Sig: LACTOBACILLUS [...] 03/30/18 PROGRESS Observed: 03/30/2018 Status: COMPLETED Source: [place] 11:38 AM [facility] [place] REPOSITORY O ID: [id number] Author: Veronica (Laurent) Federico Service: (none) Author Type: Nurse Practitioner Type: Progress Notes Filed: 03/30/2018 12:15 PM Note Text: Corporate Quality Engineer offered: Patient declines. Angelica Andujar is a [...] Unknown FLAGYL [METRONIDAZOLE HCL] 06/20/2012 Hives 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 [ETHYL ALCOHOL (SK*11/04/2009 Rash IODINE 02/18/2011 Rash LACTOSE INTOLERANCE [LACTASE] 11/04/2009 [place] 12/07/2017 Anaphylaxis MOLD 04/26/2012 Unknown MORPHINE 03/02/2011 [...] external genitalia normal, normal Bartholin's glands, urethra, Furley's glands, no vulvar lesions, no cervical lesions, [...] B/O negative Follow-up as needed. Veronica Gamez APRN.DISTRIBUTION CENTER ASSISTANT PROGRESS Observed: 03/27/2018 Status: COMPLETED Source: [place] 1:39 PM [facility] REPOSITORY HNO ID: [id number] Author: Maureen Zelaya (Pa) Service: (none) Author Type: Physician Bilingual Social Worker Type: Progress Notes Filed: 03/29/2018 2:54 PM [...] was seen in the emergency department at [facility] on 03/24/18 for constipation, those records [...] Doxycycline; Dust Mites; Flagyl [Metronidazole Hcl]; Hand Ends Down Checker [Ethyl Alcohol (Skin Cleanser)]; Iodine; Lactose Intolerance [Lactase]; [place]; Mold; Morphine; Penicillin; Pet Dander [Other]; Prednisone; [...] entered by the nurse and reviewed by ca Nursing Notes: Dariusz Cali LPN 03/27/2018 1:15 [...] with more than 50% of the total zbds-hb-sxlj time of the visit in counseling / coordination of care. Maureen Zelaya PA-C CNOV Observed: 03/27/2018 Status: COMPLETED Source: [place] 1:00 PM [facility] REPOSITORY Office Visit (GENSWS) ANGELICA ANDUJAR ([id number]) 1980 F Date Time Provider Department 03/27/18 1:00 PM MAURENE ZELAYA) SANTINOS During your visit today, we recorded the following information about you: Pulse Blood pressure Weight 84/minute 118/78 86.6 kg Dariusz Cali MANAGER MANAGEMENT 03/27/2018 1:15 PM Signed REVIEW OF SYSTEMS: [...] AND PHYSICAL Angelica Andujar 1980 REFERRING PHYSICIAN: Cristian CHIEF COMPLAINT: Consult (Consult GERD/ Constipation) HPI: [...] was seen in the emergency department at [facility] on 03/24/18 for constipation, those records [...] Doxycycline; Dust Mites; Flagyl [Metronidazole Hcl]; Hand Ends Down Checker [Ethyl Alcohol (Skin Cleanser)]; Iodine; Lactose Intolerance [Lactase]; [place]; Mold; Morphine; Penicillin; Pet Dander [Other]; Prednisone; [...] entered by the nurse and reviewed by ca Nursing Notes: Dariusz Cali LPN 03/27/2018 1:15 [...] with more than 50% of the total vrho-on-vwtd time of the visit in counseling / [...] (METRONIDAZOLE HCL) 06/20/2012 4 - Hives 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 (ETHYL ALCOHOL (SK*11/04/2009 2 - Rash Comments: PT HAS SENSITIVE SKIN. O.K. FOR MEDICAL PROFESSIONAL TO USE 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 AND THEN TOUCH HER, BUT SHE HERSELF DOES NOT USE IT. IODINE 02/18/2011 2 - Rash LACTOSE INTOLERANCE (LACTASE) 11/04/2009 [place] 12/07/2017 10 - Anaphylaxis MOLD 04/26/2012 16 [...] 03/27/2018 1:06 PM >> DARIUSZ CALI LPN [facility] Mar 27, 2018 1:06 PM Please D/c PROBIOTIC BLEND ORAL >> Dariusz Cali LPN 03/27/2018 1:08 PM >> DARIUSZ CALI LPN [facility] Mar 27, 2018 1:08 PM Please D/c Problem [...] screening? 01/20 Last Colonoscopy: 02/13 Dariusz Cali MANAGER MANAGEMENT Prescriptions ordered this encounter Disp Refills Start [...] EMERGENCY DEPARTMENT Observed: 03/25/2018 Status: F Source: [place] SUMMARY 12:06 AM [facility] REPOSITORY [facility] Medical Records Department [address] [place] [address] Emergency Department Summary 03/24/18 1520 MR#: [id number] Acct: [id number] Name: ANGELICA ANDUJAR Rep #: [id number] : 1980 37 From: Main Bledsoe MD [...] Acute constipation This note was generated with Edictive dictation software. It may contain incorrect words, [...] your Primary Care Provider. Call [facility] ([phone]) or report to the closest Emergency Room. Call 911 if necessary. 03/25/18 0006 <Electronically signed by Main Bledsoe MD> Date Main Bledsoe MD Cosigner Signature (If Indicated): Date CC: Mallorie DE LA TORRE DISCHARGE INSTRUCTION Observed: 03/25/2018 Status: F Source: [place] 12:06 AM [facility] REPOSITORY [facility] Medical Records Department [address] [place] [address] Discharge Instruction 03/24/18 1545 MR#: [id number] Acct: [id number] Name: ANGELICA ANDUJAR Rep #: [id number] : 1980 37 From: Main Bledsoe MD PCP: Mallorie Juares Status: [facility] ER ED Disposition - Plan for ED [...] your Primary Care Provider. Call [facility] ([phone]) or report to the closest Emergency Room. Call 911 if necessary. 03/25/18 0006 <Electronically signed by Main Bledsoe MD> Date Main Bledsoe MD Cosigner Signature (If Indicated): Date CC: Mallorie DE [place] T[place] ABDOMEN SINGLE VIEW Observed: 03/24/2018 Status: F Source: [place] (PORTABLE) 3:18 PM [facility] REPOSITORY [facility] Imaging Services [address] [place] [address] Abdomen Single View (Portable) MR#: [id number] Acct: [id number] Name: ANGELICA ANDUJAR Rep #: [id number] : 1980 F 37 From: Khoi Almeida MD PCP: Mallorie Juares Status: DEP ER Study: Abdomen Single View (Portable) Date of Exam: 03/24/18 Exam# [id number] Ordering Dr: Main Bledsoe MD STUDY: X-RAY [...] Main Bledsoe MD; Mallorie DE LA TORRE Woolen Suiting Shrinker: Signed CELSO Observed: 03/24/2018 Status: COMPLETED Source: [place] 11:25 AM [facility] REPOSITORY Office Visit (PODIWS) ANGELICA ANDUJAR ([id number]) 1980 F Date Time Provider Department 03/24/18 11:25 AM YOGI AMOS During your visit today, we recorded the following information about you: Yogi Amos DPM 03/24/2018 5:19 PM Signed ? Yogi Amos DPM Department of Podiatry [address] [address] Dept: [phone] Dept 03/24/2018 Follow Up Podiatric Office Visit: [...] (METRONIDAZOLE HCL) 06/20/2012 4 - Hives 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 (ETHYL ALCOHOL (SK*11/04/2009 2 - Rash Comments: PT HAS SENSITIVE SKIN. O.K. FOR MEDICAL PROFESSIONAL TO USE 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 AND THEN TOUCH HER, BUT SHE HERSELF DOES NOT USE IT. IODINE 02/18/2011 2 - Rash LACTOSE INTOLERANCE (LACTASE) 11/04/2009 [place] 12/07/2017 10 - Anaphylaxis MOLD 04/26/2012 16 [...] and Disposition History Recorded Encounter Status:Closed by TESTRAKE, YOGI DPM on 03/24/18 PROGRESS Observed: 03/24/2018 Status: COMPLETED Source: [place] 11:19 AM [facility] REPOSITORY O ID: [id number] Author: Yogi Amos Service: (none) Author Type: Physician Type: Progress Notes Filed: 03/24/2018 5:19 PM Note Text: ? Yogi Amos DPM Department of Podiatry [address] [place] [address] Dept: [phone] Dept 03/24/2018 Follow Up Podiatric Office Visit: [...] 7. f/u in 3 weeks or prn. Ygoi Amos DPM XR FOOT 3V AP/LAT/OBL Observed: 03/24/2018 Status: F Source: [facility] 11:12 AM [facility] REPOSITORY * * *Final Report* * [...] CAVUS. NO CHANGE COMPARED TO PREVIOUS EXAM. Woolen Suiting Shrinker: PSCB Transcribe Date/Time: Mar 24 2018 2:14P Dictated by : YENY DE ANDA MD This examination was interpreted and the report reviewed and electronically signed by: YENY DE ANDA MD on Mar 24 2018 2:16PM EST [id number] PROGRESS Observed: 03/24/2018 Status: COMPLETED Source: [place] 11:02 AM [facility] REPOSITORY HNO ID: [id number] Author: Vonnie Patterson Rt Service: (none) Author [...] IV DATA: Not applicable SIGNED BY: Vonnie Miranda March 24, 2018 11:02 AM 12 LEAD ELECTROCARDIOGRAM Observed: 03/21/2018 Status: F Source: [place] 1:38 PM [facility] REPOSITORY [facility] Cardiovascular Services [address] [place] [address] [place] [address] 12 Lead EKG 03/19/18 0639 MR#: [id number] Acct: [id number] Name: ANGELICA ANDUJAR Rep #: [id number] : 1980 37 From: Vidal Lepe MD [...] ECG Confirmed by VIDAL LEPE MD ([id number]), production editor МАРИНА BRAR ([id number]) on 03/21/2018 1:38:45 PM Referred By: MARELY Confirmed By:VIDAL LEPE MD 03/21/18 1338 Date Vidal Lepe MD CC: Mallorie DE LA TORRE; Jose G Iqbal MD Signed EMERGENCY DEPARTMENT Observed: 03/20/2018 Status: F Source: [place] SUMMARY 6:54 PM [facility] REPOSITORY [facility] Medical Records Department [address] [place] [address] Emergency Department Summary 03/20/181851 MR#: [id number] Acct: [id number] Name: LAKSHMI ANDUJAR Rep #: [id number] : 1980 37 From: Blue Garcia MD [...] abdominal pain This note was generated with Edictive dictation software. It may contain incorrect words, spelling, and punctuation that were not noted in review of the chart prior to signing ED Disposition - Plan for ED Patient: Chief Complaint: Abd Pain Referrals: Mallorie Alexis, CLINICAL SUPPORT NURSE-C [Primary Care Provider] - What to do if you have Problems For any increased pain, shortness of breath, bleeding, nausea or vomiting, chest pain, or any unexpected problems, contact your Primary Care Provider. Call [facility] ([phone]) or report to the closest Emergency Room. Call 911 if necessary. 03/20/181853 <Electronically signed by Blue Garcia MD> Date Blue Garcia MD Cosigner Signature (If Indicated): Date CC: Mallorie DE LA TORRE DISCHARGE INSTRUCTION Observed: 03/20/2018 Status: F Source: [place] 6:54 PM [facility] REPOSITORY [facility] Medical Records Department [address] [place] [address] Discharge Instruction 03/20/181853 MR#: [id number] Acct: [id number] Name: LAKSHMI ANDUJAR Rep #: [id number] : 1980 37 From: Blue Garcia MD [...] your Primary Care Provider. Call [facility] ([phone]) or report to the closest Emergency Room. Call 911 if necessary. 03/20/181853 <Electronically signed by Blue Garcia MD> Date Blue Campos Signature (If Indicated): Date CC: Mallorie DE LA TORRE EMERGENCY DEPARTMENT Observed: 03/19/2018 Status: F Source: [place] SUMMARY 8:05 AM [facility] REPOSITORY [facility] Medical Records Department [address] [place] [address] Emergency Department Summary 03/19/18 0701 MR#: [id number] Acct: [id number] Name: ANGELICA ANDUJAR Rep #: [id number] : 1980 37 From: Jose G Iqbal MD PCP: Mallorie Juares Status: DEP ER - ER Visit Summary Date of Service: 03/19/18 Chief Complaint: Cough and shortness of breath History of Present Illness: The patient is a 37 F who goes to the [facility]. She reports that an hour ago she [...] for Flagyl suppositories. Instructed to follow-up the [facility] in 5 days not improving. Disposition: To home in improved and stable condition. Impression: 1. Adverse reaction to clindamycin. 2. URI. This note was generated with Edictive dictation software. It may contain incorrect words, [...] VAGINAL QHS #5 tube Referrals: Mallorie Alexis, CLINICAL SUPPORT NURSE-C [Primary Care Provider] - 1 Week if not improving What to do if you have Problems For any increased pain, shortness of breath, bleeding, nausea or vomiting, chest pain, or any unexpected problems, contact your Primary Care Provider. Call [facility] ([phone]) or report to the closest Emergency Room. Call 911 if necessary. 03/19/18 0805 <Electronically signed by Jose G Iqbal MD> Date Jose G Iqbal MD Cosigner Signature (If Indicated): Date CC: Mallorie DE LA TORRE CHEST 1 VIEW Observed: 03/19/2018 Status: F Source: [place] (PORTABLE) 6:27 AM [facility] REPOSITORY [facility] Imaging Services [address] [place] [address] Chest 1 View (Portable) MR#: [id number] Acct: [id number] Name: ANGELICA ANDUJAR Rep #: [id number] : 1980 F 37 From: Any Brar MD PCP: Mallorie Juares Status: DEP ER Study: Chest 1 View (Portable) Date of Exam: 03/19/18 Exam# [id number] Ordering Dr: Jose G Iqbal MD STUDY: [...] DE LA TORRE; Jose G Iqbal MD Woolen Suiting Shrinker: Signed PROGRESS Observed: 03/18/2018 Status: COMPLETED Source: [place] 3:10 PM [facility] [place] REPOSITORY HNO ID: [id number] Author: Ian Ying Service: (none) Author Type: [...] not in stock). She is planning to medicinal plant picker the Rx at another pharmacy today. [...] cockroaches - Flagyl [Metronidazo* Hives - Hand Ends Down Checker [Eth* Rash PT HAS SENSITIVE SKIN. O.K. FOR MEDICAL PROFESSIONAL TO USE 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 AND THEN TOUCH HER, BUT SHE HERSELF DOES NOT USE IT. - Iodine Rash - Lactose Intolerance* - [place] Anaphylaxis - Mold Unknown - Morphine Itching [...] prep. Start clindamycin QHS. Follow up with COMMUNITY HEALTH PROGRAM COORDINATOR if not improving. Ian Ying MD CNOV Observed: 03/18/2018 Status: COMPLETED Source: [place] 3:00 PM [facility] REPOSITORY Office Visit (WSTR) ANGELICA ANDUJAR ([id number]) 1980 F Date Time Provider Department 03/18/18 3:00 PM IAN YING JOEL During your visit today, we recorded the [...] not in stock). She is planning to medicinal plant picker the Rx at another pharmacy today. [...] cockroaches - Flagyl [Metronidazo* Hives - Hand Ends Down Checker [Eth* Rash PT HAS SENSITIVE SKIN. O.K. FOR MEDICAL PROFESSIONAL TO USE 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 AND THEN TOUCH HER, BUT SHE HERSELF DOES NOT USE IT. - Iodine Rash - Lactose Intolerance* - [place] Anaphylaxis - Mold Unknown - Morphine Itching [...] prep. Start clindamycin QHS. Follow up with COMMUNITY HEALTH PROGRAM COORDINATOR if not improving. MD Leah Chery Ma [...] (METRONIDAZOLE HCL) 06/20/2012 4 - Hives 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 (ETHYL ALCOHOL (SK*11/04/2009 2 - Rash Comments: PT HAS SENSITIVE SKIN. O.K. FOR MEDICAL PROFESSIONAL TO USE 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 AND THEN TOUCH HER, BUT SHE HERSELF DOES NOT USE IT. IODINE 02/18/2011 2 - Rash LACTOSE INTOLERANCE (LACTASE) 11/04/2009 [place] 12/07/2017 10 - Anaphylaxis MOLD 04/26/2012 16 [...] EMERGENCY DEPARTMENT Observed: 03/17/2018 Status: F Source: [place] SUMMARY 12:16 PM [facility] REPOSITORY [facility] Medical Records Department [address] [place] [address] Emergency Department Summary 03/17/18 0923 MR#: [id number] Acct: [id number] Name: ANGELICA ANDUJAR Rep #: [id number] : 1980 37 From: Ho Kathleen DO [...] Patient was instructed to follow-up with her [facility] physician in 5-7 days. Patient was instructed to continue her outpatient follow-up visits with her health insurance adjuster as scheduled. Patient understood and was agreeable with the plan. All questions were answered. Disposition: Discharged home Impression: General weakness This note was generated with Edictive dictation software. It may contain incorrect words, spelling, and punctuation that were not noted in review of the chart prior to signing ED Disposition - Plan for ED Patient: Disposition: Home or Assisted Living Chief Complaint: General Illness Diagnosis: General weakness Instructions: ED Weakness UKO Referrals: Mallorie Alexis, WOLF-C [Primary Care Provider] - What to do if you have Problems For any increased pain, shortness of breath, bleeding, nausea or vomiting, chest pain, or any unexpected problems, contact your Primary Care Provider. Call [facility] ([phone]) or report to the closest Emergency Room. Call 911 if necessary. 03/17/18 1216 <Electronically signed by Ho Kathleen DO> Date Ho Kathleen DO Cosigner Signature (If Indicated): Date CC: Mallorie DE LA TORRE URINALYSIS, COMPLETE Collected: 03/17/2018 Status: F Source: [place] 10:40 AM [facility] REPOSITORY Order Comment: How was Urine Obtained? [...] URINE SEEN Performed By: #### L400.0001 #### [facility] [address] [place], [place], [address] ,URINE Collected: 03/17/2018 Status: F Source: [place] 10:40 AM [facility] REPOSITORY Order Comment: Has pt arrived? Y TYPE CODE TESTS RESULT OUT OF REFERENCE UNITS RANGE LAB L400.8000 Negative Normal HCGUQUAL Negative Result Comment: Very dilute urine specimens, as indicated by a low specific gravity, may not contain tour sales representative levels of hCG. If is still suspected, a first morning urine specimen should be collected 48 hours later and tested. Performed By: #### L400.7600 #### [facility] [address] [facility] [place], [place], [address] CBC W/DIFF, AUTOMATED Collected: 03/17/2018 Status: F Source: [place] 9:40 AM [facility] REPOSITORY TYPE CODE TESTS RESULT OUT [...] Lymph 1.43 Performed By: #### L100.0100 #### [facility] [address] [place], [place], [address] BASIC METABOLIC Collected: 03/17/2018 Status: F Source: [place] PROFILE (BMP) 9:40 AM [facility] REPOSITORY TYPE CODE TESTS RESULT OUT [...] GAP 8 Performed By: #### L500.2500 #### [facility] [address] [facility] [place], [address] CHEST PA AND LATERAL Observed: 03/17/2018 Status: F Source: [place] 9:24 AM [facility] REPOSITORY [facility] Imaging Services [address] [place] [address] Chest PA and Lateral MR#: [id number] Acct: [id number] Name: ANGELICA ANDUJAR Rep #: [id number] : 1980 F 37 From: Shree Das MD PCP: Mallorie Juares Status: REG ER Study: Chest PA and Lateral Date of Exam: 03/17/18 Exam# [id number] Ordering Dr: Ho Kathleen DO STUDY: X-RAY [...] Shree Das MD at 10:20 EDT Tel [phone], Service support , CC: Ho Kathleen DO; Mallorie DE LA TORRE Woolen Suiting Shrinker: Signed VAG PATHOGENS DNA Collected: 03/16/2018 Status: F Source: [place] 11:04 PM [facility] REPOSITORY TYPE CODE TESTS RESULT OUT [...] DNA Probe Performed By: #### VAGDNA #### [facility] [employer] [address] [place], [place] [address] Observed: 03/16/2018 Status: F Source: [place] URINE CULTURE 9:07 PM [facility] REPOSITORY Sp. Request/Comment: - Specimen received in preservative Culture Result - No growth (<1,000 CFU/ml) Performed By: #### URCUL #### [facility] [address] [place], [place] [address] PROGRESS Observed: 03/16/2018 Status: COMPLETED Source: [place] 1:51 PM [facility] RE[facility] HNO ID: [id number] Author: Dorys Huffman) Lakshmi Service: (none) Author [...] She saw her PCP yesterday at the [facility] for wheezing. She did not mention the [...] Doxycycline; Dust Mites; Flagyl [Metronidazole Hcl]; Hand Ends Down Checker [Ethyl Alcohol (Skin Cleanser)]; Iodine; Lactose Intolerance [Lactase]; [place]; Mold; Morphine; Penicillin; Pet Dander [Other]; Prednisone; [...] PROBES - vaginal exam done with a internal medicine doctor present, Zenobia Reeves. Patient tolerated exam well. [...] APRN.CNP CNOV Observed: 03/16/2018 Status: COMPLETED Source: [place] 1:30 PM [facility] REPOSITORY Office Visit (WSTR) ANGELICA ANDUJAR ([id number]) 1980 F Date Time Provider Department 03/16/18 1:30 PM [facility]OR[facility] SHORT ([facility] During your visit today, we recorded the [...] She saw her PCP yesterday at the [facility] for wheezing. She did not mention the [...] Doxycycline; Dust Mites; Flagyl [Metronidazole Hcl]; Hand Ends Down Checker [Ethyl Alcohol (Skin Cleanser)]; Iodine; Lactose Intolerance [Lactase]; [place]; Mold; Morphine; Penicillin; Pet Dander [Other]; Prednisone; [...] PROBES - vaginal exam done with a internal medicine doctor present, Zenobia Reeves. Patient tolerated exam well. [...] analgesia. - Discussed expected course of illness OSVALDO Multani APRN.CNP 03/16/2018 2:15 PM Signed Take medications [...] (METRONIDAZOLE HCL) 06/20/2012 4 - Hives 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 (ETHYL ALCOHOL (SK*11/04/2009 2 - Rash Comments: PT HAS SENSITIVE SKIN. O.K. FOR MEDICAL PROFESSIONAL TO USE 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 AND THEN TOUCH HER, BUT SHE HERSELF DOES NOT USE IT. IODINE 02/18/2011 2 - Rash LACTOSE INTOLERANCE (LACTASE) 11/04/2009 [place] 12/07/2017 10 - Anaphylaxis MOLD 04/26/2012 16 [...] [N94.9] Acute constipation [K59.00] Order(s):UA DIP B/O [4950114] Order #: [id number] URINE CULTURE [SQURCUL] Order #: [id number] docusate sodium (COLACE) 100 mg capsuleTake 1 capsule by mouth twice daily as needed for Constipation.Disp: 30 capsuleRfl: 0 GC/CHLAMYDIA DNA DET [SQGCCAMP] Order #: [id number] VAGINAL PATHOGENS DNA PROBES [SQVAGDNA] Order #: [id number] Prescriptions as of 03/16/2018 Sig: NAPROXEN 500 [...] 03/16/2018 1:32 PM >> BERNADINE REEVES MA Mar 16, 2018 1:32 PM LORATADINE 10 [...] GC/CHLAMYDIA AMPLIF Collected: 03/16/2018 Status: F Source: [place] 2:51 AM [facility] REPOSIT[facility] TYPE CODE TESTS RESULT OUT OF REFERENCE UNITS RANGE LAB GCCTSR GC/Chlam Amp [facility] LAB GCAMPL GC Negative Amplification for Neisseria gonorrhoeae by amplification. LAB CLAMPL Chlamydia Negative Amplif for Chlamydia trachomatis by amplification. Performed By: #### GCCT #### [facility] [address] [place], [place] [address] EMERGENCY DEPARTMENT Observed: 03/13/2018 Status: F Source: [place] SUMMARY 6:26 AM [facility] REPOSITORY [facility] Medical Records Department [address] [place] [address] Emergency Department Summary 03/13/18 0623 MR#: [id number] Acct: [id number] Name: ANGELICA ANDUJAR Rep #: [id number] : 1980 37 From: Lucero Floyd MD [...] viral syndrome This note was generated with Edictive dictation software. It may contain incorrect words, [...] your Primary Care Provider. Call [facility] ([phone]) or report to the closest Emergency Room. Call 911 if necessary. 03/13/18625 <Electronically signed by Lucero Floyd MD> Date Lucero Floyd MD Cosigner Signature (If Indicated): Date CC: Mallorie DE LA TORRE DISCHARGE INSTRUCTION Observed: 03/13/2018 Status: F Source: [place] 12:15 AM [facility] REPOSITORY [facility] Medical Records Department [address] [place] [address] Discharge Instruction 03/13/18 0014 MR#: [id number] Acct: [id number] Name: ANGELICA ANDUJAR Rep #: [id number] : 1980 37 From: Lucero Floyd MD [...] your Primary Care Provider. Call [facility] ([phone]) or report to the closest Emergency Room. Call 911 if necessary. 03/13/18 0015 <Electronically signed by Lucero Floyd MD> Date Lucero Floyd MD Cosigner Signature (If Indicated): Date CC: Mallorie DE LA TORRE HIP 2-3 VIEWS WITH Observed: 03/12/2018 Status: F Source: [place] PELVIS 10:44 PM [facility] REPOSITORY [facility] Imaging Services [address] [place] [address] Hip 2-3 Views with Pelvis MR#: [id number] Acct: [id number] Name: ANGELICA ANDUJAR Rep #: [id number] : 1980 F 37 From: Job Cao MD PCP: Mallorie Juares Status: PRE ER Study: Hip 2-3 Views with Pelvis Date of Exam: 03/12/18 Exam# [id number] Ordering Dr: Lucero Floyd MD STUDY: X-RAY [...] Lucero Floyd MD; Mallorie DE LA TORRE Woolen Suiting Shrinker: Signed CHEST 1 VIEW Observed: 03/12/2018 Status: F Source: [place] (PORTABLE) 10:23 PM [facility] REPOSITORY [facility] Imaging Services [address] [place] [address] Chest 1 View (Portable) MR#: [id number] Acct: [id number] Name: ANGELICA ANDUJAR Rep #: [id number] : 1980 F 37 From: Karson Vieira MD PCP: Mallorie Juares Status: PRE ER Study: Chest 1 View (Portable) Date of Exam: 03/12/18 Exam# [id number] Ordering Dr: Provider, Ed P. STUDY: X-RAY [...] ED PHYSICIAN PROVIDER; Mallorie DE LA TORRE Woolen Suiting Shrinker: Signed PROGRESS Observed: 03/06/2018 Status: COMPLETED Source: [place] 10:22 AM [facility] [place] REPOSITORY HNO ID: [id number] Author: Ian Ying Service: (none) Author Type: [...] cockroaches - Flagyl [Metronidazo* Hives - Hand Ends Down Checker [Eth* Rash PT HAS SENSITIVE SKIN. O.K. FOR MEDICAL PROFESSIONAL TO USE 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 AND THEN TOUCH HER, BUT SHE HERSELF DOES NOT USE IT. - Iodine Rash - Lactose Intolerance* - [place] Anaphylaxis - Mold Unknown - Morphine Itching [...] PCP and closed the exam door on CLINICAL SUPPORT NURSE. ASSESSMENT/PLAN: 1. Cough - ICD9: 786.2, ICD10: [...] MD CNOV Observed: 03/06/2018 Status: COMPLETED Source: [place] 9:45 AM [facility] REPOSITORY Office Visit (WSTR) ANGELICA ANDUJAR ([id number]) 1980 F Date Time Provider Department 03/06/18 9:45 AM IAN YING [facility] During your visit today, we recorded the [...] Bees Unknown Listed on records from Samantha Ottoniel - Benzalkonium Chlori* Other: See Comments Skin irritations - Doxycycline GI Upset stomach cramps - Dust Mites Unknown Dust mites and cockroaches - Flagyl [Metronidazo* Hives - Hand Ends Down Checker [Eth* Rash PT HAS SENSITIVE SKIN. O.K. FOR MEDICAL PROFESSIONAL TO USE 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 AND THEN TOUCH HER, BUT SHE HERSELF DOES NOT USE IT. - Iodine Rash - Lactose Intolerance* - [place] Anaphylaxis - Mold Unknown - Morphine Itching [...] PCP and closed the exam door on CLINICAL SUPPORT NURSE. ASSESSMENT/PLAN: 1. Cough - ICD9: 786.2, ICD10: [...] Unknown Comments: [facility] BENZALKONIUM CHLORIDE 09/08/2012 14 - Other: See Comments Comments: Skin irritations DOXYCYCLINE 12/13/2012 8 - GI Upset Comments: stomach cramps DUST MITES 04/26/2012 16 - Unknown Comments: Dust mites and cockroaches FLAGYL (METRONIDAZOLE HCL) 06/20/2012 4 - Hives 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 (ETHYL ALCOHOL (SK*11/04/2009 2 - Rash Comments: PT HAS SENSITIVE SKIN. O.K. FOR MEDICAL PROFESSIONAL TO USE 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 AND THEN TOUCH HER, BUT SHE HERSELF DOES NOT USE IT. IODINE 02/18/2011 2 - Rash LACTOSE INTOLERANCE (LACTASE) 11/04/2009 [place] 12/07/2017 10 - Anaphylaxis MOLD 04/26/2012 16 [...] Sore throat [J02.9] Order(s):RAPID STREP TEST B/O [6008462] Order #: [id number] Inhalational Spacing Device spcr1 Device one time [...] EMERGENCY DEPARTMENT Observed: 03/03/2018 Status: F Source: [place] SUMMARY 6:16 AM [facility] REPOSITORY [facility] Medical Records Department [address] [place] [address] [place] [address] Emergency Department Summary 03/03/18 0511 MR#: [id number] Acct: [id number] Name: ANGELICA ANDUJAR Rep #: [id number] : 1980 37 From: Ronald Mcqueen PCP: [...] respiratory infection This note was generated with Edictive dictation software. It may contain incorrect words, [...] inhaler PRN Reason: Wheezing Referrals: Mallorie Alexis, CLINICAL SUPPORT NURSE-C [Primary Care Provider] - 3-5 Days What to do if you have Problems For any increased pain, shortness of breath, bleeding, nausea or vomiting, chest pain, or any unexpected problems, contact your Primary Care Provider. Call [facility] ([phone]) or report to the closest Emergency Room. Call 911 if necessary. 03/03/18 0616 <Electronically signed by Ronald Mcqueen> Date Ronald Mcqueen Cosigner Signature (If Indicated): Date CC: Mallorie DE LA TORRE CHEST PA AND LATERAL Observed: 03/03/2018 Status: F Source: [place] 5:07 AM [facility] REPOSITORY [facility] Imaging Services [address] [place] [address] Chest PA and Lateral MR#: [id number] Acct: [id number] Name: ANGELICA ANDUJAR Rep #: [id number] : 1980 F 37 From: Cedric Hou MD PCP: Mallorie Juares Status: DEP ER Study: Chest PA and Lateral Date of Exam: 03/03/18 Exam# [id number] Ordering Dr: Ronald Gonzalez DO STUDY: X-RAY [...] CC: Mallorie DE LA TORRE; Ronald Gonzalez Woolen Suiting Shrinker: Signed PROGRESS Observed: 02/21/2018 Status: COMPLETED Source: [place] 1:25 PM [facility] REPOSITORY O ID: [id number] Author: Yogi Amos Service: (none) Author Type: Physician Type: Progress Notes Filed: 02/21/2018 1:51 PM Note Text: ? Yogi Amos DPM Department of Podiatry [address] [facility] [address] Dept: [phone] Dept 02/21/2018 Initial Podiatric Office Visit: HPI: [...] friends dog. Patient does have appointment with [facility] next week and is requesting new order [...] cockroaches - Flagyl [Metronidazo* Hives - Hand Ends Down Checker [Eth* Rash PT HAS SENSITIVE SKIN. O.K. FOR MEDICAL PROFESSIONAL TO USE 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 AND THEN TOUCH HER, BUT SHE HERSELF DOES NOT USE IT. - Iodine Rash - Lactose Intolerance* - [place] Anaphylaxis - Mold Unknown - Morphine Itching [...] Past Histories independently gathered by the clinical account support rep and the remaining scribed note accurately describes my personal service to the patient. Yogi Amos DPM CNOV Observed: 02/21/2018 Status: COMPLETED Source: [place] 1:10 PM [facility] REPOSITORY Office Visit (PODIWS) ANGELICA ANDUJAR ([id number]) 1980 F Date Time Provider Department 02/21/18 1:10 PM YOGI AMOS During your visit today, we recorded the following information about you: Yogi Amos DPM 02/21/2018 1:51 PM Signed ? Yogi Amos DPM Department of Podiatry [address] [facility] [address] Dept: [phone] Dept 02/21/2018 Initial Podiatric Office Visit: HPI: [...] friends dog. Patient does have appointment with [facility] next week and is requesting new order [...] Bees Unknown Listed on records from [facility] Ottoniel - Benzalkonium Chlori* Other: See Comments Skin irritations - Doxycycline GI Upset stomach cramps - Dust Mites Unknown Dust mites and cockroaches - Flagyl [Metronidazo* Hives - Hand Ends Down Checker [Eth* Rash PT HAS SENSITIVE SKIN. O.K. FOR MEDICAL PROFESSIONAL TO USE 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 AND THEN TOUCH HER, BUT SHE HERSELF DOES NOT USE IT. - Iodine Rash - Lactose Intolerance* - [place] Anaphylaxis - Mold Unknown - Morphine Itching [...] Past Histories independently gathered by the clinical account support rep and the remaining scribed note accurately describes [...] time on their feet, such as nurses, suction operator/waiters, and mail carriers, often experience plantar [...] choose the one that fits the best. [place] with your athletic shoes to find a [...] toward and pull the toes toward the brito. To test the stretch, place the thumb [...] (METRONIDAZOLE HCL) 06/20/2012 4 - Hives 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 (ETHYL ALCOHOL (SK*11/04/2009 2 - Rash Comments: PT HAS SENSITIVE SKIN. O.K. FOR MEDICAL PROFESSIONAL TO USE 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 AND THEN TOUCH HER, BUT SHE HERSELF DOES NOT USE IT. IODINE 02/18/2011 2 - Rash LACTOSE INTOLERANCE (LACTASE) 11/04/2009 [place] 12/07/2017 10 - Anaphylaxis MOLD 04/26/2012 16 [...] (acquired), right foot [M20.11] Order(s):CONSULT TO ORTHOTIC/PROSTHETIC [[id number]] Order #: [id number]: 1 naproxen (NAPROSYN) 500 mg tabletTake 1 [...] time on their feet, such as nurses, suction operator/waiters, and mail carriers, often experience plantar [...] choose the one that fits the best. [place] with your athletic shoes to find a [...] toward and pull the toes toward the brito. To test the stretch, place the thumb [...] 02/20/2018 Status: F Source: [place] 8:38 AM [facility] REPOSITORY [facility] Cardiovascular Services [address] [place] [address] 12 Lead EKG 02/03/18 1702 MR#: [id number] Acct: [id number] Name: ANGELICA ANDUJAR Rep #: [id number] : 1980 37 From: Stephan Bello MD [...] Normal ECG Confirmed by STEPHAN BELLO ([id number]), production editor МАРИНА BRAR ([id number]) on 02/13/2018 6:13:20 PM Referred By: SHWETA Confirmed By:STEPHAN BELLO 02/13/18 1813 Date Stephan Bello MD CC: Juana Christopher MD; Mallorie DE LA TORRE Signed 12 LEAD ELECTROCARDIOGRAM Observed: 02/20/2018 Status: F Source: [place] 8:36 AM [facility] REPOSITORY [facility] Cardiovascular Services [address] [place] [address] 12 Lead EKG 02/01/18 1843 MR#: [id number] Acct: [id number] Name: ANGELICA ANDUJAR Rep #: [id number] : 1980 37 From: Stephan Bello MD [...] Normal ECG Confirmed by STEPHAN BELLO ([id number]), production editor МАРИНА BRAR ([id number]) on 02/13/2018 5:34:34 PM Referred By: STEPHANIE Confirmed By:STEPHAN BELLO 02/13/18 1734 Date Stephan Bello MD CC: Stephan Witt MD; Mallorie DE LA TORRE Signed CNCO Observed: 02/15/2018 Status: COMPLETED Source: [place] 4:21 PM [facility] [place] REPOSITORY HNO ID: [id number] Author: Mammography Coordinator Service: (none) Author Type: Physician Type: Letter Filed: 02/16/2018 11:32 PM Note Text: February 15, 2018 PID: [id number] Angelica Andujar [address] [place] [address] Dear Ms. Andujar, We are pleased to [...] report will be kept on file at [facility] as part of your permanent medical record and are available for your continuing care. Thank you for allowing us to help in meeting your health care needs. Sincerely, Dr. Wakefield Interpreting Radiologist [facility] (Normal over 40) [facility] SCREENING Observed: 02/15/2018 Status: F Source: [place] 3:33 PM [facility] REPOSITORY * * *Final Report* * * DATE OF EXAM: Feb 15 2018 3:33PM WO 0581 - [facility] SCREENING / PROCEDURE REASON: Encounter for screening mammogram for malignant neoplasm of breast * * * * Physician Interpretation * * * * RESULT: #[id number] - [facility] SCREENING BILATERAL DIGITAL SCREENING MAMMOGRAM WITH CAD: [...] is recommended. Monae Wakefield M.D., ch/sindhu:02/15/2018 16:21:31 [employer] Weaver: Jessa MCKAY)(Marifer), [facility] sent: Normal over 40 Mammogram BI-RADS: 1 Negative Woolen Suiting Shrinker: Sindhu Transcribe Date/Time: Feb 15 2018 3:34P Dictated by: MONAE WAKEFIELD MD This examination was interpreted and the report reviewed and electronically signed by: MONAE WAKEFIELD MD on Feb 15 2018 4:21PM EST [id number] GC/CHLAMYDIA AMPLIF Collected: 02/10/2018 Status: F Source: [place] 3:30 PM [facility] REPOSITORY TYPE CODE TESTS RESULT OUT OF REFERENCE UNITS RANGE LAB GCCTSR GC/Chlam Amp [facility] Source LAB GCAMPL GC Negative Amplification for Neisseria gonorrhoeae by amplification. LAB CLAMPL Chlamydia Negative Amplif for Chlamydia trachomatis by amplification. 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 Vaginal discharge: [...] external genitalia normal, normal Bartholin's glands, urethra, Furley's glands, no vulvar lesions, no cervical lesions, good vaginal support, physiologic discharge present, normal appearing perineal body and perianal region BIMANUAL: uterus normal size, shape and consistency, no adnexal masses and non-tender. RECTOVAGINAL: deferred. Wet prep/JAYASHREE: ASSESSMENT/PLAN: normal physiological vaginal discharge, reassured vaginal pain, uncertain etiology check pelvic US declines other STI testing HCG neg, reassured, some menses may be bacteriology research assistant than others Office Visit on 02/10/18 -RAPID [...] FLAGYL (METRONIDAZOLE HC*06/20/2012 4 - Hives 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 (ETHYL ALCOHOL (SK*11/04/2009 2 - Rash Comments: PT HAS SENSITIVE SKIN. O.K. FOR MEDICAL PROFESSIONAL TO USE 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 AND THEN TOUCH HER, BUT SHE HERSELF DOES NOT USE IT. IODINE 02/18/2011 2 - Rash LACTOSE INTOLERANCE (LACTASE) 11/04/2009 [place] 12/07/2017 10 - Anaphylaxis MOLD 04/26/2012 16 [...] [N92.6] Pelvic cramping [R10.2] Order(s):RAPID TRICH B/O [[id number]] Order #: [id number] RAPID BV B/O [[id number]] Order #: [id number] GC/CHLAMYDIA DNA DET [SQGCCAMP] Order #: [id number]. #:[id number] HCG QUAL UR B/O [[id number]] Order #: [id number] PELVIC US WHI [[id number]] Order #: [id number]. 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 Vaginal discharge: [...] external genitalia normal, normal Bartholin's glands, urethra, Furley's glands, no vulvar lesions, no cervical lesions, good vaginal support, physiologic discharge present, normal appearing perineal body and perianal region BIMANUAL: uterus normal size, shape and consistency, no adnexal masses and non-tender. RECTOVAGINAL: deferred. Wet prep/JAYASHREE: ASSESSMENT/PLAN: normal physiological vaginal discharge, reassured vaginal pain, uncertain etiology check pelvic US declines other STI testing HCG neg, reassured, some menses may be bacteriology research assistant than others Office Visit on 02/10/18 -RAPID [...] MD PROGRESS Observed: 02/09/2018 Status: COMPLETED Source: [place] 5:07 PM [facility] REPOSITORY O ID: [id number] Author: Shruthi Rodrigues Service: (none) Author Type: [...] Doxycycline; Dust Mites; Flagyl [Metronidazole Hcl]; Hand Ends Down Checker [Ethyl Alcohol (Skin Cleanser)]; Iodine; Lactose Intolerance [Lactase]; [place]; Mold; Morphine; Penicillin; Pet Dander [Other]; Prednisone; [...] APRN.CNP CNOV Observed: 02/09/2018 Status: COMPLETED Source: [place] 5:00 PM [facility] REPOSITORY Office Visit (WSTR) ANGELICA ANDUJAR ([id number]) 1980 F Date Time Provider Department 02/09/18 5:00 PM SHRUTHI RODRIGUES (LAURENT) [facility] During your visit today, we recorded the [...] Doxycycline; Dust Mites; Flagyl [Metronidazole Hcl]; Hand Ends Down Checker [Ethyl Alcohol (Skin Cleanser)]; Iodine; Lactose Intolerance [Lactase]; [place]; Mold; Morphine; Penicillin; Pet Dander [Other]; Prednisone; [...] Patient agreeable to treatment plan. Shruthi Rodrigues APRN.LAURENT Elias LPN 02/09/2018 5:18 PM Signed I was present for the physical examination of this patient with provider.Azra Rodrigues APRN.LAURENT 02/09/2018 5:21 PM Signed TINEA CORPORIS (RINGWORM): [...] (METRONIDAZOLE HCL) 06/20/2012 4 - Hives 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 (ETHYL ALCOHOL (SK*11/04/2009 2 - Rash Comments: PT HAS SENSITIVE SKIN. O.K. FOR MEDICAL PROFESSIONAL TO USE 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 AND THEN TOUCH HER, BUT SHE HERSELF DOES NOT USE IT. IODINE 02/18/2011 2 - Rash LACTOSE INTOLERANCE (LACTASE) 11/04/2009 [place] 12/07/2017 10 - Anaphylaxis MOLD 04/26/2012 16 [...] constipation Date Reviewed: 02/09/2018 Reviewed by: Shruthi WardChurch OrganistCarlyn Rodrigues - Fully Assessed Reason for Visit: Rash [...] EMERGENCY DEPARTMENT Observed: 02/03/2018 Status: F Source: [place] SUMMARY 10:53 PM [facility] REPOSITORY [facility] Medical Records Department [address] [place] [address] Emergency Department Summary 02/03/18 1858 MR#: [id number] Acct: [id number] Name: ANGELICA ANDUJAR Rep #: [id number] : 1980 37 From: Juana Christopher MD [...] normal. Urine is normal. Patency test negative. [place] screen is negative. Emergency Department Course and [...] uncertain etiology This note was generated with Edictive dictation software. It may contain incorrect words, spelling, and punctuation that were not noted in review of the chart prior to signing ED Disposition - Plan for ED Patient: Chief Complaint: General Illness Referrals: Mallorie Alexis, CLINICAL SUPPORT NURSE-C [Primary Care Provider] - What to do if you have Problems For any increased pain, shortness of breath, bleeding, nausea or vomiting, chest pain, or any unexpected problems, contact your Primary Care Provider. Call [facility] ([phone]) or report to the closest Emergency Room. Call 911 if necessary. 02/03/18 3623 <Electronically signed by Juana Christopher MD> Date Juana Christopher MD Cosigner Signature (If Indicated): Date CC: Mallorie DE LA TORRE DISCHARGE INSTRUCTION Observed: 02/03/2018 Status: F Source: [place] 7:02 PM [facility] REPOSITORY [facility] Medical Records Department [address] [place] [address] Discharge Instruction 02/03/18 1900 MR#: [id number] Acct: [id number] Name: ANGELICA ANDUJAR Rep #: [id number] : 1980 37 From: Juana Christopher MD PCP: Mallorie Juares Status: REG ER ED Disposition - Plan for ED Patient: Disposition: Home or Assisted Living Chief Complaint: General Illness Instructions: ED Dizziness UKO Prescriptions: Lansoprazole [Prevacid] 15 mg PO DAILY #30 capsule Referrals: Mallorie Alexis, CLINICAL SUPPORT NURSE-C [Primary Care Provider] - As soon as possible What to do if you have Problems For any increased pain, shortness of breath, bleeding, nausea or vomiting, chest pain, or any unexpected problems, contact your Primary Care Provider. Call [facility] ([phone]) or report to the closest Emergency Room. Call 911 if necessary. 02/03/18 1902 <Electronically signed by Juana Christopher MD> Date Juana Christopher MD Cosigner Signature (If Indicated): Date CC: Mallorie CHAPARRO Collected: 02/03/2018 Status: F Source: [place] 6:03 PM [facility] REPOSITORY TYPE CODE TESTS RESULT OUT OF RANGE REFERENCE UNITS LAB L700.5700 Negative Normal MONO Negative Performed By: #### L700.5500 #### [facility] [facility] [place], [address] BEDSIDE GLUCOSE Collected: 02/03/2018 Status: F Source: [place] 5:20 PM [facility] REPOSITORY TYPE CODE TESTS RESULT OUT OF RANGE REFERENCE UNITS LAB L501.080 70-110 mg/dL Normal BEDSIDE GLU 82 Result Comment: MANAGEMENT OF PATIENT CARE PER NURSING PROTOCOL Performed By: #### L501.080 #### [facility] Point of Care [address] [facility] [place] [address] CBC W/DIFF, AUTOMATED Collected: 02/03/2018 Status: F Source: [place] 5:20 PM [facility] REPOSITORY TYPE CODE TESTS RESULT OUT [...] Lymph 1.66 Performed By: #### L100.0100 #### [facility] [address] [place], [place], [address] BASIC METABOLIC Collected: 02/03/2018 Status: F Source: [place] PROFILE (BMP) 5:20 PM [facility] REPOSITORY TYPE CODE TESTS RESULT OUT [...] Performed By: #### L500.2500, L500.3400, L501.2450 #### [facility] [address] [facility] [facility] [place], [place], [id number] LIVER PROFILE Collected: 02/03/2018 Status: F Source: [place] 5:20 PM [facility] REPOSITORY TYPE CODE TESTS RESULT OUT [...] Performed By: #### L500.2500, L500.3400, L501.2450 #### [facility] [address] [place], [address] LIPASE Collected: 02/03/2018 Status: F Source: [place] 5:20 PM [facility] REPOSITORY TYPE CODE TESTS RESULT OUT OF RANGE REFERENCE UNITS LAB L501.2450 73-393 U/L Normal LIPASE 122 Performed By: #### L500.2500, L500.3400, L501.2450 #### [facility] [address] [place], [place], [id number] URINALYSIS, COMPLETE Collected: 02/03/2018 Status: F Source: [place] 5:00 PM [facility] REPOSITORY Order Comment: How was Urine Obtained? [...] AMORPHOUS URATE Performed By: #### L400.0001 #### [facility] [address] [facility] [address] [place], [place], [address] ,URINE Collected: 02/03/2018 Status: F Source: [place] 5:00 PM [facility] REPOSITORY TYPE CODE TESTS RESULT OUT OF REFERENCE UNITS RANGE LAB L400.8000 Negative Normal HCGUQUAL Negative Result Comment: Very dilute urine specimens, as indicated by a low specific gravity, may not contain tour sales representative levels of hCG. If is still suspected, a first morning urine specimen should be collected 48 hours later and tested. Performed By: #### L400.7600 #### [facility] [address] [place], [address] EMERGENCY DEPARTMENT Observed: 02/01/2018 Status: F Source: [place] SUMMARY 11:33 PM [facility] REPOSITORY [facility] Medical Records Department [address] [place] [address] Emergency Department Summary 02/01/18 1828 MR#: [id number] Acct: [id number] Name: ANGELICA ANDUJAR Rep #: [id number] : 1980 37 From: Stephan Witt MD [...] Medication nonadherence This note was generated with Declaraation software. It may contain incorrect words, spelling, and punctuation that were not noted in review of the chart prior to signing ED Disposition - Plan for ED Patient: Chief Complaint: Shortness of Breath Referrals: Mallorie Alexis, CLINICAL SUPPORT NURSE-C [Primary Care Provider] - What to do if you have Problems For any increased pain, shortness of breath, bleeding, nausea or vomiting, chest pain, or any unexpected problems, contact your Primary Care Provider. Call [facility] ([phone]) or report to the closest Emergency Room. Call 911 if necessary. 02/01/18 5593 <Electronically signed by Stephan Witt MD> Date Stephan Witt MD Cosigner Signature (If Indicated): Date CC: Mallorie DE LA TORRE DISCHARGE INSTRUCTION Observed: 02/01/2018 Status: F Source: [place] 11:33 PM [facility] REPOSITORY [facility] Medical Records Department [address] [place] [address] Discharge Instruction 02/01/182003 MR#: [id number] Acct: [id number] Name: ANGELICA ANDUJAR Rep #: [id number] : 1980 37 From: Stephan Witt MD PCP: Mallorie Juares Status: DEP ER ED Disposition - Plan for ED Patient: Chief Complaint: Shortness of Breath Instructions: Allergy Medications Prescriptions: Cetirizine HCl [Zyrtec] 10 mg PO DAILY #30 tab Referrals: Mallorie Alexis, CLINICAL SUPPORT NURSE-C [Primary Care Provider] - Additional Instructions: follow up with crisis counselor What to do if you have Problems For any increased pain, shortness of breath, bleeding, nausea or vomiting, chest pain, or any unexpected problems, contact your Primary Care Provider. Call [facility] ([phone]) or report to the closest Emergency Room. Call 911 if necessary. 02/01/18 2333 <Electronically signed by Stephan Witt MD> Date Stephan Witt MD Cosigner Signature (If Indicated): Date CC: Mallorie DE LA TORRE CHEST 1 VIEW Observed: 02/01/2018 Status: F Source: [place] (PORTABLE) 6:27 PM [facility] REPOSITORY [facility] Imaging Services [address] [place] [address] Chest 1 View (Portable) MR#: [id number] Acct: [id number] Name: ANGELICA ANDUJAR Rep #: [id number] : 1980 F 37 From: Tommie Hay DO PCP: Mallorie Juares Status: REG ER Study: Chest 1 View (Portable) Date of Exam: 02/01/18 Exam# [id number] Ordering Dr: Stephan Witt MD STUDY: X-RAY [...] Tommie Hay DO at 19:26 EDT Tel [phone], Service support , CC: Stephan Witt MD; Mallorie DE LA TORRE Woolen Suiting Shrinker: Signed EMERGENCY DEPARTMENT Observed: 01/30/2018 Status: F Source: [place] SUMMARY 11:35 PM [facility] REPOSITORY [facility] Medical Records Department [address] [place] [address] Emergency Department Summary 01/30/18 1752 MR#: [id number] Acct: [id number] Name: ANGELICA ANDUJAR Rep #: [id number] : 1980 37 From: Yariel Hilton MD [...] Heat illness This note was generated with Declaraation software. It may contain incorrect words, spelling, [...] your Primary Care Provider. Call [facility] ([phone]) or report to the closest Emergency Room. Call 911 if necessary. 01/30/18 5001 <Electronically signed by Yariel Hilton MD> Date Yariel Hilton MD Cosigner Signature (If Indicated): Date CC: Mallorie DE LA TORRE CBC W/DIFF, AUTOMATED Collected: 01/30/2018 Status: F Source: [place] 6:20 PM [facility] REPOSITORY TYPE CODE TESTS RESULT OUT [...] Lymph 1.47 Performed By: #### L100.0100 #### [facility] [address] [place], [place] [address]all [facility]. [place], [place], [address] BASIC METABOLIC Collected: 01/30/2018 Status: F Source: [place] PROFILE (BMP) 6:20 PM [facility] REPOSITORY TYPE CODE TESTS RESULT OUT [...] GAP 6 Performed By: #### L500.2500 #### [facility] [address] [place], [address] PROGRESS Observed: 01/23/2018 Status: COMPLETED Source: [place] 3:02 PM [facility] REPOSITORY HNO ID: [id number] Author: Win Krishnabanneragueda Service: (none) Author Type: Physician Type: Progress [...] cockroaches - Flagyl [Metronidazo* Hives - Hand Ends Down Checker [Eth* Rash PT HAS SENSITIVE SKIN. O.K. FOR MEDICAL PROFESSIONAL TO USE 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 AND THEN TOUCH HER, BUT SHE HERSELF DOES NOT USE IT. - Iodine Rash - Lactose Intolerance* - [place] Anaphylaxis - Mold Unknown - Morphine Itching [...] PM. CNOV Observed: 01/23/2018 Status: COMPLETED Source: [place] 2:40 PM [facility] REPOSITORY Office Visit (FAMPWS) ANGELICA ANDUJAR ([id number]) 1980 F Date Time Provider Department 01/23/18 2:40 PM [facility] your visit today, we recorded the [...] cockroaches - Flagyl [Metronidazo* Hives - Hand Ends Down Checker [Eth* Rash PT HAS SENSITIVE SKIN. O.K. FOR MEDICAL PROFESSIONAL TO USE 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 AND THEN TOUCH HER, BUT SHE HERSELF DOES NOT USE IT. - Iodine Rash - Lactose Intolerance* - [place] Anaphylaxis - Mold Unknown - Morphine Itching [...] (METRONIDAZOLE HCL) 06/20/2012 4 - Hives 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 (ETHYL ALCOHOL (SK*11/04/2009 2 - Rash Comments: PT HAS SENSITIVE SKIN. O.K. FOR MEDICAL PROFESSIONAL TO USE 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 AND THEN TOUCH HER, BUT SHE HERSELF DOES NOT USE IT. IODINE 02/18/2011 2 - Rash LACTOSE INTOLERANCE (LACTASE) 11/04/2009 [place] 12/07/2017 10 - Anaphylaxis MOLD 04/26/2012 16 [...] Rib pain [R07.81] Order(s):XR CHEST 2V FRONTAL/LAT [[id number]] Order #: [id number] FUTURE MARGUERITE SCREENING [[id number]] Order #: [id number] FUTURE Prescriptions as of 01/23/2018 Sig: FOLIC [...] 01/23/18 PROGRESS Observed: 01/19/2018 Status: COMPLETED Source: [place] 4:31 PM [facility] REPOSITORY HNO ID: [id number] Author: Ian Ying Service: (none) Author Type: [...] showed no problems. She presents to the [facility] primarily for second opinion about abdominal and pain in the side of the ribs. Seen also in the ER for left arm pain 3 weeks ago at [place]. Positive symptoms: Cough, Chest pain, irritated throat, [...] cockroaches - Flagyl [Metronidazo* Hives - Hand Ends Down Checker [Eth* Rash PT HAS SENSITIVE SKIN. O.K. FOR MEDICAL PROFESSIONAL TO USE 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 AND THEN TOUCH HER, BUT SHE HERSELF DOES NOT USE IT. - Iodine Rash - Lactose Intolerance* - [place] Anaphylaxis - Mold Unknown - Morphine Itching [...] MD CNOV Observed: 01/19/2018 Status: COMPLETED Source: [place] 3:45 PM [facility] REPOSITORY Office Visit (WSTR) ANGELICA ANDUJAR ([id number]) 1980 F Date Time Provider Department 01/19/18 3:45 PM [facility] During your visit today, we recorded the [...] showed no problems. She presents to the [facility] primarily for second opinion about abdominal and pain in the side of the ribs. Seen also in the ER for left arm pain 3 weeks ago at [place]. Positive symptoms: Cough, Chest pain, irritated throat, [...] cockroaches - Flagyl [Metronidazo* Hives - Hand Ends Down Checker [Eth* Rash PT HAS SENSITIVE SKIN. O.K. FOR MEDICAL PROFESSIONAL TO USE 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 AND THEN TOUCH HER, BUT SHE HERSELF DOES NOT USE IT. - Iodine Rash - Lactose Intolerance* - [place] Anaphylaxis - Mold Unknown - Morphine Itching [...] (METRONIDAZOLE HCL) 06/20/2012 4 - Hives 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 (ETHYL ALCOHOL (SK*11/04/2009 2 - Rash Comments: PT HAS SENSITIVE SKIN. O.K. FOR MEDICAL PROFESSIONAL TO USE 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 AND THEN TOUCH HER, BUT SHE HERSELF DOES NOT USE IT. IODINE 02/18/2011 2 - Rash LACTOSE INTOLERANCE (LACTASE) 11/04/2009 [place] 12/07/2017 10 - Anaphylaxis MOLD 04/26/2012 16 [...] on file. Cosign accepted by WIN MEJIA MD[[id number]] on 10/29/2016 3:13 PM olopatadine (PATANOL) 0.1 [...] LEAD ELECTROCARDIOGRAM Observed: 01/17/2018 Status: F Source: [place] 1:14 PM [facility] REPOSITORY [facility] Cardiovascular Services [address] [place] [address] 12 Lead EKG 01/14/18 1529 MR#: [id number] Acct: [id number] Name: ANGELICA ANDUJAR Rep #: [id number] : 1980 37 From: Vidal Lepe MD [...] T wave abnormality Abnormal ECG Confirmed by VIDAL LEPE MD ([id number]), production editor МАРИНА BRAR ([id number]) on 01/17/2018 1:13:30 PM Referred By: CARY Confirmed By:VIDAL LEPE MD 01/17/18 1313 Date Vidal Lepe MD CC: Raulito Muhammad MD; [facility] Signed 12 LEAD ELECTROCARDIOGRAM Observed: 01/17/2018 Status: F Source: [place] 1:14 PM [facility] Cardiovascular Services [address] [place] [address] 12 Lead EKG 01/14/18 1545 MR#: [id number] Acct: [id number] Name: ANGELICA ANDUJAR Rep #: [id number] : 1980 37 From: Vidal Lepe MD [...] ECG Confirmed by GABRIEL KHAN, VIDAL ([id number]), production editor МАРИНА BRAR ([id number]) on 01/17/2018 1:13:45 PM Referred By: CARY Confirmed By:VIDAL LEPE MD 01/17/18 1313 Date Vidal Lepe MD CC: Raulito Muhammad MD; [facility] Signed DISCHARGE INSTRUCTION Observed: 01/14/2018 Status: F Source: [place] 8:25 PM [facility] Medical Records Department [address] [place] [address] Discharge Instruction 01/14/184 MR#: [id number] Acct: [id number] Name: ANGELICA ANDUJAR Rep #: [id number] : 1980 37 From: Raulito Muhammad MD PCP: SAMANTHA BEJARANO Status: REG ER ED Disposition - Plan for ED Patient: Chief Complaint: Abd Pain Instructions: ED Depression, ED Stress React Referrals: Samantha Shields [Primary Care Provider] - Counseling,Center [GROUP OF PHYSICIANS] - What to do if you have Problems For any increased pain, shortness of breath, bleeding, nausea or vomiting, chest pain, or any unexpected problems, contact your Primary Care Provider. Call [facility] ([phone]) or report to the closest Emergency Room. Call 911 if necessary. 01/14/182024 <Electronically signed by Raulito Muhammad MD> Date Raulito Muhammad MD Cosigner Signature (If Indicated): Date CC: SAMANTHA BEJARANO EMERGENCY DEPARTMENT Observed: 01/14/2018 Status: F Source: [place] SUMMARY 8:24 PM [facility] REPOSITORY [facility] Medical Records Department [address] [place] [address] Emergency Department Summary 01/14/18 1839 MR#: [id number] Acct: [id number] Name: ANGELICA ANDUJAR Rep #: [id number] : 1980 37 From: Raulito Muhammad MD PCP: SAMANTHA BEJARANO Status: REG ER ADDENDUM by Raulito Muhammad MD on 01/14/18 at 202 Crisis evaluated the patient here in the emergency department. He was able to obtain further history. The patient states that she did in fact chief of planning front of a vehicle traveling at very low speed but that she was not suicidal and that she did this for adrenaline chahal. The patient has scheduled outpatient follow-up with psychiatry. The counselor will give the patient a ride home. He does not feel that she meets admission criteria. Date Raulito Muhammad MD cc: SAMANTHA [facility] * Signed - ER Visit [...] Suicidal ideation This note was generated with Edictive dictation software. It may contain incorrect words, [...] your Primary Care Provider. Call [facility] ([phone]) or report to the closest Emergency Room. Call 911 if necessary. 01/14/18 5392 <Electronically signed by Raulito Muhammad MD> Date Raulito Muhammad MD Cosigner Signature (If Indicated): Date CC: SAMANTHA MENON [facility] CHEST PA AND LATERAL Observed: 01/14/2018 Status: F Source: [place] 4:59 PM [facility] REPOSITORY [facility] Imaging Services [address] [place] [address] Chest PA and Lateral MR#: [id number] Acct: [id number] Name: ANGELICA ANDUJAR Rep #: [id number] : 1980 F 37 From: John Lincoln MD PCP: SAMANTHA BEJARANO Status: REG ER Study: Chest PA and Lateral Date of Exam: 01/14/18 Exam# [id number] Ordering Dr: Raulito Muhammad MD STUDY: X-RAY [...] , CC: Raulito Muhammad MD; SAM[facility]THA [facility]OD [facility] Woolen Suiting Shrinker: Signed CBC W/DIFF, AUTOMATED Collected: 01/14/2018 Status: F Source: [place] 3:40 PM [facility] REPOSITORY TYPE CODE TESTS RESULT OUT [...] Lymph 1.43 Performed By: #### L100.0100 #### [facility] [address] [place], [place], [address] COMPREHENSIVE METABOLIC Collected: 01/14/2018 Status: F Source: [facility] 3:40 PM [facility] REPOSITORY TYPE CODE TESTS RESULT OUT [...] 9 Performed By: #### L500.4050, L501.2450 #### [facility] [address] [facility] [place], [address] LIPASE Collected: 01/14/2018 Status: F Source: [place] 3:40 PM [facility] REPOSITORY TYPE CODE TESTS RESULT OUT OF RANGE REFERENCE UNITS LAB L501.2450 73-393 U/L Normal LIPASE 78 Performed By: #### L500.4050, L501.2450 #### [facility] [address] [place] [place], [address] ,SERUM,HCG QUALI. Collected: Status: F Source: [place] 01/14/2018 3:40 PM [facility] REPOSITORY TYPE CODE TESTS RESULT OUT OF REFERENCE UNITS RANGE LAB L700.7000 0-9 Nonpreg Negative Normal HCGSQUAL NEGATIVE LAB L700.6700 =>Qualitative mIU/mL Normal HCG Qual < 1 triggr Performed By: #### L700.6800 #### [facility] [address] [place] [place], [address] ALCOHOL, BLOOD Collected: 01/14/2018 Status: F Source: [place] (MEDICAL)-SERUM 3:40 PM [facility] REPOSITORY TYPE CODE TESTS RESULT OUT [...] fatal coma Performed By: #### L501.9100 #### [facility] [address] [place], [place], [address] URINE DRUG SCREEN Collected: 01/14/2018 Status: F Source: [place] ([place]) 3:35 PM [facility] REPOSITORY TYPE CODE TESTS RESULT OUT [...] Normal NEGATIVE Performed By: #### L505.5000 #### [facility] [address] [place], [address] URINALYSIS, COMPLETE Collected: 01/14/2018 Status: F Source: [place] 3:35 PM [facility] REPOSITORY Order Comment: Order Date: 01/14/18 How [...] URINE SEEN Performed By: #### L400.0001 #### [facility] [address] [place], [address] EMERGENCY DEPARTMENT Observed: 01/13/2018 Status: F Source: [place] SUMMARY 11:50 PM [facility] REPOSITORY [facility] Medical Records Department [address] [place] [address] Emergency Department Summary 01/13/18 2307 MR#: [id number] Acct: [id number] Name: ANGELICA ANDUJAR Rep #: [id number] : 1980 37 From: Tameka Beckman DO PCP: SAMANTHA [facility]OD [facility] Status: DEP ER - ER Visit [...] unknown etiology This note was generated with Edictive dictation software. It may contain incorrect words, [...] your Primary Care Provider. Call [facility] ([phone]) or report to the closest Emergency Room. Call 911 if necessary. 01/13/18 0580 <Electronically signed by Tameka Beckman DO> Date Tameka Beckman DO Cosigner Signature (If Indicated): Date CC: SAMANTHA [facility]OD [facility] DISCHARGE INSTRUCTION Observed: 01/13/2018 Status: F Source: [place] 11:13 PM [facility] REPOSITORY [facility] Medical Records Department [address] [place] [address] Discharge Instruction 01/13/18 2311 MR#: [id number] Acct: [id number] Name: ANGELICA ANDUJAR Rep #: [id number] : 1980 37 From: Tameka Beckman DO [...] your Primary Care Provider. Call [facility] ([phone]) or report to the closest Emergency Room. Call 911 if necessary. 01/13/18 1313 <Electronically signed by Tameka Beckman DO> Date Tameka Beckman DO Cosigner Signature (If Indicated): Date CC: SAMANTHA BEJARANO CBC W/DIFF, AUTOMATED Collected: 01/13/2018 Status: F Source: [place] 9:30 PM [facility] REPOSITORY TYPE CODE TESTS RESULT OUT [...] Lymph 2.25 Performed By: #### L100.0100 #### [facility] [address] [place], [address] COMPREHENSIVE METABOLIC Collected: 01/13/2018 Status: F Source: [facility] 9:30 PM [facility] REPOSITORY TYPE CODE TESTS RESULT OUT [...] 6 Performed By: #### L500.4050, L501.2450 #### [facility] [address] [place], [address] LIPASE Collected: 01/13/2018 Status: F Source: [place] 9:30 PM [facility] REPOSITORY TYPE CODE TESTS RESULT OUT OF RANGE REFERENCE UNITS LAB L501.2450 73-393 U/L Normal LIPASE 80 Performed By: #### L500.4050, L501.2450 #### [facility] [address] [place], [address] ,SERUM,HCG QUALI. Collected: Status: F Source: [place] 01/13/2018 9:30 PM [facility] REPOSITORY TYPE CODE TESTS RESULT OUT OF REFERENCE UNITS RANGE LAB L700.7000 0-9 Nonpreg Negative Normal HCGSQUAL NEGATIVE LAB L700.6700 =>Qualitative mIU/mL Normal HCG Qual < 1 triggr Performed By: #### L700.6800 #### [facility] [place], [address] ABDOMEN/PELVIS W IV CONT Observed: 01/13/2018 Status: F Source: [place] ONLY 9:19 PM [facility] REPOSITORY [facility] Imaging Services [address] [place] [address] Abdomen/Pelvis W IV Cont ONLY MR#: [id number] Acct: [id number] Name: ANGELICA ANDUJAR Rep #: [id number] : 1980 F 37 From: John Lincoln MD PCP: [facility]THA [facility] Status: REG ER Study: Abdomen/Pelvis W IV Cont ONLY Date of Exam: 01/13/18 Exam# [id number] Ordering Dr: Tameka Beckman DO STUDY: CT [...] 23:05 EDT , Service support , CC: DIANDRA Sellers [facility] Woolen Suiting Shrinker: Gus MUÑOZ Observed: 01/03/2018 Status: COMPLETED Source: [place] 12:00 AM [facility] REPOSITORY Letter Text Angelica Andujar Allergy AND Clinical Immunology [facility] [address] [place] [address], [facility] [address] [place] [address] January 03, 2018 Dear Angelica Andujar, Below [...] Setting. The codes are as follows: CPT 06177 - Skin Testing - Percutaneous Allergen Extracts CPT 18782 - Skin Testing - Intradermal Allergen Extracts If you are scheduled for the following breathing tests: CPT 61126 - Spirometry - Pre-bronchodilator CPT 39575 - Spirometry - Post-bronchodilator CPT 14770 - Exhaled Nitric Oxide CPT 02433 - Penicillin Testing Your health insurance plan [...] Sincerely, Department of Allergy AND Clinical Immunology [facility] Instructions for Your Appointment If you [...] EMERGENCY DEPARTMENT Observed: 12/15/2017 Status: F Source: [place] SUMMARY 1:41 AM [facility] REPOSITORY [facility] Medical Records Department [address] [place] [address] Emergency Department Summary 12/14/17 1852 MR#: [id number] Acct: [id number] Name: ANGELICA ANDUJAR Rep #: [id number] : 1980 37 From: Jose G Iqbal MD PCP: Mallorie Juares Status: DEP ER - ER Visit Summary Date of Service: 12/14/17 Chief Complaint: Headache and nasal pain History of Present Illness: The patient is a 37 F who goes to the [facility]. Patient reports that she has pain [...] placed on Flonase. Instructed to follow-up the [facility] in 1 week if not improving. Disposition: To home in improved and stable condition. Impression: 1. Cephalgia, acute. This note was generated with Edictive dictation software. It may contain incorrect words, spelling, and punctuation that were not noted in review of the chart prior to signing ED Disposition - Plan for ED Patient: Disposition: Home or Assisted Living Chief Complaint: Other, Pain/Inj Instructions: ED Cephalgia Unspecified Prescriptions: Fluticasone 0.05% [Flonase Nasal Gray] 1 spray NASAL DAILY #1 bottle Referrals: Mallorie Alexis, CLINICAL SUPPORT NURSE-C [Primary Care Provider] - 1 Week if not improving What to do if you have Problems For any increased pain, shortness of breath, bleeding, nausea or vomiting, chest pain, or any unexpected problems, contact your Primary Care Provider. Call [facility] ([phone]) or report to the closest Emergency Room. Call 911 if necessary. 12/15/17 0141 <Electronically signed by Jose G Iqbal MD> Date Jose G Iqbal MD Cosigner Signature (If Indicated): Date CC: Mallorie [place] SINUS/FACIAL BONE Observed: 12/14/2017 Status: F Source: [place] 5:29 [facility] REPOSITORY [facility] Imaging Services [address] [place] [address] Sinus/Facial Bone MR#: [id number] Acct: [id number] Name: ANGELICA ANDUJAR Rep #: [id number] : 1980 F 37 From: Derrick James MD PCP: Mallorie Juares Status: REG ER Study: Sinus/Facial Bone Date of Exam: 12/14/17 Exam# [id number] Ordering Dr: Jose G Iqbal MD STUDY: [...] DE LA TORRE; Jose G Iqbal MD Woolen Suiting Shrinker: Signed URINALYSIS, COMPLETE Collected: 12/14/2017 Status: F Source: [place] 4:00 PM [facility] REPOSITORY Order Comment: How was Urine Obtained? [...] URINE SEEN Performed By: #### L400.0001 #### [facility] [address] [place], [address] PROGRESS Observed: 12/07/2017 Status: COMPLETED Source: [place] 11:56 AM [facility] [place] REPOSITORY HNO ID: [id number] Author: Dina Patterson (Wolf) Jonnie Service: (none) Author Type: Nurse Practitioner Type: [...] Doxycycline; Dust Mites; Flagyl [Metronidazole Hcl]; Hand Ends Down Checker [Ethyl Alcohol (Skin Cleanser)]; Iodine; Lactose Intolerance [Lactase]; [place]; Mold; Morphine; Penicillin; Prednisone; Seasonal Allergies; Singulair [...] Patient agreeable to treatment plan. Dina Cristina APRN.DISTRIBUTION CENTER ASSISTANT CNOV Observed: 12/07/2017 Status: COMPLETED Source: [place] 11:00 AM [facility] REPOSITORY Office Visit (WSTR) ANGELICA ANDUJAR ([id number]) 1980 F Date Time Provider Department 12/07/17 11:00 AM DINA CRISTINA (CLINICAL SUPPORT NURSE) [facility] During your visit today, we recorded the following information about you: Temperature Pulse Respiration Blood pressure 96.9 degrees 74/minute 14/minute 100/60 Weight 90.7 kg Dina Cristina APRN.DISTRIBUTION CENTER ASSISTANT 12/07/2017 12:36 PM Signed Subjective HPI Patient [...] Doxycycline; Dust Mites; Flagyl [Metronidazole Hcl]; Hand Ends Down Checker [Ethyl Alcohol (Skin Cleanser)]; Iodine; Lactose Intolerance [Lactase]; [place]; Mold; Morphine; Penicillin; Prednisone; Seasonal Allergies; Singulair [...] symptoms occur. Patient agreeable to treatment plan. OSVALDO Rousseau APRN.CNP 12/07/2017 12:06 PM Signed Each of [...] (METRONIDAZOLE HCL) 06/20/2012 4 - Hives 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 (ETHYL ALCOHOL (SK*11/04/2009 2 - Rash Comments: PT HAS SENSITIVE SKIN. O.K. FOR MEDICAL PROFESSIONAL TO USE 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 AND THEN TOUCH HER, BUT SHE HERSELF DOES NOT USE IT. IODINE 02/18/2011 2 - Rash LACTOSE INTOLERANCE (LACTASE) 11/04/2009 [place] 12/07/2017 10 - Anaphylaxis MOLD 04/26/2012 16 [...] Disposition History Recorded Letter Text Dina Cristina APRN.[facility] Urgent Care [address] [facility] [address] Dept: [phone] 12/07/2017 Angelica Andujar [address] [facility] [address] [facility] [address] To Whom it May Concern: This is to certify that Kathy Baker was seen at our office for medical care. Angelica may return to work on 12/08/2017. If you have any questions please feel free to call. Sincerely: Dina Cristina APRN.[facility] Encounter Status:Closed by DINA CRISTINA on 12/07/17 CNCO Observed: 11/15/2017 Status: COMPLETED Source: [place] 12:00 AM [facility] REPOSITORY Letter Text Angelica Andujar Allergy AND Clinical Immunology [facility] [address] [place] [address], [address] [place] [address] November 15, 2017 Dear Angelica Andujar, Below [...] Setting. The codes are as follows: CPT 74739 - Skin Testing - Percutaneous Allergen Extracts CPT 08143 - Skin Testing - Intradermal Allergen Extracts If you are scheduled for the following breathing tests: CPT 03473 - Spirometry - Pre-bronchodilator CPT 81000 - Spirometry - Post-bronchodilator CPT 94037 - Exhaled Nitric Oxide CPT 16333 - Penicillin Testing Your health insurance plan [...] Sincerely, Department of Allergy AND Clinical Immunology [facility] Instructions for Your Appointment If you [...] EMERGENCY DEPARTMENT Observed: 10/27/2017 Status: F Source: [place] SUMMARY 3:46 PM [facility] REPOSITORY [facility] Medical Records Department [address] [place] [address] Emergency Department Summary 10/27/17 1341 MR#: [id number] Acct: [id number] Name: ANGELICA ANDUJAR Rep #: [id number] : 1980 36 From: Main Bledsoe MD [...] chronic depression This note was generated with Edictive dictation software. It may contain incorrect words, [...] your Primary Care Provider. Call [facility] ([phone]) or report to the closest Emergency Room. Call 911 if necessary. 10/27/17 1544 <Electronically signed by Main Bledsoe MD> Date Main Bledsoe MD Cosigner Signature (If Indicated): Date CC: Mallorie DE [place]OR[place] DISCHARGE INSTRUCTION Observed: 10/27/2017 Status: F Source: [place] 3:45 PM [facility] REPOSITORY [facility] Medical Records Department [address] [place] [address] Discharge Instruction 10/27/17 1452 MR#: [id number] Acct: [id number] Name: ANGELICA ANDUJAR Rep #: [id number] : 1980 36 From: Main Bledsoe MD PCP: Mallorie Juares Status: DEP ER ED Disposition - Plan for ED Patient: Disposition: Home or Assisted Living Chief Complaint: Abd Pain Instructions: ED Abdominal Pain Unkn Cause Referrals: Katharina Bejarano,Samantha Hood [NON-STAFF] - 3-5 Days if not improving Additional Instructions: Call and follow-up with your primary care physician. What to do if you have Problems For any increased pain, shortness of breath, bleeding, nausea or vomiting, chest pain, or any unexpected problems, contact your Primary Care Provider. Call [facility] ([phone]) or report to the closest Emergency Room. Call 911 if necessary. 10/27/17 1545 <Electronically signed by Main Bledsoe MD> Date Main Bledsoe MD Cosigner Signature (If Indicated): Date CC: Mallorie DE LA TORRE URINALYSIS, COMPLETE Collected: 10/27/2017 Status: F Source: [place] 2:00 PM [facility] REPOSITORY Order Comment: Order Date: 10/27/17 How was Urine Obtained? MEDIA LIAISON OFFICER TO SPECIFY TYPE CODE TESTS RESULT OUT [...] URINE SEEN Performed By: #### L400.0001 #### [facility] [address] [place], [address] ,URINE Collected: 10/27/2017 Status: F Source: [place] 2:00 PM [facility] REPOSITORY Order Comment: Order Date: 10/27/17 TYPE CODE TESTS RESULT OUT OF REFERENCE UNITS RANGE LAB L400.8000 Negative Normal HCGUQUAL Negative Result Comment: Very dilute urine specimens, as indicated by a low specific gravity, may not contain tour sales representative levels of hCG. If is still suspected, a first morning urine specimen should be collected 48 hours later and tested. Performed By: #### L400.7600 #### [facility] [address] [place] [place], [address] CNCO Observed: 10/25/2017 Status: COMPLETED Source: [place] 12:00 AM [facility] REPOSITORY Letter Text Candie Elliott MD [facility] [place] [address] Angelica Andujar October 25, 2017 Angelica Andujar [address] [facility] [address] Dear Ms. Andujar, It was noted that [...] EMERGENCY DEPARTMENT Observed: 10/10/2017 Status: F Source: [place] SUMMARY 9:04 PM [facility] REPOSITORY [facility] Medical Records Department [address] [place] [address], [place] [address] Emergency Department Summary 10/10/17 1642 MR#: [id number] Acct: [id number] Name: ANGELICA ANDUJAR Rep #: [id number] : 1980 36 From: Jose G Iqbal MD PCP: [facility] Status: DEP ER - ER Visit Summary Date of Service: 10/10/17 Chief Complaint: Headache History of Present Illness: The patient is a 36 F [facility] She reports that she has a headache [...] is instructed to push fluids. [facility]. Disposition: To home in improved and stable condition. Impression: 1. Cephalgia. This note was generated with Edictive dictation software. It may contain incorrect words, spelling, and punctuation that were not noted in review of the chart prior to signing ED Disposition - Plan for ED Patient: Chief Complaint: Headache Instructions: ED Cephalgia Unspecified Prescriptions: Ondansetron [Zofran Odt] 4 mg PO Q8H PRN PRN #10 tablet PRN Reason: Nausea Referrals: [facility],Samantha Hood [Primary Care Provider] - 1 Week if not improving What to do if you have Problems For any increased pain, shortness of breath, bleeding, nausea or vomiting, chest pain, or any unexpected problems, contact your Primary Care Provider. Call [facility] ([phone]) or report to the closest Emergency Room. Call 911 if necessary. 10/10/172103 <Electronically signed by Jose G Iqbal MD> Date Jose G Iqbal MD Cosigner Signature (If Indicated): Date CC: [facility] URINALYSIS, COMPLETE Collected: 10/10/2017 Status: F Source: [place] 4:40 PM [facility] REPOSITORY Order Comment: Order Date: 10/10/17 How was Urine Obtained? MEDIA LIAISON OFFICER TO SPECIFY TYPE CODE TESTS RESULT OUT [...] URINE SEEN Performed By: #### L400.0001 #### [facility] [address] [facility] [place], [address] ,URINE Collected: 10/10/2017 Status: F Source: [place] 4:40 PM [facility] REPOSITORY Order Comment: Order Date: 10/10/17 TYPE CODE TESTS RESULT OUT OF REFERENCE UNITS RANGE LAB L400.8000 Negative Normal HCGUQUAL Negative Result Comment: Very dilute urine specimens, as indicated by a low specific gravity, may not contain tour sales representative levels of hCG. If is still suspected, a first morning urine specimen should be collected 48 hours later and tested. Performed By: #### L400.7600 #### [facility] [address] [place], [address] BRAIN/HEAD WITHOUT Observed: 10/10/2017 Status: F Source: [place] CONTRAST 4:11 PM [facility] REPOSITORY [facility] Imaging Services [address] [place] [address] Brain/Head without Contrast MR#: [id number] Acct: [id number] Name: ANGELICA ANDUJAR Rep #: [id number] : 1980 F 36 From: Марина Kirkland MD PCP: [facility] Status: REG ER Study: Brain/Head without Contrast Date of Exam: 10/10/17 Exam# [id number] Ordering Dr: Jose G Iqbal MD CT Head or Brain W/O Contrast INDICATION: MIGRAINE X2 WEEKS COMPARISON: None TECHNIQUE: Noncontrast axial CT examination of the brain. Radiation dose optimization applied. FINDINGS: The ventricular system is normal in size and symmetric. The cortical sulci, sylvian fissures, and basal cisterns are well seen. The crooks- white matter junction is distinct. There is [...] CC: Jose G Iqbal MD; [facility] Woolen Suiting Shrinker: Signed ALLERGIES ALLERGIES DATE TYPE / CODE NAME / CODE REACTION SEVERITY SOURCE Drug Penicillins/F0010 Unknown Unknown [place] 9 Allergy/603394137( [address]77(RXNORM) [facility] Repository Drug Latex, Natural Rash Unknown [place] 9 Allergy/133847603( Rubber/[id number] [facility]) (RXNORM) Hospital Repository Drug morphine/[id number] Other Unknown [place] 9 Allergy/146054175( 45(RXNORM) [facility] Hospital Repository Drug prednisone/T37902 Other Unknown [place] 9 Allergy/639351603( 2164(RXNORM) [facility] SNOMED CT) Hospital Repository Drug clindamycin/F0060 Nausea/Vom/Diar Unknown [place] 9 Allergy/939901434( 81003(RXNORM) arden [facility] SNOMED CT) Hospital Repository Drug metronidazole/F00 Hives Unknown [place] 9 Allergy/942466993( 6202243(RXNORM) [facility] SNOMED CT) Hospital Repository Drug influenza virus Other Unknown [place] Allergy/168724771( vaccine, [facility]) specific/P3617634 Hospital 29(RXNORM) Repository Drug meloxicam/E488741 Other Unknown [place] 9 Allergy/875075980( 272(RXNORM) [facility] SNOMED CT) Hospital Repository Drug montelukast/F0060 Rash Unknown [place] Allergy/170394996( 84748(RXNORM) [facility] SNOMED CT) Hospital Repository Miscellaneous ANTIBACTERIAL Hives Unknown [place] Allergy/727568170( SOAP [facility] SNOMED CT) Hospital Repository Miscellaneous 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 Hives Unknown [place] 9 Allergy/439749371( [facility]) Hospital Repository Miscellaneous SEASONAL Other Unknown [place] 9 Allergy/680523113( ALLERGIES [facility] SNOMED CT) Hospital Repository Drug [place]/Q002835511(R Anaphylaxis Unknown [place] 9 Allergy/851867806( XNORM) [facility] SNOMED CT) Hospital Repository DRUG MELOXICAM UNKNOWN [place] INGREDI/092390364( [facility] SNOMED [facility]) [place] Repository DRUG METRONIDAZOLE HIVES [place] INGREDI/889682678( [facility] SNOMED CT) [place] Repository DRUG CLINDAMYCIN GI UPSET [place] 8 INGREDI/066722484( [facility] SNOMED CT) [place] Repository Drug LATEX, NATURAL RASH [place] 8 Class/157705181(SN RUBBER [facility] OMED CT) [place] Repository DRUG [place] ANAPHYLAXIS [place] 8 INGREDI/201643137( [facility] SNOMED CT) [place] Repository DRUG MONTELUKAST UNKNOWN [place] 8 INGREDI/[id number]( Clinic Main SNOMED CT) [place] [facility] DRUG PENICILLIN UNKNOWN [place] 6 INGREDI/220047105( [facility] Main SNOMED CT) [place] [facility] DRUG DOXYCYCLINE GI UPSET [place] 3 INGREDI/982381139( [facility] Main SNOMED CT) [place] [facility] DRUG BENZETHONIUM RASH [place] 3 INGREDI/878866882( CHLORIDE Clinic Main SNOMED CT) [place] [facility] DRUG BENZALKONIUM OTHER: SEE C [place] 3 INGREDI/766127571( CHLORIDE Clinic Main SNOMED CT) [place] [facility] DRUG PREDNISONE OTHER: SEE C [place] 2 INGREDI/216338748( Clinic Main SNOMED CT) [place] [facility] DRUG METRONIDAZOLE HCL HIVES [place] 2 INGREDI/230602654( Clinic Main SNOMED CT) [place] [facility] Environ/315689692( TREES OTHER: SEE C [place] [address]) Clinic Main [place] [facility] Environ/728553363( DUST MITES UNKNOWN [place] [address]) Clinic Main [place] [facility] DRUG MOLD UNKNOWN [place] 2 INGREDI/470467306( Clinic Main SNOMED CT) [place] [facility] Miscellaneous OTHER UNKNOWN [place] 2 Allergy/693356347( Clinic Main SNOMED CT) [place] [facility] DRUG MORPHINE ITCHING [place] 1 INGREDI/252095740( Clinic Main SNOMED CT) [place] [facility] DRUG/776794495(SNO ONDANSETRON HCL OTHER: SEE C [place] [address]) (PF) Clinic Main [place] [facility] DRUG IODINE RASH [place] 1 INGREDI/492308676( Clinic Main SNOMED CT) [place] [facility] DRUG SODIUM LAURYL RASH [place] 1 INGREDI/222818087( SULFATE Clinic Main SNOMED CT) [place] [facility] Environ/312379554( BEES UNKNOWN [place] [address]) Clinic Main [place] [facility] DRUG/295661935(SNO ETHYL ALCOHOL RASH [place] [address]) (SKIN CLEANSER) Clinic Main [place] [facility] DRUG LACTASE [place] 0 INGREDI/049221876( Clinic Main SNOMED CT) [place] [facility] Environ/992606287( SEASONAL UNKNOWN [place] [address]) ALLERGIES Clinic Main [place] [facility] ENCOUNTERS ENCOUNTERS ADMIT/DISCHARGE ACCOUNT NUMBER ADMITTING ENCOUNTER LOCATION SOURCE CLASS 09/20/2018/09/20/19 [id number] Emergency Lani [place] [address] [place] [address] ding:ED Repository 09/20/2018/09/20/19 [id number] Ambulatory [address] Main [place] [facility] 09/15/2018/09/18/19 [id number] Ambulatory [address] Main [place] [facility] 09/15/2018/09/15/19 [id number] Ambulatory [address] Main [place] [facility] 09/15/2018/09/15/19 [id number] Ambulatory [address] [place] Rep[facility] 09/14/2018 [id number] Ambulatory [facility] Repository 09/12/2018/09/12/19 [id number] Emergency Lani Lani 19 [facility] ding:ED Repository 09/04/2018/09/05/19 [id number] Emergency Lani [place] 19 [facility] ding:ED Repository 09/03/2018/09/03/20 [id number] Emergency Lani Lani 18 [facility] ding:ED Repository 08/09/2018/08/09/20 [id number] Emergency [place] Lani 18 [facility] ding:ED Repository 08/06/2018/08/07/20 [id number] Emergency Lani [place] 18 [facility] ding:ED Repository 08/04/2018/08/07/20 [id number] Ambulatory [address] Repository 07/29/2018/07/29/20 [id number] Emergency Lani [place] 18 [facility] ding:ED Repository 07/29/2018/07/29/20 [id number] Emergency Lani Lani 18 [facility] ding:ED Repository 07/25/2018/07/25/20 [id number] Emergency [place] Lani 18 [facility] ding:ED Repository 07/24/2018/07/24/20 [id number] Emergency Lani Lani 18 [facility] ding:ED Repository 07/24/2018 [id number] [facility] Rep[facility] 07/24/2018/07/24/20 [id number] Emergency [place] Lani 18 [facility] ding:ED Repository 07/19/2018/07/20/20 [id number] Ambulatory [address] Repository 07/13/2018/07/13/20 [id number] Ambulatory [address] Repository 07/13/2018/07/13/20 [id number] Emergency [place] 18 [facility] ding:ED Repository 07/12/2018/07/12/20 [id number] Ambulatory BMSBuilding: Lani 18 [facility] Repository 06/19/2018/06/19/20 [id number] Emergency [place] Lani 18 [facility] ding:ED Repository 06/17/2018/06/17/20 [id number] Emergency Lani [place] 18 [facility] ding:ED Repository 06/17/2018/06/17/20 [id number] Emergency Lani Lani 18 [facility] ding:ED Repository 06/14/2018/06/15/20 [id number] Ambulatory [address] Repository 06/13/2018/06/13/20 [id number] Ambulatory BMSBuilding: Lani 18 [facility] Repository 06/12/2018/06/13/20 [id number] Emergency Lani [place] 18 [facility] ding:ED Repository 06/12/2018/06/13/20 [id number] Ambulatory [address] Repository 06/10/2018/06/10/20 [id number] Emergency [place] Lani 18 [facility] ding:ED Repository 06/10/2018/06/12/20 [id number] Ambulatory [address] Repository 06/08/2018/06/08/20 [id number] Emergency Lani [place] 18 [facility] ding:ED Repository 06/01/2018/06/01/20 [id number] Ambulatory [address] Repository 05/25/2018/05/26/20 [id number] Ambulatory [address] Repository 05/18/2018 [id number] Ambulatory BMSBuilding: [place] BMS.[facility] Repository 05/14/2018/05/14/20 [id number] Emergency Lani Lani 18 [facility] ding:ED Repository 05/12/2018/05/12/20 [id number] Emergency Lani Lani 18 [facility] ding:ED Repository 05/05/2018/05/09/20 [id number] Ambulatory [address] Repository 05/01/2018 [id number] [facility] ding:RAD.FUT Repository URE 04/11/2018/04/12/20 [id number] Ambulatory [address] Main [place] Rep[facility] 04/08/2018/04/10/20 [id number] Ambulatory [address] Main [place] [facility] 04/05/2018/04/05/20 [id number] Ambulatory [address] Main [place] Rep[facility] 03/30/2018/03/31/20 [id number] Ambulatory [address] Main [place] Rep[facility] 03/27/2018/05/23/20 [id number] Ambulatory [address] Main [place] Rep[facility] 03/24/2018/03/24/20 [id number] Emergency [place] ding:ED Repository 03/24/2018/03/24/20 [id number] Ambulatory [address] [place] Rep[facility] 03/24/2018/03/24/20 [id number] Ambulatory [address] [place] Rep[facility] 03/20/2018/03/20/20 [id number] Emergency Lani Lani 18 [facility] ding:ED Repository 03/19/2018/03/19/20 [id number] Emergency Lani Lani [address] [place] [address] ding:ED Repository 03/18/2018/03/20/20 [id number] Ambulatory [address] Repository 03/17/2018/03/17/20 [id number] Emergency Lani [place] 18 [facility] ding:ED Repository 03/16/2018/03/17/20 [id number] Ambulatory [address] [place] Rep[facility] 03/12/2018/03/13/20 [id number] Emergency [place] 18 [facility] ding:ED Repository 03/06/2018/03/07/20 [id number] Ambulatory [address] [place] Rep[facility] 03/03/2018/03/03/20 [id number] Emergency Lani [place] [address] [place] [address] ding:ED Repository 02/21/2018/02/23/20 [id number] Ambulatory [address] Main [place] Rep[facility] 02/15/2018/02/16/20 [id number] Ambulatory [address] [place] Rep[facility] 02/15/2018/02/18/20 [id number] Ambulatory [address] Repository 02/10/2018/04/26/20 [id number] Ambulatory [address] Repository 02/09/2018/02/10/20 [id number] Ambulatory [address] Repository 02/03/2018/02/04/20 [id number] Emergency [place] ding:ED Repository 02/01/2018/02/02/20 [id number] Emergency [place] ding:ED Repository 01/30/2018/01/31/20 [id number] Emergency [place] ding:ED Repository 01/23/2018/01/26/20 [id number] Ambulatory [address] Repository 01/19/2018/01/21/20 [id number] Ambulatory [address] Repository 01/14/2018/01/15/20 [id number] Emergency Lani[address] ding:ED Repository 01/13/2018/01/14/20 [id number] Emergency Lani[address] ding:ED Repository 01/06/2018/01/07/20 [id number] Emergency BBuilding:RICCARDO Escobar [address] [place] [address] Repository 12/14/2017/12/15/19 [id number] Emergency [place] ding:ED Repository 12/07/2017/12/09/19 [id number] Ambulatory [address] Repository 10/27/2017/10/27/19 [id number] Emergency [place] Lani[address] ding:ED Repository 10/10/2017/10/10/19 [id number] Emergency Lani[address] ding:ED Repository PAYERS PAYERS ENCOUNTER GUARANTOR PAYER SUBSCRIBER SOURCE 09/20/2018 ANGELICA CLEMENS Primary Insurance:[facility] ANGELICA VICTOR [facility] CONDOB: [address] Number: [id number] Hospital [address]Iij: ([phone]) [id number] Repository [phone] () Date:9221-35-58JY [address] [address]AY: 09/20/2018 Secondary NOT GIVENUNK Lani Insurance:SELF PAY [facility] Number: Effective Repository Date:2018-09-20 09/12/2018 ANGELICA Bermudez [id number] Primary Insurance:[facility] ANGELICA STOO [facility] BAKERDOB: [facility] [place] Number: [id number] Hospital [address]Igi: 330 [id number] Repository [phone] () Date:3452-79-16GB[address] [address]PW: 09/12/2018 Secondary NOT GIVENUNK Lani Insurance:SELF PAY [facility] Number: Effective Repository Date:2018-09-12 09/04/2018 KATHYLara CLEMENS Primary Insurance:[facility] ANGELICA SOTO [facility] BAKERDOB: [facility] [place] Number: [id number] Hospital [address]Ibs: 330 [id number] Repository [phone] () Date:4245-36-98XN [address] [address]DQ: 09/04/2018 Secondary NOT GIVENUNK [place] Insurance:SELF PAY [facility] Number: Effective Repository Date:2018-09-04 09/03/2018 KATHYLara CLEMENS Primary Insurance:[facility] ANGELICA SOTO [facility] BAKERDOB: [facility] [place] Number: [id number] Hospital [address]Yom: 330 [id number] Repository [phone] () Date:9820-98-54XY[address] [address]QK: 09/03/2018 Secondary NOT GIVENUNK Lani Insurance:SELF PAY [facility] Number: Effective Repository Date:2018-09-03 08/09/2018 KATHYLara CLEMENS Primary Insurance:[facility] ANGELICA SOTO [facility] BAKERDOB: [address], [place] Number: [id number] Hospital [address]Iqn: 330 [id number] Repository [phone] () Date:7823-47-72RQ [address] [address]HI: 08/09/2018 Secondary NOT GIVENUNK [place] Insurance:SELF PAY [facility] Number: Effective Repository Date:2018-08-09 08/06/2018 ANGELICA CLEMENS Primary Insurance:[facility] ANGELICA SOTO [facility] BAKERDOB: [address], [place] Number: [id number] Hospital [address]Iss: [phone]) [id number] Repository [phone] () Date:9497-98-61DG [address] [address]DK: 08/06/2018 Secondary NOT GIVENUNK Lani Insurance:SELF PAY [facility] Number: Effective Repository Date:2018-08-06 07/29/2018 ANGELICA CLEMENS Primary Insurance:[facility] ANGELICA Bermudez Lanileticia SOTO [facility] BAKERDOB: [address], [place] Number: [id number] Hospital [address]Syl: 330 [id number] Repository [phone] () Date:8044-28-60UO [address] [address]FR: 07/29/2018 Secondary NOT GIVENUNK [place] Insurance:SELF PAY [facility] Number: Effective Repository Date:2018-07-29 07/29/2018 ANGELICA CLEMENS Primary Insurance:[facility] ANGELICA SOTO [facility] BAKERDOB: [address], [place] Number: [id number] Hospital [address]Krx: [phone] [id number] Repository [phone] () Date:1093-30-23BK [address] [address]OS: 07/29/2018 Secondary NOT GIVENUNK [place] Insurance:SELF PAY [facility] Number: Effective Repository Date:2018-07-29 07/25/2018 ANGELICA CLEMENS Primary Insurance:[facility] ANGELICA SOTO [facility] BAKERDOB: [address], [place] Number: [id number] Hospital [address]Mcz: 330 [id number] Repository [phone] () Date:2969-10-73QZ [address] [address]MS: 07/25/2018 Secondary NOT GIVENUNK Lani Insurance:SELF PAY [facility] Number: Effective Repository Date:2018-07-25 07/24/2018 ANGELICA Bermudez [id number] Primary Insurance:[facility] ANGELICA SOTO [facility] BAKERDOB: [address], [place] Number: [id number] Hospital [address]Vdr: 330 [id number] Repository [phone] () Date:2955-01-81EQ [address] [address]DI: 07/24/2018 Secondary NOT GIVENUNK [place] Insurance:SELF PAY [facility] Number: Effective Repository Date:2018-07-24 07/24/2018 ANGELICA Bermudez [id number] Primary Insurance:[facility] ANGELICA SOTO [facility] BAKERDOB: [address], [place] Number: [id number] Hospital [address]Fhv: 330 [id number] Repository [phone] () Date:6718-70-01YG [address] [address]ND: 07/24/2018 Secondary NOT GIVENUNK Lani Insurance:SELF PAY [facility] Number: Effective Repository Date:2018-07-19 07/24/2018 ANGELICA Bermudez [id number] Primary Insurance:[facility] ANGELICA SOTO [facility] BAKERDOB: [address], [place] Number: [id number] Hospital [address]Egd: [phone]) [id number] Repository [phone] () Date:7395-27-68DF [address] [address]YR: 07/24/2018 Secondary NOT GIVENUNK [place] Insurance:SELF PAY [facility] Number: Effective Repository Date:2018-07-24 07/13/2018 ANGELICA CLEMENS Primary Insurance:[facility] ANGELICA [facility]OTO [facility] [address], [place] Number: [id number] Hospital [address]Thb: 330 [id number] Repository [phone] () Date:7816-16-[place], [place] [address]WP: 07/13/2018 Secondary NOT GIVENUNK [place] Insurance:SELF PAY [facility] Number: Effective Repository Date:2018-07-13 07/12/2018 ANGELICA Bermudez [id number] Primary Insurance:[facility] ANGELICA SOTO [facility] [address], [place] Number: [id number] Hospital [address]Wqg: 330 [id number] Repository [phone] () Date:7811-18-92DG [place] 9384802WP: 07/12/2018 Secondary NOT GIVENUNK [place] Insurance:SELF PAY [facility] Number: Effective Repository Date:2018-07-04 06/19/2018 ANGELICA Bermudez [id number] Primary Insurance:[facility] ANGELICA SOTO [facility] [address], [place] Number: [id number] [facility] [address]Ook: 330 [id number] Repository [phone] () Date:2812-52-97TH [address] [address]TB: 06/19/2018 Secondary NOT GIVENUNK [place] Insurance:SELF PAY [facility] Number: Effective Repository Date:2018-06-19 06/17/2018 ANGELICA Bermudez [id number] Primary Insurance:[facility] ANGELICA [facility]OTO [facility] [address], [place]: [id number] Hospital [address]Ufj: ([phone] [id number] Repository [phone] () Date:4911-72-90DB [place] 9384802WP: 06/17/2018 Secondary NOT GIVENUNK [place] Insurance:SELF PAY [facility] Number: Effective Repository Date:2018-06-17 06/17/2018 KATHYLara CLEMENS Primary Insurance:[facility] ANGELICA SOTO [facility] BAKERDOB: [address], [place] Number: [id number] Hospital [address]Xhq: 330 [id number] Repository [phone] () Date:5484-94-70SA [address] [address]ZE: 06/17/2018 Secondary NOT GIVENUNK Lani Insurance:SELF PAY [facility] Number: Effective Repository Date:2018-06-17 06/13/2018 ANGELICA CLEMENS Primary Insurance:[facility] ANGELICA SOTO [facility] BAKERDOB: [address], [place] Number: [id number] Hospital [address]Tfn: [phone]) [id number] Repository [phone] () Date:6338-68-44SA [address] [address]JA: 06/13/2018 Secondary NOT GIVENUNK [place] Insurance:SELF PAY [facility] Number: Effective Repository Date:2018-06-13 06/12/2018 KATHY [id number] Primary Insurance:[facility] ANGELICA SOTO [facility] BAKERDOB: [address], [place] Number: [id number] Hospital 6[address]Ptw: ([phone]) [id number] Repository [phone] () Date:7061-54-16AB [address] [address]GL: 06/12/2018 Secondary NOT GIVENUNK [place] Insurance:SELF PAY [facility] Number: Effective Repository Date:2018-06-12 06/10/2018 ANGELICA CLEMENS Primary Insurance:[facility] ANGELICA SOTO [facility] BAKERDOB: [address], [place] Number: [id number] Hospital [address]Mky: ([phone]) [id number] Repository [phone] () Date:8725-31-84EA [address] [address]RQ: 06/10/2018 Secondary NOT GIVENUNK [place] Insurance:SELF PAY [facility] Number: Effective Repository Date:2018-06-10 06/08/2018 KATHYLara CLEMENS Primary Insurance:[facility] ANGELICA SOTO [facility] BAKERDOB: [facility] [place], [place] Number: [id number] Hospital 43[address]Tkd: 330 [id number] Repository [phone] () Date:1362-36-72KM [address] [address]XD: 06/08/2018 Secondary NOT GIVENUNK Lani Insurance:SELF PAY [facility] Number: Effective Repository Date:2018-06-08 05/18/2018 ANGELICA CLEMENS Primary Insurance:[facility] ANGELICA Bermudez [place] SOTO [facility] BAKERDOB: [address] [place] Number: [id number] Hospital [address]Alk: 330 [id number] Repository [phone] () Date:0814-95-94DD [address] [address]KY: 05/18/2018 Secondary NOT GIVENUNK [place] Insurance:SELF PAY [facility] Number: Effective Repository Date:2018-03-20 05/14/2018 ANGELICA [id number] Primary Insurance:[facility] ANGELICA SOTO [facility] BAKERDOB: [facility] [address] Number: [id number] Hospital [address]Ssr: 330 [id number] Repository [phone] () Date:2531-53-85GS [address] [address]GU: 05/14/2018 Secondary NOT GIVENUNK Lani Insurance:SELF PAY [facility] Number: Effective Repository Date:2018-05-14 05/12/2018 ANGELICA CLEMENS Primary Insurance:[facility] [address], [place] Number: [id number] Hospital [address]Fmf: 330 [id number] Repository [phone] (HP) Date:5905-76-36EK [address] [address]SD: 05/12/2018 Secondary NOT GIVENUNK Lani Insurance:SELF PAY [facility] Number: Effective Repository Date:2018-05-12 05/01/2018 ANGELICA [id number] Primary Insurance:[facility] ANGELICA SOTO [facility] BAKERDOB: [address], [place] Number: [id number] Hospital [address]Ruq: 330 [id number] Repository [phone] () Date:7001-11-27NO [address] [address]WM: 05/01/2018 Secondary NOT GIVENUNK Lani Insurance:SELF PAY [facility] Number: Effective Repository Date:2018-04-25 03/24/2018 ANGELICA CLEMENS Primary Insurance:[facility] ANGELICA SOTO [facility] BAKERDOB: [address], [place] Number: [id number] Hospital [address]Qps: 330 [id number] Repository [phone] () Date:2599-24-72JQ [address] [address]CK: 03/24/2018 Secondary NOT GIVENUNK Lani Insurance:SELF PAY [facility] Number: Effective Repository Date:2018-03-24 03/20/2018 ANGELICA CLEMENS Primary Insurance:[facility] ANGELICA SOTO [facility] BAKERDOB: [address], [place] Number: [id number] Hospital 148[address]Org: (508) [id number] Repository [phone] () Date:0920-52-50NE [address] [address]LK: 03/20/2018 Secondary NOT GIVENUNK Lani Insurance:SELF PAY [facility] Number: Effective Repository Date:2018-03-20 03/19/2018 ANGELICA CLEMENS Primary Insurance:[facility] ANGELICA SOTO [facility] BAKERDOB: [address], [place] Number: [id number] Hospital 244[address]Nwl: 330 [id number] Repository [phone] () Date:9626-47-57QC [address] [address]QO: 03/19/2018 Secondary NOT GIVENUNK Lani Insurance:SELF PAY [facility] Number: Effective Repository Date:2018-03-19 03/17/2018 ANGELICA Bermudez [id number] Primary Insurance:[facility] ANGELICA SOTO [facility] BAKERDOB: [address], [place] Number: [id number] Hospital [address]Xor: 330 [id number] Repository [phone] () Date:0735-16-68AV [address] [address]CV: 03/17/2018 Secondary NOT GIVENUNK [place] Insurance:SELF PAY [facility] Number: Effective Repository Date:2018-03-17 03/12/2018 ANGELICA Bermudez [id number] Primary Insurance:[facility] ANGELICA SOTO [facility] BAKERDOB: [address], [place] Number: [id number] Hospital 11113Xhh: 330 [id number] Repository [phone] () Date:4708-13-49VH [address] 27[address]IQ: 03/12/2018 Secondary NOT GIVENUNK Lani Insurance:SELF PAY [facility] Number: Effective Repository Date:2018-03-12 03/03/2018 ANGELICA Bermudez [id number] Primary Insurance:[facility] ANGELICA SOTO [facility] BAKERDOB: [address], [place] Number: [id number] Hospital [address]Mlu: 330 [id number] Repository [phone] () Date:9147-16-84EG [address] [address]HS: 03/03/2018 Secondary NOT GIVENUNK [place] Insurance:SELF PAY [facility] Number: Effective Repository Date:2018-03-03 02/03/2018 ANGELICA Bermudez [id number] Primary Insurance:[facility] ANGELICA [facility]OTO [facility] [address]: [id number] Hospital 22002Qtz: 330 [id number] Repository [phone] (HP) Date:4697-32-77OY [address] [address]AV: 02/03/2018 Secondary NOT GIVENUNK [place] Insurance:SELF PAY [facility] Number: Effective Repository Date:2018-02-03 02/01/2018 ANGELICA Bermudez [id number] Primary Insurance:[facility] ANGELICA [facility]OTO [facility] [address]: [id number] Hospital 25[address]Ubk: (692) [id number] Repository [phone] (HP) Date:1994-23-27LD[address] [address]ZJ: 02/01/2018 Secondary NOT GIVENUNK Lani Insurance:SELF PAY [facility] Number: Effective Repository Date:2018-02-01 01/30/2018 ANGELICA Bermudez [id number] Primary Insurance:[facility] ANGELICA [facility]OTO [facility] [address]: [id number] Hospital [address]Pin: 330 [id number] Repository [phone] (HP) Date:5500-72-40VR[address] [address]NI: 01/30/2018 Secondary NOT GIVENUNK [place] Insurance:SELF PAY [facility] Number: Effective Repository Date:2018-01-30 01/14/2018 ANGELICA Bermudez [id number] Primary Insurance:[facility] ANGELICA [facility]OTO [facility] [address]: [id number] Hospital 37[address]Gcn: (646) [id number] Repository [phone] (HP) Date:[id number] [address] [address]HG: 01/14/2018 Secondary NOT GIVENUNK Lani Insurance:SELF PAY [facility] Number: Effective Repository Date:2018-01-14 01/13/2018 KATHY [id number] Primary Insurance:[facility] ANGELICA SOTO [facility] BAKERDOB: [facility] [place], [place] Number: [id number] [address]Vwt: [phone] [id number] Repository [phone] () Date:[id number] [address] [address]WC: 01/13/2018 Secondary NOT GIVENUNK [place] Insurance:SELF PAY [facility] Number: Effective Repository Date:2018-01-13 01/06/2018 ANGELICA Bermudez Primary ANGELICA Bermudez [facility] BAKERDOB: Insurance:[facility] BAKERDOB: [facility] [id number] Repository [address] Number: [address] [place] [address] [id number] [place] [address]Dxb: ([phone]) Date:2018-01-06 [id number]: () [id number] [phone] Name:PIETRO Myles ()Tel: (633) [address] [place] [address] [phone] () 08[address]RT: 12/14/2017 ANGELICA [id number] Primary Insurance:[facility] ANGELICA SOTO [facility] BAKERDOB: [address] Number: [id number] [id number]: [phone] [id number] Repository [phone] () Date:[id number] [address] [address]HS: 12/14/2017 Secondary NOT GIVENUNK [place] Insurance:SELF PAY [facility] Number: Effective Repository Date:2017-12-14 10/27/2017 ANGELICA [id number] Primary Insurance:[facility] ANGELICA Garibay [facility] BAKERDOB[facility] Number: [id number] [address]Mty: [id number] Repository Date:[id number] [address] () [address] [place] [address]AS: 10/27/2017 Secondary NOT GIVENUNK [place] Insurance:SELF PAY [facility] Number: Effective Repository Date:2017-10-27 10/10/2017 Angelica Shahid E Primary Insurance:[facility] Angelica ThomasB: Lani [facility] [id number] Number: [facility] [id number]: [phone] [id number] Repository [phone] () Date:1991-87-00[address] [place] [address]VE: 10/10/2017 Secondary NOT GIVENUNK Lani Insurance:SELF PAY [facility] Number: Effective Repository Date:2017-10-10
== END 2018-09-20 18:10 | disposition home or self-care (01) ==
PROVIDERS: Emergency Provider Emergency Medicine; Family Provider Nurse Practitioner Family; PCP Nurse Practitioner Family
DX: F17.200 Nicotine dependence, unspecified, uncomplicated (principal)
CPT/HCPCS: 99284

== ENCOUNTER 2018-11-20 08:09 | Emergency (ER) | payer MEDICAID, SELFPAY ==
[2018-11-20 08:10] VITALS: BP 124/86; PULSE 96; RESP 18; TEMP 36.7; O2SAT 98; BMI 29.7
[2018-11-20 09:11] LABS: Absolute Lymphocyte Count 1.56 X10^3/ul (0.83-4.51); Absolute Neutrophil Count 5.4 X10^3/uL (2.0-7.7); Basophil# 0.02 X10^3/uL; Basophil% 0.3 % (0-1); Eosinophil# 0.18 X10^3/uL; Eosinophils% 2.3 % (0-5); Hematocrit 41.6 % (37-47); Lymphocyte # 1.56 X10^3/ul (4.0); Lymphocyte % 19.9 % (19-41); Mean Corp Hgb Conc 33.7 g/gl (32-36); Mean Corpuscular Hgb 28.1 pg (27.0-32.0); Mean Corpuscular Volume 83.4 fL (81-99); Mean Platelet Vol. 9.5 fl (6.2-12.0); Monocyte# 0.66 X10^3/uL; Monocyte% 8.4 % (0-10); Neutrophil # 5.39 X10^3/uL (2.7-7.7); POSITIVE COUNT NO; POSITIVE DIFFERENTIAL NO; POSITIVE MORPHOLOGY NO; Platelet Count 228 K/mm3 (150-450); RBC Distribution Width CV 14.4 % (11.6-14.6); RBC Distribution Width SD 44.3 fl (35.1-43.9); Red Blood Count 4.99 M/mm3 (4.2-5.4); White Blood Count 7.8 K/mm3 (4.4-11.0)
[2018-11-20 09:24] LABS: ALB/GLOB Ratio 1.2 RATIO (0.9-2.4); AST(SGOT) 14 U/L (15-37); Alanine Aminotransfer ALT/SGPT 21 U/L (13-56); Alkaline Phosphatase 79 U/L (45-117); Anion Gap 3 (5-15); BUN 11 mg/dL (7-18); BUN/Creat Ratio 15.4 RATIO (10-20); Calcium,Total 8.5 mg/dL (8.5-10.1); Chloride 103 mmol/L (98-107); Creatinine, Serum 0.71 mg/dL (0.55-1.02); EST Glomerular Filtration Rate 97 mL/min (>60); Est Glom Filt Rate - Afr Amer 117 mL/min (>60); Estimated Creatinine Clearance 102.43 ml/min; Globulin 3.2 g/dL (2.2-4.2); Glucose 92 mg/dL (74-106); Potassium 4.2 mmol/L (3.5-5.1); Protein, Total 7.2 g/dL (6.4-8.2); Sodium Level 132 mmol/L (136-145)
--- NOTE | 2018-11-20 09:33 | ED.DCSUM_ITS ---
History of Present Illness Chief Complaint: Other, Pain/Inj Detail of Chief Complaint: Read narrative Informant: Patient Onset: Weeks Timing: Intermittent Quality: Read narrative Location: Not applicable Current Severity: - - Unable to quantitate Worsened by: Per patient unknown Relieved by: Nothing Associated Symptoms: Difficulty sleeping, tremor, chewing inside of mouth Narrative: Patient is a 38-year-old woman who was seen at the [facility] and was seen 2-3 weeks ago. None of her medications were adjusted. She believes she is chewing the inside of her mouth because of her medications. She also reports difficulty sleeping. She has been drinking more fluids because she believes she is dehydrated. She drinks prior to going to bed and awakens between 3 and 4:00 in the morning and then has difficulty falling asleep. She states she is fatigued. She works at [employer]. She states she has not been getting as many hours. She has had to borrow money from her brother. She denies drug use or alcohol use. She does smoke. She is in no relationship. He has never been and has no children. She denies suicidal or homicidal ideation. When asked regarding her right hand movements she states she has a tremor. Once I made her aware that I saw the tremor it became worse. Prior similar symptoms: No Recent Illness/Hospitalization: Yes - Past Medical History (1) Asthma Status: Chronic Past Medical History - Allergies and Home Meds Allergies/Adverse Reactions: Allergies influenza virus vaccine, specific [influenza virus vacc,specific] Allergy (Verified 11/20/18 08:17) Other Latex, Natural Rubber Allergy (Verified 11/20/18 08:17) Rash [place] Allergy (Verified 11/20/18 08:17) Anaphylaxis meloxicam Allergy (Verified 11/20/18 08:17) Other metronidazole [From Flagyl] Allergy (Verified 11/20/18 08:17) Hives montelukast [From Singulair] Allergy (Verified 11/20/18 08:17) Rash morphine Allergy (Verified 11/20/18 08:17) Other Penicillins [PCN] Allergy (Verified 11/20/18 08:17) Unknown clindamycin Adverse Reaction (Verified 11/20/18 08:17) Nausea/Vom/Diarrhea prednisone Adverse Reaction (Verified 11/20/18 08:17) Other ANTIBACTERIAL SOAP Allergy (Uncoded 11/20/18 08:17) Hives HAND CHURCH SUPERVISOR Allergy (Uncoded 11/20/18 08:17) Hives SEASONAL ALLERGIES Allergy (Uncoded 11/20/18 08:17) Other Primary Care Physician: Mallorie Alexis NP-C [Primary Care Provider] - Prior records reviewed: Yes Lives: Alone Smoking Status: Current every day smoker Alcohol: None Drugs: None Review of Systems General: Denies: Chills, Fever, Sweats Eyes: Denies: Visual changes - bilaterally, Diplopia ENT: Denies: Rhinorrhea, Sore throat Cardiovascular: Denies: Chest pain, Palpitations Respiratory: Denies: Dyspnea, Cough, Dyspnea on exertion Gastrointestinal: Denies: Abdominal pain, Nausea, Vomiting, Diarrhea, Melena, Hematochezia Genitourinary: Denies: Dysuria, Hematuria, Frequency Musculoskeletal: Denies: Back pain, Extremity Pain Skin: Denies: Rash, Wounds Neurological: Denies: Headache, Weakness, Numbness Psych: Reports: Depression, Anxiety. Denies: Suicidal thoughts, Suicidal ideations Endocrine: Reports: Polyuria. Denies: Heat intolerance, Cold intolerance Hematologic: Denies: Easy bruising, Easy bleeding Physical Exam Vital Signs/Narrative: Vital Signs Temp Pulse Resp BP Pulse Ox 11/20/18 08:10 98.0 F 96 18 124/86 H 98 Inital Vital Signs reviewed: Yes General: Well nourished, Well developed, No Acute Distress Head: Normocephalic, Atraumatic Eyes: Perrl, EOMI. Negative for: Pale conjunctiva, Scleral icterus ENT: Moist mucous membranes, No rhinorrhea, TM's clear Neck: Supple, Nontender, No lymphadenopathy, No JVD Cardiovascular: Regular rate, Regular rhythm, No murmurs, Normal S1, Normal S2 Respiratory: No distress, CTA bilaterally, Chest nontender Abdomen: Soft, Nontender, Nondistended, Normal bowel sounds, No masses. Negative for: Hepatomegaly, Splenomegaly, Mass, Pulsatile mass Back: Nontender, Normal Inspection Extremities: Nontender, No edema Skin: Normal color, No rash. Negative for: Cyanosis, Jaundice Neurological: Alert, Oriented x3, Cranial nerves II-XII grossly intact, Normal Strength, Normal Sensation, Normal DTR, Normal Gait Psychological: - - Affect is depressed. Slow psychomotor skills. Poverty of speech. Diagnostic/Tx/Re-eval Laboratory Results 11/20/18 11/20/18 09:00 09:00 WBC 7.8 RBC 4.99 Hgb 14.0 Hct 41.6 MCV 83.4 MCH 28.1 MCHC 33.7 RDW 14.4 RDW Differential 44.3 H Plt Count 228 MPV 9.5 Immature Gran % (Auto) 0.100 Neut % (Auto) 69.0 Lymph % (Auto) 19.9 [place] % (Auto) 8.4 Eos % (Auto) 2.3 Baso % (Auto) 0.3 Absolute Neuts (auto) 5.4 Absolute Lymphs (auto) 1.56 Total Counted Not Reportable Sodium 132 L Potassium 4.2 Chloride 103 Carbon Dioxide 26.0 Anion Gap 3 L BUN 11 Creatinine 0.71 Estim Creat Clear Calc 102.43 Est GFR (MDRD) Af Amer 117 Est GFR (MDRD) Non-Af 97 BUN/Creatinine Ratio 15.4 Glucose 92 Calcium 8.5 Total Bilirubin 0.40 AST 14 L ALT 21 Alkaline Phosphatase 79 Total Protein 7.2 Albumin 4.0 Globulin 3.2 Albumin/Globulin Ratio 1.2 - Rhythm Strip Rhythm Strip: Sinus Rhythm Rate: 77 Ectopy: None - Medical Decision Making In light of patient's past medical history, constellation of symptoms and report of increased thirst and nocturia electrolyte panel was obtained to assess glucose, anion gap and electrolytes. Hepatic profile was obtained to determine if there is any elevation of enzymes that may be related to her medication. CBC was obtained to evaluate for anemia. Patient has informed multiple nurses and ancillary that she is thirsty and needs IV fluids. Patient was informed she does not need IV fluids and there is no evidence of dehydration. Patient also believes she needs medication for her tremor which is a chronic issue. Because of her frequent visits the fact that she lives alone will have case management see her. Shara, correctional counselor/case manager for the ER, informed me that she believes her symptoms are related to depression, which is my medical opinion as well. Patient has requested sleeping medication, which she was denied. She requested medicine for her tremors and was told she needs to follow-up with her doctors since this is a chronic issue. She also was told that her sleeping problems are related to her depression and she is scheduled to see counselor Tuesday of next week. November 28 ED Disposition - Plan for ED Patient: Disposition: Home or Assisted Living Diagnosis: Depression with somatization, Insomnia due to mental condition Instructions: Depression Affects Your Mind and Body, ED Insomnia Referrals: Mallorie Alexis NP-C [Primary Care Provider] - 3-5 Days Additional Instructions: Keep appointment with counselor scheduled for next week.
--- NOTE | 2018-11-20 11:15 | CM.ED ---
Social Work Note Face to face with pt to discuss finances and depression. Introduced self and role at [facility]. Pt inquires why this board writer is in her room. Explain that there was a consult given d/t depression and financial concerns. Pt states her brother loaned her some money and that she works at [employer] 8-10 hrs/week. Claims that this is what she has consistently worked since she started her employment there. Encourage the pt to discuss with her clinical safety manager the possibility of obtaining more hours. Understanding expressed. Pt inquires if she looks tired. Explain that the pt appears alert, but does present with a flat affect. She states she does struggle with depression. Educated to symptoms of depression. Pt has a psychiatrist appointment with TYLER Munguia, at the [facility] on 12/18 and a counseling appointment at [facility] on 11/23 at 1400. Recommend that the pt contact her outsole caser, Darion Ladd, at [facility] if symptoms of mental health persist. Educate to appropriate use of ED. Pt asks if she can leave to smoke a cigarette and explain that she must wait until the physician is able to discharge her. Pt states she wants to go now, and reiterate that she called the squad to come to the ED and will need to abide by those stipulations while here. EMILE Albarran, GENESIS
== END 2018-11-20 11:30 | disposition home or self-care (01) ==
PROVIDERS: Emergency Provider Emergency Medicine; Family Provider Nurse Practitioner Family; PCP Nurse Practitioner Family
DX: F32.9 Major depressive disorder, single episode, unspecified (principal); F51.05 Insomnia due to other mental disorder; J45.909 Unspecified asthma, uncomplicated; Z60.2 Problems related to living alone; F17.200 Nicotine dependence, unspecified, uncomplicated
CPT/HCPCS: 80053; 85025; 99285; A4216

== ENCOUNTER 2018-11-21 13:05 | Emergency (ER) | payer MEDICAID, SELFPAY ==
[2018-11-20 08:10] VITALS: BMI 29.7
[2018-11-21 13:06] VITALS: BP 145/93; PULSE 103; RESP 18; TEMP 36.4; O2SAT 98; BMI 29.7
--- NOTE | 2018-11-21 13:28 | ED.VIS.GEN ---
History of Present Illness Chief Complaint: Fatigue Informant: Patient Onset: Yesterday Context: Gradual Onset Timing: Continuous Quality: weak all over, tired Location: all over Current Severity: Severe Maximum Severity: Severe Worsened by: nothing Relieved by: nothing Associated Symptoms: memory problems Narrative: Patient was seen here yesterday for similar complaints. She states she feels more tired and fell, as a result of feeling weak all over. States she fell to her right knee which she bruised and put a Band-Aid on. She denies any other injuries. She feels lightheaded, which is what she told the physician yesterday, her labs showed no indication or evidence of dehydration. She denies any headaches but states she is having short-term memory problems. She is on several psychiatric medicines. She states that her Invega was decreased but she has no idea how long ago because of her memory problems. She states she has been constipated off and on but also felt abnormally hot, rather than cold. She denies any other focal problems. No blurry vision or eyesight differences lately. - Past Medical History (1) Asthma Status: Chronic (2) Bipolar 1 disorder Status: Chronic (3) Anxiety disorder Status: Chronic Past Medical History - Allergies and Home Meds Allergies/Adverse Reactions: Allergies influenza virus vaccine, specific [influenza virus vacc,specific] Allergy (Verified 11/21/18 13:09) Other Latex, Natural Rubber Allergy (Verified 11/21/18 13:09) Rash galena Allergy (Verified 11/21/18 13:09) Anaphylaxis meloxicam Allergy (Verified 11/21/18 13:09) Other metronidazole [From Flagyl] Allergy (Verified 11/21/18 13:09) Hives montelukast [From Singulair] Allergy (Verified 11/21/18 13:09) Rash morphine Allergy (Verified 11/21/18 13:09) Other Penicillins [PCN] Allergy (Verified 11/21/18 13:09) Unknown clindamycin Adverse Reaction (Verified 11/21/18 13:09) Nausea/Vom/Diarrhea prednisone Adverse Reaction (Verified 11/21/18 13:09) Other ANTIBACTERIAL SOAP Allergy (Uncoded 11/21/18 13:09) Hives HAND DIRECTOR 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 SAFETY AND HEALTH Allergy (Uncoded 11/21/18 13:09) Hives SEASONAL ALLERGIES Allergy (Uncoded 11/21/18 13:09) Other Primary Care Physician: Counseling,Center [GROUP OF PHYSICIANS] - As soon as possible Mallorie Alexis NP-C [Primary Care Provider] - Smoking Status: Current every day smoker Review of Systems General: Reports: Malaise Eyes: Denies: Visual changes - bilaterally, Diplopia ENT: Denies: Rhinorrhea, Sore throat Cardiovascular: Denies: Chest pain, Palpitations Respiratory: Denies: Dyspnea, Cough, Dyspnea on exertion Gastrointestinal: Denies: Abdominal pain, Nausea, Vomiting, Diarrhea, Melena, Hematochezia Genitourinary: Denies: Dysuria, Hematuria, Frequency Musculoskeletal: Denies: Neck pain, Back pain, Swelling, Extremity Pain Skin: Denies: Rash, Wounds Neurological: Denies: Headache, Weakness, Numbness Psych: Reports: - - memory problems. Denies: Suicidal thoughts, Suicidal ideations Endocrine: Reports: Heat intolerance. Denies: Polyuria, Polydipsia, Cold intolerance Physical Exam Vital Signs/Narrative: Vital Signs Temp Pulse Resp BP Pulse Ox 11/21/18 13:06 97.6 F L 103 H 18 145/93 H 98 Inital Vital Signs reviewed: Yes General: Well nourished, Well developed, No Acute Distress Head: Normocephalic, Atraumatic Eyes: Perrl, EOMI ENT: Moist mucous membranes, No rhinorrhea Neck: Supple, Nontender, No lymphadenopathy, No JVD, - - no thyromegaly or tenderness Cardiovascular: Regular rate, Regular rhythm, No murmurs, Tachycardia - mild Respiratory: No distress, CTA bilaterally, Chest nontender Abdomen: Soft, Nontender, Nondistended, Normal bowel sounds Back: Nontender, Normal Inspection Extremities: No edema, Tenderness - right tib tuberosity. FROM. all ligaments stable, neg jonathan. no effusion. ext mech intact.. Negative for: Edema, Calf Tenderness Skin: Normal color, No rash, Trauma - contusion w/o deformity or hematoma right knee at tibial tuberosity. Neurological: Alert, Oriented x3, Cranial nerves II-XII grossly intact, Normal Sensation, Weakness - can move arms and legs on exam, but barely. 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 able to extend at knees, but not hold entire LE up., - - occasional tic, head. no lapse in consciousness. Psychological: Normal Mood, - - flat, odd affect Diagnostic/Tx/Re-eval - Medical Decision Making TSH was added to yesterday's blood work and is normal. Urinalysis shows no acute infection/pyuria, drug screen is negative. Although she was hardly able to move during the physical exam, she now is ambulatory and using all 4 extremities normally. She tells me, please give me a medicine for my fatigue. She clearly does not understand the logic behind us being able to diagnose some things and not others. I explained to her that she is on multiple psychiatric medications, she may feel tired because of one or more of those medicines, especially if they have been altered recently. We attempted to discuss with the counseling center. At this time we are still waiting for a call back. Our showcase trimmer evaluated the patient and did speak with the patient's own personal showcase trimmer, she has what assigned to her from the counseling center, she is aware already of her multiple ED visits for vague symptoms and negative medical workups. I agree with Dr. Camacho's assessment yesterday that all of this is likely psychogenic. She needs psychiatric follow-up, and we are attempting to establish that closely. ED Disposition - Plan for ED Patient: Disposition: Home or Assisted Living Diagnosis: Fatigue, Bipolar 1 disorder, Anxiety about health Instructions: ED Weakness UKO, ED Panic Attack Referrals: Mallorie Alexis NP-C [Primary Care Provider] - Counseling,Center [GROUP OF PHYSICIANS] - As soon as possible
--- NOTE | 2018-11-21 13:33 | ED.DCSUM_ITS ---
History of Present Illness Chief Complaint: Fatigue Informant: Patient Onset: Yesterday Context: Gradual Onset Timing: Continuous Quality: weak all over, tired Location: all over Current Severity: Severe Maximum Severity: Severe Worsened by: nothing Relieved by: nothing Associated Symptoms: memory problems Narrative: Patient was seen here yesterday for similar complaints. She states she feels more tired and fell, as a result of feeling weak all over. States she fell to her right knee which she bruised and put a Band-Aid on. She denies any other injuries. She feels lightheaded, which is what she told the physician yesterday, her labs showed no indication or evidence of dehydration. She denies any headaches but states she is having short-term memory problems. She is on several psychiatric medicines. She states that her Invega was decreased but she has no idea how long ago because of her memory problems. She states she has been constipated off and on but also felt abnormally hot, rather than cold. She denies any other focal problems. No blurry vision or eyesight differences lately. - Past Medical History (1) Asthma Status: Chronic (2) Bipolar 1 disorder Status: Chronic (3) Anxiety disorder Status: Chronic Past Medical History - Allergies and Home Meds Allergies/Adverse Reactions: Allergies influenza virus vaccine, specific [influenza virus vacc,specific] Allergy (Verified 11/21/18 13:09) Other Latex, Natural Rubber Allergy (Verified 11/21/18 13:09) Rash cahuilla Allergy (Verified 11/21/18 13:09) Anaphylaxis meloxicam Allergy (Verified 11/21/18 13:09) Other metronidazole [From Flagyl] Allergy (Verified 11/21/18 13:09) Hives montelukast [From Singulair] Allergy (Verified 11/21/18 13:09) Rash morphine Allergy (Verified 11/21/18 13:09) Other Penicillins [PCN] Allergy (Verified 11/21/18 13:09) Unknown clindamycin Adverse Reaction (Verified 11/21/18 13:09) Nausea/Vom/Diarrhea prednisone Adverse Reaction (Verified 11/21/18 13:09) Other ANTIBACTERIAL SOAP Allergy (Uncoded 11/21/18 13:09) Hives 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 Allergy (Uncoded 11/21/18 13:09) Hives SEASONAL ALLERGIES Allergy (Uncoded 11/21/18 13:09) Other Primary Care Physician: [facility] [GROUP OF PHYSICIANS] - As soon as possible Mallorie Alexis NP-C [Primary Care Provider] - Smoking Status: Current every day smoker Review of Systems General: Reports: Malaise Eyes: Denies: Visual changes - bilaterally, Diplopia ENT: Denies: Rhinorrhea, Sore throat Cardiovascular: Denies: Chest pain, Palpitations Respiratory: Denies: Dyspnea, Cough, Dyspnea on exertion Gastrointestinal: Denies: Abdominal pain, Nausea, Vomiting, Diarrhea, Melena, Hematochezia Genitourinary: Denies: Dysuria, Hematuria, Frequency Musculoskeletal: Denies: Neck pain, Back pain, Swelling, Extremity Pain Skin: Denies: Rash, Wounds Neurological: Denies: Headache, Weakness, Numbness Psych: Reports: - - memory problems. Denies: Suicidal thoughts, Suicidal ideations Endocrine: Reports: Heat intolerance. Denies: Polyuria, Polydipsia, Cold intolerance Physical Exam Vital Signs/Narrative: Vital Signs Temp Pulse Resp BP Pulse Ox 11/21/18 13:06 97.6 F L 103 H 18 145/93 H 98 Inital Vital Signs reviewed: Yes General: Well nourished, Well developed, No Acute Distress Head: Normocephalic, Atraumatic Eyes: Perrl, EOMI ENT: Moist mucous membranes, No rhinorrhea Neck: Supple, Nontender, No lymphadenopathy, No JVD, - - no thyromegaly or tenderness Cardiovascular: Regular rate, Regular rhythm, No murmurs, Tachycardia - mild Respiratory: No distress, CTA bilaterally, Chest nontender Abdomen: Soft, Nontender, Nondistended, Normal bowel sounds Back: Nontender, Normal Inspection Extremities: No edema, Tenderness - right tib tuberosity. FROM. all ligaments stable, neg jonathan. no effusion. ext mech intact.. Negative for: Edema, Calf Tenderness Skin: Normal color, No rash, Trauma - contusion w/o deformity or hematoma right knee at tibial tuberosity. Neurological: Alert, Oriented x3, Cranial nerves II-XII grossly intact, Normal Sensation, Weakness - can move arms and legs on exam, but barely. 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 able to extend at knees, but not hold entire LE up., - - occasional tic, head. no lapse in consciousness. Psychological: Normal Mood, - - flat, odd affect Diagnostic/Tx/Re-eval - Medical Decision Making TSH was added to yesterday's blood work and is normal. Urinalysis shows no acute infection/pyuria, drug screen is negative. Although she was hardly able to move during the physical exam, she now is ambulatory and using all 4 extremities normally. She tells me, please give me a medicine for my fatigue. She clearly does not understand the logic behind us being able to diagnose some things and not others. I explained to her that she is on multiple psychiatric medications, she may feel tired because of one or more of those medicines, especially if they have been altered recently. We attempted to discuss with the counseling center. At this time we are still waiting for a call back. Our caser up evaluated the patient and did speak with the patient's own personal caser up, she has what assigned to her from the counseling center, she is aware already of her multiple ED visits for vague symptoms and negative medical workups. I agree with Dr. Camacho's assessment yesterday that all of this is likely psychogenic. She needs psychiatric follow-up, and we are attempting to establish that closely. ED Disposition - Plan for ED Patient: Disposition: Home or Assisted Living Diagnosis: Fatigue, Bipolar 1 disorder, Anxiety about health Instructions: ED Weakness UKO, ED Panic Attack Referrals: Mallorie Alexis NP-C [Primary Care Provider] - [facility] [GROUP OF PHYSICIANS] - As soon as possible
--- NOTE | 2018-11-21 13:37 | CM.ED ---
Social Work Note Face to face with pt to discuss multiple non-emergent visits. Introduced self and role and purpose of visit. Discuss that the pt had 32 visits last year and 4 this year and she has a care plan d/t to this. Inform SW will be notified each time she comes in to review services and encourage her to utilize additional services and review the inappropriateness of her visits to the ED. Also informed that pt's case sealer, Valerie Martinez, through her insurance is aware and will be reaching out to her to discuss alternative treatment options. Pt states that she feels like her body is shutting down and that is emergent and them refuses to make eye contact, and begins voluntary twitching her upper body and refuses to respond to questioning. Resources left with pt and staff notified. SW to continue to follow and assist as needed. Pt did follow part of EDCP in not contacting EMS for non-emergent transport today. Shara Gasca, SPEECH AND LANGUAGE SPECIALIST, [facility]
--- NOTE | 2018-11-21 13:50 | CT_ITS ---
STUDY: CT BRAIN WITHOUT CONTRAST REASON FOR EXAM: Female, 38 years old. Memory problems, confused, fatigue. RADIATION DOSAGE (If Supplied By Facility): CTDIvol = ( 60.81 ) mGy, DLP = ( 1089.89 ) mGycm TECHNIQUE: Transaxial CT imaging of the brain was performed without administration of intravenous contrast material. Individualized dose optimization techniques were used for this CT. COMPARISON: None. FINDINGS: Normal soft tissue structures. Normal calvarium. Normal size ventricles and extra-axial spaces for the patient's age. Normal white matter tracts of the cerebral hemispheres. Normal basal ganglia and thalami. Normal brainstem. Normal cerebellum. There is no intracranial hemorrhage. There are no findings of an acute ischemic infarction. Normal visualized paranasal sinuses. CT/Brain/Head without Contrast IMPRESSION: Normal unenhanced CT scan of the brain. Electronically Signed: Cedric Hou, at 15:30 EDT Tel , Service support ,
[2018-11-21] MEDS: 0.9% Normal Saline 1,000 ML 999 ML IV (14:16)
--- NOTE | 2018-11-21 14:20 | RAD_ITS ---
STUDY: X-RAY - RIGHT KNEE REASON FOR EXAM: Female, 38 years old. right knee pain all over/no injury TECHNIQUE: 4 view(s) of the knee. COMPARISON: None. FINDINGS: Normal visualized distal femur. Normal visualized proximal tibia and fibula. Normal proximal tibiofibular articulation. Normal medial femorotibial compartment. Normal lateral femorotibial compartment. Normal patellofemoral articulation. The soft tissue structures are unremarkable. RAD/Knee 4 or More Views IMPRESSION: Normal x-ray examination of the knee. Electronically Signed: Cedric Hou, at 15:12 EDT Tel , Service support ,
[2018-11-21 15:14] LABS: Bacteria 0 SEEN /hpf (None Seen); Mucous, Urine 0 SEEN /hpf (<or=2+); Red Blood Cells-Urine 0 SEEN /hpf (0-5)
[2018-11-21 15:21] LABS: Color, Urine Yellow (Yellow); Glucose, Dipstick Normal (Normal); Ketone-Dipstick 15 mg/dl (Negative); Leukocyte Esterase-Dipstick 100 /ul (Negative); Nitrite-Dipstick Negative (Negative); Occult Blood-Urine Negative /ul (Negative); Protein-Dipstick Negative (Negative); Specific Gravity, Urine 1.015 (1.002-1.030); Urine Bilirubin Dipstick Negative (Negative); Urine Clarity Sl. Cloudy (Clear); Urine Urobilinogen Normal (Normal)
[2018-11-21 16:03] LABS: Squamous Epithelial Cells - UA 0-5 SEEN /hpf (5-10); White Blood Cells 0-5 SEEN /hpf (0-5)
[2018-11-21 16:12] LABS: Amphetamine Urine VISTA NEGATIVE (<1000 ng/mL); Barbiturate Urine VISTA NEGATIVE (< 200 ng/mL); Benzodiazepine Urine VISTA NEGATIVE (< 200 ng/mL); Cocaine Urine VISTA NEGATIVE (< 300 ng/mL); Ecstacy Urine VISTA NEGATIVE (< 500 ng/mL); Methadone Urine VISTA NEGATIVE (< 300 ng/mL); PCP Urine VISTA NEGATIVE (< 25 ng/mL); THC Urine VISTA NEGATIVE (< 50 ng/mL); Vista UDS pH Range 7
--- NOTE | 2018-11-21 16:15 | ED.RN ---
PT REQUESTING TO LEAVE SO SHE CAN GO OUTSIDE AND SMOKE. EXPLAINED [facility] TOBACCO POLICY. IV REMOVED PT IS A FLIGHT RISK. CATHETER INTACT. NO ACTIVE BLEEDING. EMD AWARE.
[2018-11-21 16:27] VITALS: PULSE 90; RESP 16
== END 2018-11-21 16:27 | disposition home or self-care (01) ==
PROVIDERS: Emergency Provider Emergency Medicine; Family Provider Nurse Practitioner Family; PCP Nurse Practitioner Family
DX: R53.83 Other fatigue (principal); F31.9 Bipolar disorder, unspecified; F41.9 Anxiety disorder, unspecified; F17.200 Nicotine dependence, unspecified, uncomplicated; J45.909 Unspecified asthma, uncomplicated
CPT/HCPCS: 70450; 73564; 80307; 81001; 84443; 96360; 99283; J7030

== ENCOUNTER 2019-04-24 16:11 | Emergency (ER) | payer MEDICAID, SELFPAY ==
[2019-02-14 12:58] VITALS: BMI 29.7
[2019-04-24 16:12] VITALS: BP 139/84; PULSE 83; RESP 18; TEMP 36.3; O2SAT 95; BMI 29.7
--- NOTE | 2019-04-24 16:45 | ED.VIS.PSYCH ---
History of Present Illness Chief Complaint: Suicidal Informant: Patient Onset: Days Context: Gradual Onset Timing: Waxes and wanes Narrative: Patient has history of bipolar disorder and long-standing psychiatric issues. She presents today feeling worse over the past couple of days. She states she has racing thoughts and has been trying to use her normal coping mechanisms without relief. She feels that her medications need adjusted and doubts that she can do it on an outpatient setting. When asked specifically if she has thoughts of hurting herself she refuses to answer and states that that answer will not change her work-up. She does not feel that she can keep herself safe. Past Medical History - Allergies and Home Meds Allergies/Adverse Reactions: Allergies influenza virus vaccine, specific [influenza virus vacc,specific] Allergy (Verified 04/24/19 16:16) Other Latex, Natural Rubber Allergy (Verified 04/24/19 16:16) Rash [place] Allergy (Verified 04/24/19 16:16) Anaphylaxis meloxicam Allergy (Verified 04/24/19 16:16) Other metronidazole [From Flagyl] Allergy (Verified 04/24/19 16:16) Hives montelukast [From Singulair] Allergy (Verified 04/24/19 16:16) Rash morphine Allergy (Verified 04/24/19 16:16) Other Penicillins [PCN] Allergy (Verified 04/24/19 16:16) Unknown clindamycin Adverse Reaction (Verified 04/24/19 16:16) Nausea/Vom/Diarrhea prednisone Adverse Reaction (Verified 04/24/19 16:16) Other ANTIBACTERIAL SOAP Allergy (Uncoded 04/24/19 16:16) Hives HAND LICENSE ISSUER Allergy (Uncoded 04/24/19 16:16) Hives SEASONAL ALLERGIES Allergy (Uncoded 04/24/19 16:16) Other Primary Care Physician: Domenic Mejia MD [Primary Care Provider] - Smoking Status: Current every day smoker Review of Systems General: Denies: Chills, Fever Eyes: Reports: Blurred Vision - bilaterally ENT: Denies: Bilateral ear pain Cardiovascular: Denies: Chest pain Respiratory: Denies: Dyspnea Gastrointestinal: Denies: Abdominal pain, Nausea, Vomiting Musculoskeletal: Denies: Neck pain, Back pain Skin: Denies: Rash Neurological: Denies: Headache Psych: Reports: Depression, Anxiety Physical Exam Vital Signs/Narrative: Vital Signs Temp Pulse Resp BP Pulse Ox 04/24/19 16:12 97.4 F L 83 18 139/84 H 95 Inital Vital Signs reviewed: Yes General: Well nourished, Well developed Head: Normocephalic Eyes: EOMI ENT: Moist mucous membranes Cardiovascular: Regular rate, Regular rhythm Respiratory: No distress, CTA bilaterally Abdomen: Soft, Nontender, Normal bowel sounds Skin: Normal color Neurological: Alert, Oriented x3 Psych: Depressed, Flat Affect, - - Patient appears a flat affect, slow speech. She appears depressed. She refuses to answer questions about suicidal ideation. Diagnostic/Tx/Re-eval Laboratory Results 04/24/19 04/24/19 04/24/19 17:00 17:00 17:00 WBC 10.1 RBC 4.58 Hgb 13.5 Hct 38.5 MCV 84.1 MCH 29.5 MCHC 35.1 RDW Std Deviation 37.0 RDW Coeff of Lev 12.2 Plt Count 207 MPV 9.7 Immature Gran % (Auto) 0.300 Neut % (Auto) 75.2 H Lymph % (Auto) 17.6 L Yolo % (Auto) 5.7 Eos % (Auto) 1.0 Baso % (Auto) 0.2 Absolute Neuts (auto) 7.6 Absolute Lymphs (auto) 1.77 Nucleated RBC % 0 Sodium 128 L Potassium 3.8 Chloride 95 L Carbon Dioxide 25.0 Anion Gap 8 BUN 5 L Creatinine 0.58 Estim Creat Clear Calc 125.38 Est GFR (MDRD) Af Amer 147 Est GFR (MDRD) Non-Af 122 BUN/Creatinine Ratio 8.6 L Glucose 82 Calcium 8.6 Serum , Qual Urine Opiates Screen Urine Methadone Screen Ur Barbiturates Screen Ur Phencyclidine Scrn Ur Amphetamines Screen U Methamphetamin-MDMA U Benzodiazepines Scrn Urine Cocaine Screen U Cannabinoids Screen Ur Drug Screen Comment Ethyl Alcohol 9.0 04/24/19 04/24/19 17:00 17:10 WBC RBC Hgb Hct MCV MCH MCHC RDW Std Deviation RDW Coeff of Lev Plt Count MPV Immature Gran % (Auto) Neut % (Auto) Lymph % (Auto) Y[place] % (Auto) Eos % (Auto) Baso % (Auto) Absolute Neuts (auto) Absolute Lymphs (auto) Nucleated RBC % Sodium Potassium Chloride Carbon Dioxide Anion Gap BUN Creatinine Estim Creat Clear Calc Est GFR (MDRD) Af Amer Est GFR (MDRD) Non-Af BUN/Creatinine Ratio Glucose Calcium Serum , Qual NEGATIVE Urine Opiates Screen NEGATIVE Urine Methadone Screen NEGATIVE Ur Barbiturates Screen NEGATIVE Ur Phencyclidine Scrn NEGATIVE Ur Amphetamines Screen NEGATIVE U Methamphetamin-MDMA NEGATIVE U Benzodiazepines Scrn NEGATIVE Urine Cocaine Screen NEGATIVE U Cannabinoids Screen NEGATIVE Ur Drug Screen Comment Ethyl Alcohol Patient was seen by Stephan from social work. Patient has been accepted at [facility] where she has been treated previously. We are awaiting transport at this time. Disposition: [facility] Disposition - Plan for ED Patient: Disposition: [facility] Hospital or Unit Diagnosis: Suicidal ideation Referrals: Domenic Mejia MD [Primary Care Provider] -
[2019-04-24 17:09] LABS: Absolute Lymphocyte Count 1.77 X10^3/uL (0.83-4.51); Absolute Neutrophil Count 7.6 X10^3/uL (2.0-7.7); Basophil# 0.02 X10^3/uL; Basophil% 0.2 % (0-1); Hematocrit 38.5 % (37-47); Hemoglobin 13.5 g/dL (12.0-15.0); Lymphocyte # 1.77 X10^3/ul (4.0); Lymphocyte % 17.6 % (19-41); Mean Corp Hgb Conc 35.1 g/dL (32-36); Mean Corpuscular Hgb 29.5 pg (27.0-32.0); Mean Corpuscular Volume 84.1 fL (81-99); Mean Platelet Vol. 9.7 fl (6.2-12.0); Monocyte# 0.57 X10^3/uL; Monocyte% 5.7 % (0-10); NRBC Flagged by Analyzer 0 % (0-5); Neutrophil # 7.56 X10^3/uL (2.7-7.7); Neutrophil % 75.2 % (47-70); Platelet Count 207 K/mm3 (150-450); RBC Distribution Width CV 12.2 % (11.6-14.6); Red Blood Count 4.58 M/mm3 (4.2-5.4); White Blood Count 10.1 K/mm3 (4.4-11.0)
[2019-04-24 17:21] LABS: Anion Gap 8 (5-15); BUN 5 mg/dL (7-18); BUN/Creat Ratio 8.6 RATIO (10-20); Calcium,Total 8.6 mg/dL (8.5-10.1); Chloride 95 mmol/L (98-107); Creatinine, Serum 0.58 mg/dL (0.55-1.02); EST Glomerular Filtration Rate 122 mL/min (>60); Est Glom Filt Rate - Afr Amer 147 mL/min (>60); Estimated Creatinine Clearance 125.38 ml/min; Glucose 82 mg/dL (74-106); Potassium 3.8 mmol/L (3.5-5.1); Sodium Level 128 mmol/L (136-145)
[2019-04-24 17:38] VITALS: BP 128/84; PULSE 65; RESP 18; O2SAT 98
--- NOTE | 2019-04-24 17:40 | CM.ED ---
SOCIAL WORK ASSESSMENT INFORMANT: DR. GUPTA, NURSING REASON FOR CONSULT: MENTAL HEALTH/S.I. CHIEF COMPLIANT: PATIENT HAVING RACING THOUGHTS AND PARANOIA. PATIENT STATES WHILE ON A WALK YESTERDAY WAS TALKING TO HERSELF IN A NEGATIVE WAY. PATIENT STATES I DON'T TRUST MYSELF. IT IS NOT IN MY BEST INTEREST TO BE ALONE. 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 PATIENT FOLLOWS WITH [employer] [facility]. MISSION COMMANDER AT [facility] IS RADAMES SOLORZANO WHO IS PRESENT IN ED WITH PATIENT. ABUSE ISSUES: EMOTIONAL ABUSE SUBSTANCE ABUSE HX: HX OF ALCOHOL, PATIENT STATES HAS NOT DRANK IN 10 MONTHS. PATIENT REPORTS SMOKES CIGARETTES. PACK A DAY SMOKER. MENTAL ORIENTATION: ALERT AND ORIENTED X3 APPEARANCE/GENERAL BEHAVIOR: AGITATED, DIRECTABLE MOOD/AFFECT: FLAT AFFECT COMMUNICATION PATTERN:RESPONDS TO QUESTIONS THOUGHT PROCESS: PARANOID GENERAL INTELLECTUAL FUNCTIONING: AVERAGE RISK TO SELF/OTHERS: PATIENT WITH SUICIDAL IDEATION, NO PLAN OR INTENT DENIES HOMICIDAL IDEATION ASSESSMENT: MET WITH PATIENT IN ROOM. PATIENT LYING IN BED, MISSION COMMANDER THROUGH RADAMES JACKSON PRESENT IN ROOM. PATIENT GAVE PERMISSION FOR THIS WORKER TO SPEAK OPENLY WITH MISSION COMMANDER PRESENT. EXPLAINED THIS WORKER'S ROLE AND REASON FOR REFERRAL. PATIENT REPORTS HX OF ANXIETY, DEPRESSION AND WHAT SHE BELIEVES TO BE PTSD. PATIENT STATES HAS BEEN HAVING NEGATIVE AND PARANOID THOUGHTS. PATIENT WANTING HELP. PATIENT STATES I DON'T TRUST MYSELF. IT IS NOT IN MY BEST INTEREST TO BE ALONE. PATIENT WITH SITTER PROTOCOL IN PLACE. DISCUSSED WITH DR. GUPTA. PLAN: INPATIENT HOSPITALIZATION
[2019-04-24 17:47] LABS: Internal QC Validated? YES +Cl - CLEAR BKGD; Pregnancy, Serum, hCG Quali. NEGATIVE Negative
--- NOTE | 2019-04-24 17:58 | CM.ED ---
SOCIAL WORK CALL TO [facility] TO DISCUSS REFERRAL. PER INTAKE NURSE, IN NETWORK WITH PATIENT'S INSURANCE AND FEMALE BED AVAILABLE. INFORMED WAITING ON TOX SCREEN RESULTS. NURSE REQUESTING TO FAX REFERRAL ONCE ALL LABS AND TOX SCREEN RESULTS ARE BACK. REGI FLORES, MECHANICAL SYSTEMS DESIGN ENGINEER, DRYWALL SANDER.
--- NOTE | 2019-04-24 18:01 | ED.RN ---
talked with dr kline. white from social work attempting placement. currently working with [facility]
[2019-04-24 19:00] VITALS: RESP 16
[2019-04-24 19:07] LABS: Amphetamine Urine VISTA NEGATIVE (<1000 ng/mL); Barbiturate Urine VISTA NEGATIVE (< 200 ng/mL); Benzodiazepine Urine VISTA NEGATIVE (< 200 ng/mL); Cocaine Urine VISTA NEGATIVE (< 300 ng/mL); Ecstacy Urine VISTA NEGATIVE (< 500 ng/mL); Methadone Urine VISTA NEGATIVE (< 300 ng/mL); PCP Urine VISTA NEGATIVE (< 25 ng/mL); THC Urine VISTA NEGATIVE (< 50 ng/mL); Vista UDS pH Range 6
--- NOTE | 2019-04-24 19:11 | CM.ED ---
SOCIAL WORK TOX SCREEN RESULTS BACK AT THIS TIME. REFERRAL FAXED TO [facility]. REGI FLORES, BACK JOINER, EMAIL MANAGER.
[2019-04-24] MEDS: Loratadine 10 MG Tablet PO (19:14)
[2019-04-24] MEDS: Propranolol 10 MG Tablet PO (19:14)
[2019-04-24] MEDS: Famotidine 20 MG Tablet PO (19:14)
--- NOTE | 2019-04-24 19:36 | CM.ED ---
SOCIAL WORK CALL TO [facility]. NURSE REVIEWING REFERRAL AT THIS TIME. WILL CALL THIS WORKER BACK. VERIFIED PATIENT IS ALLOWED TO SMOKE AT FACILITY. PATIENT UPDATED. REGI FLORES, JAVASCRIPT UI DEVELOPER, CUSTOMER SERVICE SECURITY OFFICER.
[2019-04-24] MEDS: Nicotine Polacrilex 2 MG GUM PO (19:59)
[2019-04-24 20:00] VITALS: RESP 18
--- NOTE | 2019-04-24 20:36 | CM.ED ---
SOCIAL WORK CALL FROM [facility]. PATIENT ACCEPTED BY DR. SOSA. UPDATED STAFF AND PATIENT. SEM MANAGER TO WORK ON TRANSPORTATION. REGI FLORES, NUCLEAR STATION OPERATOR, MASON APPRENTICE.
--- NOTE | 2019-04-24 21:13 | CM.ED ---
SOCIAL [facility] REGI FLORES, CYLINDER DIE MACHINE HELPER, SAW BOSS.
[2019-04-24] MEDS: OXcarbazepine 600 MG Tablet PO (21:46)
[2019-04-24] MEDS: OXcarbazepine 300 MG Tablet PO (21:46)
[2019-04-24] MEDS: Benztropine 2 MG Tablet 0.5 MG PO (21:46)
[2019-04-24 21:59] VITALS: RESP 16
== END 2019-04-24 22:00 ==
PROVIDERS: Emergency Provider Emergency Medicine; Family Provider Family Medicine; PCP Family Medicine
DX: R45.851 Suicidal ideations (principal); F17.200 Nicotine dependence, unspecified, uncomplicated; Z88.0 Allergy status to penicillin; Z88.1 Allergy status to other antibiotic agents; F31.9 Bipolar disorder, unspecified
CPT/HCPCS: 80048; 80307; 80320; 84703; 85025; 99284; G0480

== ENCOUNTER 2019-06-09 13:31 | Emergency (ER) | payer MEDICAID, SELFPAY ==
[2019-05-30 13:22] VITALS: BMI 29.7
[2019-06-09 13:32] VITALS: BP 134/84; PULSE 87; RESP 16; TEMP 35.9
[2019-06-09 13:34] VITALS: BP 134/84; PULSE 87; RESP 16; TEMP 35.9; BMI 27.6
--- NOTE | 2019-06-09 13:51 | ED.VIS.GEN ---
History of Present Illness Chief Complaint: Abd Pain Informant: Patient Onset: Days Current Severity: Mild Narrative: Patient presents complaining of intermittent diarrhea for days she has a history of that condition for many years she is had prior outpatient work-up including blood test EGD colonoscopy, she is followed up with her outpatient providers including GI, she also has she believes bipolar disorder, she had some diarrhea today and she did not go to work and she indicates she needs a work excuse she has no other complaints she is had no fever no cough no abdominal pain, she was able to eat to breakfast burritos today drink multiple liquids such as water without difficulty no vomiting no fever no other complaints this is typical of her chronic diarrhea no antibiotics she works at [employer] and may have been exposed to coworkers were ill Past Medical History - Allergies and Home Meds Allergies/Adverse Reactions: Allergies influenza virus vaccine, specific [influenza virus vacc,specific] Allergy (Verified 04/24/19 16:16) Other Latex, Natural Rubber Allergy (Verified 04/24/19 16:16) Rash modoc Allergy (Verified 04/24/19 16:16) Anaphylaxis meloxicam Allergy (Verified 04/24/19 16:16) Other metronidazole [From Flagyl] Allergy (Verified 04/24/19 16:16) Hives montelukast [From Singulair] Allergy (Verified 04/24/19 16:16) Rash morphine Allergy (Verified 04/24/19 16:16) Other Penicillins [PCN] Allergy (Verified 04/24/19 16:16) Unknown clindamycin Adverse Reaction (Verified 04/24/19 16:16) Nausea/Vom/Diarrhea prednisone Adverse Reaction (Verified 04/24/19 16:16) Other ANTIBACTERIAL SOAP Allergy (Uncoded 04/24/19 16:16) Hives HAND BREAKER TENDER Allergy (Uncoded 04/24/19 16:16) Hives SEASONAL ALLERGIES Allergy (Uncoded 04/24/19 16:16) Other Primary Care Physician: Domenic Mejia MD [Primary Care Provider] - Past Medical History: - Smoking Status: Current every day smoker Review of Systems ROS: - Fluids as above General: Denies: Chills, Fever, Sweats Eyes: Denies: Visual changes - bilaterally, Diplopia ENT: Denies: Rhinorrhea, Sore throat Cardiovascular: Denies: Chest pain, Palpitations Respiratory: Denies: Dyspnea, Cough, Dyspnea on exertion Gastrointestinal: Reports: Diarrhea. Denies: Abdominal pain, Nausea, Vomiting, Melena, Hematochezia Genitourinary: Denies: Dysuria, Hematuria, Frequency Musculoskeletal: Denies: Back pain, Extremity Pain Skin: Denies: Rash, Wounds Neurological: Denies: Headache, Weakness, Numbness Physical Exam Vital Signs/Narrative: Vital Signs Temp Pulse Resp BP 06/09/19 13:34 96.7 F L 87 16 134/84 H 06/09/19 13:32 96.7 F L 87 16 134/84 H General: Well nourished, Well developed, No Acute Distress Head: Normocephalic, Atraumatic Eyes: Perrl, EOMI ENT: Moist mucous membranes, No rhinorrhea Neck: Supple, Nontender Cardiovascular: Regular rate, Regular rhythm, No murmurs Respiratory: No distress, CTA bilaterally, Chest nontender Abdomen: Soft, Nontender, Nondistended, Normal bowel sounds Back: Nontender, Normal Inspection Extremities: Nontender, No edema Skin: Normal color, No rash Neurological: Alert, Oriented x3, Cranial nerves II-XII grossly intact, Normal Strength, Normal Sensation Psychological: Normal affect, Normal Mood Diagnostic/Tx/Re-eval - Medical Decision Making She is vital signs are complete unremarkable clinically she looks well she appears very well-hydrated she is up walking around the emergency department the patient is in no distress her vital signs are unremarkable she is well-hydrated she is been eating and drinking well, during his stay in the emergency department she is been walking around without difficulty she is manifested no signs of diarrhea or any other acute syndrome she seems to be in a hurry indicating that she needs a work release because she did not go to work because of diarrhea I explained to her today as a courtesy we will provide her work release but in the future we cannot provide work releases for chronic conditions Home stable Impression final Acute recurrent diarrhea syndrome history of same ED Disposition - Plan for ED Patient: Diagnosis: Bipolar 1 disorder, Diarrhea Instructions: DIET, Vomiting or Diarrhea [4yr-Adult] Referrals: Domenic Mejia MD [Primary Care Provider] -
== END 2019-06-09 14:14 | disposition home or self-care (01) ==
LOC: ED 13:54
PROVIDERS: Emergency Provider Emergency Medicine; Family Provider Family Medicine; PCP Family Medicine
DX: K52.9 Noninfective gastroenteritis and colitis, unspecified (principal); F31.9 Bipolar disorder, unspecified; F17.200 Nicotine dependence, unspecified, uncomplicated
CPT/HCPCS: 99282

== ENCOUNTER 2019-08-26 10:27 | Emergency (ER) | payer MEDICAID, SELFPAY ==
[2019-08-26 10:31] VITALS: BP 119/88; PULSE 94; RESP 18; TEMP 36.4; O2SAT 96; BMI 28.8
[2019-08-26 11:33] LABS: Absolute Neutrophil Count 11.6 X10^3/uL (2.0-7.7); Basophil# 0.05 X10^3/uL; Basophil% 0.4 % (0-1); Eosinophil# 0.22 X10^3/uL; Eosinophils% 1.6 % (0-5); Hematocrit 45.4 % (37-47); Hemoglobin 15.1 g/dL (12.0-15.0); Lymphocyte % 10.7 % (19-41); Mean Corp Hgb Conc 33.3 g/dL (32-36); Mean Corpuscular Hgb 29.5 pg (27.0-32.0); Mean Corpuscular Volume 88.7 fL (81-99); Mean Platelet Vol. 10.8 fl (6.2-12.0); Monocyte# 0.64 X10^3/uL; Monocyte% 4.6 % (0-10); NRBC Flagged by Analyzer 0 % (0-5); Neutrophil # 11.59 X10^3/uL (2.7-7.7); Neutrophil % 82.3 % (47-70); Platelet Count 198 K/mm3 (150-450); RBC Distribution Width CV 12.5 % (11.6-14.6); RBC Distribution Width SD 40.8 fl (35.1-43.9); Red Blood Count 5.12 M/mm3 (4.2-5.4); White Blood Count 14.1 K/mm3 (4.4-11.0)
[2019-08-26 11:36] LABS: Internal QC Validated? YES +Cl - CLEAR BKGD; Pregnancy, Serum, hCG Quali. NEGATIVE Negative
[2019-08-26 11:43] LABS: Anion Gap 4 (5-15); BUN 15 mg/dL (7-18); BUN/Creat Ratio 15.5 RATIO (10-20); Calcium,Total 9.3 mg/dL (8.5-10.1); Chloride 111 mmol/L (98-107); Creatinine, Serum 0.97 mg/dL (0.55-1.02); EST Glomerular Filtration Rate 67 mL/min (>60); Est Glom Filt Rate - Afr Amer 82 mL/min (>60); Estimated Creatinine Clearance 74.97 ml/min; Glucose 75 mg/dL (74-106); Potassium 3.9 mmol/L (3.5-5.1); Sodium Level 141 mmol/L (136-145)
[2019-08-26] MEDS: 0.9% Normal Saline 1,000 ML 1000 ML IV (11:50)
[2019-08-26 13:11] VITALS: BP 121/90; BP 131/90; BP 133/82; PULSE 74; PULSE 82; PULSE 86
[2019-08-26 13:12] VITALS: BP 131/90; BP 133/82; PULSE 74; PULSE 82; RESP 12; RESP 20; O2SAT 98; O2SAT 99
--- NOTE | 2019-08-26 13:36 | ED.VISSUMM ---
- ER Visit Summary Date of Service: 08/26/19 Chief Complaint: [Dizziness] History of Present Illness: The patient is a 38 F [presents the emergency department with an episode of dizziness and near syncope today while at work. 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 Patient felt nauseated. Patient states that she has had a little bit of a cough for couple days. She has had a little bit of a runny nose and she has had multiple sick contacts that is been diagnosed with bronchitis and influenza. Patient's had some mild nausea. Patient currently being treated with Flagyl for bacterial vaginosis. Patient has been eating and drinking normally. She denies any chest pain. She does have history of asthma and bipolar disorder as well as anxiety.] Physical Examination: [HEENT-PERRLA, EOMI. Cranial nerves II through XII grossly intact. TMs clear. Mucous membranes moist. No adenopathy. Cardiovascular-regular rate and rhythm without murmur or ectopy Lungs-clear to auscultation, chest wall stable without crepitus or subcu emphysema Abdomen-normoactive bowel sounds, soft, nontender, no rebound or rigidity, no peritoneal signs. Neuro bart-enbkzd-jweg and heel brito testing within normal limits, negative Romberg, negative pronator, fundi benign Extremities-intact ?4, normal range of motion, normal pulses, atraumatic] Test Results: [CBC with differential obtained showed an elevated white count of 14.1, hemoglobin 15, hematocrit 45, plates 198. Chemistries unremarkable. Influenza screen was negative. hCG was negative. Orthostatics were negative. I ordered a chest x-ray however patient refused it.] Static vital signs were negative. Emergency Department Course and Treatment: [This point I discussed results with patient and discussed obtaining a chest x-ray however she refused it. Patient states that she is really not been short of breath or coughing up any phlegm or had any fevers. Patient I suspect likely has a viral URI. Patient understands I wanted to obtain a chest x-ray to rule out pneumonia although my suspicion was low.] Treatment Plan: [Patient advised to push fluids and get lots of rest.] Disposition: [Discharged home in stable condition] Impression: [Near syncope-etiology uncertain Viral URI] This note was generated with Dragon dictation software. It may contain incorrect words, spelling, and punctuation that were not noted in review of the chart prior to signing ED Disposition - Plan for ED Patient: Referrals: Domenic Mejia MD [Primary Care Provider] -
--- NOTE | 2019-08-26 13:38 | ED.DEP ---
ED Disposition - Plan for ED Patient: Instructions: NEAR SYNCOPE, Unknown, URI, Viral, No Abx (Adult) Referrals: Domenic Mejia MD [Primary Care Provider] - 3-5 Days
== END 2019-08-26 14:15 | disposition home or self-care (01) ==
PROVIDERS: Emergency Provider Emergency Medicine; Family Provider Family Medicine; PCP Family Medicine
DX: R55 Syncope and collapse (principal); R42 Dizziness and giddiness; J06.9 Acute upper respiratory infection, unspecified; F41.9 Anxiety disorder, unspecified; F31.9 Bipolar disorder, unspecified; J45.909 Unspecified asthma, uncomplicated; N76.0 Acute vaginitis; Z79.2 Long term (current) use of antibiotics; Z79.51 Long term (current) use of inhaled steroids; Z79.899 Other long term (current) drug therapy; Z72.0 Tobacco use
CPT/HCPCS: 80048; 84703; 85025; 87804; 96361; 96374; 99285; J7030; A4216; J2405

== ENCOUNTER → 2020-01-29 13:54 | Outpatient (CLI) | payer MEDICAID, SELFPAY ==
[2019-11-23 13:42] VITALS: BMI 28.8
--- NOTE | 2020-01-31 16:03 | NURSING ---
THIS NURSE NOTIFIED PT BY PHONE OF NEGATIVE TEST RESULTS FOR COVID-19. INSTRUCTED TO F/U WITH PCP NEEDED. REQUESTED COPY OF LAB RESULT, PHONE NUMBER FOR MEDICAL RECORDS GIVEN.
== END ==
PROVIDERS: PCP Family Medicine; Visit Provider Family Medicine
DX: Z20.828 Contact with and (suspected) exposure to other viral communicable diseases (principal)
CPT/HCPCS: 87635; 94799; G2023; U0004

== ENCOUNTER 2020-04-27 10:18 | Emergency (ER) | payer MEDICAID, SELFPAY ==
[2019-11-23 13:42] VITALS: BMI 28.8
[2020-04-27 10:18] VITALS: BP 129/88; PULSE 64; RESP 16; TEMP 36.7; O2SAT 98; BMI 32.7
--- NOTE | 2020-04-27 10:34 | ED.DCSUM_ITS ---
History of Present Illness Chief Complaint: Nausea/Vomiting Narrative: This patient is a 39-year-old female who presents with intermittent vomiting for the past 2 months. She denies abdominal pain. She has had some intermittent diarrhea but believes this was related to something that she ate. No fevers. She states she has been seen in urgent care for this. She had outpatient blood work and ultrasound. She thinks this was 1 to 2 weeks ago. She is actually scheduled to see gastroenterology next week. Past Medical History - Allergies and Home Meds Allergies/Adverse Reactions: Allergies influenza virus vaccine, specific [influenza virus vacc,specific] Allergy (Verified 04/27/20 10:25) Other Latex, Natural Rubber Allergy (Verified 04/27/20 10:25) Rash [place] Allergy (Verified 04/27/20 10:25) Anaphylaxis meloxicam Allergy (Verified 04/27/20 10:25) Other metronidazole [From Flagyl] Allergy (Verified 04/27/20 10:25) Hives montelukast [From Singulair] Allergy (Verified 04/27/20 10:25) Rash morphine Allergy (Verified 04/27/20 10:25) Other Penicillins [PCN] Allergy (Verified 04/27/20 10:25) Unknown clindamycin Adverse Reaction (Verified 04/27/20 10:25) Nausea/Vom/Diarrhea prednisone Adverse Reaction (Verified 04/27/20 10:25) Other ANTIBACTERIAL SOAP Allergy (Uncoded 04/27/20 10:25) 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 Denies: Abdominal pain Musculoskeletal: Denies: Myalgias, Arthralgias Skin: Denies: Rash Neurological: Denies: Headache Allergy: Denies: Uticaria Physical Exam Vital Signs/Narrative: Vital Signs Temp Pulse Resp BP Pulse Ox 04/27/20 10:18 98.1 F 64 16 129/88 H 98 Inital Vital Signs reviewed: Yes General: Well nourished Head: Normocephalic Eyes: EOMI ENT: Moist mucous membranes Neck: Supple Cardiovascular: Regular rate, Regular rhythm Respiratory: No distress, CTA bilaterally Abdomen: Soft, Nontender, Nondistended Skin: Normal color Neurological: Alert Psychological: - - Blunt affect Diagnostic/Tx/Re-eval Laboratory Results 04/27/20 04/27/20 04/27/20 10:35 10:35 10:35 WBC 9.0 RBC 4.77 Hgb 14.0 Hct 41.9 MCV 87.8 MCH 29.4 MCHC 33.4 RDW Std Deviation 39.2 RDW Coeff of Lev 12.1 Plt Count 187 MPV 10.6 Immature Gran % (Auto) 0.200 Neut % (Auto) 63.4 Lymph % (Auto) 25.3 [place] % (Auto) 7.5 Eos % (Auto) 3.2 Baso % (Auto) 0.4 Absolute Neuts (auto) 5.7 Absolute Lymphs (auto) 2.27 Nucleated RBC % 0 Sodium 141 Potassium 3.9 Chloride 113 H Carbon Dioxide 24.0 Anion Gap 4 L BUN 15 Creatinine 0.80 Estim Creat Clear Calc 89.99 Est GFR (MDRD) Af Amer 101 Est GFR (MDRD) Non-Af 83 BUN/Creatinine Ratio 18.6 Glucose 107 H Calcium 8.5 Total Bilirubin 0.40 AST 10 L ALT 19 Alkaline Phosphatase 73 Total Protein 6.8 Albumin 3.6 Globulin 3.2 Albumin/Globulin Ratio 1.1 Lipase 110 Serum , Qual NEGATIVE - Medical Decision Making Laboratory studies as above unremarkable. Patient does have follow-up with arnol roenterology next week. She has a benign exam at this time. I do not feel any further emergent diagnostic testing is indicated. Patient advised to follow-up as an outpatient but does understand return for new or worsening symptoms. Patient discharged. ED Disposition - Plan for ED Patient: Disposition: Home or Assisted Living Diagnosis: Vomiting Instructions: ED Nausea Vomiting Adult Referrals: Domenic Mejia MD [Primary Care Provider] -
[2020-04-27 10:44] LABS: Absolute Lymphocyte Count 2.27 X10^3/uL (0.83-4.51); Absolute Neutrophil Count 5.7 X10^3/uL (2.0-7.7); Basophil# 0.04 X10^3/uL; Basophil% 0.4 % (0-1); Eosinophil# 0.29 X10^3/uL; Eosinophils% 3.2 % (0-5); Hematocrit 41.9 % (37-47); Lymphocyte # 2.27 X10^3/ul (4.0); Lymphocyte % 25.3 % (19-41); Mean Corp Hgb Conc 33.4 g/dL (32-36); Mean Corpuscular Hgb 29.4 pg (27.0-32.0); Mean Corpuscular Volume 87.8 fL (81-99); Mean Platelet Vol. 10.6 fl (6.2-12.0); Monocyte# 0.67 X10^3/uL; Monocyte% 7.5 % (0-10); NRBC Flagged by Analyzer 0 % (0-5); Neutrophil % 63.4 % (47-70); Platelet Count 187 K/mm3 (150-450); RBC Distribution Width CV 12.1 % (11.6-14.6); RBC Distribution Width SD 39.2 fl (35.1-43.9); Red Blood Count 4.77 M/mm3 (4.2-5.4)
[2020-04-27 10:55] LABS: Internal QC Validated? YES +Cl - CLEAR BKGD; Pregnancy, Serum, hCG Quali. NEGATIVE Negative
[2020-04-27 11:10] LABS: ALB/GLOB Ratio 1.1 RATIO (0.9-2.4); AST(SGOT) 10 U/L (15-37); Alanine Aminotransfer ALT/SGPT 19 U/L (13-56); Albumin, Serum 3.6 g/dL (3.2-5.0); Alkaline Phosphatase 73 U/L (45-117); Anion Gap 4 (5-15); BUN 15 mg/dL (7-18); BUN/Creat Ratio 18.6 RATIO (10-20); Calcium,Total 8.5 mg/dL (8.5-10.1); Chloride 113 mmol/L (98-107); EST Glomerular Filtration Rate 83 mL/min (>60); Est Glom Filt Rate - Afr Amer 101 mL/min (>60); Estimated Creatinine Clearance 89.99 ml/min; Globulin 3.2 g/dL (2.2-4.2); Glucose 107 mg/dL (74-106); Lipase 110 U/L (73-393); Potassium 3.9 mmol/L (3.5-5.1); Protein, Total 6.8 g/dL (6.4-8.2); Sodium Level 141 mmol/L (136-145)
== END 2020-04-27 11:28 | disposition home or self-care (01) ==
LOC: ED 11:26
PROVIDERS: Emergency Provider Emergency Medicine; PCP Family Medicine
DX: R11.2 Nausea with vomiting, unspecified (principal); F17.200 Nicotine dependence, unspecified, uncomplicated; R19.7 Diarrhea, unspecified; Z79.899 Other long term (current) drug therapy; Z79.51 Long term (current) use of inhaled steroids; F41.9 Anxiety disorder, unspecified; F31.9 Bipolar disorder, unspecified
CPT/HCPCS: 36415; 80053; 83690; 84703; 85025; 99282

== ENCOUNTER 2020-07-05 08:10 | Emergency (ER) | payer MEDICAID, SELFPAY ==
[2020-07-05 08:11] VITALS: BP 133/85; PULSE 89; RESP 17; TEMP 36.2; O2SAT 98; BMI 33.6
[2020-07-05 08:25] VITALS: O2SAT 99
--- NOTE | 2020-07-05 08:33 | ED.VIS.GEN ---
History of Present Illness Chief Complaint: Shortness of Breath Narrative: This patient is a 39-year-old female who presents with a cough. She reports a history of COPD. However she has had increased cough and shortness of breath the last couple of days and particularly this morning. She complains of a sore throat. No fevers. She has chronic intermittent vomiting, this is not a new symptom. She denies diarrhea. No abdominal pain. No chest pain. Past Medical History - Allergies and Home Meds Allergies/Adverse Reactions: Allergies influenza virus vaccine, specific [influenza virus vacc,specific] Allergy (Verified 07/05/20 08:13) Other Latex, Natural Rubber Allergy (Verified 07/05/20 08:13) Rash inupiat Allergy (Verified 07/05/20 08:13) Anaphylaxis meloxicam Allergy (Verified 07/05/20 08:13) Other metronidazole [From Flagyl] Allergy (Verified 07/05/20 08:13) Hives montelukast [From Singulair] Allergy (Verified 07/05/20 08:13) Rash morphine Allergy (Verified 07/05/20 08:13) Other Penicillins [PCN] Allergy (Verified 07/05/20 08:13) Unknown clindamycin Adverse Reaction (Verified 07/05/20 08:13) Nausea/Vom/Diarrhea prednisone Adverse Reaction (Verified 07/05/20 08:13) Other ANTIBACTERIAL SOAP Allergy (Uncoded 07/05/20 08:13) 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 Denies: Bilateral ear pain Cardiovascular: Denies: Chest pain Respiratory: Reports: Dyspnea, Cough Gastrointestinal: Reports: Nausea, Vomiting. Denies: Diarrhea Musculoskeletal: Denies: Myalgias, Arthralgias Skin: Denies: Rash Neurological: Denies: Headache Physical Exam Vital Signs/Narrative: Vital Signs Temp Pulse Resp BP Pulse Ox 07/05/20 08:11 97.2 F L 89 17 133/85 H 98 Inital Vital Signs reviewed: Yes General: Well nourished Head: Normocephalic Eyes: EOMI ENT: Moist mucous membranes Neck: Supple Cardiovascular: Regular rate, Regular rhythm Respiratory: No distress, CTA bilaterally Abdomen: Soft, Nontender Skin: Normal color Neurological: Alert Psychological: Normal affect Diagnostic/Tx/Re-eval Impressions Chest X-Ray 07/05/20 08:40 IMPRESSION: Normal x-ray examination of the chest. Electronically Signed: Jose Roman MD at 9:18 EDT Tel , Service support , 07/05/20 08:40 CXR [Chest 1 View (Portable)] [RAD] Stat - Medical Decision Making Chest x-ray is normal. Covid swab was sent. This is pending the time of this dictation. Patient was provided a work note for 10 days from symptom onset due to concern for possible coronavirus. Patient understands to return for new or worsening symptoms. Patient discharged. ED Disposition - Plan for ED Patient: Disposition: Home or Assisted Living Diagnosis: Bronchitis Instructions: Acute Bronchitis Referrals: Domenic Mejia MD [Primary Care Provider] -
--- NOTE | 2020-07-05 08:40 | RAD_ITS ---
STUDY: X-RAY CHEST REASON FOR EXAM: Female, 39 years old. sob, cough TECHNIQUE: Single AP portable view of the chest. COMPARISON: 06/12/2018 FINDINGS: The lungs are clear and expanded. There is no demonstrated pleural abnormality. Normal size heart. Normal mediastinum and jennifer. Normal visualized pulmonary arteries. Normal visualized aortic arch and descending thoracic aorta. Normal visualized thoracic spine. Normal visualized ribs, clavicles, and shoulders. There is no demonstrated abnormality of the visualized soft tissue structures of the upper abdomen. RAD/Chest 1 View (Portable) IMPRESSION: Normal x-ray examination of the chest. Electronically Signed: Jose Roman MD at 9:18 EDT Tel , Service support ,
== END 2020-07-05 09:54 | disposition home or self-care (01) ==
PROVIDERS: Emergency Provider Emergency Medicine; PCP Family Medicine
DX: J40 Bronchitis, not specified as acute or chronic (principal); J44.9 Chronic obstructive pulmonary disease, unspecified; F17.200 Nicotine dependence, unspecified, uncomplicated; Z88.0 Allergy status to penicillin; Z88.1 Allergy status to other antibiotic agents; Z88.8 Allergy status to other drugs, medicaments and biological substances; Z91.040 Latex allergy status
CPT/HCPCS: 71045; 87635; 99282; U0003

== ENCOUNTER 2020-08-11 10:22 | Outpatient (RCR) | payer MEDICAID, SELFPAY ==
--- NOTE | 2020-08-11 09:00 | BH.SGPN.GN ---
Behaviors/Verbalizations/Mental Status: []Client alert and oriented, casually dressed. Eye contact fair. Motor activity appropriate. Speech within normal limits. Affect incongruent AEB laughter at inappropriate times, mood anxious and dysthymic. Thoughts linear, logical, no signs of hallucinations or delusions. Reviewed client?s symptom tracker, no risk or plan for suicide ideation as of 08/11/20. Client Response/Progress/Benefit: []Client responded well to session, engaged with group members and listened to others share in discussion as it was client's first day of IOP. Shared her overall goals for IOP included ?reduce the amount of side comments at work and decrease anxiety.? Client stated her emotion for the day as ?lonely.? Benefited from group as client established rapport with other group members and discussed her stressors and goals for group. Client will continue IOP to decrease anxiety symptoms, improve daily functioning, and learn healthy coping skills. Narrative Note: []
--- NOTE | 2020-08-11 10:12 | BH.SGPN.GN ---
Behaviors/Verbalizations/Mental Status: [Client alert and oriented, casually dressed and groomed. Eye contact good. Motor activity appropriate. Speech within normal limits. Affect flat, mood depressed. Thoughts linear, logical, no signs of hallucinations or delusions. Client Response/Progress/Benefit: []Client passive participant as evidenced by taking notes and nodding throughout discussion. Client connected with the discussion about how distorted thought patterns can reinforce mental health symptoms and impact self-worth. Client noted that she connects with mental filtering and personalization. Client agreed with peers that distortions often lead to self-criticism and can keep people stuck. Appeared to benefit from increasing awareness of cognitive distortions and how they can impact emotions and behaviors. First day of IOP tx. Will continue IOP tx to prevent decompensation, learn healthy coping skills, and improve daily functioning. Narrative Note: []
--- NOTE | 2020-08-11 10:59 | BH.COMM_ITS ---
Communication Note - Communication with Client Communication Note: Met with pt at 830a to complete intial paperwork. No s ignificant changes since pre-admission screening. Completed [facility] with low risk.
--- NOTE | 2020-08-11 10:59 | BH.COMM ---
Communication Note - Communication with Client Communication Note: Met with pt at 830a to complete intial paperwork. No significant changes since pre-admission screening. Completed [facility] with low risk.
--- NOTE | 2020-08-11 11:15 | BH.SGPN.GN ---
Behaviors/Verbalizations/Mental Status: []Client alert and oriented, casual dress, hygiene fair. Eye contact fair. Motor activity appropriate. Speech within normal limits. Affect flat, mood depressed and anxious. Thoughts linear, logical, no signs of hallucinations or delusions. Client Response/Progress/Benefit: []Client was an engaged participant AEB client nodding head to others comments, taking notes, and completing worksheet. Client attentive during psychoeducation and additional discussion on cognitive distortions. Client engaged in discussion about how to reframe distorted thoughts into more realistic, rational statements. Client shared her distorted thought is I am stupid. Client able to reframe distorted thought to I am beautiful and good at many things. Client seemed to benefit from practicing identifying and reframing distorted thoughts. To continue IOP to increase healthy coping skills, improve daily functioning and prevent decompensation. Narrative Note: []
--- NOTE | 2020-08-13 13:43 | BH.COMM ---
Communication Note - Communication with Client Communication Note: No call/ no show for IOP today. Transportation was at her house and she did not show. Called and left VM.
--- NOTE | 2020-08-15 15:48 | BH.DS_ITS ---
Discharge Summary - Demographics Date of Admission:: 08/11/20 Discharge Date: 08/15/20 Presenting Problems at Admission:: Pt is a 39 year old female with hx of Bipolar and JEREMÍAS. Previous psychiatric admission to [place] in 2019. Referred to [facility] by [facility] whom she had called multiple times in the past weeks. Reports worsening depression since May which has significantly impacted her functioning. Has not been to work in several months due to depressive symptoms. Primary trigger to depression is related to medical issues notably vomiting spells. Numerous visits to PCP, urgent care, and ER with no improvement. Pt reports bloodwork always comes back OK. One physician reported to her that her symptoms were caused by depression. Endorses increased sleep, no motivation, low energy, anhedonia, and not being able to complete ADLs. Has not showered in 7 days. States I'm stuck. Denies panic or anxiety. Lives alone. Limited support. Denies substance abuse. Denies HI or psychosis. Family hx of Bipolar. Linked with counseling and psychiatry with limited benefit. Medication compliant. Reports that she spends her whole day alone in her apartment. Due to MH symptoms impacting functioning, limited benefit from traditional outpatient, and limited coping skills recommended [facility] level of care. Discharge Diagnoses:: Bipolar, most recent episode depressed. F31.32 Reason for Discharge:: Pt only attended one day of IOP and did not return. No call/ No show for appointment with psychiatrist. Attempted to reach out however pt did not respond. - Treatment Progress During Treatment & Response: No progress noted. Pt only attended one day of [facility]. Due to poor attendance pt never met with psychiatrist for evaluation or treatment planning. Also never met with therapist to complete [facility] Treatment Plan or psychosocial Issues Still to be Addressed:: Depression, MH impacting functioning, Discharge Recommendations/Instructions:: Recommended to follow up with established counseling and psychiatry at [facility]. Pt is linked with [facility] for psychiatry and [facility] for counseling. Discharge Handout: Complete Discharge Handout with client on aftercare options and continuity of care.
== END 2020-08-15 16:02 | disposition home or self-care (01) ==
LOC: BHIOP 10:22
PROVIDERS: PCP Family Medicine; Referring Provider Psychiatry & Neurology Psychiatry; Visit Provider Psychiatry & Neurology Psychiatry
DX: F31.32 Bipolar disorder, current episode depressed, moderate (principal)
CPT/HCPCS: H2020

== ENCOUNTER 2020-08-29 05:41 | Emergency (ER) | payer MEDICAID, SELFPAY ==
[2020-08-29 05:42] VITALS: BP 155/98; PULSE 88; RESP 18; TEMP 36.3; O2SAT 96; BMI 34.8
--- NOTE | 2020-08-29 06:01 | ED.VIS.HA ---
History of Present Illness Chief Complaint: Headache Informant: Patient Onset: Hours - 6-7 Context: Activity - awoke with pain Timing: Continuous Location: aching, frontal, nonlateralizing Current Severity: Moderate Maximum Severity: Moderate Worsened by: light Relieved by: nothing but hasn't taken anything Associated Symptoms: Nausea, Vomiting, Photophobia. Negative for: Fever, Sore Throat, Sinus Pressure, Numbness, Tingling, Visual Changes, Blurred Vision, Visual Loss Injury: - - no injury or recent illness Narrative: Patient presents with pain in her upper neck as well as a headache that seems to go from that area to her forehead, all of this has been present since she woke up hours ago, she has vomited twice, the severity of the discomfort seem to correlate with her nausea, and she states she has a history of chronic arthritis in her neck, possibly other areas, that has not been formally diagnosed as rheumatoid arthritis or polymyalgia rheumatica. She had no recent injury. She denies any fevers, chills, or stiffness, but the neck hurts more to move back and forth. She also states she has a history of vomiting recurrently prior to the onset of this episode. She states as a result she has been studied with an EGD that was inconclusive or did not show much of anything. She states she usually takes naproxen for this pain, but cannot this morning because of the vomiting and nausea and she does not want to make the latter worse by doing so. She denies having any peripheral neurologic symptoms. She denies a history in the family of cerebral aneurysms that she knows of. She denies any loss of consciousness or other systemic symptoms. No recent illnesses. She does have a history of COPD, admits that she continues to smoke although she knows that she probably should not, and states that her COPD is stable and not exacerbated right now. - Past Medical History (1) COPD (chronic obstructive pulmonary disease) Status: Chronic (2) Anemia Status: Chronic (3) Anxiety Status: Chronic (4) Depression Status: Chronic (5) Bipolar 1 disorder Status: Chronic Past Medical History - Allergies and Home Meds Allergies/Adverse Reactions: Allergies influenza virus vaccine, specific [influenza virus vacc,specific] Allergy (Verified 08/29/20 05:46) Other Latex, Natural Rubber Allergy (Verified 08/29/20 05:46) Rash [place] Allergy (Verified 08/29/20 05:46) Anaphylaxis meloxicam Allergy (Verified 08/29/20 05:46) Other metronidazole [From Flagyl] Allergy (Verified 08/29/20 05:46) Hives montelukast [From Singulair] Allergy (Verified 08/29/20 05:46) Rash morphine Allergy (Verified 08/29/20 05:46) Other Penicillins [PCN] Allergy (Verified 08/29/20 05:46) Unknown clindamycin Adverse Reaction (Verified 08/29/20 05:46) Nausea/Vom/Diarrhea prednisone Adverse Reaction (Verified 08/29/20 05:46) Other ANTIBACTERIAL SOAP Allergy (Uncoded 08/29/20 05:46) 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 Denies: Abdominal pain, Diarrhea Genitourinary: Denies: Dysuria, Hematuria, Frequency Musculoskeletal: Reports: Neck pain. Denies: Back pain, Extremity Pain Skin: Denies: Rash, Wounds Neurological: Reports: Headache. Denies: Weakness, Numbness Physical Exam Vital Signs/Narrative: Vital Signs Temp Pulse Resp BP Pulse Ox 08/29/20 05:42 97.3 F L 88 18 155/98 H 96 Inital Vital Signs reviewed: Yes General: Well nourished, Well developed, - - well-appearing, nad Head: NC, AT Eyes: Perrl, EOMI ENT: Moist mucous membranes, No rhinorrhea Neck: Supple, No Lymphadenopathy, No Meningismus, Paraspinal Tenderness - bilat, mild, near occiput, posterior to mastoid processes; no lesions Cardiovascular: Regular rate, Regular rhythm, No murmurs Respiratory: No distress, CTA bilaterally, Chest nontender Back: Nontender, Normal Inspection Extremities: Nontender, No edema Skin: Normal color, No rash Neuro: Alert, Oriented x3, Cranial nerves II-XII grossly intact, Normal Strength, Normal Sensation, Normal Gait Psychological: Normal affect, Normal Mood Diagnostic/Tx/Re-eval - Medical Decision Making I suspect patient is having musculoskeletal neck pain, which often causes/triggers a primary headache syndrome. Hers has other symptoms that are consistent with a vascular headache. Therefore my recommendation was injections of Toradol and Reglan. I do not think she needs a CT or other imaging at this time, and I do not think she has meningitis. I discussed all this with her and she was in agreement, however she questioned each medications effects, possible side effects, and my reasoning for recommending them to her. Although she is on Cogentin which will make her less likely to develop akathisia with the Reglan, she refused it and would rather just have a dose of Zofran for her nausea which was given along with the injection of Toradol. On reevaluation she feels much better and is ready to go home. Given appropriate discharge instructions. ED Disposition - Plan for ED Patient: Disposition: Home or Assisted Living Diagnosis: Neck arthritis, Migraine headache Instructions: ED Back and Neck Pain, General Referrals: Domenic Mejia MD [Primary Care Provider] - 3-5 Days if not improving
[2020-08-29] MEDS: Ondansetron ODT 4 MG Tablet 8 MG PO (06:03)
[2020-08-29] MEDS: Ketorolac 60 MG/2 ML Vial IM (06:03)
[2020-08-29 06:56] VITALS: RESP 16
--- NOTE | 2020-08-29 06:57 | ED.RN ---
PT OBSERVED ON SHOT TIME FOR GREATER THAN 15 MINUTES, NO REACTION NOTED BY THIS RN. PT D/C.
== END 2020-08-29 06:58 | disposition home or self-care (01) ==
LOC: ED 06:30
PROVIDERS: Emergency Provider Emergency Medicine; PCP Family Medicine
DX: M47.812 Spondylosis without myelopathy or radiculopathy, cervical region (principal); G43.909 Migraine, unspecified, not intractable, without status migrainosus; J44.9 Chronic obstructive pulmonary disease, unspecified; F31.9 Bipolar disorder, unspecified; F41.9 Anxiety disorder, unspecified; D64.9 Anemia, unspecified; R11.2 Nausea with vomiting, unspecified; Z88.0 Allergy status to penicillin; Z88.1 Allergy status to other antibiotic agents; Z88.8 Allergy status to other drugs, medicaments and biological substances; Z91.040 Latex allergy status
CPT/HCPCS: 96372; 99285

== ENCOUNTER 2020-11-08 03:23 | Emergency (ER) | payer MEDICAID, SELFPAY ==
[2020-11-08 03:24] VITALS: BP 132/86; PULSE 86; RESP 15; TEMP 36.9; O2SAT 97; BMI 33.9
--- NOTE | 2020-11-08 04:25 | ED.VIS.HA ---
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 Patient states her neck pain caused her to have headaches. She states she had a headache for the past few hours. She normally takes Naprosyn at home but did not take it because she is nauseous. Last time she had similar symptoms she was given Zofran and Toradol and felt better. She notes she did have some breakthrough vaginal bleeding with the Toradol but followed up with her LEAF SORTER who states that can be normal. Patient denies any vision changes. She denies any fever or chills. She denies any rash. No other complaints at this time. Patient states the headache is mostly in the back of her head. Past Medical History - Allergies and Home Meds Allergies/Adverse Reactions: Allergies influenza virus vaccine, specific [influenza virus vacc,specific] Allergy (Verified 11/08/20 03:28) Other Latex, Natural Rubber Allergy (Verified 11/08/20 03:28) Rash [place] Allergy (Verified 11/08/20 03:28) Anaphylaxis meloxicam Allergy (Verified 11/08/20 03:28) Other metronidazole [From Flagyl] Allergy (Verified 11/08/20 03:28) Hives montelukast [From Singulair] Allergy (Verified 11/08/20 03:28) Rash morphine Allergy (Verified 11/08/20 03:28) Other Penicillins [PCN] Allergy (Verified 11/08/20 03:28) Unknown clindamycin Adverse Reaction (Verified 11/08/20 03:28) Nausea/Vom/Diarrhea prednisone Adverse Reaction (Verified 11/08/20 03:28) Other ANTIBACTERIAL SOAP Allergy (Uncoded 08/29/20 05:46) 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 Denies: Visual changes - bilaterally, Diplopia ENT: Denies: Rhinorrhea, Sore throat Cardiovascular: Denies: Chest pain, Palpitations Respiratory: Denies: Dyspnea, Cough, Dyspnea on exertion Gastrointestinal: Reports: Nausea. Denies: Abdominal pain, Vomiting, Diarrhea, Melena, Hematochezia Genitourinary: Denies: Dysuria, Hematuria, Frequency Musculoskeletal: Reports: Arthralgias, Neck pain. Denies: Back pain, Extremity Pain Skin: Denies: Rash, Wounds Neurological: Reports: Headache. Denies: Weakness, Numbness Physical Exam Vital Signs/Narrative: Vital Signs Temp Pulse Resp BP Pulse Ox 11/08/20 03:24 98.5 F 86 15 132/86 H 97 Inital Vital Signs reviewed: Yes General: Well nourished, Well developed Head: NC, AT Eyes: Perrl, EOMI ENT: Moist mucous membranes, No rhinorrhea, TM's clear. Negative for: Sinus tenderness Neck: Supple, No Lymphadenopathy, No JVD, Nontender, No Meningismus. Negative for: Paraspinal Tenderness Cardiovascular: Regular rate, Regular rhythm, No murmurs Respiratory: No distress, CTA bilaterally, Chest nontender Abdomen: Soft, Nontender, Nondistended, Normal bowel sounds Back: Nontender, Normal Inspection Extremities: Nontender, No edema Skin: Normal color, No rash Neuro: Alert, Oriented x3, Cranial nerves II-XII grossly intact, Normal Strength, Normal Sensation, Normal DTR, Normal Gait. Negative for: Abnormal Gait Psychological: Normal affect Diagnostic/Tx/Re-eval - Medical Decision Making Patient evaluated for headache. Likely tension headache. She has associated nausea. 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 She is given IV fluids, Zofran and Toradol. Patient be given a work note per her request as she supposed to work at 8 AM. She has a normal neurologic exam. Patient is counseled on signs and symptoms requiring return to the emergency room. Patient verbalizes agreement and understand this plan. Patient discharged home in stable and improved condition. ED Disposition - Plan for ED Patient: Disposition: Home or Assisted Living Diagnosis: Tension headache Instructions: ED Headache, Tension Prescriptions: Ondansetron [Zofran Odt] 4 mg PO Q8H PRN PRN #10 tab PRN Reason: Nausea Transmission Status: Pending to [id number] Referrals: Domenic Mejia MD [Primary Care Provider] -
[2020-11-08] MEDS: Ketorolac 15 MG/ML Vial IV (04:43)
[2020-11-08] MEDS: 0.9% Normal Saline 1,000 ML 999 ML IV (04:44)
[2020-11-08] MEDS: Ondansetron 4 MG/2 ML Vial IV (04:44)
[2020-11-08 06:04] VITALS: BP 125/86; PULSE 72; RESP 18; O2SAT 99
== END 2020-11-08 06:05 | disposition home or self-care (01) ==
PROVIDERS: Emergency Provider Emergency Medicine; PCP Family Medicine
DX: G44.209 Tension-type headache, unspecified, not intractable (principal); M19.90 Unspecified osteoarthritis, unspecified site; F17.200 Nicotine dependence, unspecified, uncomplicated; Z88.0 Allergy status to penicillin; Z88.1 Allergy status to other antibiotic agents; Z88.8 Allergy status to other drugs, medicaments and biological substances; Z91.040 Latex allergy status
CPT/HCPCS: 99285; J7030; A4216; J2405

== ENCOUNTER 2021-01-16 12:19 | Emergency (ER) | payer MEDICAID, SELFPAY ==
[2021-01-16 12:20] VITALS: BP 159/97; PULSE 90; RESP 18; TEMP 36.6; O2SAT 98; BMI 37.1
--- NOTE | 2021-01-16 12:56 | EDS_ITS ---
HPI History of Present Illness Chief Complaint: Fatigue Informant: patient Narrative Narrative: 40-year-old female states that she has been experiencing vomiting without nausea and diarrhea a couple times a day for the past week. She did a virtual visit with her doctor and they felt it would be a good idea for her to come to emergency and be evaluated for dehydration. She states she has been drinking but not as much as she thinks. She has been urinating but not as much as she thinks. She states she has not take anything for this because her doctors do not want her taking anything like Imodium for it. She denies any fevers or known bad food exposure. She notes a cough that is new. Though she has a chronic cough this cough is more than normal. [facility] Medical History (Updated 01/16/21 @ 14:[address] Stephan Madison, ) Anemia Anxiety Arthritis ASTHMA Chest pain Chronic cough Depression Difficulty balancing Fatigue NECK/BACK PAIN Severe headache Shoulder pain Stomach ulcer Home Medications famotidine 40 mg PO BID 06/10/18 [History Last Taken Unknown] paliperidone 9 mg PO DAILY 07/24/18 [History Last Taken Unknown] loratadine 10 mg PO DAILY 09/03/18 [History Last Taken Unknown] multivitamin 1 ea PO DAILY 09/03/18 [History Last Taken Unknown] spacer #1 ea 02/14/19 [Rx Last Taken Unknown] naproxen 500 mg PO BID PRN PRN 04/24/19 [History Last Taken Unknown] propranolol 10 mg PO TID 04/24/19 [History Last Taken Unknown] benztropine 0.5 mg PO DAILY 11/08/20 [History Last Taken Unknown] benztropine 1 mg PO QHS 11/08/20 [History Last Taken Unknown] cariprazine 1.5 mg PO DAILY 11/08/20 [History Last Taken Unknown] lamotrigine 50 mg PO DAILY 11/08/20 [History Last Taken Unknown] ondansetron 4 mg PO Q8H PRN PRN #10 tab 11/08/20 [Rx Last Taken Unknown] acyclovir 400 mg PO TID 01/16/21 [History Last Taken Unknown] cholecalciferol (vitamin D3) [Vitamin D3] 50 mcg PO DAILY 01/16/21 [History Last Taken Unknown] famotidine 40 mg PO DAILY 01/16/21 [History Last Taken Unknown] Allergy/AdvReac Type Severity Reaction Status Date / Time influenza virus vaccine, Allergy Other Verified 11/08/20 03:28 specific [influenza virus vacc,specific] iodine Allergy Rash Verified 01/16/21 12:25 Latex, Natural Rubber Allergy Rash Verified 11/08/20 03:28 [place] Allergy Anaphylaxis Verified 11/08/20 03:28 meloxicam Allergy Other Verified 11/08/20 03:28 metronidazole [From Flagyl] Allergy Hives Verified 11/08/20 03:28 montelukast [From Singulair] Allergy Rash Verified 11/08/20 03:28 morphine Allergy Other Verified 11/08/20 03:28 Penicillins [PCN] Allergy Unknown Verified 11/08/20 03:28 clindamycin AdvReac Nausea/Vom/ Verified 11/08/20 03:28 Diarrhea doxycycline AdvReac Nausea Verified 01/16/21 12:25 prednisone AdvReac Other Verified 11/08/20 03:28 ANTIBACTERIAL SOAP Allergy Hives Uncoded 08/29/20 05:46 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 Uncoded 08/29/20 05:46 SEASONAL ALLERGIES Allergy Other Uncoded 08/29/20 05:46 Family History (Reviewed 11/23/19 @ 16:22 by Bre Nieves [employer]VIS[employer]ISH[employer], [employer]) Brother Hypertension Bipolar affect, depressed Surgical History No pertinent past surgical history Social History Smoking Status: Current every day smoker tobacco type: cigarettes Tobacco: How many years used: 24 second hand exposure: Yes alcohol intake: never ROS ROS ED Constitutional Constitutional ED: Reports other Details: Fatigue ; Denies chills or weight loss Eyes Eyes: Denies change in vision or diplopia ENT ENT ED: Reports other Details: Dry mouth ; Denies ear pain, rhinorrhea or sore throat Cardiovascular Cardiovascular: Denies chest pain, orthopnea, palpitations or racing heartbeat Respiratory/Chest Respiratory/Chest: Denies cough, dyspnea or orthopnea Gastrointestinal Gastrointestinal: Reports diarrhea and vomiting; Denies abdominal pain or nausea Genitourinary Genitourinary ED: Denies dysuria, hematuria or urinary frequency Musculoskeletal Musculoskeletal: Denies arthralgias or myalgias Integumentary Denies abscess or rash Neurologic Neurologic: Denies headache(s) or weakness Psychiatric Psychiatric: Denies anxiety, depression, suicidal ideation or suicidal thoughts Endocrine Endocrinology: Denies polydipsia, polyphagia or polyuria Allergic/Immunologic Allergic/Immunologic ED: Denies mouth swelling, tongue swelling or urticaria EXAM Physical Exam Const Vital Signs: 01/16/21 12:20 01/16/21 13:07 Temperature 97.8 F Temperature Source Temporal Pulse Rate 90 Respiratory Rate 18 Respiratory Effort Normal Non-Labored Respiratory Pattern Normal Blood Pressure 159/97 H Blood Pressure Mean 117 Pulse Ox 98 Oxygen Delivery Method Room Air Positive well nourished and well developed General Appearance ED: well developed HEENT Reports normocephalic, head/scalp atraumatic and moist mucous membranes Eyes PERRL and EOMs intact bilaterally Neck no lymphadenopathy, supple and no JVD Resp normal respiratory effort and clear to auscultation bilaterally Cardio regular rate, regular rhythm and no murmurs GI normal to inspection, nondistended, normoactive bowel sounds and non-tender Palpation: soft Back/Spine no CVA tenderness and normal ROM Extremity normal to inspection General Extremety ED: Negative for edema General Extremity: Negative for edema Neuro oriented x3 and CN's II-XII intact bilaterally Sensorium / Orientation: alert Motor Exam: strength 5/5 throughout Psych mental status grossly normal Mood & Affect: Negative for depressed or tearful Skin no wounds Skin Narrative: Eczema/dry skin MDM MDM MDM Narrative Medical decision making narrative: Patient's blood work shows a nonspecific leukocytosis at 12. Specific gravity of urine is 1.01. BUN/creatinine normal. Patient received a small fluid bolus. She states that she was advised not to take Imodium. I can write her off work for the next couple days. She also asked me about her eczema or dry skin on her hands I recommend aggressive hydration and if no improvement see dermatology. Lab Data Labs: Laboratory Results - last 24 hr 01/16/21 01/16/21 01/16/21 13:05 13:05 13:15 WBC 12.8 H RBC 5.46 H Hgb 15.3 H Hct 47.0 MCV 86.1 MCH 28.0 MCHC 32.6 RDW Std Deviation 39.9 RDW Coeff of Lev 12.8 Plt Count 237 MPV 10.7 Immature Gran % (Auto) 0.200 Neut % (Auto) 66.4 Lymph % (Auto) 24.8 Barry % (Auto) 5.9 Eos % (Auto) 2.4 Baso % (Auto) 0.3 Absolute Neuts (auto) 8.5 H Absolute Lymphs (auto) 3.18 Nucleated RBC % 0 Sodium 138 Potassium 3.9 Chloride 108 H Carbon Dioxide 25.0 Anion Gap 5 BUN 15 Creatinine 0.83 Estim Creat Clear Calc 82.66 Est GFR (MDRD) Af Amer 97 Est GFR (MDRD) Non-Af 81 BUN/Creatinine Ratio 18.2 Glucose 82 Calcium 9.2 Total Bilirubin 0.30 AST 12 L ALT 30 Alkaline Phosphatase 94 Total Protein 7.8 Albumin 3.8 Globulin 4.0 Albumin/Globulin Ratio 1.0 Urine Color Yellow Urine Clarity Clear Urine pH 6.5 Ur Specific [place] 1.010 Urine Protein Negative Urine Glucose (UA) Normal Urine Ketones Negative Urine Occult Blood Negative Urine Nitrite Negative Urine Bilirubin Negative Urine Urobilinogen Normal Ur Leukocyte Esterase Negative Urine RBC 0 SEEN Urine WBC 0 SEEN Ur Squamous Epith Cells 0-5 SEEN Urine Bacteria 0 SEEN Urine Mucus 0 SEEN Urine Test Negative Discharge Plan Triage Chief Complaint: Fatigue ED Provider: Stepahn Madison Dx/Rx/DC Orders Clinical Impression: Vomiting and diarrhea Instructions: ED Vomiting and Diarrhea ... Prescriptions: No Action (DME) spacer See Rx Instructions .Route .MEDSUPPLY Qty: 1 RF: 0 famotidine 20 MG tablet 40 mg PO BID RF: 0 paliperidone 9 MG tablet 9 mg PO DAILY RF: 0 multivitamin 1 EACH tablet 1 ea PO DAILY RF: 0 loratadine 10 MG capsule 10 mg PO DAILY RF: 0 propranolol 10 MG tablet 10 mg PO TID RF: 0 naproxen 500 MG tablet 500 mg PO BID PRN PRN (Reason: Pain) RF: 0 cariprazine 1.5 MG capsule 1.5 mg PO DAILY RF: 0 benztropine 0.5 MG tablet 0.5 mg PO DAILY RF: 0 benztropine 1 MG tablet 1 mg PO QHS RF: 0 lamotrigine 25 MG tablet 50 mg PO DAILY RF: 0 ondansetron 4 MG tablet 4 mg PO Q8H PRN PRN (Reason: Nausea) Qty: 10 RF: 0 famotidine 40 mg Tablet 40 mg PO DAILY RF: 0 acyclovir 400 mg tablet 400 mg PO TID RF: 0 cholecalciferol (vitamin D3) [Vitamin D3] 50 mcg (2,000 unit) Tablet 50 mcg PO DAILY RF: 0 Primary Care Provider: Domenic Mejia Referrals: Domenic Mejia MD [Primary Care Provider] - As Needed Disposition Disposition: Home, self care
[2021-01-16 13:17] LABS: Absolute Lymphocyte Count 3.18 X10^3/uL (0.83-4.51); Absolute Neutrophil Count 8.5 X10^3/uL (2.0-7.7); Basophil# 0.04 X10^3/uL; Basophil% 0.3 % (0-1); Eosinophil# 0.31 X10^3/uL; Eosinophils% 2.4 % (0-5); Hemoglobin 15.3 g/dL (12.0-15.0); Lymphocyte # 3.18 X10^3/ul (0.83-4.51); Lymphocyte % 24.8 % (19-41); Mean Corp Hgb Conc 32.6 g/dL (32-36); Mean Corpuscular Volume 86.1 fL (81-99); Mean Platelet Vol. 10.7 fl (6.2-12.0); Monocyte# 0.76 X10^3/uL; Monocyte% 5.9 % (0-10); NRBC Flagged by Analyzer 0 % (0-5); Neutrophil # 8.52 X10^3/uL (2.7-7.7); Neutrophil % 66.4 % (47-70); Platelet Count 237 K/mm3 (150-450); RBC Distribution Width CV 12.8 % (11.6-14.6); RBC Distribution Width SD 39.9 fl (35.1-43.9); Red Blood Count 5.46 M/mm3 (4.2-5.4); White Blood Count 12.8 K/mm3 (4.4-11.0)
[2021-01-16 13:25] LABS: Bacteria 0 SEEN /hpf (None Seen); Color, Urine Yellow (Yellow); Glucose, Dipstick Normal (Normal); Ketone-Dipstick Negative (Negative); Leukocyte Esterase-Dipstick Negative /ul (Negative); Mucous, Urine 0 SEEN /hpf (<or=2+); Nitrite-Dipstick Negative (Negative); Occult Blood-Urine Negative /ul (Negative); Protein-Dipstick Negative (Negative); Red Blood Cells-Urine 0 SEEN /hpf (0-5); Urine Bilirubin Dipstick Negative (Negative); Urine Clarity Clear (Clear); Urine Urobilinogen Normal (Normal); Urine pH 6.5 (5.0 - 8.0); White Blood Cells 0 SEEN /hpf (0-5)
[2021-01-16 13:34] LABS: AST(SGOT) 12 U/L (15-37); Alanine Aminotransfer ALT/SGPT 30 U/L (13-56); Albumin, Serum 3.8 g/dL (3.2-5.0); Alkaline Phosphatase 94 U/L (45-117); Anion Gap 5 (5-15); BUN 15 mg/dL (7-18); BUN/Creat Ratio 18.2 RATIO (10-20); Calcium,Total 9.2 mg/dL (8.5-10.1); Chloride 108 mmol/L (98-107); Creatinine, Serum 0.83 mg/dL (0.55-1.02); EST Glomerular Filtration Rate 81 mL/min (>60); Est Glom Filt Rate - Afr Amer 97 mL/min (>60); Estimated Creatinine Clearance 82.66 ml/min; Glucose 82 mg/dL (74-106); Potassium 3.9 mmol/L (3.5-5.1); Protein, Total 7.8 g/dL (6.4-8.2); Sodium Level 138 mmol/L (136-145)
[2021-01-16 13:34] LABS: Squamous Epithelial Cells - UA 0-5 SEEN /hpf (5-10)
[2021-01-16 13:35] LABS: Internal QC Validated? YES +Cl - CLEAR BKGD; Pregnancy, Urine Negative Negative
[2021-01-16 14:28] VITALS: BP 152/80; PULSE 90; RESP 16; O2SAT 98
== END 2021-01-16 14:40 | disposition home or self-care (01) ==
PROVIDERS: Emergency Provider Emergency Medicine; PCP Family Medicine
DX: R53.83 Other fatigue (principal); R19.7 Diarrhea, unspecified; R11.2 Nausea with vomiting, unspecified; F17.210 Nicotine dependence, cigarettes, uncomplicated; D64.9 Anemia, unspecified; F32.9 Major depressive disorder, single episode, unspecified; F41.9 Anxiety disorder, unspecified; J45.909 Unspecified asthma, uncomplicated; Z79.1 Long term (current) use of non-steroidal anti-inflammatories (NSAID); Z79.52 Long term (current) use of systemic steroids
CPT/HCPCS: 80053; 81001; 81025; 85025; 99283; J7030; A4216

== ENCOUNTER 2021-01-25 11:54 | Emergency (ER) | payer MEDICAID, SELFPAY ==
[2021-01-25 11:55] VITALS: BP 144/93; PULSE 108; RESP 16; TEMP 36.4; O2SAT 98; BMI 34.4
--- NOTE | 2021-01-25 12:25 | EDS_ITS ---
HPI History of Present Illness Chief Complaint: General Illness [facility] Medical History (Updated 01/25/21 @ 12:[address] Tristan Bledsoe MD) Anemia Anxiety Arthritis ASTHMA Chest pain Chronic cough Depression Difficulty balancing Fatigue NECK/BACK PAIN Severe headache Shoulder pain Stomach ulcer Home Medications famotidine 40 mg PO BID 06/10/18 [History Last Taken Unknown] loratadine 10 mg PO DAILY 09/03/18 [History Last Taken Unknown] multivitamin 1 ea PO DAILY 09/03/18 [History Last Taken Unknown] spacer #1 ea 02/14/19 [Rx Last Taken Unknown] propranolol 10 mg PO TID 04/24/19 [History Last Taken Unknown] benztropine 0.5 mg PO DAILY 11/08/20 [History Last Taken Unknown] benztropine 1 mg PO QHS 11/08/20 [History Last Taken Unknown] cariprazine 1.5 mg PO DAILY 11/08/20 [History Last Taken Unknown] lamotrigine 50 mg PO DAILY 11/08/20 [History Last Taken Unknown] cholecalciferol (vitamin D3) [Vitamin D3] 50 mcg PO DAILY 01/16/21 [History Last Taken Unknown] Lactobacillus rhamnosus GG [Culturelle] 1 cap PO DAILY 01/25/21 [History Last Taken Unknown] Allergy/AdvReac Type Severity Reaction Status Date / Time influenza virus vaccine, Allergy Other Verified 01/25/21 11:55 specific [influenza virus vacc,specific] iodine Allergy Rash Verified 01/25/21 11:55 Latex, Natural Rubber Allergy Rash Verified 01/25/21 11:55 [place] Allergy Anaphylaxis Verified 01/25/21 11:55 meloxicam Allergy Other Verified 01/25/21 11:55 metronidazole [From Flagyl] Allergy Hives Verified 01/25/21 11:55 montelukast [From Singulair] Allergy Rash Verified 01/25/21 11:55 morphine Allergy Other Verified 01/25/21 11:55 Penicillins [PCN] Allergy Unknown Verified 01/25/21 11:55 clindamycin AdvReac Nausea/Vom/ Verified 01/25/21 11:55 Diarrhea doxycycline AdvReac Nausea Verified 01/25/21 11:55 prednisone AdvReac Other Verified 01/25/21 11:55 ANTIBACTERIAL SOAP Allergy Hives Uncoded 01/25/21 11:55 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 She feels depressed but not suicidal. She saw counseling center on Tuesday. Review of Systems ROS Unobtainable: Denies due to encephalopathy Constitutional Constitutional ED: Denies chills or fever(s) Eyes Eyes: Denies change in vision ENT ENT ED: Denies ear pain or sore throat Cardiovascular Cardiovascular: Denies chest pain Respiratory/Chest Respiratory/Chest: Denies cough or dyspnea Gastrointestinal Gastrointestinal: Reports diarrhea, nausea and vomiting; Denies abdominal pain Genitourinary Genitourinary ED: Denies dysuria or hematuria Musculoskeletal Musculoskeletal: Denies myalgias Integumentary Denies rash Neurologic Neurologic: Denies headache(s) Psychiatric Psychiatric: Reports depression Endocrine Endocrinology: Denies polyuria Allergic/Immunologic Allergic/Immunologic ED: Denies urticaria EXAM Physical Exam Narrative Exam Narrative: Middle-aged female no acute distress. Vital signs stable afebrile. HEENT exam unremarkable. Neck nontender no lymphadenopathy. Lungs clear to auscultation bilaterally. Heart regular rhythm rate about 100 no murmur. Abdomen soft nontender. Normal bowel sounds no peritoneal signs. Patient moving all 4 extremities. No edema. Neurologically she is awake and alert. Const Vital Signs: 01/25/21 11:55 01/25/21 12:13 Temperature 97.6 F L Temperature Source Temporal Pulse Rate 108 H Respiratory Rate 16 Respiratory Effort Normal Non-Labored Respiratory Pattern Normal Blood Pressure 144/93 H Blood Pressure Mean 110 Pulse Ox 98 Oxygen Delivery Method Room Air Positive well nourished and well developed General Appearance ED: well developed HEENT Reports moist mucous membranes Negative for trauma or tenderness Eyes PERRL and EOMs intact bilaterally Neck no lymphadenopathy and supple Chest Wall inspection of chest normal Resp normal respiratory effort and clear to auscultation bilaterally Cardio regular rate, regular rhythm and no murmurs GI normal to inspection, nondistended, normoactive bowel sounds, non-tender and non-distended Palpation: soft Back/Spine no CVA tenderness Extremity normal to inspection General Extremety ED: Negative for edema or tenderness General Extremity: Negative for edema Neuro oriented x3 and CN's II-XII intact bilaterally Sensorium / Orientation: alert Motor Exam: strength 5/5 throughout Psych Psych Narrative: Asked patient she is nonsuicidal. She denies ever being suicid al in the past. She denies any prior attempts. Mood & Affect: depressed Skin no rashes or lesions noted MDM MDM MDM Narrative Medical decision making narrative: Patient clinically looks well. She had recent ER evaluation negative labs at that time. Follow-up with primary care physician. She requested a work excuse for today. And paperwork on depression. Discharge Plan Triage Chief Complaint: General Illness ED Provider: Tristan Bledsoe Dx/Rx/DC Orders Clinical Impression: Depression Instructions: ED Depression Prescriptions: No Action (DME) spacer See Rx Instructions .Route .MEDSUPPLY Qty: 1 RF: 0 famotidine 20 MG tablet 40 mg PO BID RF: 0 multivitamin 1 EACH tablet 1 ea PO DAILY RF: 0 loratadine 10 MG capsule 10 mg PO DAILY RF: 0 propranolol 10 MG tablet 10 mg PO TID RF: 0 cariprazine 1.5 MG capsule 1.5 mg PO DAILY RF: 0 benztropine 0.5 MG tablet 0.5 mg PO DAILY RF: 0 benztropine 1 MG tablet 1 mg PO QHS RF: 0 lamotrigine 25 MG tablet 50 mg PO DAILY RF: 0 cholecalciferol (vitamin D3) [Vitamin D3] 50 mcg (2,000 unit) Tablet 50 mcg PO DAILY RF: 0 Culturelle 10 billion cell Capsule 1 cap PO DAILY RF: 0 Primary Care Provider: Domenic Mejia Referrals: Domenic Mejia MD [Primary Care Provider] - 1-2 Days if not improving Activity Restrictions/Additional Instructions: Continue current medications. Follow-up with primary care physician. Follow-up with the counseling center. Return if you feel suicidal. Disposition Disposition: Home, self care
== END 2021-01-25 12:55 | disposition home or self-care (01) ==
LOC: ED 12:53
PROVIDERS: Emergency Provider Emergency Medicine; PCP Family Medicine
DX: F32.9 Major depressive disorder, single episode, unspecified (principal); F17.210 Nicotine dependence, cigarettes, uncomplicated; Z79.1 Long term (current) use of non-steroidal anti-inflammatories (NSAID); Z79.52 Long term (current) use of systemic steroids
CPT/HCPCS: 99282

== ENCOUNTER 2021-01-29 12:55 | Emergency (ER) | payer MEDICAID, SELFPAY ==
[2021-01-29 12:57] VITALS: BP 135/96; PULSE 84; RESP 15; TEMP 36.4; O2SAT 98; BMI 34.4
--- NOTE | 2021-01-29 13:23 | RAD_ITS ---
STUDY: X-RAY CHEST REASON FOR EXAM: Female, 40 years old. Dry cough, sob, and fatigue. TECHNIQUE: Single AP portable view of the chest. COMPARISON: Comparison is made with prior study dated 07/05/2020. FINDINGS: The lungs are clear and expanded. There is no demonstrated pleural abnormality. Normal size heart. Normal mediastinum and jennifer. Normal visualized pulmonary arteries. Normal visualized aortic arch and descending thoracic aorta. Normal visualized thoracic spine. Normal visualized ribs, clavicles, and shoulders. There is no demonstrated abnormality of the visualized soft tissue structures of the upper abdomen. RAD/Chest 1 View (Portable) IMPRESSION: Normal x-ray examination of the chest. Electronically Signed: Shree Das MD at 14:24 EDT , Service support ,
[2021-01-29] MEDS: Ipratropium/Albuterol Sulfate 3 ML AMPUL.NEB INHALATION (13:28)
[2021-01-29 13:34] VITALS: PULSE 62; RESP 16
[2021-01-29 14:30] VITALS: RESP 18
--- NOTE | 2021-01-29 17:31 | EX.ED.VIS.UR ---
HPI HPI - URI History of Present Illness Chief Complaint: Shortness of Breath Narrative Narrative: 40-year-old female who reports she has a cough that began approximate 1 week ago. Spent worse since yesterday. It is nonproductive. She denies any fever or chills. She reports she had a chest x-ray that was negative for pneumonia a week ago. She had a Covid test couple hours ago that will be back in 12 to 24 hours. She is not had a Covid vaccine. She denies sick contacts. She does wear a mask when she goes out. Patient denies any fever or chills. She does have a history of asthma. She reports that she is on Qvar. She does not have a rescue inhaler. ROS ROS ED Constitutional Constitutional ED: Denies chills, fever(s) or sweats Eyes Eyes: Denies change in vision ENT ENT ED: Denies sore throat Cardiovascular Cardiovascular: Denies chest pain Respiratory/Chest Respiratory/Chest: Reports cough and dyspnea; Denies dyspnea on exertion Gastrointestinal Gastrointestinal: Denies abdominal pain, diarrhea, melena, nausea or vomiting Genitourinary Genitourinary ED: Denies dysuria or urinary frequency Musculoskeletal Musculoskeletal: Denies myalgias Integumentary Denies rash Neurologic Neurologic: Denies headache(s), paresthesias or weakness [facility] Medical History (Updated 01/29/21 @ 17:[address] Adolph Iqbal MD) Anemia Anxiety Arthritis ASTHMA Chest pain Chronic cough Depression Difficulty balancing Fatigue NECK/BACK PAIN Severe headache Shoulder pain Stomach ulcer Home Medications famotidine 40 mg PO BID 06/10/18 [History Last Taken Unknown] loratadine 10 mg PO DAILY 09/03/18 [History Last Taken Unknown] multivitamin 1 ea PO DAILY 09/03/18 [History Last Taken Unknown] spacer #1 ea 02/14/19 [Rx Last Taken Unknown] propranolol 10 mg PO TID 04/24/19 [History Last Taken Unknown] benztropine 0.5 mg PO DAILY 11/08/20 [History Last Taken Unknown] benztropine 1 mg PO QHS 11/08/20 [History Last Taken Unknown] cariprazine 1.5 mg PO DAILY 11/08/20 [History Last Taken Unknown] lamotrigine 50 mg PO DAILY 11/08/20 [History Last Taken Unknown] cholecalciferol (vitamin D3) [Vitamin D3] 50 mcg PO DAILY 01/16/21 [History Last Taken Unknown] Lactobacillus rhamnosus GG [Culturelle] 1 cap PO DAILY 01/25/21 [History Last Taken Unknown] Allergy/AdvReac Type Severity Reaction Status Date / Time influenza virus vaccine, Allergy Other Verified 01/29/21 12:59 specific [influenza virus vacc,specific] iodine Allergy Rash Verified 01/29/21 12:59 Latex, Natural Rubber Allergy Rash Verified 01/29/21 12:59 [place] Allergy Anaphylaxis Verified 01/29/21 12:59 meloxicam Allergy Other Verified 01/29/21 12:59 metronidazole [From Flagyl] Allergy Hives Verified 01/29/21 12:59 montelukast [From Singulair] Allergy Rash Verified 01/29/21 12:59 morphine Allergy Other Verified 01/29/21 12:59 Penicillins [PCN] Allergy Unknown Verified 01/29/21 12:59 clindamycin AdvReac Nausea/Vom/ Verified 01/29/21 12:59 Diarrhea doxycycline AdvReac Nausea Verified 01/29/21 12:59 prednisone AdvReac Other Verified 01/29/21 12:59 ANTIBACTERIAL SOAP Allergy Hives Uncoded 01/29/21 12:59 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 Hives Uncoded 01/29/21 12:59 SEASONAL ALLERGIES Allergy Other Uncoded 01/29/21 12:59 Family History Brother Hypertension Bipolar affect, depressed Surgical History No pertinent past surgical history Social History Smoking Status: Current every day smoker tobacco type: cigarettes Tobacco: How many years used: 24 second hand exposure: Yes alcohol intake: never EXAM Physical Exam Const Vital Signs: 01/29/21 12:57 01/29/21 13:34 01/29/21 14:30 Temperature 97.6 F L Temperature Source Temporal Pulse Rate 84 62 Respiratory Rate 15 16 18 Respiratory Pattern Normal Blood Pressure 135/96 H Blood Pressure Mean 109 Pulse Ox 98 Oxygen Delivery Method Room Air Positive well nourished and well developed General Appearance ED: well developed HEENT Reports normocephalic and head/scalp atraumatic Eyes PERRL Neck no lymphadenopathy, supple and no JVD General: Negative for tenderness Resp normal respiratory effort and clear to auscultation bilaterally Cardio regular rate, regular rhythm and no murmurs GI normal to inspection, nondistended, normoactive bowel sounds and non-tender GI Narrative: No guarding, rebound, or peritoneal signs. Palpation: soft Back/Spine Back/Spine Narrative: Nontender. Extremity General Extremety ED: Negative for edema or tenderness General Extremity: Negative for edema Neuro oriented x3, CN's II-XII intact bilaterally and no sensory deficits noted Sensorium / Orientation: alert Motor Exam: strength 5/5 throughout Psych mental status grossly normal Skin no rashes or lesions noted MDM MDM Radiography Diagnostic Testing: Radiology Impression Chest X-Ray 01/29/21 13:23 IMPRESSION: Normal x-ray examination of the chest. Electronically Signed: Shree Das MD at 14:24 EDT , Service support , Treatment and Re-Evaluation Comments:: Emergency department course: Patient was given albuterol aerosol. She reports that her insurance will not cover her albuterol MDI and that is why she does not have one. She is given an albuterol MDI with spacer while here. Treatment plan: This time patient really is not wheezing in the emergency department. I do not think that putting her on steroids is in her best interest. She will be discharged with the albuterol MDI and instructed to follow-up with her primary care physician in 3 to 5 days not improving. Return to the emergency department for any worsening symptoms. Disposition: To home in improved and stable condition. This note was generated with [employer] dictation software. It may contain incorrect words, spelling, and punctuation that were not noted in review of the chart prior to signing. Discharge Plan Triage Chief Complaint: Shortness of Breath ED Provider: Adolph Iqbal Dx/Rx/DC Orders Clinical Impression: ASTHMA, URI (upper respiratory infection) Instructions: ED Bronchitis with Wheezing (Adult) Prescriptions: No Action (DME) spacer See Rx Instructions .Route .MEDSUPPLY Qty: 1 RF: 0 famotidine 20 MG tablet 40 mg PO BID RF: 0 multivitamin 1 EACH tablet 1 ea PO DAILY RF: 0 loratadine 10 MG capsule 10 mg PO DAILY RF: 0 propranolol 10 MG tablet 10 mg PO TID RF: 0 cariprazine 1.5 MG capsule 1.5 mg PO DAILY RF: 0 benztropine 0.5 MG tablet 0.5 mg PO DAILY RF: 0 benztropine 1 MG tablet 1 mg PO QHS RF: 0 lamotrigine 25 MG tablet 50 mg PO DAILY RF: 0 cholecalciferol (vitamin D3) [Vitamin D3] 50 mcg (2,000 unit) Tablet 50 mcg PO DAILY RF: 0 Culturelle 10 billion cell Capsule 1 cap PO DAILY RF: 0 Primary Care Provider: Domenic Mejia Referrals: Domenic Mejia MD [Primary Care Provider] - 3-5 Days if not improving Disposition Disposition: Home, self care Discharge Date/Time: 01/29/21 14:59
== END 2021-01-29 14:59 | disposition home or self-care (01) ==
PROVIDERS: Emergency Provider Emergency Medicine; PCP Family Medicine
DX: J06.9 Acute upper respiratory infection, unspecified (principal); J45.909 Unspecified asthma, uncomplicated; F17.210 Nicotine dependence, cigarettes, uncomplicated
CPT/HCPCS: 71045; 94640; 99282

== ENCOUNTER 2021-02-27 04:03 | Emergency (ER) | payer MEDICAID, SELFPAY ==
[2021-02-27 04:06] VITALS: BP 134/99; PULSE 89; RESP 18; TEMP 36.4; O2SAT 99; BMI 35.1
--- NOTE | 2021-02-27 04:31 | EDS_ITS ---
HPI History of Present Illness Chief Complaint: Nausea/Vomiting Informant: patient Onset/Context/Timing Onset: - (Greater than a year) Current Severity: Mild Maximum Severity: Moderate Narrative Narrative: Patient presents via EMS secondary to vomiting. Patient states symptoms of been ongoing for over a year. She does not become significantly nauseous just vomits. She was seen by a pig iron loader approximately 10 days ago. They wrote her to start Protonix but she has yet to start taking this medication. She states they feel that her vomiting is secondary to acid reflux. Patient has had no fever or chills. No significant abdominal pain. Patient states that she also has a tremor of the right upper extremity secondary to her psych meds. This has been ongoing for couple years. She is asking about a referral to neurology for this. Patient also complains of vaginal spotting for the last 2 weeks. She states she is on the Depo shot but is concerned that she may be . [facility] Medical History (Updated 02/27/21 @ 05:[address] Juana Christopher MD) Anemia Anxiety Arthritis ASTHMA Chest pain Chronic cough Depression Difficulty balancing Fatigue NECK/BACK PAIN Severe headache Shoulder pain Stomach ulcer Home Medications famotidine 40 mg PO BID 06/10/18 [History Last Taken Unknown] loratadine 10 mg PO DAILY 09/03/18 [History Last Taken Unknown] multivitamin 1 ea PO DAILY 09/03/18 [History Last Taken Unknown] spacer #1 ea 02/14/19 [Rx Last Taken Unknown] propranolol 10 mg PO TID 04/24/19 [History Last Taken Unknown] benztropine 0.5 mg PO DAILY 11/08/20 [History Last Taken Unknown] benztropine 1 mg PO QHS 11/08/20 [History Last Taken Unknown] cariprazine 1.5 mg PO DAILY 11/08/20 [History Last Taken Unknown] lamotrigine 50 mg PO DAILY 11/08/20 [History Last Taken Unknown] cholecalciferol (vitamin D3) [Vitamin D3] 50 mcg PO DAILY 01/16/21 [History Last Taken Unknown] Lactobacillus rhamnosus GG [Culturelle] 1 cap PO DAILY 01/25/21 [History Last Taken Unknown] promethazine 25 mg PO TID PRN #14 tab 02/27/21 [Rx Last Taken Unknown] Allergy/AdvReac Type Severity Reaction Status Date / Time influenza virus vaccine, Allergy Other Verified 02/27/21 04:09 specific [influenza virus vacc,specific] iodine Allergy Rash Verified 02/27/21 04:09 Latex, Natural Rubber Allergy Rash Verified 02/27/21 04:09 [place] Allergy Anaphylaxis Verified 02/27/21 04:09 meloxicam Allergy Other Verified 02/27/21 04:09 metronidazole [From Flagyl] Allergy Hives Verified 02/27/21 04:09 montelukast [From Singulair] Allergy Rash Verified 02/27/21 04:09 morphine Allergy Other Verified 02/27/21 04:09 Penicillins [PCN] Allergy Unknown Verified 02/27/21 04:09 clindamycin AdvReac Nausea/Vom/ Verified 02/27/21 04:09 Diarrhea doxycycline AdvReac Nausea Verified 02/27/21 04:09 prednisone AdvReac Other Verified 02/27/21 04:09 ANTIBACTERIAL SOAP Allergy Hives Uncoded 02/27/21 04:09 HAND [employer] Allergy Hives Uncoded 02/27/21 04:09 SEASONAL ALLERGIES Allergy Other Uncoded 02/27/21 04:09 Family History Brother Hypertension Bipolar affect, depressed Surgical History No pertinent past surgical history Social History Smoking Status: Current every day smoker tobacco type: cigarettes Tobacco: How many years used: 24 second hand exposure: Yes alcohol intake: never ROS ROS ED Constitutional Constitutional ED: Denies chills or fever(s) Eyes Eyes: Denies change in vision ENT ENT ED: Denies sore throat Cardiovascular Cardiovascular: Denies chest pain Respiratory/Chest Respiratory/Chest: Denies cough or dyspnea Gastrointestinal Gastrointestinal: Reports vomiting; Denies abdominal pain, diarrhea or nausea Genitourinary Genitourinary ED: Denies dysuria Musculoskeletal Musculoskeletal: Denies back pain Integumentary Denies rash Neurologic Neurologic: Reports other Details: Right upper extremity tremor ; Denies headache(s) or weakness Psychiatric Psychiatric: Denies anxiety or depression Endocrine Endocrinology: Denies polydipsia or polyuria Allergic/Immunologic Allergic/Immunologic ED: Denies urticaria EXAM Physical Exam Const Vital Signs: 02/27/21 04:06 Temperature 97.6 F L Temperature Source Temporal Pulse Rate 89 Respiratory Rate 18 Blood Pressure 134/99 H Blood Pressure Mean 110 Pulse Ox 99 Positive well nourished and well developed General Appearance ED: well developed HEENT Reports normocephalic and head/scalp atraumatic Eyes PERRL and EOMs intact bilaterally Neck supple Chest Wall inspection of chest normal and palpation of chest normal Resp normal respiratory effort and clear to auscultation bilaterally Cardio regular rate and regular rhythm GI normal to inspection, nondistended, normoactive bowel sounds Palpation: soft Back/Spine no CVA tenderness Extremity normal to inspection Neuro oriented x3 and no sensory deficits noted Sensorium / Orientation: alert Motor Exam: strength 5/5 throughout Psych mental status grossly normal Skin no rashes or lesions noted MDM MDM MDM Narrative Medical decision making narrative: Urinalysis and urine test are obtained. Patient is given a dose of her Protonix. Lab Data Attestation: I reviewed the patient's lab results. Labs: Laboratory Results - last 24 hr 02/27/21 04:30 Urine Color Yellow Urine Clarity Clear Urine pH 6.5 Ur Specific [place] 1.015 Urine Protein Negative Urine Glucose (UA) Normal Urine Ketones Negative Urine Occult Blood 50 H Urine Nitrite Negative Urine Bilirubin Negative Urine Urobilinogen Normal Ur Leukocyte Esterase 500 H Urine RBC 5-10 SEEN Urine WBC 25-50 SEEN Ur Squamous Epith Cells 5-10 SEEN Urine Bacteria 0 SEEN Urine Mucus 0 SEEN Urine Test Negative Treatment and Re-Evaluation Comments:: Patient did not provide a clean sample for the urinalysis. There are 25-50 white cells with 5-10 epithelials. No bacteria is noted. Her test is negative. Patient is advised to start and continue her Protonix. She will be given phone number for neurology for follow-up. We also discussed that she will likely need a repeat sleep study and she is to follow with her PCP to have this scheduled. Discharge Plan Triage Chief Complaint: Nausea/Vomiting ED Provider: Juana Christopher Dx/Rx/DC Orders Clinical Impression: Vomiting Instructions: ED Vomiting (Adult) Prescriptions: New promethazine 25 mg tablet 25 mg PO TID PRN (Reason: nausea and vomiting) Qty: 14 RF: 0 No Action (DME) spacer See Rx Instructions .Route .MEDSUPPLY Qty: 1 RF: 0 famotidine 20 MG tablet 40 mg PO BID RF: 0 multivitamin 1 EACH tablet 1 ea PO DAILY RF: 0 loratadine 10 MG capsule 10 mg PO DAILY RF: 0 propranolol 10 MG tablet 10 mg PO TID RF: 0 cariprazine 1.5 MG capsule 1.5 mg PO DAILY RF: 0 benztropine 0.5 MG tablet 0.5 mg PO DAILY RF: 0 benztropine 1 MG tablet 1 mg PO QHS RF: 0 lamotrigine 25 MG tablet 50 mg PO DAILY RF: 0 cholecalciferol (vitamin D3) [Vitamin D3] 50 mcg (2,000 unit) Tablet 50 mcg PO DAILY RF: 0 Culturelle 10 billion cell Capsule 1 cap PO DAILY RF: 0 Primary Care Provider: Domenic Mejia Referrals: Domenic Mejia MD [Primary Care Provider] - 1 Week Eddie Duran MD [STAFF PHYSICIAN] - As soon as possible Disposition Disposition: Home, Self Care
[2021-02-27 04:36] LABS: Bacteria 0 SEEN /hpf (None Seen); Color, Urine Yellow (Yellow); Glucose, Dipstick Normal (Normal); Ketone-Dipstick Negative (Negative); Leukocyte Esterase-Dipstick 500 /ul (Negative); Mucous, Urine 0 SEEN /hpf (<or=2+); Nitrite-Dipstick Negative (Negative); Occult Blood-Urine 50 /ul (Negative); Protein-Dipstick Negative (Negative); Specific Gravity, Urine 1.015 (1.002-1.030); Urine Bilirubin Dipstick Negative (Negative); Urine Clarity Clear (Clear); Urine Urobilinogen Normal (Normal); Urine pH 6.5 (5.0 - 8.0)
[2021-02-27 04:42] LABS: Internal QC Validated? YES +Cl - CLEAR BKGD; Pregnancy, Urine Negative Negative; Red Blood Cells-Urine 5-10 SEEN /hpf (0-5); Squamous Epithelial Cells - UA 5-10 SEEN /hpf (5-10); White Blood Cells 25-50 SEEN /hpf (0-5)
== END 2021-02-27 05:23 | disposition home or self-care (01) ==
PROVIDERS: Emergency Provider Emergency Medicine; PCP Family Medicine
DX: R11.2 Nausea with vomiting, unspecified (principal); F17.210 Nicotine dependence, cigarettes, uncomplicated; D64.9 Anemia, unspecified; F32.9 Major depressive disorder, single episode, unspecified; F41.9 Anxiety disorder, unspecified; J45.909 Unspecified asthma, uncomplicated; K21.9 Gastro-esophageal reflux disease without esophagitis; Z79.1 Long term (current) use of non-steroidal anti-inflammatories (NSAID); Z79.52 Long term (current) use of systemic steroids
CPT/HCPCS: 81001; 81025; 99284

== ENCOUNTER 2021-03-31 16:25 | Emergency (ER) | payer MEDICAID, SELFPAY ==
[2021-03-31 16:26] VITALS: BP 132/86; PULSE 89; RESP 18; TEMP 36.7; O2SAT 98; BMI 34.4
--- NOTE | 2021-03-31 17:55 | EDS_ITS ---
HPI History of Present Illness Chief Complaint: Weakness Informant: patient Onset/Context/Timing Onset: Days Context: Gradual Onset Narrative Narrative: Patient is a 40-year-old female with history of fatigue, chronic abdominal pain, vomiting and bipolar disorder presenting with fatigue. Patient states she cannot keep her eyes open and is felt very weak and tired for the past week. Patient has any fever. She knows she has a chronic cough because of COPD but has not had any change in mucus production or characteristics of the cough. Denies any sore throat or nasal congestion. She has had some mild dysuria and frequency but attributes that to drinking more water. She denies any hematuria. She she has chronic vomiting which is unchanged. She denies abdominal pain. She states been having good bowel movements denies any black or blood in her stool. She has any sick contacts. She does not have the Covid vaccine. She notes that she was previously at [facility] and was told that she needs a follow-up with her doctor. Patient has any other complaints or concerns at this time. She is concerned she possibly has a viral illness or that this could be anxiety/stress related. [facility] Medical History (Updated 03/31/21 @ 19:[address] Manasa Hudson, DO) Anemia Anxiety Arthritis ASTHMA Chest pain Chronic cough Depression Difficulty balancing Fatigue NECK/BACK PAIN Severe headache Shoulder pain Stomach ulcer Home Medications famotidine 40 mg PO BID 06/10/18 [History Last Taken Unknown] loratadine 10 mg PO DAILY 09/03/18 [History Last Taken Unknown] multivitamin 1 ea PO DAILY 09/03/18 [History Last Taken Unknown] spacer #1 ea 02/14/19 [Rx Last Taken Unknown] propranolol 10 mg PO TID 04/24/19 [History Last Taken Unknown] benztropine 0.5 mg PO DAILY 11/08/20 [History Last Taken Unknown] benztropine 1 mg PO QHS 11/08/20 [History Last Taken Unknown] cariprazine 1.5 mg PO DAILY 11/08/20 [History Last Taken Unknown] lamotrigine 50 mg PO DAILY 11/08/20 [History Last Taken Unknown] cholecalciferol (vitamin D3) [Vitamin D3] 50 mcg PO DAILY 01/16/21 [History Last Taken Unknown] Lactobacillus rhamnosus GG [Culturelle] 1 cap PO DAILY 01/25/21 [History Last Taken Unknown] promethazine 25 mg PO TID PRN #14 tab 02/27/21 [Rx Last Taken Unknown] Allergy/AdvReac Type Severity Reaction Status Date / Time influenza virus vaccine, Allergy Other Verified 03/31/21 16:26 specific [influenza virus vacc,specific] iodine Allergy Rash Verified 03/31/21 16:26 Latex, Natural Rubber Allergy Rash Verified 03/31/21 16:26 [place] Allergy Anaphylaxis Verified 03/31/21 16:26 meloxicam Allergy Other Verified 03/31/21 16:26 metronidazole [From Flagyl] Allergy Hives Verified 03/31/21 16:26 montelukast [From Singulair] Allergy Rash Verified 03/31/21 16:26 morphine Allergy Other Verified 03/31/21 16:26 Penicillins [PCN] Allergy Unknown Verified 03/31/21 16:26 clindamycin AdvReac Nausea/Vom/ Verified 03/31/21 16:26 Diarrhea doxycycline AdvReac Nausea Verified 03/31/21 16:26 prednisone AdvReac Other Verified 03/31/21 16:26 ANTIBACTERIAL SOAP Allergy Hives Uncoded 03/31/21 16:26 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 03/31/21 16:26 SEASONAL ALLERGIES Allergy Other Uncoded 03/31/21 16:26 Family History Brother Hypertension Bipolar affect, depressed Surgical History No pertinent past surgical history Social History Smoking Status: Current every day smoker tobacco type: cigarettes Tobacco: How many years used: 24 second hand exposure: Yes alcohol intake: never ROS ROS ED Constitutional Constitutional ED: Denies chills, fever(s), sweats or weight loss Eyes Eyes: Denies blurry vision ENT ENT ED: Denies ear pain, rhinorrhea or sore throat Cardiovascular Cardiovascular: Denies chest pain or palpitations Respiratory/Chest Respiratory/Chest: Reports cough; Denies dyspnea or dyspnea on exertion Gastrointestinal Gastrointestinal: Reports nausea and vomiting; Denies abdominal pain, constipation or diarrhea Genitourinary Genitourinary ED: Reports dysuria and urinary frequency; Denies hematuria Musculoskeletal Musculoskeletal: Reports back pain and other Details: Scoliosis and chronic sciatica ; Denies arthralgias, myalgias or neck pain Integumentary Denies rash Neurologic Neurologic: Reports weakness; Denies headache(s) or paresthesias Psychiatric Psychiatric: Reports anxiety; Denies depression EXAM Physical Exam Const Vital Signs: 03/31/21 16:26 03/31/21 16:57 03/31/21 18:24 Temperature 98.1 F Temperature Source Temporal Pulse Rate 89 Pulse Rate [Lying] 78 Pulse Rate [Sitting] 89 Pulse Rate [Standing] 100 Respiratory Rate 18 Respiratory Effort Normal Respiratory Pattern Normal Blood Pressure 132/86 H Blood Pressure [Lying] 121/84 H Blood Pressure [Sitting] 123/110 H Blood Pressure [Standing] 127/99 H Blood Pressure Mean 101 Blood Pressure Mean [Lying] 96 Blood Pressure Mean [Sitting] 114 Blood Pressure Mean [Standing] 108 Pulse Ox 98 Oxygen Delivery Method Room Air 03/31/21 18:31 Temperature Temperature Source Pulse Rate Pulse Rate [Lying] Pulse Rate [Sitting] Pulse Rate [Standing] Respiratory Rate 16 Respiratory Effort Respiratory Pattern Blood Pressure Blood Pressure [Lying] Blood Pressure [Sitting] Blood Pressure [Standing] Blood Pressure Mean Blood Pressure Mean [Lying] Blood Pressure Mean [Sitting] Blood Pressure Mean [Standing] Pulse Ox 100 Oxygen Delivery Method Room Air Positive well nourished and well developed General Appearance ED: well developed HEENT Reports moist mucous membranes Negative for tenderness Eyes Negative for PERRL or EOMs intact bilaterally Neck no lymphadenopathy, No supple and no JVD Chest Wall inspection of chest normal Resp normal respiratory effort and clear to auscultation bilaterally Auscultation: Negative for wheezes Cardio regular rate, regular rhythm and no murmurs GI normal to inspection, nondistended, normoactive bowel sounds Palpation: soft Back/Spine no CVA tenderness Back/Spine Narrative: Patient has tenderness of the right lower lumbar par aspinal area that radiates down her leg. States is chronic. Thoracic Spine / Upper Back: Negative for thoracic spinal tenderness Lumbar Spine / Lower Back: Negative for lumbar spinal tenderness Extremity normal to inspection General Extremety ED: Negative for edema or tenderness General Extremity: Negative for edema Neuro oriented x3, CN's II-XII intact bilaterally and no sensory deficits noted Sensorium / Orientation: alert Motor Exam: strength 5/5 throughout; Negative for strength abnormal Psych mental status grossly normal Mood & Affect: Negative for anxious Skin no rashes or lesions noted MDM MDM MDM Narrative Medical decision making narrative: Patient evaluated for generalized weakness. She appears nontoxic in no acute distress. Vital signs are normal. Patient is slightly hemoconcentrated with a hemoglobin of 15.2. She does not have a leukocytosis. Platelets are normal. CMP is largely unremarkable. She has a very subtle hypokalemia of 3.3. TSH is normal. Monospot is negative. Urinalysis is not consistent with infection or any other acute process. Her symptoms do not sound cardiac. The exact cause of her presentation is not clear however I think she stable for outpatient follow-up. Patient is counseled that this could be a subtle viral infection but more likely this could be stress related. She states she has been under a lot of stress lately. She is encouraged to follow-up with her primary care doctor. She is given a work note for today and tomorrow so she can rest. Patient verbalizes agreement and understanding with this plan. She discharged home in stable condition. Lab Data Labs: Laboratory Results - last 24 hr 03/31/21 03/31/21 03/31/21 17:45 17:45 17:45 WBC 9.9 RBC 5.38 Hgb 15.2 H Hct 47.0 MCV 87.4 MCH 28.3 MCHC 32.3 RDW Std Deviation 41.1 RDW Coeff of Lev 12.9 Plt Count 240 MPV 10.8 Immature Gran % (Auto) 0.200 Neut % (Auto) 60.4 Lymph % (Auto) 29.1 Butts % (Auto) 6.4 Eos % (Auto) 3.6 Baso % (Auto) 0.3 Absolute Neuts (auto) 6.0 Absolute Lymphs (auto) 2.87 Nucleated RBC % 0 Sodium 141 Potassium 3.3 L Chloride 107 Carbon Dioxide 27.0 Anion Gap 7 BUN 11 Creatinine 0.70 Estim Creat Clear Calc 101.81 Est GFR (MDRD) Af Amer 119 Est GFR (MDRD) Non-Af 98 BUN/Creatinine Ratio 15.8 Glucose 74 Calcium 8.7 Total Bilirubin 0.30 AST 13 L ALT 35 Alkaline Phosphatase 96 Total Protein 7.5 Albumin 3.8 Globulin 3.7 Albumin/Globulin Ratio 1.0 Lipase 120 TSH 2.64 Urine Color Urine Clarity Urine pH Ur Specific [place] Urine Protein Urine Glucose (UA) Urine Ketones Urine Occult Blood Urine Nitrite Urine Bilirubin Urine Urobilinogen Ur Leukocyte Esterase Urine RBC Urine WBC Ur Squamous Epith Cells Urine Bacteria Urine Mucus Urine Test Monoscreen Negative 03/31/21 18:23 WBC RBC Hgb Hct MCV MCH MCHC RDW Std Deviation RDW Coeff of Lev Plt Count MPV Immature Gran % (Auto) Neut % (Auto) Lymph % (Auto) Butts % (Auto) Eos % (Auto) Baso % (Auto) Absolute Neuts (auto) Absolute Lymphs (auto) Nucleated RBC % Sodium Potassium Chloride Carbon Dioxide Anion Gap BUN Creatinine Estim Creat Clear Calc Est GFR (MDRD) Af Amer Est GFR (MDRD) Non-Af BUN/Creatinine Ratio Glucose Calcium Total Bilirubin AST ALT Alkaline Phosphatase Total Protein Albumin Globulin Albumin/Globulin Ratio Lipase TSH Urine Color Yellow Urine Clarity Clear Urine pH 7.0 Ur Specific [place] 1.010 Urine Protein Negative Urine Glucose (UA) Normal Urine Ketones Negative Urine Occult Blood Negative Urine Nitrite Negative Urine Bilirubin Negative Urine Urobilinogen Normal Ur Leukocyte Esterase Negative Urine RBC 0 SEEN Urine WBC 0 SEEN Ur Squamous Epith Cells 0 SEEN Urine Bacteria 0 SEEN Urine Mucus 0 SEEN Urine Test Negative Monoscreen Discharge Plan Triage Chief Complaint: Weakness ED Provider: Manasa Hudson Dx/Rx/DC Orders Clinical Impression: Fatigue, Generalized weakness Instructions: ED Weakness (Uncertain Cause) Prescriptions: No Action (DME) spacer See Rx Instructions .Route .MEDSUPPLY Qty: 1 RF: 0 famotidine 20 MG tablet 40 mg PO BID RF: 0 multivitamin 1 EACH tablet 1 ea PO DAILY RF: 0 loratadine 10 MG capsule 10 mg PO DAILY RF: 0 propranolol 10 MG tablet 10 mg PO TID RF: 0 cariprazine 1.5 MG capsule 1.5 mg PO DAILY RF: 0 benztropine 0.5 MG tablet 0.5 mg PO DAILY RF: 0 benztropine 1 MG tablet 1 mg PO QHS RF: 0 lamotrigine 25 MG tablet 50 mg PO DAILY RF: 0 cholecalciferol (vitamin D3) [Vitamin D3] 50 mcg (2,000 unit) Tablet 50 mcg PO DAILY RF: 0 Culturelle 10 billion cell Capsule 1 cap PO DAILY RF: 0 promethazine 25 mg tablet 25 mg PO TID PRN (Reason: nausea and vomiting) Qty: 14 RF: 0 Primary Care Provider: Domenic Mejia Referrals: Domenic Mejia MD [Primary Care Provider] - Disposition Disposition: Home, Self Care
[2021-03-31 17:58] LABS: Absolute Lymphocyte Count 2.87 X10^3/uL (0.83-4.51); Basophil# 0.03 X10^3/uL; Basophil% 0.3 % (0-1); Eosinophil# 0.35 X10^3/uL; Eosinophils% 3.6 % (0-5); Hemoglobin 15.2 g/dL (12.0-15.0); Lymphocyte # 2.87 X10^3/ul (0.83-4.51); Lymphocyte % 29.1 % (19-41); Mean Corp Hgb Conc 32.3 g/dL (32-36); Mean Corpuscular Hgb 28.3 pg (27.0-32.0); Mean Corpuscular Volume 87.4 fL (81-99); Mean Platelet Vol. 10.8 fl (6.2-12.0); Monocyte# 0.63 X10^3/uL; Monocyte% 6.4 % (0-10); NRBC Flagged by Analyzer 0 % (0-5); Neutrophil # 5.95 X10^3/uL (2.7-7.7); Neutrophil % 60.4 % (47-70); Platelet Count 240 K/mm3 (150-450); RBC Distribution Width CV 12.9 % (11.6-14.6); RBC Distribution Width SD 41.1 fl (35.1-43.9); Red Blood Count 5.38 M/mm3 (4.2-5.4); White Blood Count 9.9 K/mm3 (4.4-11.0)
[2021-03-31 18:16] LABS: Internal QC Validated? YES +Cl - CLEAR BKGD; Monotest Negative (Negative)
[2021-03-31 18:23] LABS: AST(SGOT) 13 U/L (15-37); Alanine Aminotransfer ALT/SGPT 35 U/L (13-56); Albumin, Serum 3.8 g/dL (3.2-5.0); Alkaline Phosphatase 96 U/L (45-117); Anion Gap 7 (5-15); BUN 11 mg/dL (7-18); BUN/Creat Ratio 15.8 RATIO (10-20); Calcium,Total 8.7 mg/dL (8.5-10.1); Chloride 107 mmol/L (98-107); EST Glomerular Filtration Rate 98 mL/min (>60); Est Glom Filt Rate - Afr Amer 119 mL/min (>60); Estimated Creatinine Clearance 101.81 ml/min; Globulin 3.7 g/dL (2.2-4.2); Glucose 74 mg/dL (74-106); Lipase 120 U/L (73-393); Potassium 3.3 mmol/L (3.5-5.1); Protein, Total 7.5 g/dL (6.4-8.2); Sodium Level 141 mmol/L (136-145); Thyroid Stim Hormone (TSH) 2.64 uIU/mL (0.358-3.74)
[2021-03-31 18:24] VITALS: BP 121/84; BP 123/110; BP 127/99; PULSE 100; PULSE 78; PULSE 89
[2021-03-31 18:28] LABS: Bacteria 0 SEEN /hpf (None Seen); Mucous, Urine 0 SEEN /hpf (<or=2+); Red Blood Cells-Urine 0 SEEN /hpf (0-5); Squamous Epithelial Cells - UA 0 SEEN /hpf (5-10); White Blood Cells 0 SEEN /hpf (0-5)
[2021-03-31 18:31] VITALS: RESP 16; O2SAT 100
[2021-03-31 18:34] LABS: Color, Urine Yellow (Yellow); Glucose, Dipstick Normal (Normal); Ketone-Dipstick Negative (Negative); Leukocyte Esterase-Dipstick Negative /ul (Negative); Nitrite-Dipstick Negative (Negative); Occult Blood-Urine Negative /ul (Negative); Protein-Dipstick Negative (Negative); Urine Bilirubin Dipstick Negative (Negative); Urine Clarity Clear (Clear); Urine Urobilinogen Normal (Normal)
[2021-03-31 18:38] LABS: Internal QC Validated? YES +Cl - CLEAR BKGD; Pregnancy, Urine Negative Negative
[2021-03-31 19:21] VITALS: RESP 16
--- NOTE | 2021-03-31 19:22 | ED.RN ---
pt called cab for ride home
== END 2021-03-31 19:22 | disposition home or self-care (01) ==
PROVIDERS: Emergency Provider Emergency Medicine; PCP Family Medicine
DX: R53.81 Other malaise (principal); R53.1 Weakness; R05 Cough; M54.9 Dorsalgia, unspecified; F17.210 Nicotine dependence, cigarettes, uncomplicated; D64.9 Anemia, unspecified; F31.9 Bipolar disorder, unspecified; J44.9 Chronic obstructive pulmonary disease, unspecified; M19.90 Unspecified osteoarthritis, unspecified site; Z79.1 Long term (current) use of non-steroidal anti-inflammatories (NSAID); Z79.52 Long term (current) use of systemic steroids; F41.9 Anxiety disorder, unspecified
CPT/HCPCS: 80053; 81001; 81025; 83690; 84443; 85025; 86308; 99284; A4216

== ENCOUNTER 2021-04-05 10:04 | Emergency (ER) | payer MEDICAID, SELFPAY ==
[2021-04-05 10:05] VITALS: BP 143/94; PULSE 97; RESP 16; TEMP 36.6; O2SAT 99; BMI 34.4
[2021-04-05 10:08] VITALS: BP 143/94; PULSE 97; RESP 16; TEMP 36.6; O2SAT 99
--- NOTE | 2021-04-05 10:40 | RAD_ITS ---
STUDY: X-RAY CHEST REASON FOR EXAM: Female, 40 years old. sob, C/O generalized fatigue for a few weeks. Cough for approx one week. Also c/o right sided back pain TECHNIQUE: Single AP portable view of the chest. COMPARISON: 01/29/2021 FINDINGS: The lungs are clear and expanded. There is no demonstrated pleural abnormality. Normal size heart. Normal mediastinum and jennifer. Normal visualized pulmonary arteries. Normal visualized aortic arch and descending thoracic aorta. Normal visualized thoracic spine. Normal visualized ribs, clavicles, and shoulders. There is no demonstrated abnormality of the visualized soft tissue structures of the upper abdomen. RAD/Chest 1 View (Portable) IMPRESSION: Normal x-ray examination of the chest. Electronically Signed: Jose Roman MD at 11:38 EDT Tel , Service support ,
--- NOTE | 2021-04-05 10:41 | EKG12_ITS ---
Test Reason : GENERAL Blood Pressure : / mmHG Vent. Rate : 087 BPM Atrial Rate : 087 BPM P-R Int : 148 ms QRS Dur : 082 ms QT Int : 358 ms P-R-T Axes : 062 038 018 degrees QTc Int : 430 ms Normal sinus rhythm Normal ECG Confirmed by CORY KHAN, THOMAS ([id number]), map editor LOUISA ROBIN ([id number]) on 04/09/2021 1:28:16 PM Referred By: SHWETA Confirmed By:THOMAS RAY MD
[2021-04-05 11:07] VITALS: BP 127/74; PULSE 80; RESP 15; O2SAT 100
[2021-04-05] MEDS: 0.9% Normal Saline 1,000 ML 1000 ML IV (11:08)
[2021-04-05 11:19] LABS: Absolute Lymphocyte Count 2.28 X10^3/uL (0.83-4.51); Absolute Neutrophil Count 6.2 X10^3/uL (2.0-7.7); Basophil# 0.04 X10^3/uL; Basophil% 0.4 % (0-1); Eosinophils% 2.1 % (0-5); Hematocrit 46.3 % (37-47); Hemoglobin 15.2 g/dL (12.0-15.0); Lymphocyte # 2.28 X10^3/ul (0.83-4.51); Lymphocyte % 24.4 % (19-41); Mean Corp Hgb Conc 32.8 g/dL (32-36); Mean Corpuscular Hgb 28.3 pg (27.0-32.0); Mean Corpuscular Volume 86.1 fL (81-99); Mean Platelet Vol. 10.6 fl (6.2-12.0); Monocyte# 0.63 X10^3/uL; Monocyte% 6.7 % (0-10); NRBC Flagged by Analyzer 0 % (0-5); Neutrophil # 6.15 X10^3/uL (2.7-7.7); Neutrophil % 65.9 % (47-70); Platelet Count 210 K/mm3 (150-450); RBC Distribution Width CV 12.6 % (11.6-14.6); RBC Distribution Width SD 39.6 fl (35.1-43.9); Red Blood Count 5.38 M/mm3 (4.2-5.4); White Blood Count 9.4 K/mm3 (4.4-11.0)
[2021-04-05 11:30] LABS: Bacteria 0 SEEN /hpf (None Seen); Mucous, Urine 0 SEEN /hpf (<or=2+); Red Blood Cells-Urine 0 SEEN /hpf (0-5); Squamous Epithelial Cells - UA 0 SEEN /hpf (5-10); White Blood Cells 0 SEEN /hpf (0-5)
[2021-04-05 11:31] LABS: Anion Gap 3 (5-15); BUN 13 mg/dL (7-18); BUN/Creat Ratio 19.5 RATIO (10-20); Calcium,Total 8.9 mg/dL (8.5-10.1); Chloride 110 mmol/L (98-107); Creatinine, Serum 0.67 mg/dL (0.55-1.02); EST Glomerular Filtration Rate 103 mL/min (>60); Est Glom Filt Rate - Afr Amer 124 mL/min (>60); Estimated Creatinine Clearance 106.37 ml/min; Glucose 109 mg/dL (74-106); Potassium 3.7 mmol/L (3.5-5.1); Sodium Level 138 mmol/L (136-145)
[2021-04-05 11:36] LABS: Color, Urine Yellow (Yellow); Glucose, Dipstick Normal (Normal); Ketone-Dipstick Negative (Negative); Leukocyte Esterase-Dipstick Negative /ul (Negative); Nitrite-Dipstick Negative (Negative); Occult Blood-Urine Negative /ul (Negative); Protein-Dipstick Negative (Negative); Urine Bilirubin Dipstick Negative (Negative); Urine Clarity Clear (Clear); Urine Urobilinogen Normal (Normal)
[2021-04-05 11:47] LABS: D-Dimer Quantitative (DVT/PE) 0.45 FEU/ug/m (0.27-0.49)
[2021-04-05 12:00] VITALS: BP 124/79; PULSE 74; RESP 5; O2SAT 99
[2021-04-05 13:58] VITALS: BP 120/81; PULSE 86; RESP 16; O2SAT 98
--- NOTE | 2021-04-05 14:21 | EX.ED.DYSGE1 ---
HPI History of Present Illness Chief Complaint: General Illness Informant: patient Onset/Context/Timing Onset: Weeks Context: Gradual Onset Current Severity: Moderate Maximum Severity: Moderate Narrative Narrative: Patient presents with multiple complaints. She complains of generalized fatigue ongoing for weeks. She will describe falling asleep in the middle of an activity. She reports cough for the past 1 week with clear to white-colored sputum. She complains of some right lower back pain but no known injury. She reports some shortness of breath but no chest pain. No fever or chills. Patient was seen on the for the same. Work-up at that time was unremarkable and it was felt that she likely had a viral syndrome. Patient states that she is concerned she has pneumonia that was not ruled out on her last visit. It does not appear the patient has had a recent Covid test. [facility] Medical History Anemia Anxiety Arthritis ASTHMA Chest pain Chronic cough Depression Difficulty balancing Fatigue NECK/BACK PAIN Severe headache Shoulder pain Stomach ulcer Home Medications loratadine 10 mg PO QHS 09/03/18 [History Last Taken Unknown] multivitamin 1 ea PO DAILY 09/03/18 [History Last Taken Unknown] spacer #1 ea 02/14/19 [Rx Last Taken Unknown] propranolol 10 mg PO DAILY 04/24/19 [History Last Taken Unknown] benztropine 0.5 mg PO DAILY 11/08/20 [History Last Taken Unknown] lamotrigine 50 mg PO DAILY 11/08/20 [History Last Taken Unknown] cholecalciferol (vitamin D3) [Vitamin D3] 50 mcg PO DAILY 01/16/21 [History Last Taken Unknown] Lactobacillus rhamnosus GG [Culturelle] 1 cap PO DAILY 01/25/21 [History Last Taken Unknown] cariprazine [Vraylar] 1.5 mg PO DAILY 04/05/21 [History Last Taken Unknown] pantoprazole 40 mg PO DAILY 04/05/21 [History Last Taken Unknown] Allergy/AdvReac Type Severity Reaction Status Date / Time influenza virus vaccine, Allergy Other Verified 04/05/21 10:09 specific [influenza virus vacc,specific] iodine Allergy Rash Verified 04/05/21 10:09 Latex, Natural Rubber Allergy Rash Verified 04/05/21 10:09 [place] Allergy Anaphylaxis Verified 04/05/21 10:09 meloxicam Allergy Other Verified 04/05/21 10:09 metronidazole [From Flagyl] Allergy Hives Verified 04/05/21 10:09 montelukast [From Singulair] Allergy Rash Verified 04/05/21 10:09 morphine Allergy Other Verified 04/05/21 10:09 Penicillins [PCN] Allergy Unknown Verified 04/05/21 10:09 clindamycin AdvReac Nausea/Vom/ Verified 04/05/21 10:09 Diarrhea doxycycline AdvReac Nausea Verified 04/05/21 10:09 prednisone AdvReac Other Verified 04/05/21 10:09 ANTIBACTERIAL SOAP Allergy Hives Uncoded 04/05/21 10:09 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 04/05/21 10:09 SEASONAL ALLERGIES Allergy Other Uncoded 04/05/21 10:09 Family History Brother Hypertension Bipolar affect, depressed Surgical History No pertinent past surgical history Social History Smoking Status: Current every day smoker tobacco type: cigarettes Tobacco: How many years used: 24 second hand exposure: Yes alcohol intake: never ROS ROS ED Constitutional Constitutional ED: Denies chills or fever(s) Eyes Eyes: Denies change in vision ENT ENT ED: Denies sore throat Cardiovascular Cardiovascular: Denies chest pain Respiratory/Chest Respiratory/Chest: Reports cough and dyspnea Gastrointestinal Gastrointestinal: Reports nausea; Denies abdominal pain, diarrhea or vomiting Genitourinary Genitourinary ED: Denies dysuria Musculoskeletal Musculoskeletal: Reports back pain Integumentary Denies rash Neurologic Neurologic: Reports weakness; Denies headache(s) Psychiatric Psychiatric: Denies anxiety or depression Allergic/Immunologic Allergic/Immunologic ED: Denies urticaria EXAM Physical Exam Const Vital Signs: 04/05/21 10:05 04/05/21 10:08 04/05/21 10:37 Temperature 97.8 F 97.8 F Temperature Source Temporal Temporal Pulse Rate 97 97 Respiratory Rate 16 16 Respiratory Effort Normal Non-Labored Respiratory Pattern Normal Blood Pressure 143/94 H 143/94 H Blood Pressure Mean 110 110 Pulse Ox 99 99 Oxygen Delivery Method Room Air Room Air 04/05/21 11:07 04/05/21 12:00 04/05/21 13:58 Temperature Temperature Source Pulse Rate 80 74 86 Respiratory Rate 15 5 L 16 Respiratory Effort Respiratory Pattern Blood Pressure 127/74 H 124/79 H 120/81 H Blood Pressure Mean 91 94 94 Pulse Ox 100 99 98 Oxygen Delivery Method Room Air Room Air Room Air 04/05/21 14:36 Temperature Temperature Source Pulse Rate 87 Respiratory Rate 16 Respiratory Effort Respiratory Pattern Blood Pressure 130/87 H Blood Pressure Mean Pulse Ox 100 Oxygen Delivery Method Positive well nourished and well developed General Appearance ED: well developed HEENT Reports normocephalic and head/scalp atraumatic Eyes PERRL and EOMs intact bilaterally Neck supple Chest Wall inspection of chest normal and palpation of chest normal Resp normal respiratory effort and clear to auscultation bilaterally Cardio regular rate and regular rhythm GI normal to inspection, nondistended, normoactive bowel sounds Palpation: soft Back/Spine no CVA tenderness Back/Spine Narrative: Mild muscular tenderness in the right low lateral lumbar paraspinals. No overlying skin change. Extremity normal to inspection Neuro oriented x3 and no sensory deficits noted Neuro Narrative: Waxing and waning tremor to the right upper extremity. This is a chronic and ongoing. Sensorium / Orientation: alert Motor Exam: strength 5/5 throughout Psych mental status grossly normal Skin no rashes or lesions noted MDM MDM MDM Narrative Medical decision making narrative: Labs, urinalysis, EKG obtained. Chest x-ray obtained. Covid swab obtained. Lab Data Labs: Laboratory Results - last 24 hr 04/05/21 04/05/21 04/05/21 10:46 11:00 11:00 WBC 9.4 RBC 5.38 Hgb 15.2 H Hct 46.3 MCV 86.1 MCH 28.3 MCHC 32.8 RDW Std Deviation 39.6 RDW Coeff of Lev 12.6 Plt Count 210 MPV 10.6 Immature Gran % (Auto) 0.500 Neut % (Auto) 65.9 Lymph % (Auto) 24.4 Edgar % (Auto) 6.7 Eos % (Auto) 2.1 Baso % (Auto) 0.4 Absolute Neuts (auto) 6.2 Absolute Lymphs (auto) 2.28 Nucleated RBC % 0 D-Dimer Quant (PE/DVT) 0.45 Sodium Potassium Chloride Carbon Dioxide Anion Gap BUN Creatinine Estim Creat Clear Calc Est GFR (MDRD) Af Amer Est GFR (MDRD) Non-Af BUN/Creatinine Ratio Glucose Calcium Urine Color Urine Clarity Urine pH Ur Specific [place] Urine Protein Urine Glucose (UA) Urine Ketones Urine Occult Blood Urine Nitrite Urine Bilirubin Urine Urobilinogen Ur Leukocyte Esterase Urine RBC Urine WBC Ur Squamous Epith Cells Urine Bacteria Urine Mucus COVID-19 (NOA) Not Detected 04/05/21 04/05/21 11:00 11:20 WBC RBC Hgb Hct MCV MCH MCHC RDW Std Deviation RDW Coeff of Lev Plt Count MPV Immature Gran % (Auto) Neut % (Auto) Lymph % (Auto) Edgar % (Auto) Eos % (Auto) Baso % (Auto) Absolute Neuts (auto) Absolute Lymphs (auto) Nucleated RBC % D-Dimer Quant (PE/DVT) Sodium 138 Potassium 3.7 Chloride 110 H Carbon Dioxide 25.0 Anion Gap 3 L BUN 13 Creatinine 0.67 Estim Creat Clear Calc 106.37 Est GFR (MDRD) Af Amer 124 Est GFR (MDRD) Non-Af 103 BUN/Creatinine Ratio 19.5 Glucose 109 H Calcium 8.9 Urine Color Yellow Urine Clarity Clear Urine pH 7.0 Ur Specific [place] 1.010 Urine Protein Negative Urine Glucose (UA) Normal Urine Ketones Negative Urine Occult Blood Negative Urine Nitrite Negative Urine Bilirubin Negative Urine Urobilinogen Normal Ur Leukocyte Esterase Negative Urine RBC 0 SEEN Urine WBC 0 SEEN Ur Squamous Epith Cells 0 SEEN Urine Bacteria 0 SEEN Urine Mucus 0 SEEN COVID-19 (NOA) Radiography Chest X-Ray - ED: 1 View, Read by ED Physician, Normal, Heart, Lungs and Mediastinum Diagnostic Testing: Radiology Impression Chest X-Ray 04/05/21 10:40 IMPRESSION: Normal x-ray examination of the chest. Electronically Signed: Jose Roman MD at 11:38 EDT Tel , Service support , EKG Initial EKG: Attestation: I personally reviewed and interpreted this EKG as follows: Interpretation: Sinus Rhythm (Sinus 87 with no acute ischemia.) Treatment and Re-Evaluation Comments:: Test results discussed with the patient on repeat evaluation. Covid swab is negative. Labs are unremarkable. Patient is requesting testing for narcolepsy. I advised her that that is not an emergency room test. She can follow-up with her primary care physician or neurology. She will be written off work today. Discharge Plan Triage Chief Complaint: General Illness ED Provider: Juana Christopher Dx/Rx/DC Orders Clinical Impression: Fatigue Instructions: ED Weakness (Uncertain Cause) Prescriptions: No Action (DME) spacer See Rx Instructions .Route .MEDSUPPLY Qty: 1 RF: 0 multivitamin 1 EACH tablet 1 ea PO DAILY RF: 0 loratadine 10 MG capsule 10 mg PO QHS RF: 0 propranolol 10 MG tablet 10 mg PO DAILY RF: 0 benztropine 0.5 MG tablet 0.5 mg PO DAILY RF: 0 lamotrigine 25 MG tablet 50 mg PO DAILY RF: 0 cholecalciferol (vitamin D3) [Vitamin D3] 50 mcg (2,000 unit) Tablet 50 mcg PO DAILY RF: 0 Culturelle 10 billion cell Capsule 1 cap PO DAILY RF: 0 pantoprazole 40 mg Tablet,Delayed Release (Dr/Ec) 40 mg PO DAILY RF: 0 Vraylar 1.5 mg Capsule 1.5 mg PO DAILY RF: 0 Stand Alone Forms: ED Work / School Excuse Primary Care Provider: Domenic Mejia Referrals: Domenic Mejia MD [Primary Care Provider] - As soon as possible Eddie Duran MD [STAFF PHYSICIAN] - As soon as possible Disposition Disposition: Home, Self Care Discharge Date/Time: 04/05/21 14:37
[2021-04-05 14:36] VITALS: BP 130/87; PULSE 87; RESP 16; O2SAT 100
== END 2021-04-05 14:37 | disposition home or self-care (01) ==
PROVIDERS: Emergency Provider Emergency Medicine; PCP Family Medicine
DX: R53.83 Other fatigue (principal); M54.9 Dorsalgia, unspecified; R05 Cough; D64.9 Anemia, unspecified; F17.210 Nicotine dependence, cigarettes, uncomplicated; F32.9 Major depressive disorder, single episode, unspecified; F41.9 Anxiety disorder, unspecified; J45.909 Unspecified asthma, uncomplicated; M19.90 Unspecified osteoarthritis, unspecified site; Z79.1 Long term (current) use of non-steroidal anti-inflammatories (NSAID); Z79.52 Long term (current) use of systemic steroids
CPT/HCPCS: 71045; 80048; 81001; 85025; 85379; 87635; 93005; 96360; 99284; J7030; U0005; U0003

== ENCOUNTER 2021-05-07 05:12 | Emergency (ER) | payer MEDICAID, SELFPAY ==
[2021-05-07 05:14] VITALS: BP 144/92; PULSE 104; RESP 16; TEMP 36.2; O2SAT 99; BMI 32.8
--- NOTE | 2021-05-07 05:49 | EX.ED.VIS.HA ---
HPI History of Present Illness Chief Complaint: Headache Informant: patient Onset/Context/Timing Onset: Hours (5) Context: Sudden Timing: Continuous Quality -Headache: Positive for Similar Prior Headaches and Throbbing Location: bifrontal Current Severity: Severe Maximum Severity: Severe Worsened by: light Relieved by: nothing Associated Symptoms/Injury Associated Symptoms: Positive for Vomiting and Photophobia; Negative for Fever, Numbness, Tingling, Blurred Vision and Visual Loss Injury - VICENTE: Negative for Direct Trauma, Fall and Assault [facility] Medical History (Updated 05/07/21 @ 06:[address] Derrick Gallegos MD) Anemia Anxiety Arthritis ASTHMA Chest pain Chronic cough Depression Difficulty balancing Fatigue NECK/BACK PAIN Severe headache Shoulder pain Stomach ulcer Home Medications loratadine 10 mg PO QHS 09/03/18 [History Last Taken Unknown] multivitamin 1 ea PO DAILY 09/03/18 [History Last Taken Unknown] spacer #1 ea 02/14/19 [Rx Last Taken Unknown] propranolol 10 mg PO DAILY 04/24/19 [History Last Taken Unknown] benztropine 0.5 mg PO DAILY 11/08/20 [History Last Taken Unknown] lamotrigine 50 mg PO DAILY 11/08/20 [History Last Taken Unknown] cholecalciferol (vitamin D3) [Vitamin D3] 50 mcg PO DAILY 01/16/21 [History Last Taken Unknown] Lactobacillus rhamnosus GG [Culturelle] 1 cap PO DAILY 01/25/21 [History Last Taken Unknown] cariprazine [Vraylar] 1.5 mg PO DAILY 04/05/21 [History Last Taken Unknown] pantoprazole 40 mg PO DAILY 04/05/21 [History Last Taken Unknown] Allergy/AdvReac Type Severity Reaction Status Date / Time influenza virus vaccine, Allergy Other Verified 05/07/21 05:13 specific [influenza virus vacc,specific] iodine Allergy Rash Verified 05/07/21 05:13 Latex, Natural Rubber Allergy Rash Verified 05/07/21 05:13 [place] Allergy Anaphylaxis Verified 05/07/21 05:13 meloxicam Allergy Other Verified 05/07/21 05:13 metronidazole [From Flagyl] Allergy Hives Verified 05/07/21 05:13 montelukast [From Singulair] Allergy Rash Verified 05/07/21 05:13 morphine Allergy Other Verified 05/07/21 05:13 Penicillins [PCN] Allergy Unknown Verified 05/07/21 05:13 clindamycin AdvReac Nausea/Vom/ Verified 05/07/21 05:13 Diarrhea doxycycline AdvReac Nausea Verified 05/07/21 05:13 prednisone AdvReac Other Verified 05/07/21 05:13 ANTIBACTERIAL SOAP Allergy Hives Uncoded 05/07/21 05:13 HAND 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 Allergy Hives Uncoded 05/07/21 05:13 SEASONAL ALLERGIES Allergy Other Uncoded 05/07/21 05:13 Family History Brother Hypertension Bipolar affect, depressed Surgical History No pertinent past surgical history Social History Smoking Status: Current every day smoker tobacco type: cigarettes Tobacco: How many years used: 24 second hand exposure: Yes alcohol intake: never ROS ROS ED Constitutional Constitutional ED: Denies chills or fever(s) Eyes Eyes: Reports blurry vision; Denies diplopia ENT ENT ED: Denies ear pain or sore throat Cardiovascular Cardiovascular: Denies chest pain or palpitations Respiratory/Chest Respiratory/Chest: Denies cough or dyspnea Gastrointestinal Gastrointestinal: Reports nausea and vomiting; Denies abdominal pain or diarrhea Genitourinary Genitourinary ED: Denies dysuria or urinary frequency Musculoskeletal Musculoskeletal: Denies back pain or myalgias Integumentary Denies abscess or rash Neurologic Neurologic: Reports headache(s); Denies paresthesias or weakness EXAM Physical Exam Const Vital Signs: 05/07/21 05:14 Temperature 97.2 F L Temperature Source Oral Pulse Rate 104 H Respiratory Rate 16 Blood Pressure 144/92 H Blood Pressure Mean 109 Pulse Ox 99 Oxygen Delivery Method Room Air HEENT Reports normocephalic and moist mucous membranes atraumatic Eyes PERRL, EOMs intact bilaterally and conjunctivae normal Eyes Narrative: photophobia Neck no lymphadenopathy, supple and no meningeal signs Resp normal respiratory effort and clear to auscultation bilaterally GI non-tender and non-distended Palpation: soft Extremity normal to inspection and full ROM Neuro oriented x3 and CN's II-XII intact bilaterally Sensorium / Orientation: awake and alert Speech: speech normal Gait (Neuro): normal gait Motor Exam: strength 5/5 throughout Psych mental status grossly normal Skin Lesions: no lesions Rashes: no rashes MDM MDM MDM Narrative Medical decision making narrative: Patient presents saying I have a migraine. She is presenting like a migraine. She was given injections of Toradol and Reglan, Toradol has helped her in the past. She did feel better with almost complete resolution of her headache and was discharged in stable improved condition. Discharge Plan Triage Chief Complaint: Headache ED Provider: Derrick Gallegos Dx/Rx/DC Orders Clinical Impression: Migraine headache Instructions: ED, Migraine (Classical) Prescriptions: No Action (DME) spacer See Rx Instructions .Route .MEDSUPPLY Qty: 1 RF: 0 multivitamin 1 EACH tablet 1 ea PO DAILY RF: 0 loratadine 10 MG capsule 10 mg PO QHS RF: 0 propranolol 10 MG tablet 10 mg PO DAILY RF: 0 benztropine 0.5 MG tablet 0.5 mg PO DAILY RF: 0 lamotrigine 25 MG tablet 50 mg PO DAILY RF: 0 cholecalciferol (vitamin D3) [Vitamin D3] 50 mcg (2,000 unit) Tablet 50 mcg PO DAILY RF: 0 Culturelle 10 billion cell Capsule 1 cap PO DAILY RF: 0 pantoprazole 40 mg Tablet,Delayed Release (Dr/Ec) 40 mg PO DAILY RF: 0 Vraylar 1.5 mg Capsule 1.5 mg PO DAILY RF: 0 Primary Care Provider: Domenic Mejia Referrals: Domenic Mejia MD [Primary Care Provider] - 3-5 Days if not improving Disposition Disposition: Home, Self Care
[2021-05-07] MEDS: Ketorolac 60 MG/2 ML Vial IM (06:09)
[2021-05-07 06:57] VITALS: BP 133/95; PULSE 86; RESP 16; O2SAT 100
== END 2021-05-07 06:58 | disposition home or self-care (01) ==
LOC: ED 06:43
PROVIDERS: Emergency Provider Emergency Medicine; PCP Family Medicine
DX: G43.909 Migraine, unspecified, not intractable, without status migrainosus (principal); F32.9 Major depressive disorder, single episode, unspecified; F41.9 Anxiety disorder, unspecified; F17.210 Nicotine dependence, cigarettes, uncomplicated
CPT/HCPCS: 96372; 99285

== ENCOUNTER 2021-05-25 01:04 | Emergency (ER) | payer MEDICAID, SELFPAY ==
[2021-05-25 01:06] VITALS: BP 128/84; PULSE 103; RESP 16; TEMP 36.6; O2SAT 96; BMI 35.8
--- NOTE | 2021-05-25 01:25 | EDS_ITS ---
HPI History of Present Illness Chief Complaint: Nausea/Vomiting/Diarrhea Detail of Chief Complaint: Nausea and vomiting amongst other complaints Informant: patient Narrative Narrative: Patient presents to the emergency department with multiple complaints today. Patient states that she has had some vomiting 2 days ago and diarrhea 3 or 4 days ago. Patient is wondering if the Protonix that she is on is causing her symptoms. Patient states that she has been on it over 8 weeks. She called her twisting machine operator who told her that she should be weaning off of it. Patient also states that her brother was taken from her residence by police today because of drug use. Patient also states that she has had a cough and feels like she is dehydrated. She denies Covid exposures. She is not been vaccinated against Covid. She denies any blood in her stool or black tarry stools. Patient has history of asthma, anxiety, and GERD. Prior similar symptoms: No [facility] Medical History (Updated 05/25/21 @ 02:[address] Ganga Chambers, DO) Anemia Anxiety Arthritis ASTHMA Chest pain Chronic cough Depression Difficulty balancing Fatigue NECK/BACK PAIN Severe headache Shoulder pain Stomach ulcer Home Medications loratadine 10 mg PO QHS 09/03/18 [History Last Taken Unknown] multivitamin 1 ea PO DAILY 09/03/18 [History Last Taken Unknown] spacer #1 ea 02/14/19 [Rx Last Taken Unknown] propranolol 10 mg PO DAILY 04/24/19 [History Last Taken Unknown] benztropine 0.5 mg PO DAILY 11/08/20 [History Last Taken Unknown] lamotrigine 50 mg PO DAILY 11/08/20 [History Last Taken Unknown] cholecalciferol (vitamin D3) [Vitamin D3] 50 mcg PO DAILY 01/16/21 [History Last Taken Unknown] Lactobacillus rhamnosus GG [Culturelle] 1 cap PO DAILY 01/25/21 [History Last Taken Unknown] cariprazine [Vraylar] 1.5 mg PO DAILY 04/05/21 [History Last Taken Unknown] pantoprazole 40 mg PO DAILY 04/05/21 [History Last Taken Unknown] Allergy/AdvReac Type Severity Reaction Status Date / Time influenza virus vaccine, Allergy Other Verified 05/25/21 01:10 specific [influenza virus vacc,specific] iodine Allergy Rash Verified 05/25/21 01:10 Latex, Natural Rubber Allergy Rash Verified 05/25/21 01:10 [place] Allergy Anaphylaxis Verified 05/25/21 01:10 meloxicam Allergy Other Verified 05/25/21 01:10 metronidazole [From Flagyl] Allergy Hives Verified 05/25/21 01:10 montelukast [From Singulair] Allergy Rash Verified 05/25/21 01:10 morphine Allergy Other Verified 05/25/21 01:10 Penicillins [PCN] Allergy Unknown Verified 05/25/21 01:10 clindamycin AdvReac Nausea/Vom/ Verified 05/25/21 01:10 Diarrhea doxycycline AdvReac Nausea Verified 05/25/21 01:10 prednisone AdvReac Other Verified 05/25/21 01:10 ANTIBACTERIAL SOAP Allergy Hives Uncoded 05/25/21 01:10 HAND HAND CANDY DIPPER Allergy Hives Uncoded 05/25/21 01:10 SEASONAL ALLERGIES Allergy Other Uncoded 05/25/21 01:10 Family History Brother Hypertension Bipolar affect, depressed Surgical History No pertinent past surgical history Social History Smoking Status: Current every day smoker tobacco type: cigarettes Tobacco: How many years used: 24 second hand exposure: Yes alcohol intake: never ROS ROS ED Constitutional Constitutional ED: Reports systems reviewed and no addt'l complaints, except as documented; Denies body ache(s), change in weight or chills Eyes Eyes: Denies acute decrease in peripheral vision, change in vision, double vision or loss of vision ENT ENT ED: Reports none; Denies ear pain, lip swelling, loss taste/smell, neck pain, otalgia or sore throat Cardiovascular Cardiovascular: Reports none; Denies abdominal pain, chest pain with activity, leg edema, lightheadedness, palpitations, rapid heart rate or syncope Respiratory/Chest Respiratory/Chest: Reports cough Gastrointestinal Gastrointestinal: Reports diarrhea, nausea and vomiting Genitourinary Genitourinary ED: Reports none; Denies abdominal discomfort, anuria, dysuria, genital pain or polyuria Musculoskeletal Musculoskeletal: Reports none; Denies arthralgias, back pain, difficulty walking, extremity pain, muscle weakness or myalgias Integumentary Reports none; Denies abscess or rash Neurologic Neurologic: Reports none; Denies abnormal gait, confusion, focal weakness, frequent falls, headache(s), loss of vision, numbness, paresthesias, radicular pain, vertigo or weakness Psychiatric Psychiatric: Reports systems reviewed and no addt'l complaints, except as documented and none; Denies behavioral changes, confusion, difficulty concentrating, hallucinations, suicidal ideation, tactile hallucinations or visual hallucinations Endocrine Endocrinology: Denies none, cold intolerance, excessive sweating, fatigue or h eat intolerance Hematologic/Lymphatic Hematologic/Lymphatic: Reports none; Denies anemia, easy bleeding or easy bruising Allergic/Immunologic Allergic/Immunologic ED: Denies as per HPI, none, lip swelling, mouth swelling, throat swelling, tongue swelling or hives EXAM Physical Exam Const Vital Signs: 05/25/21 01:06 Temperature 97.8 F Temperature Source Temporal Pulse Rate 103 H Respiratory Rate 16 Blood Pressure 128/84 H Blood Pressure Mean 98 Pulse Ox 96 Oxygen Delivery Method Room Air Positive well nourished and well developed General Appearance ED: well developed and NAD HEENT Reports TM's clear and moist mucous membranes normocephalic and atraumatic; Negative for trauma or tenderness Tympanic Membrane ED: Yes TM's clear Eyes PERRL and EOMs intact bilaterally General Eye ED: Negative for pale conjunctiva or scleral icterus Neck no lymphadenopathy, supple and no JVD General: Negative for tenderness Chest Wall inspection of chest normal and palpation of chest normal Chest: Negative for tenderness Resp normal respiratory effort and clear to auscultation bilaterally Effort and Inspection: Negative for respiratory distress or pain with movement Auscultation: Negative for rhonchi, wheezes or diminished lung sounds Cardio regular rate, regular rhythm, S1 normal heart sound, S2 normal heart sound and no murmurs Peripheral Pulses: pulses 2+ throughout GI normal to inspection, nondistended, normoactive bowel sounds, soft to palpation, non-tender, non-distended and no masses Back/Spine no CVA tenderness and no thoracic nor lumbar tenderness Extremity normal to inspection General Extremety ED: Negative for edema General Extremity: Negative for edema Neuro oriented x3, CN's II-XII intact bilaterally, no sensory deficits noted and gait normal Sensorium / Orientation: awake, alert, oriented to person, oriented to place and oriented to time Motor Exam: strength 5/5 throughout and strength abnormal Psych mental status grossly normal Skin no rashes or lesions noted and no wounds MDM MDM MDM Narrative Medical decision making narrative: Patient's work-up is unremarkable in the emergency department. She is advised to follow-up with her primary care physician within next 3 to 5 days. Patient advised to discuss her Protonix issue with her twisting machine operator. Lab Data Attestation: I reviewed the patient's lab results. Labs: Laboratory Results - last 24 hr 05/25/21 05/25/21 01:35 01:35 WBC 10.4 RBC 4.97 Hgb 14.0 Hct 43.3 MCV 87.1 MCH 28.2 MCHC 32.3 RDW Std Deviation 41.8 RDW Coeff of Lev 13.2 Plt Count 225 MPV 10.3 Immature Gran % (Auto) 0.400 Neut % (Auto) 64.4 Lymph % (Auto) 24.3 [place] % (Auto) 7.7 Eos % (Auto) 2.9 Baso % (Auto) 0.3 Absolute Neuts (auto) 6.7 Absolute Lymphs (auto) 2.53 Nucleated RBC % 0 Sodium 139 Potassium 3.7 Chloride 108 H Carbon Dioxide 26.0 Anion Gap 5 BUN 11 Creatinine 0.86 Estim Creat Clear Calc 82.87 Est GFR (MDRD) Af Amer 93 Est GFR (MDRD) Non-Af 77 BUN/Creatinine Ratio 12.8 Glucose 103 Calcium 8.7 Total Bilirubin 0.30 AST 25 ALT 84 H Alkaline Phosphatase 99 Total Protein 7.2 Albumin 3.6 Globulin 3.6 Albumin/Globulin Ratio 1.0 Discharge Plan Triage Chief Complaint: Nausea/Vomiting/Diarrhea ED Provider: Ganga Chambers Dx/Rx/DC Orders Clinical Impression: Nausea vomiting and diarrhea Instructions: Nausea Vomit Control Prescriptions: No Action (DME) spacer See Rx Instructions .Route .MEDSUPPLY Qty: 1 RF: 0 multivitamin 1 EACH tablet 1 ea PO DAILY RF: 0 loratadine 10 MG capsule 10 mg PO QHS RF: 0 propranolol 10 MG tablet 10 mg PO DAILY RF: 0 benztropine 0.5 MG tablet 0.5 mg PO DAILY RF: 0 lamotrigine 25 MG tablet 50 mg PO DAILY RF: 0 cholecalciferol (vitamin D3) [Vitamin D3] 50 mcg (2,000 unit) Tablet 50 mcg PO DAILY RF: 0 Culturelle 10 billion cell Capsule 1 cap PO DAILY RF: 0 pantoprazole 40 mg Tablet,Delayed Release (Dr/Ec) 40 mg PO DAILY RF: 0 Vraylar 1.5 mg Capsule 1.5 mg PO DAILY RF: 0 Primary Care Provider: Domenic Mejia Referrals: Domenic Mejia MD [Primary Care Provider] - 3-5 Days Disposition Disposition: Home, Self Care
[2021-05-25 01:43] LABS: Absolute Lymphocyte Count 2.53 X10^3/uL (0.83-4.51); Absolute Neutrophil Count 6.7 X10^3/uL (2.0-7.7); Basophil# 0.03 X10^3/uL; Basophil% 0.3 % (0-1); Eosinophils% 2.9 % (0-5); Hematocrit 43.3 % (37-47); Lymphocyte # 2.53 X10^3/ul (0.83-4.51); Lymphocyte % 24.3 % (19-41); Mean Corp Hgb Conc 32.3 g/dL (32-36); Mean Corpuscular Hgb 28.2 pg (27.0-32.0); Mean Corpuscular Volume 87.1 fL (81-99); Mean Platelet Vol. 10.3 fl (6.2-12.0); Monocyte% 7.7 % (0-10); NRBC Flagged by Analyzer 0 % (0-5); Neutrophil % 64.4 % (47-70); Platelet Count 225 K/mm3 (150-450); RBC Distribution Width CV 13.2 % (11.6-14.6); RBC Distribution Width SD 41.8 fl (35.1-43.9); Red Blood Count 4.97 M/mm3 (4.2-5.4); White Blood Count 10.4 K/mm3 (4.4-11.0)
[2021-05-25 02:09] LABS: AST(SGOT) 25 U/L (15-37); Alanine Aminotransfer ALT/SGPT 84 U/L (13-56); Albumin, Serum 3.6 g/dL (3.2-5.0); Alkaline Phosphatase 99 U/L (45-117); Anion Gap 5 (5-15); BUN 11 mg/dL (7-18); BUN/Creat Ratio 12.8 RATIO (10-20); Calcium,Total 8.7 mg/dL (8.5-10.1); Chloride 108 mmol/L (98-107); Creatinine, Serum 0.86 mg/dL (0.55-1.02); EST Glomerular Filtration Rate 77 mL/min (>60); Est Glom Filt Rate - Afr Amer 93 mL/min (>60); Estimated Creatinine Clearance 82.87 ml/min; Globulin 3.6 g/dL (2.2-4.2); Glucose 103 mg/dL (74-106); Potassium 3.7 mmol/L (3.5-5.1); Protein, Total 7.2 g/dL (6.4-8.2); Sodium Level 139 mmol/L (136-145)
== END 2021-05-25 02:29 | disposition home or self-care (01) ==
PROVIDERS: Emergency Provider Emergency Medicine; PCP Family Medicine
DX: R11.2 Nausea with vomiting, unspecified (principal); R19.7 Diarrhea, unspecified; R05 Cough; F17.210 Nicotine dependence, cigarettes, uncomplicated; J45.909 Unspecified asthma, uncomplicated; F41.9 Anxiety disorder, unspecified; K21.9 Gastro-esophageal reflux disease without esophagitis; D64.9 Anemia, unspecified; F32.9 Major depressive disorder, single episode, unspecified; Z79.1 Long term (current) use of non-steroidal anti-inflammatories (NSAID); Z79.52 Long term (current) use of systemic steroids
CPT/HCPCS: 80053; 85025; 87426; 99285; J7040; A4216

== ENCOUNTER 2021-10-10 07:03 | Emergency (ER) | payer MEDICAID, SELFPAY ==
[2021-10-10 07:05] VITALS: BP 144/104; PULSE 107; RESP 18; TEMP 36.2; O2SAT 96; BMI 38.0
--- NOTE | 2021-10-10 07:19 | EX.ED.DYSGE1 ---
HPI History of Present Illness Chief Complaint: Other, Pain/Inj Informant: patient Onset/Context/Timing Onset: Days (1 week) Current Severity: Mild Maximum Severity: Moderate Narrative Narrative: Patient presents with 1 week history of increased number of bowel movements along with rectal pain and right upper quadrant pain. She denies fever or chills. No change in appetite. She denies change in diet. No blood with her stool. Patient states she is not sure if she may have a hemorrhoid but tried [id number] hemorrhoid pads with no improvement. [facility] Medical History (Updated 10/10/21 @ 07:[address] Juana Christopher MD) Anemia Anxiety Arthritis ASTHMA Chest pain Chronic cough Depression Difficulty balancing Fatigue NECK/BACK PAIN Severe headache Shoulder pain Stomach ulcer Home Medications loratadine 10 mg PO QHS 09/03/18 [History Last Taken Unknown] multivitamin 1 ea PO DAILY 09/03/18 [History Last Taken Unknown] spacer #1 ea 02/14/19 [Rx Last Taken Unknown] propranolol 10 mg PO DAILY 04/24/19 [History Last Taken Unknown] benztropine 0.5 mg PO DAILY 11/08/20 [History Last Taken Unknown] lamotrigine 50 mg PO DAILY 11/08/20 [History Last Taken Unknown] cholecalciferol (vitamin D3) [Vitamin D3] 50 mcg PO DAILY 01/16/21 [History Last Taken Unknown] Lactobacillus rhamnosus GG [Culturelle] 1 cap PO DAILY 01/25/21 [History Last Taken Unknown] cariprazine [Vraylar] 1.5 mg PO DAILY 04/05/21 [History Last Taken Unknown] pantoprazole 40 mg PO DAILY 04/05/21 [History Last Taken Unknown] hydrocortisone-pramoxine [Proctofoam HC] 1 applic MD DAILY PRN #10 g 10/10/21 [Rx Last Taken Unknown] Allergy/AdvReac Type Severity Reaction Status Date / Time influenza virus vaccine, Allergy Other Verified 10/10/21 07:07 specific [influenza virus vacc,specific] iodine Allergy Rash Verified 10/10/21 07:07 Latex, Natural Rubber Allergy Rash Verified 10/10/21 07:07 [place] Allergy Anaphylaxis Verified 10/10/21 07:07 meloxicam Allergy Other Verified 10/10/21 07:07 metronidazole [From Flagyl] Allergy Hives Verified 10/10/21 07:07 montelukast [From Singulair] Allergy Rash Verified 10/10/21 07:07 morphine Allergy Other Verified 10/10/21 07:07 Penicillins [PCN] Allergy Unknown Verified 10/10/21 07:07 clindamycin AdvReac Nausea/Vom/ Verified 10/10/21 07:07 Diarrhea doxycycline AdvReac Nausea Verified 10/10/21 07:07 prednisone AdvReac Other Verified 10/10/21 07:07 ANTIBACTERIAL SOAP Allergy Hives Uncoded 10/10/21 07:07 HAND PRODUCT TRANSFER PUMPER Allergy Hives Uncoded 10/10/21 07:07 SEASONAL ALLERGIES Allergy Other Uncoded 10/10/21 07:07 Family History Brother Hypertension Bipolar affect, depressed Surgical History No pertinent past surgical history Social History Smoking Status: Current every day smoker tobacco type: cigarettes Tobacco: How many years used: 24 second hand exposure: Yes alcohol intake: never ROS ROS ED Constitutional Constitutional ED: Denies chills or fever(s) Eyes Eyes: Denies change in vision ENT ENT ED: Denies sore throat Cardiovascular Cardiovascular: Denies chest pain Respiratory/Chest Respiratory/Chest: Denies cough or dyspnea Gastrointestinal Gastrointestinal: Reports abdominal pain; Denies diarrhea, nausea or vomiting Genitourinary Genitourinary ED: Denies dysuria Musculoskeletal Musculoskeletal: Denies back pain Integumentary Denies rash Neurologic Neurologic: Denies headache(s) or weakness Allergic/Immunologic Allergic/Immunologic ED: Denies urticaria EXAM Physical Exam Const Vital Signs: 10/10/21 07:05 10/10/21 07:12 Temperature 97.2 F L Temperature Source Temporal Pulse Rate 107 H Respiratory Rate 18 Respiratory Effort Normal Non-Labored Respiratory Pattern Normal Blood Pressure 144/104 H Blood Pressure Mean 117 Pulse Ox 96 Oxygen Delivery Method Room Air Positive well nourished and well developed General Appearance ED: well developed HEENT Reports moist mucous membranes Eyes PERRL and EOMs intact bilaterally Neck supple Chest Wall inspection of chest normal and palpation of chest normal Resp normal respiratory effort and clear to auscultation bilaterally Cardio regular rate and regular rhythm GI non-tender Auscultation: hypoactive bowel sounds Palpation: soft Extremity normal to inspection Neuro oriented x3 Sensorium / Orientation: alert Psych mental status grossly normal Skin no rashes or lesions noted MDM MDM MDM Narrative Medical decision making narrative: Abdominal x-ray obtained. Radiography Diagnostic Testing: Clinical Impression(s) from Imaging Studies KUB X-Ray 10/10/21 07:20 IMPRESSION: Normal x-ray examination of the abdomen and pelvis. Electronically Signed: Duncan Navarro MD at 7:41 EST , Treatment and Re-Evaluation Comments:: X-ray per my interpretation reveals small amount of stool noted on the right side of the abdomen. No evidence of bowel obstruction. Rectal examination performed. No fissures or hemorrhoids noted. Patient will be given a prescription for Proctofoam to help with inflammation and pain. She will be given a work note today. Discharge Plan Triage Chief Complaint: Other, Pain/Inj ED Provider: Juana Christopher Dx/Rx/DC Orders Clinical Impression: Pain, rectal Instructions: ED Pain, Acute, Uncertain Cause Prescriptions: New Proctofoam HC 1-1 % foam 1 applic MD DAILY PRN (Reason: rectal pain) Qty: 10 RF: 0 No Action (DME) spacer See Rx Instructions .Route .MEDSUPPLY Qty: 1 RF: 0 multivitamin 1 EACH tablet 1 ea PO DAILY RF: 0 loratadine 10 MG capsule 10 mg PO QHS RF: 0 propranolol 10 MG tablet 10 mg PO DAILY RF: 0 benztropine 0.5 MG tablet 0.5 mg PO DAILY RF: 0 lamotrigine 25 MG tablet 50 mg PO DAILY RF: 0 cholecalciferol (vitamin D3) [Vitamin D3] 50 mcg (2,000 unit) Tablet 50 mcg PO DAILY RF: 0 Culturelle 10 billion cell Capsule 1 cap PO DAILY RF: 0 pantoprazole 40 mg Tablet,Delayed Release (Dr/Ec) 40 mg PO DAILY RF: 0 Vraylar 1.5 mg Capsule 1.5 mg PO DAILY RF: 0 Stand Alone Forms: ED Work / School Excuse Primary Care Provider: Domenic Mejia Referrals: Domenic Mejia MD [Primary Care Provider] - 1 Week if not improving Disposition Disposition: Home, Self Care
--- NOTE | 2021-10-10 07:20 | RAD_ITS ---
STUDY: X-RAY - ABDOMEN/PELVIS REASON FOR EXAM: Female, 40 years old. Abd pain TECHNIQUE: Two AP supine views of the abdomen and pelvis. COMPARISON: None. FINDINGS: Normal visualized lung bases. There is an unremarkable bowel gas pattern. There is no demonstrated free abdominal air. The visualized liver, spleen and kidneys are grossly normal in size and morphology. Normal soft tissue structures. Normal visualized osseous structures. RAD/Abdomen Single View IMPRESSION: Normal x-ray examination of the abdomen and pelvis. Electronically Signed: Duncan Navarro MD at 7:41 EST ,
== END 2021-10-10 08:09 | disposition home or self-care (01) ==
PROVIDERS: Emergency Provider Emergency Medicine; PCP Family Medicine; Visit Provider Emergency Medicine
DX: K62.89 Other specified diseases of anus and rectum (principal); R10.11 Right upper quadrant pain; F17.210 Nicotine dependence, cigarettes, uncomplicated
CPT/HCPCS: 74018; 99282

== ENCOUNTER 2021-12-04 02:09 | Emergency (ER) | payer MEDICAID, SELFPAY ==
[2021-12-04 02:10] VITALS: BP 146/96; PULSE 111; RESP 17; TEMP 36.3; O2SAT 97; BMI 34.4
[2021-12-04] MEDS: proMETHazine 25 MG/ML Syringe IM (02:36)
[2021-12-04] MEDS: 0.9% Normal Saline 1,000 ML 999 ML IV (02:36)
[2021-12-04] MEDS: Ketorolac 30 MG/ML Syringe IV (02:36)
--- NOTE | 2021-12-04 03:19 | EX.ED.DYSGE1 ---
HPI History of Present Illness Chief Complaint: Headache Narrative Narrative: Patient is a 41-year-old female with past medical history of migraine headache. She states that she noticed around 8 PM that she was getting a headache. She states that she took naproxen to try and help with this. She denies any trauma prior to headache beginning and she denies any history of bleeding disorder or blood thinner use. She states that as time progressed so did the headache and she became nauseous and sensitive to light. She states when she has gotten this way in the past she has needed medications in the ER to help control her headache and therefore called EMS to bring her in for evaluation [facility] Medical History (Updated 12/04/21 @ 03:[address] David Webb, DO) Anemia Anxiety Arthritis ASTHMA Chest pain Chronic cough Depression Difficulty balancing Fatigue NECK/BACK PAIN Severe headache Shoulder pain Stomach ulcer Home Medications loratadine 10 mg PO QHS 09/03/18 [History Last Taken Unknown] multivitamin 1 ea PO DAILY 09/03/18 [History Last Taken Unknown] spacer #1 ea 02/14/19 [Rx Last Taken Unknown] propranolol 10 mg PO DAILY 04/24/19 [History Last Taken Unknown] benztropine 0.5 mg PO DAILY 11/08/20 [History Last Taken Unknown] lamotrigine 50 mg PO DAILY 11/08/20 [History Last Taken Unknown] cholecalciferol (vitamin D3) [Vitamin D3] 50 mcg PO DAILY 01/16/21 [History Last Taken Unknown] Lactobacillus rhamnosus GG [Culturelle] 1 cap PO DAILY 01/25/21 [History Last Taken Unknown] cariprazine [Vraylar] 1.5 mg PO DAILY 04/05/21 [History Last Taken Unknown] pantoprazole 40 mg PO DAILY 04/05/21 [History Last Taken Unknown] hydrocortisone-pramoxine [Proctofoam HC] 1 applic [place] DAILY PRN #10 g 10/10/21 [Rx Last Taken Unknown] Allergy/AdvReac Type Severity Reaction Status Date / Time influenza virus vaccine, Allergy Other Verified 12/04/21 02:13 specific [influenza virus vacc,specific] iodine Allergy Rash Verified 12/04/21 02:13 Latex, Natural Rubber Allergy Rash Verified 12/04/21 02:13 [place] Allergy Anaphylaxis Verified 12/04/21 02:13 meloxicam Allergy Other Verified 12/04/21 02:13 metronidazole [From Flagyl] Allergy Hives Verified 12/04/21 02:13 montelukast [From Singulair] Allergy Rash Verified 12/04/21 02:13 morphine Allergy Other Verified 12/04/21 02:13 Penicillins [PCN] Allergy Unknown Verified 12/04/21 02:13 clindamycin AdvReac Nausea/Vom/ Verified 12/04/21 02:13 Diarrhea doxycycline AdvReac Nausea Verified 12/04/21 02:13 prednisone AdvReac Other Verified 12/04/21 02:13 ANTIBACTERIAL SOAP Allergy Hives Uncoded 12/04/21 02:13 HAND ADVANCED CLINICAL SPECIALIST Allergy Hives Uncoded 12/04/21 02:13 SEASONAL ALLERGIES Allergy Other Uncoded 12/04/21 02:13 Family History Brother Hypertension Bipolar affect, depressed Surgical History No pertinent past surgical history Social History Smoking Status: Current every day smoker tobacco type: cigarettes Tobacco: How many years used: 24 second hand exposure: Yes alcohol intake: never ROS ROS ED Constitutional Constitutional ED: Denies chills or fever(s) Eyes Eyes: Reports other Details: Positive photophobia ENT ENT ED: Denies sore throat Cardiovascular Cardiovascular: Denies chest pain Respiratory/Chest Respiratory/Chest: Denies cough or dyspnea Gastrointestinal Gastrointestinal: Reports nausea; Denies abdominal pain, diarrhea or vomiting Genitourinary Genitourinary ED: Denies dysuria Musculoskeletal Musculoskeletal: Denies myalgias or neck pain Integumentary Denies rash Neurologic Neurologic: Reports headache(s); Denies paresthesias or weakness Hematologic/Lymphatic Hematologic/Lymphatic: Denies easy bleeding or easy bruising EXAM Physical Exam Const Vital Signs: 12/04/21 02:10 Temperature 97.4 F L Temperature Source Oral Pulse Rate 111 H Respiratory Rate 17 Blood Pressure 146/96 H Blood Pressure Mean 112 Pulse Ox 97 Oxygen Delivery Method Room Air Positive well nourished and well developed General Appearance ED: well developed HEENT Reports moist mucous membranes Eyes PERRL and EOMs intact bilaterally Neck supple Neck Narrative: No meningeal signs Resp normal respiratory effort and clear to auscultation bilaterally Cardio regular rate and regular rhythm GI normal to inspection, nondistended, normoactive bowel sounds, non-tender, non-distended and no masses GI Narrative: No voluntary guarding or rigidity no pulsatile mass Auscultation: normoactive bowel sounds Palpation: soft Extremity normal to inspection Neuro oriented x3 and CN's II-XII intact bilaterally Neuro Narrative: Cranial nerves II through XII are grossly intact there are no focal neurologic deficits. No pronator drift no dysmetria no truncal ataxia. NIH stroke scale score of 0 Sensorium / Orientation: alert Motor Exam: strength 5/5 throughout Psych Psych Narrative: Patient has a flat affect Skin no rashes or lesions noted MDM MDM MDM Narrative Medical decision making narrative: Patient presented to the ER with a normal neurologic exam and no report or signs of trauma and no obvious infectious process. Moreover she states she has a history of headache and this feels similar nature. Therefore at this time I felt no need for imaging or laboratory studies. Patient states that Toradol and Phenergan have helped her headaches in the past. Therefore she was given 30 of IV Toradol and 25 IM Phenergan as well as a liter of fluid. On reevaluation she reported resolution of her symptoms and her neuro exam remained normal. Therefore at this time I feel patient is safe for discharge and can follow-up with her family doctor on an outpatient basis as needed Discharge Plan Triage Chief Complaint: Headache ED Provider: David Webb Dx/Rx/DC Orders Clinical Impression: Cephalgia, Bipolar 1 disorder Instructions: Understanding Headache Pain, ED, Migraine (Classical) Prescriptions: No Action (DME) spacer See Rx Instructions .Route .MEDSUPPLY Qty: 1 RF: 0 multivitamin 1 EACH tablet 1 ea PO DAILY RF: 0 loratadine 10 MG capsule 10 mg PO QHS RF: 0 propranolol 10 MG tablet 10 mg PO DAILY RF: 0 benztropine 0.5 MG tablet 0.5 mg PO DAILY RF: 0 lamotrigine 25 MG tablet 50 mg PO DAILY RF: 0 cholecalciferol (vitamin D3) [Vitamin D3] 50 mcg (2,000 unit) Tablet 50 mcg PO DAILY RF: 0 Culturelle 10 billion cell Capsule 1 cap PO DAILY RF: 0 pantoprazole 40 mg Tablet,Delayed Release (Dr/Ec) 40 mg PO DAILY RF: 0 Vraylar 1.5 mg Capsule 1.5 mg PO DAILY RF: 0 Proctofoam HC 1-1 % foam 1 applic [place] DAILY PRN (Reason: rectal pain) Qty: 10 RF: 0 Primary Care Provider: Domenic Mejia Referrals: Domenic Mejia MD [Primary Care Provider] - Disposition Disposition: Home, Self Care
== END 2021-12-04 05:08 | disposition home or self-care (01) ==
PROVIDERS: Emergency Provider Emergency Medicine; PCP Family Medicine; Visit Provider Emergency Medicine
DX: R51.9 Headache, unspecified (principal); F31.9 Bipolar disorder, unspecified; J45.909 Unspecified asthma, uncomplicated; F41.9 Anxiety disorder, unspecified; M19.90 Unspecified osteoarthritis, unspecified site; F17.210 Nicotine dependence, cigarettes, uncomplicated; Z79.899 Other long term (current) drug therapy
CPT/HCPCS: 96361; 96374; 96375; 99285; J7030; A4216

== ENCOUNTER 2022-01-21 09:12 | Emergency (ER) | payer MEDICAID, SELFPAY ==
[2022-01-21 09:13] VITALS: BP 154/103; PULSE 118; RESP 16; TEMP 36.1; O2SAT 97; BMI 36.3
--- NOTE | 2022-01-21 09:26 | EX.ED.DYSGE1 ---
HPI <TYLER Nielsen - Last Filed: 01/21/22 10:04> History of Present Illness Chief Complaint: Headache Narrative Narrative: 41-year-old female with history of migraine headaches, neck pain, chronic pain issues presents to the emergency department with 1 day of headache as well as 1 episode of nausea and vomiting. Patient states that she has been to the ER for this before, patient states that she really would like a shot of Toradol she says this helps her headaches. Patient does not have any nausea medicine at home. Patient states that she vomited her breakfast up this morning. Denies any abdominal pain, fever chills. PFSH <TYLER Nielsen - Last Filed: 01/21/22 10:04> [facility] Medical History (Updated 01/21/22 @ 10:02 by TYLER Nielsen) Anemia Anxiety Arthritis ASTHMA Chest pain Chronic cough Depression Difficulty balancing Fatigue NECK/BACK PAIN Severe headache Shoulder pain Stomach ulcer Home Medications loratadine 10 mg PO QHS 09/03/18 [History Last Taken Unknown] multivitamin 1 ea PO DAILY 09/03/18 [History Last Taken Unknown] spacer #1 ea 02/14/19 [Rx Last Taken Unknown] propranolol 10 mg PO DAILY 04/24/19 [History Last Taken Unknown] benztropine 0.5 mg PO DAILY 11/08/20 [History Last Taken Unknown] lamotrigine 50 mg PO DAILY 11/08/20 [History Last Taken Unknown] cholecalciferol (vitamin D3) [Vitamin D3] 50 mcg PO DAILY 01/16/21 [History Last Taken Unknown] Lactobacillus rhamnosus GG [Culturelle] 1 cap PO DAILY 01/25/21 [History Last Taken Unknown] cariprazine [Vraylar] 1.5 mg PO DAILY 04/05/21 [History Last Taken Unknown] pantoprazole 40 mg PO DAILY 04/05/21 [History Last Taken Unknown] hydrocortisone-pramoxine [Proctofoam HC] 1 applic [place] DAILY PRN #10 g 10/10/21 [Rx Last Taken Unknown] ondansetron 4 mg PO Q8H PRN #10 tab 01/21/22 [Rx Last Taken Unknown] Allergy/AdvReac Type Severity Reaction Status Date / Time influenza virus vaccine, Allergy Other Verified 01/21/22 09:14 specific [influenza virus vacc,specific] iodine Allergy Rash Verified 01/21/22 09:14 Latex, Natural Rubber Allergy Rash Verified 01/21/22 09:14 [place] Allergy Anaphylaxis Verified 01/21/22 09:14 meloxicam Allergy Other Verified 01/21/22 09:14 metronidazole [From Flagyl] Allergy Hives Verified 01/21/22 09:14 montelukast [From Singulair] Allergy Rash Verified 01/21/22 09:14 morphine Allergy Other Verified 01/21/22 09:14 Penicillins [PCN] Allergy Unknown Verified 01/21/22 09:14 clindamycin AdvReac Nausea/Vom/ Verified 01/21/22 09:14 Diarrhea doxycycline AdvReac Nausea Verified 01/21/22 09:14 prednisone AdvReac Other Verified 01/21/22 09:14 ANTIBACTERIAL SOAP Allergy Hives Uncoded 01/21/22 09:14 HAND MELANGEUR OPERATOR Allergy Hives Uncoded 01/21/22 09:14 SEASONAL ALLERGIES Allergy Other Uncoded 01/21/22 09:14 Family History Brother Hypertension Bipolar affect, depressed Surgical History No pertinent past surgical history Social History Smoking Status: Current every day smoker tobacco type: cigarettes Tobacco: How many years used: 24 second hand exposure: Yes alcohol intake: never ROS <TYLER Nielsen - Last Filed: 01/21/22 10:04> ROS ED ROS Narrative Constitutional: Negative for fever, chills, weight loss, weakness Eyes: Negative for vision loss, vision change, double vision ENT: Negative for any sore throat, ear pain, congestion Cardiovascular: Negative for any chest pain, tightness, palpitations, racing heartbeat Respiratory: Negative for any cough, sputum production, hemoptysis, shortness of breath, shortness of breath on exertion, orthopnea Gastrointestinal: Negative for any abdominal pain, nausea, vomiting, diarrhea, constipation, blood in stool, blood in vomit : Negative for any urinary frequency, incontinence, dysuria, retention, blood in urine Muscle skeletal: Negative for any muscle joint pain, stiffness, myalgias, arthralgias, back pain. Positive for neck pain Neurological: Negative for any dizziness, syncope, numbness or tingling. Positive for headache, worsening in the frontal aspect. Skin: Negative for any rashes, lumps, itching, abrasions, lacerations Psychiatric: Negative for any depression, anxiety, stress, suicidal ideation, homicidal ideation Hematologic: Negative for any easy bruising, excessive bruising, easy bleeding Allergies: Negative for any eczema, hives, rash EXAM <TYLER Nielsen - Last Filed: 01/21/22 10:04> Physical Exam Narrative Exam Narrative: Vital signs reviewed. HEET: Head normocephalic atraumatic, TMs clear bilaterally. Posterior pharynx is clear, moist mucous membranes. Nares clear bilaterally. Pupils are equal round react to light. Neck: Supple with no lymphadenopathy or tenderness. No signs of meningismus, negative jolt sign. Cardiac: Regular rate and rhythm no murmurs gallops or rubs, equal peripheral pulses bilaterally. Respiratory: Lungs clear to auscultation bilaterally. No chest tenderness. Abdomen: Soft, nontender, nondistended. No abdominal bruit or pulsatile masses. No hepatosplenomegaly Extremities: No peripheral edema, no signs of gross trauma or deformity. Active full range of motion of all extremities. Neuro: Cranial nerves II through XII intact, no focal neurological deficits. Negative for any neurological deficits, NIH 0 Skin: Clean dry and intact with no rash, purpura, petechiae, vesicles or pustules. Backslash flank: No CVA tenderness, no midline spinal tenderness, no deformity. Psych: Normal mood and affect. No SI, HI or acute psychosis. Const Vital Signs: 01/21/22 09:13 Temperature 96.9 F L Temperature Source Temporal Pulse Rate 118 H Respiratory Rate 16 Blood Pressure 154/103 H Blood Pressure Mean 120 Pulse Ox 97 Oxygen Delivery Method Room Air Positive well nourished and well developed General Appearance ED: well developed <Dr. Jorden Wu DO - Last Filed: 01/22/22 07:18> Physical Exam Const Vital Signs: 01/21/22 09:13 Temperature 96.9 F L Temperature Source Temporal Pulse Rate 118 H Respiratory Rate 16 Blood Pressure 154/103 H Blood Pressure Mean 120 Pulse Ox 97 Oxygen Delivery Method Room Air MDM <TYLER Nielsen - Last Filed: 01/21/22 10:04> [facility] Narrative Medical decision making narrative: Patient appears well, patient appears nontoxic, vital signs are stable. Patient did present to the emergency department with a large [employer] coffee. Patient's physical examination was negative for any CVA/TIA. I believe the patient is suffering from a tension headache secondary to her arthritis in her neck. Patient has no meningeal signs, no red flag signs. Patient did have relief of discomfort after IM Toradol, by mouth Zofran. Patient will continue to use Zofran and will follow up with her PCP. <Dr. Jorden Wu, DO - Last Filed: 01/22/22 07:18> [facility] Narrative Medical decision making narrative: This patient was seen with a PA/SMALL BRAKE FORM OPERATOR Individually assessed they patient including history and physical. I have reviewed everything on the chart that is available and agree with the documentation provided by the PA/SMALL BRAKE FORM OPERATOR including discussion about the assessment, treatment plan, discussion, and return precautions. This is a 41-year-old female presenting with headache which she has had in the past. She describes this as a tension type headache and attribute this to her arthritis history in her neck. She has had this before and has been similar. She has had no trauma. No visual complaints. Patient able to ambulate with stable gait. No paresthesias. She is eating and drinking normally. She requests Toradol and Zofran which was provided. She feels improved after treatment. I do not believe she needs any further treatment or imaging. She can return precautions. Impression: 1. Headache?tension type 2. Neck pain Discharge Plan Triage Chief Complaint: Headache ED Midlevel Provider: Duncan Alvarez ED Provider: Jorden Wu Dx/Rx/DC Orders Clinical Impression: Headache Instructions: ED, Migraine (Classical) Prescriptions: New ondansetron 4 mg tablet,disintegrating 4 mg PO Q8H PRN (Reason: nausea and vomiting) Qty: 10 RF: 0 No Action (DME) spacer See Rx Instructions .Route .MEDSUPPLY Qty: 1 RF: 0 multivitamin 1 EACH tablet 1 ea PO DAILY RF: 0 loratadine 10 MG capsule 10 mg PO QHS RF: 0 propranolol 10 MG tablet 10 mg PO DAILY RF: 0 benztropine 0.5 MG tablet 0.5 mg PO DAILY RF: 0 lamotrigine 25 MG tablet 50 mg PO DAILY RF: 0 cholecalciferol (vitamin D3) [Vitamin D3] 50 mcg (2,000 unit) Tablet 50 mcg PO DAILY RF: 0 Culturelle 10 billion cell Capsule 1 cap PO DAILY RF: 0 pantoprazole 40 mg Tablet,Delayed Release (Dr/Ec) 40 mg PO DAILY RF: 0 Vraylar 1.5 mg Capsule 1.5 mg PO DAILY RF: 0 Proctofoam HC 1-1 % foam 1 applic [place] DAILY PRN (Reason: rectal pain) Qty: 10 RF: 0 Primary Care Provider: Domenic Mejia Referrals: Domenic Mejia MD [Primary Care Provider] - Activity Restrictions/Additional Instructions: Please follow-up with your PCP regarding your chronic headaches Print Language: Azeri Disposition Disposition: Home, Self Care Discharge Date/Time: 01/21/22 10:06
[2022-01-21] MEDS: Ketorolac 15 MG/ML Vial IM (09:38)
[2022-01-21] MEDS: Ondansetron ODT 4 MG Tablet 8 MG PO (09:39)
== END 2022-01-21 10:06 | disposition home or self-care (01) ==
PROVIDERS: Emergency Provider Student in an Organized Health Care Education/Training Program; PCP Family Medicine; Visit Provider Student in an Organized Health Care Education/Training Program
DX: R51.9 Headache, unspecified (principal); R11.2 Nausea with vomiting, unspecified; F17.210 Nicotine dependence, cigarettes, uncomplicated; M47.812 Spondylosis without myelopathy or radiculopathy, cervical region; F32.A Depression, unspecified; F41.9 Anxiety disorder, unspecified
CPT/HCPCS: 96372; 99283

== ENCOUNTER 2022-02-04 21:20 | Emergency (ER) | payer MEDICAID, SELFPAY ==
[2022-02-04 21:21] VITALS: BP 147/90; PULSE 106; RESP 18; TEMP 36.1; O2SAT 97; BMI 37.5
--- NOTE | 2022-02-04 22:06 | EDS_ITS ---
HPI History of Present Illness Chief Complaint: Edema Detail of Chief Complaint: Swelling in legs that was noticed today Informant: patient Narrative Narrative: Patient presents to the emergency department with concern about swelling in her legs. Patient states that she saw the chiropractor today and he noted that her legs look swollen so she became concerned. She called urgent care and the nurse line and was advised to be seen in the emergency department for concern of DVT. Patient has no history of PE or DVT. Patient is on oral contraceptive and she is a smoker. She denies chest pain or shortness of breath. Patient denies any trauma to her legs. Prior similar symptoms: No [facility] Medical History (Updated 02/04/22 @ 23:[address] Ganga Chambers, ) Anemia Anxiety Arthritis ASTHMA Chest pain Chronic cough Depression Difficulty balancing Fatigue NECK/BACK PAIN Severe headache Shoulder pain Stomach ulcer Home Medications loratadine 10 mg PO QHS 09/03/18 [History Last Taken Unknown] multivitamin 1 ea PO DAILY 09/03/18 [History Last Taken Unknown] spacer #1 ea 02/14/19 [Rx Last Taken Unknown] propranolol 10 mg PO DAILY 04/24/19 [History Last Taken Unknown] benztropine 0.5 mg PO DAILY 11/08/20 [History Last Taken Unknown] lamotrigine 50 mg PO DAILY 11/08/20 [History Last Taken Unknown] cholecalciferol (vitamin D3) [Vitamin D3] 50 mcg PO DAILY 01/16/21 [History Last Taken Unknown] Lactobacillus rhamnosus GG [Culturelle] 1 cap PO DAILY 01/25/21 [History Last Taken Unknown] cariprazine [Vraylar] 1.5 mg PO DAILY 04/05/21 [History Last Taken Unknown] pantoprazole 40 mg PO DAILY 04/05/21 [History Last Taken Unknown] hydrocortisone-pramoxine [Proctofoam HC] 1 applic [place] DAILY PRN #10 g 10/10/21 [Rx Last Taken Unknown] ondansetron 4 mg PO Q8H PRN #10 tab 01/21/22 [Rx Last Taken Unknown] Allergy/AdvReac Type Severity Reaction Status Date / Time influenza virus vaccine, Allergy Other Verified 01/21/22 09:14 specific [influenza virus vacc,specific] iodine Allergy Rash Verified 01/21/22 09:14 Latex, Natural Rubber Allergy Rash Verified 01/21/22 09:14 [place] Allergy Anaphylaxis Verified 01/21/22 09:14 meloxicam Allergy Other Verified 01/21/22 09:14 metronidazole [From Flagyl] Allergy Hives Verified 01/21/22 09:14 montelukast [From Singulair] Allergy Rash Verified 01/21/22 09:14 morphine Allergy Other Verified 01/21/22 09:14 Penicillins [PCN] Allergy Unknown Verified 01/21/22 09:14 clindamycin AdvReac Nausea/Vom/ Verified 01/21/22 09:14 Diarrhea doxycycline AdvReac Nausea Verified 01/21/22 09:14 prednisone AdvReac Other Verified 01/21/22 09:14 ANTIBACTERIAL SOAP Allergy Hives Uncoded 01/21/22 09:14 HAND [employer] SAL[employer]ERSON Allergy Hives Uncoded 01/21/22 09:14 SEASONAL ALLERGIES Allergy Other Uncoded 01/21/22 09:14 Family History Brother Hypertension Bipolar affect, depressed Surgical History No pertinent past surgical history Social History Smoking Status: Current every day smoker tobacco type: cigarettes Tobacco: How many years used: 24 second hand exposure: Yes alcohol intake: never ROS ROS ED Constitutional Constitutional ED: Reports systems reviewed and no addt'l complaints, except as documented; Denies body ache(s), change in weight or chills Eyes Eyes: Denies acute decrease in peripheral vision, change in vision, double vision or loss of vision ENT ENT ED: Reports none; Denies ear pain, lip swelling, loss taste/smell, neck pain, otalgia or sore throat Cardiovascular Cardiovascular: Reports none; Denies abdominal pain, chest pain with activity, leg edema, lightheadedness, palpitations, rapid heart rate or syncope Respiratory/Chest Respiratory/Chest: Reports none; Denies change in mental status, dry cough, dyspnea, hemoptysis, shortness of breath at rest or shortness of breath with exertion Gastrointestinal Gastrointestinal: Reports none; Denies abdominal pain, change in stool character, diarrhea, hematemesis, hematochezia, melena, rectal bleeding or vomiting Genitourinary Genitourinary ED: Reports none; Denies abdominal discomfort, anuria, dysuria, genital pain or polyuria Musculoskeletal Musculoskeletal: Reports none and other Details: Bilateral leg swelling, pain right calf ; Denies arthralgias, back pain, difficulty walking, extremity pain, muscle weakness or myalgias Integumentary Reports none; Denies abscess or rash Neurologic Neurologic: Reports none; Denies abnormal gait, confusion, focal weakness, frequent falls, headache(s), loss of vision, numbness, paresthesias, radicular pain, vertigo or weakness Psychiatric Psychiatric: Reports systems reviewed and no addt'l complaints, except as documented and none; Denies behavioral changes, confusion, difficulty concen trating, hallucinations, suicidal ideation, tactile hallucinations or visual hallucinations Endocrine Endocrinology: Denies none, cold intolerance, excessive sweating, fatigue or heat intolerance Hematologic/Lymphatic Hematologic/Lymphatic: Reports none; Denies anemia, easy bleeding or easy bruising Allergic/Immunologic Allergic/Immunologic ED: Denies as per HPI, none, lip swelling, mouth swelling, throat swelling, tongue swelling or hives EXAM Physical Exam Const Vital Signs: 02/04/22 21:21 02/04/22 21:33 Temperature 97.0 F L Temperature Source Temporal Pulse Rate 106 H Respiratory Rate 18 Respiratory Pattern Normal Blood Pressure 147/90 H Blood Pressure Mean 109 Pulse Ox 97 Oxygen Delivery Method Room Air Positive well nourished and well developed General Appearance ED: well developed and NAD HEENT Reports TM's clear and moist mucous membranes normocephalic and atraumatic; Negative for trauma or tenderness Tympanic Membrane ED: Yes TM's clear Eyes PERRL and EOMs intact bilaterally General Eye ED: Negative for pale conjunctiva or scleral icterus Neck no lymphadenopathy, supple and no JVD General: Negative for tenderness Chest Wall inspection of chest normal and palpation of chest normal Chest: Negative for tenderness Resp normal respiratory effort and clear to auscultation bilaterally Effort and Inspection: Negative for respiratory distress or pain with movement Auscultation: Negative for rhonchi, wheezes or diminished lung sounds Cardio regular rate, regular rhythm, S1 normal heart sound, S2 normal heart sound and no murmurs Peripheral Pulses: pulses 2+ throughout GI normal to inspection, nondistended, normoactive bowel sounds, soft to palpation, non-tender, non-distended and no masses Back/Spine no CVA tenderness and no thoracic nor lumbar tenderness Extremity Extremity Narrative: Patient has tenderness palpation over the right calf. No ropes or cords palpated. She has normal pulses bilaterally. Neurovascularly intact. No evidence of trauma. There is no appreciable edema noted. No cellulitic changes. General Extremety ED: Negative for edema General Extremity: Negative for edema Neuro oriented x3, CN's II-XII intact bilaterally, no sensory deficits noted and gait normal Sensorium / Orientation: awake, alert, oriented to person, oriented to place and oriented to time Motor Exam: strength 5/5 throughout and strength abnormal Psych mental status grossly normal Skin no rashes or lesions noted and no wounds MDM MDM MDM Narrative Medical decision making narrative: Patient had basic labs that were normal. Kidney function was normal. Patient had venous Dopplers of both lower extremities that were negative for DVT. This point suspect likely right calf strain. Patient advised to follow-up with primary care physician in 5 to 7 days. Lab Data Attestation: I reviewed the patient's lab results. Labs: Laboratory Results - last 24 hr 02/04/22 02/04/22 22:25 22:25 WBC 11.6 H RBC 5.44 H Hgb 15.7 H Hct 46.8 MCV 86.0 MCH 28.9 MCHC 33.5 RDW Std Deviation 39.3 RDW Coeff of Lev 12.7 Plt Count 224 MPV 10.5 Immature Gran % (Auto) 0.300 Neut % (Auto) 53.7 Lymph % (Auto) 34.0 [place] % (Auto) 7.4 Eos % (Auto) 4.1 Baso % (Auto) 0.5 Absolute Neuts (auto) 6.2 Absolute Lymphs (auto) 3.95 Nucleated RBC % 0 Sodium 140 Potassium 3.8 Chloride 107 Carbon Dioxide 26.0 Anion Gap 7 BUN 14 Creatinine 0.90 Estim Creat Clear Calc 78.38 Est GFR (MDRD) Af Amer 88 Est GFR (MDRD) Non-Af 73 BUN/Creatinine Ratio 15.6 Glucose 97 Calcium 9.5 Discharge Plan Triage Chief Complaint: Edema ED Provider: Ganga Chambers Dx/Rx/DC Orders Clinical Impression: Leg edema, Strain of right calf muscle Instructions: ED Peripheral Edema, Bilateral, ED Muscle Strain, Extremity Prescriptions: No Action (DME) spacer See Rx Instructions .Route .MEDSUPPLY Qty: 1 RF: 0 multivitamin 1 EACH tablet 1 ea PO DAILY RF: 0 loratadine 10 MG capsule 10 mg PO QHS RF: 0 propranolol 10 MG tablet 10 mg PO DAILY RF: 0 benztropine 0.5 MG tablet 0.5 mg PO DAILY RF: 0 lamotrigine 25 MG tablet 50 mg PO DAILY RF: 0 cholecalciferol (vitamin D3) [Vitamin D3] 50 mcg (2,000 unit) Tablet 50 mcg PO DAILY RF: 0 Culturelle 10 billion cell Capsule 1 cap PO DAILY RF: 0 pantoprazole 40 mg Tablet,Delayed Release (Dr/Ec) 40 mg PO DAILY RF: 0 Vraylar 1.5 mg Capsule 1.5 mg PO DAILY RF: 0 Proctofoam HC 1-1 % foam 1 applic WA DAILY PRN (Reason: rectal pain) Qty: 10 RF: 0 ondansetron 4 mg tablet,disintegrating 4 mg PO Q8H PRN (Reason: nausea and vomiting) Qty: 10 RF: 0 Primary Care Provider: Domenic Mejia Referrals: Domenic Mejia MD [Primary Care Provider] - 5-7 Days Disposition Disposition: Home, Self Care
--- NOTE | 2022-02-04 22:07 | US_ITS ---
STUDY: VENOUS DOPPLER ULTRASOUND - BILATERAL LOWER EXTREMITIES REASON FOR EXAM: Female, 41 years old. BILATRAL SWELLING, PER PT - TOLD BY DR HER LEGS LOOK SWOLLEN TECHNIQUE: Ultrasound evaluation of the deep vein system to include babin-scale imaging and compression was performed. Babin-scale imaging and Doppler sonographic evaluation, including duplex spectral analysis and qualitative color flow sonography, was performed. COMPARISON: None. FINDINGS: RIGHT LEG Common Femoral Vein: Normal compression, spontaneity and augmentation. Normal color Doppler. Common Femoral Vein/Greater Saphenous Junction: Normal compression. Deep Femoral Vein: Not visualized. Femoral Proximal: Normal compression. Femoral Middle: Normal compression, spontaneity and augmentation. Normal color Doppler. Femoral Distal: Normal compression. Popliteal Vein: Normal compression, spontaneity and augmentation. Normal color Doppler. Posterior Tibial Vein: Normal compression. Peroneal Vein: Normal compression. LEFT LEG Common Femoral Vein: Normal compression, spontaneity and augmentation. Normal color Doppler. Common Femoral Vein/Greater Saphenous Junction: Normal compression. Deep Femoral Vein: Not visualized. Femoral Proximal: Normal compression. Femoral Middle: Normal compression, spontaneity and augmentation. Normal color Doppler. Femoral Distal: Normal compression. Popliteal Vein: Normal compression, spontaneity and augmentation. Normal color Doppler. Posterior Tibial Vein: Normal compression. Peroneal Vein: Normal compression. No popliteal cyst is seen. US/Venous Duplex Imag/Abhishek Extrem IMPRESSION: Negative for DVT. Electronically Signed: Jose Buckner MD at 23:55 EDT ,
[2022-02-04 22:41] LABS: Absolute Lymphocyte Count 3.95 X10^3/uL (0.83-4.51); Absolute Neutrophil Count 6.2 X10^3/uL (2.0-7.7); Basophil# 0.06 X10^3/uL; Basophil% 0.5 % (0-1); Eosinophil# 0.48 X10^3/uL; Eosinophils% 4.1 % (0-5); Hematocrit 46.8 % (37-47); Hemoglobin 15.7 g/dL (12.0-15.0); Lymphocyte # 3.95 X10^3/ul (0.83-4.51); Mean Corp Hgb Conc 33.5 g/dL (32-36); Mean Corpuscular Hgb 28.9 pg (27.0-32.0); Mean Platelet Vol. 10.5 fl (6.2-12.0); Monocyte# 0.86 X10^3/uL; Monocyte% 7.4 % (0-10); NRBC Flagged by Analyzer 0 % (0-5); Neutrophil # 6.24 X10^3/uL (2.7-7.7); Neutrophil % 53.7 % (47-70); Platelet Count 224 K/mm3 (150-450); RBC Distribution Width CV 12.7 % (11.6-14.6); RBC Distribution Width SD 39.3 fl (35.1-43.9); Red Blood Count 5.44 M/mm3 (4.2-5.4); White Blood Count 11.6 K/mm3 (4.4-11.0)
[2022-02-04 22:56] LABS: Anion Gap 7 (5-15); BUN 14 mg/dL (7-18); BUN/Creat Ratio 15.6 RATIO (10-20); Calcium,Total 9.5 mg/dL (8.5-10.1); Chloride 107 mmol/L (98-107); EST Glomerular Filtration Rate 73 mL/min (>60); Est Glom Filt Rate - Afr Amer 88 mL/min (>60); Estimated Creatinine Clearance 78.38 ml/min; Glucose 97 mg/dL (74-106); Potassium 3.8 mmol/L (3.5-5.1); Sodium Level 140 mmol/L (136-145)
[2022-02-04 23:09] VITALS: BP 146/88; PULSE 95; RESP 18; O2SAT 100
== END 2022-02-04 23:10 | disposition home or self-care (01) ==
PROVIDERS: Emergency Provider Emergency Medicine; PCP Family Medicine; Visit Provider Emergency Medicine
DX: S86.111A Strain of other muscle(s) and tendon(s) of posterior muscle group at lower leg level, right leg, initial encounter (principal); F17.210 Nicotine dependence, cigarettes, uncomplicated; R60.0 Localized edema; Z79.3 Long term (current) use of hormonal contraceptives; J45.909 Unspecified asthma, uncomplicated; M19.90 Unspecified osteoarthritis, unspecified site; F41.9 Anxiety disorder, unspecified; F32.A Depression, unspecified; Z79.899 Other long term (current) drug therapy; X58.XXXA Exposure to other specified factors, initial encounter; Y93.9 Activity, unspecified; Y99.9 Unspecified external cause status; Y92.9 Unspecified place or not applicable
CPT/HCPCS: 80048; 85025; 93970; 99283; A4216

== ENCOUNTER 2022-02-17 17:55 | Emergency (ER) | payer MEDICAID, SELFPAY ==
[2022-02-17 17:56] VITALS: BP 133/95; PULSE 100; RESP 18; TEMP 36.6; O2SAT 98; BMI 37.5
[2022-02-17 19:34] LABS: Anion Gap 7 (5-15); BUN 11 mg/dL (7-18); BUN/Creat Ratio 12.5 RATIO (10-20); Calcium,Total 9.7 mg/dL (8.5-10.1); Chloride 108 mmol/L (98-107); Creatinine, Serum 0.88 mg/dL (0.55-1.02); EST Glomerular Filtration Rate 74 mL/min (>60); Est Glom Filt Rate - Afr Amer 90 mL/min (>60); Estimated Creatinine Clearance 80.16 ml/min; Glucose 85 mg/dL (74-106); Potassium 3.9 mmol/L (3.5-5.1); Sodium Level 141 mmol/L (136-145)
[2022-02-17 19:36] LABS: Internal QC Validated? YES +Cl - CLEAR BKGD; Pregnancy, Serum, hCG Quali. NEGATIVE Negative
[2022-02-17 19:42] LABS: Absolute Lymphocyte Count 3.88 X10^3/uL (0.83-4.51); Absolute Neutrophil Count 6.7 X10^3/uL (2.0-7.7); Basophil# 0.05 X10^3/uL; Basophil% 0.4 % (0-1); Eosinophil# 0.28 X10^3/uL; Eosinophils% 2.4 % (0-5); Hematocrit 48.4 % (37-47); Hemoglobin 16.4 g/dL (12.0-15.0); Lymphocyte # 3.88 X10^3/ul (0.83-4.51); Lymphocyte % 33.1 % (19-41); Mean Corp Hgb Conc 33.9 g/dL (32-36); Mean Corpuscular Hgb 29.1 pg (27.0-32.0); Mean Platelet Vol. 10.9 fl (6.2-12.0); Monocyte# 0.75 X10^3/uL; Monocyte% 6.4 % (0-10); NRBC Flagged by Analyzer 0 % (0-5); Neutrophil # 6.72 X10^3/uL (2.7-7.7); Neutrophil % 57.4 % (47-70); Platelet Count 262 K/mm3 (150-450); RBC Distribution Width CV 12.5 % (11.6-14.6); RBC Distribution Width SD 39.4 fl (35.1-43.9); Red Blood Count 5.63 M/mm3 (4.2-5.4); White Blood Count 11.7 K/mm3 (4.4-11.0)
[2022-02-17 20:01] LABS: Color, Urine Yellow (Yellow); Glucose, Dipstick Normal (Normal); Ketone-Dipstick Negative (Negative); Leukocyte Esterase-Dipstick Negative /ul (Negative); Nitrite-Dipstick Negative (Negative); Occult Blood-Urine Negative /ul (Negative); Protein-Dipstick Negative (Negative); Urine Bilirubin Dipstick Negative (Negative); Urine Clarity Clear (Clear); Urine Urobilinogen Normal (Normal)
--- NOTE | 2022-02-17 20:04 | ED.RN ---
pt is tired of waiting and lwbs
[2022-02-17 20:26] LABS: Bacteria 1+ /hpf (None Seen); Mucous, Urine 1+ /hpf (<or=2+); Red Blood Cells-Urine 0-5 SEEN /hpf (0-5); Squamous Epithelial Cells - UA 0-5 SEEN /hpf (5-10); White Blood Cells 0-5 SEEN /hpf (0-5)
== END 2022-02-17 20:03 | disposition left against medical advice (07) ==
LOC: ED 20:05
PROVIDERS: PCP Family Medicine
DX: R19.7 Diarrhea, unspecified (principal)
CPT/HCPCS: 80048; 81001; 84703; 85025; A4216

== ENCOUNTER 2022-03-10 21:16 | Emergency (ER) | payer MEDICAID, SELFPAY ==
[2022-03-10 21:18] VITALS: BP 140/100; PULSE 115; RESP 15; TEMP 36.3; O2SAT 96; BMI 36.9
--- NOTE | 2022-03-10 22:08 | EDS_ITS ---
HPI HPI - Psych History of Present Illness Chief Complaint: Anxiety Informant: patient Narrative Narrative: Patient states she is depressed, anxious, and paranoid. She states none of this is new or different today, but she had a friend tell her that she should be checked out at the hospital. She states she went to crisis today before they closed and was seen there, she got to the crisis counselor over the phone but states they were not a lot of help, and states she feels she is having trouble being safe although she is not suicidal or homicidal or had any injuries. She states she has trouble with daily routine at home in her apartment. She cites hygiene being an issue, taking her medications on time, and states that she occasionally has minor pains that she is very sensitive to and bother her. She has no pain right now but noticed that earlier when she was bearing down to urinate she had some discomfort in her upper abdomen. She has had no nausea, vomiting, diarrhea, blood in her stool, other physical symptoms. She states she has been paranoid. She denies any visual auditory hallucinations, but she has a brother who she cites as a drug addict and she states that she made the unfortunate decision to give him a alvarez to her apartment and she cannot afford to change the locks nor does she know how to. Therefore when asked how she is paranoid she states things like she is worried about stepping on needles on her carpet. [facility] Medical History (Updated 03/11/22 @ 01:[address] Derrick Gallegos MD) Anemia Anxiety Arthritis ASTHMA Chest pain Chronic cough Depression Difficulty balancing Fatigue NECK/BACK PAIN Severe headache Shoulder pain Stomach ulcer Home Medications loratadine 10 mg capsule 10 mg PO QHS 09/03/18 [History Last Taken Unknown] multivitamin 1 ea PO DAILY 09/03/18 [History Last Taken Unknown] spacer #1 ea 02/14/19 [Rx Last Taken Unknown] propranolol 10 mg tablet 10 mg PO DAILY 04/24/19 [History Last Taken Unknown] benztropine 0.5 mg tablet 0.5 mg PO DAILY 11/08/20 [History Last Taken Unknown] lamotrigine 25 mg tablet 50 mg PO DAILY 11/08/20 [History Last Taken Unknown] cholecalciferol (vitamin D3) 50 mcg (2,000 unit) tablet (Vitamin D3) 50 mcg PO DAILY 01/16/21 [History Last Taken Unknown] Lactobacillus rhamnosus GG 10 billion cell capsule (Culturelle) 1 cap PO DAILY 01/25/21 [History Last Taken Unknown] cariprazine 1.5 mg capsule (Vraylar) 1.5 mg PO DAILY 04/05/21 [History Last Taken Unknown] pantoprazole 40 mg tablet,delayed release 40 mg PO DAILY 04/05/21 [History Last Taken Unknown] hydrocortisone 1 %-pramoxine 1 % rectal foam (Proctofoam HC) 1 applic DC DAILY PRN rectal pain #10 grams 10/10/21 [Rx Last Taken Unknown] ondansetron 4 mg disintegrating tablet 4 mg PO Q8H PRN nausea and vomiting #10 tabs 01/21/22 [Rx Last Taken Unknown] Allergy/AdvReac Type Severity Reaction Status Date / Time influenza virus vaccine, Allergy Other Verified 03/10/22 21:18 specific [influenza virus vacc,specific] iodine Allergy Rash Verified 03/10/22 21:18 Latex, Natural Rubber Allergy Rash Verified 03/10/22 21:18 [email or web address] Allergy Anaphylaxis Verified 03/10/22 21:18 meloxicam Allergy Other Verified 03/10/22 21:18 metronidazole [From Flagyl] Allergy Hives Verified 03/10/22 21:18 montelukast [From Singulair] Allergy Rash Verified 03/10/22 21:18 morphine Allergy Other Verified 03/10/22 21:18 Penicillins [PCN] Allergy Unknown Verified 03/10/22 21:18 clindamycin AdvReac Nausea/Vom/ Verified 03/10/22 21:18 Diarrhea doxycycline AdvReac Nausea Verified 03/10/22 21:18 prednisone AdvReac Other Verified 03/10/22 21:18 ANTIBACTERIAL SOAP Allergy Hives Uncoded 03/10/22 21:18 HAND [employer]ODUCER Allergy Hives Uncoded 03/10/22 21:18 SEASONAL ALLERGIES Allergy Other Uncoded 03/10/22 21:18 Family History Brother Hypertension Bipolar affect, depressed Surgical History No pertinent past surgical history Social History Smoking Status: Current every day smoker tobacco type: cigarettes Tobacco: How many years used: 24 second hand exposure: Yes alcohol intake: never ROS ROS ED Constitutional Constitutional ED: Denies chills or fever(s) Eyes Eyes: Denies change in vision or diplopia ENT ENT ED: Denies rhinorrhea or sore throat Cardiovascular Cardiovascular: Denies chest pain or palpitations Respiratory/Chest Respiratory/Chest: Denies cough or dyspnea Gastrointestinal Gastrointestinal: Denies abdominal pain, diarrhea, nausea or vomiting Genitourinary Genitourinary ED: Denies dysuria or hematuria Musculoskeletal Musculoskeletal: Denies back pain or neck pain Integumentary Denies abscess or rash Neurologic Neurologic: Denies headache(s), paresthesias or weakness Psychiatric Psychiatric: Reports as per HPI, anxiety, depression and paranoia; Denies homicidal ideation Endocrine Endocrinology: Denies polydipsia or polyphagia EXAM Physical Exam Const Vital Signs: 03/10/22 21:18 Temperature 97.4 F L Temperature Source Temporal Pulse Rate 115 H Respiratory Rate 15 Blood Pressure 140/100 H Blood Pressure Mean 113 Pulse Ox 96 Oxygen Delivery Method Room Air Positive well nourished and well developed General Appearance ED: well developed and NAD HEENT Reports moist mucous membranes normocephalic and atraumatic Eyes PERRL and EOMs intact bilaterally General Eye ED: Negative for scleral icterus Neck no lymphadenopathy and supple Resp normal respiratory effort and clear to auscultation bilaterally Cardio no murmurs Rate: regular rate Rhythm: regular rhythm GI non-distended GI Narrative: Minor subcostal tenderness bilateral upper quadrants, in addition to the ribs consistent with muscular discomfort, otherwise benign abdomen nontender throughout. Auscultation: normoactive bowel sounds Palpation: soft Back/Spine no CVA tenderness and normal ROM Extremity normal to inspection General Extremety ED: Negative for edema General Extremity: Negative for edema Neuro oriented x3, CN's II-XII intact bilaterally, no sensory deficits noted and gait normal Sensorium / Orientation: alert Motor Exam: strength 5/5 throughout Psych mental status grossly normal, thought process normal, cooperative, activity/ motor behavior normal and denies homicidal ideation Attitude: guarded Mood & Affect: depressed and anxious Insight: insight good Judgement: judgement good Skin Lesions: no lesions Rashes: no rashes MDM MDM MDM Narrative Medical decision making narrative: Urine drug screen and alcohol are obtained, she does not appear to be under the influence of any substance and denies using them. She is medically cleared we will contact crisis to further evaluate, and discussing this with her she is comfortable with that and agrees she probably does not need to be admitted to a psychiatric facility tonight. I did not think slipped the patient, she is insightful and I told her that she did not have a reason to be pink slipped when she asked me specifically. She was waiting for crisis to evaluate her, and she pleasantly told nurses that she was tired of waiting and really did not want to wait any longer and therefore e loped. Lab Data Attestation: I reviewed the patient's lab results. Labs: Laboratory Results - last 24 hr 03/10/22 03/10/22 22:15 22:25 Urine Opiates Screen NEGATIVE Urine Methadone Screen NEGATIVE Ur Barbiturates Screen NEGATIVE Ur Phencyclidine Scrn NEGATIVE Ur Amphetamines Screen NEGATIVE MDMA (Ecstasy) Screen NEGATIVE U Benzodiazepines Scrn NEGATIVE Urine Cocaine Screen NEGATIVE U Cannabinoids Screen NEGATIVE Ur Drug Screen Comment Ethyl Alcohol < 3.0 Discharge Plan Triage Chief Complaint: Anxiety ED Provider: Derrick Gallegos Dx/Rx/DC Orders Clinical Impression: Anxiety, Depression Prescriptions: No Action (DME) spacer See Rx Instructions .Route .MEDSUPPLY Qty: 1 0RF Rx Instructions: As directed multivitamin 1 EACH tablet 1 ea PO DAILY loratadine 10 MG capsule 10 mg PO QHS propranolol 10 MG tablet 10 mg PO DAILY benztropine 0.5 MG tablet 0.5 mg PO DAILY lamotrigine 25 MG tablet 50 mg PO DAILY cholecalciferol (vitamin D3) [Vitamin D3] 50 mcg (2,000 unit) Tablet 50 mcg PO DAILY Culturelle 10 billion cell Capsule 1 cap PO DAILY pantoprazole 40 mg Tablet,Delayed Release (Dr/Ec) 40 mg PO DAILY Vraylar 1.5 mg Capsule 1.5 mg PO DAILY Proctofoam HC 1-1 % foam 1 applic DC DAILY PRN (Reason: rectal pain) Qty: 10 0RF ondansetron 4 mg tablet,disintegrating 4 mg PO Q8H PRN (Reason: nausea and vomiting) Qty: 10 0RF Primary Care Provider: Domenic Mejia Referrals: Domenic Mejia MD [Primary Care Provider] - Disposition Disposition: Elopement Discharge Date/Time: 03/11/22 01:12
[2022-03-10 22:48] LABS: Amphetamine Urine VISTA NEGATIVE (<1000 ng/mL); Barbiturate Urine VISTA NEGATIVE (< 200 ng/mL); Benzodiazepine Urine VISTA NEGATIVE (< 200 ng/mL); Cocaine Urine VISTA NEGATIVE (< 300 ng/mL); Ecstacy Urine VISTA NEGATIVE (< 500 ng/mL); Methadone Urine VISTA NEGATIVE (< 300 ng/mL); PCP Urine VISTA NEGATIVE (< 25 ng/mL); THC Urine VISTA NEGATIVE (< 50 ng/mL); Vista UDS pH Range 6
[2022-03-10 23:02] LABS: Alcohol, Blood (Medical)-Serum < 3.0 mg/dL
--- NOTE | 2022-03-10 23:55 | NURSING ---
CALLED [facility]IS[facility] AT 1400 AND FAXED CHART TO THE OFFICE
--- NOTE | 2022-03-11 01:11 | ED.RN ---
pt requesting to not wait to talk to crisis. police reserves commander gave ride home. pt willie at [place].
== END 2022-03-11 01:12 | disposition left against medical advice (07) ==
LOC: ED 22:41
PROVIDERS: Emergency Provider Emergency Medicine; PCP Family Medicine; Visit Provider Emergency Medicine
DX: F41.9 Anxiety disorder, unspecified (principal); F32.A Depression, unspecified; F17.210 Nicotine dependence, cigarettes, uncomplicated; Z79.899 Other long term (current) drug therapy
CPT/HCPCS: 36415; 80307; 82077; 99282

== ENCOUNTER 2022-03-31 17:06 | Emergency (ER) | payer MEDICAID, SELFPAY ==
[2022-03-31 17:07] VITALS: BP 147/104; PULSE 87; RESP 18; TEMP 36.4; O2SAT 96; BMI 35.7
--- NOTE | 2022-03-31 17:27 | EDS_ITS ---
HPI History of Present Illness Chief Complaint: General Illness Detail of Chief Complaint: diarrhea Informant: patient Onset/Context/Timing Onset: Weeks (1) Context: Gradual Onset Timing: Intermittent Quality: watery-loose, nonbloody Current Severity: Mild Maximum Severity: Mild Worsened by: nothing Relieved by: nothing but tried no treatments Associated Symptoms Associated Symptoms: cough, malaise, upset stomach Narrative Narrative: Patient presents by EMS for feeling weak and malaised, 1 or 2 bouts of nonbloody diarrhea per day for the past week, she also has a cough. She denies any fevers or chills that she knows of but states she does not have a thermometer to check. She denies any abdominal pain or nausea/vomiting but states she has an upset stomach that is not bothering her at the current moment. She denies any recent antibiotics, travel out of the area, changes in sources of water ingestion, or suspicious sources of food poisoning such as uncooked or undercooked foods/meats. [facility] Medical History Anemia Anxiety Arthritis ASTHMA Chest pain Chronic cough Depression Difficulty balancing Fatigue NECK/BACK PAIN Severe headache Shoulder pain Stomach ulcer Home Medications loratadine 10 mg capsule 10 mg PO QHS 09/03/18 [History Last Taken Unknown] multivitamin 1 ea PO DAILY 09/03/18 [History Last Taken Unknown] spacer #1 ea 02/14/19 [Rx Last Taken Unknown] propranolol 10 mg tablet 10 mg PO DAILY 04/24/19 [History Last Taken Unknown] benztropine 0.5 mg tablet 0.5 mg PO DAILY 11/08/20 [History Last Taken Unknown] lamotrigine 25 mg tablet 50 mg PO DAILY 11/08/20 [History Last Taken Unknown] cholecalciferol (vitamin D3) 50 mcg (2,000 unit) tablet (Vitamin D3) 50 mcg PO DAILY 01/16/21 [History Last Taken Unknown] Lactobacillus rhamnosus GG 10 billion cell capsule (Culturelle) 1 cap PO DAILY 01/25/21 [History Last Taken Unknown] cariprazine 1.5 mg capsule (Vraylar) 1.5 mg PO DAILY 04/05/21 [History Last Taken Unknown] pantoprazole 40 mg tablet,delayed release 40 mg PO DAILY 04/05/21 [History Last Taken Unknown] hydrocortisone 1 %-pramoxine 1 % rectal foam (Proctofoam HC) 1 applic MA DAILY PRN rectal pain #10 grams 10/10/21 [Rx Last Taken Unknown] ondansetron 4 mg disintegrating tablet 4 mg PO Q8H PRN nausea and vomiting #10 tabs 01/21/22 [Rx Last Taken Unknown] Allergy/AdvReac Type Severity Reaction Status Date / Time influenza virus vaccine, Allergy Other Verified 03/31/22 17:07 specific [influenza virus vacc,specific] iodine Allergy Rash Verified 03/31/22 17:07 Latex, Natural Rubber Allergy Rash Verified 03/31/22 17:07 [place] Allergy Anaphylaxis Verified 03/31/22 17:07 meloxicam Allergy Other Verified 03/31/22 17:07 metronidazole [From Flagyl] Allergy Hives Verified 03/31/22 17:07 montelukast [From Singulair] Allergy Rash Verified 03/31/22 17:07 morphine Allergy Other Verified 03/31/22 17:07 Penicillins [PCN] Allergy Unknown Verified 03/31/22 17:07 clindamycin AdvReac Nausea/Vom/ Verified 03/31/22 17:07 Diarrhea doxycycline AdvReac Nausea Verified 03/31/22 17:07 prednisone AdvReac Other Verified 03/31/22 17:07 ANTIBACTERIAL SOAP Allergy Hives Uncoded 03/31/22 17:07 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 03/31/22 17:07 SEASONAL ALLERGIES Allergy Other Uncoded 03/31/22 17:07 Family History Brother Hypertension Bipolar affect, depressed Surgical History No pertinent past surgical history Social History Smoking Status: Current every day smoker tobacco type: cigarettes Tobacco: How many years used: 24 second hand exposure: Yes alcohol intake: never ROS ROS ED Constitutional Constitutional ED: Reports fatigue and malaise; Denies chills or fever(s) Eyes Eyes: Denies change in vision or diplopia ENT ENT ED: Denies rhinorrhea or sore throat Cardiovascular Cardiovascular: Denies chest pain or palpitations Respiratory/Chest Respiratory/Chest: Reports cough; Denies dyspnea Gastrointestinal Gastrointestinal: Reports as per HPI and diarrhea; Denies abdominal pain, nausea or vomiting Genitourinary Genitourinary ED: Denies dysuria or hematuria Musculoskeletal Musculoskeletal: Denies back pain or neck pain Integumentary Denies abscess or rash Neurologic Neurologic: Denies headache(s), paresthesias or weakness Psychiatric Psychiatric: Denies anxiety or suicidal thoughts EXAM Physical Exam Const Vital Signs: 03/31/22 17:07 Temperature 97.5 F L Temperature Source Temporal Pulse Rate 87 Respiratory Rate 18 Blood Pressure 147/104 H Blood Pressure Mean 118 Pulse Ox 96 Oxygen Delivery Method Room Air Positive well nourished and well developed Constitutional Narrative: Well-appearing General Appearance ED: well developed and NAD HEENT Reports moist mucous membranes normocephalic and atraumatic Eyes PERRL and EOMs intact bilaterally Neck full ROM and supple Resp normal respiratory effort and clear to auscultation bilaterally Effort and Inspection: able to speak in complete sentences Cardio regular rate, regular rhythm and no murmurs Rate: Negative for tachycardic GI non-tender, non-distended and no masses Auscultation: normoactive bowel sounds Palpation: soft Back/Spine no CVA tenderness General Back: other FROM Extremity normal to inspection General Extremety ED: Negative for edema, pulses abnormal or tenderness General Extremity: Negative for edema or pulses abnormal Neuro oriented x3, CN's II-XII intact bilaterally and no sensory deficits noted Sensorium / Orientation: awake and alert Motor Exam: strength 5/5 throughout Psych mental status grossly normal Skin no rashes or lesions noted and no wounds MDM MDM MDM Narrative Medical decision making narrative: Patient was offered medications for stomach suggest simethicone, Mylanta, Bentyl, she declines all of that and states she will take the IV fluid bolus that I offered her but nothing else, I do not like to take medications. Patient's work-up is unremarkable. She has no significant leukocytosis, she is not having aggressive diarrhea to suggest a bacterial cause state do not think we need to send her home with further work-up including enteric bacterial panel since she did not have a specimen here. She is hydrated well, she is ambulatory in the ER wondering when she can leave, her urine and are negative, her COVID and flu are negative, and supportive care is advised. I offered I modium, Zofran, she does not want any medications and would rather just run its course which I think it well. Lab Data Attestation: I reviewed the patient's lab results. Labs: Laboratory Results - last 24 hr 03/31/22 03/31/22 03/31/22 17:30 17:30 17:45 WBC 10.1 RBC 5.35 Hgb 15.2 H Hct 45.8 MCV 85.6 MCH 28.4 MCHC 33.2 RDW Std Deviation 39.9 RDW Coeff of Lev 12.9 Plt Count 231 MPV 11.0 Immature Gran % (Auto) 0.300 Neut % (Auto) 54.1 Lymph % (Auto) 35.6 [place] % (Auto) 6.0 Eos % (Auto) 3.4 Baso % (Auto) 0.6 Absolute Neuts (auto) 5.5 Absolute Lymphs (auto) 3.60 Nucleated RBC % 0 Sodium 141 Potassium 4.1 Chloride 111 H Carbon Dioxide 25.0 Anion Gap 5 BUN 10 Creatinine 0.84 Estim Creat Clear Calc 83.98 Est GFR (MDRD) Af Amer 95 Est GFR (MDRD) Non-Af 78 BUN/Creatinine Ratio 11.8 Glucose 88 Calcium 9.7 Urine Color Yellow Urine Clarity Clear Urine pH 6.0 Ur Specific [place] 1.010 Urine Protein Negative Urine Glucose (UA) Normal Urine Ketones Negative Urine Occult Blood Negative Urine Nitrite Negative Urine Bilirubin Negative Urine Urobilinogen Normal Ur Leukocyte Esterase Negative Urine RBC 0 SEEN Urine WBC 0 SEEN Ur Squamous Epith Cells 0-5 SEEN Urine Bacteria RARE Urine Mucus 0 SEEN Urine Test Negative Discharge Plan Triage Chief Complaint: General Illness Other Complaint: Abd Pain Diarrhea Fatigue ED Provider: Derrick Gallegos Dx/Rx/DC Orders Clinical Impression: Acute diarrhea Instructions: ED Diarrhea, Unknown Cause Prescriptions: No Action (DME) spacer See Rx Instructions .Route .MEDSUPPLY Qty: 1 0RF Rx Instructions: As directed multivitamin 1 EACH tablet 1 ea PO DAILY loratadine 10 MG capsule 10 mg PO QHS propranolol 10 MG tablet 10 mg PO DAILY benztropine 0.5 MG tablet 0.5 mg PO DAILY lamotrigine 25 MG tablet 50 mg PO DAILY cholecalciferol (vitamin D3) [Vitamin D3] 50 mcg (2,000 unit) Tablet 50 mcg PO DAILY Culturelle 10 billion cell Capsule 1 cap PO DAILY pantoprazole 40 mg Tablet,Delayed Release (Dr/Ec) 40 mg PO DAILY Vraylar 1.5 mg Capsule 1.5 mg PO DAILY Proctofoam HC 1-1 % foam 1 applic MA DAILY PRN (Reason: rectal pain) Qty: 10 0RF ondansetron 4 mg tablet,disintegrating 4 mg PO Q8H PRN (Reason: nausea and vomiting) Qty: 10 0RF Primary Care Provider: Domenic Mejia Referrals: Domenic Mejia MD [Primary Care Provider] - 1 Week if not improving Disposition Disposition: Home, Self Care
[2022-03-31] MEDS: 0.9% Normal Saline 1,000 ML 1000 ML IV (17:42)
[2022-03-31 17:48] LABS: Absolute Neutrophil Count 5.5 X10^3/uL (2.0-7.7); Basophil# 0.06 X10^3/uL; Basophil% 0.6 % (0-1); Eosinophil# 0.34 X10^3/uL; Eosinophils% 3.4 % (0-5); Hematocrit 45.8 % (37-47); Hemoglobin 15.2 g/dL (12.0-15.0); Lymphocyte % 35.6 % (19-41); Mean Corp Hgb Conc 33.2 g/dL (32-36); Mean Corpuscular Hgb 28.4 pg (27.0-32.0); Mean Corpuscular Volume 85.6 fL (81-99); Monocyte# 0.61 X10^3/uL; NRBC Flagged by Analyzer 0 % (0-5); Neutrophil # 5.47 X10^3/uL (2.7-7.7); Neutrophil % 54.1 % (47-70); Platelet Count 231 K/mm3 (150-450); RBC Distribution Width CV 12.9 % (11.6-14.6); RBC Distribution Width SD 39.9 fl (35.1-43.9); Red Blood Count 5.35 M/mm3 (4.2-5.4); White Blood Count 10.1 K/mm3 (4.4-11.0)
[2022-03-31 17:58] LABS: Anion Gap 5 (5-15); BUN 10 mg/dL (7-18); BUN/Creat Ratio 11.8 RATIO (10-20); Calcium,Total 9.7 mg/dL (8.5-10.1); Chloride 111 mmol/L (98-107); Creatinine, Serum 0.84 mg/dL (0.55-1.02); EST Glomerular Filtration Rate 78 mL/min (>60); Est Glom Filt Rate - Afr Amer 95 mL/min (>60); Estimated Creatinine Clearance 83.98 ml/min; Glucose 88 mg/dL (74-106); Potassium 4.1 mmol/L (3.5-5.1); Sodium Level 141 mmol/L (136-145)
[2022-03-31 18:00] LABS: Mucous, Urine 0 SEEN /hpf (<or=2+); Red Blood Cells-Urine 0 SEEN /hpf (0-5); White Blood Cells 0 SEEN /hpf (0-5)
[2022-03-31 18:02] LABS: Color, Urine Yellow (Yellow); Glucose, Dipstick Normal (Normal); Ketone-Dipstick Negative (Negative); Leukocyte Esterase-Dipstick Negative /ul (Negative); Nitrite-Dipstick Negative (Negative); Occult Blood-Urine Negative /ul (Negative); Protein-Dipstick Negative (Negative); Urine Bilirubin Dipstick Negative (Negative); Urine Clarity Clear (Clear); Urine Urobilinogen Normal (Normal)
[2022-03-31 18:17] LABS: Squamous Epithelial Cells - UA 0-5 SEEN /hpf (5-10)
[2022-03-31 18:18] LABS: Bacteria RARE /hpf (None Seen); Internal QC Validated? YES +Cl - CLEAR BKGD; Pregnancy, Urine Negative Negative
== END 2022-03-31 19:53 | disposition home or self-care (01) ==
PROVIDERS: Emergency Provider Emergency Medicine; PCP Family Medicine; Visit Provider Emergency Medicine
DX: R19.7 Diarrhea, unspecified (principal); F17.210 Nicotine dependence, cigarettes, uncomplicated
CPT/HCPCS: 80048; 81001; 81025; 85025; 87428; 96360; 99285; J7030; A4216

== ENCOUNTER 2022-04-10 17:49 | Emergency (ER) | payer MEDICAID, SELFPAY ==
[2022-04-10 17:49] VITALS: BP 157/99; PULSE 103; RESP 18; TEMP 36.4; O2SAT 98; BMI 36.2
[2022-04-10] MEDS: 0.9% Normal Saline 1,000 ML 1000 ML IV (18:22)
[2022-04-10 18:25] LABS: Mucous, Urine 0 SEEN /hpf (<or=2+); Red Blood Cells-Urine 0 SEEN /hpf (0-5); White Blood Cells 0 SEEN /hpf (0-5)
[2022-04-10 18:29] LABS: Absolute Lymphocyte Count 3.72 X10^3/uL (0.83-4.51); Absolute Neutrophil Count 6.7 X10^3/uL (2.0-7.7); Basophil# 0.05 X10^3/uL; Basophil% 0.4 % (0-1); Color, Urine Straw (Yellow); Eosinophil# 0.36 X10^3/uL; Eosinophils% 3.1 % (0-5); Glucose, Dipstick Normal (Normal); Hematocrit 43.7 % (37-47); Hemoglobin 14.9 g/dL (12.0-15.0); Ketone-Dipstick Negative (Negative); Leukocyte Esterase-Dipstick Negative /ul (Negative); Lymphocyte # 3.72 X10^3/ul (0.83-4.51); Lymphocyte % 31.7 % (19-41); Mean Corp Hgb Conc 34.1 g/dL (32-36); Mean Corpuscular Hgb 29.3 pg (27.0-32.0); Mean Corpuscular Volume 85.9 fL (81-99); Mean Platelet Vol. 10.4 fl (6.2-12.0); Monocyte# 0.86 X10^3/uL; Monocyte% 7.3 % (0-10); NRBC Flagged by Analyzer 0 % (0-5); Neutrophil # 6.72 X10^3/uL (2.7-7.7); Neutrophil % 57.2 % (47-70); Nitrite-Dipstick Negative (Negative); Occult Blood-Urine Negative /ul (Negative); Platelet Count 213 K/mm3 (150-450); Protein-Dipstick Negative (Negative); RBC Distribution Width CV 12.6 % (11.6-14.6); RBC Distribution Width SD 39.6 fl (35.1-43.9); Red Blood Count 5.09 M/mm3 (4.2-5.4); Specific Gravity, Urine 1.005 (1.002-1.030); Urine Bilirubin Dipstick Negative (Negative); Urine Clarity Clear (Clear); Urine Urobilinogen Normal (Normal); White Blood Count 11.7 K/mm3 (4.4-11.0)
[2022-04-10 18:34] LABS: Internal QC Validated? YES +Cl - CLEAR BKGD; Pregnancy, Urine Negative Negative
[2022-04-10 18:45] LABS: AST(SGOT) 12 U/L (15-37); Alanine Aminotransfer ALT/SGPT 24 U/L (13-56); Albumin, Serum 3.5 g/dL (3.2-5.0); Alkaline Phosphatase 92 U/L (45-117); Anion Gap 5 (5-15); BUN 10 mg/dL (7-18); BUN/Creat Ratio 11.9 RATIO (10-20); Calcium,Total 9.3 mg/dL (8.5-10.1); Chloride 112 mmol/L (98-107); Creatinine, Serum 0.84 mg/dL (0.55-1.02); EST Glomerular Filtration Rate 79 mL/min (>60); Est Glom Filt Rate - Afr Amer 95 mL/min (>60); Estimated Creatinine Clearance 83.98 ml/min; Globulin 3.5 g/dL (2.2-4.2); Glucose 96 mg/dL (74-106); Lipase 113 U/L (73-393); Potassium 3.9 mmol/L (3.5-5.1); Sodium Level 141 mmol/L (136-145)
[2022-04-10 18:48] LABS: Bacteria 1+ /hpf (None Seen); Squamous Epithelial Cells - UA 0-5 SEEN /hpf (5-10)
--- NOTE | 2022-04-10 18:56 | ED.VIS.GI ---
HPI HPI - GI History of Present Illness Chief Complaint: Nausea/Vomiting/Diarrhea Informant: patient Narrative Narrative: Patient is a 41-year-old female with history of bipolar disorder, anxiety, COPD presenting with diarrhea, abdominal pain and 1 episode of vomiting. This happened 1 hour prior to arrival. Patient states she had 2 episodes of diarrhea 15 minutes apart and threw up in her mouth once. She states she has some associated periumbilical pain. She notes that she had 1 bowel movement that was diarrhea yesterday. She was sick with a viral illness about 2 weeks ago and had some diarrhea at that time. She was seen in the ER at that time and had a largely negative work-up. Patient is concerned because she did not have abdominal pain at that time. This was on 03/31/2022. Patient declined medications at that time stating that she wanted to let this run its course. She had blood work at that time as well which was largely negative. [facility] Medical History Anemia Anxiety Arthritis ASTHMA Chest pain Chronic cough Depression Difficulty balancing Fatigue NECK/BACK PAIN Severe headache Shoulder pain Stomach ulcer Home Medications loratadine 10 mg capsule 10 mg PO QHS 09/03/18 [History Last Taken Unknown] multivitamin 1 ea PO DAILY 09/03/18 [History Last Taken Unknown] spacer #1 ea 02/14/19 [Rx Last Taken Unknown] propranolol 10 mg tablet 10 mg PO DAILY 04/24/19 [History Last Taken Unknown] benztropine 0.5 mg tablet 0.5 mg PO DAILY 11/08/20 [History Last Taken Unknown] lamotrigine 25 mg tablet 50 mg PO DAILY 11/08/20 [History Last Taken Unknown] cholecalciferol (vitamin D3) 50 mcg (2,000 unit) tablet (Vitamin D3) 50 mcg PO DAILY 01/16/21 [History Last Taken Unknown] Lactobacillus rhamnosus GG 10 billion cell capsule (Culturelle) 1 cap PO DAILY 01/25/21 [History Last Taken Unknown] cariprazine 1.5 mg capsule (Vraylar) 1.5 mg PO DAILY 04/05/21 [History Last Taken Unknown] pantoprazole 40 mg tablet,delayed release 40 mg PO DAILY 04/05/21 [History Last Taken Unknown] hydrocortisone 1 %-pramoxine 1 % rectal foam (Proctofoam HC) 1 applic [place] DAILY PRN rectal pain #10 grams 10/10/21 [Rx Last Taken Unknown] ondansetron 4 mg disintegrating tablet 4 mg PO Q8H PRN nausea and vomiting #10 tabs 01/21/22 [Rx Last Taken Unknown] Allergy/AdvReac Type Severity Reaction Status Date / Time influenza virus vaccine, Allergy Other Verified 03/31/22 17:07 specific [influenza virus vacc,specific] iodine Allergy Rash Verified 03/31/22 17:07 Latex, Natural Rubber Allergy Rash Verified 03/31/22 17:07 [email or web address] Allergy Anaphylaxis Verified 03/31/22 17:07 meloxicam Allergy Other Verified 03/31/22 17:07 metronidazole [From Flagyl] Allergy Hives Verified 03/31/22 17:07 montelukast [From Singulair] Allergy Rash Verified 03/31/22 17:07 morphine Allergy Other Verified 03/31/22 17:07 Penicillins [PCN] Allergy Unknown Verified 03/31/22 17:07 Seasonal Allergies: Uncoded Allergy NEEDS Verified 04/06/22 01:09 FOLLOW-UP clindamycin AdvReac Nausea/Vom/ Verified 03/31/22 17:07 Diarrhea doxycycline AdvReac Nausea Verified 03/31/22 17:07 prednisone AdvReac Other Verified 03/31/22 17:07 ANTIBACTERIAL SOAP Allergy Hives Uncoded 03/31/22 17:07 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 Uncoded 03/31/22 17:07 Family History Brother Hypertension Bipolar affect, depressed Surgical History No pertinent past surgical history Social History Smoking Status: Current every day smoker tobacco type: cigarettes Tobacco: How many years used: 24 second hand exposure: Yes alcohol intake: never ROS ROS ED Constitutional Constitutional ED: Denies chills or fever(s) ENT ENT ED: Denies rhinorrhea or sore throat Cardiovascular Cardiovascular: Denies chest pain Respiratory/Chest Respiratory/Chest: Denies cough Gastrointestinal Gastrointestinal: Reports abdominal pain, diarrhea and vomiting; Denies melena or nausea Genitourinary Genitourinary ED: Denies dysuria or hematuria Musculoskeletal Musculoskeletal: Denies arthralgias or back pain Integumentary Denies rash Neurologic Neurologic: Denies headache(s), paresthesias or weakness Psychiatric Psychiatric: Reports anxiety; Denies depression Hematologic/Lymphatic Hematologic/Lymphatic: Denies easy bleeding or easy bruising EXAM Physical Exam Const Vital Signs: 04/10/22 17:49 Temperature 97.5 F L Temperature Source Temporal Pulse Rate 103 H Respiratory Rate 18 Blood Pressure 157/99 H Blood Pressure Mean 118 Pulse Ox 98 Oxygen Delivery Method Room Air Positive well nourished, well developed and obese General Appearance ED: well developed and NAD; Negative for pallor Nutritional Appearance: obese HEENT Reports TM's clear and moist mucous membranes normocephalic and atraumatic Tympanic Membrane ED: Yes TM's clear Eyes PERRL Neck supple Resp normal respiratory effort and clear to auscultation bilaterally Cardio regular rate, regular rhythm and no murmurs GI non-distended and no masses GI Narrative: Patient intermittently has tenderness palpation of the right upper quadrant and the epigastric area however she has negative Pantoja sign. She does have an inconsistent abdominal exam. No peritoneal signs appreciated. Inspection: Negative for abdominal distention Palpation: soft; Negative for guarding or rigid Back/Spine no CVA tenderness Extremity full ROM General Extremety ED: Negative for edema or tenderness General Extremity: Negative for edema Neuro moves all extremities and no sensory deficits noted Psych mental status grossly normal Mood & Affect: anxious Skin no wounds General Skin Exam: Negative for jaundice or pallor MDM MDM MDM Narrative Medical decision making narrative: Patient is evaluated for 2 episodes of diarrhea and approximately 1 hour of abdominal discomfort. Patient appears nontoxic no acute distress. Patient is concern for dehydration or other infectious cause of her symptoms. Patient had similar symptoms about 1 week ago but self resolved. Patient also admits that she does not like to take any medicines. Vital signs are normal. Patient has a very minor leukocytosis of 11.7 but no signs of shift. This is nonspecific. CMP is normal. Urinalysis is consistent with some mild contamination but otherwise normal. I repeat evaluation patient had received about 500 cc of fluid and states she is feeling better. She attempts to give a stool sample but is only able to provide a very small partially formed sample that is not amenable to testing. Discussed with patient that as she has recurrent abdominal pain, diarrhea, nonspecific leukocytosis is slightly increased and last week it would not be unreasonable to perform a CT scan. Patient states at this time she does not think she needs it and would like to hold off. Patient thinks that her abdominal symptoms are either stress/anxiety reduced or associate with constipation as her first bowel movement was initially formed and solid then followed by diarrhea. I feel that given that overall patient is very well-appearing in the short duration of her symptoms I think this is a reasonable plan. She is given return precautions. Should she have worsening symptoms over the next 24 to 48 hours she can return to be reevaluated for potential CT at that time. Patient discharged home in stable condition. She is counseled on brat diet and drinking lots of fluids. Lab Data Attestation: I reviewed the patient's lab results. Labs: Laboratory Results - last 24 hr 04/10/22 04/10/22 04/10/22 18:20 18:20 18:20 WBC 11.7 H RBC 5.09 Hgb 14.9 Hct 43.7 MCV 85.9 MCH 29.3 MCHC 34.1 RDW Std Deviation 39.6 RDW Coeff of Lev 12.6 Plt Count 213 MPV 10.4 Immature Gran % (Auto) 0.300 Neut % (Auto) 57.2 Lymph % (Auto) 31.7 [place] % (Auto) 7.3 Eos % (Auto) 3.1 Baso % (Auto) 0.4 Absolute Neuts (auto) 6.7 Absolute Lymphs (auto) 3.72 Nucleated RBC % 0 Sodium 141 Potassium 3.9 Chloride 112 H Carbon Dioxide 24.0 Anion Gap 5 BUN 10 Creatinine 0.84 Estim Creat Clear Calc 83.98 Est GFR (MDRD) Af Amer 95 Est GFR (MDRD) Non-Af 79 BUN/Creatinine Ratio 11.9 Glucose 96 Calcium 9.3 Total Bilirubin 0.20 AST 12 L ALT 24 Alkaline Phosphatase 92 Total Protein 7.0 Albumin 3.5 Globulin 3.5 Albumin/Globulin Ratio 1.0 Lipase 113 Urine Color Straw Urine Clarity Clear Urine pH 7.0 Ur Specific [place] 1.005 Urine Protein Negative Urine Glucose (UA) Normal Urine Ketones Negative Urine Occult Blood Negative Urine Nitrite Negative Urine Bilirubin Negative Urine Urobilinogen Normal Ur Leukocyte Esterase Negative Urine RBC 0 SEEN Urine WBC 0 SEEN Ur Squamous Epith Cells 0-5 SEEN Urine Bacteria 1+ Urine Mucus 0 SEEN Urine Test Negative Discharge Plan Triage Chief Complaint: Nausea/Vomiting/Diarrhea ED Provider: Manasa Hudson Dx/Rx/DC Orders Clinical Impression: Diarrhea, Abdominal pain Instructions: ED Abdominal Pain Unkn Cause Fem, ED Diet for Vomiting or ... Prescriptions: No Action (DME) spacer See Rx Instructions .Route .MEDSUPPLY Qty: 1 0RF Rx Instructions: As directed multivitamin 1 EACH tablet 1 ea PO DAILY loratadine 10 MG capsule 10 mg PO QHS propranolol 10 MG tablet 10 mg PO DAILY benztropine 0.5 MG tablet 0.5 mg PO DAILY lamotrigine 25 MG tablet 50 mg PO DAILY cholecalciferol (vitamin D3) [Vitamin D3] 50 mcg (2,000 unit) Tablet 50 mcg PO DAILY Culturelle 10 billion cell Capsule 1 cap PO DAILY pantoprazole 40 mg Tablet,Delayed Release (Dr/Ec) 40 mg PO DAILY Vraylar 1.5 mg Capsule 1.5 mg PO DAILY Proctofoam HC 1-1 % foam 1 applic [place] DAILY PRN (Reason: rectal pain) Qty: 10 0RF ondansetron 4 mg tablet,disintegrating 4 mg PO Q8H PRN (Reason: nausea and vomiting) Qty: 10 0RF Primary Care Provider: Domenic Mejia Referrals: Domenic Mejia MD [Primary Care Provider] - Disposition Disposition: Home, Self Care Discharge Date/Time: 04/10/22 20:25
== END 2022-04-10 20:25 | disposition home or self-care (01) ==
PROVIDERS: Emergency Provider Emergency Medicine; PCP Family Medicine; Visit Provider Emergency Medicine
DX: R19.7 Diarrhea, unspecified (principal); J44.9 Chronic obstructive pulmonary disease, unspecified; F31.9 Bipolar disorder, unspecified; F41.9 Anxiety disorder, unspecified; F17.210 Nicotine dependence, cigarettes, uncomplicated; R11.2 Nausea with vomiting, unspecified; R10.9 Unspecified abdominal pain
CPT/HCPCS: 80053; 81001; 81025; 83690; 85025; 96360; 99285; J7030; A4216

== ENCOUNTER 2022-04-20 12:35 | Emergency (ER) | payer MEDICAID, SELFPAY ==
[2022-04-20 12:37] VITALS: BP 139/99; PULSE 96; RESP 17; TEMP 36.1; O2SAT 95; BMI 35.9
--- NOTE | 2022-04-20 13:37 | CT_ITS ---
INDICATION: Pain EXAMINATION: CT ABDOMEN AND PELVIS WITHOUT CONTRAST - CT Abdomen And Pelvis W/O Contrast Injection TECHNIQUE: Helically acquired images were obtained of the abdomen and pelvis without oral or IV contrast. A radiation dose optimization technique was used for this scan. IV Contrast dosage and agent: None. Oral contrast: None. COMPARISON: 05/14/2018. FINDINGS: LOWER CHEST: Lung bases are clear. No cardiomegaly or pericardial effusion. LIVER: Homogeneous. No focal mass. GALLBLADDER AND BILIARY TREE: No calcified gallstones. The gallbladder is contracted, thickening of the wall, no evidence of pericholecystic stranding is seen.. No intra- or extrahepatic biliary ductal dilation. PANCREAS: No focal cystic or solid mass. SPLEEN: Normal size without focal cystic or solid mass. ADRENAL GLANDS: No nodules. KIDNEYS AND URETERS: Normal renal size and position. No hydronephrosis. PERITONEUM: No ascites or free air. No other fluid collection. BOWEL: Focal areas of increased attenuation visualized in the distal stomach would recommend clinical correlation in these could represent the fluid products or could represent a gastric ulcer, no evidence of thickening of the wall of the stomach is visualized, no evidence of stranding of the adjacent fat planes. No stomach or bowel distension. The appendix is unremarkable. No focal inflammatory change. Abundance of stool visualized in the large bowel but no evidence of obstruction. Scattered diverticular disease but no evidence of acute diverticulitis. LYMPH NODES: Scattered mesenteric lymph nodes. Bilateral inguinal lymphadenopathy visualized. VESSELS: Aorta is non-dilated. URINARY BLADDER: Unremarkable. REPRODUCTIVE ORGANS: No pelvic masses. ABDOMINAL WALL: No discrete abdominal or pelvic wall hernia. BONES: No lytic or blastic abnormality. CT/Abdomen/Pelvis without Cont IMPRESSION: Abundance of stool in the large bowel no evidence of obstruction. Diverticular disease but no evidence of acute diverticulitis. Focal areas of increased attenuation visualized within the distal stomach, these could be artifactual or could represent food products Electronically Signed: Dionisio Bradley MD at 14:47 EDT Reading Location ID and State: [facility] / [place] Tel , Service support ,
--- NOTE | 2022-04-20 13:38 | EDS_ITS ---
HPI HPI - GI History of Present Illness Chief Complaint: Diarrhea Narrative Narrative: Patient presents with 2 months of diarrhea. She has mild abdominal pain with it, mainly along the right side. She states that she has been seen in the emergency department 2 months ago, and had a work-up and was told that if she has continued diarrhea that she would need a CT of her abdomen and pelvis. She has not followed up with her primary care physician. She states that she has intermittent episodes of diarrhea, 1-2 in the last 24 hours without any blood in her bowel movements. She does not have menstrual periods secondary to Depo- Provera. She denies any dysuria or hematuria. No weakness or lightheadedness. She states she is also having pain in her right calf and lower leg that is worse with weightbearing and standing. She denies any injury. She was concerned because she is been seeing a chiropractor for her chronic shoulder pain and that he noticed a tremor and she is worried about there is something being wrong with her right lower extremity because she has pain with standing. No chest pain or shortness of breath. No noted swelling. [facility] Medical History Anemia Anxiety Arthritis ASTHMA Bipolar 1 disorder Chest pain Chronic cough Depression Difficulty balancing Fatigue GERD (gastroesophageal reflux disease) NECK/BACK PAIN Severe headache Shoulder pain Stomach ulcer Home Medications loratadine 10 mg capsule 10 mg PO QHS 09/03/18 [History Last Taken Unknown] multivitamin 1 ea PO DAILY 09/03/18 [History Last Taken Unknown] spacer #1 ea 02/14/19 [Rx Last Taken Unknown] propranolol 10 mg tablet 10 mg PO DAILY 04/24/19 [History Last Taken Unknown] benztropine 0.5 mg tablet 0.5 mg PO DAILY 11/08/20 [History Last Taken Unknown] lamotrigine 25 mg tablet 50 mg PO DAILY 11/08/20 [History Last Taken Unknown] cholecalciferol (vitamin D3) 50 mcg (2,000 unit) tablet (Vitamin D3) 50 mcg PO DAILY 01/16/21 [History Last Taken Unknown] Lactobacillus rhamnosus GG 10 billion cell capsule (Culturelle) 1 cap PO DAILY 01/25/21 [History Last Taken Unknown] cariprazine 1.5 mg capsule (Vraylar) 1.5 mg PO DAILY 04/05/21 [History Last Taken Unknown] pantoprazole 40 mg tablet,delayed release 40 mg PO DAILY 04/05/21 [History Last Taken Unknown] hydrocortisone 1 %-pramoxine 1 % rectal foam (Proctofoam HC) 1 applic IA DAILY PRN rectal pain #10 grams 10/10/21 [Rx Last Taken Unknown] ondansetron 4 mg disintegrating tablet 4 mg PO Q8H PRN nausea and vomiting #10 tabs 01/21/22 [Rx Last Taken Unknown] naproxen 500 mg tablet (Naprosyn) 500 mg PO BID PRN pain #20 tabs 04/20/22 [Rx Last Taken Unknown] Allergy/AdvReac Type Severity Reaction Status Date / Time influenza virus vaccine, Allergy Other Verified 04/20/22 12:36 specific [influenza virus vacc,specific] iodine Allergy Rash Verified 04/20/22 12:36 Latex, Natural Rubber Allergy Rash Verified 04/20/22 12:36 [place] Allergy Anaphylaxis Verified 04/20/22 12:36 meloxicam Allergy Other Verified 04/20/22 12:36 metronidazole [From Flagyl] Allergy Hives Verified 04/20/22 12:36 montelukast [From Singulair] Allergy Rash Verified 04/20/22 12:36 morphine Allergy Other Verified 04/20/22 12:36 Penicillins [PCN] Allergy Unknown Verified 04/20/22 12:36 Seasonal Allergies: Uncoded Allergy NEEDS Verified 04/20/22 12:36 FOLLOW-UP clindamycin AdvReac Nausea/Vom/ Verified 04/20/22 12:36 Diarrhea doxycycline AdvReac Nausea Verified 04/20/22 12:36 prednisone AdvReac Other Verified 04/20/22 12:36 ANTIBACTERIAL SOAP Allergy Hives Uncoded 04/20/22 12:36 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 HEENT: No sore throat. No neck pain. No loss of vision. No rhinorrhea. Cardiovascular: No chest pain. No palpitations. No pedal edema. Respiratory: No cough, no shortness of breath. Abdominal: Diffuse, but mainly right-sided abdominal pain. No nausea. No vomiting. Positive diarrhea, 1-2 episodes of nonbloody stool per day for the last 2 months. Genitourinary: No dysuria. No hematuria. Musculoskeletal: Right calf/lower leg myalgias. No arthralgias. Neurologic: No headaches. No dizziness. No lightheadedness. Skin: No rash. No change in color. Psychiatric: No depression. No anxiety. EXAM Physical Exam Narrative Exam Narrative: Afebrile. Vital signs noted. HEENT: Normocephalic. Atraumatic. PERRL, EOMI. Neck soft and supple. No point tenderness or step off. Cardiovascular: Regular rate and rhythm. No murmurs, rubs, or gallops appreciated. Respiratory: No tachypnea. Lungs clear to auscultation bilaterally. Gastrointestinal: Abdomen soft, with mild tenderness along the right anterior abdominal wall, with normoactive bowel sounds. No rebound or guarding. Neurological: Awake. Alert. Nonfocal, nonlateralizing. Skin: No rash. Normal color. No pallor. Musculoskeletal: No pedal edema. No erythema. No noted calf swelling. Negative Homans' sign. No palpable cord. Full range of motion extremities. Palpable dorsalis pedis pulse. Able to ambulate in ED to bathroom. Const Vital Signs: 04/20/22 12:37 Temperature 96.9 F L Temperature Source Temporal Pulse Rate 96 Respiratory Rate 17 Blood Pressure 139/99 H Blood Pressure Mean 112 Pulse Ox 95 Oxygen Delivery Method Room Air MDM MDM MDM Narrative Medical decision making narrative: I will obtain CBC and CMP along with CT imaging and urinalysis. Patient states that she is on Depo-Provera and does not have menstrual periods. I do not feel that ultrasound is indicated of her right lower extremity. However I will obtain x-rays of the tibia/fibula. X-ray interpreted by myself shows no evidence of fracture, no acute process. CBC is grossly normal with a normal white count at 10.3, hemoglobin stable at 14.4, platelet count 226. CMP shows chloride elevated at 110 but otherwise grossly unremarkable. Serum is negative. CT of the abdomen and pelvis shows a large amount of stool in the colon but no evidence of obstruction. There is diverticulosis but no evidence of acute diverticulitis. At this point in time, she will take [id number] stool softeners and gentle laxatives. I did write her prescription for her right calf pain which I think is muscular in nature. Once again I do not feel that ultrasound is indicated as she has a low Wells criteria. She will follow- up with her primary care physician as needed. Return instructions to the emergency department were reviewed. Disposition is discharged home in stable condition. Lab Data Attestation: I reviewed the patient's lab results. Labs: Laboratory Results - last 24 hr 04/20/22 04/20/22 04/20/22 14:05 14:05 14:05 WBC 10.3 RBC 5.05 Hgb 14.4 Hct 43.6 MCV 86.3 MCH 28.5 MCHC 33.0 RDW Std Deviation 40.4 RDW Coeff of Lev 12.9 Plt Count 226 MPV 10.5 Immature Gran % (Auto) 0.200 Neut % (Auto) 57.2 Lymph % (Auto) 31.4 Wayne % (Auto) 7.7 Eos % (Auto) 3.2 Baso % (Auto) 0.3 Absolute Neuts (auto) 5.9 Absolute Lymphs (auto) 3.24 Nucleated RBC % 0 Sodium 141 Potassium 4.0 Chloride 110 H Carbon Dioxide 26.0 Anion Gap 5 BUN 11 Creatinine 0.76 Estim Creat Clear Calc 92.82 Est GFR (MDRD) Af Amer 106 Est GFR (MDRD) Non-Af 88 BUN/Creatinine Ratio 14.4 Glucose 78 Calcium 8.7 Total Bilirubin 0.30 AST 15 ALT 27 Alkaline Phosphatase 90 Total Protein 7.0 Albumin 3.4 Globulin 3.6 Albumin/Globulin Ratio 0.9 Serum , Qual NEGATIVE Urine Color Urine Clarity Urine pH Ur Specific [place] Urine Protein Urine Glucose (UA) Urine Ketones Urine Occult Blood Urine Nitrite Urine Bilirubin Urine Urobilinogen Ur Leukocyte Esterase Urine RBC Urine WBC Ur Squamous Epith Cells Urine Bacteria Urine Mucus 04/20/22 14:05 WBC RBC Hgb Hct MCV MCH MCHC RDW Std Deviation RDW Coeff of Lev Plt Count MPV Immature Gran % (Auto) Neut % (Auto) Lymph % (Auto) Wayne % (Auto) Eos % (Auto) Baso % (Auto) Absolute Neuts (auto) Absolute Lymphs (auto) Nucleated RBC % Sodium Potassium Chloride Carbon Dioxide Anion Gap BUN Creatinine Estim Creat Clear Calc Est GFR (MDRD) Af Amer Est GFR (MDRD) Non-Af BUN/Creatinine Ratio Glucose Calcium Total Bilirubin AST ALT Alkaline Phosphatase Total Protein Albumin Globulin Albumin/Globulin Ratio Serum , Qual Urine Color Yellow Urine Clarity Clear Urine pH 6.0 Ur Specific [place] 1.010 Urine Protein Negative Urine Glucose (UA) Normal Urine Ketones Negative Urine Occult Blood Negative Urine Nitrite Negative Urine Bilirubin Negative Urine Urobilinogen Normal Ur Leukocyte Esterase Negative Urine RBC 0 SEEN Urine WBC 0-5 SEEN Ur Squamous Epith Cells 0-5 SEEN Urine Bacteria 0 SEEN Urine Mucus 0 SEEN Radiography Diagnostic Testing: Clinical Impression(s) from Imaging Studies Abdomen/Pelvis CT 04/20/22 13:37 IMPRESSION: Abundance of stool in the large bowel no evidence of obstruction. Diverticular disease but no evidence of acute diverticulitis. Focal areas of increased attenuation visualized within the distal stomach, these could be artifactual or could represent food products Electronically Signed: Dionisio Bradley MD at 14:47 EDT Reading Location ID and State: [facility] / [place] Tel , Service support , Tibia/Fibula X-Ray 04/20/22 14:57 IMPRESSION: No acute osseous abnormality is seen. Electronically Signed: Dionisio Bradley MD at 15:28 EDT , Discharge Plan Triage Chief Complaint: Diarrhea ED Provider: Petey rBown Dx/Rx/DC Orders Clinical Impression: Abdominal pain, Diarrhea, Right calf pain Instructions: ED Abdominal Pain Unkn Cause Fem, ED Diarrhea, Unknown Cause, ED Muscle Strain, Extremity Prescriptions: New naproxen [Naprosyn] 500 mg tablet 500 mg PO BID PRN (Reason: pain) Qty: 20 0RF No Action (DME) spacer See Rx Instructions .Route .MEDSUPPLY Qty: 1 0RF Rx Instructions: As directed multivitamin 1 EACH tablet 1 ea PO DAILY loratadine 10 MG capsule 10 mg PO QHS propranolol 10 MG tablet 10 mg PO DAILY benztropine 0.5 MG tablet 0.5 mg PO DAILY lamotrigine 25 MG tablet 50 mg PO DAILY cholecalciferol (vitamin D3) [Vitamin D3] 50 mcg (2,000 unit) Tablet 50 mcg PO DAILY Culturelle 10 billion cell Capsule 1 cap PO DAILY pantoprazole 40 mg Tablet,Delayed Release (Dr/Ec) 40 mg PO DAILY Vraylar 1.5 mg Capsule 1.5 mg PO DAILY Proctofoam HC 1-1 % foam 1 applic IA DAILY PRN (Reason: rectal pain) Qty: 10 0RF ondansetron 4 mg tablet,disintegrating 4 mg PO Q8H PRN (Reason: nausea and vomiting) Qty: 10 0RF Primary Care Provider: Domenic Mejia Referrals: Domenic Mejia MD [Primary Care Provider] - As soon as possible Activity Restrictions/Additional Instructions: Take [id number] stool softeners and [id number] laxatives as needed. Follow-up with your primary care physician as soon as possible. Disposition Disposition: Home, Self Care
[2022-04-20 14:20] LABS: Bacteria 0 SEEN /hpf (None Seen); Mucous, Urine 0 SEEN /hpf (<or=2+); Red Blood Cells-Urine 0 SEEN /hpf (0-5)
[2022-04-20 14:25] LABS: Absolute Lymphocyte Count 3.24 X10^3/uL (0.83-4.51); Absolute Neutrophil Count 5.9 X10^3/uL (2.0-7.7); Basophil# 0.03 X10^3/uL; Basophil% 0.3 % (0-1); Color, Urine Yellow (Yellow); Eosinophil# 0.33 X10^3/uL; Eosinophils% 3.2 % (0-5); Glucose, Dipstick Normal (Normal); Hematocrit 43.6 % (37-47); Hemoglobin 14.4 g/dL (12.0-15.0); Ketone-Dipstick Negative (Negative); Leukocyte Esterase-Dipstick Negative /ul (Negative); Lymphocyte # 3.24 X10^3/ul (0.83-4.51); Lymphocyte % 31.4 % (19-41); Mean Corpuscular Hgb 28.5 pg (27.0-32.0); Mean Corpuscular Volume 86.3 fL (81-99); Mean Platelet Vol. 10.5 fl (6.2-12.0); Monocyte# 0.79 X10^3/uL; Monocyte% 7.7 % (0-10); NRBC Flagged by Analyzer 0 % (0-5); Neutrophil # 5.91 X10^3/uL (2.7-7.7); Neutrophil % 57.2 % (47-70); Nitrite-Dipstick Negative (Negative); Occult Blood-Urine Negative /ul (Negative); Platelet Count 226 K/mm3 (150-450); Protein-Dipstick Negative (Negative); RBC Distribution Width CV 12.9 % (11.6-14.6); RBC Distribution Width SD 40.4 fl (35.1-43.9); Red Blood Count 5.05 M/mm3 (4.2-5.4); Urine Bilirubin Dipstick Negative (Negative); Urine Clarity Clear (Clear); Urine Urobilinogen Normal (Normal); White Blood Count 10.3 K/mm3 (4.4-11.0)
[2022-04-20 14:30] LABS: Internal QC Validated? YES +Cl - CLEAR BKGD; Pregnancy, Serum, hCG Quali. NEGATIVE Negative
[2022-04-20 14:33] LABS: Squamous Epithelial Cells - UA 0-5 SEEN /hpf (5-10); White Blood Cells 0-5 SEEN /hpf (0-5)
[2022-04-20 14:40] LABS: ALB/GLOB Ratio 0.9 RATIO (0.9-2.4); AST(SGOT) 15 U/L (15-37); Alanine Aminotransfer ALT/SGPT 27 U/L (13-56); Albumin, Serum 3.4 g/dL (3.2-5.0); Alkaline Phosphatase 90 U/L (45-117); Anion Gap 5 (5-15); BUN 11 mg/dL (7-18); BUN/Creat Ratio 14.4 RATIO (10-20); Calcium,Total 8.7 mg/dL (8.5-10.1); Chloride 110 mmol/L (98-107); Creatinine, Serum 0.76 mg/dL (0.55-1.02); EST Glomerular Filtration Rate 88 mL/min (>60); Est Glom Filt Rate - Afr Amer 106 mL/min (>60); Estimated Creatinine Clearance 92.82 ml/min; Globulin 3.6 g/dL (2.2-4.2); Glucose 78 mg/dL (74-106); Sodium Level 141 mmol/L (136-145)
--- NOTE | 2022-04-20 14:57 | RAD_ITS ---
INDICATION: Pain EXAMINATION/TECHNIQUE: X-RAY - RIGHT XR Tibia/Fibula 2 Views 2 VIEWS COMPARISON: None. FINDINGS: SOFT TISSUES: No soft tissue swelling or gas. No radiopaque foreign body. BONES/JOINTS: No acute fracture or subluxation.. Normal alignment. Preservation of the joint space.. Degenerative changes seen. No sclerotic or destructive changes observed. RAD/Tibia & Fibula 2 Views IMPRESSION: No acute osseous abnormality is seen. Electronically Signed: Dionisio Bradley MD at 15:28 EDT ,
[2022-04-20 16:12] VITALS: BP 137/94; PULSE 97; RESP 16; O2SAT 97
== END 2022-04-20 16:20 | disposition home or self-care (01) ==
PROVIDERS: Emergency Provider Emergency Medicine; PCP Family Medicine; Visit Provider Emergency Medicine
DX: R19.7 Diarrhea, unspecified (principal); F31.9 Bipolar disorder, unspecified; G89.29 Other chronic pain; K57.90 Diverticulosis of intestine, part unspecified, without perforation or abscess without bleeding; F17.210 Nicotine dependence, cigarettes, uncomplicated; M79.661 Pain in right lower leg; M25.519 Pain in unspecified shoulder; J45.909 Unspecified asthma, uncomplicated
CPT/HCPCS: 73590; 74176; 80053; 81001; 84703; 85025; 99283; A4216

== ENCOUNTER 2022-05-13 19:38 | Emergency (ER) | payer MEDICAID, SELFPAY ==
[2022-05-13 19:39] VITALS: BP 153/98; PULSE 105; RESP 15; TEMP 36.3; O2SAT 96; BMI 34.4
--- NOTE | 2022-05-13 19:54 | EDS_ITS ---
HPI History of Present Illness Chief Complaint: Headache Detail of Chief Complaint: Headache that started this morning Informant: patient Narrative Narrative: Patient presents the emergency department with a headache that started this morning. Patient states that she woke up and had some spasm in her neck and pain due to arthritis. Patient subsequently developed a headache and she does have history of migraines. She states that her naproxen that she normally takes was . Patient has had 4 episodes of dry heaves and complains of photophobia. Patient states when she has to come to the ER she normally gets Toradol and that seems to help. She tells me she does not want anything for nausea as the nausea meds will make her feel good. Patient also states that she is had a cough for about a week and a half and has been around people that have had COVID-19. She has not taken a COVID-19 test in the last 2 weeks. Patient states that she has never had COVID and she has had one of the vaccines for COVID. [facility] Medical History Anemia Anxiety Arthritis ASTHMA Bipolar 1 disorder Chest pain Chronic cough Depression Difficulty balancing Fatigue GERD (gastroesophageal reflux disease) NECK/BACK PAIN Severe headache Shoulder pain Stomach ulcer Home Medications loratadine 10 mg capsule 10 mg PO QHS 09/03/18 [History Last Taken Unknown] multivitamin 1 ea PO DAILY 09/03/18 [History Last Taken Unknown] propranolol 10 mg tablet 10 mg PO DAILY 04/24/19 [History Last Taken Unknown] benztropine 0.5 mg tablet 0.5 mg PO DAILY 11/08/20 [History Last Taken Unknown] cholecalciferol (vitamin D3) 50 mcg (2,000 unit) tablet (Vitamin D3) 50 mcg PO DAILY 01/16/21 [History Last Taken Unknown] Lactobacillus rhamnosus GG 10 billion cell capsule (Culturelle) 1 cap PO DAILY 01/25/21 [History Last Taken Unknown] cariprazine 1.5 mg capsule (Vraylar) 1.5 mg PO DAILY 04/05/21 [History Last Taken Unknown] pantoprazole 40 mg tablet,delayed release 40 mg PO DAILY 04/05/21 [History Last Taken Unknown] naproxen 500 mg tablet 500 mg PO BID #14 tabs 05/13/22 [Rx Last Taken Unknown] Allergy/AdvReac Type Severity Reaction Status Date / Time influenza virus vaccine, Allergy Other Verified 05/13/22 19:44 specific [influenza virus vacc,specific] iodine Allergy Rash Verified 05/13/22 19:44 Latex, Natural Rubber Allergy Rash Verified 05/13/22 19:44 [place] Allergy Anaphylaxis Verified 05/13/22 19:44 meloxicam Allergy Other Verified 05/13/22 19:44 metronidazole [From Flagyl] Allergy Hives Verified 05/13/22 19:44 montelukast [From Singulair] Allergy Rash Verified 05/13/22 19:44 morphine Allergy Other Verified 05/13/22 19:44 Penicillins [PCN] Allergy Unknown Verified 05/13/22 19:44 Seasonal Allergies: Uncoded Allergy NEEDS Verified 05/13/22 19:44 FOLLOW-UP clindamycin AdvReac Nausea/Vom/ Verified 04/20/22 12:36 Diarrhea doxycycline AdvReac Nausea Verified 04/20/22 12:36 prednisone AdvReac Other Verified 04/20/22 12:36 ANTIBACTERIAL SOAP Allergy Hives Uncoded 04/20/22 12:36 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 04/20/22 12:36 Family History Brother Hypertension Bipolar affect, depressed Surgical History No pertinent past surgical history Social History Smoking Status: Current every day smoker tobacco type: cigarettes Tobacco: How many years used: 24 second hand exposure: Yes alcohol intake: never ROS ROS ED Constitutional Constitutional ED: Reports systems reviewed and no addt'l complaints, except as documented; Denies body ache(s), change in weight or chills Eyes Eyes: Denies acute decrease in peripheral vision, change in vision, double vision or loss of vision ENT ENT ED: Reports none; Denies ear pain, lip swelling, loss taste/smell, neck pain, otalgia or sore throat Cardiovascular Cardiovascular: Reports none; Denies abdominal pain, chest pain, chest pain with activity, leg edema, lightheadedness, palpitations, rapid heart rate or syncope Respiratory/Chest Respiratory/Chest: Reports none, cough and dry cough; Denies change in mental status, dyspnea, hemoptysis, shortness of breath at rest or shortness of breath with exertion Gastrointestinal Gastrointestinal: Reports none; Denies abdominal pain, change in stool character, diarrhea, hematemesis, hematochezia, melena, rectal bleeding or vomiting Genitourinary Genitourinary ED: Reports none; Denies abdominal discomfort, anuria, dysuria, genital pain or polyuria Musculoskeletal Musculoskeletal: Reports none; Denies arthralgias, back pain, difficulty walking, extremity pain, muscle weakness or myalgias Integumentary Reports none; Denies abscess or rash Neurologic Neurologic: Reports none and headache(s); Denies abnormal gait, confusion, focal weakness, frequent falls, loss of vision, numbness, paresthesias, radicular pain, vertigo or weakness Psychiatric Psychiatric: Reports systems reviewed and no addt'l complaints, except as documented and none; Denies behavioral changes, confusion, difficulty concentrating, hallucinations, suicidal ideation, tactile hallucinations or visual hallucinations Endocrine Endocrinology: Denies none, cold intolerance, excessive sweating, fatigue or heat intolerance Hematologic/Lymphatic Hematologic/Lymphatic: Reports none; Denies anemia, easy bleeding or easy bruising Allergic/Immunologic Allergic/Immunologic ED: Denies as per HPI, none, lip swelling, mouth swelling, throat swelling, tongue swelling or hives EXAM Physical Exam Const Vital Signs: 05/13/22 19:39 Temperature 97.3 F L Temperature Source Temporal Pulse Rate 105 H Respiratory Rate 15 Blood Pressure 153/98 H Blood Pressure Mean 116 Pulse Ox 96 Oxygen Delivery Method Room Air Positive well nourished and well developed General Appearance ED: well developed and NAD HEENT Reports TM's clear and moist mucous membranes normocephalic and atraumatic; Negative for trauma or tenderness Tympanic Membrane ED: Yes TM's clear Eyes PERRL and EOMs intact bilaterally General Eye ED: Negative for pale conjunctiva or scleral icterus Neck no lymphadenopathy, supple and no JVD General: Negative for tenderness Chest Wall inspection of chest normal and palpation of chest normal Chest: Negative for tenderness Resp normal respiratory effort and clear to auscultation bilaterally Effort and Inspection: Negative for respiratory distress or pain with movement Auscultation: Negative for rhonchi, wheezes or diminished lung sounds Cardio regular rate, regular rhythm, S1 normal heart sound, S2 normal heart sound and no murmurs Peripheral Pulses: pulses 2+ throughout GI normal to inspection, nondistended, normoactive bowel sounds, soft to palpation, non-tender, non-distended and no masses Back/Spine no CVA tenderness and no thoracic nor lumbar tenderness Extremity normal to inspection General Extremety ED: Negative for edema General Extremity: Negative for edema Neuro oriented x3, CN's II-XII intact bilaterally, no sensory deficits noted and gait normal Neuro Narrative: Finger-nose and heel brito testing within normal limits, negative Romberg, negative , Fundi benign Sensorium / Orientation: awake, alert, oriented to person, oriented to place and oriented to time Motor Exam: strength 5/5 throughout and strength abnormal Psych mental status grossly normal Skin no rashes or lesions noted and no wounds MDM MDM MDM Narrative Medical decision making narrative: Patient was given a shot of Toradol 60 mg IM and she had good resolution of her headache. Patient had a COVID-19 test that was negative. At this point she will be given a prescription for naproxen. She is advised to follow-up with her primary care physician in 3 to 5 days. Lab Data Attestation: I reviewed the patient's lab results. Discharge Plan Triage Chief Complaint: Headache ED Provider: Ganga Chambers Dx/Rx/DC Orders Clinical Impression: Migraine headache, Viral URI Instructions: ED, Migraine (Classical), ED URI, Viral, No Abx (Adult) Prescriptions: New naproxen 500 mg tablet 500 mg PO BID Qty: 14 0RF No Action multivitamin 1 EACH tablet 1 ea PO DAILY loratadine 10 MG capsule 10 mg PO QHS propranolol 10 MG tablet 10 mg PO DAILY benztropine 0.5 MG tablet 0.5 mg PO DAILY cholecalciferol (vitamin D3) [Vitamin D3] 50 mcg (2,000 unit) Tablet 50 mcg PO DAILY Culturelle 10 billion cell Capsule 1 cap PO DAILY pantoprazole 40 mg Tablet,Delayed Release (Dr/Ec) 40 mg PO DAILY Vraylar 1.5 mg Capsule 1.5 mg PO DAILY Primary Care Provider: Domenic Mejia Referrals: Domenic Mejia MD [Primary Care Provider] - 3-5 Days Disposition Disposition: Home, Self Care
[2022-05-13] MEDS: Ketorolac 60 MG/2 ML Vial IM (20:02)
== END 2022-05-13 21:12 | disposition home or self-care (01) ==
PROVIDERS: Emergency Provider Emergency Medicine; PCP Family Medicine; Visit Provider Emergency Medicine
DX: G43.909 Migraine, unspecified, not intractable, without status migrainosus (principal); F31.9 Bipolar disorder, unspecified; J06.9 Acute upper respiratory infection, unspecified; F17.210 Nicotine dependence, cigarettes, uncomplicated; F41.9 Anxiety disorder, unspecified
CPT/HCPCS: 87811; 96372; 99284

== ENCOUNTER 2022-05-20 22:13 | Outpatient (CLI) | payer MEDICAID, SELFPAY ==
[2022-05-20 20:15] VITALS: BP 159/110; PULSE 115; RESP 18; TEMP 36.8; O2SAT 97; BMI 34.4
--- NOTE | 2022-05-20 22:04 | ED.RN ---
pt LWBS, wanted results of COVID test printed- given to patient.
== END 2022-05-20 22:14 | disposition left against medical advice (07) ==
LOC: ED 22:14
PROVIDERS: PCP Family Medicine
DX: Z20.822 Contact with and (suspected) exposure to COVID-19 (principal)
CPT/HCPCS: 87811; J7030; A4216

== ENCOUNTER 2022-06-09 00:42 | Emergency (ER) | payer MEDICAID, SELFPAY ==
[2022-06-09 00:51] VITALS: RESP 17
[2022-06-09 00:52] VITALS: BP 143/78; PULSE 77; RESP 17; TEMP 36.7; O2SAT 99; BMI 35.5
--- NOTE | 2022-06-09 01:33 | EDS_ITS ---
HPI History of Present Illness Chief Complaint: Upper Extremity Injury Informant: patient Narrative Narrative: Patient states she has had 3 months or more of right shoulder pain, mostly in the posterior aspect, hurts a lot to do internal rotation and abduction. She has seen her chiropractor for this. Also has been having right arm pain for a little less time than that, and now the right wrist for the past month or so. All of this has been more painful in the past 5 days which is why she presents to the ER. She takes naproxen almost every day for multiple musculoskeletal painful issues including arthritis and back pain related to her scoliosis. She denies any numbness or tingling or weakness. She states that my chiropractor told me I probably have carpal tunnel in both wrists. She is right-hand dominant. When asked about repetitive motions, in the past weekend in the past 3 to 4 months, she states nothing other than smoking and texting. [facility] Medical History Anemia Anxiety Arthritis ASTHMA Bipolar 1 disorder Chest pain Chronic cough Depression Difficulty balancing Fatigue GERD (gastroesophageal reflux disease) NECK/BACK PAIN Severe headache Shoulder pain Stomach ulcer Home Medications loratadine 10 mg capsule 10 mg PO QHS 09/03/18 [History Last Taken Unknown] multivitamin 1 ea PO DAILY 09/03/18 [History Last Taken Unknown] propranolol 10 mg tablet 10 mg PO DAILY 04/24/19 [History Last Taken Unknown] benztropine 0.5 mg tablet 0.5 mg PO DAILY 11/08/20 [History Last Taken Unknown] cholecalciferol (vitamin D3) 50 mcg (2,000 unit) tablet (Vitamin D3) 50 mcg PO DAILY 01/16/21 [History Last Taken Unknown] Lactobacillus rhamnosus GG 10 billion cell capsule (Culturelle) 1 cap PO DAILY 01/25/21 [History Last Taken Unknown] cariprazine 1.5 mg capsule (Vraylar) 1.5 mg PO DAILY 04/05/21 [History Last Taken Unknown] pantoprazole 40 mg tablet,delayed release 40 mg PO DAILY 04/05/21 [History Last Taken Unknown] naproxen 500 mg tablet 500 mg PO BID #14 tabs 05/13/22 [Rx Last Taken Unknown] Allergy/AdvReac Type Severity Reaction Status Date / Time influenza virus vaccine, Allergy Other Verified 05/13/22 19:44 specific [influenza virus vacc,specific] iodine Allergy Rash Verified 05/13/22 19:44 Latex, Natural Rubber Allergy Rash Verified 05/13/22 19:44 [place] Allergy Anaphylaxis Verified 05/13/22 19:44 meloxicam Allergy Other Verified 05/13/22 19:44 metronidazole [From Flagyl] Allergy Hives Verified 05/13/22 19:44 montelukast [From Singulair] Allergy Rash Verified 05/13/22 19:44 morphine Allergy Other Verified 05/13/22 19:44 Penicillins [PCN] Allergy Unknown Verified 05/13/22 19:44 Seasonal Allergies: Uncoded Allergy NEEDS Verified 05/13/22 19:44 FOLLOW-UP clindamycin AdvReac Nausea/Vom/ Verified 04/20/22 12:36 Diarrhea doxycycline AdvReac Nausea Verified 04/20/22 12:36 prednisone AdvReac Other Verified 04/20/22 12:36 ANTIBACTERIAL SOAP Allergy Hives Uncoded 04/20/22 12:36 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 Hives Uncoded 04/20/22 12:36 Family History Brother Hypertension Bipolar affect, depressed Surgical History No pertinent past surgical history Social History Smoking Status: Current every day smoker tobacco type: cigarettes Tobacco: How many years used: 24 second hand exposure: Yes alcohol intake: never ROS ROS ED Constitutional Constitutional ED: Denies chills or fever(s) Musculoskeletal Musculoskeletal: Reports back pain, extremity pain and neck pain Integumentary Denies Abrasions, rash or wounds Neurologic Neurologic: Denies paresthesias or weakness EXAM Physical Exam Const Vital Signs: 06/09/22 00:51 06/09/22 00:52 Temperature 98.1 F Temperature Source Temporal Pulse Rate 77 Respiratory Rate 17 17 Blood Pressure 143/78 H Blood Pressure Mean 99 Pulse Ox 99 Oxygen Delivery Method Room Air Positive well nourished and well developed General Appearance ED: well developed and NAD Neck full ROM and supple Back/Spine normal ROM and normal to inspection Extremity normal to inspection and full ROM Extremity Narrative: Full range of motion of the right wrist, negative Tinel at the median tunnel and the ulnar tunnel, and negative Phalen test. Increased pain in the shoulder with internal rotation but not external rotation, and the pain is posterior more cranial to the scapula consistent with trapezius, with less pain in the area of the teres minor. Nontender throughout the right upper extremity when at rest including the subacromial shoulder and anteriorly and at the biceps, coracoid process. Neuro oriented x3, no focal motor deficits and no sensory deficits noted Sensorium / Orientation: alert Psych mental status grossly normal and thought process normal Skin no wounds Skin Narrative: Dry with excoriations throughout both hands Rashes: no rashes MDM MDM MDM Narrative Medical decision making narrative: I do not think the patient needs any emergent radiography. I think referring her to orthopedics is reasonable, she is concerned about a rotator cuff, certainly that is in the differential diagnosis here, as is arthritis which she already has multiple other areas, as well as cervical radiculopathy which I think is less likely since she is making the pain worse with movements about the shoulder girdle, although a C5-C6 radiculopathy is also possible. It is notable she is not having any tingling, and with the exam findings, I do not think she has carpal tunnel syndrome which I discussed with her. She has an unknown reaction to meloxicam. She can take other pain medications, and she states prednisone did not go well because of her bipolar and gave her severe highs and lows and the risks outweigh the potential benefits of that so we will just stick with naproxen and Tylenol for now and she is comfortable with that and following up with orthopedics. Discharge Plan Triage Chief Complaint: Upper Extremity Injury ED Provider: Derrick Gallegos Dx/Rx/DC Orders Clinical Impression: Acute pain of right shoulder, Arm pain, right, Acute pain of right wrist Instructions: ED Shoulder Pain, Uncertain Cause Prescriptions: No Action multivitamin 1 EACH tablet 1 ea PO DAILY loratadine 10 MG capsule 10 mg PO QHS propranolol 10 MG tablet 10 mg PO DAILY benztropine 0.5 MG tablet 0.5 mg PO DAILY cholecalciferol (vitamin D3) [Vitamin D3] 50 mcg (2,000 unit) Tablet 50 mcg PO DAILY Culturelle 10 billion cell Capsule 1 cap PO DAILY pantoprazole 40 mg Tablet,Delayed Release (Dr/Ec) 40 mg PO DAILY Vraylar 1.5 mg Capsule 1.5 mg PO DAILY naproxen 500 mg tablet 500 mg PO BID Qty: 14 0RF Primary Care Provider: Domenic Mejia Referrals: Domenic Mejia MD [Primary Care Provider] - Karson Ness MD [Med Staff - Active Staff] - 1 Week if not improving (call for appt for your shoulder) Activity Restrictions/Additional Instructions: Your chart has record of an allergy/reaction to meloxicam but the reaction is unknown; this might be a safer medication to take daily for longer periods of time then naproxen. Discussed with your doctor. Disposition Disposition: Home, Self Care
[2022-06-09 01:37] VITALS: BP 120/74; PULSE 74; RESP 17; O2SAT 99
[2022-06-09] MEDS: Acetaminophen 500 MG Tablet 1000 MG PO (01:37)
== END 2022-06-09 01:38 | disposition home or self-care (01) ==
PROVIDERS: Emergency Provider Emergency Medicine; PCP Family Medicine; Visit Provider Emergency Medicine
DX: M25.511 Pain in right shoulder (principal); F31.9 Bipolar disorder, unspecified; M25.531 Pain in right wrist; M79.601 Pain in right arm; F17.210 Nicotine dependence, cigarettes, uncomplicated
CPT/HCPCS: 99283

== ENCOUNTER 2022-07-03 10:28 | Emergency (ER) | payer MEDICAID, SELFPAY ==
[2022-07-03 10:29] VITALS: BP 143/94; PULSE 110; RESP 16; TEMP 36; O2SAT 100; BMI 35.7
--- NOTE | 2022-07-03 10:36 | EDS_ITS ---
HPI History of Present Illness Chief Complaint: General Illness Informant: patient Onset/Context/Timing Onset: Days (5) Context: Gradual Onset Quality: Loose nonbloody diarrhea Current Severity: Moderate Maximum Severity: Moderate Worsened by: Nothing Relieved by: Nothing but tried no medications Associated Symptoms Associated Symptoms: Fatigue, malaise Narrative Narrative: Patient has had diarrhea 2 or 3 times per day for the last for 5 days. No fevers or chills. She had a sick contact friend at [facility] who had similar symptoms recently. No travel out of the area. No recent antibiotics of any kind. No history of C. difficile that she knows of. Has seen no blood. Having no abdominal pain. Has had a couple episodes of emesis, 1/day on average. No blood or coffee grounds. Has tried no medications for any of this. States this morning she had alteration of her taste, states she ate some cereal and it tasted like dish soap but states now her tongue seems more normal. [facility] Medical History Anemia Anxiety Arthritis ASTHMA Bipolar 1 disorder Chest pain Chronic cough Depression Difficulty balancing Fatigue GERD (gastroesophageal reflux disease) NECK/BACK PAIN Severe headache Shoulder pain Stomach ulcer Home Medications loratadine 10 mg capsule 10 mg PO QHS 09/03/18 [History Last Taken Unknown] multivitamin 1 ea PO DAILY 09/03/18 [History Last Taken Unknown] propranolol 10 mg tablet 10 mg PO DAILY 04/24/19 [History Last Taken Unknown] benztropine 0.5 mg tablet 0.5 mg PO DAILY 11/08/20 [History Last Taken Unknown] cholecalciferol (vitamin D3) 50 mcg (2,000 unit) tablet (Vitamin D3) 50 mcg PO DAILY 01/16/21 [History Last Taken Unknown] Lactobacillus rhamnosus GG 10 billion cell capsule (Culturelle) 1 cap PO DAILY 01/25/21 [History Last Taken Unknown] cariprazine 1.5 mg capsule (Vraylar) 1.5 mg PO DAILY 04/05/21 [History Last Taken Unknown] pantoprazole 40 mg tablet,delayed release 40 mg PO DAILY 04/05/21 [History Last Taken Unknown] naproxen 500 mg tablet 500 mg PO BID #14 tabs 05/13/22 [Rx Last Taken Unknown] Allergy/AdvReac Type Severity Reaction Status Date / Time influenza virus vaccine, Allergy Other Verified 05/13/22 19:44 specific [influenza virus vacc,specific] iodine Allergy Rash Verified 05/13/22 19:44 Latex, Natural Rubber Allergy Rash Verified 05/13/22 19:44 [place] Allergy Anaphylaxis Verified 05/13/22 19:44 meloxicam Allergy Other Verified 05/13/22 19:44 metronidazole [From Flagyl] Allergy Hives Verified 05/13/22 19:44 montelukast [From Singulair] Allergy Rash Verified 05/13/22 19:44 morphine Allergy Other Verified 05/13/22 19:44 Penicillins [PCN] Allergy Unknown Verified 05/13/22 19:44 Seasonal Allergies: Uncoded Allergy NEEDS Verified 05/13/22 19:44 FOLLOW-UP clindamycin AdvReac Nausea/Vom/ Verified 04/20/22 12:36 Diarrhea doxycycline AdvReac Nausea Verified 04/20/22 12:36 prednisone AdvReac Other Verified 04/20/22 12:36 ANTIBACTERIAL SOAP Allergy Hives Uncoded 04/20/22 12:36 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 Uncoded 04/20/22 12:36 Family History Brother Hypertension Bipolar affect, depressed Surgical History No pertinent past surgical history Social History Smoking Status: Current every day smoker tobacco type: cigarettes Tobacco: How many years used: 24 second hand exposure: Yes alcohol intake: never ROS ROS ED Constitutional Constitutional ED: Reports fatigue and malaise; Denies chills or fever(s) Eyes Eyes: Denies change in vision or diplopia ENT ENT ED: Reports as per HPI and loss taste/smell; Denies rhinorrhea or sore throat Cardiovascular Cardiovascular: Denies chest pain or palpitations Respiratory/Chest Respiratory/Chest: Reports cough; Denies dyspnea Gastrointestinal Gastrointestinal: Reports diarrhea, nausea and vomiting; Denies abdominal pain Genitourinary Genitourinary ED: Denies dysuria or hematuria Musculoskeletal Musculoskeletal: Denies back pain or neck pain Integumentary Denies abscess or rash Neurologic Neurologic: Denies headache(s), paresthesias or weakness Psychiatric Psychiatric: Denies anxiety or suicidal thoughts EXAM Physical Exam Const Vital Signs: 07/03/22 10:29 07/03/22 10:34 Temperature 96.8 F L Temperature Source Oral Pulse Rate 110 H Respiratory Rate 16 Respiratory Effort Normal Non-Labored Respiratory Pattern Normal Blood Pressure 143/94 H Blood Pressure Mean 110 Pulse Ox 100 Oxygen Delivery Method Room Air Positive well nourished and well developed General Appearance ED: well developed and NAD HEENT Reports moist mucous membranes normocephalic and atraumatic Eyes PERRL and EOMs intact bilaterally Neck full ROM and supple Resp normal respiratory effort and clear to auscultation bilaterally Cardio regular rate, regular rhythm and no murmurs Rate: tachycardic GI non-tender and non-distended Auscultation: normoactive bowel sounds Palpation: soft Back/Spine no CVA tenderness General Back: other FROM Extremity normal to inspection General Extremety ED: Negative for edema, pulses abnormal or tenderness General Extremity: Negative for edema or pulses abnormal Neuro oriented x3, CN's II-XII intact bilaterally and no sensory deficits noted Sensorium / Orientation: awake and alert Motor Exam: strength 5/5 throughout Skin no rashes or lesions noted and no wounds MDM MDM MDM Narrative Medical decision making narrative: Labs including liver enzymes are normal. Rapid COVID is negative. Patient was given a liter of IV fluids, she was offered Zofran but she refused it for some reason. Reassured that this is likely viral, advised that she can take antidiarrheals such as Imodium as needed, she does not want nausea medication, supportive care advised and follow-up if symptoms do not resolve after the weekend. Lab Data Attestation: I reviewed the patient's lab results. Labs: Laboratory Results - last 24 hr 07/03/22 07/03/22 10:53 10:53 WBC 9.5 RBC 5.25 Hgb 15.3 H Hct 44.7 MCV 85.1 MCH 29.1 MCHC 34.2 RDW Std Deviation 40.2 RDW Coeff of Lev 12.9 Plt Count 203 MPV 10.4 Immature Gran % (Auto) 0.300 Neut % (Auto) 66.8 Lymph % (Auto) 25.3 [place] % (Auto) 4.5 Eos % (Auto) 2.7 Baso % (Auto) 0.4 Absolute Neuts (auto) 6.3 Absolute Lymphs (auto) 2.40 Nucleated RBC % 0 Sodium 139 Potassium 3.7 Chloride 107 Carbon Dioxide 27.0 Anion Gap 5 BUN 13 Creatinine 0.88 Estim Creat Clear Calc 80.16 Est GFR (MDRD) Af Amer 90 Est GFR (MDRD) Non-Af 75 BUN/Creatinine Ratio 14.8 Glucose 110 H Calcium 9.0 Total Bilirubin 0.30 AST 13 L ALT 27 Alkaline Phosphatase 92 Total Protein 7.0 Albumin 3.5 Globulin 3.5 Albumin/Globulin Ratio 1.0 Discharge Plan Triage Chief Complaint: General Illness ED Provider: Derrick Gallegos Dx/Rx/DC Orders Clinical Impression: Gastroenteritis Instructions: Viral Gastroenteritis Prescriptions: No Action multivitamin 1 EACH tablet 1 ea PO DAILY loratadine 10 MG capsule 10 mg PO QHS propranolol 10 MG tablet 10 mg PO DAILY benztropine 0.5 MG tablet 0.5 mg PO DAILY cholecalciferol (vitamin D3) [Vitamin D3] 50 mcg (2,000 unit) Tablet 50 mcg PO DAILY Culturelle 10 billion cell Capsule 1 cap PO DAILY pantoprazole 40 mg Tablet,Delayed Release (Dr/Ec) 40 mg PO DAILY Vraylar 1.5 mg Capsule 1.5 mg PO DAILY naproxen 500 mg tablet 500 mg PO BID Qty: 14 0RF Primary Care Provider: Domenic Mejia Referrals: Domenic Mejia MD [Primary Care Provider] - 3-5 Days if not improving Activity Restrictions/Additional Instructions: Get some Imodium to use as needed for your diarrhea. Drink plenty of fluids to prevent dehydration. Disposition Disposition: Home, Self Care
[2022-07-03] MEDS: 0.9% Normal Saline 1,000 ML 1000 ML IV (10:49)
[2022-07-03 10:59] LABS: Absolute Neutrophil Count 6.3 X10^3/uL (2.0-7.7); Basophil# 0.04 X10^3/uL; Basophil% 0.4 % (0-1); Eosinophil# 0.26 X10^3/uL; Eosinophils% 2.7 % (0-5); Hematocrit 44.7 % (37-47); Hemoglobin 15.3 g/dL (12.0-15.0); Lymphocyte % 25.3 % (19-41); Mean Corp Hgb Conc 34.2 g/dL (32-36); Mean Corpuscular Hgb 29.1 pg (27.0-32.0); Mean Corpuscular Volume 85.1 fL (81-99); Mean Platelet Vol. 10.4 fl (6.2-12.0); Monocyte# 0.43 X10^3/uL; Monocyte% 4.5 % (0-10); NRBC Flagged by Analyzer 0 % (0-5); Neutrophil # 6.31 X10^3/uL (2.7-7.7); Neutrophil % 66.8 % (47-70); Platelet Count 203 K/mm3 (150-450); RBC Distribution Width CV 12.9 % (11.6-14.6); RBC Distribution Width SD 40.2 fl (35.1-43.9); Red Blood Count 5.25 M/mm3 (4.2-5.4); White Blood Count 9.5 K/mm3 (4.4-11.0)
[2022-07-03 11:15] LABS: AST(SGOT) 13 U/L (15-37); Alanine Aminotransfer ALT/SGPT 27 U/L (13-56); Albumin, Serum 3.5 g/dL (3.2-5.0); Alkaline Phosphatase 92 U/L (45-117); Anion Gap 5 (5-15); BUN 13 mg/dL (7-18); BUN/Creat Ratio 14.8 RATIO (10-20); Chloride 107 mmol/L (98-107); Creatinine, Serum 0.88 mg/dL (0.55-1.02); EST Glomerular Filtration Rate 75 mL/min (>60); Est Glom Filt Rate - Afr Amer 90 mL/min (>60); Estimated Creatinine Clearance 80.16 ml/min; Globulin 3.5 g/dL (2.2-4.2); Glucose 110 mg/dL (74-106); Potassium 3.7 mmol/L (3.5-5.1); Sodium Level 139 mmol/L (136-145)
[2022-07-03 11:32] VITALS: BP 124/71; PULSE 67; RESP 15; O2SAT 98
== END 2022-07-03 11:34 | disposition home or self-care (01) ==
LOC: ED 11:26
PROVIDERS: Emergency Provider Emergency Medicine; PCP Family Medicine; Visit Provider Emergency Medicine
DX: K52.9 Noninfective gastroenteritis and colitis, unspecified (principal); F31.9 Bipolar disorder, unspecified; F17.210 Nicotine dependence, cigarettes, uncomplicated
CPT/HCPCS: 80053; 85025; 87811; 96361; 96374; 99285; J2405

== ENCOUNTER 2022-07-17 05:25 | Emergency (ER) | payer MEDICAID, SELFPAY ==
[2022-07-17 05:26] VITALS: BP 129/85; PULSE 102; RESP 18; TEMP 36.6; O2SAT 95
[2022-07-17 05:27] VITALS: BP 129/85; PULSE 102; RESP 18; TEMP 36.6; O2SAT 95; BMI 35.7
[2022-07-17] MEDS: 0.9% Normal Saline 1,000 ML 999 ML IV (05:46)
[2022-07-17] MEDS: Ketorolac 30 MG/ML Syringe IV (05:46)
--- NOTE | 2022-07-17 06:24 | EX.ED.DYSGE1 ---
HPI History of Present Illness Chief Complaint: Headache Narrative Narrative: Patient is a 41-year-old female with past medical history of bipolar disorder COPD and migraine headache. She states that she believes she slept wrong and developed a knot along the back of her head which has led her to have a migraine. She states that she has light sensitivity and nausea which is consistent with her previous headaches. She denies any fevers or chills or trauma. She states she has tried her normal [id number] medication without symptom improvement and therefore comes in for evaluation [facility] Medical History Anemia Anxiety Arthritis ASTHMA Bipolar 1 disorder Chest pain Chronic cough Depression Difficulty balancing Fatigue GERD (gastroesophageal reflux disease) Nausea and vomiting NECK/BACK PAIN Right leg pain Severe headache Shoulder pain Stomach ulcer Home Medications loratadine 10 mg capsule 10 mg PO QHS 09/03/18 [History Last Taken Unknown] multivitamin 1 ea PO DAILY 09/03/18 [History Last Taken Unknown] propranolol 10 mg tablet 10 mg PO DAILY 04/24/19 [History Last Taken Unknown] benztropine 0.5 mg tablet 0.5 mg PO DAILY 11/08/20 [History Last Taken Unknown] cholecalciferol (vitamin D3) 50 mcg (2,000 unit) tablet (Vitamin D3) 50 mcg PO DAILY 01/16/21 [History Last Taken Unknown] Lactobacillus rhamnosus GG 10 billion cell capsule (Culturelle) 1 cap PO DAILY 01/25/21 [History Last Taken Unknown] cariprazine 1.5 mg capsule (Vraylar) 1.5 mg PO DAILY 04/05/21 [History Last Taken Unknown] pantoprazole 40 mg tablet,delayed release 40 mg PO DAILY 04/05/21 [History Last Taken Unknown] naproxen 500 mg tablet 500 mg PO BID #14 tabs 05/13/22 [Rx Last Taken Unknown] albuterol sulfate 90 mcg/actuation aerosol inhaler 1 inh inhalation ONCE 07/14/22 [History Last Taken Unknown] beclomethasone dipropionate 80 mcg/actuation HFA breath activated aerosol 1 inh inhalation BID 07/14/22 [History Last Taken Unknown] cyclobenzaprine 10 mg tablet 10 mg PO HS 07/14/22 [History Last Taken Unknown] diclofenac sodium 1 % topical gel (Arthritis Pain (diclofenac)) 2 g topical ONCE 07/14/22 [History Last Taken Unknown] medroxyprogesterone 150 mg/mL intramuscular suspension (Depo-Provera) 150 mg IM Q12W 07/14/22 [History Last Taken Unknown] promethazine 25 mg tablet 25 mg PO TID PRN 07/14/22 [History Last Taken Unknown] ketorolac 10 mg tablet 10 mg PO 4X/DAY PRN PRN pain 5 days #20 tabs 07/17/22 [Rx Last Taken Unknown] Allergy/AdvReac Type Severity Reaction Status Date / Time influenza virus vaccine, Allergy Other Verified 07/14/22 09:49 specific [influenza virus vacc,specific] iodine Allergy Rash Verified 07/14/22 09:49 Latex, Natural Rubber Allergy Rash Verified 07/14/22 09:49 [place] Allergy Anaphylaxis Verified 07/14/22 09:49 meloxicam Allergy Other Verified 07/14/22 09:49 metronidazole [From Flagyl] Allergy Hives Verified 07/14/22 09:49 montelukast [From Singulair] Allergy Rash Verified 07/14/22 09:49 morphine Allergy Other Verified 07/14/22 09:49 Penicillins [PCN] Allergy Unknown Verified 07/14/22 09:49 Seasonal Allergies: Uncoded Allergy NEEDS Verified 07/14/22 09:49 FOLLOW-UP clindamycin AdvReac Nausea/Vom/ Verified 07/14/22 09:49 Diarrhea doxycycline AdvReac Nausea Verified 07/14/22 09:49 prednisone AdvReac Other Verified 07/14/22 09:49 ANTIBACTERIAL SOAP Allergy Hives Uncoded 07/14/22 09:49 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 07/14/22 09:49 Family History Brother Hypertension Bipolar affect, depressed Surgical History No pertinent past surgical history Social History Smoking Status: Current every day smoker tobacco type: cigarettes Tobacco: How many years used: 24 second hand exposure: Yes alcohol intake: never ROS ROS ED Constitutional Constitutional ED: Denies chills or fever(s) Eyes Eyes: Reports other Details: Positive photophobia ENT ENT ED: Denies sore throat Cardiovascular Cardiovascular: Denies chest pain Respiratory/Chest Respiratory/Chest: Denies cough or dyspnea Gastrointestinal Gastrointestinal: Reports nausea; Denies abdominal pain, diarrhea or vomiting Genitourinary Genitourinary ED: Denies dysuria Musculoskeletal Musculoskeletal: Denies myalgias or neck pain Integumentary Denies rash Neurologic Neurologic: Reports headache(s); Denies paresthesias or weakness Hematologic/Lymphatic Hematologic/Lymphatic: Denies easy bleeding or easy bruising EXAM Physical Exam Const Vital Signs: 07/17/22 05:27 07/17/22 05:26 Temperature 97.8 F 97.8 F Temperature Source Temporal Temporal Pulse Rate 102 H 102 H Respiratory Rate 18 18 Blood Pressure 129/85 H 129/85 H Blood Pressure Mean 99 99 Pulse Ox 95 95 Oxygen Delivery Method Room Air Room Air Positive well nourished and well developed General Appearance ED: well developed Eyes PERRL and EOMs intact bilaterally Neck supple Neck Narrative: No bony deformity or step-off of the cervical spine no midline pain on palpation No meningeal signs noted Resp normal respiratory effort and clear to auscultation bilaterally Cardio regular rate and regular rhythm Extremity normal to inspection Neuro oriented x3 and CN's II-XII intact bilaterally Neuro Narrative: Cranial nerves II through XII are grossly intact there are no focal neurologic deficit. No pronator drift no dysmetria no truncal ataxia. NIH stroke scale score of 0. Sensorium / Orientation: alert Psych mental status grossly normal Skin no rashes or lesions noted MDM MDM MDM Narrative Medical decision making narrative: Patient presented to the ER with stable vitals and a normal neurologic exam. She had no report or signs of trauma and no physical exam findings concerning for an infectious process so I felt no need for imaging or laboratory studies. Patient was given IV fluids and IV Toradol. We did discuss further treatment options with Rory Anne and even Norflex as I felt a component of her headache was musculoskeletal in nature. Patient states she does not want those other medications given. After the IV fluids and Toradol she was reassessed her neuro exam remains normal and she reports resolution of her headache and therefore patient is otherwise safe for discharge. Discharge Plan Triage Chief Complaint: Headache ED Provider: David Webb Dx/Rx/DC Orders Clinical Impression: Cephalgia, Bipolar 1 disorder Instructions: ED Headache Unspecified Prescriptions: New ketorolac 10 mg tablet 10 mg PO 4X/DAY PRN PRN (Reason: pain) 5 Days Qty: 20 0RF No Action albuterol sulfate 90 mcg/actuation HFA aerosol inhaler 1 inh inhalation ONCE beclomethasone dipropionate 80 mcg/actuation HFA aerosol breath activated 1 inh inhalation BID cyclobenzaprine 10 mg tablet 10 mg PO HS diclofenac sodium [Arthritis Pain (diclofenac)] 1 % gel 2 g topical ONCE Rx Instructions: apply to single elbow, wrist or hand; for hand includes palm/fingers/back of hand medroxyprogesterone [Depo-Provera] 150 mg/mL suspension 150 mg IM Q12W promethazine 25 mg tablet 25 mg PO TID PRN multivitamin 1 EACH tablet 1 ea PO DAILY loratadine 10 MG capsule 10 mg PO QHS propranolol 10 MG tablet 10 mg PO DAILY benztropine 0.5 MG tablet 0.5 mg PO DAILY cholecalciferol (vitamin D3) [Vitamin D3] 50 mcg (2,000 unit) Tablet 50 mcg PO DAILY [place] 10 billion cell Capsule 1 cap PO DAILY pantoprazole 40 mg Tablet,Delayed Release (Dr/Ec) 40 mg PO DAILY Vraylar 1.5 mg Capsule 1.5 mg PO DAILY naproxen 500 mg tablet 500 mg PO BID Qty: 14 0RF Primary Care Provider: Domenic Mejia Referrals: Domenic Mejia MD [Primary Care Provider] - Activity Restrictions/Additional Instructions: As Toradol has helped your headache in the ER I will prescribe it for you orally at home. If you begin taking the Toradol please do not take any extra Motrin ibuprofen Aleve or naproxen as this could cause stomach irritation and kidney injury. Disposition Disposition: Home, Self Care
== END 2022-07-17 06:42 | disposition home or self-care (01) ==
PROVIDERS: Emergency Provider Emergency Medicine; PCP Family Medicine; Visit Provider Emergency Medicine
DX: R51.9 Headache, unspecified (principal); J44.9 Chronic obstructive pulmonary disease, unspecified; F31.9 Bipolar disorder, unspecified; F17.210 Nicotine dependence, cigarettes, uncomplicated
CPT/HCPCS: 96361; 96374; 99285; J7030

== ENCOUNTER 2022-07-27 16:21 | Emergency (ER) | payer MEDICAID, SELFPAY ==
[2022-07-27 16:22] VITALS: BP 136/101; PULSE 121; RESP 14; TEMP 35.6; O2SAT 97; BMI 34.4
--- NOTE | 2022-07-27 16:26 | EKG12_ITS ---
Test Reason : CP Blood Pressure : / mmHG Vent. Rate : 104 BPM Atrial Rate : 104 BPM P-R Int : 146 ms QRS Dur : 084 ms QT Int : 326 ms P-R-T Axes : 056 044 027 degrees QTc Int : 428 ms Sinus tachycardia Possible Left atrial enlargement Borderline ECG Confirmed by GABRIEL KHAN, KYM ([id number]), video news editor LOUISA ROBIN ([id number]) on 07/28/2022 9:25:25 AM Referred By: WILDER Confirmed By:KYM RIOS MD
--- NOTE | 2022-07-27 17:31 | ED.RN ---
im going to go. after waiting an hour and a half i feel better. maybe it was something i ate or drank.
== END 2022-07-27 17:31 | disposition left against medical advice (07) ==
LOC: ED 17:55
PROVIDERS: PCP Family Medicine
DX: R07.9 Chest pain, unspecified (principal)
CPT/HCPCS: 93005

== ENCOUNTER 2022-07-28 04:42 | Emergency (ER) | payer MEDICAID, SELFPAY ==
[2022-07-28 04:44] VITALS: BP 122/69; PULSE 122; RESP 19; TEMP 36.6; O2SAT 96; BMI 36.3
--- NOTE | 2022-07-28 04:54 | EDS_ITS ---
HPI HPI - GI History of Present Illness Chief Complaint: Abd Pain Informant: patient Abdominal Pain/Flank Pain Onset: Yesterday Context: Sudden Onset Timing: Intermittent and Lasts (Approximately 2 hours) Quality: Sharp Location: Epigastric and - (substernal) Worsened by: Nothing Relieved by: Nothing Nausea/Vomiting/Emesis GI Symptom: Negative for Nausea or Vomiting Diarrhea/Melena/Hematochezia GI Symptom: Negative for Diarrhea, Melena or Hematochezia Associated Symptoms Associated Symptoms: Negative for Dysuria, Frequency or Hematuria Narrative Narrative: Patient presents with lower chest pain and heartburn that has been intermittent over the last 24 hours. Patient states it comes on and lasts for approximately 2 hours. Patient states it then resolves. Patient describes it as sharp and pressure. Patient states it is over the lower substernal area. Patient states nothing makes it worse and nothing makes it better. Patient admits to a recent cough. Patient denies any sputum production. Patient denies any fevers or chills. Patient denies any nausea or vomiting. [facility] Medical History Anemia Anxiety Arthritis ASTHMA Bipolar 1 disorder Chest pain Chronic cough Depression Difficulty balancing Fatigue GERD (gastroesophageal reflux disease) Nausea and vomiting NECK/BACK PAIN Right leg pain Severe headache Shoulder pain Stomach ulcer Home Medications loratadine 10 mg capsule 10 mg PO QHS 09/03/18 [History Last Taken Unknown] multivitamin 1 ea PO DAILY 09/03/18 [History Last Taken Unknown] propranolol 10 mg tablet 10 mg PO DAILY 04/24/19 [History Last Taken Unknown] benztropine 0.5 mg tablet 0.5 mg PO DAILY 11/08/20 [History Last Taken Unknown] cholecalciferol (vitamin D3) 50 mcg (2,000 unit) tablet (Vitamin D3) 100 mcg PO DAILY 01/16/21 [History Last Taken Unknown] Lactobacillus rhamnosus GG 10 billion cell capsule (Culturelle) 1 cap PO DAILY 01/25/21 [History Last Taken Unknown] cariprazine 1.5 mg capsule (Vraylar) 1.5 mg PO DAILY 04/05/21 [History Last Taken Unknown] naproxen 500 mg tablet 500 mg PO BID #14 tabs 05/13/22 [Rx Last Taken Unknown] albuterol sulfate 90 mcg/actuation aerosol inhaler 1 inh inhalation ONCE 07/14/22 [History Last Taken Unknown] beclomethasone dipropionate 80 mcg/actuation HFA breath activated aerosol 1 inh inhalation BID 07/14/22 [History Last Taken Unknown] cyclobenzaprine 10 mg tablet 10 mg PO HS 07/14/22 [History Last Taken Unknown] diclofenac sodium 1 % topical gel (Arthritis Pain (diclofenac)) 2 g topical ONCE 07/14/22 [History Last Taken Unknown] medroxyprogesterone 150 mg/mL intramuscular suspension (Depo-Provera) 150 mg IM Q12W 07/14/22 [History Last Taken Unknown] promethazine 25 mg tablet 25 mg PO TID PRN Nausea 07/14/22 [History Last Taken Unknown] ketorolac 10 mg tablet 10 mg PO 4X/DAY PRN PRN pain 5 days #20 tabs 07/17/22 [Rx Last Taken Unknown] ascorbic acid (vitamin C) 500 mg tablet (Vitamin C) 500 mg PO DAILY 07/28/22 [History Last Taken Unknown] pantoprazole 40 mg tablet,delayed release 40 mg PO DAILY #30 tabs 07/28/22 [Rx Last Taken Unknown] Allergy/AdvReac Type Severity Reaction Status Date / Time influenza virus vaccine, Allergy Other Verified 07/28/22 04:50 specific [influenza virus vacc,specific] iodine Allergy Rash Verified 07/28/22 04:50 Latex, Natural Rubber Allergy Rash Verified 07/28/22 04:50 [place] Allergy Anaphylaxis Verified 07/28/22 04:50 meloxicam Allergy Other Verified 07/28/22 04:50 metronidazole [From Flagyl] Allergy Hives Verified 07/28/22 04:50 montelukast [From Singulair] Allergy Rash Verified 07/28/22 04:50 morphine Allergy Other Verified 07/28/22 04:50 Penicillins [PCN] Allergy Unknown Verified 07/28/22 04:50 Seasonal Allergies: Uncoded Allergy NEEDS Verified 07/28/22 04:50 FOLLOW-UP clindamycin AdvReac Nausea/Vom/ Verified 07/28/22 04:50 Diarrhea doxycycline AdvReac Nausea Verified 07/28/22 04:50 prednisone AdvReac Other Verified 07/28/22 04:50 ANTIBACTERIAL SOAP Allergy Hives Uncoded 07/28/22 04:50 HAND TUBE COREMAKER Allergy Hives Uncoded 07/28/22 04:50 Family History Brother Hypertension Bipolar affect, depressed Surgical History No pertinent past surgical history Social History Smoking Status: Current every day smoker tobacco type: cigarettes Tobacco: How many years used: 24 second hand exposure: Yes alcohol intake: never ROS ROS ED Constitutional Constitutional ED: Denies chills or fever(s) Eyes Eyes: Denies blurry vision or change in vision ENT ENT ED: Reports rhinorrhea; Denies sore throat Cardiovascular Cardiovascular: Reports chest pain; Denies palpitations Respiratory/Chest Respiratory/Chest: Reports cough; Denies dyspnea Gastrointestinal Gastrointestinal: Denies nausea or vomiting Genitourinary Genitourinary ED: Denies dysuria or hematuria Musculoskeletal Musculoskeletal: Reports back pain and neck pain Integumentary Denies abscess or rash Neurologic Neurologic: Reports headache(s); Denies weakness Allergic/Immunologic Allergic/Immunologic ED: Denies mouth swelling or urticaria EXAM Physical Exam Const Vital Signs: 07/28/22 04:44 Temperature 97.8 F Temperature Source Temporal Pulse Rate 122 H Respiratory Rate 19 H Blood Pressure 122/69 H Blood Pressure Mean 86 Pulse Ox 96 Oxygen Delivery Method Room Air Positive well nourished and well developed General Appearance ED: well developed HEENT Reports moist mucous membranes Neck supple and no JVD Resp normal respiratory effort and clear to auscultation bilaterally Cardio regular rate, regular rhythm and no murmurs GI normal to inspection, nondistended, normoactive bowel sounds and non-tender Palpation: soft Extremity normal to inspection General Extremety ED: Negative for edema or tenderness General Extremity: Negative for edema Neuro oriented x3, CN's II-XII intact bilaterally and no sensory deficits noted Sensorium / Orientation: alert Motor Exam: strength 5/5 throughout Psych mental status grossly normal Skin no rashes or lesions noted MDM MDM MDM Narrative Medical decision making narrative: Patient was given a GI cocktail. EKG was obtained. On my interpretation, it showed a sinus tachycardia with a rate of 123. [place] interval, QRS interval, and QTc intervals were all normal. [place] was normal. There are no acute ST or T wave changes. PA and lateral chest x-ray was obtained. There are 2 views. On my interpretation, lung carballo are clear. There is normal cardiac silhouette. Bony thorax is normal. There is no acute process noted. Radiologist also interpreted the x-ray and agrees. Patient feels better on reevaluation. Patient was given a prescription for omeprazole. Patient was instructed to fo llow-up with her primary care physician in 5 to 7 days. Patient understood and was agreeable with the plan. All questions were answered. Radiography Diagnostic Testing: Clinical Impression(s) from Imaging Studies Chest X-Ray 07/28/22 04:57 IMPRESSION: Normal x-ray examination of the chest. Electronically Signed: Cedric Hou MD at 5:29 EST , EKG Initial EKG: Attestation: I personally reviewed and interpreted this EKG as follows: Interpretation: No Acute Injury Pattern and Sinus Tachycardia (123) Prior EKG tracings: available for review Prior: Unchanged (04/05/2021) Discharge Plan Triage Chief Complaint: Abd Pain ED Provider: Ho Kathleen Dx/Rx/DC Orders Clinical Impression: Chest pain, GERD (gastroesophageal reflux disease) Instructions: ED GERD (Adult) Prescriptions: Continued pantoprazole 40 mg Tablet,Delayed Release (Dr/Ec) 40 mg PO DAILY Qty: 30 0RF No Action albuterol sulfate 90 mcg/actuation HFA aerosol inhaler 1 inh inhalation ONCE beclomethasone dipropionate 80 mcg/actuation HFA aerosol breath activated 1 inh inhalation BID cyclobenzaprine 10 mg tablet 10 mg PO HS diclofenac sodium [Arthritis Pain (diclofenac)] 1 % gel 2 g topical ONCE Rx Instructions: apply to single elbow, wrist or hand; for hand includes palm/fingers/back of hand medroxyprogesterone [Depo-Provera] 150 mg/mL suspension 150 mg IM Q12W promethazine 25 mg tablet 25 mg PO TID PRN (Reason: Nausea) multivitamin 1 EACH tablet 1 ea PO DAILY loratadine 10 MG capsule 10 mg PO QHS propranolol 10 MG tablet 10 mg PO DAILY benztropine 0.5 MG tablet 0.5 mg PO DAILY cholecalciferol (vitamin D3) [Vitamin D3] 50 mcg (2,000 unit) Tablet 100 mcg PO DAILY Culturelle 10 billion cell Capsule 1 cap PO DAILY Vraylar 1.5 mg Capsule 1.5 mg PO DAILY naproxen 500 mg tablet 500 mg PO BID Qty: 14 0RF ketorolac 10 mg tablet 10 mg PO 4X/DAY PRN PRN (Reason: pain) 5 Days Qty: 20 0RF ascorbic acid (vitamin C) [Vitamin C] 500 mg tablet 500 mg PO DAILY Primary Care Provider: Domenic Mejia Referrals: Domenic Mejia MD [Primary Care Provider] - 5-7 Days Disposition Disposition: Home, Self Care
--- NOTE | 2022-07-28 04:56 | EKG12_ITS ---
Test Reason : DYSRHYTHMIA Blood Pressure : / mmHG Vent. Rate : 123 BPM Atrial Rate : 123 BPM P-R Int : 148 ms QRS Dur : 080 ms QT Int : 308 ms P-R-T Axes : 047 037 019 degrees QTc Int : 440 ms Sinus tachycardia Otherwise normal ECG Confirmed by GABRIEL KHAN, KYM ([id number]), film and video editor LOUISA ROBIN ([id number]) on 08/02/2022 11:38:02 AM Referred By: TYLER Confirmed By:KYM RIOS MD
--- NOTE | 2022-07-28 04:57 | RAD_ITS ---
STUDY: X-RAY CHEST REASON FOR EXAM: Female, 41 years old. Chest pain TECHNIQUE: Frontal and lateral views of the chest. COMPARISON: None. FINDINGS: The lungs are clear and expanded. There is no demonstrated pleural abnormality. Normal size heart. Normal mediastinum and jennifer. Normal visualized pulmonary arteries. Normal visualized aortic arch and descending thoracic aorta. Normal visualized thoracic spine. Normal visualized ribs, clavicles, and shoulders. There is no demonstrated abnormality of the visualized soft tissue structures of the upper abdomen. RAD/Chest PA and Lateral IMPRESSION: Normal x-ray examination of the chest. Electronically Signed: Cedric Hou MD at 5:29 EST ,
[2022-07-28] MEDS: Mag Hydrox/Al Hydrox/Simeth 30 ML UDC PO (05:03)
== END 2022-07-28 05:51 | disposition home or self-care (01) ==
PROVIDERS: Emergency Provider Emergency Medicine; PCP Family Medicine; Visit Provider Emergency Medicine
DX: R07.9 Chest pain, unspecified (principal); F31.9 Bipolar disorder, unspecified; K21.9 Gastro-esophageal reflux disease without esophagitis; R10.9 Unspecified abdominal pain; F17.210 Nicotine dependence, cigarettes, uncomplicated
CPT/HCPCS: 71046; 93005; 99285

== ENCOUNTER 2022-09-10 17:41 | Emergency (ER) | payer MEDICAID, SELFPAY ==
[2022-09-10 17:42] VITALS: BP 154/99; PULSE 102; RESP 18; TEMP 36.6; O2SAT 95; BMI 36.0
== END 2022-09-10 18:30 | disposition left against medical advice (07) ==
LOC: ED 19:09
PROVIDERS: PCP Family Medicine
DX: R51.9 Headache, unspecified (principal)

== ENCOUNTER 2022-10-31 01:44 | Emergency (ER) | payer MEDICAID, SELFPAY ==
[2022-10-31 01:45] VITALS: BP 129/88; PULSE 116; RESP 18; TEMP 36.4; O2SAT 94; BMI 36.1
--- NOTE | 2022-10-31 02:18 | EDS_ITS ---
HPI History of Present Illness Chief Complaint: Dental Informant: patient and EMS Onset/Context/Timing Onset: Today Context: Gradual Onset Timing: Continuous Quality: Aching Location: Right lower molar area Worsened by: Nothing Relieved by: - (Nothing) Associated Symptoms Assocated Symptom - Dental: jaw swelling, face swelling, cold sensitivity and hot sensitivity; Negative for fever Narrative Narrative: Patient presents with right lower dental pain and swelling that became worse tonight. Patient states she got up to use the restroom and noted her right lower jaw became more swollen. Patient called EMS and was brought to the hospital. Patient denies any difficulty breathing or difficulty swallowing. Patient describes her pain as aching. Patient states it is over the right lower molar areas. Patient admits to hot and cold sensitivity. Patient denies any fevers but admits to some subjective chills. [facility] Medical History Anemia Anxiety Arthritis ASTHMA Bipolar 1 disorder Chest pain Chronic cough Depression Difficulty balancing Fatigue GERD (gastroesophageal reflux disease) Nausea and vomiting NECK/BACK PAIN Right leg pain Severe headache Shoulder pain Stomach ulcer Home Medications loratadine 10 mg capsule 10 mg PO QHS 09/03/18 [History Last Taken Unknown] multivitamin 1 ea PO DAILY 09/03/18 [History Last Taken Unknown] propranolol 10 mg tablet 10 mg PO DAILY 04/24/19 [History Last Taken Unknown] benztropine 0.5 mg tablet 0.5 mg PO DAILY 11/08/20 [History Last Taken Unknown] cholecalciferol (vitamin D3) 50 mcg (2,000 unit) tablet (Vitamin D3) 100 mcg PO DAILY 01/16/21 [History Last Taken Unknown] Lactobacillus rhamnosus GG 10 billion cell capsule (Culturelle) 1 cap PO DAILY 01/25/21 [History Last Taken Unknown] cariprazine 1.5 mg capsule (Vraylar) 1.5 mg PO DAILY 04/05/21 [History Last Taken Unknown] naproxen 500 mg tablet 500 mg PO BID #14 tabs 05/13/22 [Rx Last Taken Unknown] albuterol sulfate 90 mcg/actuation aerosol inhaler 1 inh inhalation ONCE 07/14/22 [History Last Taken Unknown] beclomethasone dipropionate 80 mcg/actuation HFA breath activated aerosol 1 inh inhalation BID 07/14/22 [History Last Taken Unknown] cyclobenzaprine 10 mg tablet 10 mg PO HS 07/14/22 [History Last Taken Unknown] diclofenac sodium 1 % topical gel (Arthritis Pain (diclofenac)) 2 g topical ONCE 07/14/22 [History Last Taken Unknown] medroxyprogesterone 150 mg/mL intramuscular suspension (Depo-Provera) 150 mg IM Q12W 07/14/22 [History Last Taken Unknown] promethazine 25 mg tablet 25 mg PO TID PRN Nausea 07/14/22 [History Last Taken Unknown] ketorolac 10 mg tablet 10 mg PO 4X/DAY PRN PRN pain 5 days #20 tabs 07/17/22 [Rx Last Taken Unknown] ascorbic acid (vitamin C) 500 mg tablet (Vitamin C) 500 mg PO DAILY 07/28/22 [History Last Taken Unknown] pantoprazole 40 mg tablet,delayed release 40 mg PO DAILY #30 tabs 07/28/22 [Rx Last Taken Unknown] azithromycin 250 mg tablet 250 mg PO DAILY #4 TABLETS 10/31/22 [Rx Last Taken Unknown] Allergy/AdvReac Type Severity Reaction Status Date / Time influenza virus vaccine, Allergy Other Verified 10/31/22 01:49 specific [influenza virus vacc,specific] iodine Allergy Rash Verified 10/31/22 01:49 Latex, Natural Rubber Allergy Rash Verified 10/31/22 01:49 [place] Allergy Anaphylaxis Verified 10/31/22 01:49 meloxicam Allergy Other Verified 10/31/22 01:49 metronidazole [From Flagyl] Allergy Hives Verified 10/31/22 01:49 montelukast [From Singulair] Allergy Rash Verified 10/31/22 01:49 morphine Allergy Other Verified 10/31/22 01:49 Penicillins [PCN] Allergy Unknown Verified 10/31/22 01:49 Seasonal Allergies: Uncoded Allergy NEEDS Verified 10/31/22 01:49 FOLLOW-UP clindamycin AdvReac Nausea/Vom/ Verified 10/31/22 01:49 Diarrhea doxycycline AdvReac Nausea Verified 10/31/22 01:49 prednisone AdvReac Other Verified 10/31/22 01:49 ANTIBACTERIAL SOAP Allergy Hives Uncoded 10/31/22 01:49 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 Uncoded 10/31/22 01:49 Family History Brother Hypertension Bipolar affect, depressed Surgical History No pertinent past surgical history Social History Smoking Status: Current every day smoker tobacco type: cigarettes Tobacco: How many years used: 24 second hand exposure: Yes alcohol intake: never ROS ROS ED Constitutional Constitutional ED: Reports chills and subjective; Denies fever(s) Eyes Eyes: Denies blurry vision or change in vision ENT ENT ED: Reports rhinorrhea; Denies sore throat Cardiovascular Cardiovascular: Denies chest pain or palpitations Respiratory/Chest Respiratory/Chest: Reports cough; Denies dyspnea Gastrointestinal Gastrointestinal: Denies nausea or vomiting Genitourinary Genitourinary ED: Denies dysuria or hematuria Musculoskeletal Musculoskeletal: Denies back pain or neck pain Integumentary Denies abscess or rash Neurologic Neurologic: Denies headache(s) or weakness Allergic/Immunologic Allergic/Immunologic ED: Denies mouth swelling or urticaria EXAM Physical Exam Const Vital Signs: 10/31/22 01:45 Temperature 97.5 F L Temperature Source Temporal Pulse Rate 116 H Respiratory Rate 18 Blood Pressure 129/88 H Blood Pressure Mean 101 Pulse Ox 94 Oxygen Delivery Method Room Air Positive well nourished, well developed and obese General Appearance ED: well developed and NAD Nutritional Appearance: obese HEENT Mouth ED: Yes oral and palatal mucosa normal, Yes lips normal and Yes tongue normal Mouth: oral and palatal mucosa normal, lips normal and tongue normal Teeth and Gingiva: caries, gingiva abnormal Positive for gingival edema and gingival tenderness; Negative for purulent d/c from gingiva and poor dentition Throat: posterior oropharynx normal Eyes PERRL and EOMs intact bilaterally Neck no lymphadenopathy, supple and no JVD General: Negative for anterior neck swelling, tenderness or submandibular swelling Lymph Lymphatic: no lymphadenopathy noted Resp normal respiratory effort and clear to auscultation bilaterally Cardio regular rate and regular rhythm Neuro oriented x3, CN's II-XII intact bilaterally, moves all extremities, no focal motor deficits and no sensory deficits noted Sensorium / Orientation: alert Motor Exam: strength 5/5 throughout Psych mental status grossly normal Skin no rashes or lesions noted MDM MDM MDM Narrative Medical decision making narrative: Patient was advised that this is most likely an infection due to dental caries. Patient was given a dose of azithromycin here. Patient was given a prescription for azithromycin. Patient was instructed to take Tylenol or ibuprofen as needed for pain. Patient was instructed to follow-up with her dentist in 3 to 5 days. Patient was instructed return if worse in any way. Patient understood and was agreeable with the plan. All questions were answered. Discharge Plan Triage Chief Complaint: Dental ED Provider: Ho Kathleen Dx/Rx/DC Orders Clinical Impression: Infected dental caries, Obesity (BMI 30-39.9) Instructions: ED Dental Cavity, ED Dental Abscess Prescriptions: New azithromycin [azithromycin] 250 mg tablet 250 mg PO DAILY Qty: 4 0RF No Action albuterol sulfate 90 mcg/actuation HFA aerosol inhaler 1 inh inhalation ONCE beclomethasone dipropionate 80 mcg/actuation HFA aerosol breath activated 1 inh inhalation BID cyclobenzaprine 10 mg tablet 10 mg PO HS diclofenac sodium [Arthritis Pain (diclofenac)] 1 % gel 2 g topical ONCE Rx Instructions: apply to single elbow, wrist or hand; for hand includes palm/fingers/back of hand medroxyprogesterone [Depo-Provera] 150 mg/mL suspension 150 mg IM Q12W promethazine 25 mg tablet 25 mg PO TID PRN (Reason: Nausea) multivitamin 1 EACH tablet 1 ea PO DAILY loratadine 10 MG capsule 10 mg PO QHS propranolol 10 MG tablet 10 mg PO DAILY benztropine 0.5 MG tablet 0.5 mg PO DAILY cholecalciferol (vitamin D3) [Vitamin D3] 50 mcg (2,000 unit) Tablet 100 mcg PO DAILY Culturelle 10 billion cell Capsule 1 cap PO DAILY Vraylar 1.5 mg Capsule 1.5 mg PO DAILY naproxen 500 mg tablet 500 mg PO BID Qty: 14 0RF ketorolac 10 mg tablet 10 mg PO 4X/DAY PRN PRN (Reason: pain) 5 Days Qty: 20 0RF ascorbic acid (vitamin C) [Vitamin C] 500 mg tablet 500 mg PO DAILY pantoprazole 40 mg Tablet,Delayed Release (Dr/Ec) 40 mg PO DAILY Qty: 30 0RF Primary Care Provider: Domenic Mejia Referrals: Domenic Mejia MD [Primary Care Provider] - 3-5 Days Daniela Alcazar [Non-Staff] - 3-5 Days Disposition Disposition: Home, Self Care
[2022-10-31] MEDS: Azithromycin 250 MG Tablet 500 MG PO (02:37)
== END 2022-10-31 03:02 | disposition home or self-care (01) ==
PROVIDERS: Emergency Provider Emergency Medicine; PCP Family Medicine; Visit Provider Emergency Medicine
DX: K02.9 Dental caries, unspecified (principal); F17.210 Nicotine dependence, cigarettes, uncomplicated; E66.9 Obesity, unspecified; J45.909 Unspecified asthma, uncomplicated
CPT/HCPCS: 99284

== ENCOUNTER 2022-11-07 20:42 | Emergency (ER) | payer MEDICAID, SELFPAY ==
[2022-11-07 20:43] VITALS: BP 141/108; PULSE 119; RESP 15; TEMP 36.5; O2SAT 94; BMI 36.1
--- NOTE | 2022-11-07 21:02 | EDS_ITS ---
HPI History of Present Illness Chief Complaint: General Illness Detail of Chief Complaint: Patient presents with COVID-like symptoms Informant: patient Narrative Narrative: Patient states that she has been sick for the last 4 days with COVID-like symptoms. She has a cough, headache, sore throat, body aches, and diarrhea. Patient states she has 2 friends that recently had COVID. Patient was unaware she can get free test for home testing and therefore she called EMS to bring her in for evaluation. She denies shortness of breath. She denies urinary symptoms. She denies exposure to strep. [facility] Medical History Anemia Anxiety Arthritis ASTHMA Bipolar 1 disorder Chest pain Chronic cough Depression Difficulty balancing Fatigue GERD (gastroesophageal reflux disease) Nausea and vomiting NECK/BACK PAIN Right leg pain Severe headache Shoulder pain Stomach ulcer Home Medications loratadine 10 mg capsule 10 mg PO QHS 09/03/18 [History Last Taken Unknown] multivitamin 1 ea PO DAILY 09/03/18 [History Last Taken Unknown] propranolol 10 mg tablet 10 mg PO DAILY 04/24/19 [History Last Taken Unknown] benztropine 0.5 mg tablet 0.5 mg PO DAILY 11/08/20 [History Last Taken Unknown] cholecalciferol (vitamin D3) 50 mcg (2,000 unit) tablet (Vitamin D3) 100 mcg PO DAILY 01/16/21 [History Last Taken Unknown] Lactobacillus rhamnosus GG 10 billion cell capsule (Culturelle) 1 cap PO DAILY 01/25/21 [History Last Taken Unknown] cariprazine 1.5 mg capsule (Vraylar) 1.5 mg PO DAILY 04/05/21 [History Last Taken Unknown] naproxen 500 mg tablet 500 mg PO BID #14 tabs 05/13/22 [Rx Last Taken Unknown] albuterol sulfate 90 mcg/actuation aerosol inhaler 1 inh inhalation ONCE 07/14/22 [History Last Taken Unknown] beclomethasone dipropionate 80 mcg/actuation HFA breath activated aerosol 1 inh inhalation BID 07/14/22 [History Last Taken Unknown] cyclobenzaprine 10 mg tablet 10 mg PO HS 07/14/22 [History Last Taken Unknown] diclofenac sodium 1 % topical gel (Arthritis Pain (diclofenac)) 2 g topical ONCE 07/14/22 [History Last Taken Unknown] medroxyprogesterone 150 mg/mL intramuscular suspension (Depo-Provera) 150 mg IM Q12W 07/14/22 [History Last Taken Unknown] promethazine 25 mg tablet 25 mg PO TID PRN Nausea 07/14/22 [History Last Taken Unknown] ketorolac 10 mg tablet 10 mg PO 4X/DAY PRN PRN pain 5 days #20 tabs 07/17/22 [Rx Last Taken Unknown] ascorbic acid (vitamin C) 500 mg tablet (Vitamin C) 500 mg PO DAILY 07/28/22 [History Last Taken Unknown] pantoprazole 40 mg tablet,delayed release 40 mg PO DAILY #30 tabs 07/28/22 [Rx Last Taken Unknown] azithromycin 250 mg tablet 250 mg PO DAILY #4 TABLETS 10/31/22 [Rx Last Taken Unknown] benzonatate 200 mg capsule 200 mg PO TID PRN cough #20 caps 11/07/22 [Rx Last Taken Unknown] Allergy/AdvReac Type Severity Reaction Status Date / Time influenza virus vaccine, Allergy Other Verified 11/07/22 20:49 specific [influenza virus vacc,specific] iodine Allergy Rash Verified 11/07/22 20:49 Latex, Natural Rubber Allergy Rash Verified 11/07/22 20:49 [place] Allergy Anaphylaxis Verified 11/07/22 20:49 meloxicam Allergy Other Verified 11/07/22 20:49 metronidazole [From Flagyl] Allergy Hives Verified 11/07/22 20:49 montelukast [From Singulair] Allergy Rash Verified 11/07/22 20:49 morphine Allergy Other Verified 11/07/22 20:49 Penicillins [PCN] Allergy Unknown Verified 11/07/22 20:49 Seasonal Allergies: Uncoded Allergy NEEDS Verified 11/07/22 20:49 FOLLOW-UP clindamycin AdvReac Nausea/Vom/ Verified 10/31/22 01:49 Diarrhea doxycycline AdvReac Nausea Verified 10/31/22 01:49 prednisone AdvReac Other Verified 10/31/22 01:49 ANTIBACTERIAL SOAP Allergy Hives Uncoded 10/31/22 01:49 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 Uncoded 10/31/22 01:49 Family History Brother Hypertension Bipolar affect, depressed Surgical History No pertinent past surgical history Social History Smoking Status: Current every day smoker tobacco type: cigarettes Tobacco: How many years used: 24 second hand exposure: Yes alcohol intake: never ROS ROS ED Review of Systems ROS Unobtainable: other Constitutional Constitutional ED: Reports chills and lethargy; Denies fever(s), sweats or weight loss Eyes Eyes: Denies blurry vision, change in vision or diplopia ENT ENT ED: Reports rhinorrhea and sore throat Cardiovascular Cardiovascular: Denies chest pain, orthopnea or racing heartbeat Respiratory/Chest Respiratory/Chest: Reports cough; Denies dyspnea, dyspnea on exertion, orthopnea or sputum Gastrointestinal Gastrointestinal: Reports diarrhea; Denies abdominal pain, nausea or vomiting Genitourinary Genitourinary ED: Denies dysuria, hematuria or urinary frequency Musculoskeletal Musculoskeletal: Denies arthralgias, back pain, myalgias or neck pain Integumentary Denies abscess, Abrasions or rash Neurologic Neurologic: Denies headache(s) or weakness Psychiatric Psychiatric: Denies anxiety, depression or suicidal thoughts Endocrine Endocrinology: Denies polydipsia, polyphagia or polyuria Hematologic/Lymphatic Hematologic/Lymphatic: Denies easy bleeding, easy bruising or lymphadenopathy Allergic/Immunologic Allergic/Immunologic ED: Denies mouth swelling, tongue swelling or urticaria EXAM Physical Exam Const Vital Signs: 11/07/22 20:43 11/07/22 20:54 Temperature 97.7 F L Temperature Source Temporal Pulse Rate 119 H Respiratory Rate 15 Respiratory Effort Normal Non-Labored Respiratory Pattern Normal Blood Pressure 141/108 H Blood Pressure Mean 119 Pulse Ox 94 Oxygen Delivery Method Room Air Positive well nourished and well developed General Appearance ED: well developed and NAD HEENT Reports TM's clear and moist mucous membranes HEENT Narrative: Mild pharyngeal erythema. No exudates. Uvula midline. No trismus. normocephalic and atraumatic; Negative for trauma or tenderness Tympanic Membrane ED: Yes TM's clear Eyes PERRL and EOMs intact bilaterally General Eye ED: Negative for pale conjunctiva or scleral icterus Neck no lymphadenopathy, supple and no JVD General: Negative for tenderness Chest Wall inspection of chest normal and palpation of chest normal Chest: Negative for tenderness Resp normal respiratory effort and clear to auscultation bilaterally Effort and Inspection: Negative for respiratory distress or pain with movement Auscultation: Negative for rhonchi, wheezes or diminished lung sounds Cardio regular rate, regular rhythm, S1 normal heart sound, S2 normal heart sound and no murmurs Peripheral Pulses: pulses 2+ throughout GI normal to inspection, nondistended, normoactive bowel sounds, soft to palpation, non-tender, non-distended and no masses Back/Spine no CVA tenderness and no thoracic nor lumbar tenderness Extremity normal to inspection General Extremety ED: Negative for edema General Extremity: Negative for edema Neuro oriented x3, CN's II-XII intact bilaterally, no sensory deficits noted and gait normal Sensorium / Orientation: awake, alert, oriented to person, oriented to place and oriented to time Motor Exam: strength 5/5 throughout and strength abnormal Psych mental status grossly normal Skin no rashes or lesions noted and no wounds MDM MDM MDM Narrative Medical decision making narrative: Patient presents with upper respiratory symptoms that she has had for approximately 4 days. She had a rapid COVID as well as rapid influenza and both were negative. Patient had a rapid strep and was negative. At this point I suspect likely viral URI. Advised on supportive care and pushing fluids as well as ibuprofen or Tylenol for fever control and body aches. I will write her prescription for Tessalon Perles for cough. Patient to follow-up with her primary care physician 3 to 5 days. Patient to return if worsening shortness of breath or condition should worsen anyway. Discharge Plan Triage Chief Complaint: General Illness ED Provider: Ganga Chambers Dx/Rx/DC Orders Clinical Impression: Viral URI Instructions: ED URI, Viral, No Abx (Adult) Prescriptions: New benzonatate 200 mg capsule 200 mg PO TID PRN (Reason: cough) Qty: 20 0RF No Action albuterol sulfate 90 mcg/actuation HFA aerosol inhaler 1 inh inhalation ONCE beclomethasone dipropionate 80 mcg/actuation HFA aerosol breath activated 1 inh inhalation BID cyclobenzaprine 10 mg tablet 10 mg PO HS diclofenac sodium [Arthritis Pain (diclofenac)] 1 % gel 2 g topical ONCE Rx Instructions: apply to single elbow, wrist or hand; for hand includes palm/fingers/back of hand medroxyprogesterone [Depo-Provera] 150 mg/mL suspension 150 mg IM Q12W promethazine 25 mg tablet 25 mg PO TID PRN (Reason: Nausea) multivitamin 1 EACH tablet 1 ea PO DAILY loratadine 10 MG capsule 10 mg PO QHS propranolol 10 MG tablet 10 mg PO DAILY benztropine 0.5 MG tablet 0.5 mg PO DAILY cholecalciferol (vitamin D3) [Vitamin D3] 50 mcg (2,000 unit) Tablet 100 mcg PO DAILY Culturelle 10 billion cell Capsule 1 cap PO DAILY Vraylar 1.5 mg Capsule 1.5 mg PO DAILY naproxen 500 mg tablet 500 mg PO BID Qty: 14 0RF ketorolac 10 mg tablet 10 mg PO 4X/DAY PRN PRN (Reason: pain) 5 Days Qty: 20 0RF ascorbic acid (vitamin C) [Vitamin C] 500 mg tablet 500 mg PO DAILY pantoprazole 40 mg Tablet,Delayed Release (Dr/Ec) 40 mg PO DAILY Qty: 30 0RF azithromycin [azithromycin] 250 mg tablet 250 mg PO DAILY Qty: 4 0RF Primary Care Provider: Domenic Mejia Referrals: Domenic Mejia MD [Primary Care Provider] - 3-5 Days Disposition Disposition: Home, Self Care
== END 2022-11-07 23:02 | disposition home or self-care (01) ==
PROVIDERS: Emergency Provider Emergency Medicine; PCP Family Medicine; Visit Provider Emergency Medicine
DX: J06.9 Acute upper respiratory infection, unspecified (principal); F31.9 Bipolar disorder, unspecified; R51.9 Headache, unspecified; R19.7 Diarrhea, unspecified; F17.210 Nicotine dependence, cigarettes, uncomplicated; J45.909 Unspecified asthma, uncomplicated; Z20.822 Contact with and (suspected) exposure to COVID-19
CPT/HCPCS: 87428; 87880; 99284

== ENCOUNTER 2022-12-01 16:09 | Emergency (ER) | payer MEDICAID, SELFPAY ==
[2022-12-01 16:10] VITALS: BP 139/100; PULSE 110; RESP 18; TEMP 36.1; O2SAT 98; BMI 35.4
--- NOTE | 2022-12-01 16:27 | EX.ED.VIS.PS ---
HPI HPI - Psych History of Present Illness Chief Complaint: Mental Health Detail of Chief Complaint: Depressed x1 month Informant: patient Onset/Context/Timing Onset: Month(s) Context: Sudden Onset Conflict: - (None thing specific) Timing: Continuous and Waxes and wanes Current Severity: Moderate Maximum Severity: Severe Worsened by: Situational factors and Alcohol intoxication Relieved by: Nothing Associated Symptoms Associated Symptoms - Psych: Positive for Depressed, Change in Eating, Change in sleeping, Decreased Interest and Decreased Concentration; Negative for Guilt, Hopelessness, Suicidal Thoughts, Easily distracted, Grandiosity, Flight of Ideas, Increased activity, Pressured Speech, Agitated, Angry, Hostile, Threatening, Confusion, Paranoia, Visual Hallucinations or Auditory Hallucinations Specific plan (suicidal thought): None Narrative Narrative: Patient is a 42-year-old woman with history of GERD, bipolar affective disorder, asthma, anxiety who presents because she has been depressed for the past month. She lives alone. She is presently unemployed. She does admit to smoking 2 packs/day. She states she is at the point of I do not care what happens to me . She has no specific plan to harm her self. When asked if she has thought of harming herself her response was I do not care what happens to me . Asked again if she had thoughts specifically of hurting herself, and there was no response. She denies being and states she has had no children. Patient denies alcohol use. Patient denies drug use. Patient denies headache, visual, ocular auditory symptoms. She states she has problems with memory and cannot recall the conversation she had with her psychiatrist. She apologized for not being able to recall. When asked if she was on disability her response was she was told paperwork was sent but she has not heard anything. She denies cardiac, respiratory, GI or symptoms. Prior similar symptoms: Yes Recent Illness/Hospitalization: No [facility] Medical History Anemia Anxiety Arthritis ASTHMA Bipolar 1 disorder Chest pain Chronic cough Depression Difficulty balancing Fatigue GERD (gastroesophageal reflux disease) Nausea and vomiting NECK/BACK PAIN Right leg pain Severe headache Shoulder pain Stomach ulcer Home Medications loratadine 10 mg capsule 10 mg PO QHS 09/03/18 [History Last Taken Unknown] multivitamin 1 ea PO DAILY 09/03/18 [History Last Taken Unknown] propranolol 10 mg tablet 10 mg PO DAILY 04/24/19 [History Last Taken Unknown] benztropine 0.5 mg tablet 0.5 mg PO DAILY 11/08/20 [History Last Taken Unknown] cholecalciferol (vitamin D3) 50 mcg (2,000 unit) tablet (Vitamin D3) 100 mcg PO DAILY 01/16/21 [History Last Taken Unknown] Lactobacillus rhamnosus GG 10 billion cell capsule (Culturelle) 1 cap PO DAILY 01/25/21 [History Last Taken Unknown] cariprazine 1.5 mg capsule (Vraylar) 1.5 mg PO DAILY 04/05/21 [History Last Taken Unknown] naproxen 500 mg tablet 500 mg PO BID #14 tabs 05/13/22 [Rx Last Taken Unknown] albuterol sulfate 90 mcg/actuation aerosol inhaler 1 inh inhalation ONCE 07/14/22 [History Last Taken Unknown] beclomethasone dipropionate 80 mcg/actuation HFA breath activated aerosol 1 inh inhalation BID 07/14/22 [History Last Taken Unknown] cyclobenzaprine 10 mg tablet 10 mg PO HS 07/14/22 [History Last Taken Unknown] diclofenac sodium 1 % topical gel (Arthritis Pain (diclofenac)) 2 g topical ONCE 07/14/22 [History Last Taken Unknown] medroxyprogesterone 150 mg/mL intramuscular suspension (Depo-Provera) 150 mg IM Q12W 07/14/22 [History Last Taken Unknown] promethazine 25 mg tablet 25 mg PO TID PRN Nausea 07/14/22 [History Last Taken Unknown] ketorolac 10 mg tablet 10 mg PO 4X/DAY PRN PRN pain 5 days #20 tabs 07/17/22 [Rx Last Taken Unknown] ascorbic acid (vitamin C) 500 mg tablet (Vitamin C) 500 mg PO DAILY 07/28/22 [History Last Taken Unknown] pantoprazole 40 mg tablet,delayed release 40 mg PO DAILY #30 tabs 07/28/22 [Rx Last Taken Unknown] azithromycin 250 mg tablet 250 mg PO DAILY #4 TABLETS 10/31/22 [Rx Last Taken Unknown] benzonatate 200 mg capsule 200 mg PO TID PRN cough #20 caps 11/07/22 [Rx Last Taken Unknown] Allergy/AdvReac Type Severity Reaction Status Date / Time influenza virus vaccine, Allergy Other Verified 12/01/22 16:14 specific [influenza virus vacc,specific] iodine Allergy Rash Verified 12/01/22 16:14 Latex, Natural Rubber Allergy Rash Verified 12/01/22 16:14 [place] Allergy Anaphylaxis Verified 12/01/22 16:14 meloxicam Allergy Other Verified 12/01/22 16:14 metronidazole [From Flagyl] Allergy Hives Verified 12/01/22 16:14 montelukast [From Singulair] Allergy Rash Verified 12/01/22 16:14 morphine Allergy Other Verified 12/01/22 16:14 Penicillins [PCN] Allergy Unknown Verified 12/01/22 16:14 Seasonal Allergies: Uncoded Allergy NEEDS Verified 12/01/22 16:14 FOLLOW-UP clindamycin AdvReac Nausea/Vom/ Verified 12/01/22 16:14 Diarrhea doxycycline AdvReac Nausea Verified 12/01/22 16:14 prednisone AdvReac Other Verified 12/01/22 16:14 ANTIBACTERIAL SOAP Allergy Hives Uncoded 10/31/22 01:49 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 Fer Camacho MD) household members: none Smoking Status: Current every day smoker tobacco type: cigarettes Tobacco: How many years used: 24 second hand exposure: Yes alcohol intake: never ROS ROS ED Constitutional Constitutional ED: Denies chills, fever(s), subjective or sweats Eyes Eyes: Denies blurry vision, change in vision or diplopia ENT ENT ED: Denies ear pain, rhinorrhea or sore throat Cardiovascular Cardiovascular: Denies chest pain, palpitations or racing heartbeat Respiratory/Chest Respiratory/Chest: Denies cough, dyspnea or dyspnea on exertion Gastrointestinal Gastrointestinal: Denies abdominal pain, diarrhea, nausea or vomiting Genitourinary Genitourinary ED: Denies dysuria, hematuria or urinary frequency Musculoskeletal Musculoskeletal: Denies arthralgias, back pain, myalgias or neck pain Integumentary Denies abscess, Abrasions or rash Neurologic Neurologic: Denies headache(s), paresthesias or weakness Psychiatric Psychiatric: Denies anxiety or depression Endocrine Endocrinology: Denies polydipsia, polyphagia or polyuria Hematologic/Lymphatic Hematologic/Lymphatic: Denies easy bleeding or easy bruising EXAM Physical Exam Const Vital Signs: 12/01/22 16:10 Temperature 97 F L Temperature Source Temporal Pulse Rate 110 H Respiratory Rate 18 Blood Pressure 139/100 H Blood Pressure Mean 113 Pulse Ox 98 Oxygen Delivery Method Room Air Positive well nourished, well developed and obese; Negative for cachectic or contractures General Appearance ED: well developed and NAD; Negative for cachectic, contractures or pallor Nutritional Appearance: obese; Negative for cachectic HEENT Reports moist mucous membranes normocephalic and atraumatic Eyes PERRL and EOMs intact bilaterally General Eye ED: Negative for pale conjunctiva or scleral icterus Resp normal respiratory effort and clear to auscultation bilaterally Cardio S1 normal heart sound, S2 normal heart sound and no murmurs Rate: regular rate Rhythm: regular rhythm GI non-tender, non-distended and no masses Auscultation: normoactive bowel sounds Palpation: soft Extremity normal to inspection Extremity Narrative: No evidence of prior self-inflicted injury. General Extremety ED: Negative for edema or tenderness General Extremity: Negative for edema Neuro oriented x3, CN's II-XII intact bilaterally and no sensory deficits noted Maikel Coma Scale: document GCS findings Spontaneous Obeys Commands Oriented 15 Motor Exam: strength 5/5 throughout Psych Negative for mental status grossly normal or thought process normal Appearance: appropriate Attitude: calm Activity / Motor Behavior: psychomotor slowing and avoids eye contact Speech: slow and soft Mood & Affect: apathetic, sad and flat affect Thought Process: normal thought process Thought Content: No suicidality, No homicidality, No hallucination(s), No depersonalization, No compulsion(s) and No obsession(s) Attention / Concentration: attention grossly intact Insight: fair Judgement: fair Skin General Skin Exam: Negative for jaundice or pallor Lesions: no lesions Rashes: no rashes MDM MDM MDM Narrative Medical decision making narrative: Patient is depressed. Patient history of bipolar affective disorder. Since there is no suicidal thoughts and no plan suspect urgent follow-up with her therapist or psychiatrist may be sufficient. Will have case management see her to expedite this. If she believes patient needs to be admitted because she has told her something differently will obtain appropriate test for clearance for admission to a psychiatric facility. History & Record Review Discussion w/independent historian: Patient Additional record(s) reviewed:: Prior outpatient record, Prior ED visit (Numerous visits for 9 related psychiatric complaints over the past 12 months.) and Prior labs Management Discussion w/another healthcare provider: rolled materials worker/Case management (Case management did see patient. She has multiple resources. She has not followed through. She then requested that I write an excuse so she does not have to attend jury duty. According to case management patient has not followed through with all the things that have been set up for her. We both) Discharge Plan Triage Chief Complaint: Mental Health ED Provider: Fer Camacho Dx/Rx/DC Orders Clinical Impression: Depression, History of bipolar disorder, Weight loss, unintentional, Hypersomnolence Instructions: ED Depression Prescriptions: No Action albuterol sulfate 90 mcg/actuation HFA aerosol inhaler 1 inh inhalation ONCE beclomethasone dipropionate 80 mcg/actuation HFA aerosol breath activated 1 inh inhalation BID cyclobenzaprine 10 mg tablet 10 mg PO HS diclofenac sodium [Arthritis Pain (diclofenac)] 1 % gel 2 g topical ONCE Rx Instructions: apply to single elbow, wrist or hand; for hand includes palm/fingers/back of hand medroxyprogesterone [Depo-Provera] 150 mg/mL suspension 150 mg IM Q12W promethazine 25 mg tablet 25 mg PO TID PRN (Reason: Nausea) multivitamin 1 EACH tablet 1 ea PO DAILY loratadine 10 MG capsule 10 mg PO QHS propranolol 10 MG tablet 10 mg PO DAILY benztropine 0.5 MG tablet 0.5 mg PO DAILY cholecalciferol (vitamin D3) [Vitamin D3] 50 mcg (2,000 unit) Tablet 100 mcg PO DAILY Culturelle 10 billion cell Capsule 1 cap PO DAILY Vraylar 1.5 mg Capsule 1.5 mg PO DAILY naproxen 500 mg tablet 500 mg PO BID Qty: 14 0RF ketorolac 10 mg tablet 10 mg PO 4X/DAY PRN PRN (Reason: pain) 5 Days Qty: 20 0RF ascorbic acid (vitamin C) [Vitamin C] 500 mg tablet 500 mg PO DAILY pantoprazole 40 mg Tablet,Delayed Release (Dr/Ec) 40 mg PO DAILY Qty: 30 0RF azithromycin [azithromycin] 250 mg tablet 250 mg PO DAILY Qty: 4 0RF benzonatate 200 mg capsule 200 mg PO TID PRN (Reason: cough) Qty: 20 0RF Primary Care Provider: Domenic Mejia Referrals: Domenic Mejia MD [Primary Care Provider] - 3-5 Days Disposition Disposition: Home, Self Care
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
== END 2022-12-01 17:48 | disposition home or self-care (01) ==
PROVIDERS: Emergency Provider Emergency Medicine; PCP Family Medicine; Visit Provider Emergency Medicine
DX: F31.9 Bipolar disorder, unspecified (principal); F41.9 Anxiety disorder, unspecified; F17.210 Nicotine dependence, cigarettes, uncomplicated; R63.4 Abnormal weight loss; G47.10 Hypersomnia, unspecified; J45.909 Unspecified asthma, uncomplicated
CPT/HCPCS: 99282

== ENCOUNTER 2023-01-22 17:02 | Emergency (ER) | payer MEDICARE, MEDICAID, SELFPAY ==
[2023-01-22 17:03] VITALS: BP 122/92; PULSE 89; RESP 16; TEMP 36.4; O2SAT 95; BMI 37.3
--- NOTE | 2023-01-22 17:33 | EX.ED.VIS.HA ---
HPI History of Present Illness Chief Complaint: Headache Informant: patient Narrative Narrative: Nontraumatic generalized headache since 10 AM. Photophobia and phonophobia and nausea without vomiting. Took naproxen earlier no relief. No fevers. Has been in the ED in the past for this states typically will get Toradol and will help her symptoms. States that it does not help she gets fluids and Zofran. She cannot tolerate Benadryl due to causing dizziness when she leaves. Prior similar symptoms: Yes PFSH PFSH Medical History Anemia Anxiety Arthritis ASTHMA Bipolar 1 disorder Chest pain Chronic cough Depression Difficulty balancing Fatigue GERD (gastroesophageal reflux disease) Nausea and vomiting NECK/BACK PAIN Right leg pain Severe headache Shoulder pain Stomach ulcer Home Medications loratadine 10 mg capsule 10 mg PO QHS 09/03/18 [History Last Taken Unknown] multivitamin 1 ea PO DAILY 09/03/18 [History Last Taken Unknown] propranolol 10 mg tablet 10 mg PO DAILY 04/24/19 [History Last Taken Unknown] benztropine 0.5 mg tablet 0.5 mg PO DAILY 11/08/20 [History Last Taken Unknown] cholecalciferol (vitamin D3) 50 mcg (2,000 unit) tablet (Vitamin D3) 100 mcg PO DAILY 01/16/21 [History Last Taken Unknown] Lactobacillus rhamnosus GG 10 billion cell capsule (Culturelle) 1 cap PO DAILY 01/25/21 [History Last Taken Unknown] cariprazine 1.5 mg capsule (Vraylar) 1.5 mg PO DAILY 04/05/21 [History Last Taken Unknown] naproxen 500 mg tablet 500 mg PO BID #14 tabs 05/13/22 [Rx Last Taken Unknown] albuterol sulfate 90 mcg/actuation aerosol inhaler 1 inh inhalation ONCE 07/14/22 [History Last Taken Unknown] beclomethasone dipropionate 80 mcg/actuation HFA breath activated aerosol 1 inh inhalation BID 07/14/22 [History Last Taken Unknown] cyclobenzaprine 10 mg tablet 10 mg PO HS 07/14/22 [History Last Taken Unknown] diclofenac sodium 1 % topical gel (Arthritis Pain (diclofenac)) 2 g topical ONCE 07/14/22 [History Last Taken Unknown] medroxyprogesterone 150 mg/mL intramuscular suspension (Depo-Provera) 150 mg IM Q12W 07/14/22 [History Last Taken Unknown] promethazine 25 mg tablet 25 mg PO TID PRN Nausea 07/14/22 [History Last Taken Unknown] ketorolac 10 mg tablet 10 mg PO 4X/DAY PRN PRN pain 5 days #20 tabs 07/17/22 [Rx Last Taken Unknown] ascorbic acid (vitamin C) 500 mg tablet (Vitamin C) 500 mg PO DAILY 07/28/22 [History Last Taken Unknown] pantoprazole 40 mg tablet,delayed release 40 mg PO DAILY #30 tabs 07/28/22 [Rx Last Taken Unknown] azithromycin 250 mg tablet 250 mg PO DAILY #4 TABLETS 10/31/22 [Rx Last Taken Unknown] benzonatate 200 mg capsule 200 mg PO TID PRN cough #20 caps 11/07/22 [Rx Last Taken Unknown] Allergy/AdvReac Type Severity Reaction Status Date / Time influenza virus vaccine, Allergy Other Verified 01/22/23 17:57 specific [influenza virus vacc,specific] iodine Allergy Rash Verified 01/22/23 17:57 Latex, Natural Rubber Allergy Rash Verified 01/22/23 17:57 morongo Allergy Anaphylaxis Verified 01/22/23 17:57 meloxicam Allergy Other Verified 01/22/23 17:57 metronidazole [From Flagyl] Allergy Hives Verified 01/22/23 17:57 montelukast [From Singulair] Allergy Rash Verified 01/22/23 17:57 morphine Allergy Other Verified 01/22/23 17:57 Penicillins [PCN] Allergy Unknown Verified 01/22/23 17:57 Seasonal Allergies: Uncoded Allergy NEEDS Verified 01/22/23 17:57 FOLLOW-UP clindamycin AdvReac Nausea/Vom/ Verified 01/22/23 17:57 Diarrhea doxycycline AdvReac Nausea Verified 01/22/23 17:57 prednisone AdvReac Other Verified 01/22/23 17:57 ANTIBACTERIAL SOAP Allergy Hives Uncoded 01/22/23 17:57 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 Allergy Hives Uncoded 01/22/23 17:57 Family History Brother Hypertension Bipolar affect, depressed Surgical History No pertinent past surgical history Social History household members: none Smoking Status: Current every day smoker tobacco type: cigarettes Tobacco: How many years used: 24 second hand exposure: Yes alcohol intake: never ROS ROS ED Constitutional Constitutional ED: Denies chills, fever(s) or sweats Eyes Eyes: Denies change in vision ENT ENT ED: Denies dysphagia or sore throat Cardiovascular Cardiovascular: Denies chest pain, leg edema, palpitations or racing heartbeat Respiratory/Chest Respiratory/Chest: Denies cough, dyspnea or dyspnea on exertion Gastrointestinal Gastrointestinal: Reports nausea; Denies abdominal pain, diarrhea or vomiting Genitourinary Genitourinary ED: Denies dysuria, hematuria or urinary frequency Musculoskeletal Musculoskeletal: Denies back pain, extremity pain or neck pain Integumentary Denies rash or wounds Neurologic Neurologic: Reports headache(s); Denies paresthesias or weakness EXAM Physical Exam Const Vital Signs: 01/22/23 17:03 Temperature 97.5 F L Temperature Source Temporal Pulse Rate 89 Respiratory Rate 16 Blood Pressure 122/92 H Blood Pressure Mean 102 Pulse Ox 95 Oxygen Delivery Method Room Air Positive well nourished and well developed General Appearance ED: well developed and NAD HEENT Reports moist mucous membranes normocephalic and atraumatic Eyes PERRL, EOMs intact bilaterally and conjunctivae normal General Eye ED: Yes normal appearance of both eyes Neck no lymphadenopathy, supple and no meningeal signs General: Negative for tenderness Chest Wall Chest: Negative for tenderness Resp normal respiratory effort and normal air movement Effort and Inspection: symmetric chest movement; Negative for respiratory distress Cardio regular rate, regular rhythm and no murmurs Peripheral Pulses: pulses 2+ throughout GI normal to inspection, nondistended, normoactive bowel sounds and non-tender Palpation: Negative for guarding or rebound tenderness present Back/Spine no CVA tenderness and no thoracic nor lumbar tenderness Extremity normal to inspection General Extremety ED: Negative for edema or tenderness General Extremity: Negative for edema Neuro oriented x3, CN's II-XII intact bilaterally and no sensory deficits noted Sensorium / Orientation: awake and alert Skin no rashes or lesions noted and no wounds MDM MDM MDM Narrative Medical decision making narrative: Interventions / MDM: Differential diagnosis: Migraine headache Diagnosis considered but do not suspect: Meningitis, no meningismus. My EKG interpretation: N/A Imaging independently reviewed and interpreted by myself: N/A External documents reviewed: N/A Test considered but not ordered:N/A ED course: Patient declined migraine cocktail. Patient treated with Toradol monitored improving symptoms. Discharged with outpatient follow-up. Re-evaluation: stable Disposition discussed with patient/family/significant other: Patient Case discussed with consulting clinician: N/A Discharge Plan Triage Chief Complaint: Headache ED Provider: Ronald Gonzalez Dx/Rx/DC Orders Clinical Impression: Migraine headache Instructions: Migraine Triggers Prescriptions: No Action albuterol sulfate 90 mcg/actuation HFA aerosol inhaler 1 inh inhalation ONCE beclomethasone dipropionate 80 mcg/actuation HFA aerosol breath activated 1 inh inhalation BID cyclobenzaprine 10 mg tablet 10 mg PO HS diclofenac sodium [Arthritis Pain (diclofenac)] 1 % gel 2 g topical ONCE Rx Instructions: apply to single elbow, wrist or hand; for hand includes palm/fingers/back of hand medroxyprogesterone [Depo-Provera] 150 mg/mL suspension 150 mg IM Q12W promethazine 25 mg tablet 25 mg PO TID PRN (Reason: Nausea) multivitamin 1 EACH tablet 1 ea PO DAILY loratadine 10 MG capsule 10 mg PO QHS propranolol 10 MG tablet 10 mg PO DAILY benztropine 0.5 MG tablet 0.5 mg PO DAILY cholecalciferol (vitamin D3) [Vitamin D3] 50 mcg (2,000 unit) Tablet 100 mcg PO DAILY Culturelle 10 billion cell Capsule 1 cap PO DAILY Vraylar 1.5 mg Capsule 1.5 mg PO DAILY naproxen 500 mg tablet 500 mg PO BID Qty: 14 0RF ketorolac 10 mg tablet 10 mg PO 4X/DAY PRN PRN (Reason: pain) 5 Days Qty: 20 0RF ascorbic acid (vitamin C) [Vitamin C] 500 mg tablet 500 mg PO DAILY pantoprazole 40 mg Tablet,Delayed Release (Dr/Ec) 40 mg PO DAILY Qty: 30 0RF azithromycin [azithromycin] 250 mg tablet 250 mg PO DAILY Qty: 4 0RF benzonatate 200 mg capsule 200 mg PO TID PRN (Reason: cough) Qty: 20 0RF Stand Alone Forms: ED Work / School Excuse Primary Care Provider: Domenic Mejia Referrals: Domenic Mejia MD [Primary Care Provider] - 3-5 Days if not improving Disposition Disposition: Home, Self Care Discharge Date/Time: 01/22/23 18:22
[2023-01-22] MEDS: Ketorolac 30 MG/ML Syringe IM (17:51)
== END 2023-01-22 18:22 | disposition home or self-care (01) ==
LOC: ED 18:16
PROVIDERS: Emergency Provider Emergency Medicine; PCP Family Medicine; Visit Provider Emergency Medicine
DX: G43.909 Migraine, unspecified, not intractable, without status migrainosus (principal); F17.210 Nicotine dependence, cigarettes, uncomplicated; F32.A Depression, unspecified; Z79.899 Other long term (current) drug therapy; J45.909 Unspecified asthma, uncomplicated; Z79.51 Long term (current) use of inhaled steroids; Z79.3 Long term (current) use of hormonal contraceptives; K21.9 Gastro-esophageal reflux disease without esophagitis
CPT/HCPCS: 96372; 99284

== ENCOUNTER 2023-01-28 09:43 | Outpatient (RCR) | payer MEDICAID, SELFPAY ==
--- NOTE | 2023-01-28 12:20 | BH.COMM_ITS ---
Communication Note - Communication with Client Communication Note: Met with pt to complete initial paperwork. No significant changes since pre-admission screening. Completed [place] Suicide Screening. Low risk. No active SI. Consulted with Dr. Ford with plan to admit to [facility] level of care with dx of F 31.32.
--- NOTE | 2023-02-01 09:20 | BH.COMM ---
Communication Note - Communication with Client Communication Note: Spoke with pt over the phone as pt canceled for IOP today. Pt shared her PTSD symptoms are making it hard for pt to stay asleep, so she is very tired this morning. Pt stated she has a lot going on in my life right now which also made it difficult to make it to IOP today. Pt shared she needs medication for her PTSD and was reminded that pt sees Dr. Winn for psychiatry tomorrow. Pt also reminded that Dr. Winn is only at IOP once a week, so if pt is unable to make it tomorrow, pt will have to wait another week to see Dr. Winn. Pt shared she understands this. Pt asked this therapist to call her two supports on pt's [facility] to provide them information on pt's mental health.
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
--- NOTE | 2023-02-01 09:23 | BH.PSA ---
Development & Family of Origin - Family History Family History: Family History (Last Reviewed 01/22/23 @ 17:[address] Ronald Gonzalez DO) Brother Hypertension Bipolar affect, depressed Suicide Assessment Treatment Plan Recommendations
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
[2023-02-02 11:14] VITALS: BP 142/97; PULSE 116
--- NOTE | 2023-02-02 12:00 | BH.COMM ---
Communication Note - Communication with Client Communication Note: Pt called and cancelled IOP today. Transportation informed. Pt called back 15 minutes later and stated that she changed her mind and wanted to attend. Transportation agreeable to picking her up. Upon arriving to IOP she only wanted to speak individually with her therapist. She was agreeable to meeting with program psychiatrist however declined to attend psychotherapy group instead choosing to sit in unoccupied group room alone journaling.
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
--- NOTE | 2023-02-02 13:11 | BH.DR.ITP ---
Initial Treatment Plan Patient Information Visit Information: ADMISSION DATE: EXPECTED LOS: 4-6 weeks Problems/Symptoms Problem #1:: Mood instability Symptom:: Sadness, irritability, decreased concentration, low energy Symptom:: Intermittent hostility to healthcare providers Problem #2:: Anxiety Symptom:: Worry, checking rituals, flashbacks, avoidance, difficulty leaving the house due to social anxiety
--- NOTE | 2023-02-02 14:55 | BH.MDN ---
Multi-Disciplinary Note - Note 30-min Individual Time Started:: 08:45 Date: 02/02/23 Purpose of session/treatment goals addressed:: To gather information on pt's current stressors, symptoms, triggers, and tx goals. Another goal was to build rapport and provide emotional support. Eye Contact:: Fair Motor Activity:: Appropriate Appearance:: Disheveled Speech:: Other - direct Mood:: Anxious, Irritable, Dysthymic Affect:: Constricted - tearful Thoughts:: Logical, No evidence of hallucinations/delusions noted Staff Interventions:: rapport building, strengths perspective, treatment planning, other - provided emotional support Client Response:: Pt responded well to session, open to meeting with therapist. Pt shared I can't catch a break and that she feels overwhelmed by all the stressors in her life. Some of these stressors include: having to move and not having housing lined up, PTSD symptoms, grief, lack of support, and physical and mental health issues. Pt acknowledged that because of all her stressors and feeling overwhelmed, pt has been taking out her anger on others. Pt was tearful while talking about her PTSD symptoms and her brother's overdose. Pt shared she had multiple family members struggle with addiction and pass away. Pt asked questions about addiction and was receptive to emotional support by therapist. Pt had questions about her current medications and pt was encouraged to talk with the nurse about this. Pt receptive to positive feedback on pt's willingness to attend IOP today. Risks/Concerns:: Denies suicidal ideations, plan, or intent. Pt's khadijah is a protective factor. Progress Toward Goals/Plan:: Progress noted in pt coming into IOP tx today when pt was highly anxious and depressed. Pt's symptoms are unchanged from last week. Pt endorses severe depression with lack of motivation, lack of energy, anhedonia, lack of self-care, difficulty concentrating, worthlessness, isolation, and hopelessness. Pt also endorses PTSD symptoms including nightmares that impact pt's sleep, flashbacks, and avoidance. Pt met with Dr. Winn today, but no medication changes were made. Pt will continue IOP tx to prevent decompensation, gain healthy coping skills, and reduce isolation. Time Stopped:: 09:10
== END 2023-02-02 23:59 ==
LOC: BHIOP 09:43
PROVIDERS: PCP Family Medicine; Referring Provider Psychiatry & Neurology Psychiatry; Visit Provider Psychiatry & Neurology Psychiatry
DX: F31.9 Bipolar disorder, unspecified (principal); F60.5 Obsessive-compulsive personality disorder; F43.10 Post-traumatic stress disorder, unspecified
CPT/HCPCS: 90792; H2012; S9480; T1002; 90832

== ENCOUNTER 2023-01-29 18:07 | Emergency (ER) | payer MEDICARE, MEDICAID, SELFPAY ==
[2023-01-29 18:08] VITALS: BP 133/96; PULSE 116; RESP 16; TEMP 36.6; O2SAT 98; BMI 35.0
--- NOTE | 2023-01-29 18:37 | EX.ED.VIS.HA ---
HPI History of Present Illness Chief Complaint: Headache Informant: patient Onset/Context/Timing Onset: Today Context: Sudden Timing: Continuous Quality -Headache: Positive for Similar Prior Headaches and Sharp Location: Occiput and posterior neck Worsened by: Nothing Relieved by: Nothing Associated Symptoms/Injury Associated Symptoms: Positive for Nausea and Vomiting; Negative for Fever, Sore Throat, Sinus Pressure, Numbness, Tingling, Preceding Aura, Visual Changes, Blurred Vision, Photophobia or Visual Loss Injury - VICENTE: Negative for Direct Trauma Narrative Narrative: Patient presents with migraine headache that began today. Patient states it began rather suddenly. Patient states it feels similar to prior migraine headaches. Patient describes it as sharp. Patient states it is over the occiput. Patient states nothing makes it better and nothing makes it worse. Patient states she did have an episode of nausea and vomiting prior to her calling for EMS. Patient also admits to some subjective chills but denies any fevers. Patient states that she has had similar headaches in the past and that Toradol works well for these headaches. Patient states she cannot take Benadryl due to side effects. Prior similar symptoms: Yes PFSH PFSH Medical History Anemia Anxiety Arthritis ASTHMA Bipolar 1 disorder Chest pain Chronic cough Depression Difficulty balancing Fatigue GERD (gastroesophageal reflux disease) Nausea and vomiting NECK/BACK PAIN Right leg pain Severe headache Shoulder pain Stomach ulcer Home Medications loratadine 10 mg capsule 10 mg PO QHS 09/03/18 [History Last Taken Unknown] multivitamin 1 ea PO DAILY 09/03/18 [History Last Taken Unknown] propranolol 10 mg tablet 10 mg PO DAILY 04/24/19 [History Last Taken Unknown] benztropine 0.5 mg tablet 0.5 mg PO DAILY 11/08/20 [History Last Taken Unknown] cholecalciferol (vitamin D3) 50 mcg (2,000 unit) tablet (Vitamin D3) 100 mcg PO DAILY 01/16/21 [History Last Taken Unknown] Lactobacillus rhamnosus GG 10 billion cell capsule (Culturelle) 1 cap PO DAILY 01/25/21 [History Last Taken Unknown] cariprazine 1.5 mg capsule (Vraylar) 1.5 mg PO DAILY 04/05/21 [History Last Taken Unknown] naproxen 500 mg tablet 500 mg PO BID #14 tabs 05/13/22 [Rx Last Taken Unknown] albuterol sulfate 90 mcg/actuation aerosol inhaler 1 inh inhalation ONCE 07/14/22 [History Last Taken Unknown] beclomethasone dipropionate 80 mcg/actuation HFA breath activated aerosol 1 inh inhalation BID 07/14/22 [History Last Taken Unknown] cyclobenzaprine 10 mg tablet 10 mg PO HS 07/14/22 [History Last Taken Unknown] diclofenac sodium 1 % topical gel (Arthritis Pain (diclofenac)) 2 g topical ONCE 07/14/22 [History Last Taken Unknown] medroxyprogesterone 150 mg/mL intramuscular suspension (Depo-Provera) 150 mg IM Q12W 07/14/22 [History Last Taken Unknown] promethazine 25 mg tablet 25 mg PO TID PRN Nausea 07/14/22 [History Last Taken Unknown] ketorolac 10 mg tablet 10 mg PO 4X/DAY PRN PRN pain 5 days #20 tabs 07/17/22 [Rx Last Taken Unknown] ascorbic acid (vitamin C) 500 mg tablet (Vitamin C) 500 mg PO DAILY 07/28/22 [History Last Taken Unknown] pantoprazole 40 mg tablet,delayed release 40 mg PO DAILY #30 tabs 07/28/22 [Rx Last Taken Unknown] azithromycin 250 mg tablet 250 mg PO DAILY #4 TABLETS 10/31/22 [Rx Last Taken Unknown] benzonatate 200 mg capsule 200 mg PO TID PRN cough #20 caps 11/07/22 [Rx Last Taken Unknown] Allergy/AdvReac Type Severity Reaction Status Date / Time influenza virus vaccine, Allergy Other Verified 01/29/23 18:11 specific [influenza virus vacc,specific] iodine Allergy Rash Verified 01/29/23 18:11 Latex, Natural Rubber Allergy Rash Verified 01/29/23 18:11 [place] band Allergy Anaphylaxis Verified 01/29/23 18:11 meloxicam Allergy Other Verified 01/29/23 18:11 metronidazole [From Flagyl] Allergy Hives Verified 01/29/23 18:11 montelukast [From Singulair] Allergy Rash Verified 01/29/23 18:11 morphine Allergy Other Verified 01/29/23 18:11 Penicillins [PCN] Allergy Unknown Verified 01/29/23 18:11 Seasonal Allergies: Uncoded Allergy NEEDS Verified 01/29/23 18:11 FOLLOW-UP clindamycin AdvReac Nausea/Vom/ Verified 01/29/23 18:11 Diarrhea doxycycline AdvReac Nausea Verified 01/29/23 18:11 prednisone AdvReac Other Verified 01/29/23 18:11 ANTIBACTERIAL SOAP Allergy Hives Uncoded 01/29/23 18:11 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 Allergy Hives Uncoded 01/29/23 18:11 Family History Brother Hypertension Bipolar affect, depressed Surgical History No pertinent past surgical history Social History household members: none Smoking Status: Current every day smoker tobacco type: cigarettes Tobacco: How many years used: 24 second hand exposure: Yes alcohol intake: never ROS ROS ED Constitutional Constitutional ED: Reports chills and subjective; Denies fever(s) Eyes Eyes: Denies blurry vision or change in vision ENT ENT ED: Denies rhinorrhea or sore throat Cardiovascular Cardiovascular: Denies chest pain or palpitations Respiratory/Chest Respiratory/Chest: Denies cough or dyspnea Gastrointestinal Gastrointestinal: Reports nausea and vomiting Genitourinary Genitourinary ED: Denies dysuria or hematuria Musculoskeletal Musculoskeletal: Denies back pain or neck pain Integumentary Denies abscess or rash Neurologic Neurologic: Denies headache(s) or weakness Allergic/Immunologic Allergic/Immunologic ED: Denies mouth swelling or urticaria EXAM Physical Exam Const Vital Signs: 01/29/23 18:08 Temperature 97.9 F Temperature Source Temporal Pulse Rate 116 H Respiratory Rate 16 Blood Pressure 133/96 H Blood Pressure Mean 108 Pulse Ox 98 Oxygen Delivery Method Room Air Positive well nourished, well developed and obese General Appearance ED: well developed and NAD Nutritional Appearance: obese HEENT Reports normocephalic and moist mucous membranes Neck supple and no JVD Resp normal respiratory effort and clear to auscultation bilaterally Cardio regular rate and regular rhythm GI non-tender and non-distended Palpation: soft Extremity normal to inspection and full ROM Neuro oriented x3, CN's II-XII intact bilaterally and no sensory deficits noted Independence Coma Scale: document GCS findings Spontaneous Obeys Commands Oriented 15 Sensorium / Orientation: awake and alert Speech: speech normal Motor Exam: strength 5/5 throughout Psych mental status grossly normal MDM MDM MDM Narrative Medical decision making narrative: Differential diagnosis includes migraine headache, tension headache, and cervical strain. Patient stated that Toradol has worked well for her in the past for this. Patient was given injection of Toradol here. Treatment and Re-Evaluation Narrative: Patient is feeling better on reevaluation. Patient was able to ambulate to the bathroom without difficulty. Patient was instructed to go home and rest in a dark quiet room. Patient was instructed to follow-up with her primary care physician in 5 to 7 days. Patient understood and was agreeable with the plan. All questions were answered. Discharge Plan Triage Chief Complaint: Headache ED Provider: Ho Kathleen Dx/Rx/DC Orders Clinical Impression: Migraine headache, Anxiety disorder, Bipolar 1 disorder Instructions: ED, Migraine (Classical) Prescriptions: No Action albuterol sulfate 90 mcg/actuation HFA aerosol inhaler 1 inh inhalation ONCE beclomethasone dipropionate 80 mcg/actuation HFA aerosol breath activated 1 inh inhalation BID cyclobenzaprine 10 mg tablet 10 mg PO HS diclofenac sodium [Arthritis Pain (diclofenac)] 1 % gel 2 g topical ONCE Rx Instructions: apply to single elbow, wrist or hand; for hand includes palm/fingers/back of hand medroxyprogesterone [Depo-Provera] 150 mg/mL suspension 150 mg IM Q12W promethazine 25 mg tablet 25 mg PO TID PRN (Reason: Nausea) multivitamin 1 EACH tablet 1 ea PO DAILY loratadine 10 MG capsule 10 mg PO QHS propranolol 10 MG tablet 10 mg PO DAILY benztropine 0.5 MG tablet 0.5 mg PO DAILY cholecalciferol (vitamin D3) [Vitamin D3] 50 mcg (2,000 unit) Tablet 100 mcg PO DAILY Culturelle 10 billion cell Capsule 1 cap PO DAILY Vraylar 1.5 mg Capsule 1.5 mg PO DAILY naproxen 500 mg tablet 500 mg PO BID Qty: 14 0RF ketorolac 10 mg tablet 10 mg PO 4X/DAY PRN PRN (Reason: pain) 5 Days Qty: 20 0RF ascorbic acid (vitamin C) [Vitamin C] 500 mg tablet 500 mg PO DAILY pantoprazole 40 mg Tablet,Delayed Release (Dr/Ec) 40 mg PO DAILY Qty: 30 0RF azithromycin [azithromycin] 250 mg tablet 250 mg PO DAILY Qty: 4 0RF benzonatate 200 mg capsule 200 mg PO TID PRN (Reason: cough) Qty: 20 0RF Primary Care Provider: Domenic Mejia Referrals: Domenic Mejia MD [Primary Care Provider] - 5-7 Days Disposition Disposition: Home, Self Care
[2023-01-29] MEDS: Ketorolac 60 MG/2 ML Vial IM (18:43)
== END 2023-01-29 19:39 | disposition home or self-care (01) ==
PROVIDERS: Emergency Provider Emergency Medicine; PCP Family Medicine; Referring Provider Emergency Medicine; Visit Provider Emergency Medicine
DX: G43.909 Migraine, unspecified, not intractable, without status migrainosus (principal); F31.9 Bipolar disorder, unspecified; F17.210 Nicotine dependence, cigarettes, uncomplicated; F41.9 Anxiety disorder, unspecified; K21.9 Gastro-esophageal reflux disease without esophagitis; Z79.899 Other long term (current) drug therapy; Z79.51 Long term (current) use of inhaled steroids; Z79.3 Long term (current) use of hormonal contraceptives
CPT/HCPCS: 99284; A4216

== ENCOUNTER 2023-02-03 07:44 | Outpatient (RCR) | payer MEDICAID, SELFPAY ==
[2023-02-03 00:50] VITALS: BP 142/97; PULSE 116
--- NOTE | 2023-02-03 09:00 | BH.COMM ---
Communication Note - Communication with Client Communication Note: Cancelled for IOP today. No reason given. Transportation informed.
--- NOTE | 2023-02-08 09:00 | BH.SGPN.GN ---
Behaviors/Verbalizations/Mental Status: []Pt alert and oriented, neatly dressed, unkempt hair. Eye contact good. Motor activity appropriate. Speech within normal limits. Affect congruent, mood sad, irritated, anxious. Thoughts linear, logical, no signs of hallucinations or delusions. Reviewed pt?s symptom tracker, no risk for suicidal ideation, plan, or intent as of 02/08/23 Client Response/Progress/Benefit: []Pt responded well to session, attentive and engaged. Pt reports feeling sad, frustrated, and anxious this morning. Pt shared my life is her stressor today as pt is facing numerous external stressors. Pt did not want to share further, but pt stated she is stressed and tired. Pt's mental health wins today include going to [email or web address] yesterday and being consistent with taking her medications. Pt appeared to benefit from connecting with peers and not isolating today. Pt will continue IOP tx to prevent decompensation, improve use of healthy coping skills, and increase interpersonal effectiveness skills. Narrative Note: []
--- NOTE | 2023-02-08 10:10 | BH.SGPN.GN ---
Behaviors/Verbalizations/Mental Status: []Pt alert and oriented, casually dressed and groomed. Eye contact good. Motor activity appropriate. Speech within normal limits. Affect congruent, mood euthymic. Thoughts linear, logical, no signs of hallucinations or delusions. Client Response/Progress/Benefit: []Pt receptive to session AEB contributing to discussion, as well listening attentively to others, and taking notes. Worked with group to brainstorm the positive and negative aspects of stress on physical and mental health. Group did well to identify the benefits of stress as well as the impact of distress on performance, relationships, and mental health. Pt identified their personal top stressors as: getting kicked out of her current apartment, needing to find new housing, and not being able to work due to mental and physical health. Pt seemed to benefit from increased awareness of current stressors and impact stress has on mental health. Recommended to continue IOP tx to improve emotion regulation, increase healthy coping, and prevent decompensation.
--- NOTE | 2023-02-08 15:03 | BH.MDN ---
Multi-Disciplinary Note - Note 30-min Individual Time Started:: 11:20 Date: 02/08/23 Purpose of session/treatment goals addressed:: To address current stressors, symptoms, and triggers. Another goal was to help pt identify questions for her supervisor case loading. Eye Contact:: Fair Motor Activity:: Appropriate Appearance:: Disheveled Speech:: Tangential Mood:: Anxious, Irritable, Dysthymic Affect:: Congruent Thoughts:: Circular, No evidence of hallucinations/delusions noted Staff Interventions:: CBT techniques, rapport building, strengths perspective, other - provided emotional support and encouraged pt to ask questions at her case management appointment. Client Response:: Pt responded well to session, open to meeting with therapist. Pt reports feeling overwhelmed by her housing situation. Pt is stressed about getting her things moved out, where she can go, and if there will be [facility] housing. Pt is also worried that she will be in trouble with her landlord if she cannot get her things moved out. Pt is meeting with her supervisor case loading today and someone from [facility] this . Pt wanted help writing out questions to ask at these appointments, so therapist typed up pt's questions. In addition to her housing stressor, pt also continues to grieve and experience PTSD from her brother's by overdose in pt's apartment. Pt was tearful and shared she is having flashbacks and nightmares. Pt receptive to emotional support and pt appeared to benefit from this. Pt also receptive to challenging some inappropriate guilt. Pt stated she has been enjoying IOP so far and that she was very engaged in group today. Risks/Concerns:: Pt denies any suicidal ideations, plan, or intent. Pt is highly stressed about housing and there is a chance that pt could have no housing option by the end of this month. Progress Toward Goals/Plan:: Progress noted in pt continuing to come to IOP tx. Pt has canceled twice already since admission, but she is engaged when she attends. Pt's symptoms remain unchanged since admission. Pt reported her medications got situated and that she has no issues now. Pt's biggest stressors are still housing and the PTSD from the loss of her brother who overdosed in pt's apartment. Pt has an appointment today with her supervisor case loading. Pt will continue IOP tx to prevent decompensation, provide social and emotional support, and gain healthy coping skills. Time Stopped:: 11:53
--- NOTE | 2023-02-10 09:00 | BH.SGPN.GN ---
Behaviors/Verbalizations/Mental Status: [] Eye contact is fair. Motor activity is appropriate. Appearance is casual. Speech is Appropriate. Mood is depressed. Affect is constricted. Thoughts are linear and logical. No evidence of psychosis. Reviewed daily check in sheet and no reports of suicidal ideations or intent. Client Response/Progress/Benefit: [] Pt participated when prompted. Attentive. Mental health win included taking action on applying for new housing despite wanting to avoid because it's anxiety provoking and stressful. Pt stated she couldn't think of another mental health win. Pt stated she has lots of stressors which is making it difficult to identify her wins. Pt reported most pressing issue is trying to find new housing. Benefited from group support, encouragement, and feedback. Will continue in IOP to challenge distortions, improve emotion regulation, and prevent decompensation.
--- NOTE | 2023-02-10 10:10 | BH.SGPN.GN ---
Behaviors/Verbalizations/Mental Status: [] Eye contact is good. Motor activity is appropriate. Appearance is casual. Speech is Appropriate. Mood is anxious/irritable. Affect is congruent. Thoughts are linear and logical. No evidence of psychosis. Client Response/Progress/Benefit: [] Pt was an active participant in group discussion. Attentive. Participated in and was engaged during experiential activity. Participated during interactive discussion on what failure means to the group in which peers identified that failure is ... not meeting expectations, not having a desired outcome, and not succeeding in a task. Group was able to identify how fear of failure can lead to inaction, not trying, avoiding, giving up, lowering expectations, and remaining stuck. Participated during interactive discussion on the role that FOF plays in mental wellness, depression, anxiety, and growth. Able to connect the experiential activity to FOF. Benefited from increased awareness of how the role that FOF plays in mental health and decision-making. Will continue in IOP to prevent decompensation/re-admission, increase healthy coping skills, and improve social skills. Narrative Note: []
--- NOTE | 2023-02-10 11:10 | BH.SGPN.GN ---
Behaviors/Verbalizations/Mental Status: []Client alert and oriented, casually dressed and groomed. Eye contact good. Motor activity appropriate. Speech within normal limits. Affect congruent, mood euthymic. Thoughts linear, logical, no signs of hallucinations or delusions. Client Response/Progress/Benefit: []Client responded well to session, engaged in the experiential activity and attentive throughout group processing. Client reported fear of failure has kept client from achieving goals and making new friendships. Client participated in small group discussion regarding strategies to overcome fear of failure. However left due to transportation arrival prior to sharing what skills client would like to focus on in order to aid in reducing fear of failure. Appeared to benefit from increased knowledge of strategies to combat fear of failure and gaining self-awareness. Client will continue IOP tx to increase self-confidence, improve distress tolerance and use of healthy social skills, as well as reduce irritability. Narrative Note: []
--- NOTE | 2023-02-11 09:00 | BH.SGPN.GN ---
Behaviors/Verbalizations/Mental Status: [] Client alert and oriented, casually dressed and groomed. Eye contact good. Motor activity appropriate. Speech within normal limits. Affect full, mood anxious. Thoughts linear, logical, no signs of hallucinations or delusions. Reviewed client?s symptom tracker, no risk for suicidal ideation, plan, or intent as of 02/11/23 Client Response/Progress/Benefit: [] Client responded well to session, offering ideas to peers and providing encouragement. Client reports feeling stressed this morning with struggling to identify mental health wins for herself. Client discussed and shared with groups the stress she is experiencing with needing to find a place to move to and facing possible homelessness if she does not. Client appeared tearful while sharing to group, but appeared to benefit from sharing current stressors. Client will continue IOP tx as Client continues to struggle with anxious thoughts and emotional regualtion. Narrative Note: []
--- NOTE | 2023-02-11 10:10 | BH.SGPN.GN ---
Behaviors/Verbalizations/Mental Status: [] Eye contact is good. Motor activity is appropriate. Appearance is causal. Speech is Appropriate. Mood is anxious/irritable. Affect is congruent. Thoughts are linear and logical. No evidence of psychosis. Easily distracted and off topic at times. Client Response/Progress/Benefit: [] Pt participated at times during group discussions. Attentive during psychoeducation, however at times off topic. Engaged during experiential activity in which she was tasked with managing emotions related to accepting limited control of the activity. Participated during interactive discussion as group worked to define and better understand the role and benefits of acceptance in mental health. Along with peers worked to identify barriers to acceptance which include; feeling out of control, feeling like one is giving up, leads to uncertainty of lack of control, can lead to feeling like a failure, makes one feel weak or vulnerable, and several others. Benefited from increased insight of the benefits and barriers to acceptance in mental health. Plan is to continue in IOP to prevent decompensation/re-admission to psych unit, increase healthy coping, and improve functioning. Narrative Note: []
--- NOTE | 2023-02-15 14:30 | BH.COMM ---
Communication Note - Communication with Client Communication Note: Pt called this afternoon and cancelled IOP for tomorrow. States she is in the ER. Pt receives transportation from [facility] and email was sent to cancel.
--- NOTE | 2023-02-17 09:00 | BH.SGPN.GN ---
Behaviors/Verbalizations/Mental Status: []Pt alert and oriented, well groomed-showered per her report. Eye contact good. Motor activity appropriate. Speech within normal limits. Affect flat, mood overwhelmed. Thoughts linear, logical, no signs of hallucinations or delusions. Reviewed pt?s symptom tracker, no risk for suicidal ideation, plan, or intent as 02/17/23 Client Response/Progress/Benefit: []Pt responded well to session, attentive and engaged. Pt reports her mood as crappy this morning due to numerous life stressors including eviction at the end of the month. Pt stated she is advocating for herself and trying to find resources by calling the 211 line. Pt also showered yesterday which is something she shared she has not done for two weeks. Pt receptive to group encouragement and feedback. Pt appeared to benefit from positive reinforcement. Pt will continue IOP tx to prevent decompensation and gain social support. Narrative Note: []
--- NOTE | 2023-02-17 10:05 | BH.SGPN.GN ---
Behaviors/Verbalizations/Mental Status: []Pt alert and oriented, casually dressed and groomed. Eye contact fair. Motor activity appropriate. Speech within normal limits. Affect congruent, mood dysthymic. Thoughts linear, logical, no signs of hallucinations or delusions. Client Response/Progress/Benefit: []Pt responded well to session AEB contributing to discussion, taking notes, and listening attentively to others. Group discussed the benefits of managed anger and anger as a secondary emotion. Pt shared perspective on personal benefits of anger as processing emotions. Pt completed worksheet on anger triggers and personal warning signs of anger. Pt identified their biggest triggers as being discriminated against, others not following through, and her living situation. Appeared to benefit from increased knowledge of the anger cycle as well as personal triggers. Pt to continue IOP to improve emotion regulation, challenge negative thoughts, and prevent decompensation.
--- NOTE | 2023-02-17 13:35 | BH.MDN ---
Multi-Disciplinary Note - Note 30-min Individual Time Started:: 11:05 Date: 02/17/23 Purpose of session/treatment goals addressed:: To work on goal #2 of pt's tx plan. Another goal was to provide emotional support. Eye Contact:: Fair Motor Activity:: Restless Appearance:: Disheveled Mood:: Anxious, Dysthymic Affect:: Flat Thoughts:: No evidence of hallucinations/delusions noted Staff Interventions:: mindfulness skills, rapport building, strengths perspective, other - reviewed effective communication skills Client Response:: Pt responded well to session, open to meeting with therapist. Pt reports feeling overwhelmed by her housing situation. Pt is frustrated with the lack of support in her life which makes it harder to pack, move, and store her belongings. Pt state she has reached out to [address] and her family service caseworker, but no one is helping me. Pt did get notified about a potential apartment while in session and pt asked for feedback on effective communication. Pt stated her learning processing sand autism make it hard for pt to verbalize and comprehend text messages. Pt did well with acceptive feedback and was able to more effectively communicate. Discussed things pt can do in her control today and pt plans to buy some food after group and keep trying to find housing. Because pt's basic needs are not met, it is difficult to work on other mental health stressors/symptoms. Pt was reminded of local resources such as [employer] and [employer]. Pt stated she has been enjoying IOP so far and that she was very engaged in group today. Risks/Concerns:: Pt is going to lose her apartment at the end of this month and pt does not have housing set up yet. Pt's mental health will continue to decompensate if pt's basic needs are not met. Pt denies any suicidal ideations. Progress Toward Goals/Plan:: Progress noted in pt continuing to come to IOP tx and her connection with peers. Pt has canceled several times since admission, but she is engaged when she attends. Pt's symptoms remain unchanged since admission. Pt stated her hygiene has been poor and she is stressed about paying for food. Pt's biggest stressors are housing and the PTSD from the loss of her brother who overdosed in pt's apartment. Pt reached out to someone about housing today during session. Pt will continue IOP tx to prevent decompensation, provide social and emotional support, and gain healthy coping skills. Time Stopped:: 11:35
--- NOTE | 2023-02-18 10:10 | BH.SGPN.GN ---
Behaviors/Verbalizations/Mental Status: []Pt alert and oriented, disheveled appearance. Eye contact good. Motor activity appropriate. Speech within normal limits. Affect congruent, mood depressed. Thoughts linear, logical, no signs of hallucinations or delusions. Client Response/Progress/Benefit: []Pt was an active participant in group discussion and experiential activity. Attentive during psychoeducation on possible causes to developing and maintain unhealthy coping skills which can impact mental health. Pt contributed during interactive discussion identifying common unhealthy coping skills and identified personal ones as ?having a pity constitution party,? lashing out, and having an ?attitude.? Able to make connections between experiential activity (folder towers) and importance of having a solid base of internal and external coping skills. Benefited from increased awareness of internal and external coping skills and identifying unhealthy coping skills. Pt will continue IOP tx to prevent decompensation, improve distress tolerance skills, and improve interpersonal effectiveness skills. ? Narrative Note: []
--- NOTE | 2023-02-21 09:00 | BH.SGPN.GN ---
Behaviors/Verbalizations/Mental Status: [] Eye contact is good. Motor activity is appropriate. Appearance is casual. Speech is Appropriate. Mood is depressed. Affect is congruent. Thoughts are linear and logical. No evidence of psychosis. Reviewed daily check in sheet and no reports of suicidal ideations or intent. Client Response/Progress/Benefit: [] Pt was an active participant in group discussions. Attentive. Daily symptom tracker notes 01/07/ for anxiety, depression, and irritability. Emotion for today was tired and sad. Shared that she had an emotional breakdown on father's day as her father is and she has limited family support currently. She was tearful. Began to also discuss distress and fear associated with her current housing situation as she is set to be evicted at the end of the month and has not been able to find alternate arranges. She has [facility] her manager market development[facility], and family with no possibilities. States event the shelters are full. According to her reports she has been assertive reaching out to numerous resources in the area. She is upset with her manager market development as she has not been able to get in touch with her. Plans to reach out to manager market development's supervisor mill. Utilizing distraction mostly to minimize distress.Limited progress due in large part to fear of losing basic need (housing). Local resources have not been helpful. Benefits from social support of the group. Will continue in IOP to prevent decompensation, stabilize mood, and increase coping strategies during crisis. Narrative Note: []
--- NOTE | 2023-02-21 11:12 | BH.SGPN.GN ---
Behaviors/Verbalizations/Mental Status: []Pt alert and oriented, casually dressed and hygiene poor. Eye contact good. Motor activity appropriate. Speech within normal limits. Affect congruent, mood anxious. Thoughts linear, logical, no signs of hallucinations or delusions. Client Response/Progress/Benefit: []Pt engaged throughout group session AEB providing contributions to discussion and working within the small group. Pt identified their personal warning signs for crisis and gained further awareness of earliest warning signs. Pt created a crisis action plan to help Pt better manage personal crisis warning signs. Pt shared an action plan for their warning sign of lack of motivation which include: opposite action, continuing to advocate for herself, and getting out of her house. Pt appeared to benefit from creating a crisis action plan and increasing self-awareness. Progress limited due to pt's ongoing psychosocial stressors with housing. Pt to continue IOP tx to provide healthy coping skills, increase social support, and prevent decompensation. ??? Narrative Note: []
--- NOTE | 2023-02-23 09:00 | BH.SGPN.GN ---
Behaviors/Verbalizations/Mental Status: [] Pt alert and oriented, neatly dressed and groomed. Eye contact good. Motor activity appropriate. Speech within normal limits. Affect incongruent-laughing about stressors, mood overwhelmed. Thoughts linear, logical, no signs of hallucinations or delusions. Reviewed pt?s symptom tracker, no risk for suicidal ideation, plan, or intent 02/23/23 Client Response/Progress/Benefit: []Pt responded well to session, attentive and engaged. Pt reports feeling concerned this morning. Pt's stressors with housing are ongoing and pt continues to feel overwhelmed by people and life. Pt did complete an application for a new apartment and pt recently took a shower. Pt connected with peers and gave advice which appeared to help pt feel more present and connected. Pt appeared to benefit from connecting with peers and gaining supportive feedback. Pt will continue IOP tx to prevent decompensation and gain healthy support. Narrative Note: []
--- NOTE | 2023-02-23 10:10 | BH.SGPN.GN ---
Behaviors/Verbalizations/Mental Status: [] Eye contact is good. Motor activity is appropriate. Appearance is casual. Speech is Appropriate. Mood is anxious. Affect is congruent. Thoughts are linear and logical. No evidence of psychosis. Client Response/Progress/Benefit: [] Pt participated at times during group discussions and interactions. Attentive during psychoeducation on automatic negative thoughts (ANTS) and cognitive distortions. This group was very psychoeducation heavy. Pt did participated during interactive discussions in which peers defined and gave examples of ANTS. Participated during interactive discussion on definition of cognitive distortions and examples related to the 10 cognitive distortions presented. Benefited from increased insight and awareness of cognitive distortions and their impact on emotions and behaviors. Will continue in IOP to prevent decompensation/re-admission to psych unit, increase healthy coping, improve social skills, and provide support. Narrative Note: []
--- NOTE | 2023-02-23 12:27 | PCM.BH.PN_ITS ---
Progress Note Progress Note: History of Present Illness/Interim History: The patient is a 42-year-old female with a history of depression, bipolar disorder and anxiety who is seen in follow-up at the [facility] behavioral health IOP program. I last saw the patient 3 weeks ago and at that time no changes were made to the medication at the patient's request. Patient reports being still depressed and anxious. She has a crying spell during the day often as she is very stressed about being evicted from her apartment on March 04. She has very little primary support and she is uncertain of who is going to help her move although she does have some options and plans. She has a child welfare caseworker she is working with also in finding a new place to live. The patient also may need a tooth pulled soon and is stressed by this. She remains depressed and is worried about her upcoming move. She is not sleeping as well as she would like still and is isolating herself still. She is unsure of how many hours she sleeps though. According to the staff the patient is doing well in the groups but has some struggles with applying the skills outside of the program. She denies thoughts of , passive or active suicidal ideation, plan for suicide, homicidal ideation, hallucinations or delusions. Current Psychiatric Medications: [] Same medications as last appointment. Patient is very hesitant to make any changes to her medications. Mental Status Examination: [] Patient is a 42-year-old female who appears normal for stated age and is casually dressed and groomed with good hygiene. She has no psychomotor agitation or retardation although she does have a mild tremor with intention when she picks up her coffee. She is aware of this and this is an old issue. She is cooperative and pleasant during the interview and at times laughs almost inappropriately but within reason. She still has some memory issues but speech is normal rate and rhythm and fluent with no pressure. Eye contact is fair and at times she does look away while she talks. Mood is anxious and depressed. Affect is full and normal. Thought process is goal-directed and organized. Thought content: Patient is worried about her upcoming eviction and move. There is no evidence of passive thoughts of , suicidal ideation, plan for suicide, homicidal ideation, hallucinations or delusions. Reality testing is intact. Insight is limited but some present. Judgment is intact. Impulsivity is moderate. Diagnoses: [] 1. History of bipolar disorder (currently depressed) 2. OCD 3. PTSD 4. Probable autism spectrum disorder 5. Primary support, housing and financial issues Plan: [] The patient will continue the IOP program at at [facility] as the structure, support, education and group therapy will hopefully prevent worsening of the patient's symptoms that could require hospitalization. She felt safe during the interview and if it anytime she does not feel safe she will let us know or go to the emergency room. I recommended increasing the patient's Lamictal to 100 mg p.o. nightly but the patient refuses any medication changes. She will continue to follow-up with her outpatient providers and I will see the patient in follow-up in a few weeks and as needed.
--- NOTE | 2023-02-23 12:34 | PCM.BH.PN_ITS ---
Progress Note Progress Note: And history of Present Illness/Interim History: The patient is a 29-year-old single female with a history of bipolar disorder and anxiety who is seen in follow-up at the [facility] behavioral health IOP program. I last saw the patient over 3 weeks ago and at that time no medication changes w ere made. The patient states that she had the start of her menstrual period on February 18, 2023 and she had a worsening of her depression which started about a week before her period and continues during her period. She has occasional thoughts of self-harm and cutting in a few days ago she had passive, fleeting suicidal ideation which she attributes to her premenstrual exacerbation. The patient states that her depression was a little better until the time of her period. Her anxiety has improved. She has been on oral contraceptive pills for she thinks maybe 3 months and they have been continuous and this has helped with menstrual cramps but she feels that the premenstrual symptoms she has emotionally have not changed at all. She denies active suicidal ideation, plan for suicide, homicidal ideation, hallucinations or delusions. Current Psychiatric Medications: [] Wellbutrin XL 300 mg p.o. every morning; Prozac 20 mg p.o. daily (x7 weeks); Lamictal 300 mg p.o. nightly; Seroquel 150 m g p.o. nightly; Seroquel 25 mg p.o. as needed for anxiety but the patient is only taking it every 3 days or so one of them. BuSpar 5 mg twice daily. Vistaril 50 mg only about every other day 1 time now. Mental Status Examination: [] The patient is a 28-year-old female who appears normal for stated age and is mildly disheveled today with good hygiene. She is ambulatory with a normal gait and has no psychomotor agitation or retardation. She has improved greatly in her ability and willingness to give a history. Eye contact is fair to good. Speech is normal rate and rhythm and f luent with no pressure. Mood is depressed. Affect is consistent constricted and tearful at times. Thought processes goal-directed and organized. Thought content: There is evidence of passive, fleeting suicidal ideation several days ago and evidence of occasional passive thoughts of . There is no evidence of active suicidal ideation, plan for suicide, homicidal ideation, hallucinations or delusions. Reality testing is intact. Judgment is intact. Insight is fair to good. Impulsivity is moderate. Diagnoses: [] 1. Bipolar 2 disorder (currently depression) 2. Generalized anxiety disorder 3. Strong cluster B traits 4. Anxiety over postconcussion syndrome Plan: [] The patient will continue the IOP program at [facility] as the structure, support, education and group therapy will hopefully prevent worsening of the patient's symptoms that might require hospitalization. She felt safe during the interview and if it anytime she does not feel safe she will let us know or go to the emergency room. The risk, options, possible complications and side effects of the medications were again discussed with the patient and she understands and accepts these. She agrees to add 10 mg of Prozac daily from cycle day 20 for 12 days each month to see if this helps with the premenstrual worsening of her depression. Prescription is sent in for this number, #12 with unknown number of refills. She will continue to follow-up with her outpatient providers and I will see the patient in follow-up in several weeks and as needed.
--- NOTE | 2023-02-23 15:37 | BH.MDN ---
Multi-Disciplinary Note - Note 30-min Individual Time Started:: 11:30 Date: 02/23/23 Eye Contact:: Good Motor Activity:: Appropriate Appearance:: Casual - pt reports she showered last night Speech:: Other - direct Mood:: Anxious Affect:: Congruent Thoughts:: Logical, No evidence of hallucinations/delusions noted Staff Interventions:: mindfulness skills, strengths perspective, goal setting, other - interpersonal effectiveness skills Time Stopped:: 12:00
--- NOTE | 2023-02-24 09:00 | BH.SGPN.GN ---
Behaviors/Verbalizations/Mental Status: [] Eye contact is good. Motor activity is appropriate. Appearance is casual. Speech is Appropriate. Mood is depressed/irritable. Affect is flat. Thoughts are linear and logical. No evidence of psychosis. Reviewed daily check in sheet and no reports of suicidal ideations or intent Client Response/Progress/Benefit: [] Pt was an active participant in group discussions. Attentive. Emotion for today is I don't know. Daily symptom tracker notes 5/5 for anxiety, depression, and irritability which she places on tracker everyday since admission. She was able to identify a couple mental health wins. She proud of herself for making it into IOP on a fairly consistent basis as she struggles in the AM due to poor sleep. Has noticed that since starting IOP she has been able to improve her sleep routine as she is often going to bed between 9p-10p. She continues to have significant stressors regarding her finances and housing. In jeopardy of being homeless at the end of the month. She continues to advocate for herself to local community resources (housing authority, casework supervisor, etc). Limited progress noted due in large part to significant psychosocial stressors. IOP has been beneficial to provided support, prevent further decompensation, and to increase healthy coping strategies. Narrative Note: []
--- NOTE | 2023-02-28 09:00 | BH.SGPN.GN ---
Behaviors/Verbalizations/Mental Status: []Eye contact good. Disheveled. Motor activity appropriate. Speech within normal limits. Affect flat, mood anxious. Thoughts linear, logical, no signs of hallucinations or delusions. Reviewed client?s symptom tracker, no risk for suicidal ideation, plan, or intent as of 02/28/2023. Client Response/Progress/Benefit: []Pt responded well to session, attentive and providing feedback. Pt reports feeling frustrated, confused, overwhelmed as pt found out she has to move from [place] to the [facility]. Pt is getting evicted from her apartment at the end of the week and pt has been highly anxious about finding an apartment. Pt will have a place to live now-she will be staying with a relative-but pt is anxious and sad about leaving her hometown behind. Pt acknowledged that having her uncle help her move has been positive and pt has been making amends more when she lashes out. Pt appeared to benefit from connecting with peers. Pt will discharge from IOP tx on Tuesday as pt will be moving. Pt will need referrals for [facility]. Narrative Note: [] Behaviors/Verbalizations/Mental Status: []Eye contact good. Disheveled. Motor activity appropriate. Speech within normal limits. Affect flat, mood anxious. Thoughts linear, logical, no signs of hallucinations or delusions. Reviewed client?s symptom tracker, no risk for suicidal ideation, plan, or intent as of 02/28/2023. Client Response/Progress/Benefit: []Pt responded well to session, attentive and providing feedback. Pt reports feeling frustrated, confused, overwhelmed as pt found out she has to move from [place] to the [facility]. Pt is getting evicted from her apartment at the end of the week and pt has been highly anxious about finding an apartment. Pt will have a place to live now-she will be staying with a relative-but pt is anxious and sad about leaving her hometown behind. Pt acknowledged that having her uncle help her move has been positive and pt has been making amends more when she lashes out. Pt appeared to benefit from connecting with peers. Pt will discharge from IOP tx on Tuesday as pt will be moving. Pt will need referrals for [facility]. Narrative Note: []
--- NOTE | 2023-02-28 11:11 | BH.MDN_ITS ---
Multi-Disciplinary Note - Note 30-min Individual Time Started:: 10:30 Date: 02/28/23 Purpose of session/treatment goals addressed:: To process current stressors and help pt practice emotional regulation and interpersonal effectiveness skills. Eye Contact:: Good Motor Activity:: Restless Appearance:: Disheveled Speech:: Appropriate Mood:: Anxious Affect:: Congruent Thoughts:: Logical, Other - concrete Staff Interventions:: thought challenging, mindfulness skills, discharge planning, strengths perspective, other - practiced assertive communication and helped pt manage anxiety during phone calls. Client Response:: Pt responded well to session, open to meeting with therapist. Pt reports being tired today and not sleeping well last night. Pt shared that since her last session, pt found housing, but she is still stressed about her living situation. Pt has to move in with a family member as pt has not been able to find metro housing in [place]. Pt is glad to have a place, but this also means leaving the environment she knows and the providers she has for mental health services. Pt wanted to make some phone calls during session to clarify upcoming psych appointments and get medication refills. Pt asked for referrals f or providers in the [place] area. Pt responded well to gentle thought challenging and used assertive communication on the phone. Pt has been showing progress with interpersonal effectiveness skills and not lashing out at others when she is overwhelmed. Pt felt less anxious at the end of session after processing her worries and getting clarification about her medication. Risks/Concerns:: No SI or HI noted. Pt is moving to [place], [place] and will need new mental health providers which is an added stressor for pt. Progress Toward Goals/Plan:: Pt's mood is still depressed and anxious, but pt is less stressed now about housing. Pt will be discharging from [facility] early due to moving out of [place]. Pt's symptoms are slightly improved since admission and pt did show progress in regulating emotions and improving interpersonal effectiveness skills. Pt's sleep is still poor and her energy levels are low. Pt has reported less intense PTSD symptoms lately which is positive. Pt will continue IOP tx for one more day before she moves at the end of the week. Pt will be given a list of referrals closer to [place]. Time Stopped:: 11:05
--- NOTE | 2023-02-28 11:20 | BH.SGPN.GN ---
Behaviors/Verbalizations/Mental Status: []Pt alert and oriented, casually dressed and groomed. Eye contact good. Motor activity appropriate. Speech within normal limits. Affect congruent, mood anxious. Thoughts linear, logical, no signs of hallucinations or delusions. Client Response/Progress/Benefit: []Pt was attentive and contributed to small group discussion. Pt worked with group to identify strategies to challenge one?s perspective which group identified: thought challenge, reaching out to supports, grounding skills, and accomplishment log. Connected with discussion on the importance of recognizing personal strengths in challenging perspective. Pt shared she wants to work on challenging perspective by practicing reaching out to her mental health providers to help challenge perspective. Benefited from identifying personal strengths and strategies for challenging perspective. Pt to continue IOP tx to promote mood stability, increase use of healthy coping skills, and prevent decompensation. Narrative Note: []
--- NOTE | 2023-03-02 15:28 | BH.DS ---
Discharge Summary Demographics Date of Admission:: 01/28/23 Discharge Date: 03/02/23 Presenting Problems at Admission:: Pt is a 42 year-old female with a history of bipolar disorder, PTSD, and self-reported autism spectrum disorder. Pt was referred to [facility] due to decompensation over the past several months and a recent self-admission to [facility]. Pt endorses a depressed mood, lack of energy, lack of motivation, poor sleep, crying spells, worthlessness, hopelessness, issues with memory, irritability, and isolation. Pt is not completing her ADLs and reports nothing is going right in my life. Pt endorses PTSD symptoms of flashbacks, nightmares, and avoidance after her finding her brother, who overdosed, in pt's apartment. Pt's symptoms are impacting her overall functioning. Discharge Diagnoses:: Bipolar Disorder unspecified, F 31.9; OCD; PTSD; Rule out autism spectrum disorder. Reason for Discharge:: Pt is losing housing at the end of this month and will be moving in with her relative in [place], [place] which is almost two hours away. Pt will have to terminate services at [facility] tx due to the commute. Treatment Progress During Treatment & Response: Pt did not complete the full [facility] program, so pt's DSM-5 scores were not calculated. However, pt did demonstrate progress in her receptiveness to skills, increased self-awareness, and willingness to learn interpersonal effectiveness skills. Pt also showed progress in reducing lashing out and building rapport with staff and peers. Issues Still to be Addressed:: Biggest stressor impacting pt's mental health is housing stress. Pt can continue to work on finding housing, implementing interpersonal effectiveness skills, and increasing social skills to help pt better navigate stressors and gain support. Pt was also working on increasing emotional regulation skills and improving self-talk. Discharge Recommendations/Instructions:: Pt can continue getting her medications managed through [facility]. Pt gets her medications sent in the mail and pt called to get these switched over on 02/28/23. Pt will need new outpatient counseling in [place] and pt was given referrals for several places including [facility] and [facility]. Discharge Handout
== END 2023-03-02 07:45 | disposition home or self-care (01) ==
LOC: BHIOP 07:44
PROVIDERS: PCP Family Medicine; Referring Provider Psychiatry & Neurology Psychiatry; Visit Provider Psychiatry & Neurology Psychiatry
DX: F31.31 Bipolar disorder, current episode depressed, mild (principal); F41.1 Generalized anxiety disorder
CPT/HCPCS: 99213; H2012; H2020; S9480; 90832

== ENCOUNTER 2023-02-15 15:02 | Emergency (ER) | payer MEDICAID, SELFPAY ==
[2023-02-15 15:03] VITALS: BP 152/112; PULSE 100; RESP 18; TEMP 35.7; O2SAT 96
== END 2023-02-15 16:14 | disposition left against medical advice (07) ==
LOC: ED 16:27
PROVIDERS: PCP Family Medicine
DX: R53.1 Weakness (principal)

== ENCOUNTER → 2023-10-26 | Outpatient (CLI) | payer MEDICARE, SELFPAY ==
--- OUTSIDE RECORDS SUMMARY | 2023-10-26 11:27 | XMS RPT_ITS | CCD ---
Author Name Unknown Address [address] [facility] [address] [place] [address] Organization [facility] Care Team Providers Care Cold Working Inspector Name Role Phone Shara Cabrera N Unavailable Shara Cabrera N Unavailable Corin Harrison Unavailable Unavaildavid olmos PHYSICIAN, NOT RECORDED Unavailable UnavailWin Ash MD Primary Care Provider Win Mejia MD Primary Care Provider Win Mejia MD Primary Care Provider Win Mejia MD Primary Care Provider Unavailable Primary Care Provider UnavailPRISCILLA Ding Attending Unavailable PHYSICIAN, NO PCP Primary Care Unavailable MICAELA WOODS Attending Unavailable JUANA VILLEGAS Attending Unavailable JUANA VILLEGAS Attending Unavailable JUANA VILLEGAS Attending Unavailable JUANA VILLEGAS Attending Unavailable System, Provider Not In Primary Care Provider Un available SYSTEM, PROVIDER NOT IN Primary Care UnavailNICOLA Quintero Attending Unavaila JUANA Gant Primary Care Unavailable JUANA VILLEGAS Referring Unavailable SEVER III, MOMO EDWARD Attending Unavail able JIHAN VILLEGASNIFER Admitting Unavailable Unavailable Primary Care Provider UnavailJuana Santos PA-C Primary Care Provider PHYSICIAN, NO PCP Primary Care Unavailable PHYSICIAN, NO PCP Primary Care Unavailable PHYSICIAN, NO PCP Primary Care Unavailable JUANA VILLEGAS Primary Care Unavailable SEVER III, MOMO EDWARD Attending Unavail able SEVER III, MOMO EDWARD Admitting Unavail able WIN MEJIA Primary Care Unavailable IAN YING Referring Unavailable WIN MEJIA Primary Care Unavailable PRABHA SPRINGER Attending Unavailable ELDERBROCK, WIN D Primary Care Unavailable ELDERBROCK, WIN D Primary Care Unavailable ELDERBROCK, WIN D Primary Care Unavailable ELDERBROCK, WIN D Primary Care Unavailable ELDERBROCK, WIN D Primary Care Unavailable ELDERBROCK, WIN D Primary Care Unavailable TETE ROMERO Attending Unavailable YOGI AMOS Referring Unavailable ELDERBROCK, WIN D Primary Care Unavailable ELDERBROCK, WIN D Primary Care Unavailable ELDERBROCK, WIN D Primary Care Unavailable ELDERBROCK, WIN D Referring Unavailable ELDERBROCK, WIN D Primary Care Unavailable MAIN HAMILTON Referring Unavailable ELDERBROCK, WIN D Primary Care Unavailable ELDERBROCK, WIN D Primary Care Unavailable ELDERBROCK, WIN D Primary Care Unavailable YENI HAMEED Referring Unavailable ELDERBROCK, WIN D Primary Care Unavailable ELDERBROCK, WIN D Primary Care Unavailable MISBAH MICHEL Referring Unavailable ELDERBROCK, WIN D Primary Care Unavailable PRABHA SPRINGER Attending Unavailable ELDERBROCK, WIN D Primary Care Unavailable ELDERBROCK, WIN D Primary Care Unavailable Allergies Allergy Classification Reported Allergen(s) Allergy Type Date of Onset Reaction(s) Facility (2 sources) influenza a virus a/ 010 (h1n1) antigen / influenza a virus a/ (h3n2) antigen / influenza b virus b/ antigen / influenza b virus b/ antigen drug allergy 6 [facility] Work Phone: (2 sources) Latex rubber gloves; Translations: [LATEX GLOVES] allergy to substance 6 [facility] Work Phone: (2 sources) morphine drug allergy 6 [facility] Work Phone: (2 sources) HANDSANITIZER; Translations: [HANDSANITIZER] allergy to substance 6 [facility] Work Phone: (20 sources) Benzalkonium; Translations: [BENZALKONIUM CHLORIDE] Drug Allergy 3 Other: See Comments [facility] (20 sources) Calcium oxide; Translations: [[place]] Drug Allergy 8 Intolerance, Anaphylaxis, Unknown [facility] Work Phone: (20 sources) Clindamycin; Translations: [CLINDAMYCIN] Drug Allergy 8 GI Upset, Nausea and vomiting [facility] Work Phone: (20 sources) Doxycycline; Translations: [DOXYCYCLINE] Drug Allergy 3 GI Upset [facility] Work Phone: (20 sources) Iodine; Translations: [IODINE] Drug Allergy 1 Rash [facility] (20 sources) Latex; Translations: [LATEX, NATURAL RUBBER] Drug Allergy 8 Rash [facility] Work Phone: (20 sources) meloxicam; Translations: [MELOXICAM] Drug Allergy 8 Unknown, Other (See Comments) [facility] Work Phone: (20 sources) metroNIDAZOLE; Translations: [METRONIDAZOLE] Drug Allergy 8 Hives [facility] Work Phone: (20 sources) montelukast; Translations: [MONTELUKAST] Drug Allergy 8 Unknown, Rash [facility] (20 sources) Morphine; Translations: [MORPHINE] Drug Allergy 1 Itching, Other (See Comments) [facility] Work Phone: (20 sources) Ondansetron; Translations: [ONDANSETRON HCL (PF)] Drug Allergy 1 Other: See Comments [facility] (20 sources) Penicillin; Translations: [PENICILLIN] Drug Allergy 6 Unknown [facility] Work Phone: (20 sources) predniSONE; Translations: [PREDNISONE] Drug Allergy 2 Other: See Comments, Other (See Comments) [facility] Work Phone: (20 sources) Ethyl Alcohol (Skin Cleanser); Translations: [ETHYL ALCOHOL (SKIN CLEANSER)] Propensity to adverse reactions 0 Rash [facility] Work Phone: (9 sources) Penicillins; Translations: [PENICILLINS] Propensity to adverse reactions to drug (disorder) 6 Unknown [facility] (6 sources) CALCIUM OXIDE; Translations: [CALCIUM OXIDE] Propensity to adverse reactions to drug (disorder) 8 [facility] (8 sources) INFLUENZA VIRUS VACCINE, SPECIFIC; Translations: [INFLUENZA VIRUS VACCINE, SPECIFIC] Propensity to adverse reactions to drug (disorder) 9 Other (See Comments) [facility] (1 source) Latex; Translations: [LATEX] Propensity to adverse reactions to drug (disorder) 3 [facility] (1 source) Ondansetron; Translations: [ONDANSETRON] Drug Allergy 1 [facility] (1 source) INFLUENZA VAC SPLIT QUAD; Translations: [INFLUENZA VAC SPLIT QUAD] Propensity to adverse reactions to drug (disorder) 9 [facility] (1 source) ALLERGIES NOT ON FILE; Translations: [ALLERGIES NOT ON FILE] Propensity to adverse reactions (disorder) [facility] Medications Current Medications Medication Drug Class(es) Dates Sig (Normalized) Sig (Original) ascorbic acid 500 mg oral tablet (20 sources) Vitamin C Start: 07-21-2022 End: 09-14-2023 take 1 tablet by mouth once daily ascorbic acid, vitamin C, (VITAMIN C) 500 mg tablet Indications: Fatigue, unspecified type Take 1 tablet by mouth once daily. 30 tablet 2 06/16/2023 09/14/2023 Active Completed/Discontinued Medications Medication Drug Class(es) Dates Sig (Normalized) Sig (Original) acetaminophen 500 mg oral tablet (20 sources) Start: 11-16-2020 End: 07-09-2022 take 1 tablet by mouth every six hours as needed for pain acetaminophen (TYLENOL EXTRA STRENGTH) 500 mg tablet Indications: Tooth decay Take 1 tablet by mouth every 6 hours as needed for pain for up to 60 doses. 60 tablet 3 07/09/2022 Active Problems Active Problems Problem Classification Problem Date Documented Da te Episodic/Chronic Abdominal pain (2 sources) Vulval pain; Translations: [Pelvic and perineal pain] Episodic Acquired foot deformities (20 sources) Acquired hallux valgus; Translations: [Hallux valgus (acquired), unspecified foot] Onset: 02-08-2011 02-08-2011 Chronic Adjustment disorders (20 sources) Adjustment disorder with mixed anxiety and depressed mood; Translations: [Adjustment disorder with mixed anxiety and depressed mood] Onset: 12-03-2015 12-03-2015 Chronic Allergic reactions (20 sources) Allergy to drug; Translations: [Allergy status to unspecified drugs, medicaments and biological substances status] Onset: 08-01-2019 08-01-2019 Episodic Asthma (20 sources) Asthma; Translations: [Unspecified asthma, uncomplicated] Onset: 09-25-2014 09-25-2014 Chronic Attention-deficit, conduct, and disruptive behavior disorders (20 sources) Attention deficit hyperactivity disorder, predominantly inattentive type; Translations: [Attention-deficit hyperactivity disorder, predominantly inattentive type] Onset: 12-03-2015 12-03-2015 Chronic Biliary tract disease (11 sources) Calculus of gallbladder with acute cholecystitis without obstruction; Translations: [Calculus of gallbladder with acute cholecystitis] Onset: 08-02-2023 Episodic Chronic obstructive pulmonary disease and bronchiectasis (20 sources) Chronic obstructive lung disease; Translations: [Chronic obstructive pulmonary disease, unspecified] Onset: 09-08-2023 03-28-2019 Chronic Coma; stupor; and brain damage (1 source) Daytime somnolence; Translations: [Somnolence] Episodic Conditions associated with dizziness or vertigo (2 sources) Lightheadedness; Translations: [Dizziness and giddiness] Episodic Diseases of mouth; excluding dental (2 sources) Disorder of tongue; Translations: [Disease of tongue, unspecified] Episodic Disorders of lipid metabolism (1 source) Hyperlipidemia; Translations: [Hyperlipidemia, unspecified] Chronic Disorders usually diagnosed in infancy, childhood, or adolescence (1 source) Autism spectrum disorder; Translations: [Autistic disorder] Onset: 09-08-2023 09-08-2023 Chronic Esophageal disorders (20 sources) Gastro-esophageal reflux disease with esophagitis; Translations: [Gastroesophageal reflux disease with esophagitis without hemorrhage] Onset: 08-25-2022 Chronic Headache; including migraine (3 sources) Headache; Translations: [Headache, unspecified headache type] Episodic Immunizations and screening for infectious disease (11 sources) Patient encounter status; Translations: [Encounter for screening for infections with a predominantly sexual mode of transmission] Onset: 07-14-2023 Episodic Intestinal infection (1 source) Viral gastroenteritis; Translations: [Viral intestinal infection, unspecified] Episodic Menstrual disorders (1 source) Break-through bleeding; Translations: [Excessive and frequent menstruation with irregular cycle] Chronic Miscellaneous mental health disorders (20 sources) Pain disorder with psychological factor; Translations: [Pain disorder with related psychological factors] Onset: 12-03-2015 12-03-2015 Chronic Mood disorders (20 sources) Bipolar disorder, most recent episode depression; Translations: [Bipolar disorder, in partial remission, most recent episode depressed] Onset: 05-18-2021 05-18-2021 Chronic Nausea and vomiting (2 sources) Nausea and vomiting; Translations: [Nausea with vomiting, unspecified] Episodic Nutritional deficiencies (5 sources) Vitamin D deficiency; Translations: [Vitamin D deficiency, unspecified] Onset: 10-14-2022 Chronic Other aftercare (3 sources) Post-discharge follow-up; Translations: [Encounter for follow-up examination after completed treatment for conditions other than malignant neoplasm] Episodic Other circulatory disease (1 source) Elevated blood-pressure reading without diagnosis of hypertension; Translations: [Elevated blood-pressure reading, without diagnosis of hypertension] Episodic Other circulatory disease (1 source) Abnormal peripheral pulse; Translations: [Other specified symptoms and signs involving the circulatory and respiratory systems] Episodic Other connective tissue disease (1 source) Pain in right arm; Translations: [Pain in right arm] Episodic Other connective tissue disease (1 source) Pain in lower limb; Translations: [Pain in right leg] Episodic Other connective tissue disease (1 source) Pain of toe of left foot; Translations: [Pain in left toe(s)] Episodic Other connective tissue disease (2 sources) Pain of toe of right foot; Translations: [Pain in right toe(s)] Episodic Other connective tissue disease (1 source) Plantar fasciitis; Translations: [Plantar fascial fibromatosis] Episodic Other connective tissue disease (1 source) Pain in left foot; Translations: [Pain in left foot] Episodic Other female genital disorders (2 sources) Vaginal discharge; Translations: [Other specified noninflammatory disorders of vagina] Episodic Other female genital disorders (1 source) Pruritus of vagina; Translations: [Other specified noninflammatory disorders of vagina] Episodic Other female genital disorders (1 source) Vaginal irritation; Translations: [Other specified noninflammatory disorders of vagina] Episodic Other female genital disorders (1 source) Other specified noninflammatory disorders of vagina; Translations: [Other specified noninflammatory disorders of vagina] Onset: 07-14-2023 Episodic Other gastrointestinal disorders (1 source) Diarrhea; Translations: [Diarrhea, unspecified] Episodic Other hereditary and degenerative nervous system conditions (4 sources) Essential tremor; Translations: [Essential tremor] Chronic Other lower respiratory disease (1 source) Cough; Translations: [Acute cough] Episodic Other nervous system disorders (1 source) Chronic pain; Translations: [Other chronic pain] Chronic Other nervous system disorders (1 source) Finding of hand region; Translations: [Tremor, unspecified] Episodic Other nervous system disorders (2 sources) Tremor; Translations: [Tremor, unspecified] Episodic Other nervous system disorders (1 source) Taste sense altered; Translations: [Parageusia] Episodic Other non-traumatic joint disorders (1 source) Shoulder pain; Translations: [Pain in left shoulder] Episodic Other nutritional; endocrine; and metabolic disorders (20 sources) Obese class I; Translations: [Obesity, unspecified] 07-22-2020 Chronic Other nutritional; endocrine; and metabolic disorders (11 sources) Obese class II; Translations: [Obesity, unspecified] Onset: 01-28-2023 01-28-2023 Chronic Other screening for suspected conditions (not mental disorders or infectious disease) (4 sources) Other specified abnormal findings of blood chemistry; Translations: [Encounter for screening mammogram for malignant neoplasm of breast] Onset: 07-20-2023 Episodic Other skin disorders (1 source) Eruption; Translations: [Rash and other nonspecific skin eruption] Episodic Other skin disorders (1 source) Keratosis; Translations: [Epidermal thickening, unspecified] Episodic Other upper respiratory disease (20 sources) Allergic rhinitis; Translations: [Allergic rhinitis, unspecified] Onset: 01-23-2018 01-23-2018 Chronic Other upper respiratory disease (2 sources) Allergic rhinitis, unspecified; Translations: [Allergic rhinitis, unspecified] Onset: 07-20-2023 Chronic Other upper respiratory disease (2 sources) Other specified disorders of nose and nasal sinuses; Translations: [Other specified disorders of nose and nasal sinuses] Onset: 08-02-2023 Episodic Otitis media and related conditions (1 source) Acute left otitis media; Translations: [Otitis media, unspecified, left ear] Episodic Residual codes; unclassified (20 sources) Obstructive sleep apnea syndrome; Translations: [Obstructive sleep apnea (adult) (pediatric)] Onset: 05-18-2021 05-18-2021 Chronic Residual codes; unclassified (1 source) Pain; Translations: [Pain, unspecified] Episodic Skin and subcutaneous tissue infections (2 sources) Cutaneous abscess of left hand; Translations: [Cutaneous abscess of left hand] Onset: 07-20-2023 Episodic Skull and face fractures (2 sources) Fracture of tooth (traumatic), subsequent encounter for fracture with routine healing; Translations: [Fracture of tooth (traumatic), subsequent encounter for fracture with routine healing] Onset: 07-20-2023 Episodic Spondylosis; intervertebral disc disorders; other back problems (20 sources) Degeneration of cervical intervertebral disc; Translations: [Other cervical disc degeneration, unspecified cervical region] Onset: 10-21-2016 05-11-2019 Chronic Substance-related disorders (20 sources) Tobacco user; Translations: [Nicotine dependence, unspecified, uncomplicated] Onset: 05-18-2021 05-18-2021 Chronic Superficial injury; contusion (4 sources) Contusion of unspecified part of head, initial encounter; Translations: [Insect bite of lower limb] Onset: 08-19-2016 08-26-2016 Episodic Viral infection (20 sources) Herpes simplex infection of skin; Translations: [Herpesviral infection of perianal skin and rectum] Onset: 01-09-2021 01-09-2021 Chronic Viral infection (3 sources) Viral disease; Translations: [Viral infection, unspecified] Episodic Past or Other Problems Problem Classification Problem Date Documented Date Episodic/Chronic Acute bronchitis (2 sources) Acute bronchitis, unspecified; Translations: [Acute bronchitis, unspecified] Onset: 04-29-2023 Episodic Contraceptive and procreative management (3 sources) Contraception ; Translations: [Encounter for surveillance of other contraceptives] Onset: 01-06-2023 Episodic Disorders of teeth and jaw (9 sources) Infection of tooth; Translations: [Periapical abscess without sinus] Onset: 11-04-2022 Episodic Genitourinary symptoms and ill-defined conditions (5 sources) Increased frequency of urination; Translations: [Frequency of micturition] Onset: 12-09-2022 Episodic Malaise and fatigue (11 sources) Fatigue; Translations: [Other fatigue] Onset: 12-29-2022 Episodic Mycoses (20 sources) Onychomycosis; Translations: [Tinea unguium] Onset: 11-23-2019 11-23-2019 Episodic Other aftercare (1 source) Encounter for follow-up examination after completed treatment for conditions other than malignant neoplasm; Translations: [Hospital discharge follow-up] Onset: 11-10-2022 Episodic Other connective tissue disease (20 sources) Pain in right lower limb; Translations: [Pain in right leg] Onset: 06-15-2022 Episodic Other connective tissue disease (1 source) Pain in left foot; Translations: [Pain in left foot] Onset: 11-10-2022 Episodic Other infections; including parasitic (20 sources) Trichomonal vaginitis; Translations: [Trichomonal vulvovaginitis] Onset: 08-01-2019 08-01-2019 Episodic Other non-traumatic joint disorders (1 source) Pain in left shoulder; Translations: [Acute pain of left shoulder] Onset: 11-08-2022 Episodic Other upper respiratory infections (11 sources) Acute upper respiratory infection; Translations: [Acute upper respiratory infection, unspecified] Onset: 11-10-2022 Episodic Spondylosis; intervertebral disc disorders; other back problems (20 sources) Low back pain; Translations: [Low back pain] Onset: 10-20-2011 10-20-2011 Episodic Sprains and strains (2 sources) Unspecified sprain of left foot, initial encounter; Translations: [Unspecified sprain of left foot, initial encounter] Onset: 08-19-2016 08-26-2016 Episodic Syncope (2 sources) Near syncope; Translations: [Syncope and collapse] Onset: 12-09-2022 Episodic Results Test Name Value Interpretation Reference Range Facil ity Vital Signs Date Time Vital Sign Value Performing Clinician Lucie lity 08-23-2023 11:04-0500 Body mass index (BMI) [Ratio] 31.84 kg/m2 [employer] Sever III, DO Work Phone: [facility] 08-23-2023 11:04-0500 Body temperature 98.49 [degF] Momo Sever III, DO Work Phone: [facility] 08-23-2023 11:04-0500 Body weight 92.22 kg Momo Wright III, DO Work Phone: [facility] 08-23-2023 11:04-0500 Diastolic blood pressure 96 mm[Hg] Momo Wright III, DO Work Phone: [facility] Encounters Encounter Date Encounter Type Care Provider Facility Start: 09-07-2023 Orders Only Momo Wright DO Work Phone: [facility] General Surgery Procedures Date Procedure Procedure Detail Performing Clinician Start: 07-14-2023 Microscopic observat ion [Identifier] in Cervix by Cyto stain Momo Wright III, DO Work Phone: Start: 02-09-2023 STREP A MOLECULAR (POC) Shara Morel SECURITY INCIDENT HANDLER.PARK MAINTAINER Work Phone: Start: 11-12-2022 STREP A MOLECULAR (POC) Dorys Martins APRN.PARK MAINTAINER Work Phone: Start: 09-07-2022 Urnls dip stick/tabl et rgnt auto w/o microscopy Richard Kapoor PA-C Work Phone: Start: 08-12-2022 Urnls dip stick/tabl et rgnt auto w/o microscopy Dorys Martins SECURITY INCIDENT HANDLER.PARK MAINTAINER Work Phone: Start: 08-03-2022 Urnls dip stick/tabl et rgnt auto w/o microscopy Shannon BYRDC Work Phone: Start: 07-19-2022 Spmtry w/vc expirato ry reema w/wo mxml vol vntj Juana Gallegos PAJeremiahC Work Phone: Start: 07-14-2022 STREP A MOLECULAR (POC) Ian Ying MD Work Phone: Start: 05-31-2022 BACTERIAL VAGINOSIS AMPLIFICATION Shara Jaramillo SECURITY INCIDENT HANDLER.CNM Work Phone: Start: 05-31-2022 Iadna chlamydia trachomatis amplified probe tq Shara Jaramillo APRN.CNMarifer Work Phone: Start: 05-31-2022 Urnls dip stick/tabl et rgnt auto w/o microscopy Shara Jaramillo APRN.CNMarifer Work Phone: Start: 04-02-2022 STREP A MOLECULAR (POC) Ian Ying MD Work Phone: Start: 08-19-2021 MG MAMMO OUTSIDE MELINA GES (NO INTERPRETATION) Order Transcribing User Start: 08-19-2021 Mammography Kaleigh Sampson MD Work Phone: Start: 12-01-2020 Adult depression scr eening assessment Kaleigh Sampson MD Work Phone: Start: 06-20-2020 MG MAMMO OUTSIDE MELINA GES (NO INTERPRETATION) Order Transcribing User Plan of Treatment Date Care Activity Detail Author Start: 07-14-2028 Screening for malignant neoplasm of cervix [facility] Start: 01-22-2025 DTaP,Tdap,and Td Vaccines (8 - Td or Tdap) DTaP,Tdap,and Td Vaccines (8 - Td or Tdap) [facility] Start: 01-22-2025 Tetanus vaccination Tetanus: Every 10yrs [facility] Start: 01-22-2025 Urine microalbumin profile [facility] Start: 07-19-2024 End: 07-19-2024 Patient encounter procedure 07/19/2024 2:00 PM EST [facility] [address] [place] [address] [address] [place] [address] Priscilla Rodriguez CNM [address] [facility] [address] [place] [address] Cheo Lewis Start: 07-14-2024 History and physical examination, annual for health maintenance Wellness Visit [facility] Start: 11-11-2023 ANNUAL PCP TEAM CHRONIC DISEASE VISIT ANNUAL PCP TEAM CHRONIC DISEASE VISIT [facility] Start: 11-05-2023 ANNUAL PCP TEAM CHRONIC DISEASE VISIT ANNUAL PCP TEAM CHRONIC DISEASE VISIT [facility] Start: 10-08-2023 ANNUAL PCP TEAM CHRONIC DISEASE VISIT ANNUAL PCP TEAM CHRONIC DISEASE VISIT [facility] Start: 09-27-2023 End: 09-27-2023 Follow-up encounter 09/27/2023 2:00 PM EST Follow-Up [facility] Physician [facility] General Surgery [address] [place] [address] Momo Wright III, DO [address] [place] [address] [facility] Physician [facility] General Surgery Start: 09-15-2023 ANNUAL PCP TEAM CHRONIC DISEASE VISIT ANNUAL PCP TEAM CHRONIC DISEASE VISIT [facility] Start: 09-14-2023 End: 09-14-2023 Admission to same day surgery center 09/14/2023 1:35 PM EST - 09/14/2023 2:40 PM EST Surgery [facility] [address] [place] [address] Momo Wright III, DO [address] [address] [place] [address] ROBOTIC CHOLECYSTECTOMY WITH INDOCYANINE GREEN CHOLANGIOGRAM [facility] Immunizations Immunization Date Immunization Notes Care Provider Fa [facility] 09-17-2019 influenza virus vaccine, unspecified formulation No Pcp SECURITY INCIDENT HANDLER [facility] 09-15-2016 influenza, injectabl e, quadrivalent, contains preservative Kaleigh Sampson MD Work Phone: [facility] 09-15-2016 influenza virus vaccine, unspecified formulation [facility] 01-22-2015 tetanus toxoid, reduced diphtheria toxoid, and acellular pertussis vaccine, adsorbed Kaleigh Sampson MD Work Phone: [facility] 09-28-2012 influenza virus vaccine, unspecified formulation Kaleigh Sampson MD Work Phone: [facility] 03-19-2011 hepatitis B vaccine, pediatric or pediatric/adolescent dosage Kaleigh Sampson MD Work Phone: [facility] Work Phone: 03-19-2011 hepatitis B vaccine, unspecified formulation [place] APRN.CNP Work Phone: [facility] 08-03-2010 hepatitis B vaccine, adult dosage Kaleigh Sampson MD Work Phone: [facility] Work Phone: 08-03-2010 hepatitis B vaccine, pediatric or pediatric/adolescent dosage Kaleigh Sampson MD Work Phone: [facility] Work Phone: 08-03-2010 influenza virus vaccine, whole virus Kaleigh Sampson MD Work Phone: [facility] Work Phone: 06-19-2010 hepatitis B vaccine, adult dosage Kaleigh Sampson MD Work Phone: [facility] Work Phone: 06-19-2010 hepatitis B vaccine, pediatric or pediatric/adolescent dosage Kaleigh Sampson MD Work Phone: [facility] Work Phone: 06-05-2010 influenza virus vaccine, unspecified formulation Kaleigh Sampson MD Work Phone: [facility] Work Phone: 12-18-2009 hepatitis B vaccine, adult dosage Kaleigh Sampson MD Work Phone: [facility] Work Phone: 09-06-2003 tetanus toxoid, reduced diphtheria toxoid, and acellular pertussis vaccine, adsorbed Kaleigh Sampson MD Work Phone: [facility] 07-26-1988 trivalent poliovirus vaccine, live, oral Kaleigh Sampson MD Work Phone: [facility] 09-14-1985 diphtheria and tetan us toxoids, adsorbed for pediatric use Kaleigh Sampson MD Work Phone: [facility] 02-03-1982 diphtheria, tetanus toxoids and acellular pertussis vaccine Kaleigh Sampson MD Work Phone: [facility] 02-03-1982 trivalent poliovirus vaccine, live, oral Kaleigh Sampson MD Work Phone: [facility] 05-28-1980 measles, mumps and rubella virus vaccine Kaleighavila Sampson MD Work Phone: [facility] 06-05-1979 diphtheria, tetanus toxoids and acellular pertussis vaccine Kaleigh Ginette Sampson MD Work Phone: [facility] 06-05-1979 trivalent poliovirus vaccine, live, oral Kaleigh Sampson MD Work Phone: [facility] 04-05-1979 diphtheria, tetanus toxoids and acellular pertussis vaccine Kaleigh Ginette Sampson MD Work Phone: [facility] 04-05-1979 trivalent poliovirus vaccine, live, oral Kaleigh Sampson MD Work Phone: [facility] 02-03-1979 diphtheria, tetanus toxoids and acellular pertussis vaccine Kaleigh Sampson MD Work Phone: [facility] 02-03-1979 trivalent poliovirus vaccine, live, oral Kaleigh Sampson MD Work Phone: [facility] Payers Date Payer Category Payer Medicare [id number] 2023 Medicare MEDICARE MEDICAR E PART A & B [id number] 2023-Present [phone] [facility] J15 PART [place] [place] [address] [id number] 2018 Medicaid [id number] 2018 Private Health Insurance [id number] 2017 Medicaid [facility] MEDICAID [facility] MEDICAID [id number] 2017-Present [phone] [address] [place] [address] Medicaid [id number] 2017 Medicaid [id number] 1978 Unknown [id number] 1978 Unknown [id number] 1978 Unknown [id number] 1978 Unknown [id number] 1978 Unknown [id number] 1978 Unknown [id number] 1978 Unknown [id number] 1978 Unknown [id number] Social History Date Type Detail Facility Start: 08-19-2021 End: 04-29-2023 Tobacco smoking status MNIS Smokes tobacco daily [facility] End: 03-09-2021 History of tobacco use Cigarette Smoker [facility] Start: 08-19-2021 End: 09-11-2023 Cigarettes smoked current (pack per day) - Reported 1 [facility] Work Phone: Start: 08-19-2021 End: 04-29-2023 Tobacco use and exposure Smokeless tobacco non-user [facility] Start: 12-01-2021 End: 09-11-2023 Alcohol intake Ex-drinker (finding) [facility] Start: 03-04-2021 History SDOH Alcohol Comment Quit 4 months ago. [facility] Start: 06-20-2020 End: 07-04-2020 History SDOH Social Connections Phone 5 [facility] Start: 06-20-2020 End: 07-04-2020 History SDOH Social Connections Get Together 2 [facility] Start: 06-20-2020 History SDOH Social Connections Jewish 3 [facility] Start: 06-20-2020 End: 07-04-2020 History SDOH Social Connections Membership 1 [facility] Start: 06-20-2020 History SDOH Social Connections Living 7 [facility] Start: 06-20-2020 History SDOH Physica l Activity DPW 0 [facility] Start: 06-20-2020 History SDOH Stress 4 [facility] Start: 1980 Sex Assigned At Not on file [facility] Start: 11-15-2021 End: 08-05-2022 Exposure to SARS-CoV-2 (event) Not sure [facility] Start: 05-11-2022 End: 06-11-2022 Exposure to SARS-CoV-2 (event) Yes [facility] Start: 09-07-2022 Alcohol Comment Quit 12/2021 [facility] Start: 02-22-2023 End: 09-11-2023 Tobacco use panel [facility] Work Phone: National Score (1-100), lower number is lower risk 80 [facility] Are you now , , , , never or living with a partner? Never [facility] Work Phone: Do you feel stress - tense, restless, nervous, or anxious, or unable to sleep at night because your mind is troubled all the time - these days [OSQ] Rather much [facility] Work Phone: (I/We) worried wheth er (my/our) food would run out before (I/we) got money to buy more. Never true [facility] NEGATED: Highlighted rowStart: NEENAF History of tobacco use Passive smoker [facility] Clinical Notes 01-03-2013 to 09-11-2023 Momo Wright III, DO - 09/11/2023 9:20 PM ESTTelephone Encounter - Luisana Madden MA - 07/12/2023 11:20 AM ESTTelephone Encounter - Misbah Michel APRN.CNP - 07/12/2023 10:50 AM EST Note Date & Type Note Facility 09-11-2023 History of Present illness Narrative Subjective Angelica Andujar is a 42 y.o. female who was referred by Juana Villegas for evaluation of gallbladder problems. Problems were first noted 3 months ago. Current symptoms include RUQ Pain, nausea, epigastric pain. Patient denies pruritis, jaundice. Symptoms have gradually worsened. Past Medical History: Diagnosis Date Asthma Autism Calculus of gallbladder with acute cholecystitis without obstruction 08/23/2023 COPD (chronic obstructive pulmonary disease) (HCC) Sciatica History reviewed. No pertinent surgical history. Social History Social History Narrative Not on file Allergies: Calcium oxide; Morphine; Clindamycin; Influenza virus vaccine, specific; Meloxicam; Metronidazole; Penicillins; Prednisone; Latex, natural rubber; and Montelukast Current Outpatient Medications Medication Sig Dispense Refill benztropine (COGENTIN) 1 MG tablet Take 1 (one) tablet (1 mg total) by mouth 2 (two) times a day . Lactobacillus acidoph-L.bulgar (LACTINEX) 100 million cell tablet Take 1 (one) tablet (1 g total) by mouth 2 (two) times a day . lamoTRIgine (LAMICTAL) 100 MG tablet Take 1 (one) tablet (100 mg total) by mouth daily . pantoprazole (PROTONIX) 40 MG tablet Take 1 (one) tablet (40 mg total) by mouth daily . propranoloL (INDERAL) 10 MG tablet Vraylar 1.5 mg capsule No current facility-administered medications for this visit. The following portions of the patient's history were reviewed and updated as appropriate: allergies, current medications, past family history, past medical history, past social history, past surgical history, and problem list . Review of Systems Review of Systems Constitutional: Positive for appetite change. Negative for activity change, chills, fever and unexpected weight change. HENT: Negative for trouble swallowing. Respiratory: Negative for cough, choking, chest tightness and wheezing. Cardiovascular: Negative for chest pain, palpitations and leg swelling. Gastrointestinal: Positive for abdominal pain. Negative for abdominal distention, anal bleeding, blood in stool, constipation, diarrhea, nausea and vomiting. Genitourinary: Negative for difficulty urinating, flank pain and frequency. Musculoskeletal: Negative for arthralgias and myalgias. Skin: Negative for color change. Neurological: Negative for syncope and weakness. Objective BP (!) 139/96 Comment: 141/92 Pulse (!) 100 Temp 98.5 F (36.9 C) Resp 16 Wt 92.2 kg (203 lb 4.8 oz) SpO2 98% BMI 31.84 kg/m Physical Exam Constitutional: Appearance: Normal appearance. She is not ill-appearing. HENT: Head: Normocephalic and atraumatic. Nose: Nose normal. Mouth/Throat: Mouth: Mucous membranes are moist. Eyes: Extraocular Movements: Extraocular movements intact. Pupils: Pupils are equal, round, and reactive to light. Cardiovascular: Rate and Rhythm: Normal rate and regular rhythm. Pulses: Normal pulses. Heart sounds: Normal heart sounds. Pulmonary: Effort: Pulmonary effort is normal. Breath sounds: Normal breath sounds. Abdominal: General: Bowel sounds are normal. There is no distension. Palpations: Abdomen is soft. There is no mass. Tenderness: There is no abdominal tenderness. There is no guarding. Hernia: No hernia is present. Musculoskeletal: General: No swelling. Normal range of motion. Cervical back: Normal range of motion and neck supple. Right lower leg: No edema. Left lower leg: No edema. Skin: General: Skin is warm and dry. Capillary Refill: Capillary refill takes less than 2 seconds. Coloration: Skin is not jaundiced. Findings: No erythema. Neurological: General: No focal deficit present. Mental Status: She is alert and oriented to person, place, and time. Cranial Nerves: No cranial nerve deficit. Sensory: No sensory deficit. Psychiatric: Mood and Affect: Mood normal. Imaging No valid procedures specified. No results found for this or any previous visit. No valid procedures specified. Assessment: Angelica was seen today for consult. Diagnoses and all orders for this visit: Calculus of gallbladder with acute cholecystitis without obstruction - Ambulatory referral to General Surgery - Case Request Endoscopy: ROBOTIC CHOLECYSTECTOMY WITH INDOCYANINE GREEN CHOLANGIOGRAM Plan: Robotic Cholecystectomy with ICG Cholangiogram. 2. I discussed the nature of gallbladder disease with the patient. I discussed the operation of cholecystectomy in detail and the complications related to the operation and the anesthesia. The patient understands this, any and all questions were answered to the patient's satisfaction. documented in this encounter [facility] 07-12-2023 Miscellaneous Notes Unable to reach patient. Left detailed message on patient's VM (per demo notes) with provider message. Luisana Madden MA Patient is no longer following with us. This medication can be purchased over the counter. Misbah Michel APRN.JOSE ROBERTO Patient calling and requesting refill of her Vit D3 to [facility]. Currently patient has NO PCP and per telephone note 04/29/23, patient stated she moved to [place], [place]. Per note, pt was advised at that time to seek a provider near her for further medical needs. Asking if Dr. Mejia is willing to send temporary refill for patient? Please call patient with update. Thank you. documented in this encounter [facility] 07-12-2023 Miscellaneous Notes Patient requesting allergy list be faxed to [facility] at FAX #: [phone]. Pt states she has an appt there at 2pm today and requesting this be faxed. Faxed as requested. Viki Brady RN documented in this encounter [facility] 06-16-2023 Miscellaneous Notes The following approved medication requests have been transmitted electronically. Requested Prescriptions Pending Prescriptions Disp Refills ascorbic acid, vitamin C, (VITAMIN C) 500 mg tablet 30 tablet 2 Sig: Take 1 tablet by mouth once daily. Prabha Springer APRN.PARK MAINTAINER Patient has been identified by name and date of : Yes, Provider Date Time Patient phones for refill(s): Requested Prescriptions Pending Prescriptions Disp Refills ascorbic acid, vitamin C, (VITAMIN C) 500 mg tablet 30 tablet Sig: Take 1 tablet by mouth once daily. Date of last office visit with pcp: Date of last office visit in primary care: 11/10/22 Last 2 Encounter Wt Readings: Date: Wt: 02/15/2023 103 kg (227 lb) 02/09/2023 103 kg (227 lb) Previous labs/tests for medication: Please advise. Thank you. Negrita Grant RN documented in this encounter [facility] 05-03-2023 Miscellaneous Notes Pt returned call and given provider's message below with verbalized understanding. Called and left a voicemail for the Patient to call back and ask for a nurse to receive the providers message. Maureen Benjamin, JACKSON I agree with the advice given; she would need to be seen and evaluated further before being able to say anything about her weight loss. Win Mejia MD Pt called in and reports she has lost 20 lbs in the last 2 months and she was concerned about it. I told her she would need to come in and be seen. She states she lives in [facility] now and has no way to get here. She also reports she has a cough and asked if it could be Covid. I asked if she had a Covid test, and she states no. She says she has Autism and wouldn't be able to figure out how to give herself a Covid test even if she had one. Let Pt know she should go to the and they could run a Covid test on her. She is going to ask her neighbor to take her. I told her she needs to call around and see if she can find a provider in her area that she can transfer to. I told her we don't have any providers down there, so we wouldn't be able to help her. She wanted to know providers thoughts on her issues. Please call and advise. documented in this encounter [facility] 05-01-2023 Miscellaneous Notes Reason for Call: Anxiety, weight loss Outcome: Recommended see Therapist/PCP within 3 days. Patient acknowledges understanding and states she will contact therapist and find PCP. Reason for Disposition [1] Symptoms of anxiety or panic AND [2] has not been evaluated for this by physician Answer Assessment - Initial Assessment Questions 1. CONCERN: Filed for disability, moved, lost job 2. ANXIETY SYMPTOMS: Overwhelmed, anxious 3. ONSET: 03/04/23 Moved to [place], living with cousin who is critical, non-supportive 4. SEVERITY: 6 or 7/10 5. FUNCTIONAL IMPAIRMENT: Fixations on food, medicine contamination 6. HISTORY:Treated before with medications, counseling, programs 7. RISK OF HARM - SUICIDAL IDEATION: Denies any thoughts or plans of hurting self or others 8. TREATMENT: Recent - 4 week program in [place], had to end early due to loss of job and moving 9. TREATMENT - THERAPIST: Dipika James - Therapist with [employer], talks to every other Tuesday 10. POTENTIAL TRIGGERS: Worries about brother, currently incarcerated since November 2022 10. PATIENT SUPPORT: No other family member in [place], [place] 11. OTHER SYMPTOMS: Unexplained weight loss-lost 20 pounds within past 2 months. Cough - has COPD, Asthma and cigarette smoker, with increased cigarette usage. Right hand numb 12. : Denies Patient states she was seen in [facility] ED 04/29/23, diagnosed with bronchitis. Protocols used: Anxiety and Panic [id number] documented in this encounter [facility] 03-14-2023 Miscellaneous Notes TC to patient who verbalized understanding of providers message and has no further questions at this time. NASEEM Carrasco The loratadine is OK to take; I have not seen any dementia from it. She may stay on the 4000 IU of vitamin D daily. Win Mejia MD Pt calling in as she is currently taking Loratidine 10 mg daily. She wants to know if Dr. Mejia feels it is safe to take as she read it can lead to dementia. Also question about her Vitamin D. Pt states she is currently taking 2 2000 international unit(s) per day for a total of 4000 international unit(s). See TE 07/14/22 where pt requested to take this amt due to seasonal depression. Pt states she is still moderately depressed. Denies suicidal/homicidal ideation. Is seeing a counselor Dipika James at [facility]. She is wondering if she should stay on the 4000 international unit(s) of Vitamin D or should she only be taking one? documented in this encounter [facility] 02-28-2023 Miscellaneous Notes Pt notified. Elsy Villegas Ma It is OK for her to use the Nicoderm patches Win Mejia MD Patient reports she was ordered Nicoderm patches by Prabha Springer CNP last May. Reports she never started them. States she will soon be moving to a different place where she is not able to smoke or smell of smoke and is considering starting the Nicoderm now. Patient states she notes on Nicoderm box that pt should not take the medication if certain health issues are present. Questions/Concerns are: Nicoderm instructions state not to take medication if BP is elevated and not controlled by medications. Pt states she has elevated BP at times and she does not take medications for this. OK to use Nicoderm if using the Depo shot ? Nicoderm instructions states not to take med if have certain skin allergies and she states she has sensitive skin. Medication not to be taken if issues with stomach ulcers. Pt states she has GERD and wonders if ok to take Nicoderm? Medication should not be taken with certain antidepressants. Pt states she is on a depression medication. Please advise pt if ok to start Nicoderm? Pt asks that a detailed message be left on her VM even if her name is not stated on VM. States I don't want to have to play phone tag . documented in this encounter [facility] 02-22-2023 Note HNO ID: [id number] Author: GERARDO Hein Service: ? Author Type: Physician Management Tech Type: Progress Notes Filed: 02/22/2023 10:15 AM Note Text: This note was created using GreenGoose!ter. Subjective Angelica Andujar is a 42 year old female. HPI 42-year-old female presents for right-sided dental pain/facial pain. Patient states she started getting dental pain a couple of days ago. She does have a known cracked tooth on that side. She has a follow-up with her dentist next month. She has a follow-up with her PCP . She is also complaining of a blister on her left middle finger. Denies injuring herself or burning herself that she can recall. No fevers. No drainage. No vomiting. No other complaints. PAST MEDICAL HISTORY Diagnosis Date 11/2009 Anxiety Arthritis Asthma COPD (chronic obstructive pulmonary disease) ([facility]) Depression Obesity (BMI 30.0-34.9) CHARLES (obstructive sleep apnea) Recurrent UTI Seasonal allergies STD (sexually transmitted disease) Tobacco use disorder 05/18/2021 PAST SURGICAL HISTORY Procedure Laterality Date COLONOSCOPY W/BIOPSY SINGLE/MULTIPLE 03/02/11 ESOPHAGOGASTRODUODENOSCOPY TRANSORAL DIAGNOSTIC 11/14/2012 EGD ESOPHAGOGASTRODUODENOSCOPY TRANSORAL DIAGNOSTIC 06/02/2020 EGD MED INC ALL EX DRUG 11/2009 PAST SURGICAL HISTORY OF WISDOM TEETH ALLERGIES Benzalkonium Chloride; Clindamycin; Doxycycline; Flagyl [Metronidazole]; Hand Sales Assistant [employer] [Ethyl Alcohol (Skin Cleanser)]; Iodine; Latex, Natural Rubber; [place]; Meloxicam; Morphine; Penicillin; Prednisone; Singulair [Montelukast]; and Zofran [Ondansetron Hcl (Pf)] MEDICATIONS ascorbic acid, vitamin C, (VITAMIN C) 500 mg tabletTake 1 tablet by mouth once daily.Disp: 30 tabletRfl: 5 loratadine (CLARITIN) 10 mg tabletTake 1 tablet by mouth once daily.Disp: 28 tabletRfl: [address] (PROTONIX) 40 mg tabletTake 1 tablet by mouth once daily.Disp: 30 tabletRfl: 11 triamcinolone (KENALOG) 0.025 % creamApply 1 application to affected area twice daily.Disp: 30 gRfl: 0 albuterol HFA (PROVENTIL HFA, VENTOLIN HFA) 90 mcg/actuation inhalerInhale 2 Puffs as instructed every 6 hours as needed for wheezing/shortness of breath.Disp: 18 gRfl: 3 beclomethasone (QVAR REDIHALER) 80 mcg/actuation inhalerInhale 2 Puffs as instructed twice daily.Disp: 1 EachRfl: 5 miconazole (MONISTAT 7) 2 % vaginal creamUse 1 Applicator vaginally daily at bedtime.Disp: 45 gRfl: 0 (Patient not taking: Reported on 02/15/2023) medroxyPROGESTERone (DEPO-PROVERA) 150 mg/mL injectionuse as directed intramuscularly EVERY 12 WEEKSDisp: 1 mLRfl: 4 propranolol (INDERAL) 10 mg tabletTAKE 1 TABLET BY MOUTH THREE TIMES A DAY IF TREMORS PERSIST, IF NOT, MAY TRY TO WEAN DOWN DAILY DOSEDisp: 84 tabletRfl: 5 multivitamin with folic acid ([facility] MULTIVITAMIN) 400 mcgTake 1 tablet by mouth once daily.Disp: 30 tabletRfl: 11 lactobacillus rhamnosus ([facility] Yulex [facility]) 10 billion cell -200 mg capsuleTake 1 capsule by mouth once daily.Disp: 30 capsuleRfl: 11 SUMAtriptan (IMITREX) 50 mg tabletTake one tablet at onset of headache, may repeat in two hours if needed. No more than two tablets in 24 hoursDisp: 6 tabletRfl: 1 naproxen (NAPROSYN) 500 mg tabletTake 1 tablet by mouth twice daily with meals. Takes as neededDisp: 60 tabletRfl: 5 sodium chloride (SALINE MIST) 0.65 % nasal sprayUse 1 [place] in the nose as needed for cold/allergy symptoms.Disp: 44 mLRfl: 0 sucralfate (CARAFATE) 1 gram tabletTake 1 tablet by mouth before meals and at bedtime.Disp: 120 tabletRfl: 1 carbamide peroxide (DEBROX) 6.5 % otic solutionUse 5 Drops in both ears twice daily.Disp: 15 mLRfl: 0 (Patient not taking: Reported on 02/09/2023) Cholecalciferol, Vitamin D3, 50 mcg (2,000 unit) capTake 2 capsules by mouth once daily.Disp: 56 capsuleRfl: 11 acetaminophen (TYLENOL EXTRA STRENGTH) 500 mg tabletTake 1 tablet by mouth every 6 hours as needed for pain for up to 60 doses.Disp: 60 tabletRfl: 3 nicotine (NICODERM) 21 mg/24 hrApply 1 Patch as directed every 24 hours.Disp: 30 PatchRfl: 3 Nicotine Polacrilex [address] lozenge[address] 1 Lozenge between cheek and gum as needed.Disp: 108 LozengeRfl: 3 diclofenac (VOLTAREN ARTHRITIS PAIN) 1 % topical gelApply 2 g to affected area four times daily.Disp: 50 gRfl: 0 (Patient not taking: Reported on 02/09/2023) cyclobenzaprine (FLEXERIL) 10 mg tabletTake 1 tablet by mouth three times daily as needed for muscle spasm.Disp: 18 tabletRfl: 0 fluticasone (FLONASE) 50 mcg/actuation nasal sprayUse 2 Sprays in each nostril once daily. Rinse mouth after use.Disp: 1 EachRfl: 0 promethazine (PHENERGAN) 25 mg tablettake 1 tablet by mouth three times a day if needed for nausea and vomitingDisp: 60 tabletRfl: 3 Foot Care Products (GEL BUNION CUSHION) pads1 Device once daily. Apply pad to area daily as neededDisp: 14 EachRfl: 2 multivitamin tabletTake 1 tablet by mouth once daily.Disp: 3 (more content not included)... [facility] 02-22-2023 History of Present illness Narrative Images from the original note were not included. This note was created using GreenGoose!ter. Subjective Angelica Andujar is a 42 year old female. HPI 42-year-old female presents for right-sided dental pain/facial pain. Patient states she started getting dental pain a couple of days ago. She does have a known cracked tooth on that side. She has a follow-up with her dentist next month. She has a follow-up with her PCP . She is also complaining of a blister on her left middle finger. Denies injuring herself or burning herself that she can recall. No fevers. No drainage. No vomiting. No other complaints. PAST MEDICAL HISTORY Diagnosis Date 11/2009 Anxiety Arthritis Asthma COPD (chronic obstructive pulmonary disease) ([facility]LY [facility] [place]) Depression Obesity (BMI 30.0-34.9) CHARLES (obstructive sleep apnea) Recurrent UTI Seasonal allergies STD (sexually transmitted disease) Tobacco use disorder 05/18/2021 PAST SURGICAL HISTORY Procedure Laterality Date COLONOSCOPY W/BIOPSY SINGLE/MULTIPLE 03/02/11 ESOPHAGOGASTRODUODENOSCOPY TRANSORAL DIAGNOSTIC 11/14/2012 EGD ESOPHAGOGASTRODUODENOSCOPY TRANSORAL DIAGNOSTIC 06/02/2020 EGD MED INC ALL EX DRUG 11/2009 PAST SURGICAL HISTORY OF WISDOM TEETH ALLERGIES Benzalkonium Chloride; Clindamycin; Doxycycline; Flagyl [Metronidazole]; Hand Sales Assistant Institutional Sales [Ethyl Alcohol (Skin Cleanser)]; Iodine; Latex, Natural Rubber; [place]; Meloxicam; Morphine; Penicillin; Prednisone; Singulair [Montelukast]; and Zofran [Ondansetron Hcl (Pf)] MEDICATIONS ascorbic acid, vitamin C, (VITAMIN C) 500 mg tablet^Take 1 tablet by mouth once daily.^Disp: 30 tablet^Rfl: 5 loratadine (CLARITIN) 10 mg tablet^Take 1 tablet by mouth once daily.^Disp: 28 tablet^Rfl: [address] (PROTONIX) 40 mg tablet^Take 1 tablet by mouth once daily.^Disp: 30 tablet^Rfl: 11 triamcinolone (KENALOG) 0.025 % cream^Apply 1 application to affected area twice daily.^Disp: 30 g^Rfl: 0 albuterol HFA (PROVENTIL HFA, VENTOLIN HFA) 90 mcg/actuation inhaler^Inhale 2 Puffs as instructed every 6 hours as needed for wheezing/shortness of breath.^Disp: 18 g^Rfl: 3 beclomethasone (QVAR REDIHALER) 80 mcg/actuation inhaler^Inhale 2 Puffs as instructed twice daily.^Disp: 1 Each^Rfl: 5 miconazole (MONISTAT 7) 2 % vaginal cream^Use 1 Applicator vaginally daily at bedtime.^Disp: 45 g^Rfl: 0 (Patient not taking: Reported on 02/15/2023) medroxyPROGESTERone (DEPO-PROVERA) 150 mg/mL injection^use as directed intramuscularly EVERY 12 WEEKS^Disp: 1 mL^Rfl: 4 propranolol (INDERAL) 10 mg tablet^TAKE 1 TABLET BY MOUTH THREE TIMES A DAY IF TREMORS PERSIST, IF NOT, MAY TRY TO WEAN DOWN DAILY DOSE^Disp: 84 tablet^Rfl: 5 multivitamin with folic acid (THEREMS MULTIVITAMIN) 400 mcg^Take 1 tablet by mouth once daily.^Disp: 30 tablet^Rfl: 11 lactobacillus rhamnosus ([facility] [employer]) 10 billion cell -200 mg capsule^Take 1 capsule by mouth once daily.^Disp: 30 capsule^Rfl: 11 SUMAtriptan (IMITREX) 50 mg tablet^Take one tablet at onset of headache, may repeat in two hours if needed. No more than two tablets in 24 hours^Disp: 6 tablet^Rfl: 1 naproxen (NAPROSYN) 500 mg tablet^Take 1 tablet by mouth twice daily with meals. Takes as needed^Disp: 60 tablet^Rfl: 5 sodium chloride (SALINE MIST) 0.65 % nasal spray^Use 1 [place] in the nose as needed for cold/allergy symptoms.^Disp: 44 mL^Rfl: 0 sucralfate (CARAFATE) 1 gram tablet^Take 1 tablet by mouth before meals and at bedtime.^Disp: 120 tablet^Rfl: 1 carbamide peroxide (DEBROX) 6.5 % otic solution^Use 5 Drops in both ears twice daily.^Disp: 15 mL^Rfl: 0 (Patient not taking: Reported on 02/09/2023) Cholecalciferol, Vitamin D3, 50 mcg (2,000 unit) cap^Take 2 capsules by mouth once daily.^Disp: 56 capsule^Rfl: 11 acetaminophen (TYLENOL EXTRA STRENGTH) 500 mg tablet^Take 1 tablet by mouth every 6 hours as needed for pain for up to 60 doses.^Disp: 60 tablet^Rfl: 3 nicotine (NICODERM) 21 mg/24 hr^Apply 1 Patch as directed every 24 hours.^Disp: 30 Patch^Rfl: 3 Nicotine Polacrilex 4 mg lozenge^Place 1 Lozenge between cheek and gum as needed.^Disp: 108 Lozenge^Rfl: 3 diclofenac (VOLTAREN ARTHRITIS PAIN) 1 % topical gel^Apply 2 g to affected area four times daily.^Disp: 50 g^Rfl: 0 (Patient not taking: Reported on 02/09/2023) cyclobenzaprine (FLEXERIL) 10 mg tablet^Take 1 tablet by mouth three times daily as needed for muscle spasm.^Disp: 18 tablet^Rfl: 0 fluticasone (FLONASE) 50 mcg/actuation nasal spray^Use 2 Sprays in each nostril once daily. Rinse mouth after use.^Disp: 1 Each^Rfl: 0 promethazine (PHENERGAN) 25 mg tablet^take 1 tablet by mouth three times a day if needed for nausea and vomiting^Disp: 60 tablet^Rfl: 3 Foot Care Products (GEL BUNION CUSHION) pads^1 Device once daily. Apply pad to area daily as needed^Disp: 14 Each^Rfl: 2 multivitamin tablet^Take 1 tablet by mouth once daily.^Disp: 30 tablet^Rfl: 11 lactobacillus acidophilus 100 mg (1 billion cell) cap(s)^Take 1 capsule by mouth once daily.^Disp: 30 capsule^Rfl: 11 lamoTRIgine orally disintegrating (LAMICTAL ODT) 25 mg disintegrating tablet^Take 25 mg by mouth once daily. ^Disp: ^Rfl: cariprazine (VRAYLAR) 3 mg capsule^Take by mouth.^Disp: ^Rfl: benztropine (COGENTIN) 0.5 mg tablet^Take 1 mg by mouth twice daily. Takes once daily- patient chooses alternate^Disp: ^Rfl: FAMILY HISTORY Problem Relation Age of Onset Alcohol/Drug Mother Arthritis Mother Asthma Mother Cancer Mother CANCER Hypertension Mother Stroke Mother Cancer Father LUNG CANCER Emphysema Father Asthma Brother Breast Cancer Maternal Aunt Hypertension Brother Social History Tobacco Use Smoking status: Every Day Packs/day: 1.50 Years: 25.00 Pack years: 37.50 Types: Cigarettes Last attempt to quit: 03/09/2021 Years since quittin.9 Smokeless tobacco: Never Vaping Use Vaping Use: Never used Substance Use Topics Alcohol use: Not Currently Comment: Quit 12/2021 Drug use: No Review of Systems Constitutional: Negative for chills and fever. HENT: Positive for dental problem. Negative for congestion, ear pain and sore throat. Respiratory: Negative for cough and shortness of breath. Cardiovascular: Negative for chest pain. Gastrointestinal: Negative for diarrhea and vomiting. Skin: Positive for wound. Objective BP (P) 120/80 Pulse (P) 119 Temp (P) 36.8 C (98.2 F) Resp (P) 16 Wt (P) 108.4 kg (239 lb) LMP (LMP Unknown) SpO2 (P) 97% BMI (P) 37.43 kg/m Physical Exam Vitals and nursing note reviewed. Constitutional: General: She is not in acute distress. Appearance: Normal appearance. She is not toxic-appearing. HENT: Right Ear: Tympanic membrane and ear canal normal. Left Ear: Tympanic membrane and ear canal normal. Nose: Nose normal. Mouth/Throat: Mouth: Mucous membranes are moist. Dentition: Dental tenderness and dental caries present. No gingival swelling, dental abscesses or gum lesions. Pharynx: Uvula midline. No oropharyngeal exudate or posterior oropharyngeal erythema. Comments: Patient has multiple dental caries. She has 2 cracked teeth over her right lower jaw with mild tenderness. No gingival swelling. No abscess. No signs of infection. She does have a small aphthous ulcer on the inside of her right cheek. No facial swelling. Throat clear. No floor of mouth swelling. Eyes: Conjunctiva/sclera: Conjunctivae normal. Cardiovascular: Rate and Rhythm: Normal rate and regular rhythm. Pulmonary: Effort: Pulmonary effort is normal. Breath sounds: Normal breath sounds. Skin: Findings: No abscess. Comments: Small blister noted over left middle finger. No signs of infection. No erythema. No abscess. Neurological: Mental Status: She is alert. Assessment and Plan ASSESSMENT/PLAN: 1. Pain, dental - ICD9: 525.9, ICD10: K08.89 (primary diagnosis) -Cavities noted in the mouth. No signs of dental abscess or infection at this time. -Did offer antibiotics since patient is having dental pain on the right side where her cavities are in case she is starting to get an early infection, but she declines. I advised her that to her chart shows that she has tolerated amoxicillin and Omnicef in the past, but patient does not want to be on a medication. No abscess on exam. -She has a follow-up with her PCP and follow-up with dentist next month. -Advised if she is still having issues on to have her PCP recheck the teeth. 2. Blister (nonthermal) of left middle finger, initial encounter - ICD9: 915.2, ICD10: S60.423A -Recommend warm soaks, do not pop blister. - Bacitracin or antibiotic ointment as needed. Diagnosis and treatment plan were discussed and questions were answered to the patient's satisfaction. Pt acknowledged understanding of concepts and follow up plan. Specific signs and symptoms that would indicate the need for higher level of care were discussed in detail warranting prompt ER evaluation. GERARDO Hein documented in this encounter [facility] 02-15-2023 Note HNO ID: [id number] Author: Dorys Martins APRN.PARK MAINTAINER Service: ? Author Type: Nurse Practitioner Type: Progress Notes Filed: 02/15/2023 5:17 PM Note Text: Subjective Cough Associated symptoms include shortness of breath and wheezing. Pertinent negatives include no chest pain, no chills, no ear pain, no sore throat and no myalgias. Angelica Andujar is a 42 year old female who presents with multiple complaints. First, she states she was seen here 5 days ago for viral URI and was offered tessalon perles and prednisone but states she can't take either of these medications, and she feels her cough is getting worse and complains of shortness of breath and wheezing. Second, she was reading on [employer] if you are dehydrated you can get a UTI, and this concerned her because she feels she is dehydrated because her lips are dry. She also notes urinary frequency but attributes this to the fact that she has been drinking more water than usual. Third, she was sitting on the toilet and her right knee started hurting and she would like it examined today to see if she needs an xray. She denies any injury to the knee or swelling. She has been walking without pain. Review of Systems Constitutional: Negative for chills and fever. HENT: Negative for congestion, ear pain and sore throat. Respiratory: Positive for cough, shortness of breath and wheezing. Negative for hemoptysis and sputum production. Cardiovascular: Negative for chest pain. Genitourinary: Positive for frequency. Negative for dysuria, flank pain, hematuria and urgency. Musculoskeletal: Positive for joint pain. Negative for falls and myalgias. BP 122/78 Pulse 91 Temp 36.7 ?C (98 ?F) (Tympanic) Resp 18 Wt 103 kg (227 lb) LMP (LMP Unknown) SpO2 97% BMI 35.55 kg/m? PAST MEDICAL HISTORY Diagnosis Date 11/2009 Anxiety Arthritis Asthma COPD (chronic obstructive pulmonary disease) ([facility] [place]) Depression Obesity (BMI 30.0-34.9) CHARLES (obstructive sleep apnea) Recurrent UTI Seasonal allergies STD (sexually transmitted disease) Tobacco use disorder 05/18/2021 PAST SURGICAL HISTORY Procedure Laterality Date COLONOSCOPY W/BIOPSY SINGLE/MULTIPLE 03/02/11 ESOPHAGOGASTRODUODENOSCOPY TRANSORAL DIAGNOSTIC 11/14/2012 EGD ESOPHAGOGASTRODUODENOSCOPY TRANSORAL DIAGNOSTIC 06/02/2020 EGD MED INC ALL EX DRUG 11/2009 PAST SURGICAL HISTORY OF WISDOM TEETH ALLERGIES Benzalkonium Chloride; Clindamycin; Doxycycline; Flagyl [Metronidazole]; Hand Sales Assistant Institutional Sales [Ethyl Alcohol (Skin Cleanser)]; Iodine; Latex, Natural Rubber; [place]; Meloxicam; Morphine; Penicillin; Prednisone; Singulair [Montelukast]; and Zofran [Ondansetron Hcl (Pf)] MEDICATIONS ascorbic acid, vitamin C, (VITAMIN C) 500 mg tabletTake 1 tablet by mouth once daily.Disp: 30 tabletRfl: 5 loratadine (CLARITIN) 10 mg tabletTake 1 tablet by mouth once daily.Disp: 28 tabletRfl: [address] (PROTONIX) 40 mg tabletTake 1 tablet by mouth once daily.Disp: 30 tabletRfl: 11 triamcinolone (KENALOG) 0.025 % creamApply 1 application to affected area twice daily.Disp: 30 gRfl: 0 albuterol HFA (PROVENTIL HFA, VENTOLIN HFA) 90 mcg/actuation inhalerInhale 2 Puffs as instructed every 6 hours as needed for wheezing/shortness of breath.Disp: 18 gRfl: 3 beclomethasone (QVAR REDIHALER) 80 mcg/actuation inhalerInhale 2 Puffs as instructed twice daily.Disp: 1 EachRfl: 5 medroxyPROGESTERone (DEPO-PROVERA) 150 mg/mL injectionuse as directed intramuscularly EVERY 12 WEEKSDisp: 1 mLRfl: 4 propranolol (INDERAL) 10 mg tabletTAKE 1 TABLET BY MOUTH THREE TIMES A DAY IF TREMORS PERSIST, IF NOT, MAY TRY TO WEAN DOWN DAILY DOSEDisp: 84 tabletRfl: 5 multivitamin with folic acid ([facility] MULTIVITAMIN) 400 mcgTake 1 tablet by mouth once daily.Disp: 30 tabletRfl: 11 lactobacillus rhamnosus ([facility] [employer] [facility]) 10 billion cell -200 mg capsuleTake 1 capsule by mouth once daily.Disp: 30 capsuleRfl: 11 SUMAtriptan (IMITREX) 50 mg tabletTake one tablet at onset of headache, may repeat in two hours if needed. No more than two tablets in 24 hoursDisp: 6 tabletRfl: 1 naproxen (NAPROSYN) 500 mg tabletTake 1 tablet by mouth twice daily with meals. Takes as neededDisp: 60 tabletRfl: 5 sodium chloride (SALINE MIST) 0.65 % nasal sprayUse 1 [place] in the nose as needed for cold/allergy symptoms.Disp: 44 mLRfl: 0 sucralfate (CARAFATE) 1 gram tabletTake 1 tablet by mouth before meals and at bedtime.Disp: 120 tabletRfl: 1 Cholecalciferol, Vitamin D3, 50 mcg (2,000 unit) capTake 2 capsules by mouth once daily.Disp: 56 capsuleRfl: 11 acetaminophen (TYLENOL EXTRA STRENGTH) 500 mg tabletTake 1 tablet by mouth every 6 hours as needed for pain for up to 60 doses.Disp: 60 tabletRfl: 3 cyclobenzaprine (FLEXERIL) 10 mg tabletTake 1 tablet by mouth three times daily as needed for muscle spasm.Disp: 18 tabletRfl: 0 fluticasone (FLONASE) 50 mcg/actuation nasal sprayU (more content not included)... [facility] 02-12-2023 Miscellaneous Notes ----- Message from Ian Ying MD sent at 02/10/2023 7:03 AM EDT ----- Negative COVID and Influenza. documented in this encounter [facility] 02-09-2023 Note HNO ID: [id number] Author: Shara Morel APRN.PARK MAINTAINER Service: ? Author Type: Nurse Practitioner Type: Progress Notes Filed: 02/09/2023 9:14 AM Note Text: This note was created using Roadmunkriter. Subjective Angelica Andujar is a 42 year old female. 42 year old female with PMH asthma, COPD, GERD, DDD, tobacco use presents with complaints of illness. Acute onset 2 days ago + cough Dry +wheezing. +chills Denies fever Denies CP. Denies dyspnea. Denies abdominal pain. Denies N/V/D Denies skin rash or lesions. Endorses she was around ill contacts. She is requesting strep throat testing and COVID testing. I have short term memory loss so don't ask me a lot of questions The history is provided by the patient. No translator interpreter was used. Cough This is a new problem. The current episode started 2 days ago. The problem occurs constantly. The problem has not changed since onset.The cough is Non-productive. There has been no fever. Associated symptoms include chills and wheezing. Pertinent negatives include no chest pain, no sweats, no weight loss, no ear congestion, no ear pain, no headaches, no rhinorrhea, no sore throat, no myalgias, no shortness of breath and no eye redness. She has tried nothing for the symptoms. The treatment provided no relief. She is a smoker. Her past medical history is significant for COPD. Her past medical history does not include bronchitis, pneumonia, bronchiectasis, emphysema or asthma. PAST MEDICAL HISTORY Diagnosis Date 11/2009 Anxiety Arthritis Asthma COPD (chronic obstructive pulmonary disease) ([facility] [place]) Depression Obesity (BMI 30.0-34.9) CHARLES (obstructive sleep apnea) Recurrent UTI Seasonal allergies STD (sexually transmitted disease) Tobacco use disorder 05/18/2021 PAST SURGICAL HISTORY Procedure Laterality Date COLONOSCOPY W/BIOPSY SINGLE/MULTIPLE 03/02/11 ESOPHAGOGASTRODUODENOSCOPY TRANSORAL DIAGNOSTIC 11/14/2012 EGD ESOPHAGOGASTRODUODENOSCOPY TRANSORAL DIAGNOSTIC 06/02/2020 EGD MED INC ALL EX DRUG 11/2009 PAST SURGICAL HISTORY OF WISDOM TEETH ALLERGIES Benzalkonium Chloride; Clindamycin; Doxycycline; Flagyl [Metronidazole]; Hand Sales Assistant Institutional Sales [Ethyl Alcohol (Skin Cleanser)]; Iodine; Latex, Natural Rubber; [place]; Meloxicam; Morphine; Penicillin; Prednisone; Singulair [Montelukast]; and Zofran [Ondansetron Hcl (Pf)] MEDICATIONS loratadine (CLARITIN) 10 mg tabletTake 1 tablet by mouth once daily.Disp: 28 tabletRfl: [address] (PROTONIX) 40 mg tabletTake 1 tablet by mouth once daily.Disp: 30 tabletRfl: 11 triamcinolone (KENALOG) 0.025 % creamApply 1 application to affected area twice daily.Disp: 30 gRfl: 0 albuterol HFA (PROVENTIL HFA, VENTOLIN HFA) 90 mcg/actuation inhalerInhale 2 Puffs as instructed every 6 hours as needed for wheezing/shortness of breath.Disp: 18 gRfl: 3 beclomethasone (QVAR REDIHALER) 80 mcg/actuation inhalerInhale 2 Puffs as instructed twice daily.Disp: 1 EachRfl: 5 miconazole (MONISTAT 7) 2 % vaginal creamUse 1 Applicator vaginally daily at bedtime.Disp: 45 gRfl: 0 medroxyPROGESTERone (DEPO-PROVERA) 150 mg/mL injectionuse as directed intramuscularly EVERY 12 WEEKSDisp: 1 mLRfl: 4 propranolol (INDERAL) 10 mg tabletTAKE 1 TABLET BY MOUTH THREE TIMES A DAY IF TREMORS PERSIST, IF NOT, MAY TRY TO WEAN DOWN DAILY DOSEDisp: 84 tabletRfl: 5 multivitamin with folic acid ([facility] MULTIVITAMIN) 400 mcgTake 1 tablet by mouth once daily.Disp: 30 tabletRfl: 11 lactobacillus rhamnosus ([facility] [employer] [facility]) 10 billion cell -200 mg capsuleTake 1 capsule by mouth once daily.Disp: 30 capsuleRfl: 11 SUMAtriptan (IMITREX) 50 mg tabletTake one tablet at onset of headache, may repeat in two hours if needed. No more than two tablets in 24 hoursDisp: 6 tabletRfl: 1 naproxen (NAPROSYN) 500 mg tabletTake 1 tablet by mouth twice daily with meals. Takes as neededDisp: 60 tabletRfl: 5 sodium chloride (SALINE MIST) 0.65 % nasal sprayUse 1 [place] in the nose as needed for cold/allergy symptoms.Disp: 44 mLRfl: 0 sucralfate (CARAFATE) 1 gram tabletTake 1 tablet by mouth before meals and at bedtime.Disp: 120 tabletRfl: 1 Cholecalciferol, Vitamin D3, 50 mcg (2,000 unit) capTake 2 capsules by mouth once daily.Disp: 56 capsuleRfl: 11 acetaminophen (TYLENOL EXTRA STRENGTH) 500 mg tabletTake 1 tablet by mouth every 6 hours as needed for pain for up to 60 doses.Disp: 60 tabletRfl: 3 Nicotine Polacrilex 4 mg lozengePlace 1 Lozenge between cheek and gum as needed.Disp: 108 LozengeRfl: 3 cyclobenzaprine (FLEXERIL) 10 mg tabletTake 1 tablet by mouth three times daily as needed for muscle spasm.Disp: 18 tabletRfl: 0 fluticasone (FLONASE) 50 mcg/actuation nasal sprayUse 2 Sprays in each nostril once daily. Rinse mouth after use.Disp: 1 EachRfl: 0 promethazine (PHENERGAN) 25 mg tablettake 1 tablet by mouth three times a day if needed for nausea and vomitingDisp: 60 tabletRfl: (more content not included)... [facility] 02-09-2023 Instructions Shara Morel APRN.CNP - 02/09/2023 9:06 AM EDT RESPIRATORY INFECTION GENERAL INFORMATION: An upper respiratory tract infection, or cold, is a viral infection of the airway passages. It can be caused by any one of almost 200 different viruses. Common symptoms include a runny or stuffy nose, sneezing, watery eyes, sore throat, cough, and slight fever. Colds are contagious, especially during the first 3 or 4 days and cannot be cured by antibiotics. They are spread by coughs, sneezes, and direct contact, especially [id number]. A respiratory tract infection usually clears up in a few days, but some people may be sick for a week or two. INSTRUCTIONS: 1. Be careful not to blow your nose too hard because this may cause a nosebleed. 2. Use a cool-mist humidifier (vaporizer) to increase air moisture. This will make it easier for you to breathe. Do not use hot steam. 3. Rest as much as possible and get plenty of sleep. 4. Wash your hands often, especially after you blow your nose. Cover your mouth and nose with a tissue when you sneeze or cough. 5. Drink plenty of clear fluids (8 glasses a day) such as water, fruit juice, tea, clear soups, and carbonated beverages. CONTACT YOUR DOCTOR IF : 1. Your fever lasts more than 3 days. 2. You have a sore throat that gets worse or you see white or yellow spots in your throat. 3. Your cough gets worse or lasts more than 10 days. 4. You develop a rash anywhere on your skin. 5. You have an earache or a headache. 6. You have thick greenish or yellowish discharge from your nose. RETURN IMMEDIATELY IF: 1. You cough up thick yellow, green, crooks, or bloody sputum. 2. You have difficulty breathing, pain in your chest, or your skin or nails look crooks or blue. 3. You have shaking chills or a temperature over 102 F (39 C). documented in this encounter [facility] 02-09-2023 History of Present illness Narrative This note was created using NoteWriter. Subjective Angelica Andujar is a 42 year old female. 42 year old female with PMH asthma, COPD, GERD, DDD, tobacco use presents with complaints of illness. Acute onset 2 days ago + cough Dry +wheezing. +chills Denies fever Denies CP. Denies dyspnea. Denies abdominal pain. Denies N/V/D Denies skin rash or lesions. Endorses she was around ill contacts. She is requesting strep throat testing and COVID testing. I have short term memory loss so don't ask me a lot of questions The history is provided by the patient. No translator interpreter was used. Cough This is a new problem. The current episode started 2 days ago. The problem occurs constantly. The problem has not changed since onset.The cough is Non-productive. There has been no fever. Associated symptoms include chills and wheezing. Pertinent negatives include no chest pain, no sweats, no weight loss, no ear congestion, no ear pain, no headaches, no rhinorrhea, no sore throat, no myalgias, no shortness of breath and no eye redness. She has tried nothing for the symptoms. The treatment provided no relief. She is a smoker. Her past medical history is significant for COPD. Her past medical history does not include bronchitis, pneumonia, bronchiectasis, emphysema or asthma. PAST MEDICAL HISTORY Diagnosis Date 11/2009 Anxiety Arthritis Asthma COPD (chronic obstructive pulmonary disease) (HCC) Depression Obesity (BMI 30.0-34.9) CHARLES (obstructive sleep apnea) Recurrent UTI Seasonal allergies STD (sexually transmitted disease) Tobacco use disorder 05/18/2021 PAST SURGICAL HISTORY Procedure Laterality Date COLONOSCOPY W/BIOPSY SINGLE/MULTIPLE 03/02/11 ESOPHAGOGASTRODUODENOSCOPY TRANSORAL DIAGNOSTIC 11/14/2012 EGD ESOPHAGOGASTRODUODENOSCOPY TRANSORAL DIAGNOSTIC 06/02/2020 EGD MED INC ALL EX DRUG 11/2009 PAST SURGICAL HISTORY OF WISDOM TEETH ALLERGIES Benzalkonium Chloride; Clindamycin; Doxycycline; Flagyl [Metronidazole]; Hand Sales Assistant Institutional Sales [Ethyl Alcohol (Skin Cleanser)]; Iodine; Latex, Natural Rubber; [place]; Meloxicam; Morphine; Penicillin; Prednisone; Singulair [Montelukast]; and Zofran [Ondansetron Hcl (Pf)] MEDICATIONS loratadine (CLARITIN) 10 mg tablet^Take 1 tablet by mouth once daily.^Disp: 28 tablet^Rfl: [address] (PROTONIX) 40 mg tablet^Take 1 tablet by mouth once daily.^Disp: 30 tablet^Rfl: 11 triamcinolone (KENALOG) 0.025 % cream^Apply 1 application to affected area twice daily.^Disp: 30 g^Rfl: 0 albuterol HFA (PROVENTIL HFA, VENTOLIN HFA) 90 mcg/actuation inhaler^Inhale 2 Puffs as instructed every 6 hours as needed for wheezing/shortness of breath.^Disp: 18 g^Rfl: 3 beclomethasone (QVAR REDIHALER) 80 mcg/actuation inhaler^Inhale 2 Puffs as instructed twice daily.^Disp: 1 Each^Rfl: 5 miconazole (MONISTAT 7) 2 % vaginal cream^Use 1 Applicator vaginally daily at bedtime.^Disp: 45 g^Rfl: 0 medroxyPROGESTERone (DEPO-PROVERA) 150 mg/mL injection^use as directed intramuscularly EVERY 12 WEEKS^Disp: 1 mL^Rfl: 4 propranolol (INDERAL) 10 mg tablet^TAKE 1 TABLET BY MOUTH THREE TIMES A DAY IF TREMORS PERSIST, IF NOT, MAY TRY TO WEAN DOWN DAILY DOSE^Disp: 84 tablet^Rfl: 5 multivitamin with folic acid (THEREMS MULTIVITAMIN) 400 mcg^Take 1 tablet by mouth once daily.^Disp: 30 tablet^Rfl: 11 lactobacillus rhamnosus ([facility] [employer] [facility] [facility] 10 billion cell -200 mg capsule^Take 1 capsule by mouth once daily.^Disp: 30 capsule^Rfl: 11 SUMAtriptan (IMITREX) 50 mg tablet^Take one tablet at onset of headache, may repeat in two hours if needed. No more than two tablets in 24 hours^Disp: 6 tablet^Rfl: 1 naproxen (NAPROSYN) 500 mg tablet^Take 1 tablet by mouth twice daily with meals. Takes as needed^Disp: 60 tablet^Rfl: 5 sodium chloride (SALINE MIST) 0.65 % nasal spray^Use 1 [place] in the nose as needed for cold/allergy symptoms.^Disp: 44 mL^Rfl: 0 sucralfate (CARAFATE) 1 gram tablet^Take 1 tablet by mouth before meals and at bedtime.^Disp: 120 tablet^Rfl: 1 Cholecalciferol, Vitamin D3, 50 mcg (2,000 unit) cap^Take 2 capsules by mouth once daily.^Disp: 56 capsule^Rfl: 11 acetaminophen (TYLENOL EXTRA STRENGTH) 500 mg tablet^Take 1 tablet by mouth every 6 hours as needed for pain for up to 60 doses.^Disp: 60 tablet^Rfl: 3 Nicotine Polacrilex 4 mg lozenge^Place 1 Lozenge between cheek and gum as needed.^Disp: 108 Lozenge^Rfl: 3 cyclobenzaprine (FLEXERIL) 10 mg tablet^Take 1 tablet by mouth three times daily as needed for muscle spasm.^Disp: 18 tablet^Rfl: 0 fluticasone (FLONASE) 50 mcg/actuation nasal spray^Use 2 Sprays in each nostril once daily. Rinse mouth after use.^Disp: 1 Each^Rfl: 0 promethazine (PHENERGAN) 25 mg tablet^take 1 tablet by mouth three times a day if needed for nausea and vomiting^Disp: 60 tablet^Rfl: 3 Foot Care Products (GEL BUNION CUSHION) pads^1 Device once daily. Apply pad to area daily as needed^Disp: 14 Each^Rfl: 2 multivitamin tablet^Take 1 tablet by mouth once daily.^Disp: 30 tablet^Rfl: 11 lactobacillus acidophilus 100 mg (1 billion cell) cap(s)^Take 1 capsule by mouth once daily.^Disp: 30 capsule^Rfl: 11 lamoTRIgine orally disintegrating (LAMICTAL ODT) 25 mg disintegrating tablet^Take 25 mg by mouth once daily. ^Disp: ^Rfl: cariprazine (VRAYLAR) 3 mg capsule^Take by mouth.^Disp: ^Rfl: benztropine (COGENTIN) 0.5 mg tablet^Take 1 mg by mouth twice daily. Takes once daily- patient chooses alternate^Disp: ^Rfl: ascorbic acid, vitamin C, (VITAMIN C) 500 mg tablet^Take 1 tablet by mouth once daily.^Disp: 30 tablet^Rfl: 5 carbamide peroxide (DEBROX) 6.5 % otic solution^Use 5 Drops in both ears twice daily.^Disp: 15 mL^Rfl: 0 (Patient not taking: Reported on 02/09/2023) nicotine (NICODERM) 21 mg/24 hr^Apply 1 Patch as directed every 24 hours.^Disp: 30 Patch^Rfl: 3 diclofenac (VOLTAREN ARTHRITIS PAIN) 1 % topical gel^Apply 2 g to affected area four times daily.^Disp: 50 g^Rfl: 0 (Patient not taking: Reported on 02/09/2023) FAMILY HISTORY Problem Relation Age of Onset Alcohol/Drug Mother Arthritis Mother Asthma Mother Cancer Mother CANCER Hypertension Mother Stroke Mother Cancer Father LUNG CANCER Emphysema Father Asthma Brother Breast Cancer Maternal Aunt Hypertension Brother Social History Tobacco Use Smoking status: Every Day Packs/day: 1.50 Years: 25.00 Pack years: 37.50 Types: Cigarettes Last attempt to quit: 03/09/2021 Years since quittin.9 Smokeless tobacco: Never Vaping Use Vaping Use: Never used Substance Use Topics Alcohol use: Not Currently Comment: Quit 12/2021 Drug use: No Review of Systems Constitutional: Positive for chills. Negative for fatigue, fever and weight loss. HENT: Positive for congestion and postnasal drip. Negative for ear pain, rhinorrhea and sore throat. Eyes: Negative for redness. Respiratory: Positive for cough and wheezing. Negative for apnea, chest tightness and shortness of breath. Cardiovascular: Negative for chest pain, palpitations and leg swelling. Gastrointestinal: Negative for abdominal pain, diarrhea, nausea and vomiting. Musculoskeletal: Negative for myalgias. Skin: Negative for color change, pallor, rash and wound. Allergic/Immunologic: Positive for environmental allergies and immunocompromised state. Negative for food allergies. Neurological: Negative for dizziness, facial asymmetry and headaches. Hematological: Positive for adenopathy. Does not bruise/bleed easily. Psychiatric/Behavioral: Negative for agitation and behavioral problems. Objective BP 122/78 Temp 36.7 C (98 F) (Tympanic) Wt 103 kg (227 lb) LMP (LMP Unknown) BMI 35.55 kg/m Physical Exam Vitals and nursing note reviewed. Constitutional: General: She is not in acute distress. Appearance: Normal appearance. She is normal weight. She is not ill-appearing, toxic-appearing or diaphoretic. HENT: Head: Normocephalic and atraumatic. Right Ear: Ear canal and external ear normal. Left Ear: Ear canal and external ear normal. Nose: Nose normal. No congestion or rhinorrhea. Mouth/Throat: Mouth: Mucous membranes are moist. Pharynx: No oropharyngeal exudate or posterior oropharyngeal erythema. Eyes: General: Right eye: No discharge. Left eye: No discharge. Extraocular Movements: Extraocular movements intact. Conjunctiva/sclera: Conjunctivae normal. Pupils: Pupils are equal, round, and reactive to light. Cardiovascular: Rate and Rhythm: Normal rate and regular rhythm. Pulses: Normal pulses. Heart sounds: Normal heart sounds. No murmur heard. No friction rub. Pulmonary: Effort: Pulmonary effort is normal. No respiratory distress. Breath sounds: Normal breath sounds. No stridor. No wheezing, rhonchi or rales. Chest: Chest wall: No tenderness. Abdominal: General: Abdomen is flat. There is no distension. Palpations: Abdomen is soft. There is no mass. Tenderness: There is no abdominal tenderness. There is no right CVA tenderness, left CVA tenderness, guarding or rebound. Hernia: No hernia is present. Musculoskeletal: General: No swelling, tenderness, deformity or signs of injury. Normal range of motion. Cervical back: Normal range of motion and neck supple. No rigidity. Right lower leg: No edema. Left lower leg: No edema. Lymphadenopathy: Cervical: Cervical adenopathy (mild cervical adenopathy) present. Skin: General: Skin is warm and dry. Capillary Refill: Capillary refill takes less than 2 seconds. Coloration: Skin is not jaundiced or pale. Findings: No bruising, erythema, lesion or rash. Neurological: General: No focal deficit present. Mental Status: She is alert and oriented to person, place, and time. Cranial Nerves: No cranial nerve deficit. Sensory: No sensory deficit. Motor: No weakness. Coordination: Coordination normal. Gait: Gait normal. Psychiatric: Mood and Affect: Mood normal. Behavior: Behavior normal. Thought Content: Thought content normal. Judgment: Judgment normal. Assessment and Plan ASSESSMENT/PLAN: 1. Acute cough - ICD9: 786.2, ICD10: R05.1 (primary diagnosis) X 2 days Non productive. No red flags Lungs CTA Hemodynamically stable Declines Blanquitaandrea Venessa States that she cannot take Prednisone - COVID WITH FLUA+B, ROUTINE-obtained and pending 2. URI, acute - ICD9: 465.9, ICD10: J06.9 X 2 days Patient request strep testing - Discussed viral etiology and rationale for treatment. - Alere Strep Test NEGATIVE, no culture pending - Symptomatic treatment with prn analgesia - Supportive care with fluids and rest - The patient may also use OTC cough and cold meds as needed and warm salt water gargles, throat lozenges and/or OTC throat spray as needed. - Follow up in 3-5 days if symptoms persist or sooner if worsening of symptoms - STREP A MOLECULAR (POC) - COVID WITH FLUA+B, ROUTINE Shara Morel APRN.[employer] documented in this encounter [facility] 02-03-2023 Miscellaneous Notes Pt called requesting a copy of OV from 12/09/22. 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 Copy in Medical Records for milk pickup truck driver. Ayleen Murrieta LPN documented in this encounter [facility] 01-28-2023 Note HNO ID: [id number] Author: RT Gerard(R) Service: Radiology Author Type: Technologist Type: Progress Notes Filed: 01/28/2023 4:34 PM Note Text: Radiology Service Progress Note PATIENT NAME: Angelica Andujar DATE OF SERVICE: January 28, 2023 TIME: 4:22 PM PATIENT IDENTITY VERIFICATION COMPLETED USING TWO (2) IDENTIFIERS: Name and Date of confirmed by patient verbally. FALL SCREENING: Has the patient had 2 falls in the last year or 1 fall with injury or currently using an Ambulatory Assistive Device (Walker, Cane, Wheelchair, Crutches, etc.)? No PATIENT GENDER DATA: Female. status: : No status: NO. PATIENT RELEVANT IMPLANT DATA REVIEWED: Yes RADIOLOGY DEPARTMENT: General X-ray: Exam(s) Completed: Spine X-Ray(s): Cervical AP / LAT PERIPHERAL IV DATA: Not applicable SIGNED BY: RT Gerard(R) January 28, 2023 4:22 PM [facility] 01-28-2023 Note HNO ID: [id number] Author: Yeni Hameed APRN.[employer] Service: ? Author Type: Nurse Practitioner Type: Progress Notes Filed: 01/28/2023 6:12 PM Note Text: Subjective Patient came in with complaints of neck pain and headache. Patient says every time she goes to the chiropractor to get adjusted to gives her headache and she wanted to get to the root of the cause. Patient would like an x-ray. Patient denies any other symptoms associated with this. The history is provided by the patient. No translator interpreter was used. Neck Pain Review of Systems Constitutional: Negative. Musculoskeletal: Positive for neck pain. Skin: Negative. Objective Physical Exam Constitutional: Appearance: Normal appearance. HENT: Head: Comments: Patient says pain is located in the area above range of motion is within normal limits. Pulmonary: Effort: Pulmonary effort is normal. Neurological: Mental Status: She is alert. PAST MEDICAL HISTORY Diagnosis Date 11/2009 Anxiety Arthritis Asthma COPD (chronic obstructive pulmonary disease) (HCC) Depression Obesity (BMI 30.0-34.9) CHARLES (obstructive sleep apnea) Recurrent UTI Seasonal allergies STD (sexually transmitted disease) Tobacco use disorder 05/18/2021 PAST SURGICAL HISTORY Procedure Laterality Date COLONOSCOPY W/BIOPSY SINGLE/MULTIPLE 03/02/11 ESOPHAGOGASTRODUODENOSCOPY TRANSORAL DIAGNOSTIC 11/14/2012 EGD ESOPHAGOGASTRODUODENOSCOPY TRANSORAL DIAGNOSTIC 06/02/2020 EGD MED INC ALL EX DRUG 11/2009 PAST SURGICAL HISTORY OF WISDOM TEETH ALLERGIES Benzalkonium Chloride; Clindamycin; Doxycycline; Flagyl [Metronidazole]; Hand Sales Assistant Institutional Sales [Ethyl Alcohol (Skin Cleanser)]; Iodine; Latex, Natural Rubber; [place]; Meloxicam; Morphine; Penicillin; Prednisone; Singulair [Montelukast]; and Zofran [Ondansetron Hcl (Pf)] MEDICATIONS ascorbic acid, vitamin C, (VITAMIN C) 500 mg tabletTake 1 tablet by mouth once daily.Disp: 30 tabletRfl: 5 loratadine (CLARITIN) 10 mg tabletTake 1 tablet by mouth once daily.Disp: 28 tabletRfl: [address] (PROTONIX) 40 mg tabletTake 1 tablet by mouth once daily.Disp: 30 tabletRfl: 11 triamcinolone (KENALOG) 0.025 % creamApply 1 application to affected area twice daily.Disp: 30 gRfl: 0 albuterol HFA (PROVENTIL HFA, VENTOLIN HFA) 90 mcg/actuation inhalerInhale 2 Puffs as instructed every 6 hours as needed for wheezing/shortness of breath.Disp: 18 gRfl: 3 beclomethasone (QVAR REDIHALER) 80 mcg/actuation inhalerInhale 2 Puffs as instructed twice daily.Disp: 1 EachRfl: 5 miconazole (MONISTAT 7) 2 % vaginal creamUse 1 Applicator vaginally daily at bedtime.Disp: 45 gRfl: 0 medroxyPROGESTERone (DEPO-PROVERA) 150 mg/mL injectionuse as directed intramuscularly EVERY 12 WEEKSDisp: 1 mLRfl: 4 propranolol (INDERAL) 10 mg tabletTAKE 1 TABLET BY MOUTH THREE TIMES A DAY IF TREMORS PERSIST, IF NOT, MAY TRY TO WEAN DOWN DAILY DOSEDisp: 84 tabletRfl: 5 multivitamin with folic acid ([facility] MULTIVITAMIN) 400 mcgTake 1 tablet by mouth once daily.Disp: 30 tabletRfl: 11 lactobacillus rhamnosus ([facility] [employer] [facility]) 10 billion cell -200 mg capsuleTake 1 capsule by mouth once daily.Disp: 30 capsuleRfl: 11 SUMAtriptan (IMITREX) 50 mg tabletTake one tablet at onset of headache, may repeat in two hours if needed. No more than two tablets in 24 hoursDisp: 6 tabletRfl: 1 naproxen (NAPROSYN) 500 mg tabletTake 1 tablet by mouth twice daily with meals. Takes as neededDisp: 60 tabletRfl: 5 sodium chloride (SALINE MIST) 0.65 % nasal sprayUse 1 [place] in the nose as needed for cold/allergy symptoms.Disp: 44 mLRfl: 0 sucralfate (CARAFATE) 1 gram tabletTake 1 tablet by mouth before meals and at bedtime.Disp: 120 tabletRfl: 1 carbamide peroxide (DEBROX) 6.5 % otic solutionUse 5 Drops in both ears twice daily.Disp: 15 mLRfl: 0 Cholecalciferol, Vitamin D3, 50 mcg (2,000 unit) capTake 2 capsules by mouth once daily.Disp: 56 capsuleRfl: 11 acetaminophen (TYLENOL EXTRA STRENGTH) 500 mg tabletTake 1 tablet by mouth every 6 hours as needed for pain for up to 60 doses.Disp: 60 tabletRfl: 3 nicotine (NICODERM) 21 mg/24 hrApply 1 Patch as directed every 24 hours.Disp: 30 PatchRfl: 3 Nicotine Polacrilex [address] 1 Lozenge between cheek and gum as needed.Disp: 108 LozengeRfl: 3 diclofenac (VOLTAREN ARTHRITIS PAIN) 1 % topical gelApply 2 g to affected area four times daily.Disp: 50 gRfl: 0 cyclobenzaprine (FLEXERIL) 10 mg tabletTake 1 tablet by mouth three times daily as needed for muscle spasm.Disp: 18 tabletRfl: 0 fluticasone (FLONASE) 50 mcg/actuation nasal sprayUse 2 Sprays in each nostril once daily. Rinse mouth after use.Disp: 1 EachRfl: 0 promethazine (PHENERGAN) 25 mg tablettake 1 tablet by mouth three times a day if needed for nausea and vomitingDisp: 60 tabletRfl: 3 Foot Care Products (GEL BUNION CUSHION) pads1 Device once daily. Apply pad to area daily as needed (more content not included)... [facility] 01-18-2023 Note HNO ID: [id number] Author: Yeni Hameed APRN.[facility] Service: ? Author Type: Nurse Practitioner Type: Progress Notes Filed: 01/18/2023 11:01 AM Note Text: Subjective She came in with complaints of feeling nauseated for 2 days. Patient says she has also been having diarrhea for 2 days. Patient says she has been having 2 loose stools a day. Patient denies any stomach pain fever chills or other symptoms at this time. Patient is currently drinking a large iced coffee. Says she has been able to keep food down at this point. The history is provided by the patient. No translator interpreter was used. Diarrhea Review of Systems Constitutional: Negative. Gastrointestinal: Positive for diarrhea. Skin: Negative. Objective Physical Exam Constitutional: Appearance: Normal appearance. Cardiovascular: Rate and Rhythm: Normal rate and regular rhythm. Heart sounds: Normal heart sounds. Pulmonary: Effort: Pulmonary effort is normal. Breath sounds: Normal breath sounds. Abdominal: General: Abdomen is flat. Bowel sounds are normal. Palpations: Abdomen is soft. Tenderness: There is no abdominal tenderness. Neurological: Mental Status: She is alert. PAST MEDICAL HISTORY Diagnosis Date 11/2009 Anxiety Arthritis Asthma COPD (chronic obstructive pulmonary disease) ([facility]) Depression Obesity (BMI 30.0-34.9) CHARLES (obstructive sleep apnea) Recurrent UTI Seasonal allergies STD (sexually transmitted disease) Tobacco use disorder 05/18/2021 PAST SURGICAL HISTORY Procedure Laterality Date COLONOSCOPY W/BIOPSY SINGLE/MULTIPLE 03/02/11 ESOPHAGOGASTRODUODENOSCOPY TRANSORAL DIAGNOSTIC 11/14/2012 EGD ESOPHAGOGASTRODUODENOSCOPY TRANSORAL DIAGNOSTIC 06/02/2020 EGD MED INC ALL EX DRUG 11/2009 PAST SURGICAL HISTORY OF WISDOM TEETH ALLERGIES Benzalkonium Chloride; Clindamycin; Doxycycline; Flagyl [Metronidazole]; Hand Sales Assistant Institutional Sales [Ethyl Alcohol (Skin Cleanser)]; Iodine; Latex, Natural Rubber; [place]; Meloxicam; Morphine; Penicillin; Prednisone; Singulair [Montelukast]; and Zofran [Ondansetron Hcl (Pf)] MEDICATIONS ascorbic acid, vitamin C, (VITAMIN C) 500 mg tabletTake 1 tablet by mouth once daily.Disp: 30 tabletRfl: 5 loratadine (CLARITIN) 10 mg tabletTake 1 tablet by mouth once daily.Disp: 28 tabletRfl: [address] (PROTONIX) 40 mg tabletTake 1 tablet by mouth once daily.Disp: 30 tabletRfl: 11 triamcinolone (KENALOG) 0.025 % creamApply 1 application to affected area twice daily.Disp: 30 gRfl: 0 albuterol HFA (PROVENTIL HFA, VENTOLIN HFA) 90 mcg/actuation inhalerInhale 2 Puffs as instructed every 6 hours as needed for wheezing/shortness of breath.Disp: 18 gRfl: 3 beclomethasone (QVAR REDIHALER) 80 mcg/actuation inhalerInhale 2 Puffs as instructed twice daily.Disp: 1 EachRfl: 5 miconazole (MONISTAT 7) 2 % vaginal creamUse 1 Applicator vaginally daily at bedtime.Disp: 45 gRfl: 0 medroxyPROGESTERone (DEPO-PROVERA) 150 mg/mL injectionuse as directed intramuscularly EVERY 12 WEEKSDisp: 1 mLRfl: 4 propranolol (INDERAL) 10 mg tabletTAKE 1 TABLET BY MOUTH THREE TIMES A DAY IF TREMORS PERSIST, IF NOT, MAY TRY TO WEAN DOWN DAILY DOSEDisp: 84 tabletRfl: 5 multivitamin with folic acid ([facility] MULTIVITAMIN) 400 mcgTake 1 tablet by mouth once daily.Disp: 30 tabletRfl: 11 lactobacillus rhamnosus ([facility] [employer] [facility]) 10 billion cell -200 mg capsuleTake 1 capsule by mouth once daily.Disp: 30 capsuleRfl: 11 SUMAtriptan (IMITREX) 50 mg tabletTake one tablet at onset of headache, may repeat in two hours if needed. No more than two tablets in 24 hoursDisp: 6 tabletRfl: 1 naproxen (NAPROSYN) 500 mg tabletTake 1 tablet by mouth twice daily with meals. Takes as neededDisp: 60 tabletRfl: 5 sodium chloride (SALINE MIST) 0.65 % nasal sprayUse 1 [place] in the nose as needed for cold/allergy symptoms.Disp: 44 mLRfl: 0 sucralfate (CARAFATE) 1 gram tabletTake 1 tablet by mouth before meals and at bedtime.Disp: 120 tabletRfl: 1 carbamide peroxide (DEBROX) 6.5 % otic solutionUse 5 Drops in both ears twice daily.Disp: 15 mLRfl: 0 Cholecalciferol, Vitamin D3, 50 mcg (2,000 unit) capTake 2 capsules by mouth once daily.Disp: 56 capsuleRfl: 11 acetaminophen (TYLENOL EXTRA STRENGTH) 500 mg tabletTake 1 tablet by mouth every 6 hours as needed for pain for up to 60 doses.Disp: 60 tabletRfl: 3 Nicotine Polacrilex [address] lozengePlace 1 Lozenge between cheek and gum as needed.Disp: 108 LozengeRfl: 3 diclofenac (VOLTAREN ARTHRITIS PAIN) 1 % topical gelApply 2 g to affected area four times daily.Disp: 50 gRfl: 0 cyclobenzaprine (FLEXERIL) 10 mg tabletTake 1 tablet by mouth three times daily as needed for muscle spasm.Disp: 18 tabletRfl: 0 fluticasone (FLONASE) 50 mcg/actuation nasal sprayUse 2 Sprays in each nostril once daily. Rinse mouth after use.Disp: 1 EachRfl: 0 promethazine (PHENERGAN) 25 mg tablettake 1 tablet by mouth three times a day if n (more content not included)... [facility] 01-18-2023 History of Present illness Narrative Subjective She came in with complaints of feeling nauseated for 2 days. Patient says she has also been having diarrhea for 2 days. Patient says she has been having 2 loose stools a day. Patient denies any stomach pain fever chills or other symptoms at this time. Patient is currently drinking a large iced coffee. Says she has been able to keep food down at this point. The history is provided by the patient. No translator interpreter was used. Diarrhea Review of Systems Constitutional: Negative. Gastrointestinal: Positive for diarrhea. Skin: Negative. Objective Physical Exam Constitutional: Appearance: Normal appearance. Cardiovascular: Rate and Rhythm: Normal rate and regular rhythm. Heart sounds: Normal heart sounds. Pulmonary: Effort: Pulmonary effort is normal. Breath sounds: Normal breath sounds. Abdominal: General: Abdomen is flat. Bowel sounds are normal. Palpations: Abdomen is soft. Tenderness: There is no abdominal tenderness. Neurological: Mental Status: She is alert. PAST MEDICAL HISTORY Diagnosis Date 11/2009 Anxiety Arthritis Asthma COPD (chronic obstructive pulmonary disease) (HCC) Depression Obesity (BMI 30.0-34.9) CHARLES (obstructive sleep apnea) Recurrent UTI Seasonal allergies STD (sexually transmitted disease) Tobacco use disorder 05/18/2021 PAST SURGICAL HISTORY Procedure Laterality Date COLONOSCOPY W/BIOPSY SINGLE/MULTIPLE 03/02/11 ESOPHAGOGASTRODUODENOSCOPY TRANSORAL DIAGNOSTIC 11/14/2012 EGD ESOPHAGOGASTRODUODENOSCOPY TRANSORAL DIAGNOSTIC 06/02/2020 EGD MED INC ALL EX DRUG 11/2009 PAST SURGICAL HISTORY OF WISDOM TEETH ALLERGIES Benzalkonium Chloride; Clindamycin; Doxycycline; Flagyl [Metronidazole]; Hand Sales Assistant Institutional Sales [Ethyl Alcohol (Skin Cleanser)]; Iodine; Latex, Natural Rubber; [place]; Meloxicam; Morphine; Penicillin; Prednisone; Singulair [Montelukast]; and Zofran [Ondansetron Hcl (Pf)] MEDICATIONS ascorbic acid, vitamin C, (VITAMIN C) 500 mg tablet^Take 1 tablet by mouth once daily.^Disp: 30 tablet^Rfl: 5 loratadine (CLARITIN) 10 mg tablet^Take 1 tablet by mouth once daily.^Disp: 28 tablet^Rfl: [address] (PROTONIX) 40 mg tablet^Take 1 tablet by mouth once daily.^Disp: 30 tablet^Rfl: 11 triamcinolone (KENALOG) 0.025 % cream^Apply 1 application to affected area twice daily.^Disp: 30 g^Rfl: 0 albuterol HFA (PROVENTIL HFA, VENTOLIN HFA) 90 mcg/actuation inhaler^Inhale 2 Puffs as instructed every 6 hours as needed for wheezing/shortness of breath.^Disp: 18 g^Rfl: 3 beclomethasone (QVAR REDIHALER) 80 mcg/actuation inhaler^Inhale 2 Puffs as instructed twice daily.^Disp: 1 Each^Rfl: 5 miconazole (MONISTAT 7) 2 % vaginal cream^Use 1 Applicator vaginally daily at bedtime.^Disp: 45 g^Rfl: 0 medroxyPROGESTERone (DEPO-PROVERA) 150 mg/mL injection^use as directed intramuscularly EVERY 12 WEEKS^Disp: 1 mL^Rfl: 4 propranolol (INDERAL) 10 mg tablet^TAKE 1 TABLET BY MOUTH THREE TIMES A DAY IF TREMORS PERSIST, IF NOT, MAY TRY TO WEAN DOWN DAILY DOSE^Disp: 84 tablet^Rfl: 5 multivitamin with folic acid ([facility] MULTIVITAMIN) 400 mcg^Take 1 tablet by mouth once daily.^Disp: 30 tablet^Rfl: 11 lactobacillus rhamnosus ([facility] [employer] [facility]) 10 billion cell -200 mg capsule^Take 1 capsule by mouth once daily.^Disp: 30 capsule^Rfl: 11 SUMAtriptan (IMITREX) 50 mg tablet^Take one tablet at onset of headache, may repeat in two hours if needed. No more than two tablets in 24 hours^Disp: 6 tablet^Rfl: 1 naproxen (NAPROSYN) 500 mg tablet^Take 1 tablet by mouth twice daily with meals. Takes as needed^Disp: 60 tablet^Rfl: 5 sodium chloride (SALINE MIST) 0.65 % nasal spray^Use 1 [place] in the nose as needed for cold/allergy symptoms.^Disp: 44 mL^Rfl: 0 sucralfate (CARAFATE) 1 gram tablet^Take 1 tablet by mouth before meals and at bedtime.^Disp: 120 tablet^Rfl: 1 carbamide peroxide (DEBROX) 6.5 % otic solution^Use 5 Drops in both ears twice daily.^Disp: 15 mL^Rfl: 0 Cholecalciferol, Vitamin D3, 50 mcg (2,000 unit) cap^Take 2 capsules by mouth once daily.^Disp: 56 capsule^Rfl: 11 acetaminophen (TYLENOL EXTRA STRENGTH) 500 mg tablet^Take 1 tablet by mouth every 6 hours as needed for pain for up to 60 doses.^Disp: 60 tablet^Rfl: 3 Nicotine Polacrilex 4 mg lozenge^Place 1 Lozenge between cheek and gum as needed.^Disp: 108 Lozenge^Rfl: 3 diclofenac (VOLTAREN ARTHRITIS PAIN) 1 % topical gel^Apply 2 g to affected area four times daily.^Disp: 50 g^Rfl: 0 cyclobenzaprine (FLEXERIL) 10 mg tablet^Take 1 tablet by mouth three times daily as needed for muscle spasm.^Disp: 18 tablet^Rfl: 0 fluticasone (FLONASE) 50 mcg/actuation nasal spray^Use 2 Sprays in each nostril once daily. Rinse mouth after use.^Disp: 1 Each^Rfl: 0 promethazine (PHENERGAN) 25 mg tablet^take 1 tablet by mouth three times a day if needed for nausea and vomiting^Disp: 60 tablet^Rfl: 3 Foot Care Products (GEL BUNION CUSHION) pads^1 Device once daily. Apply pad to area daily as needed^Disp: 14 Each^Rfl: 2 multivitamin tablet^Take 1 tablet by mouth once daily.^Disp: 30 tablet^Rfl: 11 lactobacillus acidophilus 100 mg (1 billion cell) cap(s)^Take 1 capsule by mouth once daily.^Disp: 30 capsule^Rfl: 11 lamoTRIgine orally disintegrating (LAMICTAL ODT) 25 mg disintegrating tablet^Take 25 mg by mouth once daily. ^Disp: ^Rfl: cariprazine (VRAYLAR) 3 mg capsule^Take by mouth.^Disp: ^Rfl: benztropine (COGENTIN) 0.5 mg tablet^Take 1 mg by mouth twice daily. Takes once daily- patient chooses alternate^Disp: ^Rfl: nicotine (NICODERM) 21 mg/24 hr^Apply 1 Patch as directed every 24 hours.^Disp: 30 Patch^Rfl: 3 FAMILY HISTORY Problem Relation Age of Onset Alcohol/Drug Mother Arthritis Mother Asthma Mother Cancer Mother CANCER Hypertension Mother Stroke Mother Cancer Father LUNG CANCER Emphysema Father Asthma Brother Breast Cancer Maternal Aunt Hypertension Brother Social History Tobacco Use Smoking status: Every Day Packs/day: 1.50 Years: 25.00 Pack years: 37.50 Types: Cigarettes Last attempt to quit: 03/09/2021 Years since quittin.8 Smokeless tobacco: Never Vaping Use Vaping Use: Never used Substance Use Topics Alcohol use: Not Currently Comment: Quit 12/2021 Drug use: No ASSESSMENT/PLAN: 1. Nausea - ICD9: 787.02, ICD10: R11.0 This time patient was educated to rest monitor fluid intake and urinary output give a few days and see if she feels better. It is believed to be viral and will run its course. Patient was okay with this care plan. Yeni Hameed APRN.JOSE ROBERTO documented in this encounter [facility] 01-14-2023 Miscellaneous Notes Noted Win Mejia MD Patient calling said she is fatigued, had one episode of green diarrhea yesterday and is coughing yellow secretions. No fever, said she has nausea. Patient asking this nurse what do I have. Told patient I am not a Dr and not sure what is going with her, if she is taking her medications, what she has been eating, etc. Advised if she has appt set up with PCP or MUSIC GRAPHER. Patient said no I do not, if this continues I will just go to express care. documented in this encounter [facility] 01-06-2023 Note HNO ID: [id number] Author: Mima Horner LPN Service: ? Author Type: ? Type: Progress Notes Filed: 01/06/2023 11:16 AM Note Text: Patient identified by name and date of . Angelica Andujar is here for a Depo Provera injection. Patient brought medication. Date last injected: 10/14/22 Depo-Provera, 150 mg, administered IM left upper quadrant gluteus, Lot # [id number], expiration date 01/02/27. Depo-Provera was given without incident. Date of last menses: No LMP recorded (lmp unknown). Patient has had an injection. Irregular bleeding - Yes Menses ceased - No STD prevention discussed: Yes Patient instructed to return to clinic on 12 weeks +/- 5 days. [email or web address] Provider Tete Romero CNP was present in office at time of injection. Mima Horner LPN Pt seen in office today for Depo Provera Injection. Patient brought own med. Wt 224 lb 9.6 oz (101.9kg) Vital signs reviewed. Pt advised when to return for next injection and/or yearly pap. Tolerated injection well? Yes. See medication note for lot#, exp date. [facility] 01-06-2023 Instructions Mima Horner LPN - 01/06/2023 11:12 AM EDT Patient Instructions for Depo-Provera You have chosen a very effective method of control - shots every 3 months of Depo-Provera. control shots are used by more than 6 million women around the world, and Depo-provera is the most commonly used injection or shot. Certain Women should NOT use Depo-Provera Contraception injection. You should not use Depo-Provera if you... Think you might be Have any vaginal bleeding without a known cause Have had cancer of the breast Have had a stroke Have or have had blood clots (phlebitis) in your legs Have problems with your liver or liver disease Are allergic to Depo-Provera Contraception Injection (medroxyprogesterone acetate or any of it's ingredients) If you wish to get , stop control shots several months before you plan to get . The following information may help you use Depo-Provera: 1. Use another form of control for 2 weeks after your first injection. 2. Depo-Provera tends to make a woman's periods less regular and bleeding and spotting between periods is common for the first 9 -12 months. Some women stop having periods completely, usually after 9 months on Depo-Provera. If your pattern of bleeding concerns you, return to the clinic to get a blood test for anemia, or to check the possibility of , or to check for an infection. 3. Return to the clinic every 3 months for another shot.(Between weeks 11-13 from your last injection) 4. Weight gain is common the first 3 years on Depo-Provera. More than 5 pounds the first year, should be reported. 5. Depo-Provera is intended to prevent . It does not protect against transmission of HIV (AIDS) and other sexually transmitted diseases such as chlamydia, genital herpes, genital warts, gonorrhea, hepatitis B, and syphilis. You should continue to use condoms. 6. Report to the clinic if you develop any problems. DANGER SIGNALS - Weight gain of more than 5 pounds - Headaches - Heavy Bleeding - Depression - Frequent urination These instructions have been explained to the patient and she received a copy. 01/06/2023 documented in this encounter [facility] 01-06-2023 History of Present illness Narrative Patient identified by name and date of . Angelica Andujar is here for a Depo Provera injection. Patient brought medication. Date last injected: 10/14/22 Depo-Provera, 150 mg, administered IM left upper quadrant gluteus, Lot # [id number], expiration date 01/02/27. Depo-Provera was given without incident. Date of last menses: No LMP recorded (lmp unknown). Patient has had an injection. Irregular bleeding - Yes Menses ceased - No STD prevention discussed: Yes Patient instructed to return to clinic on 12 weeks +/- 5 days. [email or web address] Provider Tete Romero CNP was present in office at time of injection. Mima Horner LPN Pt seen in office today for Depo Provera Injection. Patient brought own med. Wt 224 lb 9.6 oz (101.9kg) Vital signs reviewed. Pt advised when to return for next injection and/or yearly pap. Tolerated injection well? Yes. See medication note for lot#, exp date. documented in this encounter [facility] 12-30-2022 Note HNO ID: [id number] Author: Bernadine Manrique [facility] Service: ? Author Type: ? Type: Progress Notes Filed: 12/30/2022 12:43 PM Note Text: POPULATION HEALTH NAVIGATION OUTREACH Action/FYI Patient Outreach: Left voicemail for patient to call back to schedule in RST. (please see Gient order dated for (11/15/2022). Any agent can assist with scheduling. Patient Identified by Name and : NO Outreach Outcome/Action Unable to reach patient: Left message Did you use a PCP flex slot to schedule this appointment? No Reason for Outreach Care Gap or Scheduling/Wellness visits Payer: Payor: [facility] MEDICA[facility] / Plan: [facility] COMMUNITY PLAN MEDICAID [facility] / Product Type: Medicaid / Care Gap Reviewed:: Specialty Scheduling Reminder: Reminder note to check Health Maintenance for items below Health Maintenance items due: PNEUMOCOCCAL(1 - PCV) Never done HEPATITIS B(2 of 3 - 19+ 3-dose series) due on 04/16/2011 COVID-19 VACCINE(2 - Pfizer series) due on 09/15/2021 MAMMOGRAM due on 08/19/2022 DEPRESSION ASSESSMENT Never done Navigation Signature: Bernadine Manrique [facility] December 30, 2022 12:43 PM [facility] 12-30-2022 Note Patient Outreach (NE TNAV) ANGELICA ANDUJAR ([id number]) 1980 F Date Time Provider Department 12/30/22 NO PCP NETNAV During your visit today, we recorded the following information about you: Bernadine Manrique [facility] 12/30/2022 12:43 PM Signed POPULATION HEALTH NAVIGATION OUTREACH Action/FYI Patient Outreach: Left voicemail for patient to call back to schedule in RST. (please see Epic order dated for (11/15/2022). Any agent can assist with scheduling. Patient Identified by Name and : NO Outreach Outcome/Action Unable to reach patient: Left message Did you use a PCP flex slot to schedule this appointment? No Reason for Outreach Care Gap or Scheduling/Wellness visits Payer: Payor: [facility] MEDICA[facility] / Plan: [facility] COMMUNITY PLAN MEDICAID [facility] / Product Type: Medicaid / Care Gap Reviewed:: Specialty Scheduling Reminder: Reminder note to check Health Maintenance for items below Health Maintenance items due: PNEUMOCOCCAL(1 - PCV) Never done HEPATITIS B(2 of 3 - 19+ 3-dose series) due on 04/16/2011 COVID-19 VACCINE(2 - Pfizer series) due on 09/15/2021 MAMMOGRAM due on 08/19/2022 DEPRESSION ASSESSMENT Never done Navigation Signature: Bernadine Manrique Pss December 30, 2022 12:43 PM Allergies As of Date: 12/30/2022 Noted Allergy Reaction BENZALKONIUM CHLORIDE 09/08/2012 14 - Other: See Comments Comments: Skin irritations CLINDAMYCIN 03/27/2018 8 - GI Upset DOXYCYCLINE 12/13/2012 8 - GI Upset Comments: stomach cramps FLAGYL (METRONIDAZOLE) 04/11/2018 4 - Hives HAND CONTENT DEVELOPMENT MANAGER (ETHYL ALCOHOL (SK*11/04/2009 2 - Rash Comments: PT HAS SENSITIVE SKIN. O.K. FOR MEDICAL PROFESSIONAL TO USE HAND CONTENT DEVELOPMENT MANAGER AND THEN TOUCH HER, BUT SHE HERSELF DOES NOT USE IT. IODINE 02/18/2011 2 - Rash LATEX, NATURAL RUBBER 03/17/2018 2 - Rash Comments: Local itching with contact and rash [place] 12/07/2017 5 - Intolerance Comments: Sore throat MELOXICAM 06/12/2018 16 - Unknown MORPHINE 03/02/2011 9 - Itching PENICILLIN 06/18/2016 16 - Unknown PREDNISONE 08/26/2012 14 - Other: See Comments Comments: Moodiness, restlessness, states feels like crap all over . SINGULAIR (MONTELUKAST) 12/07/2017 16 - Unknown Comments: Possible rash ZOFRAN (ONDANSETRON HCL (PF)) 03/02/2011 14 - Other: See Comments Comments: Zofran causes cramping and constipation Date Reviewed: 12/29/2022 Reviewed by: Main Hamilton APRN.PARK MAINTAINER - Fully Assessed Prescriptions as of 12/30/2022 - ascorbic acid, vitamin C, (VITAMIN C) 500 mg tablet Take 1 tablet by mouth once daily. - loratadine (CLARITIN) 10 mg tablet Take 1 tablet by mouth once daily. - pantoprazole DR (PROTONIX) 40 mg tablet Take 1 tablet by mouth once daily. - triamcinolone (KENALOG) 0.025 % cream Apply 1 application to affected area twice daily. - albuterol HFA (PROVENTIL HFA, VENTOLIN HFA) 90 mcg/actuation inhaler Inhale 2 Puffs as instructed every 6 hours as needed for wheezing/shortness of breath. - beclomethasone (QVAR REDIHALER) 80 mcg/actuation inhaler Inhale 2 Puffs as instructed twice daily. - miconazole (MONISTAT 7) 2 % vaginal cream Use 1 Applicator vaginally daily at bedtime. - medroxyPROGESTERone (DEPO-PROVERA) 150 mg/mL injection use as directed intramuscularly EVERY 12 WEEKS - propranolol (INDERAL) 10 mg tablet TAKE 1 TABLET BY MOUTH THREE TIMES A DAY IF TREMORS PERSIST, IF NOT, MAY TRY TO WEAN DOWN DAILY DOSE - multivitamin with folic acid ([facility] MULTIVITAMIN) 400 mcg Take 1 tablet by mouth once daily. - lactobacillus rhamnosus ([facility] Yulex [facility]) 10 billion cell -200 mg capsule Take 1 capsule by mouth once daily. - SUMAtriptan (IMITREX) 50 mg tablet Take one tablet at onset of headache, may repeat in two hours if needed. No more than two tablets in 24 hours - naproxen (NAPROSYN) 500 mg tablet Take 1 tablet by mouth twice daily with meals. Takes as needed - sodium chloride (SALINE MIST) 0.65 % nasal spray Use 1 [place] in the nose as needed for cold/allergy symptoms. - sucralfate (CARAFATE) 1 gram tablet Take 1 tablet by mouth before meals and at bedtime. - carbamide peroxide (DEBROX) 6.5 % otic solution Use 5 Drops in both ears twice daily. - Cholecalciferol, Vitamin D3, 50 mcg (2,000 unit) cap Take 2 capsules by mouth once daily. - acetaminophen (TYLENOL EXTRA STRENGTH) 500 mg tablet Take 1 tablet by mouth every 6 hours as needed for pain for up to 60 doses. - nicotine (NICODERM) 21 mg/24 hr Apply 1 Patch as directed every 24 hours. - Nicotine Polacrilex [address] 1 Lozenge between cheek and gum as needed. - diclofenac (VOLTAREN ARTHRITIS PAIN) 1 % topical gel Apply 2 g to affected area four times daily. - cyclobenzaprine (FLEXERIL) 10 mg tablet Take 1 tablet by mouth three times daily as needed for muscle spasm. - fluticasone (FLONASE) 50 mcg/actuation nasal spray Use 2 Sprays in each n (more content not included)... [facility] 12-30-2022 Miscellaneous Notes Pt returns calls states is annoyed that was called prior because all results were not in. Gave information provided. Pt voices understanding. Left a message for pt to call the office and ask to speak to a nurse. Ayleen Murrieta LPN Rest of patient's lab work came back all stable. Please let her know to follow-up with her primary care provider thank you documented in this encounter [facility] 12-30-2022 Miscellaneous Notes Phone call placed, patient advised (see prior provider encounter) Patient verbalized understanding, agreed with plan of care. Fidelia Murrieta LPN So far patient's blood work is stable and mono was negative. Will call with the last set of labs come back documented in this encounter [facility] 12-30-2022 Miscellaneous Notes Patient was in express care yesterday, cancelled appointment today. TC to pt. LM to call office, ask for triage nurse to schedule a 40 min appt. with one of her providers. Yulissa Nicole LPN documented in this encounter [facility] 12-29-2022 Note HNO ID: [id number] Author: Main Hamilton APRN.PARK MAINTAINER Service: ? Author Type: Nurse Practitioner Type: Progress Notes Filed: 12/29/2022 12:29 PM Note Text: Subjective HPI Nontoxic female presents urgent care chief complaint nausea vomiting body aches chills loose stool cough sore throat. States symptoms started after getting discharged [facility]. States to individuals that she was close to had nausea vomiting diarrhea as well. Presents today for reevaluation. States symptoms are improving slightly. Did vomit 1 time today. No blood in vomit. States she is fatigued. Has not use any OTC medications. Denies any fever body aches chills productive cough chest pain shortness of breath pleuritic pain hemoptysis or rash. Past medical history prescription medication use and allergies reviewed. .Patient presents with: Nausea: vomiting, bodyaches, diarrhea, cough and sore throat x 12/20 PAST MEDICAL HISTORY Diagnosis Date 11/2009 Anxiety Arthritis Asthma COPD (chronic obstructive pulmonary disease) (HCC) Depression Obesity (BMI 30.0-34.9) CHARLES (obstructive sleep apnea) Recurrent UTI Seasonal allergies STD (sexually transmitted disease) Tobacco use disorder 05/18/2021 PAST SURGICAL HISTORY Procedure Laterality Date COLONOSCOPY W/BIOPSY SINGLE/MULTIPLE 03/02/11 ESOPHAGOGASTRODUODENOSCOPY TRANSORAL DIAGNOSTIC 11/14/2012 EGD ESOPHAGOGASTRODUODENOSCOPY TRANSORAL DIAGNOSTIC 06/02/2020 EGD MED INC ALL EX DRUG 11/2009 PAST SURGICAL HISTORY OF WISDOM TEETH ALLERGIES Benzalkonium Chloride; Clindamycin; Doxycycline; Flagyl [Metronidazole]; Hand Sales Assistant Institutional Sales [Ethyl Alcohol (Skin Cleanser)]; Iodine; Latex, Natural Rubber; [place]; Meloxicam; Morphine; Penicillin; Prednisone; Singulair [Montelukast]; and Zofran [Ondansetron Hcl (Pf)] MEDICATIONS ascorbic acid, vitamin C, (VITAMIN C) 500 mg tabletTake 1 tablet by mouth once daily.Disp: 30 tabletRfl: [address] (PROTONIX) 40 mg tabletTake 1 tablet by mouth once daily.Disp: 30 tabletRfl: 11 triamcinolone (KENALOG) 0.025 % creamApply 1 application to affected area twice daily.Disp: 30 gRfl: 0 albuterol HFA (PROVENTIL HFA, VENTOLIN HFA) 90 mcg/actuation inhalerInhale 2 Puffs as instructed every 6 hours as needed for wheezing/shortness of breath.Disp: 18 gRfl: 3 beclomethasone (QVAR REDIHALER) 80 mcg/actuation inhalerInhale 2 Puffs as instructed twice daily.Disp: 1 EachRfl: 5 miconazole (MONISTAT 7) 2 % vaginal creamUse 1 Applicator vaginally daily at bedtime.Disp: 45 gRfl: 0 medroxyPROGESTERone (DEPO-PROVERA) 150 mg/mL injectionuse as directed intramuscularly EVERY 12 WEEKSDisp: 1 mLRfl: 4 propranolol (INDERAL) 10 mg tabletTAKE 1 TABLET BY MOUTH THREE TIMES A DAY IF TREMORS PERSIST, IF NOT, MAY TRY TO WEAN DOWN DAILY DOSEDisp: 84 tabletRfl: 5 multivitamin with folic acid (THEREMS MULTIVITAMIN) 400 mcgTake 1 tablet by mouth once daily.Disp: 30 tabletRfl: 11 lactobacillus rhamnosus ([facility] Yulex [facility]) 10 billion cell -200 mg capsuleTake 1 capsule by mouth once daily.Disp: 30 capsuleRfl: 11 SUMAtriptan (IMITREX) 50 mg tabletTake one tablet at onset of headache, may repeat in two hours if needed. No more than two tablets in 24 hoursDisp: 6 tabletRfl: 1 naproxen (NAPROSYN) 500 mg tabletTake 1 tablet by mouth twice daily with meals. Takes as neededDisp: 60 tabletRfl: 5 sodium chloride (SALINE MIST) 0.65 % nasal sprayUse 1 [place] in the nose as needed for cold/allergy symptoms.Disp: 44 mLRfl: 0 sucralfate (CARAFATE) 1 gram tabletTake 1 tablet by mouth before meals and at bedtime.Disp: 120 tabletRfl: 1 carbamide peroxide (DEBROX) 6.5 % otic solutionUse 5 Drops in both ears twice daily.Disp: 15 mLRfl: 0 Cholecalciferol, Vitamin D3, 50 mcg (2,000 unit) capTake 2 capsules by mouth once daily.Disp: 56 capsuleRfl: 11 acetaminophen (TYLENOL EXTRA STRENGTH) 500 mg tabletTake 1 tablet by mouth every 6 hours as needed for pain for up to 60 doses.Disp: 60 tabletRfl: 3 Nicotine Polacrilex [address] 1 Lozenge between cheek and gum as needed.Disp: 108 LozengeRfl: 3 diclofenac (VOLTAREN ARTHRITIS PAIN) 1 % topical gelApply 2 g to affected area four times daily.Disp: 50 gRfl: 0 cyclobenzaprine (FLEXERIL) 10 mg tabletTake 1 tablet by mouth three times daily as needed for muscle spasm.Disp: 18 tabletRfl: 0 fluticasone (FLONASE) 50 mcg/actuation nasal sprayUse 2 Sprays in each nostril once daily. Rinse mouth after use.Disp: 1 EachRfl: 0 promethazine (PHENERGAN) 25 mg tablettake 1 tablet by mouth three times a day if needed for nausea and vomitingDisp: 60 tabletRfl: 3 Foot Care Products (GEL BUNION CUSHION) pads1 Device once daily. Apply pad to area daily as neededDisp: 14 EachRfl: 2 multivitamin tabletTake 1 tablet by mouth once daily.Disp: 30 tabletRfl: 11 lactobacillus acidophilus 100 mg (1 billion cell) cap(s)Take 1 capsule by mouth once daily.Disp: 30 capsuleRfl (more content not included)... [facility] 12-29-2022 History of Present illness Narrative Subjective HPI Nontoxic female presents urgent care chief complaint nausea vomiting body aches chills loose stool cough sore throat. [facility] States to individuals that she was close to had nausea vomiting diarrhea as well. Presents today for reevaluation. States symptoms are improving slightly. Did vomit 1 time today. No blood in vomit. States she is fatigued. Has not use any OTC medications. Denies any fever body aches chills productive cough chest pain shortness of breath pleuritic pain hemoptysis or rash. Past medical history prescription medication use and allergies reviewed. .Patient presents with: Nausea: vomiting, bodyaches, diarrhea, cough and sore throat x 12/20 PAST MEDICAL HISTORY Diagnosis Date 11/2009 Anxiety Arthritis Asthma COPD (chronic obstructive pulmonary disease) (HCC) Depression Obesity (BMI 30.0-34.9) CHARLES (obstructive sleep apnea) Recurrent UTI Seasonal allergies STD (sexually transmitted disease) Tobacco use disorder 05/18/2021 PAST SURGICAL HISTORY Procedure Laterality Date COLONOSCOPY W/BIOPSY SINGLE/MULTIPLE 03/02/11 ESOPHAGOGASTRODUODENOSCOPY TRANSORAL DIAGNOSTIC 11/14/2012 EGD ESOPHAGOGASTRODUODENOSCOPY TRANSORAL DIAGNOSTIC 06/02/2020 EGD MED INC ALL EX DRUG 11/2009 PAST SURGICAL HISTORY OF WISDOM TEETH ALLERGIES Benzalkonium Chloride; Clindamycin; Doxycycline; Flagyl [Metronidazole]; Hand Sales Assistant Institutional Sales [Ethyl Alcohol (Skin Cleanser)]; Iodine; Latex, Natural Rubber; [place]; Meloxicam; Morphine; Penicillin; Prednisone; Singulair [Montelukast]; and Zofran [Ondansetron Hcl (Pf)] MEDICATIONS ascorbic acid, vitamin C, (VITAMIN C) 500 mg tablet^Take 1 tablet by mouth once daily.^Disp: 30 tablet^Rfl: [address] (PROTONIX) 40 mg tablet^Take 1 tablet by mouth once daily.^Disp: 30 tablet^Rfl: 11 triamcinolone (KENALOG) 0.025 % cream^Apply 1 application to affected area twice daily.^Disp: 30 g^Rfl: 0 albuterol HFA (PROVENTIL HFA, VENTOLIN HFA) 90 mcg/actuation inhaler^Inhale 2 Puffs as instructed every 6 hours as needed for wheezing/shortness of breath.^Disp: 18 g^Rfl: 3 beclomethasone (QVAR REDIHALER) 80 mcg/actuation inhaler^Inhale 2 Puffs as instructed twice daily.^Disp: 1 Each^Rfl: 5 miconazole (MONISTAT 7) 2 % vaginal cream^Use 1 Applicator vaginally daily at bedtime.^Disp: 45 g^Rfl: 0 medroxyPROGESTERone (DEPO-PROVERA) 150 mg/mL injection^use as directed intramuscularly EVERY 12 WEEKS^Disp: 1 mL^Rfl: 4 propranolol (INDERAL) 10 mg tablet^TAKE 1 TABLET BY MOUTH THREE TIMES A DAY IF TREMORS PERSIST, IF NOT, MAY TRY TO WEAN DOWN DAILY DOSE^Disp: 84 tablet^Rfl: 5 multivitamin with folic acid ([facility] MULTIVITAMIN) 400 mcg^Take 1 tablet by mouth once daily.^Disp: 30 tablet^Rfl: 11 lactobacillus rhamnosus ([facility] [employer] [facility]) 10 billion cell -200 mg capsule^Take 1 capsule by mouth once daily.^Disp: 30 capsule^Rfl: 11 SUMAtriptan (IMITREX) 50 mg tablet^Take one tablet at onset of headache, may repeat in two hours if needed. No more than two tablets in 24 hours^Disp: 6 tablet^Rfl: 1 naproxen (NAPROSYN) 500 mg tablet^Take 1 tablet by mouth twice daily with meals. Takes as needed^Disp: 60 tablet^Rfl: 5 sodium chloride (SALINE MIST) 0.65 % nasal spray^Use 1 [place] in the nose as needed for cold/allergy symptoms.^Disp: 44 mL^Rfl: 0 sucralfate (CARAFATE) 1 gram tablet^Take 1 tablet by mouth before meals and at bedtime.^Disp: 120 tablet^Rfl: 1 carbamide peroxide (DEBROX) 6.5 % otic solution^Use 5 Drops in both ears twice daily.^Disp: 15 mL^Rfl: 0 Cholecalciferol, Vitamin D3, 50 mcg (2,000 unit) cap^Take 2 capsules by mouth once daily.^Disp: 56 capsule^Rfl: 11 acetaminophen (TYLENOL EXTRA STRENGTH) 500 mg tablet^Take 1 tablet by mouth every 6 hours as needed for pain for up to 60 doses.^Disp: 60 tablet^Rfl: 3 Nicotine Polacrilex 4 mg lozenge^Place 1 Lozenge between cheek and gum as needed.^Disp: 108 Lozenge^Rfl: 3 diclofenac (VOLTAREN ARTHRITIS PAIN) 1 % topical gel^Apply 2 g to affected area four times daily.^Disp: 50 g^Rfl: 0 cyclobenzaprine (FLEXERIL) 10 mg tablet^Take 1 tablet by mouth three times daily as needed for muscle spasm.^Disp: 18 tablet^Rfl: 0 fluticasone (FLONASE) 50 mcg/actuation nasal spray^Use 2 Sprays in each nostril once daily. Rinse mouth after use.^Disp: 1 Each^Rfl: 0 promethazine (PHENERGAN) 25 mg tablet^take 1 tablet by mouth three times a day if needed for nausea and vomiting^Disp: 60 tablet^Rfl: 3 Foot Care Products (GEL BUNION CUSHION) pads^1 Device once daily. Apply pad to area daily as needed^Disp: 14 Each^Rfl: 2 multivitamin tablet^Take 1 tablet by mouth once daily.^Disp: 30 tablet^Rfl: 11 lactobacillus acidophilus 100 mg (1 billion cell) cap(s)^Take 1 capsule by mouth once daily.^Disp: 30 capsule^Rfl: 11 lamoTRIgine orally disintegrating (LAMICTAL ODT) 25 mg disintegrating tablet^Take 25 mg by mouth once daily. ^Disp: ^Rfl: cariprazine (VRAYLAR) 3 mg capsule^Take by mouth.^Disp: ^Rfl: benztropine (COGENTIN) 0.5 mg tablet^Take 1 mg by mouth twice daily. Takes once daily- patient chooses alternate^Disp: ^Rfl: loratadine (CLARITIN) 10 mg tablet^Take 1 tablet by mouth once daily.^Disp: 28 tablet^Rfl: 11 nicotine (NICODERM) 21 mg/24 hr^Apply 1 Patch as directed every 24 hours.^Disp: 30 Patch^Rfl: 3 FAMILY HISTORY Problem Relation Age of Onset Alcohol/Drug Mother Arthritis Mother Asthma Mother Cancer Mother CANCER Hypertension Mother Stroke Mother Cancer Father LUNG CANCER Emphysema Father Asthma Brother Breast Cancer Maternal Aunt Hypertension Brother Social History Tobacco Use Smoking status: Every Day Packs/day: 1.50 Years: 25.00 Pack years: 37.50 Types: Cigarettes Last attempt to quit: 03/09/2021 Years since quittin.8 Smokeless tobacco: Never Vaping Use Vaping Use: Never used Substance Use Topics Alcohol use: Not Currently Comment: Quit 12/2021 Drug use: No BP 124/72 Pulse 106 Temp 36.6 C (97.8 F) Resp 16 Wt 101.2 kg (223 lb) LMP (LMP Unknown) SpO2 97% BMI 34.93 kg/m Review of Systems Constitutional: Positive for malaise/fatigue. Negative for chills and fever. HENT: Positive for sore throat. Negative for congestion, ear discharge, ear pain and sinus pain. Eyes: Negative for blurred vision, pain, discharge and redness. Respiratory: Positive for cough. Negative for hemoptysis, sputum production, shortness of breath, wheezing and stridor. Cardiovascular: Negative for chest pain. Gastrointestinal: Positive for abdominal pain, nausea and vomiting. Negative for diarrhea. Musculoskeletal: Positive for myalgias. Skin: Negative for itching and rash. Neurological: Negative for dizziness and headaches. Objective Physical Exam Constitutional: General: She is not in acute distress. Appearance: She is not diaphoretic. HENT: Head: Normocephalic. Mouth/Throat: Mouth: Mucous membranes are moist. Pharynx: Oropharynx is clear. No oropharyngeal exudate or posterior oropharyngeal erythema. Eyes: Conjunctiva/sclera: Conjunctivae normal. Pupils: Pupils are equal, round, and reactive to light. Cardiovascular: Rate and Rhythm: Normal rate and regular rhythm. Heart sounds: Normal heart sounds. Pulmonary: Effort: Pulmonary effort is normal. No tachypnea, accessory muscle usage or respiratory distress. Breath sounds: Normal breath sounds. No stridor. No wheezing, rhonchi or rales. Abdominal: Palpations: Abdomen is soft. Tenderness: There is no abdominal tenderness. There is no guarding or rebound. Musculoskeletal: Cervical back: Normal range of motion and neck supple. No rigidity or tenderness. Lymphadenopathy: Cervical: No cervical adenopathy. Skin: General: Skin is warm and dry. Neurological: Mental Status: She is alert and oriented to person, place, and time. ASSESSMENT/PLAN: 1. Fatigue, unspecified type - ICD9: 780.79, ICD10: R53.83 (primary diagnosis) - CBC + DIFF - COMP METABOLIC PANEL - MONOTEST, INFECTIOUS MONO 2. Viral illness - ICD9: 079.99, ICD10: B34.9 Patient diagnosed with viral illness. Nontoxic-appearing. No evidence of acute abdomen. Treat conservatively at this time. Basic labs as ordered. Patient was educated on supportive therapies. Patient will follow up with primary care provider as needed. Patient was instructed to immediately proceed to emergency room for any new, worsening, or symptoms lasting longer than anticipated. The patient's clinical presentation is otherwise unremarkable at this time. Based on exam and clinical finding, the patient is stable for discharge. Plan of care was discussed with patient. Patient verbalizes understanding and agrees to plan of care. This note was generated using ISH software. It may contain errors in wording, punctuation, or spelling. Main [place] APRN.JOSE ROBERTO documented in this encounter [facility] 12-27-2022 Miscellaneous Notes OK to refill as ordered Win Mejia MD Patient has been identified by name and date of : Yes, Provider Dr Mejia Date 12/27/22 Time 1626. Pharmacy phones for refill(s): Requested Prescriptions Pending Prescriptions Disp Refills ascorbic acid, vitamin C, (VITAMIN C) 500 mg tablet 30 tablet 5 Sig: Take 1 tablet by mouth once daily. loratadine (CLARITIN) 10 mg tablet 28 tablet 11 Sig: Take 1 tablet by mouth once daily. Date of last office visit in primary care: 11/10/22 Future visit: none Last 2 Encounter Wt Readings: Date: Wt: 12/09/2022 100.1 kg (220 lb 9.6 oz) 11/17/2022 106.6 kg (235 lb) Previous labs/tests for medication: Blood Pressure: BUN (mg/dL) Date Value 12/09/2022 12 01/13/2021 12 Sodium (mmol/L) Date Value 12/09/2022 139 01/13/2021 139 Last 1 Encounter BP Readings: Date: BP: 12/09/2022 110/76 Liver Function: ALT (U/L) Date Value 02/24/2022 23 01/13/2021 22 AST (U/L) Date Value 02/24/2022 17 01/13/2021 18 Please advise. Thank you. Maureen Benjamin, RN documented in this encounter [facility] 12-13-2022 Miscellaneous Notes Pt notified of results. Adrienne Moctezuma LPN Left message to call office. Linda Padilla RN Please let the pt know that her urine culture is negative for infection. Tete Romero APRN.CNP documented in this encounter [facility] 12-10-2022 Miscellaneous Notes Spoke with pt and information listed below given. Pt verbalizes understanding. Ayleen Murrieta LPN VM left instructing patient to return call to receive results. Ave Jiang MA Please notify of negative covid test. Continue comfort measures for symptoms as you would for a cold. Any worsening symptoms follow up with PCP or ER. Geovanna Carmichael APRN.CNP documented in this encounter [facility] 12-09-2022 Note HNO ID: [id number] Author: Ian Ying MD Service: ? Author Type: Physician Type: Progress Notes Filed: 12/09/2022 12:10 PM Note Text: Patient presents with: Derm Problem: Clearance for eczema HPI: Patient presents for skin clearance to be admitted to an inpatient psychiatric facility ([facility]). She denies suicidal or homicidal ideation. States she is going for admission to get her medications adjusted. Rash: Location: elbows, forearms, wrists Duration: years Pruritis: sometimes Pain: No Change: NO Bleeding/ulceration/blister/pustu le: dry patches and bumps Contacts with rash: No Exposure: Worse with frequent hand washing. No new soaps, detergents, fabric softeners, lotions. Outdoor exposure: No. Change in medications: No. Recent illness: current fatigue and taste was off yesterday. Treatment: as needed triamcinolone cream. She is also is concerned she have mono because she has been fatigued and frozen food she ate earlier this week tasted fishy. MEDICATIONS: pantoprazole DR (PROTONIX) 40 mg tabletTake 1 tablet by mouth once daily.Disp: 30 tabletRfl: 11 triamcinolone (KENALOG) 0.025 % creamApply 1 application to affected area twice daily.Disp: 30 gRfl: 0 albuterol HFA (PROVENTIL HFA, VENTOLIN HFA) 90 mcg/actuation inhalerInhale 2 Puffs as instructed every 6 hours as needed for wheezing/shortness of breath.Disp: 18 gRfl: 3 beclomethasone (QVAR REDIHALER) 80 mcg/actuation inhalerInhale 2 Puffs as instructed twice daily.Disp: 1 EachRfl: 5 miconazole (MONISTAT 7) 2 % vaginal creamUse 1 Applicator vaginally daily at bedtime.Disp: 45 gRfl: 0 medroxyPROGESTERone (DEPO-PROVERA) 150 mg/mL injectionuse as directed intramuscularly EVERY 12 WEEKSDisp: 1 mLRfl: 4 propranolol (INDERAL) 10 mg tabletTAKE 1 TABLET BY MOUTH THREE TIMES A DAY IF TREMORS PERSIST, IF NOT, MAY TRY TO WEAN DOWN DAILY DOSEDisp: 84 tabletRfl: 5 multivitamin with folic acid ([facility] MULTIVITAMIN) 400 mcgTake 1 tablet by mouth once daily.Disp: 30 tabletRfl: 11 lactobacillus rhamnosus ([facility] Yulex [facility]) 10 billion cell -200 mg capsuleTake 1 capsule by mouth once daily.Disp: 30 capsuleRfl: 11 SUMAtriptan (IMITREX) 50 mg tabletTake one tablet at onset of headache, may repeat in two hours if needed. No more than two tablets in 24 hoursDisp: 6 tabletRfl: 1 naproxen (NAPROSYN) 500 mg tabletTake 1 tablet by mouth twice daily with meals. Takes as neededDisp: 60 tabletRfl: 5 sodium chloride (SALINE MIST) 0.65 % nasal sprayUse 1 [place] in the nose as needed for cold/allergy symptoms.Disp: 44 mLRfl: 0 sucralfate (CARAFATE) 1 gram tabletTake 1 tablet by mouth before meals and at bedtime.Disp: 120 tabletRfl: 1 carbamide peroxide (DEBROX) 6.5 % otic solutionUse 5 Drops in both ears twice daily.Disp: 15 mLRfl: 0 ascorbic acid, vitamin C, (VITAMIN C) 500 mg tabletTake 1 tablet by mouth once daily.Disp: 30 tabletRfl: 5 Cholecalciferol, Vitamin D3, 50 mcg (2,000 unit) capTake 2 capsules by mouth once daily.Disp: 56 capsuleRfl: 11 acetaminophen (TYLENOL EXTRA STRENGTH) 500 mg tabletTake 1 tablet by mouth every 6 hours as needed for pain for up to 60 doses.Disp: 60 tabletRfl: 3 nicotine (NICODERM) 21 mg/24 hrApply 1 Patch as directed every 24 hours.Disp: 30 PatchRfl: 3 Nicotine Polacrilex [address] 1 Lozenge between cheek and gum as needed.Disp: 108 LozengeRfl: 3 diclofenac (VOLTAREN ARTHRITIS PAIN) 1 % topical gelApply 2 g to affected area four times daily.Disp: 50 gRfl: 0 cyclobenzaprine (FLEXERIL) 10 mg tabletTake 1 tablet by mouth three times daily as needed for muscle spasm.Disp: 18 tabletRfl: 0 fluticasone (FLONASE) 50 mcg/actuation nasal sprayUse 2 Sprays in each nostril once daily. Rinse mouth after use.Disp: 1 EachRfl: 0 loratadine (CLARITIN) 10 mg tabletTake 1 tablet by mouth once daily.Disp: 28 tabletRfl: 11 promethazine (PHENERGAN) 25 mg tablettake 1 tablet by mouth three times a day if needed for nausea and vomitingDisp: 60 tabletRfl: 3 Foot Care Products (GEL BUNION CUSHION) pads1 Device once daily. Apply pad to area daily as neededDisp: 14 EachRfl: 2 multivitamin tabletTake 1 tablet by mouth once daily.Disp: 30 tabletRfl: 11 lactobacillus acidophilus 100 mg (1 billion cell) cap(s)Take 1 capsule by mouth once daily.Disp: 30 capsuleRfl: 11 lamoTRIgine orally disintegrating (LAMICTAL ODT) 25 mg disintegrating tabletTake 25 mg by mouth once daily. Disp: Rfl: cariprazine (VRAYLAR) 3 mg capsuleTake by mouth.Disp: Rfl: benztropine (COGENTIN) 0.5 mg tabletTake 1 mg by mouth twice daily. Takes once daily- patient chooses alternateDisp: Rfl: ALLERGIES: ALLERGIES Allergen Reactions Benzalkonium Chlori* Other: See Comments Skin irritations Clindamycin GI Upset Doxycycline GI Upset stomach cramps Flagyl [Metronidazo* Hives Hand Sales Assistant Institutional Sales [Eth* Rash PT HAS SENSITIVE SKIN. O.K. FOR MEDICAL PROFESSIONAL TO USE HAND CONTENT DEVELOPMENT MANAGER (more content not included)... [facility] 12-09-2022 History of Present illness Narrative Patient presents with: Derm Problem: Clearance for eczema HPI: Patient presents for skin clearance to be admitted to an inpatient psychiatric facility ([facility] near [place]). She denies suicidal or homicidal ideation. States she is going for admission to get her medications adjusted. Rash: Location: elbows, forearms, wrists Duration: years Pruritis: sometimes Pain: No Change: NO Bleeding/ulceration/blister/pustu le: dry patches and bumps Contacts with rash: No Exposure: Worse with frequent hand washing. No new soaps, detergents, fabric softeners, lotions. Outdoor exposure: No. Change in medications: No. Recent illness: current fatigue and taste was off yesterday. Treatment: as needed triamcinolone cream. She is also is concerned she have mono because she has been fatigued and frozen food she ate earlier this week tasted fishy. MEDICATIONS: pantoprazole DR (PROTONIX) 40 mg tablet^Take 1 tablet by mouth once daily.^Disp: 30 tablet^Rfl: 11 triamcinolone (KENALOG) 0.025 % cream^Apply 1 application to affected area twice daily.^Disp: 30 g^Rfl: 0 albuterol HFA (PROVENTIL HFA, VENTOLIN HFA) 90 mcg/actuation inhaler^Inhale 2 Puffs as instructed every 6 hours as needed for wheezing/shortness of breath.^Disp: 18 g^Rfl: 3 beclomethasone (QVAR REDIHALER) 80 mcg/actuation inhaler^Inhale 2 Puffs as instructed twice daily.^Disp: 1 Each^Rfl: 5 miconazole (MONISTAT 7) 2 % vaginal cream^Use 1 Applicator vaginally daily at bedtime.^Disp: 45 g^Rfl: 0 medroxyPROGESTERone (DEPO-PROVERA) 150 mg/mL injection^use as directed intramuscularly EVERY 12 WEEKS^Disp: 1 mL^Rfl: 4 propranolol (INDERAL) 10 mg tablet^TAKE 1 TABLET BY MOUTH THREE TIMES A DAY IF TREMORS PERSIST, IF NOT, MAY TRY TO WEAN DOWN DAILY DOSE^Disp: 84 tablet^Rfl: 5 multivitamin with folic acid ([facility] MULTIVITAMIN) 400 mcg^Take 1 tablet by mouth once daily.^Disp: 30 tablet^Rfl: 11 lactobacillus rhamnosus ([facility] Yulex [facility]) 10 billion cell -200 mg capsule^Take 1 capsule by mouth once daily.^Disp: 30 capsule^Rfl: 11 SUMAtriptan (IMITREX) 50 mg tablet^Take one tablet at onset of headache, may repeat in two hours if needed. No more than two tablets in 24 hours^Disp: 6 tablet^Rfl: 1 naproxen (NAPROSYN) 500 mg tablet^Take 1 tablet by mouth twice daily with meals. Takes as needed^Disp: 60 tablet^Rfl: 5 sodium chloride (SALINE MIST) 0.65 % nasal spray^Use 1 [place] in the nose as needed for cold/allergy symptoms.^Disp: 44 mL^Rfl: 0 sucralfate (CARAFATE) 1 gram tablet^Take 1 tablet by mouth before meals and at bedtime.^Disp: 120 tablet^Rfl: 1 carbamide peroxide (DEBROX) 6.5 % otic solution^Use 5 Drops in both ears twice daily.^Disp: 15 mL^Rfl: 0 ascorbic acid, vitamin C, (VITAMIN C) 500 mg tablet^Take 1 tablet by mouth once daily.^Disp: 30 tablet^Rfl: 5 Cholecalciferol, Vitamin D3, 50 mcg (2,000 unit) cap^Take 2 capsules by mouth once daily.^Disp: 56 capsule^Rfl: 11 acetaminophen (TYLENOL EXTRA STRENGTH) 500 mg tablet^Take 1 tablet by mouth every 6 hours as needed for pain for up to 60 doses.^Disp: 60 tablet^Rfl: 3 nicotine (NICODERM) 21 mg/24 hr^Apply 1 Patch as directed every 24 hours.^Disp: 30 Patch^Rfl: 3 Nicotine Polacrilex 4 mg lozenge^Place 1 Lozenge between cheek and gum as needed.^Disp: 108 Lozenge^Rfl: 3 diclofenac (VOLTAREN ARTHRITIS PAIN) 1 % topical gel^Apply 2 g to affected area four times daily.^Disp: 50 g^Rfl: 0 cyclobenzaprine (FLEXERIL) 10 mg tablet^Take 1 tablet by mouth three times daily as needed for muscle spasm.^Disp: 18 tablet^Rfl: 0 fluticasone (FLONASE) 50 mcg/actuation nasal spray^Use 2 Sprays in each nostril once daily. Rinse mouth after use.^Disp: 1 Each^Rfl: 0 loratadine (CLARITIN) 10 mg tablet^Take 1 tablet by mouth once daily.^Disp: 28 tablet^Rfl: 11 promethazine (PHENERGAN) 25 mg tablet^take 1 tablet by mouth three times a day if needed for nausea and vomiting^Disp: 60 tablet^Rfl: 3 Foot Care Products (GEL BUNION CUSHION) pads^1 Device once daily. Apply pad to area daily as needed^Disp: 14 Each^Rfl: 2 multivitamin tablet^Take 1 tablet by mouth once daily.^Disp: 30 tablet^Rfl: 11 lactobacillus acidophilus 100 mg (1 billion cell) cap(s)^Take 1 capsule by mouth once daily.^Disp: 30 capsule^Rfl: 11 lamoTRIgine orally disintegrating (LAMICTAL ODT) 25 mg disintegrating tablet^Take 25 mg by mouth once daily. ^Disp: ^Rfl: cariprazine (VRAYLAR) 3 mg capsule^Take by mouth.^Disp: ^Rfl: benztropine (COGENTIN) 0.5 mg tablet^Take 1 mg by mouth twice daily. Takes once daily- patient chooses alternate^Disp: ^Rfl: ALLERGIES: ALLERGIES Allergen Reactions Benzalkonium Chlori* Other: See Comments Skin irritations Clindamycin GI Upset Doxycycline GI Upset stomach cramps Flagyl [Metronidazo* Hives Hand Sales Assistant Institutional Sales [Eth* Rash PT HAS SENSITIVE SKIN. O.K. FOR MEDICAL PROFESSIONAL TO USE HAND CONTENT DEVELOPMENT MANAGER AND THEN TOUCH HER, BUT SHE HERSELF DOES NOT USE IT. Iodine Rash Latex, Natural Rubb* Rash Local itching with contact and rash [place] Intolerance Sore throat Meloxicam Unknown Morphine Itching Penicillin Unknown Prednisone Other: See Comments Moodiness, restlessness, states feels like crap all over . Singulair [[place]* Unknown Possible rash Zofran [Ondansetron* Other: See Comments Zofran causes cramping and constipation VITALS: BP 110/76 Pulse 103 Temp 36.7 C (98 F) Resp 18 Wt 100.1 kg (220 lb 9.6 oz) LMP (LMP Unknown) SpO2 97% BMI 34.55 kg/m PHYSICAL EXAM: GEN: pleasant, no acute distress, alert SKIN: patches and papules of slightly scaly and erythematous lesions on the extensor surface of the elbows with some extension to the upper forearm. Dorsal hands are also somewhat xerotic. ASSESSMENT/PLAN: 1. Eczema, unspecified type - ICD9: 692.9, ICD10: L30.9 (primary diagnosis) I spoke with the admission line from [facility]. She needed a letter confirming her rash was not from bed bugs or other contagious condition - written. Transportation pickup scheduled tomorrow morning. 2. Fatigue, unspecified type - ICD9: 780.79, ICD10: R53.83 3. Altered taste - ICD9: 781.1, ICD10: R43.2 Mononucleosis is unlikely to affect her taste. - 2019 CORONAVIRUS checked today. She was also sent to the lab to have CBC and BMP ordered by primary care a few weeks ago. Ian Ying MD documented in this encounter [facility] 12-01-2022 Note Patient Outreach (IN [facility]) ANGELICA ANDUJAR ([id number]) 1980 F Date Time Provider Department 12/01/22 WIN MEJIA During your visit today, we recorded the following information about you: Allergies As of Date: 12/01/2022 Noted Allergy Reaction BENZALKONIUM CHLORIDE 09/08/2012 14 - Other: See Comments Comments: Skin irritations CLINDAMYCIN 03/27/2018 8 - GI Upset DOXYCYCLINE 12/13/2012 8 - GI Upset Comments: stomach cramps FLAGYL (METRONIDAZOLE) 04/11/2018 4 - Hives HAND CONTENT DEVELOPMENT MANAGER (ETHYL ALCOHOL (SK*11/04/2009 2 - Rash Comments: PT HAS SENSITIVE SKIN. O.K. FOR MEDICAL PROFESSIONAL TO USE HAND CONTENT DEVELOPMENT MANAGER AND THEN TOUCH HER, BUT SHE HERSELF DOES NOT USE IT. IODINE 02/18/2011 2 - Rash LATEX, NATURAL RUBBER 03/17/2018 2 - Rash Comments: Local itching with contact and rash [place] 12/07/2017 5 - Intolerance Comments: Sore throat MELOXICAM 06/12/2018 16 - Unknown MORPHINE 03/02/2011 9 - Itching PENICILLIN 06/18/2016 16 - Unknown PREDNISONE 08/26/2012 14 - Other: See Comments Comments: Moodiness, restlessness, states feels like crap all over . SINGULAIR (MONTEL[place]AST) 12/07/2017 16 - Unknown Comments: Possible rash ZOFRAN (ONDANSETRON HCL (PF)) 03/02/2011 14 - Other: See Comments Comments: Zofran causes cramping and constipation Date Reviewed: 11/17/2022 Reviewed by: Azra Elias LPN - Fully Assessed Visit Diagnosis:Encounter for screening mammogram for breast cancer [Z12.31] Order(s):[facility]CREEN[facility] [[id number]] Order #: [id number] FUTURE Prescriptions as of 12/06/2022 - pantoprazole DR (PROTONIX) 40 mg tablet Take 1 tablet by mouth once daily. - triamcinolone (KENALOG) 0.025 % cream Apply 1 application to affected area twice daily. - albuterol HFA (PROVENTIL HFA, VENTOLIN HFA) 90 mcg/actuation inhaler Inhale 2 Puffs as instructed every 6 hours as needed for wheezing/shortness of breath. - beclomethasone (QVAR REDIHALER) 80 mcg/actuation inhaler Inhale 2 Puffs as instructed twice daily. - miconazole (MONISTAT 7) 2 % vaginal cream Use 1 Applicator vaginally daily at bedtime. - medroxyPROGESTERone (DEPO-PROVERA) 150 mg/mL injection use as directed intramuscularly EVERY 12 WEEKS - propranolol (INDERAL) 10 mg tablet TAKE 1 TABLET BY MOUTH THREE TIMES A DAY IF TREMORS PERSIST, IF NOT, MAY TRY TO WEAN DOWN DAILY DOSE - multivitamin with folic acid ([facility] MULTIVITAMIN) 400 mcg Take 1 tablet by mouth once daily. - lactobacillus rhamnosus ([facility] [employer]lex [facility]) 10 billion cell -200 mg capsule Take 1 capsule by mouth once daily. - SUMAtriptan (IMITREX) 50 mg tablet Take one tablet at onset of headache, may repeat in two hours if needed. No more than two tablets in 24 hours - naproxen (NAPROSYN) 500 mg tablet Take 1 tablet by mouth twice daily with meals. Takes as needed - sodium chloride (SALINE MIST) 0.65 % nasal spray Use 1 [place] in the nose as needed for cold/allergy symptoms. - sucralfate (CARAFATE) 1 gram tablet Take 1 tablet by mouth before meals and at bedtime. - carbamide peroxide (DEBROX) 6.5 % otic solution Use 5 Drops in both ears twice daily. - ascorbic acid, vitamin C, (VITAMIN C) 500 mg tablet Take 1 tablet by mouth once daily. - Cholecalciferol, Vitamin D3, 50 mcg (2,000 unit) cap Take 2 capsules by mouth once daily. - acetaminophen (TYLENOL EXTRA STRENGTH) 500 mg tablet Take 1 tablet by mouth every 6 hours as needed for pain for up to 60 doses. - nicotine (NICODERM) 21 mg/24 hr Apply 1 Patch as directed every 24 hours. - Nicotine Polacrilex [address] 1 Lozenge between cheek and gum as needed. - diclofenac (VOLTAREN ARTHRITIS PAIN) 1 % topical gel Apply 2 g to affected area four times daily. - cyclobenzaprine (FLEXERIL) 10 mg tablet Take 1 tablet by mouth three times daily as needed for muscle spasm. - fluticasone (FLONASE) 50 mcg/actuation nasal spray Use 2 Sprays in each nostril once daily. Rinse mouth after use. - loratadine (CLARITIN) 10 mg tablet Take 1 tablet by mouth once daily. - promethazine (PHENERGAN) 25 mg tablet take 1 tablet by mouth three times a day if needed for nausea and vomiting - Foot Care Products (GEL BUNION CUSHION) pads 1 Device once daily. Apply pad to area daily as needed - multivitamin tablet Take 1 tablet by mouth once daily. - lactobacillus acidophilus 100 mg (1 billion cell) cap(s) Take 1 capsule by mouth once daily. - lamoTRIgine orally disintegrating (LAMICTAL ODT) 25 mg disintegrating tablet Take 25 mg by mouth once daily. - cariprazine (VRAYLAR) 3 mg capsule Take by mouth. - benztropine (COGENTIN) 0.5 mg tablet Take 1 mg by mouth twice daily. Takes once daily- patient chooses alternate Facility-Administered Medications as of 12/06/2022 - medroxyPROGESTERone 150 mg injection (DEPO-PROVERA) Meds Comments as of 04/07/2019: Pt states med has not changed. June 10, 2018 Janessa (more content not included)... [facility] 11-22-2022 Miscellaneous Notes Spoke with pt and information listed below given. Pt verbalizes understanding. Ayleen Murrieta LPN Phone call placed brief message to contact a nurse to review results. Fidelia Murrieta LPN Please notify no fungus on testing at 3 days. Will call if becomes positive. F/u with pcp if s/s persist. documented in this encounter [facility] 11-22-2022 Miscellaneous Notes Spoke with pt and information listed below given. Pt verbalizes understanding. Ayleen Murrieta LPN Can you please call the patient and let her know that yes I did prescribe a Z-Francisco for her dental abscess. However at last office visit she never took medication. Had an appointment with dentist. Prabha Springer APRN.JOSE ROBERTO Patient calling she said earlier this month she was put on zpack for dental infection, ear infection. Patient said express care had put her on zpack again. She is concerned if she had side effects she has memory loss? She has no working voicemail on her government phone. Please advise documented in this encounter [facility] 11-21-2022 Miscellaneous Notes Reason for call: Bowel incontinence episode. Outcome: Advised to be seen within 24 hours. Patient states she can not get to office. Does not have the technology available to do a virtual visit. Requesting a phone visit if possible. Also advised patient to reach out to PCP office tomorrow when it opens. Patient verbalized understanding. Reason for Disposition Nursing judgment or information in reference Answer Assessment - Initial Assessment Questions 1. REASON FOR CALL: Patient calling concerned because she had a bowel incontinence episode and is unsure why. Stool was not excessively runny. Does not have diarrhea. Patient just noticed she had a BM on herself and did not feel it happen. Patient has not had back injury, denies numbness or tingling, denies abdominal pain today. Patient reports chronic back pain due to scoliosis but denies any change in back pain. 2. ONSET: Occurred just prior to call 3. SEVERITY: Happened 1 X 4. FEVER: Denies fever 5. OTHER SYMPTOMS: States yesterday she had a stomach ache but it is gone now. 6. TREATMENTS AND RESPONSE: Patient is on antibiotics. 7. : Protocols used: No Guideline [id number] documented in this encounter [facility] 11-19-2022 Miscellaneous Notes Consult for neurology was placed. Patient may call to schedule an appointment at her convenience.Thank you. Prabha Springer APRN.CNP Spoke with pt and information from rizwana phone encounter given. Pt verbalizes understanding. Pt would like to see neurology. Regarding both legs. Pt asking for a consult to be placed and then call her to get an apt scheduled. Her voicemail not working properly may need to call her twice. Ayleen Murrieta LPN documented in this encounter [facility] 11-19-2022 Miscellaneous Notes Left detailed message per patient's note in chart to leave a detailed message. Juana Lin RN Orders filed. Tete Romero APRN.CNP Patient calling c/o dysuria. No other urinary symptoms. Asking for lab urine orders to be placed for her to leave a sample. Patient having phone problems. Call her twice if she does not answer. Kristi Cummins RN documented in this encounter [facility] 11-17-2022 Note HNO ID: [id number] Author: Shara Morel APRN.JOSE ROBERTO Service: ? Author Type: Nurse Practitioner Type: Progress Notes Filed: 11/17/2022 6:06 PM Note Text: This note was created using [employer]. Subjective Angelica Andujar is a 42 year old female. 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 The tremor is intermittent. Denies trauma or injury. Denies weakness. Patient also complaining of tongue pain. Ongoing for past several days. No trauma or injury. The history is provided by the patient. No translator interpreter was used. Sore Throat This is a new problem. The current episode started 1 to 4 weeks ago. The problem has been gradually worsening. There has been no fever. Associated symptoms include congestion, coughing, ear pain and headaches. Pertinent negatives include no abdominal pain, diarrhea, drooling, ear discharge, hoarse voice, plugged ear sensation, neck pain, shortness of breath, stridor, swollen glands, trouble swallowing or vomiting. She has had no exposure to strep or mono. She has tried nothing for the symptoms. The treatment provided no relief. PAST MEDICAL HISTORY Diagnosis Date 11/2009 Anxiety Arthritis Asthma COPD (chronic obstructive pulmonary disease) ([facility]) Depression Obesity (BMI 30.0-34.9) CHARLES (obstructive sleep apnea) Recurrent UTI Seasonal allergies STD (sexually transmitted disease) Tobacco use disorder 05/18/2021 PAST SURGICAL HISTORY Procedure Laterality Date COLONOSCOPY W/BIOPSY SINGLE/MULTIPLE 03/02/11 ESOPHAGOGASTRODUODENOSCOPY TRANSORAL DIAGNOSTIC 11/14/2012 EGD ESOPHAGOGASTRODUODENOSCOPY TRANSORAL DIAGNOSTIC 06/02/2020 EGD MED INC ALL EX DRUG 11/2009 PAST SURGICAL HISTORY OF WISDOM TEETH ALLERGIES Benzalkonium Chloride; Clindamycin; Doxycycline; Flagyl [Metronidazole]; Hand Sales Assistant Institutional Sales [Ethyl Alcohol (Skin Cleanser)]; Iodine; Latex, Natural Rubber; [place]; Meloxicam; Morphine; Penicillin; Prednisone; Singulair [Montelukast]; and Zofran [Ondansetron Hcl (Pf)] MEDICATIONS triamcinolone (KENALOG) 0.025 % creamApply 1 application to affected area twice daily.Disp: 30 gRfl: 0 dextromethorphan-guaiFENesin (ROBITUSSIN COUGH-CHEST DAVID DM) 5-50 mg/5 mL liqdTake 10 mL by mouth every 6 hours as needed (Cough) for up to 10 days.Disp: 236 mLRfl: 1 albuterol HFA (PROVENTIL HFA, VENTOLIN HFA) 90 mcg/actuation inhalerInhale 2 Puffs as instructed every 6 hours as needed for wheezing/shortness of breath.Disp: 18 gRfl: 3 beclomethasone (QVAR REDIHALER) 80 mcg/actuation inhalerInhale 2 Puffs as instructed twice daily.Disp: 1 EachRfl: 5 miconazole (MONISTAT 7) 2 % vaginal creamUse 1 Applicator vaginally daily at bedtime.Disp: 45 gRfl: 0 medroxyPROGESTERone (DEPO-PROVERA) 150 mg/mL injectionuse as directed intramuscularly EVERY 12 WEEKSDisp: 1 mLRfl: 4 propranolol (INDERAL) 10 mg tabletTAKE 1 TABLET BY MOUTH THREE TIMES A DAY IF TREMORS PERSIST, IF NOT, MAY TRY TO WEAN DOWN DAILY DOSEDisp: 84 tabletRfl: 5 multivitamin with folic acid ([facility] MULTIVITAMIN) 400 mcgTake 1 tablet by mouth once daily.Disp: 30 tabletRfl: 11 lactobacillus rhamnosus ([facility] Yulex [facility]) 10 billion cell -200 mg capsuleTake 1 capsule by mouth once daily.Disp: 30 capsuleRfl: 11 SUMAtriptan (IMITREX) 50 mg tabletTake one tablet at onset of headache, may repeat in two hours if needed. No more than two tablets in 24 hoursDisp: 6 tabletRfl: 1 naproxen (NAPROSYN) 500 mg tabletTake 1 tablet by mouth twice daily with meals. Takes as neededDisp: 60 tabletRfl: 5 sodium chloride (SALINE MIST) 0.65 % nasal sprayUse 1 [place] in the nose as needed for cold/allergy symptoms.Disp: 44 mLRfl: 0 sucralfate (CARAFATE) 1 gram tabletTake 1 tablet by mouth before meals and at bedtime.Disp: 120 tabletRfl: 1 carbamide peroxide (DEBROX) 6.5 % otic solutionUse 5 Drops in both ears twice daily.Disp: 15 mLRfl: 0 Cholecalciferol, Vitamin D3, 50 mcg (2,000 unit) capTake 2 capsules by mouth once daily.Disp: 56 capsuleRfl: 11 acetaminophen (TYLENOL EXTRA STRENGTH) 500 mg tabletTake 1 tablet by mouth every 6 hours as needed for pain for up to 60 doses.Disp: 60 tabletRfl: 3 Nicotine Polacrilex [address] lozengePlace 1 Lozenge between cheek and gum as needed.Disp: 108 LozengeRfl: 3 diclofenac (VOLTAREN ARTHRITIS PAIN) 1 % topical gelApply 2 g to affected area four times katie (more content not included)... [facility] 11-17-2022 Miscellaneous Notes Patient notified of results and provider's instructions. Patient verbalizes understanding. Carolina Bell LPN Images from the original note were not included. Yogi Amos You 29 minutes ago (3:46 PM) Patient has large bunion of left foot. No fracture is noted on left foot. If she wants to set up follow-up to evaluate her right foot, I would be happy to see her If she wants, I will place order for right foot xray Order made Yogi Amos DPM Patient called office again for L foot XR results. Read impression of report. Patient verbalized understanding. Patient says her R foot is bothering her now. No injury. Asking if Dr. Amos wants an XR prior to her appointment on 11/25? Pt is calling to get the results of her x-ray. Informed that the results are still in process. We will call her as soon as they are available and reviewed. Ayleen Medina documented in this encounter [facility] 11-17-2022 History of Present illness Narrative This note was created using [employer]. Subjective Angelica Andujar is a 42 year old female. 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 The tremor is intermittent. Denies trauma or injury. Denies weakness. Patient also complaining of tongue pain. Ongoing for past several days. No trauma or injury. The history is provided by the patient. No translator interpreter was used. Sore Throat This is a new problem. The current episode started 1 to 4 weeks ago. The problem has been gradually worsening. There has been no fever. Associated symptoms include congestion, coughing, ear pain and headaches. Pertinent negatives include no abdominal pain, diarrhea, drooling, ear discharge, hoarse voice, plugged ear sensation, neck pain, shortness of breath, stridor, swollen glands, trouble swallowing or vomiting. She has had no exposure to strep or mono. She has tried nothing for the symptoms. The treatment provided no relief. PAST MEDICAL HISTORY Diagnosis Date 11/2009 Anxiety Arthritis Asthma COPD (chronic obstructive pulmonary disease) (HCC) Depression Obesity (BMI 30.0-34.9) CHARLES (obstructive sleep apnea) Recurrent UTI Seasonal allergies STD (sexually transmitted disease) Tobacco use disorder 05/18/2021 PAST SURGICAL HISTORY Procedure Laterality Date COLONOSCOPY W/BIOPSY SINGLE/MULTIPLE 03/02/11 ESOPHAGOGASTRODUODENOSCOPY TRANSORAL DIAGNOSTIC 11/14/2012 EGD ESOPHAGOGASTRODUODENOSCOPY TRANSORAL DIAGNOSTIC 06/02/2020 EGD MED INC ALL EX DRUG 11/2009 PAST SURGICAL HISTORY OF WISDOM TEETH ALLERGIES Benzalkonium Chloride; Clindamycin; Doxycycline; Flagyl [Metronidazole]; Hand Sales Assistant Institutional Sales [Ethyl Alcohol (Skin Cleanser)]; Iodine; Latex, Natural Rubber; [place]; Meloxicam; Morphine; Penicillin; Prednisone; Singulair [Montelukast]; and Zofran [Ondansetron Hcl (Pf)] MEDICATIONS triamcinolone (KENALOG) 0.025 % cream^Apply 1 application to affected area twice daily.^Disp: 30 g^Rfl: 0 dextromethorphan-guaiFENesin (ROBITUSSIN COUGH-CHEST DAVID DM) 5-50 mg/5 mL liqd^Take 10 mL by mouth every 6 hours as needed (Cough) for up to 10 days.^Disp: 236 mL^Rfl: 1 albuterol HFA (PROVENTIL HFA, VENTOLIN HFA) 90 mcg/actuation inhaler^Inhale 2 Puffs as instructed every 6 hours as needed for wheezing/shortness of breath.^Disp: 18 g^Rfl: 3 beclomethasone (QVAR REDIHALER) 80 mcg/actuation inhaler^Inhale 2 Puffs as instructed twice daily.^Disp: 1 Each^Rfl: 5 miconazole (MONISTAT 7) 2 % vaginal cream^Use 1 Applicator vaginally daily at bedtime.^Disp: 45 g^Rfl: 0 medroxyPROGESTERone (DEPO-PROVERA) 150 mg/mL injection^use as directed intramuscularly EVERY 12 WEEKS^Disp: 1 mL^Rfl: 4 propranolol (INDERAL) 10 mg tablet^TAKE 1 TABLET BY MOUTH THREE TIMES A DAY IF TREMORS PERSIST, IF NOT, MAY TRY TO WEAN DOWN DAILY DOSE^Disp: 84 tablet^Rfl: 5 multivitamin with folic acid ([facility] MULTIVITAMIN) 400 mcg^Take 1 tablet by mouth once daily.^Disp: 30 tablet^Rfl: 11 lactobacillus rhamnosus ([facility] Yulex [facility]) 10 billion cell -200 mg capsule^Take 1 capsule by mouth once daily.^Disp: 30 capsule^Rfl: 11 SUMAtriptan (IMITREX) 50 mg tablet^Take one tablet at onset of headache, may repeat in two hours if needed. No more than two tablets in 24 hours^Disp: 6 tablet^Rfl: 1 naproxen (NAPROSYN) 500 mg tablet^Take 1 tablet by mouth twice daily with meals. Takes as needed^Disp: 60 tablet^Rfl: 5 sodium chloride (SALINE MIST) 0.65 % nasal spray^Use 1 [place] in the nose as needed for cold/allergy symptoms.^Disp: 44 mL^Rfl: 0 sucralfate (CARAFATE) 1 gram tablet^Take 1 tablet by mouth before meals and at bedtime.^Disp: 120 tablet^Rfl: 1 carbamide peroxide (DEBROX) 6.5 % otic solution^Use 5 Drops in both ears twice daily.^Disp: 15 mL^Rfl: 0 Cholecalciferol, Vitamin D3, 50 mcg (2,000 unit) cap^Take 2 capsules by mouth once daily.^Disp: 56 capsule^Rfl: 11 acetaminophen (TYLENOL EXTRA STRENGTH) 500 mg tablet^Take 1 tablet by mouth every 6 hours as needed for pain for up to 60 doses.^Disp: 60 tablet^Rfl: 3 Nicotine Polacrilex 4 mg lozenge^Place 1 Lozenge between cheek and gum as needed.^Disp: 108 Lozenge^Rfl: 3 diclofenac (VOLTAREN ARTHRITIS PAIN) 1 % topical gel^Apply 2 g to affected area four times daily.^Disp: 50 g^Rfl: 0 cyclobenzaprine (FLEXERIL) 10 mg tablet^Take 1 tablet by mouth three times daily as needed for muscle spasm.^Disp: 18 tablet^Rfl: 0 fluticasone (FLONASE) 50 mcg/actuation nasal spray^Use 2 Sprays in each nostril once daily. Rinse mouth after use.^Disp: 1 Each^Rfl: 0 loratadine (CLARITIN) 10 mg tablet^Take 1 tablet by mouth once daily.^Disp: 28 tablet^Rfl: [address] (PROTONIX) 40 mg tablet^TAKE 1 TABLET BY MOUTH DAILY^Disp: 30 tablet^Rfl: 11 promethazine (PHENERGAN) 25 mg tablet^take 1 tablet by mouth three times a day if needed for nausea and vomiting^Disp: 60 tablet^Rfl: 3 Foot Care Products (GEL BUNION CUSHION) pads^1 Device once daily. Apply pad to area daily as needed^Disp: 14 Each^Rfl: 2 multivitamin tablet^Take 1 tablet by mouth once daily.^Disp: 30 tablet^Rfl: 11 lactobacillus acidophilus 100 mg (1 billion cell) cap(s)^Take 1 capsule by mouth once daily.^Disp: 30 capsule^Rfl: 11 lamoTRIgine orally disintegrating (LAMICTAL ODT) 25 mg disintegrating tablet^Take 25 mg by mouth once daily. ^Disp: ^Rfl: cariprazine (VRAYLAR) 3 mg capsule^Take by mouth.^Disp: ^Rfl: benztropine (COGENTIN) 0.5 mg tablet^Take 1 mg by mouth twice daily. Takes once daily- patient chooses alternate^Disp: ^Rfl: azithromycin (ZITHROMAX) 250 mg tablet^Take 2 tablets by mouth once daily for 1 day, THEN 1 tablet once daily for 4 days.^Disp: 6 tablet^Rfl: 0 ascorbic acid, vitamin C, (VITAMIN C) 500 mg tablet^Take 1 tablet by mouth once daily.^Disp: 30 tablet^Rfl: 5 nicotine (NICODERM) 21 mg/24 hr^Apply 1 Patch as directed every 24 hours.^Disp: 30 Patch^Rfl: 3 FAMILY HISTORY Problem Relation Age of Onset Alcohol/Drug Mother Arthritis Mother Asthma Mother Cancer Mother CANCER Hypertension Mother Stroke Mother Cancer Father LUNG CANCER Emphysema Father Asthma Brother Breast Cancer Maternal Aunt Hypertension Brother Social History Tobacco Use Smoking status: Every Day Packs/day: 1.50 Years: 25.00 Pack years: 37.50 Types: Cigarettes Last attempt to quit: 03/09/2021 Years since quittin.6 Smokeless tobacco: Never Vaping Use Vaping Use: Never used Substance Use Topics Alcohol use: Not Currently Comment: Quit 12/2021 Drug use: No Review of Systems Constitutional: Positive for fatigue. Negative for activity change, appetite change, chills, diaphoresis and fever. HENT: Positive for congestion, ear pain, sinus pressure and sore throat. Negative for drooling, ear discharge, facial swelling, hearing loss, hoarse voice, mouth sores, nosebleeds, postnasal drip, rhinorrhea, sinus pain, sneezing, trouble swallowing and voice change. Eyes: Negative for photophobia, pain, discharge, redness, itching and visual disturbance. Respiratory: Positive for cough and wheezing. Negative for chest tightness, shortness of breath and stridor. Cardiovascular: Negative for chest pain, palpitations and leg swelling. Gastrointestinal: Negative for abdominal distention, abdominal pain, blood in stool, constipation, diarrhea, nausea and vomiting. Genitourinary: Negative for decreased urine volume, difficulty urinating, dysuria, flank pain, frequency, hematuria and urgency. Musculoskeletal: Positive for myalgias. Negative for arthralgias, back pain, gait problem, joint swelling, neck pain and neck stiffness. Skin: Negative for color change, pallor, rash and wound. Allergic/Immunologic: Positive for environmental allergies, food allergies and immunocompromised state. Neurological: Positive for tremors (left leg shaking) and headaches. Negative for dizziness, weakness, light-headedness and numbness. Hematological: Negative for adenopathy. Psychiatric/Behavioral: Negative for behavioral problems and sleep disturbance. The patient is nervous/anxious. Objective BP 132/84 Pulse 110 Temp 37 C (98.6 F) (Tympanic) Resp 18 Wt 106.6 kg (235 lb) LMP (LMP Unknown) SpO2 96% BMI 36.81 kg/m Physical Exam Vitals and nursing note reviewed. Constitutional: General: She is not in acute distress. Appearance: Normal appearance. She is normal weight. She is not ill-appearing, toxic-appearing or diaphoretic. HENT: Head: Normocephalic and atraumatic. Comments: +frontal sinus pressure Right Ear: Hearing, tympanic membrane, ear canal and external ear normal. There is impacted cerumen. Tympanic membrane is not injected, erythematous or bulging. Left Ear: Hearing, ear canal and external ear normal. Tenderness present. Tympanic membrane is injected, erythematous and bulging. Nose: No congestion or rhinorrhea. Right Sinus: Maxillary sinus tenderness and frontal sinus tenderness present. Left Sinus: Maxillary sinus tenderness and frontal sinus tenderness present. Mouth/Throat: Mouth: Mucous membranes are moist. Pharynx: Posterior oropharyngeal erythema present. No oropharyngeal exudate. Eyes: General: No scleral icterus. Right eye: No discharge. Left eye: No discharge. Conjunctiva/sclera: Conjunctivae normal. Pupils: Pupils are equal, round, and reactive to light. Neck: Vascular: No carotid bruit. Cardiovascular: Rate and Rhythm: Normal rate and regular rhythm. Pulses: Normal pulses. Heart sounds: Normal heart sounds. No murmur heard. No gallop. Pulmonary: Effort: Pulmonary effort is normal. No respiratory distress. Breath sounds: Normal breath sounds. No stridor. No wheezing, rhonchi or rales. Chest: Chest wall: No tenderness. Abdominal: General: Abdomen is flat. Bowel sounds are normal. There is no distension. Palpations: Abdomen is soft. There is no mass. Tenderness: There is no abdominal tenderness. There is no right CVA tenderness, left CVA tenderness, guarding or rebound. Hernia: No hernia is present. Musculoskeletal: General: No swelling, tenderness, deformity or signs of injury. Normal range of motion. Cervical back: Normal range of motion and neck supple. No rigidity or tenderness. Right lower leg: No edema. Left lower leg: No edema. Lymphadenopathy: Cervical: Cervical adenopathy (tonsilar lymphadenopathy) present. Skin: General: Skin is warm and dry. Capillary Refill: Capillary refill takes less than 2 seconds. Coloration: Skin is not jaundiced or pale. Findings: No bruising, erythema, lesion or rash. Neurological: General: No focal deficit present. Mental Status: She is alert and oriented to person, place, and time. Cranial Nerves: No cranial nerve deficit. Sensory: No sensory deficit. Motor: No weakness. Coordination: Coordination normal. Gait: Gait normal. Psychiatric: Mood and Affect: Mood normal. Behavior: Behavior normal. Thought Content: Thought content normal. Assessment and Plan ASSESSMENT/PLAN: 1. Tremor - ICD9: 781.0, ICD10: R25.1 (primary diagnosis) - new symptom, Left leg states that she just started having this tremors in past 2 hours She has not taken her medicines today She does have tremors of upper extremity. Tremor is intermittent in talking NO red flags , follow up with your PCP for leg tremors. 2. Tongue pain - ICD9: 529.6, ICD10: K14.6 - FUNGAL SCREEN- results pending 3. Acute otitis media, left - ICD9: 382.9, ICD10: H66.92 - Will begin treatment with Zithromax pack as directed - Supportive care with plenty of fluids, rest, and analgesia prn. - Follow up in 3-5 days if symptoms persist or worsen. 4. URI, acute - ICD9: 465.9, ICD10: J06.9 - Symptomatic treatment with prn analgesia - Supportive care with fluids and rest - The patient may also use OTC cough and cold meds as needed, warm salt water gargles, throat lozenges and/or OTC throat spray as needed, and nasal saline gtts and suction prn. - Follow up in 3-5 days if symptoms persist or sooner if worsening of symptoms Diana Bustos TEACHING PROVIDER (Physician/PA/SECURITY INCIDENT HANDLER) NOTE OF PERSONAL INVOLVEMENT IN CARE: I have personally seen and examined the patient and performed the medical decision-making components. I have reviewed the Advanced Practice Registered Nurse (SECURITY INCIDENT HANDLER) Student's documentation and verified the findings in the note as written. Any additions or changes are noted in bold/italics. Signature: Shara Morel Date: 11/17/2022 Time: 6:05 PM documented in this encounter [facility] 11-17-2022 Instructions Shara Morel APRN.CNP - 11/17/2022 3:39 PM EDT FOLLOW UP WITH [facility] FOR LEG TREMORS. OTITIS MEDIA GENERAL INFORMATION: Otitis media is an infection of the middle ear. The middle ear sits behind the eardrum. This infection may be caused by a virus or bacteria and often follows a cold. Children often have repeat ear infections. Otitis media is not contagious. INSTRUCTIONS: 1. An antibiotic has been prescribed. It should be taken exactly as prescribed. Do not stop the medicine even if the symptoms go away. 2. [id number] pain medication may be taken or other pain medication as prescribed by the doctor. 3. Nothing should be placed in the ear unless instructed by your doctor. 4. The patient may return to school/daycare or work when the temperature is normal (98.6 F or 37 C). 5. The patient should not swim while the ear is infected. CONTACT YOUR DOCTOR IF YOU OR YOUR CHILD: 1. Does not feel better within 36 hours. 2. Develops a temperature over 102E F (39E C). 3. Starts vomiting or has diarrhea. 4. Develops drainage from the affected ear. 5. Has any new problem that may be related to the medicine prescribed. RETURN TO THE ED IF: 1. You or your child has a severe headache or pain around the ear. 2. You or your child notice swelling around the ear. 3. You or your child has a seizure (convulsion), twitching of the facial muscles, or passes out. 4. You or your child is dizzy, has a stiff neck, or cannot walk or talk normally. 5. Your child becomes more irritable or listless (not interested in his or her surroundings, does not get soothed by you holding him or her). documented in this encounter [facility] 11-17-2022 Miscellaneous Notes Left a message for pt to call the office and ask to speak to a nurse. Pt not getting better and this has been going on since the beginning of November. Pt declined apt in office due to transportation and till come into [facility] if needed. Regarding PT and lab work pt aware. Ayleen Murrieta LPN Called and left message on patients voicemail to return call to the office and ask to speak with a triage nurse. Rafaela Landers Ma I thinks she should continue symptomatic care and monitor for another 3-4 days, since symptoms are not worse, just persistent. As regards her earlier phone message from today, I have ordered PT for her right leg pain, and also ordered CBC and BMP to check blood sugar and check for anemia. Win Mejia MD Patient calls to update provider on symptoms since being seen in 11/12/2022. Patient continues to have diarrhea approximately twice daily (for 8 days), runny nose, sore throat, cough non-productive, sneezing, cold chills, body aches. Afebrile. Patient seen 11/12/2022 for Viral URI and tested negative for flu, rsv, and covid. Directions from were for supportive care for cold symptoms. Any worsening follow up with PCP or ER. Patient reports symptoms are persistent not worse. Patient asking if provider thinks she should go back for evaluation and requests a call back before provider office leaves this evening. Call back number is [phone]. documented in this encounter [facility] 11-15-2022 Miscellaneous Notes Addended by: TETE ROMERO on: 11/15/2022 02:54 PM Modules accepted: Orders Order filed. Tete Romero APRN.CNP Addended by: ELIDA OSEI LPN on: 11/15/2022 01:41 PM Modules accepted: Orders Patient requesting to have pelvic ultrasound ordered as she feels the cramping and spotting is not normal for her. Patient will call back to schedule once she has transportation Left detailed message on voicemail. Kristi Cummins RN Please let the patient know that light spotting can occur with the Depo, so it is nothing to be concerned about at this point. If the bleeding would become heavier or she is having severe pelvic pain to reach back out to the office and we could order a pelvic ultrasound for her at that point. Tete Romero APRN.CNP Patient had depo provera injection on 10/14/2022 and called stating that she has had bright red spotting that she notices when wipes after using restroom X 4 days. Is c/o menstrual like cramping. Denies dysuria. Patient stated that she has not had spotting for over a year and is concerned. Has been getting depo injections since 2017. documented in this encounter [facility] 11-15-2022 Note Patient Outreach (AC CC) ANGELICA ANDUJAR ([id number]) 1980 F Date Time Provider Department 11/15/22 [facility] During your visit today, we recorded the following information about you: Aby De Jesus 11/15/2022 11:39 AM Signed POPULATION [facility] NAVIGATION OUTREACH Action/FYI Left 2nd Patient Identified by Name and : NO Outreach Outcome/Action Unable to reach patient: Left message Did you use a PCP flex slot to schedule this appointment? No Reason for Outreach Care Gap or Scheduling/Wellness visits Payer: Payor: [facility] / Plan: [facility] COMMUNITY [employer]AN MEDICAID OF [place] / Product Type: Medicaid / Care Gap Reviewed:: Specialty Scheduling Reminder: Reminder note to check Health Maintenance for items below Health Maintenance items due: PNEUMOCOCCAL(1 - PCV) Never done HEPATITIS B(2 of 3 - 19+ 3-dose series) due on 04/16/2011 COVID-19 VACCINE(2 - Pfizer series) due on 09/15/2021 INFLUENZA(1) due on 05/06/2022 MAMMOGRAM due on 08/19/2022 DEPRESSION ASSESSMENT Never done Navigation Signature: Aby De Jesus November 15, 2022 11:39 AM Allergies As of Date: 11/15/2022 Noted Allergy Reaction BENZALKONIUM CHLORIDE 09/08/2012 14 - Other: See Comments Comments: Skin irritations CLINDAMYCIN 03/27/2018 8 - GI Upset DOXYCYCLINE 12/13/2012 8 - GI Upset Comments: stomach cramps FLAGYL (METRONIDAZOLE) 04/11/2018 4 - Hives HAND CONTENT DEVELOPMENT MANAGER (ETHYL ALCOHOL (SK*11/04/2009 2 - Rash Comments: PT HAS SENSITIVE SKIN. O.K. FOR MEDICAL PROFESSIONAL TO USE HAND CONTENT DEVELOPMENT MANAGER AND THEN TOUCH HER, BUT SHE HERSELF DOES NOT USE IT. IODINE 02/18/2011 2 - Rash LATEX, NATURAL RUBBER 03/17/2018 2 - Rash Comments: Local itching with contact and rash [place] 12/07/2017 5 - Intolerance Comments: Sore throat MELOXICAM 06/12/2018 16 - Unknown MORPHINE 03/02/2011 9 - Itching PENICILLIN 06/18/2016 16 - Unknown PREDNISONE 08/26/2012 14 - Other: See Comments Comments: Moodiness, restlessness, states feels like crap all over . SINGULAIR (MONTELUKAST) 12/07/2017 16 - Unknown Comments: Possible rash ZOFRAN (ONDANSETRON HCL (PF)) 03/02/2011 14 - Other: See Comments Comments: Zofran causes cramping and constipation Date Reviewed: 11/12/2022 Reviewed by: Azra Elias LPN - Fully Assessed Prescriptions as of 11/15/2022 - triamcinolone (KENALOG) 0.025 % cream Apply 1 application to affected area twice daily. - dextromethorphan-guaiFENesin (ROBITUSSIN COUGH-CHEST DAVID DM) 5-50 mg/5 mL liqd Take 10 mL by mouth every 6 hours as needed (Cough) for up to 10 days. - albuterol HFA (PROVENTIL HFA, VENTOLIN HFA) 90 mcg/actuation inhaler Inhale 2 Puffs as instructed every 6 hours as needed for wheezing/shortness of breath. - beclomethasone (QVAR REDIHALER) 80 mcg/actuation inhaler Inhale 2 Puffs as instructed twice daily. - miconazole (MONISTAT 7) 2 % vaginal cream Use 1 Applicator vaginally daily at bedtime. - medroxyPROGESTERone (DEPO-PROVERA) 150 mg/mL injection use as directed intramuscularly EVERY 12 WEEKS - propranolol (INDERAL) 10 mg tablet TAKE 1 TABLET BY MOUTH THREE TIMES A DAY IF TREMORS PERSIST, IF NOT, MAY TRY TO WEAN DOWN DAILY DOSE - multivitamin with folic acid (THEREDE MULTIVITAMIN) 400 mcg Take 1 tablet by mouth once daily. - lactobacillus rhamnosus ([facility] [employer] [facility]) 10 billion cell -200 mg capsule Take 1 capsule by mouth once daily. - SUMAtriptan (IMITREX) 50 mg tablet Take one tablet at onset of headache, may repeat in two hours if needed. No more than two tablets in 24 hours - naproxen (NAPROSYN) 500 mg tablet Take 1 tablet by mouth twice daily with meals. Takes as needed - sodium chloride (SALINE MIST) 0.65 % nasal spray Use 1 [place] in the nose as needed for cold/allergy symptoms. - sucralfate (CARAFATE) 1 gram tablet Take 1 tablet by mouth before meals and at bedtime. - carbamide peroxide (DEBROX) 6.5 % otic solution Use 5 Drops in both ears twice daily. - ascorbic acid, vitamin C, (VITAMIN C) 500 mg tablet Take 1 tablet by mouth once daily. - Cholecalciferol, Vitamin D3, 50 mcg (2,000 unit) cap Take 2 capsules by mouth once daily. - acetaminophen (TYLENOL EXTRA STRENGTH) 500 mg tablet Take 1 tablet by mouth every 6 hours as needed for pain for up to 60 doses. - nicotine (NICODERM) 21 mg/24 hr Apply 1 Patch as directed every 24 hours. - Nicotine Polacrilex [address] 1 Lozenge between cheek and gum as needed. - diclofenac (VOLTAREN ARTHRITIS PAIN) 1 % topical gel Apply 2 g to affected area four times daily. - cyclobenzaprine (FLEXERIL) 10 mg tablet Take 1 tablet by mouth three times daily as needed for muscle spasm. - fluticasone (FLONASE) 50 mcg/actuation nasal spray Use 2 Sprays in each nostril once daily. Rinse mouth after use. - loratadine (CLARITIN) 10 mg tablet Take 1 tablet by mouth once daily. - pantoprazole (PROT (more content not included)... [facility] 11-15-2022 Note HNO ID: [id number] Author: Aby De Jesus Service: ? Author Type: ? Type: Progress Notes Filed: 11/15/2022 11:39 AM Note Text: POPULATION HEALTH NAVIGATION OUTREACH Action/FYI Left 2nd vm Patient Identified by Name and : NO Outreach Outcome/Action Unable to reach patient: Left message Did you use a PCP flex slot to schedule this appointment? No Reason for Outreach Care Gap or Scheduling/Wellness visits Payer: Payor: [facility] / Plan: [facility] COMMUNITY [employer] MEDICAID OF [place] / Product Type: Medicaid / Care Gap Reviewed:: Specialty Scheduling Reminder: Reminder note to check Health Maintenance for items below Health Maintenance items due: PNEUMOCOCCAL(1 - PCV) Never done HEPATITIS B(2 of 3 - 19+ 3-dose series) due on 04/16/2011 COVID-19 VACCINE(2 - Pfizer series) due on 09/15/2021 INFLUENZA(1) due on 05/06/2022 MAMMOGRAM due on 08/19/2022 DEPRESSION ASSESSMENT Never done Navigation Signature: Ayb De Jesus November 15, 2022 11:39 AM [facility] 11-15-2022 History of Present illness Narrative POPULATION HEALTH NAVIGATION OUTREACH Action/FYI Left 2nd Patient Identified by Name and : NO Outreach Outcome/Action Unable to reach patient: Left message Did you use a PCP flex slot to schedule this appointment? No Reason for Outreach Care Gap or Scheduling/Wellness visits Payer: Payor: [facility] / Plan: [facility] COMMUNITY PLAN MEDICAID [facility] / Product Type: Medicaid / Care Gap Reviewed:: Specialty Scheduling Reminder: Reminder note to check Health Maintenance for items below Health Maintenance items due: PNEUMOCOCCAL(1 - PCV) Never done HEPATITIS B(2 of 3 - 19+ 3-dose series) due on 04/16/2011 COVID-19 VACCINE(2 - Pfizer series) due on 09/15/2021 INFLUENZA(1) due on 05/06/2022 MAMMOGRAM due on 08/19/2022 DEPRESSION ASSESSMENT Never done Navigation Signature: Aby De Jesus November 15, 2022 11:39 AM documented in this encounter [facility] 11-13-2022 Miscellaneous Notes Patient has called in and has been notified of results and msg. Leatha Peñaloza PSS 11/13/2022 Please notify of negative flu, rsv, and covid test. Continue comfort measures for symptoms as you would for a cold. Any worsening symptoms follow up with PCP or ER. Geovanna Carmichael APRN.CNP documented in this encounter [facility] 11-12-2022 Note HNO ID: [id number] Author: Dorys Martins APRN.PARK MAINTAINER Service: ? Author Type: Nurse Practitioner Type: Progress Notes Filed: 11/12/2022 4:02 PM Note Text: Subjective Cough Associated symptoms include chills and sore throat. Pertinent negatives include no chest pain, no shortness of breath and no wheezing. Angelica Andujar is a 42 year old female who presents with 5 days of cough, congestion, sore throat, headache, runny nose, sneezing. Has had some friends who have been sick recently. She has been taking Naproxen for her symptoms. Was seen by PCP 2 days ago for same and diagnosed with viral URI. She is here today requesting COVID and strep testing. Also notes worsening of eczema on bilateral hands. Has used topical steroid in the past but is currently out of medication. Review of Systems Constitutional: Positive for chills and malaise/fatigue. Negative for fever. HENT: Positive for congestion and sore throat. Respiratory: Positive for cough. Negative for shortness of breath and wheezing. Cardiovascular: Negative for chest pain. Gastrointestinal: Positive for diarrhea. Negative for nausea and vomiting. Skin: Positive for itching and rash. BP 118/82 Pulse 110 Temp 36.2 ?C (97.2 ?F) (Tympanic) Resp 18 Wt 104.6 kg (230 lb 9.6 oz) LMP (LMP Unknown) SpO2 95% BMI 36.12 kg/m? PAST MEDICAL HISTORY Diagnosis Date 11/2009 Anxiety Arthritis Asthma COPD (chronic obstructive pulmonary disease) (HCC) Depression Obesity (BMI 30.0-34.9) CHARLES (obstructive sleep apnea) Recurrent UTI Seasonal allergies STD (sexually transmitted disease) Tobacco use disorder 05/18/2021 PAST SURGICAL HISTORY Procedure Laterality Date COLONOSCOPY W/BIOPSY SINGLE/MULTIPLE 03/02/11 ESOPHAGOGASTRODUODENOSCOPY TRANSORAL DIAGNOSTIC 11/14/2012 EGD ESOPHAGOGASTRODUODENOSCOPY TRANSORAL DIAGNOSTIC 06/02/2020 EGD MED INC ALL EX DRUG 11/2009 PAST SURGICAL HISTORY OF WISDOM TEETH ALLERGIES Benzalkonium Chloride; Clindamycin; Doxycycline; Flagyl [Metronidazole]; Hand Sales Assistant Institutional Sales [Ethyl Alcohol (Skin Cleanser)]; Iodine; Latex, Natural Rubber; [place]; Meloxicam; Morphine; Penicillin; Prednisone; Singulair [Montelukast]; and Zofran [Ondansetron Hcl (Pf)] MEDICATIONS dextromethorphan-guaiFENesin (ROBITUSSIN COUGH-CHEST DAVID DM) 5-50 mg/5 mL liqdTake 10 mL by mouth every 6 hours as needed (Cough) for up to 10 days.Disp: 236 mLRfl: 1 albuterol HFA (PROVENTIL HFA, VENTOLIN HFA) 90 mcg/actuation inhalerInhale 2 Puffs as instructed every 6 hours as needed for wheezing/shortness of breath.Disp: 18 gRfl: 3 beclomethasone (QVAR REDIHALER) 80 mcg/actuation inhalerInhale 2 Puffs as instructed twice daily.Disp: 1 EachRfl: 5 miconazole (MONISTAT 7) 2 % vaginal creamUse 1 Applicator vaginally daily at bedtime.Disp: 45 gRfl: 0 medroxyPROGESTERone (DEPO-PROVERA) 150 mg/mL injectionuse as directed intramuscularly EVERY 12 WEEKSDisp: 1 mLRfl: 4 propranolol (INDERAL) 10 mg tabletTAKE 1 TABLET BY MOUTH THREE TIMES A DAY IF TREMORS PERSIST, IF NOT, MAY TRY TO WEAN DOWN DAILY DOSEDisp: 84 tabletRfl: 5 multivitamin with folic acid ([facility] MULTIVITAMIN) 400 mcgTake 1 tablet by mouth once daily.Disp: 30 tabletRfl: 11 lactobacillus rhamnosus ([facility] [employer] [facility]) 10 billion cell -200 mg capsuleTake 1 capsule by mouth once daily.Disp: 30 capsuleRfl: 11 SUMAtriptan (IMITREX) 50 mg tabletTake one tablet at onset of headache, may repeat in two hours if needed. No more than two tablets in 24 hoursDisp: 6 tabletRfl: 1 naproxen (NAPROSYN) 500 mg tabletTake 1 tablet by mouth twice daily with meals. Takes as neededDisp: 60 tabletRfl: 5 sodium chloride (SALINE MIST) 0.65 % nasal sprayUse 1 [place] in the nose as needed for cold/allergy symptoms.Disp: 44 mLRfl: 0 sucralfate (CARAFATE) 1 gram tabletTake 1 tablet by mouth before meals and at bedtime.Disp: 120 tabletRfl: 1 carbamide peroxide (DEBROX) 6.5 % otic solutionUse 5 Drops in both ears twice daily.Disp: 15 mLRfl: 0 Cholecalciferol, Vitamin D3, 50 mcg (2,000 unit) capTake 2 capsules by mouth once daily.Disp: 56 capsuleRfl: 11 acetaminophen (TYLENOL EXTRA STRENGTH) 500 mg tabletTake 1 tablet by mouth every 6 hours as needed for pain for up to 60 doses.Disp: 60 tabletRfl: 3 Nicotine Polacrilex [address] 1 Lozenge between cheek and gum as needed.Disp: 108 LozengeRfl: 3 diclofenac (VOLTAREN ARTHRITIS PAIN) 1 % topical gelApply 2 g to affected area four times daily.Disp: 50 gRfl: 0 cyclobenzaprine (FLEXERIL) 10 mg tabletTake 1 tablet by mouth three times daily as needed for muscle spasm.Disp: 18 tabletRfl: 0 fluticasone (FLONASE) 50 mcg/actuation nasal sprayUse 2 Sprays in each nostril once daily. Rinse mouth after use.Disp: 1 EachRfl: 0 loratadine (CLARITIN) 10 mg tabletTake 1 tablet by mouth once daily.Disp: 28 tabletRfl: [address] (PROTONIX) 40 mg tabletTAKE 1 TABLET BY MOUTH DAILYDisp: 30 (more content not included)... [facility] 11-12-2022 Instructions Dorys Martins APRN.PARK MAINTAINER - 11/12/2022 3:54 PM EST ASSESSMENT/PLAN: 1. Viral URI with cough - ICD9: 465.9, ICD10: J06.9 (primary diagnosis) - Discussed viral etiology and rationale for treatment. - Symptomatic treatment with prn analgesia - Supportive care with fluids and rest - COVID WITH FLUA+B, ROUTINE 2. Sore throat - ICD9: 462, ICD10: J02.9 - suspect viral - Alere Strep Test negative, no culture pending - Discussed supportive care treatment with fluids, rest and analgesia. - STREP A MOLECULAR (POC) 3. Eczema, unspecified type - ICD9: 692.9, ICD10: L30.9 - Topical steriod tx with Rx for steriod cream/ointment- see orders - discussed skin care of rash - follow up if symptoms persist or worsen. - TRIAMCINOLONE ACETONIDE 0.025 % TOPICAL CREAM - Follow-up with your PCP in 3-5 days if symptoms have not improved or sooner if symptoms worsen - Discussed red flags and need for immediate medical evaluation if any occur. - Discussed supportive care treatment with fluids, rest and analgesia. - Discussed expected course of illness Dorys Martins APRN.JOSE ROBERTO documented in this encounter [facility] 11-12-2022 History of Present illness Narrative Images from the original note were not included. Subjective Cough Associated symptoms include chills and sore throat. Pertinent negatives include no chest pain, no shortness of breath and no wheezing. Angelica Andujar is a 42 year old female who presents with 5 days of cough, congestion, sore throat, headache, runny nose, sneezing. Has had some friends who have been sick recently. She has been taking Naproxen for her symptoms. Was seen by PCP 2 days ago for same and diagnosed with viral URI. She is here today requesting COVID and strep testing. Also notes worsening of eczema on bilateral hands. Has used topical steroid in the past but is currently out of medication. Review of Systems Constitutional: Positive for chills and malaise/fatigue. Negative for fever. HENT: Positive for congestion and sore throat. Respiratory: Positive for cough. Negative for shortness of breath and wheezing. Cardiovascular: Negative for chest pain. Gastrointestinal: Positive for diarrhea. Negative for nausea and vomiting. Skin: Positive for itching and rash. BP 118/82 Pulse 110 Temp 36.2 C (97.2 F) (Tympanic) Resp 18 Wt 104.6 kg (230 lb 9.6 oz) LMP (LMP Unknown) SpO2 95% BMI 36.12 kg/m PAST MEDICAL HISTORY Diagnosis Date 11/2009 Anxiety Arthritis Asthma COPD (chronic obstructive pulmonary disease) (HCC) Depression Obesity (BMI 30.0-34.9) CHARLES (obstructive sleep apnea) Recurrent UTI Seasonal allergies STD (sexually transmitted disease) Tobacco use disorder 05/18/2021 PAST SURGICAL HISTORY Procedure Laterality Date COLONOSCOPY W/BIOPSY SINGLE/MULTIPLE 03/02/11 ESOPHAGOGASTRODUODENOSCOPY TRANSORAL DIAGNOSTIC 11/14/2012 EGD ESOPHAGOGASTRODUODENOSCOPY TRANSORAL DIAGNOSTIC 06/02/2020 EGD MED INC ALL EX DRUG 11/2009 PAST SURGICAL HISTORY OF WISDOM TEETH ALLERGIES Benzalkonium Chloride; Clindamycin; Doxycycline; Flagyl [Metronidazole]; Hand Sales Assistant Institutional Sales [Ethyl Alcohol (Skin Cleanser)]; Iodine; Latex, Natural Rubber; [place]; Meloxicam; Morphine; Penicillin; Prednisone; Singulair [Montelukast]; and Zofran [Ondansetron Hcl (Pf)] MEDICATIONS dextromethorphan-guaiFENesin (ROBITUSSIN COUGH-CHEST DAVID DM) 5-50 mg/5 mL liqd^Take 10 mL by mouth every 6 hours as needed (Cough) for up to 10 days.^Disp: 236 mL^Rfl: 1 albuterol HFA (PROVENTIL HFA, VENTOLIN HFA) 90 mcg/actuation inhaler^Inhale 2 Puffs as instructed every 6 hours as needed for wheezing/shortness of breath.^Disp: 18 g^Rfl: 3 beclomethasone (QVAR REDIHALER) 80 mcg/actuation inhaler^Inhale 2 Puffs as instructed twice daily.^Disp: 1 Each^Rfl: 5 miconazole (MONISTAT 7) 2 % vaginal cream^Use 1 Applicator vaginally daily at bedtime.^Disp: 45 g^Rfl: 0 medroxyPROGESTERone (DEPO-PROVERA) 150 mg/mL injection^use as directed intramuscularly EVERY 12 WEEKS^Disp: 1 mL^Rfl: 4 propranolol (INDERAL) 10 mg tablet^TAKE 1 TABLET BY MOUTH THREE TIMES A DAY IF TREMORS PERSIST, IF NOT, MAY TRY TO WEAN DOWN DAILY DOSE^Disp: 84 tablet^Rfl: 5 multivitamin with folic acid (THEREMS MULTIVITAMIN) 400 mcg^Take 1 tablet by mouth once daily.^Disp: 30 tablet^Rfl: 11 lactobacillus rhamnosus ([facility] [employer]) 10 billion cell -200 mg capsule^Take 1 capsule by mouth once daily.^Disp: 30 capsule^Rfl: 11 SUMAtriptan (IMITREX) 50 mg tablet^Take one tablet at onset of headache, may repeat in two hours if needed. No more than two tablets in 24 hours^Disp: 6 tablet^Rfl: 1 naproxen (NAPROSYN) 500 mg tablet^Take 1 tablet by mouth twice daily with meals. Takes as needed^Disp: 60 tablet^Rfl: 5 sodium chloride (SALINE MIST) 0.65 % nasal spray^Use 1 [place] in the nose as needed for cold/allergy symptoms.^Disp: 44 mL^Rfl: 0 sucralfate (CARAFATE) 1 gram tablet^Take 1 tablet by mouth before meals and at bedtime.^Disp: 120 tablet^Rfl: 1 carbamide peroxide (DEBROX) 6.5 % otic solution^Use 5 Drops in both ears twice daily.^Disp: 15 mL^Rfl: 0 Cholecalciferol, Vitamin D3, 50 mcg (2,000 unit) cap^Take 2 capsules by mouth once daily.^Disp: 56 capsule^Rfl: 11 acetaminophen (TYLENOL EXTRA STRENGTH) 500 mg tablet^Take 1 tablet by mouth every 6 hours as needed for pain for up to 60 doses.^Disp: 60 tablet^Rfl: 3 Nicotine Polacrilex 4 mg lozenge^Place 1 Lozenge between cheek and gum as needed.^Disp: 108 Lozenge^Rfl: 3 diclofenac (VOLTAREN ARTHRITIS PAIN) 1 % topical gel^Apply 2 g to affected area four times daily.^Disp: 50 g^Rfl: 0 cyclobenzaprine (FLEXERIL) 10 mg tablet^Take 1 tablet by mouth three times daily as needed for muscle spasm.^Disp: 18 tablet^Rfl: 0 fluticasone (FLONASE) 50 mcg/actuation nasal spray^Use 2 Sprays in each nostril once daily. Rinse mouth after use.^Disp: 1 Each^Rfl: 0 loratadine (CLARITIN) 10 mg tablet^Take 1 tablet by mouth once daily.^Disp: 28 tablet^Rfl: [address] (PROTONIX) 40 mg tablet^TAKE 1 TABLET BY MOUTH DAILY^Disp: 30 tablet^Rfl: 11 promethazine (PHENERGAN) 25 mg tablet^take 1 tablet by mouth three times a day if needed for nausea and vomiting^Disp: 60 tablet^Rfl: 3 Foot Care Products (GEL BUNION CUSHION) pads^1 Device once daily. Apply pad to area daily as needed^Disp: 14 Each^Rfl: 2 multivitamin tablet^Take 1 tablet by mouth once daily.^Disp: 30 tablet^Rfl: 11 lactobacillus acidophilus 100 mg (1 billion cell) cap(s)^Take 1 capsule by mouth once daily.^Disp: 30 capsule^Rfl: 11 lamoTRIgine orally disintegrating (LAMICTAL ODT) 25 mg disintegrating tablet^Take 25 mg by mouth once daily. ^Disp: ^Rfl: cariprazine (VRAYLAR) 3 mg capsule^Take by mouth.^Disp: ^Rfl: benztropine (COGENTIN) 0.5 mg tablet^Take 1 mg by mouth twice daily. Takes once daily- patient chooses alternate^Disp: ^Rfl: triamcinolone (KENALOG) 0.025 % cream^Apply 1 application to affected area twice daily.^Disp: 30 g^Rfl: 0 ascorbic acid, vitamin C, (VITAMIN C) 500 mg tablet^Take 1 tablet by mouth once daily.^Disp: 30 tablet^Rfl: 5 nicotine (NICODERM) 21 mg/24 hr^Apply 1 Patch as directed every 24 hours.^Disp: 30 Patch^Rfl: 3 FAMILY HISTORY Problem Relation Age of Onset Alcohol/Drug Mother Arthritis Mother Asthma Mother Cancer Mother CANCER Hypertension Mother Stroke Mother Cancer Father LUNG CANCER Emphysema Father Asthma Brother Breast Cancer Maternal Aunt Hypertension Brother Social History Tobacco Use Smoking status: Every Day Packs/day: 1.50 Years: 25.00 Pack years: 37.50 Types: Cigarettes Last attempt to quit: 03/09/2021 Years since quittin.6 Smokeless tobacco: Never Vaping Use Vaping Use: Never used Substance Use Topics Alcohol use: Not Currently Comment: Quit 12/2021 Drug use: No Objective Physical Exam Vitals and nursing note reviewed. Constitutional: General: She is not in acute distress. Appearance: She is obese. She is not toxic-appearing. HENT: Right Ear: Tympanic membrane, ear canal and external ear normal. Left Ear: Tympanic membrane, ear canal and external ear normal. Mouth/Throat: Mouth: Mucous membranes are moist. Pharynx: Oropharynx is clear. Uvula midline. No oropharyngeal exudate or posterior oropharyngeal erythema. Cardiovascular: Rate and Rhythm: Normal rate and regular rhythm. Heart sounds: Normal heart sounds. Pulmonary: Effort: Pulmonary effort is normal. No respiratory distress. Breath sounds: Normal breath sounds. No wheezing or rales. Musculoskeletal: Cervical back: Neck supple. Lymphadenopathy: Cervical: No cervical adenopathy. Skin: General: Skin is warm and dry. Findings: No erythema or rash. Neurological: Mental Status: She is alert. ASSESSMENT/PLAN: 1. Viral URI with cough - ICD9: 465.9, ICD10: J06.9 (primary diagnosis) - Discussed viral etiology and rationale for treatment. - Symptomatic treatment with prn analgesia - Supportive care with fluids and rest - COVID WITH FLUA+B, ROUTINE 2. Sore throat - ICD9: 462, ICD10: J02.9 - suspect viral - Alere Strep Test negative, no culture pending - Discussed supportive care treatment with fluids, rest and analgesia. - STREP A MOLECULAR (POC) 3. Eczema, unspecified type - ICD9: 692.9, ICD10: L30.9 - Topical steriod tx with Rx for steriod cream/ointment- see orders - discussed skin care of rash - follow up if symptoms persist or worsen. - TRIAMCINOLONE ACETONIDE 0.025 % TOPICAL CREAM - Follow-up with your PCP in 3-5 days if symptoms have not improved or sooner if symptoms worsen - Discussed red flags and need for immediate medical evaluation if any occur. - Discussed supportive care treatment with fluids, rest and analgesia. - Discussed expected course of illness Dorys Martins APRN.CNP documented in this encounter [facility] 11-11-2022 Miscellaneous Notes The following approved medication requests have been transmitted electronically. Requested Prescriptions Signed Prescriptions Disp Refills dextromethorphan-guaiFENesin (ROBITUSSIN COUGH-CHEST DAVID DM) 5-50 mg/5 mL liqd 236 mL 1 Sig: Take 10 mL by mouth every 6 hours as needed (Cough) for up to 10 days. Authorizing Provider: PRABHA SPRINGER APRN.CNP Patient calls to request prescription for Robitussin be sent to [facility] because [facility] doesn't have it in stock. Pended. Brii Groves RN documented in this encounter [facility] 11-10-2022 Note Patient Outreach (AC CC) ANGELICA ANDUJAR ([id number]) 1980 F Date Time Provider Department 11/10/22 PCP (HISTORICAL) [facility] During your visit today, we recorded the following information about you: Aby De Jesus 11/10/2022 11:19 AM Signed POPULATION HEALTH NAVIGATION OUTREACH Action/FYI Left vm Patient Identified by Name and : NO Outreach Outcome/Action Unable to reach patient: Left message Did you use a PCP flex slot to schedule this appointment? No Reason for Outreach Care Gap or Scheduling/Wellness visits Payer: Payor: [facility] / Plan: [facility] COMMUNITY [facility]AN MEDICAID [facility] / Product Type: Medicaid / Care Gap Reviewed:: Specialty Scheduling Reminder: Reminder note to check Health Maintenance for items below Health Maintenance items due: PNEUMOCOCCAL(1 - PCV) Never done HEPATITIS B(2 of 3 - 19+ 3-dose series) due on 04/16/2011 COVID-19 VACCINE(2 - Pfizer series) due on 09/15/2021 INFLUENZA(1) due on 05/06/2022 MAMMOGRAM due on 08/19/2022 DEPRESSION ASSESSMENT Never done Navigation Signature: Aby De Jesus November 10, 2022 11:19 AM Allergies As of Date: 11/10/2022 Noted Allergy Reaction BENZALKONIUM CHLORIDE 09/08/2012 14 - Other: See Comments Comments: Skin irritations CLINDAMYCIN 03/27/2018 8 - GI Upset DOXYCYCLINE 12/13/2012 8 - GI Upset Comments: stomach cramps FLAGYL (METRONIDAZOLE) 04/11/2018 4 - Hives HAND CONTENT DEVELOPMENT MANAGER (ETHYL ALCOHOL (SK*11/04/2009 2 - Rash Comments: PT HAS SENSITIVE SKIN. O.K. FOR MEDICAL PROFESSIONAL TO USE HAND CONTENT DEVELOPMENT MANAGER AND THEN TOUCH HER, BUT SHE HERSELF DOES NOT USE IT. IODINE 02/18/2011 2 - Rash LATEX, NATURAL RUBBER 03/17/2018 2 - Rash Comments: Local itching with contact and rash [place] 12/07/2017 5 - Intolerance Comments: Sore throat MELOXICAM 06/12/2018 16 - Unknown MORPHINE 03/02/2011 9 - Itching PENICILLIN 06/18/2016 16 - Unknown PREDNISONE 08/26/2012 14 - Other: See Comments Comments: Moodiness, restlessness, states feels like crap all over . SINGULAIR (MONTELUKAST) 12/07/2017 16 - Unknown Comments: Possible rash ZOFRAN (ONDANSETRON HCL (PF)) 03/02/2011 14 - Other: See Comments Comments: Zofran causes cramping and constipation Date Reviewed: 11/10/2022 Reviewed by: Prabha Springer APRN.PARK MAINTAINER - Fully Assessed Prescriptions as of 11/10/2022 - dextromethorphan-guaiFENesin (ROBITUSSIN COUGH-CHEST DAVID DM) 5-50 mg/5 mL liqd Take 10 mL by mouth every 6 hours as needed (Cough) for up to 10 days. - albuterol HFA (PROVENTIL HFA, VENTOLIN HFA) 90 mcg/actuation inhaler Inhale 2 Puffs as instructed every 6 hours as needed for wheezing/shortness of breath. - beclomethasone (QVAR REDIHALER) 80 mcg/actuation inhaler Inhale 2 Puffs as instructed twice daily. - miconazole (MONISTAT 7) 2 % vaginal cream Use 1 Applicator vaginally daily at bedtime. - medroxyPROGESTERone (DEPO-PROVERA) 150 mg/mL injection use as directed intramuscularly EVERY 12 WEEKS - propranolol (INDERAL) 10 mg tablet TAKE 1 TABLET BY MOUTH THREE TIMES A DAY IF TREMORS PERSIST, IF NOT, MAY TRY TO WEAN DOWN DAILY DOSE - multivitamin with folic acid (THEREMS MULTIVITAMIN) 400 mcg Take 1 tablet by mouth once daily. - lactobacillus rhamnosus ([facility] [employer] [facility]) 10 billion cell -200 mg capsule Take 1 capsule by mouth once daily. - SUMAtriptan (IMITREX) 50 mg tablet Take one tablet at onset of headache, may repeat in two hours if needed. No more than two tablets in 24 hours - naproxen (NAPROSYN) 500 mg tablet Take 1 tablet by mouth twice daily with meals. Takes as needed - sodium chloride (SALINE MIST) 0.65 % nasal spray Use 1 [place] in the nose as needed for cold/allergy symptoms. - sucralfate (CARAFATE) 1 gram tablet Take 1 tablet by mouth before meals and at bedtime. - carbamide peroxide (DEBROX) 6.5 % otic solution Use 5 Drops in both ears twice daily. - ascorbic acid, vitamin C, (VITAMIN C) 500 mg tablet Take 1 tablet by mouth once daily. - Cholecalciferol, Vitamin D3, 50 mcg (2,000 unit) cap Take 2 capsules by mouth once daily. - acetaminophen (TYLENOL EXTRA STRENGTH) 500 mg tablet Take 1 tablet by mouth every 6 hours as needed for pain for up to 60 doses. - nicotine (NICODERM) 21 mg/24 hr Apply 1 Patch as directed every 24 hours. - Nicotine Polacrilex [address] 1 Lozenge between cheek and gum as needed. - diclofenac (VOLTAREN ARTHRITIS PAIN) 1 % topical gel Apply 2 g to affected area four times daily. - cyclobenzaprine (FLEXERIL) 10 mg tablet Take 1 tablet by mouth three times daily as needed for muscle spasm. - fluticasone (FLONASE) 50 mcg/actuation nasal spray Use 2 Sprays in each nostril once daily. Rinse mouth after use. - loratadine (CLARITIN) 10 mg tablet Take 1 tablet by mouth once daily. - pantoprazole DR (PROTONIX) 40 mg tablet TAKE 1 TABLET BY MOUTH DAILY - promethazine (PHENERGAN) 25 mg tablet ta (more content not included)... [facility] 11-10-2022 Note HNO ID: [id number] Author: Aby De Jesus Service: ? Author Type: ? Type: Progress Notes Filed: 11/10/2022 11:19 AM Note Text: POPULATION HEALTH NAVIGATION OUTREACH Action/FYI Left vm Patient Identified by Name and : NO Outreach Outcome/Action Unable to reach patient: Left message Did you use a PCP flex slot to schedule this appointment? No Reason for Outreach Care Gap or Scheduling/Wellness visits Payer: Payor: [facility] / Plan: [facility] [employer] MEDICAID OF [place] / Product Type: Medicaid / Care Gap Reviewed:: Specialty Scheduling Reminder: Reminder note to check Health Maintenance for items below Health Maintenance items due: PNEUMOCOCCAL(1 - PCV) Never done HEPATITIS B(2 of 3 - 19+ 3-dose series) due on 04/16/2011 COVID-19 VACCINE(2 - Pfizer series) due on 09/15/2021 INFLUENZA(1) due on 05/06/2022 MAMMOGRAM due on 08/19/2022 DEPRESSION ASSESSMENT Never done Navigation Signature: Aby De Jesus November 10, 2022 11:19 AM [facility] 11-10-2022 History of Present illness Narrative POPULATION HEALTH NAVIGATION OUTREACH Action/FYI Left vm Patient Identified by Name and : NO Outreach Outcome/Action Unable to reach patient: Left message Did you use a PCP flex slot to schedule this appointment? No Reason for Outreach Care Gap or Scheduling/Wellness visits Payer: Payor: [facility] / Plan: [facility] COMMUNITY PLAN MEDICAID [facility] / Product Type: Medicaid / Care Gap Reviewed:: Specialty Scheduling Reminder: Reminder note to check Health Maintenance for items below Health Maintenance items due: PNEUMOCOCCAL(1 - PCV) Never done HEPATITIS B(2 of 3 - 19+ 3-dose series) due on 04/16/2011 COVID-19 VACCINE(2 - Pfizer series) due on 09/15/2021 INFLUENZA(1) due on 05/06/2022 MAMMOGRAM due on 08/19/2022 DEPRESSION ASSESSMENT Never done Navigation Signature: Aby De Jesus November 10, 2022 11:19 AM documented in this encounter [facility] 11-10-2022 Note HNO ID: [id number] Author: Isi Chin RT(R) Service: Radiology Author Type: Technologist Type: Progress Notes Filed: 11/10/2022 9:21 AM Note Text: Radiology Service Progress Note PATIENT NAME: Angelica Andujar DATE OF SERVICE: November 10, 2022 TIME: 9:09 AM PATIENT IDENTITY VERIFICATION COMPLETED USING TWO (2) IDENTIFIERS: Name and Date of confirmed by patient verbally. FALL SCREENING: Has the patient had 2 falls in the last year or 1 fall with injury or currently using an Ambulatory Assistive Device (Walker, Cane, Wheelchair, Crutches, etc.)? No PATIENT GENDER DATA: Female. status: : No status: NO. PATIENT RELEVANT IMPLANT DATA REVIEWED: Yes RADIOLOGY DEPARTMENT: General X-ray: Exam(s) Completed: Lower Extremity X-Ray(s): Foot, Left and Wt. Bearing PERIPHERAL IV DATA: Not applicable SIGNED BY: RT Gerard(R) November 10, 2022 9:09 AM [facility] 11-10-2022 Note HNO ID: [id number] Author: Prabha Springer APRN.PARK MAINTAINER Service: ? Author Type: Nurse Practitioner Type: Progress Notes Filed: 11/10/2022 8:52 AM Note Text: This is a 42 year old female who presents today with: Patient presents with: Follow Up: ER follow up HISTORY OF PRESENT ILLNESS: Angelica Andujar is a 42 year old female. Patient presents with: Follow Up: ER follow up HOSPITAL/ER FOLLOW UP: Reason for visit: Cold Symptoms Which facility: [facility] ER Date of visit: 2022 Diagnosis: Viral URI Testing done: Covid/Flu and Strep Negative Treatment given: None Current symptoms: Still having on going sore throat with swallowing or cough. Cough is productive, clear mucus. No fever or chills. SOB with ambulation, smoking 1/2 to 1 PPD. Refers she picks up her inhalers tomorrow at pharmacy. Has been using naproxen and tea. Cannot afford cold and cough medications at this time. Just finished azithromycin for tooth infection PAST MEDICAL HISTORY: PAST MEDICAL HISTORY Diagnosis Date 11/2009 Anxiety Arthritis Asthma COPD (chronic obstructive pulmonary disease) (HCC) Depression Obesity (BMI 30.0-34.9) CHARLES (obstructive sleep apnea) Recurrent UTI Seasonal allergies STD (sexually transmitted disease) Tobacco use disorder 05/18/2021 PAST SURGICAL HISTORY Procedure Laterality Date COLONOSCOPY W/BIOPSY SINGLE/MULTIPLE 03/02/11 ESOPHAGOGASTRODUODENOSCOPY TRANSORAL DIAGNOSTIC 11/14/2012 EGD ESOPHAGOGASTRODUODENOSCOPY TRANSORAL DIAGNOSTIC 06/02/2020 EGD MED INC ALL EX DRUG 11/2009 PAST SURGICAL HISTORY OF WISDOM TEETH ALLERGIES Benzalkonium Chloride; Clindamycin; Doxycycline; Flagyl [Metronidazole]; Hand Sales Assistant Institutional Sales [Ethyl Alcohol (Skin Cleanser)]; Iodine; Latex, Natural Rubber; [place]; Meloxicam; Morphine; Penicillin; Prednisone; Singulair [Montelukast]; and Zofran [Ondansetron Hcl (Pf)] MEDICATIONS Current Outpatient Medications Medication Sig azithromycin (ZITHROMAX Z-FRANCISCO) 250 mg tablet Take 2 tablets day one, then, 1 tablet daily until gone. miconazole (MONISTAT 7) 2 % vaginal cream Use 1 Applicator vaginally daily at bedtime. medroxyPROGESTERone (DEPO-PROVERA) 150 mg/mL injection use as directed intramuscularly EVERY 12 WEEKS propranolol (INDERAL) 10 mg tablet TAKE 1 TABLET BY MOUTH THREE TIMES A DAY IF TREMORS PERSIST, IF NOT, MAY TRY TO WEAN DOWN DAILY DOSE multivitamin with folic acid ([facility] MULTIVITAMIN) 400 mcg Take 1 tablet by mouth once daily. lactobacillus rhamnosus ([facility] [employer] [facility]) 10 billion cell -200 mg capsule Take 1 capsule by mouth once daily. SUMAtriptan (IMITREX) 50 mg tablet Take one tablet at onset of headache, may repeat in two hours if needed. No more than two tablets in 24 hours naproxen (NAPROSYN) 500 mg tablet Take 1 tablet by mouth twice daily with meals. Takes as needed sodium chloride (SALINE MIST) 0.65 % nasal spray Use 1 [place] in the nose as needed for cold/allergy symptoms. Dextromethorphan-guaiFENesin (ROBITUSSIN DM) 10-200 mg/5 mL liqd Take 5 mL by mouth every 6 hours as needed. sucralfate (CARAFATE) 1 gram tablet Take 1 tablet by mouth before meals and at bedtime. carbamide peroxide (DEBROX) 6.5 % otic solution Use 5 Drops in both ears twice daily. ascorbic acid, vitamin C, (VITAMIN C) 500 mg tablet Take 1 tablet by mouth once daily. Cholecalciferol, Vitamin D3, 50 mcg (2,000 unit) cap Take 2 capsules by mouth once daily. acetaminophen (TYLENOL EXTRA STRENGTH) 500 mg tablet Take 1 tablet by mouth every 6 hours as needed for pain for up to 60 doses. albuterol HFA (PROVENTIL HFA, VENTOLIN HFA) 90 mcg/actuation inhaler Inhale 2 Puffs as instructed every 6 hours as needed for wheezing/shortness of breath. beclomethasone (QVAR REDIHALER) 80 mcg/actuation inhaler Inhale 2 Puffs as instructed twice daily. (Patient taking differently: Inhale 2 Puffs as instructed twice daily. Takes one puff daily) nicotine (NICODERM) 21 mg/24 hr Apply 1 Patch as directed every 24 hours. Nicotine Polacrilex [address] 1 Lozenge between cheek and gum as needed. diclofenac (VOLTAREN ARTHRITIS PAIN) 1 % topical gel Apply 2 g to affected area four times daily. cyclobenzaprine (FLEXERIL) 10 mg tablet Take 1 tablet by mouth three times daily as needed for muscle spasm. fluticasone (FLONASE) 50 mcg/actuation nasal spray Use 2 Sprays in each nostril once daily. Rinse mouth after use. loratadine (CLARITIN) 10 mg tablet Take 1 tablet by mouth once daily. pantoprazole DR (PROTONIX) 40 mg tablet TAKE 1 TABLET BY MOUTH DAILY promethazine (PHENERGAN) 25 mg tablet take 1 tablet by mouth three times a day if needed for nausea and vomiting Foot Care Products (GEL BUNION CUSHION) pads 1 Device once daily. Apply pad to area daily as needed multivitamin tablet Take 1 tablet by mouth once daily. lactobacillus acidophilus 100 mg (1 billion cell) cap(s) Take 1 capsule by mouth once daily. lamoTR (more content not included)... [facility] 11-10-2022 Miscellaneous Notes Reason for Call: Patient calling with sore throat, cough and nasal congestion since yesterday. Has appointment with provider this morning, but requested to be triaged. Outcome: See PCP within 24 hours. Patient verbalized understanding of and agreement with plan. Reason for Disposition SEVERE (e.g., excruciating) throat pain Answer Assessment - Initial Assessment Questions 1. ONSET: Yesterday afternoon 2. SEVERITY: 04/14 3. STREP EXPOSURE: Unsure 4. VIRAL SYMPTOMS: Runny, congested nose--brownish/calix drainage and clear. Cough is productive. 5. FEVER: Denies. 6. PUS ON THE TONSILS: Has not looked. 7. OTHER SYMPTOMS: Headaches, body aches, chills. Rash on both arms preceded the onset of URI symptoms. + vomiting x 2 in past 24 hours. 8. : LMP: on Depo Protocols used: Sore [id number] documented in this encounter [facility] 11-09-2022 Miscellaneous Notes OK to refill as ordered Win Mejia MD Last OV: 11/04/22 - hospital f/u. Patient has been identified by name and date of : Yes Requested Prescriptions Pending Prescriptions Disp Refills albuterol HFA (PROVENTIL HFA, VENTOLIN HFA) 90 mcg/actuation inhaler 18 g 3 Sig: Inhale 2 Puffs as instructed every 6 hours as needed for wheezing/shortness of breath. beclomethasone (QVAR REDIHALER) 80 mcg/actuation inhaler 1 Each 5 Sig: Inhale 2 Puffs as instructed twice daily. RX INSTRUCTIONS: Patient aware RX will be sent to pharmacy. No need to notify patient. Adrienne Moctezuma LPN documented in this encounter [facility] 11-08-2022 Note HNO ID: [id number] Author: NELY Boateng) Service: Nuclear Medicine Author Type: Technologist Type: Progress Notes Filed: 11/08/2022 7:07 PM Note Text: Radiology Service Progress Note PATIENT NAME: Angelica Andujar DATE OF SERVICE: November 08, 2022 TIME: 7:02 PM PATIENT IDENTITY VERIFICATION COMPLETED USING TWO (2) IDENTIFIERS: Name and Date of confirmed by patient verbally. FALL SCREENING: Has the patient had 2 falls in the last year or 1 fall with injury or currently using an Ambulatory Assistive Device (Walker, Cane, Wheelchair, Crutches, etc.)? No PATIENT GENDER DATA: Female. status: : No status: NO. PATIENT RELEVANT IMPLANT DATA REVIEWED: Not Applicable RADIOLOGY DEPARTMENT: General X-ray: Exam(s) Completed: Upper Extremity X-Ray(s): Shoulder, AP / TRUE AP left PERIPHERAL IV DATA: Not applicable SIGNED BY: RT Kilo(R) November 08, 2022 7:02 PM [facility] 11-08-2022 Note HNO ID: [id number] Author: Ian Ying MD Service: ? Author Type: Physician Type: Progress Notes Filed: 11/08/2022 7:27 PM Note Text: Patient presents with: Ankle Injury: left x 2 weeks, right arm pain x 1 year, left leg pain HPI: Presents for multiple orthopedic concerns. Her most pressing issue is left arm pain. Left arm pain: Duration: hard to say. Location: left shoulder blade to wrist Character: sharp in the wrist with use, stabbing in the shoulder blade Radiation: shoulder blade to the upper arm Aggravating: grabbing with the wrist, raising the shoulder above shoulder level Relieving: Pain relievers: naproxen 500mg twice a day as needed. Associated: recalled injury Pertinent negatives: Denies numbness, weakness MEDICATIONS: miconazole (MONISTAT 7) 2 % vaginal creamUse 1 Applicator vaginally daily at bedtime.Disp: 45 gRfl: 0 medroxyPROGESTERone (DEPO-PROVERA) 150 mg/mL injectionuse as directed intramuscularly EVERY 12 WEEKSDisp: 1 mLRfl: 4 propranolol (INDERAL) 10 mg tabletTAKE 1 TABLET BY MOUTH THREE TIMES A DAY IF TREMORS PERSIST, IF NOT, MAY TRY TO WEAN DOWN DAILY DOSEDisp: 84 tabletRfl: 5 multivitamin with folic acid ([facility] MULTIVITAMIN) 400 mcgTake 1 tablet by mouth once daily.Disp: 30 tabletRfl: 11 lactobacillus rhamnosus ([facility] [employer] [facility]) 10 billion cell -200 mg capsuleTake 1 capsule by mouth once daily.Disp: 30 capsuleRfl: 11 SUMAtriptan (IMITREX) 50 mg tabletTake one tablet at onset of headache, may repeat in two hours if needed. No more than two tablets in 24 hoursDisp: 6 tabletRfl: 1 naproxen (NAPROSYN) 500 mg tabletTake 1 tablet by mouth twice daily with meals. Takes as neededDisp: 60 tabletRfl: 5 sodium chloride (SALINE MIST) 0.65 % nasal sprayUse 1 [place] in the nose as needed for cold/allergy symptoms.Disp: 44 mLRfl: 0 Dextromethorphan-guaiFENesin (ROBITUSSIN DM) 10-200 mg/5 mL liqdTake 5 mL by mouth every 6 hours as needed.Disp: 118 mLRfl: 0 sucralfate (CARAFATE) 1 gram tabletTake 1 tablet by mouth before meals and at bedtime.Disp: 120 tabletRfl: 1 carbamide peroxide (DEBROX) 6.5 % otic solutionUse 5 Drops in both ears twice daily.Disp: 15 mLRfl: 0 ascorbic acid, vitamin C, (VITAMIN C) 500 mg tabletTake 1 tablet by mouth once daily.Disp: 30 tabletRfl: 5 Cholecalciferol, Vitamin D3, 50 mcg (2,000 unit) capTake 2 capsules by mouth once daily.Disp: 56 capsuleRfl: 11 acetaminophen (TYLENOL EXTRA STRENGTH) 500 mg tabletTake 1 tablet by mouth every 6 hours as needed for pain for up to 60 doses.Disp: 60 tabletRfl: 3 albuterol HFA (PROVENTIL HFA, VENTOLIN HFA) 90 mcg/actuation inhalerInhale 2 Puffs as instructed every 6 hours as needed for wheezing/shortness of breath.Disp: 18 gRfl: 3 beclomethasone (QVAR REDIHALER) 80 mcg/actuation inhalerInhale 2 Puffs as instructed twice daily.Disp: 30 EachRfl: 5 (Patient taking differently: Inhale 2 Puffs as instructed twice daily. Takes one puff daily) Nicotine Polacrilex [address] 1 Lozenge between cheek and gum as needed.Disp: 108 LozengeRfl: 3 diclofenac (VOLTAREN ARTHRITIS PAIN) 1 % topical gelApply 2 g to affected area four times daily.Disp: 50 gRfl: 0 cyclobenzaprine (FLEXERIL) 10 mg tabletTake 1 tablet by mouth three times daily as needed for muscle spasm.Disp: 18 tabletRfl: 0 fluticasone (FLONASE) 50 mcg/actuation nasal sprayUse 2 Sprays in each nostril once daily. Rinse mouth after use.Disp: 1 EachRfl: 0 loratadine (CLARITIN) 10 mg tabletTake 1 tablet by mouth once daily.Disp: 28 tabletRfl: [address] (PROTONIX) 40 mg tabletTAKE 1 TABLET BY MOUTH DAILYDisp: 30 tabletRfl: 11 promethazine (PHENERGAN) 25 mg tablettake 1 tablet by mouth three times a day if needed for nausea and vomitingDisp: 60 tabletRfl: 3 Foot Care Products (GEL BUNION CUSHION) pads1 Device once daily. Apply pad to area daily as neededDisp: 14 EachRfl: 2 multivitamin tabletTake 1 tablet by mouth once daily.Disp: 30 tabletRfl: 11 lactobacillus acidophilus 100 mg (1 billion cell) cap(s)Take 1 capsule by mouth once daily.Disp: 30 capsuleRfl: 11 lamoTRIgine orally disintegrating (LAMICTAL ODT) 25 mg disintegrating tabletTake 25 mg by mouth once daily. Disp: Rfl: cariprazine (VRAYLAR) 3 mg capsuleTake by mouth.Disp: Rfl: benztropine (COGENTIN) 0.5 mg tabletTake 1 mg by mouth twice daily. Takes once daily- patient chooses alternateDisp: Rfl: azithromycin (ZITHROMAX Z-FRANCISCO) 250 mg tabletTake 2 tablets day one, then, 1 tablet daily until gone.Disp: 6 tabletRfl: 0 (Patient not taking: Reported on 11/08/2022) nicotine (NICODERM) 21 mg/24 hrApply 1 Patch as directed every 24 hours.Disp: 30 PatchRfl: 3 ALLERGIES: ALLERGIES Allergen Reactions Benzalkonium Chlori* Other: See Comments Skin irritations Clindamycin GI Upset Doxycycline GI Upset stomach cramps Flagyl [Metronidazo* Hives Hand Sales Assistant Institutional Sales [Eth* Rash PT HAS SENSITIVE SKIN. O.K. FOR MEDICAL PROFESSIONAL T (more content not included)... [facility] 11-08-2022 History of Present illness Narrative Patient presents with: Ankle Injury: left x 2 weeks, right arm pain x 1 year, left leg pain HPI: Presents for multiple orthopedic concerns. Her most pressing issue is left arm pain. Left arm pain: Duration: hard to say. Location: left shoulder blade to wrist Character: sharp in the wrist with use, stabbing in the shoulder blade Radiation: shoulder blade to the upper arm Aggravating: grabbing with the wrist, raising the shoulder above shoulder level Relieving: Pain relievers: naproxen 500mg twice a day as needed. Associated: recalled injury Pertinent negatives: Denies numbness, weakness MEDICATIONS: miconazole (MONISTAT 7) 2 % vaginal cream^Use 1 Applicator vaginally daily at bedtime.^Disp: 45 g^Rfl: 0 medroxyPROGESTERone (DEPO-PROVERA) 150 mg/mL injection^use as directed intramuscularly EVERY 12 WEEKS^Disp: 1 mL^Rfl: 4 propranolol (INDERAL) 10 mg tablet^TAKE 1 TABLET BY MOUTH THREE TIMES A DAY IF TREMORS PERSIST, IF NOT, MAY TRY TO WEAN DOWN DAILY DOSE^Disp: 84 tablet^Rfl: 5 multivitamin with folic acid ([facility] MULTIVITAMIN) 400 mcg^Take 1 tablet by mouth once daily.^Disp: 30 tablet^Rfl: 11 lactobacillus rhamnosus ([facility] [employer]) 10 billion cell -200 mg capsule^Take 1 capsule by mouth once daily.^Disp: 30 capsule^Rfl: 11 SUMAtriptan (IMITREX) 50 mg tablet^Take one tablet at onset of headache, may repeat in two hours if needed. No more than two tablets in 24 hours^Disp: 6 tablet^Rfl: 1 naproxen (NAPROSYN) 500 mg tablet^Take 1 tablet by mouth twice daily with meals. Takes as needed^Disp: 60 tablet^Rfl: 5 sodium chloride (SALINE MIST) 0.65 % nasal spray^Use 1 [place] in the nose as needed for cold/allergy symptoms.^Disp: 44 mL^Rfl: 0 Dextromethorphan-guaiFENesin (ROBITUSSIN DM) 10-200 mg/5 mL liqd^Take 5 mL by mouth every 6 hours as needed.^Disp: 118 mL^Rfl: 0 sucralfate (CARAFATE) 1 gram tablet^Take 1 tablet by mouth before meals and at bedtime.^Disp: 120 tablet^Rfl: 1 carbamide peroxide (DEBROX) 6.5 % otic solution^Use 5 Drops in both ears twice daily.^Disp: 15 mL^Rfl: 0 ascorbic acid, vitamin C, (VITAMIN C) 500 mg tablet^Take 1 tablet by mouth once daily.^Disp: 30 tablet^Rfl: 5 Cholecalciferol, Vitamin D3, 50 mcg (2,000 unit) cap^Take 2 capsules by mouth once daily.^Disp: 56 capsule^Rfl: 11 acetaminophen (TYLENOL EXTRA STRENGTH) 500 mg tablet^Take 1 tablet by mouth every 6 hours as needed for pain for up to 60 doses.^Disp: 60 tablet^Rfl: 3 albuterol HFA (PROVENTIL HFA, VENTOLIN HFA) 90 mcg/actuation inhaler^Inhale 2 Puffs as instructed every 6 hours as needed for wheezing/shortness of breath.^Disp: 18 g^Rfl: 3 beclomethasone (QVAR REDIHALER) 80 mcg/actuation inhaler^Inhale 2 Puffs as instructed twice daily.^Disp: 30 Each^Rfl: 5 (Patient taking differently: Inhale 2 Puffs as instructed twice daily. Takes one puff daily) Nicotine Polacrilex 4 mg lozenge^Place 1 Lozenge between cheek and gum as needed.^Disp: 108 Lozenge^Rfl: 3 diclofenac (VOLTAREN ARTHRITIS PAIN) 1 % topical gel^Apply 2 g to affected area four times daily.^Disp: 50 g^Rfl: 0 cyclobenzaprine (FLEXERIL) 10 mg tablet^Take 1 tablet by mouth three times daily as needed for muscle spasm.^Disp: 18 tablet^Rfl: 0 fluticasone (FLONASE) 50 mcg/actuation nasal spray^Use 2 Sprays in each nostril once daily. Rinse mouth after use.^Disp: 1 Each^Rfl: 0 loratadine (CLARITIN) 10 mg tablet^Take 1 tablet by mouth once daily.^Disp: 28 tablet^Rfl: [address] (PROTONIX) 40 mg tablet^TAKE 1 TABLET BY MOUTH DAILY^Disp: 30 tablet^Rfl: 11 promethazine (PHENERGAN) 25 mg tablet^take 1 tablet by mouth three times a day if needed for nausea and vomiting^Disp: 60 tablet^Rfl: 3 Foot Care Products (GEL BUNION CUSHION) pads^1 Device once daily. Apply pad to area daily as needed^Disp: 14 Each^Rfl: 2 multivitamin tablet^Take 1 tablet by mouth once daily.^Disp: 30 tablet^Rfl: 11 lactobacillus acidophilus 100 mg (1 billion cell) cap(s)^Take 1 capsule by mouth once daily.^Disp: 30 capsule^Rfl: 11 lamoTRIgine orally disintegrating (LAMICTAL ODT) 25 mg disintegrating tablet^Take 25 mg by mouth once daily. ^Disp: ^Rfl: cariprazine (VRAYLAR) 3 mg capsule^Take by mouth.^Disp: ^Rfl: benztropine (COGENTIN) 0.5 mg tablet^Take 1 mg by mouth twice daily. Takes once daily- patient chooses alternate^Disp: ^Rfl: azithromycin (ZITHROMAX Z-FRANCISCO) 250 mg tablet^Take 2 tablets day one, then, 1 tablet daily until gone.^Disp: 6 tablet^Rfl: 0 (Patient not taking: Reported on 11/08/2022) nicotine (NICODERM) 21 mg/24 hr^Apply 1 Patch as directed every 24 hours.^Disp: 30 Patch^Rfl: 3 ALLERGIES: ALLERGIES Allergen Reactions Benzalkonium Chlori* Other: See Comments Skin irritations Clindamycin GI Upset Doxycycline GI Upset stomach cramps Flagyl [Metronidazo* Hives Hand Sales Assistant Institutional Sales [Eth* Rash PT HAS SENSITIVE SKIN. O.K. FOR MEDICAL PROFESSIONAL TO USE HAND CONTENT DEVELOPMENT MANAGER AND THEN TOUCH HER, BUT SHE HERSELF DOES NOT USE IT. Iodine Rash Latex, Natural Rubb* Rash Local itching with contact and rash [place] Intolerance Sore throat Meloxicam Unknown Morphine Itching Penicillin Unknown Prednisone Other: See Comments Moodiness, restlessness, states feels like crap all over . Singulair [Monteluk* Unknown Possible rash Zofran [Ondansetron* Other: See Comments Zofran causes cramping and constipation VITALS: BP 132/72 Pulse (!) 122 Temp 36.3 C (97.3 F) Resp 18 Wt 103.9 kg (229 lb) LMP (LMP Unknown) SpO2 97% BMI 35.87 kg/m PHYSICAL EXAM: GEN: pleasant, no acute distress, alert. Poor historian. HEENT: PERRL, EOMI, MMM NECK: supple, no lymphadenopathy, no thyromegaly. tender thoracocervical junction (midline and paraspinal) and rhomboid areas. SHOULDER: left. No deformity or swelling. Palpation of clavicle non-tender, AC joint non-tender, glenohumeral joint uncomfortable, mid scapula tender. ROM: Pain with abduction or flexion above 90 degrees. Impingement test: Positive Left. WRIST: left. No erythema, edema, ecchymosis, or deformity. Full range of motion without pain including flexion, extension, supination, pronation, radial deviation, and ulnar deviation. Nontender distal radius/ulna, carpal and metacarpal bones. HEART: regular rate, regular rhythm, no murmurs LUNGS: clear to auscultation, no wheezes or crackles, no increased WOB ASSESSMENT/PLAN: 1. Acute pain of left shoulder - ICD9: 719.41, ICD10: M25.512 - XR SHOULDER LIMITED 2V AP/TRUE AP LEFT -no acute findings or significant degenerative changes. Suspect multiple issues including cervical degenerative disc disease and glenohumeral joint impingement. Continue naproxen. - CONSULT TO ORTHOPAEDICS Keep ER follow-up with primary care in 2 days. Ian Ying MD documented in this encounter [facility] 11-08-2022 Miscellaneous Notes Keep scheduled appointment. Thank you. Prabha Springer APRN.JOSE ROBERTO Patient calls and states that she has an appointment with Prabha on 11/10/2022. Patient states that she wants to discuss her right arm pain that has been sharp and going on for about a week as well as her left foot pain that has been going on for a week. Patient states that she feels like she has twisted it but did not twist it. Please review and advise, Lilian Marks RN documented in this encounter [facility] 2022 Miscellaneous Notes Reason for Call: Covid Concern Outcome: 24 HR Recommendation. Interim Care Advice given. Patient will go to [facility]. Reason for Disposition [1] HIGH RISK for severe COVID complications (e.g., weak immune system, age > 64 years, obesity with BMI 30 or higher, , chronic lung disease or other chronic medical condition) AND [2] COVID symptoms (e.g., cough, fever) (Exceptions: Already seen by PCP and no new or worsening symptoms.) Answer Assessment - Initial Assessment Questions 1. COVID-19 DIAGNOSIS: no 2. COVID-19 EXPOSURE: around someone with a cold but unknown if friend had covid 3. ONSET: started 4 days ago 4. WORST SYMPTOM: headache, nausea, nasal congestion 5. COUGH: yes; cough is moderate and dry 6. FEVER: no fever 7. RESPIRATORY STATUS: expiratory wheeze 8. [id number]: worse 9. HIGH RISK DISEASE: asthma and COPD 10. VACCINE: one vaccine 2 years ago 11. BOOSTER: no booster 12. : na; patient is on the depo shot 13. OTHER SYMPTOMS: sore throat, body aches, fatigue 14. O2 SATURATION MONITOR: na Protocols used: Coronavirus (COVID-19) Diagnosed or [id number] documented in this encounter [facility] 11-04-2022 Note HNO ID: [id number] Author: Prabha Springer APRN.PARK MAINTAINER Service: ? Author Type: Nurse Practitioner Type: Progress Notes Filed: 11/04/2022 3:26 PM Note Text: This is a 41 year old female who presents today with: No chief complaint on file. HISTORY OF PRESENT ILLNESS: Angelica Andujar is a 41 year old female. No chief complaint on file. HOSPITAL/ER FOLLOW UP: Reason for visit: Dental pain Which facility: [facility] ER Date of visit: 10/31/2022 Diagnosis: Dental Testing done: none Treatment given: Azithromycin, instructed to follow up with dentist in 3-5 days. Current symptoms: Refer that bottom right side/Gums are moisture machine tender and swollen. Finished zpack. Some chills but no fever. Has dental appt next week. PAST MEDICAL HISTORY: PAST MEDICAL HISTORY Diagnosis Date 11/2009 Anxiety Arthritis Asthma COPD (chronic obstructive pulmonary disease) (HCC) Depression Obesity (BMI 30.0-34.9) CHARLES (obstructive sleep apnea) Recurrent UTI Seasonal allergies STD (sexually transmitted disease) Tobacco use disorder 05/18/2021 PAST SURGICAL HISTORY Procedure Laterality Date COLONOSCOPY W/BIOPSY SINGLE/MULTIPLE 03/02/11 ESOPHAGOGASTRODUODENOSCOPY TRANSORAL DIAGNOSTIC 11/14/2012 EGD ESOPHAGOGASTRODUODENOSCOPY TRANSORAL DIAGNOSTIC 06/02/2020 EGD MED INC ALL EX DRUG 11/2009 PAST SURGICAL HISTORY OF WISDOM TEETH ALLERGIES Benzalkonium Chloride; Clindamycin; Doxycycline; Flagyl [Metronidazole]; Hand Sales Assistant Institutional Sales [Ethyl Alcohol (Skin Cleanser)]; Iodine; Latex, Natural Rubber; [place]; Meloxicam; Morphine; Penicillin; Prednisone; Singulair [Montelukast]; and Zofran [Ondansetron Hcl (Pf)] MEDICATIONS Current Outpatient Medications Medication Sig miconazole (MONISTAT 7) 2 % vaginal cream Use 1 Applicator vaginally daily at bedtime. medroxyPROGESTERone (DEPO-PROVERA) 150 mg/mL injection use as directed intramuscularly EVERY 12 WEEKS propranolol (INDERAL) 10 mg tablet TAKE 1 TABLET BY MOUTH THREE TIMES A DAY IF TREMORS PERSIST, IF NOT, MAY TRY TO WEAN DOWN DAILY DOSE multivitamin with folic acid ([facility] MULTIVITAMIN) 400 mcg Take 1 tablet by mouth once daily. lactobacillus rhamnosus ([facility] Yulex [facility]) 10 billion cell -200 mg capsule Take 1 capsule by mouth once daily. SUMAtriptan (IMITREX) 50 mg tablet Take one tablet at onset of headache, may repeat in two hours if needed. No more than two tablets in 24 hours naproxen (NAPROSYN) 500 mg tablet Take 1 tablet by mouth twice daily with meals. Takes as needed sodium chloride (SALINE MIST) 0.65 % nasal spray Use 1 [place] in the nose as needed for cold/allergy symptoms. Dextromethorphan-guaiFENesin (ROBITUSSIN DM) 10-200 mg/5 mL liqd Take 5 mL by mouth every 6 hours as needed. sucralfate (CARAFATE) 1 gram tablet Take 1 tablet by mouth before meals and at bedtime. carbamide peroxide (DEBROX) 6.5 % otic solution Use 5 Drops in both ears twice daily. ascorbic acid, vitamin C, (VITAMIN C) 500 mg tablet Take 1 tablet by mouth once daily. Cholecalciferol, Vitamin D3, 50 mcg (2,000 unit) cap Take 2 capsules by mouth once daily. acetaminophen (TYLENOL EXTRA STRENGTH) 500 mg tablet Take 1 tablet by mouth every 6 hours as needed for pain for up to 60 doses. albuterol HFA (PROVENTIL HFA, VENTOLIN HFA) 90 mcg/actuation inhaler Inhale 2 Puffs as instructed every 6 hours as needed for wheezing/shortness of breath. beclomethasone (QVAR REDIHALER) 80 mcg/actuation inhaler Inhale 2 Puffs as instructed twice daily. (Patient taking differently: Inhale 2 Puffs as instructed twice daily. Takes one puff daily) nicotine (NICODERM) 21 mg/24 hr Apply 1 Patch as directed every 24 hours. Nicotine Polacrilex [address] 1 Lozenge between cheek and gum as needed. diclofenac (VOLTAREN ARTHRITIS PAIN) 1 % topical gel Apply 2 g to affected area four times daily. cyclobenzaprine (FLEXERIL) 10 mg tablet Take 1 tablet by mouth three times daily as needed for muscle spasm. fluticasone (FLONASE) 50 mcg/actuation nasal spray Use 2 Sprays in each nostril once daily. Rinse mouth after use. loratadine (CLARITIN) 10 mg tablet Take 1 tablet by mouth once daily. pantoprazole DR (PROTONIX) 40 mg tablet TAKE 1 TABLET BY MOUTH DAILY promethazine (PHENERGAN) 25 mg tablet take 1 tablet by mouth three times a day if needed for nausea and vomiting Foot Care Products (GEL BUNION CUSHION) pads 1 Device once daily. Apply pad to area daily as needed multivitamin tablet Take 1 tablet by mouth once daily. lactobacillus acidophilus 100 mg (1 billion cell) cap(s) Take 1 capsule by mouth once daily. lamoTRIgine orally disintegrating (LAMICTAL ODT) 25 mg disintegrating tablet Take 25 mg by mouth once daily. cariprazine (VRAYLAR) 3 mg capsule Take by mouth. benztropine (COGENTIN) 0.5 mg tablet Take 1 mg by mouth twice daily. Takes once daily- patient chooses alternate Current Facility-Administered Medications Medication Dose (more content not included)... [facility] 11-04-2022 Instructions Prabha Springer APRN.CNP - 11/04/2022 2:38 PM EST Keep scheduled appointment with dentist next week. Good mouth hygiene May use warm salt water gargle If symptoms get worse start another round of Azithromycin Follow up as needed. Biotene mouth wash documented in this encounter [facility] 11-04-2022 History of Present illness Narrative This is a 41 year old female who presents today with: No chief complaint on file. HISTORY OF PRESENT ILLNESS: Angelica Andujar is a 41 year old female. No chief complaint on file. HOSPITAL/ER FOLLOW UP: Reason for visit: Dental pain Which facility: [facility] ER Date of visit: 10/31/2022 Diagnosis: Dental Testing done: none Treatment given: Azithromycin, instructed to follow up with dentist in 3-5 days. Current symptoms: Refer that bottom right side/Gums are moisture machine tender and swollen. Finished zpack. Some chills but no fever. Has dental appt next week. PAST MEDICAL HISTORY: PAST MEDICAL HISTORY Diagnosis Date 11/2009 Anxiety Arthritis Asthma COPD (chronic obstructive pulmonary disease) ([facility]) Depression Obesity (BMI 30.0-34.9) CHARLES (obstructive sleep apnea) Recurrent UTI Seasonal allergies STD (sexually transmitted disease) Tobacco use disorder 05/18/2021 PAST SURGICAL HISTORY Procedure Laterality Date COLONOSCOPY W/BIOPSY SINGLE/MULTIPLE 03/02/11 ESOPHAGOGASTRODUODENOSCOPY TRANSORAL DIAGNOSTIC 11/14/2012 EGD ESOPHAGOGASTRODUODENOSCOPY TRANSORAL DIAGNOSTIC 06/02/2020 EGD MED INC ALL EX DRUG 11/2009 PAST SURGICAL HISTORY OF WISDOM TEETH ALLERGIES Benzalkonium Chloride; Clindamycin; Doxycycline; Flagyl [Metronidazole]; Hand Sales Assistant Institutional Sales [Ethyl Alcohol (Skin Cleanser)]; Iodine; Latex, Natural Rubber; [place]; Meloxicam; Morphine; Penicillin; Prednisone; Singulair [Montelukast]; and Zofran [Ondansetron Hcl (Pf)] MEDICATIONS Current Outpatient Medications Medication Sig miconazole (MONISTAT 7) 2 % vaginal cream Use 1 Applicator vaginally daily at bedtime. medroxyPROGESTERone (DEPO-PROVERA) 150 mg/mL injection use as directed intramuscularly EVERY 12 WEEKS propranolol (INDERAL) 10 mg tablet TAKE 1 TABLET BY MOUTH THREE TIMES A DAY IF TREMORS PERSIST, IF NOT, MAY TRY TO WEAN DOWN DAILY DOSE multivitamin with folic acid ([facility] MULTIVITAMIN) 400 mcg Take 1 tablet by mouth once daily. lactobacillus rhamnosus ([facility] Yulex [facility]) 10 billion cell -200 mg capsule Take 1 capsule by mouth once daily. SUMAtriptan (IMITREX) 50 mg tablet Take one tablet at onset of headache, may repeat in two hours if needed. No more than two tablets in 24 hours naproxen (NAPROSYN) 500 mg tablet Take 1 tablet by mouth twice daily with meals. Takes as needed sodium chloride (SALINE MIST) 0.65 % nasal spray Use 1 [place] in the nose as needed for cold/allergy symptoms. Dextromethorphan-guaiFENesin (ROBITUSSIN DM) 10-200 mg/5 mL liqd Take 5 mL by mouth every 6 hours as needed. sucralfate (CARAFATE) 1 gram tablet Take 1 tablet by mouth before meals and at bedtime. carbamide peroxide (DEBROX) 6.5 % otic solution Use 5 Drops in both ears twice daily. ascorbic acid, vitamin C, (VITAMIN C) 500 mg tablet Take 1 tablet by mouth once daily. Cholecalciferol, Vitamin D3, 50 mcg (2,000 unit) cap Take 2 capsules by mouth once daily. acetaminophen (TYLENOL EXTRA STRENGTH) 500 mg tablet Take 1 tablet by mouth every 6 hours as needed for pain for up to 60 doses. albuterol HFA (PROVENTIL HFA, VENTOLIN HFA) 90 mcg/actuation inhaler Inhale 2 Puffs as instructed every 6 hours as needed for wheezing/shortness of breath. beclomethasone (QVAR REDIHALER) 80 mcg/actuation inhaler Inhale 2 Puffs as instructed twice daily. (Patient taking differently: Inhale 2 Puffs as instructed twice daily. Takes one puff daily) nicotine (NICODERM) 21 mg/24 hr Apply 1 Patch as directed every 24 hours. Nicotine Polacrilex [address] 1 Lozenge between cheek and gum as needed. diclofenac (VOLTAREN ARTHRITIS PAIN) 1 % topical gel Apply 2 g to affected area four times daily. cyclobenzaprine (FLEXERIL) 10 mg tablet Take 1 tablet by mouth three times daily as needed for muscle spasm. fluticasone (FLONASE) 50 mcg/actuation nasal spray Use 2 Sprays in each nostril once daily. Rinse mouth after use. loratadine (CLARITIN) 10 mg tablet Take 1 tablet by mouth once daily. pantoprazole DR (PROTONIX) 40 mg tablet TAKE 1 TABLET BY MOUTH DAILY promethazine (PHENERGAN) 25 mg tablet take 1 tablet by mouth three times a day if needed for nausea and vomiting Foot Care Products (GEL BUNION CUSHION) pads 1 Device once daily. Apply pad to area daily as needed multivitamin tablet Take 1 tablet by mouth once daily. lactobacillus acidophilus 100 mg (1 billion cell) cap(s) Take 1 capsule by mouth once daily. lamoTRIgine orally disintegrating (LAMICTAL ODT) 25 mg disintegrating tablet Take 25 mg by mouth once daily. cariprazine (VRAYLAR) 3 mg capsule Take by mouth. benztropine (COGENTIN) 0.5 mg tablet Take 1 mg by mouth twice daily. Takes once daily- patient chooses alternate Current Facility-Administered Medications Medication Dose Route Frequency medroxyPROGESTERone 150 mg injection (DEPO-PROVERA) 150 mg INTRAMUSCULAR every 12 weeks FAMILY HISTORY Problem Relation Age of Onset Alcohol/Drug Mother Arthritis Mother Asthma Mother Cancer Mother CANCER Hypertension Mother Stroke Mother Cancer Father LUNG CANCER Emphysema Father Asthma Brother Breast Cancer Maternal Aunt Hypertension Brother Social History Tobacco Use Smoking status: Every Day Packs/day: 1.50 Years: 25.00 Pack years: 37.50 Types: Cigarettes Last attempt to quit: 03/09/2021 Years since quittin.6 Smokeless tobacco: Never Vaping Use Vaping Use: Never used Substance Use Topics Alcohol use: Not Currently Comment: Quit 12/2021 Drug use: No REVIEW OF SYSTEMS GENERAL: No weight loss, malaise or fevers/chills HEENT: + Dental Pain NECK: Negative for lumps, goiter, pain and significant neck swelling RESPIRATORY: Negative for cough, hemoptysis, wheezing, dyspnea or shortness of breath CARDIOVASCULAR: Negative for chest pain, leg swelling, orthopnea, or palpitations GI: No nausea, vomiting, or diarrhea/constipation. No hematochezia/melena. No heartburn or reflux symptoms. : No history of dysuria, frequency or incontinence MUSCULOSKELETAL: Negative for joint pain or swelling. SKIN: Negative for lesions, rash, and itching ENDOCRINE: Negative for cold or heat intolerance, polyuria, polydipsia and goiter NEURO: No history of headaches, syncope, paralysis, seizures or tremors MOOD: Negative for depression, anxiety, or suicidal ideation. EXAM: BP 130/88 Pulse 117 Resp 16 Wt 103 kg (227 lb) LMP (LMP Unknown) SpO2 97% BMI 35.55 kg/m PHYSICAL EXAM: General Appearance: Well appearing, alert, in no acute distress, well-hydrated, well nourished. Skin: Skin color, texture, turgor normal, no suspicious rashes or lesions. Head: Normocephalic, no masses, lesions, tenderness or abnormalities. Eyes: Anicteric sclera. Pupils are equally round and reactive to light. Extraocular movements are intact. Nose/Sinuses: Nares normal, septum midline, mucosa normal, no drainage or sinus tenderness. Oropharynx: Positive findings: dental caries on bottom right side. Erythematic and swollen gums noted. Severe decay. Neck: Supple, no adenopathy; thyroid symmetric, normal size, no bruits. Extremities: No deformities, edema, skin discoloration, clubbing or cyanosis. Good capillary refill. Peripheral Pulses: Capillary refill <2secs, strong peripheral pulses. Neurologic: Gait normal. Sensation grossly intact. ASSESSMENT/PLAN: 1. Hospital discharge follow-up - ICD9: V67.59, ICD10: Z09 (primary diagnosis) - Continuing to have ongoing symptoms since hospital discharge. 2. Tooth decay - ICD9: 521.00, ICD10: K02.9 - Due to medication allergies unable to give different antibiotic. - Patient would like to wait to see dentist. - Continue with supportive care at home, stressed importance of dental hygiene. - If symptoms worsen instructed to start azithromycin. - Keep upcoming appointment with dentist. - AZITHROMYCIN 250 MG TABLET 3. Dental abscess - ICD9: 522.5, ICD10: K04.7 - Same plan as #1. Follow-up as needed or sooner if symptoms get worse or do not improve. Discussed treatment plan and patient voices understanding. Patient's questions answered appropriately. Medications and potential side effects were discussed and patient voices understanding. Prabha Springer APRN.JOSE ROBERTO This note was partially generated using CloudAccess recognition system. Note was reviewed for accuracy. There may be minor misspellings or grammar miscues with ISH voice recognition. documented in this encounter [facility] 10-14-2022 Note HNO ID: [id number] Author: Mima Horner LPN Service: ? Author Type: ? Type: Progress Notes Filed: 10/14/2022 1:13 PM Note Text: Patient identified by name and date of . Angelica Andujar is here for a Depo Provera injection. Patient brought medication. Date last injected: 07/22/22 Depo-Provera, 150 mg, administered IM right upper quadrant gluteus, Lot # [id number], expiration date 07/05/24. Depo-Provera was given without incident. Date of last menses: No LMP recorded (lmp unknown). Patient has had an injection. Irregular bleeding - No Menses ceased - Yes STD prevention discussed: Yes Patient instructed to return to clinic on 12 weeks +/- 5 days. [email or web address] Provider Tete romero was present in office at time of injection. Mima Horner LPN Pt seen in office today for Depo Provera Injection. Patient brought own med. BP 120/70 Wt 225 lb (102.1kg) Vital signs reviewed. Pt advised when to return for next injection and/or yearly pap. Tolerated injection well? Yes. See medication note for lot#, exp date. [facility] 10-14-2022 Note HNO ID: [id number] Author: Tete Romero APRN.PARK MAINTAINER Service: ? Author Type: Nurse Practitioner Type: Progress Notes Filed: 10/14/2022 1:13 PM Note Text: Hat Maker offered: Patient declines. Angelica Andujar is a 41 year old female who presents for vaginal irritation. Experiencing vaginal odor and irritation. Also experiencing urinary frequency and urgency. No burning with urination. Vaginal discharge: none. Itching: No Dyspareunia: N/A Fever/chills: Yes Abdominal pain: Yes,- lower abdominal Bladder: frequency, urgency Bowel: No blood in stool, pain with BM, tarry stool, persistent diarrhea or constipation Any new sexual partners or concern for STD exposure: No Any history of STDs: Does your partner have any new complaints: No Are you currently taking any medications to treat vaginitis: No Do you use feminine sprays, douches or deodorants: No Menstrual cycle:No menses, depo shot Contraception: Depo Provera Last pap: 2018, normal Past medical, surgical, social history, medications and allergies reviewed and updated. OBJECTIVE: There were no vitals taken for this visit. GENERAL: Well developed, well nourished in no apparent distress ABDOMEN: soft, non-tender, and no masses PELVIC: external genitalia normal, normal Bartholin's glands, urethra, Kellogg's glands, no vulvar lesions, no cervical lesions, good vaginal support, physiologic discharge present, normal appearing perineal body and perianal region BIMANUAL: uterus normal size, shape and consistency, no adnexal masses, and non-tender. RECTOVAGINAL: deferred. STD screening: Declined STD check. Any new medications given to the patient have been explained as to directions, reasons for prescribing and side effects. Perineal hygiene and safe sex were discussed with the patient. Jaylin Estevez, student ARJUN ASSESSMENT/PLAN: 1. Encounter for surveillance of other contraceptive - ICD9: V25.49, ICD10: Z30.49 (primary diagnosis) Depo given today 2. Vaginal irritation - ICD9: 623.9, ICD10: N89.8 - MISTY / TRICHOMONAS AMPLIFICATION - BACTERIAL VAGINOSIS AMPLIFICATION Tete Romero APRN.PARK MAINTAINER TEACHING PROVIDER (Physician/PA/SECURITY INCIDENT HANDLER) NOTE OF PERSONAL INVOLVEMENT IN CARE: I have personally seen and examined the patient and performed the medical decision-making components. I have reviewed the Advanced Practice Registered Nurse (SECURITY INCIDENT HANDLER) Student's documentation and verified the findings in the note as written. Any additions or changes are noted in bold/italics. Signature: Tete Romero Date: 10/14/2022 Time: 11:18 AM Medical Decision Making: Problems: Low: Acute, uncomplicated illness or injury Data: Unique test(s) ordered: 2 Risk: Low: Low risk from testing/treatment Moderate: Drug management Medical Decision Making Level: 3 - Low [facility] 10-14-2022 History of Present illness Narrative Patient identified by name and date of . Angelica Andujar is here for a Depo Provera injection. Patient brought medication. Date last injected: 07/22/22 Depo-Provera, 150 mg, administered IM right upper quadrant gluteus, Lot # [id number], expiration date 07/05/24. Depo-Provera was given without incident. Date of last menses: No LMP recorded (lmp unknown). Patient has had an injection. Irregular bleeding - No Menses ceased - Yes STD prevention discussed: Yes Patient instructed to return to clinic on 12 weeks +/- 5 days. [email or web address] Provider Tete romero was present in office at time of injection. Mima Horner LPN Pt seen in office today for Depo Provera Injection. Patient brought own med. BP 120/70 Wt 225 lb (102.1kg) Vital signs reviewed. Pt advised when to return for next injection and/or yearly pap. Tolerated injection well? Yes. See medication note for lot#, exp date. Hat Maker offered: Patient declines. Angelica Andujar is a 41 year old female who presents for vaginal irritation. Experiencing vaginal odor and irritation. Also experiencing urinary frequency and urgency. No burning with urination. Vaginal discharge: none. Itching: No Dyspareunia: N/A Fever/chills: Yes Abdominal pain: Yes,- lower abdominal Bladder: frequency, urgency Bowel: No blood in stool, pain with BM, tarry stool, persistent diarrhea or constipation Any new sexual partners or concern for STD exposure: No Any history of STDs: Does your partner have any new complaints: No Are you currently taking any medications to treat vaginitis: No Do you use feminine sprays, douches or deodorants: No Menstrual cycle:No menses, depo shot Contraception: Depo Provera Last pap: 2018, normal Past medical, surgical, social history, medications and allergies reviewed and updated. OBJECTIVE: There were no vitals taken for this visit. GENERAL: Well developed, well nourished in no apparent distress ABDOMEN: soft, non-tender, and no masses PELVIC: external genitalia normal, normal Bartholin's glands, urethra, Kellogg's glands, no vulvar lesions, no cervical lesions, good vaginal support, physiologic discharge present, normal appearing perineal body and perianal region BIMANUAL: uterus normal size, shape and consistency, no adnexal masses, and non-tender. RECTOVAGINAL: deferred. STD screening: Declined STD check. Any new medications given to the patient have been explained as to directions, reasons for prescribing and side effects. Perineal hygiene and safe sex were discussed with the patient. Jaylin Estevez, student ARJUN ASSESSMENT/PLAN: 1. Encounter for surveillance of other contraceptive - ICD9: V25.49, ICD10: Z30.49 (primary diagnosis) Depo given today 2. Vaginal irritation - ICD9: 623.9, ICD10: N89.8 - MISTY / TRICHOMONAS AMPLIFICATION - BACTERIAL VAGINOSIS AMPLIFICATION Tete Romero APRN.PARK MAINTAINER TEACHING PROVIDER (Physician/PA/SECURITY INCIDENT HANDLER) NOTE OF PERSONAL INVOLVEMENT IN CARE: I have personally seen and examined the patient and performed the medical decision-making components. I have reviewed the Advanced Practice Registered Nurse (SECURITY INCIDENT HANDLER) Student's documentation and verified the findings in the note as written. Any additions or changes are noted in bold/italics. Signature: Tete Romero Date: 10/14/2022 Time: 11:18 AM Medical Decision Making: Problems: Low: Acute, uncomplicated illness or injury Data: Unique test(s) ordered: 2 Risk: Low: Low risk from testing/treatment Moderate: Drug management Medical Decision Making Level: 3 - Low documented in this encounter [facility] 10-14-2022 Instructions Mima Horner LPN - 10/14/2022 10:46 AM EST Patient Instructions for Depo-Provera You have chosen a very effective method of control - shots every 3 months of Depo-Provera. control shots are used by more than 6 million women around the world, and Depo-provera is the most commonly used injection or shot. Certain Women should NOT use Depo-Provera Contraception injection. You should not use Depo-Provera if you... Think you might be Have any vaginal bleeding without a known cause Have had cancer of the breast Have had a stroke Have or have had blood clots (phlebitis) in your legs Have problems with your liver or liver disease Are allergic to Depo-Provera Contraception Injection (medroxyprogesterone acetate or any of it's ingredients) If you wish to get , stop control shots several months before you plan to get . The following information may help you use Depo-Provera: 1. Use another form of control for 2 weeks after your first injection. 2. Depo-Provera tends to make a woman's periods less regular and bleeding and spotting between periods is common for the first 9 -12 months. Some women stop having periods completely, usually after 9 months on Depo-Provera. If your pattern of bleeding concerns you, return to the clinic to get a blood test for anemia, or to check the possibility of , or to check for an infection. 3. Return to the clinic every 3 months for another shot.(Between weeks 11-13 from your last injection) 4. Weight gain is common the first 3 years on Depo-Provera. More than 5 pounds the first year, should be reported. 5. Depo-Provera is intended to prevent . It does not protect against transmission of HIV (AIDS) and other sexually transmitted diseases such as chlamydia, genital herpes, genital warts, gonorrhea, hepatitis B, and syphilis. You should continue to use condoms. 6. Report to the clinic if you develop any problems. DANGER SIGNALS - Weight gain of more than 5 pounds - Headaches - Heavy Bleeding - Depression - Frequent urination These instructions have been explained to the patient and she received a copy. 10/14/2022 documented in this encounter [facility] 10-07-2022 Miscellaneous Notes Noted and agree Win Mejia MD Patient call in for diarrhea x 2 and vomiting x 1. Patient states pharmacy told her to call and that pharmacy told her to eat a bland diet. Nurse Triage assessment completed with protocol recommending for disposition of See PCP in 24 hours. Care advice reviewed with patient, patient stated understanding. Patient is already seeing Misbah Michel for sleep issues tomorrow. Reason for Disposition [1] MODERATE pain (e.g., interferes with normal activities) AND [2] pain comes and goes (cramps) AND [3] present > 24 hours (Exception: pain with Vomiting or Diarrhea - see that Guideline) Answer Assessment - Initial Assessment Questions 1. LOCATION: Lower left abdominal pain 2. RADIATION: States that yesterday had chest pain but it was gas pains. 3. ONSET: When did the pain begin? (e.g., minutes, hours or days ago) Couple of days 4. SUDDEN: Gradual 5. PATTERN Comes and goes 6. SEVERITY: Patient states that she has a tolerance of pain so it is hard to tell, probably a 4 out of 10 7. RECURRENT SYMPTOM: Denies, states that she has gerd 8. CAUSE: Unsure 9. RELIEVING/AGGRAVATING FACTORS: Laying down makes it better 10. OTHER SYMPTOMS: Diarrhea x 2 today, emesis in mouth today Protocols used: Abdominal Pain - [id number] documented in this encounter [facility] 10-04-2022 Miscellaneous Notes The following approved medication requests have been transmitted electronically. Requested Prescriptions Pending Prescriptions Disp Refills propranolol (INDERAL) 10 mg tablet 84 tablet 5 Sig: TAKE 1 TABLET BY MOUTH THREE TIMES A DAY IF TREMORS PERSIST, IF NOT, MAY TRY TO WEAN DOWN DAILY DOSE multivitamin with folic acid (THEREMS MULTIVITAMIN) 400 mcg 30 tablet 11 Sig: Take 1 tablet by mouth once daily. Misbah Michel APRN.CNP Patient has been identified by name and date of : Yes, Provider Dr. Mejia Date 10-04-22 Time 11:36 am Pharmacy phones for refill(s): Requested Prescriptions Pending Prescriptions Disp Refills propranolol (INDERAL) 10 mg tablet 84 tablet 5 Sig: TAKE 1 TABLET BY MOUTH THREE TIMES A DAY IF TREMORS PERSIST, IF NOT, MAY TRY TO WEAN DOWN DAILY DOSE multivitamin with folic acid (THEREMS MULTIVITAMIN) 400 mcg 30 tablet 11 Sig: Take 1 tablet by mouth once daily. Date of last office visit with pcp: 09-15-22. Next appt: none Last 2 Encounter Wt Readings: Date: Wt: 09/28/2022 103.4 kg (228 lb) 09/15/2022 103 kg (227 lb) Previous labs/tests for medication: Blood Pressure: BUN (mg/dL) Date Value 02/24/2022 10 01/13/2021 12 Sodium (mmol/L) Date Value 02/24/2022 138 01/13/2021 139 Last 1 Encounter BP Readings: Date: BP: 09/28/2022 118/70 Liver Function: ALT (U/L) Date Value 02/24/2022 23 01/13/2021 22 AST (U/L) Date Value 02/24/2022 17 01/13/2021 18 Please advise. Thank you. Marifer Masters RN documented in this encounter [facility] 10-01-2022 Miscellaneous Notes The following approved medication requests have been transmitted electronically. Requested Prescriptions Pending Prescriptions Disp Refills lactobacillus rhamnosus ([employer]) 10 billion cell -200 mg capsule 30 capsule 11 Sig: Take 1 capsule by mouth once daily. Misbah Michel APRN.CNP Patient has been identified by name and date of : Yes, Provider Dr. Mejia Date 10-01-22 Time 9:16 am Pharmacy phones for refill(s): Requested Prescriptions Pending Prescriptions Disp Refills lactobacillus rhamnosus ([employer]) 10 billion cell -200 mg capsule 30 capsule 11 Sig: Take 1 capsule by mouth once daily. Date of last office visit with pcp: 09-15-22. Next appt: 10-01-22 Last 2 Encounter Wt Readings: Date: Wt: 09/28/2022 103.4 kg (228 lb) 09/15/2022 103 kg (227 lb) Previous labs/tests for medication: Blood Pressure: BUN (mg/dL) Date Value 02/24/2022 10 01/13/2021 12 Sodium (mmol/L) Date Value 02/24/2022 138 01/13/2021 139 Last 1 Encounter BP Readings: Date: BP: 09/28/2022 118/70 Liver Function: ALT (U/L) Date Value 02/24/2022 23 01/13/2021 22 AST (U/L) Date Value 02/24/2022 17 01/13/2021 18 Please advise. Thank you. Marifer Masters RN documented in this encounter [facility] 09-29-2022 Miscellaneous Notes Left a message for pt with information/results below. Ayleen Murrieta LPN Negative for flu and COVID please notify thank you documented in this encounter [facility] 09-28-2022 History of Present illness Narrative This note was created using [employer]. Subjective Angelica Andujar is a 41 year old female. HPI 41-year-old female with PMH of COPD presents for chills, body aches, fatigue, diarrhea and cough. Patient states this is all been going on for about a week. States diarrhea is intermittent. She had 1 episode this morning. No recent antibiotic use. She has had mild cough, body aches and chills for the past week as well. No nasal congestion or sinus pressure. No headaches. States that she has some itching on her left palm. No new exposures. States that she has been having fatigue for several months now. She also reports left-sided low back pain which is chronic and needs a refill on her naproxen. PAST MEDICAL HISTORY Diagnosis Date 11/2009 Anxiety Arthritis Asthma COPD (chronic obstructive pulmonary disease) (HCC) Depression Obesity (BMI 30.0-34.9) CHARLES (obstructive sleep apnea) Recurrent UTI Seasonal allergies STD (sexually transmitted disease) Tobacco use disorder 05/18/2021 PAST SURGICAL HISTORY Procedure Laterality Date COLONOSCOPY W/BIOPSY SINGLE/MULTIPLE 03/02/11 ESOPHAGOGASTRODUODENOSCOPY TRANSORAL DIAGNOSTIC 11/14/2012 EGD ESOPHAGOGASTRODUODENOSCOPY TRANSORAL DIAGNOSTIC 06/02/2020 EGD [employer] ALL EX DRUG 11/2009 PAST SURGICAL HISTORY OF WISDOM TEETH ALLERGIES Benzalkonium Chloride; Clindamycin; Doxycycline; Flagyl [Metronidazole]; Hand Sales Assistant Institutional Sales [Ethyl Alcohol (Skin Cleanser)]; Iodine; Latex, Natural Rubber; [place]; Meloxicam; Morphine; Penicillin; Prednisone; Singulair [Montelukast]; and Zofran [Ondansetron Hcl (Pf)] MEDICATIONS SUMAtriptan (IMITREX) 50 mg tablet^Take one tablet at onset of headache, may repeat in two hours if needed. No more than two tablets in 24 hours^Disp: 6 tablet^Rfl: 1 naproxen (NAPROSYN) 500 mg tablet^Take 1 tablet by mouth twice daily with meals. Takes as needed^Disp: 60 tablet^Rfl: 5 sodium chloride (SALINE MIST) 0.65 % nasal spray^Use 1 [place] in the nose as needed for cold/allergy symptoms.^Disp: 44 mL^Rfl: 0 Dextromethorphan-guaiFENesin (ROBITUSSIN DM) 10-200 mg/5 mL liqd^Take 5 mL by mouth every 6 hours as needed.^Disp: 118 mL^Rfl: 0 sucralfate (CARAFATE) 1 gram tablet^Take 1 tablet by mouth before meals and at bedtime.^Disp: 120 tablet^Rfl: 1 carbamide peroxide (DEBROX) 6.5 % otic solution^Use 5 Drops in both ears twice daily.^Disp: 15 mL^Rfl: 0 benzonatate (TESSALON PERLES) 100 mg capsule^Take 1 capsule by mouth three times daily as needed for cough.^Disp: 12 capsule^Rfl: 0 ascorbic acid, vitamin C, (VITAMIN C) 500 mg tablet^Take 1 tablet by mouth once daily.^Disp: 30 tablet^Rfl: 5 Cholecalciferol, Vitamin D3, 50 mcg (2,000 unit) cap^Take 2 capsules by mouth once daily.^Disp: 56 capsule^Rfl: 11 acetaminophen (TYLENOL EXTRA STRENGTH) 500 mg tablet^Take 1 tablet by mouth every 6 hours as needed for pain for up to 60 doses.^Disp: 60 tablet^Rfl: 3 albuterol HFA (PROVENTIL HFA, VENTOLIN HFA) 90 mcg/actuation inhaler^Inhale 2 Puffs as instructed every 6 hours as needed for wheezing/shortness of breath.^Disp: 18 g^Rfl: 3 beclomethasone (QVAR REDIHALER) 80 mcg/actuation inhaler^Inhale 2 Puffs as instructed twice daily.^Disp: 30 Each^Rfl: 5 (Patient taking differently: Inhale 2 Puffs as instructed twice daily. Takes one puff daily) Nicotine Polacrilex 4 mg lozenge^Place 1 Lozenge between cheek and gum as needed.^Disp: 108 Lozenge^Rfl: 3 propranolol (INDERAL) 10 mg tablet^TAKE 1 TABLET BY MOUTH THREE TIMES A DAY IF TREMORS PERSIST, IF NOT, MAY TRY TO WEAN DOWN DAILY DOSE^Disp: 84 tablet^Rfl: 5 diclofenac (VOLTAREN ARTHRITIS PAIN) 1 % topical gel^Apply 2 g to affected area four times daily.^Disp: 50 g^Rfl: 0 cyclobenzaprine (FLEXERIL) 10 mg tablet^Take 1 tablet by mouth three times daily as needed for muscle spasm.^Disp: 18 tablet^Rfl: 0 fluticasone (FLONASE) 50 mcg/actuation nasal spray^Use 2 Sprays in each nostril once daily. Rinse mouth after use.^Disp: 1 Each^Rfl: 0 loratadine (CLARITIN) 10 mg tablet^Take 1 tablet by mouth once daily.^Disp: 28 tablet^Rfl: [address] (PROTONIX) 40 mg tablet^TAKE 1 TABLET BY MOUTH DAILY^Disp: 30 tablet^Rfl: 11 medroxyPROGESTERone (DEPO-PROVERA) 150 mg/mL injection^use as directed intramuscularly EVERY 12 WEEKS^Disp: 1 mL^Rfl: 4 THEREMS MULTIVITAMIN 400 mcg^TAKE 1 TABLET BY MOUTH DAILY^Disp: 30 tablet^Rfl: 11 promethazine (PHENERGAN) 25 mg tablet^take 1 tablet by mouth three times a day if needed for nausea and vomiting^Disp: 60 tablet^Rfl: 3 Foot Care Products (GEL BUNION CUSHION) pads^1 Device once daily. Apply pad to area daily as needed^Disp: 14 Each^Rfl: 2 multivitamin tablet^Take 1 tablet by mouth once daily.^Disp: 30 tablet^Rfl: 11 lactobacillus acidophilus 100 mg (1 billion cell) cap(s)^Take 1 capsule by mouth once daily.^Disp: 30 capsule^Rfl: 11 lamoTRIgine orally disintegrating (LAMICTAL ODT) 25 mg disintegrating tablet^Take 25 mg by mouth once daily. ^Disp: ^Rfl: cariprazine (VRAYLAR) 3 mg capsule^Take by mouth.^Disp: ^Rfl: benztropine (COGENTIN) 0.5 mg tablet^Take 1 mg by mouth twice daily. Takes once daily- patient chooses alternate^Disp: ^Rfl: naproxen (NAPROSYN) 500 mg tablet^Take 1 tablet by mouth twice daily as needed (pain/inflammation, take with food.).^Disp: 60 tablet^Rfl: 0 Zinc Acetate, Oral, 50 mg (zinc) cap^Take 1 capsule by mouth once daily.^Disp: 30 capsule^Rfl: 5 (Patient not taking: Reported on 09/07/2022) nicotine (NICODERM) 21 mg/24 hr^Apply 1 Patch as directed every 24 hours.^Disp: 30 Patch^Rfl: 3 [facility] [employer] 10 billion cell -200 mg capsule^TAKE 1 CAPSULE BY MOUTH DAILY^Disp: 30 capsule^Rfl: 11 (Patient not taking: Reported on 09/07/2022) FAMILY HISTORY Problem Relation Age of Onset Alcohol/Drug Mother Arthritis Mother Asthma Mother Cancer Mother CANCER Hypertension Mother Stroke Mother Cancer Father LUNG CANCER Emphysema Father Asthma Brother Breast Cancer Maternal Aunt Hypertension Brother Social History Tobacco Use Smoking status: Every Day Packs/day: 1.50 Years: 25.00 Pack years: 37.50 Types: Cigarettes Last attempt to quit: 03/09/2021 Years since quittin.5 Smokeless tobacco: Never Vaping Use Vaping Use: Never used Substance Use Topics Alcohol use: Not Currently Comment: Quit 12/2021 Drug use: No Review of Systems Constitutional: Positive for chills and fatigue. Negative for fever. HENT: Negative for congestion, ear pain and sore throat. Respiratory: Positive for cough. Negative for shortness of breath. Cardiovascular: Negative for chest pain. Gastrointestinal: Positive for diarrhea. Negative for vomiting. Musculoskeletal: Positive for back pain (Chronic) and myalgias. Objective BP 118/70 Pulse 106 Temp 36.4 C (97.5 F) Resp 16 Wt 103.4 kg (228 lb) LMP (LMP Unknown) SpO2 97% BMI 35.71 kg/m Physical Exam Vitals and nursing note reviewed. Constitutional: General: She is not in acute distress. Appearance: Normal appearance. She is not toxic-appearing. HENT: Right Ear: Tympanic membrane and ear canal normal. Left Ear: Tympanic membrane and ear canal normal. Nose: Nose normal. Mouth/Throat: Mouth: Mucous membranes are moist. Pharynx: No oropharyngeal exudate or posterior oropharyngeal erythema. Eyes: Conjunctiva/sclera: Conjunctivae normal. Cardiovascular: Rate and Rhythm: Normal rate and regular rhythm. Pulmonary: Effort: Pulmonary effort is normal. Breath sounds: Normal breath sounds. Musculoskeletal: Lumbar back: Tenderness (L paraspinal) present. No bony tenderness. Comments: Mild left-sided paraspinal muscle tenderness. No midline tenderness. Patient states this is chronic. Skin: General: Skin is warm. Capillary Refill: Capillary refill takes less than 2 seconds. Findings: No rash. Comments: Reports itching to left palm. No rash present. Neurological: Mental Status: She is alert. Assessment and Plan ASSESSMENT/PLAN: 1. Viral illness - ICD9: 079.99, ICD10: B34.9 (primary diagnosis) - Discussed viral etiology and rationale for treatment. - Symptomatic treatment with prn analgesia - Supportive care with fluids and rest - COVID WITH FLUA+B, ROUTINE-out of window for Tamiflu and antiviral. 2. Chronic midline low back pain without sciatica - ICD9: 724.2, 338.29, ICD10: M54.50, G89.29 -No new injury or complaints. No red flag symptoms. - Refill naproxen 3. Fatigue, unspecified type - ICD9: 780.79, ICD10: R53.83 -Advised follow-up with PCP for chronic fatigue. GERARDO Hein documented in this encounter [facility] 09-28-2022 Instructions GERARDO Hein - 09/28/2022 5:51 PM EST -Follow-up with primary care doctor for ongoing fatigue. You may need laboratory testing/further work-up for this -COVID and flu test are pending. documented in this encounter [facility] 09-23-2022 Miscellaneous Notes Noted, thank you. Prabha Springer APRN.PARK MAINTAINER FYI: Pt called in to let you know she wanted to cancel apt today but phone was acting up and was not able to cancel. Pt declined to reschedule at this time. Ayleen Murrieta LPN documented in this encounter [facility] 09-20-2022 Miscellaneous Notes Patient calls and notified of provider response. Voices understanding. Lilian Marks RN Message left for pt to call back. Elsy Villegas Ma Keep appt with Prabha as scheduled to discuss her sleep concerns Win Mejia MD Patient calls and states that she is continuing to have issues with sleep. Patient has not done ordered sleep study yet, however patient states that she is having other issues with sleep then previous issues. Patient reports that her sleep schedule is messed up. Patient goes to bed around 9:30 at night. Patient states that she falls asleep between 10 pm-11pm. Patient states that she usually woke up around 9/930 am. Patient states that she is now sleeping till noon.. Patient states that she has been feeling tired and fatigue. Patient asking what she can do to fix this problem? Patient did set up appointment with Prabha on 07/24/2023. Please review and advise, Lilian Marks RN documented in this encounter [facility] 09-17-2022 Miscellaneous Notes Order filed. Dr. Amos, please file order Patient had to reschedule appointment with your office to 10/04 due to ride issues. She is requesting a x-ray order for left foot pain. But when told she would need to complete at [facility] she has issues with transportation once again and asking if order could be placed to complete at [facility] when there this Friday 09/15 for appointment with PCP and then review at visit with you on 10/04. documented in this encounter [facility] 09-15-2022 Instructions Chayito Tan APRN.CNP - 09/15/2022 9:31 AM EST Recommend trying over the counter Excedrin migraine as directed on packaging documented in this encounter [facility] 09-15-2022 History of Present illness Narrative 09/15/2022 Patient presents with: Migraine SUBJECTIVE: This is a 41 year old that is here today for Above Complaints. Reports hx of migraines for a few months. Headache located mostly across forehead. Described as sharp and shooting. Headaches occur about 2-3 times per month and can last for a few hours. Headaches interfere with her activities. Admits to accompanying nausea, photophobia, phonophobia and has vomited at times. Has tried prescribed naproxen and OTC tylenol without much relief. Reports arthritis in neck which she thinks may be an aggravating feature, otherwise has not noted an aggravating features. Denies visual changes, slurred speech, facial drooping, lightheadedness, dizziness, extremity numbness, tingling, weakness or confusion. PAST MEDICAL HISTORY Diagnosis Date 11/2009 Anxiety Arthritis Asthma COPD (chronic obstructive pulmonary disease) ([facility]) Depression Obesity (BMI 30.0-34.9) CHARLES (obstructive sleep apnea) Recurrent UTI Seasonal allergies STD (sexually transmitted disease) Tobacco use disorder 05/18/2021 ALLERGIES Benzalkonium Chloride; Clindamycin; Doxycycline; Flagyl [Metronidazole]; Hand Sales Assistant [employer] [Ethyl Alcohol (Skin Cleanser)]; Iodine; Latex, Natural Rubber; [place]; Meloxicam; Morphine; Penicillin; Prednisone; Singulair [Montelukast]; and Zofran [Ondansetron Hcl (Pf)] MEDICATIONS Current Outpatient Medications Medication Sig naproxen (NAPROSYN) 500 mg tablet Take 1 tablet by mouth twice daily with meals. Takes as needed sodium chloride (SALINE MIST) 0.65 % nasal spray Use 1 [place] in the nose as needed for cold/allergy symptoms. Dextromethorphan-guaiFENesin (ROBITUSSIN DM) 10-200 mg/5 mL liqd Take 5 mL by mouth every 6 hours as needed. sucralfate (CARAFATE) 1 gram tablet Take 1 tablet by mouth before meals and at bedtime. carbamide peroxide (DEBROX) 6.5 % otic solution Use 5 Drops in both ears twice daily. benzonatate (TESSALON PERLES) 100 mg capsule Take 1 capsule by mouth three times daily as needed for cough. Zinc Acetate, Oral, 50 mg (zinc) cap Take 1 capsule by mouth once daily. (Patient not taking: Reported on 09/07/2022) ascorbic acid, vitamin C, (VITAMIN C) 500 mg tablet Take 1 tablet by mouth once daily. Cholecalciferol, Vitamin D3, 50 mcg (2,000 unit) cap Take 2 capsules by mouth once daily. acetaminophen (TYLENOL EXTRA STRENGTH) 500 mg tablet Take 1 tablet by mouth every 6 hours as needed for pain for up to 60 doses. albuterol HFA (PROVENTIL HFA, VENTOLIN HFA) 90 mcg/actuation inhaler Inhale 2 Puffs as instructed every 6 hours as needed for wheezing/shortness of breath. beclomethasone (QVAR REDIHALER) 80 mcg/actuation inhaler Inhale 2 Puffs as instructed twice daily. (Patient taking differently: Inhale 2 Puffs as instructed twice daily. Takes one puff daily) nicotine (NICODERM) 21 mg/24 hr Apply 1 Patch as directed every 24 hours. Nicotine Polacrilex [address] 1 Lozenge between cheek and gum as needed. propranolol (INDERAL) 10 mg tablet TAKE 1 TABLET BY MOUTH THREE TIMES A DAY IF TREMORS PERSIST, IF NOT, MAY TRY TO WEAN DOWN DAILY DOSE diclofenac (VOLTAREN ARTHRITIS PAIN) 1 % topical gel Apply 2 g to affected area four times daily. cyclobenzaprine (FLEXERIL) 10 mg tablet Take 1 tablet by mouth three times daily as needed for muscle spasm. fluticasone (FLONASE) 50 mcg/actuation nasal spray Use 2 Sprays in each nostril once daily. Rinse mouth after use. loratadine (CLARITIN) 10 mg tablet Take 1 tablet by mouth once daily. pantoprazole DR (PROTONIX) 40 mg tablet TAKE 1 TABLET BY MOUTH DAILY medroxyPROGESTERone (DEPO-PROVERA) 150 mg/mL injection use as directed intramuscularly EVERY 12 WEEKS THEREMS MULTIVITAMIN 400 mcg TAKE 1 TABLET BY MOUTH DAILY [facility] [employer] 10 billion cell -200 mg capsule TAKE 1 CAPSULE BY MOUTH DAILY (Patient not taking: Reported on 09/07/2022) promethazine (PHENERGAN) 25 mg tablet take 1 tablet by mouth three times a day if needed for nausea and vomiting Foot Care Products (GEL BUNION CUSHION) pads 1 Device once daily. Apply pad to area daily as needed multivitamin tablet Take 1 tablet by mouth once daily. lactobacillus acidophilus 100 mg (1 billion cell) cap(s) Take 1 capsule by mouth once daily. lamoTRIgine orally disintegrating (LAMICTAL ODT) 25 mg disintegrating tablet Take 25 mg by mouth once daily. cariprazine (VRAYLAR) 3 mg capsule Take by mouth. benztropine (COGENTIN) 0.5 mg tablet Take 1 mg by mouth twice daily. Takes once daily- patient chooses alternate Current Facility-Administered Medications Medication Dose Route Frequency medroxyPROGESTERone 150 mg injection (DEPO-PROVERA) 150 mg INTRAMUSCULAR every 12 weeks Medications and allergies reviewed by this provider. SOCIAL HISTORY Social History Tobacco Use Smoking status: Every Day Packs/day: 1.50 Years: 25.00 Pack years: 37.50 Types: Cigarettes Last attempt to quit: 03/09/2021 Years since quittin.5 Smokeless tobacco: Never Vaping Use Vaping Use: Never used Substance Use Topics Alcohol use: Not Currently Comment: Quit 12/2021 Drug use: No REVIEW OF SYSTEMS All other reviewed and negative other than HPI. OBJECTIVE: BP 118/88 Pulse 100 Resp 16 Wt 103 kg (227 lb) LMP (LMP Unknown) SpO2 96% BMI 35.55 kg/m . Vital signs reviewed by this provider. APPEARANCE Well appearing, alert, in no acute distress, well-hydrated, well nourished. EYES PERRLA, conjunctiva and sclera normal. EARS Soft cerumen bilateral ear canals obstructing TMs NECK Supple, no adenopathy; thyroid symmetric, normal size, no bruits HEART RRR with normal S1 and S2, no murmurs, no gallops, no JVD appreciated LUNG clear to auscultation. No wheezes, rhonchi or rales EXTREMITIES Extremities normal, No deformities, No skin discoloration, No edema, NEURO Awake, alert and oriented x 3, Cranial nerves II-XII grossly intact, Reflexes symmetrical, Normal gait, No involuntary motions., and negative findings: speech normal, mental status intact, cranial nerves 2-12 intact, gait, including heel, toe, and tandem walking normal, Romberg negative, muscle tone normal, muscle strength normal, rapid alternating movements normal, finger to nose normal, reflexes normal and symmetric, plantar response downgoing bilaterally SKIN Skin color, texture, turgor normal, no suspicious rashes or lesions to exposed skin PNEUMOCOCCAL(1 - PCV) Never done HEPATITIS B(2 of 3 - 19+ 3-dose series) due on 04/16/2011 COVID-19 VACCINE(2 - Pfizer series) due on 09/15/2021 INFLUENZA(1) due on 05/06/2022 DEPRESSION ASSESSMENT Never done MAMMOGRAM due on 08/19/2022 PAP TESTING due on 08/04/2023 HPV TESTING due on 08/04/2023 ANNUAL PCP TEAM CHRONIC DISEASE VISIT due on 08/25/2023 DTAP,TDAP,TD(8 - Td or Tdap) due on 01/22/2025 ALPHA-1 ANTITRYPSIN DEFICIENCY SCREENING Completed SPIROMETRY Completed HEPATITIS C SCREENING Completed HIV SCREENING Completed ASSESSMENT/PLAN: 1. Headaches - ICD9: 784.0, ICD10: R51.9 - tension vs migraine - no red flag symptoms or exam findings - red flag symptoms discussed, verbalizes understanding - may try OTC Excedrin migraine to see if that helps - SUMATRIPTAN 50 MG TABLET- common side effects discussed, verbalizes understanding - follow-up with PCP if symptoms fail to improve, to ER with red flag symptoms Chayito Tan APRN.CNP Prescription instructions reviewed with patient as applicable. Patient advised if symptoms do not improve or if symptoms worsen sooner, to contact their primary care physician. Potential red flag symptoms discussed with the patient. Reviewed appropriate action plan to take if red flag symptoms occur. Patient agreeable to treatment plan. I spent a total of 30 minutes on the date of the service which included preparing to see the patient, [id number] patient care, completing clinical documentation, obtaining and/or reviewing separately obtained history, performing a medically appropriate examination, counseling and educating the patient/family/caregiver, and ordering medications, tests, or procedures. documented in this encounter [facility] 09-10-2022 Miscellaneous Notes OK to refill as ordered Win Mejia MD Patient has been identified by name and date of : Yes, Brii Groves RN Date 09/10/2022 Time 4:27 pm Patient phones for refill(s): Requested Prescriptions Pending Prescriptions Disp Refills naproxen (NAPROSYN) 500 mg tablet Sig: Take 1 tablet by mouth twice daily with meals. Takes as needed Date of last office visit with pcp: 08/25/2022 Future appt: 09/15/2022 Last 2 Encounter Wt Readings: Date: Wt: 09/07/2022 103 kg (227 lb) 08/19/2022 104.6 kg (230 lb 9.6 oz) Previous labs/tests for medication: Blood Pressure: BUN (mg/dL) Date Value 02/24/2022 10 01/13/2021 12 Sodium (mmol/L) Date Value 02/24/2022 138 01/13/2021 139 Last 1 Encounter BP Readings: Date: BP: 09/07/2022 134/90 Liver Function: ALT (U/L) Date Value 02/24/2022 23 01/13/2021 22 AST (U/L) Date Value 02/24/2022 17 01/13/2021 18 Please advise. Thank you. Brii Groves RN documented in this encounter [facility] 09-07-2022 History of Present illness Narrative Verified name and date of . Patient arrived- unable to urinate and fluids encouraged. Drinking water. CC Post Void Residual HPI: Angelica Andujar is a 41 year old female. The patient is here now for an appointment with SAV Gomes, [place], PA-COV. Procedure: Explained procedure to patient and verbalizes understanding. Performed a PVR. Patient urinated and instructed to empty bladder as much as possible just prior to having PVR done using bladder ultrasound scanner. Results of scan: 0 mL The patient tolerated the procedure well. Plan: Appointment with Richard. Images from the original note were not included. [facility] NEW PATIENT CLINIC NOTE SERVICE DATE: 09/07/2022 SERVICE TIME: 4:10 PM NAME: Angelica Andujar CHIEF COMPLAINT: Frequency HISTORY OF PRESENT ILLNESS: Angelica Andujar is a 41 year old female with PMH including CHARLES and Yeast Infection presenting with urinary frequency The patient reports having to go to the bathroom every 2hrs, we discussed that is a fairly good interval and not considered abnormal She is an active smoker and smoking is a bladder irritant She also had a positive yeast infection and has not started the medication LUTS: DYSURIA: yes URGENCY: Yes FREQUENCY:5 per day NOCTURIA: 0 per night STRAINING TO VOID: No EMPTIES COMPLETELY: Yes UTI: No GROSS HEMATURIA: no MICROSCOPIC HEMATURIA: no UA DIPSTICK POSITIVE ONLY: no Other symptoms: LABS: Testosterone (ng/dL) Date Value 04/12/2019 See Comment Testosterone Free (pg/mL) Date Value 04/12/2019 See Comment No results found for: PSA Hematocrit (%) Date Value 02/24/2022 46.4 12/16/2021 45.7 01/19/2021 45.4 01/13/2021 47.4 07/22/2020 44.1 MEDICATIONS: sodium chloride (SALINE MIST) 0.65 % nasal spray^Use 1 [place] in the nose as needed for cold/allergy symptoms.^Disp: 44 mL^Rfl: 0 Dextromethorphan-guaiFENesin (ROBITUSSIN DM) 10-200 mg/5 mL liqd^Take 5 mL by mouth every 6 hours as needed.^Disp: 118 mL^Rfl: 0 carbamide peroxide (DEBROX) 6.5 % otic solution^Use 5 Drops in both ears twice daily.^Disp: 15 mL^Rfl: 0 ascorbic acid, vitamin C, (VITAMIN C) 500 mg tablet^Take 1 tablet by mouth once daily.^Disp: 30 tablet^Rfl: 5 Cholecalciferol, Vitamin D3, 50 mcg (2,000 unit) cap^Take 2 capsules by mouth once daily.^Disp: 56 capsule^Rfl: 11 acetaminophen (TYLENOL EXTRA STRENGTH) 500 mg tablet^Take 1 tablet by mouth every 6 hours as needed for pain for up to 60 doses.^Disp: 60 tablet^Rfl: 3 albuterol HFA (PROVENTIL HFA, VENTOLIN HFA) 90 mcg/actuation inhaler^Inhale 2 Puffs as instructed every 6 hours as needed for wheezing/shortness of breath.^Disp: 18 g^Rfl: 3 beclomethasone (QVAR REDIHALER) 80 mcg/actuation inhaler^Inhale 2 Puffs as instructed twice daily.^Disp: 30 Each^Rfl: 5 (Patient taking differently: Inhale 2 Puffs as instructed twice daily. Takes one puff daily) propranolol (INDERAL) 10 mg tablet^TAKE 1 TABLET BY MOUTH THREE TIMES A DAY IF TREMORS PERSIST, IF NOT, MAY TRY TO WEAN DOWN DAILY DOSE^Disp: 84 tablet^Rfl: 5 loratadine (CLARITIN) 10 mg tablet^Take 1 tablet by mouth once daily.^Disp: 28 tablet^Rfl: [address] (PROTONIX) 40 mg tablet^TAKE 1 TABLET BY MOUTH DAILY^Disp: 30 tablet^Rfl: 11 medroxyPROGESTERone (DEPO-PROVERA) 150 mg/mL injection^use as directed intramuscularly EVERY 12 WEEKS^Disp: 1 mL^Rfl: 4 naproxen (NAPROSYN) 500 mg tablet^Take 1 tablet by mouth twice daily with meals.^Disp: 60 tablet^Rfl: 6 (Patient taking differently: Take 500 mg by mouth twice daily with meals. Takes as needed) Foot Care Products (GEL BUNION CUSHION) pads^1 Device once daily. Apply pad to area daily as needed^Disp: 14 Each^Rfl: 2 multivitamin tablet^Take 1 tablet by mouth once daily.^Disp: 30 tablet^Rfl: 11 lactobacillus acidophilus 100 mg (1 billion cell) cap(s)^Take 1 capsule by mouth once daily.^Disp: 30 capsule^Rfl: 11 lamoTRIgine orally disintegrating (LAMICTAL ODT) 25 mg disintegrating tablet^Take 25 mg by mouth once daily. ^Disp: ^Rfl: cariprazine (VRAYLAR) 3 mg capsule^Take by mouth.^Disp: ^Rfl: benztropine (COGENTIN) 0.5 mg tablet^Take 1 mg by mouth twice daily. Takes once daily- patient chooses alternate^Disp: ^Rfl: sucralfate (CARAFATE) 1 gram tablet^Take 1 tablet by mouth before meals and at bedtime.^Disp: 120 tablet^Rfl: 1 benzonatate (TESSALON PERLES) 100 mg capsule^Take 1 capsule by mouth three times daily as needed for cough.^Disp: 12 capsule^Rfl: 0 Zinc Acetate, Oral, 50 mg (zinc) cap^Take 1 capsule by mouth once daily.^Disp: 30 capsule^Rfl: 5 (Patient not taking: Reported on 09/07/2022) nicotine (NICODERM) 21 mg/24 hr^Apply 1 Patch as directed every 24 hours.^Disp: 30 Patch^Rfl: 3 Nicotine Polacrilex 4 mg lozenge^Place 1 Lozenge between cheek and gum as needed.^Disp: 108 Lozenge^Rfl: 3 diclofenac (VOLTAREN ARTHRITIS PAIN) 1 % topical gel^Apply 2 g to affected area four times daily.^Disp: 50 g^Rfl: 0 cyclobenzaprine (FLEXERIL) 10 mg tablet^Take 1 tablet by mouth three times daily as needed for muscle spasm.^Disp: 18 tablet^Rfl: 0 fluticasone (FLONASE) 50 mcg/actuation nasal spray^Use 2 Sprays in each nostril once daily. Rinse mouth after use.^Disp: 1 Each^Rfl: 0 THEREMS MULTIVITAMIN 400 mcg^TAKE 1 TABLET BY MOUTH DAILY^Disp: 30 tablet^Rfl: 11 [facility] [employer] 10 billion cell -200 mg capsule^TAKE 1 CAPSULE BY MOUTH DAILY^Disp: 30 capsule^Rfl: 11 (Patient not taking: Reported on 09/07/2022) promethazine (PHENERGAN) 25 mg tablet^take 1 tablet by mouth three times a day if needed for nausea and vomiting^Disp: 60 tablet^Rfl: 3 PAST MEDICAL HISTORY: PAST MEDICAL HISTORY Diagnosis Date 11/2009 Anxiety Arthritis Asthma COPD (chronic obstructive pulmonary disease) ([facility]) Depression Obesity (BMI 30.0-34.9) CHARLES (obstructive sleep apnea) Recurrent UTI Seasonal allergies STD (sexually transmitted disease) Tobacco use disorder 05/18/2021 PAST SURGICAL HISTORY: PAST SURGICAL HISTORY Procedure Laterality Date COLONOSCOPY W/BIOPSY SINGLE/MULTIPLE 03/02/11 ESOPHAGOGASTRODUODENOSCOPY TRANSORAL DIAGNOSTIC 11/14/2012 EGD ESOPHAGOGASTRODUODENOSCOPY TRANSORAL DIAGNOSTIC 06/02/2020 EGD MED INC ALL EX DRUG 11/2009 PAST SURGICAL HISTORY OF WISDOM TEETH FAMILY HISTORY: FAMILY HISTORY Problem Relation Age of Onset Alcohol/Drug Mother Arthritis Mother Asthma Mother Cancer Mother CANCER Hypertension Mother Stroke Mother Cancer Father LUNG CANCER Emphysema Father Asthma Brother Breast Cancer Maternal Aunt Hypertension Brother SOCIAL HISTORY: Social Connections: Not on file REVIEW OF SYSTEMS: GENERAL: No fever, chills, weight loss, or fatigue. ENMT: Negative CARDIOVASCULAR:NO CHEST PAIN, PALPITATIONS, ANKLE EDEMA RESPIRATORY: No chronic cough, wheezing, dyspnea, hemoptysis. GENITOURINARY: SEE HPI MUSCULOSKELETAL:NO CHRONIC BACK PAIN, ARTHRITIS, CHRONIC NECK PAIN SKIN: NO VARICOSE VEINS, RASH, ABNORMAL ITCHING HEME/LYMPH/IMMUNE:Negative for prolonged bleeding, bruising easily or swollen nodes NEUROLOGICAL: NO HEADACHES, NUMBNESS, SEIZURES, STROKE DIABETES: No All other systems reviewed and are negative PHYSICAL EXAMINATION: Blood pressure 134/90, pulse 120, temperature 36.5 C (97.7 F), temperature source Temporal, resp. rate 12, height 170.2 cm (5' 7 ), weight 103 kg (227 lb), SpO2 98 %. GENERAL: WNL nutrition, no deformities, healthy appearing NEURO: Awake, alert and oriented x 3 and Normal gait PSYCH: No signs of depression, anxiety, or agitation ENMT (Ear, Nose, Mouth, Throat): No masses, adenopathy, icterus. Thyroid nonpalpable RESP: NL effort, no retractions or purse-lip breathing. CV: No extremity swelling, varices, edema, pallor, erythema GASTROINTESTINAL: Soft, nontender, nondistended, no masses. HERNIAS: None SKIN: No rash, lesions No palpable lymphadenopathy MUSCULOSKELETAL: Extremities normal. No deformities, edema, clubbing or skin discoloration. PROBLEM LIST REVIEW: Yes LABS: Results for orders placed or performed in visit on 09/07/22 UA DIP, URINE (POC) Result Value Ref Range GLUCOSE UA (POCT) Negative Negative mg/dL BILIRUBIN UA (POCT) Negative Negative KETONE UA (POCT) Negative Negative mg/dL SPECIFIC GRAVITY UA (POCT) 1.015 1.005 - 1.030 HEMOGLOBIN/BLOOD UA (POCT) Negative Negative PH UA (POCT) 6.0 4.5 - 8.0 PROTEIN UA (POCT) Negative Negative mg/dL UROBILINOGEN UA (POCT) 0.2 Normal E.U./dL NITRITE UA (POCT) Negative Negative LEUKOCYTES UA (POCT) Negative Negative COLOR UA (POCT) Light yellow CLARITY UA (POCT) Slightly Cloudy *Note: Due to a large number of results and/or encounters for the requested time period, some results have not been displayed. A complete set of results can be found in Results Review. Urine Culture: Negative PROCEDURES: PVR: 0 ml IMAGING: IMPRESSION/PLAN: 41 year old female with . 1. Frequency of urination - ICD9: 788.41, ICD10: R35.0 (primary diagnosis) 2. Yeast infection - ICD9: 112.9, ICD10: B37.9 3. Smoker - ICD9: 305.1, ICD10: F17.200 > Recommend stop Smoking and get medication for yeast infection I spent a total of 30 minutes on the date of the service which included preparing to see the patient, face to face patient care, completing clinical documentation, obtaining and/or reviewing separately obtained history, performing a medically appropriate examination, counseling and educating the patient/family/caregiver, ordering medications, tests, or procedures, and care coordination. SAV Gomes, MT, RAYMUNDO documented in this encounter [facility] 08-31-2022 Miscellaneous Notes The following approved medication requests have been transmitted electronically. Requested Prescriptions Signed Prescriptions Disp Refills sodium chloride (SALINE MIST) 0.65 % nasal spray 44 mL 0 Sig: Use 1 [place] in the nose as needed for cold/allergy symptoms. Authorizing Provider: PRABHA SPRINGER Dextromethorphan-guaiFENesin (ROBITUSSIN DM) 10-200 mg/5 mL liqd 118 mL 0 Sig: Take 5 mL by mouth every 6 hours as needed. Authorizing Provider: PRABHA SPRINGER APRN.PARK MAINTAINER Patient calls and provider message reviewed. Patient isn't able to afford any OTC medications for supportive therapy. Patient asking if provider could send prescriptions to [facility] to see if insurance would cover saline nasal spray and robitussin dm. Pended per request. Patient reports she will schedule sleep study for the sleepiness. Brii Groves RN TC to pt. LM to call office, ask for triage nurse to get recommendations from PARK MAINTAINER. Yulissa Nicole LPN Can you please call the patient and let her know that based off of her symptoms it sounds like she has a viral illness. I would continue supportive care at home, stay well-hydrated, and eat a bland diet. In regards to her sleepiness she has an order for a sleep study at [facility], she needs to call to schedule appointment. Please let me know if she has any additional questions. Thank you. Prabha Springer APRN.CNP Patient calling to state over the last 2 days she has been really tired and yawning during the day which she states she doesn't usually do. Reports she has been sleeping well each night. Also reports mild cough, some nasal congestion and diarrhea over the last 2 days. Denies fever, headache, nausea, vomiting, sore throat or changes in appetite. Pt asking for advise from PCP or Prabha Springer before making an appt. Please advise. Thank you. documented in this encounter [facility] 08-29-2022 Miscellaneous Notes Patient calling with health information: reviewed information from pt current medication list . Pt stating she usually goes over medications with her pharmacist but all pharmacies are closed today. Patient denies any new or worsening symptoms of which a provider is not aware:Yes pt last took medications yesterday and is confirming that it has been 24 hours. Pt wanting nurse to verify that pt is taking her medications as per pill packet over the phone. Becca Ott LPN documented in this encounter [facility] 08-20-2022 Miscellaneous Notes Patient notified. Juana Lin RN I called patient and informed her. Pt can use OTC Azo to help with the discomfort. Tete Romero APRN.JOSE ROBERTO Patient scheduled with Kera Kapoor 09/07/2022 and asking what she could do in the mean time. Please advise the patient. Patient called in stating she is noting frequency of urination for past 2 days. Denies dysuria. Treated for yeast infection recently. Last UC done 08/12. Patient asked to be transferred to urology after speaking with me to schedule an appointment-FYI Please advise. documented in this encounter [facility] 08-20-2022 Miscellaneous Notes Patient notified. Kristi Cummins RN Left message for patient to return phone call CP pt. +yeast, diflucan sent in. Tete Romero APRN.JOSE ROBERTO documented in this encounter [facility] 08-19-2022 History of Present illness Narrative SUBJECTIVE: Angelica Andujar is an 41 year old woman who presents with vaginitis. Symptoms include discharge described as white, local irritation, and vulvar itching. Onset of symptoms 2 week(s) ago, constant since. Predisposing factors: none Hx of previous vaginitis: rare Sexually active: no Current Outpatient Medications on File Prior to Visit Medication Sig sucralfate (CARAFATE) 1 gram tablet Take 1 tablet by mouth before meals and at bedtime. benzonatate (TESSALON PERLES) 100 mg capsule Take 1 capsule by mouth three times daily as needed for cough. Zinc Acetate, Oral, 50 mg (zinc) cap Take 1 capsule by mouth once daily. ascorbic acid, vitamin C, (VITAMIN C) 500 mg tablet Take 1 tablet by mouth once daily. Cholecalciferol, Vitamin D3, 50 mcg (2,000 unit) cap Take 2 capsules by mouth once daily. acetaminophen (TYLENOL EXTRA STRENGTH) 500 mg tablet Take 1 tablet by mouth every 6 hours as needed for pain for up to 60 doses. albuterol HFA (PROVENTIL HFA, VENTOLIN HFA) 90 mcg/actuation inhaler Inhale 2 Puffs as instructed every 6 hours as needed for wheezing/shortness of breath. beclomethasone (QVAR REDIHALER) 80 mcg/actuation inhaler Inhale 2 Puffs as instructed twice daily. Nicotine Polacrilex [address] 1 Lozenge between cheek and gum as needed. propranolol (INDERAL) 10 mg tablet TAKE 1 TABLET BY MOUTH THREE TIMES A DAY IF TREMORS PERSIST, IF NOT, MAY TRY TO WEAN DOWN DAILY DOSE diclofenac (VOLTAREN ARTHRITIS PAIN) 1 % topical gel Apply 2 g to affected area four times daily. cyclobenzaprine (FLEXERIL) 10 mg tablet Take 1 tablet by mouth three times daily as needed for muscle spasm. fluticasone (FLONASE) 50 mcg/actuation nasal spray Use 2 Sprays in each nostril once daily. Rinse mouth after use. loratadine (CLARITIN) 10 mg tablet Take 1 tablet by mouth once daily. pantoprazole DR (PROTONIX) 40 mg tablet TAKE 1 TABLET BY MOUTH DAILY medroxyPROGESTERone (DEPO-PROVERA) 150 mg/mL injection use as directed intramuscularly EVERY 12 WEEKS naproxen (NAPROSYN) 500 mg tablet Take 1 tablet by mouth twice daily with meals. THEREMS MULTIVITAMIN 400 mcg TAKE 1 TABLET BY MOUTH DAILY [facility] 10 billion cell -200 mg capsule TAKE 1 CAPSULE BY MOUTH DAILY promethazine (PHENERGAN) 25 mg tablet take 1 tablet by mouth three times a day if needed for nausea and vomiting Foot Care Products (GEL BUNION CUSHION) pads 1 Device once daily. Apply pad to area daily as needed multivitamin tablet Take 1 tablet by mouth once daily. lactobacillus acidophilus 100 mg (1 billion cell) cap(s) Take 1 capsule by mouth once daily. lamoTRIgine orally disintegrating (LAMICTAL ODT) 25 mg disintegrating tablet Take 25 mg by mouth once daily. cariprazine (VRAYLAR) 3 mg capsule Take by mouth. benztropine (COGENTIN) 0.5 mg tablet Take 1 mg by mouth twice daily. nicotine (NICODERM) 21 mg/24 hr Apply 1 Patch as directed every 24 hours. Current Facility-Administered Medications on File Prior to Visit Medication medroxyPROGESTERone 150 mg injection (DEPO-PROVERA) ALLERGIES Allergen Reactions Benzalkonium Chlori* Other: See Comments Skin irritations Clindamycin GI Upset Doxycycline GI Upset stomach cramps Flagyl [Metronidazo* Hives Hand Sales Assistant Institutional Sales [Eth* Rash PT HAS SENSITIVE SKIN. O.K. FOR MEDICAL PROFESSIONAL TO USE HAND CONTENT DEVELOPMENT MANAGER AND THEN TOUCH HER, BUT SHE HERSELF DOES NOT USE IT. Iodine Rash Latex, Natural Rubb* Rash Local itching with contact and rash [place] Intolerance Sore throat Meloxicam Unknown Morphine Itching Penicillin Unknown Prednisone Other: See Comments Moodiness, restlessness, states feels like crap all over . Singulair [[place]* Unknown Possible rash Zofran [Ondansetron* Other: See Comments Zofran causes cramping and constipation Social History Tobacco Use Smoking status: Every Day Packs/day: 1.50 Years: 25.00 Pack years: 37.50 Types: Cigarettes Last attempt to quit: 03/09/2021 Years since quittin.4 Smokeless tobacco: Never Vaping Use Vaping Use: Never used Substance Use Topics Alcohol use: Not Currently Comment: Quit 4 months ago. Drug use: No OBJECTIVE: BP 118/72 Wt 230 lb 9.6 oz (104.6 kg) LMP (LMP Unknown) BMI 36.12 kg/m Pelvic: Bimanual exam normal., Negative findings: external genitalia normal, no vulvar lesions, no cervical lesions, normal discharge, well estrogenized, good vaginal support, vault clean with normal discharge ASSESSMENT/PLAN: 1. Vaginal itching - ICD9: 698.1, ICD10: N89.8 - BACTERIAL VAGINOSIS AMPLIFICATION - MISTY / TRICHOMONAS AMPLIFICATION 2. Vaginal discharge - Vulvar hygiene reviewed with patient - Discussed vaginitis, modes of transmission, and rationale for treatment. RTO- As needed or for yearly exams PAP due 2022 Steffi Corona APRN.CNM documented in this encounter [facility] 08-17-2022 Miscellaneous Notes Sent. The following approved medication requests have been transmitted electronically. Requested Prescriptions Signed Prescriptions Disp Refills sucralfate (CARAFATE) 1 gram tablet 120 tablet 1 Sig: Take 1 tablet by mouth before meals and at bedtime. Authorizing Provider: MISBAH MICHEL APRN.CNP Patient updated of provider's message below. Patient is requesting her recent carafate prescription be sent to [facility] and not [facility]. (Pended) Thank you. Left message for pt to contact office. Chacorta Moser LPN She may continue the Protonix and add carafate 1 tablet prior to meals and bedtime. Continue with plan to see GI. The following approved medication requests have been transmitted electronically. Requested Prescriptions Signed Prescriptions Disp Refills sucralfate (CARAFATE) 1 gram tablet 120 tablet 1 Sig: Take 1 tablet by mouth before meals and at bedtime. Authorizing Provider: MISBAH MICHEL APRN.CNP Pt called and is notified of providers message and instructions. Pt voices understanding, but states she isn't seeing GI until 09/17/22. Pt notified to call GI office and ask to be placed on the cancellation list. Pt asking if provider can recommend anything else that would help with the heartburn until she gets in to see GI. Maureen Benjamin RN Message left for pt to call back. Elsy Villegas MA I would not recommend any sleeping medications, as they would cause more side effects than they would help Continue Protonix and follow up with GI for hearrtburn .Win Mejia MD Pt calls to report that she is having trouble falling asleep and staying asleep. Last appt: 07/21/22. Pt also reports she takes Protonix 40 mg and still has heartburn twice a week. Pt reports she called gastro to address this and was advised it would be addressed at appt with gastro in Sep. Pt is asking if pcp has any suggestions concerning heartburn. Adrienne Moctezuma LPN documented in this encounter [facility] 08-16-2022 Miscellaneous Notes Pt notified of results and provider message. Adrienne Moctezuma LPN Left message for patient to return call. Bernadine Gama ----- Message from Ian Ying MD sent at 08/14/2022 1:07 PM EST ----- Urine culture did not show a clear infection. Follow up with PCP, urology, or ETHNOARCHAEOLOGY PROFESSOR if symptoms persist. documented in this encounter [facility] 08-13-2022 Miscellaneous Notes Left VM message with results that PFTs unchanged from 2020. documented in this encounter [facility] 08-12-2022 History of Present illness Narrative Subjective HPI HPI Angelica Andujar is a 41 year old female who presents today for CC of urinary frequency x 3 days. +Diarrhea, and going more frequently everyday. Also c/o wheezing and nasal congestion x 2 weeks. Was having chills last week. Notes that she's bipolar so she can't take oral steroids. Pt has tried albuterol BID, and on maintenance inhaler (Qvar). BP 124/72 Pulse 99 Temp 36.6 C (97.8 F) Resp 18 Wt 104.2 kg (229 lb 12.8 oz) LMP (LMP Unknown) SpO2 98% BMI 35.99 kg/m ALLERGIES Allergen Reactions Benzalkonium Chlori* Other: See Comments Skin irritations Clindamycin GI Upset Doxycycline GI Upset stomach cramps Flagyl [Metronidazo* Hives Hand Sales Assistant Institutional Sales [Eth* Rash PT HAS SENSITIVE SKIN. O.K. FOR MEDICAL PROFESSIONAL TO USE HAND CONTENT DEVELOPMENT MANAGER AND THEN TOUCH HER, BUT SHE HERSELF DOES NOT USE IT. Iodine Rash Latex, Natural Rubb* Rash Local itching with contact and rash [place] Intolerance Sore throat Meloxicam Unknown Morphine Itching Penicillin Unknown Prednisone Other: See Comments Moodiness, restlessness, states feels like crap all over . 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 Adjustment Disorder With Mixed Anxiety and Depressed Mood Chronic Midline Low Back Pain Without Sciatica Cervicalgia Ddd (Degenerative Disc Disease), Cervical Allergic Rhinitis Copd (Chronic Obstructive Pulmonary Disease) (Hcc) Drug Allergy, Multiple Trichomonas Vaginitis Onychomycosis Obesity (Bmi 30.0-34.9) Herpes Simplex Infection of Perianal Skin Tobacco Use Disorder Charles (Obstructive Sleep Apnea) Bipolar Disorder, in Partial Remission, Most Recent Episode Depressed ([facility]) Right Leg Pain Family History Problem Relation Age of Onset Alcohol/Drug Mother Arthritis Mother Asthma Mother Cancer Mother CANCER Hypertension Mother Stroke Mother Cancer Father LUNG CANCER Emphysema Father Asthma Brother Breast Cancer Maternal Aunt Hypertension Brother Social History Tobacco Use Smoking status: Every Day Packs/day: 1.50 Years: 25.00 Pack years: 37.50 Types: Cigarettes Last attempt to quit: 03/09/2021 Years since quittin.4 Smokeless tobacco: Never Vaping Use Vaping Use: Never used Substance Use Topics Alcohol use: Not Currently Comment: Quit 4 months ago. Drug use: No Review of Systems Constitutional: Negative for chills, fever and malaise/fatigue. HENT: Positive for congestion. Negative for ear pain, sinus pain and sore throat. Respiratory: Positive for cough and wheezing. Negative for sputum production and shortness of breath. Cardiovascular: Negative for chest pain. Gastrointestinal: Positive for diarrhea. Negative for abdominal pain, blood in stool (When she strains, occurs intermittentl ywith hemorrhoid), constipation, melena, nausea and vomiting. Genitourinary: Positive for frequency. Negative for dysuria, flank pain, hematuria and urgency. Neurological: Negative for headaches. Objective BP 124/72 Pulse 99 Temp 36.6 C (97.8 F) Resp 18 Wt 104.2 kg (229 lb 12.8 oz) LMP (LMP Unknown) SpO2 98% BMI 35.99 kg/m Physical Exam Constitutional: General: She is not in acute distress. Appearance: Normal appearance. She is not ill-appearing or toxic-appearing. HENT: Head: Normocephalic. Right Ear: Tympanic membrane, ear canal and external ear normal. No drainage. No middle ear effusion. Tympanic membrane is not perforated, erythematous, retracted or bulging. Left Ear: Ear canal normal. No drainage. No middle ear effusion. Tympanic membrane is not perforated, erythematous, retracted or bulging. Nose: No rhinorrhea. Right Sinus: No maxillary sinus tenderness or frontal sinus tenderness. Left Sinus: No maxillary sinus tenderness or frontal sinus tenderness. Mouth/Throat: Pharynx: Uvula midline. No oropharyngeal exudate or posterior oropharyngeal erythema. Tonsils: No tonsillar abscesses. Eyes: General: Lids are normal. Conjunctiva/sclera: Conjunctivae normal. Cardiovascular: Rate and Rhythm: Normal rate and regular rhythm. Heart sounds: S1 normal and S2 normal. No murmur heard. No friction rub. Pulmonary: Effort: Pulmonary effort is normal. Breath sounds: Normal breath sounds. No decreased breath sounds, wheezing, rhonchi or rales. Abdominal: General: Bowel sounds are normal. Palpations: Abdomen is soft. There is no hepatomegaly or splenomegaly. Tenderness: There is no abdominal tenderness. There is no right CVA tenderness, left CVA tenderness, guarding or rebound. Lymphadenopathy: Head: Right side of head: No submental, submandibular, tonsillar, preauricular, posterior auricular or occipital adenopathy. Left side of head: No submental, submandibular, tonsillar, preauricular, posterior auricular or occipital adenopathy. Cervical: Right cervical: No superficial or posterior cervical adenopathy. Left cervical: No superficial or posterior cervical adenopathy. Skin: General: Skin is warm and dry. Findings: No rash. Neurological: Mental Status: She is alert and oriented to person, place, and time. Psychiatric: Behavior: Behavior is cooperative. ASSESSMENT/PLAN: 1. Urinary frequency - ICD9: 788.41, ICD10: R35.0 (primary diagnosis) acute UA completely negative so will refrain from abx at this time. Recommend plenty of fluids and rest. Will send out for culture and adjust treatment if necessary pending results - UA DIP, URINE (POC) - URINE CULTURE 2. Viral URI - ICD9: 465.9, ICD10: J06.9 Reassurance provided regarding benign exam - Discussed viral etiology and rationale for treatment. Suspect viral etiology- symptomatic treatment for relief of associated symptoms. Rest, oral fluids, tylenol or motrin as needed for pain or fever Pt advised to see PCP if symptoms persist or progress. Reviewed red flags with patient and when to seek care sooner. The patient indicates understanding of these issues and agrees with the plan. Ally Bailon PA-C documented in this encounter [facility] 08-06-2022 Miscellaneous Notes Patient returned julianna and went over results from express care provider with understanding. Left message for pt to call back. Rosemary Gillette MA Let patient know their covid19/infleunza test was negative. documented in this encounter [facility] 08-04-2022 Miscellaneous Notes Patient returned call and given information below. Viki Brady RN Called and left message on patients voicemail to return call to the office and ask to speak with a triage nurse. Rafaela Landers Ma The following approved medication requests have been transmitted electronically. Requested Prescriptions Signed Prescriptions Disp Refills Zinc Acetate, Oral, 50 mg (zinc) cap 30 capsule 5 Sig: Take 1 capsule by mouth once daily. Authorizing Provider: MISBAH MICHEL Ma Okay let the patient know that I sent the 50 mg dose of Zinc. The following approved medication requests have been transmitted electronically. Requested Prescriptions Signed Prescriptions Disp Refills Zinc Acetate, Oral, 50 mg (zinc) cap 30 capsule 5 Sig: Take 1 capsule by mouth once daily. Authorizing Provider: MISBAH MICHEL APRN.CNP Patient reports [facility] tells her the zinc 66 mg is non existent. [facility] tells patient they do have the 50 mg zinc if pcp wants to change order and send. documented in this encounter [facility] 08-03-2022 History of Present illness Narrative Subjective Patient came in with complaints of some lower back discomfort and urinary frequency for about a week. Patient denies any other symptoms at this time such as odor or itching pain. Patient just wanted to be checked for urinary tract infection. The history is provided by the patient. No translator interpreter was used. Review of Systems Constitutional: Negative. Skin: Negative. Objective Physical Exam Constitutional: Appearance: Normal appearance. Pulmonary: Effort: Pulmonary effort is normal. Neurological: Mental Status: She is alert. PAST MEDICAL HISTORY Diagnosis Date 11/2009 Anxiety Arthritis Asthma COPD (chronic obstructive pulmonary disease) (HCC) Depression Obesity (BMI 30.0-34.9) CHARLES (obstructive sleep apnea) Recurrent UTI Seasonal allergies STD (sexually transmitted disease) Tobacco use disorder 05/18/2021 PAST SURGICAL HISTORY Procedure Laterality Date COLONOSCOPY W/BIOPSY SINGLE/MULTIPLE 03/02/11 ESOPHAGOGASTRODUODENOSCOPY TRANSORAL DIAGNOSTIC 11/14/2012 EGD ESOPHAGOGASTRODUODENOSCOPY TRANSORAL DIAGNOSTIC 06/02/2020 EGD MED INC ALL EX DRUG 11/2009 PAST SURGICAL HISTORY OF WISDOM TEETH ALLERGIES Benzalkonium Chloride; Clindamycin; Doxycycline; Flagyl [Metronidazole]; Hand Sales Assistant Institutional Sales [Ethyl Alcohol (Skin Cleanser)]; Iodine; Latex, Natural Rubber; [place]; Meloxicam; Morphine; Penicillin; Prednisone; Singulair [Montelukast]; and Zofran [Ondansetron Hcl (Pf)] MEDICATIONS Zinc Sulfate (ZINC-15) 66 mg tab^Take 1 tablet by mouth once daily.^Disp: 30 tablet^Rfl: 5 ascorbic acid, vitamin C, (VITAMIN C) 500 mg tablet^Take 1 tablet by mouth once daily.^Disp: 30 tablet^Rfl: 5 Cholecalciferol, Vitamin D3, 50 mcg (2,000 unit) cap^Take 2 capsules by mouth once daily.^Disp: 56 capsule^Rfl: 11 acetaminophen (TYLENOL EXTRA STRENGTH) 500 mg tablet^Take 1 tablet by mouth every 6 hours as needed for pain for up to 60 doses.^Disp: 60 tablet^Rfl: 3 albuterol HFA (PROVENTIL HFA, VENTOLIN HFA) 90 mcg/actuation inhaler^Inhale 2 Puffs as instructed every 6 hours as needed for wheezing/shortness of breath.^Disp: 18 g^Rfl: 3 beclomethasone (QVAR REDIHALER) 80 mcg/actuation inhaler^Inhale 2 Puffs as instructed twice daily.^Disp: 30 Each^Rfl: 5 Nicotine Polacrilex 4 mg lozenge^Place 1 Lozenge between cheek and gum as needed.^Disp: 108 Lozenge^Rfl: 3 propranolol (INDERAL) 10 mg tablet^TAKE 1 TABLET BY MOUTH THREE TIMES A DAY IF TREMORS PERSIST, IF NOT, MAY TRY TO WEAN DOWN DAILY DOSE^Disp: 84 tablet^Rfl: 5 diclofenac (VOLTAREN ARTHRITIS PAIN) 1 % topical gel^Apply 2 g to affected area four times daily.^Disp: 50 g^Rfl: 0 cyclobenzaprine (FLEXERIL) 10 mg tablet^Take 1 tablet by mouth three times daily as needed for muscle spasm.^Disp: 18 tablet^Rfl: 0 loratadine (CLARITIN) 10 mg tablet^Take 1 tablet by mouth once daily.^Disp: 28 tablet^Rfl: [address] (PROTONIX) 40 mg tablet^TAKE 1 TABLET BY MOUTH DAILY^Disp: 30 tablet^Rfl: 11 medroxyPROGESTERone (DEPO-PROVERA) 150 mg/mL injection^use as directed intramuscularly EVERY 12 WEEKS^Disp: 1 mL^Rfl: 4 THEREMS MULTIVITAMIN 400 mcg^TAKE 1 TABLET BY MOUTH DAILY^Disp: 30 tablet^Rfl: 11 [facility] 10 billion cell -200 mg capsule^TAKE 1 CAPSULE BY MOUTH DAILY^Disp: 30 capsule^Rfl: 11 promethazine (PHENERGAN) 25 mg tablet^take 1 tablet by mouth three times a day if needed for nausea and vomiting^Disp: 60 tablet^Rfl: 3 multivitamin tablet^Take 1 tablet by mouth once daily.^Disp: 30 tablet^Rfl: 11 lactobacillus acidophilus 100 mg (1 billion cell) cap(s)^Take 1 capsule by mouth once daily.^Disp: 30 capsule^Rfl: 11 lamoTRIgine orally disintegrating (LAMICTAL ODT) 25 mg disintegrating tablet^Take 25 mg by mouth once daily. ^Disp: ^Rfl: cariprazine (VRAYLAR) 3 mg capsule^Take by mouth.^Disp: ^Rfl: benztropine (COGENTIN) 0.5 mg tablet^Take 1 mg by mouth twice daily.^Disp: ^Rfl: nicotine (NICODERM) 21 mg/24 hr^Apply 1 Patch as directed every 24 hours.^Disp: 30 Patch^Rfl: 3 fluticasone (FLONASE) 50 mcg/actuation nasal spray^Use 2 Sprays in each nostril once daily. Rinse mouth after use.^Disp: 1 Each^Rfl: 0 (Patient not taking: No sig reported) naproxen (NAPROSYN) 500 mg tablet^Take 1 tablet by mouth twice daily with meals.^Disp: 60 tablet^Rfl: 6 (Patient not taking: Reported on 07/22/2022) Foot Care Products (GEL BUNION CUSHION) pads^1 Device once daily. Apply pad to area daily as needed^Disp: 14 Each^Rfl: 2 (Patient not taking: No sig reported) FAMILY HISTORY Problem Relation Age of Onset Alcohol/Drug Mother Arthritis Mother Asthma Mother Cancer Mother CANCER Hypertension Mother Stroke Mother Cancer Father LUNG CANCER Emphysema Father Asthma Brother Breast Cancer Maternal Aunt Hypertension Brother Social History Tobacco Use Smoking status: Every Day Packs/day: 1.50 Years: 25.00 Pack years: 37.50 Types: Cigarettes Last attempt to quit: 03/09/2021 Years since quittin.4 Smokeless tobacco: Never Vaping Use Vaping Use: Never used Substance Use Topics Alcohol use: Not Currently Comment: Quit 4 months ago. Drug use: No ASSESSMENT/PLAN: 1. Urinary frequency - ICD9: 788.41, ICD10: R35.0 At this time patient was just instructed to monitor for symptoms of change or worsening. Patient was okay with this care plan. - UA DIP, URINE (POC) Yeni Hameed APRN.PARK MAINTAINER documented in this encounter [facility] 07-22-2022 History of Present illness Narrative Patient identified by name and date of . Angelica Andujar is here for a Depo Provera injection. Patient brought medication. Date last injected: 04/29/2022 Depo-Provera, 150 mg, administered IM left upper quadrant gluteus, Lot # [id number], expiration date 01/2024. Depo-Provera was given without incident. Date of last menses: No LMP recorded (lmp unknown). Patient has had an injection. Irregular bleeding - No Menses ceased - No STD prevention discussed: Yes Patient instructed to return to clinic in 12 weeks. [email or web address] Provider Teodora Wen DO was present in office at time of injection. Elida Osei LPN documented in this encounter [facility] 07-21-2022 History of Present illness Narrative Jose Francisco is a 41 year old female who presents today with: Patient presents with: Acute Visit: continued fatique HISTORY OF PRESENT ILLNESS: Angelica Andujar is a 41 year old female. Patient presents with: Acute Visit: continued fatique Here in the office for ongoing fatigue. Was just seen in the ER. Lab work up was within normal limits. Went to express care flu/COVID/mono testing was all negative. Has had increased sadness. Refers she got kicked out of [facility] for not to tithing enough. Refers she got kicked out of the [facility] for bad behavior. Has a lot going on with her family relationships. Seeing Dip[facility] for counseling, next appt about 2 weeks. No SI/HI. Follows with the counseling center for psychiatry. Next follow-up 1-2 weeks, Dr. Melgar. PAST MEDICAL HISTORY: PAST MEDICAL HISTORY Diagnosis Date 11/2009 Anxiety Arthritis Asthma COPD (chronic obstructive pulmonary disease) (HCC) Depression Obesity (BMI 30.0-34.9) CHARLES (obstructive sleep apnea) Recurrent UTI Seasonal allergies STD (sexually transmitted disease) Tobacco use disorder 05/18/2021 PAST SURGICAL HISTORY Procedure Laterality Date COLONOSCOPY W/BIOPSY SINGLE/MULTIPLE 03/02/11 ESOPHAGOGASTRODUODENOSCOPY TRANSORAL DIAGNOSTIC 11/14/2012 EGD ESOPHAGOGASTRODUODENOSCOPY TRANSORAL DIAGNOSTIC 06/02/2020 EGD MED INC ALL EX DRUG 11/2009 PAST SURGICAL HISTORY OF WISDOM TEETH ALLERGIES Benzalkonium Chloride; Clindamycin; Doxycycline; Flagyl [Metronidazole]; Hand Sales Assistant Institutional Sales [Ethyl Alcohol (Skin Cleanser)]; Iodine; Latex, Natural Rubber; [place]; Meloxicam; Morphine; Penicillin; Prednisone; Singulair [Montelukast]; and Zofran [Ondansetron Hcl (Pf)] MEDICATIONS Current Outpatient Medications Medication Sig Cholecalciferol, Vitamin D3, 50 mcg (2,000 unit) cap Take 2 capsules by mouth once daily. acetaminophen (TYLENOL EXTRA STRENGTH) 500 mg tablet Take 1 tablet by mouth every 6 hours as needed for pain for up to 60 doses. albuterol HFA (PROVENTIL HFA, VENTOLIN HFA) 90 mcg/actuation inhaler Inhale 2 Puffs as instructed every 6 hours as needed for wheezing/shortness of breath. beclomethasone (QVAR REDIHALER) 80 mcg/actuation inhaler Inhale 2 Puffs as instructed twice daily. nicotine (NICODERM) 21 mg/24 hr Apply 1 Patch as directed every 24 hours. Nicotine Polacrilex [address] 1 Lozenge between cheek and gum as needed. propranolol (INDERAL) 10 mg tablet TAKE 1 TABLET BY MOUTH THREE TIMES A DAY IF TREMORS PERSIST, IF NOT, MAY TRY TO WEAN DOWN DAILY DOSE diclofenac (VOLTAREN ARTHRITIS PAIN) 1 % topical gel Apply 2 g to affected area four times daily. (Patient not taking: No sig reported) cyclobenzaprine (FLEXERIL) 10 mg tablet Take 1 tablet by mouth three times daily as needed for muscle spasm. (Patient not taking: No sig reported) fluticasone (FLONASE) 50 mcg/actuation nasal spray Use 2 Sprays in each nostril once daily. Rinse mouth after use. (Patient not taking: No sig reported) loratadine (CLARITIN) 10 mg tablet Take 1 tablet by mouth once daily. pantoprazole DR (PROTONIX) 40 mg tablet TAKE 1 TABLET BY MOUTH DAILY medroxyPROGESTERone (DEPO-PROVERA) 150 mg/mL injection use as directed intramuscularly EVERY 12 WEEKS naproxen (NAPROSYN) 500 mg tablet Take 1 tablet by mouth twice daily with meals. THEREMS MULTIVITAMIN 400 mcg TAKE 1 TABLET BY MOUTH DAILY [facility] 10 billion cell -200 mg capsule TAKE 1 CAPSULE BY MOUTH DAILY promethazine (PHENERGAN) 25 mg tablet take 1 tablet by mouth three times a day if needed for nausea and vomiting Foot Care Products (GEL BUNION CUSHION) pads 1 Device once daily. Apply pad to area daily as needed (Patient not taking: No sig reported) multivitamin tablet Take 1 tablet by mouth once daily. lactobacillus acidophilus 100 mg (1 billion cell) cap(s) Take 1 capsule by mouth once daily. ascorbic acid (VITAMIN C ORAL) Take by mouth. (Patient not taking: No sig reported) lamoTRIgine orally disintegrating (LAMICTAL ODT) 25 mg disintegrating tablet Take 25 mg by mouth once daily. cariprazine (VRAYLAR) 3 mg capsule Take by mouth. benztropine (COGENTIN) 0.5 mg tablet Take 1 mg by mouth twice daily. No current facility-administered medications for this visit. FAMILY HISTORY Problem Relation Age of Onset Alcohol/Drug Mother Arthritis Mother Asthma Mother Cancer Mother CANCER Hypertension Mother Stroke Mother Cancer Father LUNG CANCER Emphysema Father Asthma Brother Breast Cancer Maternal Aunt Hypertension Brother Social History Tobacco Use Smoking status: Every Day Packs/day: 1.50 Years: 25.00 Pack years: 37.50 Types: Cigarettes Last attempt to quit: 03/09/2021 Years since quittin.3 Smokeless tobacco: Never Vaping Use Vaping Use: Never used Substance Use Topics Alcohol use: Not Currently Comment: Quit 4 months ago. Drug use: No REVIEW OF SYSTEMS GENERAL: fatigue HEENT: Negative for frequent or significant headaches, No changes in hearing or vision. NECK: Negative for lumps, goiter, pain and significant neck swelling RESPIRATORY: Negative for cough, hemoptysis, wheezing, dyspnea or shortness of breath CARDIOVASCULAR: Negative for chest pain, leg swelling, orthopnea, or palpitations GI: No nausea, vomiting, or diarrhea/constipation. No hematochezia/melena. No heartburn or reflux symptoms. : No history of dysuria, frequency or incontinence MUSCULOSKELETAL: Negative for joint pain or swelling. SKIN: Negative for lesions, rash, and itching ENDOCRINE: Negative for cold or heat intolerance, polyuria, polydipsia and goiter NEURO: No history of headaches, syncope, paralysis, seizures or tremors MOOD: + Sadness EXAM: BP 140/86 Pulse 108 Resp 16 Wt 102.5 kg (226 lb) LMP (LMP Unknown) SpO2 96% BMI 35.40 kg/m PHYSICAL EXAM: General Appearance: Well appearing, alert, in no acute distress, well-hydrated, well nourished. Skin: Skin color, texture, turgor normal, no suspicious rashes or lesions. Head: Normocephalic, no masses, lesions, tenderness or abnormalities. Eyes: Anicteric sclera. Extraocular movements are intact. Ears: External ears normal, canals clear. TM's pearly crooks. Neck: Supple, no adenopathy; thyroid symmetric, normal size, no bruits. Lungs: Lungs clear to auscultation. No wheezing, rhonchi, rales. Heart: RRR without murmur, gallop, or rubs. No ectopy. Extremities: No deformities, edema, skin discoloration, clubbing or cyanosis. Good capillary refill. Peripheral Pulses: Normal, Capillary refill <2secs, strong peripheral pulses, Pulses palpable. Neurologic: Gait normal. Sensation grossly intact. ASSESSMENT/PLAN: 1. Fatigue, unspecified type - ICD9: 780.79, ICD10: R53.83 (primary diagnosis) - Unknown cause of symptoms, work up normal. - Per patient request may start Vit C daily. - ASCORBIC ACID (VITAMIN C) 500 MG TABLET 2. Current mild episode of major depressive disorder, unspecified whether recurrent (HCC) - ICD9: 296.21, ICD10: F32.0 - Due to current regiment of psychiatric medications recommend discussing increased sadness with psychiatrist for medication adjustments. - Recommend contacting therapist for earlier appointment. Follow-up as needed or sooner if symptoms get worse or do not improve. Discussed treatment plan and patient voices understanding. Patient's questions answered appropriately. Medications and potential side effects were discussed and patient voices understanding. Prabha Springer APRN.CNP This note was partially generated using [employer] voice recognition system. Note was reviewed for accuracy. There may be minor misspellings or grammar miscues with [employer] voice recognition. documented in this encounter [facility] 07-21-2022 Instructions Prabha Springer APRN.CNP - 07/21/2022 9:50 AM EST Recommend contacting psychiatrist to discuss concerns and medication. May add on Vitamin C once daily. Keep up coming appointment with counselor Follow up as needed. documented in this encounter [facility] 07-19-2022 Miscellaneous Notes Closing encounter, will start new encounter once forms are received. Rafaela Landers Ma Patient returned call and given provider's message below with verbalized understanding. Patient will call [facility] and give them pcp fax number. Called and left message on patients voicemail to return call to the office and ask to speak with a FM triage nurse. Rafaela Landers Ma Will call pt tomorrow to update if office received forms and regarding Rx. At this time no forms received in office. Rafaela Landers Ma OK to change vit D to 4000 IU daily Win Mejia MD -Patient calling to request Vitamin D 3 be increased to 4000 International Units daily through the winter months. She says she gets worsening depression due to decreased sun light. -She is going to be requesting Tarisa fax a form to PCP office to be completed so her gas is not turned off. Negrita Grant, RN documented in this encounter [facility] 07-19-2022 Miscellaneous Notes Noted Win Mejia MD Patient returned call and appt made for 07/21/22. Pt unable to come in sooner due to other appts. During call she also reports x 3 episodes of diarrhea in 3 hours. Asking what she should do. Encouraged hydration; to ER for severe symptoms such as dizziness or weakness. Pt reports she has a chronic comprehension problem and has difficulty remembering instructions. Encouraged pt to call PCP office for any additional questions. Viki Brady RN Left detailed message for patient. Forward to [facility] office. Ashlyn Hameed MA Please assist patient in making an appt with PCP or [facility] for an office visit. Patient of Dr. Mejia's calling. She was seen recently at [facility] on 07/14 for a sore throat, fatigue and chills for several weeks. Howard, Strep, covid and flu were negative recently. Patient asked if her recent K+level was normal at last [facility] ER visit. Pt informed that it was normal. Patient requesting provider to order any additional labs for her that may be recommended due to continued fatigue. Pt aware that PCP team is not in office today and pt requested [facility] provider to advise, if agreeable. Pt requests that office leave a detailed message for her if she does not answer her phone. Thank you. documented in this encounter [facility] 07-19-2022 History of Present illness Narrative Episode Visit Count: 2 Therapist That Will Accept/Oversee The Plan Of Care: Marco A Garcias Start of Care Date: 06/15/22 Onset Date: 01/13/22 Plan of Care Certification Date: 06/15/22 Next Certification Due Date: 08/15/22 [facility] PHYSICAL THERAPY TREATMENT NOTE ASSESSMENT: Angelica Andujar tolerated the session with no issues. She demonstrated difficulty with RLE pain. The patient will continue to benefit from ongoing skilled physical therapy to progress toward set goals. Patient is due for progress report, but due to no follow up until today since initial eval we will withhold that until 08/09 to better gauge any progress made. PLAN FOR NEXT VISIT: Progress exercises per tolerance SUBJECTIVE: Patient Reason for Visit: Pt returns after being seen first a month ago. She has battled through some illnesses. Negative for COVID, flu, and RSV. Feels the calf is a little better, but functionally no changes Pain: Pain Pain Level: 4 Pain Location: Leg - Right;Calf - Right Description: Sore;Tightness Frequency: Continuous OBJECTIVE MEASURES WITH LEVEL OF FUNCTION: TREATMENT: Therapeutic Exercise: 1: SKC [id number] 2: DKC [id number] 3: *Strap assisted gastroc stretch 3x30 sec 4: *Standing calf raises 3x20 5: *Standing dorsiflexion 3x20 Skilled Intervention: Patient was educated in proper exercise technique and purpose for exercises. Skilled judgment was provided in selection of appropriate interventions. Provided written instruction for home exercise program to facilitate proper performance and compliance. Correct performance of therapeutic exercises was facilitated with verbal, visual, and tactile cuing. Manual Therapy: 1: STM to R gastroc and soleus complex Skilled Intervention: Manual skills to improve joint mobility, ROM, and decrease pain. Utilized anatomy knowledge of the therapist, and assessment of patient's response to intervention. Billing Therapeutic Exercise Treatment Minutes: 15 Manual TherapyTreatment Minutes: 10 Total Treatment Time Minutes (timed/untimed): 25 Marco A Garcias PT documented in this encounter [facility] 07-19-2022 History of Present illness Narrative PULM FUNCTION SMARTBLOCK: Provider: Juana Gallegos PA-C Assisting Tech: NANCY Wilson Spirometry: 1 documented in this encounter [facility] 07-15-2022 Miscellaneous Notes Howard negative. Call to patient and she verbalizes understanding documented in this encounter [facility] 07-15-2022 Miscellaneous Notes Patient notified.Azra Elias LPN Please notify of negative influenza and covid test. Continue comfort measures for symptoms as you would for a cold. Any worsening symptoms follow up with PCP or ER. Geovanna Carmichael APRN.JOSE ROBERTO documented in this encounter [facility] 07-14-2022 History of Present illness Narrative Patient presents with: Sore Throat: ST, fatigue, chills x several weeks HPI: Feeling sick for 3 weeks. Sore throat started yesterday. Positive symptoms: Sore throat, Chills, Fatigue, Cough, Nasal Congestion, Rhinorrhea, Diarrhea, Negative symptoms: Vomiting, Fever, OTC: probiotic, gatorade Has not had known COVID. Treated in the hospital for gastroenteritis 2 weeks ago. Prescribed cefdinir for dental infection but did not take it. She is still feeling worn out and wonders if she could have mono. PAST MEDICAL HISTORY Diagnosis Date 11/2009 Anxiety Arthritis Asthma COPD (chronic obstructive pulmonary disease) ([facility]) Depression Obesity (BMI 30.0-34.9) CHARLES (obstructive sleep apnea) Recurrent UTI Seasonal allergies STD (sexually transmitted disease) Tobacco use disorder 05/18/2021 MEDICATIONS: Current Outpatient Medications Medication Sig acetaminophen (TYLENOL EXTRA STRENGTH) 500 mg tablet Take 1 tablet by mouth every 6 hours as needed for pain for up to 60 doses. albuterol HFA (PROVENTIL HFA, VENTOLIN HFA) 90 mcg/actuation inhaler Inhale 2 Puffs as instructed every 6 hours as needed for wheezing/shortness of breath. beclomethasone (QVAR REDIHALER) 80 mcg/actuation inhaler Inhale 2 Puffs as instructed twice daily. Nicotine Polacrilex [address] 1 Lozenge between cheek and gum as needed. Cholecalciferol, Vitamin D3, 50 mcg (2,000 unit) cap Take 1 capsule by mouth once daily. propranolol (INDERAL) 10 mg tablet TAKE 1 TABLET BY MOUTH THREE TIMES A DAY IF TREMORS PERSIST, IF NOT, MAY TRY TO WEAN DOWN DAILY DOSE loratadine (CLARITIN) 10 mg tablet Take 1 tablet by mouth once daily. pantoprazole DR (PROTONIX) 40 mg tablet TAKE 1 TABLET BY MOUTH DAILY medroxyPROGESTERone (DEPO-PROVERA) 150 mg/mL injection use as directed intramuscularly EVERY 12 WEEKS naproxen (NAPROSYN) 500 mg tablet Take 1 tablet by mouth twice daily with meals. THEREMS MULTIVITAMIN 400 mcg TAKE 1 TABLET BY MOUTH DAILY [facility] 10 billion cell -200 mg capsule TAKE 1 CAPSULE BY MOUTH DAILY promethazine (PHENERGAN) 25 mg tablet take 1 tablet by mouth three times a day if needed for nausea and vomiting multivitamin tablet Take 1 tablet by mouth once daily. lactobacillus acidophilus 100 mg (1 billion cell) cap(s) Take 1 capsule by mouth once daily. benztropine (COGENTIN) 0.5 mg tablet Take 1 mg by mouth twice daily. nicotine (NICODERM) 21 mg/24 hr Apply 1 Patch as directed every 24 hours. diclofenac (VOLTAREN ARTHRITIS PAIN) 1 % topical gel Apply 2 g to affected area four times daily. (Patient not taking: No sig reported) cyclobenzaprine (FLEXERIL) 10 mg tablet Take 1 tablet by mouth three times daily as needed for muscle spasm. (Patient not taking: No sig reported) fluticasone (FLONASE) 50 mcg/actuation nasal spray Use 2 Sprays in each nostril once daily. Rinse mouth after use. (Patient not taking: No sig reported) Foot Care Products (GEL BUNION CUSHION) pads 1 Device once daily. Apply pad to area daily as needed (Patient not taking: No sig reported) ascorbic acid (VITAMIN C ORAL) Take by mouth. (Patient not taking: No sig reported) lamoTRIgine orally disintegrating (LAMICTAL ODT) 25 mg disintegrating tablet Take 25 mg by mouth once daily. cariprazine (VRAYLAR) 3 mg capsule Take by mouth. No current facility-administered medications for this visit. ALLERGIES: ALLERGIES Allergen Reactions Benzalkonium Chlori* Other: See Comments Skin irritations Clindamycin GI Upset Doxycycline GI Upset stomach cramps Flagyl [Metronidazo* Hives Hand Sales Assistant Institutional Sales [Eth* Rash PT HAS SENSITIVE SKIN. O.K. FOR MEDICAL PROFESSIONAL TO USE HAND CONTENT DEVELOPMENT MANAGER AND THEN TOUCH HER, BUT SHE HERSELF DOES NOT USE IT. Iodine Rash Latex, Natural Rubb* Rash Local itching with contact and rash [place] Intolerance Sore throat Meloxicam Unknown Morphine Itching Penicillin Unknown Prednisone Other: See Comments Moodiness, restlessness, states feels like crap all over . Singulair [Monteluk* Unknown Possible rash Zofran [Ondansetron* Other: See Comments Zofran causes cramping and constipation VITALS: BP 122/82 Pulse 98 Temp 36.7 C (98 F) (Tympanic) Resp 16 Wt 102.9 kg (226 lb 12.8 oz) LMP (LMP Unknown) SpO2 99% BMI 35.00 kg/m PHYSICAL EXAM: GEN: mildly ill appearing HEENT: PERRL, EOMI, conjunctiva clear Ears: canals clear. TMs without erythema, bulge, or effusion Sinuses: non-tender frontal sinus, non-tender maxillary sinuses Throat: moist mucous membranes, mild erythema, no exudate Neck: supple, no thyromegaly, no lymphadenopathy HEART: regular rate and rhythm, no murmurs LUNGS: clear to auscultation, no wheezes or crackles, no increased WOB ASSESSMENT/PLAN: 1. Sore throat - ICD9: 462, ICD10: J02.9 (primary diagnosis) - COVID WITH FLUA+B, ROUTINE - STREP A MOLECULAR (POC) - negative. - MONOTEST, INFECTIOUS MONO 2. Fatigue, unspecified type - ICD9: 780.79, ICD10: R53.83 - COVID WITH FLUA+B, ROUTINE - MONOTEST, INFECTIOUS MONO -she will return for lab tomorrow. Ian Ying MD documented in this encounter [facility] 07-09-2022 History of Present illness Narrative This is a 41 year old female who presents today with: Patient presents with: Follow Up: ER follow up HISTORY OF PRESENT ILLNESS: Angelica Andujar is a 41 year old female. Patient presents with: Follow Up: ER follow up HOSPITAL/ER FOLLOW UP: Reason for visit: Diarrhea/vomiting Which facility: [facility] Date of visit: 07/03/2022 Diagnosis: Gastroenteritis Testing done: CBC and CMP relatively normal. Rapid COVID was negative. Treatment given: Was given liter of IV fluids. Current symptoms: Having diarrhea twice daily which has improve. Ongoing fatigue. No abdominal pain, N/V. Using probiotic and yogurt which has helped symptoms. No fever or chills. Has been tolerating regular diet without any issues. Has up coming appointment with Eloisa, Dr. Mata at [facility]. Dental Decay: [facility] given Cefdinir 300 mg. Refers she has not started medication due to upset stomach. Seeing Daniela Lea cannot get into dentist until September. Day time sleepiness, will have lack of energy. Unsure if she snores at bedtime. Had sleep study ordered but needs refaxed to [facility]. PAST MEDICAL HISTORY: PAST MEDICAL HISTORY Diagnosis Date 11/2009 Anxiety Arthritis Asthma COPD (chronic obstructive pulmonary disease) ([facility]) Depression Obesity (BMI 30.0-34.9) CHARLES (obstructive sleep apnea) Recurrent UTI Seasonal allergies STD (sexually transmitted disease) Tobacco use disorder 05/18/2021 PAST SURGICAL HISTORY Procedure Laterality Date COLONOSCOPY W/BIOPSY SINGLE/MULTIPLE 03/02/11 ESOPHAGOGASTRODUODENOSCOPY TRANSORAL DIAGNOSTIC 11/14/2012 EGD ESOPHAGOGASTRODUODENOSCOPY TRANSORAL DIAGNOSTIC 06/02/2020 EGD MED INC ALL EX DRUG 11/2009 PAST SURGICAL HISTORY OF WISDOM TEETH ALLERGIES Benzalkonium Chloride; Clindamycin; Doxycycline; Flagyl [Metronidazole]; Hand Sales Assistant Institutional Sales [Ethyl Alcohol (Skin Cleanser)]; Iodine; Latex, Natural Rubber; [place]; Meloxicam; Morphine; Penicillin; Prednisone; Singulair [Montelukast]; and Zofran [Ondansetron Hcl (Pf)] MEDICATIONS Current Outpatient Medications Medication Sig albuterol HFA (PROVENTIL HFA, VENTOLIN HFA) 90 mcg/actuation inhaler Inhale 2 Puffs as instructed every 6 hours as needed for wheezing/shortness of breath. beclomethasone (QVAR REDIHALER) 80 mcg/actuation inhaler Inhale 2 Puffs as instructed twice daily. nicotine (NICODERM) 21 mg/24 hr Apply 1 Patch as directed every 24 hours. Nicotine Polacrilex [address] 1 Lozenge between cheek and gum as needed. Cholecalciferol, Vitamin D3, 50 mcg (2,000 unit) cap Take 1 capsule by mouth once daily. propranolol (INDERAL) 10 mg tablet TAKE 1 TABLET BY MOUTH THREE TIMES A DAY IF TREMORS PERSIST, IF NOT, MAY TRY TO WEAN DOWN DAILY DOSE diclofenac (VOLTAREN ARTHRITIS PAIN) 1 % topical gel Apply 2 g to affected area four times daily. (Patient not taking: No sig reported) cyclobenzaprine (FLEXERIL) 10 mg tablet Take 1 tablet by mouth three times daily as needed for muscle spasm. (Patient not taking: No sig reported) fluticasone (FLONASE) 50 mcg/actuation nasal spray Use 2 Sprays in each nostril once daily. Rinse mouth after use. (Patient not taking: No sig reported) loratadine (CLARITIN) 10 mg tablet Take 1 tablet by mouth once daily. pantoprazole DR (PROTONIX) 40 mg tablet TAKE 1 TABLET BY MOUTH DAILY medroxyPROGESTERone (DEPO-PROVERA) 150 mg/mL injection use as directed intramuscularly EVERY 12 WEEKS naproxen (NAPROSYN) 500 mg tablet Take 1 tablet by mouth twice daily with meals. THEREMS MULTIVITAMIN 400 mcg TAKE 1 TABLET BY MOUTH DAILY [facility] 10 billion cell -200 mg capsule TAKE 1 CAPSULE BY MOUTH DAILY promethazine (PHENERGAN) 25 mg tablet take 1 tablet by mouth three times a day if needed for nausea and vomiting acetaminophen (TYLENOL EXTRA STRENGTH) 500 mg tablet Take 1 tablet by mouth every 6 hours as needed for Pain. (Patient not taking: No sig reported) Foot Care Products (GEL BUNION CUSHION) pads 1 Device once daily. Apply pad to area daily as needed (Patient not taking: No sig reported) multivitamin tablet Take 1 tablet by mouth once daily. lactobacillus acidophilus 100 mg (1 billion cell) cap(s) Take 1 capsule by mouth once daily. ascorbic acid (VITAMIN C ORAL) Take by mouth. (Patient not taking: No sig reported) lamoTRIgine orally disintegrating (LAMICTAL ODT) 25 mg disintegrating tablet Take 25 mg by mouth once daily. cariprazine (VRAYLAR) 3 mg capsule Take by mouth. benztropine (COGENTIN) 0.5 mg tablet Take 1 mg by mouth twice daily. No current facility-administered medications for this visit. FAMILY HISTORY Problem Relation Age of Onset Alcohol/Drug Mother Arthritis Mother Asthma Mother Cancer Mother CANCER Hypertension Mother Stroke Mother Cancer Father LUNG CANCER Emphysema Father Asthma Brother Breast Cancer Maternal Aunt Hypertension Brother Social History Tobacco Use Smoking status: Every Day Packs/day: 1.50 Years: 25.00 Pack years: 37.50 Types: Cigarettes Last attempt to quit: 03/09/2021 Years since quittin.3 Smokeless tobacco: Never Vaping Use Vaping Use: Never used Substance Use Topics Alcohol use: Not Currently Comment: Quit 4 months ago. Drug use: No REVIEW OF SYSTEMS GENERAL: + Day time sleepiness HEENT: + Tooth Pain NECK: Negative for lumps, goiter, pain and significant neck swelling RESPIRATORY: Negative for cough, hemoptysis, wheezing, dyspnea or shortness of breath CARDIOVASCULAR: Negative for chest pain, leg swelling, orthopnea, or palpitations GI: + Diarrhea : No history of dysuria, frequency or incontinence MUSCULOSKELETAL: Negative for joint pain or swelling. SKIN: Negative for lesions, rash, and itching ENDOCRINE: Negative for cold or heat intolerance, polyuria, polydipsia and goiter NEURO: No history of headaches, syncope, paralysis, seizures or tremors MOOD: Negative for depression, anxiety, or suicidal ideation. EXAM: BP 126/86 Pulse 103 Resp 16 Wt 103 kg (227 lb) LMP (LMP Unknown) SpO2 96% BMI 35.03 kg/m PHYSICAL EXAM: General Appearance: Well appearing, alert, in no acute distress, well-hydrated, well nourished. Skin: Skin color, texture, turgor normal, no suspicious rashes or lesions. Head: Normocephalic, no masses, lesions, tenderness or abnormalities. Eyes: Anicteric sclera.Extraocular movements are intact. Oropharynx: Positive findings: dental caries. Lungs: Lungs clear to auscultation. No wheezing, rhonchi, rales. Heart: RRR without murmur, gallop, or rubs. No ectopy. Abdomen: Normal abdominal exam, Abdomen soft, non-tender. Bowel sounds normal. No masses, organomegaly, Negative CVA tenderness. Peripheral Pulses: Normal, Capillary refill <2secs, strong peripheral pulses, Pulses palpable. Neurologic: Gait normal. Reflexes normal and symmetric. Sensation grossly intact. ASSESSMENT/PLAN: 1. Hospital discharge follow-up - ICD9: V67.59, ICD10: Z09 (primary diagnosis) - Improvement since hospital discharge. 2. Viral gastroenteritis - ICD9: 008.8, ICD10: A08.4 - Continue supportive care at home. - Keep up coming appointment with GI. 3. Tooth decay - ICD9: 521.00, ICD10: K02.9 - Start cefdinir as prescribed. - May use warm salt water swishes. - ACETAMINOPHEN 500 MG TABLET 4. Daytime sleepiness - ICD9: 780.54, ICD10: R40.0 - Recommend sleep study as discussed in the past. Follow-up as needed or sooner if symptoms get worse or do not improve. Discussed treatment plan and patient voices understanding. Patient's questions answered appropriately. Medications and potential side effects were discussed and patient voices understanding. Prabha Springer APRN.CNP This note was partially generated using [employer] voice recognition system. Note was reviewed for accuracy. There may be minor misspellings or grammar miscues with [employer] voice recognition. documented in this encounter [facility] 07-09-2022 Instructions Prabha Springer APRN.CNP - 07/09/2022 10:15 AM EDT Start Antibiotic for teeth, wait 2 hours after taking prescription medication packet. Schedule appointment with Dentist as soon as possible. May use warm salt water swishes to help with pain/canker sore. Keep up coming appointment with Dr. Mata. Eat a bland diet advance as tolerated. Stay well hydrated. Follow up as needed. Office note will be faxed to [facility] so you can schedule sleep study. documented in this encounter [facility] 07-06-2022 Miscellaneous Notes Noted Win Mejia MD Pt called in and reports she has a white puffy lesion on the side of her tongue that has been hurting for a week now. She asked if it could be related to recent Herpes diagnosis. I told the she would need to be seen. Pt is going to come to the [facility]. Patient calling and states she was seen at [facility] ER last Tuesday and was told she has gastroenteritis. Referral has been placed to Dr. Mata. Patient waiting for their office to contact her to schedule appt. Patient asking PCP if it is normal for her to have a metallic taste in her mouth due to gastroenteritis? She reports many things taste like dish soap. Please advise at [phone]. Thank you. documented in this encounter [facility] 07-05-2022 History of Present illness Narrative Images from the original note were not included. Subjective Patient came in with complaints of open sore on right side of tongue. Patient says its been there couple days. Patient says she has not cleansed it or gargled with anything yet. Patient says she also has a couple cavities she is looking to get taking care of. The history is provided by the patient. No translator interpreter was used. Mouth/Lip Problem Review of Systems Constitutional: Negative. Skin: Negative. Objective Physical Exam Constitutional: Appearance: Normal appearance. HENT: Mouth/Throat: Comments: Patient has small opaque colored area consistent with type of canker sore. Pulmonary: Effort: Pulmonary effort is normal. Neurological: Mental Status: She is alert. PAST MEDICAL HISTORY Diagnosis Date 11/2009 Anxiety Arthritis Asthma COPD (chronic obstructive pulmonary disease) (HCC) Depression Obesity (BMI 30.0-34.9) CHARLES (obstructive sleep apnea) Recurrent UTI Seasonal allergies STD (sexually transmitted disease) Tobacco use disorder 05/18/2021 PAST SURGICAL HISTORY Procedure Laterality Date COLONOSCOPY W/BIOPSY SINGLE/MULTIPLE 03/02/11 ESOPHAGOGASTRODUODENOSCOPY TRANSORAL DIAGNOSTIC 11/14/2012 EGD ESOPHAGOGASTRODUODENOSCOPY TRANSORAL DIAGNOSTIC 06/02/2020 EGD MED INC ALL EX DRUG 11/2009 PAST SURGICAL HISTORY OF WISDOM TEETH ALLERGIES Benzalkonium Chloride; Clindamycin; Doxycycline; Flagyl [Metronidazole]; Hand Sales Assistant Institutional Sales [Ethyl Alcohol (Skin Cleanser)]; Iodine; Latex, Natural Rubber; [place]; Meloxicam; Morphine; Penicillin; Prednisone; Singulair [Montelukast]; and Zofran [Ondansetron Hcl (Pf)] MEDICATIONS cefdinir (OMNICEF) 300 mg capsule Take 1 capsule by mouth twice daily for 10 days. albuterol HFA (PROVENTIL HFA, VENTOLIN HFA) 90 mcg/actuation inhaler Inhale 2 Puffs as instructed every 6 hours as needed for wheezing/shortness of breath. beclomethasone (QVAR REDIHALER) 80 mcg/actuation inhaler Inhale 2 Puffs as instructed twice daily. Nicotine Polacrilex [address] 1 Lozenge between cheek and gum as needed. Cholecalciferol, Vitamin D3, 50 mcg (2,000 unit) cap Take 1 capsule by mouth once daily. propranolol (INDERAL) 10 mg tablet TAKE 1 TABLET BY MOUTH THREE TIMES A DAY IF TREMORS PERSIST, IF NOT, MAY TRY TO WEAN DOWN DAILY DOSE loratadine (CLARITIN) 10 mg tablet Take 1 tablet by mouth once daily. pantoprazole DR (PROTONIX) 40 mg tablet TAKE 1 TABLET BY MOUTH DAILY medroxyPROGESTERone (DEPO-PROVERA) 150 mg/mL injection use as directed intramuscularly EVERY 12 WEEKS naproxen (NAPROSYN) 500 mg tablet Take 1 tablet by mouth twice daily with meals. THEREMS MULTIVITAMIN 400 mcg TAKE 1 TABLET BY MOUTH DAILY [facility] 10 billion cell -200 mg capsule TAKE 1 CAPSULE BY MOUTH DAILY promethazine (PHENERGAN) 25 mg tablet take 1 tablet by mouth three times a day if needed for nausea and vomiting multivitamin tablet Take 1 tablet by mouth once daily. lactobacillus acidophilus 100 mg (1 billion cell) cap(s) Take 1 capsule by mouth once daily. lamoTRIgine orally disintegrating (LAMICTAL ODT) 25 mg disintegrating tablet Take 25 mg by mouth once daily. cariprazine (VRAYLAR) 3 mg capsule Take by mouth. nicotine (NICODERM) 21 mg/24 hr Apply 1 Patch as directed every 24 hours. diclofenac (VOLTAREN ARTHRITIS PAIN) 1 % topical gel Apply 2 g to affected area four times daily. (Patient not taking: No sig reported) cyclobenzaprine (FLEXERIL) 10 mg tablet Take 1 tablet by mouth three times daily as needed for muscle spasm. (Patient not taking: No sig reported) fluticasone (FLONASE) 50 mcg/actuation nasal spray Use 2 Sprays in each nostril once daily. Rinse mouth after use. (Patient not taking: No sig reported) acetaminophen (TYLENOL EXTRA STRENGTH) 500 mg tablet Take 1 tablet by mouth every 6 hours as needed for Pain. (Patient not taking: No sig reported) Foot Care Products (GEL BUNION CUSHION) pads 1 Device once daily. Apply pad to area daily as needed (Patient not taking: No sig reported) ascorbic acid (VITAMIN C ORAL) Take by mouth. (Patient not taking: No sig reported) benztropine (COGENTIN) 0.5 mg tablet Take 1 mg by mouth twice daily. FAMILY HISTORY Problem Relation Age of Onset Alcohol/Drug Mother Arthritis Mother Asthma Mother Cancer Mother CANCER Hypertension Mother Stroke Mother Cancer Father LUNG CANCER Emphysema Father Asthma Brother Breast Cancer Maternal Aunt Hypertension Brother Social History Tobacco Use Smoking status: Every Day Packs/day: 1.50 Years: 25.00 Pack years: 37.50 Types: Cigarettes Last attempt to quit: 03/09/2021 Years since quittin.3 Smokeless tobacco: Never Vaping Use Vaping Use: Never used Substance Use Topics Alcohol use: Not Currently Comment: Quit 4 months ago. Drug use: No ASSESSMENT/PLAN: 1. Unspecified condition of the tongue - ICD9: 529.9, ICD10: K14.9 At this time patient was instructed to gargle with warm salt water several times a day and use a mouthwash on top of that. Patient was instructed to make a follow-up dental appointment for cavities. Patient will follow-up if signs or symptoms persist and do not get any better over the next few weeks. Yeni Hameed APRN.JOSE ROBERTO documented in this encounter [facility] 07-05-2022 Miscellaneous Notes Referral, Demo, Med list faxed to Dr. Mata's office. Will have them call pt to schedule. Elsy Villegas Ma Referral placed. Misbah Michel APRN.JOSE ROBERTO Patient requesting a consult to [facility] at [facility]. Feels that the protonix is not working as well. States she has vomiting x 3 in the last week due to GERD symptoms. documented in this encounter [facility] 06-26-2022 History of Present illness Narrative Images from the original note were not included. CC: Patient presents with: Dental Problem: Upset stomach x3 days HPI Angelica Andujar is a 41 year old female who presents today for above. Patient reports right lower dental pain x 3 days. She has 3 broken teeth with recurrent infections. She is unable to get an appointment with [facility] dentist until September. She denies fever, chills, facial swelling, purulent drainage, difficulty swallowing, difficulty breathing. REVIEW OF SYSTEMS See HPI PAST MEDICAL HISTORY Diagnosis Date 11/2009 Anxiety Arthritis Asthma COPD (chronic obstructive pulmonary disease) (HCC) Depression Obesity (BMI 30.0-34.9) CHARLES (obstructive sleep apnea) Recurrent UTI Seasonal allergies STD (sexually transmitted disease) Tobacco use disorder 05/18/2021 PAST SURGICAL HISTORY Procedure Laterality Date COLONOSCOPY W/BIOPSY SINGLE/MULTIPLE 03/02/11 ESOPHAGOGASTRODUODENOSCOPY TRANSORAL DIAGNOSTIC 11/14/2012 EGD ESOPHAGOGASTRODUODENOSCOPY TRANSORAL DIAGNOSTIC 06/02/2020 EGD MED INC ALL EX DRUG 11/2009 PAST SURGICAL HISTORY OF WISDOM TEETH ALLERGIES Benzalkonium Chloride; Clindamycin; Doxycycline; Flagyl [Metronidazole]; Hand Sales Assistant Institutional Sales [Ethyl Alcohol (Skin Cleanser)]; Iodine; Latex, Natural Rubber; [place]; Meloxicam; Morphine; Penicillin; Prednisone; Singulair [Montelukast]; and Zofran [Ondansetron Hcl (Pf)] MEDICATIONS lidocaine (LIDODERM) 5 % Apply 1 Patch as directed every 24 hours for 14 days. Remove old patch prior to placing new patch. Location: right arm leave on for 12 hours then take off for 12 hours before adding a new patch. albuterol HFA (PROVENTIL HFA, VENTOLIN HFA) 90 mcg/actuation inhaler Inhale 2 Puffs as instructed every 6 hours as needed for wheezing/shortness of breath. beclomethasone (QVAR REDIHALER) 80 mcg/actuation inhaler Inhale 2 Puffs as instructed twice daily. nicotine (NICODERM) 21 mg/24 hr Apply 1 Patch as directed every 24 hours. Nicotine Polacrilex [address] 1 Lozenge between cheek and gum as needed. Cholecalciferol, Vitamin D3, 50 mcg (2,000 unit) cap Take 1 capsule by mouth once daily. propranolol (INDERAL) 10 mg tablet TAKE 1 TABLET BY MOUTH THREE TIMES A DAY IF TREMORS PERSIST, IF NOT, MAY TRY TO WEAN DOWN DAILY DOSE diclofenac (VOLTAREN ARTHRITIS PAIN) 1 % topical gel Apply 2 g to affected area four times daily. (Patient not taking: No sig reported) cyclobenzaprine (FLEXERIL) 10 mg tablet Take 1 tablet by mouth three times daily as needed for muscle spasm. (Patient not taking: No sig reported) fluticasone (FLONASE) 50 mcg/actuation nasal spray Use 2 Sprays in each nostril once daily. Rinse mouth after use. (Patient not taking: No sig reported) loratadine (CLARITIN) 10 mg tablet Take 1 tablet by mouth once daily. pantoprazole DR (PROTONIX) 40 mg tablet TAKE 1 TABLET BY MOUTH DAILY medroxyPROGESTERone (DEPO-PROVERA) 150 mg/mL injection use as directed intramuscularly EVERY 12 WEEKS naproxen (NAPROSYN) 500 mg tablet Take 1 tablet by mouth twice daily with meals. THEREMS MULTIVITAMIN 400 mcg TAKE 1 TABLET BY MOUTH DAILY [facility] 10 billion cell -200 mg capsule TAKE 1 CAPSULE BY MOUTH DAILY promethazine (PHENERGAN) 25 mg tablet take 1 tablet by mouth three times a day if needed for nausea and vomiting acetaminophen (TYLENOL EXTRA STRENGTH) 500 mg tablet Take 1 tablet by mouth every 6 hours as needed for Pain. (Patient not taking: No sig reported) Foot Care Products (GEL BUNION CUSHION) pads 1 Device once daily. Apply pad to area daily as needed (Patient not taking: No sig reported) multivitamin tablet Take 1 tablet by mouth once daily. lactobacillus acidophilus 100 mg (1 billion cell) cap(s) Take 1 capsule by mouth once daily. ascorbic acid (VITAMIN C ORAL) Take by mouth. (Patient not taking: No sig reported) lamoTRIgine orally disintegrating (LAMICTAL ODT) 25 mg disintegrating tablet Take 25 mg by mouth once daily. cariprazine (VRAYLAR) 3 mg capsule Take by mouth. benztropine (COGENTIN) 0.5 mg tablet Take 1 mg by mouth twice daily. FAMILY HISTORY Problem Relation Age of Onset Alcohol/Drug Mother Arthritis Mother Asthma Mother Cancer Mother CANCER Hypertension Mother Stroke Mother Cancer Father LUNG CANCER Emphysema Father Asthma Brother Breast Cancer Maternal Aunt Hypertension Brother Social History Tobacco Use Smoking status: Every Day Packs/day: 1.50 Years: 25.00 Pack years: 37.50 Types: Cigarettes Last attempt to quit: 03/09/2021 Years since quittin.2 Smokeless tobacco: Never Vaping Use Vaping Use: Never used Substance Use Topics Alcohol use: Not Currently Comment: Quit 4 months ago. Drug use: No PHYSICAL EXAM BP 110/82 Pulse 110 Temp 36.7 C (98.1 F) Resp 18 Wt 106.1 kg (233 lb 12.8 oz) LMP (LMP Unknown) SpO2 97% BMI 36.08 kg/m General Appearance: well appearing, in no acute distress, alert Head- no facial swelling ASSESSMENT/PLAN: 1. Dental infection - ICD9: 522.4, ICD10: K04.7 Start cefdinir, see orders Follow-up with dentist STEPHANIE Follow-up with PCP in 2-3 days if symptoms persist or sooner if worsening Prescription instructions reviewed with patient as applicable. Potential red flag symptoms discussed with the patient. Reviewed appropriate action plan to take if red flag symptoms occur. Patient agreeable to treatment plan. Amanda Montoya APRN.CNP documented in this encounter [facility] 06-20-2022 Miscellaneous Notes Reason for Call: cough for 30 days, pt c/o R sided rib/chest pain when she touches her ribs and breathes in and out, new since last evaluation 2 weeks ago, constant Pt rates this pain as a 6 or 7/10. Pt also c/o diarrhea. Pt also c/o trouble sleeping r/t coughing. Pt reports hx of asthma , COPD and autism. Outcome: Pt advised to go to an ED now and for someone else to drive her there. Pt understands the recommendation and refuses as no one can take her and there are no cabs on Tuesday. Pt advised she can call 911 if needed. Pt states she does not want to call 911 to go to the ED. She requests to know if she has a virus or something else. Pt also states she can go to the [place] [facility] per a cab tomorrow but does not want an appt. tomorrow. Dr Ortega notified of sx.'s and concerns above. He advises pt probably has rib inflammation and should see Dr Mejia or one of his advance practice providers tomorrow instead of the express care. If she develops sob or feels worse, should go to the ED. If pt still has naproxen, may take it as previously prescribed or may use OTC ibuprofen 200 mg tablet- may take 3 tablets x1 tonight instead. Pt notified of instructions and reports she has no naproxen left and has no ibuprofen as she can't afford it. Pt reports she already has an appt at 11:40am tomorrow per Dr Mejia's office and will keep that appt. Reason for Disposition SEVERE or constant chest pain or pressure (Exception: Mild central chest pain, present only when coughing.) Protocols used: Coronavirus (COVID-19) Diagnosed or [id number] documented in this encounter [facility] 06-18-2022 Miscellaneous Notes Order faxed to [facility]. Will have hospital call pt to schedule. Elsy Villegas Ma Order for sleep study filed and printed Win Mejia MD Patient calls and states that she is needing an order for a sleep study to be faxed over to [facility] Sleep Lab. Please review and advise, Lilian Marks RN documented in this encounter [facility] 06-17-2022 Miscellaneous Notes Patient called. Verified name and date of . Patient informed of results- declines having toenail removed at this time. Mima Vasquez LPN Called patient no response . Left voicemail to call office for results below. Carolina Bell LPN Please call patient to report that her circulation appears adequate. If she desires toenail removal, she can schedule it Yogi Amos DPM documented in this encounter [facility] 06-15-2022 History of Present illness Narrative Episode Visit Count: 1 Therapist That Will Accept/Oversee The Plan Of Care: Marco A Garcias Start of Care Date: 06/15/22 Onset Date: 01/13/22 Plan of Care Certification Date: 06/15/22 Next Certification Due Date: 08/15/22 Patient Identified by Name and Date of : Yes REHABILITATION AND SPORTS THERAPY PHYSICAL THERAPY EVALUATION PLAN OF CARE: Assessment: Angelica Andujar presents with chief complaint of R lower leg/calf pain that interferes with rising from a chair;standing;walking;stair negotiation;bending;heavy exertion;lifting;physical activities;recreational activities . She presents with impairments in ADL's, overall function, strength, symptom management, and tissue tenderness. Prognosis for therapy is Fair due to: clinical presentation;multiple co- morbidities;chronic nature of impairments;decreased motivation;coping skills;limited tolerance to activity;Prognosis may be improved by good support system/ coping skills. She may benefit from a deeper neurological evaluation due to the clonus which was discovered during this evaluation. Recommendation is to follow up with her PCP or specialist regarding this issue. Goals for Episode of Care: created on 06/15/22 through 07/16/22 Cameron in home exercise program. Patient will decrease pain rating by 2 points to meet minimal clinical important difference for numeric pain rating scale. Perform Prolonged walking with decreased report of symptoms/pain in 8 weeks. Perform ADL's such as cleaning/cooking without pain. Normal gait. Patient Goals: Return to performing ADLs, be able to walk prolonged periods Planned Interventions, Frequency, and Duration: Current Frequency: 1x/week Duration: 4 weeks Total Number of Visits Planned: 4 Planned Treatment Interventions: Therapeutic exercise (90418);Neuromuscular re-education (56462);Manual therapy (38756);Self-usp management (27585);Therapeutic activities (27649);Gait Training (29820);E-Stim Unattended (92438);E-Stim Attended/TENS (14268) PLAN FOR NEXT VISIT: Assess response to exercises, examine lower extremity reflexes, Patient demonstrates fair understanding of plan of care and treatment. The above goals and plan of care were discussed and agreed upon by patient/family. SUBJECTIVE: Angelica Andujar is a 41 year old female seen today for Pt has had R lower leg pain with spasm for the past few months, local tenderness and pain with palpation Patient Goals: Return to performing ADLs, be able to walk prolonged periods Functional Limitations: rising from a chair;standing;walking;stair negotiation;bending;heavy exertion;lifting;physical activities;recreational activities Prior Level of Function: Independent without limitations Relevant History Past Relevant Medical Conditions: Anxiety;Depression;Smoking History Intake Information: Prescription present Previous Treatment: Pain meds ;Chiropractor Pain: Pain Pain Level: 8 Pain Location: Leg - Right;Calf - Right Description: Sharp;Shooting;Sore Frequency: Continuous Post Treatment Pain Post Treatment Pain Level: 8 Post Treatment Pain Location: Leg - Right;Calf - Right Post Treatment Pain Description: Sharp;Shooting Post Treatment Symptoms: no change PROMIS Scales Higher is Better 10/21/2016 GH Physical - Percentile 15 % GH Mental - Percentile 13 % T-scores: mean of general population = 50. 5 points is clinically meaningfully difference Percentiles provide an indication of how the patient's score ranks in relation to the general population. Higher percentile rankings indicate better function/quality of life. 50th percentile is the average of the general population and indicates half of respondents had a worse score. T-scores: mean of general population = 50. 5 points is clinically meaningfully difference Percentiles provide an indication of how the patient's score ranks in relation to the general population. Higher percentile rankings indicate better function/quality of life. 50th percentile is the average of the general population and indicates half of respondents had a worse score. OBJECTIVE MEASURES WITH LEVEL OF FUNCTION: Reflexes - Lower Extremity R Babinski: Negative L Babinski: Negative LE AROM R Hip Flexion: (WNL) R Hip Internal Rotation: (WNL) R Hip External Rotation: (WNL) R Knee Extension: (WNL) R Knee Flexion: (WNL) R Ankle Dorsiflexion: (WNL) R Ankle Plantar Flexion: (Clonus with strength testing) L Hip Flexion: (WNL) L Hip Internal Rotation: (WNL) L Hip External Rotation: (WNL) L Knee Extension: (WNL) L Knee Flexion: (WNL) L Ankle Dorsiflexion: (WNL) L Ankle Plantar Flexion: (WNL) LE Strength R Hip Internal Rotation: 5/5 R Hip External Rotation: 5/5 R Knee Extension (L3): 5/5 R Knee Flexion: 4+/5 R Ankle Dorsiflexion (L4): 5/5 R Ankle Plantar Flexion: 4/5 (Clonus upon testing) L Hip Internal Rotation: 5/5 L Hip External Rotation: 5/5 L Knee Extension (L3): 5/5 L Knee Flexion: 5/5 L Ankle Dorsiflexion (L4): 5/5 L Ankle Plantar Flexion: 5/5 Special Tests - Hip and Spine Hip and Spine Special Tests: Slump Test;SLR Test SLR Test: Left Negative;Right Positive Slump Test: Right Positive;Left Negative Special Test Comments: Sustained clonus with dorsiflexion of R foot during SLR test, Slump test clonus present as well Education: Education Learning/educational needs: Home exercise program Education Provided: Yes, see treatment interventions for education provided Education Provided To: Patient TREATMENT: PT Treatment Interventions: Therapeutic Exercise;Manual Therapy Evaluation Evaluation Therapeutic Exercise: 1: SKC [id number] 2: DKC [id number] 3: Seated heel raises 4: Seated Tib raises Skilled Intervention: Patient was educated in proper exercise technique and purpose for exercises. Reviewed and educated patient on additions/changes for home exercise program as above (*). Skilled judgment was provided in selection of appropriate interventions. Provided written instruction for home exercise program to facilitate proper performance and compliance. Correct performance of therapeutic exercises was facilitated with verbal, visual, and tactile cuing. Manual Therapy: 1: STM to R gastroc and soleus complex Skilled Intervention: Manual skills to improve joint mobility, ROM, and decrease pain. Utilized anatomy knowledge of the therapist, and assessment of patient's response to intervention. Billing * Evaluation Low Complexity: 1 Unit Therapeutic Exercise Treatment Minutes: 10 Manual TherapyTreatment Minutes: 5 Total Treatment Time Minutes (timed/untimed): 40 Palmer Chan, SPT Marco A Garcias PT Supervising therapist was present and guided the care of the patient for the entire session on this date. All documentation was reviewed and agreed upon. Marco A Garcias PT documented in this encounter [facility] 06-12-2022 Instructions Yeni Hameed APRN.JOSE ROBERTO - 06/12/2022 10:26 AM EDT - RICE therapy - see patient instructions for further recommendations. - F/U with PCP in 5-7 days or before if worse. - Discussed Red Flag signs and when to go to ER. - Reviewed plan of care and DC papers with patient. Verbalized understanding. documented in this encounter [facility] 06-12-2022 History of Present illness Narrative Subjective Patient came in with complaints of right shoulder pain for about a week. Patient says it goes into her arm and wrist. Patient says she did go to the ER for this but they did not do anything. Patient cannot take steroids says it makes her bethea. Patient also wanted her lungs checked to make sure she was not having any wheezing. Patient says she has had a cough for a month. Did explain that it could be a postviral cough and those usually last about a month or so. Patient also would like her lower back x-rayed for sciatica. Patient says that her insurance does not cover it at her chiropractor's office. The history is provided by the patient. No translator interpreter was used. Pain (Shoulder Pain) Review of Systems Constitutional: Negative. Skin: Negative. Objective Physical Exam Constitutional: Appearance: Normal appearance. Pulmonary: Effort: Pulmonary effort is normal. Breath sounds: Normal breath sounds. Neurological: Mental Status: She is alert. PAST MEDICAL HISTORY Diagnosis Date 11/2009 Anxiety Arthritis Asthma COPD (chronic obstructive pulmonary disease) ([facility]) Depression Obesity (BMI 30.0-34.9) CHARLES (obstructive sleep apnea) Recurrent UTI Seasonal allergies STD (sexually transmitted disease) Tobacco use disorder 05/18/2021 PAST SURGICAL HISTORY Procedure Laterality Date COLONOSCOPY W/BIOPSY SINGLE/MULTIPLE 03/02/11 ESOPHAGOGASTRODUODENOSCOPY TRANSORAL DIAGNOSTIC 11/14/2012 EGD ESOPHAGOGASTRODUODENOSCOPY TRANSORAL DIAGNOSTIC 06/02/2020 EGD MED INC ALL EX DRUG 11/2009 PAST SURGICAL HISTORY OF WISDOM TEETH ALLERGIES Benzalkonium Chloride; Clindamycin; Doxycycline; Flagyl [Metronidazole]; Hand 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 beclomethasone (QVAR REDIHALER) 80 mcg/actuation inhaler Inhale 2 Puffs as instructed twice daily. nicotine (NICODERM) 21 mg/24 hr Apply 1 Patch as directed every 24 hours. Nicotine Polacrilex [address] 1 Lozenge between cheek and gum as needed. ciclopirox (LOPROX) 0.77 % cream Apply 1 application to affected area twice daily. Cholecalciferol, Vitamin D3, 50 mcg (2,000 unit) cap Take 1 capsule by mouth once daily. propranolol (INDERAL) 10 mg tablet TAKE 1 TABLET BY MOUTH THREE TIMES A DAY IF TREMORS PERSIST, IF NOT, MAY TRY TO WEAN DOWN DAILY DOSE loratadine (CLARITIN) 10 mg tablet Take 1 tablet by mouth once daily. pantoprazole DR (PROTONIX) 40 mg tablet TAKE 1 TABLET BY MOUTH DAILY medroxyPROGESTERone (DEPO-PROVERA) 150 mg/mL injection use as directed intramuscularly EVERY 12 WEEKS naproxen (NAPROSYN) 500 mg tablet Take 1 tablet by mouth twice daily with meals. THEREMS MULTIVITAMIN 400 mcg TAKE 1 TABLET BY MOUTH DAILY [facility] 10 billion cell -200 mg capsule TAKE 1 CAPSULE BY MOUTH DAILY promethazine (PHENERGAN) 25 mg tablet take 1 tablet by mouth three times a day if needed for nausea and vomiting multivitamin tablet Take 1 tablet by mouth once daily. lactobacillus acidophilus 100 mg (1 billion cell) cap(s) Take 1 capsule by mouth once daily. lamoTRIgine orally disintegrating (LAMICTAL ODT) 25 mg disintegrating tablet Take 25 mg by mouth once daily. cariprazine (VRAYLAR) 3 mg capsule Take by mouth. benztropine (COGENTIN) 0.5 mg tablet Take 1 mg by mouth twice daily. diclofenac (VOLTAREN ARTHRITIS PAIN) 1 % topical gel Apply 2 g to affected area four times daily. (Patient not taking: No sig reported) cyclobenzaprine (FLEXERIL) 10 mg tablet Take 1 tablet by mouth three times daily as needed for muscle spasm. (Patient not taking: No sig reported) fluticasone (FLONASE) 50 mcg/actuation nasal spray Use 2 Sprays in each nostril once daily. Rinse mouth after use. (Patient not taking: No sig reported) acetaminophen (TYLENOL EXTRA STRENGTH) 500 mg tablet Take 1 tablet by mouth every 6 hours as needed for Pain. (Patient not taking: No sig reported) Foot Care Products (GEL BUNION CUSHION) pads 1 Device once daily. Apply pad to area daily as needed (Patient not taking: No sig reported) ascorbic acid (VITAMIN C ORAL) Take by mouth. (Patient not taking: No sig reported) FAMILY HISTORY Problem Relation Age of Onset Alcohol/Drug Mother Arthritis Mother Asthma Mother Cancer Mother CANCER Hypertension Mother Stroke Mother Cancer Father LUNG CANCER Emphysema Father Asthma Brother Breast Cancer Maternal Aunt Hypertension Brother Social History Tobacco Use Smoking status: Every Day Packs/day: 1.50 Years: 25.00 Pack years: 37.50 Types: Cigarettes Last attempt to quit: 03/09/2021 Years since quittin.2 Smokeless tobacco: Never Vaping Use Vaping Use: Never used Substance Use Topics Alcohol use: Not Currently Comment: Quit 4 months ago. Drug use: No ASSESSMENT/PLAN: 1. Pain - ICD9: 780.96, ICD10: R52 - XR HUMERUS 2V AP/LAT RIGHT - XR FOREARM GENERAL 2V AP/LAT LEFT - XR LUMBAR LIMITED 2V AP/LAT * * * * Physician Interpretation * * * * Lumbar spine, RIGHT forearm, and humerus: History: Pain has pain down both legs, not sure how long no injury (accession [id number]), 3-4 months ago chiropractor put her right rotator cuff out of alignment and has pain down the entire right arm since no inj (accession [id number]), 3-4 months ago chiropractor put her right rotator cuff out of alignment and has pain down the entire right arm since no inj (accession [id number]) Findings: Lumbar spine: AP, and lateral views performed. There are five lumbar type vertebra. There is narrowing of the L4-5 disc space. Grade 1 spondylolisthesis L5-S1. The vertebral bodies and pedicles are intact. Counting reference: Lumbosacral junction. For the purposes of this report, L4-5 is considered the level of the iliac crest and there are 5 lumbar-type vertebrae. Anatomic Variants: None. Right humerus and forearm: No fracture or bony destruction. Elbow joint is unremarkable. IMPRESSION IMPRESSION: Mild degenerative findings with L5-S1 grade 1 spondylolisthesis. Unremarkable radiographs RIGHT humerus and forearm. [employer] Consultant: CHARLES Transcribe Date/Time: Jun 12 2022 10:13A Dictated by : WIN HARRIS MD Patient was prescribed a Lidoderm patch. Patient was educated about proper use of patch and supportive therapies. Patient does have an orthopedic follow-up on Tuesday so she will be going to that. Patient understands care plan and is okay with care plan. Yeni Hameed APRN.JOSE ROBERTO documented in this encounter [facility] 06-11-2022 Miscellaneous Notes Reason for Call: COVID like symptoms Outcome: 24 hour recommendation given, yet due to the holiday EC/UC/ED visit so patient can see a provider today advised. Reviewed care advice and voiced understanding. Patient states they will hang up and call 911 now. Reason for Disposition [1] HIGH RISK for severe COVID complications (e.g., weak immune system, age > 64 years, obesity with BMI > 25, , chronic lung disease or other chronic medical condition) AND [2] COVID symptoms (e.g., cough, fever) (Exceptions: Already seen by PCP and no new or worsening symptoms.) Answer Assessment - Initial Assessment Questions 1. COVID-19 DIAGNOSIS: Patient refused to get test while seen at the [facility] 06/02 2. COVID-19 EXPOSURE:Yes 3. ONSET: 10 days ago 4. WORST SYMPTOM: Wheezing and coughing 5. COUGH: Yes, severe 6. FEVER: Unsure 7. RESPIRATORY STATUS: Patient states shortness of breath and wheezing 8. [id number]: Worse 9. HIGH RISK DISEASE: Patient states asthma, lung disease, weak immune system, and obesity 10. VACCINE: Pfizer 08/25/21 11. BOOSTER: N/A 12. : Denies 13. OTHER SYMPTOMS: Patient states chills, fatigue, headache, muscle pain, sore throat 14. O2 SATURATION MONITOR: N/A Protocols used: Coronavirus (COVID-19) Diagnosed or [id number] documented in this encounter [facility] 06-08-2022 Miscellaneous Notes Pt calls to report she was seen in [facility] on 06/03/22. Pt was under the impression that provider was going to call in rx for inhaler to [facility]. OV notes state:Patient want albuterol called in but patient has 3 refills left according to the computer. Pt reports she does not have any refills on inhaler left because she has COPD and has used up refills. Pt reports she has been waiting since last week for inhaler. Pt is requesting rx for inhaler go to [facility]. Patient has been identified by name and date of : Yes Requested Prescriptions Pending Prescriptions Disp Refills albuterol HFA (PROVENTIL HFA, VENTOLIN HFA) 90 mcg/actuation inhaler 18 g 3 Sig: Inhale 2 Puffs as instructed every 6 hours as needed for wheezing/shortness of breath. RX INSTRUCTIONS: Patient aware RX will be sent to pharmacy. No need to notify patient. Adrienne Moctezuma LPN documented in this encounter [facility] 06-02-2022 Miscellaneous Notes Patient of [facility] in [place] forgot to take her am psych meds today and concerned States she has already spoken to the facility's pharmacy who advised to skip today's missed doses and resume tomorrow States she then spoke to pharmacist Nicola at [facility] in [place] who said okay to take now then take later in day tomorrow Patient has decided to take pills tomorrow am as advised by her facility and will follow up when open in am with further questions Patient denies new or worse symptoms from which her providers are aware. Yes documented in this encounter [facility] 05-31-2022 Instructions Shara Jaramillo APRN.AMY - 05/31/2022 10:47 AM EDT Images from the original note were not included. The Herpes Virus Herpes is a virus that can cause sores on the skin. There are two types of the virus. Depending on how you come in contact with the virus, either type can cause outbreaks near the mouth or on the sex organs. Understanding the Herpes Virus Herpes reproduces only when it is inside the body. It does so by tricking a healthy cell into producing copies of the herpes virus. Each copy can infect nearby cells. But, before too long, the body s defenses rally to stop the attack. The immune system forces the virus to retreat. For some people, an acute outbreak never happens again. For others, menstruation, illness, poor diet, fatigue, or stress makes outbreaks more likely. How the Herpes Virus Attacks The herpes virus enters the body through a small break in the skin. The virus can also enter by direct contact with mucous membranes, such as those of the lips, vagina, or anus. Inside the body, the herpes virus binds to a special site on a skin cell. Then part of the virus moves into the cell. Inside the skin cell, the virus releases a set of instructions. These commands cause the cell to begin making copies of the herpes virus. Herpes blisters appear on the skin. Herpes blisters may also appear on mucous membranes lining the mouth, vagina, or anus. Diagnosing Herpes You will be asked about your health history. You may be asked about your eating and sleeping habits and sexual history. Mention if you have sores or if you have had any in the past. Also mention if you feel tingling or itching before an outbreak. What a Sore Looks Like A herpes sore may first appear as a small white blister. The fluid inside the blister is filled with the herpes virus. At this stage the virus sheds easily. This means it can be passed to other people. A soft wet ulcer may form in place of the blister. The herpes virus is in the fluid of the open sore. As a result, the virus can still be spread to others. A soft crust forms as a new layer of skin grows. Fewer copies of the virus are present in the sore. The skin surface is normal, but the virus remains in the body. Shedding is less likely, but it can still occur. Testing for Herpes If herpes is suspected, tests such as these may be done to confirm the diagnosis: Viral culture: A small amount of fluid is swabbed from the base of a blister. The fluid is grown in a special culture with healthy cells. If herpes is present, it will alter the look of the cells. Fluorescent antibody test: Cells are taken from the base of a blister. They are stained and checked under a microscope. If herpes is present, the cells will change color. Other tests: If sores are not present, tests can be run on blood or cell samples. These tests show if you carry the herpes virus. Living with Herpes To speed healing, take care of open herpes sores. To reduce outbreaks, take care of your health. And to keep from infecting others, learn how to avoid spreading the virus. To Ease Symptoms Start episodic treatment at the first sign of symptoms, such as itching or tingling. Take ibuprofen, acetaminophen, or aspirin to limit any pain. Sit in a warm bath or use a moist compress to lessen the itching of sores. For some women, genital outbreaks cause burning during urination. In such cases, urinating in a tub of warm water helps reduce burning. Wear white cotton underwear and loose clothing during outbreaks. Don t wear nylon underwear or tight clothes. They can prevent sores from healing. To Speed Healing Wash sores with mild soap and water. Pat the sores completely dry. Always wash your hands after touching a sore. Don t bandage sores. Air helps them heal. Avoid using any ointment unless it is prescribed. Applying the wrong jelly or cream may hold in moisture and slow healing. Don t pick at the sores. This can slow healing, and might cause a sore to become infected. If you wear contacts, wash your hands well before putting them in. To Reduce Outbreaks Eat a balanced diet. Your healthcare provider may suggest taking supplements. These help ensure that you get all the nutrients you need. Get plenty of sleep. This helps your immune system work its best. Limit stress and tension. Both can weaken the body s defenses. Limit exposure to sun, wind, and extreme heat or cold. Wear sunscreen and lip balm to help prevent outbreaks. To Protect Others Tell your current sex partner and any future partners that you have herpes. If you don t know what to say, ask your healthcare provider for help. Use a latex condom each time you have sex. This reduces the risk of passing herpes to your partner. Avoid kissing when you have an oral sore. Do not have intercourse when genital sores are present. Also keep in mind, herpes can be passed during oral sex and with anal contact. Don t share towels, toothbrushes, lip balm, or lipstick when you have a sore. For Teens: Understanding Herpes Herpes is a sexually transmitted disease (STD) that causes painful outbreaks of blisters and sores. It spreads through contact with an infected area--usually a sore on the genitals or mouth. Herpes can also spread even when sores aren t visible. There s no cure for herpes. But treatment can help make outbreaks happen less often and be less severe. What to Look For An outbreak can happen a few days or weeks after sex. Some people have only one outbreak in their lifetime. Others have several outbreaks a year. An outbreak begins with blisters on the penis, or in or around the vagina, mouth, or rectum. After a few days, the blisters break and leave painful sores. These may take days or weeks to heal. The first outbreak is often the worst. Later outbreaks are also painful, but tend to heal faster. Treatment Medications can help reduce how often outbreaks happen. They can also lessen pain. Help sores heal faster by keeping them clean and dry. To avoid spreading the virus, don t have sex during an outbreak. Also, avoid oral sex if you have a cold sore. Cold sores are another form of the herpes virus (oral herpes). Oral herpes can be passed from the mouth to the genitals. If You Don t Get Treated Herpes isn t deadly. But it does have risks: Having herpes increases the chance of catching HIV (the virus that causes AIDS). Herpes sores make it easier for the HIV virus to be passed during sex. If a woman has an outbreak during , herpes can be passed to the baby at . Don t kiss or have sex if you or your partner has a herpes sore. And use latex condoms every time you have sex--even between outbreaks. documented in this encounter [facility] 05-31-2022 History of Present illness Narrative Angelica Andujar is a 41 year old female who presents for problem visit STD screening. HPI: Patient here today and requesting testing for STD. Having some vulvar itching. No lesions or discoloration. Also requesting testing for HSV. She has been positive in the past but no recent outbreaks. Depo for birthcontrol. No current sexual partners. OB History T0 L0 SAB0 IAB1 Ectopic0 Multiple0 Live Births0 Larriman Helper History LMP: LMP Unknown, Injection Age at Menarche: Age at First : Age at Menopause: Larriman Helper History Comments: Sexual Activity: Yes; Male Contraception: None PAST MEDICAL HISTORY Diagnosis Date 11/2009 Anxiety Arthritis Asthma COPD (chronic obstructive pulmonary disease) (HCC) Depression Obesity (BMI 30.0-34.9) CHARLES (obstructive sleep apnea) Recurrent UTI Seasonal allergies STD (sexually transmitted disease) Tobacco use disorder 05/18/2021 PAST SURGICAL HISTORY Procedure Laterality Date COLONOSCOPY W/BIOPSY SINGLE/MULTIPLE 03/02/11 ESOPHAGOGASTRODUODENOSCOPY TRANSORAL DIAGNOSTIC 11/14/2012 EGD ESOPHAGOGASTRODUODENOSCOPY TRANSORAL DIAGNOSTIC 06/02/2020 EGD MED INC ALL EX DRUG 11/2009 PAST SURGICAL HISTORY OF WISDOM TEETH FAMILY HISTORY Problem Relation Age of Onset Alcohol/Drug Mother Arthritis Mother Asthma Mother Cancer Mother CANCER Hypertension Mother Stroke Mother Cancer Father LUNG CANCER Emphysema Father Asthma Brother Breast Cancer Maternal Aunt Hypertension Brother Social History Tobacco Use Smoking status: Every Day Packs/day: 1.50 Years: 25.00 Pack years: 37.50 Types: Cigarettes Last attempt to quit: 03/09/2021 Years since quittin.2 Smokeless tobacco: Never Vaping Use Vaping Use: Never used Substance Use Topics Alcohol use: Not Currently Comment: Quit 4 months ago. Drug use: No Current Outpatient Medications Medication Sig nicotine (NICODERM) 21 mg/24 hr Apply 1 Patch as directed every 24 hours. Nicotine Polacrilex [address] 1 Lozenge between cheek and gum as needed. ciclopirox (LOPROX) 0.77 % cream Apply 1 application to affected area twice daily. Cholecalciferol, Vitamin D3, 50 mcg (2,000 unit) cap Take 1 capsule by mouth once daily. propranolol (INDERAL) 10 mg tablet TAKE 1 TABLET BY MOUTH THREE TIMES A DAY IF TREMORS PERSIST, IF NOT, MAY TRY TO WEAN DOWN DAILY DOSE loratadine (CLARITIN) 10 mg tablet Take 1 tablet by mouth once daily. pantoprazole DR (PROTONIX) 40 mg tablet TAKE 1 TABLET BY MOUTH DAILY medroxyPROGESTERone (DEPO-PROVERA) 150 mg/mL injection use as directed intramuscularly EVERY 12 WEEKS THEREMS MULTIVITAMIN 400 mcg TAKE 1 TABLET BY MOUTH DAILY [facility] 10 billion cell -200 mg capsule TAKE 1 CAPSULE BY MOUTH DAILY multivitamin tablet Take 1 tablet by mouth once daily. lactobacillus acidophilus 100 mg (1 billion cell) cap(s) Take 1 capsule by mouth once daily. lamoTRIgine orally disintegrating (LAMICTAL ODT) 25 mg disintegrating tablet Take 25 mg by mouth once daily. cariprazine (VRAYLAR) 3 mg capsule Take by mouth. benztropine (COGENTIN) 0.5 mg tablet Take 1 mg by mouth twice daily. diclofenac (VOLTAREN ARTHRITIS PAIN) 1 % topical gel Apply 2 g to affected area four times daily. (Patient not taking: No sig reported) cyclobenzaprine (FLEXERIL) 10 mg tablet Take 1 tablet by mouth three times daily as needed for muscle spasm. (Patient not taking: No sig reported) fluticasone (FLONASE) 50 mcg/actuation nasal spray Use 2 Sprays in each nostril once daily. Rinse mouth after use. (Patient not taking: No sig reported) naproxen (NAPROSYN) 500 mg tablet Take 1 tablet by mouth twice daily with meals. (Patient not taking: Reported on 05/17/2022) albuterol HFA (PROVENTIL HFA, VENTOLIN HFA) 90 mcg/actuation inhaler Inhale 2 Puffs as instructed every 6 hours as needed for wheezing/shortness of breath. promethazine (PHENERGAN) 25 mg tablet take 1 tablet by mouth three times a day if needed for nausea and vomiting (Patient not taking: No sig reported) albuterol (PROVENTIL) 2.5 mg /3 mL (0.083 %) nebulizer solution Use 3 mL via nebulizer every 4 hours as needed. acetaminophen (TYLENOL EXTRA STRENGTH) 500 mg tablet Take 1 tablet by mouth every 6 hours as needed for Pain. (Patient not taking: No sig reported) Foot Care Products (GEL BUNION CUSHION) pads 1 Device once daily. Apply pad to area daily as needed (Patient not taking: No sig reported) ascorbic acid (VITAMIN C ORAL) Take by mouth. (Patient not taking: No sig reported) No current facility-administered medications for this visit. Allergies As of Date: 05/31/2022 Allergen Noted Reaction BENZALKONIUM CHLORIDE 09/08/2012 Other: See Comments CLINDAMYCIN 03/27/2018 GI Upset DOXYCYCLINE 12/13/2012 GI Upset FLAGYL [METRONIDAZOLE] 04/11/2018 Hives HAND CONTENT DEVELOPMENT MANAGER [ETHYL ALCOHOL (SK*11/04/2009 Rash IODINE 02/18/2011 Rash LATEX, NATURAL RUBBER 03/17/2018 Rash [place] 12/07/2017 Intolerance MELOXICAM 06/12/2018 Unknown MORPHINE 03/02/2011 Itching PENICILLIN 06/18/2016 Unknown PREDNISONE 08/26/2012 Other: See Comments SINGULAIR [MONTELUKAST] 12/07/2017 Unknown ZOFRAN [ONDANSETRON HCL (PF)] 03/02/2011 Other: See Comments Fully Assessed 05/31/2022 REVIEW OF SYSTEMS Abdomen: No bloating, early satiety, indigestion, or increased flatulence. No abdominal pain, nausea, vomiting, diarrhea, or constipation. Bladder: No dysuria, gross hematuria, urinary frequency, urinary urgency, or incontinence. Breast: No breast lumps, nipple d/c, overlying skin changes, redness or skin retraction. Expanded ROS: N/A Allergies and current medication updated:Yes EXAM: BP 132/78 Wt 228 lb (103.4kg) GENERAL: pleasant, female in no apparent distress HEENT: Normocephalic and atraumatic PELVIC: external genitalia normal, normal Bartholin's glands, urethra, Kellogg's glands, no vulvar lesions, no cervical lesions, good vaginal support, small amount of yellow thick vaginal discharge present, normal appearing perineal body and perianal region BIMANUAL: deferred NEURO: alert and oriented x3,exam grossly non-focal EXTREMITIES: normal ASSESSMENT AND PLAN: 1. Herpes simplex vulvovaginitis - ICD9: 054.11, ICD10: A60.04 (primary diagnosis) -Reviewed HSV in depth and transmission. Discussed viral infection and that testing is not always accurate when she does not have an active outbreak. Reviewed that if she had a positive test in the past that she does have the virus. 2. Vulvar pain - ICD9: 625.9, ICD10: R10.2 - SYPHILIS TOTAL W/REFLEX - HEP B SURF AG SCRN - HCV QUANT RNA BY PCR - HIV 1 2 COMBO(AG/AB),WITH REFLEX TO DIFFERENTIATION - HERPES SIMPLEX TYPE 1 AND 2 IG - HERPES SIMPLEX IGM AB - GC/CHLAMYDIA DNA DET - BACTERIAL VAGINOSIS AMPLIFICATION - MISTY / TRICHOMONAS AMPLIFICATION - URINE CULTURE 3. Screening examination for STD (sexually transmitted disease) - ICD9: V74.5, ICD10: Z11.3 4. Vaginal discharge - ICD9: 623.5, ICD10: N89.8 Shara Jaramillo APRN.AMY Medical Decision Making: Problems: Low: Acute, uncomplicated illness or injury Data: Unique test(s) ordered: 3+ Assessment requiring an independent historian(s) Risk: Moderate: Moderate risk from testing/treatment Medical Decision Making Level: 4 - Moderate I spent 30 minutes in the visit, with more than 50% of the total [id number] time of the visit in counseling / coordination of care. documented in this encounter [facility] 05-21-2022 History of Present illness Narrative This is a 41 year old female who presents today with: No chief complaint on file. HISTORY OF PRESENT ILLNESS: Angelica Andujar is a 41 year old female. No chief complaint on file. HOSPITAL/ER FOLLOW UP: Reason for visit: Headache Which facility: [facility] ER Date of visit: 05/13/2022 Diagnosis: Migraine and URI. Testing done: None Treatment given: Toradol 60 mg, prescription for at home for naproxen. Current symptoms: Migraine improved with Toradol. Chronic neck pain for over 15 years. Seems to be increasing. Seems that the neck pain aggrevates the migraines. Tremor: Seeing psychiatry, will try to get an appointment next week. Taking propanolol 10 mg daily for tremors. Has appointment with [facility] in June/July. Has notied increased tremor in right leg that past 6-8 months. Would like to quit smoking. Smoking 2 PPD. PAST MEDICAL HISTORY: PAST MEDICAL HISTORY Diagnosis Date 11/2009 Anxiety Arthritis Asthma COPD (chronic obstructive pulmonary disease) ([facility]) Depression Obesity (BMI 30.0-34.9) CHARLES (obstructive sleep apnea) Recurrent UTI Seasonal allergies STD (sexually transmitted disease) Tobacco use disorder 05/18/2021 PAST SURGICAL HISTORY Procedure Laterality Date COLONOSCOPY W/BIOPSY SINGLE/MULTIPLE 03/02/11 ESOPHAGOGASTRODUODENOSCOPY TRANSORAL DIAGNOSTIC 11/14/2012 EGD ESOPHAGOGASTRODUODENOSCOPY TRANSORAL DIAGNOSTIC 06/02/2020 EGD MED INC ALL EX DRUG 11/2009 PAST SURGICAL HISTORY OF WISDOM TEETH ALLERGIES Benzalkonium Chloride; Clindamycin; Doxycycline; Flagyl [Metronidazole]; Hand Sales Assistant [employer] [Ethyl Alcohol (Skin Cleanser)]; Iodine; Latex, Natural Rubber; [place]; Meloxicam; Morphine; Penicillin; Prednisone; Singulair [Montelukast]; and Zofran [Ondansetron Hcl (Pf)] MEDICATIONS Current Outpatient Medications Medication Sig ciclopirox (LOPROX) 0.77 % cream Apply 1 application to affected area twice daily. Cholecalciferol, Vitamin D3, 50 mcg (2,000 unit) cap Take 1 capsule by mouth once daily. propranolol (INDERAL) 10 mg tablet TAKE 1 TABLET BY MOUTH THREE TIMES A DAY IF TREMORS PERSIST, IF NOT, MAY TRY TO WEAN DOWN DAILY DOSE diclofenac (VOLTAREN ARTHRITIS PAIN) 1 % topical gel Apply 2 g to affected area four times daily. (Patient not taking: No sig reported) cyclobenzaprine (FLEXERIL) 10 mg tablet Take 1 tablet by mouth three times daily as needed for muscle spasm. (Patient not taking: No sig reported) fluticasone (FLONASE) 50 mcg/actuation nasal spray Use 2 Sprays in each nostril once daily. Rinse mouth after use. (Patient not taking: No sig reported) loratadine (CLARITIN) 10 mg tablet Take 1 tablet by mouth once daily. pantoprazole DR (PROTONIX) 40 mg tablet TAKE 1 TABLET BY MOUTH DAILY medroxyPROGESTERone (DEPO-PROVERA) 150 mg/mL injection use as directed intramuscularly EVERY 12 WEEKS naproxen (NAPROSYN) 500 mg tablet Take 1 tablet by mouth twice daily with meals. (Patient not taking: Reported on 05/17/2022) albuterol HFA (PROVENTIL HFA, VENTOLIN HFA) 90 mcg/actuation inhaler Inhale 2 Puffs as instructed every 6 hours as needed for wheezing/shortness of breath. THEREMS MULTIVITAMIN 400 mcg TAKE 1 TABLET BY MOUTH DAILY [facility] 10 billion cell -200 mg capsule TAKE 1 CAPSULE BY MOUTH DAILY promethazine (PHENERGAN) 25 mg tablet take 1 tablet by mouth three times a day if needed for nausea and vomiting (Patient not taking: No sig reported) albuterol (PROVENTIL) 2.5 mg /3 mL (0.083 %) nebulizer solution Use 3 mL via nebulizer every 4 hours as needed. acetaminophen (TYLENOL EXTRA STRENGTH) 500 mg tablet Take 1 tablet by mouth every 6 hours as needed for Pain. (Patient not taking: No sig reported) Foot Care Products (GEL BUNION CUSHION) pads 1 Device once daily. Apply pad to area daily as needed (Patient not taking: No sig reported) multivitamin tablet Take 1 tablet by mouth once daily. lactobacillus acidophilus 100 mg (1 billion cell) cap(s) Take 1 capsule by mouth once daily. ascorbic acid (VITAMIN C ORAL) Take by mouth. (Patient not taking: No sig reported) lamoTRIgine orally disintegrating (LAMICTAL ODT) 25 mg disintegrating tablet Take 25 mg by mouth once daily. cariprazine (VRAYLAR) 3 mg capsule Take by mouth. benztropine (COGENTIN) 0.5 mg tablet Take 1 mg by mouth twice daily. No current facility-administered medications for this visit. FAMILY HISTORY Problem Relation Age of Onset Alcohol/Drug Mother Arthritis Mother Asthma Mother Cancer Mother CANCER Hypertension Mother Stroke Mother Cancer Father LUNG CANCER Emphysema Father Asthma Brother Breast Cancer Maternal Aunt Hypertension Brother Social History Tobacco Use Smoking status: Every Day Packs/day: 1.50 Years: 25.00 Pack years: 37.50 Types: Cigarettes Last attempt to quit: 03/09/2021 Years since quittin.2 Smokeless tobacco: Never Vaping Use Vaping Use: Never used Substance Use Topics Alcohol use: Not Currently Comment: Quit 4 months ago. Drug use: No REVIEW OF SYSTEMS GENERAL: No weight loss, malaise or fevers/chills HEENT: Negative for frequent or significant headaches, No changes in hearing or vision. NECK: Negative for lumps, goiter, pain and significant neck swelling RESPIRATORY: Negative for cough, hemoptysis, wheezing, dyspnea or shortness of breath CARDIOVASCULAR: Negative for chest pain, leg swelling, orthopnea, or palpitations GI: No nausea, vomiting, or diarrhea/constipation. No hematochezia/melena. No heartburn or reflux symptoms. : No history of dysuria, frequency or incontinence MUSCULOSKELETAL: Negative for joint pain or swelling. SKIN: Negative for lesions, rash, and itching ENDOCRINE: Negative for cold or heat intolerance, polyuria, polydipsia and goiter NEURO: No history of headaches, syncope, paralysis, seizures or tremors MOOD: Negative for depression, anxiety, or suicidal ideation. EXAM: BP 140/90 Pulse 117 Resp 16 Wt 101.2 kg (223 lb) LMP (LMP Unknown) SpO2 97% BMI 34.41 kg/m PHYSICAL EXAM: General Appearance: Well appearing, alert, in no acute distress, well-hydrated, well nourished. Skin: Skin color, texture, turgor normal, no suspicious rashes or lesions. Head: Normocephalic, no masses, lesions, tenderness or abnormalities. Eyes: Anicteric sclera. Extraocular movements are intact. Lungs: Lungs clear to auscultation. No wheezing, rhonchi, rales. Heart: RRR without murmur, gallop, or rubs. No ectopy. Extremities: No deformities, edema, skin discoloration, clubbing or cyanosis. Good capillary refill. Musculoskeletal: No joint swelling, deformity. + Tenderness noted along cervical spine with palpation. Full ROM. Peripheral Pulses: Normal, Capillary refill <2secs, strong peripheral pulses, Pulses palpable. Neurologic: Gait normal. Reflexes normal and symmetric. Sensation grossly intact. Mild termor note in the right leg intermittently. ASSESSMENT/PLAN: 1. Hospital discharge follow-up - ICD9: V67.59, ICD10: Z09 (primary diagnosis) - Doing well since hospital discharge. 2. Encounter for smoking cessation counseling - ICD9: V65.42, 305.1, ICD10: Z71.6 - Cessation encouraged. - Physiologic and physical aspects of tobacco addiction as well as strategies for quitting were discussed. - Counseling was given focusing on the harmful effects of this addiction especially given the patient's medical condition(s) which will be worsened because of the chemicals in tobacco. - NICOTINE 21 MG/24 HR DAILY TRANSDERMAL PATCH - NICOTINE (POLACRILEX) 4 MG BUCCAL LOZENGE 3. Neck pain - ICD9: 723.1, ICD10: M54.2 - Patient requesting xray of neck to evaluate arthritis. - XR CERV OTHER 4V AP/LAT/OBL 4. Essential tremor - ICD9: 333.1, ICD10: G25.0 - Discussed possibility of increasing propanolol to 20 mg. - Patient would like to look over side effects from medication and contact the office if she decides to increase milligram. - Keep upcoming appointment with neurology. 5. Headache, unspecified headache type - ICD9: 784.0, ICD10: R51.9 - May use Naproxen as prescribed. Follow-up as needed or sooner if symptoms get worse do not improve. Discussed treatment plan and patient voices understanding. Patient's questions answered appropriately. Medications and potential side effects were discussed and patient voices understanding. Prabha Springer APRN.CNP This note was partially generated using [employer] voice recognition system. Note was reviewed for accuracy. There may be minor misspellings or grammar miscues with [employer] voice recognition. documented in this encounter [facility] 05-21-2022 Instructions Prabha Springer APRN.CNP - 05/21/2022 11:19 AM EDT 1.) Get xray completed of neck 2.) May continue to use Naproxen as needed for pain and migraines. 3.) Start Nicotine patch, change every 24 hours. May use Nicotine lozenge as needed for cravings. 4.) Make appointment with psychiatrist. 5.) Call the office next week let us know your decision on increasing propanolol to 20 mg tablet. 6.) documented in this encounter [facility] 05-18-2022 Miscellaneous Notes Pt notified and voiced understanding. Elsy Villegas Ma Tried to reach pt, line sound like a fax number. Will try again. Elsy Villegas Ma Please have the patient continue with upcoming visit with Prabha on Tuesday to discuss BP, migraines. Misbah Michel APRN.CNP Pt called in and reports she was taken to the ER last night and her BP was elevated and she had a migraine. She reports she takes 10 mg of Propranolol, and asked what it was for, I said it is for BP, but an off use of it is for migraines. She was like I don't think it is working, because my BP was elevated in the squad and the ER and I've been having migraines for 6 months. She thinks the migraines may be associated to her neck pain. She thinks the arthritis I her neck is getting worse. PT was scheduled on 05/19. Please call and advise. documented in this encounter [facility] 05-17-2022 Instructions Yogi Dandre - 05/17/2022 10:32 AM EDT Images from the original note were not included. Powerstep Original Full length. Can purchase at [employer] here in [place], [employer] in [place] or [place]. Also can find in [place] in [facility]. Powersteps can also be purchased online, starting around $25.00 If you have a metatarsal or dancer pad for your feet apply the pad directly to the insole so you can interchange between your shoes. Find a shoe with a removable insole and take this out and replace with your powerstep insole. Always bring powersteps with you when shopping for shoes so that you can make sure that everything fits well together What is Plantar Fasciitis? Plantar fasciitis is [...] time on their feet, such as nurses, banquet waiter/waitress/waiters, and mail carriers, often experience plantar fasciitis. [...] choose the one that fits the best. Allison with your athletic shoes to find a pair that is comfortable and causes fewer symptoms. Put your shoes on as soon as you get out of bed; going barefoot or wearing slippers may make your pain worse. Good brands include (but are not limited to): New Balance, Asics, Saucony, SAS and Merrel s. Taping: Your doctor may tape your foot [...] times. Switch legs and repeat the exercise. documented in this encounter [facility] 05-17-2022 History of Present illness Narrative Subjective: Patient presents to clinic c/o painful toenails. They state that the nails are especially painful with shoe gear and pressure. Patient states that nails b/l 2nd are painful. Patient may be interested in removal. She also complains of painful heels of b/l feet. No other pedal complaints at this time. Patient states no change in medications or medical history since last visit. Objective: Patient presents to clinic ambulating in [facility] Vasc: DP and PT pulses are faintly palpable bilateral. CFT is less than 5 seconds bilateral. Skin temperature is warm to cool proximal to distal bilateral. There is no edema or varicosities noted. Neuro: Protective sensation is intact to the foot and toes when tested with the 5.07 SWM bilateral. - tinelThe hallux is downgoing bilateral. Derm: Nails 2 b/l are painful, discolored-yellow, thick, crumbly, dystrophic and with subungal debris. Skin is dry and scaly bilateral. There are callus to b/l hallux. no ulcerations, scars, verruca or other lesions noted. Ortho: Muscle strength is 5/5 for all pedal groups tested. Ankle joint DF is full with the knee extended with no pain or crepitus noted. 1st MPJ ROM is full bilateral. Large bunion is noted b/l. There is pain to plantar heel b/l. Assessment: (B35.1) Onychomycosis (primary encounter diagnosis) (M79.675) Pain in toe of left foot (M79.674) Pain in toe of right foot (L85.9) Hyperkeratosis (B35.3) Tinea pedis of both feet (R09.89) Diminished pulses in lower extremity (M72.2) Plantar fasciitis Plan: Patient was seen and evaluated. B/l 2nd toenail was debrided in length and thickness. Discussed removal via permanent matrixectomy. Patient is interested in possibly pursuing this when she stops smoking. Will check pvr to assure adequate perfusion to heal toenail removal Callus reduced to b/l hallux with dremmel Discussed scaling of b/l feet. Will order topical anti-fungal Discussed heel pain. Recommend inserts, stretching and good supportive shoes. Yogi Aoms DPM AMB ROOMING INTAKE FLOWSHEET DATA Risk Screening Do you have concerns about personal safety or safety in the home?: No Pain Pain Level: 8 Pain Location: Other: See Comment (Bilateral feet(toes)) Description: Aching, Stabbing Duration Amount of Time: 5 Duration Units: Years Frequency: Continuous Intervention/Comfort measure: Reposition, Relaxation, Distractions Patient presents with: Right Foot - Established Patient, Follow Up, Ingrown Toenail Left Foot - Established Patient, Follow Up, Ingrown Toenail Patient here for nail care bilateral feet. States that she has some ingrown nails. States she also has a callous on her foot. Maureen Calle RN documented in this encounter [facility] 05-11-2022 Miscellaneous Notes Patient notified of recommendations from PCP, verbalizes understanding of instructions. Yulissa Nicole LPN The order should still be there, she may just need to contact the company to see about getting another monitor sent to her Win Mejia MD Recommendations for pt regarding below message. Ayleen Murrieta LPN Pt called and states she lost the heart monitor she was supposed to wear earlier. Pt states she is having a flutter again today between 1 and 2 pm then left. Pt states she feels she needs to do the heart monitor and someone will need to put it on her because she is not able to do herself. Please review and advise pt. Ayleen Murrieta LPN documented in this encounter [facility] 05-05-2022 Instructions Geovanna Carmichael APRN.PARK MAINTAINER - 05/05/2022 11:52 AM EDT Start Triamcinolone 0.1% ointment two to three times daily for itch Continue Loratadine Keep rash clean and dry. Allow to dry out. documented in this encounter [facility] 05-05-2022 History of Present illness Narrative Images from the original note were not included. Subjective The history is provided by the patient. No translator interpreter was used. HPI Angelica Andujar is a 41 year old female who presents today for CC of left leg rash. The rash started in past 24 hours and is itchy. She has not used any treatment or medications. She has been exposed to poison santa. She denies any new soaps lotions or detergents. BP 112/90 Pulse 114 Temp 36.6 C (97.9 F) Resp 14 Wt 103.7 kg (228 lb 9.6 oz) LMP (LMP Unknown) SpO2 99% BMI 35.28 kg/m Social History Tobacco Use Smoking status: Every Day Packs/day: 1.50 Years: 25.00 Pack years: 37.50 Types: Cigarettes Last attempt to quit: 03/09/2021 Years since quittin.1 Smokeless tobacco: Never Vaping Use Vaping Use: Never used Substance Use Topics Alcohol use: Not Currently Comment: Quit 4 months ago. Drug use: No PAST MEDICAL HISTORY Diagnosis Date 11/2009 Anxiety Arthritis Asthma COPD (chronic obstructive pulmonary disease) ([facility]) Depression Obesity (BMI 30.0-34.9) CHARLES (obstructive sleep apnea) Recurrent UTI Seasonal allergies STD (sexually transmitted disease) Tobacco use disorder 05/18/2021 I have confirmed and edited as necessary, the [facility] Review of Systems Constitutional: Negative for chills and fever. Musculoskeletal: Negative for joint pain and myalgias. Skin: Positive for itching and rash. All other systems reviewed and are negative. Objective Physical Exam Vitals and nursing note reviewed. Pulmonary: Effort: Pulmonary effort is normal. Skin: General: Skin is warm and dry. Findings: Erythema and rash present. Rash is macular. Rash is not papular. Comments: linear streaks of erythematous papules/patcy slightly raised, pruritic Neurological: Mental Status: She is alert and oriented to person, place, and time. Psychiatric: Mood and Affect: Affect normal. ASSESSMENT/PLAN: 1. Rash - ICD9: 782.1, ICD10: R21 Appears to be contact dermatitis Triamcinolone as ordered Loratidine Follow up with pcp prn. Diagnosis and treatment plan were discussed and questions were answered to the patient's satisfaction. Pt acknowledged understanding of concepts and follow up plan. Specific signs and symptoms that would indicate the need for higher level of care were discussed in detail warranting prompt ER evaluation. Geovanna Carmichael APRN.JOSE ROBERTO documented in this encounter [facility] 05-03-2022 Miscellaneous Notes Pt notified via identified VM that PT order has been placed and she can call to schedule. Elsy Villegas Ma PT consult ordered Win Mejia MD Patient called asking for a referral to PT for right leg pain/strain. Was seen 02/2022 for same. States can leave a detailed message on answering machine. documented in this encounter [facility] 04-29-2022 History of Present illness Narrative Patient identified by name and date of . Angelica Andujar is here for a Depo Provera injection. Patient brought medication. Date last injected: 02/04/22 Depo-Provera, 150 mg, administered IM right upper quadrant gluteus, Lot # [id number], expiration date 01/03/2024. Depo-Provera was given without incident. Date of last menses: No LMP recorded (lmp unknown). Patient has had an injection. Irregular bleeding - No Menses ceased - Yes STD prevention discussed: Yes Patient instructed to return to clinic in 12 weeks. [email or web address] Provider Karin Hameed MD was present in office at time of injection. Linda Padilla RN documented in this encounter [facility] 04-12-2022 History of Present illness Narrative Images from the original note were not included. Subjective HPI Nontoxic-appearing female presents urgent care chief complaint possible bug bites and dry scalp. Duration of bug bites today. Duration of dry scalp ongoing. Patient states first noticed bug bites upon arising. States they are itchy they are not painful. Has not used any OTC medications. Additionally patient states she has had a dry scalp. States this has been ongoing for the past few weeks. Has not tried any OTC medications. Denies acute illness sick contacts. No recent lifestyle or medication changes. Denies any fever body aches chills nausea vomiting abdominal pain cough chest pain shortness of breath change in bowel or bladder which. Past medical history prescription medication use allergies reviewed. .Patient presents with: Rash: Possible bited bilateral on legs onset x1 day, reported scalp irritation PAST MEDICAL HISTORY Diagnosis Date 11/2009 Anxiety Arthritis Asthma COPD (chronic obstructive pulmonary disease) (HCC) Depression Obesity (BMI 30.0-34.9) CHARLES (obstructive sleep apnea) Recurrent UTI Seasonal allergies STD (sexually transmitted disease) Tobacco use disorder 05/18/2021 PAST SURGICAL HISTORY Procedure Laterality Date COLONOSCOPY W/BIOPSY SINGLE/MULTIPLE 03/02/11 ESOPHAGOGASTRODUODENOSCOPY TRANSORAL DIAGNOSTIC 11/14/2012 EGD ESOPHAGOGASTRODUODENOSCOPY TRANSORAL DIAGNOSTIC 06/02/2020 EGD MED INC ALL EX DRUG 11/2009 PAST SURGICAL HISTORY OF WISDOM TEETH ALLERGIES Benzalkonium Chloride; Clindamycin; Doxycycline; Flagyl [Metronidazole]; Hand Sales Assistant Institutional Sales [Ethyl Alcohol (Skin Cleanser)]; Iodine; Latex, Natural Rubber; [place]; Meloxicam; Morphine; Penicillin; Prednisone; Singulair [Montelukast]; and Zofran [Ondansetron Hcl (Pf)] MEDICATIONS Cholecalciferol, Vitamin D3, 50 mcg (2,000 unit) cap^Take 1 capsule by mouth once daily.^Disp: 28 capsule^Rfl: 11 propranolol (INDERAL) 10 mg tablet^TAKE 1 TABLET BY MOUTH THREE TIMES A DAY IF TREMORS PERSIST, IF NOT, MAY TRY TO WEAN DOWN DAILY DOSE^Disp: 84 tablet^Rfl: 5 diclofenac (VOLTAREN ARTHRITIS PAIN) 1 % topical gel^Apply 2 g to affected area four times daily.^Disp: 50 g^Rfl: 0 cyclobenzaprine (FLEXERIL) 10 mg tablet^Take 1 tablet by mouth three times daily as needed for muscle spasm.^Disp: 18 tablet^Rfl: 0 fluticasone (FLONASE) 50 mcg/actuation nasal spray^Use 2 Sprays in each nostril once daily. Rinse mouth after use.^Disp: 1 Each^Rfl: 0 loratadine (CLARITIN) 10 mg tablet^Take 1 tablet by mouth once daily.^Disp: 28 tablet^Rfl: [address] (PROTONIX) 40 mg tablet^TAKE 1 TABLET BY MOUTH DAILY^Disp: 30 tablet^Rfl: 11 medroxyPROGESTERone (DEPO-PROVERA) 150 mg/mL injection^use as directed intramuscularly EVERY 12 WEEKS^Disp: 1 mL^Rfl: 4 naproxen (NAPROSYN) 500 mg tablet^Take 1 tablet by mouth twice daily with meals.^Disp: 60 tablet^Rfl: 6 albuterol HFA (PROVENTIL HFA, VENTOLIN HFA) 90 mcg/actuation inhaler^Inhale 2 Puffs as instructed every 6 hours as needed for wheezing/shortness of breath.^Disp: 18 g^Rfl: 3 THEREMS MULTIVITAMIN 400 mcg^TAKE 1 TABLET BY MOUTH DAILY^Disp: 30 tablet^Rfl: 11 [facility] 10 billion cell -200 mg capsule^TAKE 1 CAPSULE BY MOUTH DAILY^Disp: 30 capsule^Rfl: 11 promethazine (PHENERGAN) 25 mg tablet^take 1 tablet by mouth three times a day if needed for nausea and vomiting^Disp: 60 tablet^Rfl: 3 albuterol (PROVENTIL) 2.5 mg /3 mL (0.083 %) nebulizer solution^Use 3 mL via nebulizer every 4 hours as needed.^Disp: 1 Package^Rfl: 0 acetaminophen (TYLENOL EXTRA STRENGTH) 500 mg tablet^Take 1 tablet by mouth every 6 hours as needed for Pain.^Disp: 30 tablet^Rfl: 0 Foot Care Products (GEL BUNION CUSHION) pads^1 Device once daily. Apply pad to area daily as needed^Disp: 14 Each^Rfl: 2 multivitamin tablet^Take 1 tablet by mouth once daily.^Disp: 30 tablet^Rfl: 11 lactobacillus acidophilus 100 mg (1 billion cell) cap(s)^Take 1 capsule by mouth once daily.^Disp: 30 capsule^Rfl: 11 ascorbic acid (VITAMIN C ORAL)^Take by mouth.^Disp: ^Rfl: lamoTRIgine orally disintegrating (LAMICTAL ODT) 25 mg disintegrating tablet^Take 25 mg by mouth once daily. ^Disp: ^Rfl: cariprazine (VRAYLAR) 3 mg capsule^Take by mouth.^Disp: ^Rfl: benztropine (COGENTIN) 0.5 mg tablet^Take 0.5 mg by mouth twice daily.^Disp: ^Rfl: FAMILY HISTORY Problem Relation Age of Onset Alcohol/Drug Mother Arthritis Mother Asthma Mother Cancer Mother CANCER Hypertension Mother Stroke Mother Cancer Father LUNG CANCER Emphysema Father Asthma Brother Breast Cancer Maternal Aunt Hypertension Brother Social History Tobacco Use Smoking status: Every Day Packs/day: 1.00 Types: Cigarettes Last attempt to quit: 03/09/2021 Years since quittin.0 Smokeless tobacco: Never Vaping Use Vaping Use: Never used Substance Use Topics Alcohol use: Not Currently Comment: Quit 4 months ago. Drug use: No BP 124/82 Pulse 118 Temp 36.6 C (97.9 F) Resp 18 Wt 103.4 kg (228 lb) LMP (LMP Unknown) SpO2 98% BMI 35.18 kg/m Hr 98 Review of Systems Constitutional: Negative for chills, fever and malaise/fatigue. HENT: Negative for congestion, ear discharge, ear pain, sinus pain and sore throat. Eyes: Negative for blurred vision, pain, discharge and redness. Respiratory: Negative for cough, hemoptysis, sputum production, shortness of breath, wheezing and stridor. Cardiovascular: Negative for chest pain. Gastrointestinal: Negative for abdominal pain, diarrhea, nausea and vomiting. Musculoskeletal: Negative for myalgias. Skin: Positive for itching. Negative for rash. Neurological: Negative for dizziness and headaches. Objective Physical Exam Constitutional: General: She is not in acute distress. Appearance: She is not diaphoretic. HENT: Head: Normocephalic. Mouth/Throat: Mouth: Mucous membranes are moist. Pharynx: Oropharynx is clear. No oropharyngeal exudate or posterior oropharyngeal erythema. Eyes: Conjunctiva/sclera: Conjunctivae normal. Pupils: Pupils are equal, round, and reactive to light. Cardiovascular: Rate and Rhythm: Normal rate and regular rhythm. Heart sounds: Normal heart sounds. Pulmonary: Effort: Pulmonary effort is normal. No tachypnea, accessory muscle usage or respiratory distress. Breath sounds: Normal breath sounds. No stridor. No wheezing, rhonchi or rales. Abdominal: Palpations: Abdomen is soft. Tenderness: There is no abdominal tenderness. Musculoskeletal: Cervical back: Normal range of motion and neck supple. No rigidity or tenderness. Lymphadenopathy: Cervical: No cervical adenopathy. Skin: General: Skin is warm and dry. Comments: Area representing insect bites noted highlighted area. No remote redness. No drainage. No evidence of bacterial infection. Dandruff noted patient's scalp line. No breaks in the skin. No erythema. Neurological: Mental Status: She is alert and oriented to person, place, and time. ASSESSMENT/PLAN: 1. Insect bite of lower extremity, unspecified laterality, initial encounter - ICD9: 916.4, E906.4, ICD10: S80.869A, Patient diagnosed with insect bite. Will use hydrocortisone cream as instructed. Will use conditioning shampoo to for scalp hydration. Patient was educated on supportive therapies. Patient will follow up with primary care provider as needed. Patient was instructed to immediately proceed to emergency room for any new, worsening, or symptoms lasting longer than anticipated. The patient's clinical presentation is otherwise unremarkable at this time. Based on exam and clinical finding, the patient is stable for discharge. Plan of care was discussed with patient. Patient verbalizes understanding and agrees to plan of care. This note was generated using ISH software. It may contain errors in wording, punctuation, or spelling. Main Hamilton APRN.JOSE ROBERTO documented in this encounter [facility] 04-03-2022 Miscellaneous Notes Phone call placed patient advised (see prior provider encounter) Patient verbalized understanding, agreed with plan of care. Fidelia Murrieta LPN ----- Message from Ian Ying MD sent at 04/03/2022 8:00 AM EDT ----- COVID negative. documented in this encounter [facility] 04-02-2022 History of Present illness Narrative Patient presents with: Sore Throat: cough, diarrhea x9 days HPI: Feeling sick for 1 1/2 weeks. Benign labs and COVID negative in the ER 2 days ago. She has a sore throat today and worse cough and was unable to go back to work today as planned. Positive symptoms: Cough, Shortness of breath, Wheezing, Sore throat, Malaise, Fatigue, mild Nausea, Diarrhea, Negative symptoms: Fever, Vomiting, OTC: none. MEDICATIONS: Current Outpatient Medications Medication Sig Cholecalciferol, Vitamin D3, 50 mcg (2,000 unit) cap Take 1 capsule by mouth once daily. propranolol (INDERAL) 10 mg tablet TAKE 1 TABLET BY MOUTH THREE TIMES A DAY IF TREMORS PERSIST, IF NOT, MAY TRY TO WEAN DOWN DAILY DOSE diclofenac (VOLTAREN ARTHRITIS PAIN) 1 % topical gel Apply 2 g to affected area four times daily. cyclobenzaprine (FLEXERIL) 10 mg tablet Take 1 tablet by mouth three times daily as needed for muscle spasm. fluticasone (FLONASE) 50 mcg/actuation nasal spray Use 2 Sprays in each nostril once daily. Rinse mouth after use. loratadine (CLARITIN) 10 mg tablet Take 1 tablet by mouth once daily. pantoprazole DR (PROTONIX) 40 mg tablet TAKE 1 TABLET BY MOUTH DAILY medroxyPROGESTERone (DEPO-PROVERA) 150 mg/mL injection use as directed intramuscularly EVERY 12 WEEKS naproxen (NAPROSYN) 500 mg tablet Take 1 tablet by mouth twice daily with meals. albuterol HFA (PROVENTIL HFA, VENTOLIN HFA) 90 mcg/actuation inhaler Inhale 2 Puffs as instructed every 6 hours as needed for wheezing/shortness of breath. THEREMS MULTIVITAMIN 400 mcg TAKE 1 TABLET BY MOUTH DAILY [facility] 10 billion cell -200 mg capsule TAKE 1 CAPSULE BY MOUTH DAILY promethazine (PHENERGAN) 25 mg tablet take 1 tablet by mouth three times a day if needed for nausea and vomiting albuterol (PROVENTIL) 2.5 mg /3 mL (0.083 %) nebulizer solution Use 3 mL via nebulizer every 4 hours as needed. acetaminophen (TYLENOL EXTRA STRENGTH) 500 mg tablet Take 1 tablet by mouth every 6 hours as needed for Pain. Foot Care Products (GEL BUNION CUSHION) pads 1 Device once daily. Apply pad to area daily as needed multivitamin tablet Take 1 tablet by mouth once daily. lactobacillus acidophilus 100 mg (1 billion cell) cap(s) Take 1 capsule by mouth once daily. ascorbic acid (VITAMIN C ORAL) Take by mouth. lamoTRIgine orally disintegrating (LAMICTAL ODT) 25 mg disintegrating tablet Take 25 mg by mouth once daily. cariprazine (VRAYLAR) 3 mg cap Take by mouth. benztropine (COGENTIN) 0.5 mg tablet Take 0.5 mg by mouth twice daily. Current Facility-Administered Medications Medication Dose Route Frequency medroxyPROGESTERone 150 mg injection (DEPO-PROVERA) 150 mg INTRAMUSCULAR every 12 weeks ALLERGIES: ALLERGIES Allergen Reactions Benzalkonium Chlori* Other: See Comments Skin irritations Clindamycin GI Upset Doxycycline GI Upset stomach cramps Flagyl [Metronidazo* Hives Hand Sales Assistant Institutional Sales [Eth* Rash PT HAS SENSITIVE SKIN. O.K. FOR MEDICAL PROFESSIONAL TO USE HAND CONTENT DEVELOPMENT MANAGER AND THEN TOUCH HER, BUT SHE HERSELF DOES NOT USE IT. Iodine Rash Latex, Natural Rubb* Rash Local itching with contact and rash [place] Intolerance Sore throat Meloxicam Unknown Morphine Itching Penicillin Unknown Prednisone Other: See Comments Moodiness, restlessness, states feels like crap all over . Singulair [Monteluk* Unknown Possible rash Zofran [Ondansetron* Other: See Comments Zofran causes cramping and constipation VITALS: BP 126/84 Pulse 100 Temp 36.7 C (98 F) Resp 20 Wt 103.3 kg (227 lb 12.8 oz) LMP (LMP Unknown) SpO2 96% BMI 35.15 kg/m PHYSICAL EXAM: GEN: Somewhat ill appearing with malaise HEENT: PERRL, EOMI, conjunctiva clear Ears: canals with trace distal circumferential cerumen. TMs without erythema, bulge, or effusion Sinuses: non-tender frontal sinus, non-tender maxillary sinuses Throat: moist mucous membranes, mild erythema, no exudate Neck: supple, no thyromegaly, no lymphadenopathy HEART: regular rate and rhythm, no murmurs LUNGS: clear to auscultation, no wheezes or crackles, no increased WOB; coughs with deep breaths. ASSESSMENT/PLAN: 1. Sore throat - ICD9: 462, ICD10: J02.9 (primary diagnosis) 2. Viral syndrome - ICD9: 079.99, ICD10: B34.9 - STREP A MOLECULAR (POC) - negative - suspect viral illness, differential includes COVID-19 which is prevalent in the community (probable exposure in ER 2 days ago). - Discussed supportive care treatment with home isolation, rest, and hydration. - Red flags to seek further treatment include chest pain, shortness of breath, and lethargy; in the ER if severe. - 2019 CORONAVIRUS Ian Ying MD documented in this encounter [facility] 03-19-2022 Miscellaneous Notes The following approved medication requests have been transmitted electronically. Signed Prescriptions Disp Refills Cholecalciferol, Vitamin D3, 50 mcg (2,000 unit) cap 28 capsule 11 Sig: Take 1 capsule by mouth once daily. KAE: No Authorizing Provider: WIN MEJIA propranolol (INDERAL) 10 mg tablet 84 tablet 5 Sig: TAKE 1 TABLET BY MOUTH THREE TIMES A DAY IF TREMORS PERSIST, IF NOT, MAY TRY TO WEAN DOWN DAILY DOSE KAE: No Authorizing Provider: WIN MEJIA Ma OK to refill as ordered Win Mejia MD [facility] pharmacy calls, medications need to be sent there and not [facility]. Lilian Marks RN documented in this encounter [facility] 03-19-2022 Miscellaneous Notes OK to refill as ordered Win Mejia MD Patient has been identified by name and date of : Yes Pharmacy phones for refill(s): Pending Prescriptions Disp Refills CHOLECALCIFEROL (VITAMIN D3) 50 MCG (2,000 UNIT) CAPSULE 28 capsule 11 Sig: Take 1 capsule by mouth once daily. KAE: No PROPRANOLOL 10 MG TABLET 84 tablet 5 Sig: TAKE 1 TABLET BY MOUTH THREE TIMES A DAY IF TREMORS PERSIST, IF NOT, MAY TRY TO WEAN DOWN DAILY DOSE KAE: No Date of last office visit with pcp: 02-24-22. Next appt: none Last 2 Encounter Wt Readings: Date: Wt: 02/24/2022 105.2 kg (232 lb) 02/08/2022 108.2 kg (238 lb 9.6 oz) Previous labs/tests for medication: Blood Pressure: BUN (mg/dL) Date Value 02/24/2022 10 01/13/2021 12 Sodium (mmol/L) Date Value 02/24/2022 138 01/13/2021 139 Last 1 Encounter BP Readings: Date: BP: 02/24/2022 130/88 Blood Counts: WBC (k/uL) Date Value 02/24/2022 10.22 01/19/2021 12.55 RBC (m/uL) Date Value 02/24/2022 5.39 01/19/2021 5.21 Hematocrit (%) Date Value 02/24/2022 46.4 01/19/2021 45.4 Hemoglobin (g/dL) Date Value 02/24/2022 15.3 01/19/2021 15.1 Platelet Count (k/uL) Date Value 02/24/2022 242 01/19/2021 220 Liver Function: ALT (U/L) Date Value 02/24/2022 23 01/13/2021 22 AST (U/L) Date Value 02/24/2022 17 01/13/2021 18 Please advise. Thank you. Marifer Masters RN documented in this encounter [facility] 03-15-2022 Miscellaneous Notes Letter mailed to pt home to call office back regarding her zio monitor. Elsy Villegas Ma Following up on uncompleted Zio Monitor tests/nonoreturned devices. Unable to reach patient. Left VM to return call to office. Please read below and advise. If patient still has unopened box, patient will need to return the unopened box to company, directly. It already has a pre-paid shipping label, so she just needs to put it in her mailbox or drop it off at [facility] Luisana Madden MA documented in this encounter [facility] 02-25-2022 Miscellaneous Notes TC to pt. Left a detailed message on a secure line with updates. Yulissa Nicole LPN Can you please call the patient and let her know that her lab work was all relatively normal. I see no causes for her symptoms at this time. I would recommend that she stay well-hydrated and eat a bland diet to see if diarrhea improves. She may wean off the propanolol as discussed during office visit. I would recommend that she try to keep her appointment with her psychiatrist. No further testing needed at this time. Thank you. Prabha Springer APRN.PARK MAINTAINER documented in this encounter [facility] 02-24-2022 Instructions Prabha Springer APRN.CNP - 02/24/2022 1:14 PM EDT 1.) Get labs and stool testing completing. 2.) Stay well hydrated. 3.) Red flag symptoms go to ER. 4.) You may wean off the propanolol, take 1 tablet every other day for 5 days and then may stop. 5.) Follow up pending test results. documented in this encounter [facility] 02-24-2022 History of Present illness Narrative This is a 41 year old female who presents today with: Patient presents with: Acute Visit: diarrhea/fatique HISTORY OF PRESENT ILLNESS: Angelica Andujar is a 41 year old female. Patient presents with: Acute Visit: diarrhea/fatique Here in the office for diarrhea and fatigue. Symptoms started about 2 weeks ago. Having about 1-2 episodes of diarrhea with accompany cramping. Refers she will have about 5-7 BM's per day with varying consistency. No mucus or blood in the stool. No fever or chills. No dietary changes. Memory Concerns: Questioning if propranolol may cause difficulty with memory. Has been taking propanolol 10 mg once daily, however this is ordered 3 times daily. Refers that her chiropractor told her that the medication could be causing her symptoms. She has been having memory difficulty for quite come time. PAST MEDICAL HISTORY: PAST MEDICAL HISTORY Diagnosis Date 11/2009 Anxiety Arthritis Asthma COPD (chronic obstructive pulmonary disease) ([facility]) Depression Obesity (BMI 30.0-34.9) CHARLES (obstructive sleep apnea) Recurrent UTI Seasonal allergies STD (sexually transmitted disease) Tobacco use disorder 05/18/2021 PAST SURGICAL HISTORY Procedure Laterality Date COLONOSCOPY W/BIOPSY SINGLE/MULTIPLE 03/02/11 ESOPHAGOGASTRODUODENOSCOPY TRANSORAL DIAGNOSTIC 11/14/2012 EGD ESOPHAGOGASTRODUODENOSCOPY TRANSORAL DIAGNOSTIC 06/02/2020 EGD MED INC ALL EX DRUG 11/2009 PAST SURGICAL HISTORY OF WISDOM TEETH ALLERGIES Benzalkonium Chloride; Clindamycin; Doxycycline; Flagyl [Metronidazole]; Hand Sales Assistant Institutional Sales [Ethyl Alcohol (Skin Cleanser)]; Iodine; Latex, Natural Rubber; [place]; Meloxicam; Morphine; Penicillin; Prednisone; Singulair [Montelukast]; and Zofran [Ondansetron Hcl (Pf)] MEDICATIONS Current Outpatient Medications Medication Sig diclofenac (VOLTAREN ARTHRITIS PAIN) 1 % topical gel Apply 2 g to affected area four times daily. cyclobenzaprine (FLEXERIL) 10 mg tablet Take 1 tablet by mouth three times daily as needed for muscle spasm. fluticasone (FLONASE) 50 mcg/actuation nasal spray Use 2 Sprays in each nostril once daily. Rinse mouth after use. loratadine (CLARITIN) 10 mg tablet Take 1 tablet by mouth once daily. pantoprazole DR (PROTONIX) 40 mg tablet TAKE 1 TABLET BY MOUTH DAILY medroxyPROGESTERone (DEPO-PROVERA) 150 mg/mL injection use as directed intramuscularly EVERY 12 WEEKS naproxen (NAPROSYN) 500 mg tablet Take 1 tablet by mouth twice daily with meals. albuterol HFA (PROVENTIL HFA, VENTOLIN HFA) 90 mcg/actuation inhaler Inhale 2 Puffs as instructed every 6 hours as needed for wheezing/shortness of breath. THEREMS MULTIVITAMIN 400 mcg TAKE 1 TABLET BY MOUTH DAILY [facility] 10 billion cell -200 mg capsule TAKE 1 CAPSULE BY MOUTH DAILY promethazine (PHENERGAN) 25 mg tablet take 1 tablet by mouth three times a day if needed for nausea and vomiting propranolol (INDERAL) 10 mg tablet TAKE 1 TABLET BY MOUTH THREE TIMES A DAY IF TREMORS PERSIST, IF NOT, MAY TRY TO WEAN DOWN DAILY DOSE Cholecalciferol, Vitamin D3, 50 mcg (2,000 unit) cap TAKE 1 CAPSULE BY MOUTH DAILY albuterol (PROVENTIL) 2.5 mg /3 mL (0.083 %) nebulizer solution Use 3 mL via nebulizer every 4 hours as needed. acetaminophen (TYLENOL EXTRA STRENGTH) 500 mg tablet Take 1 tablet by mouth every 6 hours as needed for Pain. Foot Care Products (GEL BUNION CUSHION) pads 1 Device once daily. Apply pad to area daily as needed multivitamin tablet Take 1 tablet by mouth once daily. lactobacillus acidophilus 100 mg (1 billion cell) cap(s) Take 1 capsule by mouth once daily. ascorbic acid (VITAMIN C ORAL) Take by mouth. lamoTRIgine orally disintegrating (LAMICTAL ODT) 25 mg disintegrating tablet Take 25 mg by mouth once daily. cariprazine (VRAYLAR) 3 mg cap Take by mouth. benztropine (COGENTIN) 0.5 mg tablet Take 0.5 mg by mouth twice daily. Current Facility-Administered Medications Medication Dose Route Frequency medroxyPROGESTERone 150 mg injection (DEPO-PROVERA) 150 mg INTRAMUSCULAR every 12 weeks FAMILY HISTORY Problem Relation Age of Onset Alcohol/Drug Mother Arthritis Mother Asthma Mother Cancer Mother CANCER Hypertension Mother Stroke Mother Cancer Father LUNG CANCER Emphysema Father Asthma Brother Breast Cancer Maternal Aunt Hypertension Brother Social History Tobacco Use Smoking status: Current Every Day Smoker Packs/day: 1.00 Types: Cigarettes Last attempt to quit: 03/09/2021 Years since quittin.9 Smokeless tobacco: Never Used Vaping Use Vaping Use: Never used Substance Use Topics Alcohol use: Not Currently Comment: Quit 4 months ago. Drug use: No REVIEW OF SYSTEMS GENERAL: + Fatigue HEENT: Negative for frequent or significant headaches, No changes in hearing or vision. NECK: Negative for lumps, goiter, pain and significant neck swelling RESPIRATORY: Negative for cough, hemoptysis, wheezing, dyspnea or shortness of breath CARDIOVASCULAR: Negative for chest pain, leg swelling, orthopnea, or palpitations GI: + Diarrhea : No history of dysuria, frequency or incontinence MUSCULOSKELETAL: Negative for joint pain or swelling. SKIN: Negative for lesions, rash, and itching ENDOCRINE: Negative for cold or heat intolerance, polyuria, polydipsia and goiter NEURO: No history of headaches, syncope, paralysis, seizures or tremors MOOD: Negative for depression, anxiety, or suicidal ideation. EXAM: BP 130/88 Pulse 106 Resp 16 Wt 105.2 kg (232 lb) LMP (LMP Unknown) SpO2 96% BMI 35.80 kg/m PHYSICAL EXAM: General Appearance: Well appearing, alert, in no acute distress, well-hydrated, well nourished. Skin: Skin color, texture, turgor normal, no suspicious rashes or lesions. Head: Normocephalic, no masses, lesions, tenderness or abnormalities. Eyes: Anicteric sclera. Extraocular movements are intact. Neck: Supple, no adenopathy; thyroid symmetric, normal size, no bruits. Lungs: Lungs clear to auscultation. No wheezing, rhonchi, rales. Heart: RRR without murmur, gallop, or rubs. No ectopy. Abdomen: Normal abdominal exam, Abdomen soft, non-tender. No masses, organomegaly, Negative CVA tenderness. + Bowel sounds hypoactive. Extremities: No deformities, edema, skin discoloration, clubbing or cyanosis. Good capillary refill. Peripheral Pulses: Normal, Capillary refill <2secs, strong peripheral pulses, Pulses palpable. Neurologic: Gait normal. Reflexes normal and symmetric. Sensation grossly intact. ASSESSMENT/PLAN: 1. Fatigue, unspecified type - ICD9: 780.79, ICD10: R53.83 (primary diagnosis) - Get the following labs completed to further evaluate any acute causes of her symptoms. - Instructed the patient to stay well-hydrated. - CBC + DIFF - COMP METABOLIC PANEL - VITAMIN B12 BLOOD - VITAMIN D 25 HYDROXY - TSH BLD 2. Diarrhea, unspecified type - ICD9: 787.91, ICD10: R19.7 - Complete stool testing. - Red flag symptoms given to this patient, she verbalizes understanding when to seek emergency care. - FECAL OCCULT BLOOD TEST - ENTERIC BACTERIAL PANEL BY PCR - OVA + PARA MICROSCOPIC 3. Tremor of right hand - ICD9: 781.0, ICD10: R25.1 - May wean off of Propanolol per patient request. Follow-up pending test results or sooner as needed. Discussed treatment plan and patient voices understanding. Patient's questions answered appropriately. Medications and potential side effects were discussed and patient voices understanding. Prabha Springer APRN.JOSE ROBERTO This note was partially generated using ISH voice recognition system. Note was reviewed for accuracy. There may be minor misspellings or grammar miscues with [employer] voice recognition. documented in this encounter [facility] 02-24-2022 Nurse Note Pt stated its been 2 weeks of diarrhea/fatique. Pt has not been taking anything for this. Pt unable to remember when all this started in the past, but mentioned she has had it and was told not to take Imodium. Yulissa Nicole LPN documented in this encounter [facility] 02-23-2022 Miscellaneous Notes Pt notified, states she plans of keeping the appt tomorrow with Prabha, states she has someone picking her up to take her to appt. Elsy Villegas Ma I would advise her to try and keep her scheduled appt with Prabha. Win Mejia MD Pt called in and reports she is having fatigue from having multiple BM episodes some are diarrhea. Pt was scheduled 02/24/22 100 pm with Prabha Springer MUSIC GRAPHER. Pt was told to be her 10-15 min early to get checked in, but she states she is at the mercy of the [employer] transportation. Pt also wanted provider to know that she has been having memory loss from the Propranolol, she states she only takes it daily but wants to wean herself off. Pt was asked if it helped with tremors, and she states she didn't know because she doesn't pay enough attention to her right hand. Please call and advise. documented in this encounter [facility] 02-17-2022 Miscellaneous Notes Noted Win Mejia MD Protocol Recommended: ER now. Patient agreeable. Reason for Disposition Patient sounds very sick or weak to the triager Answer Assessment - Initial Assessment Questions 1. DIARRHEA SEVERITY: Patient unable to state how many times she has had diarrhea in 24 hour period-states she has memory loss. States she has been in and out of the bathroom for a week. 2. ONSET:About a week ago 3. BM CONSISTENCY: like swampy water 4. VOMITING: no 5. ABDOMINAL PAIN: Cramping comes and goes - severe when has it 6. ABDOMINAL PAIN SEVERITY:severe 7. ORAL INTAKE: States due to memory problems she is unable to state how much fluid she has been drinking-states she has been lying in bed but when gets up she tries to drink 8. HYDRATION: Yes dry mouth, States lips are dry. Not too weak to stand, States she has dizziness. 9. EXPOSURE: Not that she is aware of. 10. ANTIBIOTIC USE: no 11. OTHER SYMPTOMS: States she does not feel well, extreme fatigue and experiencing bowel incontinence. Denies fever but has not taken her temperature so unsure, denies chills, has hemorrhoid and sees blood on toilet paper when wipes 12. :no Protocols used: [id number] documented in this encounter [facility] 02-09-2022 Miscellaneous Notes Pts sister called and is notified of providers results. She voices understanding, and will relay the message to her sister as her phone is shut off. Maureen Benjamin RN Please let the patient know that her xray of the right leg was normal. Misbah Michel APRN.JOSE ROBERTO documented in this encounter [facility] 02-08-2022 History of Present illness Narrative Chief Complaint Patient presents with: Blood Pressure Pain HPI Angelica Andujar is a 41 year old female who presents here today for elevated blood pressure. Pt here today for elevated BP. Has been seen in the office on 02/02/22 by Anastasia Herrera CNP for headaches. Pt seen in 3 x in January and multiple other visit since the beginning of the year. Pt daily smoker. BP - Reports intermittent episodes of elevated BP over the last week. Denies any chest pain. Does have sob due to COPD and Asthma. Pt was given Zio patch to put on her, but forgot to bring it. Ordered by Prabha Springer CNP on 12/21/21. Pt has device at home. Leg - Ongoing R Leg pain x 3 months. States this has been ongoing for 3 months and dx as a muscle strain and no one will do an x-ray. Pt denies any injury to her leg, it just started. Pain today a 7/10 described as constant sharp, shooting and throbbing. Feels like an ongoing rigoberto horse. Has taken Naproxen for pain which does not help. Has not taken Flexeril 10 mg as this could cause dizziness. Pain located in posterior calf, no swelling, also tenderness to anterior calf. Was seen in [facility] ED for edema when she called into the office and spoke with triage Nurse. All work up done was negative. Past medical history, appointments, medications, allergies reviewed. Previous Medical History PAST MEDICAL HISTORY Diagnosis Date 11/2009 Anxiety Arthritis Asthma COPD (chronic obstructive pulmonary disease) (HCC) Depression Obesity (BMI 30.0-34.9) CHARLES (obstructive sleep apnea) Recurrent UTI Seasonal allergies STD (sexually transmitted disease) Tobacco use disorder 05/18/2021 Previous Surgical History PAST SURGICAL HISTORY Procedure Laterality Date COLONOSCOPY W/BIOPSY SINGLE/MULTIPLE 03/02/11 ESOPHAGOGASTRODUODENOSCOPY TRANSORAL DIAGNOSTIC 11/14/2012 EGD ESOPHAGOGASTRODUODENOSCOPY TRANSORAL DIAGNOSTIC 06/02/2020 EGD MED INC ALL EX DRUG 11/2009 PAST SURGICAL HISTORY OF WISDOM TEETH Family History FAMILY HISTORY Problem Relation Age of Onset Alcohol/Drug Mother Arthritis Mother Asthma Mother Cancer Mother CANCER Hypertension Mother Stroke Mother Cancer Father LUNG CANCER Emphysema Father Asthma Brother Breast Cancer Maternal Aunt Hypertension Brother Patient Allergies ALLERGIES Allergen Reactions Benzalkonium Chlori* Other: See Comments Skin irritations Clindamycin GI Upset Doxycycline GI Upset stomach cramps Flagyl [Metronidazo* Hives Hand Sales Assistant Institutional Sales [Eth* Rash PT HAS SENSITIVE SKIN. O.K. FOR MEDICAL PROFESSIONAL TO USE HAND CONTENT DEVELOPMENT MANAGER AND THEN TOUCH HER, BUT SHE HERSELF DOES NOT USE IT. Iodine Rash Latex, Natural Rubb* Rash Local itching with contact and rash [place] Intolerance Sore throat Meloxicam Unknown Morphine Itching Penicillin Unknown Prednisone Other: See Comments Moodiness, restlessness, states feels like crap all over . Singulair [[place]* Unknown Possible rash Zofran [Ondansetron* Other: See Comments Zofran causes cramping and constipation Current Medications Current Outpatient Medications on File Prior to Visit Medication Sig diclofenac (VOLTAREN ARTHRITIS PAIN) 1 % topical gel Apply 2 g to affected area four times daily. cyclobenzaprine (FLEXERIL) 10 mg tablet Take 1 tablet by mouth three times daily as needed for muscle spasm. fluticasone (FLONASE) 50 mcg/actuation nasal spray Use 2 Sprays in each nostril once daily. Rinse mouth after use. loratadine (CLARITIN) 10 mg tablet Take 1 tablet by mouth once daily. pantoprazole DR (PROTONIX) 40 mg tablet TAKE 1 TABLET BY MOUTH DAILY medroxyPROGESTERone (DEPO-PROVERA) 150 mg/mL injection use as directed intramuscularly EVERY 12 WEEKS naproxen (NAPROSYN) 500 mg tablet Take 1 tablet by mouth twice daily with meals. albuterol HFA (PROVENTIL HFA, VENTOLIN HFA) 90 mcg/actuation inhaler Inhale 2 Puffs as instructed every 6 hours as needed for wheezing/shortness of breath. beclomethasone (QVAR REDIHALER) 80 mcg/actuation inhaler Inhale 2 Puffs as instructed twice daily. benzonatate (TESSALON PERLES) 100 mg capsule Take 1 capsule by mouth three times daily as needed for cough. Ipratropium [place] (ATROVENT) 21 mcg (0.03 %) nasal spray Use 2 Sprays in the nose every 12 hours. THEREMS MULTIVITAMIN 400 mcg TAKE 1 TABLET BY MOUTH DAILY [facility] 10 billion cell -200 mg capsule TAKE 1 CAPSULE BY MOUTH DAILY promethazine (PHENERGAN) 25 mg tablet take 1 tablet by mouth three times a day if needed for nausea and vomiting propranolol (INDERAL) 10 mg tablet TAKE 1 TABLET BY MOUTH THREE TIMES A DAY IF TREMORS PERSIST, IF NOT, MAY TRY TO WEAN DOWN DAILY DOSE Cholecalciferol, Vitamin D3, 50 mcg (2,000 unit) cap TAKE 1 CAPSULE BY MOUTH DAILY albuterol (PROVENTIL) 2.5 mg /3 mL (0.083 %) nebulizer solution Use 3 mL via nebulizer every 4 hours as needed. acetaminophen (TYLENOL EXTRA STRENGTH) 500 mg tablet Take 1 tablet by mouth every 6 hours as needed for Pain. Foot Care Products (GEL BUNION CUSHION) pads 1 Device once daily. Apply pad to area daily as needed multivitamin tablet Take 1 tablet by mouth once daily. lactobacillus acidophilus 100 mg (1 billion cell) cap(s) Take 1 capsule by mouth once daily. ascorbic acid (VITAMIN C ORAL) Take by mouth. lamoTRIgine orally disintegrating (LAMICTAL ODT) 25 mg disintegrating tablet Take 25 mg by mouth once daily. cariprazine (VRAYLAR) 3 mg cap Take by mouth. benztropine (COGENTIN) 0.5 mg tablet Take 0.5 mg by mouth twice daily. Current Facility-Administered Medications on File Prior to Visit Medication medroxyPROGESTERone 150 mg injection (DEPO-PROVERA) Social History Social History Tobacco Use Smoking status: Current Every Day Smoker Packs/day: 1.00 Types: Cigarettes Last attempt to quit: 03/09/2021 Years since quittin.9 Smokeless tobacco: Never Used Vaping Use Vaping Use: Never used Substance Use Topics Alcohol use: Not Currently Comment: Quit 4 months ago. Drug use: No EXAM: BP 134/92 (BP Site: Left Arm, BP Position: Sitting, BP Cuff Size: Regular Adult) Pulse 92 Resp 16 Wt 108.2 kg (238 lb 9.6 oz) LMP (LMP Unknown) BMI 36.82 kg/m General Appearance: Well appearing, alert, in no acute distress, well-hydrated, well nourished.. Lungs: Lungs clear to auscultation. No wheezing, rhonchi, rales.. Heart: RRR without murmur, gallop, or rubs. No ectopy. Right leg: no swelling, no muscle tightness, mild tenderness to antreior brito. Health Maintenance List PNEUMOCOCCAL(1 - PCV) Never done COVID-19 VACCINE(2 - Pfizer series) due on 09/15/2021 DEPRESSION SCREENING due on 12/01/2021 INFLUENZA(Season Ended) due on 05/06/2022 MAMMOGRAM due on 08/19/2022 ANNUAL PCP TEAM CHRONIC DISEASE VISIT due on 02/02/2023 PAP TESTING due on 08/04/2023 HPV TESTING due on 08/04/2023 DTAP,TDAP,TD(8 - Td or Tdap) due on 01/22/2025 SPIROMETRY Completed HEPATITIS C SCREENING Completed HIV SCREENING Completed Data reviewed None ASSESSMENT/PLAN: 1. Elevated blood pressure reading without diagnosis of hypertension - ICD9: 796.2, ICD10: R03.0 (primary diagnosis) - Encouraged dietary sodium restriction/DASH diet - Recommended regular aerobic exercise. - Recommend home blood pressure monitoring, to bring results in on next visit 2. Right leg pain - ICD9: 729.5, ICD10: M79.604 Will check XR; continue symptomatic treatment - XR TIBIA FIBULA 2V AP/LAT RIGHT 3. Bipolar disorder, in partial remission, most recent episode depressed (HCC) - ICD9: 296.55, ICD10: F31.75 4. Hyperlipidemia, unspecified hyperlipidemia type - ICD9: 272.4, ICD10: E78.5 Check lipid panel; notify of results - LIPID PANEL BASIC Follow up prn Medical Decision Making: Problems: Moderate: New problem with uncertain prognosis and 2+ stable chronic illnesses Data: Unique test(s) ordered: 2 Risk: Moderate: Drug management Medical Decision Making Level: 4 - Moderate Win Mejia MD documented in this encounter [facility] 02-04-2022 Miscellaneous Notes Bilateral calf swelling and pain. R>L. I conf her to Virtualist Dr. Mina who says she needs to be seen now and unfortunately nothing is open except the ER. Ms. Andujar was hesitant but eventually agreed she will go to the ER Reason for Disposition [1] Thigh, calf, or ankle swelling AND [2] bilateral AND [3] 1 side is more swollen Answer Assessment - Initial Assessment Questions 1. ONSET: 3 months 2. LOCATION: Bilateral calves 3. SEVERITY: Calves are swollen R>L. Denies pitting 4. REDNESS: Denies 5. PAIN: 7/10 sharp, shooting and throbbing. R>L She limps on her right leg 6. FEVER: Denies 7. CAUSE: Unknown 8. MEDICAL HISTORY: Denies a history of heart failure, kidney disease, liver failure, or cancer. Has COPD, smoker, BMI 36.73 9. RECURRENT SYMPTOM: On going issue for 3 months 10. OTHER SYMPTOMS: Denies chest pain. Has SOB but says that is her COPD 11. : Denies. On Depo-Provera Protocols used: LEG SWELLING AND [id number] documented in this encounter [facility] 02-04-2022 History of Present illness Narrative Patient identified by name and date of . Angelica Andujar is here for a Depo Provera injection. Patient brought medication. Date last injected: 11/11/21 Depo-Provera, 150 mg, administered IM right upper quadrant gluteus, Lot # [id number], expiration date 12/04/2023. Depo-Provera was given without incident. Date of last menses: No LMP recorded (lmp unknown). Patient has had an injection. Irregular bleeding - No Menses ceased - Yes STD prevention discussed: Yes Patient instructed to return to clinic in 12 weeks +/- 5 days. [email or web address] Provider Kym Wen DO was present in office at time of injection. Linda Padilla RN documented in this encounter [facility] 02-02-2022 Instructions Anastasia Herrera APRN.CNP - 02/02/2022 4:36 PM EDT 1. Start the medrol dose pack tomorrow. Hold the naproxen while on the medrol. 2. If you are not working tonight, would use the flexeril to help with the neck pain. 3. You can use moist heat/ice to the neck. 4. Push fluids. 5. You can use topicals (voltaren, shabnam nguyen, icy hot, etc) to the neck. 6. Avoid smoking. documented in this encounter [facility] 02-02-2022 History of Present illness Narrative This is a 41 year old female who presents today with: Patient presents with: Headache: started this afternoon; took naproxen and sat in a cool dark room HISTORY OF PRESENT ILLNESS: Angelica Andujar is a 41 year old female. Patient presents with: Headache: started this afternoon; took naproxen and sat in a cool dark room Pt presents today with complaint of headache. Refers last headache was earlier in January. She went to the ER with this headache. Refers they gave her toradol and zofran. Refers this headache started 12:00-12:30 today. Refers that she ate at 1:00 and then took naproxen. Refers that she has arthritis in her neck. Thinks the neck pain is stress related. Denies any head injuries. Refers that she just started a new job last week. Reports hx of migraines. No n/v. + sensitivity to light/sounds. Reports pain at the base of the neck and difficulty turning head. She was seen at urgent care on 01/28. Ordered flexeril and medrol dose pack for leg pain. Has not started either. Continues to have pain int he right leg. Has not scheduled w/ PT or pain management. PAST MEDICAL HISTORY: PAST MEDICAL HISTORY Diagnosis Date 11/2009 Anxiety Arthritis Asthma COPD (chronic obstructive pulmonary disease) (HCC) Depression Obesity (BMI 30.0-34.9) CHARLES (obstructive sleep apnea) Recurrent UTI Seasonal allergies STD (sexually transmitted disease) Tobacco use disorder 05/18/2021 PAST SURGICAL HISTORY Procedure Laterality Date COLONOSCOPY W/BIOPSY SINGLE/MULTIPLE 03/02/11 ESOPHAGOGASTRODUODENOSCOPY TRANSORAL DIAGNOSTIC 11/14/2012 EGD ESOPHAGOGASTRODUODENOSCOPY TRANSORAL DIAGNOSTIC 06/02/2020 EGD MED INC ALL EX DRUG 11/2009 PAST SURGICAL HISTORY OF WISDOM TEETH ALLERGIES Benzalkonium Chloride; Clindamycin; Doxycycline; Flagyl [Metronidazole]; Hand Sales Assistant Institutional Sales [Ethyl Alcohol (Skin Cleanser)]; Iodine; Latex, Natural Rubber; [place]; Meloxicam; Morphine; Penicillin; Prednisone; Singulair [Montelukast]; and Zofran [Ondansetron Hcl (Pf)] MEDICATIONS Current Outpatient Medications Medication Sig cyclobenzaprine (FLEXERIL) 10 mg tablet Take 1 tablet by mouth three times daily as needed for muscle spasm. methylPREDNISolone (MEDROL, FRANCISCO,) 4 mg Dose-Pack Follow dosing instructions, take with food. triamcinolone acetonide (KENALOG) 0.1 % cream Apply 1 application to affected area three times daily for 10 days. Apply sparingly to area for rash/itching. fluticasone (FLONASE) 50 mcg/actuation nasal spray Use 2 Sprays in each nostril once daily. Rinse mouth after use. loratadine (CLARITIN) 10 mg tablet Take 1 tablet by mouth once daily. pantoprazole DR (PROTONIX) 40 mg tablet TAKE 1 TABLET BY MOUTH DAILY medroxyPROGESTERone (DEPO-PROVERA) 150 mg/mL injection use as directed intramuscularly EVERY 12 WEEKS naproxen (NAPROSYN) 500 mg tablet Take 1 tablet by mouth twice daily with meals. albuterol HFA (PROVENTIL HFA, VENTOLIN HFA) 90 mcg/actuation inhaler Inhale 2 Puffs as instructed every 6 hours as needed for wheezing/shortness of breath. beclomethasone (QVAR REDIHALER) 80 mcg/actuation inhaler Inhale 2 Puffs as instructed twice daily. benzonatate (TESSALON PERLES) 100 mg capsule Take 1 capsule by mouth three times daily as needed for cough. Ipratropium [place] (ATROVENT) 21 mcg (0.03 %) nasal spray Use 2 Sprays in the nose every 12 hours. THEREMS MULTIVITAMIN 400 mcg TAKE 1 TABLET BY MOUTH DAILY [facility] 10 billion cell -200 mg capsule TAKE 1 CAPSULE BY MOUTH DAILY promethazine (PHENERGAN) 25 mg tablet take 1 tablet by mouth three times a day if needed for nausea and vomiting propranolol (INDERAL) 10 mg tablet TAKE 1 TABLET BY MOUTH THREE TIMES A DAY IF TREMORS PERSIST, IF NOT, MAY TRY TO WEAN DOWN DAILY DOSE Cholecalciferol, Vitamin D3, 50 mcg (2,000 unit) cap TAKE 1 CAPSULE BY MOUTH DAILY albuterol (PROVENTIL) 2.5 mg /3 mL (0.083 %) nebulizer solution Use 3 mL via nebulizer every 4 hours as needed. acetaminophen (TYLENOL EXTRA STRENGTH) 500 mg tablet Take 1 tablet by mouth every 6 hours as needed for Pain. Foot Care Products (GEL BUNION CUSHION) pads 1 Device once daily. Apply pad to area daily as needed multivitamin tablet Take 1 tablet by mouth once daily. lactobacillus acidophilus 100 mg (1 billion cell) cap(s) Take 1 capsule by mouth once daily. ascorbic acid (VITAMIN C ORAL) Take by mouth. lamoTRIgine orally disintegrating (LAMICTAL ODT) 25 mg disintegrating tablet Take 25 mg by mouth once daily. cariprazine (VRAYLAR) 3 mg cap Take by mouth. benztropine (COGENTIN) 0.5 mg tablet Take 0.5 mg by mouth twice daily. Current Facility-Administered Medications Medication Dose Route Frequency medroxyPROGESTERone 150 mg injection (DEPO-PROVERA) 150 mg INTRAMUSCULAR every 12 weeks FAMILY HISTORY Problem Relation Age of Onset Alcohol/Drug Mother Arthritis Mother Asthma Mother Cancer Mother CANCER Hypertension Mother Stroke Mother Cancer Father LUNG CANCER Emphysema Father Asthma Brother Breast Cancer Maternal Aunt Hypertension Brother Social History Tobacco Use Smoking status: Current Every Day Smoker Packs/day: 1.00 Types: Cigarettes Last attempt to quit: 03/09/2021 Years since quittin.9 Smokeless tobacco: Never Used Vaping Use Vaping Use: Never used Substance Use Topics Alcohol use: Not Currently Comment: Quit 4 months ago. Drug use: No EXAM: BP 150/92 Pulse 104 Resp 18 LMP (LMP Unknown) SpO2 97% PHYSICAL EXAM: General Appearance: Well appearing, alert, in no acute distress, well-hydrated, well nourished.. Skin: Skin color, texture, turgor normal, no suspicious rashes or lesions. Head: Normocephalic, no masses, lesions, tenderness or abnormalities. Eyes: Anicteric sclera. Pupils are equally round and reactive to light. Extraocular movements are intact. . Ears: External ears normal, canals clear, Positive findings: cerumen bilaterally, amount Moderate. Oropharynx: Lips, mucosa, and tongue normal, teeth and gums normal, oropharynx normal. Neck: Supple, no adenopathy; thyroid symmetric, normal size, no bruits. Lungs: Lungs clear to auscultation. No wheezing, rhonchi, rales.. Heart: RRR without murmur, gallop, or rubs. No ectopy. Extremities: No deformities, edema, skin discoloration, clubbing or cyanosis. Good capillary refill. . Neurologic: Gait normal. Reflexes normal and symmetric. Sensation grossly intact., Negative findings: speech normal, mental status intact, muscle tone normal, muscle strength normal, rapid alternating movements normal, finger to nose normal, reflexes normal and symmetric. ASSESSMENT/PLAN: 1. Headache, unspecified headache type - ICD9: 784.0, ICD10: R51.9 (primary diagnosis) Suspect related to neck pain. Encouraged to start the medrol dose pack. Since she is not working tonight, encouraged to take the flexeril. Can use moist heat/ice to the neck. Massage to the area. Gentle stretching. Topicals (voltaren, icy hot, shabnam nguyen, etc). 2. Cervicalgia - ICD9: 723.1, ICD10: M54.2 As above. - DICLOFENAC 1 % TOPICAL GEL -- pt aware this is now over the counter and insurance may not cover. Discussed treatment plan and patient voices understanding. Patient's questions answered appropriately. Medications and potential side effects were discussed and patient voices understanding. Return to the office as scheduled or as needed for worsening/no improvement. Anastasia Herrera APRN.JOSE ROBERTO The patient indicates understanding of these issues and agrees with the plan. documented in this encounter [facility] 02-02-2022 Miscellaneous Notes Patient call in for Headache since 1230, took pain medication with no relief. Nurse Triage assessment completed with protocol recommending for disposition of see PCP in 4 hours. Care advice reviewed with patient, patient stated understanding. Patient advised to contact office or seek evaluation in urgent care or ER if symptoms persist or gets worse. Reason for Disposition [1] SEVERE headache (e.g., excruciating) AND [2] not improved after 2 hours of pain medicine Answer Assessment - Initial Assessment Questions 1. LOCATION: Back of Neck, Back of head 2. ONSET: 1230 Pm today 3. PATTERN: Constant 4. SEVERITY: Patient rates pain 5 out of 10. 5. RECURRENT SYMPTOM: Yes, went to hospital for migraine with nausea; Gave shot of toradol and 2 Zofran 4 mg. Would not do any scans do not wanting to expose to radiation. 6. CAUSE: Unsure 7. MIGRAINE: Yes, Similar, but no nausea 8. HEAD INJURY: Denies 9. OTHER SYMPTOMS: Slightly stiff neck, but has arthritis in back of neck. Protocols used: [id number] documented in this encounter [facility] 01-28-2022 Instructions Shara Morel APRN.CNP - 01/28/2022 9:16 AM EDT R.I.C.E. The general care of your injury includes the following: Resting, Icing, Compressing and Elevating the injured area. Remember this as RICE. REST: Limit the use of the injured body part. ICE: By applying ice to the affected area, swelling and pain can be reduced. Place some ice cubes in a re-sealable (Ziploc) bag and add some water. Put a thin washcloth between the bag and your skin. Apply the ice bag to the area for at least 20 minutes. Do this at least 4 times per day. Using the ice for longer times and more frequently is OK. NEVER APPLY ICE DIRECTLY TO THE SKIN. COMPRESS: Compression means to apply pressure around the injured area such as with a splint, cast or an [place] bandage. Compression decreases swelling and improves comfort. Compression should be tight enough to relieve swelling but not so tight as to decrease circulation. Increasing pain, numbness, tingling, or change in skin color, are all signs of decreased circulation. ELEVATE: Elevate the injured part. For example, elevate your foot by placing it on a chair while sitting, or propping it up on pillows when lying down. documented in this encounter [facility] 01-28-2022 History of Present illness Narrative This note was created using [employer]. Subjective Angelica Andujar is a 41 year old female. 41 year old female with PMH asthma, COPD, CHARLES presents for complaints right leg pain. Acute onset a couple months ago. States that starts right hip and radiates down ankle. Sharp shooting. Constant Denies trauma or injury. +intermittent numbness and tingling Denies skin rash or lesions. Denies fever or chills. States she had a recent US that was negative. Seen chiropractor Naproxen isn't working. Denies inability to ambulate, saddle anesthesia, history of IV drug usage, or diabetes States that she just started [place] [employer] yesterday. Requesting work note. States she is currently trying to get disability. The history is provided by the patient. No translator interpreter was used. Musculoskeletal Problem This is a recurrent problem. The current episode started more than 1 month ago. The problem occurs constantly. The problem has been waxing and waning. Pertinent negatives include no abdominal pain, anorexia, arthralgias, change in bowel habit, chest pain, chills, congestion, coughing, diaphoresis, fatigue, fever, headaches, joint swelling, myalgias, nausea, neck pain, numbness, rash, sore throat, swollen glands, urinary symptoms, vertigo, visual change, vomiting or weakness. The symptoms are aggravated by walking, twisting and standing. Treatments tried: Naproxen. The treatment provided no relief. PAST MEDICAL HISTORY Diagnosis Date 11/2009 Anxiety Arthritis Asthma COPD (chronic obstructive pulmonary disease) (HCC) Depression Obesity (BMI 30.0-34.9) CHARLES (obstructive sleep apnea) Recurrent UTI Seasonal allergies STD (sexually transmitted disease) Tobacco use disorder 05/18/2021 PAST SURGICAL HISTORY Procedure Laterality Date COLONOSCOPY W/BIOPSY SINGLE/MULTIPLE 03/02/11 ESOPHAGOGASTRODUODENOSCOPY TRANSORAL DIAGNOSTIC 11/14/2012 EGD ESOPHAGOGASTRODUODENOSCOPY TRANSORAL DIAGNOSTIC 06/02/2020 EGD MED INC ALL EX DRUG 11/2009 PAST SURGICAL HISTORY OF WISDOM TEETH ALLERGIES Benzalkonium Chloride; Clindamycin; Doxycycline; Flagyl [Metronidazole]; Hand Sales Assistant Institutional Sales [Ethyl Alcohol (Skin Cleanser)]; Iodine; Latex, Natural Rubber; [place]; Meloxicam; Morphine; Penicillin; Prednisone; Singulair [Montelukast]; and Zofran [Ondansetron Hcl (Pf)] MEDICATIONS triamcinolone acetonide (KENALOG) 0.1 % cream Apply 1 application to affected area three times daily for 10 days. Apply sparingly to area for rash/itching. fluticasone (FLONASE) 50 mcg/actuation nasal spray Use 2 Sprays in each nostril once daily. Rinse mouth after use. loratadine (CLARITIN) 10 mg tablet Take 1 tablet by mouth once daily. pantoprazole DR (PROTONIX) 40 mg tablet TAKE 1 TABLET BY MOUTH DAILY medroxyPROGESTERone (DEPO-PROVERA) 150 mg/mL injection use as directed intramuscularly EVERY 12 WEEKS naproxen (NAPROSYN) 500 mg tablet Take 1 tablet by mouth twice daily with meals. albuterol HFA (PROVENTIL HFA, VENTOLIN HFA) 90 mcg/actuation inhaler Inhale 2 Puffs as instructed every 6 hours as needed for wheezing/shortness of breath. beclomethasone (QVAR REDIHALER) 80 mcg/actuation inhaler Inhale 2 Puffs as instructed twice daily. THEREMS MULTIVITAMIN 400 mcg TAKE 1 TABLET BY MOUTH DAILY [facility] 10 billion cell -200 mg capsule TAKE 1 CAPSULE BY MOUTH DAILY promethazine (PHENERGAN) 25 mg tablet take 1 tablet by mouth three times a day if needed for nausea and vomiting propranolol (INDERAL) 10 mg tablet TAKE 1 TABLET BY MOUTH THREE TIMES A DAY IF TREMORS PERSIST, IF NOT, MAY TRY TO WEAN DOWN DAILY DOSE Cholecalciferol, Vitamin D3, 50 mcg (2,000 unit) cap TAKE 1 CAPSULE BY MOUTH DAILY albuterol (PROVENTIL) 2.5 mg /3 mL (0.083 %) nebulizer solution Use 3 mL via nebulizer every 4 hours as needed. acetaminophen (TYLENOL EXTRA STRENGTH) 500 mg tablet Take 1 tablet by mouth every 6 hours as needed for Pain. Foot Care Products (GEL BUNION CUSHION) pads 1 Device once daily. Apply pad to area daily as needed multivitamin tablet Take 1 tablet by mouth once daily. lactobacillus acidophilus 100 mg (1 billion cell) cap(s) Take 1 capsule by mouth once daily. ascorbic acid (VITAMIN C ORAL) Take by mouth. benztropine (COGENTIN) 0.5 mg tablet Take 0.5 mg by mouth twice daily. cyclobenzaprine (FLEXERIL) 10 mg tablet Take 1 tablet by mouth three times daily as needed for muscle spasm. methylPREDNISolone (MEDROL, FRANCISCO,) 4 mg Dose-Pack Follow dosing instructions, take with food. benzonatate (TESSALON PERLES) 100 mg capsule Take 1 capsule by mouth three times daily as needed for cough. Ipratropium [place] (ATROVENT) 21 mcg (0.03 %) nasal spray Use 2 Sprays in the nose every 12 hours. lamoTRIgine orally disintegrating (LAMICTAL ODT) 25 mg disintegrating tablet Take 25 mg by mouth once daily. cariprazine (VRAYLAR) 3 mg cap Take by mouth. FAMILY HISTORY Problem Relation Age of Onset Alcohol/Drug Mother Arthritis Mother Asthma Mother Cancer Mother CANCER Hypertension Mother Stroke Mother Cancer Father LUNG CANCER Emphysema Father Asthma Brother Breast Cancer Maternal Aunt Hypertension Brother Social History Tobacco Use Smoking status: Current Every Day Smoker Packs/day: 1.00 Types: Cigarettes Last attempt to quit: 03/09/2021 Years since quittin.8 Smokeless tobacco: Never Used Vaping Use Vaping Use: Never used Substance Use Topics Alcohol use: Not Currently Comment: Quit 4 months ago. Drug use: No Review of Systems Constitutional: Negative for chills, diaphoresis, fatigue and fever. HENT: Negative for congestion and sore throat. Eyes: Negative for pain, discharge, redness and itching. Respiratory: Negative for apnea, cough, choking and chest tightness. Cardiovascular: Negative for chest pain, palpitations and leg swelling. Gastrointestinal: Negative for abdominal pain, anorexia, change in bowel habit, diarrhea, nausea and vomiting. Musculoskeletal: Negative for arthralgias, joint swelling, myalgias and neck pain. Right leg pain Skin: Negative for color change, pallor and rash. Allergic/Immunologic: Negative for environmental allergies, food allergies and immunocompromised state. Neurological: Negative for dizziness, vertigo, facial asymmetry, weakness, numbness and headaches. Hematological: Negative for adenopathy. Does not bruise/bleed easily. Psychiatric/Behavioral: Negative for agitation and behavioral problems. Objective BP 118/76 Pulse 111 Temp 36.3 C (97.4 F) Resp 16 Wt 110.4 kg (243 lb 6.4 oz) LMP (LMP Unknown) SpO2 99% BMI 37.56 kg/m Physical Exam Vitals and nursing note reviewed. Constitutional: General: She is not in acute distress. Appearance: Normal appearance. She is normal weight. She is not ill-appearing, toxic-appearing or diaphoretic. HENT: Head: Normocephalic and atraumatic. Right Ear: Ear canal and external ear normal. Left Ear: Ear canal and external ear normal. Nose: Nose normal. No congestion or rhinorrhea. Mouth/Throat: Mouth: Mucous membranes are moist. Pharynx: No oropharyngeal exudate or posterior oropharyngeal erythema. Eyes: General: Right eye: No discharge. Left eye: No discharge. Extraocular Movements: Extraocular movements intact. Conjunctiva/sclera: Conjunctivae normal. Pupils: Pupils are equal, round, and reactive to light. Cardiovascular: Rate and Rhythm: Normal rate and regular rhythm. Pulses: Normal pulses. Heart sounds: Normal heart sounds. No murmur heard. No friction rub. Pulmonary: Effort: Pulmonary effort is normal. No respiratory distress. Breath sounds: Normal breath sounds. No stridor. No wheezing, rhonchi or rales. Chest: Chest wall: No tenderness. Abdominal: General: Abdomen is flat. There is no distension. Palpations: Abdomen is soft. There is no mass. Tenderness: There is no abdominal tenderness. There is no right CVA tenderness, left CVA tenderness, guarding or rebound. Hernia: No hernia is present. Musculoskeletal: General: No swelling, tenderness, deformity or signs of injury. Normal range of motion. Cervical back: Normal range of motion and neck supple. No rigidity. Right lower leg: No edema. Left lower leg: No edema. Comments: Ambulatory No midline cervical, thoracic, or lumbar 5/5 strength Lymphadenopathy: Cervical: No cervical adenopathy. Skin: General: Skin is warm and dry. Coloration: Skin is not jaundiced or pale. Findings: No bruising, erythema, lesion or rash. Neurological: General: No focal deficit present. Mental Status: She is alert and oriented to person, place, and time. Cranial Nerves: No cranial nerve deficit. Sensory: No sensory deficit. Motor: No weakness. Coordination: Coordination normal. Gait: Gait normal. Psychiatric: Mood and Affect: Mood normal. Behavior: Behavior normal. Thought Content: Thought content normal. Judgment: Judgment normal. Assessment and Plan ASSESSMENT/PLAN: 1. Right leg pain - ICD9: 729.5, ICD10: M79.604 Ongoing Seen 12/21 for same Review of chart , DVT right lower leg negative Denies worsening, but denies improving No trauma or injury Likely musculoskeletal Will trial Medrol Dose Pack RX Flexeril - [facility])-for further management of ongoing pain Discussed red flags Shara Morel APRN.PARK [employer]INTAIN[employer] documented in this encounter [facility] 01-26-2022 Miscellaneous Notes Left detailed message on a secured voicemail. Bernadine Gama Please inform patient of negative COVID, Influenza and RSV. Continue treatment plan at time of discharge. documented in this encounter [facility] 01-25-2022 History of Present illness Narrative Images from the original note were not included. Subjective HPI HPI Angelica Andujar is a 41 year old female who presents today for CC of cough, congestion. This started 2 days ago. Has tried otc medication for relief. Risk factors no known sick exposures. Hx of copd, smoker. Denies cp/sob, n/v/d, ear pain, fever, st. Itchy rash for 1 week, PI in driveway. Denies fever. Tried triamcinolone cream with minimal relief. Chronic right lower extremity pain, negative dvt ultrasound. Denies numbness/tingling of right lower extremity. Denies injury. .Patient presents with: Rash: poison santa all over x1 week Head Congestion: cough x2 days PAST MEDICAL HISTORY Diagnosis Date 11/2009 Anxiety Arthritis Asthma COPD (chronic obstructive pulmonary disease) ([facility]) Depression Obesity (BMI 30.0-34.9) CHARLES (obstructive sleep apnea) Recurrent UTI Seasonal allergies STD (sexually transmitted disease) Tobacco use disorder 05/18/2021 PAST SURGICAL HISTORY Procedure Laterality Date COLONOSCOPY W/BIOPSY SINGLE/MULTIPLE 03/02/11 ESOPHAGOGASTRODUODENOSCOPY TRANSORAL DIAGNOSTIC 11/14/2012 EGD ESOPHAGOGASTRODUODENOSCOPY TRANSORAL DIAGNOSTIC 06/02/2020 EGD MED INC ALL EX DRUG 11/2009 PAST SURGICAL HISTORY OF WISDOM TEETH ALLERGIES Benzalkonium Chloride; Clindamycin; Doxycycline; Flagyl [Metronidazole]; Hand Sales Assistant Institutional Sales [Ethyl Alcohol (Skin Cleanser)]; Iodine; Latex, Natural Rubber; [place]; Meloxicam; Morphine; Penicillin; Prednisone; Singulair [Montelukast]; and Zofran [Ondansetron Hcl (Pf)] MEDICATIONS triamcinolone acetonide (KENALOG) 0.1 % cream Apply 1 application to affected area three times daily for 10 days. Apply sparingly to area for rash/itching. fluticasone (FLONASE) 50 mcg/actuation nasal spray Use 2 Sprays in each nostril once daily. Rinse mouth after use. loratadine (CLARITIN) 10 mg tablet Take 1 tablet by mouth once daily. triamcinolone acetonide (KENALOG) 0.1 % cream Apply 1 application to affected area twice daily for 7 days. Apply sparingly to area for rash/itching. pantoprazole DR (PROTONIX) 40 mg tablet TAKE 1 TABLET BY MOUTH DAILY medroxyPROGESTERone (DEPO-PROVERA) 150 mg/mL injection use as directed intramuscularly EVERY 12 WEEKS naproxen (NAPROSYN) 500 mg tablet Take 1 tablet by mouth twice daily with meals. albuterol HFA (PROVENTIL HFA, VENTOLIN HFA) 90 mcg/actuation inhaler Inhale 2 Puffs as instructed every 6 hours as needed for wheezing/shortness of breath. beclomethasone (QVAR REDIHALER) 80 mcg/actuation inhaler Inhale 2 Puffs as instructed twice daily. benzonatate (TESSALON PERLES) 100 mg capsule Take 1 capsule by mouth three times daily as needed for cough. Ipratropium [place] (ATROVENT) 21 mcg (0.03 %) nasal spray Use 2 Sprays in the nose every 12 hours. THEREMS MULTIVITAMIN 400 mcg TAKE 1 TABLET BY MOUTH DAILY [facility] 10 billion cell -200 mg capsule TAKE 1 CAPSULE BY MOUTH DAILY promethazine (PHENERGAN) 25 mg tablet take 1 tablet by mouth three times a day if needed for nausea and vomiting propranolol (INDERAL) 10 mg tablet TAKE 1 TABLET BY MOUTH THREE TIMES A DAY IF TREMORS PERSIST, IF NOT, MAY TRY TO WEAN DOWN DAILY DOSE Cholecalciferol, Vitamin D3, 50 mcg (2,000 unit) cap TAKE 1 CAPSULE BY MOUTH DAILY albuterol (PROVENTIL) 2.5 mg /3 mL (0.083 %) nebulizer solution Use 3 mL via nebulizer every 4 hours as needed. acetaminophen (TYLENOL EXTRA STRENGTH) 500 mg tablet Take 1 tablet by mouth every 6 hours as needed for Pain. Foot Care Products (GEL BUNION CUSHION) pads 1 Device once daily. Apply pad to area daily as needed multivitamin tablet Take 1 tablet by mouth once daily. lactobacillus acidophilus 100 mg (1 billion cell) cap(s) Take 1 capsule by mouth once daily. ascorbic acid (VITAMIN C ORAL) Take by mouth. lamoTRIgine orally disintegrating (LAMICTAL ODT) 25 mg disintegrating tablet Take 25 mg by mouth once daily. cariprazine (VRAYLAR) 3 mg cap Take by mouth. benztropine (COGENTIN) 0.5 mg tablet Take 0.5 mg by mouth twice daily. FAMILY HISTORY Problem Relation Age of Onset Alcohol/Drug Mother Arthritis Mother Asthma Mother Cancer Mother CANCER Hypertension Mother Stroke Mother Cancer Father LUNG CANCER Emphysema Father Asthma Brother Breast Cancer Maternal Aunt Hypertension Brother Social History Tobacco Use Smoking status: Current Every Day Smoker Packs/day: 1.00 Types: Cigarettes Last attempt to quit: 03/09/2021 Years since quittin.8 Smokeless tobacco: Never Used Vaping Use Vaping Use: Never used Substance Use Topics Alcohol use: Not Currently Comment: Quit 4 months ago. Drug use: No ROS Objective Blood pressure 122/82, pulse 109, temperature 36.6 C (97.9 F), resp. rate 20, weight 108.4 kg (239 lb), SpO2 97 %. Physical Exam Constitutional: General: She is not in acute distress. Appearance: She is not toxic-appearing or diaphoretic. HENT: Head: Normocephalic and atraumatic. Nose: Nose normal. Mouth/Throat: Lips: [place]. Mouth: Mucous membranes are moist. Cardiovascular: Rate and Rhythm: Normal rate and regular rhythm. Heart sounds: Normal heart sounds, S1 normal and S2 normal. Pulmonary: Effort: Pulmonary effort is normal. Breath sounds: Normal breath sounds. Lymphadenopathy: Cervical: No cervical adenopathy. Right cervical: No superficial cervical adenopathy. Left cervical: No superficial cervical adenopathy. Skin: Neurological: Mental Status: She is alert and oriented to person, place, and time. Gait: Gait is intact. ASSESSMENT/PLAN: 1. URI, acute - ICD9: 465.9, ICD10: J06.9 (primary diagnosis) - Discussed viral etiology and rationale for treatment. - Symptomatic treatment with prn analgesia - Supportive care with fluids and rest - Follow up in 3-5 days if symptoms persist or sooner if worsening of symptoms Discussed quarantine, social distancing otc medications discussed Push fluids -If you experience chest pain/shortness of breath go to ER - COVID WITH FLUA+B, ROUTINE - FLUTICASONE PROPIONATE 50 MCG/ACTUATION NASAL SPRAY,SUSPENSION 2. Rhus dermatitis - ICD9: 692.6, ICD10: L25.5 - Topical steriod tx with Rx for steriod cream/ointment- see orders - discussed skin care of rash - follow up if symptoms persist or worsen. - TRIAMCINOLONE ACETONIDE 0.1 % TOPICAL CREAM 3. Chronic pain of right lower extremity - ICD9: 729.5, 338.29, ICD10: M79.604, G89.29 Will refer to pcp. Abhijeet Rodrigues APRN.PARK MAINTAINER documented in this encounter [facility] 01-25-2022 Instructions Abhijeet Rodrigues APRN.JOSE ROBERTO - 01/25/2022 11:26 AM EDT ASSESSMENT: Contact Dermatitis - Poison [place] PLAN: Plan per orders in EpicCare. Keep fingernails well trimmed and clean. Wet cold compresses of water or diluted liquid aluminum acetate (Burow's solution) may relieve any inflammation. Cool showers or lukewarm baths with cornstarch (1/2 cup) or colloidal oatmeal (Aveeno) added to ease the itching. Wash clothes, shoes, tools, equipment, and bathe family pets that may have had contact with the plant's oils. Promptly wash exposed skin with water and soap if contact occurs in the future. Wear long-sleeved shirt and long pants if you are going to be in an area where these plants grow. Recognize and avoid areas where these plants grow. Follow up as needed.How to Manage Common Symptoms Associated with COVID for Adults Fever- Fever is a temperature over 100.4 F and can occur when the body is fighting an infection. To help treat a fever: Drink plenty of fluids and stay well hydrated. Eat small amounts of easy to digest food. Rest. Your body needs rest to recover, but getting up and moving around the house frequently is a good idea. You should try to continue doing your normal daily activities (bathing, toileting, grooming, cooking), though you will probably feel tired, and need to rest often. Avoid any heavy activity or exercise, as this will increase your body temperature. Dress in light clothing and stay covered in a light sheet. Keep the room temperature cool. Take a slightly warm (not cold or cool) bath, or apply damp washcloths to the forehead and wrists. Cough- Cough is a common symptom associated with COVID and can be bothersome. To help treat a cough: Stay well hydrated. Try warm water or tea with lemon and/or honey to help soothe the cough. Use a humidifier to add moisture to the air. Try a product with menthol, like a cough drop or a rub for your chest such as Vicks, which can help reduce cough. Try cough drops. Avoid smoking and other strong odors or perfumes. Try breathing exercises to keep your lungs open and clear. Take a big deep breath through your nose and hold for 5 seconds before slowly releasing. Repeat frequently, while you are awake. Congestion- Runny nose or nasal congestion can occur with COVID. Treatment can help relieve symptoms: Try OTC nasal saline spray, or nasal saline rinse to relieve mucus congestion. Nasal strips can help keep nasal passages open, to increase airflow. Elevating your head with an extra pillow in bed can help reduce congestion. Using a humidifier can increase moisture in the air, and make breathing easier. Sore Throat- Another common symptom with COVID, can be managed at home by: Stay well hydrated. Gargle with salt water mix teaspoon salt with 1 cup of warm water and gargle. This helps to loosen mucus in the back of the throat and may reduce discomfort. Try ice chips, popsicles or lozenges to soothe the throat. Nausea/Vomiting/Diarrhea- These are common symptoms, and staying hydrated is most important. If you are nauseous or vomiting, start with small sips of water every 10-15 minutes and increase as tolerated. You can try sucking an ice cube too. If tolerating, you can try pedialyte or Gatorade, or flat sprite or tu-volodymyr. Start slowly and increase as you are able to. Instead of meals, try smaller, more frequent snacks. Try eating bland foods like crackers, toast, rice, and applesauce. Avoid spicy, greasy or fried foods and dairy containing foods. Even if you aren't feeling hungry due to lack of smell or taste, it is important to try to take in some food when you are able. After drinking and eating, rest in an upright position for up to two hours as needed to help decrease nauseous feelings. Try closing your eyes, avoid moving and watching TV. Avoid strong odors that can make you feel more nauseated. When to seek emergency medical attention Look for emergency warning signs for COVID-19. If having any of these symptoms, seek emergency medical care immediately: Trouble breathing Persistent pain or pressure in the chest New confusion Inability to wake or stay awake Bluish lips or face *This list is not all possible symptoms. Please call your medical provider for any other symptoms that are severe or concerning to you. documented in this encounter [facility] 01-22-2022 Miscellaneous Notes The following approved medication requests have been transmitted electronically. Pending Prescriptions Disp Refills LORATADINE 10 MG TABLET 28 tablet 11 Sig: Take 1 tablet by mouth once daily. KAE: No Misbah Michel APRN.CNP Patient has been identified by name and date of : Yes Pending Prescriptions Disp Refills LORATADINE 10 MG TABLET 28 tablet 11 Sig: Take 1 tablet by mouth once daily. KAE: No RX INSTRUCTIONS: Pharmacy initiated this request. No need to notify patient. Ivet Carlos documented in this encounter [facility] 01-18-2022 Instructions Main Hamilton APRN.CNP - 01/18/2022 9:03 AM EDT NONSPECIFIC RASH: Our exam shows you have a rash which has no clear cause. Rashes can result from infections, allergies, or irritation of the skin by chemicals or other environmental factors. Rashes can also result from scratching or rubbing the skin too much to relieve itching. Further medical examination may be needed to identify the specific cause and proper treatment of your skin rash. You should treat your rash as recommended by your doctor. If you have itching, you should avoid scratching as much as possible, as this further damages the skin. Ask your doctor or pharmacist if you have any questions about what topical medicines may help relieve your symptoms. Call your doctor right away if your rash is not better in 2-3 days, if it worsens, or if there are signs of infection (increased pain, redness, drainage or pus). Do not use steroid cream on face or genitals or area of thinning/skin sensitive skin. documented in this encounter [facility] 01-18-2022 History of Present illness Narrative Images from the original note were not included. Subjective HPI Nontoxic-appearing female presents urgent care chief complaint rash. Duration of symptoms this morning. Associated symptoms pruritic erythematous rash. Patient states there is some burning sensation if she itches it. Denies any OTC medication use. States yesterday she was outside and may have came in contact with poison santa. States history of rash similar to this. Denies any pain. Denies any known sick contacts. No recent medication changes or antibiotic use. Denies any fever body aches chills cough chest pain shortness of breath nausea vomiting abdominal pain change in bowel or bladder habits. Past medical history prescription medication use allergies reviewed. .Patient presents with: Rash: itching and burning x 6am this am PAST MEDICAL HISTORY Diagnosis Date 11/2009 Anxiety Arthritis Asthma COPD (chronic obstructive pulmonary disease) (HCC) Depression Obesity (BMI 30.0-34.9) CHARLES (obstructive sleep apnea) Recurrent UTI Seasonal allergies STD (sexually transmitted disease) Tobacco use disorder 05/18/2021 PAST SURGICAL HISTORY Procedure Laterality Date COLONOSCOPY W/BIOPSY SINGLE/MULTIPLE 03/02/11 ESOPHAGOGASTRODUODENOSCOPY TRANSORAL DIAGNOSTIC 11/14/2012 EGD ESOPHAGOGASTRODUODENOSCOPY TRANSORAL DIAGNOSTIC 06/02/2020 EGD [employer] ALL EX DRUG 11/2009 PAST SURGICAL HISTORY OF WISDOM TEETH ALLERGIES Benzalkonium Chloride; Clindamycin; Doxycycline; Flagyl [Metronidazole]; Hand Sales Assistant Institutional Sales [Ethyl Alcohol (Skin Cleanser)]; Iodine; Latex, Natural Rubber; [place]; Meloxicam; Morphine; Penicillin; Prednisone; Singulair [Montelukast]; and Zofran [Ondansetron Hcl (Pf)] MEDICATIONS pantoprazole DR (PROTONIX) 40 mg tablet TAKE 1 TABLET BY MOUTH DAILY medroxyPROGESTERone (DEPO-PROVERA) 150 mg/mL injection use as directed intramuscularly EVERY 12 WEEKS naproxen (NAPROSYN) 500 mg tablet Take 1 tablet by mouth twice daily with meals. albuterol HFA (PROVENTIL HFA, VENTOLIN HFA) 90 mcg/actuation inhaler Inhale 2 Puffs as instructed every 6 hours as needed for wheezing/shortness of breath. beclomethasone (QVAR REDIHALER) 80 mcg/actuation inhaler Inhale 2 Puffs as instructed twice daily. THEREMS MULTIVITAMIN 400 mcg TAKE 1 TABLET BY MOUTH DAILY [facility] 10 billion cell -200 mg capsule TAKE 1 CAPSULE BY MOUTH DAILY promethazine (PHENERGAN) 25 mg tablet take 1 tablet by mouth three times a day if needed for nausea and vomiting propranolol (INDERAL) 10 mg tablet TAKE 1 TABLET BY MOUTH THREE TIMES A DAY IF TREMORS PERSIST, IF NOT, MAY TRY TO WEAN DOWN DAILY DOSE Cholecalciferol, Vitamin D3, 50 mcg (2,000 unit) cap TAKE 1 CAPSULE BY MOUTH DAILY loratadine (CLARITIN) 10 mg tablet Take 1 tablet by mouth once daily. albuterol (PROVENTIL) 2.5 mg /3 mL (0.083 %) nebulizer solution Use 3 mL via nebulizer every 4 hours as needed. acetaminophen (TYLENOL EXTRA STRENGTH) 500 mg tablet Take 1 tablet by mouth every 6 hours as needed for Pain. Foot Care Products (GEL BUNION CUSHION) pads 1 Device once daily. Apply pad to area daily as needed multivitamin tablet Take 1 tablet by mouth once daily. lactobacillus acidophilus 100 mg (1 billion cell) cap(s) Take 1 capsule by mouth once daily. ascorbic acid (VITAMIN C ORAL) Take by mouth. lamoTRIgine orally disintegrating (LAMICTAL ODT) 25 mg disintegrating tablet Take 25 mg by mouth once daily. cariprazine (VRAYLAR) 3 mg cap Take by mouth. benztropine (COGENTIN) 0.5 mg tablet Take 0.5 mg by mouth twice daily. benzonatate (TESSALON PERLES) 100 mg capsule Take 1 capsule by mouth three times daily as needed for cough. Ipratropium [place] (ATROVENT) 21 mcg (0.03 %) nasal spray Use 2 Sprays in the nose every 12 hours. FAMILY HISTORY Problem Relation Age of Onset Alcohol/Drug Mother Arthritis Mother Asthma Mother Cancer Mother CANCER Hypertension Mother Stroke Mother Cancer Father LUNG CANCER Emphysema Father Asthma Brother Breast Cancer Maternal Aunt Hypertension Brother Social History Tobacco Use Smoking status: Current Every Day Smoker Packs/day: 1.00 Types: Cigarettes Last attempt to quit: 03/09/2021 Years since quittin.8 Smokeless tobacco: Never Used Vaping Use Vaping Use: Never used Substance Use Topics Alcohol use: Not Currently Comment: Quit 4 months ago. Drug use: No BP 126/70 Pulse 104 Temp 36.8 C (98.3 F) Resp 16 Wt 108.9 kg (240 lb) LMP (LMP Unknown) SpO2 96% BMI 37.03 kg/m Hr 91 Review of Systems Constitutional: Negative for chills, fever and malaise/fatigue. HENT: Negative for congestion, ear discharge, ear pain, sinus pain and sore throat. Eyes: Negative for blurred vision, pain, discharge and redness. Respiratory: Negative for cough, hemoptysis, sputum production, shortness of breath, wheezing and stridor. Cardiovascular: Negative for chest pain. Gastrointestinal: Negative for abdominal pain, diarrhea, nausea and vomiting. Musculoskeletal: Negative for myalgias. Skin: Positive for itching and rash. Neurological: Negative for dizziness and headaches. Objective Physical Exam Constitutional: General: She is not in acute distress. Appearance: She is not diaphoretic. HENT: Head: Normocephalic. Mouth/Throat: Mouth: Mucous membranes are moist. Pharynx: Oropharynx is clear. No oropharyngeal exudate or posterior oropharyngeal erythema. Eyes: Conjunctiva/sclera: Conjunctivae normal. Pupils: Pupils are equal, round, and reactive to light. Cardiovascular: Rate and Rhythm: Normal rate and regular rhythm. Heart sounds: Normal heart sounds. Pulmonary: Effort: Pulmonary effort is normal. No tachypnea, accessory muscle usage or respiratory distress. Breath sounds: Normal breath sounds. No stridor. Abdominal: Palpations: Abdomen is soft. Tenderness: There is no abdominal tenderness. Musculoskeletal: Cervical back: Normal range of motion and neck supple. No rigidity or tenderness. Lymphadenopathy: Cervical: No cervical adenopathy. Skin: General: Skin is warm and dry. Comments: Macular papular rash with fluid-filled vesicles noted on bilateral lower legs and hip. There are areas of coalescing lesions. No remote redness. No breaks in skin. No evidence of bacterial infection. No mucosal membrane involvement or desquamation of skin noted. Neurological: Mental Status: She is alert and oriented to person, place, and time. ASSESSMENT/PLAN: 1. Contact dermatitis, unspecified contact dermatitis type, unspecified trigger - ICD9: 692.9, ICD10: L25.9 Patient diagnosed with contact dermatitis. Placed on Kenalog cream. Will not use on areas of thin skin. Red flags for reevaluation discussed. Patient was educated on supportive therapies. Patient will follow up with primary care provider as needed. Patient was instructed to immediately proceed to emergency room for any new, worsening, or symptoms lasting longer than anticipated. The patient's clinical presentation is otherwise unremarkable at this time. Based on exam and clinical finding, the patient is stable for discharge. Plan of care was discussed with patient. Patient verbalizes understanding and agrees to plan of care. This note was generated using ISH software. It may contain errors in wording, punctuation, or spelling. Main Hamilton APRN.CNP documented in this encounter [facility] 12-25-2021 Miscellaneous Notes The following approved medication requests have been transmitted electronically. Pending Prescriptions Disp Refills PANTOPRAZOLE 40 MG TABLET,DELAYED RELEASE 30 tablet 11 Sig: TAKE 1 TABLET BY MOUTH DAILY KAE: Yes Misbah Michel APRN.CNP Patient has been identified by name and date of : Yes Pharmacy phones for refill(s): Pending Prescriptions Disp Refills PANTOPRAZOLE 40 MG TABLET,DELAYED RELEASE 30 tablet Sig: TAKE 1 TABLET BY MOUTH DAILY KAE: Yes Date of last office visit in primary care: OV on 12/16/2021 No appointment scheduled Last 2 Encounter Wt Readings: Date: Wt: 12/21/2021 110.7 kg (244 lb) 12/16/2021 108.4 kg (239 lb) Please advise. Thank you. FLOWER Carrasco documented in this encounter [facility] 12-23-2021 Miscellaneous Notes Patient notified.Rosemary Gillette MA Phone call placed left brief message to contact a nurse. Fidelia Murrieta LPN Left message for patient to return call. Bernadine Gama Please let patient know that her US was negative for DVT. Suspect musculoskeletal etiology. Continue naproxen, ice, stretching. F/u in 7-10 days if not improving, sooner if worsening Arpita Garnica PA-C 12/21/2021 documented in this encounter [facility] 12-21-2021 Miscellaneous Notes Reason for call: Patient calling with request for health information: patient requesting health information about ultra sound today. Patient denies any new or worsening symptoms of which a provider is not aware: Yes. Reviewed below message from 12/21/2021 with patient. Note Please let patient know that her US was negative for DVT. Suspect musculoskeletal etiology. Continue naproxen, ice, stretching. F/u in 7-10 days if not improving, sooner if worsening Arpita Garnica PA-C 12/21/2021 Outcome: Patient has no further questions. GO TO THE EMERGENCY ROOM OR CALL 911 IF: * You develop any new symptoms * Your condition worsens * You are concerned or anxious about your condition for any other reason. If you have any questions, you can call Nurse compensation and benefits analyst back. documented in this encounter [facility] 12-21-2021 Miscellaneous Notes Patient notified of results, verbalizes understanding of instructions. Yulissa Nicole LPN I have placed the order for a ZIO monitor, the patient may make an appointment with either our office or the nursing office to have this placed. Please let me know if she has any questions. Thank you. Prabha Springer APRN.PARK MAINTAINER Pt came in to discuss results and requested to have the ZIO monitor order placed. Please call pt at [phone] with any questions/concerns. Thank you, Ally Garcia TC to patient with no answer. Left message to call the office and ask to speak with a nurse regarding her lab results. FLOWER Carrasco Can you call the patient and let her know that I reviewed her lab results. Labs were relatively normal, I would recommend that she stay well-hydrated and try to increase water. I do not see any cause at this time for her dizziness. I would recommend that if this continues to happen we may discuss doing an at-home Holter monitor to see if she is having any abnormal heartbeats during these episodes. EKG was normal in the office. If the patient is interested in doing a ZIO monitor please instruct her to check with insurance to make sure it is covered. Please let me know if she has any other questions. Thank you. Prabha Springer APRN.JOSE ROBERTO documented in this encounter [facility] 12-21-2021 History of Present illness Narrative 12/21/2021 Patient presents with: Pain: right leg and left arm pain x 2 weeks, denies injury SUBJECTIVE: This is a 41 year old that is here today for Complaint(s) of right leg pain x 2 weeks, no injury. Pain located in the posterior calf, non-radiating. Denies leg swelling, redness, warmth, history of DVT/PE, SOB, chest pain, recent long travel. + everyday smoker. Currently on Deop-Provera Also having some left arm pain x 2 weeks-same time as leg. No swelling associated. Pain is constant, tabatha pain per patient. Located in the upper arm. Not alleviated with naproxen, nothing specific aggravates symptoms. Denies numbness/tingling, redness, warmth, injury/trauma. PAST MEDICAL HISTORY Diagnosis Date 11/2009 Anxiety Arthritis Asthma COPD (chronic obstructive pulmonary disease) ([facility]) Depression Obesity (BMI 30.0-34.9) CHARLES (obstructive sleep apnea) Recurrent UTI Seasonal allergies STD (sexually transmitted disease) Tobacco use disorder 05/18/2021 ALLERGIES Benzalkonium Chloride; Clindamycin; Doxycycline; Flagyl [Metronidazole]; Hand Sales Assistant Institutional Sales [Ethyl Alcohol (Skin Cleanser)]; Iodine; Latex, Natural Rubber; [place]; Meloxicam; Morphine; Penicillin; Prednisone; Singulair [Montelukast]; and Zofran [Ondansetron Hcl (Pf)] MEDICATIONS Current Outpatient Medications Medication Sig medroxyPROGESTERone (DEPO-PROVERA) 150 mg/mL injection use as directed intramuscularly EVERY 12 WEEKS naproxen (NAPROSYN) 500 mg tablet Take 1 tablet by mouth twice daily with meals. albuterol HFA (PROVENTIL HFA, VENTOLIN HFA) 90 mcg/actuation inhaler Inhale 2 Puffs as instructed every 6 hours as needed for wheezing/shortness of breath. beclomethasone (QVAR REDIHALER) 80 mcg/actuation inhaler Inhale 2 Puffs as instructed twice daily. THEREMS MULTIVITAMIN 400 mcg TAKE 1 TABLET BY MOUTH DAILY [facility] 10 billion cell -200 mg capsule TAKE 1 CAPSULE BY MOUTH DAILY promethazine (PHENERGAN) 25 mg tablet take 1 tablet by mouth three times a day if needed for nausea and vomiting pantoprazole DR (PROTONIX) 40 mg tablet Take 1 tablet by mouth once daily. propranolol (INDERAL) 10 mg tablet TAKE 1 TABLET BY MOUTH THREE TIMES A DAY IF TREMORS PERSIST, IF NOT, MAY TRY TO WEAN DOWN DAILY DOSE Cholecalciferol, Vitamin D3, 50 mcg (2,000 unit) cap TAKE 1 CAPSULE BY MOUTH DAILY loratadine (CLARITIN) 10 mg tablet Take 1 tablet by mouth once daily. albuterol (PROVENTIL) 2.5 mg /3 mL (0.083 %) nebulizer solution Use 3 mL via nebulizer every 4 hours as needed. acetaminophen (TYLENOL EXTRA STRENGTH) 500 mg tablet Take 1 tablet by mouth every 6 hours as needed for Pain. Foot Care Products (GEL BUNION CUSHION) pads 1 Device once daily. Apply pad to area daily as needed multivitamin tablet Take 1 tablet by mouth once daily. lactobacillus acidophilus 100 mg (1 billion cell) cap(s) Take 1 capsule by mouth once daily. ascorbic acid (VITAMIN C ORAL) Take by mouth. lamoTRIgine orally disintegrating (LAMICTAL ODT) 25 mg disintegrating tablet Take 25 mg by mouth once daily. cariprazine (VRAYLAR) 3 mg cap Take by mouth. benztropine (COGENTIN) 0.5 mg tablet Take 0.5 mg by mouth twice daily. benzonatate (TESSALON PERLES) 100 mg capsule Take 1 capsule by mouth three times daily as needed for cough. (Patient not taking: Reported on 11/08/2021 ) Ipratropium [place] (ATROVENT) 21 mcg (0.03 %) nasal spray Use 2 Sprays in the nose every 12 hours. (Patient not taking: Reported on 11/11/2021 ) Current Facility-Administered Medications Medication Dose Route Frequency medroxyPROGESTERone 150 mg injection (DEPO-PROVERA) 150 mg INTRAMUSCULAR every 12 weeks SOCIAL HISTORY Social History Tobacco Use Smoking status: Current Every Day Smoker Packs/day: 1.00 Types: Cigarettes Last attempt to quit: 03/09/2021 Years since quittin.7 Smokeless tobacco: Never Used Vaping Use Vaping Use: Never used Substance Use Topics Alcohol use: Not Currently Comment: Quit 4 months ago. Drug use: No REVIEW OF SYSTEMS See HPI OBJECTIVE: BP 122/72 Pulse 78 Temp 36.6 C (97.8 F) Resp 16 Wt 110.7 kg (244 lb) LMP (LMP Unknown) SpO2 98% BMI 37.65 kg/m APPEARANCE Well appearing, alert, in no acute distress, well-hydrated, well nourished. EXTREMITIES No deformities, No skin discoloration, No edema and Normal pulses bilaterally. + right mid calf, posterior TTP. No erythema, warmth. No palpable cord. Neurovascular status intact. Left shoulder with normal ROM, pain with external rotation. Negative drop arm. Rotator cuff strength testing intact. + TTP over lateral left shoulder, proximal UE, and posterior left shoulder. No edema UE/LE. Neurovascular status intact. Normal ROM elbow and wrist. ASSESSMENT/PLAN: 1. Right leg pain - ICD9: 729.5, ICD10: M79.604 (primary diagnosis) R/o DVT, suspect musculoskeletal etiology continue naproxen, ice, rest F/u if not improving, sooner if worsening - US LEG VEIN DVT [facility] 2. Right arm pain - ICD9: 729.5, ICD10: M79.601 Suspect possible tendonitis, trial naproxen, ice F/u if not improving, consider XR at that time. Reviewed red flags and when to seek care sooner. The patient indicates understanding of these issues and agrees with the plan. Arpita Garnica PA-C 12/21/2021 documented in this encounter [facility] 12-16-2021 Instructions Prabha Springer APRN.PARK MAINTAINER - 12/16/2021 10:42 AM EDT 1.) Get labs completed. 2.) Stay well hydrated. 3.) ECG was normal. 4.) Follow up pending test results or sooner as needed. documented in this encounter [facility] 12-16-2021 Nurse Note Pt denies actually passing out but feels like she could. Denies any sx of dizziness, rapid heart rate, SOB. She states it only seems to happen when sitting. Denies feeling it when she goes from sitting to standing. She states this has been an issue x 1 month off and on. Does not occur daily. The episodes last a few minutes. No vision changes, no black vision or spots. Concerns about thrush. Has not seen any white film on the tongue but state her throat hurts. No recent antibiotic treatments, does use inhalers. documented in this encounter [facility] 12-16-2021 History of Present illness Narrative This is a 41 year old female who presents today with: Patient presents with: Syncope HISTORY OF PRESENT ILLNESS: Angelica Andujar is a 41 year old female. Patient presents with: Syncope Here in the office due to feeling like she will pass out (light-headed). Symptom occurs randomly while sitting about 2-3 times per week for the past month. No dizziness, chest pain, palpitations, or edema. No LOC, N/V/D. Drinking about 4-5 cups per day. Eat 3 meals per day. Lightheadedness lasts a couple minutes and then resolves. No changes with medications. PAST MEDICAL HISTORY: PAST MEDICAL HISTORY Diagnosis Date 11/2009 Anxiety Arthritis Asthma COPD (chronic obstructive pulmonary disease) (HCC) Depression Obesity (BMI 30.0-34.9) CHARLES (obstructive sleep apnea) Recurrent UTI Seasonal allergies STD (sexually transmitted disease) Tobacco use disorder 05/18/2021 PAST SURGICAL HISTORY Procedure Laterality Date COLONOSCOPY W/BIOPSY SINGLE/MULTIPLE 03/02/11 ESOPHAGOGASTRODUODENOSCOPY TRANSORAL DIAGNOSTIC 11/14/2012 EGD ESOPHAGOGASTRODUODENOSCOPY TRANSORAL DIAGNOSTIC 06/02/2020 [facility] ALL EX DRUG 11/2009 PAST SURGICAL HISTORY OF WISDOM TEETH ALLERGIES Benzalkonium Chloride; Clindamycin; Doxycycline; Flagyl [Metronidazole]; Hand Sales Assistant Institutional Sales [Ethyl Alcohol (Skin Cleanser)]; Iodine; Latex, Natural Rubber; [place]; Meloxicam; Morphine; Penicillin; Prednisone; Singulair [Montelukast]; and Zofran [Ondansetron Hcl (Pf)] MEDICATIONS Current Outpatient Medications Medication Sig medroxyPROGESTERone (DEPO-PROVERA) 150 mg/mL injection use as directed intramuscularly EVERY 12 WEEKS naproxen (NAPROSYN) 500 mg tablet Take 1 tablet by mouth twice daily with meals. albuterol HFA (PROVENTIL HFA, VENTOLIN HFA) 90 mcg/actuation inhaler Inhale 2 Puffs as instructed every 6 hours as needed for wheezing/shortness of breath. beclomethasone (QVAR REDIHALER) 80 mcg/actuation inhaler Inhale 2 Puffs as instructed twice daily. benzonatate (TESSALON PERLES) 100 mg capsule Take 1 capsule by mouth three times daily as needed for cough. (Patient not taking: Reported on 11/08/2021 ) Ipratropium [place] (ATROVENT) 21 mcg (0.03 %) nasal spray Use 2 Sprays in the nose every 12 hours. (Patient not taking: Reported on 11/11/2021 ) THEREMS MULTIVITAMIN 400 mcg TAKE 1 TABLET BY MOUTH DAILY [facility] 10 billion cell -200 mg capsule TAKE 1 CAPSULE BY MOUTH DAILY promethazine (PHENERGAN) 25 mg tablet take 1 tablet by mouth three times a day if needed for nausea and vomiting (Patient not taking: Reported on 10/31/2021 ) pantoprazole DR (PROTONIX) 40 mg tablet Take 1 tablet by mouth once daily. propranolol (INDERAL) 10 mg tablet TAKE 1 TABLET BY MOUTH THREE TIMES A DAY IF TREMORS PERSIST, IF NOT, MAY TRY TO WEAN DOWN DAILY DOSE Cholecalciferol, Vitamin D3, 50 mcg (2,000 unit) cap TAKE 1 CAPSULE BY MOUTH DAILY loratadine (CLARITIN) 10 mg tablet Take 1 tablet by mouth once daily. albuterol (PROVENTIL) 2.5 mg /3 mL (0.083 %) nebulizer solution Use 3 mL via nebulizer every 4 hours as needed. acetaminophen (TYLENOL EXTRA STRENGTH) 500 mg tablet Take 1 tablet by mouth every 6 hours as needed for Pain. (Patient not taking: Reported on 10/02/2021 ) Foot Care Products (GEL BUNION CUSHION) pads 1 Device once daily. Apply pad to area daily as needed (Patient not taking: Reported on 11/08/2021 ) multivitamin tablet Take 1 tablet by mouth once daily. lactobacillus acidophilus 100 mg (1 billion cell) cap(s) Take 1 capsule by mouth once daily. (Patient not taking: Reported on 10/02/2021 ) ascorbic acid (VITAMIN C ORAL) Take by mouth. lamoTRIgine orally disintegrating (LAMICTAL ODT) 25 mg disintegrating tablet Take 25 mg by mouth once daily. cariprazine (VRAYLAR) 3 mg cap Take by mouth. benztropine (COGENTIN) 0.5 mg tablet Take 0.5 mg by mouth twice daily. Current Facility-Administered Medications Medication Dose Route Frequency medroxyPROGESTERone 150 mg injection (DEPO-PROVERA) 150 mg INTRAMUSCULAR every 12 weeks FAMILY HISTORY Problem Relation Age of Onset Alcohol/Drug Mother Arthritis Mother Asthma Mother Cancer Mother CANCER Hypertension Mother Stroke Mother Cancer Father LUNG CANCER Emphysema Father Asthma Brother Breast Cancer Maternal Aunt Hypertension Brother Social History Tobacco Use Smoking status: Current Every Day Smoker Packs/day: 1.00 Types: Cigarettes Last attempt to quit: 03/09/2021 Years since quittin.7 Smokeless tobacco: Never Used Vaping Use Vaping Use: Never used Substance Use Topics Alcohol use: Not Currently Comment: Quit 4 months ago. Drug use: No REVIEW OF SYSTEMS GENERAL: No weight loss, malaise or fevers/chills HEENT: Negative for frequent or significant headaches, No changes in hearing or vision. NECK: Negative for lumps, goiter, pain and significant neck swelling RESPIRATORY: Negative for cough, hemoptysis, wheezing, dyspnea or shortness of breath CARDIOVASCULAR: Negative for chest pain, leg swelling, orthopnea, or palpitations GI: No nausea, vomiting, or diarrhea/constipation. No hematochezia/melena. No heartburn or reflux symptoms. : No history of dysuria, frequency or incontinence MUSCULOSKELETAL: Negative for joint pain or swelling. SKIN: Negative for lesions, rash, and itching ENDOCRINE: Negative for cold or heat intolerance, polyuria, polydipsia and goiter NEURO: + Light-headed MOOD: Negative for depression, anxiety, or suicidal ideation. EXAM: BP 130/78 Pulse 120 Resp 18 Wt 108.4 kg (239 lb) LMP (LMP Unknown) BMI 36.88 kg/m PHYSICAL EXAM: General Appearance: Well appearing, alert, in no acute distress, well-hydrated, well nourished. Skin: Skin color, texture, turgor normal, no suspicious rashes or lesions. Head: Normocephalic, no masses, lesions, tenderness or abnormalities. Eyes: Anicteric sclera. Extraocular movements are intact. Lungs: Lungs clear to auscultation. No wheezing, rhonchi, rales. Heart: RRR without murmur, gallop, or rubs. No ectopy. Abdomen: Normal abdominal exam, Abdomen soft, non-tender. Bowel sounds normal. No masses, organomegaly, Negative CVA tenderness. Extremities: No deformities, edema, skin discoloration, clubbing or cyanosis. Good capillary refill. Peripheral Pulses: Normal, Capillary refill <2secs, strong peripheral pulses, Pulses palpable. ECG: Normal sinus rhythm, no ST elevation/depression, or ectopy. ASSESSMENT/PLAN: 1. Lightheaded - ICD9: 780.4, ICD10: R42 - Get the following labs completed to further evaluate acute causes of her symptoms. - ECG showed normal sinus rhythm. - Instructed to stay well hydrated - CBC + DIFF - COMP METABOLIC PANEL - TSH BLD - MAGNESIUM BLD - ECG COMPLETE Follow up pending test results or sooner as needed. Discussed treatment plan and patient voices understanding. Patient's questions answered appropriately. Medications and potential side effects were discussed and patient voices understanding. Prabha Springer APRN.JOSE ROBERTO This note was partially generated using [employer] voice recognition system. Note was reviewed for accuracy. There may be minor misspellings or grammar miscues with [employer] voice recognition. documented in this encounter [facility] 12-01-2021 History of Present illness Narrative Angelica is a 41 year old who presents for an annual gynecologic exam without complaints. Reports did not take med for BV. Reports she is not sure if she has an allergy to clindamycin and Flagyl. Patient states she has no odor or discharge but may be some mild pelvic discomfort. Menses: none- depo . Contraception: Depo Provera HPV vaccine: No Last Pap: 08/11/2018 normal HPV: 08/08/2018 negative History of abnormal pap: No Last mammogram: 2020normal Sexually active: Yes History of STDS: None Patient concerns for STD exposure: No. Pain with intercourse: No Postcoital bleeding: No Exercise:not routine Diet: not balanced OB History T0 L0 SAB0 IAB1 Ectopic0 Multiple0 Live Births0 Larriman Helper History LMP: LMP Unknown, Injection Age at Menarche: Age at First : Age at Menopause: Larriman Helper History Comments: Sexual Activity: Yes; Male Contraception: None PAST MEDICAL HISTORY Diagnosis Date 11/2009 Anxiety Arthritis Asthma COPD (chronic obstructive pulmonary disease) (HCC) Depression Obesity (BMI 30.0-34.9) CHARLES (obstructive sleep apnea) Recurrent UTI Seasonal allergies STD (sexually transmitted disease) Tobacco use disorder 05/18/2021 PAST SURGICAL HISTORY Procedure Laterality Date COLONOSCOPY W/BIOPSY SINGLE/MULTIPLE 03/02/11 ESOPHAGOGASTRODUODENOSCOPY TRANSORAL DIAGNOSTIC 11/14/2012 EGD ESOPHAGOGASTRODUODENOSCOPY TRANSORAL DIAGNOSTIC 06/02/2020 EGD MED INC ALL EX DRUG 11/2009 PAST SURGICAL HISTORY OF WISDOM TEETH FAMILY HISTORY Problem Relation Age of Onset Alcohol/Drug Mother Arthritis Mother Asthma Mother Cancer Mother CANCER Hypertension Mother Stroke Mother Cancer Father LUNG CANCER Emphysema Father Asthma Brother Breast Cancer Maternal Aunt Hypertension Brother SOCIAL HISTORY Social History Tobacco Use Smoking status: Current Every Day Smoker Packs/day: 1.00 Types: Cigarettes Last attempt to quit: 03/09/2021 Years since quittin.7 Smokeless tobacco: Never Used Vaping Use Vaping Use: Never used Substance Use Topics Alcohol use: Not Currently Comment: Quit 4 months ago. Drug use: No REVIEW OF SYSTEMS Abdomen: No abdominal pain, nausea, vomiting, diarrhea, or constipation. No bloating, early satiety, indigestion, or increased flatulence. Bladder: No dysuria, gross hematuria, urinary frequency, urinary urgency, or incontinence. Breast: No breast lumps, nipple d/c, overlying skin changes, redness or skin retraction. Allergies and current medication updated:Yes EXAM: BP 122/82 Ht 5' 7.5 (1.72m) Wt 238 lb (108.0kg) BMI 36.70 kg/(m^2). GENERAL: pleasant, female in no apparent distress HEENT: Normocephalic, atraumatic, mucus membranes moist and no lesions NECK: Supple, full range of motion, no adenopathy and thyroid normal DERMATOLOGY: Normal, without lesions, non-icteric and non-hirsute BREAST: soft, non-tender, symmetric, no dominant mass, normal nipple-areolar complex, no lymphadenopathy and no nipple discharge ABDOMEN: soft, non-tender and no masses PELVIC: external genitalia normal, normal Bartholin's glands, urethra, Kellogg's glands, no vulvar lesions, no cervical lesions, good vaginal support, physiologic discharge present, normal appearing perineal body and perianal region BIMANUAL: uterus normal size, shape and consistency, no adnexal masses and non-tender RECTOVAGINAL: deferred. NEURO: alert and oriented x3,exam grossly non-focal EXTREMITIES: normal ASSESSMENT/PLAN: 1) Health maintenance: Pap/HPV up to date. Mammogram ordered. Nutrition, exercise and routine health maintenance exams reviewed. Calcium/Vitamin D supplementation information provided. 2) Contraception: Depo Provera. Contraceptive options reviewed and information provided. 3) STD screening: Accepted STD check for Gonorrhea and Chlamydia. 4) Follow up one year or sooner as needed 5) OTC AZO dual relief reviewed - vaginal hygiene reviewed Kaleigh Velázquez MD vaginChaperone offered: Patient declines. documented in this encounter [facility] documented as of this encounter (statuses as of 12/01/2021) [facility] History of Past illness Narrative* Problem Noted Date Resolved Date Backache, unspecified 01/03/2013 09/15/2016 Acne Vulgaris: Grade III Inflammatory and Comedo nal 12/07/2012 09/15/2016 Other seborrheic dermatitis 12/07/201209/05 Seborrhea 12/07/2012 09/15/2016 Eczematous dermatitis 12/07/2012 09/15/2016 Xerosis cutis 12/07/2012 09/15/2016 Tendonitis 03/09/2012 09/15/2016 Closed fracture of metatarsal bone(s) 03/02/2012 09/15/2016 Internal hemorrhoids without mention of complica tion 03/02/2011 10/20/2011 Diarrhea 03/02/2011 10/20/2011 Abdominal pain, generalized 03/02/201110/06 Other hammer toe (acquired) 02/08/201110/06 Frequency of urination 06/30/2010 2 Pelvic pain in female 06/30/2010 10/20/2011 Microscopic hematuria 06/30/2010 09/15/2016 documented as of this encounter (statuses as of 12/16/2021) [facility] History of Past illness Narrative* Problem Noted Date Resolved Date Backache, unspecified 01/03/2013 09/15/2016 Acne Vulgaris: Grade III Inflammatory and Comedo nal 12/07/2012 09/15/2016 Other seborrheic dermatitis 12/07/201209/05 Seborrhea 12/07/2012 09/15/2016 Eczematous dermatitis 12/07/2012 09/15/2016 Xerosis cutis 12/07/2012 09/15/2016 Tendonitis 03/09/2012 09/15/2016 Closed fracture of metatarsal bone(s) 03/02/2012 09/15/2016 Internal hemorrhoids without mention of complica tion 03/02/2011 10/20/2011 Diarrhea 03/02/2011 10/20/2011 Abdominal pain, generalized 03/02/201110/06 Other hammer toe (acquired) 02/08/201110/06 Frequency of urination 06/30/2010 2 Pelvic pain in female 06/30/2010 10/20/2011 Microscopic hematuria 06/30/2010 09/15/2016 documented as of this encounter (statuses as of 12/21/2021) [facility] History of Past illness Narrative* Problem Noted Date Resolved Date Backache, unspecified 01/03/2013 09/15/2016 Acne Vulgaris: Grade III Inflammatory and Comedo nal 12/07/2012 09/15/2016 Other seborrheic dermatitis 12/07/201209/05 Seborrhea 12/07/2012 09/15/2016 Eczematous dermatitis 12/07/2012 09/15/2016 Xerosis cutis 12/07/2012 09/15/2016 Tendonitis 03/09/2012 09/15/2016 Closed fracture of metatarsal bone(s) 03/02/2012 09/15/2016 Internal hemorrhoids without mention of complica tion 03/02/2011 10/20/2011 Diarrhea 03/02/2011 10/20/2011 Abdominal pain, generalized 03/02/201110/06 Other hammer toe (acquired) 02/08/201110/06 Frequency of urination 06/30/2010 2 Pelvic pain in female 06/30/2010 10/20/2011 Microscopic hematuria 06/30/2010 09/15/2016 documented as of this encounter (statuses as of 12/21/2021) [facility] History of Past illness Narrative* Problem Noted Date Resolved Date Backache, unspecified 01/03/2013 09/15/2016 Acne Vulgaris: Grade III Inflammatory and Comedo nal 12/07/2012 09/15/2016 Other seborrheic dermatitis 12/07/201209/05 Seborrhea 12/07/2012 09/15/2016 Eczematous dermatitis 12/07/2012 09/15/2016 Xerosis cutis 12/07/2012 09/15/2016 Tendonitis 03/09/2012 09/15/2016 Closed fracture of metatarsal bone(s) 03/02/2012 09/15/2016 Internal hemorrhoids without mention of complica tion 03/02/2011 10/20/2011 Diarrhea 03/02/2011 10/20/2011 Abdominal pain, generalized 03/02/201110/06 Other hammer toe (acquired) 02/08/201110/06 Frequency of urination 06/30/2010 2 Pelvic pain in female 06/30/2010 10/20/2011 Microscopic hematuria 06/30/2010 09/15/2016 documented as of this encounter (statuses as of 12/23/2021) [facility] History of Past illness Narrative* Problem Noted Date Resolved Date Backache, unspecified 01/03/2013 09/15/2016 Acne Vulgaris: Grade III Inflammatory and Comedo nal 12/07/2012 09/15/2016 Other seborrheic dermatitis 12/07/201209/05 Seborrhea 12/07/2012 09/15/2016 Eczematous dermatitis 12/07/2012 09/15/2016 Xerosis cutis 12/07/2012 09/15/2016 Tendonitis 03/09/2012 09/15/2016 Closed fracture of metatarsal bone(s) 03/02/2012 09/15/2016 Internal hemorrhoids without mention of complica tion 03/02/2011 10/20/2011 Diarrhea 03/02/2011 10/20/2011 Abdominal pain, generalized 03/02/201110/06 Other hammer toe (acquired) 02/08/201110/06 Frequency of urination 06/30/2010 2 Pelvic pain in female 06/30/2010 10/20/2011 Microscopic hematuria 06/30/2010 09/15/2016 documented as of this encounter (statuses as of 12/23/2021) [facility] History of Past illness Narrative* Problem Noted Date Resolved Date Backache, unspecified 01/03/2013 09/15/2016 Acne Vulgaris: Grade III Inflammatory and Comedo nal 12/07/2012 09/15/2016 Other seborrheic dermatitis 12/07/201209/05 Seborrhea 12/07/2012 09/15/2016 Eczematous dermatitis 12/07/2012 09/15/2016 Xerosis cutis 12/07/2012 09/15/2016 Tendonitis 03/09/2012 09/15/2016 Closed fracture of metatarsal bone(s) 03/02/2012 09/15/2016 Internal hemorrhoids without mention of complica tion 03/02/2011 10/20/2011 Diarrhea 03/02/2011 10/20/2011 Abdominal pain, generalized 03/02/201110/06 Other hammer toe (acquired) 02/08/201110/06 Frequency of urination 06/30/2010 2 Pelvic pain in female 06/30/2010 10/20/2011 Microscopic hematuria 06/30/2010 09/15/2016 documented as of this encounter (statuses as of 12/25/2021) [facility] History of Past illness Narrative* Problem Noted Date Resolved Date Backache, unspecified 01/03/2013 09/15/2016 Acne Vulgaris: Grade III Inflammatory and Comedo nal 12/07/2012 09/15/2016 Other seborrheic dermatitis 12/07/201209/05 Seborrhea 12/07/2012 09/15/2016 Eczematous dermatitis 12/07/2012 09/15/2016 Xerosis cutis 12/07/2012 09/15/2016 Tendonitis 03/09/2012 09/15/2016 Closed fracture of metatarsal bone(s) 03/02/2012 09/15/2016 Internal hemorrhoids without mention of complica tion 03/02/2011 10/20/2011 Diarrhea 03/02/2011 10/20/2011 Abdominal pain, generalized 03/02/201110/06 Other hammer toe (acquired) 02/08/201110/06 Frequency of urination 06/30/2010 2 Pelvic pain in female 06/30/2010 10/20/2011 Microscopic hematuria 06/30/2010 09/15/2016 documented as of this encounter (statuses as of 01/18/2022) [facility] History of Past illness Narrative* Problem Noted Date Resolved Date Backache, unspecified 01/03/2013 09/15/2016 Acne Vulgaris: Grade III Inflammatory and Comedo nal 12/07/2012 09/15/2016 Other seborrheic dermatitis 12/07/201209/05 Seborrhea 12/07/2012 09/15/2016 Eczematous dermatitis 12/07/2012 09/15/2016 Xerosis cutis 12/07/2012 09/15/2016 Tendonitis 03/09/2012 09/15/2016 Closed fracture of metatarsal bone(s) 03/02/2012 09/15/2016 Internal hemorrhoids without mention of complica tion 03/02/2011 10/20/2011 Diarrhea 03/02/2011 10/20/2011 Abdominal pain, generalized 03/02/201110/06 Other hammer toe (acquired) 02/08/201110/06 Frequency of urination 06/30/2010 2 Pelvic pain in female 06/30/2010 10/20/2011 Microscopic hematuria 06/30/2010 09/15/2016 documented as of this encounter (statuses as of 01/22/2022) [facility] History of Past illness Narrative* Problem Noted Date Resolved Date Backache, unspecified 01/03/2013 09/15/2016 Acne Vulgaris: Grade III Inflammatory and Comedo nal 12/07/2012 09/15/2016 Other seborrheic dermatitis 12/07/201209/05 Seborrhea 12/07/2012 09/15/2016 Eczematous dermatitis 12/07/2012 09/15/2016 Xerosis cutis 12/07/2012 09/15/2016 Tendonitis 03/09/2012 09/15/2016 Closed fracture of metatarsal bone(s) 03/02/2012 09/15/2016 Internal hemorrhoids without mention of complica tion 03/02/2011 10/20/2011 Diarrhea 03/02/2011 10/20/2011 Abdominal pain, generalized 03/02/201110/06 Other hammer toe (acquired) 02/08/201110/06 Frequency of urination 06/30/2010 2 Pelvic pain in female 06/30/2010 10/20/2011 Microscopic hematuria 06/30/2010 09/15/2016 documented as of this encounter (statuses as of 01/25/2022) [facility] History of Past illness Narrative* Problem Noted Date Resolved Date Backache, unspecified 01/03/2013 09/15/2016 Acne Vulgaris: Grade III Inflammatory and Comedo nal 12/07/2012 09/15/2016 Other seborrheic dermatitis 12/07/201209/05 Seborrhea 12/07/2012 09/15/2016 Eczematous dermatitis 12/07/2012 09/15/2016 Xerosis cutis 12/07/2012 09/15/2016 Tendonitis 03/09/2012 09/15/2016 Closed fracture of metatarsal bone(s) 03/02/2012 09/15/2016 Internal hemorrhoids without mention of complica tion 03/02/2011 10/20/2011 Diarrhea 03/02/2011 10/20/2011 Abdominal pain, generalized 03/02/201110/06 Other hammer toe (acquired) 02/08/201110/06 Frequency of urination 06/30/2010 2 Pelvic pain in female 06/30/2010 10/20/2011 Microscopic hematuria 06/30/2010 09/15/2016 documented as of this encounter (statuses as of 01/26/2022) [facility] History of Past illness Narrative* Problem Noted Date Resolved Date Backache, unspecified 01/03/2013 09/15/2016 Acne Vulgaris: Grade III Inflammatory and Comedo nal 12/07/2012 09/15/2016 Other seborrheic dermatitis 12/07/201209/05 Seborrhea 12/07/2012 09/15/2016 Eczematous dermatitis 12/07/2012 09/15/2016 Xerosis cutis 12/07/2012 09/15/2016 Tendonitis 03/09/2012 09/15/2016 Closed fracture of metatarsal bone(s) 03/02/2012 09/15/2016 Internal hemorrhoids without mention of complica tion 03/02/2011 10/20/2011 Diarrhea 03/02/2011 10/20/2011 Abdominal pain, generalized 03/02/201110/06 Other hammer toe (acquired) 02/08/201110/06 Frequency of urination 06/30/2010 2 Pelvic pain in female 06/30/2010 10/20/2011 Microscopic hematuria 06/30/2010 09/15/2016 documented as of this encounter (statuses as of 01/28/2022) [facility] History of Past illness Narrative* Problem Noted Date Resolved Date Backache, unspecified 01/03/2013 09/15/2016 Acne Vulgaris: Grade III Inflammatory and Comedo nal 12/07/2012 09/15/2016 Other seborrheic dermatitis 12/07/201209/05 Seborrhea 12/07/2012 09/15/2016 Eczematous dermatitis 12/07/2012 09/15/2016 Xerosis cutis 12/07/2012 09/15/2016 Tendonitis 03/09/2012 09/15/2016 Closed fracture of metatarsal bone(s) 03/02/2012 09/15/2016 Internal hemorrhoids without mention of complica tion 03/02/2011 10/20/2011 Diarrhea 03/02/2011 10/20/2011 Abdominal pain, generalized 03/02/201110/06 Other hammer toe (acquired) 02/08/201110/06 Frequency of urination 06/30/2010 2 Pelvic pain in female 06/30/2010 10/20/2011 Microscopic hematuria 06/30/2010 09/15/2016 documented as of this encounter (statuses as of 02/02/2022) [facility] History of Past illness Narrative* Problem Noted Date Resolved Date Backache, unspecified 01/03/2013 09/15/2016 Acne Vulgaris: Grade III Inflammatory and Comedo nal 12/07/2012 09/15/2016 Other seborrheic dermatitis 12/07/201209/05 Seborrhea 12/07/2012 09/15/2016 Eczematous dermatitis 12/07/2012 09/15/2016 Xerosis cutis 12/07/2012 09/15/2016 Tendonitis 03/09/2012 09/15/2016 Closed fracture of metatarsal bone(s) 03/02/2012 09/15/2016 Internal hemorrhoids without mention of complica tion 03/02/2011 10/20/2011 Diarrhea 03/02/2011 10/20/2011 Abdominal pain, generalized 03/02/201110/06 Other hammer toe (acquired) 02/08/201110/06 Frequency of urination 06/30/2010 2 Pelvic pain in female 06/30/2010 10/20/2011 Microscopic hematuria 06/30/2010 09/15/2016 documented as of this encounter (statuses as of 02/02/2022) [facility] History of Past illness Narrative* Problem Noted Date Resolved Date Backache, unspecified 01/03/2013 09/15/2016 Acne Vulgaris: Grade III Inflammatory and Comedo nal 12/07/2012 09/15/2016 Other seborrheic dermatitis 12/07/201209/05 Seborrhea 12/07/2012 09/15/2016 Eczematous dermatitis 12/07/2012 09/15/2016 Xerosis cutis 12/07/2012 09/15/2016 Tendonitis 03/09/2012 09/15/2016 Closed fracture of metatarsal bone(s) 03/02/2012 09/15/2016 Internal hemorrhoids without mention of complica tion 03/02/2011 10/20/2011 Diarrhea 03/02/2011 10/20/2011 Abdominal pain, generalized 03/02/201110/06 Other hammer toe (acquired) 02/08/201110/06 Frequency of urination 06/30/2010 2 Pelvic pain in female 06/30/2010 10/20/2011 Microscopic hematuria 06/30/2010 09/15/2016 documented as of this encounter (statuses as of 02/04/2022) [facility] History of Past illness Narrative* Problem Noted Date Resolved Date Backache, unspecified 01/03/2013 09/15/2016 Acne Vulgaris: Grade III Inflammatory and Comedo nal 12/07/2012 09/15/2016 Other seborrheic dermatitis 12/07/201209/05 Seborrhea 12/07/2012 09/15/2016 Eczematous dermatitis 12/07/2012 09/15/2016 Xerosis cutis 12/07/2012 09/15/2016 Tendonitis 03/09/2012 09/15/2016 Closed fracture of metatarsal bone(s) 03/02/2012 09/15/2016 Internal hemorrhoids without mention of complica tion 03/02/2011 10/20/2011 Diarrhea 03/02/2011 10/20/2011 Abdominal pain, generalized 03/02/201110/06 Other hammer toe (acquired) 02/08/201110/06 Frequency of urination 06/30/2010 2 Pelvic pain in female 06/30/2010 10/20/2011 Microscopic hematuria 06/30/2010 09/15/2016 documented as of this encounter (statuses as of 02/05/2022) [facility] History of Past illness Narrative* Problem Noted Date Resolved Date Backache, unspecified 01/03/2013 09/15/2016 Acne Vulgaris: Grade III Inflammatory and Comedo nal 12/07/2012 09/15/2016 Other seborrheic dermatitis 12/07/201209/05 Seborrhea 12/07/2012 09/15/2016 Eczematous dermatitis 12/07/2012 09/15/2016 Xerosis cutis 12/07/2012 09/15/2016 Tendonitis 03/09/2012 09/15/2016 Closed fracture of metatarsal bone(s) 03/02/2012 09/15/2016 Internal hemorrhoids without mention of complica tion 03/02/2011 10/20/2011 Diarrhea 03/02/2011 10/20/2011 Abdominal pain, generalized 03/02/201110/06 Other hammer toe (acquired) 02/08/201110/06 Frequency of urination 06/30/2010 2 Pelvic pain in female 06/30/2010 10/20/2011 Microscopic hematuria 06/30/2010 09/15/2016 documented as of this encounter (statuses as of 02/09/2022) [facility] History of Past illness Narrative* Problem Noted Date Resolved Date Backache, unspecified 01/03/2013 09/15/2016 Acne Vulgaris: Grade III Inflammatory and Comedo nal 12/07/2012 09/15/2016 Other seborrheic dermatitis 12/07/201209/05 Seborrhea 12/07/2012 09/15/2016 Eczematous dermatitis 12/07/2012 09/15/2016 Xerosis cutis 12/07/2012 09/15/2016 Tendonitis 03/09/2012 09/15/2016 Closed fracture of metatarsal bone(s) 03/02/2012 09/15/2016 Internal hemorrhoids without mention of complica tion 03/02/2011 10/20/2011 Diarrhea 03/02/2011 10/20/2011 Abdominal pain, generalized 03/02/201110/06 Other hammer toe (acquired) 02/08/201110/06 Frequency of urination 06/30/2010 2 Pelvic pain in female 06/30/2010 10/20/2011 Microscopic hematuria 06/30/2010 09/15/2016 documented as of this encounter (statuses as of 02/09/2022) [facility] History of Past illness Narrative* Problem Noted Date Resolved Date Backache, unspecified 01/03/2013 09/15/2016 Acne Vulgaris: Grade III Inflammatory and Comedo nal 12/07/2012 09/15/2016 Other seborrheic dermatitis 12/07/201209/05 Seborrhea 12/07/2012 09/15/2016 Eczematous dermatitis 12/07/2012 09/15/2016 Xerosis cutis 12/07/2012 09/15/2016 Tendonitis 03/09/2012 09/15/2016 Closed fracture of metatarsal bone(s) 03/02/2012 09/15/2016 Internal hemorrhoids without mention of complica tion 03/02/2011 10/20/2011 Diarrhea 03/02/2011 10/20/2011 Abdominal pain, generalized 03/02/201110/06 Other hammer toe (acquired) 02/08/201110/06 Frequency of urination 06/30/2010 2 Pelvic pain in female 06/30/2010 10/20/2011 Microscopic hematuria 06/30/2010 09/15/2016 documented as of this encounter (statuses as of 02/17/2022) [facility] History of Past illness Narrative* Problem Noted Date Resolved Date Backache, unspecified 01/03/2013 09/15/2016 Acne Vulgaris: Grade III Inflammatory and Comedo nal 12/07/2012 09/15/2016 Other seborrheic dermatitis 12/07/201209/05 Seborrhea 12/07/2012 09/15/2016 Eczematous dermatitis 12/07/2012 09/15/2016 Xerosis cutis 12/07/2012 09/15/2016 Tendonitis 03/09/2012 09/15/2016 Closed fracture of metatarsal bone(s) 03/02/2012 09/15/2016 Internal hemorrhoids without mention of complica tion 03/02/2011 10/20/2011 Diarrhea 03/02/2011 10/20/2011 Abdominal pain, generalized 03/02/201110/06 Other hammer toe (acquired) 02/08/201110/06 Frequency of urination 06/30/2010 2 Pelvic pain in female 06/30/2010 10/20/2011 Microscopic hematuria 06/30/2010 09/15/2016 documented as of this encounter (statuses as of 02/23/2022) [facility] History of Past illness Narrative* Problem Noted Date Resolved Date Backache, unspecified 01/03/2013 09/15/2016 Acne Vulgaris: Grade III Inflammatory and Comedo nal 12/07/2012 09/15/2016 Other seborrheic dermatitis 12/07/201209/05 Seborrhea 12/07/2012 09/15/2016 Eczematous dermatitis 12/07/2012 09/15/2016 Xerosis cutis 12/07/2012 09/15/2016 Tendonitis 03/09/2012 09/15/2016 Closed fracture of metatarsal bone(s) 03/02/2012 09/15/2016 Internal hemorrhoids without mention of complica tion 03/02/2011 10/20/2011 Diarrhea 03/02/2011 10/20/2011 Abdominal pain, generalized 03/02/201110/06 Other hammer toe (acquired) 02/08/201110/06 Frequency of urination 06/30/2010 2 Pelvic pain in female 06/30/2010 10/20/2011 Microscopic hematuria 06/30/2010 09/15/2016 documented as of this encounter (statuses as of 02/24/2022) [facility] History of Past illness Narrative* Problem Noted Date Resolved Date Backache, unspecified 01/03/2013 09/15/2016 Acne Vulgaris: Grade III Inflammatory and Comedo nal 12/07/2012 09/15/2016 Other seborrheic dermatitis 12/07/201209/05 Seborrhea 12/07/2012 09/15/2016 Eczematous dermatitis 12/07/2012 09/15/2016 Xerosis cutis 12/07/2012 09/15/2016 Tendonitis 03/09/2012 09/15/2016 Closed fracture of metatarsal bone(s) 03/02/2012 09/15/2016 Internal hemorrhoids without mention of complica tion 03/02/2011 10/20/2011 Diarrhea 03/02/2011 10/20/2011 Abdominal pain, generalized 03/02/201110/06 Other hammer toe (acquired) 02/08/201110/06 Frequency of urination 06/30/2010 2 Pelvic pain in female 06/30/2010 10/20/2011 Microscopic hematuria 06/30/2010 09/15/2016 documented as of this encounter (statuses as of 02/25/2022) [facility] History of Past illness Narrative* Problem Noted Date Resolved Date Backache, unspecified 01/03/2013 09/15/2016 Acne Vulgaris: Grade III Inflammatory and Comedo nal 12/07/2012 09/15/2016 Other seborrheic dermatitis 12/07/201209/05 Seborrhea 12/07/2012 09/15/2016 Eczematous dermatitis 12/07/2012 09/15/2016 Xerosis cutis 12/07/2012 09/15/2016 Tendonitis 03/09/2012 09/15/2016 Closed fracture of metatarsal bone(s) 03/02/2012 09/15/2016 Internal hemorrhoids without mention of complica tion 03/02/2011 10/20/2011 Diarrhea 03/02/2011 10/20/2011 Abdominal pain, generalized 03/02/201110/06 Other hammer toe (acquired) 02/08/201110/06 Frequency of urination 06/30/2010 2 Pelvic pain in female 06/30/2010 10/20/2011 Microscopic hematuria 06/30/2010 09/15/2016 documented as of this encounter (statuses as of 03/19/2022) [facility] History of Past illness Narrative* Problem Noted Date Resolved Date Backache, unspecified 01/03/2013 09/15/2016 Acne Vulgaris: Grade III Inflammatory and Comedo nal 12/07/2012 09/15/2016 Other seborrheic dermatitis 12/07/201209/05 Seborrhea 12/07/2012 09/15/2016 Eczematous dermatitis 12/07/2012 09/15/2016 Xerosis cutis 12/07/2012 09/15/2016 Tendonitis 03/09/2012 09/15/2016 Closed fracture of metatarsal bone(s) 03/02/2012 09/15/2016 Internal hemorrhoids without mention of complica tion 03/02/2011 10/20/2011 Diarrhea 03/02/2011 10/20/2011 Abdominal pain, generalized 03/02/201110/06 Other hammer toe (acquired) 02/08/201110/06 Frequency of urination 06/30/2010 2 Pelvic pain in female 06/30/2010 10/20/2011 Microscopic hematuria 06/30/2010 09/15/2016 documented as of this encounter (statuses as of 03/23/2022) [facility] History of Past illness Narrative* Problem Noted Date Resolved Date Backache, unspecified 01/03/2013 09/15/2016 Acne Vulgaris: Grade III Inflammatory and Comedo nal 12/07/2012 09/15/2016 Other seborrheic dermatitis 12/07/201209/05 Seborrhea 12/07/2012 09/15/2016 Eczematous dermatitis 12/07/2012 09/15/2016 Xerosis cutis 12/07/2012 09/15/2016 Tendonitis 03/09/2012 09/15/2016 Closed fracture of metatarsal bone(s) 03/02/2012 09/15/2016 Internal hemorrhoids without mention of complica tion 03/02/2011 10/20/2011 Diarrhea 03/02/2011 10/20/2011 Abdominal pain, generalized 03/02/201110/06 Other hammer toe (acquired) 02/08/201110/06 Frequency of urination 06/30/2010 2 Pelvic pain in female 06/30/2010 10/20/2011 Microscopic hematuria 06/30/2010 09/15/2016 documented as of this encounter (statuses as of 04/02/2022) [facility] History of Past illness Narrative* Problem Noted Date Resolved Date Backache, unspecified 01/03/2013 09/15/2016 Acne Vulgaris: Grade III Inflammatory and Comedo nal 12/07/2012 09/15/2016 Other seborrheic dermatitis 12/07/201209/05 Seborrhea 12/07/2012 09/15/2016 Eczematous dermatitis 12/07/2012 09/15/2016 Xerosis cutis 12/07/2012 09/15/2016 Tendonitis 03/09/2012 09/15/2016 Closed fracture of metatarsal bone(s) 03/02/2012 09/15/2016 Internal hemorrhoids without mention of complica tion 03/02/2011 10/20/2011 Diarrhea 03/02/2011 10/20/2011 Abdominal pain, generalized 03/02/201110/06 Other hammer toe (acquired) 02/08/201110/06 Frequency of urination 06/30/2010 2 Pelvic pain in female 06/30/2010 10/20/2011 Microscopic hematuria 06/30/2010 09/15/2016 documented as of this encounter (statuses as of 04/03/2022) [facility] History of Past illness Narrative* Problem Noted Date Resolved Date Backache, unspecified 01/03/2013 09/15/2016 Acne Vulgaris: Grade III Inflammatory and Comedo nal 12/07/2012 09/15/2016 Other seborrheic dermatitis 12/07/201209/05 Seborrhea 12/07/2012 09/15/2016 Eczematous dermatitis 12/07/2012 09/15/2016 Xerosis cutis 12/07/2012 09/15/2016 Tendonitis 03/09/2012 09/15/2016 Closed fracture of metatarsal bone(s) 03/02/2012 09/15/2016 Internal hemorrhoids without mention of complica tion 03/02/2011 10/20/2011 Diarrhea 03/02/2011 10/20/2011 Abdominal pain, generalized 03/02/201110/06 Other hammer toe (acquired) 02/08/201110/06 Frequency of urination 06/30/2010 2 Pelvic pain in female 06/30/2010 10/20/2011 Microscopic hematuria 06/30/2010 09/15/2016 documented as of this encounter (statuses as of 04/12/2022) [facility] History of Past illness Narrative* Problem Noted Date Resolved Date Backache, unspecified 01/03/2013 09/15/2016 Acne Vulgaris: Grade III Inflammatory and Comedo nal 12/07/2012 09/15/2016 Other seborrheic dermatitis 12/07/201209/05 Seborrhea 12/07/2012 09/15/2016 Eczematous dermatitis 12/07/2012 09/15/2016 Xerosis cutis 12/07/2012 09/15/2016 Tendonitis 03/09/2012 09/15/2016 Closed fracture of metatarsal bone(s) 03/02/2012 09/15/2016 Internal hemorrhoids without mention of complica tion 03/02/2011 10/20/2011 Diarrhea 03/02/2011 10/20/2011 Abdominal pain, generalized 03/02/201110/06 Other hammer toe (acquired) 02/08/201110/06 Frequency of urination 06/30/2010 2 Pelvic pain in female 06/30/2010 10/20/2011 Microscopic hematuria 06/30/2010 09/15/2016 documented as of this encounter (statuses as of 04/29/2022) [facility] History of Past illness Narrative* Problem Noted Date Resolved Date Backache, unspecified 01/03/2013 09/15/2016 Acne Vulgaris: Grade III Inflammatory and Comedo nal 12/07/2012 09/15/2016 Other seborrheic dermatitis 12/07/201209/05 Seborrhea 12/07/2012 09/15/2016 Eczematous dermatitis 12/07/2012 09/15/2016 Xerosis cutis 12/07/2012 09/15/2016 Tendonitis 03/09/2012 09/15/2016 Closed fracture of metatarsal bone(s) 03/02/2012 09/15/2016 Internal hemorrhoids without mention of complica tion 03/02/2011 10/20/2011 Diarrhea 03/02/2011 10/20/2011 Abdominal pain, generalized 03/02/201110/06 Other hammer toe (acquired) 02/08/201110/06 Frequency of urination 06/30/2010 2 Pelvic pain in female 06/30/2010 10/20/2011 Microscopic hematuria 06/30/2010 09/15/2016 documented as of this encounter (statuses as of 05/03/2022) [facility] History of Past illness Narrative* Problem Noted Date Resolved Date Backache, unspecified 01/03/2013 09/15/2016 Acne Vulgaris: Grade III Inflammatory and Comedo nal 12/07/2012 09/15/2016 Other seborrheic dermatitis 12/07/201209/05 Seborrhea 12/07/2012 09/15/2016 Eczematous dermatitis 12/07/2012 09/15/2016 Xerosis cutis 12/07/2012 09/15/2016 Tendonitis 03/09/2012 09/15/2016 Closed fracture of metatarsal bone(s) 03/02/2012 09/15/2016 Internal hemorrhoids without mention of complica tion 03/02/2011 10/20/2011 Diarrhea 03/02/2011 10/20/2011 Abdominal pain, generalized 03/02/201110/06 Other hammer toe (acquired) 02/08/201110/06 Frequency of urination 06/30/2010 2 Pelvic pain in female 06/30/2010 10/20/2011 Microscopic hematuria 06/30/2010 09/15/2016 documented as of this encounter (statuses as of 05/05/2022) [facility] History of Past illness Narrative* Problem Noted Date Resolved Date Backache, unspecified 01/03/2013 09/15/2016 Acne Vulgaris: Grade III Inflammatory and Comedo nal 12/07/2012 09/15/2016 Other seborrheic dermatitis 12/07/201209/05 Seborrhea 12/07/2012 09/15/2016 Eczematous dermatitis 12/07/2012 09/15/2016 Xerosis cutis 12/07/2012 09/15/2016 Tendonitis 03/09/2012 09/15/2016 Closed fracture of metatarsal bone(s) 03/02/2012 09/15/2016 Internal hemorrhoids without mention of complica tion 03/02/2011 10/20/2011 Diarrhea 03/02/2011 10/20/2011 Abdominal pain, generalized 03/02/201110/06 Other hammer toe (acquired) 02/08/201110/06 Frequency of urination 06/30/2010 2 Pelvic pain in female 06/30/2010 10/20/2011 Microscopic hematuria 06/30/2010 09/15/2016 documented as of this encounter (statuses as of 05/13/2022) [facility] History of Past illness Narrative* Problem Noted Date Resolved Date Backache, unspecified 01/03/2013 09/15/2016 Acne Vulgaris: Grade III Inflammatory and Comedo nal 12/07/2012 09/15/2016 Other seborrheic dermatitis 12/07/201209/05 Seborrhea 12/07/2012 09/15/2016 Eczematous dermatitis 12/07/2012 09/15/2016 Xerosis cutis 12/07/2012 09/15/2016 Tendonitis 03/09/2012 09/15/2016 Closed fracture of metatarsal bone(s) 03/02/2012 09/15/2016 Internal hemorrhoids without mention of complica tion 03/02/2011 10/20/2011 Diarrhea 03/02/2011 10/20/2011 Abdominal pain, generalized 03/02/201110/06 Other hammer toe (acquired) 02/08/201110/06 Frequency of urination 06/30/2010 2 Pelvic pain in female 06/30/2010 10/20/2011 Microscopic hematuria 06/30/2010 09/15/2016 documented as of this encounter (statuses as of 05/17/2022) [facility] History of Past illness Narrative* Problem Noted Date Resolved Date Backache, unspecified 01/03/2013 09/15/2016 Acne Vulgaris: Grade III Inflammatory and Comedo nal 12/07/2012 09/15/2016 Other seborrheic dermatitis 12/07/201209/05 Seborrhea 12/07/2012 09/15/2016 Eczematous dermatitis 12/07/2012 09/15/2016 Xerosis cutis 12/07/2012 09/15/2016 Tendonitis 03/09/2012 09/15/2016 Closed fracture of metatarsal bone(s) 03/02/2012 09/15/2016 Internal hemorrhoids without mention of complica tion 03/02/2011 10/20/2011 Diarrhea 03/02/2011 10/20/2011 Abdominal pain, generalized 03/02/201110/06 Other hammer toe (acquired) 02/08/201110/06 Frequency of urination 06/30/2010 2 Pelvic pain in female 06/30/2010 10/20/2011 Microscopic hematuria 06/30/2010 09/15/2016 documented as of this encounter (statuses as of 05/18/2022) [facility] History of Past illness Narrative* Problem Noted Date Resolved Date Backache, unspecified 01/03/2013 09/15/2016 Acne Vulgaris: Grade III Inflammatory and Comedo nal 12/07/2012 09/15/2016 Other seborrheic dermatitis 12/07/201209/05 Seborrhea 12/07/2012 09/15/2016 Eczematous dermatitis 12/07/2012 09/15/2016 Xerosis cutis 12/07/2012 09/15/2016 Tendonitis 03/09/2012 09/15/2016 Closed fracture of metatarsal bone(s) 03/02/2012 09/15/2016 Internal hemorrhoids without mention of complica tion 03/02/2011 10/20/2011 Diarrhea 03/02/2011 10/20/2011 Abdominal pain, generalized 03/02/201110/06 Other hammer toe (acquired) 02/08/201110/06 Frequency of urination 06/30/2010 2 Pelvic pain in female 06/30/2010 10/20/2011 Microscopic hematuria 06/30/2010 09/15/2016 documented as of this encounter (statuses as of 05/21/2022) [facility] History of Past illness Narrative* Problem Noted Date Resolved Date Backache, unspecified 01/03/2013 09/15/2016 Acne Vulgaris: Grade III Inflammatory and Comedo nal 12/07/2012 09/15/2016 Other seborrheic dermatitis 12/07/201209/05 Seborrhea 12/07/2012 09/15/2016 Eczematous dermatitis 12/07/2012 09/15/2016 Xerosis cutis 12/07/2012 09/15/2016 Tendonitis 03/09/2012 09/15/2016 Closed fracture of metatarsal bone(s) 03/02/2012 09/15/2016 Internal hemorrhoids without mention of complica tion 03/02/2011 10/20/2011 Diarrhea 03/02/2011 10/20/2011 Abdominal pain, generalized 03/02/201110/06 Other hammer toe (acquired) 02/08/201110/06 Frequency of urination 06/30/2010 2 Pelvic pain in female 06/30/2010 10/20/2011 Microscopic hematuria 06/30/2010 09/15/2016 documented as of this encounter (statuses as of 06/03/2022) [facility] History of Past illness Narrative* Problem Noted Date Resolved Date Backache, unspecified 01/03/2013 09/15/2016 Acne Vulgaris: Grade III Inflammatory and Comedo nal 12/07/2012 09/15/2016 Other seborrheic dermatitis 12/07/201209/05 Seborrhea 12/07/2012 09/15/2016 Eczematous dermatitis 12/07/2012 09/15/2016 Xerosis cutis 12/07/2012 09/15/2016 Tendonitis 03/09/2012 09/15/2016 Closed fracture of metatarsal bone(s) 03/02/2012 09/15/2016 Internal hemorrhoids without mention of complica tion 03/02/2011 10/20/2011 Diarrhea 03/02/2011 10/20/2011 Abdominal pain, generalized 03/02/201110/06 Other hammer toe (acquired) 02/08/201110/06 Frequency of urination 06/30/2010 2 Pelvic pain in female 06/30/2010 10/20/2011 Microscopic hematuria 06/30/2010 09/15/2016 documented as of this encounter (statuses as of 06/04/2022) [facility] History of Past illness Narrative* Problem Noted Date Resolved Date Backache, unspecified 01/03/2013 09/15/2016 Acne Vulgaris: Grade III Inflammatory and Comedo nal 12/07/2012 09/15/2016 Other seborrheic dermatitis 12/07/201209/05 Seborrhea 12/07/2012 09/15/2016 Eczematous dermatitis 12/07/2012 09/15/2016 Xerosis cutis 12/07/2012 09/15/2016 Tendonitis 03/09/2012 09/15/2016 Closed fracture of metatarsal bone(s) 03/02/2012 09/15/2016 Internal hemorrhoids without mention of complica tion 03/02/2011 10/20/2011 Diarrhea 03/02/2011 10/20/2011 Abdominal pain, generalized 03/02/201110/06 Other hammer toe (acquired) 02/08/201110/06 Frequency of urination 06/30/2010 2 Pelvic pain in female 06/30/2010 10/20/2011 Microscopic hematuria 06/30/2010 09/15/2016 documented as of this encounter (statuses as of 06/08/2022) [facility] History of Past illness Narrative* Problem Noted Date Resolved Date Backache, unspecified 01/03/2013 09/15/2016 Acne Vulgaris: Grade III Inflammatory and Comedo nal 12/07/2012 09/15/2016 Other seborrheic dermatitis 12/07/201209/05 Seborrhea 12/07/2012 09/15/2016 Eczematous dermatitis 12/07/2012 09/15/2016 Xerosis cutis 12/07/2012 09/15/2016 Tendonitis 03/09/2012 09/15/2016 Closed fracture of metatarsal bone(s) 03/02/2012 09/15/2016 Internal hemorrhoids without mention of complica tion 03/02/2011 10/20/2011 Diarrhea 03/02/2011 10/20/2011 Abdominal pain, generalized 03/02/201110/06 Other hammer toe (acquired) 02/08/201110/06 Frequency of urination 06/30/2010 2 Pelvic pain in female 06/30/2010 10/20/2011 Microscopic hematuria 06/30/2010 09/15/2016 documented as of this encounter (statuses as of 06/12/2022) [facility] History of Past illness Narrative* Problem Noted Date Resolved Date Backache, unspecified 01/03/2013 09/15/2016 Acne Vulgaris: Grade III Inflammatory and Comedo nal 12/07/2012 09/15/2016 Other seborrheic dermatitis 12/07/201209/05 Seborrhea 12/07/2012 09/15/2016 Eczematous dermatitis 12/07/2012 09/15/2016 Xerosis cutis 12/07/2012 09/15/2016 Tendonitis 03/09/2012 09/15/2016 Closed fracture of metatarsal bone(s) 03/02/2012 09/15/2016 Internal hemorrhoids without mention of complica tion 03/02/2011 10/20/2011 Diarrhea 03/02/2011 10/20/2011 Abdominal pain, generalized 03/02/201110/06 Other hammer toe (acquired) 02/08/201110/06 Frequency of urination 06/30/2010 2 Pelvic pain in female 06/30/2010 10/20/2011 Microscopic hematuria 06/30/2010 09/15/2016 documented as of this encounter (statuses as of 06/12/2022) [facility] History of Past illness Narrative* Problem Noted Date Resolved Date Backache, unspecified 01/03/2013 09/15/2016 Acne Vulgaris: Grade III Inflammatory and Comedo nal 12/07/2012 09/15/2016 Other seborrheic dermatitis 12/07/201209/05 Seborrhea 12/07/2012 09/15/2016 Eczematous dermatitis 12/07/2012 09/15/2016 Xerosis cutis 12/07/2012 09/15/2016 Tendonitis 03/09/2012 09/15/2016 Closed fracture of metatarsal bone(s) 03/02/2012 09/15/2016 Internal hemorrhoids without mention of complica tion 03/02/2011 10/20/2011 Diarrhea 03/02/2011 10/20/2011 Abdominal pain, generalized 03/02/201110/06 Other hammer toe (acquired) 02/08/201110/06 Frequency of urination 06/30/2010 2 Pelvic pain in female 06/30/2010 10/20/2011 Microscopic hematuria 06/30/2010 09/15/2016 documented as of this encounter (statuses as of 06/15/2022) [facility] History of Past illness Narrative* Problem Noted Date Resolved Date Backache, unspecified 01/03/2013 09/15/2016 Acne Vulgaris: Grade III Inflammatory and Comedo nal 12/07/2012 09/15/2016 Other seborrheic dermatitis 12/07/201209/05 Seborrhea 12/07/2012 09/15/2016 Eczematous dermatitis 12/07/2012 09/15/2016 Xerosis cutis 12/07/2012 09/15/2016 Tendonitis 03/09/2012 09/15/2016 Closed fracture of metatarsal bone(s) 03/02/2012 09/15/2016 Internal hemorrhoids without mention of complica tion 03/02/2011 10/20/2011 Diarrhea 03/02/2011 10/20/2011 Abdominal pain, generalized 03/02/201110/06 Other hammer toe (acquired) 02/08/201110/06 Frequency of urination 06/30/2010 2 Pelvic pain in female 06/30/2010 10/20/2011 Microscopic hematuria 06/30/2010 09/15/2016 documented as of this encounter (statuses as of 06/17/2022) [facility] History of Past illness Narrative* Problem Noted Date Resolved Date Backache, unspecified 01/03/2013 09/15/2016 Acne Vulgaris: Grade III Inflammatory and Comedo nal 12/07/2012 09/15/2016 Other seborrheic dermatitis 12/07/201209/05 Seborrhea 12/07/2012 09/15/2016 Eczematous dermatitis 12/07/2012 09/15/2016 Xerosis cutis 12/07/2012 09/15/2016 Tendonitis 03/09/2012 09/15/2016 Closed fracture of metatarsal bone(s) 03/02/2012 09/15/2016 Internal hemorrhoids without mention of complica tion 03/02/2011 10/20/2011 Diarrhea 03/02/2011 10/20/2011 Abdominal pain, generalized 03/02/201110/06 Other hammer toe (acquired) 02/08/201110/06 Frequency of urination 06/30/2010 2 Pelvic pain in female 06/30/2010 10/20/2011 Microscopic hematuria 06/30/2010 09/15/2016 documented as of this encounter (statuses as of 06/18/2022) [facility] History of Past illness Narrative* Problem Noted Date Resolved Date Backache, unspecified 01/03/2013 09/15/2016 Acne Vulgaris: Grade III Inflammatory and Comedo nal 12/07/2012 09/15/2016 Other seborrheic dermatitis 12/07/201209/05 Seborrhea 12/07/2012 09/15/2016 Eczematous dermatitis 12/07/2012 09/15/2016 Xerosis cutis 12/07/2012 09/15/2016 Tendonitis 03/09/2012 09/15/2016 Closed fracture of metatarsal bone(s) 03/02/2012 09/15/2016 Internal hemorrhoids without mention of complica tion 03/02/2011 10/20/2011 Diarrhea 03/02/2011 10/20/2011 Abdominal pain, generalized 03/02/201110/06 Other hammer toe (acquired) 02/08/201110/06 Frequency of urination 06/30/2010 2 Pelvic pain in female 06/30/2010 10/20/2011 Microscopic hematuria 06/30/2010 09/15/2016 documented as of this encounter (statuses as of 06/21/2022) [facility] History of Past illness Narrative* Problem Noted Date Resolved Date Backache, unspecified 01/03/2013 09/15/2016 Acne Vulgaris: Grade III Inflammatory and Comedo nal 12/07/2012 09/15/2016 Other seborrheic dermatitis 12/07/201209/05 Seborrhea 12/07/2012 09/15/2016 Eczematous dermatitis 12/07/2012 09/15/2016 Xerosis cutis 12/07/2012 09/15/2016 Tendonitis 03/09/2012 09/15/2016 Closed fracture of metatarsal bone(s) 03/02/2012 09/15/2016 Internal hemorrhoids without mention of complica tion 03/02/2011 10/20/2011 Diarrhea 03/02/2011 10/20/2011 Abdominal pain, generalized 03/02/201110/06 Other hammer toe (acquired) 02/08/201110/06 Frequency of urination 06/30/2010 2 Pelvic pain in female 06/30/2010 10/20/2011 Microscopic hematuria 06/30/2010 09/15/2016 documented as of this encounter (statuses as of 06/26/2022) [facility] History of Past illness Narrative* Problem Noted Date Resolved Date Backache, unspecified 01/03/2013 09/15/2016 Acne Vulgaris: Grade III Inflammatory and Comedo nal 12/07/2012 09/15/2016 Other seborrheic dermatitis 12/07/201209/05 Seborrhea 12/07/2012 09/15/2016 Eczematous dermatitis 12/07/2012 09/15/2016 Xerosis cutis 12/07/2012 09/15/2016 Tendonitis 03/09/2012 09/15/2016 Closed fracture of metatarsal bone(s) 03/02/2012 09/15/2016 Internal hemorrhoids without mention of complica tion 03/02/2011 10/20/2011 Diarrhea 03/02/2011 10/20/2011 Abdominal pain, generalized 03/02/201110/06 Other hammer toe (acquired) 02/08/201110/06 Frequency of urination 06/30/2010 2 Pelvic pain in female 06/30/2010 10/20/2011 Microscopic hematuria 06/30/2010 09/15/2016 documented as of this encounter (statuses as of 07/05/2022) [facility] History of Past illness Narrative* Problem Noted Date Resolved Date Backache, unspecified 01/03/2013 09/15/2016 Acne Vulgaris: Grade III Inflammatory and Comedo nal 12/07/2012 09/15/2016 Other seborrheic dermatitis 12/07/201209/05 Seborrhea 12/07/2012 09/15/2016 Eczematous dermatitis 12/07/2012 09/15/2016 Xerosis cutis 12/07/2012 09/15/2016 Tendonitis 03/09/2012 09/15/2016 Closed fracture of metatarsal bone(s) 03/02/2012 09/15/2016 Internal hemorrhoids without mention of complica tion 03/02/2011 10/20/2011 Diarrhea 03/02/2011 10/20/2011 Abdominal pain, generalized 03/02/201110/06 Other hammer toe (acquired) 02/08/201110/06 Frequency of urination 06/30/2010 2 Pelvic pain in female 06/30/2010 10/20/2011 Microscopic hematuria 06/30/2010 09/15/2016 documented as of this encounter (statuses as of 07/05/2022) [facility] History of Past illness Narrative* Problem Noted Date Resolved Date Backache, unspecified 01/03/2013 09/15/2016 Acne Vulgaris: Grade III Inflammatory and Comedo nal 12/07/2012 09/15/2016 Other seborrheic dermatitis 12/07/201209/05 Seborrhea 12/07/2012 09/15/2016 Eczematous dermatitis 12/07/2012 09/15/2016 Xerosis cutis 12/07/2012 09/15/2016 Tendonitis 03/09/2012 09/15/2016 Closed fracture of metatarsal bone(s) 03/02/2012 09/15/2016 Internal hemorrhoids without mention of complica tion 03/02/2011 10/20/2011 Diarrhea 03/02/2011 10/20/2011 Abdominal pain, generalized 03/02/201110/06 Other hammer toe (acquired) 02/08/201110/06 Frequency of urination 06/30/2010 2 Pelvic pain in female 06/30/2010 10/20/2011 Microscopic hematuria 06/30/2010 09/15/2016 documented as of this encounter (statuses as of 07/06/2022) [facility] History of Past illness Narrative* Problem Noted Date Resolved Date Backache, unspecified 01/03/2013 09/15/2016 Acne Vulgaris: Grade III Inflammatory and Comedo nal 12/07/2012 09/15/2016 Other seborrheic dermatitis 12/07/201209/05 Seborrhea 12/07/2012 09/15/2016 Eczematous dermatitis 12/07/2012 09/15/2016 Xerosis cutis 12/07/2012 09/15/2016 Tendonitis 03/09/2012 09/15/2016 Closed fracture of metatarsal bone(s) 03/02/2012 09/15/2016 Internal hemorrhoids without mention of complica tion 03/02/2011 10/20/2011 Diarrhea 03/02/2011 10/20/2011 Abdominal pain, generalized 03/02/201110/06 Other hammer toe (acquired) 02/08/201110/06 Frequency of urination 06/30/2010 2 Pelvic pain in female 06/30/2010 10/20/2011 Microscopic hematuria 06/30/2010 09/15/2016 documented as of this encounter (statuses as of 07/09/2022) [facility]05[facility] History of Past illness Narrative* Problem Noted Date Resolved Date Backache, unspecified 01/03/2013 09/15/2016 Acne Vulgaris: Grade III Inflammatory and Comedo nal 12/07/2012 09/15/2016 Other seborrheic dermatitis 12/07/201209/05 Seborrhea 12/07/2012 09/15/2016 Eczematous dermatitis 12/07/2012 09/15/2016 Xerosis cutis 12/07/2012 09/15/2016 Tendonitis 03/09/2012 09/15/2016 Closed fracture of metatarsal bone(s) 03/02/2012 09/15/2016 Internal hemorrhoids without mention of complica tion 03/02/2011 10/20/2011 Diarrhea 03/02/2011 10/20/2011 Abdominal pain, generalized 03/02/201110/06 Other hammer toe (acquired) 02/08/201110/06 Frequency of urination 06/30/2010 2 Pelvic pain in female 06/30/2010 10/20/2011 Microscopic hematuria 06/30/2010 09/15/2016 documented as of this encounter (statuses as of 07/14/2022) [facility] History of Past illness Narrative* Problem Noted Date Resolved Date Backache, unspecified 01/03/2013 09/15/2016 Acne Vulgaris: Grade III Inflammatory and Comedo nal 12/07/2012 09/15/2016 Other seborrheic dermatitis 12/07/201209/05 Seborrhea 12/07/2012 09/15/2016 Eczematous dermatitis 12/07/2012 09/15/2016 Xerosis cutis 12/07/2012 09/15/2016 Tendonitis 03/09/2012 09/15/2016 Closed fracture of metatarsal bone(s) 03/02/2012 09/15/2016 Internal hemorrhoids without mention of complica tion 03/02/2011 10/20/2011 Diarrhea 03/02/2011 10/20/2011 Abdominal pain, generalized 03/02/201110/06 Other hammer toe (acquired) 02/08/201110/06 Frequency of urination 06/30/2010 2 Pelvic pain in female 06/30/2010 10/20/2011 Microscopic hematuria 06/30/2010 09/15/2016 documented as of this encounter (statuses as of 07/15/2022) [facility] History of Past illness Narrative* Problem Noted Date Resolved Date Backache, unspecified 01/03/2013 09/15/2016 Acne Vulgaris: Grade III Inflammatory and Comedo nal 12/07/2012 09/15/2016 Other seborrheic dermatitis 12/07/201209/05 Seborrhea 12/07/2012 09/15/2016 Eczematous dermatitis 12/07/2012 09/15/2016 Xerosis cutis 12/07/2012 09/15/2016 Tendonitis 03/09/2012 09/15/2016 Closed fracture of metatarsal bone(s) 03/02/2012 09/15/2016 Internal hemorrhoids without mention of complica tion 03/02/2011 10/20/2011 Diarrhea 03/02/2011 10/20/2011 Abdominal pain, generalized 03/02/201110/06 Other hammer toe (acquired) 02/08/201110/06 Frequency of urination 06/30/2010 2 Pelvic pain in female 06/30/2010 10/20/2011 Microscopic hematuria 06/30/2010 09/15/2016 documented as of this encounter (statuses as of 07/19/2022) [facility] History of Past illness Narrative* Problem Noted Date Resolved Date Backache, unspecified 01/03/2013 09/15/2016 Acne Vulgaris: Grade III Inflammatory and Comedo nal 12/07/2012 09/15/2016 Other seborrheic dermatitis 12/07/201209/05 Seborrhea 12/07/2012 09/15/2016 Eczematous dermatitis 12/07/2012 09/15/2016 Xerosis cutis 12/07/2012 09/15/2016 Tendonitis 03/09/2012 09/15/2016 Closed fracture of metatarsal bone(s) 03/02/2012 09/15/2016 Internal hemorrhoids without mention of complica tion 03/02/2011 10/20/2011 Diarrhea 03/02/2011 10/20/2011 Abdominal pain, generalized 03/02/201110/06 Other hammer toe (acquired) 02/08/201110/06 Frequency of urination 06/30/2010 2 Pelvic pain in female 06/30/2010 10/20/2011 Microscopic hematuria 06/30/2010 09/15/2016 documented as of this encounter (statuses as of 07/19/2022) [facility] History of Past illness Narrative* Problem Noted Date Resolved Date Backache, unspecified 01/03/2013 09/15/2016 Acne Vulgaris: Grade III Inflammatory and Comedo nal 12/07/2012 09/15/2016 Other seborrheic dermatitis 12/07/201209/05 Seborrhea 12/07/2012 09/15/2016 Eczematous dermatitis 12/07/2012 09/15/2016 Xerosis cutis 12/07/2012 09/15/2016 Tendonitis 03/09/2012 09/15/2016 Closed fracture of metatarsal bone(s) 03/02/2012 09/15/2016 Internal hemorrhoids without mention of complica tion 03/02/2011 10/20/2011 Diarrhea 03/02/2011 10/20/2011 Abdominal pain, generalized 03/02/201110/06 Other hammer toe (acquired) 02/08/201110/06 Frequency of urination 06/30/2010 2 Pelvic pain in female 06/30/2010 10/20/2011 Microscopic hematuria 06/30/2010 09/15/2016 documented as of this encounter (statuses as of 07/19/2022) [facility] History of Past illness Narrative* Problem Noted Date Resolved Date Backache, unspecified 01/03/2013 09/15/2016 Acne Vulgaris: Grade III Inflammatory and Comedo nal 12/07/2012 09/15/2016 Other seborrheic dermatitis 12/07/201209/05 Seborrhea 12/07/2012 09/15/2016 Eczematous dermatitis 12/07/2012 09/15/2016 Xerosis cutis 12/07/2012 09/15/2016 Tendonitis 03/09/2012 09/15/2016 Closed fracture of metatarsal bone(s) 03/02/2012 09/15/2016 Internal hemorrhoids without mention of complica tion 03/02/2011 10/20/2011 Diarrhea 03/02/2011 10/20/2011 Abdominal pain, generalized 03/02/201110/06 Other hammer toe (acquired) 02/08/201110/06 Frequency of urination 06/30/2010 2 Pelvic pain in female 06/30/2010 10/20/2011 Microscopic hematuria 06/30/2010 09/15/2016 documented as of this encounter (statuses as of 07/21/2022) [facility] History of Past illness Narrative* Problem Noted Date Resolved Date Backache, unspecified 01/03/2013 09/15/2016 Acne Vulgaris: Grade III Inflammatory and Comedo nal 12/07/2012 09/15/2016 Other seborrheic dermatitis 12/07/201209/05 Seborrhea 12/07/2012 09/15/2016 Eczematous dermatitis 12/07/2012 09/15/2016 Xerosis cutis 12/07/2012 09/15/2016 Tendonitis 03/09/2012 09/15/2016 Closed fracture of metatarsal bone(s) 03/02/2012 09/15/2016 Internal hemorrhoids without mention of complica tion 03/02/2011 10/20/2011 Diarrhea 03/02/2011 10/20/2011 Abdominal pain, generalized 03/02/201110/06 Other hammer toe (acquired) 02/08/201110/06 Frequency of urination 06/30/2010 2 Pelvic pain in female 06/30/2010 10/20/2011 Microscopic hematuria 06/30/2010 09/15/2016 documented as of this encounter (statuses as of 07/22/2022) [facility] History of Past illness Narrative* Problem Noted Date Resolved Date Backache, unspecified 01/03/2013 09/15/2016 Acne Vulgaris: Grade III Inflammatory and Comedo nal 12/07/2012 09/15/2016 Other seborrheic dermatitis 12/07/201209/05 Seborrhea 12/07/2012 09/15/2016 Eczematous dermatitis 12/07/2012 09/15/2016 Xerosis cutis 12/07/2012 09/15/2016 Tendonitis 03/09/2012 09/15/2016 Closed fracture of metatarsal bone(s) 03/02/2012 09/15/2016 Internal hemorrhoids without mention of complica tion 03/02/2011 10/20/2011 Diarrhea 03/02/2011 10/20/2011 Abdominal pain, generalized 03/02/201110/06 Other hammer toe (acquired) 02/08/201110/06 Frequency of urination 06/30/2010 2 Pelvic pain in female 06/30/2010 10/20/2011 Microscopic hematuria 06/30/2010 09/15/2016 documented as of this encounter (statuses as of 08/03/2022) [facility] History of Past illness Narrative* Problem Noted Date Resolved Date Backache, unspecified 01/03/2013 09/15/2016 Acne Vulgaris: Grade III Inflammatory and Comedo nal 12/07/2012 09/15/2016 Other seborrheic dermatitis 12/07/201209/05 Seborrhea 12/07/2012 09/15/2016 Eczematous dermatitis 12/07/2012 09/15/2016 Xerosis cutis 12/07/2012 09/15/2016 Tendonitis 03/09/2012 09/15/2016 Closed fracture of metatarsal bone(s) 03/02/2012 09/15/2016 Internal hemorrhoids without mention of complica tion 03/02/2011 10/20/2011 Diarrhea 03/02/2011 10/20/2011 Abdominal pain, generalized 03/02/201110/06 Other hammer toe (acquired) 02/08/201110/06 Frequency of urination 06/30/2010 2 Pelvic pain in female 06/30/2010 10/20/2011 Microscopic hematuria 06/30/2010 09/15/2016 documented as of this encounter (statuses as of 08/04/2022) [facility] History of Past illness Narrative* Problem Noted Date Resolved Date Backache, unspecified 01/03/2013 09/15/2016 Acne Vulgaris: Grade III Inflammatory and Comedo nal 12/07/2012 09/15/2016 Other seborrheic dermatitis 12/07/201209/05 Seborrhea 12/07/2012 09/15/2016 Eczematous dermatitis 12/07/2012 09/15/2016 Xerosis cutis 12/07/2012 09/15/2016 Tendonitis 03/09/2012 09/15/2016 Closed fracture of metatarsal bone(s) 03/02/2012 09/15/2016 Internal hemorrhoids without mention of complica tion 03/02/2011 10/20/2011 Diarrhea 03/02/2011 10/20/2011 Abdominal pain, generalized 03/02/201110/06 Other hammer toe (acquired) 02/08/201110/06 Frequency of urination 06/30/2010 2 Pelvic pain in female 06/30/2010 10/20/2011 Microscopic hematuria 06/30/2010 09/15/2016 documented as of this encounter (statuses as of 08/06/2022) [facility] History of Past illness Narrative* Problem Noted Date Resolved Date Backache, unspecified 01/03/2013 09/15/2016 Acne Vulgaris: Grade III Inflammatory and Comedo nal 12/07/2012 09/15/2016 Other seborrheic dermatitis 12/07/201209/05 Seborrhea 12/07/2012 09/15/2016 Eczematous dermatitis 12/07/2012 09/15/2016 Xerosis cutis 12/07/2012 09/15/2016 Tendonitis 03/09/2012 09/15/2016 Closed fracture of metatarsal bone(s) 03/02/2012 09/15/2016 Internal hemorrhoids without mention of complica tion 03/02/2011 10/20/2011 Diarrhea 03/02/2011 10/20/2011 Abdominal pain, generalized 03/02/201110/06 Other hammer toe (acquired) 02/08/201110/06 Frequency of urination 06/30/2010 2 Pelvic pain in female 06/30/2010 10/20/2011 Microscopic hematuria 06/30/2010 09/15/2016 documented as of this encounter (statuses as of 08/13/2022) [facility] History of Past illness Narrative* Problem Noted Date Resolved Date Backache, unspecified 01/03/2013 09/15/2016 Acne Vulgaris: Grade III Inflammatory and Comedo nal 12/07/2012 09/15/2016 Other seborrheic dermatitis 12/07/201209/05 Seborrhea 12/07/2012 09/15/2016 Eczematous dermatitis 12/07/2012 09/15/2016 Xerosis cutis 12/07/2012 09/15/2016 Tendonitis 03/09/2012 09/15/2016 Closed fracture of metatarsal bone(s) 03/02/2012 09/15/2016 Internal hemorrhoids without mention of complica tion 03/02/2011 10/20/2011 Diarrhea 03/02/2011 10/20/2011 Abdominal pain, generalized 03/02/201110/06 Other hammer toe (acquired) 02/08/201110/06 Frequency of urination 06/30/2010 2 Pelvic pain in female 06/30/2010 10/20/2011 Microscopic hematuria 06/30/2010 09/15/2016 documented as of this encounter (statuses as of 08/13/2022) [facility] History of Past illness Narrative* Problem Noted Date Resolved Date Backache, unspecified 01/03/2013 09/15/2016 Acne Vulgaris: Grade III Inflammatory and Comedo nal 12/07/2012 09/15/2016 Other seborrheic dermatitis 12/07/201209/05 Seborrhea 12/07/2012 09/15/2016 Eczematous dermatitis 12/07/2012 09/15/2016 Xerosis cutis 12/07/2012 09/15/2016 Tendonitis 03/09/2012 09/15/2016 Closed fracture of metatarsal bone(s) 03/02/2012 09/15/2016 Internal hemorrhoids without mention of complica tion 03/02/2011 10/20/2011 Diarrhea 03/02/2011 10/20/2011 Abdominal pain, generalized 03/02/201110/06 Other hammer toe (acquired) 02/08/201110/06 Frequency of urination 06/30/2010 2 Pelvic pain in female 06/30/2010 10/20/2011 Microscopic hematuria 06/30/2010 09/15/2016 documented as of this encounter (statuses as of 08/16/2022) [facility] History of Past illness Narrative* Problem Noted Date Resolved Date Backache, unspecified 01/03/2013 09/15/2016 Acne Vulgaris: Grade III Inflammatory and Comedo nal 12/07/2012 09/15/2016 Other seborrheic dermatitis 12/07/201209/05 Seborrhea 12/07/2012 09/15/2016 Eczematous dermatitis 12/07/2012 09/15/2016 Xerosis cutis 12/07/2012 09/15/2016 Tendonitis 03/09/2012 09/15/2016 Closed fracture of metatarsal bone(s) 03/02/2012 09/15/2016 Internal hemorrhoids without mention of complica tion 03/02/2011 10/20/2011 Diarrhea 03/02/2011 10/20/2011 Abdominal pain, generalized 03/02/201110/06 Other hammer toe (acquired) 02/08/201110/06 Frequency of urination 06/30/2010 2 Pelvic pain in female 06/30/2010 10/20/2011 Microscopic hematuria 06/30/2010 09/15/2016 documented as of this encounter (statuses as of 08/17/2022) [facility] History of Past illness Narrative* Problem Noted Date Resolved Date Backache, unspecified 01/03/2013 09/15/2016 Acne Vulgaris: Grade III Inflammatory and Comedo nal 12/07/2012 09/15/2016 Other seborrheic dermatitis 12/07/201209/05 Seborrhea 12/07/2012 09/15/2016 Eczematous dermatitis 12/07/2012 09/15/2016 Xerosis cutis 12/07/2012 09/15/2016 Tendonitis 03/09/2012 09/15/2016 Closed fracture of metatarsal bone(s) 03/02/2012 09/15/2016 Internal hemorrhoids without mention of complica tion 03/02/2011 10/20/2011 Diarrhea 03/02/2011 10/20/2011 Abdominal pain, generalized 03/02/201110/06 Other hammer toe (acquired) 02/08/201110/06 Frequency of urination 06/30/2010 2 Pelvic pain in female 06/30/2010 10/20/2011 Microscopic hematuria 06/30/2010 09/15/2016 documented as of this encounter (statuses as of 08/19/2022) [facility] History of Past illness Narrative* Problem Noted Date Resolved Date Backache, unspecified 01/03/2013 09/15/2016 Acne Vulgaris: Grade III Inflammatory and Comedo nal 12/07/2012 09/15/2016 Other seborrheic dermatitis 12/07/201209/05 Seborrhea 12/07/2012 09/15/2016 Eczematous dermatitis 12/07/2012 09/15/2016 Xerosis cutis 12/07/2012 09/15/2016 Tendonitis 03/09/2012 09/15/2016 Closed fracture of metatarsal bone(s) 03/02/2012 09/15/2016 Internal hemorrhoids without mention of complica tion 03/02/2011 10/20/2011 Diarrhea 03/02/2011 10/20/2011 Abdominal pain, generalized 03/02/201110/06 Other hammer toe (acquired) 02/08/201110/06 Frequency of urination 06/30/2010 2 Pelvic pain in female 06/30/2010 10/20/2011 Microscopic hematuria 06/30/2010 09/15/2016 documented as of this encounter (statuses as of 08/20/2022) [facility] History of Past illness Narrative* Problem Noted Date Resolved Date Backache, unspecified 01/03/2013 09/15/2016 Acne Vulgaris: Grade III Inflammatory and Comedo nal 12/07/2012 09/15/2016 Other seborrheic dermatitis 12/07/201209/05 Seborrhea 12/07/2012 09/15/2016 Eczematous dermatitis 12/07/2012 09/15/2016 Xerosis cutis 12/07/2012 09/15/2016 Tendonitis 03/09/2012 09/15/2016 Closed fracture of metatarsal bone(s) 03/02/2012 09/15/2016 Internal hemorrhoids without mention of complica tion 03/02/2011 10/20/2011 Diarrhea 03/02/2011 10/20/2011 Abdominal pain, generalized 03/02/201110/06 Other hammer toe (acquired) 02/08/201110/06 Frequency of urination 06/30/2010 2 Pelvic pain in female 06/30/2010 10/20/2011 Microscopic hematuria 06/30/2010 09/15/2016 documented as of this encounter (statuses as of 09/02/2022) [facility] History of Past illness Narrative* Problem Noted Date Resolved Date Backache, unspecified 01/03/2013 09/15/2016 Acne Vulgaris: Grade III Inflammatory and Comedo nal 12/07/2012 09/15/2016 Other seborrheic dermatitis 12/07/201209/05 Seborrhea 12/07/2012 09/15/2016 Eczematous dermatitis 12/07/2012 09/15/2016 Xerosis cutis 12/07/2012 09/15/2016 Tendonitis 03/09/2012 09/15/2016 Closed fracture of metatarsal bone(s) 03/02/2012 09/15/2016 Internal hemorrhoids without mention of complica tion 03/02/2011 10/20/2011 Diarrhea 03/02/2011 10/20/2011 Abdominal pain, generalized 03/02/201110/06 Other hammer toe (acquired) 02/08/201110/06 Frequency of urination 06/30/2010 2 Pelvic pain in female 06/30/2010 10/20/2011 Microscopic hematuria 06/30/2010 09/15/2016 documented as of this encounter (statuses as of 09/06/2022) [facility] History of Past illness Narrative* Problem Noted Date Resolved Date Backache, unspecified 01/03/2013 09/15/2016 Acne Vulgaris: Grade III Inflammatory and Comedo nal 12/07/2012 09/15/2016 Other seborrheic dermatitis 12/07/201209/05 Seborrhea 12/07/2012 09/15/2016 Eczematous dermatitis 12/07/2012 09/15/2016 Xerosis cutis 12/07/2012 09/15/2016 Tendonitis 03/09/2012 09/15/2016 Closed fracture of metatarsal bone(s) 03/02/2012 09/15/2016 Internal hemorrhoids without mention of complica tion 03/02/2011 10/20/2011 Diarrhea 03/02/2011 10/20/2011 Abdominal pain, generalized 03/02/201110/06 Other hammer toe (acquired) 02/08/201110/06 Frequency of urination 06/30/2010 2 Pelvic pain in female 06/30/2010 10/20/2011 Microscopic hematuria 06/30/2010 09/15/2016 documented as of this encounter (statuses as of 09/09/2022) [facility] History of Past illness Narrative* Problem Noted Date Resolved Date Backache, unspecified 01/03/2013 09/15/2016 Acne Vulgaris: Grade III Inflammatory and Comedo nal 12/07/2012 09/15/2016 Other seborrheic dermatitis 12/07/201209/05 Seborrhea 12/07/2012 09/15/2016 Eczematous dermatitis 12/07/2012 09/15/2016 Xerosis cutis 12/07/2012 09/15/2016 Tendonitis 03/09/2012 09/15/2016 Closed fracture of metatarsal bone(s) 03/02/2012 09/15/2016 Internal hemorrhoids without mention of complica tion 03/02/2011 10/20/2011 Diarrhea 03/02/2011 10/20/2011 Abdominal pain, generalized 03/02/201110/06 Other hammer toe (acquired) 02/08/201110/06 Frequency of urination 06/30/2010 2 Pelvic pain in female 06/30/2010 10/20/2011 Microscopic hematuria 06/30/2010 09/15/2016 documented as of this encounter (statuses as of 09/11/2022) [facility] History of Past illness Narrative* Problem Noted Date Resolved Date Backache, unspecified 01/03/2013 09/15/2016 Acne Vulgaris: Grade III Inflammatory and Comedo nal 12/07/2012 09/15/2016 Other seborrheic dermatitis 12/07/201209/05 Seborrhea 12/07/2012 09/15/2016 Eczematous dermatitis 12/07/2012 09/15/2016 Xerosis cutis 12/07/2012 09/15/2016 Tendonitis 03/09/2012 09/15/2016 Closed fracture of metatarsal bone(s) 03/02/2012 09/15/2016 Internal hemorrhoids without mention of complica tion 03/02/2011 10/20/2011 Diarrhea 03/02/2011 10/20/2011 Abdominal pain, generalized 03/02/201110/06 Other hammer toe (acquired) 02/08/201110/06 Frequency of urination 06/30/2010 2 Pelvic pain in female 06/30/2010 10/20/2011 Microscopic hematuria 06/30/2010 09/15/2016 documented as of this encounter (statuses as of 09/15/2022) [facility] History of Past illness Narrative* Problem Noted Date Resolved Date Backache, unspecified 01/03/2013 09/15/2016 Acne Vulgaris: Grade III Inflammatory and Comedo nal 12/07/2012 09/15/2016 Other seborrheic dermatitis 12/07/201209/05 Seborrhea 12/07/2012 09/15/2016 Eczematous dermatitis 12/07/2012 09/15/2016 Xerosis cutis 12/07/2012 09/15/2016 Tendonitis 03/09/2012 09/15/2016 Closed fracture of metatarsal bone(s) 03/02/2012 09/15/2016 Internal hemorrhoids without mention of complica tion 03/02/2011 10/20/2011 Diarrhea 03/02/2011 10/20/2011 Abdominal pain, generalized 03/02/201110/06 Other hammer toe (acquired) 02/08/201110/06 Frequency of urination 06/30/2010 2 Pelvic pain in female 06/30/2010 10/20/2011 Microscopic hematuria 06/30/2010 09/15/2016 documented as of this encounter (statuses as of 09/17/2022) [facility] History of Past illness Narrative* Problem Noted Date Resolved Date Backache, unspecified 01/03/2013 09/15/2016 Acne Vulgaris: Grade III Inflammatory and Comedo nal 12/07/2012 09/15/2016 Other seborrheic dermatitis 12/07/201209/05 Seborrhea 12/07/2012 09/15/2016 Eczematous dermatitis 12/07/2012 09/15/2016 Xerosis cutis 12/07/2012 09/15/2016 Tendonitis 03/09/2012 09/15/2016 Closed fracture of metatarsal bone(s) 03/02/2012 09/15/2016 Internal hemorrhoids without mention of complica tion 03/02/2011 10/20/2011 Diarrhea 03/02/2011 10/20/2011 Abdominal pain, generalized 03/02/201110/06 Other hammer toe (acquired) 02/08/201110/06 Frequency of urination 06/30/2010 2 Pelvic pain in female 06/30/2010 10/20/2011 Microscopic hematuria 06/30/2010 09/15/2016 documented as of this encounter (statuses as of 09/20/2022) [facility] History of Past illness Narrative* Problem Noted Date Resolved Date Backache, unspecified 01/03/2013 09/15/2016 Acne Vulgaris: Grade III Inflammatory and Comedo nal 12/07/2012 09/15/2016 Other seborrheic dermatitis 12/07/201209/05 Seborrhea 12/07/2012 09/15/2016 Eczematous dermatitis 12/07/2012 09/15/2016 Xerosis cutis 12/07/2012 09/15/2016 Tendonitis 03/09/2012 09/15/2016 Closed fracture of metatarsal bone(s) 03/02/2012 09/15/2016 Internal hemorrhoids without mention of complica tion 03/02/2011 10/20/2011 Diarrhea 03/02/2011 10/20/2011 Abdominal pain, generalized 03/02/201110/06 Other hammer toe (acquired) 02/08/201110/06 Frequency of urination 06/30/2010 2 Pelvic pain in female 06/30/2010 10/20/2011 Microscopic hematuria 06/30/2010 09/15/2016 documented as of this encounter (statuses as of 09/23/2022) [facility] History of Past illness Narrative* Problem Noted Date Resolved Date Backache, unspecified 01/03/2013 09/15/2016 Acne Vulgaris: Grade III Inflammatory and Comedo nal 12/07/2012 09/15/2016 Other seborrheic dermatitis 12/07/201209/05 Seborrhea 12/07/2012 09/15/2016 Eczematous dermatitis 12/07/2012 09/15/2016 Xerosis cutis 12/07/2012 09/15/2016 Tendonitis 03/09/2012 09/15/2016 Closed fracture of metatarsal bone(s) 03/02/2012 09/15/2016 Internal hemorrhoids without mention of complica tion 03/02/2011 10/20/2011 Diarrhea 03/02/2011 10/20/2011 Abdominal pain, generalized 03/02/201110/06 Other hammer toe (acquired) 02/08/201110/06 Frequency of urination 06/30/2010 2 Pelvic pain in female 06/30/2010 10/20/2011 Microscopic hematuria 06/30/2010 09/15/2016 documented as of this encounter (statuses as of 09/29/2022) [facility] History of Past illness Narrative* Problem Noted Date Resolved Date Backache, unspecified 01/03/2013 09/15/2016 Acne Vulgaris: Grade III Inflammatory and Comedo nal 12/07/2012 09/15/2016 Other seborrheic dermatitis 12/07/201209/05 Seborrhea 12/07/2012 09/15/2016 Eczematous dermatitis 12/07/2012 09/15/2016 Xerosis cutis 12/07/2012 09/15/2016 Tendonitis 03/09/2012 09/15/2016 Closed fracture of metatarsal bone(s) 03/02/2012 09/15/2016 Internal hemorrhoids without mention of complica tion 03/02/2011 10/20/2011 Diarrhea 03/02/2011 10/20/2011 Abdominal pain, generalized 03/02/201110/06 Other hammer toe (acquired) 02/08/201110/06 Frequency of urination 06/30/2010 2 Pelvic pain in female 06/30/2010 10/20/2011 Microscopic hematuria 06/30/2010 09/15/2016 documented as of this encounter (statuses as of 09/29/2022) [facility] History of Past illness Narrative* Problem Noted Date Resolved Date Backache, unspecified 01/03/2013 09/15/2016 Acne Vulgaris: Grade III Inflammatory and Comedo nal 12/07/2012 09/15/2016 Other seborrheic dermatitis 12/07/201209/05 Seborrhea 12/07/2012 09/15/2016 Eczematous dermatitis 12/07/2012 09/15/2016 Xerosis cutis 12/07/2012 09/15/2016 Tendonitis 03/09/2012 09/15/2016 Closed fracture of metatarsal bone(s) 03/02/2012 09/15/2016 Internal hemorrhoids without mention of complica tion 03/02/2011 10/20/2011 Diarrhea 03/02/2011 10/20/2011 Abdominal pain, generalized 03/02/201110/06 Other hammer toe (acquired) 02/08/201110/06 Frequency of urination 06/30/2010 2 Pelvic pain in female 06/30/2010 10/20/2011 Microscopic hematuria 06/30/2010 09/15/2016 documented as of this encounter (statuses as of 10/01/2022) [facility]05-[facility]2013 History of Past illness Narrative* Problem Noted Date Resolved Date Backache, unspecified 01/03/2013 09/15/2016 Acne Vulgaris: Grade III Inflammatory and Comedo nal 12/07/2012 09/15/2016 Other seborrheic dermatitis 12/07/201209/05 Seborrhea 12/07/2012 09/15/2016 Eczematous dermatitis 12/07/2012 09/15/2016 Xerosis cutis 12/07/2012 09/15/2016 Tendonitis 03/09/2012 09/15/2016 Closed fracture of metatarsal bone(s) 03/02/2012 09/15/2016 Internal hemorrhoids without mention of complica tion 03/02/2011 10/20/2011 Diarrhea 03/02/2011 10/20/2011 Abdominal pain, generalized 03/02/201110/06 Other hammer toe (acquired) 02/08/201110/06 Frequency of urination 06/30/2010 2 Pelvic pain in female 06/30/2010 10/20/2011 Microscopic hematuria 06/30/2010 09/15/2016 documented as of this encounter (statuses as of 10/04/2022) [facility] History of Past illness Narrative* Problem Noted Date Resolved Date Backache, unspecified 01/03/2013 09/15/2016 Acne Vulgaris: Grade III Inflammatory and Comedo nal 12/07/2012 09/15/2016 Other seborrheic dermatitis 12/07/201209/05 Seborrhea 12/07/2012 09/15/2016 Eczematous dermatitis 12/07/2012 09/15/2016 Xerosis cutis 12/07/2012 09/15/2016 Tendonitis 03/09/2012 09/15/2016 Closed fracture of metatarsal bone(s) 03/02/2012 09/15/2016 Internal hemorrhoids without mention of complica tion 03/02/2011 10/20/2011 Diarrhea 03/02/2011 10/20/2011 Abdominal pain, generalized 03/02/201110/06 Other hammer toe (acquired) 02/08/201110/06 Frequency of urination 06/30/2010 2 Pelvic pain in female 06/30/2010 10/20/2011 Microscopic hematuria 06/30/2010 09/15/2016 documented as of this encounter (statuses as of 10/08/2022) [facility] History of Past illness Narrative* Problem Noted Date Resolved Date Backache, unspecified 01/03/2013 09/15/2016 Acne Vulgaris: Grade III Inflammatory and Comedo nal 12/07/2012 09/15/2016 Other seborrheic dermatitis 12/07/201209/05 Seborrhea 12/07/2012 09/15/2016 Eczematous dermatitis 12/07/2012 09/15/2016 Xerosis cutis 12/07/2012 09/15/2016 Tendonitis 03/09/2012 09/15/2016 Closed fracture of metatarsal bone(s) 03/02/2012 09/15/2016 Internal hemorrhoids without mention of complica tion 03/02/2011 10/20/2011 Diarrhea 03/02/2011 10/20/2011 Abdominal pain, generalized 03/02/201110/06 Other hammer toe (acquired) 02/08/201110/06 Frequency of urination 06/30/2010 2 Pelvic pain in female 06/30/2010 10/20/2011 Microscopic hematuria 06/30/2010 09/15/2016 documented as of this encounter (statuses as of 10/14/2022) [facility] History of Past illness Narrative* Problem Noted Date Resolved Date Backache, unspecified 01/03/2013 09/15/2016 Acne Vulgaris: Grade III Inflammatory and Comedo nal 12/07/2012 09/15/2016 Other seborrheic dermatitis 12/07/201209/05 Seborrhea 12/07/2012 09/15/2016 Eczematous dermatitis 12/07/2012 09/15/2016 Xerosis cutis 12/07/2012 09/15/2016 Tendonitis 03/09/2012 09/15/2016 Closed fracture of metatarsal bone(s) 03/02/2012 09/15/2016 Internal hemorrhoids without mention of complica tion 03/02/2011 10/20/2011 Diarrhea 03/02/2011 10/20/2011 Abdominal pain, generalized 03/02/201110/06 Other hammer toe (acquired) 02/08/201110/06 Frequency of urination 06/30/2010 2 Pelvic pain in female 06/30/2010 10/20/2011 Microscopic hematuria 06/30/2010 09/15/2016 documented as of this encounter (statuses as of 11/04/2022) [facility] History of Past illness Narrative* Problem Noted Date Resolved Date Backache, unspecified 01/03/2013 09/15/2016 Acne Vulgaris: Grade III Inflammatory and Comedo nal 12/07/2012 09/15/2016 Other seborrheic dermatitis 12/07/201209/05 Seborrhea 12/07/2012 09/15/2016 Eczematous dermatitis 12/07/2012 09/15/2016 Xerosis cutis 12/07/2012 09/15/2016 Tendonitis 03/09/2012 09/15/2016 Closed fracture of metatarsal bone(s) 03/02/2012 09/15/2016 Internal hemorrhoids without mention of complica tion 03/02/2011 10/20/2011 Diarrhea 03/02/2011 10/20/2011 Abdominal pain, generalized 03/02/201110/06 Other hammer toe (acquired) 02/08/201110/06 Frequency of urination 06/30/2010 2 Pelvic pain in female 06/30/2010 10/20/2011 Microscopic hematuria 06/30/2010 09/15/2016 documented as of this encounter (statuses as of 2022) [facility] History of Past illness Narrative* Problem Noted Date Resolved Date Backache, unspecified 01/03/2013 09/15/2016 Acne Vulgaris: Grade III Inflammatory and Comedo nal 12/07/2012 09/15/2016 Other seborrheic dermatitis 12/07/201209/05 Seborrhea 12/07/2012 09/15/2016 Eczematous dermatitis 12/07/2012 09/15/2016 Xerosis cutis 12/07/2012 09/15/2016 Tendonitis 03/09/2012 09/15/2016 Closed fracture of metatarsal bone(s) 03/02/2012 09/15/2016 Internal hemorrhoids without mention of complica tion 03/02/2011 10/20/2011 Diarrhea 03/02/2011 10/20/2011 Abdominal pain, generalized 03/02/201110/06 Other hammer toe (acquired) 02/08/201110/06 Frequency of urination 06/30/2010 2 Pelvic pain in female 06/30/2010 10/20/2011 Microscopic hematuria 06/30/2010 09/15/2016 documented as of this encounter (statuses as of 11/08/2022) [facility] History of Past illness Narrative* Problem Noted Date Resolved Date Backache, unspecified 01/03/2013 09/15/2016 Acne Vulgaris: Grade III Inflammatory and Comedo nal 12/07/2012 09/15/2016 Other seborrheic dermatitis 12/07/201209/05 Seborrhea 12/07/2012 09/15/2016 Eczematous dermatitis 12/07/2012 09/15/2016 Xerosis cutis 12/07/2012 09/15/2016 Tendonitis 03/09/2012 09/15/2016 Closed fracture of metatarsal bone(s) 03/02/2012 09/15/2016 Internal hemorrhoids without mention of complica tion 03/02/2011 10/20/2011 Diarrhea 03/02/2011 10/20/2011 Abdominal pain, generalized 03/02/201110/06 Other hammer toe (acquired) 02/08/201110/06 Frequency of urination 06/30/2010 2 Pelvic pain in female 06/30/2010 10/20/2011 Microscopic hematuria 06/30/2010 09/15/2016 documented as of this encounter (statuses as of 11/09/2022) [facility] History of Past illness Narrative* Problem Noted Date Resolved Date Backache, unspecified 01/03/2013 09/15/2016 Acne Vulgaris: Grade III Inflammatory and Comedo nal 12/07/2012 09/15/2016 Other seborrheic dermatitis 12/07/201209/05 Seborrhea 12/07/2012 09/15/2016 Eczematous dermatitis 12/07/2012 09/15/2016 Xerosis cutis 12/07/2012 09/15/2016 Tendonitis 03/09/2012 09/15/2016 Closed fracture of metatarsal bone(s) 03/02/2012 09/15/2016 Internal hemorrhoids without mention of complica tion 03/02/2011 10/20/2011 Diarrhea 03/02/2011 10/20/2011 Abdominal pain, generalized 03/02/201110/06 Other hammer toe (acquired) 02/08/201110/06 Frequency of urination 06/30/2010 2 Pelvic pain in female 06/30/2010 10/20/2011 Microscopic hematuria 06/30/2010 09/15/2016 documented as of this encounter (statuses as of 11/10/2022) [facility] History of Past illness Narrative* Problem Noted Date Resolved Date Backache, unspecified 01/03/2013 09/15/2016 Acne Vulgaris: Grade III Inflammatory and Comedo nal 12/07/2012 09/15/2016 Other seborrheic dermatitis 12/07/201209/05 Seborrhea 12/07/2012 09/15/2016 Eczematous dermatitis 12/07/2012 09/15/2016 Xerosis cutis 12/07/2012 09/15/2016 Tendonitis 03/09/2012 09/15/2016 Closed fracture of metatarsal bone(s) 03/02/2012 09/15/2016 Internal hemorrhoids without mention of complica tion 03/02/2011 10/20/2011 Diarrhea 03/02/2011 10/20/2011 Abdominal pain, generalized 03/02/201110/06 Other hammer toe (acquired) 02/08/201110/06 Frequency of urination 06/30/2010 2 Pelvic pain in female 06/30/2010 10/20/2011 Microscopic hematuria 06/30/2010 09/15/2016 documented as of this encounter (statuses as of 11/10/2022) [facility] History of Past illness Narrative* Problem Noted Date Resolved Date Backache, unspecified 01/03/2013 09/15/2016 Acne Vulgaris: Grade III Inflammatory and Comedo nal 12/07/2012 09/15/2016 Other seborrheic dermatitis 12/07/201209/05 Seborrhea 12/07/2012 09/15/2016 Eczematous dermatitis 12/07/2012 09/15/2016 Xerosis cutis 12/07/2012 09/15/2016 Tendonitis 03/09/2012 09/15/2016 Closed fracture of metatarsal bone(s) 03/02/2012 09/15/2016 Internal hemorrhoids without mention of complica tion 03/02/2011 10/20/2011 Diarrhea 03/02/2011 10/20/2011 Abdominal pain, generalized 03/02/201110/06 Other hammer toe (acquired) 02/08/201110/06 Frequency of urination 06/30/2010 2 Pelvic pain in female 06/30/2010 10/20/2011 Microscopic hematuria 06/30/2010 09/15/2016 documented as of this encounter (statuses as of 11/10/2022) [facility] History of Past illness Narrative* Problem Noted Date Resolved Date Backache, unspecified 01/03/2013 09/15/2016 Acne Vulgaris: Grade III Inflammatory and Comedo nal 12/07/2012 09/15/2016 Other seborrheic dermatitis 12/07/201209/05 Seborrhea 12/07/2012 09/15/2016 Eczematous dermatitis 12/07/2012 09/15/2016 Xerosis cutis 12/07/2012 09/15/2016 Tendonitis 03/09/2012 09/15/2016 Closed fracture of metatarsal bone(s) 03/02/2012 09/15/2016 Internal hemorrhoids without mention of complica tion 03/02/2011 10/20/2011 Diarrhea 03/02/2011 10/20/2011 Abdominal pain, generalized 03/02/201110/06 Other hammer toe (acquired) 02/08/201110/06 Frequency of urination 06/30/2010 2 Pelvic pain in female 06/30/2010 10/20/2011 Microscopic hematuria 06/30/2010 09/15/2016 documented as of this encounter (statuses as of 11/11/2022) [facility] History of Past illness Narrative* Problem Noted Date Resolved Date Backache, unspecified 01/03/2013 09/15/2016 Acne Vulgaris: Grade III Inflammatory and Comedo nal 12/07/2012 09/15/2016 Other seborrheic dermatitis 12/07/201209/05 Seborrhea 12/07/2012 09/15/2016 Eczematous dermatitis 12/07/2012 09/15/2016 Xerosis cutis 12/07/2012 09/15/2016 Tendonitis 03/09/2012 09/15/2016 Closed fracture of metatarsal bone(s) 03/02/2012 09/15/2016 Internal hemorrhoids without mention of complica tion 03/02/2011 10/20/2011 Diarrhea 03/02/2011 10/20/2011 Abdominal pain, generalized 03/02/201110/06 Other hammer toe (acquired) 02/08/201110/06 Frequency of urination 06/30/2010 2 Pelvic pain in female 06/30/2010 10/20/2011 Microscopic hematuria 06/30/2010 09/15/2016 documented as of this encounter (statuses as of 11/12/2022) [facility] History of Past illness Narrative* Problem Noted Date Resolved Date Backache, unspecified 01/03/2013 09/15/2016 Acne Vulgaris: Grade III Inflammatory and Comedo nal 12/07/2012 09/15/2016 Other seborrheic dermatitis 12/07/201209/05 Seborrhea 12/07/2012 09/15/2016 Eczematous dermatitis 12/07/2012 09/15/2016 Xerosis cutis 12/07/2012 09/15/2016 Tendonitis 03/09/2012 09/15/2016 Closed fracture of metatarsal bone(s) 03/02/2012 09/15/2016 Internal hemorrhoids without mention of complica tion 03/02/2011 10/20/2011 Diarrhea 03/02/2011 10/20/2011 Abdominal pain, generalized 03/02/201110/06 Other hammer toe (acquired) 02/08/201110/06 Frequency of urination 06/30/2010 2 Pelvic pain in female 06/30/2010 10/20/2011 Microscopic hematuria 06/30/2010 09/15/2016 documented as of this encounter (statuses as of 11/13/2022) [facility] History of Past illness Narrative* Problem Noted Date Resolved Date Backache, unspecified 01/03/2013 09/15/2016 Acne Vulgaris: Grade III Inflammatory and Comedo nal 12/07/2012 09/15/2016 Other seborrheic dermatitis 12/07/201209/05 Seborrhea 12/07/2012 09/15/2016 Eczematous dermatitis 12/07/2012 09/15/2016 Xerosis cutis 12/07/2012 09/15/2016 Tendonitis 03/09/2012 09/15/2016 Closed fracture of metatarsal bone(s) 03/02/2012 09/15/2016 Internal hemorrhoids without mention of complica tion 03/02/2011 10/20/2011 Diarrhea 03/02/2011 10/20/2011 Abdominal pain, generalized 03/02/201110/06 Other hammer toe (acquired) 02/08/201110/06 Frequency of urination 06/30/2010 2 Pelvic pain in female 06/30/2010 10/20/2011 Microscopic hematuria 06/30/2010 09/15/2016 documented as of this encounter (statuses as of 11/15/2022) [facility] History of Past illness Narrative* Problem Noted Date Resolved Date Backache, unspecified 01/03/2013 09/15/2016 Acne Vulgaris: Grade III Inflammatory and Comedo nal 12/07/2012 09/15/2016 Other seborrheic dermatitis 12/07/201209/05 Seborrhea 12/07/2012 09/15/2016 Eczematous dermatitis 12/07/2012 09/15/2016 Xerosis cutis 12/07/2012 09/15/2016 Tendonitis 03/09/2012 09/15/2016 Closed fracture of metatarsal bone(s) 03/02/2012 09/15/2016 Internal hemorrhoids without mention of complica tion 03/02/2011 10/20/2011 Diarrhea 03/02/2011 10/20/2011 Abdominal pain, generalized 03/02/201110/06 Other hammer toe (acquired) 02/08/201110/06 Frequency of urination 06/30/2010 2 Pelvic pain in female 06/30/2010 10/20/2011 Microscopic hematuria 06/30/2010 09/15/2016 documented as of this encounter (statuses as of 11/15/2022) [facility] History of Past illness Narrative* Problem Noted Date Resolved Date Backache, unspecified 01/03/2013 09/15/2016 Acne Vulgaris: Grade III Inflammatory and Comedo nal 12/07/2012 09/15/2016 Other seborrheic dermatitis 12/07/201209/05 Seborrhea 12/07/2012 09/15/2016 Eczematous dermatitis 12/07/2012 09/15/2016 Xerosis cutis 12/07/2012 09/15/2016 Tendonitis 03/09/2012 09/15/2016 Closed fracture of metatarsal bone(s) 03/02/2012 09/15/2016 Internal hemorrhoids without mention of complica tion 03/02/2011 10/20/2011 Diarrhea 03/02/2011 10/20/2011 Abdominal pain, generalized 03/02/201110/06 Other hammer toe (acquired) 02/08/201110/06 Frequency of urination 06/30/2010 2 Pelvic pain in female 06/30/2010 10/20/2011 Microscopic hematuria 06/30/2010 09/15/2016 documented as of this encounter (statuses as of 11/17/2022) [facility] History of Past illness Narrative* Problem Noted Date Resolved Date Backache, unspecified 01/03/2013 09/15/2016 Acne Vulgaris: Grade III Inflammatory and Comedo nal 12/07/2012 09/15/2016 Other seborrheic dermatitis 12/07/201209/05 Seborrhea 12/07/2012 09/15/2016 Eczematous dermatitis 12/07/2012 09/15/2016 Xerosis cutis 12/07/2012 09/15/2016 Tendonitis 03/09/2012 09/15/2016 Closed fracture of metatarsal bone(s) 03/02/2012 09/15/2016 Internal hemorrhoids without mention of complica tion 03/02/2011 10/20/2011 Diarrhea 03/02/2011 10/20/2011 Abdominal pain, generalized 03/02/201110/06 Other hammer toe (acquired) 02/08/201110/06 Frequency of urination 06/30/2010 2 Pelvic pain in female 06/30/2010 10/20/2011 Microscopic hematuria 06/30/2010 09/15/2016 documented as of this encounter (statuses as of 11/17/2022) [facility] History of Past illness Narrative* Problem Noted Date Resolved Date Backache, unspecified 01/03/2013 09/15/2016 Acne Vulgaris: Grade III Inflammatory and Comedo nal 12/07/2012 09/15/2016 Other seborrheic dermatitis 12/07/201209/05 Seborrhea 12/07/2012 09/15/2016 Eczematous dermatitis 12/07/2012 09/15/2016 Xerosis cutis 12/07/2012 09/15/2016 Tendonitis 03/09/2012 09/15/2016 Closed fracture of metatarsal bone(s) 03/02/2012 09/15/2016 Internal hemorrhoids without mention of complica tion 03/02/2011 10/20/2011 Diarrhea 03/02/2011 10/20/2011 Abdominal pain, generalized 03/02/201110/06 Other hammer toe (acquired) 02/08/201110/06 Frequency of urination 06/30/2010 2 Pelvic pain in female 06/30/2010 10/20/2011 Microscopic hematuria 06/30/2010 09/15/2016 documented as of this encounter (statuses as of 11/17/2022) [facility] History of Past illness Narrative* Problem Noted Date Resolved Date Backache, unspecified 01/03/2013 09/15/2016 Acne Vulgaris: Grade III Inflammatory and Comedo nal 12/07/2012 09/15/2016 Other seborrheic dermatitis 12/07/201209/05 Seborrhea 12/07/2012 09/15/2016 Eczematous dermatitis 12/07/2012 09/15/2016 Xerosis cutis 12/07/2012 09/15/2016 Tendonitis 03/09/2012 09/15/2016 Closed fracture of metatarsal bone(s) 03/02/2012 09/15/2016 Internal hemorrhoids without mention of complica tion 03/02/2011 10/20/2011 Diarrhea 03/02/2011 10/20/2011 Abdominal pain, generalized 03/02/201110/06 Other hammer toe (acquired) 02/08/201110/06 Frequency of urination 06/30/2010 2 Pelvic pain in female 06/30/2010 10/20/2011 Microscopic hematuria 06/30/2010 09/15/2016 documented as of this encounter (statuses as of 11/18/2022) [facility] History of Past illness Narrative* Problem Noted Date Resolved Date Backache, unspecified 01/03/2013 09/15/2016 Acne Vulgaris: Grade III Inflammatory and Comedo nal 12/07/2012 09/15/2016 Other seborrheic dermatitis 12/07/201209/05 Seborrhea 12/07/2012 09/15/2016 Eczematous dermatitis 12/07/2012 09/15/2016 Xerosis cutis 12/07/2012 09/15/2016 Tendonitis 03/09/2012 09/15/2016 Closed fracture of metatarsal bone(s) 03/02/2012 09/15/2016 Internal hemorrhoids without mention of complica tion 03/02/2011 10/20/2011 Diarrhea 03/02/2011 10/20/2011 Abdominal pain, generalized 03/02/201110/06 Other hammer toe (acquired) 02/08/201110/06 Frequency of urination 06/30/2010 2 Pelvic pain in female 06/30/2010 10/20/2011 Microscopic hematuria 06/30/2010 09/15/2016 documented as of this encounter (statuses as of 11/19/2022) [facility] History of Past illness Narrative* Problem Noted Date Resolved Date Backache, unspecified 01/03/2013 09/15/2016 Acne Vulgaris: Grade III Inflammatory and Comedo nal 12/07/2012 09/15/2016 Other seborrheic dermatitis 12/07/201209/05 Seborrhea 12/07/2012 09/15/2016 Eczematous dermatitis 12/07/2012 09/15/2016 Xerosis cutis 12/07/2012 09/15/2016 Tendonitis 03/09/2012 09/15/2016 Closed fracture of metatarsal bone(s) 03/02/2012 09/15/2016 Internal hemorrhoids without mention of complica tion 03/02/2011 10/20/2011 Diarrhea 03/02/2011 10/20/2011 Abdominal pain, generalized 03/02/201110/06 Other hammer toe (acquired) 02/08/201110/06 Frequency of urination 06/30/2010 2 Pelvic pain in female 06/30/2010 10/20/2011 Microscopic hematuria 06/30/2010 09/15/2016 documented as of this encounter (statuses as of 11/19/2022) [facility] History of Past illness Narrative* Problem Noted Date Resolved Date Backache, unspecified 01/03/2013 09/15/2016 Acne Vulgaris: Grade III Inflammatory and Comedo nal 12/07/2012 09/15/2016 Other seborrheic dermatitis 12/07/201209/05 Seborrhea 12/07/2012 09/15/2016 Eczematous dermatitis 12/07/2012 09/15/2016 Xerosis cutis 12/07/2012 09/15/2016 Tendonitis 03/09/2012 09/15/2016 Closed fracture of metatarsal bone(s) 03/02/2012 09/15/2016 Internal hemorrhoids without mention of complica tion 03/02/2011 10/20/2011 Diarrhea 03/02/2011 10/20/2011 Abdominal pain, generalized 03/02/201110/06 Other hammer toe (acquired) 02/08/201110/06 Frequency of urination 06/30/2010 2 Pelvic pain in female 06/30/2010 10/20/2011 Microscopic hematuria 06/30/2010 09/15/2016 documented as of this encounter (statuses as of 11/21/2022) [facility] History of Past illness Narrative* Problem Noted Date Resolved Date Backache, unspecified 01/03/2013 09/15/2016 Acne Vulgaris: Grade III Inflammatory and Comedo nal 12/07/2012 09/15/2016 Other seborrheic dermatitis 12/07/201209/05 Seborrhea 12/07/2012 09/15/2016 Eczematous dermatitis 12/07/2012 09/15/2016 Xerosis cutis 12/07/2012 09/15/2016 Tendonitis 03/09/2012 09/15/2016 Closed fracture of metatarsal bone(s) 03/02/2012 09/15/2016 Internal hemorrhoids without mention of complica tion 03/02/2011 10/20/2011 Diarrhea 03/02/2011 10/20/2011 Abdominal pain, generalized 03/02/201110/06 Other hammer toe (acquired) 02/08/201110/06 Frequency of urination 06/30/2010 2 Pelvic pain in female 06/30/2010 10/20/2011 Microscopic hematuria 06/30/2010 09/15/2016 documented as of this encounter (statuses as of 11/22/2022) [facility] History of Past illness Narrative* Problem Noted Date Resolved Date Backache, unspecified 01/03/2013 09/15/2016 Acne Vulgaris: Grade III Inflammatory and Comedo nal 12/07/2012 09/15/2016 Other seborrheic dermatitis 12/07/201209/05 Seborrhea 12/07/2012 09/15/2016 Eczematous dermatitis 12/07/2012 09/15/2016 Xerosis cutis 12/07/2012 09/15/2016 Tendonitis 03/09/2012 09/15/2016 Closed fracture of metatarsal bone(s) 03/02/2012 09/15/2016 Internal hemorrhoids without mention of complica tion 03/02/2011 10/20/2011 Diarrhea 03/02/2011 10/20/2011 Abdominal pain, generalized 03/02/201110/06 Other hammer toe (acquired) 02/08/201110/06 Frequency of urination 06/30/2010 2 Pelvic pain in female 06/30/2010 10/20/2011 Microscopic hematuria 06/30/2010 09/15/2016 documented as of this encounter (statuses as of 12/06/2022) [facility] History of Past illness Narrative* Problem Noted Date Resolved Date Backache, unspecified 01/03/2013 09/15/2016 Acne Vulgaris: Grade III Inflammatory and Comedo nal 12/07/2012 09/15/2016 Other seborrheic dermatitis 12/07/201209/05 Seborrhea 12/07/2012 09/15/2016 Eczematous dermatitis 12/07/2012 09/15/2016 Xerosis cutis 12/07/2012 09/15/2016 Tendonitis 03/09/2012 09/15/2016 Closed fracture of metatarsal bone(s) 03/02/2012 09/15/2016 Internal hemorrhoids without mention of complica tion 03/02/2011 10/20/2011 Diarrhea 03/02/2011 10/20/2011 Abdominal pain, generalized 03/02/201110/06 Other hammer toe (acquired) 02/08/201110/06 Frequency of urination 06/30/2010 2 Pelvic pain in female 06/30/2010 10/20/2011 Microscopic hematuria 06/30/2010 09/15/2016 documented as of this encounter (statuses as of 12/09/2022) [facility] History of Past illness Narrative* Problem Noted Date Resolved Date Backache, unspecified 01/03/2013 09/15/2016 Acne Vulgaris: Grade III Inflammatory and Comedo nal 12/07/2012 09/15/2016 Other seborrheic dermatitis 12/07/201209/05 Seborrhea 12/07/2012 09/15/2016 Eczematous dermatitis 12/07/2012 09/15/2016 Xerosis cutis 12/07/2012 09/15/2016 Tendonitis 03/09/2012 09/15/2016 Closed fracture of metatarsal bone(s) 03/02/2012 09/15/2016 Internal hemorrhoids without mention of complica tion 03/02/2011 10/20/2011 Diarrhea 03/02/2011 10/20/2011 Abdominal pain, generalized 03/02/201110/06 Other hammer toe (acquired) 02/08/201110/06 Frequency of urination 06/30/2010 2 Pelvic pain in female 06/30/2010 10/20/2011 Microscopic hematuria 06/30/2010 09/15/2016 documented as of this encounter (statuses as of 12/10/2022) [facility] History of Past illness Narrative* Problem Noted Date Resolved Date Backache, unspecified 01/03/2013 09/15/2016 Acne Vulgaris: Grade III Inflammatory and Comedo nal 12/07/2012 09/15/2016 Other seborrheic dermatitis 12/07/201209/05 Seborrhea 12/07/2012 09/15/2016 Eczematous dermatitis 12/07/2012 09/15/2016 Xerosis cutis 12/07/2012 09/15/2016 Tendonitis 03/09/2012 09/15/2016 Closed fracture of metatarsal bone(s) 03/02/2012 09/15/2016 Internal hemorrhoids without mention of complica tion 03/02/2011 10/20/2011 Diarrhea 03/02/2011 10/20/2011 Abdominal pain, generalized 03/02/201110/06 Other hammer toe (acquired) 02/08/201110/06 Frequency of urination 06/30/2010 2 Pelvic pain in female 06/30/2010 10/20/2011 Microscopic hematuria 06/30/2010 09/15/2016 documented as of this encounter (statuses as of 12/13/2022) [facility] History of Past illness Narrative* Problem Noted Date Resolved Date Backache, unspecified 01/03/2013 09/15/2016 Acne Vulgaris: Grade III Inflammatory and Comedo nal 12/07/2012 09/15/2016 Other seborrheic dermatitis 12/07/201209/05 Seborrhea 12/07/2012 09/15/2016 Eczematous dermatitis 12/07/2012 09/15/2016 Xerosis cutis 12/07/2012 09/15/2016 Tendonitis 03/09/2012 09/15/2016 Closed fracture of metatarsal bone(s) 03/02/2012 09/15/2016 Internal hemorrhoids without mention of complica tion 03/02/2011 10/20/2011 Diarrhea 03/02/2011 10/20/2011 Abdominal pain, generalized 03/02/201110/06 Other hammer toe (acquired) 02/08/201110/06 Frequency of urination 06/30/2010 2 Pelvic pain in female 06/30/2010 10/20/2011 Microscopic hematuria 06/30/2010 09/15/2016 documented as of this encounter (statuses as of 12/28/2022) [facility] History of Past illness Narrative* Problem Noted Date Resolved Date Backache, unspecified 01/03/2013 09/15/2016 Acne Vulgaris: Grade III Inflammatory and Comedo nal 12/07/2012 09/15/2016 Other seborrheic dermatitis 12/07/201209/05 Seborrhea 12/07/2012 09/15/2016 Eczematous dermatitis 12/07/2012 09/15/2016 Xerosis cutis 12/07/2012 09/15/2016 Tendonitis 03/09/2012 09/15/2016 Closed fracture of metatarsal bone(s) 03/02/2012 09/15/2016 Internal hemorrhoids without mention of complica tion 03/02/2011 10/20/2011 Diarrhea 03/02/2011 10/20/2011 Abdominal pain, generalized 03/02/201110/06 Other hammer toe (acquired) 02/08/201110/06 Frequency of urination 06/30/2010 2 Pelvic pain in female 06/30/2010 10/20/2011 Microscopic hematuria 06/30/2010 09/15/2016 documented as of this encounter (statuses as of 12/29/2022) [facility] History of Past illness Narrative* Problem Noted Date Resolved Date Backache, unspecified 01/03/2013 09/15/2016 Acne Vulgaris: Grade III Inflammatory and Comedo nal 12/07/2012 09/15/2016 Other seborrheic dermatitis 12/07/201209/05 Seborrhea 12/07/2012 09/15/2016 Eczematous dermatitis 12/07/2012 09/15/2016 Xerosis cutis 12/07/2012 09/15/2016 Tendonitis 03/09/2012 09/15/2016 Closed fracture of metatarsal bone(s) 03/02/2012 09/15/2016 Internal hemorrhoids without mention of complica tion 03/02/2011 10/20/2011 Diarrhea 03/02/2011 10/20/2011 Abdominal pain, generalized 03/02/201110/06 Other hammer toe (acquired) 02/08/201110/06 Frequency of urination 06/30/2010 2 Pelvic pain in female 06/30/2010 10/20/2011 Microscopic hematuria 06/30/2010 09/15/2016 documented as of this encounter (statuses as of 12/30/2022) [facility] History of Past illness Narrative* Problem Noted Date Resolved Date Backache, unspecified 01/03/2013 09/15/2016 Acne Vulgaris: Grade III Inflammatory and Comedo nal 12/07/2012 09/15/2016 Other seborrheic dermatitis 12/07/201209/05 Seborrhea 12/07/2012 09/15/2016 Eczematous dermatitis 12/07/2012 09/15/2016 Xerosis cutis 12/07/2012 09/15/2016 Tendonitis 03/09/2012 09/15/2016 Closed fracture of metatarsal bone(s) 03/02/2012 09/15/2016 Internal hemorrhoids without mention of complica tion 03/02/2011 10/20/2011 Diarrhea 03/02/2011 10/20/2011 Abdominal pain, generalized 03/02/201110/06 Other hammer toe (acquired) 02/08/201110/06 Frequency of urination 06/30/2010 2 Pelvic pain in female 06/30/2010 10/20/2011 Microscopic hematuria 06/30/2010 09/15/2016 documented as of this encounter (statuses as of 12/30/2022) [facility] History of Past illness Narrative* Problem Noted Date Resolved Date Backache, unspecified 01/03/2013 09/15/2016 Acne Vulgaris: Grade III Inflammatory and Comedo nal 12/07/2012 09/15/2016 Other seborrheic dermatitis 12/07/201209/05 Seborrhea 12/07/2012 09/15/2016 Eczematous dermatitis 12/07/2012 09/15/2016 Xerosis cutis 12/07/2012 09/15/2016 Tendonitis 03/09/2012 09/15/2016 Closed fracture of metatarsal bone(s) 03/02/2012 09/15/2016 Internal hemorrhoids without mention of complica tion 03/02/2011 10/20/2011 Diarrhea 03/02/2011 10/20/2011 Abdominal pain, generalized 03/02/201110/06 Other hammer toe (acquired) 02/08/201110/06 Frequency of urination 06/30/2010 2 Pelvic pain in female 06/30/2010 10/20/2011 Microscopic hematuria 06/30/2010 09/15/2016 documented as of this encounter (statuses as of 01/06/2023) [facility] History of Past illness Narrative* Problem Noted Date Resolved Date Backache, unspecified 01/03/2013 09/15/2016 Acne Vulgaris: Grade III Inflammatory and Comedo nal 12/07/2012 09/15/2016 Other seborrheic dermatitis 12/07/201209/05 Seborrhea 12/07/2012 09/15/2016 Eczematous dermatitis 12/07/2012 09/15/2016 Xerosis cutis 12/07/2012 09/15/2016 Tendonitis 03/09/2012 09/15/2016 Closed fracture of metatarsal bone(s) 03/02/2012 09/15/2016 Internal hemorrhoids without mention of complica tion 03/02/2011 10/20/2011 Diarrhea 03/02/2011 10/20/2011 Abdominal pain, generalized 03/02/201110/06 Other hammer toe (acquired) 02/08/201110/06 Frequency of urination 06/30/2010 2 Pelvic pain in female 06/30/2010 10/20/2011 Microscopic hematuria 06/30/2010 09/15/2016 documented as of this encounter (statuses as of 01/15/2023) [facility] History of Past illness Narrative* Problem Noted Date Resolved Date Backache, unspecified 01/03/2013 09/15/2016 Acne Vulgaris: Grade III Inflammatory and Comedo nal 12/07/2012 09/15/2016 Other seborrheic dermatitis 12/07/201209/05 Seborrhea 12/07/2012 09/15/2016 Eczematous dermatitis 12/07/2012 09/15/2016 Xerosis cutis 12/07/2012 09/15/2016 Tendonitis 03/09/2012 09/15/2016 Closed fracture of metatarsal bone(s) 03/02/2012 09/15/2016 Internal hemorrhoids without mention of complica tion 03/02/2011 10/20/2011 Diarrhea 03/02/2011 10/20/2011 Abdominal pain, generalized 03/02/201110/06 Other hammer toe (acquired) 02/08/201110/06 Frequency of urination 06/30/2010 2 Pelvic pain in female 06/30/2010 10/20/2011 Microscopic hematuria 06/30/2010 09/15/2016 documented as of this encounter (statuses as of 01/18/2023) [facility] History of Past illness Narrative* Problem Noted Date Resolved Date Backache, unspecified 01/03/2013 09/15/2016 Acne Vulgaris: Grade III Inflammatory and Comedo nal 12/07/2012 09/15/2016 Other seborrheic dermatitis 12/07/201209/05 Seborrhea 12/07/2012 09/15/2016 Eczematous dermatitis 12/07/2012 09/15/2016 Xerosis cutis 12/07/2012 09/15/2016 Tendonitis 03/09/2012 09/15/2016 Closed fracture of metatarsal bone(s) 03/02/2012 09/15/2016 Internal hemorrhoids without mention of complica tion 03/02/2011 10/20/2011 Diarrhea 03/02/2011 10/20/2011 Abdominal pain, generalized 03/02/201110/06 Other hammer toe (acquired) 02/08/201110/06 Frequency of urination 06/30/2010 2 Pelvic pain in female 06/30/2010 10/20/2011 Microscopic hematuria 06/30/2010 09/15/2016 documented as of this encounter (statuses as of 02/03/2023) [facility] History of Past illness Narrative* Problem Noted Date Resolved Date Backache, unspecified 01/03/2013 09/15/2016 Acne Vulgaris: Grade III Inflammatory and Comedo nal 12/07/2012 09/15/2016 Other seborrheic dermatitis 12/07/201209/05 Seborrhea 12/07/2012 09/15/2016 Eczematous dermatitis 12/07/2012 09/15/2016 Xerosis cutis 12/07/2012 09/15/2016 Tendonitis 03/09/2012 09/15/2016 Closed fracture of metatarsal bone(s) 03/02/2012 09/15/2016 Internal hemorrhoids without mention of complica tion 03/02/2011 10/20/2011 Diarrhea 03/02/2011 10/20/2011 Abdominal pain, generalized 03/02/201110/06 Other hammer toe (acquired) 02/08/201110/06 Frequency of urination 06/30/2010 2 Pelvic pain in female 06/30/2010 10/20/2011 Microscopic hematuria 06/30/2010 09/15/2016 documented as of this encounter (statuses as of 02/09/2023) [facility] History of Past illness Narrative* Problem Noted Date Resolved Date Backache, unspecified 01/03/2013 09/15/2016 Acne Vulgaris: Grade III Inflammatory and Comedo nal 12/07/2012 09/15/2016 Other seborrheic dermatitis 12/07/201209/05 Seborrhea 12/07/2012 09/15/2016 Eczematous dermatitis 12/07/2012 09/15/2016 Xerosis cutis 12/07/2012 09/15/2016 Tendonitis 03/09/2012 09/15/2016 Closed fracture of metatarsal bone(s) 03/02/2012 09/15/2016 Internal hemorrhoids without mention of complica tion 03/02/2011 10/20/2011 Diarrhea 03/02/2011 10/20/2011 Abdominal pain, generalized 03/02/201110/06 Other hammer toe (acquired) 02/08/201110/06 Frequency of urination 06/30/2010 2 Pelvic pain in female 06/30/2010 10/20/2011 Microscopic hematuria 06/30/2010 09/15/2016 documented as of this encounter (statuses as of 02/22/2023) [facility] History of Past illness Narrative* Problem Noted Date Resolved Date Backache, unspecified 01/03/2013 09/15/2016 Acne Vulgaris: Grade III Inflammatory and Comedo nal 12/07/2012 09/15/2016 Other seborrheic dermatitis 12/07/201209/05 Seborrhea 12/07/2012 09/15/2016 Eczematous dermatitis 12/07/2012 09/15/2016 Xerosis cutis 12/07/2012 09/15/2016 Tendonitis 03/09/2012 09/15/2016 Closed fracture of metatarsal bone(s) 03/02/2012 09/15/2016 Internal hemorrhoids without mention of complica tion 03/02/2011 10/20/2011 Diarrhea 03/02/2011 10/20/2011 Abdominal pain, generalized 03/02/201110/06 Other hammer toe (acquired) 02/08/201110/06 Frequency of urination 06/30/2010 2 Pelvic pain in female 06/30/2010 10/20/2011 Microscopic hematuria 06/30/2010 09/15/2016 documented as of this encounter (statuses as of 03/01/2023) [facility] History of Past illness Narrative* Problem Noted Date Resolved Date Backache, unspecified 01/03/2013 09/15/2016 Acne Vulgaris: Grade III Inflammatory and Comedo nal 12/07/2012 09/15/2016 Other seborrheic dermatitis 12/07/201209/05 Seborrhea 12/07/2012 09/15/2016 Eczematous dermatitis 12/07/2012 09/15/2016 Xerosis cutis 12/07/2012 09/15/2016 Tendonitis 03/09/2012 09/15/2016 Closed fracture of metatarsal bone(s) 03/02/2012 09/15/2016 Internal hemorrhoids without mention of complica tion 03/02/2011 10/20/2011 Diarrhea 03/02/2011 10/20/2011 Abdominal pain, generalized 03/02/201110/06 Other hammer toe (acquired) 02/08/201110/06 Frequency of urination 06/30/2010 2 Pelvic pain in female 06/30/2010 10/20/2011 Microscopic hematuria 06/30/2010 09/15/2016 documented as of this encounter (statuses as of 03/06/2023) [facility] History of Past illness Narrative* Problem Noted Date Diagnosed Date Resolved Date Backache, unspecified 01/03/20132016 Acne Vulgaris: Grade III Inf lammatory and Comedonal 12/07/2012 09/15/2016 Other seborrheic dermatitis 12/07/2012 09/15/2016 Seborrhea 12/07/2012 09/15/2016 Eczematous dermatitis 12/07/20122016 Xerosis cutis 12/07/2012 09/15/2016 Tendonitis 03/09/2012 09/15/2016 Closed fracture of metatarsal bone(s) 03/02/2012 09/15/2016 Internal hemorrhoids without mention of complication 03/02/2011 10/20/2011 Diarrhea 03/02/2011 10/20/2011 Abdominal pain, generalized 03/02/2011 10/20/2011 Other hammer toe (acquired) 02/08/2011 10/20/2011 Frequency of urination 06/30/201010/20 Pelvic pain in female 06/30/20102011 Microscopic hematuria 06/30/20102016 documented as of this encounter (statuses as of 03/15/2023) [facility] History of Past illness Narrative* Problem Noted Date Diagnosed Date Resolved Date Backache, unspecified 01/03/20132016 Acne Vulgaris: Grade III Inf lammatory and Comedonal 12/07/2012 09/15/2016 Other seborrheic dermatitis 12/07/2012 09/15/2016 Seborrhea 12/07/2012 09/15/2016 Eczematous dermatitis 12/07/20122016 Xerosis cutis 12/07/2012 09/15/2016 Tendonitis 03/09/2012 09/15/2016 Closed fracture of metatarsal bone(s) 03/02/2012 09/15/2016 Internal hemorrhoids without mention of complication 03/02/2011 10/20/2011 Diarrhea 03/02/2011 10/20/2011 Abdominal pain, generalized 03/02/2011 10/20/2011 Other hammer toe (acquired) 02/08/2011 10/20/2011 Frequency of urination 06/30/201010/20 Pelvic pain in female 06/30/20102011 Microscopic hematuria 06/30/20102016 documented as of this encounter (statuses as of 05/01/2023) [facility] History of Past illness Narrative* Problem Noted Date Diagnosed Date Resolved Date Backache, unspecified 01/03/20132016 Acne Vulgaris: Grade III Inf lammatory and Comedonal 12/07/2012 09/15/2016 Other seborrheic dermatitis 12/07/2012 09/15/2016 Seborrhea 12/07/2012 09/15/2016 Eczematous dermatitis 12/07/20122016 Xerosis cutis 12/07/2012 09/15/2016 Tendonitis 03/09/2012 09/15/2016 Closed fracture of metatarsal bone(s) 03/02/2012 09/15/2016 Internal hemorrhoids without mention of complication 03/02/2011 10/20/2011 Diarrhea 03/02/2011 10/20/2011 Abdominal pain, generalized 03/02/2011 10/20/2011 Other hammer toe (acquired) 02/08/2011 10/20/2011 Frequency of urination 06/30/201010/20 Pelvic pain in female 06/30/20102011 Microscopic hematuria 06/30/20102016 documented as of this encounter (statuses as of 05/03/2023) [facility] History of Past illness Narrative* Problem Noted Date Diagnosed Date Resolved Date Backache, unspecified 01/03/20132016 Acne Vulgaris: Grade III Inf lammatory and Comedonal 12/07/2012 09/15/2016 Other seborrheic dermatitis 12/07/2012 09/15/2016 Seborrhea 12/07/2012 09/15/2016 Eczematous dermatitis 12/07/20122016 Xerosis cutis 12/07/2012 09/15/2016 Tendonitis 03/09/2012 09/15/2016 Closed fracture of metatarsal bone(s) 03/02/2012 09/15/2016 Internal hemorrhoids without mention of complication 03/02/2011 10/20/2011 Diarrhea 03/02/2011 10/20/2011 Abdominal pain, generalized 03/02/2011 10/20/2011 Other hammer toe (acquired) 02/08/2011 10/20/2011 Frequency of urination 06/30/201010/20 Pelvic pain in female 06/30/20102011 Microscopic hematuria 06/30/20102016 documented as of this encounter (statuses as of 06/17/2023) [facility] History of Past illness Narrative* Problem Noted Date Diagnosed Date Resolved Date Backache, unspecified 01/03/20132016 Acne Vulgaris: Grade III Inf lammatory and Comedonal 12/07/2012 09/15/2016 Other seborrheic dermatitis 12/07/2012 09/15/2016 Seborrhea 12/07/2012 09/15/2016 Eczematous dermatitis 12/07/20122016 Xerosis cutis 12/07/2012 09/15/2016 Tendonitis 03/09/2012 09/15/2016 Closed fracture of metatarsal bone(s) 03/02/2012 09/15/2016 Internal hemorrhoids without mention of complication 03/02/2011 10/20/2011 Diarrhea 03/02/2011 10/20/2011 Abdominal pain, generalized 03/02/2011 10/20/2011 Other hammer toe (acquired) 02/08/2011 10/20/2011 Frequency of urination 06/30/201010/20 Pelvic pain in female 06/30/20102011 Microscopic hematuria 06/30/20102016 documented as of this encounter (statuses as of 07/13/2023) [facility] History of Past illness Narrative* Problem Noted Date Diagnosed Date Resolved Date Backache, unspecified 01/03/20132016 Acne Vulgaris: Grade III Inf lammatory and Comedonal 12/07/2012 09/15/2016 Other seborrheic dermatitis 12/07/2012 09/15/2016 Seborrhea 12/07/2012 09/15/2016 Eczematous dermatitis 12/07/20122016 Xerosis cutis 12/07/2012 09/15/2016 Tendonitis 03/09/2012 09/15/2016 Closed fracture of metatarsal bone(s) 03/02/2012 09/15/2016 Internal hemorrhoids without mention of complication 03/02/2011 10/20/2011 Diarrhea 03/02/2011 10/20/2011 Abdominal pain, generalized 03/02/2011 10/20/2011 Other hammer toe (acquired) 02/08/2011 10/20/2011 Frequency of urination 06/30/201010/20 Pelvic pain in female 06/30/20102011 Microscopic hematuria 06/30/20102016 documented as of this encounter (statuses as of 07/13/2023) [facility] note* Diagnosis Encounter for gynecological examination (general) (routine) without abnormal findings- Primary Encounter for screening mammogram for malignant neoplasm of breast Other screening mammogram Screen for STD (sexually transmitted disease) Screening examination for venereal disease [facility] Diagnosis Lightheaded- Primary Dizziness and giddiness [facility] Diagnosis Right leg pain- Primary Pain in limb Right arm pain Pain in limb [facility] Diagnosis Lightheaded- Primary Dizziness and giddiness [facility] Diagnosis Contact dermatitis, unspecified contact dermatitis type, unspecified trigger- Primary [facility] Diagnosis URI, acute- Primary Acute upper respiratory infections of unspecified site Rhus dermatitis Contact dermatitis and other eczema due to plants (except food) Chronic pain of right lower extremity [facility] Diagnosis Right leg pain- Primary Pain in limb [facility] Diagnosis Headache, unspecified headache type- Primary Cervicalgia [facility] Diagnosis Encounter for management and injection of depo-Provera- Primary Surveillance of other previously prescribed contraceptive method [facility]* Diagnosis Elevated blood pressure reading without diagnosis of hypertension- Primary Right leg pain Pain in limb Bipolar disorder, in partial remission, most recent episode depressed (HCC) Bipolar I disorder, most recent episode (or current) depressed, in partial or unspecified remission Hyperlipidemia, unspecified hyperlipidemia type [facility] Diagnosis Fatigue, unspecified type- Primary Diarrhea, unspecified type Tremor of right hand [facility] Diagnosis Vitamin D deficiency Unspecified vitamin D deficiency Essential tremor Essential and other specified forms of tremor [facility] Diagnosis Vitamin D deficiency Unspecified vitamin D deficiency Essential tremor Essential and other specified forms of tremor [facility] Diagnosis Sore throat- Primary Acute pharyngitis Viral syndrome Unspecified viral infection, in conditions classified elsewhere and of unspecified site [facility] Diagnosis Insect bite of lower extremity, unspecified laterality, initial encounter- Primary [facility] Diagnosis Encounter for management and injection of depo-Provera- Primary Surveillance of other previously prescribed contraceptive method [facility]* Diagnosis Right leg pain- Primary Pain in limb [facility]* Diagnosis Rash- Primary Rash and other nonspecific skin eruption [facility]* Diagnosis Onychomycosis- Primary Dermatophytosis of nail Pain in toe of left foot Pain in limb Pain in toe of right foot Pain in limb Hyperkeratosis Acquired keratoderma Tinea pedis of both feet Diminished pulses in lower extremity Other symptoms involving cardiovascular system Plantar fasciitis Plantar fascial fibromatosis [facility]* Diagnosis Hospital discharge follow-up- Primary Other follow-up examination Encounter for smoking cessation counseling Counseling on substance use and abuse Neck pain Cervicalgia Essential tremor Essential and other specified forms of tremor Headache, unspecified headache type [facility] Diagnosis Herpes simplex vulvovaginitis- Primary Vulvar pain Unspecified symptom associated with female genital organs Screening examination for STD (sexually transmitted disease) Screening examination for venereal disease Vaginal discharge Leukorrhea, not specified as infective [facility] Diagnosis Chronic obstructive pulmonary disease, unspecified COPD type (HCC) [facility] Diagnosis Pain- Primary Generalized pain [facility] Diagnosis Right leg pain- Primary Pain in limb [facility] Diagnosis CHARLES (obstructive sleep apnea)- Primary Obstructive sleep apnea (adult) (pediatric) [facility] Diagnosis Dental infection- Primary Acute apical periodontitis of pulpal origin [facility] Diagnosis Gastroesophageal reflux disease with esophagitis without hemorrhage- Primary Nausea and vomiting, unspecified vomiting type [facility] Diagnosis Unspecified condition of the tongue- Primary [facility] Diagnosis Hospital discharge follow-up- Primary Other follow-up examination Viral gastroenteritis Intestinal infection due to other organism, not elsewhere classified Tooth decay Unspecified dental caries Daytime sleepiness [facility] Diagnosis Sore throat- Primary Acute pharyngitis Fatigue, unspecified type [facility] Diagnosis Right leg pain- Primary Pain in limb [facility] Diagnosis COPD, mild (HCC) Chronic airway obstruction, not elsewhere classified [facility] Diagnosis Vitamin D deficiency Unspecified vitamin D deficiency [facility] Diagnosis Fatigue, unspecified type- Primary Current mild episode of major depressive disorder, unspecified whether recurrent (HCC) documented in this encounter [facility] note* Diagnosis Urinary frequency- Primary [facility] Diagnosis Urinary frequency- Primary Viral URI Acute upper respiratory infections of unspecified site [facility]* Diagnosis Gastroesophageal reflux disease, unspecified whether esophagitis present- Primary [facility] Diagnosis Vaginal itching- Primary Pruritus of genital organs Vaginal discharge Leukorrhea, not specified as infective documented in this encounter [facility] note* Diagnosis URI, acute- Primary Acute upper respiratory infections of unspecified site [facility] Diagnosis Frequency of urination- Primary Urinary frequency Yeast infection Candidiasis of unspecified site Smoker Tobacco use disorder [facility] Diagnosis Other chronic pain [facility]* Diagnosis Headaches- Primary [facility] Diagnosis Pain in left foot- Primary Pain in limb [facility]* Diagnosis Viral illness- Primary Unspecified viral infection, in conditions classified elsewhere and of unspecified site Chronic midline low back pain without sciatica Fatigue, unspecified type documented in this encounter [facility] note* Diagnosis Essential tremor Essential and other specified forms of tremor documented in this encounter [facility] note* Diagnosis Encounter for surveillance of other contraceptive- Primary Vaginal irritation Unspecified noninflammatory disorder of vagina [facility] Diagnosis Hospital discharge follow-up- Primary Other follow-up examination Tooth decay Unspecified dental caries Dental abscess Periapical abscess without sinus [facility] Diagnosis Acute pain of left shoulder- Primary Hospital discharge follow-up- Primary Other follow-up examination Viral URI Acute upper respiratory infections of unspecified site [facility] Diagnosis Chronic obstructive pulmonary disease, unspecified COPD type ([facility] Hospital discharge follow-up- Primary Other follow-up examination Viral URI Acute upper respiratory infections of unspecified site [facility] Diagnosis Viral URI- Primary Acute upper respiratory infections of unspecified site [facility] Diagnosis Viral URI with cough- Primary Acute upper respiratory infections of unspecified site Sore throat Acute pharyngitis Eczema, unspecified type [facility] Diagnosis Pelvic cramping- Primary Unspecified symptom associated with female genital organs Breakthrough bleeding on depo provera Metrorrhagia documented in this encounter [facility] note* Diagnosis Right leg pain- Primary Pain in limb Near syncope Syncope and collapse documented in this encounter [facility] note* Diagnosis Pain in toe of right foot- Primary Pain in limb documented in this encounter [facility] note* Diagnosis Tremor- Primary Abnormal involuntary movements Tongue pain Glossodynia Acute otitis media, left Unspecified otitis media URI, acute Acute upper respiratory infections of unspecified site documented in this encounter [facility] note* Diagnosis Dysuria- Primary documented in this encounter [facility] note* Diagnosis Tremor- Primary Abnormal involuntary movements documented in this encounter [facility] note* Diagnosis Encounter for screening mammogram for breast cancer documented in this encounter [facility] note* Diagnosis Eczema, unspecified type- Primary Fatigue, unspecified type Altered taste Disturbances of sensation of smell and taste documented in this encounter [facility] note* Diagnosis Fatigue, unspecified type documented in this encounter [facility] note* Diagnosis Fatigue, unspecified type- Primary Viral illness Unspecified viral infection, in conditions classified elsewhere and of unspecified site documented in this encounter [facility] note* Diagnosis Encounter for surveillance of other contraceptive- Primary documented in this encounter [facility] note* Diagnosis Nausea- Primary Nausea alone documented in this encounter [facility] note* Diagnosis Acute cough- Primary URI, acute Acute upper respiratory infections of unspecified site documented in this encounter [facility] note* Diagnosis Pain, dental- Primary Unspecified disorder of the teeth and supporting structures Blister (nonthermal) of left middle finger, initial encounter documented in this encounter [facility] note* Diagnosis Fatigue, unspecified type documented in this encounter [facility] note* Diagnosis Vitamin D deficiency Unspecified vitamin D deficiency documented in this encounter [facility] note* Diagnosis Calculus of gallbladder with acute cholecystitis without obstruction- Primary documented in this encounter [facility] note* Diagnosis Screening breast examination Other screening breast examination Encounter for screening mammogram for breast cancer documented in this encounter [facility] note* Diagnosis Calculus of gallbladder with acute cholecystitis without obstruction- Primary Cholecystitis- Primary Cholecystitis, unspecified Calculus of gallbladder with acute cholecystitis without obstruction documented in this encounter [facility] note* Diagnosis Calculus of gallbladder with acute cholecystitis without obstruction- Primary Calculus of gallbladder with acute cholecystitis without obstruction- Primary Calculus of gallbladder with acute cholecystitis without obstruction documented in this encounter [facility] for referral (narrative)* Diagnostic Procedure Only (Routine) - Pending Review Specialty Diagnoses / Procedures Referred By Rod Referred To Contact [facility] Diagnoses Encounter for screening mammogram for malignant neoplasm of breast Procedures MARGUERITE SCREENING W MAYO SCREENING DIGITAL BREAST TOMOSYNTHESIS BI SCREENING MAMMOGRAPHY BI 2-VIEW BREAST INC CAD Kaleigh Abbasi MD [address] [place] [address] [facility] [address] [place] [address] Referral ID Status Reason Start Date Expiration Date Visits Requested Visits Authorized [id number] Pending Review Auto-Generat ed Referral 12/01/2021 12/31/2022 1 1 [facility] for referral (narrative)* Outpatient Procedure (Routine) - Closed Specialty Diagnoses / Procedures [facility] Diagnoses Lightheaded Procedures ECG COMPLETE ECG ROUTINE ECG W/LEAST 12 LDS W/I&R Prabha Springer APRN.CNP [address] [place] [address] [facility] [address] [place] [address] Referral ID Status Reason Start Date Expiration Date V isits Requested Visits Authorized [id number] Closed Auto-Generate d Referral 12/16/2021 12/16/2022 1 1 T [facility] for referral (narrative)* Diagnostic Procedure Only (Routine) - Closed Specialty Diagnoses / Procedures [facility] Referred To Contact XR IMAGING Diagnoses Right leg pain Procedures XR TIBIA FIBULA 2V AP/LAT RIGHT RADIOLOGIC EXAMINATION TIBIA & FIBULA 2 VIEWS Win Mejia MD [address] [place] [address] Xr Imaging Referral ID Status Reason Start Date Expiration Date V isits Requested Visits Authorized [id number] Closed Auto-Generate d Referral 02/08/2022 03/10/2023 1 1 [facility] for referral (narrative)* Diagnostic Procedure Only (Routine) - Pending Review Specialty Diagnoses / Procedures Referred By Contac t Referred To Contact XR IMAGING Diagnoses Plantar fasciitis Procedures XR FOOT GENERAL 3V AP/LAT/OBL BILATERAL RADEX FOOT COMPLETE MINIMUM 3 VIEWS [address] [place] [place] [address] Xr Imaging Referral ID Status Reason Start Date Expiration Date Visits Requested Visits Authorized [id number] Pending Review Auto-Generat ed Referral 05/17/2022 06/16/2023 1 1 * Outpatient Procedure (Routine) - Pending Review Specialty Diagnoses / Procedures Referred By Robertac t Referred To Contact [facility] Diagnoses Onychomycosis Diminished pulses in lower extremity Procedures PVR ANK PRESS JUAQUIN VAS [facility] NON-INVAS PHYSIOLOGIC STD EXTREMITY ART 2 LEVEL [address] [place] [address] [facility] [place] [address] [place] [address] Referral ID Status Reason Start Date Expiration Date Visits Requested Visits Authorized [id number] Pending Review Auto-Generat ed Referral 05/17/2022 05/17/2023 1 1 * Medication Prior Authorization - Closed Specialty Diagnoses / Procedures Referred By Rod t Referred To Contact Yogi [address]os [address] [place] [address] Referral ID Status Reason Start Date Expiration Date Visits Re quested Visits Authorized [id number] Closed 1 1 [facility] for referral (narrative)* Diagnostic Procedure Only (Routine) - Closed Specialty Diagnoses / Procedures Referred By Contac t Referred To Contact XR IMAGING Diagnoses Neck pain Procedures XR CERV OTHER 4V AP/LAT/OBL RADEX SPINE CERVICAL 4 OR 5 VIEWS Prabha Springer APRN.PARK MAINTAINER [address] [place] [address] Xr Imaging Referral ID Status Reason Start Date Expiration Date V isits Requested Visits Authorized [id number] Closed Auto-Generate d Referral 05/21/2022 06/20/2023 1 1 [facility] for referral (narrative)* Diagnostic Procedure Only (Urgent) - Closed Specialty Diagnoses / Procedures Referred By Contac t Referred To Contact XR IMAGING Diagnoses Pain Procedures XR FOREARM GENERAL 2V AP/LAT RIGHT RADEX FOREARM 2 VIEWS Yeni Hameed APRN.PARK MAINTAINER [address] [place] [id number] Xr Imaging Referral ID Status Reason Start Date Expiration Date V isits Requested Visits Authorized [id number] Closed Auto-Generate d Referral 06/12/2022 07/12/2023 1 1 * Diagnostic Procedure Only (Urgent) - Closed Specialty Diagnoses / Procedures Referred By Contac t Referred To Contact XR IMAGING Diagnoses Pain Procedures XR LUMBAR LIMITED 2V AP/LAT RADEX SPINE LUMBOSACRAL 2/3 VIEWS Yeni Hameed APRN.PARK MAINTAINER [address] [place] [address] Xr Imaging Referral ID Status Reason Start Date Expiration Date V isits Requested Visits Authorized [id number] Closed Auto-Generate d Referral 06/12/2022 07/12/2023 1 1 * Diagnostic Procedure Only (Urgent) - Closed Specialty Diagnoses / Procedures Referred By Contac t Referred To Contact XR IMAGING Diagnoses Pain Procedures XR HUMERUS 2V AP/LAT RIGHT RADEX HUMERUS MINIMUM 2 VIEWS Yeni Hameed APRN.CNP [address] [place] [address] Xr Imaging Referral ID Status Reason Start Date Expiration Date V isits Requested Visits Authorized [id number] Closed Auto-Generate d Referral 06/12/2022 07/12/2023 1 1 [facility] for referral (narrative)* Diagnostic Procedure Only (Routine) - Pending Review Specialty Diagnoses / Procedures Referred By Contac t Referred To Contact XR IMAGING Diagnoses Pain in left foot Procedures XR FOOT GENERAL 3V AP/LAT/OBL LEFT RADEX FOOT COMPLETE MINIMUM 3 VIEWS Yogi Amos [address] [place] [address] Xr Imaging Referral ID Status Reason Start Date Expiration Date Visits Requested Visits Authorized [id number] Pending Review Auto-Generat ed Referral 09/13/2022 10/13/2023 1 1 [facility] for referral (narrative)* Diagnostic Procedure Only (Routine) - Pending Review Specialty Diagnoses / Procedures Referred By Contac t Referred To Contact [facility] Diagnoses Pelvic cramping Breakthrough bleeding on depo provera Procedures PELVIC US WHI US PELVIC NONOBSTETRIC REAL-TIME IMAGE COMPLETE Tete Romero APRN.CNP [address] [place] [address] [facility] [address] [place] [address] Referral ID Status Reason Start Date Expiration Date Visits Requested Visits Authorized [id number] Pending Review Auto-Generat ed Referral 11/15/2022 11/15/2023 1 1 [facility] for referral (narrative)* Diagnostic Procedure Only (Routine) - Pending Review Specialty Diagnoses / Procedures Referred By Contac t Referred To Contact XR IMAGING Diagnoses Pain in toe of right foot Procedures XR FOOT GENERAL 3V AP/LAT/OBL RIGHT RADEX FOOT COMPLETE MINIMUM 3 VIEWS Yogi Amos [address] [place] [address] Xr Imaging Referral ID Status Reason Start Date Expiration Date Visits Requested Visits Authorized [id number] Pending Review Auto-Generat ed Referral 11/17/2022 12/17/2023 1 1 [facility] Diagnostic Procedure Only (Routine) - Pending Review Specialty Diagnoses / Procedures Referred By Rod vega Referred To Contact [facility] Diagnoses Encounter for screening mammogram for breast cancer Procedures MARGUERITE SCREENING SCREENING MAMMOGRAPHY BI 2-VIEW BREAST INC CAD Win Mejia MD [address] [place] [address] [facility] [address] [place] [address] Referral ID Status Reason Start Date Expiration Date Visits Requested Visits Authorized [id number] Pending Review Auto-Generat ed Referral 12/01/2022 12/31/2023 1 1 [facility] Summary Purpose Family History No Family History Records FoundNo Family History Records FoundNo Family History Records FoundNo Family History Records FoundNo Family History Records FoundNo Family History Records FoundNo Family History Records FoundNo Family History Records FoundNo Family History Records FoundNo Family History Records Found Advance Directives No Advanced Directives Records FoundDocuments on File Type Date Recorded Patient 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 Station Attendant Expl anation Advance Directive(s) 06/02/2020 12:14 PM Advance Directive(s) 05/26/2020 4:15 PM Documents on File Type Date Recorded Patient Transfer Station Attendant Expl anation Advance Directive(s) 06/02/2020 12:14 PM Advance Directive(s) 05/26/2020 4:15 PM Reason for Referral Specialty Diagnoses / Procedures Referred By Rod t Referred To Contact [facility] [place] Diagnoses Right leg pain Procedures CONSULT TO [facility] ([facility]) OFFICE/OUTPATIENT NEW HIGH MDM 60-74 MINUTES Shara Morel, CHACHO.PARK MAINTAINER [address] [place] [address] Referral ID Status Reason Start Date Expiration Date Visits Requested Visits Authorized [id number] Pending Review PCP Requested Referral 01/28/2022 01/28/2023 1 1 Specialty Diagnoses / Procedures Referred By Contac t Referred To Contact Diagnoses Cervicalgia Anastasia Herrera, SECURITY INCIDENT HANDLER.PARK MAINTAINER [address] [place] [address] Referral ID Status Reason Start Date Expiration Date Visits Re quested Visits Authorized [id number] Closed 1 1 Specialty Diagnoses / Procedures Referred By Contac t Referred To Contact [facility] Diagnoses Right leg pain Procedures CONSULT TO PHYSICAL THERAPY PHYSICAL THERAPY EVALUATION HIGH COMPLEX 45 MINS Win Mejia MD [address] [place] [address] [facility] [place] [address] [place] [address] Referral ID Status Reason Start Date Expiration Date Visits Requested Visits Authorized [id number] Pending Review Auto-Generat ed Referral 05/03/2022 05/03/2023 1 1 Specialty Diagnoses / Procedures Referred By Contac t Referred To Contact [facility] Diagnoses Right leg pain Procedures PT REHAB FOLLOW UP ORDER THERAPEUTIC EXERCISES RE, EA 15 MIN. Marco A Garcias, PT [facility] [place] [address] [place] [address] Referral ID Status Reason Start Date Expiration Date Visits Requested Visits Authorized [id number] Pending Review PCP Requested Referral Auto-Generate d Referral 2 09/13/2022 1 1 Specialty Diagnoses / Procedures Referred By Contac t Referred To Contact Gastroenterology Diagnoses Gastroesophageal reflux disease with esophagitis without hemorrhage Nausea and vomiting, unspecified vomiting type Procedures CONSULT TO GASTROENTEROLOGY OFFICE/OUTPATIENT [facility] MDM 60-74 MINUTES Misbah Michel APRN.PARK MAINTAINER [address] [place] [address] Referral ID Status Reason Start Date Expiration Date Visits Requested Visits Authorized [id number] Authorized PCP Requested Referral 2 07/02/2023 1 1 Specialty Diagnoses / Procedures Referred By Contac t Referred To Contact Orthopedics Diagnoses Acute pain of left shoulder Procedures CONSULT TO ORTHOPAEDICS OFFICE/OUTPATIENT [facility] 60-74 MINUTES Ian Ying MD [address] [place] [address] Referral ID Status Reason Start Date Expiration Date Visits Requested Visits Authorized [id number] Authorized PCP Requested Referral 11/08/2022 11/08/2023 1 1 Specialty Diagnoses / Procedures Referred By Contac t Referred To Contact XR IMAGING Diagnoses Acute pain of left shoulder Procedures XR SHOULDER LIMITED 2V AP/TRUE AP LEFT RADEX SHOULDER COMPLETE MINIMUM 2 VIEWS Ian Ying MD [address] [place] [address] Xr Imaging Referral ID Status Reason Start Date Expiration Date V isits Requested Visits Authorized [id number] Closed Auto-Generate d Referral 11/08/2022 12/08/2023 1 1 Referral ID Status Reason Start Date Expiration Date Visits Requested Visits Authorized [id number] Pending Review Auto-Generat ed Referral 11/15/2022 11/15/2023 1 1 Specialty Diagnoses / Procedures Referred By Contac t Referred To Contact Neurology Diagnoses Tremor Procedures CONSULT TO NEUROLOGY Prabha Springer APRN.PARK MAINTAINER [address] [place] [address] Referral ID Status Reason Start Date Expiration Date Visits Requested Visits Authorized [id number] Ref Not Required PCP Requested Referral 11/19/2022 11/18/2023 1 1 Specialty Diagnoses / Procedures Referred By Contac t Referred To Contact General Surgery Diagnoses Calculus of gallbladder with acute cholecystitis without obstruction Juana Villegas PA-C [address] [place] [address] Momo Wright III, DO [address] [address] Referral ID Status Reason Start Date Expiration Date V isits Requested Visits Authorized [id number] Authorized 08/12/2023 08/11/2024 1 1 Medications Administered Section Active Administered Medications - up to 3 most recent administrations Medication Order MAR Action Action Date Dose Rate Site medroxyPROGESTERone 150 mg injection (DEPO-PROVERA) 150 mg, INTRAMUSCULAR, EVERY 12 WEEKS, 4 doses, First dose on Tue08/19/21 at 1030, Last dose on Tue04/28/22 at 1030, Hazardous Potential Reproductive Risk Drug: Use appropriate PPE. Given 02/04/2022 11:00 AM EDT 150 mg Buttocks, Right Inactive Administered Medications - up to 3 most recent administrations Medication Order MAR Action Action Date Dose Rate Site medroxyPROGESTERone 150 mg injection (DEPO-PROVERA) 150 mg, INTRAMUSCULAR, EVERY 12 WEEKS, 4 doses, First dose on Tue08/19/21 at 1030, Last dose on Tue04/28/22 at 1030, Hazardous Potential Reproductive Risk Drug: Use appropriate PPE. Given 04/29/2022 11:12 AM EDT 150 mg Buttocks, Right Active Administered Medications - up to 3 most recent administrations Medication Order MAR Action Action Date Dose Rate Site medroxyPROGESTERone 150 mg injection (DEPO-PROVERA) 150 mg, INTRAMUSCULAR, EVERY 12 WEEKS, 4 doses, First dose on Vicenta 07/22/22 at 1400, Last dose on Vicenta 03/31/23 at 1400, Hazardous Potential Reproductive Risk Drug: Use appropriate PPE. Given 07/22/2022 4:07 PM EST 150 mg Buttocks, Left Active Administered Medications - up to 3 most recent administrations Medication Order MAR Action Action Date Dose Rate Site medroxyPROGESTERone 150 mg injection (DEPO-PROVERA) 150 mg, INTRAMUSCULAR, EVERY 12 WEEKS, 4 doses, First dose on Vicenta 07/22/22 at 1400, Last dose on Vicenta 03/31/23 at 1400, Hazardous Potential Reproductive Risk Drug: Use appropriate PPE. Given 10/14/2022 10:49 AM EST 150 mg Buttocks, Right Active Administered Medications - up to 3 most recent administrations Medication Order MAR Action Action Date Dose Rate Site medroxyPROGESTERone 150 mg injection (DEPO-PROVERA) 150 mg, INTRAMUSCULAR, EVERY 12 WEEKS, 4 doses, First dose on Vicenta 07/22/22 at 1400, Last dose on Vicenta 03/31/23 at 1400, Hazardous Potential Reproductive Risk Drug: Use appropriate PPE. Given 01/06/2023 11:14 AM EDT 150 mg Buttocks, Left Health Concerns Infection Onset Date Last Indicated Resolved Time COVID-19 Rule-Out 04/02/2022 04/02/2022 Infection Onset Date Last Indicated Resolved Time COVID-19 Rule-Out 04/02/2022 04/02/2022 04/03/2022 6:15 AM EDT Infection Onset Date Last Indicated Resolved Time COVID-19 Rule-Out 07/14/2022 07/14/2022 07/15/2022 7:26 AM EST Infection Onset Date Last Indicated Resolved Time COVID-19 Rule-Out 08/05/2022 08/05/2022 08/06/2022 4:19 AM EST Infection Onset Date Last Indicated Resolved Time COVID-19 Rule-Out 09/28/2022 09/28/2022 Infection Onset Date Last Indicated Resolved Time COVID-19 Rule-Out 09/28/2022 09/28/2022 09/29/2022 8:17 AM EST Infection Onset Date Last Indicated Resolved Time COVID-19 Rule-Out 02/09/2023 02/09/2023 Additional Source Comments INFORMATION SOURCE (unrecogn ized section and content) DATE CREATED AUTHOR AUTHOR'S ORGANIZ ATION 04/17/2021 [facility] DATE CREATED AUTHOR AUTHOR'S ORGANIZ ATION 05/18/2023 [facility] DATE CREATED AUTHOR AUTHOR'S ORGANIZ ATION 07/22/2023 [facility] DATE CREATED AUTHOR AUTHOR'S ORGANIZ ATION 08/11/2023 [facility] DATE CREATED AUTHOR AUTHOR'S ORGANIZ ATION 08/24/2023 [facility] DATE CREATED AUTHOR AUTHOR'S ORGANIZ ATION [facility] DATE CREATED AUTHOR AUTHOR'S ORGANIZ ATION 09/07/2023 [facility] DATE CREATED AUTHOR AUTHOR'S ORGANIZ ATION 09/16/2023 [facility] DATE CREATED AUTHOR AUTHOR'S ORGANIZ ATION 10/10/2023 [facility] Source Comments (unrecognize d section and content) In the event this informatio n is protected by the Federal Confidentiality of Alcohol and Drug Abuse Patient Records regulations: The Federal rules restrict any use of the information to criminally investigate or prosecute any alcohol or drug abuse patient.[facility] the event this information is protected by the Federal Confidentiality of Alcohol and Drug Abuse Patient Records regulations: The Federal rules restrict any use of the information to criminally investigate or prosecute any alcohol or drug abuse patient.[facility] the event this information is protected by the Federal Confidentiality of Alcohol and Drug Abuse Patient Records regulations: The Federal rules restrict any use of the information to criminally investigate or prosecute any alcohol or drug abuse patient.[facility] the event this information is protected by the Federal Confidentiality of Alcohol and Drug Abuse Patient Records regulations: The Federal rules restrict any use of the information to criminally investigate or prosecute any alcohol or drug abuse patient.[facility] the event this information is protected by the Federal Confidentiality of Alcohol and Drug Abuse Patient Records regulations: The Federal rules restrict any use of the information to criminally investigate or prosecute any alcohol or drug abuse patient.[facility] the event this information is protected by the Federal Confidentiality of Alcohol and Drug Abuse Patient Records regulations: The Federal rules restrict any use of the information to criminally investigate or prosecute any alcohol or drug abuse patient.[facility] the event this information is protected by the Federal Confidentiality of Alcohol and Drug Abuse Patient Records regulations: The Federal rules restrict any use of the information to criminally investigate or prosecute any alcohol or drug abuse patient.[facility] the event this information is protected by the Federal Confidentiality of Alcohol and Drug Abuse Patient Records regulations: The Federal rules restrict any use of the information to criminally investigate or prosecute any alcohol or drug abuse patient.[facility] the event this information is protected by the Federal Confidentiality of Alcohol and Drug Abuse Patient Records regulations: The Federal rules restrict any use of the information to criminally investigate or prosecute any alcohol or drug abuse patient.[facility] the event this information is protected by the Federal Confidentiality of Alcohol and Drug Abuse Patient Records regulations: The Federal rules restrict any use of the information to criminally investigate or prosecute any alcohol or drug abuse patient.[facility] the event this information is protected by the Federal Confidentiality of Alcohol and Drug Abuse Patient Records regulations: The Federal rules restrict any use of the information to criminally investigate or prosecute any alcohol or drug abuse patient.[facility] CenterIn the event this information is protected by the Federal Confidentiality of Alcohol and Drug Abuse Patient Records regulations: The Federal rules restrict any use of the information to criminally investigate or prosecute any alcohol or drug abuse patient.[facility] CenterIn the event this information is protected by the Federal Confidentiality of Alcohol and Drug Abuse Patient Records regulations: The Federal rules restrict any use of the information to criminally investigate or prosecute any alcohol or drug abuse patient.[facility] CenterIn the event this information is protected by the Federal Confidentiality of Alcohol and Drug Abuse Patient Records regulations: The Federal rules restrict any use of the information to criminally investigate or prosecute any alcohol or drug abuse patient.[facility] CenterIn the event this information is protected by the Federal Confidentiality of Alcohol and Drug Abuse Patient Records regulations: The Federal rules restrict any use of the information to criminally investigate or prosecute any alcohol or drug abuse patient.[facility] CenterIn the event this information is protected by the Federal Confidentiality of Alcohol and Drug Abuse Patient Records regulations: The Federal rules restrict any use of the information to criminally investigate or prosecute any alcohol or drug abuse patient.[facility] CenterIn the event this information is protected by the Federal Confidentiality of Alcohol and Drug Abuse Patient Records regulations: The Federal rules restrict any use of the information to criminally investigate or prosecute any alcohol or drug abuse patient.[facility] CenterIn the event this information is protected by the Federal Confidentiality of Alcohol and Drug Abuse Patient Records regulations: The Federal rules restrict any use of the information to criminally investigate or prosecute any alcohol or drug abuse patient.[facility] CenterIn the event this information is protected by the Federal Confidentiality of Alcohol and Drug Abuse Patient Records regulations: The Federal rules restrict any use of the information to criminally investigate or prosecute any alcohol or drug abuse patient.[facility] CenterIn the event this information is protected by the Federal Confidentiality of Alcohol and Drug Abuse Patient Records regulations: The Federal rules restrict any use of the information to criminally investigate or prosecute any alcohol or drug abuse patient.[facility] CenterIn the event this information is protected by the Federal Confidentiality of Alcohol and Drug Abuse Patient Records regulations: The Federal rules restrict any use of the information to criminally investigate or prosecute any alcohol or drug abuse patient.[facility] CenterIn the event this information is protected by the Federal Confidentiality of Alcohol and Drug Abuse Patient Records regulations: The Federal rules restrict any use of the information to criminally investigate or prosecute any alcohol or drug abuse patient.[facility] CenterIn the event this information is protected by the Federal Confidentiality of Alcohol and Drug Abuse Patient Records regulations: The Federal rules restrict any use of the information to criminally investigate or prosecute any alcohol or drug abuse patient.[facility] CenterIn the event this information is protected by the Federal Confidentiality of Alcohol and Drug Abuse Patient Records regulations: The Federal rules restrict any use of the information to criminally investigate or prosecute any alcohol or drug abuse patient.[facility] CenterIn the event this information is protected by the Federal Confidentiality of Alcohol and Drug Abuse Patient Records regulations: The Federal rules restrict any use of the information to criminally investigate or prosecute any alcohol or drug abuse patient.[facility] CenterIn the event this information is protected by the Federal Confidentiality of Alcohol and Drug Abuse Patient Records regulations: The Federal rules restrict any use of the information to criminally investigate or prosecute any alcohol or drug abuse patient.[facility] CenterIn the event this information is protected by the Federal Confidentiality of Alcohol and Drug Abuse Patient Records regulations: The Federal rules restrict any use of the information to criminally investigate or prosecute any alcohol or drug abuse patient.[facility] CenterIn the event this information is protected by the Federal Confidentiality of Alcohol and Drug Abuse Patient Records regulations: The Federal rules restrict any use of the information to criminally investigate or prosecute any alcohol or drug abuse patient.[facility] CenterIn the event this information is protected by the Federal Confidentiality of Alcohol and Drug Abuse Patient Records regulations: The Federal rules restrict any use of the information to criminally investigate or prosecute any alcohol or drug abuse patient.[facility] CenterIn the event this information is protected by the Federal Confidentiality of Alcohol and Drug Abuse Patient Records regulations: The Federal rules restrict any use of the information to criminally investigate or prosecute any alcohol or drug abuse patient.[facility] CenterIn the event this information is protected by the Federal Confidentiality of Alcohol and Drug Abuse Patient Records regulations: The Federal rules restrict any use of the information to criminally investigate or prosecute any alcohol or drug abuse patient.[facility] CenterIn the event this information is protected by the Federal Confidentiality of Alcohol and Drug Abuse Patient Records regulations: The Federal rules restrict any use of the information to criminally investigate or prosecute any alcohol or drug abuse patient.[facility] CenterIn the event this information is protected by the Federal Confidentiality of Alcohol and Drug Abuse Patient Records regulations: The Federal rules restrict any use of the information to criminally investigate or prosecute any alcohol or drug abuse patient.[facility] CenterIn the event this information is protected by the Federal Confidentiality of Alcohol and Drug Abuse Patient Records regulations: The Federal rules restrict any use of the information to criminally investigate or prosecute any alcohol or drug abuse patient.[facility] CenterIn the event this information is protected by the Federal Confidentiality of Alcohol and Drug Abuse Patient Records regulations: The Federal rules restrict any use of the information to criminally investigate or prosecute any alcohol or drug abuse patient.[facility] CenterIn the event this information is protected by the Federal Confidentiality of Alcohol and Drug Abuse Patient Records regulations: The Federal rules restrict any use of the information to criminally investigate or prosecute any alcohol or drug abuse patient.[facility] CenterIn the event this information is protected by the Federal Confidentiality of Alcohol and Drug Abuse Patient Records regulations: The Federal rules restrict any use of the information to criminally investigate or prosecute any alcohol or drug abuse patient.[facility] CenterIn the event this information is protected by the Federal Confidentiality of Alcohol and Drug Abuse Patient Records regulations: The Federal rules restrict any use of the information to criminally investigate or prosecute any alcohol or drug abuse patient.[facility] CenterIn the event this information is protected by the Federal Confidentiality of Alcohol and Drug Abuse Patient Records regulations: The Federal rules restrict any use of the information to criminally investigate or prosecute any alcohol or drug abuse patient.[facility] CenterIn the event this information is protected by the Federal Confidentiality of Alcohol and Drug Abuse Patient Records regulations: The Federal rules restrict any use of the information to criminally investigate or prosecute any alcohol or drug abuse patient.[facility] CenterIn the event this information is protected by the Federal Confidentiality of Alcohol and Drug Abuse Patient Records regulations: The Federal rules restrict any use of the information to criminally investigate or prosecute any alcohol or drug abuse patient.[facility] CenterIn the event this information is protected by the Federal Confidentiality of Alcohol and Drug Abuse Patient Records regulations: The Federal rules restrict any use of the information to criminally investigate or prosecute any alcohol or drug abuse patient.[facility] CenterIn the event this information is protected by the Federal Confidentiality of Alcohol and Drug Abuse Patient Records regulations: The Federal rules restrict any use of the information to criminally investigate or prosecute any alcohol or drug abuse patient.[facility] CenterIn the event this information is protected by the Federal Confidentiality of Alcohol and Drug Abuse Patient Records regulations: The Federal rules restrict any use of the information to criminally investigate or prosecute any alcohol or drug abuse patient.[facility] CenterIn the event this information is protected by the Federal Confidentiality of Alcohol and Drug Abuse Patient Records regulations: The Federal rules restrict any use of the information to criminally investigate or prosecute any alcohol or drug abuse patient.[facility] CenterIn the event this information is protected by the Federal Confidentiality of Alcohol and Drug Abuse Patient Records regulations: The Federal rules restrict any use of the information to criminally investigate or prosecute any alcohol or drug abuse patient.[facility] CenterIn the event this information is protected by the Federal Confidentiality of Alcohol and Drug Abuse Patient Records regulations: The Federal rules restrict any use of the information to criminally investigate or prosecute any alcohol or drug abuse patient.[facility] CenterIn the event this information is protected by the Federal Confidentiality of Alcohol and Drug Abuse Patient Records regulations: The Federal rules restrict any use of the information to criminally investigate or prosecute any alcohol or drug abuse patient.[facility] CenterIn the event this information is protected by the Federal Confidentiality of Alcohol and Drug Abuse Patient Records regulations: The Federal rules restrict any use of the information to criminally investigate or prosecute any alcohol or drug abuse patient.[facility] CenterIn the event this information is protected by the Federal Confidentiality of Alcohol and Drug Abuse Patient Records regulations: The Federal rules restrict any use of the information to criminally investigate or prosecute any alcohol or drug abuse patient.[facility] CenterIn the event this information is protected by the Federal Confidentiality of Alcohol and Drug Abuse Patient Records regulations: The Federal rules restrict any use of the information to criminally investigate or prosecute any alcohol or drug abuse patient.[facility] the event this information is protected by the Federal Confidentiality of Alcohol and Drug Abuse Patient Records regulations: The Federal rules restrict any use of the information to criminally investigate or prosecute any alcohol or drug abuse patient.[facility] CenterIn the event this information is protected by the Federal Confidentiality of Alcohol and Drug Abuse Patient Records regulations: The Federal rules restrict any use of the information to criminally investigate or prosecute any alcohol or drug abuse patient.[facility]In the event this information is protected by the Federal Confidentiality of Alcohol and Drug Abuse Patient Records regulations: The Federal rules restrict any use of the information to criminally investigate or prosecute any alcohol or drug abuse patient.[facility] CenterIn the event this information is protected by the Federal Confidentiality of Alcohol and Drug Abuse Patient Records regulations: The Federal rules restrict any use of the information to criminally investigate or prosecute any alcohol or drug abuse patient.[facility] CenterIn the event this information is protected by the Federal Confidentiality of Alcohol and Drug Abuse Patient Records regulations: The Federal rules restrict any use of the information to criminally investigate or prosecute any alcohol or drug abuse patient.[facility] CenterIn the event this information is protected by the Federal Confidentiality of Alcohol and Drug Abuse Patient Records regulations: The Federal rules restrict any use of the information to criminally investigate or prosecute any alcohol or drug abuse patient.[facility]In the event this information is protected by the Federal Confidentiality of Alcohol and Drug Abuse Patient Records regulations: The Federal rules restrict any use of the information to criminally investigate or prosecute any alcohol or drug abuse patient.[facility] CenterIn the event this information is protected by the Federal Confidentiality of Alcohol and Drug Abuse Patient Records regulations: The Federal rules restrict any use of the information to criminally investigate or prosecute any alcohol or drug abuse patient.[facility]In the event this information is protected by the Federal Confidentiality of Alcohol and Drug Abuse Patient Records regulations: The Federal rules restrict any use of the information to criminally investigate or prosecute any alcohol or drug abuse patient.[facility]In the event this information is protected by the Federal Confidentiality of Alcohol and Drug Abuse Patient Records regulations: The Federal rules restrict any use of the information to criminally investigate or prosecute any alcohol or drug abuse patient.[facility]In the event this information is protected by the Federal Confidentiality of Alcohol and Drug Abuse Patient Records regulations: The Federal rules restrict any use of the information to criminally investigate or prosecute any alcohol or drug abuse patient.[facility]In the event this information is protected by the Federal Confidentiality of Alcohol and Drug Abuse Patient Records regulations: The Federal rules restrict any use of the information to criminally investigate or prosecute any alcohol or drug abuse patient.[facility]In the event this information is protected by the Federal Confidentiality of Alcohol and Drug Abuse Patient Records regulations: The Federal rules restrict any use of the information to criminally investigate or prosecute any alcohol or drug abuse patient.[facility]In the event this information is protected by the Federal Confidentiality of Alcohol and Drug Abuse Patient Records regulations: The Federal rules restrict any use of the information to criminally investigate or prosecute any alcohol or drug abuse patient.[facility]In the event this information is protected by the Federal Confidentiality of Alcohol and Drug Abuse Patient Records regulations: The Federal rules restrict any use of the information to criminally investigate or prosecute any alcohol or drug abuse patient.[facility]In the event this information is protected by the Federal Confidentiality of Alcohol and Drug Abuse Patient Records regulations: The Federal rules restrict any use of the information to criminally investigate or prosecute any alcohol or drug abuse patient.[facility]In the event this information is protected by the Federal Confidentiality of Alcohol and Drug Abuse Patient Records regulations: The Federal rules restrict any use of the information to criminally investigate or prosecute any alcohol or drug abuse patient.[facility]In the event this information is protected by the Federal Confidentiality of Alcohol and Drug Abuse Patient Records regulations: The Federal rules restrict any use of the information to criminally investigate or prosecute any alcohol or drug abuse patient.[facility]In the event this information is protected by the Federal Confidentiality of Alcohol and Drug Abuse Patient Records regulations: The Federal rules restrict any use of the information to criminally investigate or prosecute any alcohol or drug abuse patient.[facility]In the event this information is protected by the Federal Confidentiality of Alcohol and Drug Abuse Patient Records regulations: The Federal rules restrict any use of the information to criminally investigate or prosecute any alcohol or drug abuse patient.[facility]In the event this information is protected by the Federal Confidentiality of Alcohol and Drug Abuse Patient Records regulations: The Federal rules restrict any use of the information to criminally investigate or prosecute any alcohol or drug abuse patient.[facility]In the event this information is protected by the Federal Confidentiality of Alcohol and Drug Abuse Patient Records regulations: The Federal rules restrict any use of the information to criminally investigate or prosecute any alcohol or drug abuse patient.[facility]In the event this information is protected by the Federal Confidentiality of Alcohol and Drug Abuse Patient Records regulations: The Federal rules restrict any use of the information to criminally investigate or prosecute any alcohol or drug abuse patient.[facility]In the event this information is protected by the Federal Confidentiality of Alcohol and Drug Abuse Patient Records regulations: The Federal rules restrict any use of the information to criminally investigate or prosecute any alcohol or drug abuse patient.[facility]In the event this information is protected by the Federal Confidentiality of Alcohol and Drug Abuse Patient Records regulations: The Federal rules restrict any use of the information to criminally investigate or prosecute any alcohol or drug abuse patient.[facility]In the event this information is protected by the Federal Confidentiality of Alcohol and Drug Abuse Patient Records regulations: The Federal rules restrict any use of the information to criminally investigate or prosecute any alcohol or drug abuse patient.[facility]In the event this information is protected by the Federal Confidentiality of Alcohol and Drug Abuse Patient Records regulations: The Federal rules restrict any use of the information to criminally investigate or prosecute any alcohol or drug abuse patient.[facility]In the event this information is protected by the Federal Confidentiality of Alcohol and Drug Abuse Patient Records regulations: The Federal rules restrict any use of the information to criminally investigate or prosecute any alcohol or drug abuse patient.[facility]In the event this information is protected by the Federal Confidentiality of Alcohol and Drug Abuse Patient Records regulations: The Federal rules restrict any use of the information to criminally investigate or prosecute any alcohol or drug abuse patient.[facility]In the event this information is protected by the Federal Confidentiality of Alcohol and Drug Abuse Patient Records regulations: The Federal rules restrict any use of the information to criminally investigate or prosecute any alcohol or drug abuse patient.[facility]In the event this information is protected by the Federal Confidentiality of Alcohol and Drug Abuse Patient Records regulations: The Federal rules restrict any use of the information to criminally investigate or prosecute any alcohol or drug abuse patient.[facility]In the event this information is protected by the Federal Confidentiality of Alcohol and Drug Abuse Patient Records regulations: The Federal rules restrict any use of the information to criminally investigate or prosecute any alcohol or drug abuse patient.[facility]In the event this information is protected by the Federal Confidentiality of Alcohol and Drug Abuse Patient Records regulations: The Federal rules restrict any use of the information to criminally investigate or prosecute any alcohol or drug abuse patient.[facility]In the event this information is protected by the Federal Confidentiality of Alcohol and Drug Abuse Patient Records regulations: The Federal rules restrict any use of the information to criminally investigate or prosecute any alcohol or drug abuse patient.[facility]In the event this information is protected by the Federal Confidentiality of Alcohol and Drug Abuse Patient Records regulations: The Federal rules restrict any use of the information to criminally investigate or prosecute any alcohol or drug abuse patient.[facility]In the event this information is protected by the Federal Confidentiality of Alcohol and Drug Abuse Patient Records regulations: The Federal rules restrict any use of the information to criminally investigate or prosecute any alcohol or drug abuse patient.[facility]In the event this information is protected by the Federal Confidentiality of Alcohol and Drug Abuse Patient Records regulations: The Federal rules restrict any use of the information to criminally investigate or prosecute any alcohol or drug abuse patient.[facility]In the event this information is protected by the Federal Confidentiality of Alcohol and Drug Abuse Patient Records regulations: The Federal rules restrict any use of the information to criminally investigate or prosecute any alcohol or drug abuse patient.[facility]In the event this information is protected by the Federal Confidentiality of Alcohol and Drug Abuse Patient Records regulations: The Federal rules restrict any use of the information to criminally investigate or prosecute any alcohol or drug abuse patient.[facility]In the event this information is protected by the Federal Confidentiality of Alcohol and Drug Abuse Patient Records regulations: The Federal rules restrict any use of the information to criminally investigate or prosecute any alcohol or drug abuse patient.[facility]In the event this information is protected by the Federal Confidentiality of Alcohol and Drug Abuse Patient Records regulations: The Federal rules restrict any use of the information to criminally investigate or prosecute any alcohol or drug abuse patient.[facility] CenterIn the event this information is protected by the Federal Confidentiality of Alcohol and Drug Abuse Patient Records regulations: The Federal rules restrict any use of the information to criminally investigate or prosecute any alcohol or drug abuse patient.[facility] CenterIn the event this information is protected by the Federal Confidentiality of Alcohol and Drug Abuse Patient Records regulations: The Federal rules restrict any use of the information to criminally investigate or prosecute any alcohol or drug abuse patient.[facility] CenterIn the event this information is protected by the Federal Confidentiality of Alcohol and Drug Abuse Patient Records regulations: The Federal rules restrict any use of the information to criminally investigate or prosecute any alcohol or drug abuse patient.[facility] CenterIn the event this information is protected by the Federal Confidentiality of Alcohol and Drug Abuse Patient Records regulations: The Federal rules restrict any use of the information to criminally investigate or prosecute any alcohol or drug abuse patient.[facility] CenterIn the event this information is protected by the Federal Confidentiality of Alcohol and Drug Abuse Patient Records regulations: The Federal rules restrict any use of the information to criminally investigate or prosecute any alcohol or drug abuse patient.[facility] CenterIn the event this information is protected by the Federal Confidentiality of Alcohol and Drug Abuse Patient Records regulations: The Federal rules restrict any use of the information to criminally investigate or prosecute any alcohol or drug abuse patient.[facility] CenterIn the event this information is protected by the Federal Confidentiality of Alcohol and Drug Abuse Patient Records regulations: The Federal rules restrict any use of the information to criminally investigate or prosecute any alcohol or drug abuse patient.[facility] CenterIn the event this information is protected by the Federal Confidentiality of Alcohol and Drug Abuse Patient Records regulations: The Federal rules restrict any use of the information to criminally investigate or prosecute any alcohol or drug abuse patient.[facility] CenterIn the event this information is protected by the Federal Confidentiality of Alcohol and Drug Abuse Patient Records regulations: The Federal rules restrict any use of the information to criminally investigate or prosecute any alcohol or drug abuse patient.[facility] the event this information is protected by the Federal Confidentiality of Alcohol and Drug Abuse Patient Records regulations: The Federal rules restrict any use of the information to criminally investigate or prosecute any alcohol or drug abuse patient.[facility] CenterIn the event this information is protected by the Federal Confidentiality of Alcohol and Drug Abuse Patient Records regulations: The Federal rules restrict any use of the information to criminally investigate or prosecute any alcohol or drug abuse patient.[facility] CenterIn the event this information is protected by the Federal Confidentiality of Alcohol and Drug Abuse Patient Records regulations: The Federal rules restrict any use of the information to criminally investigate or prosecute any alcohol or drug abuse patient.[facility] CenterIn the event this information is protected by the Federal Confidentiality of Alcohol and Drug Abuse Patient Records regulations: The Federal rules restrict any use of the information to criminally investigate or prosecute any alcohol or drug abuse patient.[facility] CenterIn the event this information is protected by the Federal Confidentiality of Alcohol and Drug Abuse Patient Records regulations: The Federal rules restrict any use of the information to criminally investigate or prosecute any alcohol or drug abuse patient.[facility] CenterIn the event this information is protected by the Federal Confidentiality of Alcohol and Drug Abuse Patient Records regulations: The Federal rules restrict any use of the information to criminally investigate or prosecute any alcohol or drug abuse patient.[facility] CenterIn the event this information is protected by the Federal Confidentiality of Alcohol and Drug Abuse Patient Records regulations: The Federal rules restrict any use of the information to criminally investigate or prosecute any alcohol or drug abuse patient.[facility] CenterIn the event this information is protected by the Federal Confidentiality of Alcohol and Drug Abuse Patient Records regulations: The Federal rules restrict any use of the information to criminally investigate or prosecute any alcohol or drug abuse patient.[facility] CenterIn the event this information is protected by the Federal Confidentiality of Alcohol and Drug Abuse Patient Records regulations: The Federal rules restrict any use of the information to criminally investigate or prosecute any alcohol or drug abuse patient.[facility] CenterIn the event this information is protected by the Federal Confidentiality of Alcohol and Drug Abuse Patient Records regulations: The Federal rules restrict any use of the information to criminally investigate or prosecute any alcohol or drug abuse patient.[facility] CenterIn the event this information is protected by the Federal Confidentiality of Alcohol and Drug Abuse Patient Records regulations: The Federal rules restrict any use of the information to criminally investigate or prosecute any alcohol or drug abuse patient.[facility] CenterIn the event this information is protected by the Federal Confidentiality of Alcohol and Drug Abuse Patient Records regulations: The Federal rules restrict any use of the information to criminally investigate or prosecute any alcohol or drug abuse patient.[facility] CenterIn the event this information is protected by the Federal Confidentiality of Alcohol and Drug Abuse Patient Records regulations: The Federal rules restrict any use of the information to criminally investigate or prosecute any alcohol or drug abuse patient.[facility] CenterIn the event this information is protected by the Federal Confidentiality of Alcohol and Drug Abuse Patient Records regulations: The Federal rules restrict any use of the information to criminally investigate or prosecute any alcohol or drug abuse patient.[facility] CenterIn the event this information is protected by the Federal Confidentiality of Alcohol and Drug Abuse Patient Records regulations: The Federal rules restrict any use of the information to criminally investigate or prosecute any alcohol or drug abuse patient.[facility] CenterIn the event this information is protected by the Federal Confidentiality of Alcohol and Drug Abuse Patient Records regulations: The Federal rules restrict any use of the information to criminally investigate or prosecute any alcohol or drug abuse patient.[facility] CenterIn the event this information is protected by the Federal Confidentiality of Alcohol and Drug Abuse Patient Records regulations: The Federal rules restrict any use of the information to criminally investigate or prosecute any alcohol or drug abuse patient.[facility] CenterIn the event this information is protected by the Federal Confidentiality of Alcohol and Drug Abuse Patient Records regulations: The Federal rules restrict any use of the information to criminally investigate or prosecute any alcohol or drug abuse patient.[facility] CenterIn the event this information is protected by the Federal Confidentiality of Alcohol and Drug Abuse Patient Records regulations: The Federal rules restrict any use of the information to criminally investigate or prosecute any alcohol or drug abuse patient.[facility] CenterIn the event this information is protected by the Federal Confidentiality of Alcohol and Drug Abuse Patient Records regulations: The Federal rules restrict any use of the information to criminally investigate or prosecute any alcohol or drug abuse patient.[facility] CenterIn the event this information is protected by the Federal Confidentiality of Alcohol and Drug Abuse Patient Records regulations: The Federal rules restrict any use of the information to criminally investigate or prosecute any alcohol or drug abuse patient.[facility] CenterIn the event this information is protected by the Federal Confidentiality of Alcohol and Drug Abuse Patient Records regulations: The Federal rules restrict any use of the information to criminally investigate or prosecute any alcohol or drug abuse patient.[facility] CenterIn the event this information is protected by the Federal Confidentiality of Alcohol and Drug Abuse Patient Records regulations: The Federal rules restrict any use of the information to criminally investigate or prosecute any alcohol or drug abuse patient.[facility] CenterIn the event this information is protected by the Federal Confidentiality of Alcohol and Drug Abuse Patient Records regulations: The Federal rules restrict any use of the information to criminally investigate or prosecute any alcohol or drug abuse patient.[facility] CenterIn the event this information is protected by the Federal Confidentiality of Alcohol and Drug Abuse Patient Records regulations: The Federal rules restrict any use of the information to criminally investigate or prosecute any alcohol or drug abuse patient.[facility] Reason for Visit (unrecogniz ed section and content) Reason Comments Syncope Reason Comments Pain right leg and left a rm pain x 2 weeks, denies injury Reason Comments Follow Up Reason Comments Results Reason Comments Orders Reason Comments Refill Request Reason Comments Rash itching and burning x 6am this am Reason Onset Date Comments Refill Request 01/22/2022 Reason Comments Rash poison santa all over x1 week Head Congestion cough x2 days Reason Comments Pain Pt reported (RT) leg pain rated 8, x2 mths denied accident/injury Reason Comments Headache Reason Comments Headache started this afterno on; took naproxen and sat in a cool dark room Reason Onset Date Comments Depo Provera Injection 02/04/2022 Reason Comments Edema Reason Comments Blood Pressure Pain Reason Comments Diarrhea x 1 week Reason Comments Appointment Medication Problem Reason Comments Acute Visit diarrhea/fatique Reason Onset Date Comments Refill Request 03/19/2022 Reason Comments Question Zio Monitor Completi on/Nonreturned device Reason Comments Sore Throat cough, diarrhea x9 d ays Reason Comments Rash Possible bited bilat eral on legs onset x1 day, reported scalp irritation Reason Onset Date Comments Depo Provera Injection 04/29/2022 Reason Comments Musculoskeletal Problem Reason Comments Rash Rash right leg x 1 d ay Reason Comments heart monitor Reason Comments Established Patient Follow Up Ingrown Toenail Reason Comments Patient Update Medication Problem Reason Comments Follow Up elevated BP Reason Comments Medication Question Reason Comments STD check Reason Comments need for inhaler Reason Comments Covid19 Concern Reason Comments 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, 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 PT Eval Specialty Diagnoses / Procedures Referred By Rod vega Referred To Contact [facility] Diagnoses Right leg pain Procedures CONSULT TO PHYSICAL THERAPY PHYSICAL THERAPY EVALUATION H[place] [address] [place] [address] [facility] [address] [address] Referral ID Status Reason Start Date Expiration Date V isits Requested Visits Authorized [id number] Closed Auto-Generate d Referral 05/28/2022 07/25/2022 1 1 Reason Comments order request Reason Comments Dental Problem Upset stomach x3 day s Reason Comments Consult Reason Comments Mouth/Lip Problem tongue white lesion on right side x 1 week Reason Comments Patient Question Patient Update Reason Comments Follow Up ER follow up Reason Comments Sore Throat ST, fatigue, chills x several weeks Reason Comments Physical Therapy Specialty Diagnoses / Procedures Referred By Rod vega Referred To Contact [facility] Diagnoses Right leg pain Procedures PT REHAB FOLLOW UP ORDER THERAPEUTIC EXERCISES RE, EA 15 MIN. Win Mejia MD [address] [place] [address] [facility] [address] [place] [id number] Referral ID Status Reason Start Date Expiration Date Visits Requested Visits Authorized [id number] Authorized PCP Requested Referral Auto-Generate d Referral 2 09/13/2022 12 12 Reason Comments Spirometry Specialty Diagnoses / Procedures Referred By Contac t Referred To Contact [facility] Diagnoses COPD, mild (HCC) Procedures SPIROMETRY BASELINE ONLY SPMTRY W/VC EXPIRATORY REEMA W/WO MXML VOL VNTJ Juana Gallegos, RAYMUNDO [address] [place] [address] [facility] [place] [address] [place] [address] Referral ID Status Reason Start Date Expiration Date V isits Requested Visits Authorized [id number] Closed Auto-Generate d Referral 10/02/2021 11/01/2022 1 1 Reason Comments Patient Update Patient Question Reason Comments Patient Update Reason Comments Acute Visit continued fatique Reason Onset Date Comments Depo Provera Injection 07/22/2022 Reason Comments Urinary Frequency low back pain x 1 we ek Reason Comments Medication Problem Reason Comments Urinary Problem Pt reported frequenc y x1 wk. Reason Comments Results PFT Reason Comments Insomnia Heartburn Reason Comments Vaginal Problem X2 weeks Reason Comments frequency of urination Reason Onset Date Comments verifying medications 08/29/2022 Reason Comments Urinary Frequency New Patient Reason Onset Date Comments Refill Request 09/10/2022 Reason Comments Migraine Reason Comments Orders Reason Comments call from pt Reason Comments Cough bodyaches, diarrhea, fatigue, cough x over 1 week, left hand palm itching Reason Onset Date Comments Refill Request 10/01/2022 Reason Onset Date Comments Refill Request 10/04/2022 Reason Comments Abdominal Pain Reason Onset Date Comments Depo Provera Injection 10/14/2022 Patient b rought own med Reason Comments Acute Visit ER follow up Reason Comments Ankle Injury left x 2 weeks, righ t arm pain x 1 year, left leg pain Reason Onset Date Comments Refill Request 11/09/2022 Reason Comments Sore Throat Cough Reason Onset Date Comments Refill Request 11/11/2022 Reason Comments Cough Cough, ST, chills, w heezing and runny nose x 5 days Reason Comments Patient Question Reason Comments Patient Update Reason Comments Sore Throat ST, congestion, body aches and chills x 10 days Reason Comments UTI Reason Comments referral to Neurology Reason Comments Fecal Incontinence Reason Comments Patient Question Reason Comments Derm Problem Clearance for eczema Reason Onset Date Comments Refill Request 12/27/2022 Reason Comments Nausea vomiting, bodyaches, diarrhea, cough and sore throat x 12/20 Reason Comments Appointment Cancelled Reason Onset Date Comments Nurse Visit Depo Provera Injection 01/06/2023 Patient b rought own med Reason Comments Diarrhea Diarrhea, nausea and upset stomach x 2 days Reason Comments Release Of Medical Records Reason Comments Cough Cough, fatigue and w heezing x 2 days Reason Comments cough and facial swelling Reason Comments medication question Reason Comments Weight Loss Anxiety Reason Onset Date Comments Refill Request 06/16/2023 Reason Comments Patient Request Reason Onset Date Comments Refill Request 07/12/2023 Reason Comments Consult calculus of gallblad radha with acute cholecystitis Specialty Diagnoses / Procedures Referred By Rod t Referred To Contact General Surgery Diagnoses Calculus of gallbladder with acute cholecystitis without obstruction Juana Villegas PA-C [address] [place] [address] Momo Wright III, DO [address] [address] Referral ID Status Reason Start Date Expiration Date V isits Requested Visits Authorized [id number] Pending Review 08/12/2023 08/11/2024 1 1 Care Teams (unrecognized sec tion and content) Cold Working Inspector Relationship Specialty Start Date End Date Win Mejia MD [address] [place], [place] [id number] PCP - General Family Practice 01/11/19 Cold Working Inspector Relationship Specialty Start Date End Date Win Mejia MD [address] [place] [address] PCP - General Family Practice 01/11/19 Cold Working Inspector Relationship Specialty Start Date End Date Win Mejia MD [address] [place], [place] [id number] [phone] PCP - General Family Practice 01/11/19 Cold Working Inspector Relationship Specialty Start Date End Date Win Mejia MD [address] [place], [place] [id number] [phone] PCP - General Family Practice 01/11/19 Cold Working Inspector Relationship Specialty Start Date End Date Win Mejia MD [address] [facility] [place] [address] PCP - General Family Practice 01/11/19 Cold Working Inspector Relationship Specialty Start Date End Date Win Mejia MD [address] [facility] [place] [address] PCP - General Family Practice 01/11/19 Cold Working Inspector Relationship Specialty Start Date End Date Win Mejia MD [address] [facility] [place] [address] PCP - General Family Practice 01/11/19 Cold Working Inspector Relationship Specialty Start Date End Date Win Mejia MD [address] [facility] [place] [address] PCP - General Family Practice 01/11/19 Cold Working Inspector Relationship Specialty Start Date End Date Win Mejia MD [address] [facility] [place] [address] PCP - General Family Practice 01/11/19 Cold Working Inspector Relationship Specialty Start Date End Date Win Mejia MD [address] [facility] [place] [address] PCP - General Family Practice 01/11/19 Cold Working Inspector Relationship Specialty Start Date End Date Win Mejia MD [address] [facility] [place] [address] PCP - General Family Practice 01/11/19 Cold Working Inspector Relationship Specialty Start Date End Date Win Mejia MD [address] [facility] [place] [address] PCP - General Family Practice 01/11/19 Cold Working Inspector Relationship Specialty Start Date End Date Win Mejia MD [address] [facility] [place] [address] PCP - General Family Practice 01/11/19 Cold Working Inspector Relationship Specialty Start Date End Date Win Mejia MD [address] [facility] [place] [address] PCP - General Family Practice 01/11/19 Cold Working Inspector Relationship Specialty Start Date End Date Win Mejia MD [address] [facility] [place] [address] PCP - General Family Practice 01/11/19 Cold Working Inspector Relationship Specialty Start Date End Date Win Mejia MD [address] [facility] [place] [address] PCP - General Family Practice 01/11/19 Cold Working Inspector Relationship Specialty Start Date End Date Win Mejia MD [address] [facility] [place] [address] PCP - General Family Practice 01/11/19 Cold Working Inspector Relationship Specialty Start Date End Date Win Mejia MD [address] [facility] [place] [address] PCP - General Family Practice 01/11/19 Cold Working Inspector Relationship Specialty Start Date End Date Win Mejia MD [address] [facility] [place] [address] PCP - General Family Practice 01/11/19 Cold Working Inspector Relationship Specialty Start Date End Date Win Mejia MD [address] [facility] [place] [address] PCP - General Family Medicine 01/11/19 Cold Working Inspector Relationship Specialty Start Date End Date Win Mejia MD [address] [facility] [place] [address] PCP - General Family Medicine 01/11/19 Cold Working Inspector Relationship Specialty Start Date End Date Win Mejia MD [address] [facility] [place] [address] PCP - General Family Medicine 01/11/19 Cold Working Inspector Relationship Specialty Start Date End Date Win Mejia MD [address] [facility] [place] [address] PCP - General Family Medicine 01/11/19 Cold Working Inspector Relationship Specialty Start Date End Date Win Mejia MD [address] [facility] [place] [address] PCP - General Family Medicine 01/11/19 Cold Working Inspector Relationship Specialty Start Date End Date Win Mejia MD [address] [facility] [place] [address] PCP - General Family Medicine 01/11/19 Cold Working Inspector Relationship Specialty Start Date End Date Win Mejia MD [address] [facility] [place] [address] PCP - General Family Medicine 01/11/19 Cold Working Inspector Relationship Specialty Start Date End Date Win Mejia MD [address] [facility] [place] [address] PCP - General Family Medicine 01/11/19 Cold Working Inspector Relationship Specialty Start Date End Date Win Mejia MD [address] [facility] [place] [address] PCP - General Family Medicine 01/11/19 Cold Working Inspector Relationship Specialty Start Date End Date Win Mejia MD [address] [facility] [place] [address] PCP - General Family Medicine 01/11/19 Cold Working Inspector Relationship Specialty Start Date End Date Win Mejia MD [address] [facility] [place] [address] PCP - General Family Medicine 01/11/19 Cold Working Inspector Relationship Specialty Start Date End Date Win Mejia MD [address] [facility] [place] [address] PCP - General Family Medicine 01/11/19 Cold Working Inspector Relationship Specialty Start Date End Date Win Mejia MD [address] [facility] [place] [address] PCP - General Family Medicine 01/11/19 Cold Working Inspector Relationship Specialty Start Date End Date Win Mejia MD [address] [facility] [place] [address] PCP - General Family Medicine 01/11/19 Cold Working Inspector Relationship Specialty Start Date End Date Win Mejia MD [address] [facility] [address] PCP - General Family Medicine 01/11/19 Cold Working Inspector Relationship Specialty Start Date End Date Win Mejia MD [address] [facility] [address] PCP - General Family Medicine 01/11/19 Cold Working Inspector Relationship Specialty Start Date End Date Win Mejia MD [address] [facility] [address] PCP - General Family Medicine 01/11/19 Cold Working Inspector Relationship Specialty Start Date End Date Win Mejia MD [address] [facility] [address] PCP - General Family Medicine 01/11/19 Cold Working Inspector Relationship Specialty Start Date End Date Win Mejia MD [address] [facility] [address] PCP - General Family Medicine 01/11/19 Cold Working Inspector Relationship Specialty Start Date End Date Win Mejia MD [address] [facility] [place] [address] PCP - General Family Medicine 01/11/19 Cold Working Inspector Relationship Specialty Start Date End Date Win Mejia MD [address] [facility] [address] PCP - General Family Medicine 01/11/19 Cold Working Inspector Relationship Specialty Start Date End Date Win Mejia MD [address] [facility] [place] [address] PCP - General Family Medicine 01/11/19 Cold Working Inspector Relationship Specialty Start Date End Date Win Mejia MD [address] [facility] [address] PCP - General Family Medicine 01/11/19 Cold Working Inspector Relationship Specialty Start Date End Date Win Mejia MD [address] [facility] [address] PCP - General Family Medicine 01/11/19 Cold Working Inspector Relationship Specialty Start Date End Date Win Mejia MD [address] [facility] [place] [address] PCP - General Family Medicine 01/11/19 Cold Working Inspector Relationship Specialty Start Date End Date Win Mejia MD [address] [facility] [place] [address] PCP - General Family Medicine 01/11/19 Cold Working Inspector Relationship Specialty Start Date End Date Win Mejia MD [address] [facility] [place] [address] PCP - General Family Medicine 01/11/19 Cold Working Inspector Relationship Specialty Start Date End Date Win Mejia MD [address] [facility] [place] [address] PCP - General Family Medicine 01/11/19 Cold Working Inspector Relationship Specialty Start Date End Date Win Mejia MD [address] [facility] [place] [address] PCP - General Family Medicine 01/11/19 Cold Working Inspector Relationship Specialty Start Date End Date Win Mejia MD [address] [place] [address] PCP - General Family Medicine 01/11/19 Cold Working Inspector Relationship Specialty Start Date End Date Win Mejia MD [address] [place] [address] PCP - General Family Medicine 01/11/19 Cold Working Inspector Relationship Specialty Start Date End Date Win Mejia MD [address] [place] [address] PCP - General Family Medicine 01/11/19 Cold Working Inspector Relationship Specialty Start Date End Date Win Mejia MD [address] [place] [address] PCP - General Family Medicine 01/11/19 Cold Working Inspector Relationship Specialty Start Date End Date Win Mejia MD [address] [place] [address] PCP - General Family Medicine 01/11/19 Cold Working Inspector Relationship Specialty Start Date End Date Win Mejia MD [address] [place] [address] PCP - General Family Medicine 01/11/19 Cold Working Inspector Relationship Specialty Start Date End Date System, Provider Not In PCP - General 04/29/23 Cold Working Inspector Relationship Specialty Start Date End Date Juana Villegas PA-C [address] [facility] [facility] [address] [place] [address] PCP - General Emergency Medicine 08/18/23 Cold Working Inspector Relationship Specialty Start Date End Date Juana Villegas PA-C [address] [place] [address] PCP - General Emergency Medicine 08/18/23 FOR RECORDS PERTAINING TO PATIENTS WHO ARE OR HAVE BEEN ENROLLED IN A CHEMICAL DEPENDENCY/SUBSTANCEABUSE PROGRAM, SOME INFORMATION MAY BE OMITTED. This clinical summary was aggregated from multiple sources. Caution should be exercised in using it in the provision of clinical care. This summary normalizes information from multiple sources, and as a consequence, information in this document may materially change the coding, format and clinical context of patient data. In addition, data may be omitted in some cases. CLINICAL DECISIONS SHOULD BE BASED ON THE PRIMARY CLINICAL RECORDS. [facility] provides no warranty or guarantee of the accuracy or completeness of information in this document.
[2023-10-26 12:40] LABS: Basophil# 0.06 X10^3/uL; Basophil% 0.6 % (0-1); Eosinophil# 0.21 X10^3/uL; Eosinophils% 2.1 % (0-5); Hematocrit 44.2 % (37-47); Hemoglobin 14.6 g/dL (12.0-15.0); Lymphocyte % 31.1 % (19-41); Mean Corpuscular Hgb 28.9 pg (27.0-32.0); Mean Corpuscular Volume 87.4 fL (81-99); Mean Platelet Vol. 11.2 fl (6.2-12.0); NRBC Flagged by Analyzer 0 % (0-5); Neutrophil # 5.97 X10^3/uL (2.7-7.7); Neutrophil % 59.9 % (47-70); Platelet Count 233 K/mm3 (150-450); RBC Distribution Width CV 12.4 % (11.6-14.6); RBC Distribution Width SD 39.2 fl (35.1-43.9); Red Blood Count 5.06 M/mm3 (4.2-5.4)
[2023-10-26 13:19] LABS: Thyroid Stim Hormone (TSH) 2.42 uIU/mL (0.358-3.74)
[2023-10-26 13:27] LABS: HIV - WCH Non-Reactive (Nonreactive)
== END | disposition home or self-care (01) ==
LOC: BIMLAB 11:01
PROVIDERS: PCP Family Medicine; Visit Provider Family Medicine
DX: R07.9 Chest pain, unspecified (principal); R53.83 Other fatigue; F32.9 Major depressive disorder, single episode, unspecified
CPT/HCPCS: 36415; 84443; 85025; 86703

== ENCOUNTER → 2023-11-02 | Outpatient (CLI) | payer MEDICARE, SELFPAY ==
[2023-11-02 12:38] LABS: Vitamin B12 578 pg/mL (211-911); Vitamin D,25 Hydroxy 54.6 ng/mL
== END | disposition home or self-care (01) ==
LOC: BIMLAB 11:01
PROVIDERS: PCP Family Medicine; Visit Provider Physician Assistant
DX: R53.83 Other fatigue (principal); E55.9 Vitamin D deficiency, unspecified
CPT/HCPCS: 36415; 82306; 82607

== ENCOUNTER → 2023-11-10 | Outpatient (CLI) | payer MEDICARE, SELFPAY ==
--- NOTE | 2023-11-10 07:19 | US_ITS ---
STUDY: ABDOMINAL ULTRASOUND - RIGHT UPPER QUADRANT REASON FOR VISIT: Female, 43 years old gallstones. TECHNIQUE: Ultrasound evaluation of the right upper quadrant was performed with real-time and static crooks-scale imaging. TECHNICAL QUALITY: Adequate. COMPARISON: CT abdomen and pelvis without contrast 04/20/2022. FINDINGS: Liver: The liver measures 18.3 cm. There is normal echogenicity of the liver. The bile ducts are within normal limits. There is hepatic color flow. The direction of portal flow is hepatopetal. There is no demonstrated mass lesion. Gallbladder: Normal distended gallbladder. The gallbladder wall measures 1.2 mm. There is a negative sonographic Pantoja''s sign. There is no pericholecystic fluid. There are a few prominent gallstones with distal acoustic shadowing. Common Bile Duct (C.B.D.): The common bile duct measures 2.5 mm. Pancreas: Normal size of the head, body and tail of the pancreas. There is normal echogenicity of the pancreas. There is no demonstrated pancreatic mass or cyst. There is no pancreatic ductal dilatation. Right Kidney: Normal size of the right kidney. The right kidney measures 11.6 x 5.5 x 4.0 cm. Normal renal cortex. The right cortex measures 1.2 cm. There is no demonstrated renal mass or cyst. There is no right hydronephrosis. US/Gallbladder IMPRESSION: 1. Few calcified gallstones but negative sonographic Pantoja''s sign and no pericholecystic fluid. 2. Normal remainder of the right upper quadrant ultrasound of the abdomen. Electronically Signed: Petey Verdugo MD at 13:52 EST ,
--- OUTSIDE RECORDS SUMMARY | 2023-11-10 07:24 | XMS RPT_ITS | CCD ---
Author Name Unknown Address [address] [place] [address] Organization [facility] Care Team Providers Care Prehemmer Name Role Phone Rick Shara Carlos Unavailable Shara Cabrera Unavailable Corin Harrison Unavailable Unavaildavid e PHYSICIAN, NOT RECORDED Unavailable UnavailWin Ash MD Primary Care Provider Win Mejia MD Primary Care Provider Win Mejia MD Primary Care Provider Win Mejia MD Primary Care Provider Unavailable Primary Care Provider UnavailPRISCILLA Ding Attending Unavailable PHYSICIAN, NO PCP Primary Care Unavailable System, Provider Not In Primary Care Provider Un available SYSTEM, PROVIDER NOT IN Primary Care UnavailNICOLA Quintero Attending Unavaila JUANA Gant Primary Care Unavailable JUANA VILLEGAS Referring Unavailable SEVER IIIMOMO Attending Unavail able JUANA VILLEGAS Admitting Unavailable Unavailable Primary Care Provider UnavailJuana Santos PA-C Primary Care Provider PHYSICIAN, NO PCP Primary Care Unavailable PHYSICIAN, NO PCP Primary Care Unavailable PHYSICIAN, NO PCP Primary Care Unavailable JUANA VILLEGAS Primary Care Unavailable SEVER III, MOMO EDWARD Attending Unavail able SEVER IIIMOMO Admitting Unavail able WIN MEJIA Primary Care Unavailable IAN YING Referring Unavailable ELDERBROCK, WIN D Primary Care [...] Unavailable ELDERBROCK, WIN D Primary Care Unavailable JUANA VILLEGAS Attending Unavailable JUANA VILLEGAS Attending Unavailable MICAELA WOODS Attending Unavailable JUANA VILLEGAS Attending Unavailable JUANA VILLEGAS Attending Unavailable JUANA VILLEGAS Attending Unavailable JUANA VILLEGAS Attending Unavailable Allergies Allergy Classification Reported Allergen(s) Allergy Type Date of Onset Reaction(s) Facility (2 sources) influenza a virus a/isbane 010 (h1n1) antigen / influenza a virus a/adler (h3n2) antigen / influenza b virus b/adler antigen / influenza b virus b/ antigen drug allergy 6 [facility] Work Phone: (2 sources) Latex rubber gloves; Translations: [LATEX GLOVES] allergy to substance 6 [facility] Work Phone: (2 sources) morphine drug allergy 6 [facility] Work Phone: (2 sources) HANDSANITIZER; Translations: [HANDSANITIZER] allergy to substance 6 [facility] Work Phone: (20 sources) Benzalkonium; Translations: [BENZALKONIUM CHLORIDE] Drug Allergy 3 Other: See Comments [facility] (20 sources) Calcium oxide; Translations: [COUSHATTA] Drug Allergy 8 Intolerance, Anaphylaxis, Unknown [facility] Work Phone: (20 sources) Clindamycin; Translations: [CLINDAMYCIN] Drug Allergy 8 GI Upset, Nausea and vomiting [facility] Work Phone: (20 sources) Doxycycline; Translations: [DOXYCYCLINE] Drug Allergy 3 GI Upset [facility] Work Phone: (20 sources) Iodine; Translations: [IODINE] Drug Allergy 1 Rash [facility] (20 sources) Latex; Translations: [LATEX, NATURAL RUBBER] Drug Allergy 8 Rash [facility] Work Phone: (20 sources) meloxicam; Translations: [MELOXICAM] Drug Allergy 8 Unknown, Other (See Comments) [facility] Work Phone: (20 sources) metroNIDAZOLE; Translations: [METRONIDAZOLE] Drug Allergy 8 Hives [facility] Work Phone: (20 sources) montelukast; Translations: [MONTELUKAST] Drug Allergy 8 Unknown, Rash [facility] (20 sources) Morphine; Translations: [MORPHINE] Drug Allergy 1 Itching, Other (See Comments) [facility] Work Phone: (20 sources) Ondansetron; Translations: [ONDANSETRON HCL (PF)] Drug Allergy 1 Other: See Comments [facility] (20 sources) Penicillin; Translations: [PENICILLIN] Drug Allergy 6 Unknown [facility] Work Phone: (20 sources) predniSONE; Translations: [PREDNISONE] Drug Allergy 2 Other: See Comments, Other (See Comments) [facility] Work Phone: (20 sources) Ethyl Alcohol (Skin Cleanser); Translations: [ETHYL ALCOHOL (SKIN CLEANSER)] Propensity to adverse reactions 0 Rash [facility] Work Phone: (9 sources) Penicillins; Translations: [PENICILLINS] Propensity to adverse reactions to drug (disorder) 6 Unknown [facility] Rep[facility] (6 sources) CALCIUM OXIDE; Translations: [CALCIUM OXIDE] Propensity to adverse reactions to drug (disorder) 8 [facility] (8 sources) INFLUENZA VIRUS VACCINE, SPECIFIC; Translations: [INFLUENZA VIRUS VACCINE, SPECIFIC] Propensity to adverse reactions to drug (disorder) 9 Other (See Comments) [facility] Repository (1 source) Latex; Translations: [LATEX] Propensity to adverse reactions to drug (disorder) 3 [facility] Repository (1 source) Ondansetron; Translations: [ONDANSETRON] Drug Allergy 1 [facility] Rep[facility] (1 source) INFLUENZA VAC SPLIT QUAD; Translations: [INFLUENZA VAC SPLIT QUAD] Propensity to adverse reactions to drug (disorder) 9 [facility] Repository (1 source) ALLERGIES NOT ON FILE; Translations: [ALLERGIES NOT ON FILE] Propensity to adverse reactions (disorder) [facility] Repository Medications Current Medications Medication Drug [...] (11 sources) Calculus of gallbladder with acute cholecystitis; Translations: [Calculus of gallbladder with acute cholecystitis without obstruction] Onset: 08-02-2023 08-12-2023 Episodic Chronic obstructive pulmonary disease and bronchiectasis [...] with esophagitis without hemorrhage] Onset: 08-25-2022 Chronic Genitourinary symptoms and ill-defined conditions (7 sources) Increased frequency of urination; Translations: [Frequency of micturition] Onset: 12-09-2022 Episodic Headache; including migraine (3 sources) Headache; Translations: [Headache, unspecified headache type] Episodic Immunizations and screening for infectious disease (11 sources) Patient encounter status; Translations: [Encounter for screening for infections with a predominantly sexual mode of transmission] Onset: 07-14-2023 Episodic Intestinal infection (1 source) Viral gastroenteritis; Translations: [Viral intestinal infection, unspecified] Episodic Malaise and fatigue (11 sources) Fatigue; Translations: [Other fatigue] Onset: 12-29-2022 Episodic Menstrual disorders (1 source) Break-through bleeding; [...] mental disorders or infectious disease) (4 sources) Encounter for screening mammogram for malignant neoplasm of breast; Translations: [Encounter for other screening for malignant neoplasm of breast] Onset: 07-20-2023 [...] nose and nasal sinuses] Onset: 08-02-2023 Episodic Other upper respiratory infections (13 sources) Acute upper respiratory infection; Translations: [Acute upper respiratory infection, unspecified] Onset: 11-10-2022 Episodic Otitis media and related conditions (1 source) Acute left otitis media; Translations: [Otitis media, unspecified, left ear] Episodic Residual codes; unclassified (20 sources) Obstructive sleep apnea syndrome; Translations: [Obstructive sleep apnea (adult) (pediatric)] Onset: 05-18-2021 05-18-2021 Chronic Residual codes; unclassified (1 source) Pain; Translations: [Pain, unspecified] Episodic Spondylosis; intervertebral disc disorders; other back [...] of lower limb] Onset: 08-19-2016 08-26-2016 Episodic Unclassified (1 source) Acute cough; Translations: [Acute cough] Onset: 09-20-2023 Viral infection (20 sources) Herpes simplex infection [...] [Periapical abscess without sinus] Onset: 11-04-2022 Episodic Mycoses (20 sources) Onychomycosis; Translations: [Tinea [...] pain of left shoulder] Onset: 11-08-2022 Episodic Skin and subcutaneous tissue infections (2 [...] Translations: [Syncope and collapse] Onset: 12-09-2022 Episodic Unclassified (1 source) Acute cough; Translations: [Acute cough] Onset: 09-20-2023 Results Test Name Value Interpretation Reference Range Facil ity Vital Signs Date Time Vital Sign Value Performing Clinician Lucie lity 08-23-2023 11:04-0500 Body mass index (BMI) [Ratio] 31.84 kg/m2 Momo Wright III, DO Work Phone: [facility] 08-23-2023 11:04-0500 Body temperature 98.49 [degF] Momo Wright III, DO Work Phone: [facility] 08-23-2023 11:04-0500 Body weight 92.22 kg Momo Wright III, DO Work Phone: [facility] 08-23-2023 11:04-0500 Diastolic blood pressure 96 mm[Hg] Momo Wright III, DO Work Phone: [facility] Encounters Encounter Date Encounter Type Care Provider Facility Start: 10-25-2023 ambulatory JUANA VILLEGAS [facility] Start: 09-20-2023 End: 09-20-2023 ambulatory JUANA VILLEGAS [facility] Start: 09-07-2023 Orders Only Momo Wright DO Work Phone: [facility] General Surgery Procedures Date Procedure Procedure Detail Performing Clinician Start: 07-14-2023 Microscopic observat ion [Identifier] in Cervix by Cyto stain Momo Wright III, DO Work Phone: Start: 02-09-2023 STREP A MOLECULAR (POC) Shara Morel [employer]ITATION TRUCK DRIVER.MUSEUM CURATOR Work Phone: Start: 11-12-2022 STREP A MOLECULAR (POC) Dorys Martins SANITATION TRUCK DRIVER.MUSEUM CURATOR Work Phone: Start: 09-07-2022 Urnls dip stick/tabl et rgnt auto w/o microscopy Richard Kapoor PA-C Work Phone: Start: 08-12-2022 Urnls dip stick/tabl et rgnt auto w/o microscopy Dorys Martins SANITATION TRUCK DRIVER.MUSEUM CURATOR Work Phone: Start: 08-03-2022 Urnls dip stick/tabl et rgnt auto w/o microscopy Shannon Box PA-C Work Phone: Start: 07-19-2022 Spmtry w/vc expirato ry reema w/wo mxml vol vntj Juana Gallegos PA-C Work Phone: Start: 07-14-2022 STREP A MOLECULAR (POC) Ian Ying MD Work Phone: Start: 05-31-2022 BACTERIAL VAGINOSIS AMPLIFICATION Shara Jaramillo SANITATION TRUCK DRIVER.CNM Work Phone: Start: 05-31-2022 Iadna chlamydia trachomatis amplified probe tq Shara Jaramillo SANITATION TRUCK DRIVER.CNM Work Phone: Start: 05-31-2022 Urnls dip stick/tabl et rgnt auto w/o microscopy Shara Jaramillo SANITATION TRUCK DRIVER.CNM Work Phone: Start: 04-02-2022 STREP A MOLECULAR [...] 07-14-2028 Screening for malignant neoplasm of cervix [facility] Start: 01-22-2025 DTaP,Tdap,and Td Vaccines (8 - Td or Tdap) DTaP,Tdap,and Td Vaccines (8 - Td or Tdap) [facility] Start: 01-22-2025 Tetanus vaccination Tetanus: Every 10yrs [facility] Start: 01-22-2025 Urine microalbumin profile [facility] Start: 07-19-2024 End: 07-19-2024 Patient encounter procedure 07/19/2024 2:00 PM EST Office Visit Cheo Lewis [address] [place] [id number] [address] [place] [address] Cheo Lewis Start: 07-14-2024 History and physical examination, annual for health maintenance Wellness Visit [facility] Start: 11-11-2023 ANNUAL PCP TEAM CHRONIC DISEASE VISIT ANNUAL PCP TEAM CHRONIC DISEASE VISIT [facility] Start: 11-05-2023 ANNUAL PCP TEAM CHRONIC DISEASE VISIT ANNUAL PCP TEAM CHRONIC DISEASE VISIT [facility] Start: 10-08-2023 ANNUAL PCP TEAM CHRONIC DISEASE VISIT ANNUAL PCP TEAM CHRONIC DISEASE VISIT [facility] Start: 09-27-2023 End: 09-27-2023 Follow-up encounter 09/27/2023 2:00 PM EST Follow-Up [facility] Physician [facility] General Surgery [address] [place] [address] Momo Wright III, DO [address] [place] [address] [facility] Physician [facility] General Surgery Start: 09-15-2023 ANNUAL PCP TEAM CHRONIC DISEASE VISIT ANNUAL PCP TEAM CHRONIC DISEASE VISIT [facility] Start: 09-14-2023 End: 09-14-2023 Admission to same day surgery center 09/14/2023 1:35 PM EST - 09/14/2023 2:40 PM EST Surgery [facility] [address] [place] [address] Momo Wright III, DO [address] [place] [address] ROBOTIC CHOLECYSTECTOMY WITH INDOCYANINE GREEN CHOLANGIOGRAM [facility] Immunizations Immunization Date Immunization Notes Care Provider Fa cility 09-17-2019 influenza virus vaccine, unspecified formulation No Pcp 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 01-22-2015 tetanus toxoid, reduced diphtheria toxoid, and acellular pertussis vaccine, adsorbed Kaleigh Sampson MD Work Phone: [facility] 09-28-2012 influenza virus vaccine, unspecified formulation Kaleigh Sampson MD Work Phone: [facility] 03-19-2011 hepatitis B vaccine, pediatric or pediatric/adolescent dosage Kaleigh Sampson MD Work Phone: [facility] Work Phone: 03-19-2011 hepatitis B vaccine, unspecified formulation [facility] [employer]ITATION TRUCK DRIVER.MUSEUM CURATOR Work Phone: [facility] 08-03-2010 hepatitis B vaccine, adult dosage Kaleigh Sampson MD Work Phone: [facility] Work Phone: 08-03-2010 hepatitis B vaccine, pediatric or pediatric/adolescent dosage Kaleigh Sampson MD Work Phone: [facility] Work Phone: 08-03-2010 influenza virus vaccine, whole virus Kaleigh Sampson MD Work Phone: [facility] Work Phone: 06-19-2010 hepatitis B vaccine, adult dosage Kaleigh Sampson MD Work Phone: [facility] Work Phone: 06-19-2010 hepatitis B vaccine, pediatric or pediatric/adolescent dosage Kaleigh Sampson MD Work Phone: [facility] Work Phone: 06-05-2010 influenza virus vaccine, unspecified formulation Kaleigh Sampson MD Work Phone: [facility] Work Phone: 12-18-2009 hepatitis B vaccine, adult dosage Kaleigh Sampson MD Work Phone: [facility] Work Phone: 09-06-2003 tetanus toxoid, reduced diphtheria toxoid, and acellular pertussis vaccine, adsorbed Kaleigh Sampson MD Work Phone: [facility] 07-26-1988 trivalent poliovirus vaccine, live, oral Kaleigh Sampson MD Work Phone: [facility] 09-14-1985 diphtheria and tetan us toxoids, adsorbed for pediatric use Kaleigh Sampson MD Work Phone: [facility] 02-03-1982 diphtheria, tetanus toxoids and acellular pertussis vaccine Kaleigh Sampson MD Work Phone: [facility] 02-03-1982 trivalent poliovirus vaccine, live, oral Kaleigh Sampson MD Work Phone: [facility] 05-28-1980 measles, mumps and rubella virus vaccine Kaleigh Sampson MD Work Phone: [facility] 06-05-1979 diphtheria, tetanus toxoids and acellular pertussis vaccine Kaleigh Sampson MD Work Phone: [facility] 06-05-1979 trivalent poliovirus vaccine, live, oral Kaleigh Sampson MD Work Phone: [facility] 04-05-1979 diphtheria, tetanus toxoids and acellular pertussis vaccine Kaleigh Sampson MD Work Phone: [facility] 04-05-1979 trivalent poliovirus vaccine, live, oral Kaleigh Sampson MD Work Phone: [facility] 02-03-1979 diphtheria, tetanus toxoids and acellular pertussis vaccine Kaleigh Sampson MD Work Phone: [facility] 02-03-1979 trivalent poliovirus vaccine, live, oral Kaleigh Sampson MD Work Phone: [facility] Payers Date Payer Category Payer Medicare [id number] 2023 Medicare MEDICARE MEDICAR E PART A & B [id number] 2023-Present [phone] CGS [id number] PART A CLAIMS [address] [address] [place] [address] [id number] 2018 Medicaid [id number] 2018 Private Health Insurance [id number] 2017 Medicaid [facility] MEDICAID [facility] MEDICAID [id number] 2017-Present [phone] [address] [place] [address] Medicaid [id number] 2017 Medicaid [id number] 1978 Unknown [id number] 1978 Unknown [id number] 1978 Unknown [id number] 1978 Unknown [id number] 1978 Unknown [id number] [id number] 1978 Unknown [id number] [id number] 1978 Unknown [id number] 1260 1978 Unknown [id number] 1260 1978 Unknown [id number] 1260 1978 Unknown [id number] 1260 Social History Date Type Detail Facility Start: 08-19-2021 End: 04-29-2023 Tobacco smoking status NHIS Smokes tobacco daily [facility] End: 03-09-2021 History of tobacco use Cigarette Smoker [facility] Start: 08-19-2021 End: 09-11-2023 Cigarettes smoked current (pack per day) - Reported 1 [facility] Work Phone: Start: 08-19-2021 End: 04-29-2023 Tobacco use and exposure Smokeless tobacco non-user [facility] Start: 12-01-2021 End: 09-11-2023 Alcohol intake Ex-drinker (finding) [facility] Start: 03-04-2021 History SDOH Alcohol Comment Quit 4 months ago. [facility] Start: 06-20-2020 End: 07-04-2020 History SDOH Social Connections Phone 5 [facility] Start: 06-20-2020 End: 07-04-2020 History SDOH Social Connections Get Together 2 [facility] Start: 06-20-2020 History SDOH Social Connections Hinduism 3 [facility] Start: 06-20-2020 End: 07-04-2020 History SDOH Social Connections Membership 1 [facility] Start: 06-20-2020 History SDOH Social Connections Living 7 [facility] Start: 06-20-2020 History SDOH Physica l Activity DPW 0 [facility] Start: 06-20-2020 History SDOH Stress 4 [facility] Start: 1980 Sex Assigned At Not on file C [facility] Start: 11-15-2021 End: 08-05-2022 Exposure to SARS-CoV-2 (event) Not sure [facility] Start: 05-11-2022 End: 06-11-2022 Exposure to SARS-CoV-2 (event) Yes [facility] Start: 09-07-2022 Alcohol Comment Quit 12/2021 [facility] Start: 02-22-2023 End: 09-11-2023 Tobacco use panel [facility] Work Phone: National Score (1-100), lower number is lower risk 80 [facility] Are you now , , , , never or living with a partner? Never [facility] Work Phone: Do you feel stress - tense, restless, nervous, or anxious, or unable to sleep at night because your mind is troubled all the time - these days [OSQ] Rather much [facility] Work Phone: (I/We) worried wheth er (my/our) food would run out before (I/we) got money to buy more. Never true [facility] Tobacco smoking stat [facility] Tobacco smoking consumption unknown Irene Toonimo NEGATED: Highlighted rowStart: NEENAF History of tobacco use Passive smoker [facility] Clinical Notes 01-03-2013 to 09-11-2023 Momo Wright III, - 09/11/2023 9:20 PM ESTTelephone Encounter - [...] the patient's satisfaction. documented in this encounter [facility] 07-12-2023 Miscellaneous Notes Unable to reach patient. Left detailed message on patient's VM (per demo notes) with provider message. Luisana Madden MA Patient is no longer following with us. This medication can be purchased over the counter. Misbah Michel APRN.JOSE ROBERTO Patient calling and requesting refill of her Vit D3 to [facility]. Currently patient has NO PCP and per telephone note 04/29/23, patient stated she moved to [place], [place]. Per note, pt was advised at that time to seek a provider near her for further medical needs. Asking if Dr. Mejia is willing to send temporary refill for patient? Please call patient with update. Thank you. documented in this encounter [facility] 07-12-2023 Miscellaneous Notes Patient requesting allergy list be faxed to [employer] at FAX #: [phone]. Pt states she has an appt there at 2pm today and requesting this be faxed. Faxed as requested. Viki Brady RN documented in this encounter [facility] 06-16-2023 Miscellaneous Notes The following approved medication requests have been transmitted electronically. Requested Prescriptions Pending Prescriptions Disp Refills ascorbic acid, vitamin C, (VITAMIN C) 500 mg tablet 30 tablet 2 Sig: Take 1 tablet by mouth once daily. Prabha Springre APRN.JOSE ROBERTO Patient has been identified by name and [...] for medication: Please advise. Thank you. Negrita M Lentine, RN documented in this encounter [facility] 05-03-2023 Miscellaneous Notes Pt returned call and given provider's message below with verbalized understanding. Called and left a voicemail for the Patient to call back and ask for a nurse to receive the providers message. Maureen Benjamin RN I agree with the advice given; she [...] be seen. She states she lives in [place] now and has no way to get [...] call and advise. documented in this encounter [facility] 05-01-2023 Miscellaneous Notes Reason for Call: [...] Overwhelmed, anxious 3. ONSET: 03/04/23 Moved to [place], living with cousin who is critical, non-supportive 4. SEVERITY: 6 or 7/10 5. FUNCTIONAL IMPAIRMENT: Fixations on food, medicine contamination 6. HISTORY:Treated before with medications, counseling, programs 7. RISK OF HARM - SUICIDAL IDEATION: Denies any thoughts or plans of hurting self or others 8. TREATMENT: Recent - 4 week program in [place], had to end early due to loss of job and moving 9. TREATMENT - THERAPIST: Dipika James - Therapist with [employer], talks to every other Tuesday 10. POTENTIAL TRIGGERS: Worries about brother, currently incarcerated since November 2022 10. PATIENT SUPPORT: No other family member in [place], [place] 11. OTHER SYMPTOMS: Unexplained weight loss-lost 20 pounds within past 2 months. Cough - has COPD, Asthma and cigarette smoker, with increased cigarette usage. Right hand numb 12. : Denies Patient states she was seen in [facility] ED 04/29/23, diagnosed with bronchitis. Protocols used: Anxiety and Panic [id number] documented in this encounter [facility] 03-14-2023 Miscellaneous Notes TC to patient [...] be taking one? documented in this encounter [facility] 02-28-2023 Miscellaneous Notes Pt notified. Elsy [...] phone tag . documented in this encounter [facility] 02-22-2023 Note HNO ID: [id number] Author: GERARDO Hein Service: ? Author Type: Physician Tearoom Host Type: Progress Notes Filed: 02/22/2023 10:15 AM Note Text: This note was created using Krakenter. Subjective Angelica Andujar is a 42 year [...] Arthritis Asthma COPD (chronic obstructive pulmonary disease) ([facility]) Depression Obesity (BMI 30.0-34.9) CHARLES (obstructive sleep apnea) Recurrent UTI Seasonal allergies STD (sexually transmitted disease) Tobacco use disorder 05/18/2021 PAST SURGICAL HISTORY Procedure Laterality Date COLONOSCOPY W/BIOPSY SINGLE/MULTIPLE 03/02/11 ESOPHAGOGASTRODUODENOSCOPY TRANSORAL DIAGNOSTIC 11/14/2012 EGD ESOPHAGOGASTRODUODENOSCOPY TRANSORAL DIAGNOSTIC 06/02/2020 EGD MED INC ALL EX DRUG 11/2009 PAST SURGICAL HISTORY OF WISDOM TEETH ALLERGIES Benzalkonium Chloride; Clindamycin; Doxycycline; Flagyl [Metronidazole]; Hand Museum Educator [Ethyl Alcohol (Skin Cleanser)]; Iodine; Latex, Natural Rubber; [place]; Meloxicam; Morphine; Penicillin; Prednisone; Singulair [Montelukast]; and [...] 84 tabletRfl: 5 multivitamin with folic acid ([facility] MULTIVITAMIN) 400 mcgTake 1 tablet by mouth once daily.Disp: 30 tabletRfl: 11 lactobacillus rhamnosus ([facility] [employer] [facility]) 10 billion cell -200 mg [...] (SALINE MIST) 0.65 % nasal sprayUse 1 [place] in the nose as needed for cold/allergy [...] once daily.Disp: 3 (more content not included)... [facility] 02-22-2023 History of Present illness Narrative Images from the original note were not included. This note was created using Qwayariter. Subjective Angelica Andujar is a 42 year [...] Arthritis Asthma COPD (chronic obstructive pulmonary disease) ([facility]) Depression Obesity (BMI 30.0-34.9) CHARLES (obstructive sleep apnea) Recurrent UTI Seasonal allergies STD (sexually transmitted disease) Tobacco use disorder 05/18/2021 PAST SURGICAL HISTORY Procedure Laterality Date COLONOSCOPY W/BIOPSY SINGLE/MULTIPLE 03/02/11 ESOPHAGOGASTRODUODENOSCOPY TRANSORAL DIAGNOSTIC 11/14/2012 EGD ESOPHAGOGASTRODUODENOSCOPY TRANSORAL DIAGNOSTIC 06/02/2020 EGD [facility] [employer] ALL EX DRUG 11/2009 PAST SURGICAL HISTORY OF WISDOM TEETH ALLERGIES Benzalkonium Chloride; Clindamycin; Doxycycline; Flagyl [Metronidazole]; Hand Museum Educator [Ethyl Alcohol (Skin Cleanser)]; Iodine; Latex, Natural Rubber; [place]; Meloxicam; Morphine; Penicillin; Prednisone; Singulair [Montelukast]; and [...] 84 tablet^Rfl: 5 multivitamin with folic acid ([facility]) 400 mcg^Take 1 tablet by mouth once daily.^Disp: 30 tablet^Rfl: 11 lactobacillus rhamnosus ([facility] [facility]) 10 billion cell -200 mg [...] (SALINE MIST) 0.65 % nasal spray^Use 1 [place] in the nose as needed for cold/allergy [...] evaluation. GERARDO Hein documented in this encounter [facility] 02-15-2023 Note HNO ID: [id number] Author: Dorys Martins APRN.MUSEUM CURATOR Service: ? Author Type: Nurse Practitioner Type: [...] Benzalkonium Chloride; Clindamycin; Doxycycline; Flagyl [Metronidazole]; Hand Museum Educator [Ethyl Alcohol (Skin Cleanser)]; Iodine; Latex, Natural Rubber; [place]; Meloxicam; Morphine; Penicillin; Prednisone; Singulair [Montelukast]; and [...] 84 tabletRfl: 5 multivitamin with folic acid ([facility]) 400 mcgTake 1 tablet by mouth once daily.Disp: 30 tabletRfl: 11 lactobacillus rhamnosus ([facility] [facility]) 10 billion cell -200 mg [...] (SALINE MIST) 0.65 % nasal sprayUse 1 [place] in the nose as needed for cold/allergy [...] mcg/actuation nasal sprayU (more content not included)... [facility] 02-12-2023 Miscellaneous Notes ----- Message from Ian Ying MD sent at 02/10/2023 7:03 AM EDT ----- Negative COVID and Influenza. documented in this encounter [facility] 02-09-2023 Note HNO ID: [id number] Author: Shara Morel APRN.JOSE ROBERTO Service: ? Author Type: Nurse Practitioner Type: Progress Notes Filed: 02/09/2023 9:14 AM Note Text: This note was created using Qwayariter. Subjective Angelica Andujar is a 42 year [...] history is provided by the patient. No electroneurodiagnostic technologist was used. Cough This is a new [...] Arthritis Asthma COPD (chronic obstructive pulmonary disease) ([facility]) Depression Obesity (BMI 30.0-34.9) CHARLES (obstructive sleep apnea) Recurrent UTI Seasonal allergies STD (sexually transmitted disease) Tobacco use disorder 05/18/2021 PAST SURGICAL HISTORY Procedure Laterality Date COLONOSCOPY W/BIOPSY SINGLE/MULTIPLE 03/02/11 ESOPHAGOGASTRODUODENOSCOPY TRANSORAL DIAGNOSTIC 11/14/2012 EGD ESOPHAGOGASTRODUODENOSCOPY TRANSORAL DIAGNOSTIC 06/02/2020 EGD MED INC ALL EX DRUG 11/2009 PAST SURGICAL HISTORY OF WISDOM TEETH ALLERGIES Benzalkonium Chloride; Clindamycin; Doxycycline; Flagyl [Metronidazole]; Hand Museum Educator [Ethyl Alcohol (Skin Cleanser)]; Iodine; Latex, Natural Rubber; [place]; Meloxicam; Morphine; Penicillin; Prednisone; Singulair [Montelukast]; and [...] 84 tabletRfl: 5 multivitamin with folic acid ([facility]) 400 mcgTake 1 tablet by mouth once daily.Disp: 30 tabletRfl: 11 lactobacillus rhamnosus ([facility]) 10 billion cell -200 mg [...] (SALINE MIST) 0.65 % nasal sprayUse 1 [place] in the nose as needed for cold/allergy [...] vomitingDisp: 60 tabletRfl: (more content not included)... [facility] 02-09-2023 Instructions Shraa Morel APRN.[facility] - 02/09/2023 9:06 AM EDT RESPIRATORY INFECTION [...] by coughs, sneezes, and direct contact, especially [id number]. A respiratory tract infection usually clears up [...] F (37 C). documented in this encounter [facility] 02-09-2023 History of Present illness Narrative This note was created using Qwayariter. Subjective Angelica Andujar is a 42 year [...] history is provided by the patient. No electroneurodiagnostic technologist was used. Cough This is a new [...] Arthritis Asthma COPD (chronic obstructive pulmonary disease) ([facility]) Depression Obesity (BMI 30.0-34.9) CHARLES (obstructive sleep apnea) Recurrent UTI Seasonal allergies STD (sexually transmitted disease) Tobacco use disorder 05/18/2021 PAST SURGICAL HISTORY Procedure Laterality Date COLONOSCOPY W/BIOPSY SINGLE/MULTIPLE 03/02/11 ESOPHAGOGASTRODUODENOSCOPY TRANSORAL DIAGNOSTIC 11/14/2012 EGD ESOPHAGOGASTRODUODENOSCOPY TRANSORAL DIAGNOSTIC 06/02/2020 EGD MED INC ALL EX DRUG 11/2009 PAST SURGICAL HISTORY OF WISDOM TEETH ALLERGIES Benzalkonium Chloride; Clindamycin; Doxycycline; Flagyl [Metronidazole]; Hand Museum Educator [Ethyl Alcohol (Skin Cleanser)]; Iodine; Latex, Natural Rubber; [place]; Meloxicam; Morphine; Penicillin; Prednisone; Singulair [Montelukast]; and [...] 84 tablet^Rfl: 5 multivitamin with folic acid ([facility]) 400 mcg^Take 1 tablet by mouth once daily.^Disp: 30 tablet^Rfl: 11 lactobacillus rhamnosus ([facility] [employer]) 10 billion cell -200 mg capsule^Take 1 [...] (SALINE MIST) 0.65 % nasal spray^Use 1 [place] in the nose as needed for cold/allergy [...] red flags Lungs CTA Hemodynamically stable Declines Jazmyne Clifford States that she cannot take Prednisone - [...] - COVID WITH FLUA+B, ROUTINE Shara Morel APRN.JOSE ROBERTO documented in this encounter [facility] 02-03-2023 Miscellaneous Notes Pt called requesting a copy of OV from 12/09/22. Pt requested to pear picker today 02-03-23. Copy in Medical Records for pear picker. Ayleen Murrieta LPN documented in this encounter [facility] 01-28-2023 Note HNO ID: [id number] Author: RT Gerard(R) Service: Radiology Author Type: [...] RT Gerard(R) January 28, 2023 4:22 PM [facility] 01-28-2023 Note HNO ID: [id number] Author: Yeni Hameed APRN.MUSEUM CURATOR Service: ? Author Type: Nurse Practitioner Type: [...] history is provided by the patient. No electroneurodiagnostic technologist was used. Neck Pain Review of Systems [...] Benzalkonium Chloride; Clindamycin; Doxycycline; Flagyl [Metronidazole]; Hand Museum Educator [Ethyl Alcohol (Skin Cleanser)]; Iodine; Latex, Natural Rubber; [place]; Meloxicam; Morphine; Penicillin; Prednisone; Singulair [Montelukast]; and [...] once daily.Disp: 30 tabletRfl: 11 lactobacillus rhamnosus ([facility]) 10 billion cell -200 mg [...] (SALINE MIST) 0.65 % nasal sprayUse 1 [place] in the nose as needed for cold/allergy [...] daily as needed (more content not included)... [facility] 01-18-2023 Note HNO ID: [id number] Author: Yeni Hameed APRN.[facility] Service: ? Author Type: Nurse Practitioner [...] history is provided by the patient. No electroneurodiagnostic technologist was used. Diarrhea Review of Systems Constitutional: [...] Benzalkonium Chloride; Clindamycin; Doxycycline; Flagyl [Metronidazole]; Hand Museum Educator [Ethyl Alcohol (Skin Cleanser)]; Iodine; Latex, Natural Rubber; [place]; Meloxicam; Morphine; Penicillin; Prednisone; Singulair [Montelukast]; and [...] 84 tabletRfl: 5 multivitamin with folic acid ([facility]) 400 mcgTake 1 tablet by mouth once daily.Disp: 30 tabletRfl: 11 lactobacillus rhamnosus ([facility] [facility]) 10 billion cell -200 mg [...] (SALINE MIST) 0.65 % nasal sprayUse 1 [place] in the nose as needed for cold/allergy [...] day if n (more content not included)... [facility] 01-18-2023 History of Present illness Narrative [...] history is provided by the patient. No electroneurodiagnostic technologist was used. Diarrhea Review of Systems Constitutional: [...] Arthritis Asthma COPD (chronic obstructive pulmonary disease) ([facility]) Depression Obesity (BMI 30.0-34.9) CHARLES (obstructive sleep apnea) Recurrent UTI Seasonal allergies STD (sexually transmitted disease) Tobacco use disorder 05/18/2021 PAST SURGICAL HISTORY Procedure Laterality Date COLONOSCOPY W/BIOPSY SINGLE/MULTIPLE 03/02/11 ESOPHAGOGASTRODUODENOSCOPY TRANSORAL DIAGNOSTIC 11/14/2012 EGD ESOPHAGOGASTRODUODENOSCOPY TRANSORAL DIAGNOSTIC 06/02/2020 EGD MED INC ALL EX DRUG 11/2009 PAST SURGICAL HISTORY OF WISDOM TEETH ALLERGIES Benzalkonium Chloride; Clindamycin; Doxycycline; Flagyl [Metronidazole]; Hand Museum Educator [Ethyl Alcohol (Skin Cleanser)]; Iodine; Latex, Natural Rubber; [place]; Meloxicam; Morphine; Penicillin; Prednisone; Singulair [Montelukast]; and [...] once daily.^Disp: 30 tablet^Rfl: 11 lactobacillus rhamnosus ([facility] [employer]) 10 billion cell -200 mg capsule^Take 1 [...] (SALINE MIST) 0.65 % nasal spray^Use 1 [place] in the nose as needed for cold/allergy [...] Hameed APRN.JOSE ROBERTO documented in this encounter [facility] 01-14-2023 Miscellaneous Notes Noted Win Mejia [...] has appt set up with PCP or SALES SUPPORT ASSISTANT. Patient said no I do not, if this continues I will just go to express care. documented in this encounter [facility] 01-06-2023 Note HNO ID: [id number] Author: Mima Horner LPN Service: ? Author Type: ? Type: Progress Notes Filed: 01/06/2023 11:16 AM Note Text: Patient identified by name and date of . Angelica Andujar is here for a Depo Provera injection. Patient brought medication. Date last injected: 10/14/22 Depo-Provera, 150 mg, administered IM left upper quadrant gluteus, Lot # [id number], expiration date 01/02/27. Depo-Provera was given without [...] See medication note for lot#, exp date. [facility] 01-06-2023 Instructions Mima Horner LPN - [...] a copy. 01/06/2023 documented in this encounter [facility] 01-06-2023 History of Present illness Narrative Patient identified by name and date of . Angelica Andujar is here for a Depo Provera injection. Patient brought medication. Date last injected: 10/14/22 Depo-Provera, 150 mg, administered IM left upper quadrant gluteus, Lot # [id number], expiration date 01/02/27. Depo-Provera was given without [...] lot#, exp date. documented in this encounter [facility] 12-30-2022 Note HNO ID: [id number] Author: Bernadine Manrique Pss Service: ? Author Type: ? Type: Progress Notes Filed: 12/30/2022 12:43 PM Note Text: POPULATION HEALTH NAVIGATION OUTREACH Action/I Patient Outreach: Left voicemail for patient to call back to schedule in RST. (please see ROI² order dated for (11/15/2022). Any agent can assist with scheduling. Patient Identified by Name and : NO Outreach Outcome/Action Unable to reach patient: Left message Did you use a PCP flex slot to schedule this appointment? No Reason for Outreach Care Gap or Scheduling/Wellness visits Payer: Payor: [facility] MEDICAID / Plan: [facility] [employer] MEDICAID [facility] / Product Type: Medicaid / Care Gap Reviewed:: Specialty Scheduling Reminder: Reminder note to check Health Maintenance for items below Health Maintenance items due: PNEUMOCOCCAL(1 - PCV) Never done HEPATITIS B(2 of 3 - 19+ 3-dose series) due on 04/16/2011 COVID-19 VACCINE(2 - Pfizer series) due on 09/15/2021 MAMMOGRAM due on 08/19/2022 DEPRESSION ASSESSMENT Never done Navigation Signature: Bernadine Manrique [facility] December 30, 2022 12:43 PM [facility] 12-30-2022 Note Patient Outreach (NE TNAV) ANGELICA ANDUJAR ([id number]) 1980 F Date Time Provider Department 12/30/22 NO PCP NETNAV During your visit today, we recorded the following information about you: Bernadine Paizain [facility] 12/30/2022 12:43 PM Signed POPULATION HEALTH NAVIGATION OUTREACH Action/ Patient Outreach: Left voicemail for patient to call back to schedule in RST. (please see ROI² order dated for (11/15/2022). Any agent can assist with scheduling. Patient Identified by Name and : NO Outreach Outcome/Action Unable to reach patient: Left message Did you use a PCP flex slot to schedule this appointment? No Reason for Outreach Care Gap or Scheduling/Wellness visits Payer: Payor: [facility] MEDICAID / Plan: [facility] [employer] MEDICAID [facility] / Product Type: Medicaid / Care Gap Reviewed:: Specialty Scheduling Reminder: Reminder note to check Health Maintenance for items below Health Maintenance items due: PNEUMOCOCCAL(1 - PCV) Never done HEPATITIS B(2 of 3 - 19+ 3-dose series) due on 04/16/2011 COVID-19 VACCINE(2 - Pfizer series) due on 09/15/2021 MAMMOGRAM due on 08/19/2022 DEPRESSION ASSESSMENT Never done Navigation Signature: Bernadine Paizain [facility] December 30, 2022 12:43 PM Allergies As of Date: 12/30/2022 Noted Allergy Reaction BENZALKONIUM CHLORIDE 09/08/2012 14 - Other: See Comments Comments: Skin irritations CLINDAMYCIN 03/27/2018 8 - GI Upset DOXYCYCLINE 12/13/2012 8 - GI Upset Comments: stomach cramps FLAGYL (METRONIDAZOLE) 04/11/2018 4 - Hives HAND SPORTS CARTOONIST (ETHYL ALCOHOL (SK*11/04/2009 2 - Rash Comments: PT HAS SENSITIVE SKIN. O.K. FOR MEDICAL PROFESSIONAL TO USE HAND SPORTS CARTOONIST AND THEN TOUCH HER, BUT SHE HERSELF DOES NOT USE IT. IODINE 02/18/2011 2 - Rash LATEX, NATURAL RUBBER 03/17/2018 2 - Rash Comments: Local itching with contact and rash [place]SH[place]TA 12/07/2017 5 - Intolerance Comments: Sore throat [...] Date Reviewed: 12/29/2022 Reviewed by: Main Hamilton APRN.MUSEUM CURATOR - Fully Assessed Prescriptions as of 12/30/2022 [...] DAILY DOSE - multivitamin with folic acid ([facility]) 400 mcg Take 1 tablet by mouth once daily. - lactobacillus rhamnosus ([facility] [facility]) 10 billion cell -200 mg [...] MIST) 0.65 % nasal spray Use 1 [place] in the nose as needed for cold/allergy [...] in each n (more content not included)... [facility] 12-30-2022 Miscellaneous Notes Pt returns calls [...] provider thank you documented in this encounter [facility] 12-30-2022 Miscellaneous Notes Phone call placed, patient advised (see prior provider encounter) Patient verbalized understanding, agreed with plan of care. Fidelia Murrieta LPN So far patient's blood work is stable and mono was negative. Will call with the last set of labs come back documented in this encounter [facility] 12-30-2022 Miscellaneous Notes Patient was in express care yesterday, cancelled appointment today. TC to pt. LM to call office, ask for triage nurse to schedule a 40 min appt. with one of her providers. Yulissa Nicole LPN documented in this encounter [facility] 12-29-2022 Note HNO ID: [id number] Author: Main Hamilton APRN.JOSE ROBERTO Service: ? Author Type: Nurse Practitioner Type: Progress Notes Filed: 12/29/2022 12:29 PM Note Text: Subjective HPI Nontoxic female presents urgent care chief complaint nausea vomiting body aches chills loose stool cough sore throat. States symptoms started after [facility]. States to individuals that she was [...] Arthritis Asthma COPD (chronic obstructive pulmonary disease) ([facility]) Depression Obesity (BMI 30.0-34.9) CHARLES (obstructive sleep apnea) Recurrent UTI Seasonal allergies STD (sexually transmitted disease) Tobacco use disorder 05/18/2021 PAST SURGICAL HISTORY Procedure Laterality Date COLONOSCOPY W/BIOPSY SINGLE/MULTIPLE 03/02/11 ESOPHAGOGASTRODUODENOSCOPY TRANSORAL DIAGNOSTIC 11/14/2012 EGD ESOPHAGOGASTRODUODENOSCOPY TRANSORAL DIAGNOSTIC 06/02/2020 EGD MED INC ALL EX DRUG 11/2009 PAST SURGICAL HISTORY OF WISDOM TEETH ALLERGIES Benzalkonium Chloride; Clindamycin; Doxycycline; Flagyl [Metronidazole]; Hand Museum Educator [Ethyl Alcohol (Skin Cleanser)]; Iodine; Latex, Natural Rubber; [place]; Meloxicam; Morphine; Penicillin; Prednisone; Singulair [Montelukast]; and [...] 84 tabletRfl: 5 multivitamin with folic acid ([facility]) 400 mcgTake 1 tablet by mouth once daily.Disp: 30 tabletRfl: 11 lactobacillus rhamnosus ([facility]) 10 billion cell -200 mg [...] (SALINE MIST) 0.65 % nasal sprayUse 1 [place] in the nose as needed for cold/allergy [...] daily.Disp: 30 capsuleRfl (more content not included)... [facility] 12-29-2022 History of Present illness Narrative Subjective HPI Nontoxic female presents urgent care chief complaint nausea vomiting body aches chills loose stool cough sore throat. States symptoms started after getting discharged [facility]. States to individuals that she was [...] Arthritis Asthma COPD (chronic obstructive pulmonary disease) ([facility]) Depression Obesity (BMI 30.0-34.9) CHARLES (obstructive sleep apnea) Recurrent UTI Seasonal allergies STD (sexually transmitted disease) Tobacco use disorder 05/18/2021 PAST SURGICAL HISTORY Procedure Laterality Date COLONOSCOPY W/BIOPSY SINGLE/MULTIPLE 03/02/11 ESOPHAGOGASTRODUODENOSCOPY TRANSORAL DIAGNOSTIC 11/14/2012 EGD ESOPHAGOGASTRODUODENOSCOPY TRANSORAL DIAGNOSTIC 06/02/2020 EGD MED INC ALL EX DRUG 11/2009 PAST SURGICAL HISTORY OF WISDOM TEETH ALLERGIES Benzalkonium Chloride; Clindamycin; Doxycycline; Flagyl [Metronidazole]; Hand Museum Educator [Ethyl Alcohol (Skin Cleanser)]; Iodine; Latex, Natural Rubber; [place]; Meloxicam; Morphine; Penicillin; Prednisone; Singulair [Montelukast]; and [...] 84 tablet^Rfl: 5 multivitamin with folic acid ([facility]) 400 mcg^Take 1 tablet by mouth once daily.^Disp: 30 tablet^Rfl: 11 lactobacillus rhamnosus ([facility] [facility]) 10 billion cell -200 mg [...] (SALINE MIST) 0.65 % nasal spray^Use 1 [place] in the nose as needed for cold/allergy [...] of care. This note was generated using Fabricly software. It may contain errors in wording, punctuation, or spelling. Main Hamilton APRN.JOSE ROBERTO documented in this encounter [facility] 12-27-2022 Miscellaneous Notes OK to refill [...] 01/13/2021 18 Please advise. Thank you. Maureen Benjamin RN documented in this encounter [facility] 12-13-2022 Miscellaneous Notes Pt notified of results. Adrienne Moctezuma LPN Left message to call office. Linda Padilla RN Please let the pt know that her urine culture is negative for infection. Tete Romero APRN.JOSE ROBERTO documented in this encounter [facility] 12-10-2022 Miscellaneous Notes Spoke with pt [...] Geovanna Carmichael APRN.CNP documented in this encounter [facility] 12-09-2022 Note HNO ID: [id number] Author: Ian Ying MD Service: ? Author Type: Physician Type: Progress Notes Filed: 12/09/2022 12:10 PM Note Text: Patient presents with: Derm Problem: Clearance for eczema HPI: Patient presents for skin clearance to be admitted to an inpatient psychiatric facility ([facility] near [place]). She denies suicidal or homicidal ideation. States [...] 84 tabletRfl: 5 multivitamin with folic acid ([facility]) 400 mcgTake 1 tablet by mouth once daily.Disp: 30 tabletRfl: 11 lactobacillus rhamnosus ([facility] [facility]) 10 billion cell -200 mg [...] (SALINE MIST) 0.65 % nasal sprayUse 1 [place] in the nose as needed for cold/allergy [...] Upset stomach cramps Flagyl [Metronidazo* Hives Hand Museum Educator [Eth* Rash PT HAS SENSITIVE SKIN. O.K. FOR MEDICAL PROFESSIONAL TO USE HAND SPORTS CARTOONIST (more content not included)... [facility] 12-09-2022 History of Present illness Narrative Patient presents with: Derm Problem: Clearance for eczema HPI: Patient presents for skin clearance to be admitted to an inpatient psychiatric facility ([facility] near [place]). She denies suicidal or homicidal ideation. States [...] once daily.^Disp: 30 tablet^Rfl: 11 lactobacillus rhamnosus ([facility] [employer]) 10 billion cell -200 mg capsule^Take 1 [...] (SALINE MIST) 0.65 % nasal spray^Use 1 [place] in the nose as needed for cold/allergy [...] Upset stomach cramps Flagyl [Metronidazo* Hives Hand Museum Educator [Eth* Rash PT HAS SENSITIVE SKIN. O.K. FOR MEDICAL PROFESSIONAL TO USE HAND SPORTS CARTOONIST AND THEN TOUCH HER, BUT SHE HERSELF DOES NOT USE IT. Iodine Rash Latex, Natural Rubb* Rash Local itching with contact and rash [place] Intolerance Sore throat Meloxicam Unknown Morphine Itching [...] I spoke with the admission line from [facility]. She needed a letter confirming her rash [...] Ian Ying MD documented in this encounter [facility] 12-01-2022 Note Patient Outreach (IN TMMN) ANGELICA ANDUJAR ([id number]) 1980 F Date Time Provider Department 12/01/22 WIN MEJIA During your visit today, we recorded the following information about you: Allergies As of Date: 12/01/2022 Noted Allergy Reaction BENZALKONIUM CHLORIDE 09/08/2012 14 - Other: See Comments Comments: Skin irritations CLINDAMYCIN 03/27/2018 8 - GI Upset DOXYCYCLINE 12/13/2012 8 - GI Upset Comments: stomach cramps FLAGYL (METRONIDAZOLE) 04/11/2018 4 - Hives HAND SPORTS CARTOONIST (ETHYL ALCOHOL (SK*11/04/2009 2 - Rash Comments: PT HAS SENSITIVE SKIN. O.K. FOR MEDICAL PROFESSIONAL TO USE HAND SPORTS CARTOONIST AND THEN TOUCH HER, BUT SHE HERSELF DOES NOT USE IT. IODINE 02/18/2011 2 - Rash LATEX, NATURAL RUBBER 03/17/2018 2 - Rash Comments: Local itching with contact and rash COUSH[place]TA 12/07/2017 5 - Intolerance Comments: Sore throat [...] for screening mammogram for breast cancer [Z12.31] Order(s):[facility] SCREENING [[id number]] Order #: [id number] FUTURE Prescriptions as of 12/06/2022 - pantoprazole [...] DAILY DOSE - multivitamin with folic acid ([facility]) 400 mcg Take 1 tablet by mouth once daily. - lactobacillus rhamnosus ([facility]) 10 billion cell -200 mg [...] MIST) 0.65 % nasal spray Use 1 [place] in the nose as needed for cold/allergy [...] 10, 2018 Janessa (more content not included)... [facility] 11-22-2022 Miscellaneous Notes Spoke with pt and information listed below given. Pt verbalizes understanding. Ayleen Murrieta LPN Phone call placed brief message to contact a nurse to review results. Fidelia Murrieta LPN Please notify no fungus on testing at 3 days. Will call if becomes positive. F/u with pcp if s/s persist. documented in this encounter [facility] 11-22-2022 Miscellaneous Notes Spoke with pt [...] phone. Please advise documented in this encounter [facility] 11-21-2022 Miscellaneous Notes Reason for call: [...] antibiotics. 7. : Protocols used: No Guideline [id number] documented in this encounter [facility] 11-19-2022 Miscellaneous Notes Consult for neurology was placed. Patient may call to schedule an appointment at her convenience.Thank you. Prabha Springer APRN.JOSER OBERTO Spoke with pt and information from rizwana phone encounter given. Pt verbalizes understanding. Pt would like to see neurology. Regarding both legs. Pt asking for a consult to be placed and then call her to get an apt scheduled. Her voicemail not working properly may need to call her twice. Ayleen Murrieta LPN documented in this encounter [facility] 11-19-2022 Miscellaneous Notes Left detailed message per patient's note in chart to leave a detailed message. Juana Lin RN Orders filed. Tete Romero APRN.JOSE ROBERTO Patient calling c/o dysuria. No other urinary symptoms. Asking for lab urine orders to be placed for her to leave a sample. Patient having phone problems. Call her twice if she does not answer. Kristi Cummins RN documented in this encounter [facility] 11-17-2022 Note HNO ID: [id number] Author: Shara Morel APRN.CNP Service: ? Author Type: Nurse Practitioner Type: Progress Notes Filed: 11/17/2022 6:06 PM Note Text: This note was created using Qwayariter. Subjective Angelica Andujar is a 42 year old female. 42 years old female with PMH COPD, CHARLES, GERD, DM, presented with complains of acute illness started 10 days ago Illness and URI Acute onset 10 days CULINARY ASSISTANT. +yellow nasal discharges +congestion +chills +sore throat +decreased energy level +right ear hurting +headache off and on Denies chest pain, palpitations, SOB, edema to lower extremities Denies abdominal pain, diarrhea, nausea, vomiting, urinary symptoms Leg tremors have a new left leg shaking, 2 hours CULINARY ASSISTANT Patient reported new tremor/shaking in her left leg, She does endorse that she has shaking of her upper extremities related to her anti psychotics. The tremor is intermittent. Denies trauma or injury. Denies weakness. Patient also complaining of tongue pain. Ongoing for past several days. No trauma or injury. The history is provided by the patient. No electroneurodiagnostic technologist was used. Sore Throat This is a [...] Benzalkonium Chloride; Clindamycin; Doxycycline; Flagyl [Metronidazole]; Hand Museum Educator [Ethyl Alcohol (Skin Cleanser)]; Iodine; Latex, Natural Rubber; [place]; Meloxicam; Morphine; Penicillin; Prednisone; Singulair [Montelukast]; and [...] once daily.Disp: 30 tabletRfl: 11 lactobacillus rhamnosus ([facility]) 10 billion cell -200 mg [...] (SALINE MIST) 0.65 % nasal sprayUse 1 Livingston in the nose as needed for cold/allergy [...] four times katie (more content not included)... [facility] 11-17-2022 Miscellaneous Notes Patient notified of results and provider's instructions. Patient verbalizes understanding. Carolina Bell LPN Images from the original note were not included. Yogi Espinoza 29 minutes ago (3:46 PM) Patient has [...] reviewed. Ayleen Medina documented in this encounter [facility] 11-17-2022 History of Present illness Narrative This note was created using Qwayariter. Subjective Angelica Andujar is a 42 year old female. 42 years old female with PMH COPD, CHARLES, GERD, DM, presented with complains of acute illness started 10 days ago Illness and URI Acute onset 10 days CULINARY ASSISTANT. +yellow nasal discharges +congestion +chills +sore throat +decreased energy level +right ear hurting +headache off and on Denies chest pain, palpitations, SOB, edema to lower extremities Denies abdominal pain, diarrhea, nausea, vomiting, urinary symptoms Leg tremors have a new left leg shaking, 2 hours CULINARY ASSISTANT Patient reported new tremor/shaking in her left leg, She does endorse that she has shaking of her upper extremities related to her anti psychotics. The tremor is intermittent. Denies trauma or injury. Denies weakness. Patient also complaining of tongue pain. Ongoing for past several days. No trauma or injury. The history is provided by the patient. No electroneurodiagnostic technologist was used. Sore Throat This is a [...] Arthritis Asthma COPD (chronic obstructive pulmonary disease) ([facility]) Depression Obesity (BMI 30.0-34.9) CHARLES (obstructive sleep apnea) Recurrent UTI Seasonal allergies STD (sexually transmitted disease) Tobacco use disorder 05/18/2021 PAST SURGICAL HISTORY Procedure Laterality Date COLONOSCOPY W/BIOPSY SINGLE/MULTIPLE 03/02/11 ESOPHAGOGASTRODUODENOSCOPY TRANSORAL DIAGNOSTIC 11/14/2012 EGD ESOPHAGOGASTRODUODENOSCOPY TRANSORAL DIAGNOSTIC 06/02/2020 EGD MED INC ALL EX DRUG 11/2009 PAST SURGICAL HISTORY OF WISDOM TEETH ALLERGIES Benzalkonium Chloride; Clindamycin; Doxycycline; Flagyl [Metronidazole]; Hand Museum Educator [Ethyl Alcohol (Skin Cleanser)]; Iodine; Latex, Natural Rubber; [place]; Meloxicam; Morphine; Penicillin; Prednisone; Singulair [Montelukast]; and [...] 84 tablet^Rfl: 5 multivitamin with folic acid ([facility] MULTIVITAMIN) 400 mcg^Take 1 tablet by mouth once daily.^Disp: 30 tablet^Rfl: 11 lactobacillus rhamnosus ([facility] [employer] [facility]) 10 billion cell -200 mg [...] (SALINE MIST) 0.65 % nasal spray^Use 1 [place] in the nose as needed for cold/allergy [...] worsening of symptoms Diana Bustos TEACHING PROVIDER (Physician/PA/SANITATION TRUCK DRIVER) NOTE OF PERSONAL INVOLVEMENT IN CARE: I have personally seen and examined the patient and performed the medical decision-making components. I have reviewed the Advanced Practice Registered Nurse (SANITATION TRUCK DRIVER) Student's documentation and verified the findings in the note as written. Any additions or changes are noted in bold/italics. Signature: Shara Morel Date: 11/17/2022 Time: 6:05 PM documented in this encounter [facility] 11-17-2022 Instructions hSara Morel APRN.JOSE ROBERTO - 11/17/2022 3:39 PM EDT FOLLOW UP [...] even if the symptoms go away. 2. Kjbn-[id number]-[id number] pain medication may be taken or other [...] him or her). documented in this encounter [facility] 11-17-2022 Miscellaneous Notes Left a message [...] leaves this evening. Call back number is [phone]. documented in this encounter [facility] 11-15-2022 Miscellaneous Notes Addended by: TETE ROMERO on: 11/15/2022 02:54 PM Modules accepted: Orders Order filed. Tete Romero APRN.JOSE ROBERTO Addended by: ELIDA OSEI LPN on: 11/15/2022 [...] for her at that point. Tete Romero APRN.JOSE ROBERTO Patient had depo provera injection on 10/14/2022 and called stating that she has had bright red spotting that she notices when wipes after using restroom X 4 days. Is c/o menstrual like cramping. Denies dysuria. Patient stated that she has not had spotting for over a year and is concerned. Has been getting depo injections since 2017. documented in this encounter [facility] 11-15-2022 Note Patient Outreach (AC CC) ANGELICA ANDUJAR ([id number]) 1980 F Date Time Provider Department 11/15/22 PCP (HISTORICAL) [facility] During your visit today, we recorded the following information about you: Aby Desirjose l 11/15/2022 11:39 AM Signed POPULATION HEALTH NAVIGATION OUTREACH Action/FYI Left 2nd Patient Identified by Name and : NO Outreach Outcome/Action Unable to reach patient: Left message Did you use a PCP flex slot to schedule this appointment? No Reason for Outreach Care Gap or Scheduling/Wellness visits Payer: Payor: [facility] MEDICAID / Plan: [facility] COMMUNITY PLAN MEDICAID [facility] / Product Type: Medicaid / [...] FLAGYL (METRONIDAZOLE) 04/11/2018 4 - Hives HAND SPORTS CARTOONIST (ETHYL ALCOHOL (SK*11/04/2009 2 - Rash Comments: PT HAS SENSITIVE SKIN. O.K. FOR MEDICAL PROFESSIONAL TO USE HAND SPORTS CARTOONIST AND THEN TOUCH HER, BUT SHE HERSELF DOES NOT USE IT. IODINE 02/18/2011 2 - Rash LATEX, NATURAL RUBBER 03/17/2018 2 - Rash Comments: Local itching with contact and rash [place] 12/07/2017 5 - Intolerance Comments: Sore throat [...] DAILY DOSE - multivitamin with folic acid ([facility] MULTIVITAMIN) 400 mcg Take 1 tablet by mouth once daily. - lactobacillus rhamnosus ([facility]) 10 billion cell -200 mg capsule Take [...] MIST) 0.65 % nasal spray Use 1 [place] in the nose as needed for cold/allergy [...] tablet by mouth once daily. - pantoprazole (GUNNER (more content not included)... [facility] 11-15-2022 Note HNO ID: [id number] Author: Aby De Jesus Service: ? Author Type: ? Type: Progress Notes Filed: 11/15/2022 11:39 AM Note Text: POPULATION HEALTH NAVIGATION OUTREACH Action/FYI Left 2nd Patient Identified by Name and : NO Outreach Outcome/Action Unable to reach patient: Left message Did you use a PCP flex slot to schedule this appointment? No Reason for Outreach Care Gap or Scheduling/Wellness visits Payer: Payor: [facility] MEDICAID / Plan: [employer] [place] / Product [...] De Jesus November 15, 2022 11:39 AM [facility] 11-15-2022 History of Present illness Narrative POPULATION HEALTH NAVIGATION OUTREACH Action/FYI Left 2nd Patient Identified by Name and : NO Outreach Outcome/Action Unable to reach patient: Left message Did you use a PCP flex slot to schedule this appointment? No Reason for Outreach Care Gap or Scheduling/Wellness visits Payer: Payor: [facility] MEDICAID / Plan: [facility] COMMUNITY PLAN MEDICAID [facility] / Product Type: Medicaid / [...] 2022 11:39 AM documented in this encounter [facility] 11-13-2022 Miscellaneous Notes Patient has called in and has been notified of results and msg. Leatha Peñaloza PSS 11/13/2022 Please notify of negative flu, rsv, and covid test. Continue comfort measures for symptoms as you would for a cold. Any worsening symptoms follow up with PCP or ER. Geovanna Carmichael APRN.JOSE ROBERTO documented in this encounter [facility] 11-12-2022 Note HNO ID: [id number] Author: Dorys Martins APRN.JOSE ROBERTO Service: ? Author Type: Nurse [...] Benzalkonium Chloride; Clindamycin; Doxycycline; Flagyl [Metronidazole]; Hand Museum Educator [Ethyl Alcohol (Skin Cleanser)]; Iodine; Latex, Natural Rubber; [place]; Meloxicam; Morphine; Penicillin; Prednisone; Singulair [Montelukast]; and [...] 84 tabletRfl: 5 multivitamin with folic acid ([facility] MULTIVITAMIN) 400 mcgTake 1 tablet by mouth once daily.Disp: 30 tabletRfl: 11 lactobacillus rhamnosus ([facility] [employer] [facility]) 10 billion cell -200 mg [...] (SALINE MIST) 0.65 % nasal sprayUse 1 [place] in the nose as needed for cold/allergy [...] MOUTH DAILYDisp: 30 (more content not included)... [facility] 11-12-2022 Instructions Dorys Martins APRN.JOSE ROBERTO - 11/12/2022 3:54 PM EST ASSESSMENT/PLAN: 1. [...] Discussed expected course of illness Dorys Martins APRN.MUSEUM CURATOR documented in this encounter [facility] 11-12-2022 History of Present illness Narrative [...] Benzalkonium Chloride; Clindamycin; Doxycycline; Flagyl [Metronidazole]; Hand Museum Educator [Ethyl Alcohol (Skin Cleanser)]; Iodine; Latex, Natural Rubber; [place]; Meloxicam; Morphine; Penicillin; Prednisone; Singulair [Montelukast]; and [...] 84 tablet^Rfl: 5 multivitamin with folic acid ([facility] MULTIVITAM[facility]) 400 mcg^Take 1 tablet by mouth once daily.^Disp: 30 tablet^Rfl: 11 lactobacillus rhamnosus ([facility] [employer]) 10 billion cell -200 mg capsule^Take 1 [...] (SALINE MIST) 0.65 % nasal spray^Use 1 [place] in the nose as needed for cold/allergy [...] Dorys Martins APRN.CNP documented in this encounter [facility] 11-11-2022 Miscellaneous Notes The following approved medication requests have been transmitted electronically. Requested Prescriptions Signed Prescriptions Disp Refills dextromethorphan-guaiFENesin (ROBITUSSIN COUGH-CHEST DAVID DM) 5-50 mg/5 mL liqd 236 mL 1 Sig: Take 10 mL by mouth every 6 hours as needed (Cough) for up to 10 days. Authorizing Provider: PRABHA SPRINGER APRN.CNP Patient calls to request prescription for Robitussin be sent to [facility] because [facility] doesn't have it in stock. Pended. Brii Groves RN documented in this encounter [facility] 11-10-2022 Note Patient Outreach (AC CC) ANGELICA ANDUJAR ([id number]) 1980 F Date Time Provider Department 11/10/22 PCP (HISTORICAL) [facility] During your visit today, we recorded the following information about you: Aby De Jesus 11/10/2022 11:19 AM Signed POPULATION HEALTH NAVIGATION OUTREACH Action/FYI Left vm Patient Identified by Name and : NO Outreach Outcome/Action Unable to reach patient: Left message Did you use a PCP flex slot to schedule this appointment? No Reason for Outreach Care Gap or Scheduling/Wellness visits Payer: Payor: [facility] MEDICAID / Plan: [facility] COMMUNITY PLAN MEDICAID [facility] / Product Type: Medicaid / [...] FLAGYL (METRONIDAZOLE) 04/11/2018 4 - Hives HAND SPORTS CARTOONIST (ETHYL ALCOHOL (SK*11/04/2009 2 - Rash Comments: PT HAS SENSITIVE SKIN. O.K. FOR MEDICAL PROFESSIONAL TO USE HAND SPORTS CARTOONIST AND THEN TOUCH HER, BUT SHE HERSELF DOES NOT USE IT. IODINE 02/18/2011 2 - Rash LATEX, NATURAL RUBBER 03/17/2018 2 - Rash Comments: Local itching with contact and rash [place] 12/07/2017 5 - Intolerance Comments: Sore throat [...] Date Reviewed: 11/10/2022 Reviewed by: Prabha Springer APRN.MUSEUM CURATOR - Fully Assessed Prescriptions as of 11/10/2022 [...] DAILY DOSE - multivitamin with folic acid ([facility] MULTIVITAMIN) 400 mcg Take 1 tablet by mouth once daily. - lactobacillus rhamnosus ([facility]) 10 billion cell -200 mg capsule Take [...] MIST) 0.65 % nasal spray Use 1 [place] in the nose as needed for cold/allergy [...] mg tablet ta (more content not included)... [facility] 11-10-2022 Note HNO ID: [id number] Author: Aby De Jesus Service: ? Author Type: ? Type: Progress Notes Filed: 11/10/2022 11:19 AM Note Text: POPULATION HEALTH NAVIGATION OUTREACH Action/FYI Left vm Patient Identified by Name and : NO Outreach Outcome/Action Unable to reach patient: Left message Did you use a PCP flex slot to schedule this appointment? No Reason for Outreach Care Gap or Scheduling/Wellness visits Payer: Payor: [facility] MEDICAID / Plan: [employer] [place] / Product [...] De Jesus November 10, 2022 11:19 AM [facility] 11-10-2022 History of Present illness Narrative POPULATION HEALTH NAVIGATION OUTREACH Action/FYI Left vm Patient Identified by Name and : NO Outreach Outcome/Action Unable to reach patient: Left message Did you use a PCP flex slot to schedule this appointment? No Reason for Outreach Care Gap or Scheduling/Wellness visits Payer: Payor: [facility] MEDICAID / Plan: [facility] PLAN MEDICAID [facility] / Product Type: Medicaid / [...] 2022 11:19 AM documented in this encounter [facility] 11-10-2022 Note HNO ID: [id number] Author: RT Gerard(R) Service: Radiology Author Type: [...] RT Gerard(R) November 10, 2022 9:09 AM [facility] 11-10-2022 Note HNO ID: [id number] Author: Prabha Springer APRN.MUSEUM CURATOR Service: ? Author Type: Nurse Practitioner Type: [...] Reason for visit: Cold Symptoms Which facility: [facility] ER Date of visit: 2022 Diagnosis: [...] Arthritis Asthma COPD (chronic obstructive pulmonary disease) ([facility]) Depression Obesity (BMI 30.0-34.9) CHARLES (obstructive sleep apnea) Recurrent UTI Seasonal allergies STD (sexually transmitted disease) Tobacco use disorder 05/18/2021 PAST SURGICAL HISTORY Procedure Laterality Date COLONOSCOPY W/BIOPSY SINGLE/MULTIPLE 03/02/11 ESOPHAGOGASTRODUODENOSCOPY TRANSORAL DIAGNOSTIC 11/14/2012 EGD ESOPHAGOGASTRODUODENOSCOPY TRANSORAL DIAGNOSTIC 06/02/2020 EGD MED INC ALL EX DRUG 11/2009 PAST SURGICAL HISTORY OF WISDOM TEETH ALLERGIES Benzalkonium Chloride; Clindamycin; Doxycycline; Flagyl [Metronidazole]; Hand Museum Educator [Ethyl Alcohol (Skin Cleanser)]; Iodine; Latex, Natural Rubber; [place]; Meloxicam; Morphine; Penicillin; Prednisone; Singulair [Montelukast]; and [...] DOWN DAILY DOSE multivitamin with folic acid ([facility] MULTIVITAMIN) 400 mcg Take 1 tablet by mouth once daily. lactobacillus rhamnosus ([facility] [employer] [facility]) 10 billion cell -200 mg [...] MIST) 0.65 % nasal spray Use 1 [place] in the nose as needed for cold/allergy [...] once daily. lamoTR (more content not included)... [facility] 11-10-2022 Miscellaneous Notes Reason for Call: [...] : LMP: on Depo Protocols used: Sore [id number] documented in this encounter [facility] 11-09-2022 Miscellaneous Notes OK to refill [...] Adrienne Moctezuma LPN documented in this encounter [facility] 11-08-2022 Note HNO ID: [id number] Author: RT Kilo(R) Service: Nuclear Medicine Author Type: Technologist Type: [...] RT Kilo(R) November 08, 2022 7:02 PM [facility] 11-08-2022 Note HNO ID: [id number] Author: Ian Ying MD Service: ? Author [...] 84 tabletRfl: 5 multivitamin with folic acid ([facility] MULTIVITAMIN) 400 mcgTake 1 tablet by mouth once daily.Disp: 30 tabletRfl: 11 lactobacillus rhamnosus ([facility] [employer] [facility]) 10 billion cell -200 mg [...] (SALINE MIST) 0.65 % nasal sprayUse 1 [place] in the nose as needed for cold/allergy [...] Upset stomach cramps Flagyl [Metronidazo* Hives Hand Museum Educator [Eth* Rash PT HAS SENSITIVE SKIN. O.K. FOR MEDICAL PROFESSIONAL T (more content not included)... [facility] 11-08-2022 History of Present illness Narrative [...] 84 tablet^Rfl: 5 multivitamin with folic acid ([facility] MULTIVITAMIN) 400 mcg^Take 1 tablet by mouth once daily.^Disp: 30 tablet^Rfl: 11 lactobacillus rhamnosus ([facility] [employer]) 10 billion cell -200 mg capsule^Take 1 [...] (SALINE MIST) 0.65 % nasal spray^Use 1 [place] in the nose as needed for cold/allergy [...] Upset stomach cramps Flagyl [Metronidazo* Hives Hand Museum Educator [Eth* Rash PT HAS SENSITIVE SKIN. O.K. FOR MEDICAL PROFESSIONAL TO USE HAND SPORTS CARTOONIST AND THEN TOUCH HER, BUT SHE HERSELF DOES NOT USE IT. Iodine Rash Latex, Natural Rubb* Rash Local itching with contact and rash [place] Intolerance Sore throat Meloxicam Unknown Morphine Itching [...] Ian Ying MD documented in this encounter [facility] 11-08-2022 Miscellaneous Notes Keep scheduled appointment. [...] Lilian Marks RN documented in this encounter [facility] 2022 Miscellaneous Notes Reason for Call: [...] fever 7. RESPIRATORY STATUS: expiratory wheeze 8. [id number]-[id number]: worse 9. HIGH RISK DISEASE: asthma and COPD 10. VACCINE: one vaccine 2 years ago 11. BOOSTER: no booster 12. : na; patient is on the depo shot 13. OTHER SYMPTOMS: sore throat, body aches, fatigue 14. O2 SATURATION MONITOR: na Protocols used: Coronavirus (COVID-19) Diagnosed or [id number] documented in this encounter [facility] 11-04-2022 Note HNO ID: [id number] Author: Prabha Springer APRN.MUSEUM CURATOR Service: ? Author Type: Nurse Practitioner Type: Progress Notes Filed: 11/04/2022 3:26 PM Note Text: This is a 41 year old female who presents today with: No chief complaint on file. HISTORY OF PRESENT ILLNESS: Angelica Andujar is a 41 year old female. No chief complaint on file. HOSPITAL/ER FOLLOW UP: Reason for visit: Dental pain Which facility: [facility] ER Date of visit: 10/31/2022 Diagnosis: Dental Testing done: none Treatment given: Azithromycin, instructed to follow up with dentist in 3-5 days. Current symptoms: Refer that bottom right side/Gums are strapping machine tender and swollen. Finished zpack. Some chills but no fever. Has dental appt next week. PAST MEDICAL HISTORY: PAST MEDICAL HISTORY Diagnosis Date 11/2009 Anxiety Arthritis Asthma COPD (chronic obstructive pulmonary disease) ([facility]) Depression Obesity (BMI 30.0-34.9) CHARLES (obstructive sleep apnea) Recurrent UTI Seasonal allergies STD (sexually transmitted disease) Tobacco use disorder 05/18/2021 PAST SURGICAL HISTORY Procedure Laterality Date COLONOSCOPY W/BIOPSY SINGLE/MULTIPLE 03/02/11 ESOPHAGOGASTRODUODENOSCOPY TRANSORAL DIAGNOSTIC 11/14/2012 EGD ESOPHAGOGASTRODUODENOSCOPY TRANSORAL DIAGNOSTIC 06/02/2020 EGD MED INC ALL EX DRUG 11/2009 PAST SURGICAL HISTORY OF WISDOM TEETH ALLERGIES Benzalkonium Chloride; Clindamycin; Doxycycline; Flagyl [Metronidazole]; Hand Museum Educator [Ethyl Alcohol (Skin Cleanser)]; Iodine; Latex, Natural Rubber; [place]; Meloxicam; Morphine; Penicillin; Prednisone; Singulair [Montelukast]; and [...] DOWN DAILY DOSE multivitamin with folic acid ([facility] MULTIVITAMIN) 400 mcg Take 1 tablet by mouth once daily. lactobacillus rhamnosus ([facility] [employer] [facility]) 10 billion cell -200 mg [...] MIST) 0.65 % nasal spray Use 1 [place] in the nose as needed for cold/allergy [...] Medications Medication Dose (more content not included)... [facility] 11-04-2022 Instructions Prabha Springer APRN.JOSE ROBERTO - 11/04/2022 2:38 PM EST Keep scheduled appointment with dentist next week. Good mouth hygiene May use warm salt water gargle If symptoms get worse start another round of Azithromycin Follow up as needed. Biotene mouth wash documented in this encounter [facility] 11-04-2022 History of Present illness Narrative This is a 41 year old female who presents today with: No chief complaint on file. HISTORY OF PRESENT ILLNESS: Angelica Andujar is a 41 year old female. No chief complaint on file. HOSPITAL/ER FOLLOW UP: Reason for visit: Dental pain Which facility: [facility] ER Date of visit: 10/31/2022 Diagnosis: Dental Testing done: none Treatment given: Azithromycin, instructed to follow up with dentist in 3-5 days. Current symptoms: Refer that bottom right side/Gums are strapping machine tender and swollen. Finished zpack. Some chills but no fever. Has dental appt next week. PAST MEDICAL HISTORY: PAST MEDICAL HISTORY Diagnosis Date 11/2009 Anxiety Arthritis Asthma COPD (chronic obstructive pulmonary disease) ([facility]) Depression Obesity (BMI 30.0-34.9) CHARLES (obstructive sleep apnea) Recurrent UTI Seasonal allergies STD (sexually transmitted disease) Tobacco use disorder 05/18/2021 PAST SURGICAL HISTORY Procedure Laterality Date COLONOSCOPY W/BIOPSY SINGLE/MULTIPLE 03/02/11 ESOPHAGOGASTRODUODENOSCOPY TRANSORAL DIAGNOSTIC 11/14/2012 EGD ESOPHAGOGASTRODUODENOSCOPY TRANSORAL DIAGNOSTIC 06/02/2020 EGD MED INC ALL EX DRUG 11/2009 PAST SURGICAL HISTORY OF WISDOM TEETH ALLERGIES Benzalkonium Chloride; Clindamycin; Doxycycline; Flagyl [Metronidazole]; Hand Museum Educator [Ethyl Alcohol (Skin Cleanser)]; Iodine; Latex, Natural Rubber; [place]; Meloxicam; Morphine; Penicillin; Prednisone; Singulair [Montelukast]; and [...] DOWN DAILY DOSE multivitamin with folic acid ([facility] MULTIVITAMIN) 400 mcg Take 1 tablet by mouth once daily. lactobacillus rhamnosus ([facility] [employer] [facility]) 10 billion cell -200 mg [...] MIST) 0.65 % nasal spray Use 1 [place] in the nose as needed for cold/allergy [...] discussed and patient voices understanding. Prabha Springer APRN.MUSEUM CURATOR This note was partially generated using Fabricly voice recognition system. Note was reviewed for accuracy. There may be minor misspellings or grammar miscues with [employer]ricly voice recognition. documented in this encounter [facility] 10-14-2022 Note HNO ID: [id number] Author: Mima Horner LPN Service: ? Author Type: ? Type: Progress Notes Filed: 10/14/2022 1:13 PM Note Text: Patient identified by name and date of . Angelica Andujar is here for a Depo Provera injection. Patient brought medication. Date last injected: 07/22/22 Depo-Provera, 150 mg, administered IM right upper quadrant gluteus, Lot # [id number], expiration date 07/05/24. Depo-Provera was given without [...] See medication note for lot#, exp date. [facility] 10-14-2022 Note HNO ID: [id number] Author: Tete Romero APRN.MUSEUM CURATOR Service: ? Author Type: Nurse Practitioner Type: Progress Notes Filed: 10/14/2022 1:13 PM Note Text: Research Dietitian offered: Patient declines. Angelica Andujar is a [...] external genitalia normal, normal Bartholin's glands, urethra, [place]'s glands, no vulvar lesions, no cervical lesions, [...] AMPLIFICATION - BACTERIAL VAGINOSIS AMPLIFICATION Tete Romero APRN.MUSEUM CURATOR TEACHING PROVIDER (Physician/PA/SANITATION TRUCK DRIVER) NOTE OF PERSONAL INVOLVEMENT IN CARE: I have personally seen and examined the patient and performed the medical decision-making components. I have reviewed the Advanced Practice Registered Nurse (SANITATION TRUCK DRIVER) Student's documentation and verified the findings in the note as written. Any additions or changes are noted in bold/italics. Signature: Tete Romero Date: 10/14/2022 Time: 11:18 AM Medical Decision Making: Problems: Low: Acute, uncomplicated illness or injury Data: Unique test(s) ordered: 2 Risk: Low: Low risk from testing/treatment Moderate: Drug management Medical Decision Making Level: 3 - Low [facility] 10-14-2022 History of Present illness Narrative Patient identified by name and date of . Angelica Andujar is here for a Depo Provera injection. Patient brought medication. Date last injected: 07/22/22 Depo-Provera, 150 mg, administered IM right upper quadrant gluteus, Lot # [id number], expiration date 07/05/24. Depo-Provera was given without [...] See medication note for lot#, exp date. Research Dietitian offered: Patient declines. Angelica Andujar is a [...] external genitalia normal, normal Bartholin's glands, urethra, Mokane's glands, no vulvar lesions, no cervical lesions, [...] AMPLIFICATION - BACTERIAL VAGINOSIS AMPLIFICATION Tete Romero APRN.[facility] TEACHING PROVIDER (Physician/PA/SANITATION TRUCK DRIVER) NOTE OF PERSONAL INVOLVEMENT IN CARE: I have personally seen and examined the patient and performed the medical decision-making components. I have reviewed the Advanced Practice Registered Nurse (SANITATION TRUCK DRIVER) Student's documentation and verified the findings in the note as written. Any additions or changes are noted in bold/italics. Signature: Tete Romero Date: 10/14/2022 Time: 11:18 AM Medical Decision Making: Problems: Low: Acute, uncomplicated illness or injury Data: Unique test(s) ordered: 2 Risk: Low: Low risk from testing/treatment Moderate: Drug management Medical Decision Making Level: 3 - Low documented in this encounter [facility] 10-14-2022 Instructions Mima Horner LPN - [...] a copy. 10/14/2022 documented in this encounter [facility] 10-07-2022 Miscellaneous Notes Noted and agree [...] mouth today Protocols used: Abdominal Pain - [id number] documented in this encounter [facility] 10-04-2022 Miscellaneous Notes The following approved [...] Marifer Masters RN documented in this encounter [facility] 10-01-2022 Miscellaneous Notes The following approved medication requests have been transmitted electronically. Requested Prescriptions Pending Prescriptions Disp Refills lactobacillus rhamnosus ([facility]) 10 billion cell -200 mg capsule 30 capsule 11 Sig: Take 1 capsule by mouth once daily. Misbah Michel APRN.JOSE ROBERTO Patient has been identified by name and date of : Yes, Provider Dr. Mejia Date 10-01-22 Time 9:16 am Pharmacy phones for refill(s): Requested Prescriptions Pending Prescriptions Disp Refills lactobacillus rhamnosus ([facility]) 10 billion cell -200 mg capsule 30 [...] Marifer Masters RN documented in this encounter [facility] 09-29-2022 Miscellaneous Notes Left a message for pt with information/results below. Ayleen Murrieta LPN Negative for flu and COVID please notify thank you documented in this encounter [facility] 09-28-2022 History of Present illness Narrative This note was created using Qwayariter. Subjective Angelica Andujar is a 41 year [...] Benzalkonium Chloride; Clindamycin; Doxycycline; Flagyl [Metronidazole]; Hand Museum Educator [Ethyl Alcohol (Skin Cleanser)]; Iodine; Latex, Natural Rubber; [place]; Meloxicam; Morphine; Penicillin; Prednisone; Singulair [Montelukast]; and [...] (SALINE MIST) 0.65 % nasal spray^Use 1 [place]ston in the nose as needed for cold/allergy [...] directed every 24 hours.^Disp: 30 Patch^Rfl: 3 [facility] 10 billion cell -200 mg capsule^TAKE 1 [...] fatigue. GERARDO Hein documented in this encounter [facility] 09-28-2022 Instructions GERARDO Hein - 09/28/2022 5:51 PM EST -Follow-up with primary care doctor for ongoing fatigue. You may need laboratory testing/further work-up for this -COVID and flu test are pending. documented in this encounter [facility] 09-23-2022 Miscellaneous Notes Noted, thank you. Prabha Springer APRN.MUSEUM CURATOR FYI: Pt called in to let you know she wanted to cancel apt today but phone was acting up and was not able to cancel. Pt declined to reschedule at this time. Ayleen Murrieta LPN documented in this encounter [facility] 09-20-2022 Miscellaneous Notes Patient calls and [...] Lilian Marks RN documented in this encounter [facility] 09-17-2022 Miscellaneous Notes Order filed. Dr. [...] you on 10/04. documented in this encounter [facility] 09-15-2022 Instructions Chayito Tan APRN.CNP - 09/15/2022 9:31 AM EST Recommend trying over the counter Excedrin migraine as directed on packaging documented in this encounter [facility] 09-15-2022 History of Present illness Narrative [...] Benzalkonium Chloride; Clindamycin; Doxycycline; Flagyl [Metronidazole]; Hand Museum Educator [Ethyl Alcohol (Skin Cleanser)]; Iodine; Latex, Natural Rubber; [place]; Meloxicam; Morphine; Penicillin; Prednisone; Singulair [Montelukast]; and Zofran [Ondansetron Hcl (Pf)] MEDICATIONS Current Outpatient Medications Medication Sig naproxen (NAPROSYN) 500 mg tablet Take 1 tablet by mouth twice daily with meals. Takes as needed sodium chloride (SALINE MIST) 0.65 % nasal spray Use 1 Livingston in the nose as needed for cold/allergy [...] mcg TAKE 1 TABLET BY MOUTH DAILY [facility] 10 billion cell -200 mg capsule [...] which included preparing to see the patient, [id number] patient care, completing clinical documentation, obtaining and/or reviewing separately obtained history, performing a medically appropriate examination, counseling and educating the patient/family/caregiver, and ordering medications, tests, or procedures. documented in this encounter [facility] 09-10-2022 Miscellaneous Notes OK to refill [...] Brii Groves RN documented in this encounter [facility] 09-07-2022 History of Present illness Narrative Verified name and date of . Patient arrived- unable to urinate and fluids encouraged. Drinking water. CC Post Void Residual HPI: Angelica Andujar is a 41 year old female. The patient is here now for an appointment with Richard Kapoor, SAV, MT, PA-COV. Procedure: Explained procedure to patient and verbalizes understanding. Performed a PVR. Patient urinated and instructed to empty bladder as much as possible just prior to having PVR done using bladder ultrasound scanner. Results of scan: 0 mL The patient tolerated the procedure well. Plan: Appointment with Richard. Images from the original note were not included. [facility] NEW PATIENT CLINIC NOTE SERVICE DATE: [...] (SALINE MIST) 0.65 % nasal spray^Use 1 [place] in the nose as needed for cold/allergy [...] TABLET BY MOUTH DAILY^Disp: 30 tablet^Rfl: 11 [facility] 10 billion cell -200 mg capsule^TAKE 1 CAPSULE BY MOUTH DAILY^Disp: 30 capsule^Rfl: 11 (Patient not taking: Reported on 09/07/2022) promethazine (PHENERGAN) 25 mg tablet^take 1 tablet by mouth three times a day if needed for nausea and vomiting^Disp: 60 tablet^Rfl: 3 PAST MEDICAL HISTORY: PAST MEDICAL HISTORY Diagnosis Date 11/2009 Anxiety Arthritis Asthma COPD (chronic obstructive pulmonary disease) ([facility]) Depression Obesity (BMI 30.0-34.9) CHARLES (obstructive sleep [...] or procedures, and care coordination. SAV Gomes, [place], RAYMUNDO documented in this encounter [facility] 08-31-2022 Miscellaneous Notes The following approved medication requests have been transmitted electronically. Requested Prescriptions Signed Prescriptions Disp Refills sodium chloride (SALINE MIST) 0.65 % nasal spray 44 mL 0 Sig: Use 1 Livingston in the nose as needed for cold/allergy symptoms. Authorizing Provider: PRABHA SPRINGER Dextromethorphan-guaiFENesin (ROBITUSSIN DM) 10-200 mg/5 mL liqd 118 mL 0 Sig: Take 5 mL by mouth every 6 hours as needed. Authorizing Provider: PRABHA SPRINGER APRN.CNP Patient calls and provider message reviewed. Patient [...] for triage nurse to get recommendations from MUSEUM CURATOR. Yulissa Nicole LPN Can you please call the patient and let her know that based off of her symptoms it sounds like she has a viral illness. I would continue supportive care at home, stay well-hydrated, and eat a bland diet. In regards to her sleepiness she has an order for a sleep study at [facility], she needs to call to schedule appointment. Please let me know if she has any additional questions. Thank you. Prabha Springer APRN.JOSE ROBERTO Patient calling to state over the last [...] advise. Thank you. documented in this encounter [facility] 08-29-2022 Miscellaneous Notes Patient calling with [...] Becca Ott LPN documented in this encounter [facility] 08-20-2022 Miscellaneous Notes Patient notified. [place] [...] appointment-FYI Please advise. documented in this encounter [facility] 08-20-2022 Miscellaneous Notes Patient notified. Kristi Cummins RN Left message for patient to return phone call CP pt. +yeast, diflucan sent in. Tete Romero APRN.JOSE ROBERTO documented in this encounter [facility] 08-19-2022 History of Present illness Narrative [...] mcg TAKE 1 TABLET BY MOUTH DAILY [facility] 10 billion cell -200 mg capsule [...] Upset stomach cramps Flagyl [Metronidazo* Hives Hand Museum Educator [Eth* Rash PT HAS SENSITIVE SKIN. O.K. FOR MEDICAL PROFESSIONAL TO USE HAND SPORTS CARTOONIST AND THEN TOUCH HER, BUT SHE HERSELF DOES NOT USE IT. Iodine Rash Latex, Natural Rubb* Rash Local itching with contact and rash [place] Intolerance Sore throat Meloxicam Unknown Morphine Itching [...] Steffi Corona APRN.CNM documented in this encounter [facility] 08-17-2022 Miscellaneous Notes Sent. The following approved medication requests have been transmitted electronically. Requested Prescriptions Signed Prescriptions Disp Refills sucralfate (CARAFATE) 1 gram tablet 120 tablet 1 Sig: Take 1 tablet by mouth before meals and at bedtime. Authorizing Provider: MISBAH MICHEL APRN.CNP Patient updated of provider's message below. Patient is requesting her recent carafate prescription be sent to [facility] pharmacy and not [place]. (Pended) Thank you. Left message for pt [...] Adrienne Moctezuma LPN documented in this encounter [facility] 08-16-2022 Miscellaneous Notes Pt notified of results and provider message. Adrienne Moctezmua LPN Left message for patient to return call. Bernadine Gama ----- Message from Ian Ying MD sent at 08/14/2022 1:07 PM EST ----- Urine culture did not show a clear infection. Follow up with PCP, urology, or MEDIA SALES EXECUTIVE if symptoms persist. documented in this encounter [facility] 08-13-2022 Miscellaneous Notes Left VM message with results that PFTs unchanged from 2020. documented in this encounter [facility] 08-12-2022 History of Present illness Narrative [...] Upset stomach cramps Flagyl [Metronidazo* Hives Hand Museum Educator [Eth* Rash PT HAS SENSITIVE SKIN. O.K. FOR MEDICAL PROFESSIONAL TO USE HAND SPORTS CARTOONIST AND THEN TOUCH HER, BUT SHE HERSELF DOES NOT USE IT. Iodine Rash Latex, Natural Rubb* Rash Local itching with contact and rash [place] Intolerance Sore throat Meloxicam Unknown Morphine Itching [...] in Partial Remission, Most Recent Episode Depressed ([facility]) Right Leg Pain Family History Problem Relation [...] Ally Bailon PA-C documented in this encounter [facility] 08-06-2022 Miscellaneous Notes Patient returned julianna and went over results from [facility] provider with understanding. Left message for pt to call back. Rosemary Gillette MA Let patient know their covid19/infleunza test was negative. documented in this encounter [facility] 08-04-2022 Miscellaneous Notes Patient returned call [...] order and send. documented in this encounter [facility] 08-03-2022 History of Present illness Narrative Subjective Patient came in with complaints of some lower back discomfort and urinary frequency for about a week. Patient denies any other symptoms at this time such as odor or itching pain. Patient just wanted to be checked for urinary tract infection. The history is provided by the patient. No electroneurodiagnostic technologist was used. Review of Systems Constitutional: Negative. [...] Benzalkonium Chloride; Clindamycin; Doxycycline; Flagyl [Metronidazole]; Hand Museum Educator [Ethyl Alcohol (Skin Cleanser)]; Iodine; Latex, Natural Rubber; [place]; Meloxicam; Morphine; Penicillin; Prednisone; Singulair [Montelukast]; and [...] TABLET BY MOUTH DAILY^Disp: 30 tablet^Rfl: 11 [facility] 10 billion cell -200 mg [...] - UA DIP, URINE (POC) Yeni Hameed APRN.MUSEUM CURATOR documented in this encounter [facility] 07-22-2022 History of Present illness Narrative Patient identified by name and date of . Angelica Andujar is here for a Depo Provera injection. Patient brought medication. Date last injected: 04/29/2022 Depo-Provera, 150 mg, administered IM left upper quadrant gluteus, Lot # [id number], expiration date 01/2024. Depo-Provera was given without [...] Elida Osei LPN documented in this encounter [facility] 07-21-2022 History of Present illness Narrative [...] sadness. Refers she got kicked out of [employer] for not to tithing enough. Refers she got kicked out of the [employer] [facility] for bad behavior. Has a lot going on with her family relationships. Seeing Dipika James [facility] for counseling, next appt about 2 weeks. No SI/HI. Follows with the counseling center for psychiatry. Next follow-up 1-2 weeks, Dr. Melgar. PAST MEDICAL HISTORY: PAST MEDICAL HISTORY Diagnosis Date 11/2009 Anxiety Arthritis Asthma COPD (chronic obstructive pulmonary disease) ([facility]) Depression Obesity (BMI 30.0-34.9) CHARLES (obstructive sleep apnea) Recurrent UTI Seasonal allergies STD (sexually transmitted disease) Tobacco use disorder 05/18/2021 PAST SURGICAL HISTORY Procedure Laterality Date COLONOSCOPY W/BIOPSY SINGLE/MULTIPLE 03/02/11 ESOPHAGOGASTRODUODENOSCOPY TRANSORAL DIAGNOSTIC 11/14/2012 EGD ESOPHAGOGASTRODUODENOSCOPY TRANSORAL DIAGNOSTIC 06/02/2020 EGD MED INC ALL EX DRUG 11/2009 PAST SURGICAL HISTORY OF WISDOM TEETH ALLERGIES Benzalkonium Chloride; Clindamycin; Doxycycline; Flagyl [Metronidazole]; Hand Museum Educator [Ethyl Alcohol (Skin Cleanser)]; Iodine; Latex, Natural Rubber; [place]; Meloxicam; Morphine; Penicillin; Prednisone; Singulair [Montelukast]; and [...] mcg TAKE 1 TABLET BY MOUTH DAILY [facility] 10 billion cell -200 mg [...] APRN.CNP This note was partially generated using Fabricly voice recognition system. Note was reviewed for accuracy. There may be minor misspellings or grammar miscues with Fabricly voice recognition. documented in this encounter [facility] 07-21-2022 Instructions Prabha Springer APRN.CNP - 07/21/2022 9:50 AM EST Recommend contacting psychiatrist to discuss concerns and medication. May add on Vitamin C once daily. Keep up coming appointment with counselor Follow up as needed. documented in this encounter [facility] 07-19-2022 Miscellaneous Notes Closing encounter, will start new encounter once forms are received. Rafaela Landers Ma Patient returned call and given provider's message below with verbalized understanding. Patient will call [facility] and give them pcp fax number. Called [...] light. -She is going to be requesting [employer] fax a form to PCP office to be completed so her gas is not turned off. Negrita Grant RN documented in this encounter [facility] 07-19-2022 Miscellaneous Notes Noted Win Mejia [...] Left detailed message for patient. Forward to [facility] office. Ashlyn Hameed MA Please assist patient in making an appt with PCP or [facility] for an office visit. Patient of Dr. Mejia's calling. She was seen recently at [facility] on 07/14 for a sore throat, fatigue and chills for several weeks. Mariposa, Strep, covid and flu were negative recently. Patient asked if her recent K+level was normal at last [facility] ER visit. Pt informed that it [...] phone. Thank you. documented in this encounter [facility] 07-19-2022 History of Present illness Narrative [...] OF FUNCTION: TREATMENT: Therapeutic Exercise: 1: SKC [id number] 2: DKC [id number] 3: *Strap assisted gastroc stretch 3x30 sec [...] A Garcias PT documented in this encounter [facility] 07-19-2022 History of Present illness Narrative PULM FUNCTION SMARTBLOCK: Provider: Juana Gallegos PA-C Assisting Tech: NANCY Wilson Spirometry: 1 documented in this encounter [facility] 07-15-2022 Miscellaneous Notes Mariposa negative. Call to patient and she verbalizes understanding documented in this encounter [facility] 07-15-2022 Miscellaneous Notes Patient notified.Azra Elias LPN Please notify of negative influenza and covid test. Continue comfort measures for symptoms as you would for a cold. Any worsening symptoms follow up with PCP or ER. Geovanna Carmichael APRN.CNP documented in this encounter [facility] 07-14-2022 History of Present illness Narrative [...] mcg TAKE 1 TABLET BY MOUTH DAILY [facility] 10 billion cell -200 [...] Upset stomach cramps Flagyl [Metronidazo* Hives Hand Museum Educator [Eth* Rash PT HAS SENSITIVE SKIN. O.K. FOR MEDICAL PROFESSIONAL TO USE HAND SPORTS CARTOONIST AND THEN TOUCH HER, BUT SHE HERSELF DOES NOT USE IT. Iodine Rash Latex, Natural Rubb* Rash Local itching with contact and rash [place] Intolerance Sore throat Meloxicam Unknown Morphine Itching [...] Ian Ying MD documented in this encounter [facility] 07-09-2022 History of Present illness Narrative This is a 41 year old female who presents today with: Patient presents with: Follow Up: ER follow up HISTORY OF PRESENT ILLNESS: Angelica Andujar is a 41 year old female. Patient presents with: Follow Up: ER follow up HOSPITAL/ER FOLLOW UP: Reason for visit: Diarrhea/vomiting Which facility: [facility] Date of visit: 07/03/2022 Diagnosis: Gastroenteritis Testing [...] any issues. Has up coming appointment with Dr. Esperanza Amin at [facility]. Dental Decay: Was seen in express care 06/26/2022 given Cefdinir 300 mg. Refers she has not started medication due to upset stomach. Seeing Daniela Lea cannot get into dentist until September. Day time sleepiness, will have lack of energy. Unsure if she snores at bedtime. Had sleep study ordered but needs refaxed to [facility]. PAST MEDICAL HISTORY: PAST MEDICAL HISTORY Diagnosis [...] Benzalkonium Chloride; Clindamycin; Doxycycline; Flagyl [Metronidazole]; Hand Museum Educator [Ethyl Alcohol (Skin Cleanser)]; Iodine; Latex, Natural Rubber; [place]; Meloxicam; Morphine; Penicillin; Prednisone; Singulair [Montelukast]; and [...] mcg TAKE 1 TABLET BY MOUTH DAILY [facility] 10 billion cell -200 mg capsule [...] discussed and patient voices understanding. Prabha Springer APRN.MUSEUM CURATOR This note was partially generated using Naow recognition system. Note was reviewed for accuracy. There may be minor misspellings or grammar miscues with Fabricly voice recognition. documented in this encounter [facility] 07-09-2022 Instructions Prabha Springer APRN.JOSE ROBERTO - 07/09/2022 10:15 AM EDT Start Antibiotic for teeth, wait 2 hours after taking prescription medication packet. Schedule appointment with Dentist as soon as possible. May use warm salt water swishes to help with pain/canker sore. Keep up coming appointment with Dr. Mata. Eat a bland diet advance as tolerated. Stay well hydrated. Follow up as needed. Office note will be faxed to [facility] so you can schedule sleep study. documented in this encounter [facility] 07-06-2022 Miscellaneous Notes Noted Win Mejia [...] calling and states she was seen at [facility] ER last Tuesday and was told she has gastroenteritis. Referral has been placed to Dr. Mata. Patient waiting for their office to contact her to schedule appt. Patient asking PCP if it is normal for her to have a metallic taste in her mouth due to gastroenteritis? She reports many things taste like dish soap. Please advise at [phone]. Thank you. documented in this encounter [facility] 07-05-2022 History of Present illness Narrative [...] history is provided by the patient. No electroneurodiagnostic technologist was used. Mouth/Lip Problem Review of Systems [...] Benzalkonium Chloride; Clindamycin; Doxycycline; Flagyl [Metronidazole]; Hand Museum Educator [Ethyl Alcohol (Skin Cleanser)]; Iodine; Latex, Natural Rubber; [place]; Meloxicam; Morphine; Penicillin; Prednisone; Singulair [Montelukast]; and [...] mcg TAKE 1 TABLET BY MOUTH DAILY [facility] 10 billion cell -200 [...] Hameed APRN.JOSE ROBERTO documented in this encounter [facility] 07-05-2022 Miscellaneous Notes Referral, Demo, Med list faxed to Dr. Mata's office. Will have them call pt to schedule. Elsy Villegas Ma Referral placed. Misbah Michel APRN.CNP Patient requesting a consult to [facility] at [facility]. Feels that the protonix is not working as well. States she has vomiting x 3 in the last week due to GERD symptoms. documented in this encounter [facility] 06-26-2022 History of Present illness Narrative [...] to get an appointment with Daniela Alc[facility] dentist until September. She denies fever, chills, facial swelling, purulent drainage, difficulty swallowing, difficulty breathing. REVIEW OF SYSTEMS See HPI PAST MEDICAL HISTORY Diagnosis Date 11/2009 Anxiety Arthritis Asthma COPD (chronic obstructive pulmonary disease) ([facility]) Depression Obesity (BMI 30.0-34.9) CHARLES (obstructive sleep apnea) Recurrent UTI Seasonal allergies STD (sexually transmitted disease) Tobacco use disorder 05/18/2021 PAST SURGICAL HISTORY Procedure Laterality Date COLONOSCOPY W/BIOPSY SINGLE/MULTIPLE 03/02/11 ESOPHAGOGASTRODUODENOSCOPY TRANSORAL DIAGNOSTIC 11/14/2012 EGD ESOPHAGOGASTRODUODENOSCOPY TRANSORAL DIAGNOSTIC 06/02/2020 EGD MED INC ALL EX DRUG 11/2009 PAST SURGICAL HISTORY OF WISDOM TEETH ALLERGIES Benzalkonium Chloride; Clindamycin; Doxycycline; Flagyl [Metronidazole]; Hand Museum Educator [Ethyl Alcohol (Skin Cleanser)]; Iodine; Latex, Natural Rubber; [place]; Meloxicam; Morphine; Penicillin; Prednisone; Singulair [Montelukast]; and [...] mcg TAKE 1 TABLET BY MOUTH DAILY [facility] 10 billion cell -200 mg capsule [...] Amanda Montoya APRN.CNP documented in this encounter [facility] 06-20-2022 Miscellaneous Notes Reason for Call: [...] also states she can go to the [facility] per a cab tomorrow but [...] coughing.) Protocols used: Coronavirus (COVID-19) Diagnosed or [id number] documented in this encounter [facility] 06-18-2022 Miscellaneous Notes Order faxed to [facility]. Will have hospital call pt to schedule. Elsy Villegas Ma Order for sleep study filed and printed Win Mejia MD Patient calls and states that she is needing an order for a sleep study to be faxed over to [facility] Sleep Lab. Please review and advise, Lilian Marks RN documented in this encounter [facility] 06-17-2022 Miscellaneous Notes Patient called. Verified [...] Yogi Amos DPM documented in this encounter [facility] 06-15-2022 History of Present illness Narrative [...] of Care: created on 06/15/22 through 07/16/22 [place] in home exercise program. Patient will decrease [...] Planned: 4 Planned Treatment Interventions: Therapeutic exercise (60533);Neuromuscular re-education (29026);Manual therapy (74478);Self-half-way management (72090);Therapeutic activities (37379);Gait Training (14928);E-Stim Unattended (31039);E-Stim Attended/TENS (12407) PLAN FOR NEXT VISIT: Assess response to [...] Therapy Evaluation Evaluation Therapeutic Exercise: 1: SKC [id number] 2: DKC [id number] 3: Seated heel raises 4: Seated Tib [...] A Garcias PT documented in this encounter [facility] 06-12-2022 Instructions Yeni Hameed APRN.MUSEUM CURATOR - 06/12/2022 10:26 AM EDT - RICE therapy - see patient instructions for further recommendations. - F/U with PCP in 5-7 days or before if worse. - Discussed Red Flag signs and when to go to ER. - Reviewed plan of care and DC papers with patient. Verbalized understanding. documented in this encounter [facility] 06-12-2022 History of Present illness Narrative [...] history is provided by the patient. No electroneurodiagnostic technologist was used. Pain (Shoulder Pain) Review of [...] Benzalkonium Chloride; Clindamycin; Doxycycline; Flagyl [Metronidazole]; Hand Museum Educator [Ethyl Alcohol (Skin Cleanser)]; Iodine; Latex, Natural Rubber; [place]; Meloxicam; Morphine; Penicillin; Prednisone; Singulair [Montelukast]; and [...] mcg TAKE 1 TABLET BY MOUTH DAILY [facility] 10 billion cell -200 [...] not sure how long no injury (accession [id number]), 3-4 months ago chiropractor put her right rotator cuff out of alignment and has pain down the entire right arm since no inj (accession [id number]), 3-4 months ago chiropractor put her right rotator cuff out of alignment and has pain down the entire right arm since no inj (accession [id number]) Findings: Lumbar spine: AP, and lateral views [...] spondylolisthesis. Unremarkable radiographs RIGHT humerus and forearm. Robotic Welding Operator: CHARLES Transcribe Date/Time: Jun 12 2022 10:13A Dictated by : WIN HARRIS MD Patient was prescribed a Lidoderm patch. Patient was educated about proper use of patch and supportive therapies. Patient does have an orthopedic follow-up on Tuesday so she will be going to that. Patient understands care plan and is okay with care plan. Yeni Hameed APRN.JOSE ROBERTO documented in this encounter [facility] 06-11-2022 Miscellaneous Notes Reason for Call: [...] to get test while seen at the [facility] 06/02 2. COVID-19 EXPOSURE:Yes 3. ONSET: 10 days ago 4. WORST SYMPTOM: Wheezing and coughing 5. COUGH: Yes, severe 6. FEVER: Unsure 7. RESPIRATORY STATUS: Patient states shortness of breath and wheezing 8. [id number]: Worse 9. HIGH RISK DISEASE: Patient states asthma, lung disease, weak immune system, and obesity 10. VACCINE: Pfizer 12/21/21 11. BOOSTER: N/A 12. : Denies 13. OTHER SYMPTOMS: Patient states chills, fatigue, headache, muscle pain, sore throat 14. O2 SATURATION MONITOR: N/A Protocols used: Coronavirus (COVID-19) Diagnosed or [id number] documented in this encounter [facility] 06-08-2022 Miscellaneous Notes Pt calls to report she was seen in [facility] on 06/03/22. Pt was under the impression that provider was going to call in rx for inhaler to [facility]. OV notes state:Patient want albuterol called in but patient has 3 refills left according to the computer. Pt reports she does not have any refills on inhaler left because she has COPD and has used up refills. Pt reports she has been waiting since last week for inhaler. Pt is requesting rx for inhaler go to [facility]. Patient has been identified by name and [...] Adrienne Moctezuma LPN documented in this encounter [facility] 06-02-2022 Miscellaneous Notes Patient of [facility] in [place] forgot to take her am psych meds today and concerned States she has already spoken to the facility's pharmacy who advised to skip today's missed doses and resume tomorrow States she then spoke to pharmacist Nicola at [facility] in [place] who said okay to take now then take later in day tomorrow Patient has decided to take pills tomorrow am as advised by her facility and will follow up when open in am with further questions Patient denies new or worse symptoms from which her providers are aware. Yes documented in this encounter [facility] 05-31-2022 Instructions Shara Jaramillo APRN.ROBBIEM - 05/31/2022 10:47 AM EDT Images from [...] sex--even between outbreaks. documented in this encounter [facility] 05-31-2022 History of Present illness Narrative [...] L0 SAB0 IAB1 Ectopic0 Multiple0 Live Births0 Printing Equipment Mechanic History LMP: LMP Unknown, Injection Age at Menarche: Age at First : Age at Menopause: Printing Equipment Mechanic History Comments: Sexual Activity: Yes; Male Contraception: [...] mcg TAKE 1 TABLET BY MOUTH DAILY [facility] 10 billion cell -200 [...] GI Upset FLAGYL [METRONIDAZOLE] 04/11/2018 Hives HAND SPORTS CARTOONIST [ETHYL ALCOHOL (SK*11/04/2009 Rash IODINE 02/18/2011 Rash LATEX, NATURAL RUBBER 03/17/2018 Rash COUSHATTA 12/07/2017 Intolerance MELOXICAM 06/12/2018 Unknown MORPHINE 03/02/2011 [...] external genitalia normal, normal Bartholin's glands, urethra, [place]'s glands, no vulvar lesions, no cervical lesions, [...] - ICD9: 623.5, ICD10: N89.8 Shara Jaramillo APRN.CNM Medical Decision Making: Problems: Low: Acute, uncomplicated illness or injury Data: Unique test(s) ordered: 3+ Assessment requiring an independent historian(s) Risk: Moderate: Moderate risk from testing/treatment Medical Decision Making Level: 4 - Moderate I spent 30 minutes in the visit, with more than 50% of the total [id number]-lc-[id number] time of the visit in counseling / coordination of care. documented in this encounter [facility] 05-21-2022 History of Present illness Narrative This is a 41 year old female who presents today with: No chief complaint on file. HISTORY OF PRESENT ILLNESS: Angelica Andujar is a 41 year old female. No chief complaint on file. HOSPITAL/ER FOLLOW UP: Reason for visit: Headache Which facility: [facility] ER Date of visit: 05/13/2022 Diagnosis: [...] mg daily for tremors. Has appointment with [facility] in . Has notied increased tremor in right leg [...] Benzalkonium Chloride; Clindamycin; Doxycycline; Flagyl [Metronidazole]; Hand Museum Educator [Ethyl Alcohol (Skin Cleanser)]; Iodine; Latex, Natural Rubber; [place]; Meloxicam; Morphine; Penicillin; Prednisone; Singulair [Montelukast]; and [...] mcg TAKE 1 TABLET BY MOUTH DAILY [facility] 10 billion cell -200 [...] APRN.CNP This note was partially generated using Fabricly voice recognition system. Note was reviewed for accuracy. There may be minor misspellings or grammar miscues with Fabricly voice recognition. documented in this encounter [facility] 05-21-2022 Instructions Prabha Springer APRN.CNP - [...] mg tablet. 6.) documented in this encounter [facility] 09-13-2022 Miscellaneous Notes Pt notified and voiced understanding. Elsy Villegas Ma Tried to reach pt, line sound like a fax number. Will try again. Elsy Villegas Ma Please have the patient continue with upcoming visit with Prabha on Tuesday to discuss BP, migraines. Misbah Michel APRN.JOSE ROBERTO Pt called in and reports she was [...] call and advise. documented in this encounter [facility] 05-17-2022 Instructions Yogi Amos - 05/17/2022 10:32 AM EDT Images from the original note were not included. Powerstep Original Full length. Can purchase at [facility] [employer] here in [place], [employer] in [place] or [place]. Also can find in [place] in [facility]. 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 [...] choose the one that fits the best. Spade with your athletic shoes to find a [...] repeat the exercise. documented in this encounter [facility] 05-17-2022 History of Present illness Narrative [...] Objective: Patient presents to clinic ambulating in [facility] Vasc: DP and PT pulses are faintly [...] inserts, stretching and good supportive shoes. Yogi Amos DPM AMB ROOMING INTAKE FLOWSHEET DATA Risk [...] Maureen Calle RN documented in this encounter [facility] 05-11-2022 Miscellaneous Notes Patient notified of [...] Ayleen Murrieta LPN documented in this encounter [facility] 05-05-2022 Instructions Geoavnna Carmichael APRN.JOSE ROBERTO - 05/05/2022 11:52 AM EDT Start Triamcinolone 0.1% ointment two to three times daily for itch Continue Loratadine Keep rash clean and dry. Allow to dry out. documented in this encounter [facility] 05-05-2022 History of Present illness Narrative Images from the original note were not included. Subjective The history is provided by the patient. No electroneurodiagnostic technologist was used. HPI Angelica Andujar is a [...] have confirmed and edited as necessary, the [facility] Review of Systems Constitutional: Negative for [...] detail warranting prompt ER evaluation. Geovanna Carmichael APRN.CNP documented in this encounter [facility] 05-03-2022 Miscellaneous Notes Pt notified via identified VM that PT order has been placed and she can call to schedule. Elsy Villegas Ma PT consult ordered Win Mejia MD Patient called asking for a referral to PT for right leg pain/strain. Was seen 02/2022 for same. States can leave a detailed message on answering machine. documented in this encounter [facility] 04-29-2022 History of Present illness Narrative Patient identified by name and date of . Angelica Andujar is here for a Depo Provera injection. Patient brought medication. Date last injected: 02/04/22 Depo-Provera, 150 mg, administered IM right upper quadrant gluteus, Lot # [id number], expiration date 01/03/2024. Depo-Provera was given without [...] Linda Padilla RN documented in this encounter [facility] 04-12-2022 History of Present illness Narrative [...] Arthritis Asthma COPD (chronic obstructive pulmonary disease) ([facility]) Depression Obesity (BMI 30.0-34.9) CHARLES (obstructive sleep apnea) Recurrent UTI Seasonal allergies STD (sexually transmitted disease) Tobacco use disorder 05/18/2021 PAST SURGICAL HISTORY Procedure Laterality Date COLONOSCOPY W/BIOPSY SINGLE/MULTIPLE 03/02/11 ESOPHAGOGASTRODUODENOSCOPY TRANSORAL DIAGNOSTIC 11/14/2012 EGD ESOPHAGOGASTRODUODENOSCOPY TRANSORAL DIAGNOSTIC 06/02/2020 EGD MED INC ALL EX DRUG 11/2009 PAST SURGICAL HISTORY OF WISDOM TEETH ALLERGIES Benzalkonium Chloride; Clindamycin; Doxycycline; Flagyl [Metronidazole]; Hand Museum Educator [Ethyl Alcohol (Skin Cleanser)]; Iodine; Latex, Natural Rubber; [place]; Meloxicam; Morphine; Penicillin; Prednisone; Singulair [Montelukast]; and [...] TABLET BY MOUTH DAILY^Disp: 30 tablet^Rfl: 11 [facility] 10 billion cell -200 mg capsule^TAKE [...] of care. This note was generated using Fabricly software. It may contain errors in wording, punctuation, or spelling. Main Hamilton APRN.JOSE ROBERTO documented in this encounter [facility] 04-03-2022 Miscellaneous Notes Phone call placed patient advised (see prior provider encounter) Patient verbalized understanding, agreed with plan of care. Fidelia Murrieta LPN ----- Message from Ian Ying MD sent at 04/03/2022 8:00 AM EDT ----- COVID negative. documented in this encounter [facility] 04-02-2022 History of Present illness Narrative [...] mcg TAKE 1 TABLET BY MOUTH DAILY [facility] 10 billion cell -200 mg [...] Upset stomach cramps Flagyl [Metronidazo* Hives Hand Museum Educator [Eth* Rash PT HAS SENSITIVE SKIN. O.K. FOR MEDICAL PROFESSIONAL TO USE HAND SPORTS CARTOONIST AND THEN TOUCH HER, BUT SHE HERSELF DOES NOT USE IT. Iodine Rash Latex, Natural Rubb* Rash Local itching with contact and rash [place] Intolerance Sore throat Meloxicam Unknown Morphine Itching [...] Ian Ying MD documented in this encounter [facility] 03-19-2022 Miscellaneous Notes The following approved [...] to refill as ordered Win Mejia MD [place] pharmacy calls, medications need to be sent there and not [facility]. Lilian Marks RN documented in this encounter [facility] 03-19-2022 Miscellaneous Notes OK to refill [...] Marifer Masters RN documented in this encounter [facility] 03-15-2022 Miscellaneous Notes Letter mailed to [...] her mailbox or drop it off at [facility] Luisana Madden MA documented in this encounter [facility] 02-25-2022 Miscellaneous Notes TC to pt. [...] at this time. Thank you. Prabha Springer APRN.CNP documented in this encounter [facility] 02-24-2022 Instructions Prabha Springer APRN.CNP - 02/24/2022 1:14 PM EDT 1.) Get labs and stool testing completing. 2.) Stay well hydrated. 3.) Red flag symptoms go to ER. 4.) You may wean off the propanolol, take 1 tablet every other day for 5 days and then may stop. 5.) Follow up pending test results. documented in this encounter [facility] 02-24-2022 History of Present illness Narrative [...] Arthritis Asthma COPD (chronic obstructive pulmonary disease) ([facility]) Depression Obesity (BMI 30.0-34.9) CHARLES (obstructive sleep apnea) Recurrent UTI Seasonal allergies STD (sexually transmitted disease) Tobacco use disorder 05/18/2021 PAST SURGICAL HISTORY Procedure Laterality Date COLONOSCOPY W/BIOPSY SINGLE/MULTIPLE 03/02/11 ESOPHAGOGASTRODUODENOSCOPY TRANSORAL DIAGNOSTIC 11/14/2012 EGD ESOPHAGOGASTRODUODENOSCOPY TRANSORAL DIAGNOSTIC 06/02/2020 EGD MED INC ALL EX DRUG 11/2009 PAST SURGICAL HISTORY OF WISDOM TEETH ALLERGIES Benzalkonium Chloride; Clindamycin; Doxycycline; Flagyl [Metronidazole]; Hand Museum Educator [Ethyl Alcohol (Skin Cleanser)]; Iodine; Latex, Natural Rubber; [place]; Meloxicam; Morphine; Penicillin; Prednisone; Singulair [Montelukast]; and [...] mcg TAKE 1 TABLET BY MOUTH DAILY [facility] 10 billion cell -200 mg capsule [...] discussed and patient voices understanding. Prabha Springer APRN.MUSEUM CURATOR This note was partially generated using Fabricly voice recognition system. Note was reviewed for accuracy. There may be minor misspellings or grammar miscues with Fabricly voice recognition. documented in this encounter [facility] 02-24-2022 Nurse Note Pt stated its been 2 weeks of diarrhea/fatique. Pt has not been taking anything for this. Pt unable to remember when all this started in the past, but mentioned she has had it and was told not to take Imodium. Yulissa Nicole LPN documented in this encounter [facility] 02-23-2022 Miscellaneous Notes Pt notified, states [...] scheduled 02/24/22 100 pm with Prabha Springer SALES SUPPORT ASSISTANT. Pt was told to be her 10-15 min early to get checked in, but she states she is at the mercy of the [employer] transportation. Pt also wanted provider to know that she has been having memory loss from the Propranolol, she states she only takes it daily but wants to wean herself off. Pt was asked if it helped with tremors, and she states she didn't know because she doesn't pay enough attention to her right hand. Please call and advise. documented in this encounter [facility] 02-17-2022 Miscellaneous Notes Noted Win Mejia [...] paper when wipes 12. :no Protocols used: [id number] documented in this encounter [facility] 02-09-2022 Miscellaneous Notes Pts sister called and is notified of providers results. She voices understanding, and will relay the message to her sister as her phone is shut off. Maureen Benjamin RN Please let the patient know that her xray of the right leg was normal. Misbah Michel APRN.JOSE ROBERTO documented in this encounter [facility] 02-08-2022 History of Present illness Narrative [...] tenderness to anterior calf. Was seen in [facility] ED for edema when she called [...] Upset stomach cramps Flagyl [Metronidazo* Hives Hand Museum Educator [Eth* Rash PT HAS SENSITIVE SKIN. O.K. FOR MEDICAL PROFESSIONAL TO USE HAND SPORTS CARTOONIST AND THEN TOUCH HER, BUT SHE HERSELF DOES NOT USE IT. Iodine Rash Latex, Natural Rubb* Rash Local itching with contact and rash [place] Intolerance Sore throat Meloxicam Unknown Morphine Itching [...] times daily as needed for cough. Ipratropium [place] (ATROVENT) 21 mcg (0.03 %) nasal spray Use 2 Sprays in the nose every 12 hours. THEREMS MULTIVITAMIN 400 mcg TAKE 1 TABLET BY MOUTH DAILY [facility] 10 billion cell -200 mg capsule TAKE [...] Win Mejia MD documented in this encounter [facility] 02-04-2022 Miscellaneous Notes Bilateral calf swelling [...] On Depo-Provera Protocols used: LEG SWELLING AND [id number] documented in this encounter [facility] 02-04-2022 History of Present illness Narrative Patient identified by name and date of . Angelica Andujar is here for a Depo Provera injection. Patient brought medication. Date last injected: 11/11/21 Depo-Provera, 150 mg, administered IM right upper quadrant gluteus, Lot # [id number], expiration date 12/04/2023. Depo-Provera was given without incident. Date of last menses: No LMP recorded (lmp unknown). Patient has had an injection. Irregular bleeding - No Menses ceased - Yes STD prevention discussed: Yes Patient instructed to return to clinic in 12 weeks +/- 5 days. [email or web address] Provider Kym Wen DO was present in office at time of injection. Linda Padilla RN documented in this encounter [facility] 02-02-2022 Instructions Anastasia Herrera APRN.CNP - [...] 6. Avoid smoking. documented in this encounter [facility] 02-02-2022 History of Present illness Narrative [...] Arthritis Asthma COPD (chronic obstructive pulmonary disease) ([facility]) Depression Obesity (BMI 30.0-34.9) CHARLES (obstructive sleep apnea) Recurrent UTI Seasonal allergies STD (sexually transmitted disease) Tobacco use disorder 05/18/2021 PAST SURGICAL HISTORY Procedure Laterality Date COLONOSCOPY W/BIOPSY SINGLE/MULTIPLE 03/02/11 ESOPHAGOGASTRODUODENOSCOPY TRANSORAL DIAGNOSTIC 11/14/2012 EGD ESOPHAGOGASTRODUODENOSCOPY TRANSORAL DIAGNOSTIC 06/02/2020 EGD MED INC ALL EX DRUG 11/2009 PAST SURGICAL HISTORY OF WISDOM TEETH ALLERGIES Benzalkonium Chloride; Clindamycin; Doxycycline; Flagyl [Metronidazole]; Hand Museum Educator [Ethyl Alcohol (Skin Cleanser)]; Iodine; Latex, Natural Rubber; [place]; Meloxicam; Morphine; Penicillin; Prednisone; Singulair [Montelukast]; and [...] times daily as needed for cough. Ipratropium [place] (ATROVENT) 21 mcg (0.03 %) nasal spray Use 2 Sprays in the nose every 12 hours. THEREMS MULTIVITAMIN 400 mcg TAKE 1 TABLET BY MOUTH DAILY [facility] 10 billion cell -200 mg capsule [...] as needed for worsening/no improvement. Anastasia Herrera APRN.MUSEUM CURATOR The patient indicates understanding of these issues and agrees with the plan. documented in this encounter [facility] 02-02-2022 Miscellaneous Notes Patient call in [...] arthritis in back of neck. Protocols used: [id number] documented in this encounter [facility] 01-28-2022 Instructions Shara Morel APRN.JOSE ROBERTO - 01/28/2022 9:16 AM EDT R.I.C.E. The [...] when lying down. documented in this encounter [facility] 01-28-2022 History of Present illness Narrative This note was created using Qwayariter. Subjective Angelica Andujar is a 41 year [...] States that she just started [employer] [facility] yesterday. Requesting work note. States she is currently trying to get disability. The history is provided by the patient. No electroneurodiagnostic technologist was used. Musculoskeletal Problem This is a [...] Benzalkonium Chloride; Clindamycin; Doxycycline; Flagyl [Metronidazole]; Hand Museum Educator [Ethyl Alcohol (Skin Cleanser)]; Iodine; Latex, Natural Rubber; [place]; Meloxicam; Morphine; Penicillin; Prednisone; Singulair [Montelukast]; and [...] mcg TAKE 1 TABLET BY MOUTH DAILY [facility] 10 billion cell -200 mg capsule [...] times daily as needed for cough. Ipratropium [place] (ATROVENT) 21 mcg (0.03 %) nasal spray [...] management of ongoing pain Discussed red flags Shraa Morel APRN.MUSEUM CURATOR documented in this encounter [facility] 01-26-2022 Miscellaneous Notes Left detailed message on a secured voicemail. Bernadine Gama Please inform patient of negative COVID, Influenza and RSV. Continue treatment plan at time of discharge. documented in this encounter [facility] 01-25-2022 History of Present illness Narrative [...] Benzalkonium Chloride; Clindamycin; Doxycycline; Flagyl [Metronidazole]; Hand Museum Educator [Ethyl Alcohol (Skin Cleanser)]; Iodine; Latex, Natural Rubber; [place]; Meloxicam; Morphine; Penicillin; Prednisone; Singulair [Montelukast]; and [...] times daily as needed for cough. Ipratropium [place] (ATROVENT) 21 mcg (0.03 %) nasal spray Use 2 Sprays in the nose every 12 hours. THEREMS MULTIVITAMIN 400 mcg TAKE 1 TABLET BY MOUTH DAILY [facility] 10 billion cell -200 [...] and atraumatic. Nose: Nose normal. Mouth/Throat: Lips: [place]. Mouth: Mucous membranes are moist. Cardiovascular: Rate [...] G89.29 Will refer to pcp. Abhijeet Rodrigues APRN.MUSEUM CURATOR documented in this encounter [facility] 01-25-2022 Instructions Abhijeet Rodrigues APRN.MUSEUM CURATOR - 01/25/2022 11:26 AM EDT ASSESSMENT: Contact Dermatitis - Poison [place] PLAN: Plan per orders in [facility]. Keep fingernails well trimmed and clean. Wet [...] concerning to you. documented in this encounter [facility] 01-22-2022 Miscellaneous Notes The following approved [...] patient. Ivet Carlos documented in this encounter [facility] 01-18-2022 Instructions Main Hamilton APRN.CNP - [...] thinning/skin sensitive skin. documented in this encounter [facility] 01-18-2022 History of Present illness Narrative [...] Benzalkonium Chloride; Clindamycin; Doxycycline; Flagyl [Metronidazole]; Hand Museum Educator [Ethyl Alcohol (Skin Cleanser)]; Iodine; Latex, Natural Rubber; [place]; Meloxicam; Morphine; Penicillin; Prednisone; Singulair [Montelukast]; and [...] mcg TAKE 1 TABLET BY MOUTH DAILY [facility] 10 billion cell -200 mg [...] times daily as needed for cough. Ipratropium [place] (ATROVENT) 21 mcg (0.03 %) nasal spray [...] of care. This note was generated using Fabricly software. It may contain errors in wording, punctuation, or spelling. Main Hamilton APRN.JOSE ROBERTO documented in this encounter [facility] 12-25-2021 Miscellaneous Notes The following approved [...] you. FLOWER Carrasco documented in this encounter [facility] 12-23-2021 Miscellaneous Notes Patient notified.Rosemary Gillette [...] Garnica PA-C 12/21/2021 documented in this encounter [facility] 12-21-2021 Miscellaneous Notes Reason for call: [...] have any questions, you can call Nurse recreation supervisor back. documented in this encounter [facility] 12-21-2021 Miscellaneous Notes Patient notified of results, verbalizes understanding of instructions. Yulissa Nicole LPN I have placed the order for a ZIO monitor, the patient may make an appointment with either our office or the nursing office to have this placed. Please let me know if she has any questions. Thank you. Prabha Springer APRN.CNP Pt came in to discuss results and requested to have the ZIO monitor order placed. Please call pt at [phone] with any questions/concerns. Thank you, Ally Garcia [...] any other questions. Thank you. Prabha Springer APRN.CNP documented in this encounter [facility] 12-21-2021 History of Present illness Narrative [...] Benzalkonium Chloride; Clindamycin; Doxycycline; Flagyl [Metronidazole]; Hand Museum Educator [Ethyl Alcohol (Skin Cleanser)]; Iodine; Latex, Natural Rubber; [place]; Meloxicam; Morphine; Penicillin; Prednisone; Singulair [Montelukast]; and [...] mcg TAKE 1 TABLET BY MOUTH DAILY [facility] 10 billion cell -200 mg capsule TAKE [...] not taking: Reported on 11/08/2021 ) Ipratropium [place] (ATROVENT) 21 mcg (0.03 %) nasal spray [...] Garn[place] PA-C 12/21/2021 documented in this encounter [facility] 12-16-2021 Instructions Prabha Springer APRN.JOSE ROBERTO - 12/16/2021 10:42 AM EDT 1.) Get labs completed. 2.) Stay well hydrated. 3.) ECG was normal. 4.) Follow up pending test results or sooner as needed. documented in this encounter [facility] 12-16-2021 Nurse Note Pt denies actually [...] does use inhalers. documented in this encounter [facility] 12-16-2021 History of Present illness Narrative [...] Arthritis Asthma COPD (chronic obstructive pulmonary disease) ([facility]) Depression Obesity (BMI 30.0-34.9) CHARLES (obstructive sleep apnea) Recurrent UTI Seasonal allergies STD (sexually transmitted disease) Tobacco use disorder 05/18/2021 PAST SURGICAL HISTORY Procedure Laterality Date COLONOSCOPY W/BIOPSY SINGLE/MULTIPLE 03/02/11 ESOPHAGOGASTRODUODENOSCOPY TRANSORAL DIAGNOSTIC 11/14/2012 EGD ESOPHAGOGASTRODUODENOSCOPY TRANSORAL DIAGNOSTIC 06/02/2020 EGD MED INC ALL EX DRUG 11/2009 PAST SURGICAL HISTORY OF WISDOM TEETH ALLERGIES Benzalkonium Chloride; Clindamycin; Doxycycline; Flagyl [Metronidazole]; Hand Museum Educator [Ethyl Alcohol (Skin Cleanser)]; Iodine; Latex, Natural Rubber; [place]; Meloxicam; Morphine; Penicillin; Prednisone; Singulair [Montelukast]; and [...] not taking: Reported on 11/08/2021 ) Ipratropium [place] (ATROVENT) 21 mcg (0.03 %) nasal spray Use 2 Sprays in the nose every 12 hours. (Patient not taking: Reported on 11/11/2021 ) THEREMS MULTIVITAMIN 400 mcg TAKE 1 TABLET BY MOUTH DAILY [facility] 10 billion cell -200 mg capsule TAKE [...] ROBERTO This note was partially generated using [employer] voice recognition system. Note was reviewed for accuracy. There may be minor misspellings or grammar miscues with [employer] voice recognition. documented in this encounter [facility] 12-01-2021 History of Present illness Narrative [...] L0 SAB0 IAB1 Ectopic0 Multiple0 Live Births0 Printing Equipment Mechanic History LMP: LMP Unknown, Injection Age at Menarche: Age at First : Age at Menopause: Printing Equipment Mechanic History Comments: Sexual Activity: Yes; Male Contraception: [...] external genitalia normal, normal Bartholin's glands, urethra, [place]'s glands, no vulvar lesions, no cervical lesions, [...] offered: Patient declines. documented in this encounter [facility] documented as of this encounter (statuses as of 12/01/2021) [facility] Narrative* Problem [...] of this encounter (statuses as of 12/16/2021) [facility]* Problem [...] of this encounter (statuses as of 12/21/2021) [facility]* Problem [...] of this encounter (statuses as of 12/21/2021) [facility]* Problem [...] of this encounter (statuses as of 12/23/2021) [facility]* Problem [...] of this encounter (statuses as of 12/23/2021) [facility] Problem [...] of this encounter (statuses as of 12/25/2021) [facility] Problem [...] of this encounter (statuses as of 01/18/2022) [facility] Problem [...] of this encounter (statuses as of 01/22/2022) [facility]* Problem [...] of this encounter (statuses as of 01/25/2022) [facility] Problem [...] of this encounter (statuses as of 01/26/2022) [facility] Problem [...] of this encounter (statuses as of 01/28/2022) [facility] Problem [...] of this encounter (statuses as of 02/02/2022) [facility] Problem [...] of this encounter (statuses as of 02/02/2022) [facility] Problem [...] of this encounter (statuses as of 02/04/2022) [facility] Problem [...] of this encounter (statuses as of 02/05/2022) [facility] Problem [...] of this encounter (statuses as of 02/09/2022) [facility] Problem [...] of this encounter (statuses as of 02/09/2022) [facility] Problem [...] of this encounter (statuses as of 02/17/2022) [facility] Problem [...] of this encounter (statuses as of 02/23/2022) [facility] Problem [...] of this encounter (statuses as of 02/24/2022) [facility] Problem [...] of this encounter (statuses as of 02/25/2022) [facility] Problem [...] of this encounter (statuses as of 03/19/2022) [facility] Problem [...] of this encounter (statuses as of 03/23/2022) [facility] Problem [...] of this encounter (statuses as of 04/02/2022) [facility] Problem [...] of this encounter (statuses as of 04/03/2022) [facility] Problem [...] of this encounter (statuses as of 04/12/2022) [facility] Problem [...] of this encounter (statuses as of 04/29/2022) [facility] Problem [...] of this encounter (statuses as of 05/03/2022) [facility] Problem [...] of this encounter (statuses as of 05/05/2022) [facility] Problem [...] of this encounter (statuses as of 05/13/2022) [facility] Problem [...] of this encounter (statuses as of 05/17/2022) [facility] Problem [...] of this encounter (statuses as of 05/18/2022) [facility] Problem [...] of this encounter (statuses as of 05/21/2022) [facility] Problem [...] of this encounter (statuses as of 06/03/2022) [facility] Problem [...] of this encounter (statuses as of 06/04/2022) [facility] Problem [...] of this encounter (statuses as of 06/08/2022) [facility] Problem [...] of this encounter (statuses as of 06/12/2022) [facility] Problem [...] of this encounter (statuses as of 06/12/2022) [facility] Problem [...] of this encounter (statuses as of 06/15/2022) [facility] Problem [...] of this encounter (statuses as of 06/17/2022) [facility] Problem [...] of this encounter (statuses as of 06/18/2022) [facility] Problem [...] of this encounter (statuses as of 06/21/2022) [facility] Problem [...] of this encounter (statuses as of 06/26/2022) [facility] Problem [...] of this encounter (statuses as of 07/05/2022) [facility] Problem [...] of this encounter (statuses as of 07/05/2022) [facility] Problem [...] of this encounter (statuses as of 07/06/2022) [facility] Problem [...] of this encounter (statuses as of 07/09/2022) [facility] Problem [...] of this encounter (statuses as of 07/14/2022) [facility] Problem [...] of this encounter (statuses as of 07/15/2022) [facility] Problem [...] of this encounter (statuses as of 07/19/2022) [facility] Problem [...] of this encounter (statuses as of 07/19/2022) [facility] Problem [...] of this encounter (statuses as of 07/19/2022) [facility] Problem [...] of this encounter (statuses as of 07/21/2022) [facility] Problem [...] of this encounter (statuses as of 07/22/2022) [facility] Problem [...] of this encounter (statuses as of 08/03/2022) [facility] Problem [...] of this encounter (statuses as of 08/04/2022) [facility] Problem [...] of this encounter (statuses as of 08/06/2022) [facility] Problem [...] of this encounter (statuses as of 08/13/2022) [place] [address]-01-2013 History of Past illness Narrative* Problem Noted [...] of this encounter (statuses as of 08/13/2022) [facility] Problem [...] of this encounter (statuses as of 08/16/2022) [facility] Problem [...] of this encounter (statuses as of 08/17/2022) [facility] Problem [...] of this encounter (statuses as of 08/19/2022) [facility] Problem [...] of this encounter (statuses as of 08/20/2022) [facility] Problem [...] of this encounter (statuses as of 09/02/2022) [facility] Problem [...] of this encounter (statuses as of 09/06/2022) [facility] Problem [...] of this encounter (statuses as of 09/09/2022) [facility] Problem [...] of this encounter (statuses as of 09/11/2022) [facility] Problem [...] of this encounter (statuses as of 09/15/2022) [facility] Problem [...] of this encounter (statuses as of 09/17/2022) [facility] Problem [...] of this encounter (statuses as of 09/20/2022) [facility] Problem [...] of this encounter (statuses as of 09/23/2022) [facility] Problem [...] of this encounter (statuses as of 09/29/2022) [facility] Problem [...] of this encounter (statuses as of 09/29/2022) [facility] Problem [...] of this encounter (statuses as of 10/01/2022) [facility] Problem [...] of this encounter (statuses as of 10/04/2022) [facility] Problem [...] of this encounter (statuses as of 10/08/2022) [facility] Problem [...] of this encounter (statuses as of 10/14/2022) [facility] Problem [...] of this encounter (statuses as of 11/04/2022) [facility] Problem [...] of this encounter (statuses as of 2022) [facility] Problem [...] of this encounter (statuses as of 11/08/2022) [facility] Problem [...] of this encounter (statuses as of 11/09/2022) [facility] Problem [...] of this encounter (statuses as of 11/10/2022) [facility] Problem [...] of this encounter (statuses as of 11/10/2022) [facility] Problem [...] of this encounter (statuses as of 11/10/2022) [facility] Problem [...] of this encounter (statuses as of 11/11/2022) [facility] Problem [...] of this encounter (statuses as of 11/12/2022) [facility] Problem [...] of this encounter (statuses as of 11/13/2022) [facility] Problem [...] of this encounter (statuses as of 11/15/2022) [facility] Problem [...] of this encounter (statuses as of 11/15/2022) [facility] Problem [...] of this encounter (statuses as of 11/17/2022) [facility] Problem [...] of this encounter (statuses as of 11/17/2022) [facility] Problem [...] of this encounter (statuses as of 11/17/2022) [facility] Problem [...] of this encounter (statuses as of 11/18/2022) [facility] Problem [...] of this encounter (statuses as of 11/19/2022) [facility] Problem [...] of this encounter (statuses as of 11/19/2022) [facility] Problem [...] of this encounter (statuses as of 11/21/2022) [facility] Problem [...] of this encounter (statuses as of 11/22/2022) [facility] Problem [...] of this encounter (statuses as of 12/06/2022) [facility] Problem [...] of this encounter (statuses as of 12/09/2022) [facility] Problem [...] of this encounter (statuses as of 12/10/2022) [facility] Problem [...] of this encounter (statuses as of 12/13/2022) [facility] Problem [...] of this encounter (statuses as of 12/28/2022) [facility] Problem [...] of this encounter (statuses as of 12/29/2022) [facility] Problem [...] of this encounter (statuses as of 12/30/2022) [facility] Problem [...] of this encounter (statuses as of 12/30/2022) [facility] Problem [...] of this encounter (statuses as of 01/06/2023) [facility] Problem [...] of this encounter (statuses as of 01/15/2023) [facility] Problem [...] of this encounter (statuses as of 01/18/2023) [facility] Problem [...] of this encounter (statuses as of 02/03/2023) [facility] Problem [...] of this encounter (statuses as of 02/09/2023) [facility] Problem [...] of this encounter (statuses as of 02/22/2023) [facility] Problem [...] of this encounter (statuses as of 03/01/2023) [facility] Problem [...] of this encounter (statuses as of 03/06/2023) [facility] Problem [...] of this encounter (statuses as of 03/15/2023) [facility] Problem [...] of this encounter (statuses as of 05/01/2023) [facility] Problem [...] of this encounter (statuses as of 05/03/2023) [facility] Problem [...] of this encounter (statuses as of 06/17/2023) [facility] Problem [...] of this encounter (statuses as of 07/13/2023) [facility] Problem [...] of this encounter (statuses as of 07/13/2023) [facility] Diagnosis Encounter for gynecological examination (general) (routine) without abnormal findings- Primary Encounter for screening mammogram for malignant neoplasm of breast Other screening mammogram Screen for STD (sexually transmitted disease) Screening examination for venereal disease [facility] Diagnosis Lightheaded- Primary Dizziness and giddiness [facility] Right leg pain- Primary Pain in limb Right arm pain Pain in limb [facility] Diagnosis Lightheaded- Primary Dizziness and giddiness [facility] Diagnosis Contact dermatitis, unspecified contact dermatitis type, unspecified trigger- Primary [facility] Diagnosis URI, acute- Primary Acute upper respiratory infections of unspecified site Rhus dermatitis Contact dermatitis and other eczema due to plants (except food) Chronic pain of right lower extremity [facility] Diagnosis Right leg pain- Primary [facility] Headache, unspecified headache type- Primary Cervicalgia [facility] Diagnosis Encounter for management and injection of depo-Provera- Primary Surveillance of other previously prescribed contraceptive method [facility] Diagnosis Elevated blood pressure reading without diagnosis of hypertension- Primary Right leg pain Pain in limb Bipolar disorder, in partial remission, most recent episode depressed (HCC) Bipolar I disorder, most recent episode (or current) depressed, in partial or unspecified remission Hyperlipidemia, unspecified hyperlipidemia type [facility] Diagnosis Fatigue, unspecified type- Primary Diarrhea, unspecified type Tremor of right hand [facility] Diagnosis Vitamin D deficiency Unspecified vitamin D deficiency Essential tremor Essential and other specified forms of tremor [facility] Vitamin D deficiency Unspecified vitamin D deficiency Essential tremor Essential and other specified forms of tremor [facility] Diagnosis Sore throat- Primary Acute pharyngitis Viral syndrome Unspecified viral infection, in conditions classified elsewhere and of unspecified site [facility] Diagnosis Insect bite of lower extremity, unspecified laterality, initial encounter- Primary [facility] Diagnosis Encounter for management and injection of depo-Provera- Primary Surveillance of other previously prescribed contraceptive method [facility] Right leg pain- Primary Pain in limb [facility] Diagnosis Rash- Primary Rash and other nonspecific skin eruption [facility] Diagnosis Onychomycosis- Primary Dermatophytosis of nail Pain in toe of left foot Pain in limb Pain in toe of right foot Pain in limb Hyperkeratosis Acquired keratoderma Tinea pedis of both feet Diminished pulses in lower extremity Other symptoms involving cardiovascular system Plantar fasciitis Plantar fascial fibromatosis [facility] Hospital discharge follow-up- Primary Other follow-up examination Encounter for smoking cessation counseling Counseling on substance use and abuse Neck pain Cervicalgia Essential tremor Essential and other specified forms of tremor Headache, unspecified headache type [facility] Diagnosis Herpes simplex vulvovaginitis- Primary Vulvar pain Unspecified symptom associated with female genital organs Screening examination for STD (sexually transmitted disease) Screening examination for venereal disease Vaginal discharge Leukorrhea, not specified as infective [facility] Diagnosis Chronic obstructive pulmonary disease, unspecified COPD type (HCC) [facility] Pain- Primary Generalized [facility] Diagnosis Right leg pain- Primary Pain in limb [facility] Diagnosis CHARLES (obstructive sleep apnea)- Primary Obstructive sleep apnea (adult) (pediatric) [facility] Dental infection- Primary Acute apical periodontitis of pulpal origin [facility] Diagnosis Gastroesophageal reflux disease with esophagitis without hemorrhage- Primary Nausea and vomiting, unspecified vomiting type [facility] Diagnosis Unspecified condition of the tongue- Primary [facility] Diagnosis Hospital discharge follow-up- Primary Other follow-up examination Viral gastroenteritis Intestinal infection due to other organism, not elsewhere classified Tooth decay Unspecified dental caries Daytime sleepiness [facility]* Diagnosis Sore throat- Primary Acute pharyngitis Fatigue, unspecified type documented in [facility] encounter [facility]* Diagnosis Right leg pain- Primary Pain in limb [facility] Diagnosis COPD, mild (HCC) Chronic airway obstruction, not elsewhere classified [facility] Diagnosis Vitamin D deficiency Unspecified vitamin D deficiency [facility]* Diagnosis Fatigue, unspecified type- Primary Current mild episode of major depressive disorder, unspecified whether recurrent (HCC) [facility] Diagnosis Urinary frequency- Primary [facility]* Diagnosis Urinary frequency- Primary Viral URI Acute upper respiratory infections of unspecified site [facility] Diagnosis Gastroesophageal reflux disease, unspecified whether esophagitis present- Primary [facility] Diagnosis Vaginal itching- Primary Pruritus of genital organs Vaginal discharge Leukorrhea, not specified as infective [facility] Diagnosis URI, acute- Primary Acute upper respiratory infections of unspecified site [facility] Diagnosis Frequency of urination- Primary Urinary frequency Yeast infection Candidiasis of unspecified site Smoker Tobacco use disorder [facility] Diagnosis Other chronic pain [facility] Diagnosis Headaches- Primary [facility] Diagnosis Pain in left foot- Primary Pain in limb [facility] Diagnosis Viral illness- Primary Unspecified viral infection, in conditions classified elsewhere and of unspecified site Chronic midline low back pain without sciatica Fatigue, unspecified type [facility] Diagnosis Essential tremor Essential and other specified forms of tremor [facility]* Diagnosis Encounter for surveillance of other contraceptive- Primary Vaginal irritation Unspecified noninflammatory disorder of vagina [facility] Diagnosis Hospital discharge follow-up- Primary Other follow-up examination Tooth decay Unspecified dental caries Dental abscess Periapical abscess without sinus [facility] Diagnosis Acute pain of left shoulder- Primary Hospital discharge follow-up- Primary Other follow-up examination Viral URI Acute upper respiratory infections of unspecified site [facility] Diagnosis Chronic obstructive pulmonary disease, unspecified COPD type ([facility]) Hospital discharge follow-up- Primary Other follow-up examination Viral URI Acute upper respiratory infections of unspecified site [facility] Diagnosis Viral URI- Primary Acute upper respiratory infections of unspecified site [facility] Diagnosis Viral URI with cough- Primary Acute upper respiratory infections of unspecified site Sore throat Acute pharyngitis Eczema, unspecified type [facility] Diagnosis Pelvic cramping- Primary Unspecified symptom associated with female genital organs Breakthrough bleeding on depo provera Metrorrhagia [facility] Diagnosis Right leg pain- Primary Pain in limb Near syncope Syncope and collapse [facility] Diagnosis Pain in toe of right foot- Primary Pain in limb [facility] Diagnosis Tremor- Primary Abnormal involuntary movements Tongue pain Glossodynia Acute otitis media, left Unspecified otitis media URI, acute Acute upper respiratory infections of unspecified site [facility] Diagnosis Dysuria- Primary [facility] Diagnosis Tremor- Primary Abnormal involuntary movements [facility]* Diagnosis Encounter for screening mammogram for breast cancer [facility]* Diagnosis Eczema, unspecified type- Primary Fatigue, unspecified type Altered taste Disturbances of sensation of smell and taste [facility]* Diagnosis Fatigue, unspecified type [facility]* Diagnosis Fatigue, unspecified type- Primary Viral illness Unspecified viral infection, in conditions classified elsewhere and of unspecified site documented in this encounter [facility] note* Diagnosis Encounter for surveillance of other contraceptive- Primary documented in this encounter [facility] note* Diagnosis Nausea- Primary Nausea alone documented in this encounter [facility] note* Diagnosis Acute cough- Primary URI, acute Acute upper respiratory infections of unspecified site documented in this encounter [facility] note* Diagnosis Pain, dental- Primary Unspecified disorder of the teeth and supporting structures Blister (nonthermal) of left middle finger, initial encounter documented in this encounter [facility] note* Diagnosis Fatigue, unspecified type documented in this encounter [facility] note* Diagnosis Vitamin D deficiency Unspecified vitamin D deficiency documented in this encounter [facility] note* Diagnosis Calculus of gallbladder with acute cholecystitis without obstruction- Primary documented in this encounter [facility] note* Diagnosis Screening breast examination Other screening breast examination Encounter for screening mammogram for breast cancer documented in this encounter [facility] note* Diagnosis Calculus of gallbladder with acute cholecystitis without obstruction- Primary Cholecystitis- Primary Cholecystitis, unspecified Calculus of gallbladder with acute cholecystitis without obstruction documented in this encounter [facility] note* Diagnosis Calculus of gallbladder with acute cholecystitis without obstruction- Primary Calculus of gallbladder with acute cholecystitis without obstruction- Primary Calculus of gallbladder with acute cholecystitis without obstruction documented in this encounter [facility] for referral (narrative)* Diagnostic Procedure Only (Routine) - Pending Review Specialty Diagnoses / Procedures Referred By Rod vega Referred To Contact [facility] Diagnoses Encounter for screening mammogram for malignant neoplasm of breast Procedures MARGUERITE SCREENING W MAYO SCREENING DIGITAL BREAST TOMOSYNTHESIS BI SCREENING MAMMOGRAPHY BI 2-VIEW BREAST INC CAD Kaleigh Abbasi MD [address] [place] [address] [facility] [address] [place] [id number] Referral ID Status Reason Start Date Expiration Date Visits Requested Visits Authorized [id number] Pending Review Auto-Generat ed Referral 12/01/2021 12/31/2022 1 1 [facility] for referral (narrative)* Outpatient Procedure (Routine) - Closed Specialty Diagnoses / Procedures Referred By Contac t Referred To Contact [facility] Diagnoses Lightheaded Procedures ECG COMPLETE ECG ROUTINE ECG W/LEAST 12 LDS W/I&R Prabha Springer APRN.CNP [address] [place] [address] [facility] [address] [place] [address] Referral ID Status Reason Start Date Expiration Date V isits Requested Visits Authorized [id number] Closed Auto-Generate d Referral 12/16/2021 12/16/2022 1 1 [facility] for referral (narrative)* Diagnostic Procedure Only (Routine) - Closed Specialty Diagnoses / Procedures Referred By Contac t Referred To Contact XR IMAGING Diagnoses Right leg pain Procedures XR TIBIA FIBULA 2V AP/LAT RIGHT RADIOLOGIC EXAMINATION TIBIA & FIBULA 2 VIEWS Win Mejia MD [address] [place] [address] X[facility] Imaging Referral ID Status Reason Start Date Expiration Date V isits Requested Visits Authorized [id number] Closed Auto-Generate d Referral 02/08/2022 03/10/2023 1 1 [facility] for referral (narrative)* Diagnostic Procedure Only (Routine) - Pending Review Specialty Diagnoses / Procedures Referred By Contac t Referred To Contact X[facility] IMAGING Diagnoses Plantar fasciitis Procedures XR FOOT GENERAL 3V AP/LAT/OBL BILATERAL RADEX FOOT COMPLETE MINIMUM 3 VIEWS Yogi Amos [address] [place] [address] X[facility] Imaging Referral ID Status Reason Start Date Expiration Date Visits Requested Visits Authorized [id number] Pending Review Auto-Generat ed Referral 05/17/2022 06/16/2023 1 1 * Outpatient Procedure (Routine) - Pending Review Specialty Diagnoses / Procedures Referred By Contac t Referred [facility] Diagnoses Onychomycosis Diminished pulses in lower extremity Procedures PVR ANK PRESS JUAQUIN VAS LAB NON-INVAS PHYSIOLOGIC STD EXTREMITY ART 2 LEVEL Yogi Amos [address] [address] [facility] [address] [place] [address] Referral ID Status Reason Start Date Expiration Date Visits Requested Visits Authorized [id number] Pending Review Auto-Generat ed Referral 05/17/2022 05/17/2023 1 1 * Medication Prior Authorization - Closed Specialty Diagnoses / Procedures Referred By Contac t Referred To Contact Yogi Amos [address] [place] [address] Referral ID Status Reason Start Date Expiration Date Visits Re quested Visits Authorized [id number] Closed 1 1 [facility] for referral (narrative)* Diagnostic Procedure Only (Routine) - Closed Specialty Diagnoses / Procedures Referred By Robertac t Referred To Contact XR IMAGING Diagnoses Neck pain Procedures XR CERV OTHER 4V AP/LAT/OBL RADEX SPINE CERVICAL 4 OR 5 VIEWS Prabha Springer, CHACHO.MUSEUM CURATOR [address] [place] [address] Xr Imaging Referral ID Status Reason Start Date Expiration Date V isits Requested Visits Authorized [id number] Closed Auto-Generate d Referral 05/21/2022 06/20/2023 1 1 [facility] for referral (narrative)* Diagnostic Procedure Only (Urgent) - Closed Specialty Diagnoses / Procedures Referred By Contac t Referred To Contact XR IMAGING Diagnoses Pain Procedures XR FOREARM GENERAL 2V AP/LAT RIGHT RADEX FOREARM 2 VIEWS Yeni Hameed APRN.MUSEUM CURATOR [address] [place] [address] X[facility] Imaging Referral ID Status Reason Start Date Expiration Date V isits Requested Visits Authorized [id number] Closed Auto-Generate d Referral 06/12/2022 07/12/2023 1 1 * Diagnostic Procedure Only (Urgent) - Closed Specialty Diagnoses / Procedures Referred By Contac t Referred To Contact XR IMAGING Diagnoses Pain Procedures XR LUMBAR LIMITED 2V AP/LAT RADEX SPINE LUMBOSACRAL 2/3 VIEWS Yeni Hameed APRN.MUSEUM CURATOR [address] [place] [address] Xr Imaging Referral ID Status Reason Start Date Expiration Date V isits Requested Visits Authorized [id number] Closed Auto-Generate d Referral 06/12/2022 07/12/2023 1 1 * Diagnostic Procedure Only (Urgent) - Closed Specialty Diagnoses / Procedures Referred By Contac t Referred To Contact XR IMAGING Diagnoses Pain Procedures XR HUMERUS 2V AP/LAT RIGHT RADEX HUMERUS MINIMUM 2 VIEWS Yeni Hameed APRN.MUSEUM CURATOR [address] [place] [address] X[facility] Imaging Referral ID Status Reason Start Date Expiration Date V isits Requested Visits Authorized [id number] Closed Auto-Generate d Referral 06/12/2022 07/12/2023 1 1 [facility] for referral (narrative)* Diagnostic Procedure Only (Routine) - Pending Review Specialty Diagnoses / Procedures Referred By Contac t Referred To Contact X[facility] IMAGING Diagnoses Pain in left foot Procedures XR FOOT GENERAL 3V AP/LAT/OBL LEFT RADEX FOOT COMPLETE MINIMUM 3 VIEWS Yogi Amos [address] [place] [address] X[facility] Imaging Referral ID Status Reason Start Date Expiration Date Visits Requested Visits Authorized [id number] Pending Review Auto-Generat ed Referral 09/13/2022 10/13/2023 1 1 [facility] for referral (narrative)* Diagnostic Procedure Only (Routine) - Pending Review Specialty Diagnoses / Procedures Referred By Contac t Referred To Contact [facility] Diagnoses Pelvic cramping Breakthrough bleeding on depo provera Procedures PELVIC US WHI US PELVIC NONOBSTETRIC REAL-TIME IMAGE COMPLETE Tete Romero APRN.CNP [address] [place] [address] [facility] [address] [place] [address] Referral ID Status Reason Start Date Expiration Date Visits Requested Visits Authorized [id number] Pending Review Auto-Generat ed Referral 11/15/2022 11/15/2023 1 1 [facility] for referral (narrative)* Diagnostic Procedure Only (Routine) - Pending Review Specialty Diagnoses / Procedures Referred By Contac t Referred To Contact XR IMAGING Diagnoses Pain in toe of right foot Procedures XR FOOT GENERAL 3V AP/LAT/OBL RIGHT RADEX FOOT COMPLETE MINIMUM 3 VIEWS Yogi Amos [address] [place] [address] Xr Imaging Referral ID Status Reason Start Date Expiration Date Visits Requested Visits Authorized [id number] Pending Review Auto-Generat ed Referral 11/17/2022 12/17/2023 1 1 T [facility] for referral (narrative)* Diagnostic Procedure Only (Routine) - Pending Review Specialty Diagnoses / Procedures Referred By Contac t Referred To Contact [facility] Diagnoses Encounter for screening mammogram for breast cancer Procedures MARGUERITE SCREENING SCREENING MAMMOGRAPHY BI 2-VIEW BREAST INC CAD Win Mejia MD [address] [place] [address] [facility] [address] [place] [address] Referral ID Status Reason Start Date Expiration Date Visits Requested Visits Authorized [id number] Pending Review Auto-Generat ed Referral 12/01/2022 12/31/2023 1 1 [facility] Summary Purpose Family History No Family History Records FoundNo Family History Records FoundNo Family History Records FoundNo Family History Records FoundNo Family History Records FoundNo Family History Records FoundNo Family History Records FoundNo Family History Records FoundNo Family History Records FoundNo Family History Records Found Advance Directives No Advanced Directives Records FoundDocuments on File Type Date Recorded Patient Manager Electronic Expl anation Advance Directive(s) 06/02/2020 12:14 PM Advance Directive(s) 05/26/2020 4:15 PM Documents on File Type Date Recorded Patient Manager Electronic Expl anation Advance Directive(s) 06/02/2020 12:14 PM Advance Directive(s) 05/26/2020 4:15 PM Reason for Referral Specialty Diagnoses / Procedures Referred By Contac t Referred To Contact [facility] Diagnoses Right leg pain Procedures CONSULT TO [facility]) OFFICE/OUTPATIENT [facility] 60-74 MINUTES Shara Morel, SANITATION TRUCK DRIVER.MUSEUM CURATOR [address] [place] [address] Referral ID Status Reason Start Date Expiration Date Visits Requested Visits Authorized [id number] Pending Review PCP Requested Referral 01/28/2022 01/28/2023 1 1 Specialty Diagnoses / Procedures Referred By Contac t Referred To Contact Diagnoses Cervicalgia Anastasia Herrera, SANITATION TRUCK DRIVER.MUSEUM CURATOR [address] [place] [address] Referral ID Status Reason Start Date Expiration Date Visits Re quested Visits Authorized [id number] Closed 1 1 Specialty Diagnoses / Procedures Referred By Contac t Referred To Contact [facility] Diagnoses Right leg pain Procedures CONSULT TO PHYSICAL THERAPY PHYSICAL THERAPY EVALUATION [facility] 45 MINS Win Mejia MD [address] [place] [address] [facility] [address] [place] [address] Referral ID Status Reason Start Date Expiration Date Visits Requested Visits Authorized [id number] Pending Review Auto-Generat ed Referral 05/03/2022 05/03/2023 1 1 Specialty Diagnoses / Procedures Referred By Contac t Referred To Contact [facility] Diagnoses Right leg pain Procedures PT REHAB FOLLOW UP ORDER THERAPEUTIC EXERCISES RE, EA 15 MIN. Marco A Garcias, PT [facility] [address] [place] [address] Referral ID Status Reason Start Date Expiration Date Visits Requested Visits Authorized [id number] Pending Review PCP Requested Referral Auto-Generate d Referral 2 09/13/2022 1 1 Specialty Diagnoses / Procedures Referred By Contac t Referred To Contact Gastroenterology Diagnoses Gastroesophageal reflux disease with esophagitis without hemorrhage Nausea and vomiting, unspecified vomiting type Procedures CONSULT TO GASTROENTEROLOGY OFFICE/OUTPATIENT [facility] 60-74 MINUTES Misbah Michel APRN.CNP [address] [place] [address] Referral ID Status Reason Start Date Expiration Date Visits Requested Visits Authorized [id number] Authorized PCP Requested Referral 2 07/02/2023 1 1 Specialty Diagnoses / Procedures Referred By Contac t Referred To Contact Orthopedics Diagnoses Acute pain of left shoulder Procedures CONSULT TO ORTHOPAEDICS OFFICE/OUTPATIENT [facility] 60-74 MINUTES Ian Ying MD [address] [place] [address] Referral ID Status Reason Start Date Expiration Date Visits Requested Visits Authorized [id number] Authorized PCP Requested Referral 11/08/2022 11/08/2023 1 1 Specialty Diagnoses / Procedures Referred By Contac t Referred To Contact XR IMAGING Diagnoses Acute pain of left shoulder Procedures XR SHOULDER LIMITED 2V AP/TRUE AP LEFT RADEX SHOULDER COMPLETE MINIMUM 2 VIEWS Ian Ying MD [address] [place] [address] Xr Imaging Referral ID Status Reason Start Date Expiration Date V isits Requested Visits Authorized [id number] Closed Auto-Generate d Referral 11/08/2022 12/08/2023 1 1 Referral ID Status Reason Start Date Expiration Date Visits Requested Visits Authorized [id number] Pending Review Auto-Generat ed Referral 11/15/2022 11/15/2023 1 1 Specialty Diagnoses / Procedures Referred By Contac t Referred To Contact Neurology Diagnoses Tremor Procedures CONSULT TO NEUROLOGY Prabha Springer APRN.MUSEUM CURATOR [address] [place] [address] Referral ID Status Reason Start Date Expiration Date Visits Requested Visits Authorized [id number] Ref Not Required PCP Requested Referral 11/19/2022 11/18/2023 1 1 Specialty Diagnoses / Procedures Referred By Contac t Referred To Contact General Surgery Diagnoses Calculus of gallbladder with acute cholecystitis without obstruction Juana Villegas PA-C [address] [place] [address] Momo Wright III, DO [address] [facility] [address] [place] [address] Referral ID Status Reason Start Date Expiration Date V isits Requested Visits Authorized [id number] Authorized 08/12/2023 08/11/2024 1 1 Medications Administered [...] DATE CREATED AUTHOR AUTHOR'S ORGANIZ ATION 04/17/2021 [facility] DATE CREATED AUTHOR AUTHOR'S ORGANIZ ATION 05/18/2023 [facility] DATE CREATED AUTHOR AUTHOR'S ORGANIZ ATION 07/22/2023 [facility] DATE CREATED AUTHOR AUTHOR'S ORGANIZ ATION 08/24/2023 [facility] DATE CREATED AUTHOR AUTHOR'S ORGANIZ ATION 08/25/2023 [facility] DATE CREATED AUTHOR AUTHOR'S ORGANIZ ATION 09/07/2023 [facility] DATE CREATED AUTHOR AUTHOR'S ORGANIZ ATION 09/16/2023 [facility] DATE CREATED AUTHOR AUTHOR'S ORGANIZ ATION 10/10/2023 [facility] DATE CREATED AUTHOR AUTHOR'S ORGANIZ ATION 11/01/2023 [facility] Source Comments (unrecognize d section and content) In the event this informatio n is protected by the Federal Confidentiality of Alcohol and Drug Abuse Patient Records regulations: The Federal rules restrict any use of the information to criminally investigate or prosecute any alcohol or drug abuse patient.[facility] the event this information is protected by the Federal Confidentiality of Alcohol and Drug Abuse Patient Records regulations: The Federal rules restrict any use of the information to criminally investigate or prosecute any alcohol or drug abuse patient.[facility] the event this information is protected by the Federal Confidentiality of Alcohol and Drug Abuse Patient Records regulations: The Federal rules restrict any use of the information to criminally investigate or prosecute any alcohol or drug abuse patient.[facility] the event this information is protected by the Federal Confidentiality of Alcohol and Drug Abuse Patient Records regulations: The Federal rules restrict any use of the information to criminally investigate or prosecute any alcohol or drug abuse patient.[facility] the event this information is protected by the Federal Confidentiality of Alcohol and Drug Abuse Patient Records regulations: The Federal rules restrict any use of the information to criminally investigate or prosecute any alcohol or drug abuse patient.[facility] the event this information is protected by the Federal Confidentiality of Alcohol and Drug Abuse Patient Records regulations: The Federal rules restrict any use of the information to criminally investigate or prosecute any alcohol or drug abuse patient.[facility] the event this information is protected by the Federal Confidentiality of Alcohol and Drug Abuse Patient Records regulations: The Federal rules restrict any use of the information to criminally investigate or prosecute any alcohol or drug abuse patient.[facility] the event this information is protected by the Federal Confidentiality of Alcohol and Drug Abuse Patient Records regulations: The Federal rules restrict any use of the information to criminally investigate or prosecute any alcohol or drug abuse patient.[facility] the event this information is protected by the Federal Confidentiality of Alcohol and Drug Abuse Patient Records regulations: The Federal rules restrict any use of the information to criminally investigate or prosecute any alcohol or drug abuse patient.[facility] the event this information is protected by the Federal Confidentiality of Alcohol and Drug Abuse Patient Records regulations: The Federal rules restrict any use of the information to criminally investigate or prosecute any alcohol or drug abuse patient.[facility] the event this information is protected by the Federal Confidentiality of Alcohol and Drug Abuse Patient Records regulations: The Federal rules restrict any use of the information to criminally investigate or prosecute any alcohol or drug abuse patient.[facility] the event this information is protected by the Federal Confidentiality of Alcohol and Drug Abuse Patient Records regulations: The Federal rules restrict any use of the information to criminally investigate or prosecute any alcohol or drug abuse patient.[facility] the event this information is protected by the Federal Confidentiality of Alcohol and Drug Abuse Patient Records regulations: The Federal rules restrict any use of the information to criminally investigate or prosecute any alcohol or drug abuse patient.[facility] the event this information is protected by the Federal Confidentiality of Alcohol and Drug Abuse Patient Records regulations: The Federal rules restrict any use of the information to criminally investigate or prosecute any alcohol or drug abuse patient.[facility] the event this information is protected by the Federal Confidentiality of Alcohol and Drug Abuse Patient Records regulations: The Federal rules restrict any use of the information to criminally investigate or prosecute any alcohol or drug abuse patient.[facility] Center[facility] the event this information is protected by the Federal Confidentiality of Alcohol and Drug Abuse Patient Records regulations: The Federal rules restrict any use of the information to criminally investigate or prosecute any alcohol or drug abuse patient.[facility] the event this information is protected by the Federal Confidentiality of Alcohol and Drug Abuse Patient Records regulations: The Federal rules restrict any use of the information to criminally investigate or prosecute any alcohol or drug abuse patient.[facility] CenterIn the event this information is protected by the Federal Confidentiality of Alcohol and Drug Abuse Patient Records regulations: The Federal rules restrict any use of the information to criminally investigate or prosecute any alcohol or drug abuse patient.[facility]In the event this information is protected by the Federal Confidentiality of Alcohol and Drug Abuse Patient Records regulations: The Federal rules restrict any use of the information to criminally investigate or prosecute any alcohol or drug abuse patient.[facility]In the event this information is protected by the Federal Confidentiality of Alcohol and Drug Abuse Patient Records regulations: The Federal rules restrict any use of the information to criminally investigate or prosecute any alcohol or drug abuse patient.[facility]In the event this information is protected by the Federal Confidentiality of Alcohol and Drug Abuse Patient Records regulations: The Federal rules restrict any use of the information to criminally investigate or prosecute any alcohol or drug abuse patient.[facility]In the event this information is protected by the Federal Confidentiality of Alcohol and Drug Abuse Patient Records regulations: The Federal rules restrict any use of the information to criminally investigate or prosecute any alcohol or drug abuse patient.[facility]In the event this information is protected by the Federal Confidentiality of Alcohol and Drug Abuse Patient Records regulations: The Federal rules restrict any use of the information to criminally investigate or prosecute any alcohol or drug abuse patient.[facility]In the event this information is protected by the Federal Confidentiality of Alcohol and Drug Abuse Patient Records regulations: The Federal rules restrict any use of the information to criminally investigate or prosecute any alcohol or drug abuse patient.[facility]In the event this information is protected by the Federal Confidentiality of Alcohol and Drug Abuse Patient Records regulations: The Federal rules restrict any use of the information to criminally investigate or prosecute any alcohol or drug abuse patient.[facility] CenterIn the event this information is protected by the Federal Confidentiality of Alcohol and Drug Abuse Patient Records regulations: The Federal rules restrict any use of the information to criminally investigate or prosecute any alcohol or drug abuse patient.[facility] the event this information is protected by the Federal Confidentiality of Alcohol and Drug Abuse Patient Records regulations: The Federal rules restrict any use of the information to criminally investigate or prosecute any alcohol or drug abuse patient.[facility]In the event this information is protected by the Federal Confidentiality of Alcohol and Drug Abuse Patient Records regulations: The Federal rules restrict any use of the information to criminally investigate or prosecute any alcohol or drug abuse patient.[facility]In the event this information is protected by the Federal Confidentiality of Alcohol and Drug Abuse Patient Records regulations: The Federal rules restrict any use of the information to criminally investigate or prosecute any alcohol or drug abuse patient.[facility]In the event this information is protected by the Federal Confidentiality of Alcohol and Drug Abuse Patient Records regulations: The Federal rules restrict any use of the information to criminally investigate or prosecute any alcohol or drug abuse patient.[facility]In the event this information is protected by the Federal Confidentiality of Alcohol and Drug Abuse Patient Records regulations: The Federal rules restrict any use of the information to criminally investigate or prosecute any alcohol or drug abuse patient.[facility]In the event this information is protected by the Federal Confidentiality of Alcohol and Drug Abuse Patient Records regulations: The Federal rules restrict any use of the information to criminally investigate or prosecute any alcohol or drug abuse patient.[facility]In the event this information is protected by the Federal Confidentiality of Alcohol and Drug Abuse Patient Records regulations: The Federal rules restrict any use of the information to criminally investigate or prosecute any alcohol or drug abuse patient.[facility]In the event this information is protected by the Federal Confidentiality of Alcohol and Drug Abuse Patient Records regulations: The Federal rules restrict any use of the information to criminally investigate or prosecute any alcohol or drug abuse patient.[facility]In the event this information is protected by the Federal Confidentiality of Alcohol and Drug Abuse Patient Records regulations: The Federal rules restrict any use of the information to criminally investigate or prosecute any alcohol or drug abuse patient.[facility]In the event this information is protected by the Federal Confidentiality of Alcohol and Drug Abuse Patient Records regulations: The Federal rules restrict any use of the information to criminally investigate or prosecute any alcohol or drug abuse patient.[facility]In the event this information is protected by the Federal Confidentiality of Alcohol and Drug Abuse Patient Records regulations: The Federal rules restrict any use of the information to criminally investigate or prosecute any alcohol or drug abuse patient.[facility]In the event this information is protected by the Federal Confidentiality of Alcohol and Drug Abuse Patient Records regulations: The Federal rules restrict any use of the information to criminally investigate or prosecute any alcohol or drug abuse patient.[facility]In the event this information is protected by the Federal Confidentiality of Alcohol and Drug Abuse Patient Records regulations: The Federal rules restrict any use of the information to criminally investigate or prosecute any alcohol or drug abuse patient.[facility]In the event this information is protected by the Federal Confidentiality of Alcohol and Drug Abuse Patient Records regulations: The Federal rules restrict any use of the information to criminally investigate or prosecute any alcohol or drug abuse patient.[facility]In the event this information is protected by the Federal Confidentiality of Alcohol and Drug Abuse Patient Records regulations: The Federal rules restrict any use of the information to criminally investigate or prosecute any alcohol or drug abuse patient.[facility]In the event this information is protected by the Federal Confidentiality of Alcohol and Drug Abuse Patient Records regulations: The Federal rules restrict any use of the information to criminally investigate or prosecute any alcohol or drug abuse patient.[facility]In the event this information is protected by the Federal Confidentiality of Alcohol and Drug Abuse Patient Records regulations: The Federal rules restrict any use of the information to criminally investigate or prosecute any alcohol or drug abuse patient.[facility]In the event this information is protected by the Federal Confidentiality of Alcohol and Drug Abuse Patient Records regulations: The Federal rules restrict any use of the information to criminally investigate or prosecute any alcohol or drug abuse patient.[facility]In the event this information is protected by the Federal Confidentiality of Alcohol and Drug Abuse Patient Records regulations: The Federal rules restrict any use of the information to criminally investigate or prosecute any alcohol or drug abuse patient.[facility]In the event this information is protected by the Federal Confidentiality of Alcohol and Drug Abuse Patient Records regulations: The Federal rules restrict any use of the information to criminally investigate or prosecute any alcohol or drug abuse patient.[facility]In the event this information is protected by the Federal Confidentiality of Alcohol and Drug Abuse Patient Records regulations: The Federal rules restrict any use of the information to criminally investigate or prosecute any alcohol or drug abuse patient.[facility]In the event this information is protected by the Federal Confidentiality of Alcohol and Drug Abuse Patient Records regulations: The Federal rules restrict any use of the information to criminally investigate or prosecute any alcohol or drug abuse patient.[facility]In the event this information is protected by the Federal Confidentiality of Alcohol and Drug Abuse Patient Records regulations: The Federal rules restrict any use of the information to criminally investigate or prosecute any alcohol or drug abuse patient.[facility]In the event this information is protected by the Federal Confidentiality of Alcohol and Drug Abuse Patient Records regulations: The Federal rules restrict any use of the information to criminally investigate or prosecute any alcohol or drug abuse patient.[facility]In the event this information is protected by the Federal Confidentiality of Alcohol and Drug Abuse Patient Records regulations: The Federal rules restrict any use of the information to criminally investigate or prosecute any alcohol or drug abuse patient.[facility]In the event this information is protected by the Federal Confidentiality of Alcohol and Drug Abuse Patient Records regulations: The Federal rules restrict any use of the information to criminally investigate or prosecute any alcohol or drug abuse patient.[facility]In the event this information is protected by the Federal Confidentiality of Alcohol and Drug Abuse Patient Records regulations: The Federal rules restrict any use of the information to criminally investigate or prosecute any alcohol or drug abuse patient.[facility]In the event this information is protected by the Federal Confidentiality of Alcohol and Drug Abuse Patient Records regulations: The Federal rules restrict any use of the information to criminally investigate or prosecute any alcohol or drug abuse patient.[facility]In the event this information is protected by the Federal Confidentiality of Alcohol and Drug Abuse Patient Records regulations: The Federal rules restrict any use of the information to criminally investigate or prosecute any alcohol or drug abuse patient.[facility]In the event this information is protected by the Federal Confidentiality of Alcohol and Drug Abuse Patient Records regulations: The Federal rules restrict any use of the information to criminally investigate or prosecute any alcohol or drug abuse patient.[facility]In the event this information is protected by the Federal Confidentiality of Alcohol and Drug Abuse Patient Records regulations: The Federal rules restrict any use of the information to criminally investigate or prosecute any alcohol or drug abuse patient.[facility]In the event this information is protected by the Federal Confidentiality of Alcohol and Drug Abuse Patient Records regulations: The Federal rules restrict any use of the information to criminally investigate or prosecute any alcohol or drug abuse patient.[facility]In the event this information is protected by the Federal Confidentiality of Alcohol and Drug Abuse Patient Records regulations: The Federal rules restrict any use of the information to criminally investigate or prosecute any alcohol or drug abuse patient.[facility]In the event this information is protected by the Federal Confidentiality of Alcohol and Drug Abuse Patient Records regulations: The Federal rules restrict any use of the information to criminally investigate or prosecute any alcohol or drug abuse patient.[facility]In the event this information is protected by the Federal Confidentiality of Alcohol and Drug Abuse Patient Records regulations: The Federal rules restrict any use of the information to criminally investigate or prosecute any alcohol or drug abuse patient.[facility]In the event this information is protected by the Federal Confidentiality of Alcohol and Drug Abuse Patient Records regulations: The Federal rules restrict any use of the information to criminally investigate or prosecute any alcohol or drug abuse patient.[facility]In the event this information is protected by the Federal Confidentiality of Alcohol and Drug Abuse Patient Records regulations: The Federal rules restrict any use of the information to criminally investigate or prosecute any alcohol or drug abuse patient.[facility]In the event this information is protected by the Federal Confidentiality of Alcohol and Drug Abuse Patient Records regulations: The Federal rules restrict any use of the information to criminally investigate or prosecute any alcohol or drug abuse patient.[facility]In the event this information is protected by the Federal Confidentiality of Alcohol and Drug Abuse Patient Records regulations: The Federal rules restrict any use of the information to criminally investigate or prosecute any alcohol or drug abuse patient.[facility]In the event this information is protected by the Federal Confidentiality of Alcohol and Drug Abuse Patient Records regulations: The Federal rules restrict any use of the information to criminally investigate or prosecute any alcohol or drug abuse patient.[facility]In the event this information is protected by the Federal Confidentiality of Alcohol and Drug Abuse Patient Records regulations: The Federal rules restrict any use of the information to criminally investigate or prosecute any alcohol or drug abuse patient.[facility]In the event this information is protected by the Federal Confidentiality of Alcohol and Drug Abuse Patient Records regulations: The Federal rules restrict any use of the information to criminally investigate or prosecute any alcohol or drug abuse patient.[facility]In the event this information is protected by the Federal Confidentiality of Alcohol and Drug Abuse Patient Records regulations: The Federal rules restrict any use of the information to criminally investigate or prosecute any alcohol or drug abuse patient.[facility]In the event this information is protected by the Federal Confidentiality of Alcohol and Drug Abuse Patient Records regulations: The Federal rules restrict any use of the information to criminally investigate or prosecute any alcohol or drug abuse patient.[facility]In the event this information is protected by the Federal Confidentiality of Alcohol and Drug Abuse Patient Records regulations: The Federal rules restrict any use of the information to criminally investigate or prosecute any alcohol or drug abuse patient.[facility]In the event this information is protected by the Federal Confidentiality of Alcohol and Drug Abuse Patient Records regulations: The Federal rules restrict any use of the information to criminally investigate or prosecute any alcohol or drug abuse patient.[facility]In the event this information is protected by the Federal Confidentiality of Alcohol and Drug Abuse Patient Records regulations: The Federal rules restrict any use of the information to criminally investigate or prosecute any alcohol or drug abuse patient.[facility]In the event this information is protected by the Federal Confidentiality of Alcohol and Drug Abuse Patient Records regulations: The Federal rules restrict any use of the information to criminally investigate or prosecute any alcohol or drug abuse patient.[facility]In the event this information is protected by the Federal Confidentiality of Alcohol and Drug Abuse Patient Records regulations: The Federal rules restrict any use of the information to criminally investigate or prosecute any alcohol or drug abuse patient.[facility]In the event this information is protected by the Federal Confidentiality of Alcohol and Drug Abuse Patient Records regulations: The Federal rules restrict any use of the information to criminally investigate or prosecute any alcohol or drug abuse patient.[facility] the event this information is protected by the Federal Confidentiality of Alcohol and Drug Abuse Patient Records regulations: The Federal rules restrict any use of the information to criminally investigate or prosecute any alcohol or drug abuse patient.[facility]In the event this information is protected by the Federal Confidentiality of Alcohol and Drug Abuse Patient Records regulations: The Federal rules restrict any use of the information to criminally investigate or prosecute any alcohol or drug abuse patient.[facility]In the event this information is protected by the Federal Confidentiality of Alcohol and Drug Abuse Patient Records regulations: The Federal rules restrict any use of the information to criminally investigate or prosecute any alcohol or drug abuse patient.[facility]In the event this information is protected by the Federal Confidentiality of Alcohol and Drug Abuse Patient Records regulations: The Federal rules restrict any use of the information to criminally investigate or prosecute any alcohol or drug abuse patient.[facility]In the event this information is protected by the Federal Confidentiality of Alcohol and Drug Abuse Patient Records regulations: The Federal rules restrict any use of the information to criminally investigate or prosecute any alcohol or drug abuse patient.[facility]In the event this information is protected by the Federal Confidentiality of Alcohol and Drug Abuse Patient Records regulations: The Federal rules restrict any use of the information to criminally investigate or prosecute any alcohol or drug abuse patient.[facility]In the event this information is protected by the Federal Confidentiality of Alcohol and Drug Abuse Patient Records regulations: The Federal rules restrict any use of the information to criminally investigate or prosecute any alcohol or drug abuse patient.[facility]In the event this information is protected by the Federal Confidentiality of Alcohol and Drug Abuse Patient Records regulations: The Federal rules restrict any use of the information to criminally investigate or prosecute any alcohol or drug abuse patient.[facility]In the event this information is protected by the Federal Confidentiality of Alcohol and Drug Abuse Patient Records regulations: The Federal rules restrict any use of the information to criminally investigate or prosecute any alcohol or drug abuse patient.[facility]In the event this information is protected by the Federal Confidentiality of Alcohol and Drug Abuse Patient Records regulations: The Federal rules restrict any use of the information to criminally investigate or prosecute any alcohol or drug abuse patient.[facility]In the event this information is protected by the Federal Confidentiality of Alcohol and Drug Abuse Patient Records regulations: The Federal rules restrict any use of the information to criminally investigate or prosecute any alcohol or drug abuse patient.[facility]In the event this information is protected by the Federal Confidentiality of Alcohol and Drug Abuse Patient Records regulations: The Federal rules restrict any use of the information to criminally investigate or prosecute any alcohol or drug abuse patient.[facility]In the event this information is protected by the Federal Confidentiality of Alcohol and Drug Abuse Patient Records regulations: The Federal rules restrict any use of the information to criminally investigate or prosecute any alcohol or drug abuse patient.[facility]In the event this information is protected by the Federal Confidentiality of Alcohol and Drug Abuse Patient Records regulations: The Federal rules restrict any use of the information to criminally investigate or prosecute any alcohol or drug abuse patient.[facility]In the event this information is protected by the Federal Confidentiality of Alcohol and Drug Abuse Patient Records regulations: The Federal rules restrict any use of the information to criminally investigate or prosecute any alcohol or drug abuse patient.[facility]In the event this information is protected by the Federal Confidentiality of Alcohol and Drug Abuse Patient Records regulations: The Federal rules restrict any use of the information to criminally investigate or prosecute any alcohol or drug abuse patient.[facility]In the event this information is protected by the Federal Confidentiality of Alcohol and Drug Abuse Patient Records regulations: The Federal rules restrict any use of the information to criminally investigate or prosecute any alcohol or drug abuse patient.[facility]In the event this information is protected by the Federal Confidentiality of Alcohol and Drug Abuse Patient Records regulations: The Federal rules restrict any use of the information to criminally investigate or prosecute any alcohol or drug abuse patient.[facility]In the event this information is protected by the Federal Confidentiality of Alcohol and Drug Abuse Patient Records regulations: The Federal rules restrict any use of the information to criminally investigate or prosecute any alcohol or drug abuse patient.[facility]In the event this information is protected by the Federal Confidentiality of Alcohol and Drug Abuse Patient Records regulations: The Federal rules restrict any use of the information to criminally investigate or prosecute any alcohol or drug abuse patient.[facility]In the event this information is protected by the Federal Confidentiality of Alcohol and Drug Abuse Patient Records regulations: The Federal rules restrict any use of the information to criminally investigate or prosecute any alcohol or drug abuse patient.[facility]In the event this information is protected by the Federal Confidentiality of Alcohol and Drug Abuse Patient Records regulations: The Federal rules restrict any use of the information to criminally investigate or prosecute any alcohol or drug abuse patient.[facility]In the event this information is protected by the Federal Confidentiality of Alcohol and Drug Abuse Patient Records regulations: The Federal rules restrict any use of the information to criminally investigate or prosecute any alcohol or drug abuse patient.[facility]In the event this information is protected by the Federal Confidentiality of Alcohol and Drug Abuse Patient Records regulations: The Federal rules restrict any use of the information to criminally investigate or prosecute any alcohol or drug abuse patient.[facility]In the event this information is protected by the Federal Confidentiality of Alcohol and Drug Abuse Patient Records regulations: The Federal rules restrict any use of the information to criminally investigate or prosecute any alcohol or drug abuse patient.[facility]In the event this information is protected by the Federal Confidentiality of Alcohol and Drug Abuse Patient Records regulations: The Federal rules restrict any use of the information to criminally investigate or prosecute any alcohol or drug abuse patient.[facility]In the event this information is protected by the Federal Confidentiality of Alcohol and Drug Abuse Patient Records regulations: The Federal rules restrict any use of the information to criminally investigate or prosecute any alcohol or drug abuse patient.[facility]In the event this information is protected by the Federal Confidentiality of Alcohol and Drug Abuse Patient Records regulations: The Federal rules restrict any use of the information to criminally investigate or prosecute any alcohol or drug abuse patient.[facility] CenterIn the event this information is protected by the Federal Confidentiality of Alcohol and Drug Abuse Patient Records regulations: The Federal rules restrict any use of the information to criminally investigate or prosecute any alcohol or drug abuse patient.[facility] CenterIn the event this information is protected by the Federal Confidentiality of Alcohol and Drug Abuse Patient Records regulations: The Federal rules restrict any use of the information to criminally investigate or prosecute any alcohol or drug abuse patient.[facility] CenterIn the event this information is protected by the Federal Confidentiality of Alcohol and Drug Abuse Patient Records regulations: The Federal rules restrict any use of the information to criminally investigate or prosecute any alcohol or drug abuse patient.[facility] CenterIn the event this information is protected by the Federal Confidentiality of Alcohol and Drug Abuse Patient Records regulations: The Federal rules restrict any use of the information to criminally investigate or prosecute any alcohol or drug abuse patient.[facility] CenterIn the event this information is protected by the Federal Confidentiality of Alcohol and Drug Abuse Patient Records regulations: The Federal rules restrict any use of the information to criminally investigate or prosecute any alcohol or drug abuse patient.[facility] CenterIn the event this information is protected by the Federal Confidentiality of Alcohol and Drug Abuse Patient Records regulations: The Federal rules restrict any use of the information to criminally investigate or prosecute any alcohol or drug abuse patient.[facility] CenterIn the event this information is protected by the Federal Confidentiality of Alcohol and Drug Abuse Patient Records regulations: The Federal rules restrict any use of the information to criminally investigate or prosecute any alcohol or drug abuse patient.[facility] CenterIn the event this information is protected by the Federal Confidentiality of Alcohol and Drug Abuse Patient Records regulations: The Federal rules restrict any use of the information to criminally investigate or prosecute any alcohol or drug abuse patient.[facility] CenterIn the event this information is protected by the Federal Confidentiality of Alcohol and Drug Abuse Patient Records regulations: The Federal rules restrict any use of the information to criminally investigate or prosecute any alcohol or drug abuse patient.[facility] CenterIn the event this information is protected by the Federal Confidentiality of Alcohol and Drug Abuse Patient Records regulations: The Federal rules restrict any use of the information to criminally investigate or prosecute any alcohol or drug abuse patient.[facility] CenterIn the event this information is protected by the Federal Confidentiality of Alcohol and Drug Abuse Patient Records regulations: The Federal rules restrict any use of the information to criminally investigate or prosecute any alcohol or drug abuse patient.[facility] CenterIn the event this information is protected by the Federal Confidentiality of Alcohol and Drug Abuse Patient Records regulations: The Federal rules restrict any use of the information to criminally investigate or prosecute any alcohol or drug abuse patient.[facility] CenterIn the event this information is protected by the Federal Confidentiality of Alcohol and Drug Abuse Patient Records regulations: The Federal rules restrict any use of the information to criminally investigate or prosecute any alcohol or drug abuse patient.[facility] CenterIn the event this information is protected by the Federal Confidentiality of Alcohol and Drug Abuse Patient Records regulations: The Federal rules restrict any use of the information to criminally investigate or prosecute any alcohol or drug abuse patient.[facility] CenterIn the event this information is protected by the Federal Confidentiality of Alcohol and Drug Abuse Patient Records regulations: The Federal rules restrict any use of the information to criminally investigate or prosecute any alcohol or drug abuse patient.[facility] CenterIn the event this information is protected by the Federal Confidentiality of Alcohol and Drug Abuse Patient Records regulations: The Federal rules restrict any use of the information to criminally investigate or prosecute any alcohol or drug abuse patient.[facility] CenterIn the event this information is protected by the Federal Confidentiality of Alcohol and Drug Abuse Patient Records regulations: The Federal rules restrict any use of the information to criminally investigate or prosecute any alcohol or drug abuse patient.[facility] CenterIn the event this information is protected by the Federal Confidentiality of Alcohol and Drug Abuse Patient Records regulations: The Federal rules restrict any use of the information to criminally investigate or prosecute any alcohol or drug abuse patient.[facility] CenterIn the event this information is protected by the Federal Confidentiality of Alcohol and Drug Abuse Patient Records regulations: The Federal rules restrict any use of the information to criminally investigate or prosecute any alcohol or drug abuse patient.[facility] CenterIn the event this information is protected by the Federal Confidentiality of Alcohol and Drug Abuse Patient Records regulations: The Federal rules restrict any use of the information to criminally investigate or prosecute any alcohol or drug abuse patient.[facility] CenterIn the event this information is protected by the Federal Confidentiality of Alcohol and Drug Abuse Patient Records regulations: The Federal rules restrict any use of the information to criminally investigate or prosecute any alcohol or drug abuse patient.[facility] CenterIn the event this information is protected by the Federal Confidentiality of Alcohol and Drug Abuse Patient Records regulations: The Federal rules restrict any use of the information to criminally investigate or prosecute any alcohol or drug abuse patient.[facility] Reason for Visit (unrecogniz ed section [...] 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, 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 Reason Comments PT Eval Specialty Diagnoses / Procedures Referred By Contac t Referred To Contact [facility] Diagnoses Right leg pain Procedures CONSULT TO PHYSICAL THERAPY PHYSICAL THERAPY EVALUATION HIGH COMPLEX 45 MINS Win Mejia MD [address] [place] [address] [facility] [address] [place] [address] Referral ID Status Reason Start Date Expiration Date V isits Requested Visits Authorized [id number] Closed Auto-Generate d Referral 05/28/2022 07/25/2022 1 [...] Therapy Specialty Diagnoses / Procedures Referred By Contac t Referred To Contact [facility] Diagnoses Right leg pain Procedures PT REHAB FOLLOW UP ORDER THERAPEUTIC EXERCISES RE, EA 15 MIN. Win Mejia MD [address] [place] [address] [facility] [address] [place] [address] Referral ID Status Reason Start Date Expiration Date Visits Requested Visits Authorized [id number] Authorized PCP Requested Referral Auto-Generate d Referral 09/13/2022 12 12 Reason Comments Spirometry Specialty Diagnoses / Procedures Referred By Contac t Referred To Contact [facility] Diagnoses COPD, mild (HCC) Procedures SPIROMETRY BASELINE ONLY SPMTRY W/VC EXPIRATORY REEMA W/WO MXML VOL FANTATJ Juana Gallegos PA-C [address] [place] [address] [facility] [address] [place] [address] Referral ID Status Reason Start Date Expiration Date V isits Requested Visits Authorized [id number] Closed Auto-Generate d Referral 10/02/2021 11/01/2022 1 [...] without obstruction Juana Villegas PA-C [address] [place] [address] Momo Wright III, DO [address] [address] Referral ID Status Reason Start Date Expiration Date V isits Requested Visits Authorized [id number] Pending Review 08/12/2023 08/11/2024 1 1 Care Teams (unrecognized sec tion and content) Prehemmer Relationship Specialty Start Date End Date Win Mejia MD [address] [facility] [address] PCP - General Family Practice 01/11/19 Prehemmer Relationship Specialty Start Date End Date Win Mejia MD [address] [place] [address] PCP - General Family Practice 01/11/19 Prehemmer Relationship Specialty Start Date End Date Win Mejia MD [address] [place] [address] PCP - General Family Practice 01/11/19 Prehemmer Relationship Specialty Start Date End Date Win Mejia MD [address] [place] [address] PCP - General Family Practice 01/11/19 Prehemmer Relationship Specialty Start Date End Date Win Mejia MD [address] [place] [address] PCP - General Family Practice 01/11/19 Prehemmer Relationship Specialty Start Date End Date Win Mejia MD [address] [place] [address] PCP - General Family Practice 01/11/19 Prehemmer Relationship Specialty Start Date End Date Win Mejia MD [address] [place] [address] PCP - General Family Practice 01/11/19 Prehemmer Relationship Specialty Start Date End Date Win Mejia MD [address] [place] [address] PCP - General Family Practice 01/11/19 Prehemmer Relationship Specialty Start Date End Date Win Mejia MD [address] [place] [address] PCP - General Family Practice 01/11/19 Prehemmer Relationship Specialty Start Date End Date Win Mejia MD [address] [place] [address] PCP - General Family Practice 01/11/19 Prehemmer Relationship Specialty Start Date End Date Win Mejia MD [address] [place] [address] PCP - General Family Practice 01/11/19 Prehemmer Relationship Specialty Start Date End Date Win Mejia MD [facility] [place] [address] PCP - General Family Practice 01/11/19 Prehemmer Relationship Specialty Start Date End Date Win Mejia MD [facility] [place] [address] PCP - General Family Practice 01/11/19 Prehemmer Relationship Specialty Start Date End Date Win Mejia MD [facility] [place] [address] PCP - General Family Practice 01/11/19 Prehemmer Relationship Specialty Start Date End Date Win Mejia MD [address] [place] [address] PCP - General Family Practice 01/11/19 Prehemmer Relationship Specialty Start Date End Date Win Mejia MD [address] [place] [address] PCP - General Family Practice 01/11/19 Prehemmer Relationship Specialty Start Date End Date Win Mejia MD [address] [place] [address] PCP - General Family Practice 01/11/19 Prehemmer Relationship Specialty Start Date End Date Win Mejia MD [address] [place] [address] PCP - General Family Practice 01/11/19 Prehemmer Relationship Specialty Start Date End Date Win Mejia MD [address] [place] [address] PCP - General Family Practice 01/11/19 Prehemmer Relationship Specialty Start Date End Date Win Mejia MD [address] [place] [address] PCP - General Family Medicine 01/11/19 Prehemmer Relationship Specialty Start Date End Date Win Mejia MD [address] [place] [address] PCP - General Family Medicine 01/11/19 Prehemmer Relationship Specialty Start Date End Date Win Mejia MD [address] [place] [address] PCP - General Family Medicine 01/11/19 Prehemmer Relationship Specialty Start Date End Date Win Mejia MD [address] [place] [address] PCP - General Family Medicine 01/11/19 Prehemmer Relationship Specialty Start Date End Date Win Mejia MD [address] [place] [address] PCP - General Family Medicine 01/11/19 Prehemmer Relationship Specialty Start Date End Date Win Mejia MD [address] [place] [address] PCP - General Family Medicine 01/11/19 Prehemmer Relationship Specialty Start Date End Date Win Mejia MD [address] [place] [address] PCP - General Family Medicine 01/11/19 Prehemmer Relationship Specialty Start Date End Date Win Mejia MD [address] [place] [address] PCP - General Family Medicine 01/11/19 Prehemmer Relationship Specialty Start Date End Date Win Mejia MD [address] [place] [address] PCP - General Family Medicine 01/11/19 Prehemmer Relationship Specialty Start Date End Date Win Mejia MD [address] [place] [address] PCP - General Family Medicine 01/11/19 Prehemmer Relationship Specialty Start Date End Date Win Mejia MD [address] [place] [address] PCP - General Family Medicine 01/11/19 Prehemmer Relationship Specialty Start Date End Date Win Mejia MD [address] [place] [address] PCP - General Family Medicine 01/11/19 Prehemmer Relationship Specialty Start Date End Date Win Mejia MD [address] [place] [address] PCP - General Family Medicine 01/11/19 Prehemmer Relationship Specialty Start Date End Date Win Mejia MD [address] [place] [address] PCP - General Family Medicine 01/11/19 Prehemmer Relationship Specialty Start Date End Date Win Mejia MD [address] [place] [address] PCP - General Family Medicine 01/11/19 Prehemmer Relationship Specialty Start Date End Date Win Mejia MD [address] [place] [address] PCP - General Family Medicine 01/11/19 Prehemmer Relationship Specialty Start Date End Date Win Mejia MD [address] [place] [address] PCP - General Family Medicine 01/11/19 Prehemmer Relationship Specialty Start Date End Date Win Mejia MD [address] [place] [address] PCP - General Family Medicine 01/11/19 Prehemmer Relationship Specialty Start Date End Date Win Mejia MD [address] [place] [address] PCP - General Family Medicine 01/11/19 Prehemmer Relationship Specialty Start Date End Date Win Mejia MD [address] [place] [address] PCP - General Family Medicine 01/11/19 Prehemmer Relationship Specialty Start Date End Date Win Mejia MD [address] [place] [address] PCP - General Family Medicine 01/11/19 Prehemmer Relationship Specialty Start Date End Date Win Mejia MD [address] [place] [address] PCP - General Family Medicine 01/11/19 Prehemmer Relationship Specialty Start Date End Date Win Mejia MD [address] [place] [address] PCP - General Family Medicine 01/11/19 Prehemmer Relationship Specialty Start Date End Date Win Mejia MD [address] [place] [address] PCP - General Family Medicine 01/11/19 Prehemmer Relationship Specialty Start Date End Date Win Mejia MD [address] [place] [address] PCP - General Family Medicine 01/11/19 Prehemmer Relationship Specialty Start Date End Date Win Mejia MD [address] [place] [address] PCP - General Family Medicine 01/11/19 Prehemmer Relationship Specialty Start Date End Date Win Mejia MD [address] [place] [address] PCP - General Family Medicine 01/11/19 Prehemmer Relationship Specialty Start Date End Date Win Mejia MD [address] [place] [address] PCP - General Family Medicine 01/11/19 Prehemmer Relationship Specialty Start Date End Date Win Mejia MD [address] [place] [address] PCP - General Family Medicine 01/11/19 Prehemmer Relationship Specialty Start Date End Date Win Mejia MD [address] [place] [address] PCP - General Family Medicine 01/11/19 Prehemmer Relationship Specialty Start Date End Date Win Mejia MD [address] [place] [address] PCP - General Family Medicine 01/11/19 Prehemmer Relationship Specialty Start Date End Date Win Mejia MD [address] [place] [address] PCP - General Family Medicine 01/11/19 Prehemmer Relationship Specialty Start Date End Date Win Mejia MD [address] [place] [address] PCP - General Family Medicine 01/11/19 Prehemmer Relationship Specialty Start Date End Date Win Mejia MD [address] [place] [address] PCP - General Family Medicine 01/11/19 Prehemmer Relationship Specialty Start Date End Date Win Mejia MD [address] [place], [place] [address] PCP - General Family Medicine 01/11/19 Prehemmer Relationship Specialty Start Date End Date System, Provider Not In PCP - General 04/29/23 Prehemmer Relationship Specialty Start Date End Date Juana Villegas PA-C [address] [place] [address] PCP - General Emergency Medicine 08/18/23 Prehemmer Relationship Specialty Start Date End Date Juana Villegas PA-C [address] [place] [address] PCP - General Emergency Medicine 08/18/23 FOR [...] BE BASED ON THE PRIMARY CLINICAL RECORDS. [facility] [email or web address] [facility]. provides no warranty or guarantee of the accuracy or completeness of information in this document.
== END | disposition home or self-care (01) ==
LOC: US 07:18
PROVIDERS: PCP Family Medicine; Referring Provider Physician Assistant; Visit Provider Physician Assistant
DX: K80.20 Calculus of gallbladder without cholecystitis without obstruction (principal)
CPT/HCPCS: 76705

== ENCOUNTER → 2023-12-22 | Outpatient (CLI) | payer MEDICARE, SELFPAY ==
--- NOTE | 2023-12-22 09:33 | BI_ITS ---
MAMMOGRAPHY - BILATERAL SCREENING REASON FOR EXAM: Female, 43 years old. Routine annual screening examination. PERTINENT HISTORY: Non-contributory. TECHNIQUE: Digital bilateral breast mayo (3D mammographic acquisition) in the CC and MLO projections. 2-D mediolateral oblique (MLO) and craniocaudad (CC) views of both breasts were obtained. CAD: Full Field Digital Mammography with Computer Added Detection was performed. COMPARISON: Comparison is made with prior outside examination dated August 19, 2021. FINDINGS: Breast Composition: There are scattered areas of fibroglandular density. There are no dominant masses or suspicious calcifications. No other significant abnormalities are identified. There has been no significant change since the prior study. BI/SCRN MAMM (CAD)W/MAYO BILAT IMPRESSION: Stable bilateral screening mammogram. Yearly follow-up mammogram recommended. (A) ASSESSMENT CATEGORY: BIRADS Category 1: Negative. A letter regarding these results will be sent to the patient by the facility within 30 days. Approximately 10% of breast cancers are not detected by mammography. A normal mammogram should not delay biopsy of a clinically suspicious abnormality. [id number] Electronically Signed: Shree Das MD at 9:11 EDT ,
== END | disposition home or self-care (01) ==
LOC: OPBI 09:33
PROVIDERS: PCP Family Medicine; Referring Provider Family Medicine; Visit Provider Family Medicine
DX: Z12.31 Encounter for screening mammogram for malignant neoplasm of breast (principal)
CPT/HCPCS: 77063; 77067

== ENCOUNTER 2023-12-23 11:21 | Emergency (ER) | payer MEDICARE, SELFPAY ==
[2023-12-23 11:22] VITALS: BP 131/95; PULSE 104; RESP 16; TEMP 36.1; O2SAT 99; BMI 31.3
--- NOTE | 2023-12-23 12:16 | US_ITS ---
STUDY: ABDOMINAL ULTRASOUND - RIGHT UPPER QUADRANT REASON FOR VISIT: Female, 43 years old cholelithiasis and pain TECHNIQUE: Ultrasound evaluation of the right upper quadrant was performed with real-time and static crooks-scale imaging. TECHNICAL QUALITY: Adequate. COMPARISON: Comparison is made with prior sonogram of the right upper quadrant dated November 10, 2023. FINDINGS: Liver: The liver measures 17.4 cm. Mild degree of fatty infiltration of the liver. The bile ducts are within normal limits. There is hepatic color flow. The direction of portal flow is hepatopetal. There is no demonstrated mass lesion. Gallbladder: There is a contracted gallbladder. The gallbladder wall measures 2.3 mm. There is a negative sonographic Pantoja''s sign. There is no pericholecystic fluid. There are multiple echogenic structures within the gallbladder, consistent with multiple gallstones. Common Bile Duct (C.B.D.): The common bile duct measures 5 mm. Pancreas: Normal size of the head, body and tail of the pancreas. There is increased echogenicity of the pancreas. There is no demonstrated pancreatic mass or cyst. Right Kidney: Normal size of the right kidney. The right kidney measures 11.4 cm x 5.7 cm x 4.4 cm. Normal renal cortex. The right cortex measures 1.1 cm. There is no demonstrated renal mass or cyst. There is no right hydronephrosis. US/Gallbladder IMPRESSION: Contracted stone filled gallbladder. Mild degree of fatty infiltration of the liver. Electronically Signed: Shree Das MD at 14:20 EDT ,
--- NOTE | 2023-12-23 12:17 | EX.ED.DYSGE1 ---
HPI History of Present Illness Chief Complaint: Abd Pain Informant: patient Narrative Narrative: 43-year-old female presenting to the emergency room with multiple complaints. Patient states for about 2 weeks she has had pain in her upper left back going into the whole arm except for the wrist and the hand. It is worse when she puts pressure on her forearm. She states she has been trying to rest it but her purse is heavy. She states that hot showers are not helping. Patient also states she has had a runny nose for a week. She also notes that she has a history of environmental allergens and was seen by ENT who recommended allergy shots which she declined. She states that she has felt fatigued for a week. States this morning before she ate she had an episode of sudden onset vomiting. She notes upper right left and epigastric pain. States she was diagnosed with gallstones after a gallbladder attack in [place] but did not get to see a surgeon because she moved to [place]. She states she had a gallbladder ultrasound in November and was told that she should follow-up with surgery which she has not yet done. Patient did eat breakfast sandwich that was delivered from [employer]. That did not cause any increase in pain or vomiting. Patient states that she was treated 1 to 2 months ago for urinary tract infection and continues to have dysuria. She is not sure which antibiotic she was on. [facility] Medical History Anemia Anxiety Arthritis ASTHMA Bipolar 1 disorder Chest pain Chronic bronchitis Chronic cough Depression Difficulty balancing Emotional problems Fatigue Gallstones GERD (gastroesophageal reflux disease) History of behavioral and mental health problems Hypertension Nausea and vomiting NECK/BACK PAIN OCD (obsessive compulsive disorder) PTSD (post-traumatic stress disorder) Right leg pain Sciatica Scoliosis Seizures Severe headache Shoulder pain Stomach ulcer Home Medications loratadine 10 mg capsule 10 mg PO DAILY 09/03/18 [History Last Taken Unknown] multivitamin 1 ea PO DAILY 09/03/18 [History Last Taken Unknown] Lactobacillus rhamnosus GG 10 billion cell capsule (Culturelle) 1 cap PO DAILY 01/25/21 [History Last Taken Unknown] cariprazine 1.5 mg capsule (Vraylar) 1.5 mg PO DAILY 04/05/21 [History Last Taken Unknown] medroxyprogesterone 150 mg/mL intramuscular suspension (Depo-Provera) 150 mg IM Q12W 07/14/22 [History Last Taken Unknown] ascorbic acid (vitamin C) 500 mg tablet (Vitamin C) 500 mg PO DAILY 07/28/22 [History Last Taken Unknown] pantoprazole 40 mg tablet,delayed release 40 mg PO DAILY #30 tabs 07/28/22 [Rx Last Taken Unknown] lamotrigine 25 mg tablet (Lamictal) 50 mg PO DAILY 02/02/23 [History Last Taken Unknown] albuterol sulfate 90 mcg/actuation aerosol inhaler 1 inh inhalation ONCE PRN shortness of breath or wheezing #6.7 grams 10/26/23 [Rx Last Taken Unknown] benztropine 1 mg tablet 1 mg PO DAILY 10/26/23 [History Last Taken Unknown] cholecalciferol (vitamin D3) 50 mcg (2,000 unit) tablet (Vitamin D3) 50 mcg PO DAILY 10/26/23 [History Last Taken Unknown] neilmed nasamist See Rx Instructions .Route .COMPLEX #1 BOTTLE 11/01/23 [Rx Last Taken Unknown] propranolol 10 mg tablet 10 mg PO DAILY #90 tabs 11/02/23 [Rx Last Taken Unknown] ciprofloxacin HCl 250 mg tablet 250 mg PO BID #14 tabs 11/15/23 [Rx Last Taken Unknown] medroxyprogesterone 104 mg/0.65 mL subcutaneous syringe (Depo-SubQ provera 104) 104 mg (0.65 mL) subcut [id number] #0.65 mL 12/13/23 [Rx Last Taken Unknown] Allergy/AdvReac Type Severity Reaction Status Date / Time influenza virus vaccine, Allergy Other Verified 11/29/23 12:40 specific [influenza virus vacc,specific] iodine Allergy Rash Verified 11/29/23 12:40 Latex, Natural Rubber Allergy Rash Verified 11/29/23 12:40 rampart Allergy Anaphylaxis Verified 11/29/23 12:40 meloxicam Allergy Other Verified 11/29/23 12:40 metronidazole [From Flagyl] Allergy Hives Verified 11/29/23 12:40 montelukast [From Singulair] Allergy Rash Verified 11/29/23 12:40 morphine Allergy Other Verified 11/29/23 12:40 Penicillins [PCN] Allergy Unknown Verified 11/29/23 12:40 Seasonal Allergies: Uncoded Allergy NEEDS Verified 11/29/23 12:40 FOLLOW-UP clindamycin AdvReac Nausea/Vom/ Verified 11/29/23 12:40 Diarrhea doxycycline AdvReac Nausea Verified 11/29/23 12:40 Hand [employer] AdvReac Hives Verified 11/29/23 12:40 prednisone AdvReac Other Verified 11/29/23 12:40 soap AdvReac Hives Verified 11/29/23 12:40 Family History Brother Hypertension Bipolar affect, depressed Alcoholism Mother Alcoholism Blood clot in vein Hypertension CVA (cerebral vascular accident) Seizures Father Cancer Hypertension Surgical History History of colonoscopy History of endoscopy No pertinent past surgical history Social History household members: none Smoking Status: Current every day smoker tobacco type: cigarettes Tobacco: How many years used: 24 second hand exposure: Yes alcohol intake: former year quit: 2020 substance use type: former substance user Date of last use: 2003; ACID, COCAINE, POT what type of physical activity do you participate in: walking frequency: daily seatbelt use: always do you feel safe at home: Yes ROS ROS ED ROS Narrative Generalized fatigue Constitutional Constitutional ED: Denies chills, fever(s) or weight loss Eyes Eyes: Denies change in vision or diplopia ENT ENT ED: Reports rhinorrhea; Denies ear pain or sore throat Cardiovascular Cardiovascular: Denies chest pain, orthopnea, palpitations or racing heartbeat Respiratory/Chest Respiratory/Chest: Denies cough, dyspnea or orthopnea Gastrointestinal Gastrointestinal: Reports abdominal pain, nausea and vomiting; Denies constipation or diarrhea Genitourinary Genitourinary ED: Reports dysuria; Denies hematuria or urinary frequency Musculoskeletal Musculoskeletal: Denies arthralgias or myalgias Integumentary Denies abscess or rash Neurologic Neurologic: Denies headache(s) or weakness Psychiatric Psychiatric: Denies anxiety, depression, suicidal ideation or suicidal thoughts Endocrine Endocrinology: Denies polydipsia, polyphagia or polyuria Allergic/Immunologic Allergic/Immunologic ED: Denies mouth swelling, tongue swelling or urticaria EXAM Physical Exam Const Vital Signs: 12/23/23 11:22 12/23/23 13:21 12/23/23 15:02 Temperature 97 F L 98.1 F Temperature Source Temporal Pulse Rate 104 H 97 72 Respiratory Rate 16 14 15 Blood Pressure 131/95 H 127/89 H 134/69 H Blood Pressure Mean 107 101 90 Pulse Ox 99 99 97 Oxygen Delivery Method Room Air Room Air Positive well nourished, well developed and obese General Appearance ED: well developed Nutritional Appearance: obese HEENT Reports normocephalic, head/scalp atraumatic and moist mucous membranes Eyes PERRL and EOMs intact bilaterally Neck no lymphadenopathy, supple and no JVD Resp normal respiratory effort and clear to auscultation bilaterally Cardio regular rate, regular rhythm and no murmurs GI Palpation: soft and tender epigastric, LUQ and RUQ Back/Spine no CVA tenderness and normal ROM Extremity Extremity Narrative: Diffusely tender to palpation from mid forearm approximately. There is no deformity no rashes no swelling. She appears to be moving the arm normally. She reports tenderness to palpation diffusely across the scapula the periscapular region. General Extremety ED: Negative for edema General Extremity: Negative for edema Neuro oriented x3 and CN's II-XII intact bilaterally Sensorium / Orientation: alert Motor Exam: strength 5/5 throughout Psych mental status grossly normal Mood & Affect: Negative for depressed or tearful Skin no rashes or lesions noted and no wounds MDM MDM MDM Narrative Medical decision making narrative: Patient is very difficult to try to get a clear history on. When asked very directly when her pain began she states I do not know it is very hard for me to figure that out I should probably take better notes. As best as she can determine she tells me it has been at least a week that she is at the upper abdominal pain. It did not get worse after she ate a egg croissant from [employer]. She has a contracted gallbladder with cholelithiasis. White count is elevated at 14 with a normal differential. LFTs and lipase are normal. BNP is normal. Urinalysis shows no overt infection. I think that this is less likely to be acute biliary colic. She does not wish to change her pantoprazole. She states that other GERD medications tear her stomach up. I am encouraging her to adhere to a gallbladder diet and to establish a follow-up visit with general surgery. She believes her primary care has referred her to 1. History & Record Review Discussion w/independent historian: Patient Additional record(s) reviewed:: Prior outpatient record, Prior ED visit and Prior labs Lab Data Attestation: I reviewed the patient's lab results. Labs: Laboratory Results - last 24 hr 12/23/23 12:30 WBC 14.0 H RBC 5.23 Hgb 14.9 Hct 45.6 MCV 87.2 MCH 28.5 MCHC 32.7 RDW Std Deviation 40.1 RDW Coeff of Lev 12.5 Plt Count 243 MPV 10.7 Immature Gran % (Auto) 0.400 Neut % (Auto) 66.6 Lymph % (Auto) 25.3 [place] % (Auto) 5.1 Eos % (Auto) 2.1 Baso % (Auto) 0.5 Absolute Neuts (auto) 9.3 H Absolute Lymphs (auto) 3.53 Nucleated RBC % 0 Sodium 138 Potassium 4.1 Chloride 109 H Carbon Dioxide 24.0 Anion Gap 5 BUN 16 Creatinine 0.88 Estim Creat Clear Calc 93.35 Est GFR (MDRD) Af Amer 89 Est GFR (MDRD) Non-Af 73 BUN/Creatinine Ratio 18.1 Glucose 93 Calcium 9.4 Total Bilirubin 0.60 Direct Bilirubin 0.11 AST 17 ALT 22 Alkaline Phosphatase 74 Total Protein 8.0 Albumin 4.2 Globulin 3.8 Lipase 45 Serum , Qual NEGATIVE Urine Color Yellow Urine Clarity Clear Urine pH 6.0 Ur Specific [place] 1.015 Urine Protein 15 H Urine Glucose (UA) Normal Urine Ketones Negative Urine Occult Blood Negative Urine Nitrite Negative Urine Bilirubin Negative Urine Urobilinogen Normal Ur Leukocyte Esterase 25 H Urine RBC 0 SEEN Urine WBC 0-5 SEEN Ur Squamous Epith Cells 5-10 SEEN Urine Bacteria 0 SEEN Urine Mucus 0 SEEN Radiography Diagnostic Testing: Clinical Impression(s) from Imaging Studies Gallbladder Ultrasound 12/23/23 12:16 IMPRESSION: Contracted stone filled gallbladder. Mild degree of fatty infiltration of the liver. Electronically Signed: Shree Das MD at 14:20 EDT , Discharge Plan Triage Chief Complaint: Abd Pain ED Provider: Stephan Madiosn Dx/Rx/DC Orders Clinical Impression: Arm pain, left, Gastroesophageal reflux disease, Abdominal pain, Cholelithiasis Instructions: What Are Gallstones Prescriptions: No Action medroxyprogesterone [Depo-Provera] 150 mg/mL suspension 150 mg IM Q12W albuterol sulfate 90 mcg/actuation HFA aerosol inhaler 1 inh inhalation ONCE PRN (Reason: shortness of breath or wheezing) Qty: 6.7 2RF propranolol 10 mg tablet 10 mg PO DAILY Qty: 90 1RF ciprofloxacin HCl 250 mg tablet 250 mg PO BID Qty: 14 0RF multivitamin 1 EACH tablet 1 ea PO DAILY loratadine 10 MG capsule 10 mg PO DAILY cholecalciferol (vitamin D3) [Vitamin D3] 50 mcg (2,000 unit) tablet 50 mcg PO DAILY Culturelle 10 billion cell Capsule 1 cap PO DAILY Vraylar 1.5 mg Capsule 1.5 mg PO DAILY ascorbic acid (vitamin C) [Vitamin C] 500 mg tablet 500 mg PO DAILY pantoprazole 40 mg Tablet,Delayed Release (Dr/Ec) 40 mg PO DAILY Qty: 30 0RF lamotrigine [Lamictal] 25 mg Tablet 50 mg PO DAILY benztropine 1 mg tablet 1 mg PO DAILY neilmed nasamist See Rx Instructions .ROUTE .COMPLEX Qty: 1 8RF Rx Instructions: spray three times a day; Depo-SubQ provera 104 104 mg/0.65 mL syringe 104 mg subcut [id number] Qty: 0.65 3RF Primary Care Provider: Paul Ferrara Referrals: Paul Ferrara, DO [Primary Care Provider] - Activity Restrictions/Additional Instructions: I strongly urged you to follow-up make an appointment with the surgeon you were referred to by primary care. Eventually your gallbladder disease will become very problematic. It is best to intervene on this prior to it becoming an emergency I would avoid fatty greasy foods. Disposition Disposition: Home, Self Care Discharge Date/Time: 12/23/23 15:03
[2023-12-23 12:38] LABS: Bacteria 0 SEEN /hpf (None Seen); Mucous, Urine 0 SEEN /hpf (<or=2+); Red Blood Cells-Urine 0 SEEN /hpf (0-5)
[2023-12-23 12:42] LABS: Color, Urine Yellow (Yellow); Glucose, Dipstick Normal (Normal); Ketone-Dipstick Negative (Negative); Leukocyte Esterase-Dipstick 25 /ul (Negative); Nitrite-Dipstick Negative (Negative); Occult Blood-Urine Negative /ul (Negative); Protein-Dipstick 15 mg/dl (Negative); Specific Gravity, Urine 1.015 (1.002-1.030); Urine Bilirubin Dipstick Negative (Negative); Urine Clarity Clear (Clear); Urine Urobilinogen Normal (Normal)
[2023-12-23 12:46] LABS: Absolute Lymphocyte Count 3.53 X10^3/uL (0.83-4.51); Absolute Neutrophil Count 9.3 X10^3/uL (2.0-7.7); Basophil# 0.07 X10^3/uL; Basophil% 0.5 % (0-1); Eosinophil# 0.29 X10^3/uL; Eosinophils% 2.1 % (0-5); Hematocrit 45.6 % (37-47); Hemoglobin 14.9 g/dL (12.0-15.0); Lymphocyte # 3.53 X10^3/ul (0.83-4.51); Lymphocyte % 25.3 % (19-41); Mean Corp Hgb Conc 32.7 g/dL (32-36); Mean Corpuscular Hgb 28.5 pg (27.0-32.0); Mean Corpuscular Volume 87.2 fL (81-99); Mean Platelet Vol. 10.7 fl (6.2-12.0); Monocyte# 0.71 X10^3/uL; Monocyte% 5.1 % (0-10); NRBC Flagged by Analyzer 0 % (0-5); Neutrophil # 9.29 X10^3/uL (2.7-7.7); Neutrophil % 66.6 % (47-70); Platelet Count 243 K/mm3 (150-450); RBC Distribution Width CV 12.5 % (11.6-14.6); RBC Distribution Width SD 40.1 fl (35.1-43.9); Red Blood Count 5.23 M/mm3 (4.2-5.4)
[2023-12-23 12:55] LABS: Internal QC Validated? YES +Cl - CLEAR BKGD; Pregnancy, Serum, hCG Quali. NEGATIVE Negative; Squamous Epithelial Cells - UA 5-10 SEEN /hpf (5-10)
[2023-12-23 12:56] LABS: White Blood Cells 0-5 SEEN /hpf (0-5)
[2023-12-23 12:58] LABS: AST(SGOT) 17 U/L (15-37); Alanine Aminotransfer ALT/SGPT 22 U/L (13-56); Albumin, Serum 4.2 g/dL (3.2-5.0); Alkaline Phosphatase 74 U/L (45-117); Anion Gap 5 (5-15); BUN 16 mg/dL (7-18); BUN/Creat Ratio 18.1 RATIO (10-20); Bilirubin, Direct 0.11 mg/dL (0.00-0.30); Calcium,Total 9.4 mg/dL (8.5-10.1); Chloride 109 mmol/L (98-107); Creatinine, Serum 0.88 mg/dL (0.55-1.02); EST Glomerular Filtration Rate 73 mL/min (>60); Est Glom Filt Rate - Afr Amer 89 mL/min (>60); Estimated Creatinine Clearance 93.35 ml/min; Globulin 3.8 g/dL (2.2-4.2); Glucose 93 mg/dL (74-106); Lipase 45 U/L (13-75); Potassium 4.1 mmol/L (3.5-5.1); Sodium Level 138 mmol/L (136-145)
[2023-12-23 13:21] VITALS: BP 127/89; PULSE 97; RESP 14; O2SAT 99
[2023-12-23 15:02] VITALS: BP 134/69; PULSE 72; RESP 15; TEMP 36.7; O2SAT 97
== END 2023-12-23 15:03 | disposition home or self-care (01) ==
PROVIDERS: Emergency Provider Emergency Medicine; PCP Family Medicine; Visit Provider Emergency Medicine
DX: R10.9 Unspecified abdominal pain (principal); F31.9 Bipolar disorder, unspecified; R56.9 Unspecified convulsions; K80.70 Calculus of gallbladder and bile duct without cholecystitis without obstruction; K21.9 Gastro-esophageal reflux disease without esophagitis; M79.602 Pain in left arm; F17.210 Nicotine dependence, cigarettes, uncomplicated; I10 Essential (primary) hypertension; Z79.899 Other long term (current) drug therapy
CPT/HCPCS: 76705; 80048; 80076; 81001; 83690; 84703; 85025; 96374; 99282; J3490

== ENCOUNTER 2024-01-28 12:47 | Emergency (ER) | payer MEDICARE, SELFPAY ==
[2024-01-28 12:49] VITALS: BP 128/96; PULSE 103; RESP 18; TEMP 36.3; O2SAT 97; BMI 30.9
[2024-01-28 13:36] LABS: Absolute Lymphocyte Count 2.64 X10^3/uL (0.83-4.51); Absolute Neutrophil Count 5.8 X10^3/uL (2.0-7.7); Basophil# 0.05 X10^3/uL; Basophil% 0.5 % (0-1); Eosinophil# 0.21 X10^3/uL; Eosinophils% 2.3 % (0-5); Hematocrit 43.8 % (37-47); Hemoglobin 14.5 g/dL (12.0-15.0); Lymphocyte # 2.64 X10^3/ul (0.83-4.51); Lymphocyte % 28.7 % (19-41); Mean Corp Hgb Conc 33.1 g/dL (32-36); Mean Corpuscular Hgb 28.5 pg (27.0-32.0); Mean Corpuscular Volume 86.1 fL (81-99); Mean Platelet Vol. 10.5 fl (6.2-12.0); Monocyte# 0.52 X10^3/uL; Monocyte% 5.6 % (0-10); NRBC Flagged by Analyzer 0 % (0-5); Neutrophil # 5.77 X10^3/uL (2.7-7.7); Neutrophil % 62.7 % (47-70); Platelet Count 196 K/mm3 (150-450); RBC Distribution Width CV 12.2 % (11.6-14.6); RBC Distribution Width SD 38.6 fl (35.1-43.9); Red Blood Count 5.09 M/mm3 (4.2-5.4); White Blood Count 9.2 K/mm3 (4.4-11.0)
[2024-01-28 13:46] LABS: Internal QC Validated? YES +Cl - CLEAR BKGD; Pregnancy, Serum, hCG Quali. NEGATIVE Negative
--- NOTE | 2024-01-28 13:50 | EDS_ITS ---
HPI <TYLER Nielsen - Last Filed: 01/28/24 15:19> History of Present Illness Chief Complaint: Nausea/Vomiting/Diarrhea Narrative Narrative: Patient is a 43-year-old female with history of developmental delay, bipolar, anxiety depression hypertension who presents to the emergency department with 1 month of intermittent blood from her rectum. Patient states sometimes it is in the toilet sometimes on the toilet paper. She states that every now and then s he has abdominal cramping. Patient dates she recently took a Depo shot had some vaginal bleeding however that has ceased. She denies any fever chills, she denies any blood in her stool, has had 2 bouts of nausea and vomiting. Patient did have a GI appointment 2 weeks ago however slept in and did not make it. PFS <TYLER Nielsen - Last Filed: 01/28/24 15:19> [facility] Medical History Anemia Anxiety Arthritis ASTHMA Bipolar 1 disorder Chest pain Chronic bronchitis Chronic cough Depression Difficulty balancing Emotional problems Fatigue Gallstones GERD (gastroesophageal reflux disease) History of behavioral and mental health problems Hypertension Nausea and vomiting NECK/BACK PAIN OCD (obsessive compulsive disorder) PTSD (post-traumatic stress disorder) Right leg pain Sciatica Scoliosis Seizures Severe headache Shoulder pain Stomach ulcer Home Medications ?Medication ?Instructions ?Recorded ?Last Taken ?Type multivitamin 1 ea PO DAILY 09/03/18 Unknown History cariprazine 1.5 mg capsule 1.5 mg PO DAILY 04/05/21 Unknown History (Vraylar) medroxyprogesterone 150 mg/mL 150 mg IM Q12W 07/14/22 Unknown History intramuscular suspension (Depo-Provera) lamotrigine 25 mg tablet (Lamictal) 50 mg PO DAILY 02/02/23 Unknown History albuterol sulfate 90 mcg/actuation 1 inh inhalation ONCE PRN 10/26/23 Unknown Rx aerosol inhaler shortness of breath or wheezing #6.7 grams benztropine 1 mg tablet 1 mg PO DAILY 10/26/23 Unknown History neilmed nasamist See Rx Instructions .Route 11/01/23 Unknown Rx .COMPLEX #1 BOTTLE propranolol 10 mg tablet 10 mg PO DAILY #90 tabs 11/02/23 Unknown Rx medroxyprogesterone 104 mg/0.65 mL 104 mg (0.65 mL) subcut [id number] 12/13/23 Unknown Rx subcutaneous syringe (Depo-SubQ #0.65 mL provera 104) Lactobacillus rhamnosus GG 10 1 cap PO DAILY #90 caps 12/26/23 Unknown Rx billion cell capsule (Culturelle) ascorbic acid (vitamin C) 500 mg 500 mg PO DAILY #90 tabs 12/26/23 Unknown Rx tablet (Vitamin C) cholecalciferol (vitamin D3) 50 50 mcg PO DAILY #90 tabs 12/26/23 Unknown Rx mcg (2,000 unit) tablet (Vitamin D3) loratadine 10 mg capsule 10 mg PO DAILY #90 caps 12/26/23 Unknown Rx pantoprazole 40 mg tablet,delayed 40 mg PO DAILY #90 tabs 12/26/23 Unknown Rx release ondansetron 4 mg disintegrating 4 mg PO Q8H PRN PRN Nausea #10 tabs 01/28/24 Unknown Rx tablet Allergy/AdvReac Type Severity Reaction Status Date / Time influenza virus vaccine, Allergy Other Verified 11/29/23 12:40 specific (influenza virus vacc,specific) iodine Allergy Rash Verified 11/29/23 12:40 Latex, Natural Rubber Allergy Rash Verified 11/29/23 12:40 inaja Allergy Anaphylaxis Verified 11/29/23 12:40 meloxicam Allergy Other Verified 11/29/23 12:40 metronidazole (From Flagyl) Allergy Hives Verified 11/29/23 12:40 montelukast (From Singulair) Allergy Rash Verified 11/29/23 12:40 morphine Allergy Other Verified 11/29/23 12:40 Penicillins (PCN) Allergy Unknown Verified 11/29/23 12:40 Seasonal Allergies: Uncoded Allergy NEEDS Verified 11/29/23 12:40 FOLLOW-UP clindamycin AdvReac Nausea/Vom/ Verified 11/29/23 12:40 Diarrhea doxycycline AdvReac Nausea Verified 11/29/23 12:40 Hand Operating System Designer AdvReac Hives Verified 11/29/23 12:40 prednisone AdvReac Other Verified 11/29/23 12:40 soap AdvReac Hives Verified 11/29/23 12:40 Family History Brother Hypertension Bipolar affect, depressed Alcoholism Mother Alcoholism Blood clot in vein Hypertension CVA (cerebral vascular accident) Seizures Father Cancer Hypertension Surgical History History of colonoscopy History of endoscopy No pertinent past surgical history Social History household members: none Smoking Status: Current every day smoker tobacco type: cigarettes Tobacco: How many years used: 24 second hand exposure: Yes alcohol intake: former year quit: 2020 substance use type: former substance user Date of last use: 2003; ACID, COCAINE, POT what type of physical activity do you participate in: walking frequency: daily seatbelt use: always do you feel safe at home: Yes ROS <TYLER Nielsen - Last Filed: 01/28/24 15:19> ROS ED ROS Narrative Constitutional: Negative for fever, chills, weight loss, weakness Eyes: Negative for vision loss, vision change, double vision ENT: Negative for any sore throat, ear pain, congestion Cardiovascular: Negative for any chest pain, tightness, palpitations Respiratory: Negative for any cough, sputum production, hemoptysis, dyspnea, dyspnea on exertion, orthopnea Gastrointestinal: Negative for any constipation, blood in vomit. Positive for intermittent abdominal pain, nausea, vomiting, diarrhea, positive for blood in stool : Negative for any urinary frequency, dysuria, retention, blood in urine Muscle skeletal: Negative for any neck pain, back pain Neurological: Negative for any headache, syncope, dizziness Skin: Negative for any rashes, itching, abrasions, lacerations Psychiatric: Negative for any depression, anxiety, stress, suicidal ideation, homicidal ideation Hematologic: Negative for any excessive bruising, easy bleeding EXAM <TYLER Nielsen - Last Filed: 01/28/24 15:19> Physical Exam Narrative Exam Narrative: Vital signs reviewed. HEET: Head normocephalic atraumatic, TMs clear bilaterally. Posterior pharynx is clear, moist mucous membranes. Nares clear bilaterally. Neck: Supple with no lymphadenopathy or tenderness. No signs of meningismus. Cardiac: Regular rate and rhythm no murmurs gallops or rubs, equal peripheral pulses bilaterally. Respiratory: Lungs clear to auscultation bilaterally. No chest tenderness. Abdomen: Soft, nontender, nondistended. No abdominal bruit or pulsatile masses. No hepatosplenomegaly Extremities: No peripheral edema, no signs of gross trauma or deformity. Active full range of motion of all extremities. Neuro: Cranial nerves II through XII intact, no focal neurological deficits. Skin: Clean dry and intact with no rash, purpura, petechiae, vesicles or pustules. Backs/flank: No CVA tenderness, no midline spinal tenderness, no deformity. Psych: Normal mood and affect. No SI, HI or acute psychosis. Rectal: Rectal exam was completed with female nurse gas station service attendant Sary. There is no acute or chronic hemorrhoids, there is no bright red bleeding, stool was minimal in the rectal vault, there was light brown stool. Const Vital Signs: 01/28/24 12:49 Temperature 97.3 F L Temperature Source Temporal Pulse Rate 103 H Respiratory Rate 18 Blood Pressure 128/96 H Blood Pressure Mean 106 Pulse Ox 97 Oxygen Delivery Method Room Air Positive well nourished and well developed General Appearance ED: well developed <Dr. Tristan Bledsoe MD - Last Filed: 01/28/24 14:51> Physical Exam Const Vital Signs: 01/28/24 12:49 Temperature 97.3 F L Temperature Source Temporal Pulse Rate 103 H Respiratory Rate 18 Blood Pressure 128/96 H Blood Pressure Mean 106 Pulse Ox 97 Oxygen Delivery Method Room Air MDM <TYLER Nielsen - Last Filed: 01/28/24 15:19> MDM Lab Data Labs: Laboratory Results - last 24 hr 01/28/24 01/28/24 13:20 13:46 WBC 9.2 RBC 5.09 Hgb 14.5 Hct 43.8 MCV 86.1 MCH 28.5 MCHC 33.1 RDW Std Deviation 38.6 RDW Coeff of Lev 12.2 Plt Count 196 MPV 10.5 Immature Gran % (Auto) 0.200 Neut % (Auto) 62.7 Lymph % (Auto) 28.7 Gregory % (Auto) 5.6 Eos % (Auto) 2.3 Baso % (Auto) 0.5 Absolute Neuts (auto) 5.8 Absolute Lymphs (auto) 2.64 Nucleated RBC % 0 Sodium 138 Potassium 3.8 Chloride 110 H Carbon Dioxide 21.0 Anion Gap 7 BUN 16 Creatinine 0.80 Estim Creat Clear Calc 102.08 Est GFR (MDRD) Af Amer 100 Est GFR (MDRD) Non-Af 83 BUN/Creatinine Ratio 20.1 H Glucose 124 H Calcium 9.2 Total Bilirubin 0.40 AST 10 L ALT 23 Alkaline Phosphatase 60 Total Protein 7.1 Albumin 3.8 Globulin 3.3 Albumin/Globulin Ratio 1.2 Lipase 30 Serum , Qual NEGATIVE Urine Color Yellow Urine Clarity Clear Urine pH 6.5 Ur Specific Andrew 1.010 Urine Protein Negative Urine Glucose (UA) Normal Urine Ketones Negative Urine Occult Blood Negative Urine Nitrite Negative Urine Bilirubin Negative Urine Urobilinogen Normal Ur Leukocyte Esterase 25 H Treatment and Re-Evaluation :: Differential diagnosis includes however is not limited to: Diverticulitis, acute GI bleeding, cirrhosis, H. pylori, hemorrhoid, constipation Patient appears to be in no obvious respiratory distress vital signs are stable, patient presents to the emergency department with intermittent abdominal discomfort, concern for rectal bleeding over the last month. Patient's physical examination was unremarkable, no abdominal tenderness, active bowel sounds in all quadrants. Rectal exam was unremarkable, showing no dark stool, no bright red blood, no hemorrhoids. Patient's CBC was unremarkable, chemistries were unremarkable, patient's serum was negative. Patient stool occult was positive however this is microscopic prior to not see any lisa red bleeding. Patient's urinalysis is unremarkable. Patient states she does have some vaginal itching, will be treated with Diflucan. She did ask for a pelvic exam. However per nursing staff, patient has history of asking for pelvic exams when they are not needed. At this time, will be declined. Patient will take the Diflucan and follow-up outpatient. PatientCBC was unremarkable, hemoglobin is 14.5 which is stable, chemistries were unremarkable, patient is not . Lipase is negative. Urinalysis was negative for any infection. Patient at this time will be stable for discharge, all questions answered, she was given Zofran for home. She will follow-up with GI specialist <Dr. Tristan Bledsoe MD - Last Filed: 01/28/24 14:51> [facility] Narrative Medical decision making narrative: I have personally performed a face to face assessment of the patient and have reviewed the VIC Note. I performed a substantive portion of the visit including all aspects of the following. My alvarez findings include: History is 43-year-old female with abdominal complaints for months. Denies any fever or weight loss. She has never had any abdominal surgeries. Exam is [well-appearing 43-year-old female. Vital signs stable afebrile. HEENT exam unremarkable. Neck nontender. Lungs are clear. Heart regular rhythm no murmur. Abdomen soft, nondistended, normal bowel sounds without peritoneal signs. Patient moving all 4 extremities. Calves are nontender without edema or cords. Neurologically she is awake and alert with no focal motor deficits.] Medical Decision Making [workup is negative. Patient is also complaining of vaginal itching. We offered her Diflucan. She is requesting a pelvic exam. Per nursing the patient request pelvic exams frequently. She will be discharged home.] Other additions or changes: [None] History & Record Review Discussion w/independent historian: Patient Additional record(s) reviewed:: Prior inpatient record, Prior outpatient record, Prior ED visit and Prior labs Lab Data Attestation: I reviewed the patient's lab results. Lab results narrative: CBC normal. White count 9. H&H 14 and 43. Platelets 196. Electrolytes unremarkable. Gap of 7. Normal BUN and creatinine. Liver enzymes normal. Lipase 30. test negative. Hemoccult stool positive. Labs: Laboratory Results - last 24 hr 01/28/24 01/28/24 13:20 13:46 WBC 9.2 RBC 5.09 Hgb 14.5 Hct 43.8 MCV 86.1 MCH 28.5 MCHC 33.1 RDW Std Deviation 38.6 RDW Coeff of Lev 12.2 Plt Count 196 MPV 10.5 Immature Gran % (Auto) 0.200 Neut % (Auto) 62.7 Lymph % (Auto) 28.7 Gregory % (Auto) 5.6 Eos % (Auto) 2.3 Baso % (Auto) 0.5 Absolute Neuts (auto) 5.8 Absolute Lymphs (auto) 2.64 Nucleated RBC % 0 Sodium 138 Potassium 3.8 Chloride 110 H Carbon Dioxide 21.0 Anion Gap 7 BUN 16 Creatinine 0.80 Estim Creat Clear Calc 102.08 Est GFR (MDRD) Af Amer 100 Est GFR (MDRD) Non-Af 83 BUN/Creatinine Ratio 20.1 H Glucose 124 H Calcium 9.2 Total Bilirubin 0.40 AST 10 L ALT 23 Alkaline Phosphatase 60 Total Protein 7.1 Albumin 3.8 Globulin 3.3 Albumin/Globulin Ratio 1.2 Lipase 30 Serum , Qual NEGATIVE Urine Color Yellow Urine Clarity Clear Urine pH 6.5 Ur Specific Andrew 1.010 Urine Protein Negative Urine Glucose (UA) Normal Urine Ketones Negative Urine Occult Blood Negative Urine Nitrite Negative Urine Bilirubin Negative Urine Urobilinogen Normal Ur Leukocyte Esterase 25 H Discharge Plan Triage Chief Complaint: Nausea/Vomiting/Diarrhea Other Complaint: GI Bleed ED Midlevel Provider: Duncan Alvarez ED Provider: Tristan Bledsoe Dx/Rx/DC Orders Clinical Impression: Blood in stool, Infection due to yeast, Nausea Prescriptions: New ondansetron 4 mg tablet,disintegrating 4 mg PO Q8H PRN PRN (Reason: Nausea) Qty: 10 0RF No Action medroxyprogesterone [Depo-Provera] 150 mg/mL suspension 150 mg IM Q12W albuterol sulfate 90 mcg/actuation HFA aerosol inhaler 1 inh inhalation ONCE PRN (Reason: shortness of breath or wheezing) Qty: 6.7 2RF propranolol 10 mg tablet 10 mg PO DAILY Qty: 90 1RF cholecalciferol (vitamin D3) [Vitamin D3] 50 mcg (2,000 unit) tablet 50 mcg PO DAILY Qty: 90 0RF Culturelle 10 billion cell capsule 1 cap PO DAILY Qty: 90 0RF ascorbic acid (vitamin C) [Vitamin C] 500 mg tablet 500 mg PO DAILY Qty: 90 0RF pantoprazole 40 mg tablet,delayed release (DR/EC) 40 mg PO DAILY Qty: 90 0RF loratadine 10 mg capsule 10 mg PO DAILY Qty: 90 0RF multivitamin 1 EACH tablet 1 ea PO DAILY Vraylar 1.5 mg Capsule 1.5 mg PO DAILY lamotrigine [Lamictal] 25 mg Tablet 50 mg PO DAILY benztropine 1 mg tablet 1 mg PO DAILY neilmed nasamist See Rx Instructions .ROUTE .COMPLEX Qty: 1 8RF Rx Instructions: spray three times a day; Depo-SubQ provera 104 104 mg/0.65 mL syringe 104 mg subcut [id number] Qty: 0.65 3RF Primary Care Provider: Paul Ferrara Referrals: Paul Ferrara, [Primary Care Provider] - Print Language: Kazakh
[2024-01-28 13:51] LABS: Bacteria 0 SEEN /hpf (None Seen); Mucous, Urine 0 SEEN /hpf (<or=2+); Red Blood Cells-Urine 0 SEEN /hpf (0-5); Squamous Epithelial Cells - UA 0 SEEN /hpf (5-10); White Blood Cells 0 SEEN /hpf (0-5)
[2024-01-28 13:56] LABS: ALB/GLOB Ratio 1.2 RATIO (0.9-2.4); AST(SGOT) 10 U/L (15-37); Alanine Aminotransfer ALT/SGPT 23 U/L (13-56); Albumin, Serum 3.8 g/dL (3.2-5.0); Alkaline Phosphatase 60 U/L (45-117); Anion Gap 7 (5-15); BUN 16 mg/dL (7-18); BUN/Creat Ratio 20.1 RATIO (10-20); Calcium,Total 9.2 mg/dL (8.5-10.1); Chloride 110 mmol/L (98-107); EST Glomerular Filtration Rate 83 mL/min (>60); Est Glom Filt Rate - Afr Amer 100 mL/min (>60); Estimated Creatinine Clearance 102.08 ml/min; Globulin 3.3 g/dL (2.2-4.2); Glucose 124 mg/dL (74-106); Lipase 30 U/L (13-75); Potassium 3.8 mmol/L (3.5-5.1); Protein, Total 7.1 g/dL (6.4-8.2); Sodium Level 138 mmol/L (136-145)
[2024-01-28 14:00] LABS: Color, Urine Yellow (Yellow); Glucose, Dipstick Normal (Normal); Ketone-Dipstick Negative (Negative); Leukocyte Esterase-Dipstick 25 /ul (Negative); Nitrite-Dipstick Negative (Negative); Occult Blood-Urine Negative /ul (Negative); Protein-Dipstick Negative (Negative); Urine Bilirubin Dipstick Negative (Negative); Urine Clarity Clear (Clear); Urine Urobilinogen Normal (Normal); Urine pH 6.5 (5.0 - 8.0)
--- NOTE | 2024-01-28 14:32 | ED.RN ---
this rn responded to patient's call light. pt with 2 questions/ request. 1. pt was curious if urine sample was sent down. rn confirmed that it was and it is currently in lab but not resulted. Pt also informed RN that when the dr who was checking me for my rectal exam, I forgot to tell him that I have vaginal itching and burning. This rn questioned how long has this been going on for? and patient responded i have no idea, i just know it is itcy. Provider notified.
[2024-01-28 15:00] VITALS: BP 129/79; PULSE 81; RESP 18; O2SAT 99
[2024-01-28 15:43] VITALS: BP 130/78; PULSE 75; RESP 18; TEMP 36.6; O2SAT 99
== END 2024-01-28 16:05 | disposition home or self-care (01) ==
PROVIDERS: Nurse Practitioner; Emergency Provider Emergency Medicine; PCP Family Medicine; Visit Provider Emergency Medicine
DX: K92.1 Melena (principal); R11.2 Nausea with vomiting, unspecified; L29.9 Pruritus, unspecified; R10.9 Unspecified abdominal pain; F17.210 Nicotine dependence, cigarettes, uncomplicated; R62.50 Unspecified lack of expected normal physiological development in childhood; R19.7 Diarrhea, unspecified; B37.9 Candidiasis, unspecified
CPT/HCPCS: 80053; 81001; 82274; 83690; 84703; 85025; 99283

== ENCOUNTER → 2024-02-08 | Outpatient (CLI) | payer MEDICARE, SELFPAY ==
[2024-02-08 17:33] LABS: T4 Free Direct 1.07 ng/dL (0.76-1.46); Thyroid Stim Hormone (TSH) 4.34 uIU/mL (0.358-3.74)
[2024-02-15 16:11] LABS: HPV APTIMA, High Risk Negative (Negative)
== END | disposition home or self-care (01) ==
LOC: BIMLAB 15:48
PROVIDERS: PCP Family Medicine; Referring Provider Family Medicine; Visit Provider Family Medicine
DX: Z01.419 Encounter for gynecological examination (general) (routine) without abnormal findings (principal); E05.90 Thyrotoxicosis, unspecified without thyrotoxic crisis or storm; F32.A Depression, unspecified
CPT/HCPCS: 36415; 84439; 84443; 87624; 88142

== ENCOUNTER 2024-02-19 14:18 | Emergency (ER) | payer MEDICARE, SELFPAY ==
[2024-02-19 14:21] VITALS: BP 159/86; PULSE 91; RESP 17; TEMP 36.4; O2SAT 97; BMI 31.0
--- NOTE | 2024-02-19 14:40 | EX.ED.VIS.PS ---
HPI <GERARDO Amezcua - Last Filed: 02/19/24 15:49> HPI - Psych History of Present Illness Chief Complaint: Mental Health Narrative Narrative: 43-year-old female states she called the paramedics because she has been extremely anxious. She lives alone and has been stressed because her Social Security payments are being decreased. She states she is only sleeping 5 hours a night. She also called her landlord this morning asking for help to instill her air conditioning unit and states she was short with her and this made her upset. She states EMS who told her she was having a panic attack. She takes Lamictal for a mood disorder. She states she is took it all week but missed this morning's dose. She talks to a 180 counselor on the telephone every other Tuesday named Dipika James and states she has a rehabilitation case coordinator but cannot speak to either of them soon about her anxiety issues. She denies feeling suicidal or homicidal. [facility] <GERARDO Amezcua - Last Filed: 02/19/24 15:49> [facility] Medical History (Updated 02/19/24 @ 15:05 by GERARDO Amezcua) HSV-2 (herpes simplex virus 2) infection History of behavioral and mental health problems Sciatica Scoliosis Seizures Hypertension Gallstones Emotional problems Chronic bronchitis PTSD (post-traumatic stress disorder) OCD (obsessive compulsive disorder) Right leg pain Nausea and vomiting GERD (gastroesophageal reflux disease) Bipolar 1 disorder Anxiety Depression NECK/BACK PAIN Difficulty balancing ASTHMA Chest pain Severe headache Fatigue Anemia Stomach ulcer Shoulder pain Arthritis Chronic cough Home Medications ?Medication ?Instructions ?Recorded ?Last Taken ?Type multivitamin 1 ea PO DAILY 09/03/18 Unknown History cariprazine 1.5 mg capsule 1.5 mg PO DAILY 04/05/21 Unknown History (Vraylar) medroxyprogesterone 150 mg/mL 150 mg IM Q12W 07/14/22 Unknown History intramuscular suspension (Depo-Provera) lamotrigine 25 mg tablet (Lamictal) 50 mg PO DAILY 02/02/23 Unknown History benztropine 1 mg tablet 1 mg PO DAILY 10/26/23 Unknown History propranolol 10 mg tablet 10 mg PO DAILY #90 tabs 11/02/23 Unknown Rx medroxyprogesterone 104 mg/0.65 mL 104 mg (0.65 mL) subcut [id number] 12/13/23 Unknown Rx subcutaneous syringe (Depo-SubQ #0.65 mL provera 104) ascorbic acid (vitamin C) 500 mg 500 mg PO DAILY #90 tabs 12/26/23 Unknown Rx tablet (Vitamin C) cholecalciferol (vitamin D3) 50 50 mcg PO DAILY #90 tabs 12/26/23 Unknown Rx mcg (2,000 unit) tablet (Vitamin D3) pantoprazole 40 mg tablet,delayed 40 mg PO DAILY #90 tabs 12/26/23 Unknown Rx release Allergy/AdvReac Type Severity Reaction Status Date / Time influenza virus vaccine, Allergy Other Verified 02/19/24 14:24 specific (influenza virus vacc,specific) iodine Allergy Rash Verified 02/19/24 14:24 Latex, Natural Rubber Allergy Rash Verified 02/19/24 14:24 [place] Allergy Anaphylaxis Verified 02/19/24 14:24 meloxicam Allergy Other Verified 02/19/24 14:24 metronidazole (From Flagyl) Allergy Hives Verified 02/19/24 14:24 montelukast (From Singulair) Allergy Rash Verified 02/19/24 14:24 morphine Allergy Other Verified 02/19/24 14:24 Penicillins (PCN) Allergy Unknown Verified 02/19/24 14:24 Seasonal Allergies: Uncoded Allergy NEEDS Verified 02/19/24 14:24 FOLLOW-UP clindamycin AdvReac Nausea/Vom/ Verified 02/19/24 14:24 Diarrhea doxycycline AdvReac Nausea Verified 02/19/24 14:24 Hand Spool Sorter AdvReac Hives Verified 02/19/24 14:24 prednisone AdvReac Other Verified 02/19/24 14:24 soap AdvReac Hives Verified 02/19/24 14:24 Family History Brother Hypertension Bipolar affect, depressed Alcoholism Mother Alcoholism Blood clot in vein Hypertension CVA (cerebral vascular accident) Seizures Father Cancer Hypertension Surgical History History of endoscopy History of colonoscopy No pertinent past surgical history Social History household members: none Smoking Status: Current every day smoker tobacco type: cigarettes Tobacco: How many years used: 24 second hand exposure: Yes alcohol intake: former year quit: 2020 substance use type: former substance user Date of last use: 2003; ACID, COCAINE, POT what type of physical activity do you participate in: walking frequency: daily seatbelt use: always do you feel safe at home: Yes ROS <GERARDO Amezcua - Last Filed: 02/19/24 15:49> ROS ED ROS Narrative Constitutional: Negative for fever, chills. CVS: Negative for chest pain. Respiratory: Negative for shortness of breath. EXAM <GERARDO Amezcua - Last Filed: 02/19/24 15:49> Physical Exam Narrative Exam Narrative: CONST: Patient sitting in no acute distress. EYES: Normal inspection. NECK: Normal inspection. RESP: No respiratory distress, CTAB. CVS: Regular rate and rhythm, no murmur, no gallop. SKIN: Color normal, no rash, warm, dry, intact. EXTREMITIES: Normal appearance, no pedal edema. NEURO: Alert and answering questions appropriately. PSYCH: Normal affect. Const Vital Signs: 02/19/24 14:21 Temperature 97.6 F L Temperature Source Temporal Pulse Rate 91 Respiratory Rate 17 Blood Pressure 159/86 H Blood Pressure Mean 110 Pulse Ox 97 Oxygen Delivery Method Room Air <Dr. Tristan Bledsoe MD - Last Filed: 02/19/24 15:23> Physical Exam Const Vital Signs: 02/19/24 14:21 Temperature 97.6 F L Temperature Source Temporal Pulse Rate 91 Respiratory Rate 17 Blood Pressure 159/86 H Blood Pressure Mean 110 Pulse Ox 97 Oxygen Delivery Method Room Air MDM <GERARDO Amezcua - Last Filed: 02/19/24 15:49> MDM MDM Narrative Medical decision making narrative: Patient with history of bipolar and anxiety presents with increased anxiety due to recent financial stressors. She is not suicidal or homicidal. She is calm during my exam and answering questions appropriately. The nurse contacted the crisis center and they states she is spoken with the multiple times today on the phone and they advise she continue her home medications. Crisis did not think a emergent ED visit was indicated. Patient did not want any anxiolytics here, states she will take her home meds which she has with her, and was discharged in stable condition. I have personally performed a face to face assessment of the patient and have reviewed the VIC Note. I performed a substantive portion of the visit including all aspects of the following. My alvarez findings include: History is 43-year-old female history of anxiety says she is going through a lot of stress currently at home governments trying to take money out of her disability checks. She denies being suicidal or homicidal. She is already spoken to crisis today and went to speak to them again. She does not feel she needs to be admitted to the hospital. Exam is [well-appearing 43-year-old female. Vital signs are stable and afebrile. She is in no distress. H EENT exam unremarkable. No trauma. Neck nontender no trauma. Lungs clear to auscultation. Heart regular rhythm no murmur. Chest wall and ribs nontender. Abdomen soft nontender. Moving all 4 extremities. Normal range of motion. Normal strength. No signs of trauma. Back nontender. Neurologically she is anxious but awake and alert with no focal motor deficits. Answering questions following commands.] Medical Decision Making [43-year-old with anxiety. Does not appear to be homicidal or suicidal. Spoke to counseling center they are comfortable with her being discharged home as her week. She is already on anxiety meds. Has an established relationship with the counseling center.] Other additions or changes: [None] <Dr. Tristan Bledsoe MD - Last Filed: 02/19/24 15:23> [facility] Narrative Medical decision making narrative: I have personally performed a face to face assessment of the patient and have reviewed the VIC Note. I performed a substantive portion of the visit including all aspects of the following. My alvarez findings include: History is 43-year-old female history of anxiety says she is going through a lot of stress currently at home governments trying to take money out of her disability checks. She denies being suicidal or homicidal. She is already spoken to crisis today and went to speak to them again. She does not feel she needs to be admitted to the hospital. Exam is [well-appearing 43-year-old female. Vital signs are stable and afebrile. She is in no distress. H EENT exam unremarkable. No trauma. Neck nontender no trauma. Lungs clear to auscultation. Heart regular rhythm no murmur. Chest wall and ribs nontender. Abdomen soft nontender. Moving all 4 extremities. Normal range of motion. Normal strength. No signs of trauma. Back nontender. Neurologically she is anxious but awake and alert with no focal motor deficits. Answering questions following commands.] Medical Decision Making [43-year-old with anxiety. Does not appear to be homicidal or suicidal. Spoke to counseling center they are comfortable with her being discharged home as her week. She is already on anxiety meds. Has an established relationship with the counseling center.] Other additions or changes: [None] History & Record Review Discussion w/independent historian: Patient Additional record(s) reviewed:: Prior inpatient record, Prior outpatient record, Prior ED visit and Prior labs Discharge Plan Triage Chief Complaint: Mental Health ED Midlevel Provider: Kasandra Carlin ED Provider: Tristan Bledsoe Dx/Rx/DC Orders Clinical Impression: Anxiety Instructions: Anxiety Disorders Tx Prescriptions: No Action medroxyprogesterone [Depo-Provera] 150 mg/mL suspension 150 mg IM Q12W propranolol 10 mg tablet 10 mg PO DAILY Qty: 90 1RF cholecalciferol (vitamin D3) [Vitamin D3] 50 mcg (2,000 unit) tablet 50 mcg PO DAILY Qty: 90 0RF ascorbic acid (vitamin C) [Vitamin C] 500 mg tablet 500 mg PO DAILY Qty: 90 0RF pantoprazole 40 mg tablet,delayed release (DR/EC) 40 mg PO DAILY Qty: 90 0RF multivitamin 1 EACH tablet 1 ea PO DAILY Vraylar 1.5 mg Capsule 1.5 mg PO DAILY lamotrigine [Lamictal] 25 mg Tablet 50 mg PO DAILY benztropine 1 mg tablet 1 mg PO DAILY Depo-SubQ provera 104 104 mg/0.65 mL syringe 104 mg subcut [id number] Qty: 0.65 3RF Primary Care Provider: Paul Ferrara Referrals: Paul Ferrara, [Primary Care Provider] - Activity Restrictions/Additional Instructions: Follow-up with your counselor as scheduled and I strongly advise you take your daily medications. Print Language: Zambian Disposition Disposition: Home, Self Care
== END 2024-02-19 15:51 | disposition home or self-care (01) ==
PROVIDERS: Emergency Provider Emergency Medicine; PCP Family Medicine; Visit Provider Emergency Medicine
DX: F41.9 Anxiety disorder, unspecified (principal); F17.210 Nicotine dependence, cigarettes, uncomplicated; F39 Unspecified mood [affective] disorder; I10 Essential (primary) hypertension; F42.9 Obsessive-compulsive disorder, unspecified; K21.9 Gastro-esophageal reflux disease without esophagitis
CPT/HCPCS: 99282

== ENCOUNTER → 2024-04-04 | Outpatient (CLI) | payer MEDICARE, SELFPAY | END | disposition home or self-care (01) | LOC: LABSPEC 09:40 | PROVIDERS: PCP Family Medicine; Referring Provider Physician Assistant; Visit Provider Physician Assistant | DX: R35.0 Frequency of micturition (principal) | CPT/HCPCS: 87086; 87088 ==

== ENCOUNTER → 2024-04-12 | Outpatient (CLI) | payer MEDICARE, SELFPAY ==
[2024-04-12 15:40] LABS: Anion Gap 8 (5-15); BUN 17 mg/dL (7-18); BUN/Creat Ratio 18.5 RATIO (10-20); Calcium,Total 9.1 mg/dL (8.5-10.1); Chloride 107 mmol/L (98-107); Creatinine, Serum 0.92 mg/dL (0.55-1.02); EST Glomerular Filtration Rate 70 mL/min (>60); Est Glom Filt Rate - Afr Amer 85 mL/min (>60); Glucose 94 mg/dL (74-106); Potassium 3.9 mmol/L (3.5-5.1); Sodium Level 139 mmol/L (136-145)
[2024-04-12 16:18] LABS: Hemoglobin A1c 5.2 % (3.8-5.6)
== END | disposition home or self-care (01) ==
LOC: BIMLAB 13:25
PROVIDERS: PCP Family Medicine; Referring Provider Physician Assistant; Visit Provider Physician Assistant
DX: R35.0 Frequency of micturition (principal); R73.09 Other abnormal glucose
CPT/HCPCS: 36415; 80048; 83036

== ENCOUNTER → 2024-07-11 | Outpatient (CLI) | payer MEDICARE, SELFPAY | END | disposition home or self-care (01) | LOC: LABSPEC 11:45 | PROVIDERS: PCP Family Medicine; Referring Provider Family Medicine; Visit Provider Family Medicine | DX: B37.31 Acute candidiasis of vulva and vagina (principal) | CPT/HCPCS: 87070; 87205 ==

== ENCOUNTER → 2024-09-18 | Outpatient (CLI) | payer MEDICARE, MEDICAID, SELFPAY ==
[2024-09-18 12:13] LABS: Hematocrit 45.3 % (37-47); Hemoglobin 14.6 g/dL (12.0-15.0); Mean Corp Hgb Conc 32.2 g/dL (32-36); Mean Corpuscular Hgb 27.9 pg (27.0-32.0); Mean Corpuscular Volume 86.6 fL (81-99); Mean Platelet Vol. 10.8 fl (6.2-12.0); Platelet Count 236 K/mm3 (150-450); RBC Distribution Width CV 12.6 % (11.6-14.6); RBC Distribution Width SD 39.6 fl (35.1-43.9); Red Blood Count 5.23 M/mm3 (4.2-5.4); White Blood Count 9.3 K/mm3 (4.4-11.0)
[2024-09-18 12:55] LABS: Vitamin B12 662 pg/mL (211-911); Vitamin D,25 Hydroxy 41.9 ng/mL
[2024-09-18 13:04] LABS: ALB/GLOB Ratio 1.1 RATIO (0.9-2.4); AST(SGOT) 12 U/L (15-37); Alanine Aminotransfer ALT/SGPT 25 U/L (13-56); Albumin, Serum 3.7 g/dL (3.2-5.0); Alkaline Phosphatase 66 U/L (45-117); Anion Gap 5 (5-15); BUN 14 mg/dL (7-18); Chloride 107 mmol/L (98-107); Creatinine, Serum 0.82 mg/dL (0.55-1.02); EST Glomerular Filtration Rate 80 mL/min (>60); Est Glom Filt Rate - Afr Amer 96 mL/min (>60); Free T3 2.6 pg/mL (2.18-3.98); Globulin 3.4 g/dL (2.2-4.2); Glucose 126 mg/dL (74-106); Potassium 3.7 mmol/L (3.5-5.1); Protein, Total 7.1 g/dL (6.4-8.2); Sodium Level 136 mmol/L (136-145); T4 Free Direct 0.98 ng/dL (0.76-1.46)
== END | disposition home or self-care (01) ==
LOC: BIMLAB 10:43
PROVIDERS: PCP Family Medicine; Referring Provider Physician Assistant; Visit Provider Physician Assistant
DX: R53.83 Other fatigue (principal); E55.9 Vitamin D deficiency, unspecified
CPT/HCPCS: 36415; 80053; 82306; 82607; 84439; 84443; 84481; 85027

== ENCOUNTER → 2024-11-14 | Outpatient (CLI) | payer MEDICARE, MEDICAID, SELFPAY ==
[2024-11-14 17:57] LABS: Hemoglobin A1c 5.4 % (<=5.6)
== END | disposition home or self-care (01) ==
LOC: BIMLAB 14:05
PROVIDERS: PCP Family Medicine; Referring Provider Family Medicine; Visit Provider Family Medicine
DX: R73.9 Hyperglycemia, unspecified (principal)
CPT/HCPCS: 36415; 83036

== ENCOUNTER → 2025-01-18 | Outpatient (CLI) | payer MEDICARE, MEDICAID, SELFPAY ==
[2025-01-18 12:35] LABS: Erythrocyte Sedimentation Rate 3 mm/hr (0-30)
[2025-01-18 12:40] LABS: Absolute Lymphocyte Count 2.21 X10^3/uL (0.83-4.51); Basophil# 0.05 X10^3/uL; Basophil% 0.7 % (0-1); Eosinophil# 0.23 X10^3/uL; Eosinophils% 3.3 % (0-5); Hematocrit 44.1 % (37-47); Hemoglobin 14.7 g/dL (12.0-15.0); Lymphocyte # 2.21 X10^3/ul (0.83-4.51); Lymphocyte % 31.9 % (19-41); Mean Corp Hgb Conc 33.3 g/dL (32-36); Mean Corpuscular Hgb 29.2 pg (27.0-32.0); Mean Corpuscular Volume 87.7 fL (81-99); Mean Platelet Vol. 11.4 fl (6.2-12.0); Monocyte# 0.43 X10^3/uL; Monocyte% 6.2 % (0-10); NRBC Flagged by Analyzer 0 % (0-5); Neutrophil % 57.8 % (47-70); Platelet Count 189 K/mm3 (150-450); RBC Distribution Width CV 12.7 % (11.6-14.6); RBC Distribution Width SD 40.8 fl (35.1-43.9); Red Blood Count 5.03 M/mm3 (4.2-5.4); White Blood Count 6.9 K/mm3 (4.4-11.0)
[2025-01-18 12:58] LABS: ALB/GLOB Ratio 1.7 RATIO (0.9-2.4); AST(SGOT) 16 U/L (<=31); Alanine Aminotransfer ALT/SGPT 17 U/L (<=34); Albumin, Serum 4.5 g/dL (3.5-5.0); Alkaline Phosphatase 62 U/L (35-104); Anion Gap 12 (5-15); BUN 14 mg/dL (4-19); BUN/Creat Ratio 15.7 RATIO (10-20); Calcium,Total 9.8 mg/dL (7.6-11.0); Chloride 106 mmol/L (98-108); Creatinine, Serum 0.92 mg/dL (0.70-1.20); EST Glomerular Filtration Rate 78 (>60); Globulin 2.7 g/dL (2.2-4.2); Glucose 88 mg/dL (70-99); Potassium 4.2 mmol/L (3.3-5.1); Protein, Total 7.2 g/dL (5.9-8.4); Sodium Level 140 mmol/L (133-145); Total Bilirubin 0.38 mg/dL (0.00-1.30)
[2025-01-18 13:01] LABS: Hemoglobin A1c 5.5 % (<=5.6)
[2025-01-21 13:08] LABS: ANTINUCLEAR ANTIBODIES DIRECT Negative (Negative)
== END | disposition home or self-care (01) ==
LOC: BIMLAB 08:20
PROVIDERS: Internal Medicine; PCP Family Medicine; Referring Provider Physician Assistant; Visit Provider Physician Assistant
DX: R73.09 Other abnormal glucose (principal); R53.83 Other fatigue
CPT/HCPCS: 36415; 80053; 83036; 84443; 85025; 85652; 86038; 86225; 86235

== ENCOUNTER → 2025-01-24 | Outpatient (CLI) | payer MEDICARE, MEDICAID, SELFPAY | END | disposition home or self-care (01) | LOC: LABSPEC 13:22 | PROVIDERS: PCP Family Medicine; Referring Provider Physician Assistant; Visit Provider Physician Assistant | DX: R19.7 Diarrhea, unspecified (principal) | CPT/HCPCS: 82274 ==

== ENCOUNTER 2025-02-19 16:50 | Emergency (ER) | payer MEDICARE, MEDICAID, SELFPAY ==
[2025-02-19 16:51] VITALS: BP 134/101; PULSE 93; RESP 16; TEMP 36.4; O2SAT 98; BMI 31.4
== END 2025-02-19 18:30 | disposition left against medical advice (07) ==
LOC: ED 18:33
PROVIDERS: PCP Family Medicine
DX: R10.9 Unspecified abdominal pain (principal)

== ENCOUNTER → 2025-07-03 | Outpatient (CLI) | payer MEDICARE, MEDICAID, SELFPAY ==
[2025-07-03 16:27] LABS: Mucous, Urine 0 SEEN /hpf (<or=2+)
[2025-07-03 17:21] LABS: Color, Urine Straw (Yellow); Glucose, Dipstick Normal (Normal); Ketone-Dipstick Negative (Negative); Leukocyte Esterase-Dipstick 500 /ul (Negative); Nitrite-Dipstick Positive (Negative); Occult Blood-Urine 50 /ul (Negative); Protein-Dipstick 30 mg/dl (Negative); Specific Gravity, Urine 1.015 (1.002-1.030)
[2025-07-03 17:27] LABS: Urine Bilirubin Dipstick 3 mg/dL (Negative)
[2025-07-03 19:26] LABS: Red Blood Cells-Urine 0-5 SEEN /hpf (0-5); Squamous Epithelial Cells - UA 0-5 SEEN /hpf (5-10)
== END | disposition home or self-care (01) ==
PROVIDERS: PCP Family Medicine; Referring Provider Nurse Practitioner Family; Visit Provider Nurse Practitioner Family
DX: R35.0 Frequency of micturition (principal); Z71.1 Person with feared health complaint in whom no diagnosis is made
CPT/HCPCS: 81001; 87086; 87088

== ENCOUNTER 2025-07-22 10:41 | Emergency (ER) | payer MEDICARE, MEDICAID, SELFPAY ==
[2025-07-22 10:46] VITALS: BP 136/93; PULSE 88; RESP 18; TEMP 36.6; O2SAT 100; BMI 29.4
--- NOTE | 2025-07-22 11:13 | EDS_ITS ---
HPI History of Present Illness Chief Complaint: Edema Detail of Chief Complaint: Facial swelling and dental pain Informant: patient Narrative Narrative: Patient presents to the emergency department with dental pain and facial swelling. She was seen in the ER 10 days ago and started on Keflex. She was supposed to have a root canal done to her right lower tooth however she had cancel it and reschedule it because she could not get a ride there and now she cannot be seen till November. She denies fevers or chills or sweats. She had been doing relatively well until yesterday when she had increased swelling. [facility] Medical History HSV-2 (herpes simplex virus 2) infection History of behavioral and mental health problems Sciatica Scoliosis Seizures Hypertension Gallstones Emotional problems Chronic bronchitis PTSD (post-traumatic stress disorder) OCD (obsessive compulsive disorder) Right leg pain Nausea and vomiting GERD (gastroesophageal reflux disease) Bipolar 1 disorder Anxiety Depression NECK/BACK PAIN Difficulty balancing ASTHMA Chest pain Severe headache Fatigue Anemia Stomach ulcer Shoulder pain Arthritis Chronic cough Home Medications Medication Instructions Recorded Last Taken Type multivitamin 1 ea PO DAILY 09/03/18 Unkno wn History cariprazine 1.5 mg capsule 1.5 mg PO DAILY 04/05/21 Un known History (Vraylar) lamotrigine 25 mg tablet (Lamictal) 50 mg PO DAILY Unknown History benztropine 1 mg tablet 1 mg PO DAILY 10/26/23 Unkno wn History naproxen 500 mg tablet 500 mg PO BID PRN PRN Pain # 60 tabs 06/01/24 Unknown Rx medroxyprogesterone 104 mg/0.65 mL 104 mg (0.65 mL) giron bcut [id number] 12/28/24 Unknown Rx subcutaneous syringe (Depo-SubQ #0.65 mL provera 104) propranolol 10 mg tablet 10 mg PO DAILY #90 tabs 03/29 Unknown Rx loratadine 10 mg capsule 10 mg PO DAILY #90 caps 05/07 05/30 Unknown Rx cholecalciferol (vitamin D3) 50 50 mcg PO DAILY #90 ta bs 07/01/25 Unknown Rx mcg (2,000 unit) tablet (Vitamin D3) pantoprazole 40 mg tablet,delayed 40 mg PO DAILY #90 t abs 07/01/25 Unknown Rx release ciprofloxacin HCl 500 mg tablet 500 mg PO BID #14 tabs 07/05/25 Unknown Rx clindamycin HCl 300 mg capsule 300 mg PO Q6H #40 CAPSU LES 07/22/25 Unknown Rx (Cleocin HCl) hydrocodone-acetaminophen 5-325mg 1 tab PO Q4H PRN PRN Pain 2 days 07/22/25 Unknown Rx 5mg-325mg #10 TABLETS ondansetron 4 mg disintegrating 4 mg PO Q8H PRN PRN Na usea #10 tabs 07/22/25 Unknown Rx tablet Allergy/AdvReac Type Severity Reaction Status Date / Time influenza virus vaccine, Allergy Other Verified 07/22/25 10:43 specific (influenza virus vacc,specific) iodine Allergy Rash Verified 07/22/25 10:43 Latex, Natural Rubber Allergy Rash Verified 07/22/25 10:43 [place] Allergy Anaphylaxis Verified 07/22/25 10:43 meloxicam Allergy Other Verified 07/22/25 10:43 metronidazole (From Flagyl) Allergy Hives Verified 07/22/25 10:43 montelukast (From Singulair) Allergy Rash Verified 07/22/25 10:43 morphine Allergy Other Verified 07/22/25 10:43 Penicillins (PCN) Allergy Unknown Verified 07/22/25 10:43 Seasonal Allergies: Uncoded Allergy NEEDS Verified 07/22/25 10:43 FOLLOW-UP benzalkonium AdvReac Mild skin Verified 07/22/25 10:45 ondansetron (From Zofran) AdvReac Mild Constipatio Verified 07/22/25 10:45 n clindamycin AdvReac Nausea/Vom/ Verified 07/22/25 10:43 Diarrhea doxycycline AdvReac Nausea Verified 07/22/25 10:43 [facility] AdvReac Hives Verified 07/22/25 10:43 prednisone AdvReac Other Verified 07/22/25 10:43 soap AdvReac Hives Verified 07/22/25 10:43 Family History Brother Hypertension Bipolar affect, depressed Alcoholism Mother Alcoholism Blood clot in vein Hypertension CVA (cerebral vascular accident) Seizures Father Cancer Hypertension Surgical History History of endoscopy History of colonoscopy No pertinent past surgical history Social History household members: none Smoking Status: Current every day smoker tobacco type: cigarettes Tobacco: How many years used: 24 second hand exposure: Yes alcohol intake: former year quit: 2020 substance use type: former substance user Date of last use: 2003; ACID, COCAINE, POT what type of physical activity do you participate in: walking frequency: daily seatbelt use: always do you feel safe at home: Yes ROS ROS ED Review of Systems ROS Unobtainable: other Constitutional Constitutional ED: Reports lethargy; Denies chills, fever(s), sweats or weight loss Eyes Eyes: Denies blurry vision, change in vision or diplopia ENT ENT ED: Reports other Details: Dental pain facial swelling ; Denies rhinorrhea or sore throat Cardiovascular Cardiovascular: Reports chest pain and racing heartbeat; Denies orthopnea Respiratory/Chest Respiratory/Chest: Reports dyspnea and dyspnea on exertion; Denies cough, orthopnea or sputum Gastrointestinal Gastrointestinal: Denies abdominal pain, diarrhea, nausea or vomiting Genitourinary Genitourinary ED: Denies dysuria, hematuria or urinary frequency Musculoskeletal Musculoskeletal: Denies arthralgias, back pain, myalgias or neck pain Integumentary Denies abscess, Abrasions or rash Neurologic Neurologic: Denies headache(s) or weakness Psychiatric Psychiatric: Denies anxiety, depression or suicidal thoughts Endocrine Endocrinology: Denies polydipsia, polyphagia or polyuria Hematologic/Lymphatic Hematologic/Lymphatic: Denies easy bleeding, easy bruising or lymphadenopathy Allergic/Immunologic Allergic/Immunologic ED: Denies mouth swelling, tongue swelling or urticaria EXAM Physical Exam Const Vital Signs: 07/22/25 10:46 Temperature 97.8 F Temperature Source Oral Pulse Rate 88 Respiratory Rate 18 Blood Pressure 136/93 H Blood Pressure Mean 107 Pulse Ox 100 Oxygen Delivery Method Room Air Positive well nourished and well developed General Appearance ED: well developed and NAD HEENT Reports TM's clear and moist mucous membranes HEENT Narrative: Right lower mandibular swelling. Broken and carried to tooth #32. Gingival erythema. There is no facial cellulitis. No trismus on exam. Floor the mouth is nontender and soft. normocephalic and atraumatic; Negative for trauma or tenderness Tympanic Membrane ED: Yes TM's clear Eyes PERRL and EOMs intact bilaterally General Eye ED: Negative for pale conjunctiva or scleral icterus Neck no lymphadenopathy, supple and no JVD General: Negative for tenderness Chest Wall inspection of chest normal and palpation of chest normal Chest: Negative for tenderness Resp normal respiratory effort and clear to auscultation bilaterally Effort and Inspection: Negative for respiratory distress or pain with movement Auscultation: Negative for rhonchi, wheezes or diminished lung sounds Cardio regular rate, regular rhythm, S1 normal heart sound, S2 normal heart sound and no murmurs Peripheral Pulses: pulses 2+ throughout GI normal to inspection, nondistended, normoactive bowel sounds, soft to palpation, non-tender, non-distended and no masses Back/Spine no CVA tenderness and no thoracic nor lumbar tenderness Extremity normal to inspection General Extremety ED: Negative for edema General Extremity: Negative for edema Neuro oriented x3, CN's II-XII intact bilaterally, no sensory deficits noted and gait normal Sensorium / Orientation: awake, alert, oriented to person, oriented to place and oriented to time Motor Exam: strength 5/5 throughout and strength abnormal Psych mental status grossly normal Skin no rashes or lesions noted and no wounds MDM MDM MDM Narrative Medical decision making narrative: Patient presents to the ER with suspected dental abscess that may be early. Recommended attempted incision and drainage to which she agreed. I used an 18- gauge needle to make a stab incision into the gingiva where I felt were most fluctuance. Very little purulent debris expressed with there was just mostly blood. This point we will stop the Keflex as I suspect clindamycin would be a better choice for her. She does listed as an allergy but she has nausea and diarrhea which is not a true allergy. I can treat her nausea with Zofran. Also will write a prescription for a few [place] for pain. Will advised to follow-up with dentist at the earliest possible time for definitive care. Discharge Plan Triage Chief Complaint: Edema Other Complaint: Dental ED Provider: Ganga Chambers Dx/Rx/DC Orders Clinical Impression: Abscess, dental, Dental caries Instructions: Dental Abscess, ED Abscess Incision And Drainage, ED Dental Pain, ED Dental Cavity Prescriptions: New clindamycin HCl [Cleocin HCl] 300 mg capsule 300 mg PO Q6H Qty: 40 0RF hydrocodone-acetaminophen 5-325 mg tablet 1 tab PO Q4H PRN PRN (Reason: Pain) 2 Days Qty: 10 0RF ondansetron 4 mg tablet,disintegrating 4 mg PO Q8H PRN PRN (Reason: Nausea) Qty: 10 0RF No Action multivitamin 1 EACH tablet 1 ea PO DAILY Vraylar 1.5 mg Capsule 1.5 mg PO DAILY lamotrigine [Lamictal] 25 mg Tablet 50 mg PO DAILY benztropine 1 mg tablet 1 mg PO DAILY naproxen 500 mg tablet 500 mg PO BID PRN PRN (Reason: Pain) Qty: 60 0RF Depo-SubQ provera 104 104 mg/0.65 mL syringe 104 mg subcut [id number] Qty: 0.65 3RF propranolol 10 mg tablet 10 mg PO DAILY Qty: 90 1RF loratadine 10 mg capsule 10 mg PO DAILY Qty: 90 3RF cholecalciferol (vitamin D3) [Vitamin D3] 50 mcg (2,000 unit) tablet 50 mcg PO DAILY Qty: 90 1RF pantoprazole 40 mg tablet,delayed release (DR/EC) 40 mg PO DAILY Qty: 90 1RF ciprofloxacin HCl 500 mg tablet 500 mg PO BID Qty: 14 0RF Primary Care Provider: Paul Ferrara Referrals: Paul Ferrara, DO [Primary Care Provider, Internal Medicine] Activity Restrictions/Additional Instructions: Follow-up with the dentist at the earliest possible time to have your root canal or dental extraction Print Language: Serbian Disposition Disposition: Home, Self Care
[2025-07-22 11:41] VITALS: BP 180/72; PULSE 80; RESP 18; TEMP 36.6; O2SAT 99
== END 2025-07-22 11:56 | disposition home or self-care (01) ==
LOC: ED 11:28
PROVIDERS: Emergency Provider Emergency Medicine; PCP Family Medicine; Visit Provider Emergency Medicine
DX: K04.7 Periapical abscess without sinus (principal); F17.210 Nicotine dependence, cigarettes, uncomplicated; K02.9 Dental caries, unspecified; I10 Essential (primary) hypertension; K21.9 Gastro-esophageal reflux disease without esophagitis; J45.909 Unspecified asthma, uncomplicated; R06.09 Other forms of dyspnea
CPT/HCPCS: 41800; 99284